=== PATIENT | female | born 1995 | race Caucasian/White ===

== ENCOUNTER 2020-08-12 05:39 | Inpatient (IN) | payer OTHER ==
[2020-08-12] MEDS ORDERED: KETOROLAC 30 MG/ML VIAL IM STA (06:35)
--- NOTE | 2020-08-12 06:38 | ED Physician Documentation ---
History of Present Illness - Stated complaint Stated Complaint: BACK PX - Chief complaint Chief Complaint: Back Pain - History obtained from History obtained from: Patient - Additonal information Additional information: 25-year-old woman with history of type 1 diabetes, gastroparesis, cyclic vomiting syndrome presents with nonbloody nonbilious nausea and vomiting and severe sudden onset left back pain radiating to the abdomen starting at rest while talking on the phone yesterday, waxing and waning but always present, better with movement and jiggling, sharp quality. Patient denies urinary sympt oms, fever, abdominal pain or diarrhea. LMP 2 days ago. Review of Systems Ten Systems: 10 systems reviewed and negative Constitutional: denies: Fever, Chills Cardiac: denies: Chest pain / pressure Respiratory: denies: Dyspnea GI: reports: Nausea, Vomiting. denies: Abdominal Pain Musculoskeletal: reports: Back pain PD PAST MEDICAL HISTORY - Past Medical History Past Medical History: Yes Endocrine/Autoimmune: Type 1 diabetes GI: Other Other Past Medical History: Gastroporesis; Cyclical vomiting from smoking marijuana. - Past Surgical History Past Surgical History: Yes General: Appendectomy - Present Medications Home Medications: Ambulatory Orders Medication Instructions Recorded Confirmed Insulin Glargine [Lantus Solostar] 15 units SUBQ QPM 08/12/20 08/12/20 Insulin Lispro [Humalog] SUBQ 08/12/20 Metoclopramide Inj [Reglan Inj] 5 mg PO DAILY 08/12/20 08/12/20 - Allergies Allergies/Adverse Reactions: Allergies Allergy/AdvReac Type Severity Reaction Status Date / Time ketorolac [From Toradol] Allergy Rash Verified 08/12/20 06:38 Milk Containing Products Allergy Unknown Verified 08/12/20 06:38 - Social History Does the pt smoke?: No Smoking Status: Never smoker Does the pt drink ETOH?: No Does the pt have substance abuse?: Yes Substance Use and Type: Marijuana - Immunizations Immunizations are current?: Yes - POLST Patient has POLST: No PD ED PE NORMAL - Vitals Vital signs reviewed: Yes - General General: Alert and oriented X 3, Other (patient continuously jiggling on the stretcher at rest, stating it makes her feel better. able to lie still for abdominal exam without difficulty.) - HEENT HEENT: Atraumatic, PERRL, EOMI - Neck Neck: Supple, no meningeal sign - Cardiac Cardiac: RRR - Respiratory Respiratory: No respiratory distress, Clear bilaterally - Abdomen Abdomen: Non tender, Non distended - Back Back: No CVA TTP, Other (L flank discomfort with palpation) - Derm Derm: Normal color, Warm and dry - Extremities Extremities: No deformity - Neuro Neuro: Alert and oriented X 3 - Psych Psych: Normal mood, Normal affect Results - Vitals Vitals: Vital Signs - 24 hr 08/12/20 08/12/20 05:50 07:43 Temperature 36.0 C L Heart Rate 116 H 109 H Respiratory 18 20 Rate Blood Pressure 128/73 113/63 O2 Saturation 99 100 Oxygen O2 Source Room air - Labs Labs: Laboratory Tests 08/12/20 08/12/20 08/12/20 06:35 06:35 07:15 WBC 9.9 RBC 4.18 L Hgb 10.5 L Hct 34.0 L MCV 81.3 MCH 25.1 L MCHC 30.9 L RDW 15.2 H Plt Count 329 MPV 8.9 Neut # (Auto) 7.6 H Lymph # (Auto) 1.8 [place] # (Auto) 0.5 Eos # (Auto) 0.0 Baso # (Auto) 0.0 Absolute Nucleated RBC 0.00 Nucleated RBC % 0.0 VBG pH VBG pCO2 VBG pO2 VBG HCO3 VBG Total CO2 VBG O2 Saturation VBG Base Excess Sodium Potassium Chloride Carbon Dioxide Anion Gap BUN Creatinine Estimated GFR (MDRD) Glucose POC Whole Bld Glucose Calcium Total Bilirubin AST ALT Alkaline Phosphatase Total Protein Albumin Globulin Albumin/Globulin Ratio Lipase Urine Color YELLOW Urine Clarity CLEAR Urine pH 5.5 Ur Specific [place] >=1.030 H Urine Protein NEGATIVE Urine Glucose (UA) 500 H Urine Ketones >=80 H Urine Occult Blood TRACE-INTA Urine Nitrite NEGATIVE Urine Bilirubin NEGATIVE Urine Urobilinogen 0.2 (NORMAL) Ur Leukocyte Esterase NEGATIVE Urine RBC 0-5 Urine WBC 0-3 Ur Squamous Epith Cells RARE Squamous Urine Bacteria Rare Urine Culture Comments NOT INDICATED Urine HCG, Qual NEGATIVE Urine Opiates Screen NEGATIVE Ur Oxycodone Screen NEGATIVE Urine Methadone Screen NEGATIVE Ur Propoxyphene Screen NEGATIVE Ur Barbiturates Screen NEGATIVE Ur Tricyclics Screen NEGATIVE Ur Phencyclidine Scrn NEGATIVE Ur Amphetamine Screen NEGATIVE U Methamphetamines Scrn NEGATIVE U Benzodiazepines Scrn NEGATIVE Urine Cocaine Screen NEGATIVE U Cannabinoids Screen POSITIVE H Serum Ketones 04/24/21 04/24/21 04/24/21 07:15 07:15 08:00 WBC RBC Hgb Hct MCV MCH MCHC RDW Plt Count MPV Neut # (Auto) Lymph # (Auto) [place] # (Auto) Eos # (Auto) Baso # (Auto) Absolute Nucleated RBC Nucleated RBC % VBG pH 7.252 L VBG pCO2 32.8 L VBG pO2 42.4 VBG HCO3 14.1 L VBG Total CO2 15.1 L VBG O2 Saturation 78.5 VBG Base Excess -11.9 L Sodium 135 Potassium 4.2 Chloride 103 Carbon Dioxide 12 L* Anion Gap 20.0 H BUN 12 Creatinine 0.7 Estimated GFR (MDRD) 101 Glucose 275 H POC Whole Bld Glucose Calcium 9.3 Total Bilirubin 1.8 H AST 17 ALT 16 Alkaline Phosphatase 90 Total Protein 7.5 Albumin 4.4 Globulin 3.1 Albumin/Globulin Ratio 1.4 Lipase 16 L Urine Color Urine Clarity Urine pH Ur Specific [place] Urine Protein Urine Glucose (UA) Urine Ketones Urine Occult Blood Urine Nitrite Urine Bilirubin Urine Urobilinogen Ur Leukocyte Esterase Urine RBC Urine WBC Ur Squamous Epith Cells Urine Bacteria Urine Culture Comments Urine HCG, Qual Urine Opiates Screen Ur Oxycodone Screen Urine Methadone Screen Ur Propoxyphene Screen Ur Barbiturates Screen Ur Tricyclics Screen Ur Phencyclidine Scrn Ur Amphetamine Screen U Methamphetamines Scrn U Benzodiazepines Scrn Urine Cocaine Screen U Cannabinoids Screen Serum Ketones MODERATE H 08/12/20 08:03 WBC RBC Hgb Hct MCV MCH MCHC RDW Plt Count MPV Neut # (Auto) Lymph # (Auto) [place] # (Auto) Eos # (Auto) Baso # (Auto) Absolute Nucleated RBC Nucleated RBC % VBG pH VBG pCO2 VBG pO2 VBG HCO3 VBG Total CO2 VBG O2 Saturation VBG Base Excess Sodium Potassium Chloride Carbon Dioxide Anion Gap BUN Creatinine Estimated GFR (MDRD) Glucose POC Whole Bld Glucose 270 H Calcium Total Bilirubin AST ALT Alkaline Phosphatase Total Protein Albumin Globulin Albumin/Globulin Ratio Lipase Urine Color Urine Clarity Urine pH Ur Specific [place] Urine Protein Urine Glucose (UA) Urine Ketones Urine Occult Blood Urine Nitrite Urine Bilirubin Urine Urobilinogen Ur Leukocyte Esterase Urine RBC Urine WBC Ur Squamous Epith Cells Urine Bacteria Urine Culture Comments Urine HCG, Qual Urine Opiates Screen Ur Oxycodone Screen Urine Methadone Screen Ur Propoxyphene Screen Ur Barbiturates Screen Ur Tricyclics Screen Ur Phencyclidine Scrn Ur Amphetamine Screen U Methamphetamines Scrn U Benzodiazepines Scrn Urine Cocaine Screen U Cannabinoids Screen Serum Ketones Procedures - General procedure General procedure: 22-gauge IV placed in the right forearm using ultrasound guidance, successful on the first attempt with blood return. PD MEDICAL DECISION MAKING - ED course ED course: 25-year-old woman with history of type 1 diabetes, gastroparesis, cyclic vomiting syndrome presents with nausea and left mid back pain. She has an DAYA form with 17 ED visits in the past year for back pain/abd pain/nausea/vomiting, but this is our first record of her visiting our ED. Will obtain urinalysis to eval for ketones or infection, reevaluate. d/w patient who states she actually was seen at [facility] yesterday for this same issue, had bloodwork and was given dilaudid. According to her DAYA I provided education regarding appropriate use of ED vs walk-in clinic/urgent care, encouraging follow up with her primary doctor. I offered social work evaluation and she accepted. d/w patient in regards to ketones and glucose in urine and need for further lab testing for complications of her diabetes. Mild hyperglycemia on cmp with low co2, possibly related to anxiety attack she reports having prior to arrival. Her nausea has improved with odt zofran. Still with jiggling behavior. Will eval serum ketones and pH. Patient meets criteria for euglycemic DKA, likely given her decreased po intake and vomiting 2/2 cyclic vomiting syndrome. Still with flank/back pain. I ordered a CT to eval for kidney stones but our tech says the CT scanner is down. Will do bedside sono to eval for hydro. Bedside sono with no evidence of hydro. d/w Dr. Angel who will admit to ICU. - Critical Care Time(min): 30 Time Includes: Direct patient care, Review records, Reassess patient, Document care, Coordinate care, Medical consult Data interpretation: Labs, Pulse ox Departure - Departure Disposition: 66 [facility] DC/Xfer Clinical Impression: Diabetic ketoacidosis, Back pain, Nausea Condition: Stable
[2020-08-12] MEDS ORDERED: ONDANSETRON ODT 4 MG TABLET TL STA (06:45)
[2020-08-12] MEDS ORDERED: IBUPROFEN 600 MG TABLET PO STA (06:45)
[2020-08-12 06:47] LABS: MUDS CUTOFF CONCENTRATIONS CUTOFF CONC BELOW:
[2020-08-12 06:48] LABS: BILIRUBIN,URINE NEGATIVE (NEGATIVE); GLUCOSE, URINE (UA) 500 mg/dL (NEGATIVE); KETONES,URINE (UA) >=80 mg/dL (NEGATIVE); NITRITE,URINE NEGATIVE (NEGATIVE); OCCULT BLOOD,URINE TRACE-INTA (NEGATIVE); PH,URINE 5.5 PH (5.0-7.5); PROTEIN,URINE NEGATIVE (NEGATIVE); UROBILINOGEN,URINE 0.2 (NORMAL) E.U./dL (NORMAL)
[2020-08-12 06:52] LABS: HCG UR QUAL NEGATIVE
[2020-08-12 06:59] LABS: AMPHETAMINE SCREEN,URINE NEGATIVE (NEGATIVE); BARBITURATE SCREEN,UR NEGATIVE (NEGATIVE); BENZODIAZEPINES SCREEN, URINE NEGATIVE (NEGATIVE); CLARITY,URINE CLEAR (CLEAR); COCAINE SCREEN URINE NEGATIVE (NEGATIVE); LEUKOCYTE ESTERASE, URINE NEGATIVE (NEGATIVE); METHADONE SCREEN, URINE NEGATIVE (NEGATIVE); METHAMPHETAMINES SCREEN, URINE NEGATIVE (NEGATIVE); OPIATE SCREEN, URINE NEGATIVE (NEGATIVE); OXYCODONE SCREEN, URINE NEGATIVE (NEGATIVE); PROPOXYPHENE SCREEN, URINE NEGATIVE (NEGATIVE); THC CANNABINOID SCREEN, URINE POSITIVE (NEGATIVE); TRICYCLIC ANTIDEPRESSANT,URINE NEGATIVE (NEGATIVE)
[2020-08-12 07:00] LABS: BACTERIA,URINE Rare /HPF (None Seen); RBC,URINE 0-5 /HPF (0-5); SQUAMOUS EPITHELIAL CELL,UR RARE Squamous (<= Few); WBC,URINE 0-3 /HPF (0-5)
[2020-08-12] MEDS ORDERED: hydrOXYzine PAMOATE 25 MG CAPSULE PO STA (07:07)
[2020-08-12 07:39] LABS: ALBUMIN 4.4 g/dL (3.2-5.5); ALBUMIN/GLOBULIN RATIO 1.4 (1.0-2.2); BILIRUBIN,TOTAL 1.8 mg/dL (0.2-1.0); CALCIUM 9.3 mg/dL (8.5-10.3); CREATININE 0.7 mg/dL (0.4-1.0); POTASSIUM 4.2 mmol/L (3.5-5.0); TOTAL PROTEIN 7.5 g/dL (6.7-8.2)
[2020-08-12] MEDS ORDERED: SODIUM CHLORIDE 0.9% 1,000 ML IV STA (07:47)
[2020-08-12 07:55] LABS: BASOPHILS % (AUTO) 0.2 %; EOSINOPHILS % (AUTO) 0.1 %; HGB - HEMOGLOBIN 10.5 g/dL (12.0-16.0); LYMPHOCYTES # (AUTO) 1.8 10^3/uL (1.5-3.5); LYMPHOCYTES % (AUTO) 18.2 %; MEAN CORPUSCULAR HEMOGLOBIN 25.1 pg (27.0-31.0); MEAN CORPUSCULAR HGB CONC 30.9 g/dL (32.0-36.0); MEAN CORPUSCULAR VOLUME 81.3 fL (81.0-99.0); MEAN PLATELET VOLUME 8.9 fL (7.9-10.8); MONOCYTES # (AUTO) 0.5 10^3/uL (0.0-1.0); MONOCYTES % (AUTO) 4.6 %; NEUTROPHILS # (AUTO) 7.6 10^3/uL (1.5-6.6); NEUTROPHILS % (AUTO) 76.4 %; PLT - PLATELET COUNT 329 10^3/uL (130-450); RED BLOOD COUNT 4.18 10^6/uL (4.20-5.40); RED CELL DISTRIBUTION WIDTH 15.2 % (12.0-15.0); WHITE BLOOD COUNT 9.9 x10^3/uL (4.8-10.8)
[2020-08-12 08:09] LABS: VBG BASE EXCESS -11.9 mmol/L (-2 - +2); VBG HCO3 14.1 mmol/L (23-28); VBG OXYGEN SATURATION 78.5 % (60-80); VBG PCO2 32.8 mmHg (41-51); VBG PH 7.252 (7.31-7.41); VBG PO2 42.4 mmHg (25-47); VBG TOTAL CO2 15.1 mmol/L (24-29)
[2020-08-12] MEDS ORDERED: METOCLOPRAMIDE 10 MG/2 ML VIAL IVP STA (08:17)
[2020-08-12] MEDS ORDERED: LORazepam 1 MG TABLET PO STA (08:17)
[2020-08-12] MEDS ORDERED: MORPHINE 2 MG/ML CARPUJECT IVP STA (08:17)
[2020-08-12] MEDS ORDERED: POTASSIUM CHLOR 20 MEQ/100 ML 20 MEQ/100 ML BAG IV ONE (08:29)
[2020-08-12] MEDS ORDERED: INSULIN REGULAR HUMAN 100 UNIT in SODIUM CHLORIDE 0.9% 100ML 99 ML IV STA (08:33)
[2020-08-12] MEDS: POTASSIUM CHLOR 10 MEQ/100 ML 10 MEQ/100 ML BAG IV SCH ×2 (08:45→09:45)
[2020-08-12] MEDS ORDERED: ACETAMINOPHEN 325 MG TABLET PO PRN (08:46)
[2020-08-12] MEDS ORDERED: HYDROmorphone 0.5 MG/0.5 ML SYRINGE IVP PRN (08:46)
[2020-08-12] MEDS ORDERED: PROCHLORPERAZINE 10 MG/2 ML VIAL IVP PRN (08:46)
[2020-08-12] MEDS ORDERED: SODIUM CHLORIDE FLUSH 0.9% 10 ML SYRINGE IVP PRN (08:46)
--- NOTE | 2020-08-12 08:58 | HISTORY & PHYSICAL EXAMINATION ---
History of Present Illness - Admitted From Admitted From:: ER - History of Present Illness HPI Comment/Other: This is a 25-year-old white female with no prior admissions here. She has a history of diabetes mellitus type 1, previous marijuana use, diagnosed with cyclical vomiting because of marijuana. She stopped using it and then resumed smoking marijuana 4 days ago. This resulted in nausea vomiting for which she went to [facility] ER 2 days ago. Apparently she had labs done but was sent home, not admitted there. She then developed back pain yesterday, which she gets with her prior episodes of cyclical vomiting and continued having nausea, vomiting, dry heaves and could keep nothing down, so came to our ER. Work-up in the ER shows that she is in DKA with a serum pH of 7.25, serum bicarb of 12, glucose of 275, moderate ketones present in the serum and the urine. Toxicology shows cannabis. Ultrasound retroperitoneal was done because of the back pain and this showed no hydronephrosis, no stones, is presumed to be her same symptom that she gets when she has cyclical nausea vomiting. A CT was not available (machine broken). Patient is being admitted to the ICU for DKA management. History - Past Medical History Endocrine/Autoimmune: reports: Type 1 diabetes GI: reports: Other Psych: reports: Anxiety MRSA Hx?: No Other Past Medical History: Gastroporesis; Cyclical vomiting from smoking marijuana. - Past Surgical History General: reports: Appendectomy - Family & Social History Family History: Mother: Alive and Well (1 gradparent has DM), Father: Alive and Well Living arrangement: At home Living Situation: With spouse/s.o. Social History Notes: No cigarette smoking history and no alcohol abuse history. 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 - Substance History Use: Uses substance without health or social issues: Cannabis - POLST Patient has POLST: No Meds/Allgy - Home Medications Home Medications: Ambulatory Orders Medication Instructions Recorded Confirmed Insulin Glargine [Lantus Solostar] 15 units SUBQ QPM 08/12/20 08/12/20 Insulin Lispro [Humalog] 0 units SUBQ .SLIDING SCALE 08/12/20 08/12/20 Metoclopramide Inj [Reglan Inj] 5 mg PO DAILY 08/12/20 08/12/20 - Allergies Allergies/Adverse Reactions: Allergies Allergy/AdvReac Type Severity Reaction Status Date / Time ketorolac [From Toradol] Allergy Rash Verified 08/12/20 06:38 Milk Containing Products Allergy Unknown Verified 08/12/20 06:38 Review of Systems - Constitutional Constitutional: reports: Weakness - Gastrointestinal Gastrointestinal: reports: Nausea, Vomiting - Musculoskeletal Musculoskeletal: reports: Back pain (This is her usual symptom, according to the patient, when she has cyclical nausea and vomiting. She "shakes" her body rhythmically, to distract herself from the back pain, her described.) - All Other Systems All Other Systems: reports: Reviewed and negative Exam - Vital Signs Vital Signs: Vital Signs x48h Temp Pulse Resp BP Pulse Ox 08/12/20 07:43 109 H 20 113/63 100 08/12/20 05:50 36.0 C L 116 H 18 128/73 99 - Physical Exam General Appearance: positive: Severe distress (She islaying in R lat decubitus position, rocking back and forth rapidly rhythmically but stops when her name is called) Eyes Bilateral: positive: Normal inspection, EOMI ENT: positive: Dry mucous membranes Neck: positive: Nml inspection, No JVD Respiratory: positive: No respiratory distress, Breath sounds nml Cardiovascular: positive: Regular rate & rhythm, No murmur Abdomen: positive: Non-tender, No distention, Other (No guarding or rebo undDiminished bowel sounds,) Back: positive: CVA tenderness (L) Skin: positive: Warm, Dry, Pallor Extremities: positive: Non-tender, No pedal edema Neurologic/Psychiatric: positive: Oriented x3 Conclusion/Plan - Problem List (1) Diabetic ketoacidosis Conclusion/Plan: The DKA protocol: IV saline, with D5 because her glucose is already near 200, IV insulin drip, titrate per protocol, follow serum ketones, serum pH, POC glucose. (2) Cyclical vomiting with nausea Conclusion/Plan: Continue with her scheduled Reglan for gastroparesis but also give antiemetics Zofran and Compazine alternating to control her symptom and continue IV fluids. Clear liquids will be started when she thinks she can try liquids orally. (3) Back pain Conclusion/Plan: She is in significant pain, it is in the left flank area. Will increase Dilaudid from every 6 hours prn to every 2 hours as needed. When the CT scanner is working (it was broken when she was in the ER), will order abdomen and pelvis CT with contrast, evaluating for pathology, specifically concerned about pyelonephritis, also pancreatitis. Qualifiers: Back pain laterality: left (4) Marijuana use Conclusion/Plan: The ER that she had restarted using it 4 days ago. Her told me she has not used since she quit. Cannabis was present on her toxicology screen. When she is more clinically stable, will request social work consult regarding discouraging marijuana use. (5) Gastroparesis diabeticorum Conclusion/Plan: She carries this diagnosis, per the records obtained from the ER/[facility] list/prior admissions at [facility] and [facility]. We will continue her Reglan scheduled, before meals (6) Anemia Conclusion/Plan: Potentially this is hemodilution all but will also evaluate for low levels of B12, folate and iron stores and replace if low. (7) Anxiety Conclusion/Plan: Per the ER provider, the patient was extremely anxious at presentation and needed to get Atarax which had no effect and then got Ativan and was able to relax. Currently she is agitated and in distress from pain. We will treat the underlying problem, using IV Dilaudid for pain control and anti-emetics for N/V. - Lab Results Fish Bones: 08/12/20 07:15 08/12/20 14:13
[2020-08-12] MEDS: D5NS W/20 MEQ KCL 1,000 ML IV SCH ×2 (09:00→17:00)
[2020-08-12] MEDS: INSULIN REGULAR HUMAN 100 UNIT in SODIUM CHLORIDE 0.9% 100ML 99 ML IV SCH (09:15)
[2020-08-12] MEDS: SODIUM CHLORIDE FLUSH 0.9% 10 ML SYRINGE IVP SCH ×3 (09:15→21:14)
[2020-08-12 09:54] LABS: BUN - BLOOD UREA NITROGEN 11 mg/dL (6-20); CALCIUM 8.5 mg/dL (8.5-10.3); CHLORIDE 104 mmol/L (101-111); CREATININE 0.7 mg/dL (0.4-1.0); GFR - MDRD 101 (>89); GLUCOSE 269 mg/dL (70-100); MAGNESIUM 1.8 mg/dL (1.7-2.8); POTASSIUM 4.3 mmol/L (3.5-5.0); SODIUM 133 mmol/L (135-145)
[2020-08-12 09:55] LABS: CARBON DIOXIDE - CO2 12 mmol/L (21-32); KETONES, SERUM (ACETEST) MODERATE (NEGATIVE)
[2020-08-12] MEDS: FAMOTIDINE 20 MG/2 ML VIAL IVP SCH ×2 (10:00→20:56)
[2020-08-12 10:19] LABS: B. PARAPERTUSSIS- RESP PCR PAN NOT DETECTED; B. PERTUSSIS- RESP PCR PANEL NOT DETECTED; C. PNEUMONIAE- RESP PCR PANEL NOT DETECTED; CORONAVIRUS 229E-RESP PCR NOT DETECTED; CORONAVIRUS HKU1-RESP PCR NOT DETECTED; CORONAVIRUS NL63-RESP PCR NOT DETECTED; CORONAVIRUS OC43-RESP PCR NOT DETECTED; HUMAN METAPNEUMOVIRUS NOT DETECTED; INFLUENZA A- RESP PCR PANEL NOT DETECTED; INFLUENZA B - RESP PCR PANEL NOT DETECTED; M. PNEUMONIAE- RESP PCR PANEL NOT DETECTED; PARAINFLUENZA VIRUS 1 NOT DETECTED; PARAINFLUENZA VIRUS 2 NOT DETECTED; PARAINFLUENZA VIRUS 3 NOT DETECTED; PARAINFLUENZA VIRUS 4 NOT DETECTED; RHINOVIRUS/ENTEROVIRUS NOT DETECTED; RSV- RESP PCR PANEL NOT DETECTED; SARS-CoV-2 -RESP PCR PANEL NOT DETECTED
[2020-08-12] MEDS: METOCLOPRAMIDE 10 MG/2 ML VIAL IVP SCH ×2 (10:55→16:07)
[2020-08-12 11:07] LABS: KETONES, SERUM (ACETEST) SMALL (NEGATIVE)
[2020-08-12 11:12] LABS: BUN - BLOOD UREA NITROGEN 10 mg/dL (6-20); CALCIUM 8.3 mg/dL (8.5-10.3); CARBON DIOXIDE - CO2 13 mmol/L (21-32); CHLORIDE 107 mmol/L (101-111); CREATININE 0.7 mg/dL (0.4-1.0); GFR - MDRD 101 (>89); GLUCOSE 190 mg/dL (70-100); POTASSIUM 4.5 mmol/L (3.5-5.0); SODIUM 133 mmol/L (135-145)
[2020-08-12 12:23] LABS: KETONES, SERUM (ACETEST) SMALL (NEGATIVE)
[2020-08-12 12:27] LABS: BUN - BLOOD UREA NITROGEN 10 mg/dL (6-20); CALCIUM 8.7 mg/dL (8.5-10.3); CARBON DIOXIDE - CO2 16 mmol/L (21-32); CHLORIDE 108 mmol/L (101-111); CREATININE 0.6 mg/dL (0.4-1.0); GFR - MDRD 121 (>89); GLUCOSE 118 mg/dL (70-100); MAGNESIUM 1.8 mg/dL (1.7-2.8); POTASSIUM 4.1 mmol/L (3.5-5.0); SODIUM 136 mmol/L (135-145)
[2020-08-12] MEDS ORDERED: POTASSIUM CHLOR 10 MEQ/100 ML 10 MEQ/100 ML BAG IV ONE (13:00)
[2020-08-12 13:18] LABS: VBG BASE EXCESS -8.8 mmol/L (-2 - +2); VBG HCO3 17.9 mmol/L (23-28); VBG OXYGEN SATURATION 73.7 % (60-80); VBG PCO2 41.8 mmHg (41-51); VBG PH 7.25 (7.31-7.41); VBG PO2 37.2 mmHg (25-47); VBG TOTAL CO2 19.2 mmol/L (24-29)
[2020-08-12 13:50] LABS: ESTIMATED AVERAGE GLUCOSE 200 mg/dL (70-100); HEMOGLOBIN A1c% 8.6 % (4.27-6.07)
[2020-08-12 14:23] LABS: KETONES, SERUM (ACETEST) SMALL (NEGATIVE)
[2020-08-12 14:25] LABS: GLUCOSE 85 mg/dL (70-100); POTASSIUM 4.3 mmol/L (3.5-5.0)
[2020-08-12] MEDS ORDERED: SODIUM CHLORIDE 0.9% 1,000 ML IV SCH (16:00)
[2020-08-12] MEDS: HYDROmorphone 0.5 MG/0.5 ML SYRINGE IVP PRN ×2 (16:05→21:12)
[2020-08-12 20:07] LABS: CALCIUM 8.8 mg/dL (8.5-10.3); CREATININE 0.5 mg/dL (0.4-1.0); POTASSIUM 3.9 mmol/L (3.5-5.0)
[2020-08-12] MEDS ORDERED: INSULIN GLARGINE 300 UNIT/3 ML PEN SUBQ SCH (21:00)
[2020-08-13] MEDS: HYDROmorphone 0.5 MG/0.5 ML SYRINGE IVP PRN ×4 (02:38→22:18)
[2020-08-13] MEDS: ONDANSETRON 4 MG/2 ML VIAL IVP PRN ×3 (04:51→22:21)
[2020-08-13 05:01] LABS: BASOPHILS % (AUTO) 0.1 %; HCT - HEMATOCRIT 30.1 % (37.0-47.0); HGB - HEMOGLOBIN 9.5 g/dL (12.0-16.0); LYMPHOCYTES # (AUTO) 2.7 10^3/uL (1.5-3.5); LYMPHOCYTES % (AUTO) 39.8 %; MEAN CORPUSCULAR HEMOGLOBIN 25.5 pg (27.0-31.0); MEAN CORPUSCULAR HGB CONC 31.6 g/dL (32.0-36.0); MEAN CORPUSCULAR VOLUME 80.7 fL (81.0-99.0); MEAN PLATELET VOLUME 8.4 fL (7.9-10.8); MONOCYTES # (AUTO) 0.8 10^3/uL (0.0-1.0); MONOCYTES % (AUTO) 12.2 %; NEUTROPHILS # (AUTO) 3.2 10^3/uL (1.5-6.6); NEUTROPHILS % (AUTO) 47.6 %; PLT - PLATELET COUNT 274 10^3/uL (130-450); RED BLOOD COUNT 3.73 10^6/uL (4.20-5.40); RED CELL DISTRIBUTION WIDTH 15.1 % (12.0-15.0); WHITE BLOOD COUNT 6.8 x10^3/uL (4.8-10.8)
[2020-08-13 05:04] LABS: KETONES, SERUM (ACETEST) SMALL (NEGATIVE)
[2020-08-13 05:11] LABS: BUN - BLOOD UREA NITROGEN 5 mg/dL (6-20); CALCIUM 8.4 mg/dL (8.5-10.3); CARBON DIOXIDE - CO2 21 mmol/L (21-32); CHLORIDE 105 mmol/L (101-111); CREATININE 0.5 mg/dL (0.4-1.0); GFR - MDRD 149 (>89); GLUCOSE 82 mg/dL (70-100); LIPASE 17 U/L (22-51); POTASSIUM 3.3 mmol/L (3.5-5.0); SODIUM 136 mmol/L (135-145)
[2020-08-13] MEDS ORDERED: POTASSIUM PHOSPHATE 15 MMOL in SODIUM CHLORIDE 0.9% 250 ML IV ONE (05:57)
[2020-08-13] MEDS: INSULIN REGULAR HUMAN 100 UNIT in SODIUM CHLORIDE 0.9% 100ML 99 ML IV SCH (06:12)
[2020-08-13] MEDS: METOCLOPRAMIDE 10 MG/2 ML VIAL IVP SCH ×2 (06:25→11:00)
[2020-08-13] MEDS ORDERED: POTASSIUM CHLORIDE 20 MEQ TABLET PO ONE (08:00)
[2020-08-13] MEDS ORDERED: POTASSIUM CHLORIDE 20 MEQ/15 ML UDC PO SCH (08:15)
[2020-08-13] MEDS: SODIUM CHLORIDE FLUSH 0.9% 10 ML SYRINGE IVP SCH ×2 (08:23→17:01)
[2020-08-13] MEDS: FAMOTIDINE 20 MG/2 ML VIAL IVP SCH (08:23)
--- NOTE | 2020-08-13 08:32 | PROVIDER PROGRESS NOTE ---
Assessment/Plan - Problem List (1) Diabetes mellitus, insulin dependent (IDDM), uncontrolled Assessment/Plan: Her DKA has resolved. She can be moved out of the ICU to [facility] status. Her A1c came back at 8.6 indicating fair control of glucose. We will institute her long-acting insulin and continue sliding scale insulin, advance her diet with each meal. (2) Cyclical vomiting with nausea Assessment/Plan: N/V has resolved at rest, but nausea present whem she tries to take food (pureed). Will advance her diet as tolerated. Start carb controlled diet. We will order social work consult regarding stopping marijuana use which causes her cyclical vomiting. (3) Back pain Qualifiers: Back pain laterality: left Assessment/Plan: The CT abdomen was benign (showed that her appendix is out and has an IUD). She is still getting mild pain in that area and describes, in more detail today, that this happens to her after she has been vomiting and dry retching a long time, in the past. Continue iv Dilaudid prn pain. Continue anti-emetics iv prn nausea. (4) Marijuana use Assessment/Plan: This has been documented to cause her cyclical vomiting. We will order social work consult to assist in helping with this possible addiction. (5) Gastroparesis diabeticorum Assessment/Plan: Her symptom of nausea whenever she tries to swallow (pured food), is likely from gastroparesis and the recent DKA. Reglan AC has been ordered IV Will change to p.o. and continue it (6) Anemia Assessment/Plan: Serum B12, folate levels and iron stores were checked and showed adequate B12, Folate and iron stores. This is hemodilutional therefore. (7) Anxiety Assessment/Plan: According to the ER provider she was very anxious at admission. Social work to please address this as well (8) Diabetic ketoacidosis Assessment/Plan: Resolved - Current Meds Current Meds: Current Medications Generic Name Dose Route Start Last Admin Trade Name Freq PRN Reason Stop Dose Admin Famotidine 20 mg 08/12/20 09:00 08/13/20 08:23 Famotidine 20 Mg/2 Ml Vial IVP 20 mg BID LETICIA Administration Hydromorphone HCl 0.5 mg 08/12/20 15:53 08/13/20 06:54 Hydromorphone 0.5 Mg/0.5 Ml Syringe IVP 0.5 mg Q2H PRN Administration Pain 8 to 10 Insulin Human Regular 100 unit 100 mls @ 5.352 mls/hr 08/12/20 09:00 08/13/20 06:12 / Sodium Chloride IV Not Given .[id number] LETICIA Protocol 5.352 UNIT/HR Potassium Phosphate 15 mmol/ 255 mls @ 63 mls/hr 08/13/20 05:57 08/13/20 06:25 Sodium Chloride IV 08/13/20 09:59 63 mls/hr ONCE ONE Administration Protocol Metoclopramide HCl 5 mg 08/12/20 11:00 08/13/20 06:25 Metoclopramide 10 Mg/2 Ml Vial IVP 5 mg AC LETICIA Administration Ondansetron HCl 4 mg 08/12/20 08:46 08/13/20 04:51 Ondansetron 4 Mg/2 Ml Vial IVP 4 mg Q6HR PRN Administration Nausea / Vomiting Sodium Chloride 10 ml 08/12/20 09:00 08/13/20 08:23 Sodium Chloride Flush 0.9% 10 Ml Syringe IVP 10 ml 0100,0900,1700 LETICIA Administration - Lab Result Fish Bone Diagrams: 08/13/20 04:43 08/13/20 04:43 - Additional Planning My Orders: My Active Orders 08/12/20 08:46 Activity Orders [RC] Q2HR Blood Glucose POC [RC] 0000,0600,1200,1800 Daily Weight [RC] 0600 IO [RC] Q1HR Initiate Bowel Care Protocol [RC] QSHIFT Initiate ICU Electrolyte Prot. [RC] .protocol Initiate Personal Care Protoco [RC] .protocol Turn and Reposition [RC] PRN Vital Signs [RC] Q4HR Acetaminophen [Tylenol] 650 mg PO Q4HR PRN Ondansetron Inj [Zofran Inj] 4 mg IVP Q6HR PRN Prochlorperazine Inj [Compazine Inj] 10 mg IVP Q6HR PRN Sodium Chloride Flush 0.9% [Normal Saline Flush 0.9%] 10 ml IVP PRN PRN Code Status [OTHERS] Routine Condition of Patient [OTHERS] Routine DVT Prophylaxis [OTHERS] Routine 08/12/20 08:48 Oxygen Therapy [RC] .PRN Telemetry- [RC] Q4HR 08/12/20 08:49 HARRY Perez [] QSHIFT 08/12/20 08:50 Initiate Line Care Protocol [] [facility] 08/12/20 08:51 Initiate DKA RN Protocol [RC] .protocol Initiate Hypoglycemia Protocol [RC] .protocol Notify Provider - Specific Ins [RC] PRN Straight Catheter Insertion [] PRN 08/12/20 09:00 Famotidine [Pepcid] 20 mg IVP BID Sodium Chloride 0.9% 100Ml [Normal Saline 0.9% 100Ml] 99 ml Insulin Regular Human [NovoLIN R] 100 unit IV 5.352 unit/hr Sodium Chloride Flush 0.9% [Normal Saline Flush 0.9%] 10 ml IVP 0100,0900,1700 08/12/20 11:00 Metoclopramide Inj [Reglan Inj] 5 mg IVP AC 08/12/20 15:53 HYDROmorphone 0.5MG SYRINGE [Dilaudid Inj Syringe] 0.5 mg IVP Q2H PRN 08/12/20 Dinner Clear Liquid Diet [DIET] 08/13/20 05:57 Potassium Phosphate 15 mmol Sodium Chloride 0.9% [Normal Saline 0.9%] 250 ml IV ONCE 08/13/20 08:30 Miscellaenous Nursing Order [] [facility] 08/13/20 Lunch Dysphagia Puree Diet [DIET] 08/13/20 Dinner DIET [Soft (Low Fiber) Diet] [DIET] 08/14/20 05:00 BMP - BASIC METABOLIC PANEL [CHEM] DAILYLAB CBC - COMP BLD CT W/AUTO DIFF [HEME] DAILYLAB MAGNESIUM [CHEM] DAILYLAB PHOSPHORUS [CHEM] DAILYLAB 08/15/20 05:00 CBC - COMP BLD CT W/AUTO DIFF [HEME] DAILYLAB MAGNESIUM [CHEM] DAILYLAB Subjective - Subjective Patient Reports: Feeling Better (Still nauseated when tries to eat (pureed food). No more L flank pain.) Objective Vital Signs: Vital Signs - 24 hr 08/12/20 08/12/20 08/12/20 09:20 10:00 12:00 Temperature 36.8 C Heart Rate [ 83 85 90 Monitoring electrodes] Respiratory 16 16 17 Rate Blood Pressure 116/70 95/61 122/86 H [Left Brachial artery] Blood Pressure [Right Brachial artery] O2 Saturation 100 99 99 08/12/20 08/12/20 08/12/20 15:00 17:56 19:17 Temperature 36.6 C 98.3 C H 36.8 C Heart Rate [ 92 87 91 Monitoring electrodes] Respiratory 14 16 17 Rate Blood Pressure 102/67 105/76 109/76 [Left Brachial artery] Blood Pressure [Right Brachial artery] O2 Saturation 100 99 100 08/12/20 08/12/20 08/13/20 21:04 23:32 02:38 Temperature 36.9 C 36.4 C L 98.6 C H Heart Rate [ 87 97 105 H Monitoring electrodes] Respiratory 21 15 26 H Rate Blood Pressure 116/79 [Left Brachial artery] Blood Pressure 122/80 115/83 H [Right Brachial artery] O2 Saturation 100 100 100 08/13/20 05:00 Temperature Heart Rate [ 72 Monitoring electrodes] Respiratory 14 Rate Blood Pressure [Left Brachial artery] Blood Pressure 131/87 H [Right Brachial artery] O2 Saturation 100 Oxygen O2 Source Room air I&O (Last 24 Hrs): Intake and Output Totals x24h 08/11/20 08/12/20 08/13/20 23:59 23:59 23:59 Intake Total 3873.664 342.767 Output Total 0 0 Balance 3873.664 342.767 General: Alert, Oriented x3 HEENT: Mucous membr. moist/pink Neck: Supple, No JVD Neuro: Alert, Non Focal Cardiovascular: Regular rate, No murmurs Respiratory: No respiratory distress Abdomen: Soft, No tenderness Extremities: No edema - Results Results: Laboratory Results WBC 6.8 x10^3/uL (4.8-10.8) 08/13/20 04:43 RBC 3.73 10^6/uL (4.20-5.40) L 08/13/20 04:43 Hgb 9.5 g/dL (12.0-16.0) L 08/13/20 04:43 Hct 30.1 % (37.0-47.0) L 08/13/20 04:43 MCV 80.7 fL (81.0-99.0) L 08/13/20 04:43 MCH 25.5 pg (27.0-31.0) L 08/13/20 04:43 MCHC 31.6 g/dL (32.0-36.0) L 08/13/20 04:43 RDW 15.1 % (12.0-15.0) H 08/13/20 04:43 Plt Count 274 10^3/uL (130-450) 08/13/20 04:43 MPV 8.4 fL (7.9-10.8) 08/13/20 04:43 Neut # (Auto) 3.2 10^3/uL (1.5-6.6) 08/13/20 04:43 Lymph # (Auto) 2.7 10^3/uL (1.5-3.5) 08/13/20 04:43 [place] # (Auto) 0.8 10^3/uL (0.0-1.0) 08/13/20 04:43 Eos # (Auto) 0.0 10^3/uL (0.0-0.7) 08/13/20 04:43 Baso # (Auto) 0.0 10^3/uL (0.0-0.1) 08/13/20 04:43 Absolute Nucleated RBC 0.00 x10^3/uL 08/13/20 04:43 Nucleated RBC % 0.0 /100WBC 08/13/20 04:43 VBG pH 7.250 (7.31-7.41) L 08/12/20 13:09 VBG pCO2 41.8 mmHg (41-51) 08/12/20 13:09 VBG pO2 37.2 mmHg (25-47) 08/12/20 13:09 VBG HCO3 17.9 mmol/L (23-28) L 08/12/20 13:09 VBG Total CO2 19.2 mmol/L (24-29) L 08/12/20 13:09 VBG O2 Saturation 73.7 % (60-80) 08/12/20 13:09 VBG Base Excess -8.8 mmol/L (-2 - +2) L 08/12/20 13:09 Sodium 136 mmol/L (135-145) 08/13/20 04:43 Potassium 3.3 mmol/L (3.5-5.0) L 08/13/20 04:43 Chloride 105 mmol/L (101-111) 08/13/20 04:43 Carbon Dioxide 21 mmol/L (21-32) 08/13/20 04:43 Anion Gap 10.0 (6-13) 08/13/20 04:43 BUN 5 mg/dL (6-20) L 08/13/20 04:43 Creatinine 0.5 mg/dL (0.4-1.0) 08/13/20 04:43 Estimated GFR (MDRD) 149 (>89) 08/13/20 04:43 Glucose 82 mg/dL (70-100) 08/13/20 04:43 POC Whole Bld Glucose 103 mg/dL (70 - 100) H 08/13/20 08:05 Estimat Average Glucose 200 mg/dL (70-100) H 08/12/20 07:15 Hemoglobin A1c % 8.6 % (4.27-6.07) H 08/12/20 07:15 Calcium 8.4 mg/dL (8.5-10.3) L 08/13/20 04:43 Phosphorus 2.0 mg/dL (2.5-4.6) L 08/13/20 04:43 Magnesium 1.8 mg/dL (1.7-2.8) 08/13/20 04:43 Total Bilirubin 1.8 mg/dL (0.2-1.0) H 08/12/20 07:15 AST 17 IU/L (10-42) 08/12/20 07:15 ALT 16 IU/L (10-60) 08/12/20 07:15 Alkaline Phosphatase 90 IU/L (42-121) 08/12/20 07:15 Total Protein 7.5 g/dL (6.7-8.2) 08/12/20 07:15 Albumin 4.4 g/dL (3.2-5.5) 08/12/20 07:15 Globulin 3.1 g/dL (2.1-4.2) 08/12/20 07:15 Albumin/Globulin Ratio 1.4 (1.0-2.2) 08/12/20 07:15 Lipase 17 U/L (22-51) L 08/13/20 04:43 Urine Color YELLOW 08/12/20 06:35 Urine Clarity CLEAR (CLEAR) 08/12/20 06:35 Urine pH 5.5 PH (5.0-7.5) 08/12/20 06:35 Ur Specific Hiram >=1.030 (1.002-1.030) H 08/12/20 06:35 Urine Protein NEGATIVE mg/dL (NEGATIVE) 08/12/20 06:35 Urine Glucose (UA) 500 mg/dL (NEGATIVE) H 08/12/20 06:35 Urine Ketones >=80 mg/dL (NEGATIVE) H 08/12/20 06:35 Urine Occult Blood TRACE-INTA (NEGATIVE) 08/12/20 06:35 Urine Nitrite NEGATIVE (NEGATIVE) 08/12/20 06:35 Urine Bilirubin NEGATIVE (NEGATIVE) 08/12/20 06:35 Urine Urobilinogen 0.2 (NORMAL) E.U./dL (NORMAL) 08/12/20 06:35 Ur Leukocyte Esterase NEGATIVE (NEGATIVE) 08/12/20 06:35 Urine RBC 0-5 /HPF (0-5) 08/12/20 06:35 Urine WBC 0-3 /HPF (0-5) 08/12/20 06:35 Ur Squamous Epith Cells RARE Squamous (<= Few) 08/12/20 06:35 Urine Bacteria Rare /HPF (None Seen) 08/12/20 06:35 Urine Culture Comments NOT INDICATED 08/12/20 06:35 Urine HCG, Qual NEGATIVE 08/12/20 06:35 Nasal Adenovirus (PCR) NOT DETECTED 08/12/20 09:05 Nasal B. parapertussis DNA (PCR) NOT DETECTED 08/12/20 09:05 Nasal Coronavir 229E PCR NOT DETECTED 08/12/20 09:05 Nasal Coronavir HKU1 PCR NOT DETECTED 08/12/20 09:05 Nasal Coronavir NL63 PCR NOT DETECTED 08/12/20 09:05 Nasal Coronavir OC43 PCR NOT DETECTED 08/12/20 09:05 Nasal Enterovir/Rhinovir PCR NOT DETECTED 08/12/20 09:05 Nasal Influenza B PCR NOT DETECTED 08/12/20 09:05 Nasal Influenza A PCR NOT DETECTED 08/12/20 09:05 Nasal Parainfluen 1 PCR NOT DETECTED 08/12/20 09:05 Nasal Parainfluen 2 PCR NOT DETECTED 08/12/20 09:05 Nasal Parainfluen 3 PCR NOT DETECTED 08/12/20 09:05 Nasal Parainfluen 4 PCR NOT DETECTED 08/12/20 09:05 Nasal RSV (PCR) NOT DETECTED 08/12/20 09:05 Nasal Screen MRSA (PCR) NEGATIVE (NEGATIVE) 08/12/20 09:30 Nasal B.pertussis DNA PCR NOT DETECTED 08/12/20 09:05 Nasal C.pneumoniae (PCR) NOT DETECTED 08/12/20 09:05 Kvng Human Metapneumo PCR NOT DETECTED 08/12/20 09:05 Nasal M.pneumoniae (PCR) NOT DETECTED 08/12/20 09:05 Nasal SARS-CoV-2 (PCR) NOT DETECTED 08/12/20 09:05 Urine Opiates Screen NEGATIVE (NEGATIVE) 08/12/20 06:35 Ur Oxycodone Screen NEGATIVE (NEGATIVE) 08/12/20 06:35 Urine Methadone Screen NEGATIVE (NEGATIVE) 08/12/20 06:35 Ur Propoxyphene Screen NEGATIVE (NEGATIVE) 08/12/20 06:35 Ur Barbiturates Screen NEGATIVE (NEGATIVE) 08/12/20 06:35 Ur Tricyclics Screen NEGATIVE (NEGATIVE) 08/12/20 06:35 Ur Phencyclidine Scrn NEGATIVE (NEGATIVE) 08/12/20 06:35 Ur Amphetamine Screen NEGATIVE (NEGATIVE) 08/12/20 06:35 U Methamphetamines Scrn NEGATIVE (NEGATIVE) 08/12/20 06:35 U Benzodiazepines Scrn NEGATIVE (NEGATIVE) 08/12/20 06:35 Urine Cocaine Screen NEGATIVE (NEGATIVE) 08/12/20 06:35 U Cannabinoids Screen POSITIVE (NEGATIVE) H 08/12/20 06:35 Serum Ketones SMALL (NEGATIVE) H 08/13/20 04:43
[2020-08-13 09:57] LABS: % IRON SATURATION 14 % (20-50); IRON 67 ug/dL (28-170); TOTAL IRON BINDING CAPACITY 469 ug/dL (250-450); TRANSFERRIN 335 mg/dL (192-382)
[2020-08-13 10:08] LABS: FOLATE 17.69 ng/mL (5.90 - >24.8)
--- NOTE | 2020-08-13 10:29 | CT Report ---
PROCEDURE: Abdomen/Pelvis WO INDICATIONS: ABD PAIN, FLANK PAIN TECHNIQUE: Noncontrast 5 mm thick sections acquired from the diaphragms to the symphysis. 5 mm coronal and sagi ttal reformats were then performed. For radiation dose reduction, the following was used: automated exposure control, adjustment of mA and/or kV according to patient size. COMPARISON: None. FINDINGS: Image quality: Excellent. ABDOMEN: Lung bases: Lung bases are clear. Heart size is normal. Solid organs: Liver and spleen are normal in size. Gallbladder wall does not appear thickened. P ancreas is normal in contours. No adrenal nodules. Kidneys are normal in size, without hydronephros is or nephrolithiasis. Peritoneum and bowel: Unenhanced bowel loops demonstrate normal wall thickness and caliber. No free fluid or air. Appendectomy clips are seen. Nodes and vessels: No retroperitoneal or mesenteric adenopathy by size criteria. Aorta and inferior vena cava are normal in caliber. Miscellaneous: No ventral hernias. PELVIS: Genitourinary: Bladder wall thickness is normal. An IUD is seen at the expected location. Miscellaneous: No inguinal hernias or adenopathy. Bones: No suspicious bony lesions. No vertebral body compression fractures. IMPRESSION: No acute abnormality is seen to explain the patient's presenting history of flank pain. No findings o f stones or hydronephrosis can be seen. Incidental note is made of: Appendectomy IUD Reviewed by: Andrei Wilson MD on 08/13/2020 9:28 AM ROSENDO Approved by: Andrei Wilson MD on 08/13/2020 9:28 AM AKANNETTE Station ID: [id number]
[2020-08-13] MEDS: INSULIN ASPART 300 UNIT/3 ML PEN SUBQ SCH ×3 (11:50→20:41)
[2020-08-13] MEDS: NS W/20 MEQ KCL 1,000 ML IV SCH (13:40)
--- NOTE | 2020-08-13 13:45 | CONSULTATION NOTE ---
Consultation Report: Called by cook supervisor in regards to IV access. Both patient IV access lost. Previous IVs placed in ER under US guidance. I attempted Multiple attempts x8 to both arms with no success. Discussed with Hospitalist about possible central line as I was unsuccessful placing PIV. I suggested IJ position d/t lack of appropriate site for upper extremity PICC. Hospitalist preferred to not proceed with CVC at this time. Able to place 22 ga PIV to right foot. Patient tolerated all procedures well. PIV dressed and taped very well. Patient and RN notified to be extra cautious with PIV. Discussed with RN that if anesthesia consulted again for IV access that a CVC would be needed
[2020-08-13] MEDS: METOCLOPRAMIDE 10 MG TABLET PO SCH ×2 (16:09→20:40)
[2020-08-13] MEDS: FAMOTIDINE 20 MG TABLET PO SCH ×2 (20:39→20:46)
[2020-08-13] MEDS ORDERED: INSULIN GLARGINE 300 UNIT/3 ML PEN SUBQ SCH (21:00)
[2020-08-14] MEDS: SODIUM CHLORIDE FLUSH 0.9% 10 ML SYRINGE IVP SCH ×2 (00:48→09:08)
[2020-08-14] MEDS: NS W/20 MEQ KCL 1,000 ML IV SCH (00:55)
[2020-08-14] MEDS ORDERED: DEXTROSE GEL 37.5 GM TUBE PO ONE (04:05)
[2020-08-14] MEDS ORDERED: DEXTROSE GEL 37.5 GM TUBE ONE (04:15)
[2020-08-14] MEDS ORDERED: DEXTROSE 50% ABBOJECT 25 GM/50 ML SYRINGE IVP ONE (04:23)
[2020-08-14] MEDS ORDERED: ONDANSETRON 4 MG/2 ML VIAL ONE (04:24)
[2020-08-14] MEDS ORDERED: DEXTROSE 50% ABBOJECT 25 GM/50 ML SYRINGE ONE (04:24)
[2020-08-14] MEDS: ONDANSETRON 4 MG/2 ML VIAL IVP PRN (04:37)
[2020-08-14] MEDS: HYDROmorphone 0.5 MG/0.5 ML SYRINGE IVP PRN (04:37)
[2020-08-14 05:03] LABS: EOSINOPHILS # (AUTO) 0.1 10^3/uL (0.0-0.7); EOSINOPHILS % (AUTO) 1.3 %; HGB - HEMOGLOBIN 11.1 g/dL (12.0-16.0); LYMPHOCYTES # (AUTO) 3.1 10^3/uL (1.5-3.5); LYMPHOCYTES % (AUTO) 49.6 %; MEAN CORPUSCULAR HEMOGLOBIN 25.3 pg (27.0-31.0); MEAN CORPUSCULAR HGB CONC 31.7 g/dL (32.0-36.0); MEAN CORPUSCULAR VOLUME 79.7 fL (81.0-99.0); MEAN PLATELET VOLUME 8.5 fL (7.9-10.8); MONOCYTES # (AUTO) 0.7 10^3/uL (0.0-1.0); MONOCYTES % (AUTO) 10.6 %; NEUTROPHILS # (AUTO) 2.4 10^3/uL (1.5-6.6); NEUTROPHILS % (AUTO) 38.3 %; PLT - PLATELET COUNT 329 10^3/uL (130-450); RED BLOOD COUNT 4.39 10^6/uL (4.20-5.40); RED CELL DISTRIBUTION WIDTH 14.9 % (12.0-15.0); WHITE BLOOD COUNT 6.3 x10^3/uL (4.8-10.8)
[2020-08-14 05:18] LABS: BUN - BLOOD UREA NITROGEN < 5 mg/dL (6-20); CALCIUM 9.2 mg/dL (8.5-10.3); CARBON DIOXIDE - CO2 22 mmol/L (21-32); CHLORIDE 99 mmol/L (101-111); CREATININE 0.5 mg/dL (0.4-1.0); GFR - MDRD 149 (>89); GLUCOSE 216 mg/dL (70-100); MAGNESIUM 1.8 mg/dL (1.7-2.8); PHOSPHORUS 2.5 mg/dL (2.5-4.6); POTASSIUM 3.1 mmol/L (3.5-5.0); SODIUM 138 mmol/L (135-145)
[2020-08-14] MEDS: METOCLOPRAMIDE 10 MG TABLET PO SCH ×2 (06:55→11:19)
[2020-08-14] MEDS ORDERED: POTASSIUM CHLORIDE 20 MEQ TABLET PO ONE (08:00)
[2020-08-14] MEDS ORDERED: POTASSIUM CHLOR 10 MEQ/100 ML 10 MEQ/100 ML BAG IV SCH (08:00)
[2020-08-14] MEDS: INSULIN ASPART 300 UNIT/3 ML PEN SUBQ SCH ×2 (08:10→11:48)
[2020-08-14] MEDS: FAMOTIDINE 20 MG TABLET PO SCH (09:22)
[2020-08-14] MEDS: POTASSIUM CHLOR 10 MEQ/100 ML 10 MEQ/100 ML BAG IV SCH ×2 (10:10→12:13)
[2020-08-14] MEDS ORDERED: ONDANSETRON ODT 4 MG TABLET TL SCH (12:46)
--- NOTE | 2020-08-14 14:01 | Discharge Plan ---
Discharge Plan Problem Reviewed?: Yes Disposition: Home, Self Care Condition: Fair Diet: Diabetic Activity Restrictions: Activity as Tolerated Shower Restrictions: No Instruction Topics: Metoclopramide injection, Ondansetron injection, Famotidine injection, Hydromorphone injection Health Concerns: You were admitted with DKA, needed IV insulin drip. You were very dehydrated. The pain in your left flank was imaged by CT, no stone or kidney infection was seen. Your persistent nausea and vomiting are partly related to gastroparesis. You are being discharged and advised to use your Reglan and the Zofran under the tongue, and to stay well-hydrated. Decreased your nighttime insulin to 8 units while your glucose and calorie intake is so low. Keep the appointment regarding management of your diabetes with an insulin pump. Plan of Treatment: As above. Care Goals: Symptoms and stabilization are the goals. Assessment: The patient understands and is agreeable with the plan. No Smoking: If you smoke, Please STOP! Call for help. Follow-up with: CARL CLARKE MD [Primary Care Provider] -
[2020-08-14 14:03] VITALS: BP 133/91
--- NOTE | 2020-08-14 14:05 | DISCHARGE SUMMARY ---
Discharge Summary Admit Date: 08/12/20 Discharge Date: 08/14/20 Discharging Provider: Dr Hali Walker Primary Care Provider: Dr eDlonte Trevino Condition at Discharge: Fair Discharge Disposition: 01 Home, Self Care - HPI History of Present Illness: This is a 25-year-old white female with no prior admissions here. She has a history of diabetes mellitus type 1, previous marijuana use, diagnosed with cyclical vomiting because of marijuana. She stopped using it and then resumed smoking marijuana 4 days ago. This resulted in nausea vomiting for which she went to [facility] ER 2 days ago. Apparently she had labs done but was sent home, not admitted there. She then developed back pain yesterday, which she told us, she gets with her prior episodes of cyclical vomiting, and she continued having nausea, vomiting, dry heaves and could keep nothing down, so came to our ER. Work-up in the ER shows that she is in DKA with a serum pH of 7.25, serum bicarb of 12, glucose of 275, moderate ketones present in the serum and the urine. Toxicology shows cannabis. The ER Provider reported that ultrasound retroperitoneal was done because of the back pain and this showed no hydronephrosis, no stones. The back pain is presumed to be her same symptom that she gets when she has cyclical nausea vomiting. A CT was not available (machine broken). Patient is being admitted to the ICU for DKA management. - HOSPITAL COURSE Hospital Course: (1) Diabetic ketoacidosis She was started on a DKA protocol and received IV Insulin drip, close glucose and ketone monitoring, and aggressive IV fluid resuscitation. By the following day, she was out of ketoacidosis. (2) Diabetes mellitus, insulin dependent (IDDM), uncontrolled Her A1c came back at 8.6 indicating fair control of glucose. We resumed her long-acting insulin and continued a sliding scale insulin for coverage as we advanced her diet to pureed. She still had N/V each day and had a low glu of 30 one morning, which needed treatment. She was seen in consult by our Cloud Physicist, who advised slowly advancing to a diet she tolerates (bananas and Boost clear). She was discharged with advice to decrease her Lantus from 15U to 8U, while her intake is poor. The patient has an appointment to start an Insulin Pump in 1 week, she reported. (3) Cyclical vomiting with nausea She was prescribed iv anti-emetics and iv Reglan AC was ordered and we started Zofran sublingual pre-meals, which helped slightly. Her N/V slowly improved. We advanced her diet to a pureed, carb controlled diet. After a warm shower, she kept her Boost and banana down and insisted on being discharged, to manage her symptoms at home, in ways that work for her. (4) Back pain Since no ultrasound was documented, she underwent a CT abdomen which was benign (it showed that her appendix is out and she has an IUD). She was still getting mild pain in that left flank area the next day and described, in more detail, that this happens to her after she has been vomiting and retching a long time. She received iv Dilaudid prn pain and prn anti-emetics. She requested no narcotics at discharge. (5) Marijuana use This has been documented to cause her cyclical vomiting. Fiberline Supervisor saw her in consult to assist in helping with this possible addiction. She told the SW that she will try to avoid marijuana because she does not like feeling like this. The only thing that helps her, she said, was taking a long, warm shower. (6) Gastroparesis diabeticorum As per history. Reglan AC was ordered IV and we started Zofran sublingual pre- meals, which helped slightly. (7) Anemia Serum B12, folate levels and iron stores were checked and showed adequate B12, Folate and iron stores. This was hemodilutional anemia or anemia of chronic disease, therefore. (8) Anxiety According to the ER provider she was very anxious at admission. She is on no medications for this. - ALLERGIES Allergies/Adverse Reactions: Allergies Allergy/AdvReac Type Severity Reaction Status Date / Time ketorolac [From Toradol] Allergy Rash Verified 08/12/20 06:38 Milk Containing Products Allergy Unknown Verified 08/12/20 06:38 - MEDICATIONS Home Medications: Ambulatory Orders Medication Instructions Recorded Confirmed Insulin Lispro [Humalog] 0 units SUBQ .SLIDING SCALE 08/12/20 08/12/20 Metoclopramide Inj [Reglan Inj] 5 mg PO DAILY 08/12/20 08/12/20 Insulin Glargine [Lantus Solostar] 8 units SUBQ QPM #0 08/14/20 08/12/20 Metoclopramide [Reglan] 10 mg PO ACHS tablet 08/14/20 Ondansetron Odt [Zofran Odt] 4 mg TL ACHS tablet 08/14/20 - PHYSICAL EXAM AT DISCHARGE General Appearance: positive: No acute distress, Other (Appears tired, sleepy.) Eyes Bilateral: positive: Normal inspection, EOMI ENT: positive: ENT inspection nml, No signs of dehydration Neck: positive: Nml inspection, No JVD Respiratory: positive: No respiratory distress, Breath sounds nml Cardiovascular: positive: Regular rate & rhythm, No murmur Abdomen: positive: Non-tender, No distention Back: positive: Other (No CVA tenderness) Skin: positive: Warm, Dry, Pallor Extremities: positive: Non-tender, No pedal edema Neurologic/Psychiatric: positive: Oriented x3 (Non-focal) - LABS Result Diagrams: 08/14/20 04:51 08/14/20 04:51 - DIAGNOSTIC IMAGING Diagnostic Imaging Results: Final report reviewed - FOLLOW UP Follow Up: See PCP and/or Band Machine Operator in 1 week, for previously scheduled appointment. - TIME SPENT Time Spent in Discharge (Minutes): 45
== END 2020-08-14 14:21 | disposition home or self-care (01) | DRG 639 ==
LOC: ED 05:39 → ICU 08:43
PROVIDERS: ADMIT Internal Medicine; ATTEND Internal Medicine
DX: E10.10 Type 1 diabetes mellitus with ketoacidosis without coma (principal); R11.2 Nausea with vomiting, unspecified; F12.20 Cannabis dependence, uncomplicated; E10.43 Type 1 diabetes mellitus with diabetic autonomic (poly)neuropathy; K31.84 Gastroparesis; D64.9 Anemia, unspecified; F41.9 Anxiety disorder, unspecified; M54.9 Dorsalgia, unspecified; Z79.4 Long term (current) use of insulin
CPT/HCPCS: 0202U; 36415; 74176; 80048; 80053; 80306; 81001; 81025; 82009; 82607; 82746; 82803; 82947; 83036; 83540; 83690; 83735; 84100; 84132; 84466; 85025; 87150; 96365; 96375; 99285; 99291; A9270; J1170; J1815; J2765; J8499; Q0162; 87086

== ENCOUNTER 2020-08-17 17:51 | Observation (INO) | payer OTHER ==
[2020-08-17] MEDS ORDERED: SODIUM CHLORIDE 0.9% 1,000 ML IV STA (18:54)
[2020-08-17] MEDS ORDERED: ONDANSETRON 4 MG/2 ML VIAL IVP STA ×2 (18:54→23:49)
[2020-08-17 19:13] LABS: BASOPHILS % (AUTO) 0.1 %; HCT - HEMATOCRIT 38.1 % (37.0-47.0); HGB - HEMOGLOBIN 12.5 g/dL (12.0-16.0); LYMPHOCYTES # (AUTO) 2.9 10^3/uL (1.5-3.5); LYMPHOCYTES % (AUTO) 31.4 %; MEAN CORPUSCULAR HEMOGLOBIN 25.9 pg (27.0-31.0); MEAN CORPUSCULAR HGB CONC 32.8 g/dL (32.0-36.0); MEAN CORPUSCULAR VOLUME 78.9 fL (81.0-99.0); MEAN PLATELET VOLUME 8.3 fL (7.9-10.8); NEUTROPHILS # (AUTO) 5.2 10^3/uL (1.5-6.6); NEUTROPHILS % (AUTO) 57.3 %; PLT - PLATELET COUNT 426 10^3/uL (130-450); RED BLOOD COUNT 4.83 10^6/uL (4.20-5.40); RED CELL DISTRIBUTION WIDTH 15.4 % (12.0-15.0); WHITE BLOOD COUNT 9.2 x10^3/uL (4.8-10.8)
[2020-08-17] MEDS ORDERED: FAMOTIDINE 20 MG/2 ML VIAL IVP STA (19:13)
[2020-08-17 19:25] LABS: ALBUMIN/GLOBULIN RATIO 1.5 (1.0-2.2); BILIRUBIN,TOTAL 1.7 mg/dL (0.2-1.0); CALCIUM 9.5 mg/dL (8.5-10.3); CREATININE 0.6 mg/dL (0.4-1.0); POTASSIUM 3.1 mmol/L (3.5-5.0); TOTAL PROTEIN 8.4 g/dL (6.7-8.2)
[2020-08-17 19:30] LABS: VBG BASE EXCESS -0.9 mmol/L (-2 - +2); VBG HCO3 23.6 mmol/L (23-28); VBG PCO2 38.4 mmHg (41-51); VBG PH 7.406 (7.31-7.41); VBG PO2 38.2 mmHg (25-47); VBG TOTAL CO2 24.8 mmol/L (24-29)
[2020-08-17 20:19] LABS: BILIRUBIN,URINE NEGATIVE (NEGATIVE); GLUCOSE, URINE (UA) >=1000 mg/dL (NEGATIVE); KETONES,URINE (UA) >=80 mg/dL (NEGATIVE); LEUKOCYTE ESTERASE, URINE NEGATIVE (NEGATIVE); NITRITE,URINE NEGATIVE (NEGATIVE); OCCULT BLOOD,URINE NEGATIVE (NEGATIVE); PROTEIN,URINE NEGATIVE (NEGATIVE); UROBILINOGEN,URINE 0.2 (NORMAL) E.U./dL (NORMAL)
[2020-08-17 20:21] LABS: CLARITY,URINE CLEAR (CLEAR)
[2020-08-17] MEDS ORDERED: POTASSIUM CHLOR 10 MEQ/100 ML 10 MEQ/100 ML BAG IV ONE (20:47)
[2020-08-17] MEDS ORDERED: MAG HYDROX/AL HYDROX/SIMETH 30 ML UDC PO STA (21:22)
[2020-08-17] MEDS ORDERED: diphenhydrAMINE ELIXIR 25 MG/10 ML UDC PO STA (21:23)
[2020-08-17] MEDS ORDERED: LIDOCAINE VISCOUS 2% 15 ML UDC MM STA (21:23)
[2020-08-17] MEDS ORDERED: ACETAMINOPHEN 325 MG TABLET PO STA (22:56)
[2020-08-17] MEDS ORDERED: NS W/20 MEQ KCL 1,000 ML IV STA (23:50)
[2020-08-17] MEDS ORDERED: ONDANSETRON ODT 4 MG TABLET TL PRN (23:54)
[2020-08-17] MEDS ORDERED: ACETAMINOPHEN 325 MG TABLET PO PRN (23:54)
--- NOTE | 2020-08-17 23:57 | ED Physician Documentation ---
History of Present Illness - Stated complaint Stated Complaint: VOMITING/BURNING PX IN CHEST - Chief complaint Chief Complaint: Abd Pain - Additonal information Additional information: 25-year-old woman with history of diabetes type 1, cyclic vomiting syndrome, gastroparesis, recently admitted 08/14 for DKA, presents with worsening nausea and vomiting over the past day and inability to tolerate oral. Patient is normally seen at [facility] and has had multiple ED visits over the past month, with an DAYA form. she endorses possible cannabis hyperemesis syndrome and states she has been abstinent 1 month with recent lapse on 08/08. denies fever, diarrhea. mild diffuse abd pain. Review of Systems Ten Systems: 10 systems reviewed and negative Constitutional: reports: Myalgias. denies: Fever, Chills GI: reports: Abdominal Pain, Nausea, Vomiting PD PAST MEDICAL HISTORY - Past Medical History Past Medical History: Yes Endocrine/Autoimmune: Type 1 diabetes GI: Other Psych: Anxiety Other Past Medical History: gastroparesis - Past Surgical History Past Surgical History: Yes General: Appendectomy - Present Medications Home Medications: Ambulatory Orders Medication Instructions Recorded Confirmed Insulin Lispro [Humalog] 0 units SUBQ .SLIDING SCALE 08/12/20 08/12/20 Insulin Glargine [Lantus Solostar] 8 units SUBQ QPM #0 08/14/20 08/12/20 Metoclopramide [Reglan] 10 mg PO ACHS tablet 08/14/20 Ondansetron Odt [Zofran Odt] 4 mg TL ACHS tablet 08/14/20 - Allergies Allergies/Adverse Reactions: Allergies Allergy/AdvReac Type Severity Reaction Status Date / Time ketorolac [From Toradol] Allergy Rash Verified 08/17/20 18:02 Milk Containing Products Allergy Unknown Verified 08/17/20 18:02 - Social History Does the pt smoke?: No Smoking Status: Never smoker Does the pt drink ETOH?: No Does the pt have substance abuse?: Yes Substance Use and Type: Marijuana - Immunizations Immunizations are current?: Yes - POLST Patient has POLST: No PD ED PE NORMAL - Vitals Vital signs reviewed: Yes - General General: Alert and oriented X 3, Other (mild to moderate distress) - HEENT HEENT: Atraumatic, PERRL, EOMI - Neck Neck: Supple, no meningeal sign - Cardiac Cardiac: Other (tachycardic rate, regular rhythm) - Respiratory Respiratory: No respiratory distress, Clear bilaterally - Abdomen Abdomen: Other (diffuse discomfort to palpation. ntnd) - Female Female : Deferred - Rectal Rectal: Deferred - Back Back: No CVA TTP - Derm Derm: Normal color, Warm and dry - Extremities Extremities: No deformity - Neuro Neuro: Alert and oriented X 3 - Psych Psych: Normal mood, Normal affect Results - Vitals Vitals: Vital Signs - 24 hr 08/17/20 08/17/20 08/17/20 18:02 18:30 19:27 Temperature 36.5 C Heart Rate 130 H 108 H 119 H Respiratory 16 20 20 Rate Blood Pressure 125/73 131/89 H O2 Saturation 100 100 08/17/20 08/17/20 08/17/20 19:36 20:57 21:00 Temperature Heart Rate 119 H 109 H 110 H Respiratory 17 30 H 18 Rate Blood Pressure 131/92 H 97/71 143/89 H O2 Saturation 100 100 100 08/17/20 08/17/20 08/17/20 21:30 22:00 22:33 Temperature Heart Rate 126 H 119 H 105 H Respiratory 17 16 26 H Rate Blood Pressure 129/76 98/62 118/55 L O2 Saturation 100 99 99 08/17/20 08/17/20 23:00 23:30 Temperature Heart Rate 101 H 107 H Respiratory 18 17 Rate Blood Pressure 107/66 108/66 O2 Saturation 99 99 Oxygen O2 Source Room air - Labs Labs: Laboratory Tests 08/17/20 08/17/20 08/17/20 18:10 19:04 19:04 WBC 9.2 RBC 4.83 Hgb 12.5 Hct 38.1 MCV 78.9 L MCH 25.9 L MCHC 32.8 RDW 15.4 H Plt Count 426 MPV 8.3 Neut # (Auto) 5.2 Lymph # (Auto) 2.9 [place] # (Auto) 1.0 Eos # (Auto) 0.0 Baso # (Auto) 0.0 Absolute Nucleated RBC 0.00 Nucleated RBC % 0.0 VBG pH VBG pCO2 VBG pO2 VBG HCO3 VBG Total CO2 VBG O2 Saturation VBG Base Excess Sodium 130 L Potassium 3.1 L Chloride 88 L Carbon Dioxide 25 Anion Gap 17.0 H BUN 13 Creatinine 0.6 Estimated GFR (MDRD) 121 Glucose 170 H POC Whole Bld Glucose 193 H Calcium 9.5 Total Bilirubin 1.7 H AST 22 ALT 21 Alkaline Phosphatase 98 Total Protein 8.4 H Albumin 5.0 Globulin 3.4 Albumin/Globulin Ratio 1.5 Lipase 18 L Urine Color Urine Clarity Urine pH Ur Specific [place] Urine Protein Urine Glucose (UA) Urine Ketones Urine Occult Blood Urine Nitrite Urine Bilirubin Urine Urobilinogen Ur Leukocyte Esterase Ur Microscopic Review Urine Culture Comments Serum Ketones 08/17/20 08/17/20 08/17/20 19:25 19:25 19:35 WBC RBC Hgb Hct MCV MCH MCHC RDW Plt Count MPV Neut # (Auto) Lymph # (Auto) [place] # (Auto) Eos # (Auto) Baso # (Auto) Absolute Nucleated RBC Nucleated RBC % VBG pH 7.406 VBG pCO2 38.4 L VBG pO2 38.2 VBG HCO3 23.6 VBG Total CO2 24.8 VBG O2 Saturation 78.0 VBG Base Excess -0.9 Sodium Potassium Chloride Carbon Dioxide Anion Gap BUN Creatinine Estimated GFR (MDRD) Glucose POC Whole Bld Glucose Calcium Total Bilirubin AST ALT Alkaline Phosphatase Total Protein Albumin Globulin Albumin/Globulin Ratio Lipase Urine Color YELLOW Urine Clarity CLEAR Urine pH 6.0 Ur Specific [place] 1.015 Urine Protein NEGATIVE Urine Glucose (UA) >=1000 H Urine Ketones >=80 H Urine Occult Blood NEGATIVE Urine Nitrite NEGATIVE Urine Bilirubin NEGATIVE Urine Urobilinogen 0.2 (NORMAL) Ur Leukocyte Esterase NEGATIVE Ur Microscopic Review NOT INDICATED Urine Culture Comments NOT INDICATED Serum Ketones SMALL H PD MEDICAL DECISION MAKING - ED course ED course: 25-year-old woman with history of type 1 diabetes and cyclic vomiting syndrome presents with nausea and vomiting considering statin with her usual episodes. Patient is unable to tolerate oral after multiple rounds of treatments with supportive medications and fluids. I discussed with Dr. [place] for observation admission and he is amenable. Departure - Departure Disposition: ED Place in Observation Clinical Impression: Nausea and vomiting Condition: Stable Discharge Date/Time: 08/18/20 01:45
--- NOTE | 2020-08-18 | HISTORY & PHYSICAL EXAMINATION ---
Chief Complaint - Chief Complaint Chief Complaint: Nausea and vomiting History of Present Illness - Admitted From Admitted From:: Home - History Obtained From Records Reviewed: Yes History obtained from: Patient, ER Physician, EMR - History of Present Illness HPI Comment/Other: This is a pleasant 25-year-old female with a history of type 1 diabetes mellitus, gastroparesis who presents today complaining of nausea and vomiting. She states her symptoms began on August 08 when she smoked some marijuana. She developed nausea and vomiting immediately after and she was actually hospitalized here shortly after that for diabetic ketoacidosis as well as intractable nausea/vomiting. She was here for a few days and then was discharged home after she was able to tolerate oral intake. She states after discharge she was doing well initially for the first 2 to 3 days. She was not eating very much but was able to keep food down. She tells me she only had a banana and an Ensure each day. This morning she woke up and she has significant nausea and vomiting and so she came to the emergency department. She states she has associated heartburn and epigastric pain. She denies hematemesis. She denies any diarrhea. Reports only minimal bowel movements due to limited p.o. intake. She states she also has left-sided back pain which is present when she has this significant vomiting. She tells me that she will shake in bed which will help alleviate the pain. The pain is only present at rest. It is alleviated by any movement. She had a CT of the abdomen and pelvis just a few days ago which was unremarkable. She reports no fevers or chills. She does complain of night sweats over the past month. She states initially she thought they were due to low blood sugar but she has not had further episodes of hypoglycemia but she still has night sweats. She reports limited p.o. intake and about 20 pound weight loss over the past few months. She states she just has a poor appetite and food does not appeal to her. She tells me she quit smok ing marijuana a few months ago except for that one time on August 08. In the emergency department, she received multiple episodes of antiemetics and a GI cocktail but she continued to have nausea and vomiting and was unable to tolerate a p.o. challenge. Given these findings, medicine was consulted for admission. History - Past Medical History Endocrine/Autoimmune: reports: Type 1 diabetes GI: reports: Other (Gastroparesis.) Psych: reports: Anxiety MRSA Hx?: No Other Past Medical History: gastroparesis - Past Surgical History General: reports: Appendectomy - Family & Social History Family History: Mother: Alive and Well, Father: Alive and Well Family History Comment/Other: She reports her parents are healthy. Her great g randmother on her father's side had type 2 diabetes. Living arrangement: At home Living Situation: With spouse/s.o. Social History Notes: Lives at home with her . She denies any smoking or alcohol use. Previous history of marijuana use but she quit until her most recent use on August 08. - Substance History Use: Uses substance without health or social issues: Cannabis - POLST Patient has POLST: No Meds/Allgy - Home Medications Home Medications: Ambulatory Orders Medication Instructions Recorded Confirmed Insulin Lispro [Humalog] 0 units SUBQ .SLIDING SCALE 08/12/20 08/12/20 Insulin Glargine [Lantus Solostar] 8 units SUBQ QPM #0 08/14/20 08/12/20 Metoclopramide [Reglan] 10 mg PO ACHS tablet 08/14/20 Ondansetron Odt [Zofran Odt] 4 mg TL ACHS tablet 08/14/20 - Allergies Allergies/Adverse Reactions: Allergies Allergy/AdvReac Type Severity Reaction Status Date / Time ketorolac [From Toradol] Allergy Rash Verified 08/17/20 18:02 Milk Containing Products Allergy Unknown Verified 08/17/20 18:02 Review of Systems - Constitutional Constitutional: reports: Malaise, Poor appetite, Night sweats, Weight loss. denies: Fever, Chills - Cardiovascular Cariovascular: denies: Chest pain, Lightheadedness, Exertional dyspnea, Decr. exercise tolerance - Respiratory Respiratory: denies: SOB at rest, SOB with exertion - Gastrointestinal Gastrointestinal: reports: Nausea, Vomiting, Reflux/heartburn. denies: Abdomi nal pain, Diarrhea, Bert blood emesis - Genitourinary Genitourinary: denies: Dysuria, Frequency, Hematuria - Musculoskeletal Musculoskeletal: reports: Back pain - Neurological Neurological: reports: Headache. denies: Dizziness - All Other Systems All Other Systems: reports: Reviewed and negative Prior Level of Functionality: She is independent with her ADLs. Exam - Vital Signs Vital Signs: Vital Signs x48h Temp Pulse Resp BP Pulse Ox 08/17/20 23:30 107 H 17 108/66 99 08/17/20 23:00 101 H 18 107/66 99 08/17/20 22:33 105 H 26 H 118/55 L 99 08/17/20 22:00 119 H 16 98/62 99 08/17/20 21:30 126 H 17 129/76 100 08/17/20 21:00 110 H 18 143/89 H 100 08/17/20 20:57 109 H 30 H 97/71 100 08/17/20 19:36 119 H 17 131/92 H 100 08/17/20 19:27 119 H 20 131/89 H 100 08/17/20 18:30 108 H 20 08/17/20 18:02 36.5 C 130 H 16 125/73 100 - Physical Exam General Appearance: positive: Alert, Mild distress Eyes Bilateral: positive: Normal inspection, Conjunctivae nml ENT: positive: ENT inspection nml Neck: positive: Nml inspection Respiratory: positive: No respiratory distress. negative: Wheezes, Rales Cardiovascular: positive: Tachycardia. negative: Irregularly irregular, Systolic murmur Abdomen: positive: Non-tender, Nml bowel sounds, No distention. negative: Tenderness, Guarding, Rebound Back: positive: Nml inspection, Other (No lumbar or thoracic spine tenderness. No paraspinal muscle tenderness.) Skin: positive: Warm, Dry Extremities: positive: No pedal edema Neurologic/Psychiatric: negative: Disoriented to person, Disoriented to place Conclusion/Plan - Problem List (1) Intractable nausea and vomiting Conclusion/Plan: She has intractable nausea and vomiting despite multiple antiemetics in the emergency department. This may be due to underlying gastroparesis or cannabinoid hyperemesis syndrome. Gastritis is also on the differential. We will place her on scheduled Reglan with Zofran as needed. We will place her on Protonix IV.. Clear liquid diet as tolerated. She had a CT of the abdomen pelvis a few days ago which was unremarkable and therefore we will not repeat imaging at this time. (2) Type 1 diabetes mellitus Conclusion/Plan: Stable. Although her anion gap is mildly elevated, her pH is within normal limits as well as her bicarbonate. Her serum ketones are small. Do not suspect diabetic ketoacidosis at this time. We will place her on her home dose of Lantus and sliding scale. Clear liquid diet as tolerated. (3) Back pain Conclusion/Plan: This appears to be associate with her nausea and vomiting. Her physical exam is unremarkable and she had a CT of the abdomen and pelvis just a few days ago which was unremarkable. At this time we will treat her pain with morphine IV as needed. Qualifiers: Back pain laterality: left (4) Gastroparesis diabeticorum Conclusion/Plan: This is secondary to her diabetes and may be contributing to her intractable nausea and vomiting. We will place her on scheduled Reglan as mentioned above. (5) Marijuana use Conclusion/Plan: She has a history of marijuana use and this was evident on her prior urine toxicology from 5 days ago. She denies any recent use except for August 08. Cannabinoid hyperemesis syndrome may be contributing to her presentation. Plan as mentioned above for intractable nausea/vomiting. (6) Hypokalemia Conclusion/Plan: Likely secondary to GI losses. We will replace intravenously. Recheck in the morning. - Lab Results Lab results reviewed: Yes Zach Bones: 08/17/20 19:04 08/17/20 19:04 Core Measures - Anticipated LOS I expect patient to be DC'd or transferred within 96 hours.: Yes - Issues Hospital Issues and Management Plan: 25-year-old female with type 1 diabetes mellitus, gastroparesis and likely hemorrhoid hyperemesis syndrome presents with nausea and vomiting. Despite antiemetics in the emergency department, she failed a p.o. challenge. We will place her in observation for intractable nausea/vomiting. - DVT/VTE - Prophylaxis VTE/DVT Device ordered at admit?: Yes VTE/DVT Prophylaxis med ordered at admit?: Yes
[2020-08-18] MEDS ORDERED: MORPHINE 2 MG/ML CARPUJECT IVP STA (00:29)
[2020-08-18 00:58] LABS: B. PARAPERTUSSIS- RESP PCR PAN NOT DETECTED; B. PERTUSSIS- RESP PCR PANEL NOT DETECTED; C. PNEUMONIAE- RESP PCR PANEL NOT DETECTED; CORONAVIRUS 229E-RESP PCR NOT DETECTED; CORONAVIRUS HKU1-RESP PCR NOT DETECTED; CORONAVIRUS NL63-RESP PCR NOT DETECTED; CORONAVIRUS OC43-RESP PCR NOT DETECTED; HUMAN METAPNEUMOVIRUS NOT DETECTED; INFLUENZA A- RESP PCR PANEL NOT DETECTED; INFLUENZA B - RESP PCR PANEL NOT DETECTED; M. PNEUMONIAE- RESP PCR PANEL NOT DETECTED; PARAINFLUENZA VIRUS 1 NOT DETECTED; PARAINFLUENZA VIRUS 2 NOT DETECTED; PARAINFLUENZA VIRUS 3 NOT DETECTED; PARAINFLUENZA VIRUS 4 NOT DETECTED; RHINOVIRUS/ENTEROVIRUS NOT DETECTED; RSV- RESP PCR PANEL NOT DETECTED; SARS-CoV-2 -RESP PCR PANEL NOT DETECTED
[2020-08-18] MEDS: LACTATED RINGERS 1,000 ML IV SCH ×2 (02:00→11:29)
[2020-08-18] MEDS: METOCLOPRAMIDE 10 MG/2 ML VIAL IVP SCH ×5 (02:02→23:48)
[2020-08-18] MEDS: SODIUM CHLORIDE FLUSH 0.9% 10 ML SYRINGE IVP SCH ×4 (02:11→23:49)
[2020-08-18] MEDS: SODIUM CHLORIDE FLUSH 0.9% 10 ML SYRINGE IVP PRN ×2 (02:12→06:35)
[2020-08-18] MEDS: POTASSIUM CHLOR 10 MEQ/100 ML 10 MEQ/100 ML BAG IV SCH ×4 (02:13→05:47)
[2020-08-18] MEDS: MORPHINE 2 MG/ML CARPUJECT IVP PRN ×2 (04:40→13:14)
[2020-08-18 05:47] LABS: HCT - HEMATOCRIT 33.8 % (37.0-47.0); HGB - HEMOGLOBIN 10.7 g/dL (12.0-16.0); LYMPHOCYTES # (AUTO) 1.8 10^3/uL (1.5-3.5); LYMPHOCYTES % (AUTO) 28.2 %; MEAN CORPUSCULAR HEMOGLOBIN 25.5 pg (27.0-31.0); MEAN CORPUSCULAR HGB CONC 31.7 g/dL (32.0-36.0); MEAN CORPUSCULAR VOLUME 80.7 fL (81.0-99.0); MEAN PLATELET VOLUME 8.5 fL (7.9-10.8); MONOCYTES # (AUTO) 0.6 10^3/uL (0.0-1.0); MONOCYTES % (AUTO) 9.2 %; NEUTROPHILS % (AUTO) 62.3 %; PLT - PLATELET COUNT 349 10^3/uL (130-450); RED BLOOD COUNT 4.19 10^6/uL (4.20-5.40); RED CELL DISTRIBUTION WIDTH 15.7 % (12.0-15.0); WHITE BLOOD COUNT 6.4 x10^3/uL (4.8-10.8)
[2020-08-18 05:54] LABS: CALCIUM 8.9 mg/dL (8.5-10.3); CREATININE 0.6 mg/dL (0.4-1.0); POTASSIUM 4.9 mmol/L (3.5-5.0)
[2020-08-18] MEDS: PANTOPRAZOLE 40 MG VIAL IVP SCH (06:35)
[2020-08-18] MEDS ORDERED: INSULIN ASPART 300 UNIT/3 ML PEN SUBQ SCH ×2 (08:00→12:00)
[2020-08-18] MEDS ORDERED: INSULIN ASPART 300 UNIT/3 ML PEN SUBQ ONE (08:15)
[2020-08-18] MEDS: ENOXAPARIN 40 MG/0.4 ML SYRINGE SUBQ SCH (08:36)
[2020-08-18] MEDS: SUCRALFATE 1 GM/10 ML UDC PO SCH ×3 (10:39→21:15)
[2020-08-18] MEDS: GI COCKTAIL 120 ML BOTTLE PO PRN ×3 (10:41→21:15)
[2020-08-18] MEDS: INSULIN ASPART 300 UNIT/3 ML PEN SUBQ SCH ×3 (13:09→21:18)
--- NOTE | 2020-08-18 13:42 | PHARMACY PROGRESS NOTE ---
- Best Possible Medication History Admit Date and Time: 08/17/20 8929 Processed by: Pharmacy Medication History completed: Yes Secondary Source(s): Previous admit records As the person ultimately responsible for medication therapy, providers are able to order a medication from an existing home medication list in [facility] via the "Reconcile Routine" prior to Confirmation of that medication by family readiness support assistant. Such practice is discouraged except when the physician, in their clinical judgment, deems that a medical need exists for a medication without regard to previous use.
--- NOTE | 2020-08-18 15:15 | PROVIDER PROGRESS NOTE ---
Assessment/Plan - Problem List (1) Intractable nausea and vomiting Assessment/Plan: pt ate 50% of her breakfast. Patient Still complain Nausea, vomiting. Patient also complain burning and abdominal pain sensation at upper quadrant of abdomen. Patient report she take Carafate in the past did help her symptoms to be released. Patient had CAT scan of abdomen/pelvis 5 days ago In the hospital Which show was unremarkable. pt has diagnosis in previous of gastroparesis with cannabinoid hyperemesis syndrome. Continue Protonix intravenous, continue Reglan, add GI cocktail PRN, and Carafate, continue IVF (2) Type 1 diabetes mellitus Conclusion/Plan: Patient had elevated glucose level, we will adjust insulin and tid Novolog, patient had A1c 8.6 which was done few days ago in the hospital. pt had small serum diabetic ketoacidosis, continue IVF, continue lab monitor. (3) Back pain Conclusion/Plan: her back pain is better control. she had a CT of the abdomen and pelvis just a few days ago which was unremarkable. continue pain control. (4) Gastroparesis diabeticorum Conclusion/Plan: This is secondary to her diabetes and may be contributing to her intractable nausea and vomiting. continue scheduled Reglan. Patient reported she had a GI physician but she needed continued follow-up (5) Marijuana use Conclusion/Plan: She was positive on her prior urine toxicology from 5 days ago. She denies any recent use except for August 08. Cannabinoid hyperemesis syndrome may be contributing to her presentation. advise pt quit Marijuana at this moment, which caused pt lots of symptoms (6) Hypokalemia Conclusion/Plan: resolved. - Current Meds Current Meds: Current Medications Generic Name Dose Route Start Last Admin Trade Name Freyulisa PRN Reason Stop Dose Admin Enoxaparin Sodium 40 mg 08/18/20 09:00 08/18/20 08:36 Enoxaparin 40 Mg/0.4 Ml Syringe SUBQ Not Given DAILY LETICIA Lactated Ringer's 1,000 mls @ 100 mls/hr 08/17/20 23:45 08/18/20 11:29 Lr IV 08/18/20 19:44 100 mls/hr .Q10H LETICIA Administration Insulin Aspart 5 unit 08/18/20 12:00 08/18/20 13:08 Insulin Aspart 300 Unit/3 Ml Pen SUBQ 5 unit TIDWM LETICIA Administration Insulin Aspart 2 - 10 unit 08/18/20 12:15 08/18/20 13:09 Insulin Aspart 300 Unit/3 Ml Pen SUBQ 4 unit 0800,1200,1700,2100 [facility] Administration Protocol Metoclopramide HCl 5 mg 08/18/20 00:00 08/18/20 12:24 Metoclopramide 10 Mg/2 Ml Vial IVP 5 mg Q6HR LETICIA Administration Morphine Sulfate 2 mg 08/18/20 00:29 08/18/20 13:14 Morphine 2 Mg/Ml Carpuject IVP 2 mg Q2HR PRN Administration PAIN Multi-Ingredient Mouthwash/Gargle 30 ml 08/18/20 10:26 08/18/20 10:41 Gi Cocktail 120 Ml Bottle PO 30 ml Q4H PRN Administration Abdominal Pain Ondansetron HCl 4 mg 08/17/20 23:54 08/18/20 04:41 Ondansetron Odt 4 Mg Tablet TL 4 mg Q6HR PRN Administration Nausea / Vomiting Pantoprazole Sodium 40 mg 08/18/20 07:00 08/18/20 06:35 Pantoprazole 40 Mg Vial IVP 40 mg QDAC LETICIA Administration Sodium Chloride 10 ml 08/17/20 23:54 08/18/20 06:35 Sodium Chloride Flush 0.9% 10 Ml Syringe IVP 10 ml PRN PRN Administration NEEDED PER PROVIDER ORDERS Sodium Chloride 10 ml 08/18/20 01:00 08/18/20 09:49 Sodium Chloride Flush 0.9% 10 Ml Syringe IVP Not Given 0100,0900,1700 [facility] Sucralfate 1 gm 08/18/20 11:00 08/18/20 10:39 Sucralfate 1 Gm/10 Ml Udc PO 1 gm 0700,1100,1600,2200 [facility] Administration - Lab Result Fish Bone Diagrams: 08/18/20 05:40 08/18/20 05:40 - Additional Planning My Orders: My Active Orders 08/18/20 10:26 Gi Cocktail 30 ml PO Q4H PRN 08/18/20 11:00 Sucralfate [Carafate] 1 gm PO 0700,1100,1600,2200 08/18/20 12:00 Insulin Aspart [NovoLOG] 5 unit SUBQ TIDWM 08/18/20 Dinner Clear Liquid Diet [DIET] 08/19/20 05:00 BMP - BASIC METABOLIC PANEL [CHEM] DAILYLAB CBC - COMP BLD CT W/AUTO DIFF [HEME] DAILYLAB 08/20/20 05:00 BMP - BASIC METABOLIC PANEL [CHEM] DAILYLAB CBC - COMP BLD CT W/AUTO DIFF [HEME] DAILYLAB 08/21/20 05:00 BMP - BASIC METABOLIC PANEL [CHEM] DAILYLAB CBC - COMP BLD CT W/AUTO DIFF [HEME] DAILYLAB 08/22/20 05:00 BMP - BASIC METABOLIC PANEL [CHEM] DAILYLAB CBC - COMP BLD CT W/AUTO DIFF [HEME] DAILYLAB Subjective - Subjective Patient Reports: Heartburn, Nausea Objective Vital Signs: Vital Signs - 24 hr 08/17/20 08/17/20 08/17/20 18:02 18:30 19:27 Temperature 36.5 C Heart Rate 130 H 108 H 119 H Heart Rate [ Brachial] Respiratory 16 20 20 Rate Blood Pressure 125/73 131/89 H Blood Pressure [Right Brachial artery] O2 Saturation 100 100 08/17/20 08/17/20 08/17/20 19:36 20:57 21:00 Temperature Heart Rate 119 H 109 H 110 H Heart Rate [ Brachial] Respiratory 17 30 H 18 Rate Blood Pressure 131/92 H 97/71 143/89 H Blood Pressure [Right Brachial artery] O2 Saturation 100 100 100 08/17/20 08/17/20 08/17/20 21:30 22:00 22:33 Temperature Heart Rate 126 H 119 H 105 H Heart Rate [ Brachial] Respiratory 17 16 26 H Rate Blood Pressure 129/76 98/62 118/55 L Blood Pressure [Right Brachial artery] O2 Saturation 100 99 99 08/17/20 08/17/20 08/18/20 23:00 23:30 00:00 Temperature Heart Rate 101 H 107 H 108 H Heart Rate [ Brachial] Respiratory 18 17 23 Rate Blood Pressure 107/66 108/66 111/80 Blood Pressure [Right Brachial artery] O2 Saturation 99 99 100 08/18/20 08/18/20 08/18/20 00:30 01:00 01:30 Temperature Heart Rate 100 85 81 Heart Rate [ Brachial] Respiratory 18 16 16 Rate Blood Pressure 111/80 104/62 94/62 Blood Pressure [Right Brachial artery] O2 Saturation 99 98 98 08/18/20 08/18/20 08/18/20 02:00 06:54 09:00 Temperature 36.9 C 36.9 C Heart Rate Heart Rate [ 108 H 88 101 H Brachial] Respiratory 18 18 17 Rate Blood Pressure Blood Pressure 122/83 H 127/73 135/82 H [Right Brachial artery] O2 Saturation 100 100 100 08/18/20 12:38 Temperature 36.6 C Heart Rate Heart Rate [ 91 Brachial] Respiratory 17 Rate Blood Pressure Blood Pressure 142/87 H [Right Brachial artery] O2 Saturation 100 Oxygen O2 Source Room air I&O (Last 24 Hrs): Intake and Output Totals x24h 08/16/20 08/17/20 08/18/20 23:59 23:59 23:59 Intake Total 1110 1948.334 Output Total 200 Balance 1110 1748.334 General: Alert, Oriented x3, Cooperative, Mild distress HEENT: Atraumatic Neck: Supple Lymphatic: no adenopathy Neuro: Alert, Non Focal, Oriented Times 3 Cardiovascular: Regular rate, Normal S1, Normal S2 Respiratory: Chest non-tender, No respiratory distress, Breath sounds nml Abdomen: Normal bowel sounds, Soft - Results Results: Laboratory Results WBC 6.4 x10^3/uL (4.8-10.8) 08/18/20 05:40 RBC 4.19 10^6/uL (4.20-5.40) L 08/18/20 05:40 Hgb 10.7 g/dL (12.0-16.0) L 08/18/20 05:40 Hct 33.8 % (37.0-47.0) L 08/18/20 05:40 MCV 80.7 fL (81.0-99.0) L 08/18/20 05:40 MCH 25.5 pg (27.0-31.0) L 08/18/20 05:40 MCHC 31.7 g/dL (32.0-36.0) L 08/18/20 05:40 RDW 15.7 % (12.0-15.0) H 08/18/20 05:40 Plt Count 349 10^3/uL (130-450) 08/18/20 05:40 MPV 8.5 fL (7.9-10.8) 08/18/20 05:40 Neut # (Auto) 4.0 10^3/uL (1.5-6.6) 08/18/20 05:40 Lymph # (Auto) 1.8 10^3/uL (1.5-3.5) 08/18/20 05:40 Knott # (Auto) 0.6 10^3/uL (0.0-1.0) 08/18/20 05:40 Eos # (Auto) 0.0 10^3/uL (0.0-0.7) 08/18/20 05:40 Baso # (Auto) 0.0 10^3/uL (0.0-0.1) 08/18/20 05:40 Absolute Nucleated RBC 0.00 x10^3/uL 08/18/20 05:40 Nucleated RBC % 0.0 /100WBC 08/18/20 05:40 VBG pH 7.406 (7.31-7.41) 08/17/20 19:25 VBG pCO2 38.4 mmHg (41-51) L 08/17/20 19:25 VBG pO2 38.2 mmHg (25-47) 08/17/20 19:25 VBG HCO3 23.6 mmol/L (23-28) 08/17/20 19:25 VBG Total CO2 24.8 mmol/L (24-29) 08/17/20 19:25 VBG O2 Saturation 78.0 % (60-80) 08/17/20 19:25 VBG Base Excess -0.9 mmol/L (-2 - +2) 08/17/20 19:25 Sodium 131 mmol/L (135-145) L 08/18/20 05:40 Potassium 4.9 mmol/L (3.5-5.0) 08/18/20 05:40 Chloride 101 mmol/L (101-111) 08/18/20 05:40 Carbon Dioxide 15 mmol/L (21-32) L 08/18/20 05:40 Anion Gap 15.0 (6-13) H 08/18/20 05:40 BUN 10 mg/dL (6-20) 08/18/20 05:40 Creatinine 0.6 mg/dL (0.4-1.0) 08/18/20 05:40 Estimated GFR (MDRD) 121 (>89) 08/18/20 05:40 Glucose 353 mg/dL (70-100) H 08/18/20 05:40 POC Whole Bld Glucose 198 mg/dL (70 - 100) H 08/18/20 11:47 Calcium 8.9 mg/dL (8.5-10.3) 08/18/20 05:40 Total Bilirubin 1.7 mg/dL (0.2-1.0) H 08/17/20 19:04 AST 22 IU/L (10-42) 08/17/20 19:04 ALT 21 IU/L (10-60) 08/17/20 19:04 Alkaline Phosphatase 98 IU/L (42-121) 08/17/20 19:04 Total Protein 8.4 g/dL (6.7-8.2) H 08/17/20 19:04 Albumin 5.0 g/dL (3.2-5.5) 08/17/20 19:04 Globulin 3.4 g/dL (2.1-4.2) 08/17/20 19:04 Albumin/Globulin Ratio 1.5 (1.0-2.2) 08/17/20 19:04 Lipase 18 U/L (22-51) L 08/17/20 19:04 Urine Color YELLOW 08/17/20 19:35 Urine Clarity CLEAR (CLEAR) 08/17/20 19:35 Urine pH 6.0 PH (5.0-7.5) 08/17/20 19:35 Ur Specific Lanse 1.015 (1.002-1.030) 08/17/20 19:35 Urine Protein NEGATIVE mg/dL (NEGATIVE) 08/17/20 19:35 Urine Glucose (UA) >=1000 mg/dL (NEGATIVE) H 08/17/20 19:35 Urine Ketones >=80 mg/dL (NEGATIVE) H 08/17/20 19:35 Urine Occult Blood NEGATIVE (NEGATIVE) 08/17/20 19:35 Urine Nitrite NEGATIVE (NEGATIVE) 08/17/20 19:35 Urine Bilirubin NEGATIVE (NEGATIVE) 08/17/20 19:35 Urine Urobilinogen 0.2 (NORMAL) E.U./dL (NORMAL) 08/17/20 19:35 Ur Leukocyte Esterase NEGATIVE (NEGATIVE) 08/17/20 19:35 Ur Microscopic Review NOT INDICATED 08/17/20 19:35 Urine Culture Comments NOT INDICATED 08/17/20 19:35 Nasal Adenovirus (PCR) NOT DETECTED 08/18/20 00:05 Nasal B. parapertussis DNA (PCR) NOT DETECTED 08/18/20 00:05 Nasal Coronavir 229E PCR NOT DETECTED 08/18/20 00:05 Nasal Coronavir HKU1 PCR NOT DETECTED 08/18/20 00:05 Nasal Coronavir NL63 PCR NOT DETECTED 08/18/20 00:05 Nasal Coronavir OC43 PCR NOT DETECTED 08/18/20 00:05 Nasal Enterovir/Rhinovir PCR NOT DETECTED 08/18/20 00:05 Nasal Influenza B PCR NOT DETECTED 08/18/20 00:05 Nasal Influenza A PCR NOT DETECTED 08/18/20 00:05 Nasal Parainfluen 1 PCR NOT DETECTED 08/18/20 00:05 Nasal Parainfluen 2 PCR NOT DETECTED 08/18/20 00:05 Nasal Parainfluen 3 PCR NOT DETECTED 08/18/20 00:05 Nasal Parainfluen 4 PCR NOT DETECTED 08/18/20 00:05 Nasal RSV (PCR) NOT DETECTED 08/18/20 00:05 Nasal B.pertussis DNA PCR NOT DETECTED 08/18/20 00:05 Nasal C.pneumoniae (PCR) NOT DETECTED 08/18/20 00:05 Kvng Human Metapneumo PCR NOT DETECTED 08/18/20 00:05 Nasal M.pneumoniae (PCR) NOT DETECTED 08/18/20 00:05 Nasal SARS-CoV-2 (PCR) NOT DETECTED 08/18/20 00:05 Serum Ketones SMALL (NEGATIVE) H 08/17/20 19:25 ABX Reporting Has patient been on IV antibiotics over the past 48 hours?: No Current Medications - Current Medications Current Medications: Active Medications Acetaminophen (Acetaminophen 325 Mg Tablet) 650 mg PO Q4HR PRN PRN Reason: Pain 1 to 4 Enoxaparin Sodium (Enoxaparin 40 Mg/0.4 Ml Syringe) 40 mg SUBQ DAILY [facility] Last Admin: 08/18/20 08:36 Dose: Not Given Documented by: Lactated Ringer's (Lr) 1,000 mls @ 100 mls/hr IV .Q10H [facility] Stop: 08/18/20 19:44 Last Admin: 08/18/20 11:29 Dose: 100 mls/hr Documented by: Insulin Aspart (Insulin Aspart 300 Unit/3 Ml Pen) 5 unit SUBQ TIDWM LETICIA Last Admin: 08/18/20 13:08 Dose: 5 unit Documented by: Insulin Aspart (Insulin Aspart 300 Unit/3 Ml Pen) 2 - 10 unit SUBQ 0800,1200,1700,2100 [facility]; Protocol Last Admin: 08/18/20 13:09 Dose: 4 unit Documented by: Insulin Glargine (Insulin Glargine 300 Unit/3 Ml Pen) 8 unit SUBQ QPM LETICIA Metoclopramide HCl (Metoclopramide 10 Mg/2 Ml Vial) 5 mg IVP Q6HR [facility] Last Admin: 08/18/20 12:24 Dose: 5 mg Documented by: Morphine Sulfate (Morphine 2 Mg/Ml Carpuject) 2 mg IVP Q2HR PRN PRN Reason: PAIN Last Admin: 08/18/20 13:14 Dose: 2 mg Documented by: Multi-Ingredient Mouthwash/Gargle (Gi Cocktail 120 Ml Bottle) 30 ml PO Q4H PRN PRN Reason: Abdominal Pain Last Admin: 08/18/20 10:41 Dose: 30 ml Documented by: Ondansetron HCl (Ondansetron Odt 4 Mg Tablet) 4 mg TL Q6HR PRN PRN Reason: Nausea / Vomiting Last Admin: 08/18/20 04:41 Dose: 4 mg Documented by: Pantoprazole Sodium (Pantoprazole 40 Mg Vial) 40 mg IVP QDAC [facility] Last Admin: 08/18/20 06:35 Dose: 40 mg Documented by: Sodium Chloride (Sodium Chloride Flush 0.9% 10 Ml Syringe) 10 ml IVP PRN PRN PRN Reason: NEEDED PER PROVIDER ORDERS Last Admin: 08/18/20 06:35 Dose: 10 ml Documented by: Sodium Chloride (Sodium Chloride Flush 0.9% 10 Ml Syringe) 10 ml IVP 0100,09 00,1700 [facility] Last Admin: 08/18/20 09:49 Dose: Not Given Documented by: Sucralfate (Sucralfate 1 Gm/10 Ml Udc) 1 gm PO 0700,1100,1600,2200 [facility] Last Admin: 08/18/20 10:39 Dose: 1 gm Documented by: Insulin Lispro [Humalog] 0 units SUBQ .SLIDING SCALE 08/12/20
[2020-08-18] MEDS ORDERED: INSULIN GLARGINE 300 UNIT/3 ML PEN SUBQ SCH (21:00)
[2020-08-19 05:08] LABS: HCT - HEMATOCRIT 33.3 % (37.0-47.0); HGB - HEMOGLOBIN 10.8 g/dL (12.0-16.0); LYMPHOCYTES # (AUTO) 3.8 10^3/uL (1.5-3.5); LYMPHOCYTES % (AUTO) 53.3 %; MEAN CORPUSCULAR HEMOGLOBIN 25.7 pg (27.0-31.0); MEAN CORPUSCULAR HGB CONC 32.4 g/dL (32.0-36.0); MEAN CORPUSCULAR VOLUME 79.1 fL (81.0-99.0); MEAN PLATELET VOLUME 8.4 fL (7.9-10.8); MONOCYTES # (AUTO) 0.8 10^3/uL (0.0-1.0); MONOCYTES % (AUTO) 11.4 %; NEUTROPHILS # (AUTO) 2.5 10^3/uL (1.5-6.6); NEUTROPHILS % (AUTO) 35.2 %; PLT - PLATELET COUNT 358 10^3/uL (130-450); RED BLOOD COUNT 4.21 10^6/uL (4.20-5.40); RED CELL DISTRIBUTION WIDTH 15.5 % (12.0-15.0); WHITE BLOOD COUNT 7.2 x10^3/uL (4.8-10.8)
[2020-08-19 05:10] LABS: CALCIUM 8.6 mg/dL (8.5-10.3); CREATININE 0.5 mg/dL (0.4-1.0); POTASSIUM 3.4 mmol/L (3.5-5.0)
[2020-08-19] MEDS: PANTOPRAZOLE 40 MG VIAL IVP SCH (06:05)
[2020-08-19] MEDS: SUCRALFATE 1 GM/10 ML UDC PO SCH ×2 (06:05→11:46)
[2020-08-19] MEDS: METOCLOPRAMIDE 10 MG/2 ML VIAL IVP SCH ×2 (06:08→11:47)
[2020-08-19] MEDS: SODIUM CHLORIDE FLUSH 0.9% 10 ML SYRINGE IVP PRN (06:13)
[2020-08-19] MEDS ORDERED: POTASSIUM CHLORIDE 20 MEQ/15 ML UDC PO SCH (08:00)
[2020-08-19] MEDS: GI COCKTAIL 120 ML BOTTLE PO PRN (08:06)
[2020-08-19] MEDS: INSULIN ASPART 300 UNIT/3 ML PEN SUBQ SCH ×2 (08:10→11:47)
[2020-08-19] MEDS: SODIUM CHLORIDE FLUSH 0.9% 10 ML SYRINGE IVP SCH (08:12)
[2020-08-19] MEDS: ENOXAPARIN 40 MG/0.4 ML SYRINGE SUBQ SCH (08:13)
--- NOTE | 2020-08-19 15:27 | Discharge Plan ---
Discharge Plan Problem Reviewed?: Yes Disposition: Home, Self Care Condition: Stable Diet: Soft (with clear liquids) Activity Restrictions: Activity as Tolerated Shower Restrictions: No Driving Restrictions: No Health Concerns: You presented to the emergency room with intractable nausea and vomiting. Unfortunately this is a recurrent history for you because you have type 1 diabetes and that has left you with gastroparesis. The theory was also that smoking marijuana was contributing to this. You did recently smoke marijuana but it was only 1 or 2 tokes. You are committed to stopping completely in an effort to make sure this does not contribute to your gastroparesis and nausea and vomiting. We placed you in the hospital to treat with IV fluids, nausea med icines, pain medicines and over the last 24 to 48 hours you have been able to tolerate clear liquids and advance to a regular diet that is soft. Plan of Treatment: 1. Please see your primary care provider in follow-up in the next 2 to 3 weeks. 2. You already have an appointment with gastroenterology at [facility] in the first week of September. Please contact them through my chart and email them that you were in the hospital. That you would like to move forward with a gastric pacer. Prior to that you may need another EGD and you would like to schedule that as soon as possible. Care Goals: To be able to eat food normally Assessment: Patient and her (who is at the bedside) understand care goals and will follow through. No Smoking: If you smoke, Please STOP! Call for help. Follow-up with: CARL CLARKE MD [Primary Care Provider] -
[2020-08-19 15:44] VITALS: BP 118/76
--- NOTE | 2020-08-19 15:53 | DISCHARGE SUMMARY ---
Discharge Summary Admit Date: 08/17/20 Discharge Date: 08/19/20 Discharging Provider: Yanni Gay MD Primary Care Provider: Delonte Trevino MD Code Status: Attempt Resuscitation Condition at Discharge: Stable Discharge Disposition: 01 Home, Self Care - DIAGNOSES Discharge Diagnoses with Status of Each Condition: 1. Intractable nausea and vomiting 2. Gastroparesis 3. Type 1 diabetes mellitus, controlled, on long-term use of insulin, with complications of peripheral neuropathy and gastroparesis 4. Acute back pain present on admission 5. Marijuana use 7. Hypokalemia - HPI History of Present Illness: This is a pleasant 25-year-old female with a history of type 1 diabetes mellitus, gastroparesis who presents today complaining of nausea and vomiting. She states her symptoms began on August 08 when she smoked some marijuana. She developed nausea and vomiting immediately after and she was actually ho spitalized here shortly after that for diabetic ketoacidosis as well as intractable nausea/vomiting. She was here for a few days and then was discharged home after she was able to tolerate oral intake. She states after discharge she was doing well initially for the first 2 to 3 days. She was not eating very much but was able to keep food down. She tells me she only had a banana and an Ensure each day. This morning she woke up and she has significant nausea and vomiting and so she came to the emergency department. She states she has associated heartburn and epigastric pain. She denies hematemesis. She denies any diarrhea. Reports only minimal bowel movements due to limited p.o. intake. She states she also has left-sided back pain which is present when she has this significant vomiting. She tells me that she will shake in bed which will help alleviate the pain. The pain is only present at rest. It is alleviated by any movement. She had a CT of the abdomen and pelvis just a few days ago which was unremarkable. She reports no fevers or chills. She does complain of night sweats over the past month. She states initially she thought they were due to low blood sugar but she has not had further episodes of hypoglycemia but she still has night sweats. She reports limited p.o. intake and about 20 pound weight loss over the past few months. She states she just has a poor appetite and food does not appeal to her. She tells me she quit smoking marijuana a few months ago except for that one time on August 08. In the emergency department, she received multiple episodes of antiemetics and a GI cocktail but she continued to have nausea and vomiting and was unable to kristian erate a p.o. challenge. Given these findings, medicine was consulted for admission. - Past Medical History Endocrine/Autoimmune: reports: Type 1 diabetes GI: reports: Other (Gastroparesis.) Psych: reports: Anxiety MRSA Hx?: No Other Past Medical History: gastroparesis - Past Surgical History General: reports: Appendectomy - HOSPITAL COURSE Hospital Course: The patient was placed in observation status and was placed on IV fluids, antiemetics, and judicious use of opiates to control her pain. After 48 hours she was finally able to start keeping down clear liquids. We then progressed to full liquid diet and occasional soft food. On the day of discharge she been able to eat breakfast and lunch without pain, nausea, or vomiting. She was adamant that she is only done a few toke's of marijuana before she came in and she could not believe that this would be contributing to the current episode. She was determined not to do this anymore because she wanted to get this taken care of and enjoy food again. She already is followed by [facility] and is due to see them in September for consideration for gastric pacer. Prior to discharge 40 mEq potassium was ordered to take care of today's hypokalemia She is discharged in stable condition. Temperature 36.9, pulse 85, blood pressure 118/76. Respirations 16 and she is 100% on room air. She is a slender pale female who weighs 47 kg and is 5 foot 3 inches tall. Alert, oriented, lucid speech. is at the bedside. Neck is supple. Lungs are clear to auscultation and percussion without any increased respiratory effort and speaking or walking across the room. Regular rate and rhythm. Abdomen is soft, still mildly tender over the epigastrium where she says that she feels "bruised" from the continuous vomiting. But no rebound or guarding. Normal bowel sounds. Extremities are warm without edema. She is ambulating without any assistance. She is asked to follow-up with her primary care provider in the near future, and follow-up with [facility] in September.Also asked to refrain from any use of cannabis to allow her to be cleared for gastric pacer placement in the near future. - ALLERGIES Allergies/Adverse Reactions: Allergies Allergy/AdvReac Type Severity Reaction Status Date / Time ketorolac [From Toradol] Allergy Rash Verified 08/17/20 18:02 Milk Containing Products Allergy Unknown Verified 08/17/20 18:02 - MEDICATIONS Home Medications: Ambulatory Orders Medication Instructions Recorded Confirmed Insulin Lispro [Humalog] 0 units SUBQ .SLIDING SCALE 08/12/20 08/18/20 Insulin Glargine [Lantus Solostar] 8 units SUBQ QPM #0 08/14/20 08/18/20 Metoclopramide [Reglan] 10 mg PO ACHS tablet 08/14/20 08/18/20 Ondansetron Odt [Zofran Odt] 4 mg TL ACHS tablet 08/14/20 08/18/20 - LABS Result Diagrams: 08/19/20 04:20 08/19/20 04:20
[2020-08-19] MEDS ORDERED: POTASSIUM CHLORIDE 10 MEQ CAPSULE PO ONE (15:57)
== END 2020-08-19 15:45 | disposition home or self-care (01) ==
LOC: ED 17:51 → MS3 23:54
PROVIDERS: ADMIT Internal Medicine; ATTEND Specialist
DX: R11.2 Nausea with vomiting, unspecified (principal); E10.42 Type 1 diabetes mellitus with diabetic polyneuropathy; E10.43 Type 1 diabetes mellitus with diabetic autonomic (poly)neuropathy; K31.84 Gastroparesis; M54.9 Dorsalgia, unspecified; E87.6 Hypokalemia; R63.0 Anorexia; F41.9 Anxiety disorder, unspecified; Z20.822 Contact with and (suspected) exposure to COVID-19
CPT/HCPCS: 0202U; 36415; 80048; 80053; 81003; 82009; 82803; 83690; 85025; 96365; 96366; 96375; 96376; 99284; 99285; A9270; G0378; J1815; J2765; J7120; Q0162; 81001; 87086

== ENCOUNTER 2020-10-22 03:48 | Emergency (ER) | payer OTHER ==
--- NOTE | 2020-10-22 04:02 | ED Physician Documentation ---
PD HPI ABD PAIN - Stated complaint Stated Complaint: AB/BACK PX/ VOMITING - Chief complaint Chief Complaint: Abd Pain - History obtained from History obtained from: Patient - History of Present Illness Timing - onset: How many hours ago (several) Timing - duration: Hours (several) Timing - details: Abrupt onset, Still present Quality: Cramping, Aching, Pain Location: Epigastric, Other (upper abdomen) Radiation: Lower back Improved by: No: Vomiting Worsened by: Eating, Palpation. No: Breathing Associated symptoms: Nausea, Vomiting. No: Fever, Diarrhea, Dysuria Similar symptoms before: Diagnosis (has had similar with both DKA and also without (presumed diabetic gatroparesis versus cannibis related).) Recently seen: Emergency Dept Review of Systems Constitutional: denies: Fever, Chills Nose: denies: Rhinorrhea / runny nose, Congestion Throat: denies: Sore throat Cardiac: denies: Chest pain / pressure, Palpitations Respiratory: denies: Cough GI: reports: Abdominal Pain, Nausea, Vomiting. denies: Diarrhea, Hematemesis, Bloody / black stool : denies: Dysuria Neurologic: reports: Generalized weakness. denies: Altered mental status PD PAST MEDICAL HISTORY - Past Medical History Cardiovascular: None Respiratory: None Neuro: None Endocrine/Autoimmune: Type 1 diabetes GI: Other Psych: Anxiety Derm: None - Past Surgical History Past Surgical History: Yes General: Appendectomy - Present Medications Home Medications: Ambulatory Orders Medication Instructions Recorded Confirmed Insulin Lispro [Humalog] 0 units SUBQ .SLIDING SCALE 08/12/20 08/18/20 Insulin Glargine [Lantus Solostar] 8 units SUBQ QPM #0 08/14/20 08/18/20 Metoclopramide [Reglan] 10 mg PO ACHS tablet 08/14/20 08/18/20 Ondansetron Odt [Zofran Odt] 4 mg TL ACHS tablet 08/14/20 08/18/20 Metoclopramide HCl [Metoclopramide 10 mg PO Q6H PRN #20 10/22/20 HCl Odt] Promethazine Supp [Phenergan Supp] 25 mg [place] Q6H PRN #10 supp 10/22/20 - Allergies Allergies/Adverse Reactions: Allergies Allergy/AdvReac Type Severity Reaction Status Date / Time ketorolac [From Toradol] Allergy Rash Verified 10/22/20 03:59 Milk Containing Products Allergy Unknown Verified 10/22/20 03:59 - Living Situation Living Situation: reports: With spouse/s.o. Living Arrangement: reports: At home - Social History Does the pt smoke?: No Smoking Status: Never smoker Does the pt drink ETOH?: No Does the pt have substance abuse?: Yes Substance Use and Type: Marijuana (states smoked some yesterday) - Immunizations Immunizations are current?: Yes - POLST Patient has POLST: No PD ED PE NORMAL - Vitals Vital signs reviewed: Yes - General General: Alert and oriented X 3, Well developed/nourished, Other (appears in pain with knees drawn up and lying on side, rocking) - HEENT HEENT: Pharynx benign - Neck Neck: Supple, no meningeal sign, No adenopathy - Cardiac Cardiac: RRR, No murmur - Respiratory Respiratory: Clear bilaterally - Abdomen Abdomen: Normal bowel sounds, Soft, Non distended, No organomegaly (tender to light touch in upper abd. No percussion tenderness. ) - Female Female : Deferred - Rectal Rectal: Deferred - Back Back: No CVA TTP - Derm Derm: Normal color, Warm and dry - Neuro Neuro: Alert and oriented X 3, No motor deficit, Normal speech Results - Vitals Vitals: Oxygen O2 Source Room air - Labs Labs: Laboratory Tests 10/22/20 10/22/20 10/22/20 04:20 04:20 04:20 WBC 11.3 H RBC 4.45 Hgb 10.7 L Hct 35.2 L MCV 79.1 L MCH 24.0 L MCHC 30.4 L RDW 15.0 Plt Count 613 H MPV 9.0 Neut # (Auto) 7.8 H Lymph # (Auto) 2.6 [place] # (Auto) 0.8 Eos # (Auto) 0.0 Baso # (Auto) 0.0 Absolute Nucleated RBC 0.00 Nucleated RBC % 0.0 VBG pH VBG pCO2 VBG pO2 VBG HCO3 VBG Total CO2 VBG O2 Saturation VBG Base Excess Sodium 142 Potassium 3.8 Chloride 101 Carbon Dioxide 29 Anion Gap 12.0 BUN 17 Creatinine 0.5 Estimated GFR (MDRD) 149 Glucose 211 H Calcium 9.4 Total Bilirubin 0.7 AST 22 ALT 15 Alkaline Phosphatase 120 Total Protein 8.4 H Albumin 4.5 Globulin 3.9 Albumin/Globulin Ratio 1.2 Lipase 25 Serum HCG, Qual NEGATIVE Serum Ketones NEGATIVE 10/22/20 05:00 WBC RBC Hgb Hct MCV MCH MCHC RDW Plt Count MPV Neut # (Auto) Lymph # (Auto) [place] # (Auto) Eos # (Auto) Baso # (Auto) Absolute Nucleated RBC Nucleated RBC % VBG pH 7.330 VBG pCO2 50.7 VBG pO2 39.5 VBG HCO3 26.1 VBG Total CO2 27.7 VBG O2 Saturation 72.9 VBG Base Excess -0.3 Sodium Potassium Chloride Carbon Dioxide Anion Gap BUN Creatinine Estimated GFR (MDRD) Glucose Calcium Total Bilirubin AST ALT Alkaline Phosphatase Total Protein Albumin Globulin Albumin/Globulin Ratio Lipase Serum HCG, Qual Serum Ketones PD MEDICAL DECISION MAKING - ED course Complexity details: reviewed results, re-evaluated patient (difficult IV stick for nursing. Patient opted for IM and symptoms improved well enough that she felt comfortable going home. ), considered differential (nausea and vomiting with upper abd pain. Has had similar with cyclic vomiting and also with DKA. will get labs to assess for DKA.), d/w patient ED course: diagnoses: nausea and vomiting upper abdominal pain gastroparesis versus cannibis induced hyperemesis diabetes type 1 Departure - Departure Disposition: 01 Home, Self Care Condition: Stable Record reviewed to determine appropriate education?: Yes Instructions: ED Nausea Vomiting Follow-Up: CARL CLARKE MD [Primary Care Provider] - Prescriptions: Metoclopramide HCl [Metoclopramide HCl Odt] 10 mg PO Q6H PRN #20 PRN Reason: Nausea / Vomiting Promethazine Supp [Phenergan Supp] 25 mg [place] Q6H PRN #10 supp PRN Reason: Nausea / Vomiting Comments: Your blood gas and serum ketones are negative or normal so no signs of DKA at this time. I presume your nausea and vomiting were related to gastroparesis or potentially cannabis related hyperemesis. Small frequent fluids this morning and today and increase diet as tolerated. Continue Reglan as needed for nausea. If you are actively vomiting, you could try the Phenergan suppository instead. Return as needed. Discharge Date/Time: 10/22/20 07:05
[2020-10-22] MEDS ORDERED: HYDROmorphone 1 MG/ML CARPUJECT IVP STA (04:11)
[2020-10-22] MEDS ORDERED: DROPERIDOL 5 MG/2 ML VIAL IVP STA (04:11)
[2020-10-22] MEDS ORDERED: SODIUM CHLORIDE 0.9% 1,000 ML IV STA (04:11)
[2020-10-22] MEDS ORDERED: DROPERIDOL 5 MG/2 ML VIAL IM STA (04:54)
[2020-10-22] MEDS ORDERED: HYDROmorphone 2 MG/ML VIAL IM STA ×2 (04:54→05:29)
[2020-10-22 04:56] LABS: BASOPHILS % (AUTO) 0.2 %; HCT - HEMATOCRIT 35.2 % (37.0-47.0); HGB - HEMOGLOBIN 10.7 g/dL (12.0-16.0); LYMPHOCYTES # (AUTO) 2.6 10^3/uL (1.5-3.5); LYMPHOCYTES % (AUTO) 22.6 %; MEAN CORPUSCULAR HGB CONC 30.4 g/dL (32.0-36.0); MEAN CORPUSCULAR VOLUME 79.1 fL (81.0-99.0); MONOCYTES # (AUTO) 0.8 10^3/uL (0.0-1.0); MONOCYTES % (AUTO) 7.4 %; NEUTROPHILS # (AUTO) 7.8 10^3/uL (1.5-6.6); NEUTROPHILS % (AUTO) 69.4 %; PLT - PLATELET COUNT 613 10^3/uL (130-450); RED BLOOD COUNT 4.45 10^6/uL (4.20-5.40); WHITE BLOOD COUNT 11.3 x10^3/uL (4.8-10.8)
[2020-10-22 05:10] LABS: VBG HCO3 26.1 mmol/L (23-28); VBG PCO2 50.7 mmHg (41-51); VBG PH 7.33 (7.31-7.41); VBG PO2 39.5 mmHg (25-47); VBG TOTAL CO2 27.7 mmol/L (24-29)
[2020-10-22 05:11] LABS: VBG BASE EXCESS -0.3 mmol/L (-2 - +2); VBG OXYGEN SATURATION 72.9 % (60-80)
[2020-10-22 05:11] LABS: ALBUMIN 4.5 g/dL (3.2-5.5); ALBUMIN/GLOBULIN RATIO 1.2 (1.0-2.2); ALKALINE PHOSPHATASE 120 IU/L (42-121); ALT ALANINE AMINOTRANSFERASE 15 IU/L (10-60); AST ASPARTATE AMINOTRANSFERASE 22 IU/L (10-42); BILIRUBIN,TOTAL 0.7 mg/dL (0.2-1.0); BUN - BLOOD UREA NITROGEN 17 mg/dL (6-20); CALCIUM 9.4 mg/dL (8.5-10.3); CARBON DIOXIDE - CO2 29 mmol/L (21-32); CHLORIDE 101 mmol/L (101-111); CREATININE 0.5 mg/dL (0.4-1.0); GFR - MDRD 149 (>89); GLUCOSE 211 mg/dL (70-100); LIPASE 25 U/L (22-51); POTASSIUM 3.8 mmol/L (3.5-5.0); SODIUM 142 mmol/L (135-145); TOTAL PROTEIN 8.4 g/dL (6.7-8.2)
[2020-10-22 05:21] LABS: KETONES, SERUM (ACETEST) NEGATIVE (NEGATIVE)
[2020-10-22 05:23] LABS: HCG,QUALITATIVE BLOOD NEGATIVE
[2020-10-22 06:42] VITALS: BP 122/78
== END 2020-10-22 07:05 | disposition home or self-care (01) ==
LOC: ED 03:48
DX: R10.10 Upper abdominal pain, unspecified (principal); R11.2 Nausea with vomiting, unspecified; E10.9 Type 1 diabetes mellitus without complications; Z79.4 Long term (current) use of insulin
CPT/HCPCS: 36415; 80053; 82009; 82803; 83690; 84703; 85025; 96372; 99284; J1170

== ENCOUNTER 2020-12-15 13:18 | Emergency (ER) | payer OTHER ==
[2020-12-15] MEDS ORDERED: HYDROmorphone 1 MG/ML CARPUJECT IVP STA (13:40)
[2020-12-15] MEDS ORDERED: METOCLOPRAMIDE 10 MG/2 ML VIAL IVP STA (13:40)
[2020-12-15] MEDS ORDERED: SODIUM CHLORIDE 0.9% 1,000 ML IV STA (13:41)
--- NOTE | 2020-12-15 13:44 | ED Physician Documentation ---
History of Present Illness - Stated complaint Stated Complaint: NAUSEA/BACK PX/ABD PX - Chief complaint Chief Complaint: Back Pain - History obtained from History obtained from: Patient - Additonal information Additional information: 25-year-old woman with type 1 diabetes and gastroparesis but also a history of potential cannabinoid hyperemesis syndrome. States she quit marijuana back in June or July except for the occasional hit now and then. She has been sick now for 2 days with right upper quadrant pain radiating to the back and vomiting similar to prior episodes of exacerbation of gastroparesis versus CHS. She was seen at [facility] 2 days ago and improved with medications but continues to be sick. Denies possibility of . Review of Systems Ten Systems: 10 systems reviewed and negative Constitutional: reports: Sweats. denies: Fever, Chills Throat: denies: Sore throat Cardiac: denies: Chest pain / pressure, Palpitations Respiratory: denies: Dyspnea, Cough PD PAST MEDICAL HISTORY - Past Medical History Cardiovascular: None Respiratory: None Neuro: None Endocrine/Autoimmune: Type 1 diabetes GI: Other : None HEENT: None Psych: Anxiety Musculoskeletal: None Derm: None - Past Surgical History Past Surgical History: Yes General: Appendectomy - Present Medications Home Medications: Ambulatory Orders Medication Instructions Recorded Confirmed Insulin Lispro [Humalog] 0 units SUBQ .SLIDING SCALE 08/12/20 08/18/20 Insulin Glargine [Lantus Solostar] 8 units SUBQ QPM #0 08/14/20 08/18/20 Metoclopramide [Reglan] 10 mg PO ACHS tablet 08/14/20 08/18/20 Ondansetron Odt [Zofran Odt] 4 mg TL ACHS tablet 08/14/20 08/18/20 Metoclopramide HCl [Metoclopramide 10 mg PO Q6H PRN #20 10/22/20 HCl Odt] Promethazine Supp [Phenergan Supp] 25 mg [place] Q6H PRN #10 supp 10/22/20 - Allergies Allergies/Adverse Reactions: Allergies Allergy/AdvReac Type Severity Reaction Status Date / Time ketorolac [From Toradol] Allergy Rash Verified 12/15/20 13:27 Milk Containing Products Allergy Unknown Verified 12/15/20 13:27 - Social History Does the pt smoke?: No Smoking Status: Never smoker Does the pt drink ETOH?: No Does the pt have substance abuse?: Yes - Immunizations Immunizations are current?: Yes - POLST Patient has POLST: No PD ED PE NORMAL - Vitals Vital signs reviewed: Yes - General General: Alert and oriented X 3, Other (Retching shaky and anxious) - HEENT HEENT: PERRL, EOMI - Neck Neck: Supple, no meningeal sign, No bony TTP - Cardiac Cardiac: RRR, No murmur - Respiratory Respiratory: No respiratory distress, Clear bilaterally - Abdomen Abdomen: Normal bowel sounds, Soft, Non tender - Back Back: No CVA TTP, No spinal TTP - Derm Derm: Normal color, Warm and dry - Extremities Extremities: No edema, No calf tenderness / cord - Neuro Neuro: Alert and oriented X 3, Normal speech Results - Vitals Vitals: Vital Signs - 24 hr 12/15/20 12/15/20 12/15/20 13:23 14:37 15:19 Temperature 36.9 C Heart Rate 106 H 106 H 96 Respiratory 20 20 18 Rate Blood Pressure 154/104 H 122/63 122/88 H O2 Saturation 99 96 98 12/15/20 12/15/20 17:00 17:46 Temperature 36.9 C Heart Rate 75 104 H Respiratory 16 16 Rate Blood Pressure 94/54 L 117/75 O2 Saturation 96 98 Oxygen O2 Source Room air - Labs Labs: Laboratory Tests 12/15/20 12/15/20 12/15/20 13:56 13:56 13:56 WBC 7.2 RBC 5.04 Hgb 11.6 L Hct 38.3 MCV 76.0 L MCH 23.0 L MCHC 30.3 L RDW 15.8 H Plt Count 394 MPV 8.6 Neut # (Auto) 3.4 Lymph # (Auto) 3.1 [place] # (Auto) 0.7 Eos # (Auto) 0.0 Baso # (Auto) 0.0 Absolute Nucleated RBC 0.00 Nucleated RBC % 0.0 VBG pH 7.329 VBG pCO2 44.7 VBG pO2 35.8 VBG HCO3 23.0 VBG Total CO2 24.4 VBG O2 Saturation 67.9 VBG Base Excess -3.0 L Sodium 138 Potassium 3.0 L Chloride 100 L Carbon Dioxide 22 Anion Gap 16.0 H BUN 8 Creatinine 0.7 Estimated GFR (MDRD) 101 Glucose 226 H Calcium 9.1 Total Bilirubin 0.9 AST 22 ALT 15 Alkaline Phosphatase 107 Total Protein 8.1 Albumin 4.4 Globulin 3.7 Albumin/Globulin Ratio 1.2 Lipase 19 L Urine Color Urine Clarity Urine pH Ur Specific [place] Urine Protein Urine Glucose (UA) Urine Ketones Urine Occult Blood Urine Nitrite Urine Bilirubin Urine Urobilinogen Ur Leukocyte Esterase Urine RBC Urine WBC Ur Squamous Epith Cells Urine Bacteria Urine Mucus Ur Microscopic Review Urine Culture Comments Urine HCG, Qual Urine Opiates Screen Ur Oxycodone Screen Urine Methadone Screen Ur Propoxyphene Screen Ur Barbiturates Screen Ur Tricyclics Screen Ur Phencyclidine Scrn Ur Amphetamine Screen U Methamphetamines Scrn U Benzodiazepines Scrn Urine Cocaine Screen U Cannabinoids Screen Serum Ketones NEGATIVE 12/15/20 17:06 WBC RBC Hgb Hct MCV MCH MCHC RDW Plt Count MPV Neut # (Auto) Lymph # (Auto) [place] # (Auto) Eos # (Auto) Baso # (Auto) Absolute Nucleated RBC Nucleated RBC % VBG pH VBG pCO2 VBG pO2 VBG HCO3 VBG Total CO2 VBG O2 Saturation VBG Base Excess Sodium Potassium Chloride Carbon Dioxide Anion Gap BUN Creatinine Estimated GFR (MDRD) Glucose Calcium Total Bilirubin AST ALT Alkaline Phosphatase Total Protein Albumin Globulin Albumin/Globulin Ratio Lipase Urine Color YELLOW Urine Clarity SL. CLOUDY Urine pH 6.0 Ur Specific [place] >=1.030 H Urine Protein NEGATIVE Urine Glucose (UA) 500 H Urine Ketones 40 H Urine Occult Blood TRACE-LYSE Urine Nitrite POSITIVE H Urine Bilirubin NEGATIVE Urine Urobilinogen 0.2 (NORMAL) Ur Leukocyte Esterase SMALL H Urine RBC 0-5 Urine WBC >25 H Ur Squamous Epith Cells FEW Squamous Urine Bacteria Many H Urine Mucus Few Strands Ur Microscopic Review INDICATED Urine Culture Comments INDICATED Urine HCG, Qual NEGATIVE Urine Opiates Screen POSITIVE H Ur Oxycodone Screen NEGATIVE Urine Methadone Screen NEGATIVE Ur Propoxyphene Screen NEGATIVE Ur Barbiturates Screen NEGATIVE Ur Tricyclics Screen NEGATIVE Ur Phencyclidine Scrn NEGATIVE Ur Amphetamine Screen NEGATIVE U Methamphetamines Scrn NEGATIVE U Benzodiazepines Scrn POSITIVE H Urine Cocaine Screen NEGATIVE U Cannabinoids Screen POSITIVE H Serum Ketones PD MEDICAL DECISION MAKING - ED course ED course: 25-year-old woman presents with vomiting and upper abdominal pain consistent with prior episodes of gastroparesis versus CHS. Not much relief with initial round of medications which were Dilaudid and Reglan. More relief from Haldol and Ativan. Able to tolerate p.o.'s. Remained nontender on repeat evaluation. No symptoms of UTI, no burning or frequency or dysuria. Departure - Departure Disposition: 01 Home, Self Care Clinical Impression: Gastroparesis diabeticorum Nausea and vomiting Qualifiers: Vomiting type: unspecified Vomiting Intractability: intractable Qualified Code(s): R11.2 - Nausea with vomiting, unspecified Type 1 diabetes mellitus Qualifiers: Diabetes mellitus complication status: with hyperglycemia Qualified Code(s): E10.65 - Type 1 diabetes mellitus with hyperglycemia Condition: Good Record reviewed to determine appropriate education?: Yes Instructions: ED Nausea Vomiting Comments: Call your doctor to arrange a follow-up appointment, make the next available appointment. In the interim, return anytime if worse or if new symptoms develop. Continue to abstain from marijuana. Discharge Date/Time: 12/15/20 17:49
[2020-12-15 14:02] LABS: VBG PCO2 44.7 mmHg (41-51); VBG PH 7.329 (7.31-7.41); VBG PO2 35.8 mmHg (25-47); VBG TOTAL CO2 24.4 mmol/L (24-29)
[2020-12-15 14:03] LABS: VBG OXYGEN SATURATION 67.9 % (60-80)
[2020-12-15 14:07] LABS: BASOPHILS % (AUTO) 0.1 %; HCT - HEMATOCRIT 38.3 % (37.0-47.0); HGB - HEMOGLOBIN 11.6 g/dL (12.0-16.0); LYMPHOCYTES # (AUTO) 3.1 10^3/uL (1.5-3.5); LYMPHOCYTES % (AUTO) 43.2 %; MEAN CORPUSCULAR HGB CONC 30.3 g/dL (32.0-36.0); MEAN PLATELET VOLUME 8.6 fL (7.9-10.8); MONOCYTES # (AUTO) 0.7 10^3/uL (0.0-1.0); MONOCYTES % (AUTO) 9.6 %; NEUTROPHILS # (AUTO) 3.4 10^3/uL (1.5-6.6); NEUTROPHILS % (AUTO) 46.8 %; PLT - PLATELET COUNT 394 10^3/uL (130-450); RED BLOOD COUNT 5.04 10^6/uL (4.20-5.40); RED CELL DISTRIBUTION WIDTH 15.8 % (12.0-15.0); WHITE BLOOD COUNT 7.2 x10^3/uL (4.8-10.8)
[2020-12-15 14:15] LABS: ALBUMIN 4.4 g/dL (3.2-5.5); ALBUMIN/GLOBULIN RATIO 1.2 (1.0-2.2); ALKALINE PHOSPHATASE 107 IU/L (42-121); ALT ALANINE AMINOTRANSFERASE 15 IU/L (10-60); AST ASPARTATE AMINOTRANSFERASE 22 IU/L (10-42); BILIRUBIN,TOTAL 0.9 mg/dL (0.2-1.0); BUN - BLOOD UREA NITROGEN 8 mg/dL (6-20); CALCIUM 9.1 mg/dL (8.5-10.3); CARBON DIOXIDE - CO2 22 mmol/L (21-32); CHLORIDE 100 mmol/L (101-111); CREATININE 0.7 mg/dL (0.4-1.0); GFR - MDRD 101 (>89); GLUCOSE 226 mg/dL (70-100); LIPASE 19 U/L (22-51); SODIUM 138 mmol/L (135-145); TOTAL PROTEIN 8.1 g/dL (6.7-8.2)
[2020-12-15] MEDS ORDERED: POTASSIUM CHLOR 10 MEQ/100 ML 10 MEQ/100 ML BAG IV STA (14:28)
[2020-12-15] MEDS ORDERED: HALOPERIDOL 5 MG/ML VIAL IVP ONE (14:28)
[2020-12-15 14:53] LABS: KETONES, SERUM (ACETEST) NEGATIVE (NEGATIVE)
[2020-12-15] MEDS ORDERED: LORazepam 2 MG/ML VIAL IVP STA (15:12)
[2020-12-15 17:16] LABS: MUDS CUTOFF CONCENTRATIONS CUTOFF CONC BELOW:
[2020-12-15 17:18] LABS: BILIRUBIN,URINE NEGATIVE (NEGATIVE); GLUCOSE, URINE (UA) 500 mg/dL (NEGATIVE); KETONES,URINE (UA) 40 mg/dL (NEGATIVE); LEUKOCYTE ESTERASE, URINE SMALL (NEGATIVE); NITRITE,URINE POSITIVE (NEGATIVE); OCCULT BLOOD,URINE TRACE-LYSE (NEGATIVE); PROTEIN,URINE NEGATIVE (NEGATIVE); UROBILINOGEN,URINE 0.2 (NORMAL) E.U./dL (NORMAL)
[2020-12-15 17:19] LABS: CLARITY,URINE SL. CLOUDY (CLEAR); HCG UR QUAL NEGATIVE
[2020-12-15 17:25] LABS: BACTERIA,URINE Many /HPF (None Seen); MUCUS,URINE Few Strands; RBC,URINE 0-5 /HPF (0-5); SQUAMOUS EPITHELIAL CELL,UR FEW Squamous (<= Few); WBC,URINE >25 /HPF (0-5)
[2020-12-15 17:27] LABS: AMPHETAMINE SCREEN,URINE NEGATIVE (NEGATIVE); BARBITURATE SCREEN,UR NEGATIVE (NEGATIVE); BENZODIAZEPINES SCREEN, URINE POSITIVE (NEGATIVE); COCAINE SCREEN URINE NEGATIVE (NEGATIVE); METHADONE SCREEN, URINE NEGATIVE (NEGATIVE); METHAMPHETAMINES SCREEN, URINE NEGATIVE (NEGATIVE); OPIATE SCREEN, URINE POSITIVE (NEGATIVE); OXYCODONE SCREEN, URINE NEGATIVE (NEGATIVE); PROPOXYPHENE SCREEN, URINE NEGATIVE (NEGATIVE); THC CANNABINOID SCREEN, URINE POSITIVE (NEGATIVE); TRICYCLIC ANTIDEPRESSANT,URINE NEGATIVE (NEGATIVE)
[2020-12-15 17:46] VITALS: BP 117/75
== END 2020-12-15 17:49 | disposition home or self-care (01) ==
LOC: ED 13:18
DX: E10.43 Type 1 diabetes mellitus with diabetic autonomic (poly)neuropathy (principal); K31.84 Gastroparesis; E10.65 Type 1 diabetes mellitus with hyperglycemia; R11.2 Nausea with vomiting, unspecified
CPT/HCPCS: 36415; 80053; 80306; 81001; 81025; 82009; 82803; 83690; 85025; 87077; 87086; 87181; 96361; 96374; 96375; 99284; 99285; J1170; J2060; J2765; 81003

== ENCOUNTER 2020-12-17 10:46 | Observation (INO) | payer OTHER ==
--- NOTE | 2020-12-17 10:56 | ED Physician Documentation ---
PD HPI ABD PAIN - Stated complaint Stated Complaint: BACK/ABD PX/NAUSEA - Chief complaint Chief Complaint: Abd Pain - History obtained from History obtained from: Patient - History of Present Illness Timing - onset: How many days ago (3-4) Timing - duration: Days (3-4) Timing - details: Gradual onset, Still present Quality: Cramping, Aching, Pain Location: Epigastric, Periumbilical Radiation: No: Lower back, Left flank, Right flank Improved by: No: Vomiting, Meds (had Reglan at home, PO.) Worsened by: Eating Associated symptoms: Nausea, Vomiting (repetitive for several days. Seen 2 days ago with Meds in ER, and improved for half a day, but back again. Persistent vomiting the past day.), Loss of appetite. No: Fever, Hematemesis, Diarrhea, Constipation, Melena Similar symptoms before: Diagnosis (Prior diabetic gastroparesis versus cannibis hyperememsis. She says she had not used cannibis since July except "occasional hits".) Recently seen: Emergency Dept (2 days ago for same.), Admitted (July 2020 for similar.) Review of Systems Constitutional: denies: Fever, Chills Nose: denies: Rhinorrhea / runny nose, Congestion Throat: denies: Sore throat Cardiac: denies: Chest pain / pressure, Palpitations Respiratory: denies: Dyspnea, Cough GI: reports: Abdominal Pain, Nausea, Vomiting. denies: Constipation, Diarrhea : denies: Dysuria, Frequency Skin: denies: Rash, Lesions Neurologic: reports: Generalized weakness. denies: Focal weakness, Near syncope, Altered mental status, Headache Immunocompromised: denies: Immunocompromised PD PAST MEDICAL HISTORY - Past Medical History Cardiovascular: None Respiratory: None Neuro: None Endocrine/Autoimmune: Type 1 diabetes GI: Other : None HEENT: None Psych: Anxiety Musculoskeletal: None Derm: None - Past Surgical History Past Surgical History: Yes General: Appendectomy - Present Medications Home Medications: Ambulatory Orders Medication Instructions Recorded Confirmed Insulin Lispro [Humalog] 0 units SUBQ .SLIDING SCALE 08/12/20 08/18/20 Insulin Glargine [Lantus Solostar] 8 units SUBQ QPM #0 08/14/20 08/18/20 Metoclopramide HCl [Metoclopramide 10 mg PO Q6H PRN #20 10/22/20 HCl Odt] Famotidine [Pepcid] 20 mg PO DAILY #20 tablet 12/17/20 HYDROcod/ACETAM 5/325 [[place] 5/325] 1 ea PO Q6H PRN #12 tablet 12/17/20 Metoclopramide HCl [Metoclopramide 10 mg PO Q6H PRN #15 12/17/20 HCl Odt] Promethazine Supp [Phenergan Supp] 25 mg [place] Q6H PRN #10 supp 12/17/20 cephALEXin [Keflex] 500 mg PO TID #20 cap 12/17/20 - Allergies Allergies/Adverse Reactions: Allergies Allergy/AdvReac Type Severity Reaction Status Date / Time ketorolac [From Toradol] Allergy Rash Verified 12/17/20 10:53 Milk Containing Products Allergy Unknown Verified 12/17/20 10:53 - Living Situation Living Situation: reports: With spouse/s.o. Living Arrangement: reports: At home - Social History Does the pt smoke?: No Smoking Status: Never smoker Does the pt drink ETOH?: No Does the pt have substance abuse?: Yes Substance Use and Type: Marijuana (not regularly since July, but occasional still. ) - Immunizations Immunizations are current?: Yes - POLST Patient has POLST: No PD ED PE NORMAL - Vitals Vital signs reviewed: Yes - General General: Alert and oriented X 3, Well developed/nourished, Other (Is in significant distress with holding her upper abdomen and knees drawn in. She is shaking and quivering due to the pain. Crying out loud.) - HEENT HEENT: Pharynx benign. No: Moist mucous membranes - Neck Neck: Supple, no meningeal sign, No adenopathy - Cardiac Cardiac: No murmur. No: RRR (tachycardic) - Respiratory Respiratory: Clear bilaterally - Abdomen Abdomen: Normal bowel sounds, Soft, Non distended, No organomegaly, Other (She is tender in the periumbilical mid abdomen and also epigastric area with some local guarding. Some tender in the right upper quadrant.) - Female Female : Deferred - Rectal Rectal: Deferred - Back Back: Other (Mildly tender in the right CVA area.) - Derm Derm: Normal color, Warm and dry - Extremities Extremities: No tenderness to palpate, Normal ROM s pain, No edema - Neuro Neuro: Alert and oriented X 3, No motor deficit, Normal speech Results - Vitals Vitals: Vital Signs - 24 hr 12/17/20 12/17/20 10:51 12:00 Temperature 36.4 C L Heart Rate 129 H 83 Respiratory 26 H 16 Rate Blood Pressure 132/48 H 91/52 L O2 Saturation 96 96 Oxygen O2 Source Room air - Labs Labs: Laboratory Tests 12/17/20 12/17/20 12/17/20 11:12 11:12 14:40 WBC 9.3 RBC 4.41 Hgb 10.3 L Hct 33.0 L MCV 74.8 L MCH 23.4 L MCHC 31.2 L RDW 15.7 H Plt Count 370 MPV 8.2 Neut # (Auto) 7.2 H Lymph # (Auto) 1.5 [place] # (Auto) 0.6 Eos # (Auto) 0.0 Baso # (Auto) 0.0 Absolute Nucleated RBC 0.00 Nucleated RBC % 0.0 Sodium 137 Potassium 3.4 L Chloride 101 Carbon Dioxide 18 L Anion Gap 18.0 H BUN 5 L Creatinine 0.7 Estimated GFR (MDRD) 101 Glucose 144 H Calcium 9.2 Magnesium 1.6 L Total Bilirubin 1.2 H AST 22 ALT 16 Alkaline Phosphatase 104 Total Protein 7.7 Albumin 4.5 Globulin 3.2 Albumin/Globulin Ratio 1.4 Lipase 20 L Urine Color YELLOW Urine Clarity CLEAR Urine pH 6.0 Ur Specific [place] >=1.030 H Urine Protein NEGATIVE Urine Glucose (UA) NEGATIVE Urine Ketones >=80 H Urine Occult Blood TRACE-INTA Urine Nitrite NEGATIVE Urine Bilirubin NEGATIVE Urine Urobilinogen 0.2 (NORMAL) Ur Leukocyte Esterase NEGATIVE Ur Microscopic Review NOT INDICATED Urine Culture Comments NOT INDICATED Urine HCG, Qual NEGATIVE Serum Ketones SMALL H - Rads (name of study) RUQ Abd U/S Radiology: Prelim report reviewed (Mild sludge in the gallbladder but no stones nor wall thickening nor pericholecystic fluid.), See rad report PD MEDICAL DECISION MAKING - ED course Complexity details: reviewed results, re-evaluated patient (improved with fluids and med after couple rounds of dosing. ), considered differential, d/w patient ED course: I thought the patient was improved enough with IV fluids and couple of doses of medications for nausea and pain. Also given famotidine for presumed gastritis. Ultrasound was negative for gallbladder process. She was treated with Rocephin for a positive urine culture obtained 2 days ago. She had not been treated for this as yet. However she had onset of symptoms again after seeming like should be improved enough for discharge. Similarly significant shaking and pain and nausea with vomiting. She is given another dosing of medicines with some improvement but not come pleat enough to feel good. The recurrence of the nausea was after attempting p.o. fluids. At this point I am dubious the patient was able to be treated outpatient given as she had had continued symptoms despite attempts at outpatient antiemetics the last couple of days. I talked with the hospitalist who agreed to have the patient in the hospital for further treatment Departure - Departure Disposition: ED Place in Observation Clinical Impression: Acute upper abdominal pain, Cyclical vomiting with nausea Nausea and vomiting Qualifiers: Vomiting type: unspecified Vomiting Intractability: non-intractable Qualified Code(s): R11.2 - Nausea with vomiting, unspecified UTI (urinary tract infection) Qualifiers: Urinary tract infection type: acute cystitis Hematuria presence: without hematuria Qualified Code(s): N30.00 - Acute cystitis without hematuria Type 1 diabetes mellitus Qualifiers: Diabetes mellitus complication status: without complication Qualified Code(s): E10.9 - Type 1 diabetes mellitus without complications Condition: Stable Record reviewed to determine appropriate education?: Yes Instructions: ED UTI Cystitis Female, ED Nausea Vomiting Prescriptions: cephALEXin [Keflex] 500 mg PO TID #20 cap Metoclopramide HCl [Metoclopramide HCl Odt] 10 mg PO Q6H PRN #15 PRN Reason: Nausea / Vomiting HYDROcod/ACETAM 5/325 [[place] 5/325] 1 ea PO Q6H PRN #12 tablet PRN Reason: Pain Famotidine [Pepcid] 20 mg PO DAILY #20 tablet Promethazine Supp [Phenergan Supp] 25 mg [place] Q6H PRN #10 supp PRN Reason: Nausea / Vomiting Comments: Continue usual medications. Stay well-hydrated. Use antiemetic tablet dissolving tablet or suppository as needed for nausea control. Pain medication as needed short term. Your lab tests are good without any signs of gallbladder or liver problems. Ultrasound did not show any signs of gallbladder inflammation. Presume there is some irritation of the stomach with the vomiting that you have been having and consider use of an acid reducing medicine daily for the next couple of weeks. Your urine culture from couple of days ago does show an infection that we can treat with an antibiotic cephalexin as directed. Recheck if not improved well over the next couple of days and return if worsening.
[2020-12-17] MEDS ORDERED: SODIUM CHLORIDE 0.9% 1,000 ML IV STA ×3 (11:02→15:13)
[2020-12-17] MEDS ORDERED: LORazepam 2 MG/ML VIAL IVP STA (11:03)
[2020-12-17] MEDS ORDERED: DROPERIDOL 5 MG/2 ML VIAL IVP STA ×2 (11:03→12:50)
[2020-12-17 11:24] LABS: BASOPHILS % (AUTO) 0.2 %; EOSINOPHILS % (AUTO) 0.1 %; HGB - HEMOGLOBIN 10.3 g/dL (12.0-16.0); LYMPHOCYTES # (AUTO) 1.5 10^3/uL (1.5-3.5); LYMPHOCYTES % (AUTO) 15.9 %; MEAN CORPUSCULAR HEMOGLOBIN 23.4 pg (27.0-31.0); MEAN CORPUSCULAR HGB CONC 31.2 g/dL (32.0-36.0); MEAN CORPUSCULAR VOLUME 74.8 fL (81.0-99.0); MEAN PLATELET VOLUME 8.2 fL (7.9-10.8); MONOCYTES # (AUTO) 0.6 10^3/uL (0.0-1.0); MONOCYTES % (AUTO) 6.3 %; NEUTROPHILS # (AUTO) 7.2 10^3/uL (1.5-6.6); NEUTROPHILS % (AUTO) 77.2 %; PLT - PLATELET COUNT 370 10^3/uL (130-450); RED BLOOD COUNT 4.41 10^6/uL (4.20-5.40); RED CELL DISTRIBUTION WIDTH 15.7 % (12.0-15.0); WHITE BLOOD COUNT 9.3 x10^3/uL (4.8-10.8)
[2020-12-17 11:25] LABS: KETONES, SERUM (ACETEST) SMALL (NEGATIVE)
[2020-12-17 11:33] LABS: ALBUMIN 4.5 g/dL (3.2-5.5); ALBUMIN/GLOBULIN RATIO 1.4 (1.0-2.2); ALKALINE PHOSPHATASE 104 IU/L (42-121); ALT ALANINE AMINOTRANSFERASE 16 IU/L (10-60); AST ASPARTATE AMINOTRANSFERASE 22 IU/L (10-42); BILIRUBIN,TOTAL 1.2 mg/dL (0.2-1.0); BUN - BLOOD UREA NITROGEN 5 mg/dL (6-20); CALCIUM 9.2 mg/dL (8.5-10.3); CARBON DIOXIDE - CO2 18 mmol/L (21-32); CHLORIDE 101 mmol/L (101-111); CREATININE 0.7 mg/dL (0.4-1.0); GFR - MDRD 101 (>89); GLUCOSE 144 mg/dL (70-100); LIPASE 20 U/L (22-51); MAGNESIUM 1.6 mg/dL (1.7-2.8); POTASSIUM 3.4 mmol/L (3.5-5.0); SODIUM 137 mmol/L (135-145); TOTAL PROTEIN 7.7 g/dL (6.7-8.2)
[2020-12-17] MEDS ORDERED: HYDROmorphone 1 MG/ML CARPUJECT IVP STA ×2 (11:35→14:44)
[2020-12-17] MEDS ORDERED: cefTRIAXone 1 GM VIAL IVP STA (11:48)
--- NOTE | 2020-12-17 12:05 | Ultrasound Report ---
PROCEDURE: Abdomen Limited INDICATIONS: upper abd pain and vomiting for 5-6 days TECHNIQUE: Real-time focused scanning was performed of the abdomen, with image documentation. COMPARISON: August 12, 2020 CT abdomen/pelvis FINDINGS: Normal echotexture of the liver. Liver length is 13.4 cm. Gallbladder is distended with sludge. No visualized stones. Gallbladder wall thickness of 2 mm, withi n normal limits. Common bile duct is without a filling defect. Diameter is 4 mm, within normal limits. Visualized portions of the pancreas are unremarkable. Right kidney length of 10.9 cm with cortical thickness of 1.8 cm. Mild pelviectasis. Inferior vena cava is patent. IMPRESSION: Sludge within the gallbladder without visualized gallstones or findings of acute cholecystitis. Mild pelviectasis of the right kidney. Reviewed by: Prakash Donovan on 12/17/2020 11:04 AM ROSENDO Approved by: Prakash Donovan on 12/17/2020 11:04 AM ROSENDO Station ID: [id number]
[2020-12-17] MEDS ORDERED: MAG HYDROX/AL HYDROX/SIMETH 30 ML UDC PO STA (12:50)
[2020-12-17] MEDS ORDERED: PROMETHAZINE INJ 12.5 MG in SODIUM CHLORIDE 0.9% 50 ML IV STA (14:44)
[2020-12-17 14:49] LABS: BILIRUBIN,URINE NEGATIVE (NEGATIVE); GLUCOSE, URINE (UA) NEGATIVE (NEGATIVE); KETONES,URINE (UA) >=80 mg/dL (NEGATIVE); LEUKOCYTE ESTERASE, URINE NEGATIVE (NEGATIVE); NITRITE,URINE NEGATIVE (NEGATIVE); OCCULT BLOOD,URINE TRACE-INTA (NEGATIVE); PROTEIN,URINE NEGATIVE (NEGATIVE); UROBILINOGEN,URINE 0.2 (NORMAL) E.U./dL (NORMAL)
[2020-12-17 14:59] LABS: CLARITY,URINE CLEAR (CLEAR); HCG UR QUAL NEGATIVE
[2020-12-17] MEDS ORDERED: ZOLPIDEM 5 MG TABLET PO PRN (15:11)
--- NOTE | 2020-12-17 16:08 | HISTORY & PHYSICAL EXAMINATION ---
Chief Complaint - Chief Complaint Chief Complaint: Nausea and vomiting History of Present Illness - Admitted From Admitted From:: Emergency department via home - History Obtained From Records Reviewed: ED records History obtained from: Patient and Dr. Marquez, ED physician Exam Limitations: None - History of Present Illness HPI Comment/Other: Patient is a 25-year-old female with a known history of type 1 diabetes mellitus and gastroparesis who presents to the emergency department with several days of intractable nausea and vomiting and epigastric abdominal pain.She presented to the ED 2 days prior with the same symptoms and was temporarily able to keep water and food down, and was discharged home after several doses of antiemetics and IV fluids. However, today patient woke up with an episode of vomiting and abdominal pain since then has been antibiotic keep things down. In the ED, she received 2 L of normal saline, dose of Zofran, and a dose of Reglan, and continued to be unable to tolerate liquids. Labs showed mild evidence of ketones in the serum with a normal anion gap and without evidence of diabetic ketoacidosis. An abdominal ultrasound was also performed. It demonstrated evidence of sludge within the gallbladder but no evidence of acute cholecystitis and no other acute findings to explain the patient's symptoms. The patient does admit to a history of marijuana use however she recalls that on previous episodes of nausea and vomiting she had been advised by physicians and healthcare providers to avoid marijuana as it can cause intractable nausea and vomiting and she tells me today that she has since then not used it very much at all. Incidentally, patient also had a urinalysis done on the previous ED visit which now shows evidence of UTI and was given 1 dose of ceftriaxone in the ED. Given the patient's intractable nausea and vomiting despite several hours in the ED, hospital admission was requested. History - Past Medical History Cardiovascular: reports: None Respiratory: reports: None Neuro: reports: None Endocrine/Autoimmune: reports: Type 1 diabetes GI: reports: Other : reports: None HEENT: reports: None Psych: reports: Anxiety Musculoskeletal: reports: None Derm: reports: None MRSA Hx?: No - Past Surgical History General: reports: Appendectomy - Family & Social History Family History: Mother: Alive and Well, Father: Alive and Well Family History Comment/Other: She reports her parents are healthy. Her great grandmother on her father's side had type 2 diabetes. Living arrangement: At home Living Situation: With spouse/s.o. Social History Notes: Lives at home with her . She denies any smoking or alcohol use. Previous history of marijuana use but she quit until her most recent use on August 08. - Substance History Use: Uses substance without health or social issues: Cannabis - POLST Patient has POLST: No Meds/Allgy - Home Medications Home Medications: Ambulatory Orders Medication Instructions Recorded Confirmed Insulin Lispro [Humalog] 0 units SUBQ .SLIDING SCALE 08/12/20 08/18/20 Insulin Glargine [Lantus Solostar] 8 units SUBQ QPM #0 08/14/20 08/18/20 Metoclopramide HCl [Metoclopramide 10 mg PO Q6H PRN #20 10/22/20 HCl Odt] Famotidine [Pepcid] 20 mg PO DAILY #20 tablet 12/17/20 HYDROcod/ACETAM 5/325 [[place] 5/325] 1 ea PO Q6H PRN #12 tablet 12/17/20 Metoclopramide HCl [Metoclopramide 10 mg PO Q6H PRN #15 12/17/20 HCl Odt] Promethazine Supp [Phenergan Supp] 25 mg MO Q6H PRN #10 supp 12/17/20 cephALEXin [Keflex] 500 mg PO TID #20 cap 12/17/20 - Allergies Allergies/Adverse Reactions: Allergies Allergy/AdvReac Type Severity Reaction Status Date / Time ketorolac [From Toradol] Allergy Rash Verified 12/17/20 10:53 Milk Containing Products Allergy Unknown Verified 12/17/20 10:53 Prior Level of Functionality: Fully independent Exam - Vital Signs Reviewed Vital Signs: Yes Vital Signs: Vital Signs x48h Temp Pulse Resp BP Pulse Ox 12/17/20 15:59 95 16 107/72 97 12/17/20 14:00 84 16 95/60 97 12/17/20 12:00 83 16 91/52 L 96 12/17/20 10:51 36.4 C L 129 H 26 H 132/48 H 96 - Physical Exam General Appearance: positive: No acute distress Eyes Bilateral: positive: Normal inspection ENT: positive: ENT inspection nml Neck: positive: Nml inspection Respiratory: positive: Chest non-tender, No respiratory distress, Breath sounds nml Cardiovascular: positive: Regular rate & rhythm, No murmur Abdomen: positive: No organomegaly, Nml bowel sounds, No distention, Tenderness (Mild epigastric tenderness) Skin: positive: Color nml Extremities: positive: Full ROM, Nml appearance Neurologic/Psychiatric: positive: Oriented x3, CN's nml (2-12) Conclusion/Plan - Problem List (1) Cyclical vomiting with nausea Conclusion/Plan: Intractable nausea and vomiting with history of gastroparesis. Patient denies recent heavy marijuana use. Underlying etiology may be related to UTI. Patient will be placed in observation with IV fluids, now NS with 20 of potassium. We will treat underlying UTI with Rocephin IV. Continue antiemetics, Zofran and Reglan as needed. Initiate clear liquid diet and advance as tolerated once able to keep liquids down. Monitor labs for electrolyte disturbances. Patient also admits she has not had a bowel movement in 2 days, will add bowel regimen as this may help. (2) Type 1 diabetes mellitus Conclusion/Plan: No evidence of DKA. Patient has functioning insulin pump which will be primary method of controlling blood sugar. When able to tolerate diet, start carb controlled diet. Repeat labs in a.m., monitor for electrolyte disturbances. Qualifiers: Diabetes mellitus complication status: without complication Qualified Code(s): E10.9 - Type 1 diabetes mellitus without complications (3) UTI (urinary tract infection) Conclusion/Plan: Afebrile with no leukocytosis. Continue IV ceftriaxone. Qualifiers: Urinary tract infection type: acute cystitis Hematuria presence: without hematuria Qualified Code(s): N30.00 - Acute cystitis without hematuria - Lab Results Lab results reviewed: Yes Fish Bones: 12/17/20 11:12 12/17/20 11:12 - Diagnostic Imaging Results Diagnostic Imaging Results: positive: Final report reviewed Core Measures - Anticipated LOS I expect patient to be DC'd or transferred within 96 hours.: Yes - DVT/VTE - Prophylaxis VTE/DVT Device ordered at admit?: Yes
[2020-12-17] MEDS ORDERED: DOCUSATE SODIUM 100 MG CAPSULE PO PRN (16:11)
[2020-12-17 16:29] LABS: B. PARAPERTUSSIS- RESP PCR PAN NOT DETECTED; B. PERTUSSIS- RESP PCR PANEL NOT DETECTED; C. PNEUMONIAE- RESP PCR PANEL NOT DETECTED; CORONAVIRUS 229E-RESP PCR NOT DETECTED; CORONAVIRUS HKU1-RESP PCR NOT DETECTED; CORONAVIRUS NL63-RESP PCR NOT DETECTED; CORONAVIRUS OC43-RESP PCR NOT DETECTED; HUMAN METAPNEUMOVIRUS NOT DETECTED; INFLUENZA A- RESP PCR PANEL NOT DETECTED; INFLUENZA B - RESP PCR PANEL NOT DETECTED; M. PNEUMONIAE- RESP PCR PANEL NOT DETECTED; PARAINFLUENZA VIRUS 1 NOT DETECTED; PARAINFLUENZA VIRUS 2 NOT DETECTED; PARAINFLUENZA VIRUS 3 NOT DETECTED; PARAINFLUENZA VIRUS 4 NOT DETECTED; RHINOVIRUS/ENTEROVIRUS NOT DETECTED; RSV- RESP PCR PANEL NOT DETECTED; SARS-CoV-2 -RESP PCR PANEL NOT DETECTED
[2020-12-17] MEDS: NS W/20 MEQ KCL 1,000 ML IV SCH (16:34)
[2020-12-17] MEDS: INSULIN ASPART 300 UNIT/3 ML PEN SUBQ SCH ×2 (17:47→20:42)
[2020-12-17] MEDS: SODIUM CHLORIDE FLUSH 0.9% 10 ML SYRINGE IVP SCH (17:47)
[2020-12-17] MEDS: HYDROmorphone 1 MG/ML CARPUJECT IVP PRN (21:16)
[2020-12-18] MEDS ORDERED: DEXTROSE GEL 37.5 GM TUBE PO ONE (00:13)
[2020-12-18] MEDS: SODIUM CHLORIDE FLUSH 0.9% 10 ML SYRINGE IVP SCH ×3 (00:20→20:05)
[2020-12-18] MEDS: ONDANSETRON 4 MG/2 ML VIAL IVP PRN ×3 (04:40→16:53)
[2020-12-18] MEDS: DEXTROSE GEL 37.5 GM TUBE PO ONE ×2 (04:45→11:32)
[2020-12-18] MEDS: HYDROmorphone 1 MG/ML CARPUJECT IVP PRN ×4 (04:46→20:02)
[2020-12-18 05:49] LABS: BASOPHILS % (AUTO) 0.2 %; HCT - HEMATOCRIT 32.5 % (37.0-47.0); HGB - HEMOGLOBIN 9.7 g/dL (12.0-16.0); LYMPHOCYTES # (AUTO) 4.6 10^3/uL (1.5-3.5); LYMPHOCYTES % (AUTO) 49.2 %; MEAN CORPUSCULAR HEMOGLOBIN 22.6 pg (27.0-31.0); MEAN CORPUSCULAR HGB CONC 29.8 g/dL (32.0-36.0); MEAN CORPUSCULAR VOLUME 75.8 fL (81.0-99.0); MEAN PLATELET VOLUME 8.8 fL (7.9-10.8); MONOCYTES # (AUTO) 0.9 10^3/uL (0.0-1.0); MONOCYTES % (AUTO) 10.1 %; NEUTROPHILS # (AUTO) 3.7 10^3/uL (1.5-6.6); NEUTROPHILS % (AUTO) 40.3 %; PLT - PLATELET COUNT 368 10^3/uL (130-450); RED BLOOD COUNT 4.29 10^6/uL (4.20-5.40); RED CELL DISTRIBUTION WIDTH 16.2 % (12.0-15.0); WHITE BLOOD COUNT 9.3 x10^3/uL (4.8-10.8)
[2020-12-18 06:09] LABS: BUN - BLOOD UREA NITROGEN < 5 mg/dL (6-20); CALCIUM 8.6 mg/dL (8.5-10.3); CARBON DIOXIDE - CO2 21 mmol/L (21-32); CHLORIDE 107 mmol/L (101-111); CREATININE 0.5 mg/dL (0.4-1.0); GFR - MDRD 149 (>89); GLUCOSE 91 mg/dL (70-100); MAGNESIUM 1.8 mg/dL (1.7-2.8); SODIUM 140 mmol/L (135-145)
[2020-12-18] MEDS: NS W/20 MEQ KCL 1,000 ML IV SCH ×2 (06:17→20:05)
[2020-12-18 07:23] LABS: % IRON SATURATION 4 % (20-50); IRON 20 ug/dL (28-170); TOTAL IRON BINDING CAPACITY 476 ug/dL (250-450); TRANSFERRIN 340 mg/dL (192-382)
[2020-12-18] MEDS: INSULIN ASPART 300 UNIT/3 ML PEN SUBQ SCH ×4 (07:40→21:17)
[2020-12-18] MEDS ORDERED: POTASSIUM CHLOR 10 MEQ/100 ML 10 MEQ/100 ML BAG IV ONE ×3 (08:41→11:41)
[2020-12-18] MEDS ORDERED: cefTRIAXone 1 GM VIAL IVP SCH (09:00)
[2020-12-18] MEDS: ACETAMINOPHEN 325 MG TABLET PO PRN (09:03)
[2020-12-18] MEDS: PANTOPRAZOLE 40 MG VIAL IV SCH (09:03)
[2020-12-18] MEDS: SODIUM CHLORIDE FLUSH 0.9% 10 ML SYRINGE IVP PRN (09:05)
[2020-12-18] MEDS: cefTRIAXone 1 GM in SODIUM CHLORIDE 0.9% MINIBAG 100 ML IV SCH (09:09)
[2020-12-18] MEDS: POTASSIUM CHLOR 10 MEQ/100 ML 10 MEQ/100 ML BAG IV SCH ×4 (10:30→18:07)
--- NOTE | 2020-12-18 11:41 | PHARMACY PROGRESS NOTE ---
- Best Possible Medication History Admit Date and Time: 12/17/20 1511 Processed by: Pharmacy Medication History completed: Yes Patient Interview: Completed Secondary Source(s): Pharmacy records, Insurance records Medication list also includes prescriptions from the ER last night (Keflex, Pepcid, [place], Reglan, Phenergan), which patient has not picked up. As the person ultimately responsible for medication therapy, providers are able to order a medication from an existing home medication list in [facility] via the "Reconcile Routine" prior to Confirmation of that medication by patient support partner. Such practice is discouraged except when the physician, in their clinical judgment, deems that a medical need exists for a medication without regard to previous use.
[2020-12-18] MEDS ORDERED: DEXTROSE 50% ABBOJECT 25 GM/50 ML SYRINGE IVP ONE (11:42)
--- NOTE | 2020-12-18 11:48 | PROVIDER PROGRESS NOTE ---
Subjective - Prog Note Date Prog Note Date: 12/18/20 Prog Note Time: 11:46 - Subjective Pt reports feeling: No change (Continues to have nausea and vomiting. Has low back pain that she relates always happens when she has her nausea and vomiting.) Current Medications - Current Medications Current Medications: Current Medications Generic Name Dose Route Start Last Admin Trade Name Freq PRN Reason Stop Dose Admin Acetaminophen 650 mg 12/17/20 15:11 12/18/20 09:03 Acetaminophen 325 Mg Tablet PO 650 mg Q4HR PRN Administration Pain 1 to 4 Hydromorphone HCl 1 mg 12/17/20 21:08 12/18/20 09:04 Hydromorphone 1 Mg/Ml Carpuject IVP 1 mg Q2HR PRN Administration PAIN Potassium Chloride/Sodium Chloride 1,000 mls @ 75 mls/hr 12/17/20 16:00 12/18/20 06:17 Normal Saline 0.9% W/20 Meq Kcl IV 75 mls/hr .[id number] LETICIA Administration Ceftriaxone Sodium 1 gm/ 100 mls @ 200 mls/hr 12/18/20 09:00 12/18/20 09:09 Sodium Chloride IV 200 mls/hr DAILY LETICIA Administration Potassium Chloride 10 meq in 100 mls @ 100 mls/hr 12/18/20 08:30 12/18/20 10:30 Potassium Chloride IV 12/18/20 12:29 100 mls/hr Q1H LETICIA Administration Insulin Aspart 1 - 9 unit 12/17/20 17:00 12/18/20 07:40 Insulin Aspart 300 Unit/3 Ml Pen SUBQ Not Given 0800,1200,1700,2100 [facility] Protocol Ondansetron HCl 4 mg 12/17/20 15:11 12/18/20 11:39 Ondansetron 4 Mg/2 Ml Vial IVP 4 mg Q6HR PRN Administration Nausea / Vomiting Pantoprazole Sodium 40 mg 12/18/20 09:00 12/18/20 09:03 Pantoprazole 40 Mg Vial IV 40 mg DAILY LETICIA Administration Sodium Chloride 10 ml 12/17/20 15:11 12/18/20 09:05 Sodium Chloride Flush 0.9% 10 Ml Syringe IVP 10 ml PRN PRN Administration NEEDED PER PROVIDER ORDERS Sodium Chloride 10 ml 12/17/20 17:00 12/18/20 10:57 Sodium Chloride Flush 0.9% 10 Ml Syringe IVP Not Given 0100,0900,1700 [facility] Objective - Vital Signs/Intake & Output Reviewed Vital Signs: Yes Vital Signs: Vital Signs x48h Temp Pulse Resp BP Pulse Ox 12/18/20 11:20 36.6 C 101 H 19 131/85 H 98 12/18/20 07:33 37.1 C 96 18 139/90 H 99 12/18/20 05:36 37.0 C 98 20 144/89 H 97 Intake & Output: Intake & Output 12/15/20 12/16/20 12/17/20 12/18/20 23:59 23:59 23:59 23:59 Intake Total 3670.5 1500 Balance 3670.5 1500 - Objective General Appearance: positive: Mild distress (Patient was feeling nauseous at the time of exam, had small amounts of clear liquid emesis) Eyes Bilateral: positive: Normal inspection Neck: positive: Nml inspection, Thyroid nml, No JVD Respiratory: positive: Chest non-tender, No respiratory distress, Breath sounds nml Cardiovascular: positive: Regular rate & rhythm, No murmur, No gallop Abdomen: positive: Tenderness (Tender at epigastric region), Other (Insulin pump attachment noted) Back: positive: Other (Has neck pain on the paraspinals of the lower thoracic upper lumbar region which when palpated patient states feels better.). negative: CVA tenderness (R), CVA tenderness (L) Skin: positive: Color nml Extremities: positive: Nml appearance Neurologic/Psychiatric: positive: Oriented x3, CN's nml (2-12), Motor nml - Lab Results Fish Bones: 12/18/20 05:10 12/18/20 05:10 Other Labs: Lab Results x24hrs 12/18/20 12/18/20 12/18/20 Range/Units 11:29 11:06 07:32 WBC (4.8-10.8) x10^3/uL RBC (4.20-5.40) 10^6/uL Hgb (12.0-16.0) g/dL Hct (37.0-47.0) % MCV (81.0-99.0) fL MCH (27.0-31.0) pg MCHC (32.0-36.0) g/dL RDW (12.0-15.0) % Plt Count (130-450) 10^3/uL MPV (7.9-10.8) fL Neut # (Auto) (1.5-6.6) 10^3/uL Lymph # (Auto) (1.5-3.5) 10^3/uL [place] # (Auto) (0.0-1.0) 10^3/uL Eos # (Auto) (0.0-0.7) 10^3/uL Baso # (Auto) (0.0-0.1) 10^3/uL Absolute Nucleated RBC x10^3/uL Nucleated RBC % /100WBC Sodium (135-145) mmol/L Potassium (3.5-5.0) mmol/L Chloride (101-111) mmol/L Carbon Dioxide (21-32) mmol/L Anion Gap (6-13) BUN (6-20) mg/dL Creatinine (0.4-1.0) mg/dL Estimated GFR (MDRD) (>89) Glucose (70-100) mg/dL POC Whole Bld Glucose 53 L* 62 L 120 H (70 - 100) mg/dL Calcium (8.5-10.3) mg/dL Magnesium (1.7-2.8) mg/dL Iron (28-170) ug/dL TIBC (250-450) ug/dL % Saturation (20-50) % Transferrin (192-382) mg/dL Ferritin (11.0-306.8) ng/mL Urine Color Urine Clarity (CLEAR) Urine pH (5.0-7.5) PH Ur Specific [place] (1.002-1.030) Urine Protein (NEGATIVE) mg/dL Urine Glucose (UA) (NEGATIVE) mg/dL Urine Ketones (NEGATIVE) mg/dL Urine Occult Blood (NEGATIVE) Urine Nitrite (NEGATIVE) Urine Bilirubin (NEGATIVE) Urine Urobilinogen (NORMAL) E.U./dL Ur Leukocyte Esterase (NEGATIVE) Ur Microscopic Review Urine Culture Comments Urine HCG, Qual Nasal Adenovirus (PCR) Nasal B. parapertussis DNA (PCR) Nasal Coronavir 229E PCR Nasal Coronavir HKU1 PCR Nasal Coronavir NL63 PCR Nasal Coronavir OC43 PCR Nasal Enterovir/Rhinovir PCR Nasal Influenza B PCR Nasal Influenza A PCR Nasal Parainfluen 1 PCR Nasal Parainfluen 2 PCR Nasal Parainfluen 3 PCR Nasal Parainfluen 4 PCR Nasal RSV (PCR) Nasal B.pertussis DNA PCR Nasal C.pneumoniae (PCR) Kvng Human Metapneumo PCR Nasal M.pneumoniae (PCR) Nasal SARS-CoV-2 (PCR) 12/18/20 12/18/20 12/18/20 Range/Units 05:10 05:10 05:10 WBC 9.3 (4.8-10.8) x10^3/uL RBC 4.29 (4.20-5.40) 10^6/uL Hgb 9.7 L (12.0-16.0) g/dL Hct 32.5 L (37.0-47.0) % MCV 75.8 L (81.0-99.0) fL MCH 22.6 L (27.0-31.0) pg MCHC 29.8 L (32.0-36.0) g/dL RDW 16.2 H (12.0-15.0) % Plt Count 368 (130-450) 10^3/uL MPV 8.8 (7.9-10.8) fL Neut # (Auto) 3.7 (1.5-6.6) 10^3/uL Lymph # (Auto) 4.6 H (1.5-3.5) 10^3/uL [place] # (Auto) 0.9 (0.0-1.0) 10^3/uL Eos # (Auto) 0.0 (0.0-0.7) 10^3/uL Baso # (Auto) 0.0 (0.0-0.1) 10^3/uL Absolute Nucleated RBC 0.00 x10^3/uL Nucleated RBC % 0.0 /100WBC Sodium 140 (135-145) mmol/L Potassium 3.0 L (3.5-5.0) mmol/L Chloride 107 (101-111) mmol/L Carbon Dioxide 21 (21-32) mmol/L Anion Gap 12.0 (6-13) BUN < 5 L (6-20) mg/dL Creatinine 0.5 (0.4-1.0) mg/dL Estimated GFR (MDRD) 149 (>89) Glucose 91 (70-100) mg/dL POC Whole Bld Glucose (70 - 100) mg/dL Calcium 8.6 (8.5-10.3) mg/dL Magnesium 1.8 (1.7-2.8) mg/dL Iron 20 L (28-170) ug/dL TIBC 476 H (250-450) ug/dL % Saturation 4 L (20-50) % Transferrin 340 (192-382) mg/dL Ferritin 4.7 L (11.0-306.8) ng/mL Urine Color Urine Clarity (CLEAR) Urine pH (5.0-7.5) PH Ur Specific [place] (1.002-1.030) Urine Protein (NEGATIVE) mg/dL Urine Glucose (UA) (NEGATIVE) mg/dL Urine Ketones (NEGATIVE) mg/dL Urine Occult Blood (NEGATIVE) Urine Nitrite (NEGATIVE) Urine Bilirubin (NEGATIVE) Urine Urobilinogen (NORMAL) E.U./dL Ur Leukocyte Esterase (NEGATIVE) Ur Microscopic Review Urine Culture Comments Urine HCG, Qual Nasal Adenovirus (PCR) Nasal B. parapertussis DNA (PCR) Nasal Coronavir 229E PCR Nasal Coronavir HKU1 PCR Nasal Coronavir NL63 PCR Nasal Coronavir OC43 PCR Nasal Enterovir/Rhinovir PCR Nasal Influenza B PCR Nasal Influenza A PCR Nasal Parainfluen 1 PCR Nasal Parainfluen 2 PCR Nasal Parainfluen 3 PCR Nasal Parainfluen 4 PCR Nasal RSV (PCR) Nasal B.pertussis DNA PCR Nasal C.pneumoniae (PCR) Kvng Human Metapneumo PCR Nasal M.pneumoniae (PCR) Nasal SARS-CoV-2 (PCR) 12/18/20 12/18/20 12/18/20 Range/Units 04:58 04:29 00:30 WBC (4.8-10.8) x10^3/uL RBC (4.20-5.40) 10^6/uL Hgb (12.0-16.0) g/dL Hct (37.0-47.0) % MCV (81.0-99.0) fL MCH (27.0-31.0) pg MCHC (32.0-36.0) g/dL RDW (12.0-15.0) % Plt Count (130-450) 10^3/uL MPV (7.9-10.8) fL Neut # (Auto) (1.5-6.6) 10^3/uL Lymph # (Auto) (1.5-3.5) 10^3/uL [place] # (Auto) (0.0-1.0) 10^3/uL Eos # (Auto) (0.0-0.7) 10^3/uL Baso # (Auto) (0.0-0.1) 10^3/uL Absolute Nucleated RBC x10^3/uL Nucleated RBC % /100WBC Sodium (135-145) mmol/L Potassium (3.5-5.0) mmol/L Chloride (101-111) mmol/L Carbon Dioxide (21-32) mmol/L Anion Gap (6-13) BUN (6-20) mg/dL Creatinine (0.4-1.0) mg/dL Estimated GFR (MDRD) (>89) Glucose (70-100) mg/dL POC Whole Bld Glucose 76 53 L* 92 (70 - 100) mg/dL Calcium (8.5-10.3) mg/dL Magnesium (1.7-2.8) mg/dL Iron (28-170) ug/dL TIBC (250-450) ug/dL % Saturation (20-50) % Transferrin (192-382) mg/dL Ferritin (11.0-306.8) ng/mL Urine Color Urine Clarity (CLEAR) Urine pH (5.0-7.5) PH Ur Specific [place] (1.002-1.030) Urine Protein (NEGATIVE) mg/dL Urine Glucose (UA) (NEGATIVE) mg/dL Urine Ketones (NEGATIVE) mg/dL Urine Occult Blood (NEGATIVE) Urine Nitrite (NEGATIVE) Urine Bilirubin (NEGATIVE) Urine Urobilinogen (NORMAL) E.U./dL Ur Leukocyte Esterase (NEGATIVE) Ur Microscopic Review Urine Culture Comments Urine HCG, Qual Nasal Adenovirus (PCR) Nasal B. parapertussis DNA (PCR) Nasal Coronavir 229E PCR Nasal Coronavir HKU1 PCR Nasal Coronavir NL63 PCR Nasal Coronavir OC43 PCR Nasal Enterovir/Rhinovir PCR Nasal Influenza B PCR Nasal Influenza A PCR Nasal Parainfluen 1 PCR Nasal Parainfluen 2 PCR Nasal Parainfluen 3 PCR Nasal Parainfluen 4 PCR Nasal RSV (PCR) Nasal B.pertussis DNA PCR Nasal C.pneumoniae (PCR) Kvng Human Metapneumo PCR Nasal M.pneumoniae (PCR) Nasal SARS-CoV-2 (PCR) 12/18/20 12/17/20 12/17/20 Range/Units 00:14 23:59 20:35 WBC (4.8-10.8) x10^3/uL RBC (4.20-5.40) 10^6/uL Hgb (12.0-16.0) g/dL Hct (37.0-47.0) % MCV (81.0-99.0) fL MCH (27.0-31.0) pg MCHC (32.0-36.0) g/dL RDW (12.0-15.0) % Plt Count (130-450) 10^3/uL MPV (7.9-10.8) fL Neut # (Auto) (1.5-6.6) 10^3/uL Lymph # (Auto) (1.5-3.5) 10^3/uL [place] # (Auto) (0.0-1.0) 10^3/uL Eos # (Auto) (0.0-0.7) 10^3/uL Baso # (Auto) (0.0-0.1) 10^3/uL Absolute Nucleated RBC x10^3/uL Nucleated RBC % /100WBC Sodium (135-145) mmol/L Potassium (3.5-5.0) mmol/L Chloride (101-111) mmol/L Carbon Dioxide (21-32) mmol/L Anion Gap (6-13) BUN (6-20) mg/dL Creatinine (0.4-1.0) mg/dL Estimated GFR (MDRD) (>89) Glucose (70-100) mg/dL POC Whole Bld Glucose 67 L 47 L* 68 L (70 - 100) mg/dL Calcium (8.5-10.3) mg/dL Magnesium (1.7-2.8) mg/dL Iron (28-170) ug/dL TIBC (250-450) ug/dL % Saturation (20-50) % Transferrin (192-382) mg/dL Ferritin (11.0-306.8) ng/mL Urine Color Urine Clarity (CLEAR) Urine pH (5.0-7.5) PH Ur Specific [place] (1.002-1.030) Urine Protein (NEGATIVE) mg/dL Urine Glucose (UA) (NEGATIVE) mg/dL Urine Ketones (NEGATIVE) mg/dL Urine Occult Blood (NEGATIVE) Urine Nitrite (NEGATIVE) Urine Bilirubin (NEGATIVE) Urine Urobilinogen (NORMAL) E.U./dL Ur Leukocyte Esterase (NEGATIVE) Ur Microscopic Review Urine Culture Comments Urine HCG, Qual Nasal Adenovirus (PCR) Nasal B. parapertussis DNA (PCR) Nasal Coronavir 229E PCR Nasal Coronavir HKU1 PCR Nasal Coronavir NL63 PCR Nasal Coronavir OC43 PCR Nasal Enterovir/Rhinovir PCR Nasal Influenza B PCR Nasal Influenza A PCR Nasal Parainfluen 1 PCR Nasal Parainfluen 2 PCR Nasal Parainfluen 3 PCR Nasal Parainfluen 4 PCR Nasal RSV (PCR) Nasal B.pertussis DNA PCR Nasal C.pneumoniae (PCR) Kvng Human Metapneumo PCR Nasal M.pneumoniae (PCR) Nasal SARS-CoV-2 (PCR) 12/17/20 12/17/20 12/17/20 Range/Units 17:00 15:34 14:40 WBC (4.8-10.8) x10^3/uL RBC (4.20-5.40) 10^6/uL Hgb (12.0-16.0) g/dL Hct (37.0-47.0) % MCV (81.0-99.0) fL MCH (27.0-31.0) pg MCHC (32.0-36.0) g/dL RDW (12.0-15.0) % Plt Count (130-450) 10^3/uL MPV (7.9-10.8) fL Neut # (Auto) (1.5-6.6) 10^3/uL Lymph # (Auto) (1.5-3.5) 10^3/uL [place] # (Auto) (0.0-1.0) 10^3/uL Eos # (Auto) (0.0-0.7) 10^3/uL Baso # (Auto) (0.0-0.1) 10^3/uL Absolute Nucleated RBC x10^3/uL Nucleated RBC % /100WBC Sodium (135-145) mmol/L Potassium (3.5-5.0) mmol/L Chloride (101-111) mmol/L Carbon Dioxide (21-32) mmol/L Anion Gap (6-13) BUN (6-20) mg/dL Creatinine (0.4-1.0) mg/dL Estimated GFR (MDRD) (>89) Glucose (70-100) mg/dL POC Whole Bld Glucose 82 (70 - 100) mg/dL Calcium (8.5-10.3) mg/dL Magnesium (1.7-2.8) mg/dL Iron (28-170) ug/dL TIBC (250-450) ug/dL % Saturation (20-50) % Transferrin (192-382) mg/dL Ferritin (11.0-306.8) ng/mL Urine Color YELLOW Urine Clarity CLEAR (CLEAR) Urine pH 6.0 (5.0-7.5) PH Ur Specific [place] >=1.030 H (1.002-1.030) Urine Protein NEGATIVE (NEGATIVE) mg/dL Urine Glucose (UA) NEGATIVE (NEGATIVE) mg/dL Urine Ketones >=80 H (NEGATIVE) mg/dL Urine Occult Blood [place] (NEGATIVE) Urine Nitrite NEGATIVE (NEGATIVE) Urine Bilirubin NEGATIVE (NEGATIVE) Urine Urobilinogen 0.2 (NORMAL) (NORMAL) E.U./dL Ur Leukocyte Esterase NEGATIVE (NEGATIVE) Ur Microscopic Review NOT INDICATED Urine Culture Comments NOT INDICATED Urine HCG, Qual NEGATIVE Nasal Adenovirus (PCR) NOT DETECTED Nasal B. parapertussis DNA (PCR) NOT DETECTED Nasal Coronavir 229E PCR NOT DETECTED Nasal Coronavir HKU1 PCR NOT DETECTED Nasal Coronavir NL63 PCR NOT DETECTED Nasal Coronavir OC43 PCR NOT DETECTED Nasal Enterovir/Rhinovir PCR NOT DETECTED Nasal Influenza B PCR NOT DETECTED Nasal Influenza A PCR NOT DETECTED Nasal Parainfluen 1 PCR NOT DETECTED Nasal Parainfluen 2 PCR NOT DETECTED Nasal Parainfluen 3 PCR NOT DETECTED Nasal Parainfluen 4 PCR NOT DETECTED Nasal RSV (PCR) NOT DETECTED Nasal B.pertussis DNA PCR NOT DETECTED Nasal C.pneumoniae (PCR) NOT DETECTED Kvng Human Metapneumo PCR NOT DETECTED Nasal M.pneumoniae (PCR) NOT DETECTED Nasal SARS-CoV-2 (PCR) NOT DETECTED - Diagnostic Imaging Diagnostic Imaging Results: positive: Final report reviewed ABX Reporting Has patient been on IV antibiotics over the past 48 hours?: Yes Assessment/Plan - Problem List (1) Cyclical vomiting with nausea Impression: Not much improvement today. Continues to have nausea vomiting with limited p.o. intake of clear liquids. Continue glycemic control, antiemetics, IV fluids. (2) Type 1 diabetes mellitus Impression: Blood sugar has been low, likely secondary to decreased p.o. intake. Patient has removed insulin pump We will resume p.o. insulin for coverage however once patient is eating will need to either resume pump or start basal insulin Qualifiers: Diabetes mellitus complication status: without complication Qualified Code(s): E10.9 - Type 1 diabetes mellitus without complications (3) UTI (urinary tract infection) Impression: Urine culture from ER visit prior to admission on 12/15/2020 + for E. coli, pansensitive. Could be the underlying superintendent drivers of the hyperemesis. Continue treatment with Rocephin x3 days Qualifiers: Urinary tract infection type: acute cystitis Hematuria presence: without hematuria Qualified Code(s): N30.00 - Acute cystitis without hematuria
[2020-12-18] MEDS ORDERED: POTASSIUM CHLOR 10 MEQ/100 ML 10 MEQ/100 ML BAG IV SCH (18:00)
[2020-12-18] MEDS: PROCHLORPERAZINE 10 MG/2 ML VIAL IVP PRN (20:02)
[2020-12-19] MEDS: HYDROmorphone 1 MG/ML CARPUJECT IVP PRN ×2 (04:42→07:01)
[2020-12-19] MEDS: ONDANSETRON 4 MG/2 ML VIAL IVP PRN (04:42)
[2020-12-19] MEDS: SODIUM CHLORIDE FLUSH 0.9% 10 ML SYRINGE IVP SCH ×2 (04:51→09:10)
[2020-12-19] MEDS: PROCHLORPERAZINE 10 MG/2 ML VIAL IVP PRN (05:30)
[2020-12-19] MEDS: ACETAMINOPHEN 325 MG TABLET PO PRN ×2 (05:44→15:02)
[2020-12-19] MEDS: oxyCODONE 5 MG TABLET PO PRN ×2 (05:44→15:02)
[2020-12-19 08:20] LABS: BASOPHILS % (AUTO) 0.4 %; EOSINOPHILS # (AUTO) 0.1 10^3/uL (0.0-0.7); HCT - HEMATOCRIT 30.9 % (37.0-47.0); HGB - HEMOGLOBIN 9.5 g/dL (12.0-16.0); LYMPHOCYTES # (AUTO) 2.2 10^3/uL (1.5-3.5); LYMPHOCYTES % (AUTO) 43.2 %; MEAN CORPUSCULAR HEMOGLOBIN 23.1 pg (27.0-31.0); MEAN CORPUSCULAR HGB CONC 30.7 g/dL (32.0-36.0); MEAN CORPUSCULAR VOLUME 75.2 fL (81.0-99.0); MEAN PLATELET VOLUME 8.3 fL (7.9-10.8); MONOCYTES # (AUTO) 0.5 10^3/uL (0.0-1.0); MONOCYTES % (AUTO) 10.4 %; NEUTROPHILS # (AUTO) 2.2 10^3/uL (1.5-6.6); NEUTROPHILS % (AUTO) 43.8 %; PLT - PLATELET COUNT 324 10^3/uL (130-450); RED BLOOD COUNT 4.11 10^6/uL (4.20-5.40); RED CELL DISTRIBUTION WIDTH 16.2 % (12.0-15.0); WHITE BLOOD COUNT 5.1 x10^3/uL (4.8-10.8)
[2020-12-19 08:52] LABS: BUN - BLOOD UREA NITROGEN < 5 mg/dL (6-20); CALCIUM 8.3 mg/dL (8.5-10.3); CARBON DIOXIDE - CO2 25 mmol/L (21-32); CHLORIDE 103 mmol/L (101-111); CREATININE 0.5 mg/dL (0.4-1.0); GFR - MDRD 149 (>89); GLUCOSE 156 mg/dL (70-100); POTASSIUM 3.4 mmol/L (3.5-5.0); SODIUM 137 mmol/L (135-145)
[2020-12-19] MEDS: INSULIN ASPART 300 UNIT/3 ML PEN SUBQ SCH ×2 (09:07→12:03)
[2020-12-19] MEDS: PANTOPRAZOLE 40 MG VIAL IV SCH (09:08)
[2020-12-19] MEDS: NS W/20 MEQ KCL 1,000 ML IV SCH (09:09)
[2020-12-19] MEDS: cefTRIAXone 1 GM in SODIUM CHLORIDE 0.9% MINIBAG 100 ML IV SCH (09:09)
[2020-12-19] MEDS: SODIUM CHLORIDE FLUSH 0.9% 10 ML SYRINGE IVP PRN (09:10)
[2020-12-19] MEDS ORDERED: METOCLOPRAMIDE 10 MG TABLET PO SCH (11:00)
--- NOTE | 2020-12-19 11:50 | Discharge Plan ---
Discharge Plan Problem Reviewed?: Yes Disposition: Home, Self Care Condition: Stable Prescriptions: Famotidine [Pepcid] 20 mg PO DAILY #20 tablet Promethazine Supp [Phenergan Supp] 25 mg [place] Q6H PRN #10 supp PRN Reason: Nausea / Vomiting Activity Restrictions: Activity as Tolerated Health Concerns: You were admitted to the hospital because of nausea and vomiting. You treated with IV fluids and nausea medication with improvement. He has since been tolerating a diet and are now stable for discharge. There was concern for potential urinary tract infection but you completed treatment with antibiotics here. Plan of Treatment: Continue with a liquid diet as tolerated and you may advance this to a soft diet over next few days as you continue to feel better. You likely have gastropare sis so small meals throughout the day are recommended. It is also recommended you do not smoke marijuana as this can contribute to your vomiting. You may continue with the Reglan and Phenergan suppository as needed for nausea. Care Goals: The goal is to control your diabetes and prevent further episodes of your gastroparesis flareup and to stop smoking marijuana as this can cause recurrent nausea/vomiting. Assessment: Patient expressed understanding of the treatment plan. Additional Instructions or Follow Up instructions: Please follow-up with your primary care provider in 1-2 weeks. No Smoking: If you smoke, Please STOP! Call for help.
--- NOTE | 2020-12-19 11:58 | DISCHARGE SUMMARY ---
Discharge Summary Admit Date: 12/17/20 Discharge Date: 12/19/20 Discharging Provider: Tadeo Birmingham Code Status: Attempt Resuscitation Condition at Discharge: Stable Discharge Disposition: 01 Home, Self Care - DIAGNOSES Admission Diagnoses: Cyclical vomiting with nausea Type 1 diabetes mellitus UTI Discharge Diagnoses with Status of Each Condition: Cervical vomiting with nausea - resolved. Gastroparesis - stable Type 1 diabetes mellitus - stable. UTI - resolved. - HPI History of Present Illness: H&P per Dr. Hernandez: Patient is a 25-year-old female with a known history of type 1 diabetes mellitus and gastroparesis who presents to the emergency department with several days of intractable nausea and vomiting and epigastric abdominal pain.She presented to the ED 2 days prior with the same symptoms and was temporarily able to keep water and food down, and was discharged home after several doses of antiemetics and IV fluids. However, today patient woke up with an episode of vomiting and abdominal pain since then has been antibiotic keep things down. In the ED, she received 2 L of normal saline, dose of Zofran, and a dose of Reglan, and continued to be unable to tolerate liquids. Labs showed mild evidence of ketones in the serum with a normal anion gap and without evidence of diabetic ketoacidosis. An abdominal ultrasound was also performed. It demonstrated evidence of sludge within the gallbladder but no evidence of acute cholecystitis and no other acute findings to explain the patient's symptoms. The patient does admit to a history of marijuana use however she recalls that on previous episodes of nausea and vomiting she had been advised by physicians and healthcare providers to avoid marijuana as it can cause intractable nausea and vomiting and she tells me today that she has since then not used it very much at all. Incidentally, patient also had a urinalysis done on the previous ED visit which now shows evidence of UTI and was given 1 dose of ceftriaxone in the ED. Given the patient's intractable nausea and vomiting despite several hours in the ED, hospital admission was requested. - HOSPITAL COURSE Hospital Course: She was admitted for surgical vomiting with nausea which was felt to be related to her gastroparesis and potentially her history of marijuana use. She treated with IV fluids and antiemetics with Zofran and Reglan. There was concern initially for urinary tract infection so she was given ceftriaxone. Her blood glucose remained well controlled throughout her stay here. Within 48 hours she had resolution of her emesis and she was able to tolerate liquid diet. She was discharged home and asked to continue with Reglan as needed. She was given prescription for Phenergan suppositories as needed. She was not discharged with antibiotics given her repeat urinalysis showed no evidence of pyuria or bacteriuria and she completed 3 days of ceftriaxone here in the hospital. She also had no symptoms to suggest infection. - ALLERGIES Allergies/Adverse Reactions: Allergies Allergy/AdvReac Type Severity Reaction Status Date / Time ketorolac [From Toradol] Allergy Rash Verified 12/17/20 10:53 Milk Containing Products Allergy Unknown Verified 12/17/20 10:53 - MEDICATIONS Home Medications: Ambulatory Orders Medication Instructions Recorded Confirmed Insulin Lispro [Humalog] 0 units SUBQ .SLIDING SCALE 08/12/20 12/18/20 Metoclopramide HCl [Metoclopramide 10 mg PO Q6H PRN #20 10/22/20 12/18/20 HCl Odt] Famotidine [Pepcid] 20 mg PO DAILY #20 tablet 12/17/20 Promethazine Supp [Phenergan Supp] 25 mg [place] Q6H PRN #10 supp 12/17/20 Cetirizine [ZyrTEC] 10 mg PO DAILY PRN 12/18/20 12/18/20 Rizatriptan Benzoate [Rizatriptan] 10 mg PO DAILY PRN 12/18/20 12/18/20 - PHYSICAL EXAM AT DISCHARGE General Appearance: positive: No acute distress, Alert Eyes Bilateral: positive: Normal inspection, Conjunctivae nml ENT: positive: ENT inspection nml Neck: positive: Nml inspection Respiratory: positive: No respiratory distress. negative: Wheezes, Rales Cardiovascular: positive: Regular rate & rhythm, No murmur. negative: Tachycardia Abdomen: positive: No distention, Tenderness (Mild tenderness in the lower abdomen). negative: Non-tender, Guarding, Rebound Skin: positive: Warm, Dry Extremities: positive: No pedal edema Neurologic/Psychiatric: positive: Motor nml. negative: Disoriented to person, Disoriented to place Physical Exam Other/Comments: Vital Signs - 24 hr 12/18/20 12/18/20 12/19/20 20:01 23:31 04:53 Temperature 36.8 C 37.1 C 36.8 C Heart Rate [ 89 92 101 H Brachial] Respiratory 18 16 18 Rate Blood Pressure 125/87 H 125/88 H 140/86 H [Right Brachial artery] O2 Saturation 100 98 100 12/19/20 12/19/20 12/19/20 08:34 13:00 15:35 Temperature 36.9 C 36.9 C 37 C Heart Rate [ 83 85 102 H Brachial] Respiratory 10 L 16 18 Rate Blood Pressure 105/61 126/83 H 155/88 H [Right Brachial artery] O2 Saturation 91 L 100 98 Oxygen O2 Source Room air - LABS Result Diagrams: 12/19/20 08:15 12/19/20 08:15 - FOLLOW UP Follow Up: She was asked to follow-up with her primary care physician in 1 to 2 weeks. - TIME SPENT Time Spent in Discharge (Minutes): 31
[2020-12-19 15:37] VITALS: BP 155/88
== END 2020-12-19 15:50 | disposition home or self-care (01) ==
LOC: ED 10:46 → MS2 15:11
PROVIDERS: ADMIT Family Medicine Sports Medicine; ATTEND Internal Medicine
DX: E10.43 Type 1 diabetes mellitus with diabetic autonomic (poly)neuropathy (principal); K31.84 Gastroparesis; N30.00 Acute cystitis without hematuria; Z20.822 Contact with and (suspected) exposure to COVID-19; M54.5 Low back pain; R11.15 Cyclical vomiting syndrome unrelated to migraine; F17.290 Nicotine dependence, other tobacco product, uncomplicated; Z79.4 Long term (current) use of insulin
CPT/HCPCS: 0202U; 36415; 76705; 80048; 80053; 81003; 81025; 82009; 82728; 83540; 83690; 83735; 84466; 85025; 96361; 96365; 96366; 96367; 96375; 96376; 99283; 99284; 99285; A9270; G0378; J1170; J2060; J7040; 80306; 81001; 87086

== ENCOUNTER 2020-12-19 23:33 | Emergency (ER) | payer OTHER ==
[2020-12-20] MEDS ORDERED: SODIUM CHLORIDE 0.9% 1,000 ML IV ONE (01:27)
[2020-12-20] MEDS ORDERED: METOCLOPRAMIDE 10 MG/2 ML VIAL IVP STA (01:27)
--- NOTE | 2020-12-20 01:31 | ED Physician Documentation ---
History of Present Illness - Stated complaint Stated Complaint: VOMIT/ANXIETY - Chief complaint Chief Complaint: Abd Pain - Additonal information Additional information: The patient presents with complaints of nausea and vomiting. She had been admitted here for 2 days due to complications of her type 1 diabetes. She reports that she was having vomiting that was attributed to gastroparesis. She was discharged home earlier but after arriving there had a reoccurrence of her symptoms. She says that she has vomited several times bringing up an emesis that is nonbloody without coffee-ground appearance. She has diffuse abdominal cramping as well. She has had no fevers, chills or sweats. She reports that she used to get symptoms like this that were attributed to marijuana use. However, she denies having used marijuana since last August. She does vape nicotine. Her past history is significant for an appendectomy. Review of Systems Constitutional: reports: Fatigue. denies: Fever, Chills, Myalgias Eyes: denies: Loss of vision Cardiac: denies: Chest pain / pressure, Palpitations, Pedal edema, Calf pain Respiratory: denies: Dyspnea GI: reports: Abdominal Pain, Nausea, Vomiting. denies: Constipation, Diarrhea : denies: Dysuria, Frequency, Hesitancy Skin: denies: Rash Endocrine: denies: Polydypsia, Polyuria, Weight loss PD PAST MEDICAL HISTORY - Past Medical History Past Medical History: Yes Cardiovascular: None Respiratory: None Neuro: None Endocrine/Autoimmune: Type 1 diabetes GI: Other : None HEENT: None Psych: Anxiety Musculoskeletal: None Derm: None - Past Surgical History Past Surgical History: Yes General: Appendectomy - Present Medications Home Medications: Ambulatory Orders Medication Instructions Recorded Confirmed Insulin Lispro [Humalog] 0 units SUBQ .SLIDING SCALE 08/12/20 12/20/20 Metoclopramide HCl [Metoclopramide 10 mg PO Q6H PRN #20 10/22/20 12/20/20 HCl Odt] Famotidine [Pepcid] 20 mg PO DAILY #20 tablet 12/17/20 12/20/20 Promethazine Supp [Phenergan Supp] 25 mg [place] Q6H PRN #10 supp 12/17/20 12/20/20 Cetirizine [ZyrTEC] 10 mg PO DAILY PRN 12/18/20 12/20/20 Rizatriptan Benzoate [Rizatriptan] 10 mg PO DAILY PRN 12/18/20 12/20/20 - Allergies Allergies/Adverse Reactions: Allergies Allergy/AdvReac Type Severity Reaction Status Date / Time ketorolac [From Toradol] Allergy Rash Verified 12/17/20 10:53 Milk Containing Products Allergy Unknown Verified 12/17/20 10:53 - Social History Does the pt smoke?: No Smoking Status: Never smoker Does the pt drink ETOH?: No Does the pt have substance abuse?: Yes - Immunizations Immunizations are current?: Yes - POLST Patient has POLST: No PD ED PE NORMAL - Vitals Vital signs reviewed: Yes - General General: Well developed/nourished - HEENT HEENT: Atraumatic, PERRL, EOMI - Neck Neck: Supple, no meningeal sign - Cardiac Cardiac: No murmur, No gallop, No rub - Abdomen Abdomen: Normal bowel sounds, Soft, Non tender, Non distended, No organomegaly - Back Back: No CVA TTP - Derm Derm: Normal color, Warm and dry, No rash - 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, No motor deficit, No sensory deficit PD ED PE EXPANDED - Cardiac Cardiac: Tachy Results - Vitals Vitals: Vital Signs - 24 hr 12/19/20 12/19/20 12/20/20 23:38 23:41 01:41 Temperature 37 C 37 C Heart Rate 118 H 118 H 90 Respiratory 20 20 19 Rate Blood Pressure 142/84 H 142/84 H 101/56 L O2 Saturation 98 98 100 12/20/20 12/20/20 03:00 03:38 Temperature 36.8 C 36.8 C Heart Rate 89 89 Respiratory 18 18 Rate Blood Pressure 113/63 113/63 O2 Saturation 100 100 Oxygen O2 Source Room air - Labs Labs: Laboratory Tests 12/19/20 12/19/20 12/20/20 23:56 23:56 01:30 WBC 6.7 RBC 4.46 Hgb 10.3 L Hct 33.4 L MCV 74.9 L MCH 23.1 L MCHC 30.8 L RDW 16.2 H Plt Count 406 MPV 9.2 Neut # (Auto) 3.3 Lymph # (Auto) 2.6 Ritchie # (Auto) 0.8 Eos # (Auto) 0.0 Baso # (Auto) 0.0 Absolute Nucleated RBC 0.00 Nucleated RBC % 0.0 Sodium 135 Potassium 3.0 L Chloride 96 L Carbon Dioxide 24 Anion Gap 15.0 H BUN < 5 L Creatinine 0.6 Estimated GFR (MDRD) 121 Glucose 134 H Calcium 8.8 Total Bilirubin 1.1 H AST 19 ALT 13 Alkaline Phosphatase 94 Total Protein 7.3 Albumin 4.4 Globulin 2.9 Albumin/Globulin Ratio 1.5 Lipase 17 L Urine Color YELLOW Urine Clarity CLEAR Urine pH 6.5 Ur Specific [place] 1.015 Urine Protein NEGATIVE Urine Glucose (UA) NEGATIVE Urine Ketones >=80 H Urine Occult Blood TRACE-INTA Urine Nitrite NEGATIVE Urine Bilirubin NEGATIVE Urine Urobilinogen 0.2 (NORMAL) Ur Leukocyte Esterase NEGATIVE Urine RBC 0-5 Urine WBC 0-3 Ur Squamous Epith Cells FEW Squamous Urine Bacteria Rare Urine Culture Comments NOT INDICATED Urine HCG, Qual NEGATIVE Urine Opiates Screen NEGATIVE Ur Oxycodone Screen POSITIVE H Urine Methadone Screen NEGATIVE Ur Propoxyphene Screen NEGATIVE Ur Barbiturates Screen NEGATIVE Ur Tricyclics Screen NEGATIVE Ur Phencyclidine Scrn NEGATIVE Ur Amphetamine Screen NEGATIVE U Methamphetamines Scrn NEGATIVE U Benzodiazepines Scrn NEGATIVE Urine Cocaine Screen NEGATIVE U Cannabinoids Screen POSITIVE H PD MEDICAL DECISION MAKING - ED course Complexity details: reviewed old records, reviewed results, re-evaluated patient, considered differential, d/w patient ED course: Clinically, the patient appears to be suffering from cannabinoid hyperemesis syndrome. Initially, she had reported not having used marijuana since last August. However, on further discussion she reports that she had edible marijuana a couple of days ago. This has been a problem for her in the past. As noted, she was suffering from mild hypokalemia as well. She was treated in the emergency department with IV fluids, Reglan, Zofran and diphenhydramine. Additionally, she received IV and oral potassium. We discussed the pathophysiology of cannabinoid hyperemesis syndrome and I strongly encouraged her to completely avoid the use of any marijuana or relate productsShe is to have close follow-up with her primary care provider and is to continue to use her insulin pump for management of her diabetes.She was encouraged to call or return if her symptoms worsen or if new symptoms were to develop. Departure - Departure Disposition: 01 Home, Self Care Clinical Impression: Cannabinoid hyperemesis syndrome, Intractable nausea and vomiting, Cyclical vomiting with nausea, Vomiting, Gastroparesis diabeticorum Type 1 diabetes mellitus Qualifiers: Diabetes mellitus complication status: with other specified complication Qualified Code(s): E10.69 - Type 1 diabetes mellitus with other specified complication Condition: Stable Instructions: Hypokalemia Dc, Cyclic Vomiting Syndrome Ch, ED Nausea Vomiting Follow-Up: CARL CLARKE MD [Primary Care Provider] - Tomorrow
[2020-12-20 01:37] LABS: BASOPHILS % (AUTO) 0.3 %; HCT - HEMATOCRIT 33.4 % (37.0-47.0); HGB - HEMOGLOBIN 10.3 g/dL (12.0-16.0); LYMPHOCYTES # (AUTO) 2.6 10^3/uL (1.5-3.5); LYMPHOCYTES % (AUTO) 39.1 %; MEAN CORPUSCULAR HEMOGLOBIN 23.1 pg (27.0-31.0); MEAN CORPUSCULAR HGB CONC 30.8 g/dL (32.0-36.0); MEAN CORPUSCULAR VOLUME 74.9 fL (81.0-99.0); MEAN PLATELET VOLUME 9.2 fL (7.9-10.8); MONOCYTES # (AUTO) 0.8 10^3/uL (0.0-1.0); MONOCYTES % (AUTO) 11.5 %; NEUTROPHILS # (AUTO) 3.3 10^3/uL (1.5-6.6); NEUTROPHILS % (AUTO) 48.8 %; PLT - PLATELET COUNT 406 10^3/uL (130-450); RED BLOOD COUNT 4.46 10^6/uL (4.20-5.40); RED CELL DISTRIBUTION WIDTH 16.2 % (12.0-15.0); WHITE BLOOD COUNT 6.7 x10^3/uL (4.8-10.8)
[2020-12-20 01:47] LABS: BILIRUBIN,URINE NEGATIVE (NEGATIVE); CLARITY,URINE CLEAR (CLEAR); GLUCOSE, URINE (UA) NEGATIVE (NEGATIVE); KETONES,URINE (UA) >=80 mg/dL (NEGATIVE); LEUKOCYTE ESTERASE, URINE NEGATIVE (NEGATIVE); MUDS CUTOFF CONCENTRATIONS CUTOFF CONC BELOW:; NITRITE,URINE NEGATIVE (NEGATIVE); OCCULT BLOOD,URINE TRACE-INTA (NEGATIVE); PH,URINE 6.5 PH (5.0-7.5); PROTEIN,URINE NEGATIVE (NEGATIVE); UROBILINOGEN,URINE 0.2 (NORMAL) E.U./dL (NORMAL)
[2020-12-20 01:48] LABS: HCG UR QUAL NEGATIVE
[2020-12-20 01:57] LABS: AMPHETAMINE SCREEN,URINE NEGATIVE (NEGATIVE); BACTERIA,URINE Rare /HPF (None Seen); BENZODIAZEPINES SCREEN, URINE NEGATIVE (NEGATIVE); COCAINE SCREEN URINE NEGATIVE (NEGATIVE); METHAMPHETAMINES SCREEN, URINE NEGATIVE (NEGATIVE); OPIATE SCREEN, URINE NEGATIVE (NEGATIVE); RBC,URINE 0-5 /HPF (0-5); SQUAMOUS EPITHELIAL CELL,UR FEW Squamous (<= Few); THC CANNABINOID SCREEN, URINE POSITIVE (NEGATIVE); TRICYCLIC ANTIDEPRESSANT,URINE NEGATIVE (NEGATIVE); WBC,URINE 0-3 /HPF (0-5)
[2020-12-20 01:58] LABS: BARBITURATE SCREEN,UR NEGATIVE (NEGATIVE); METHADONE SCREEN, URINE NEGATIVE (NEGATIVE); OXYCODONE SCREEN, URINE POSITIVE (NEGATIVE); PROPOXYPHENE SCREEN, URINE NEGATIVE (NEGATIVE)
[2020-12-20 01:59] LABS: ALBUMIN 4.4 g/dL (3.2-5.5); ALBUMIN/GLOBULIN RATIO 1.5 (1.0-2.2); ALKALINE PHOSPHATASE 94 IU/L (42-121); ALT ALANINE AMINOTRANSFERASE 13 IU/L (10-60); AST ASPARTATE AMINOTRANSFERASE 19 IU/L (10-42); BILIRUBIN,TOTAL 1.1 mg/dL (0.2-1.0); BUN - BLOOD UREA NITROGEN < 5 mg/dL (6-20); CALCIUM 8.8 mg/dL (8.5-10.3); CARBON DIOXIDE - CO2 24 mmol/L (21-32); CHLORIDE 96 mmol/L (101-111); CREATININE 0.6 mg/dL (0.4-1.0); GFR - MDRD 121 (>89); GLUCOSE 134 mg/dL (70-100); LIPASE 17 U/L (22-51); SODIUM 135 mmol/L (135-145); TOTAL PROTEIN 7.3 g/dL (6.7-8.2)
[2020-12-20] MEDS ORDERED: POTASSIUM CHLOR 10 MEQ/100 ML 10 MEQ/100 ML BAG IV STA (02:07)
[2020-12-20] MEDS ORDERED: POTASSIUM CHLORIDE 20 MEQ TABLET PO STA (02:07)
[2020-12-20] MEDS ORDERED: diphenhydrAMINE INJ 50 MG/ML VIAL IVP STA (02:21)
[2020-12-20 03:23] VITALS: BP 113/63
== END 2020-12-20 03:45 | disposition home or self-care (01) ==
LOC: ED 23:33
DX: E10.43 Type 1 diabetes mellitus with diabetic autonomic (poly)neuropathy (principal); K31.84 Gastroparesis; R11.15 Cyclical vomiting syndrome unrelated to migraine; F17.290 Nicotine dependence, other tobacco product, uncomplicated; Z79.4 Long term (current) use of insulin
CPT/HCPCS: 36415; 80053; 80306; 81001; 81025; 83690; 85025; 87086; 96365; 96375; 99284

== ENCOUNTER 2021-01-25 11:10 | Emergency (ER) | payer OTHER ==
[2021-01-25] MEDS ORDERED: DROPERIDOL 5 MG/2 ML VIAL IVP STA (11:41)
[2021-01-25 11:44] LABS: BASOPHILS % (AUTO) 0.3 %; HCT - HEMATOCRIT 36.6 % (37.0-47.0); LYMPHOCYTES # (AUTO) 2.1 10^3/uL (1.5-3.5); LYMPHOCYTES % (AUTO) 21.4 %; MEAN CORPUSCULAR HEMOGLOBIN 23.3 pg (27.0-31.0); MEAN CORPUSCULAR HGB CONC 30.1 g/dL (32.0-36.0); MEAN CORPUSCULAR VOLUME 77.5 fL (81.0-99.0); MEAN PLATELET VOLUME 9.1 fL (7.9-10.8); MONOCYTES # (AUTO) 0.5 10^3/uL (0.0-1.0); MONOCYTES % (AUTO) 5.4 %; NEUTROPHILS # (AUTO) 7.1 10^3/uL (1.5-6.6); NEUTROPHILS % (AUTO) 72.6 %; PLT - PLATELET COUNT 346 10^3/uL (130-450); RED BLOOD COUNT 4.72 10^6/uL (4.20-5.40); RED CELL DISTRIBUTION WIDTH 16.1 % (12.0-15.0); WHITE BLOOD COUNT 9.8 x10^3/uL (4.8-10.8)
[2021-01-25] MEDS ORDERED: PANTOPRAZOLE 40 MG VIAL IVP STA (11:55)
[2021-01-25] MEDS ORDERED: HYDROmorphone 1 MG/ML CARPUJECT IVP STA (11:55)
--- NOTE | 2021-01-25 11:58 | ED Physician Documentation ---
History of Present Illness - Stated complaint Stated Complaint: N/V - Chief complaint Chief Complaint: Abd Pain - Additonal information Additional information: 25-year-old type I diabetic presents the emergency department for evaluation of uncontrolled nausea vomiting and now diarrhea. She does have a history of gastroparesis. She also has a history of cannabis induced hyperemesis. Last night she ate some cookies that she tells this provider she did not know were laced with cannabis. As soon as she found out she tried to vomit them up. She was able to produce some emesis however this morning when she woke up she has had uncontrolled nausea and vomiting. Now with diarrhea. All output nonbloody. She does have continuous glucose monitor with an insulin pump. Basal insulin rate is 0.8 units/h. Her sugars have been in the mid to 90s which is a little higher than typical. Prior to last night she was not feeling ill. No recent travel. Denies cough or fevers. No dysuria. She is only partially vaccinated for COVID-19. She developed hives after receiving the first Moderna vaccine in August 2020. Review of Systems Constitutional: reports: Myalgias. denies: Fever, Chills Eyes: reports: Reviewed and negative Ears: reports: Reviewed and negative Nose: reports: Reviewed and negative Throat: reports: Reviewed and negative Cardiac: reports: Reviewed and negative Respiratory: reports: Reviewed and negative GI: reports: Abdominal Pain, Nausea, Vomiting, Diarrhea : denies: Dysuria, Frequency, Hesitancy Skin: denies: Rash, Lesions Musculoskeletal: denies: Neck pain, Back pain Neurologic: reports: Reviewed and negative PD PAST MEDICAL HISTORY - Past Medical History Cardiovascular: None Respiratory: None Neuro: None Endocrine/Autoimmune: Type 1 diabetes GI: Other : None HEENT: None Psych: Anxiety Musculoskeletal: None Derm: None - Past Surgical History Past Surgical History: Yes General: Appendectomy - Present Medications Home Medications: Ambulatory Orders Medication Instructions Recorded Confirmed Insulin Lispro [Humalog] 0 units SUBQ .SLIDING SCALE 08/12/20 12/20/20 Metoclopramide HCl [Metoclopramide 10 mg PO Q6H PRN #20 10/22/20 12/20/20 HCl Odt] Famotidine [Pepcid] 20 mg PO DAILY #20 tablet 12/17/20 12/20/20 Promethazine Supp [Phenergan Supp] 25 mg [place] Q6H PRN #10 supp 12/17/20 12/20/20 Cetirizine [ZyrTEC] 10 mg PO DAILY PRN 12/18/20 12/20/20 Rizatriptan Benzoate [Rizatriptan] 10 mg PO DAILY PRN 12/18/20 12/20/20 Metoclopramide [Reglan] 10 mg PO Q6H PRN #20 tablet 01/25/21 - Allergies Allergies/Adverse Reactions: Allergies Allergy/AdvReac Type Severity Reaction Status Date / Time ketorolac [From Toradol] Allergy Rash Verified 01/25/21 11:22 Milk Containing Products Allergy Unknown Verified 01/25/21 11:22 - Social History Does the pt smoke?: No Smoking Status: Never smoker Does the pt drink ETOH?: No Does the pt have substance abuse?: Yes - Immunizations Immunizations are current?: Yes - POLST Patient has POLST: No PD ED PE EXPANDED - General General: Alert, In Pain - Cardiac Cardiac: Regular Rate, Radial strong equal, Pedal strong equal, Cap refill < 2 sec - Respiratory Respiratory: Clear to ausultation aracelis. No: Distress, Labored - Abdomen Abdomen: Normal Bowel sounds, Tender to palpation (Mild epigastric tenderness without guarding or rebound. No lower abdominal tenderness elicited. Negative Del Rosario's. Negative McBurney's.) - Derm Derm: Normal color - Extremities Extremities: Normal. No: Deformity, Tenderness - Neuro Neuro: Alert and Oriented X 3, CNII-XII intact, Normal gait, Normal finger nose, Normal speech - GCS Eye Opening: Spontaneous Motor: Obeys Commands Verbal: Oriented Total: 15 Results - Vitals Vitals: Vital Signs - 24 hr 01/25/21 01/25/21 01/25/21 11:17 11:40 15:46 Temperature 35.8 C L 36.8 C 36.5 C Heart Rate 94 80 68 Respiratory 22 19 Rate Blood Pressure 136/75 H 136/74 H 134/68 H O2 Saturation 99 100 99 Oxygen O2 Source Room air - Labs Labs: Laboratory Tests 01/25/21 01/25/21 01/25/21 11:40 11:40 11:40 WBC 9.8 RBC 4.72 Hgb 11.0 L Hct 36.6 L MCV 77.5 L MCH 23.3 L MCHC 30.1 L RDW 16.1 H Plt Count 346 MPV 9.1 Neut # (Auto) 7.1 H Lymph # (Auto) 2.1 [place]mers # (Auto) 0.5 Eos # (Auto) 0.0 Baso # (Auto) 0.0 Absolute Nucleated RBC 0.00 Nucleated RBC % 0.0 VBG pH VBG pCO2 VBG pO2 VBG HCO3 VBG Total CO2 VBG O2 Saturation VBG Base Excess Sodium 143 Potassium 3.7 Chloride 106 Carbon Dioxide 23 Anion Gap 14.0 H BUN 18 Creatinine 0.6 Estimated GFR (MDRD) 121 Glucose 297 H Calcium 9.6 Total Bilirubin 0.7 AST 21 ALT 14 Alkaline Phosphatase 95 Total Protein 7.8 Albumin 4.9 Globulin 2.9 Albumin/Globulin Ratio 1.7 Lipase 23 Serum HCG, Qual NEGATIVE Urine Color Urine Clarity Urine pH Ur Specific [place] Urine Protein Urine Glucose (UA) Urine Ketones Urine Occult Blood Urine Nitrite Urine Bilirubin Urine Urobilinogen Ur Leukocyte Esterase Ur Microscopic Review Urine Culture Comments Serum Ketones 01/25/21 01/25/21 01/25/21 11:40 12:02 15:00 WBC RBC Hgb Hct MCV MCH MCHC RDW Plt Count MPV Neut # (Auto) Lymph # (Auto) [place] # (Auto) Eos # (Auto) Baso # (Auto) Absolute Nucleated RBC Nucleated RBC % VBG pH 7.298 L VBG pCO2 45.8 VBG pO2 41.0 VBG HCO3 21.9 L VBG Total CO2 23.3 L VBG O2 Saturation 74.4 VBG Base Excess -4.5 L Sodium Potassium Chloride Carbon Dioxide Anion Gap BUN Creatinine Estimated GFR (MDRD) Glucose Calcium Total Bilirubin AST ALT Alkaline Phosphatase Total Protein Albumin Globulin Albumin/Globulin Ratio Lipase Serum HCG, Qual Urine Color LIGHT YELLOW Urine Clarity CLEAR Urine pH 6.5 Ur Specific [place] 1.020 Urine Protein NEGATIVE Urine Glucose (UA) >=1000 H Urine Ketones >=80 H Urine Occult Blood NEGATIVE Urine Nitrite NEGATIVE Urine Bilirubin NEGATIVE Urine Urobilinogen 0.2 (NORMAL) Ur Leukocyte Esterase NEGATIVE Ur Microscopic Review NOT INDICATED Urine Culture Comments NOT INDICATED Serum Ketones NEGATIVE PD MEDICAL DECISION MAKING - ED course Complexity details: reviewed results, considered differential, d/w patient ED course: 25-year-old female who is a type I diabetic has a history of cyclic vomiting syndrome as well as gastroparesis presents emergency department with uncontrolle d nausea and vomiting. She reports that she ate cookies last night that she did not know were laced with cannabis which has also induced vomiting in the past. She did try and vomit the cookies up yesterday evening but was not successful thus she presents to the ER today. She has no fevers. There is epigastric tenderness elicited without focal tenderness guarding or rebound. Her vital signs were unremarkable. Screening labs did not show any significant worrisome abnormalities specifically no ketones in the urine. No findings of infection in the urine. VBG did show a very mild acidosis however she was given 2 L of crystalloid here in the ER. She did initially receive droperidol but continued to vomit thus she was sequentially administered Zofran and then Reglan. Following this she was tolerating sips of clear liquids. Patient will be discharged home. I have advised a clear liquid then advance to brat diet over the next 24 to 48 hours. [place] return precautions were discussed for failure of symptoms to improve. Departure - Departure Disposition: 01 Home, Self Care Clinical Impression: Nausea and vomiting Qualifiers: Vomiting type: unspecified Vomiting Intractability: non-intractable Qualified Code(s): R11.2 - Nausea with vomiting, unspecified Type 1 diabetes mellitus Qualifiers: Diabetes mellitus complication status: without complication Qualified Code(s): E10.9 - Type 1 diabetes mellitus without complications Condition: Stable Record reviewed to determine appropriate education?: Yes Instructions: ED Nausea Vomiting Follow-Up: CARL CLARKE MD [Primary Care Provider] - Prescriptions: Metoclopramide [Reglan] 10 mg PO Q6H PRN #20 tablet PRN Reason: Nausea / Vomiting Comments: Kaur, your labs today do not show signs of an infection in your urine or the development of diabetic ketoacidosis. Your vomiting may be secondary to consuming the cannabis yesterday. However it may also be your cyclic vomiting syndrome or gastroparesis with your diabetes. Here in the emergency department you were given IV fluids as well as droperidol, Zofran as well as Reglan. At this time you are no longer vomiting and able to tolerate sips of clear liquids. [place] I recommend that you take this every 6 hours and frequently sip small amounts of clear liquids over the next 24 to 48 hours. If your symptoms are not improving despite the Reglan at home or your vomiting worsens then please return to the ER for a second evaluation. Discharge Date/Time: 01/25/21 16:20
[2021-01-25 12:00] LABS: ALBUMIN 4.9 g/dL (3.2-5.5); ALBUMIN/GLOBULIN RATIO 1.7 (1.0-2.2); BILIRUBIN,TOTAL 0.7 mg/dL (0.2-1.0); CALCIUM 9.6 mg/dL (8.5-10.3); CREATININE 0.6 mg/dL (0.4-1.0); POTASSIUM 3.7 mmol/L (3.5-5.0); TOTAL PROTEIN 7.8 g/dL (6.7-8.2)
[2021-01-25 12:06] LABS: VBG BASE EXCESS -4.5 mmol/L (-2 - +2); VBG HCO3 21.9 mmol/L (23-28); VBG OXYGEN SATURATION 74.4 % (60-80); VBG PCO2 45.8 mmHg (41-51); VBG PH 7.298 (7.31-7.41); VBG TOTAL CO2 23.3 mmol/L (24-29)
[2021-01-25] MEDS ORDERED: SODIUM CHLORIDE 0.9% 1,000 ML IV STA ×2 (12:09→12:50)
[2021-01-25 12:30] LABS: HCG,QUALITATIVE BLOOD NEGATIVE
[2021-01-25] MEDS ORDERED: ONDANSETRON 4 MG/2 ML VIAL IVP STA (13:04)
[2021-01-25] MEDS ORDERED: METOCLOPRAMIDE 10 MG/2 ML VIAL IVP STA (14:07)
[2021-01-25 15:43] LABS: BILIRUBIN,URINE NEGATIVE (NEGATIVE); GLUCOSE, URINE (UA) >=1000 mg/dL (NEGATIVE); KETONES,URINE (UA) >=80 mg/dL (NEGATIVE); LEUKOCYTE ESTERASE, URINE NEGATIVE (NEGATIVE); NITRITE,URINE NEGATIVE (NEGATIVE); OCCULT BLOOD,URINE NEGATIVE (NEGATIVE); PH,URINE 6.5 PH (5.0-7.5); PROTEIN,URINE NEGATIVE (NEGATIVE); UROBILINOGEN,URINE 0.2 (NORMAL) E.U./dL (NORMAL)
[2021-01-25 15:46] VITALS: BP 134/68
[2021-01-25 15:55] LABS: CLARITY,URINE CLEAR (CLEAR)
== END 2021-01-25 16:20 | disposition home or self-care (01) ==
LOC: ED 11:10
DX: R11.2 Nausea with vomiting, unspecified (principal); R10.13 Epigastric pain; E10.43 Type 1 diabetes mellitus with diabetic autonomic (poly)neuropathy; K31.84 Gastroparesis; Z79.4 Long term (current) use of insulin
CPT/HCPCS: 36415; 80053; 81003; 82009; 82803; 83690; 84703; 85025; 96374; 96375; 99284; 99285; J1170; J2765; 81001; 87086

== ENCOUNTER 2021-03-02 15:01 | Emergency (ER) | payer OTHER ==
[2021-03-02] MEDS ORDERED: SODIUM CHLORIDE 0.9% 1,000 ML IV STA (15:20)
[2021-03-02] MEDS ORDERED: HALOPERIDOL 5 MG/ML VIAL IVP ONE (15:25)
[2021-03-02] MEDS ORDERED: LORazepam 2 MG/ML VIAL IVP STA (15:25)
--- NOTE | 2021-03-02 15:27 | ED Physician Documentation ---
History of Present Illness - Stated complaint Stated Complaint: HIGH BLOOD SUGAR, BODY PX,VOMITING - Chief complaint Chief Complaint: General - History obtained from History obtained from: Patient - Additonal information Additional information: 25-year-old woman with type 1 diabetes, has a continuous glucose monitor and insulin pump. She presents with epigastric pain and vomiting starting early thi s morning. She did have a low blood sugar reading this morning and drank some juice and subsequently her CGM was reading high. She has epigastric pain and retching. Also has some diarrhea. Review of the chart shows that she has episodes like this not infrequently with a couple of admissions for same. She has a diagnosis of DM1 and gastroparesis but there was also concern for marijuana induced hyperemesis and she continues to use. Review of Systems Ten Systems: 10 systems reviewed and negative Constitutional: reports: Chills, Sweats GI: reports: Abdominal Pain, Nausea, Vomiting, Diarrhea PD PAST MEDICAL HISTORY - Past Medical History Cardiovascular: None Respiratory: None Neuro: None Endocrine/Autoimmune: Type 1 diabetes GI: Other : None HEENT: None Psych: Anxiety Musculoskeletal: None Derm: None - Past Surgical History Past Surgical History: Yes General: Appendectomy - Present Medications Home Medications: Ambulatory Orders Medication Instructions Recorded Confirmed Insulin Lispro [Humalog] 0 units SUBQ .SLIDING SCALE 08/12/20 12/20/20 Metoclopramide HCl [Metoclopramide 10 mg PO Q6H PRN #20 10/22/20 12/20/20 HCl Odt] Famotidine [Pepcid] 20 mg PO DAILY #20 tablet 12/17/20 12/20/20 Promethazine Supp [Phenergan Supp] 25 mg [place] Q6H PRN #10 supp 12/17/20 12/20/20 Cetirizine [ZyrTEC] 10 mg PO DAILY PRN 12/18/20 12/20/20 Rizatriptan Benzoate [Rizatriptan] 10 mg PO DAILY PRN 12/18/20 12/20/20 Metoclopramide [Reglan] 10 mg PO Q6H PRN #20 tablet 01/25/21 Ondansetron Odt [Zofran] 4 mg TL Q6H PRN #10 tablet 03/02/21 Promethazine [Phenergan] 25 mg PO Q6H PRN #10 tab 03/02/21 Sucralfate [Carafate] 1 gm PO ACHS #60 tablet 03/02/21 - Allergies Allergies/Adverse Reactions: Allergies Allergy/AdvReac Type Severity Reaction Status Date / Time ketorolac [From Toradol] Allergy Rash Verified 03/02/21 15:17 Milk Containing Products Allergy Unknown Verified 03/02/21 15:17 - Social History Does the pt smoke?: No Smoking Status: Never smoker Does the pt drink ETOH?: No Does the pt have substance abuse?: Yes - Immunizations Immunizations are current?: Yes - POLST Patient has POLST: No PD ED PE NORMAL - Vitals Vital signs reviewed: Yes - General General: Alert and oriented X 3, Other (She is retching and anxious but without actual vomiting) - HEENT HEENT: PERRL, EOMI - Neck Neck: Supple, no meningeal sign, No bony TTP - Cardiac Cardiac: RRR, No murmur - Respiratory Respiratory: No respiratory distress, Clear bilaterally - Abdomen Abdomen: Normal bowel sounds, Soft, Non tender - Back Back: No CVA TTP, No spinal TTP - Derm Derm: Normal color, Warm and dry - Extremities Extremities: No edema, No calf tenderness / cord - Neuro Neuro: Alert and oriented X 3, Normal speech - Psych Psych: Other (Anxious affect) Results - Vitals Vitals: Vital Signs - 24 hr 03/02/21 03/02/21 03/02/21 15:12 15:48 16:48 Temperature 36.5 C Heart Rate 117 H 85 90 Respiratory 16 18 18 Rate Blood Pressure 140/106 H 90/49 L 108/76 O2 Saturation 98 99 99 03/02/21 17:56 Temperature Heart Rate 109 H Respiratory 18 Rate Blood Pressure 117/77 O2 Saturation 99 Oxygen O2 Source Room air - Labs Labs: Laboratory Tests 03/02/21 03/02/21 03/02/21 15:28 15:28 15:45 WBC 18.5 H RBC 4.73 Hgb 11.3 L Hct 36.7 L MCV 77.6 L MCH 23.9 L MCHC 30.8 L RDW 16.5 H Plt Count 368 MPV 9.8 Neut # (Auto) 16.1 H Lymph # (Auto) 1.1 L [place] # (Auto) 1.1 H Eos # (Auto) 0.1 Baso # (Auto) 0.1 Absolute Nucleated RBC 0.00 Nucleated RBC % 0.0 VBG pH 7.364 VBG pCO2 49.3 VBG pO2 39.5 VBG HCO3 27.5 VBG Total CO2 29.0 VBG O2 Saturation 29.0 L VBG Base Excess 1.5 Sodium 142 Potassium 4.2 Chloride 100 L Carbon Dioxide 26 Anion Gap 16.0 H BUN 23 H Creatinine 0.7 Estimated GFR (MDRD) 101 Glucose 303 H Calcium 9.8 Phosphorus 4.1 Magnesium 2.1 Total Bilirubin 0.8 AST 27 ALT 16 Alkaline Phosphatase 116 Total Protein 7.7 Albumin 4.5 Globulin 3.2 Albumin/Globulin Ratio 1.4 Urine Color Urine Clarity Urine pH Ur Specific [place] Urine Protein Urine Glucose (UA) Urine Ketones Urine Occult Blood Urine Nitrite Urine Bilirubin Urine Urobilinogen Ur Leukocyte Esterase Urine RBC Urine WBC Ur Squamous Epith Cells Urine Bacteria Ur Microscopic Review Urine Culture Comments Urine HCG, Qual Urine Opiates Screen Ur Oxycodone Screen Urine Methadone Screen Ur Propoxyphene Screen Ur Barbiturates Screen Ur Tricyclics Screen Ur Phencyclidine Scrn Ur Amphetamine Screen U Methamphetamines Scrn U Benzodiazepines Scrn Urine Cocaine Screen U Cannabinoids Screen Serum Ketones NEGATIVE 03/02/21 16:50 WBC RBC Hgb Hct MCV MCH MCHC RDW Plt Count MPV Neut # (Auto) Lymph # (Auto) [place] # (Auto) Eos # (Auto) Baso # (Auto) Absolute Nucleated RBC Nucleated RBC % VBG pH VBG pCO2 VBG pO2 VBG HCO3 VBG Total CO2 VBG O2 Saturation VBG Base Excess Sodium Potassium Chloride Carbon Dioxide Anion Gap BUN Creatinine Estimated GFR (MDRD) Glucose Calcium Phosphorus Magnesium Total Bilirubin AST ALT Alkaline Phosphatase Total Protein Albumin Globulin Albumin/Globulin Ratio Urine Color YELLOW Urine Clarity HAZY Urine pH 6.5 Ur Specific [place] 1.020 Urine Protein NEGATIVE Urine Glucose (UA) >=1000 H Urine Ketones >=80 H Urine Occult Blood SMALL H Urine Nitrite NEGATIVE Urine Bilirubin NEGATIVE Urine Urobilinogen 0.2 (NORMAL) Ur Leukocyte Esterase SMALL H Urine RBC 6-10 H Urine WBC >25 H Ur Squamous Epith Cells FEW Squamous Urine Bacteria Many H Ur Microscopic Review INDICATED Urine Culture Comments INDICATED Urine HCG, Qual NEGATIVE Urine Opiates Screen NEGATIVE Ur Oxycodone Screen NEGATIVE Urine Methadone Screen NEGATIVE Ur Propoxyphene Screen NEGATIVE Ur Barbiturates Screen NEGATIVE Ur Tricyclics Screen NEGATIVE Ur Phencyclidine Scrn NEGATIVE Ur Amphetamine Screen NEGATIVE U Methamphetamines Scrn NEGATIVE U Benzodiazepines Scrn NEGATIVE Urine Cocaine Screen NEGATIVE U Cannabinoids Screen POSITIVE H Serum Ketones PD MEDICAL DECISION MAKING - ED course ED course: 25-year-old woman presents with recurrent vomiting of abdominal pain. Gastroparesis versus cannabinoid hyperemesis. After the administration of some IV fluids, Ativan and Haldol on recheck at 4:30 PM she was feeling better but still a little nauseous and wanted to rest. Urinalysis noted, she now has no symptoms referable to a UTI and thus it is likely contaminated related to dehydration. Departure - Departure Disposition: 01 Home, Self Care Clinical Impression: Type 1 diabetes mellitus, Nausea and vomiting Condition: Good Record reviewed to determine appropriate education?: Yes Instructions: ED Nausea Vomiting Prescriptions: Sucralfate [Carafate] 1 gm PO ACHS #60 tablet Promethazine [Phenergan] 25 mg PO Q6H PRN #10 tab PRN Reason: Nausea / Vomiting Ondansetron Odt [Zofran] 4 mg TL Q6H PRN #10 tablet PRN Reason: Nausea / Vomiting Comments: As discussed, your presentation is really more consistent with marijuana related vomiting known as "cannabinoid hyperemesis syndrome," than it is to a diabetic related problem. I recommend complete cessation of THC-containing substances and I bet this will stop happening to you. Call your doctor to arrange a follow-up appointment, make the next available appointment. In the interim, return anytime if worse or if new symptoms develop. Discharge Date/Time: 03/02/21 18:00
[2021-03-02 15:59] LABS: BASOPHILS # (AUTO) 0.1 10^3/uL (0.0-0.1); BASOPHILS % (AUTO) 0.3 %; EOSINOPHILS # (AUTO) 0.1 10^3/uL (0.0-0.7); EOSINOPHILS % (AUTO) 0.3 %; HCT - HEMATOCRIT 36.7 % (37.0-47.0); HGB - HEMOGLOBIN 11.3 g/dL (12.0-16.0); LYMPHOCYTES # (AUTO) 1.1 10^3/uL (1.5-3.5); LYMPHOCYTES % (AUTO) 6.1 %; MEAN CORPUSCULAR HEMOGLOBIN 23.9 pg (27.0-31.0); MEAN CORPUSCULAR HGB CONC 30.8 g/dL (32.0-36.0); MEAN CORPUSCULAR VOLUME 77.6 fL (81.0-99.0); MEAN PLATELET VOLUME 9.8 fL (7.9-10.8); MONOCYTES # (AUTO) 1.1 10^3/uL (0.0-1.0); MONOCYTES % (AUTO) 5.8 %; NEUTROPHILS # (AUTO) 16.1 10^3/uL (1.5-6.6); NEUTROPHILS % (AUTO) 87.1 %; PLT - PLATELET COUNT 368 10^3/uL (130-450); RED BLOOD COUNT 4.73 10^6/uL (4.20-5.40); RED CELL DISTRIBUTION WIDTH 16.5 % (12.0-15.0); WHITE BLOOD COUNT 18.5 x10^3/uL (4.8-10.8)
[2021-03-02 16:01] LABS: VBG HCO3 27.5 mmol/L (23-28); VBG PCO2 49.3 mmHg (41-51); VBG PH 7.364 (7.31-7.41); VBG PO2 39.5 mmHg (25-47)
[2021-03-02 16:02] LABS: VBG BASE EXCESS 1.5 mmol/L (-2 - +2)
[2021-03-02 16:11] LABS: KETONES, SERUM (ACETEST) NEGATIVE (NEGATIVE)
[2021-03-02 16:14] LABS: ALBUMIN 4.5 g/dL (3.2-5.5); ALBUMIN/GLOBULIN RATIO 1.4 (1.0-2.2); ALKALINE PHOSPHATASE 116 IU/L (42-121); ALT ALANINE AMINOTRANSFERASE 16 IU/L (10-60); AST ASPARTATE AMINOTRANSFERASE 27 IU/L (10-42); BILIRUBIN,TOTAL 0.8 mg/dL (0.2-1.0); BUN - BLOOD UREA NITROGEN 23 mg/dL (6-20); CALCIUM 9.8 mg/dL (8.5-10.3); CARBON DIOXIDE - CO2 26 mmol/L (21-32); CHLORIDE 100 mmol/L (101-111); CREATININE 0.7 mg/dL (0.4-1.0); GFR - MDRD 101 (>89); GLUCOSE 303 mg/dL (70-100); MAGNESIUM 2.1 mg/dL (1.7-2.8); PHOSPHORUS 4.1 mg/dL (2.5-4.6); POTASSIUM 4.2 mmol/L (3.5-5.0); SODIUM 142 mmol/L (135-145); TOTAL PROTEIN 7.7 g/dL (6.7-8.2)
[2021-03-02] MEDS ORDERED: INSULIN REGULAR HUMAN 100 UNIT/1 ML 10 ML MDV IVP STA (16:28)
[2021-03-02 16:54] LABS: MUDS CUTOFF CONCENTRATIONS CUTOFF CONC BELOW:
[2021-03-02 16:57] LABS: BILIRUBIN,URINE NEGATIVE (NEGATIVE); GLUCOSE, URINE (UA) >=1000 mg/dL (NEGATIVE); KETONES,URINE (UA) >=80 mg/dL (NEGATIVE); LEUKOCYTE ESTERASE, URINE SMALL (NEGATIVE); NITRITE,URINE NEGATIVE (NEGATIVE); OCCULT BLOOD,URINE SMALL (NEGATIVE); PH,URINE 6.5 PH (5.0-7.5); PROTEIN,URINE NEGATIVE (NEGATIVE); UROBILINOGEN,URINE 0.2 (NORMAL) E.U./dL (NORMAL)
[2021-03-02 17:02] LABS: CLARITY,URINE HAZY (CLEAR); HCG UR QUAL NEGATIVE
[2021-03-02 17:09] LABS: AMPHETAMINE SCREEN,URINE NEGATIVE (NEGATIVE); BARBITURATE SCREEN,UR NEGATIVE (NEGATIVE); BENZODIAZEPINES SCREEN, URINE NEGATIVE (NEGATIVE); COCAINE SCREEN URINE NEGATIVE (NEGATIVE); METHADONE SCREEN, URINE NEGATIVE (NEGATIVE); METHAMPHETAMINES SCREEN, URINE NEGATIVE (NEGATIVE); OPIATE SCREEN, URINE NEGATIVE (NEGATIVE); OXYCODONE SCREEN, URINE NEGATIVE (NEGATIVE); PROPOXYPHENE SCREEN, URINE NEGATIVE (NEGATIVE); THC CANNABINOID SCREEN, URINE POSITIVE (NEGATIVE); TRICYCLIC ANTIDEPRESSANT,URINE NEGATIVE (NEGATIVE)
[2021-03-02 17:12] LABS: BACTERIA,URINE Many /HPF (None Seen); SQUAMOUS EPITHELIAL CELL,UR FEW Squamous (<= Few); WBC,URINE >25 /HPF (0-5)
[2021-03-02] MEDS ORDERED: SUCRALFATE 1 GM/10 ML UDC PO STA (17:41)
[2021-03-02 18:00] VITALS: BP 117/77
== END 2021-03-02 18:00 | disposition home or self-care (01) ==
LOC: ED 15:01
DX: R11.2 Nausea with vomiting, unspecified (principal); E86.0 Dehydration; F12.90 Cannabis use, unspecified, uncomplicated; E10.43 Type 1 diabetes mellitus with diabetic autonomic (poly)neuropathy; K31.84 Gastroparesis; Z79.4 Long term (current) use of insulin
CPT/HCPCS: 36415; 80053; 80306; 81001; 81025; 82009; 82803; 83735; 84100; 85025; 87086; 87181; 96361; 96374; 99283; 99284; A9270; J1815; J2060; 81003

== ENCOUNTER 2021-03-04 12:41 | Observation (INO) | payer OTHER ==
[2021-03-04] MEDS ORDERED: SODIUM CHLORIDE 0.9% 1,000 ML IV STA (12:57)
[2021-03-04 13:12] LABS: BASOPHILS % (AUTO) 0.2 %; HCT - HEMATOCRIT 35.9 % (37.0-47.0); HGB - HEMOGLOBIN 11.2 g/dL (12.0-16.0); LYMPHOCYTES # (AUTO) 2.1 10^3/uL (1.5-3.5); LYMPHOCYTES % (AUTO) 18.8 %; MEAN CORPUSCULAR HEMOGLOBIN 24.2 pg (27.0-31.0); MEAN CORPUSCULAR HGB CONC 31.2 g/dL (32.0-36.0); MEAN CORPUSCULAR VOLUME 77.5 fL (81.0-99.0); MONOCYTES # (AUTO) 0.6 10^3/uL (0.0-1.0); MONOCYTES % (AUTO) 5.8 %; NEUTROPHILS # (AUTO) 8.2 10^3/uL (1.5-6.6); NEUTROPHILS % (AUTO) 74.9 %; PLT - PLATELET COUNT 396 10^3/uL (130-450); RED BLOOD COUNT 4.63 10^6/uL (4.20-5.40); RED CELL DISTRIBUTION WIDTH 15.9 % (12.0-15.0)
[2021-03-04 13:16] LABS: KETONES, SERUM (ACETEST) SMALL (NEGATIVE)
[2021-03-04 13:23] LABS: ALBUMIN 4.8 g/dL (3.2-5.5); ALBUMIN/GLOBULIN RATIO 1.7 (1.0-2.2); ALKALINE PHOSPHATASE 106 IU/L (42-121); ALT ALANINE AMINOTRANSFERASE 17 IU/L (10-60); AST ASPARTATE AMINOTRANSFERASE 19 IU/L (10-42); BILIRUBIN,TOTAL 1.4 mg/dL (0.2-1.0); BUN - BLOOD UREA NITROGEN 18 mg/dL (6-20); CALCIUM 9.3 mg/dL (8.5-10.3); CARBON DIOXIDE - CO2 20 mmol/L (21-32); CHLORIDE 92 mmol/L (101-111); CREATININE 0.8 mg/dL (0.4-1.0); GFR - MDRD 87 (>89); GLUCOSE 431 mg/dL (70-100); LIPASE 23 U/L (22-51); POTASSIUM 3.9 mmol/L (3.5-5.0); SODIUM 132 mmol/L (135-145); TOTAL PROTEIN 7.7 g/dL (6.7-8.2)
--- NOTE | 2021-03-04 13:38 | ED Physician Documentation ---
History of Present Illness - Stated complaint Stated Complaint: HIGH BLOOD SUGAR - Chief complaint Chief Complaint: General - History obtained from History obtained from: Patient - Additonal information Additional information: Patient comes emergency department chief complaint of high blood sugar readings. The patient is an insulin-dependent diabetic who has an insulin pump and she states that she noticed that her blood sugars were reading higher than usual this morning. She states that she tried to give her self some insulin but thinks that her pump site may have gone bad and that the dose did not go in. She switched the site and thinks it is working well, but her blood sugar had already gone up by then. Patient denies feeling ill in any other way recently. She does note that her gastroparesis was acting up a few days ago and she did come in to the emergency department, but states that this is mostly improved. No fevers or chills. No cough or shortness of breath. No congestion. She has a little bit of pain in her epigastric area. No recent changes to her insulin dosing regimen. She states she is actually been eating less than usual lately since her gastroparesis episode. No other complaints at this time. Review of Systems Ten Systems: 10 systems reviewed and negative Constitutional: reports: Reviewed and negative Eyes: reports: Reviewed and negative Ears: reports: Reviewed and negative Nose: reports: Reviewed and negative Throat: reports: Reviewed and negative Cardiac: reports: Reviewed and negative Respiratory: reports: Reviewed and negative GI: reports: Abdominal Pain. denies: Nausea, Vomiting : reports: Reviewed and negative Skin: reports: Reviewed and negative Musculoskeletal: reports: Reviewed and negative Neurologic: reports: Reviewed and negative Psychiatric: reports: Reviewed and negative Endocrine: reports: Reviewed and negative Immunocompromised: reports: Reviewed and negative PD PAST MEDICAL HISTORY - Past Medical History Cardiovascular: None Respiratory: None Neuro: None Endocrine/Autoimmune: Type 1 diabetes GI: Other : None HEENT: None Psych: Anxiety Musculoskeletal: None Derm: None - Past Surgical History Past Surgical History: Yes General: Appendectomy - Present Medications Home Medications: Ambulatory Orders Medication Instructions Recorded Confirmed Insulin Lispro [Humalog] 0 units SUBQ .SLIDING SCALE 08/12/20 12/20/20 Metoclopramide HCl [Metoclopramide 10 mg PO Q6H PRN #20 10/22/20 12/20/20 HCl Odt] Famotidine [Pepcid] 20 mg PO DAILY #20 tablet 12/17/20 12/20/20 Promethazine Supp [Phenergan Supp] 25 mg [place] Q6H PRN #10 supp 12/17/20 12/20/20 Cetirizine [ZyrTEC] 10 mg PO DAILY PRN 12/18/20 12/20/20 Rizatriptan Benzoate [Rizatriptan] 10 mg PO DAILY PRN 12/18/20 12/20/20 Metoclopramide [Reglan] 10 mg PO Q6H PRN #20 tablet 01/25/21 Ondansetron Odt [Zofran] 4 mg TL Q6H PRN #10 tablet 03/02/21 Promethazine [Phenergan] 25 mg PO Q6H PRN #10 tab 03/02/21 Sucralfate [Carafate] 1 gm PO ACHS #60 tablet 03/02/21 - Allergies Allergies/Adverse Reactions: Allergies Allergy/AdvReac Type Severity Reaction Status Date / Time ketorolac [From Toradol] Allergy Rash Verified 03/04/21 12:54 Milk Containing Products Allergy Unknown Verified 03/04/21 12:54 - Social History Does the pt smoke?: No Smoking Status: Never smoker Does the pt drink ETOH?: No Does the pt have substance abuse?: Yes - Immunizations Immunizations are current?: Yes - POLST Patient has POLST: No PD ED PE NORMAL - Vitals Vital signs reviewed: Yes - General General: Alert and oriented X 3, No acute distress, Well developed/nourished - HEENT HEENT: Atraumatic, PERRL, EOMI, Moist mucous membranes - Neck Neck: Supple, no meningeal sign - Cardiac Cardiac: RRR, No murmur - Respiratory Respiratory: No respiratory distress, Clear bilaterally - Abdomen Abdomen: Soft, Non distended, Other (Mild epigastric tenderness, no rebound or guarding.) - Back Back: No CVA TTP, No spinal TTP - Derm Derm: Normal color, Warm and dry, No rash - Extremities Extremities: No deformity, No edema, No calf tenderness / cord - Neuro Neuro: Alert and oriented X 3, clinical laboratory aide 2-12 intact, Normal speech - Psych Psych: Normal mood, Normal affect Results - Vitals Vitals: Vital Signs - 24 hr 03/04/21 12:47 Temperature 36.7 C Heart Rate 135 H Respiratory 20 Rate Blood Pressure 122/87 H O2 Saturation 98 Oxygen O2 Source Room air - Labs Labs: Laboratory Tests 03/04/21 03/04/21 03/04/21 12:50 13:04 13:04 WBC 11.0 H RBC 4.63 Hgb 11.2 L Hct 35.9 L MCV 77.5 L MCH 24.2 L MCHC 31.2 L RDW 15.9 H Plt Count 396 MPV 9.0 Neut # (Auto) 8.2 H Lymph # (Auto) 2.1 [place] # (Auto) 0.6 Eos # (Auto) 0.0 Baso # (Auto) 0.0 Absolute Nucleated RBC 0.00 Nucleated RBC % 0.0 Sodium 132 L Potassium 3.9 Chloride 92 L Carbon Dioxide 20 L Anion Gap 20.0 H BUN 18 Creatinine 0.8 Estimated GFR (MDRD) 87 L Glucose 431 H POC Whole Bld Glucose 422 H Calcium 9.3 Total Bilirubin 1.4 H AST 19 ALT 17 Alkaline Phosphatase 106 Total Protein 7.7 Albumin 4.8 Globulin 2.9 Albumin/Globulin Ratio 1.7 Lipase 23 Serum Ketones SMALL H PD MEDICAL DECISION MAKING - ED course Complexity details: reviewed results, re-evaluated patient, considered differential, d/w patient ED course: Patient was given a liter of 0.9 normal saline and worked up with laboratory studies. She was found to have a glucose of 431 with a small amount of serum ketones and anion gap of 20. The patient seemed to be in early DKA, based on these findings, and additionally, it was questionable whether her insulin pump had been working properly. As such, I felt she should be admitted to the hospital. I spoke with Dr. Gay, who did accept patient for admission. Patient has been started on an insulin drip, following a bolus dose in the emergency department. Departure - Departure Disposition: ED Place in Observation Clinical Impression: Diabetic ketoacidosis Qualifiers: Diabetes mellitus type: type 1 Diabetes mellitus complication detail: without coma Qualified Code(s): E10.10 - Type 1 diabetes mellitus with ketoacidosis without coma Condition: Critical
[2021-03-04] MEDS ORDERED: INSULIN REGULAR HUMAN 300 UNIT/3 ML VIAL IVP ONE (13:50)
[2021-03-04] MEDS ORDERED: INSULIN REGULAR HUMAN 100 UNIT/1 ML 10 ML MDV IVP STA (13:53)
[2021-03-04] MEDS ORDERED: oxyCODONE 5 MG TABLET PO PRN (14:07)
[2021-03-04] MEDS ORDERED: SODIUM CHLORIDE FLUSH 0.9% 10 ML SYRINGE IVP PRN (14:07)
[2021-03-04] MEDS ORDERED: ACETAMINOPHEN 325 MG TABLET PO PRN (14:07)
[2021-03-04] MEDS ORDERED: ONDANSETRON ODT 4 MG TABLET TL PRN (14:07)
--- NOTE | 2021-03-04 14:19 | HISTORY & PHYSICAL EXAMINATION ---
Chief Complaint - Chief Complaint Chief Complaint: CGM reading high glucose History of Present Illness - Admitted From Admitted From:: home - History Obtained From Records Reviewed: [employer] History obtained from: patient and Dr. Mueller Exam Limitations: none - History of Present Illness HPI Comment/Other: 25-year-old female who has known type 1 diabetes mellitus and gastroparesis who presented to the emergency room. She was last admitted in November 2020 for cyclical vomiting with nausea. She was a cannabis user until she has been told by physicians and healthcare providers to avoid it. She states that she was actually off cannabis for several months. She and her primary care provider were working together to decide if cannabis was contributing to her history of cyclical vomiting. She was off of it for several months and still had an episode of cyclical vomiting so they felt that she has a good chance of having cyclical vomiting from gastroparesis. As such she is being referred to a GI specialist who does gastric pacers. She may be getting that in the next few months. Once she got the news that she could possibly be candidate for a pacer, she has gone back to sporadic use of cannabis. During her November 2020 admission she was also identified as having a UTI. She now comes back to our emergency room because her insulin pump readings have been reading "high". In spite of trying to give herself extra insulin, She does not think that the insulin went in. She thinks that the CGM is not working or that the needle was not delivering. She has been having a lot of problems with her CGM and has had several replaced. She then switched her insulin pump needle site after that extra dose and she thinks is working now but her glucose is still too high. She was recently seen in the emergency room March 02 for nausea but that has improved. Urine tox urine was positive for cannabinoids then as well as December 2020. Urine culture from March 02 grew out E. coli. She is not on any antibiotics for that. test was negative on March 02. She has received 1 L of normal saline, and 12 units of IV push insulin for a glucose of 422. Her anion gap is elevated. Carbon dioxide level is 20. Small amount of ketones on urine. BUN and creatinine are acceptable. The emergency room provider is asking the patient be placed in observation status to treat the elevated glucose and incipient DKA. History - Past Medical History Cardiovascular: reports: None Respiratory: reports: None Neuro: reports: Peripheral neuropathy (Present in 2016. But once her glucose got very well controlled, she has not had use of gabapentin since then.) Endocrine/Autoimmune: reports: Type 1 diabetes (Diagnosed age 13. Complications include intermittent peripheral neuropathy, gastroparesis, but she denies proteinuria or retinopathy.) GI: reports: Other (Gastroparesis and cyclical vomiting) INFANT TEACHER: reports: Other (GOP0) : reports: None HEENT: reports: None Psych: reports: Anxiety Musculoskeletal: reports: None Derm: reports: None MRSA Hx?: No - Past Surgical History General: reports: Appendectomy - Family & Social History Family History: Mother: Alive and Well, Father: Alive and Well Family History Comment/Other: Dad is 50 and has no major medical illnesses. Mom is 48 and has no major medical illnesses. Her great grandmother on her father's side had type 2 diabetes. 2 sisters and 1 brother who are healthy without any medical illnesses. No children Living arrangement: At home Living Situation: With spouse/s.o. Social History Notes: She is from [place]. She a man who is in the [employer] and he [place]. She worked in [employer] when she worked in [place]. 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 Rarely drinks alcohol. No history of substance abuse. No history of tobacco abuse. She occasionally uses marijuana. Has no history of cocaine, heroin, LSD, speed - Substance History Use: Uses substance without health or social issues: Cannabis Abuse: Recurrent use of substance despite neg consequences: Cannabis Abuse Issues: Other (Cyclical vomiting syndrome) Dependence: Experiences withdrawal or developed tolerances: NONE - POLST Patient has POLST: No POLST Status: Full Code Meds/Allgy - Home Medications Home Medications: Ambulatory Orders Medication Instructions Recorded Confirmed Insulin Lispro [Humalog] 0 units SUBQ .SLIDING SCALE 08/12/20 12/20/20 Metoclopramide HCl [Metoclopramide 10 mg PO Q6H PRN #20 10/22/20 12/20/20 HCl Odt] Famotidine [Pepcid] 20 mg PO DAILY #20 tablet 12/17/20 12/20/20 Promethazine Supp [Phenergan Supp] 25 mg [place] Q6H PRN #10 supp 12/17/20 12/20/20 Cetirizine [ZyrTEC] 10 mg PO DAILY PRN 12/18/20 12/20/20 Rizatriptan Benzoate [Rizatriptan] 10 mg PO DAILY PRN 12/18/20 12/20/20 Metoclopramide [Reglan] 10 mg PO Q6H PRN #20 tablet 01/25/21 Ondansetron Odt [Zofran] 4 mg TL Q6H PRN #10 tablet 03/02/21 Promethazine [Phenergan] 25 mg PO Q6H PRN #10 tab 03/02/21 Sucralfate [Carafate] 1 gm PO ACHS #60 tablet 03/02/21 - Allergies Allergies/Adverse Reactions: Allergies Allergy/AdvReac Type Severity Reaction Status Date / Time ketorolac [From Toradol] Allergy Rash Verified 03/04/21 12:54 Milk Containing Products Allergy Unknown Verified 03/04/21 12:54 Review of Systems - Constitutional Constitutional: denies: Fatigue, Fever, Chills, Malaise, Poor appetite, Diaphoresis - Eyes Eyes: denies: Pain, Irritation, Amaurosis, Blurred vision - Ears, Nose & Throat Ears, Nose & Throat: denies: Ear pain, Hearing loss, Hearing aids, Nasal obstruction, Nasal congestion, Postnasal drainage, Sore throat - Cardiovascular Cariovascular: denies: Irregular heart rate, Palpitations, Chest pain, Edema, Lightheadedness, Syncope, Exertional dyspnea - Respiratory Respiratory: denies: Cough, Sputum production, Wheezing, Snoring, SOB at rest, SOB with exertion - Gastrointestinal Gastrointestinal: reports: Nausea. denies: Abdominal pain, Abdominal distention, Constipation, Diarrhea, Change in bowel habits, Vomiting - Genitourinary Genitourinary: denies: Dysuria, Frequency, Urgency, Hematuria - Musculoskeletal Musculoskeletal: reports: Muscle aches, Stiffness. denies: Muscle pain, Back pain, Gout, Joint pain - Integumentary Integumentary: denies: Rash, Pruritis, Lesions, Dryness - Neurological Neurological: denies: General weakness, Focal weakness, Headache, Dizziness, Pre-existing deficit, Abnormal gait - Psychiatric Psychiatric: reports: Anxiety. denies: Depression, Suicidal, Delusions, Hallucinations - Endocrine Endocrine: reports: Polyuria. denies: Polydypsia, Polyphagia, Intolerance to cold - Hematologic/Lymphatic Hematologic/Lymphatic: denies: Anemia, Bruising, Petechiae Prior Level of Functionality: Completely independent with activities of daily living. Needs no durable medical equipment or help from spouse. Exam - Vital Signs Reviewed Vital Signs: Yes Vital Signs: Vital Signs x48h Temp Pulse Resp BP Pulse Ox 03/04/21 12:47 36.7 C 135 H 20 122/87 H 98 - Physical Exam General Appearance: positive: No acute distress, Alert, Other (5 foot 3 inch female who weighs 64.8 kg. Well groomed. Well-nourished. Right now wincing because of the blood draws) Eyes Bilateral: positive: PERRL, EOMI ENT: positive: No signs of dehydration Neck: positive: No JVD. negative: Stiff neck Respiratory: positive: No respiratory distress. negative: Wheezes, Rales, Rhonchi Cardiovascular: negative: Regular rate & rhythm, No murmur, Gallop/S4, Friction rub Peripheral Pulses: positive: 1+ Abdomen: positive: Non-tender, No organomegaly, Nml bowel sounds, No distention Skin: positive: Warm, Dry. negative: Diaphoresis, Pallor Extremities: positive: Full ROM. negative: No pedal edema Neurologic/Psychiatric: positive: Oriented x3, CN's nml (2-12), Motor nml, Sensation nml Conclusion/Plan - Problem List (1) Uncontrolled type 1 diabetes mellitus Conclusion/Plan: Place in observation status Start insulin drip Follow protocol to get her below 200 and then transition her back to her insulin pump. We will closely watch her electrolytes and acid-base status. I anticipate she should be able to turn around and be discharged in the next 24 hours. And untreated UTI could have caused her to decompensate. With this admission she does not have cyclical vomiting. Qualifiers: Glycemic state: with hyperglycemia Qualified Code(s): E10.65 - Type 1 diabetes mellitus with hyperglycemia (2) High anion gap metabolic acidosis Conclusion/Plan: Indirect measurement of acidosis with her CO2 level. Plan: Insulin drip with frequent monitoring of electrolytes including potassium, magnesium. We will also check ketones in the morning. (3) UTI (urinary tract infection) Conclusion/Plan: She will be started on Bactrim double strength p.o. twice daily Qualifiers: Urinary tract infection type: acute cystitis Hematuria presence: without hematuria Qualified Code(s): N30.00 - Acute cystitis without hematuria (4) Cannabis use disorder, mild, abuse Conclusion/Plan: Patient is reinstructed on the avoidance of this drug in view of her history of gastroparesis. (5) Hypokalemia Conclusion/Plan: She is receiving 20 mEq in her normal saline. We will supplement cautiously with slurry of potassium p.o. - Lab Results Lab results reviewed: Yes Fish Bones: 03/04/21 13:04 03/04/21 15:03 Core Measures - Anticipated LOS I expect patient to be DC'd or transferred within 96 hours.: Yes - DVT/VTE - Prophylaxis VTE/DVT Device ordered at admit?: Yes
[2021-03-04] MEDS ORDERED: SULFAMETH/TRIMETH DS 800/160 MG TABLET PO STA (14:23)
[2021-03-04 14:30] LABS: VBG HCO3 18.8 mmol/L (23-28); VBG PCO2 28.5 mmHg (41-51); VBG PH 7.438 (7.31-7.41); VBG TOTAL CO2 19.7 mmol/L (24-29)
[2021-03-04 14:31] LABS: VBG BASE EXCESS -4.2 mmol/L (-2 - +2); VBG OXYGEN SATURATION 97.9 % (60-80)
[2021-03-04] MEDS ORDERED: HYDROmorphone 1 MG/ML CARPUJECT IVP STA (14:38)
[2021-03-04] MEDS ORDERED: NS W/20 MEQ KCL 1,000 ML IV SCH (15:00)
[2021-03-04] MEDS ORDERED: INSULIN REGULAR HUMAN 100 UNIT in SODIUM CHLORIDE 0.9% 100ML 99 ML IV SCH (15:00)
[2021-03-04 15:23] LABS: CALCIUM 8.8 mg/dL (8.5-10.3); CREATININE 0.7 mg/dL (0.4-1.0); POTASSIUM 3.3 mmol/L (3.5-5.0)
[2021-03-04 16:21] LABS: MAGNESIUM 1.9 mg/dL (1.7-2.8)
[2021-03-04 16:37] LABS: CALCIUM 9.4 mg/dL (8.5-10.3); CREATININE 0.6 mg/dL (0.4-1.0); POTASSIUM 3.3 mmol/L (3.5-5.0)
[2021-03-04] MEDS ORDERED: DEXTROSE 5% 1,000 ML IV SCH (17:00)
[2021-03-04] MEDS: SODIUM CHLORIDE FLUSH 0.9% 10 ML SYRINGE IVP SCH (17:09)
[2021-03-04] MEDS: SODIUM CHLORIDE 0.9% 1,000 ML IV SCH ×2 (17:31→22:30)
[2021-03-04] MEDS: ONDANSETRON 4 MG/2 ML VIAL IVP PRN (18:07)
[2021-03-04] MEDS ORDERED: HYDROmorphone 0.5 MG/0.5 ML SYRINGE IVP ONE (18:07)
[2021-03-04 18:40] LABS: BILIRUBIN,URINE NEGATIVE (NEGATIVE); GLUCOSE, URINE (UA) 500 mg/dL (NEGATIVE); KETONES,URINE (UA) >=80 mg/dL (NEGATIVE); LEUKOCYTE ESTERASE, URINE TRACE (NEGATIVE); NITRITE,URINE NEGATIVE (NEGATIVE); OCCULT BLOOD,URINE TRACE-INTA (NEGATIVE); PH,URINE 5.5 PH (5.0-7.5); PROTEIN,URINE NEGATIVE (NEGATIVE); UROBILINOGEN,URINE 0.2 (NORMAL) E.U./dL (NORMAL)
[2021-03-04 18:43] LABS: CLARITY,URINE HAZY (CLEAR)
[2021-03-04 18:44] LABS: HCG UR QUAL NEGATIVE
[2021-03-04 18:53] LABS: RBC,URINE 0-5 /HPF (0-5)
[2021-03-04 18:54] LABS: BACTERIA,URINE Moderate /HPF (None Seen); SQUAMOUS EPITHELIAL CELL,UR FEW Squamous (<= Few)
[2021-03-04 18:58] LABS: B. PARAPERTUSSIS- RESP PCR PAN NOT DETECTED; B. PERTUSSIS- RESP PCR PANEL NOT DETECTED; C. PNEUMONIAE- RESP PCR PANEL NOT DETECTED; CORONAVIRUS 229E-RESP PCR NOT DETECTED; CORONAVIRUS HKU1-RESP PCR NOT DETECTED; CORONAVIRUS NL63-RESP PCR NOT DETECTED; CORONAVIRUS OC43-RESP PCR NOT DETECTED; HUMAN METAPNEUMOVIRUS NOT DETECTED; INFLUENZA A- RESP PCR PANEL NOT DETECTED; INFLUENZA B - RESP PCR PANEL NOT DETECTED; M. PNEUMONIAE- RESP PCR PANEL NOT DETECTED; PARAINFLUENZA VIRUS 1 NOT DETECTED; PARAINFLUENZA VIRUS 2 NOT DETECTED; PARAINFLUENZA VIRUS 3 NOT DETECTED; PARAINFLUENZA VIRUS 4 NOT DETECTED; RHINOVIRUS/ENTEROVIRUS NOT DETECTED; RSV- RESP PCR PANEL NOT DETECTED; SARS-CoV-2 -RESP PCR PANEL NOT DETECTED
[2021-03-04] MEDS ORDERED: PROMETHAZINE INJ 25 MG in SODIUM CHLORIDE 0.9% 50 ML IV PRN (19:11)
[2021-03-04] MEDS ORDERED: PROCHLORPERAZINE 10 MG/2 ML VIAL IVP PRN (19:11)
[2021-03-04] MEDS: POTASSIUM CHLOR 10 MEQ/100 ML 10 MEQ/100 ML BAG IV SCH ×4 (19:26→21:38)
[2021-03-04] MEDS: INSULIN REGULAR HUMAN 100 UNIT in SODIUM CHLORIDE 0.9% 100ML 99 ML IV SCH (19:45)
[2021-03-05] MEDS ORDERED: POTASSIUM CHLOR 10 MEQ/100 ML 10 MEQ/100 ML BAG IV ONE ×2 (00:36→05:29)
[2021-03-05] MEDS: SODIUM CHLORIDE FLUSH 0.9% 10 ML SYRINGE IVP SCH ×3 (00:41→15:46)
[2021-03-05] MEDS: ONDANSETRON 4 MG/2 ML VIAL IVP PRN (03:01)
[2021-03-05] MEDS: DEXTROSE 5%-0.9% NACL 1,000 ML IV SCH ×3 (03:01→14:20)
[2021-03-05] MEDS: SODIUM CHLORIDE 0.9% 1,000 ML IV SCH (04:06)
[2021-03-05 05:11] LABS: BASOPHILS % (AUTO) 0.2 %; HCT - HEMATOCRIT 30.4 % (37.0-47.0); HGB - HEMOGLOBIN 9.5 g/dL (12.0-16.0); LYMPHOCYTES # (AUTO) 3.1 10^3/uL (1.5-3.5); LYMPHOCYTES % (AUTO) 25.9 %; MEAN CORPUSCULAR HEMOGLOBIN 24.2 pg (27.0-31.0); MEAN CORPUSCULAR HGB CONC 31.3 g/dL (32.0-36.0); MEAN CORPUSCULAR VOLUME 77.6 fL (81.0-99.0); MEAN PLATELET VOLUME 8.9 fL (7.9-10.8); MONOCYTES # (AUTO) 0.9 10^3/uL (0.0-1.0); NEUTROPHILS # (AUTO) 7.8 10^3/uL (1.5-6.6); NEUTROPHILS % (AUTO) 65.6 %; PLT - PLATELET COUNT 337 10^3/uL (130-450); RED BLOOD COUNT 3.92 10^6/uL (4.20-5.40); RED CELL DISTRIBUTION WIDTH 16.1 % (12.0-15.0); WHITE BLOOD COUNT 11.8 x10^3/uL (4.8-10.8)
[2021-03-05 05:12] LABS: CALCIUM, IONIZED 1.16 mmol/L (1.15-1.33); VBG PH 7.298 (7.31-7.41)
[2021-03-05 05:18] LABS: KETONES, SERUM (ACETEST) SMALL (NEGATIVE)
[2021-03-05 05:26] LABS: BUN - BLOOD UREA NITROGEN 10 mg/dL (6-20); CALCIUM 8.3 mg/dL (8.5-10.3); CARBON DIOXIDE - CO2 19 mmol/L (21-32); CHLORIDE 104 mmol/L (101-111); CREATININE 0.6 mg/dL (0.4-1.0); GFR - MDRD 121 (>89); GLUCOSE 222 mg/dL (70-100); MAGNESIUM 1.7 mg/dL (1.7-2.8); PHOSPHORUS 3.1 mg/dL (2.5-4.6); POTASSIUM 4.1 mmol/L (3.5-5.0); SODIUM 132 mmol/L (135-145)
[2021-03-05] MEDS ORDERED: SULFAMETH/TRIMETH DS 800/160 MG TABLET PO SCH (06:00)
[2021-03-05] MEDS ORDERED: MAGNESIUM SULFATE 2 GRAM 2 GM/50 ML BAG IV ONE (07:15)
--- NOTE | 2021-03-05 10:58 | PHARMACY PROGRESS NOTE ---
- Best Possible Medication History Admit Date and Time: 03/04/21 1407 Processed by: Pharmacy Medication History completed: Yes Patient Interview: Completed Secondary Source(s): Physician records, Pharmacy records, Insurance records As the person ultimately responsible for medication therapy, providers are able to order a medication from an existing home medication list in [facility] via the "Reconcile Routine" prior to Confirmation of that medication by technical sales support specialist. Such practice is discouraged except when the physician, in their clinical judgment, deems that a medical need exists for a medication without regard to previous use.
[2021-03-05] MEDS: INSULIN REGULAR HUMAN 100 UNIT in SODIUM CHLORIDE 0.9% 100ML 99 ML IV SCH (11:28)
[2021-03-05] MEDS: METOCLOPRAMIDE 10 MG TABLET PO SCH ×2 (11:32→15:46)
[2021-03-05 15:46] VITALS: BP 114/80
--- NOTE | 2021-03-05 15:59 | Discharge Plan ---
Discharge Plan Problem Reviewed?: Yes Disposition: Home, Self Care Condition: Good Prescriptions: Sulfamethox/Trimeth 800/160 [Bactrim Ds] 1 tab PO BID #6 tablet Diet: Diabetic Activity Restrictions: Activity as Tolerated Shower Restrictions: No Driving Restrictions: No Health Concerns: You presented to the hospital with your continuous glucose monitor not working, your sugar was rising, and you were worried about going into DKA and you were nauseated. You were able to fix your glucose monitor, and reinsert your insulin pump once we had you on an insulin drip and stabilized your sugars. you did require quite a bit of IV fluids just to hydrate you. You did have problems with nausea and vomiting but that stabilized and you are able to keep food down by the time of discharge. Plan of Treatment: Plan of treatment consisted of IV fluids, short-term IV insulin drip, and control of your nausea and vomiting. Care Goals: Get your sugars under control. To make sure the machinery keeps on working. In the future you are looking to be evaluated for a gastric pacer for your gastropa resis. Assessment: You are very well educated about your insulin in your body. You will follow through with what you need to do to keep stable. 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 No Smoking: If you smoke, Please STOP! Call for help. Follow-up with: CARL CLARKE MD [Primary Care Provider] -
--- NOTE | 2021-03-13 22:40 | DISCHARGE SUMMARY ---
Discharge Summary Admit Date: 03/04/21 Discharge Date: 03/05/21 Discharging Provider: Yanni Gay MD Primary Care Provider: Delonte Trevino MD (pcts) Code Status: Attempt Resuscitation Condition at Discharge: Good Discharge Disposition: 01 Home, Self Care - DIAGNOSES Discharge Diagnoses with Status of Each Condition: 1. Uncontrolled type 1 diabetes mellitus 2. High anion gap metabolic acidosis 3. UTI 4. Cannabis use disorder, mild, abuse 5. Hypokalemia - HPI History of Present Illness: 25-year-old female who has known type 1 diabetes mellitus and gastroparesis who presented to the emergency room. She was last admitted in November 2020 for cyclical vomiting with nausea. She was a cannabis user until she has been told by physicians and healthcare providers to avoid it. She states that she was actually off cannabis for several months. She and her primary care provider were working together to decide if cannabis was contributing to her history of cyclical vomiting. She was off of it for several months and still had an episode of cyclical vomiting so they felt that she has a good chance of having cyclical vomiting from gastroparesis. As such she is being referred to a GI specialist who does gastric pacers. She may be getting that in the next few months. Once she got the news that she could possibly be candidate for a pacer, she has gone back to sporadic use of cannabis. During her November 2020 admission she was also identified as having a UTI. She now comes back to our emergency room because her insulin pump readings have been reading "high". In spite of trying to give herself extra insulin, She does not think that the insulin went in. She thinks that the CGM is not working or that the needle was not delivering. She has been having a lot of problems with her CGM and has had several replaced. She then switched her insulin pump needle site after that extra dose and she thinks is working now but her glucose is still too high. She was recently seen in the emergency room March 02 for nausea but that has improved. Urine tox urine was positive for cannabinoids t as well as December 2020. Urine culture from March 02 grew out E. coli. She is not on any antibiotics for that. test was negative on March 02. She has received 1 L of normal saline, and 12 units of IV push insulin for a glucose of 422. Her anion gap is elevated. Carbon dioxide level is 20. Small amount of ketones on urine. BUN and creatinine are acceptable. The emergency room provider is asking the patient be placed in observation status to treat the elevated glucose and incipient DKA. History - Past Medical History Cardiovascular: reports: None Respiratory: reports: None Neuro: reports: Peripheral neuropathy (Present in 2016. But once her glucose got very well controlled, she has not had use of gabapentin since then.) Endocrine/Autoimmune: reports: Type 1 diabetes (Diagnosed age 13. Complications include intermittent peripheral neuropathy, gastroparesis, but she denies proteinuria or retinopathy.) GI: reports: Other (Gastroparesis and cyclical vomiting) PERMIT COORDINATOR: reports: Other (GOP0) : reports: None HEENT: reports: None Psych: reports: Anxiety Musculoskeletal: reports: None Derm: reports: None - HOSPITAL COURSE Hospital Course: Patient was started on insulin drip but by the time she came to [facility] from the emergency room, glucose was now in the 70s. We then held off on the insulin drip and she rebounded into the 200s or 300s. We verified the pump was disconnected and she was not getting any insulin from her pump. We then resumed our insulin drip and were able to control her and then transition her back to her pump. She reconnected the needle, reconnected the reservoir, we did her CGM and they were all working by the time of discharge. Her anion gap closed. We identified her as having UTI and kept her on Bactrim. We also advised her, again, to not use any cannabis. Once glucose was under control, diet was advanced. Had some nausea which prohibited resumption of food intake promptly. She was eventually able to keep food down and was felt ready to go home. was at the bedside. At discharge temperature was 37. Pulse 79. Blood pressure 114/80. Respirations 16 and 98% on room air. She is 5 feet 3 inches tall, 64.8 kg. She is an alert oriented slender young female who looks stated age. Neck is supple. Lungs are clear. Regular rate and rhythm. Abdomen with mild diffuse achiness and residual tenderness on palpation. But no rebound or guarding. Normal bowel sounds. Ext remities without edema. She is keeping food down, ambulating in the room. She will follow up with her pcts about the use of her machine. She will also follow-up for possible pacer for gastroparesis. - ALLERGIES Allergies/Adverse Reactions: Allergies Allergy/AdvReac Type Severity Reaction Status Date / Time ketorolac [From Toradol] Allergy Rash Verified 03/04/21 12:54 Milk Containing Products Allergy Unknown Verified 03/04/21 12:54 - MEDICATIONS Home Medications: Ambulatory Orders Medication Instructions Recorded Confirmed Insulin Lispro [Humalog] 45 - 56 units SUBQ DAILY 08/12/20 03/05/21 Rizatriptan Benzoate [Rizatriptan] 10 mg PO DAILY PRN 12/18/20 03/05/21 Ondansetron Odt [Zofran Odt] 4 mg TL Q6H PRN #10 tablet 03/02/21 03/05/21 Sucralfate [Carafate] 1 gm PO ACHS #60 tablet 03/02/21 03/05/21 Metoclopramide [Reglan] 10 mg PO BID PRN 03/05/21 03/05/21 Sulfamethox/Trimeth 800/160 1 tab PO BID #6 tablet 03/05/21 [Bactrim Ds] - LABS Result Diagrams: 03/05/21 04:54 03/05/21 08:35
== END 2021-03-05 16:15 | disposition home or self-care (01) ==
LOC: ED 12:41 → ICU 14:07
PROVIDERS: ADMIT Specialist; ATTEND Specialist
DX: E10.65 Type 1 diabetes mellitus with hyperglycemia (principal); E10.42 Type 1 diabetes mellitus with diabetic polyneuropathy; E10.43 Type 1 diabetes mellitus with diabetic autonomic (poly)neuropathy; K31.84 Gastroparesis; N30.00 Acute cystitis without hematuria; E87.6 Hypokalemia; F41.9 Anxiety disorder, unspecified; F12.10 Cannabis abuse, uncomplicated; Z20.822 Contact with and (suspected) exposure to COVID-19; Z79.4 Long term (current) use of insulin; Z79.899 Other long term (current) drug therapy
CPT/HCPCS: 0202U; 36415; 80048; 80053; 81001; 81025; 82009; 82330; 82803; 82947; 83690; 83735; 84100; 84132; 85025; 87077; 87086; 87150; 87181; 96361; 96365; 96375; 96376; 99283; 99285; A9270; G0378; J1170; J1815; 81003

== ENCOUNTER 2021-03-28 13:57 | Emergency (ER) | payer OTHER ==
[2021-03-28 14:13] VITALS: BP 135/83
[2021-03-28 14:41] LABS: BASOPHILS # (AUTO) 0.1 10^3/uL (0.0-0.1); BASOPHILS % (AUTO) 0.3 %; HCT - HEMATOCRIT 38.4 % (37.0-47.0); HGB - HEMOGLOBIN 11.8 g/dL (12.0-16.0); LYMPHOCYTES % (AUTO) 5.5 %; MEAN CORPUSCULAR HEMOGLOBIN 24.1 pg (27.0-31.0); MEAN CORPUSCULAR HGB CONC 30.7 g/dL (32.0-36.0); MEAN CORPUSCULAR VOLUME 78.5 fL (81.0-99.0); MEAN PLATELET VOLUME 8.8 fL (7.9-10.8); MONOCYTES # (AUTO) 0.9 10^3/uL (0.0-1.0); MONOCYTES % (AUTO) 5.3 %; NEUTROPHILS # (AUTO) 15.6 10^3/uL (1.5-6.6); NEUTROPHILS % (AUTO) 88.3 %; PLT - PLATELET COUNT 425 10^3/uL (130-450); RED BLOOD COUNT 4.89 10^6/uL (4.20-5.40); WHITE BLOOD COUNT 17.7 x10^3/uL (4.8-10.8)
[2021-03-28 14:54] LABS: KETONES, SERUM (ACETEST) SMALL (NEGATIVE)
[2021-03-28 14:56] LABS: VBG PCO2 38.3 mmHg (41-51); VBG PH 7.36 (7.31-7.41); VBG PO2 48.7 mmHg (25-47)
[2021-03-28 14:57] LABS: VBG BASE EXCESS -3.8 mmol/L (-2 - +2); VBG HCO3 21.2 mmol/L (23-28); VBG OXYGEN SATURATION 86.2 % (60-80); VBG TOTAL CO2 22.3 mmol/L (24-29)
[2021-03-28 15:04] LABS: ALBUMIN 4.9 g/dL (3.2-5.5); ALBUMIN/GLOBULIN RATIO 1.4 (1.0-2.2); ALKALINE PHOSPHATASE 108 IU/L (42-121); ALT ALANINE AMINOTRANSFERASE 13 IU/L (10-60); AST ASPARTATE AMINOTRANSFERASE 20 IU/L (10-42); BILIRUBIN,TOTAL 0.7 mg/dL (0.2-1.0); BUN - BLOOD UREA NITROGEN 18 mg/dL (6-20); CALCIUM 9.6 mg/dL (8.5-10.3); CARBON DIOXIDE - CO2 21 mmol/L (21-32); CHLORIDE 101 mmol/L (101-111); CREATININE 0.6 mg/dL (0.4-1.0); GFR - MDRD 121 (>89); GLUCOSE 310 mg/dL (70-100); LIPASE 17 U/L (22-51); POTASSIUM 3.9 mmol/L (3.5-5.0); SODIUM 139 mmol/L (135-145); TOTAL PROTEIN 8.5 g/dL (6.7-8.2)
== END 2021-03-28 15:12 | disposition left against medical advice (07) ==
LOC: ED 13:57
DX: Z53.21 Procedure and treatment not carried out due to patient leaving prior to being seen by health care provider (principal)
CPT/HCPCS: 36415; 80053; 82009; 82803; 83690; 85025

== ENCOUNTER 2021-03-29 08:11 | Emergency (ER) | payer OTHER ==
[2021-03-29] MEDS ORDERED: SODIUM CHLORIDE 0.9% 1,000 ML IV STA (08:47)
[2021-03-29] MEDS ORDERED: DROPERIDOL 5 MG/2 ML VIAL IVP STA (08:47)
[2021-03-29 09:03] LABS: BILIRUBIN,URINE NEGATIVE (NEGATIVE); CLARITY,URINE CLOUDY (CLEAR); GLUCOSE, URINE (UA) NEGATIVE (NEGATIVE); KETONES,URINE (UA) 40 mg/dL (NEGATIVE); LEUKOCYTE ESTERASE, URINE SMALL (NEGATIVE); NITRITE,URINE POSITIVE (NEGATIVE); OCCULT BLOOD,URINE TRACE-INTA (NEGATIVE); PROTEIN,URINE TRACE mg/dL (NEGATIVE); UROBILINOGEN,URINE 0.2 (NORMAL) E.U./dL (NORMAL)
[2021-03-29 09:12] LABS: BACTERIA,URINE Moderate /HPF (None Seen); RBC,URINE 0-5 /HPF (0-5); SQUAMOUS EPITHELIAL CELL,UR FEW Squamous (<= Few); WBC,URINE >25 /HPF (0-5)
--- NOTE | 2021-03-29 09:22 | ED Physician Documentation ---
History of Present Illness - Stated complaint Stated Complaint: N/V LOW BACK PX/FEMALE - Chief complaint Chief Complaint: Abd Pain - History obtained from History obtained from: Patient - Additonal information Additional information: The patient comes emergency department chief complaint of bilateral flank pain that started early this morning and nausea and vomiting that started yesterday. The patient is a brittle insulindependent diabetic, and frequently has bouts of nausea and vomiting and upper abdominal pain. She was here yesterday and had checked into be seen at the emergency department, but left before being seen and went over to [facility], where she was treated symptomatically and discharged. The patient thought she might be in DKA, because her sugar was 300 yesterday, but she was not diagnosed with this. The patient states that she actually felt better when she left, but and came home and slept well last night. However, she awoke from sleep with the sharp pain in her flanks and started vomiting. The patient denies any history of kidney stones. She states other than the diabetes, she is pretty healthy. She does smoke marijuana and has been counseled regarding this and her repeated episodes of vomiting. The patient denies any recent illness of any other kind. No fevers or chills. No cough or shortness of breath. No dysuria. Patient denies any other complaints at this time. She believes the pain is causing her to vomit. Review of Systems Ten Systems: 10 systems reviewed and negative Constitutional: reports: Reviewed and negative Eyes: reports: Reviewed and negative Ears: reports: Reviewed and negative Nose: reports: Reviewed and negative Throat: reports: Reviewed and negative Cardiac: reports: Reviewed and negative Respiratory: reports: Reviewed and negative GI: reports: Nausea, Vomiting : reports: Reviewed and negative Skin: reports: Reviewed and negative Musculoskeletal: reports: Back pain (Bilateral flanks) Neurologic: reports: Reviewed and negative Psychiatric: reports: Reviewed and negative Endocrine: reports: Reviewed and negative Immunocompromised: reports: Reviewed and negative PD PAST MEDICAL HISTORY - Past Medical History Cardiovascular: None Respiratory: None Neuro: Peripheral neuropathy Endocrine/Autoimmune: Type 1 diabetes GI: Other DRIVER GUIDE: Other (GOP0) : None HEENT: None Psych: Anxiety Musculoskeletal: None Derm: None - Past Surgical History Past Surgical History: Yes General: Appendectomy - Present Medications Home Medications: Ambulatory Orders Medication Instructions Recorded Confirmed Insulin Lispro [Humalog] 45 - 56 units SUBQ DAILY 08/12/20 03/05/21 Rizatriptan Benzoate [Rizatriptan] 10 mg PO DAILY PRN 12/18/20 03/05/21 Ondansetron Odt [Zofran Odt] 4 mg TL Q6H PRN #10 tablet 03/02/21 03/05/21 Sucralfate [Carafate] 1 gm PO ACHS #60 tablet 03/02/21 03/05/21 Metoclopramide [Reglan] 10 mg PO BID PRN 03/05/21 03/05/21 Sulfamethox/Trimeth 800/160 1 tab PO BID #6 tablet 03/05/21 [Bactrim Ds] Cefdinir 300 mg PO BID #20 cap 03/29/21 Ondansetron Odt [Zofran] 4 mg TL Q6H PRN #10 tablet 03/29/21 Promethazine Supp [Phenergan Supp] 25 mg NH Q6HR PRN #14 supp 03/29/21 - Allergies Allergies/Adverse Reactions: Allergies Allergy/AdvReac Type Severity Reaction Status Date / Time ketorolac [From Toradol] Allergy Rash Verified 03/29/21 08:27 Milk Containing Products Allergy Unknown Verified 03/29/21 08:27 - Social History Does the pt smoke?: No Smoking Status: Never smoker Does the pt drink ETOH?: No Does the pt have substance abuse?: Yes - Immunizations Immunizations are current?: Yes - POLST Patient has POLST: No POLST Status: Full Code PD ED PE NORMAL - Vitals Vital signs reviewed: Yes - General General: Alert and oriented X 3, Well developed/nourished, Other (Pale, diaphoretic, shaking, actively vomiting.) - HEENT HEENT: Atraumatic, PERRL, EOMI, Moist mucous membranes - Neck Neck: Supple, no meningeal sign - Cardiac Cardiac: RRR, No murmur, Strong equal pulses - Respiratory Respiratory: No respiratory distress, Clear bilaterally - Abdomen Abdomen: Soft, Non tender, Non distended - Derm Derm: No rash, Other (Mild pallor, mild diaphoresis.) - Extremities Extremities: No deformity, No edema, No calf tenderness / cord - Neuro Neuro: Alert and oriented X 3, recreation therapist 2-12 intact, No motor deficit, No sensory deficit, Normal speech - Psych Psych: Normal mood, Normal affect Results - Vitals Vitals: Oxygen O2 Source Room air - Labs Labs: Microbiology 03/29/21 08:53 Urine Culture - Final Urine,Clean Catch Escherichia Coli Laboratory Tests 03/29/21 03/29/21 03/29/21 08:53 09:15 09:15 WBC 13.8 H RBC 4.26 Hgb 10.7 L Hct 33.2 L MCV 77.9 L MCH 25.1 L MCHC 32.2 RDW 16.9 H Plt Count 411 MPV 9.0 Neut # (Auto) 10.9 H Lymph # (Auto) 2.0 [place] # (Auto) 0.8 Eos # (Auto) 0.0 Baso # (Auto) 0.0 Absolute Nucleated RBC 0.00 Nucleated RBC % 0.0 Sodium 137 Potassium 3.6 Chloride 98 L Carbon Dioxide 25 Anion Gap 14.0 H BUN 17 Creatinine 0.6 Estimated GFR (MDRD) 121 Glucose 172 H Calcium 9.3 Total Bilirubin 1.2 H AST 21 ALT 13 Alkaline Phosphatase 97 Total Protein 7.9 Albumin 4.3 Globulin 3.6 Albumin/Globulin Ratio 1.2 Lipase 16 L Urine Color YELLOW Urine Clarity CLOUDY Urine pH 6.0 Ur Specific [place] 1.025 Urine Protein TRACE Urine Glucose (UA) NEGATIVE Urine Ketones 40 H Urine Occult Blood TRACE-INTA Urine Nitrite POSITIVE H Urine Bilirubin NEGATIVE Urine Urobilinogen 0.2 (NORMAL) Ur Leukocyte Esterase SMALL H Urine RBC 0-5 Urine WBC >25 H Ur Squamous Epith Cells FEW Squamous Urine Bacteria Moderate H Ur Microscopic Review INDICATED Urine Culture Comments INDICATED PD MEDICAL DECISION MAKING - ED course Complexity details: reviewed results, re-evaluated patient, considered differential, d/w patient ED course: The patient was treated symptomatically with IV fluids and droperidol. She was worked up with labs. The patient's records from [facility] were reviewed. Her labs showed a degree of hyperglycemia, but not at a level concerning for DKA. The patient was found to be feeling much better and resting comfortably in bed. We have discussed the need to see her doctor in follow-up regarding what is most likely gastroparesis and some cannabis hyperemesis. We have discussed the usual indications for return. Departure - Departure Disposition: 01 Home, Self Care Clinical Impression: Cystitis Vomiting Qualifiers: Vomiting type: bilious vomiting Nausea presence: with nausea Qualified Code(s): R11.14 - Bilious vomiting Abdominal pain Qualifiers: Abdominal location: upper abdomen, unspecified Qualified Code(s): R10.10 - Upper abdominal pain, unspecified Condition: Stable Instructions: ED Abdominal Pain Female Non-Specific Abdominal Pain, ED Nausea Vomiting Prescriptions: Promethazine Supp [Phenergan Supp] 25 mg NH Q6HR PRN #14 supp PRN Reason: Nausea / Vomiting Cefdinir 300 mg PO BID #20 cap Ondansetron Odt [Zofran] 4 mg TL Q6H PRN #10 tablet PRN Reason: Nausea / Vomiting Comments: Your labs look good today. There is no evidence of a serious condition causing your symptoms, and you do not have DKA today. It is not clear why you continue to have these repeated episodes of upper abdominal pain and vomiting, though it is possible you are developing diabetic gastroparesis. You should certainly continue to stay away from marijuana, as a similar abdominal pain/vomiting syndrome can develop from chronic use of this. You should take your nausea medicine at home. You have been hydrated with IV fluids today, and should not take anything by mouth for the next 4 to 6 hours to give your stomach a rest. Please do not eat any solid food today and stick with just clear liquids. You may take the nausea medicine prescribed to help keep your nausea down. In fact, it is advisable that you take something for nausea in the next several hours, prior to redeveloping nausea, in order to keep on top of your symptoms. You should make an appoint with your primary doctor soon as possible to address these repeated episodes of abdominal pain and vomiting. Discharge Date/Time: 03/29/21 12:55
[2021-03-29 09:27] LABS: BASOPHILS % (AUTO) 0.2 %; EOSINOPHILS % (AUTO) 0.2 %; HCT - HEMATOCRIT 33.2 % (37.0-47.0); HGB - HEMOGLOBIN 10.7 g/dL (12.0-16.0); LYMPHOCYTES % (AUTO) 14.5 %; MEAN CORPUSCULAR HEMOGLOBIN 25.1 pg (27.0-31.0); MEAN CORPUSCULAR HGB CONC 32.2 g/dL (32.0-36.0); MEAN CORPUSCULAR VOLUME 77.9 fL (81.0-99.0); MONOCYTES # (AUTO) 0.8 10^3/uL (0.0-1.0); MONOCYTES % (AUTO) 5.9 %; NEUTROPHILS # (AUTO) 10.9 10^3/uL (1.5-6.6); NEUTROPHILS % (AUTO) 78.9 %; PLT - PLATELET COUNT 411 10^3/uL (130-450); RED BLOOD COUNT 4.26 10^6/uL (4.20-5.40); RED CELL DISTRIBUTION WIDTH 16.9 % (12.0-15.0); WHITE BLOOD COUNT 13.8 x10^3/uL (4.8-10.8)
[2021-03-29 09:43] LABS: ALBUMIN 4.3 g/dL (3.2-5.5); ALBUMIN/GLOBULIN RATIO 1.2 (1.0-2.2); BILIRUBIN,TOTAL 1.2 mg/dL (0.2-1.0); CALCIUM 9.3 mg/dL (8.5-10.3); CREATININE 0.6 mg/dL (0.4-1.0); POTASSIUM 3.6 mmol/L (3.5-5.0); TOTAL PROTEIN 7.9 g/dL (6.7-8.2)
[2021-03-29] MEDS ORDERED: cefTRIAXone 1 GM in SODIUM CHLORIDE 0.9% MINIBAG 100 ML IV STA (11:40)
[2021-03-29] MEDS ORDERED: HYDROmorphone 1 MG/ML CARPUJECT IVP STA (12:36)
[2021-03-29 12:55] VITALS: BP 124/78
== END 2021-03-29 12:55 | disposition home or self-care (01) ==
LOC: ED 08:11
DX: N30.90 Cystitis, unspecified without hematuria (principal); R11.14 Bilious vomiting; R10.10 Upper abdominal pain, unspecified; E10.65 Type 1 diabetes mellitus with hyperglycemia; E10.42 Type 1 diabetes mellitus with diabetic polyneuropathy; Z79.4 Long term (current) use of insulin
CPT/HCPCS: 36415; 80053; 81001; 83690; 85025; 87086; 87181; 96374; 96375; 99284; J1170; 81003

== ENCOUNTER 2021-11-02 03:16 | Emergency (ER) | payer OTHER ==
--- NOTE | 2021-11-02 03:36 | ED Physician Documentation ---
PD HPI ABD PAIN - Stated complaint Stated Complaint: ABD PAIN N/V; BACK PAIN - Chief complaint Chief Complaint: General - Additional information Additional information: Patient is 26-year-old female presenting to the emergency department with abdominal pain, nausea, vomiting and back pain. Symptoms ongoing x1 day. Reports both chronic nausea and chronic decreased appetite at home. Reports daily marijuana use to help with the symptoms. Past medical significant for type 1 diabetes. Reports history of gastroparesis that was diagnosed "in [place]". Chart review demonstrates multiple emergency room visits for similar presentations in the Past. She reports that she has an episode similar to this "about every 3 months". Review of Systems Unable to obtain: Unresponsive Ten Systems: 10 systems reviewed and negative Constitutional: denies: Fever Eyes: denies: Loss of vision Ears: denies: Loss of hearing Nose: denies: Rhinorrhea / runny nose Cardiac: denies: Chest pain / pressure GI: reports: Abdominal Pain, Nausea, Vomiting, Diarrhea PD PAST MEDICAL HISTORY - Allergies Allergies/Adverse Reactions: Allergies Allergy/AdvReac Type Severity Reaction Status Date / Time ketorolac [From Toradol] Allergy Itching Verified 11/02/21 03:35 Milk Containing Products Allergy Itching Verified 11/02/21 03:35 PD ED PE NORMAL - General General: Alert and oriented X 3, Other (Patient acutely distressed, shaking in bed.). No: No acute distress - HEENT HEENT: Atraumatic - Neck Neck: Supple, no meningeal sign - Cardiac Cardiac: RRR, No gallop - Respiratory Respiratory: No respiratory distress - Abdomen Abdomen: Normal bowel sounds, Non tender - Female Female : Deferred - Rectal Rectal: Deferred Results - Vitals Vitals: Vital Signs - 24 hr 11/02/21 03:21 Temperature 37 C Heart Rate 135 H Respiratory 18 Rate Blood Pressure 105/64 O2 Saturation 98 Oxygen O2 Source Room air - Labs Labs: Laboratory Tests 11/02/21 11/02/21 11/02/21 04:11 04:11 04:11 WBC 8.0 RBC 4.96 Hgb 12.8 Hct 40.6 MCV 81.9 MCH 25.8 L MCHC 31.5 L RDW 15.4 H Plt Count 357 MPV 9.4 Neut # (Auto) 4.7 Lymph # (Auto) 2.7 [place] # (Auto) 0.6 Eos # (Auto) 0.0 Baso # (Auto) 0.0 Absolute Nucleated RBC 0.00 Nucleated RBC % 0.0 PT 13.2 H INR 1.2 VBG pH VBG pCO2 VBG pO2 VBG HCO3 VBG Total CO2 VBG O2 Saturation VBG Base Excess Sodium 141 Potassium 3.2 L Chloride 98 L Carbon Dioxide 25 Anion Gap 18.0 H BUN 23 H Creatinine 0.9 Estimated GFR (MDRD) 75 L Glucose 216 H Lactic Acid Calcium 10.1 Magnesium 1.9 Total Bilirubin 0.9 AST 24 ALT 17 Alkaline Phosphatase 105 Total Protein 8.7 H Albumin 5.1 Globulin 3.6 Albumin/Globulin Ratio 1.4 Lipase 23 TSH Ethyl Alcohol < 5.0 Serum Ketones NEGATIVE 11/02/21 11/02/21 11/02/21 04:11 04:11 05:11 WBC RBC Hgb Hct MCV MCH MCHC RDW Plt Count MPV Neut # (Auto) Lymph # (Auto) [place] # (Auto) Eos # (Auto) Baso # (Auto) Absolute Nucleated RBC Nucleated RBC % PT INR VBG pH 7.299 L VBG pCO2 45.6 VBG pO2 31.2 VBG HCO3 21.9 L VBG Total CO2 23.3 L VBG O2 Saturation 55.5 L VBG Base Excess -4.6 L Sodium Potassium Chloride Carbon Dioxide Anion Gap BUN Creatinine Estimated GFR (MDRD) Glucose Lactic Acid 3.4 H* Calcium Magnesium Total Bilirubin AST ALT Alkaline Phosphatase Total Protein Albumin Globulin Albumin/Globulin Ratio Lipase TSH 0.93 Ethyl Alcohol Serum Ketones PD MEDICAL DECISION MAKING - ED course Complexity details: reviewed results, re-evaluated patient, d/w patient ED course: Patient is 26-year-old female presenting to the emergency department with abdominal pain, nausea, vomiting and back pain. Chart review demonstrates multiple similar presentations to this in the past. Patient endorses for history of gastroparesis. Reports history type 1 diabetes. Afebrile, hemodynamically stable but acutely distressed on arrival to the emergency department. Active vomiting on arrival to the emergency department. Abdominal exam generally benign without focal tenderness or indications of peritoneal irritation. Medications ordered for symptomatic management including droperidol and IV hydration. Comprehensive labs obtained demonstrated a metabolic acidosis with negative ketones and relatively normal sugar. There is nothing her presentation to suggest diabetic ketoacidosis at this time. She notably had an elevated lactic acid which would account for her elevated anion gap and acidotic state. Additionally she was noted to have some mild hypokalemia. I ordered both magnesium and potassium repletion in the emergency department. She did endorse for persistent back pain and I ordered a dose of over meth as well as a muscle relaxer however she refused the muscle relaxer stating that she is too nauseous to take anything by mouth. She reported persistent vomiting and I have ordered a second dose of droperidol at this time. Additionally I have ordered for repeat lactic acid. At this time I will be signing her out to the oncoming physician, please see their documentation for further detail.
[2021-11-02] MEDS ORDERED: SODIUM CHLORIDE 0.9% 2,000 ML IV STA (03:48)
[2021-11-02] MEDS ORDERED: DROPERIDOL 5 MG/2 ML VIAL IVP STA ×2 (03:48→06:38)
[2021-11-02 04:20] LABS: VBG BASE EXCESS -4.6 mmol/L (-2 - +2); VBG HCO3 21.9 mmol/L (23-28); VBG OXYGEN SATURATION 55.5 % (60-80); VBG PCO2 45.6 mmHg (41-51); VBG PH 7.299 (7.31-7.41); VBG PO2 31.2 mmHg (25-47); VBG TOTAL CO2 23.3 mmol/L (24-29)
[2021-11-02 04:27] LABS: INR 1.2 (0.8-1.2); PT - PROTHROMBIN TIME 13.2 secs (9.9-12.6)
[2021-11-02 04:34] LABS: ALBUMIN 5.1 g/dL (3.2-5.5); ALBUMIN/GLOBULIN RATIO 1.4 (1.0-2.2); ALKALINE PHOSPHATASE 105 IU/L (42-121); ALT ALANINE AMINOTRANSFERASE 17 IU/L (10-60); AST ASPARTATE AMINOTRANSFERASE 24 IU/L (10-42); BASOPHILS % (AUTO) 0.5 %; BILIRUBIN,TOTAL 0.9 mg/dL (0.2-1.0); BUN - BLOOD UREA NITROGEN 23 mg/dL (6-20); CALCIUM 10.1 mg/dL (8.5-10.3); CARBON DIOXIDE - CO2 25 mmol/L (21-32); CHLORIDE 98 mmol/L (101-111); CREATININE 0.9 mg/dL (0.4-1.0); ETOH - ETHANOL < 5.0 mg/dL; GFR - MDRD 75 (>89); GLUCOSE 216 mg/dL (70-100); HCT - HEMATOCRIT 40.6 % (37.0-47.0); HGB - HEMOGLOBIN 12.8 g/dL (12.0-16.0); LIPASE 23 U/L (22-51); LYMPHOCYTES # (AUTO) 2.7 10^3/uL (1.5-3.5); LYMPHOCYTES % (AUTO) 33.5 %; MAGNESIUM 1.9 mg/dL (1.7-2.8); MEAN CORPUSCULAR HEMOGLOBIN 25.8 pg (27.0-31.0); MEAN CORPUSCULAR HGB CONC 31.5 g/dL (32.0-36.0); MEAN CORPUSCULAR VOLUME 81.9 fL (81.0-99.0); MEAN PLATELET VOLUME 9.4 fL (7.9-10.8); MONOCYTES # (AUTO) 0.6 10^3/uL (0.0-1.0); MONOCYTES % (AUTO) 7.2 %; NEUTROPHILS # (AUTO) 4.7 10^3/uL (1.5-6.6); NEUTROPHILS % (AUTO) 58.6 %; PLT - PLATELET COUNT 357 10^3/uL (130-450); POTASSIUM 3.2 mmol/L (3.5-5.0); RED BLOOD COUNT 4.96 10^6/uL (4.20-5.40); RED CELL DISTRIBUTION WIDTH 15.4 % (12.0-15.0); SODIUM 141 mmol/L (135-145); TOTAL PROTEIN 8.7 g/dL (6.7-8.2)
[2021-11-02 04:44] LABS: KETONES, SERUM (ACETEST) NEGATIVE (NEGATIVE)
[2021-11-02] MEDS ORDERED: MAGNESIUM SULFATE 2 GRAM 2 GM/50 ML BAG IV ONE (04:57)
[2021-11-02] MEDS ORDERED: POTASSIUM CHLOR 10 MEQ/100 ML 10 MEQ/100 ML BAG IV STA (04:57)
[2021-11-02] MEDS ORDERED: ACETAMINOPHEN 1,000 MG/100 ML 1,000 MG/100 ML BAG IV ONE (05:09)
[2021-11-02] MEDS ORDERED: methocarbamoL 500 MG TABLET PO STA (06:15)
[2021-11-02] MEDS ORDERED: LORazepam 2 MG/ML VIAL IVP STA (07:30)
[2021-11-02] MEDS ORDERED: MORPHINE 2 MG/ML CARPUJECT IVP STA (07:30)
[2021-11-02] MEDS ORDERED: diphenhydrAMINE INJ 50 MG/ML VIAL IVP STA (07:30)
[2021-11-02] MEDS ORDERED: SODIUM CHLORIDE 0.9% 1,000 ML IV STA (07:34)
--- NOTE | 2021-11-02 07:34 | ED Physician Documentation ---
ED Addendum - Addendum Addendum: The patient was evaluated on change of shift. She states she has had some improvement in nausea from the second dose of droperidol. However still having a lot of abdominal cramping and back pain and feeling restless. She and her friend state Ativan and Haldol have been useful in the past as well as Dilaudid. This would be a typical combination useful in cannabis hyperemesis and seems reasonable to add on other medicines at this time. Will we will give her some more fluids and also add in some Benadryl in case some of the restless is from the droperidol. Add in Ativan and 4 mg of morphine. She has required hospitalization at times in the past. We will see how well she does here with a bit more medicines. We will recheck the lactate and electrolytes as well. 11/02/21 07:32
[2021-11-02 07:58] LABS: CALCIUM 9.1 mg/dL (8.5-10.3); CREATININE 0.6 mg/dL (0.4-1.0); MAGNESIUM 2.2 mg/dL (1.7-2.8); POTASSIUM 3.9 mmol/L (3.5-5.0)
[2021-11-02] MEDS ORDERED: HYDROmorphone 0.5 MG/0.5 ML SYRINGE IVP STA (08:48)
[2021-11-02] MEDS ORDERED: HALOPERIDOL 5 MG/ML VIAL IVP STA (08:48)
[2021-11-02 09:46] VITALS: BP 103/68
== END 2021-11-02 11:07 | disposition home or self-care (01) ==
LOC: ED 03:16 → MERGE 03:16 → ED 11:07
DX: R11.2 Nausea with vomiting, unspecified (principal); R10.10 Upper abdominal pain, unspecified
CPT/HCPCS: 36415; 80048; 80053; 80320; 82009; 82803; 83605; 83690; 83735; 84443; 85025; 85610; 96361; 96365; 96368; 96375; 96376; 99283; J0131; J1170; J1200; J2060

== ENCOUNTER 2021-11-14 11:36 | Emergency (ER) | payer OTHER ==
[2021-11-14 11:42] VITALS: BP 117/86
== END 2021-11-14 12:23 | disposition left against medical advice (07) ==
LOC: ED 11:36
DX: Z53.21 Procedure and treatment not carried out due to patient leaving prior to being seen by health care provider (principal)

== ENCOUNTER 2022-01-23 00:44 | Emergency (ER) | payer OTHER ==
[2022-01-23] MEDS ORDERED: SODIUM CHLORIDE 0.9% 1,000 ML IV STA ×2 (01:09→01:56)
[2022-01-23] MEDS ORDERED: MORPHINE 10 MG/ML VIAL IVP STA (01:09)
[2022-01-23] MEDS ORDERED: ONDANSETRON 4 MG/2 ML VIAL IVP STA (01:09)
[2022-01-23] MEDS ORDERED: LORazepam 2 MG/ML VIAL IVP STA (01:11)
[2022-01-23 01:26] LABS: BASOPHILS % (AUTO) 0.4 %; EOSINOPHILS # (AUTO) 0.2 10^3/uL (0.0-0.7); EOSINOPHILS % (AUTO) 3.2 %; HCT - HEMATOCRIT 36.3 % (37.0-47.0); HGB - HEMOGLOBIN 11.5 g/dL (12.0-16.0); LYMPHOCYTES # (AUTO) 0.7 10^3/uL (1.5-3.5); LYMPHOCYTES % (AUTO) 12.8 %; MEAN CORPUSCULAR HEMOGLOBIN 26.4 pg (27.0-31.0); MEAN CORPUSCULAR HGB CONC 31.7 g/dL (32.0-36.0); MEAN CORPUSCULAR VOLUME 83.4 fL (81.0-99.0); MEAN PLATELET VOLUME 8.8 fL (7.9-10.8); MONOCYTES # (AUTO) 0.5 10^3/uL (0.0-1.0); MONOCYTES % (AUTO) 8.8 %; NEUTROPHILS # (AUTO) 4.3 10^3/uL (1.5-6.6); NEUTROPHILS % (AUTO) 74.6 %; PLT - PLATELET COUNT 360 10^3/uL (130-450); RED BLOOD COUNT 4.35 10^6/uL (4.20-5.40); RED CELL DISTRIBUTION WIDTH 14.2 % (12.0-15.0); WHITE BLOOD COUNT 5.7 x10^3/uL (4.8-10.8)
[2022-01-23 01:31] LABS: VBG HCO3 22.6 mmol/L (23-28); VBG PCO2 35.9 mmHg (41-51); VBG PH 7.416 (7.31-7.41); VBG PO2 143.6 mmHg (25-47)
[2022-01-23 01:32] LABS: VBG BASE EXCESS -1.5 mmol/L (-2 - +2); VBG OXYGEN SATURATION 98.7 % (60-80); VBG TOTAL CO2 23.7 mmol/L (24-29)
[2022-01-23 01:39] LABS: ALBUMIN 4.5 g/dL (3.2-5.5); ALBUMIN/GLOBULIN RATIO 1.3 (1.0-2.2); ALKALINE PHOSPHATASE 88 IU/L (42-121); ALT ALANINE AMINOTRANSFERASE 30 IU/L (10-60); AST ASPARTATE AMINOTRANSFERASE 44 IU/L (10-42); BILIRUBIN,TOTAL 0.5 mg/dL (0.2-1.0); BUN - BLOOD UREA NITROGEN 19 mg/dL (6-20); CALCIUM 9.4 mg/dL (8.5-10.3); CARBON DIOXIDE - CO2 22 mmol/L (21-32); CHLORIDE 102 mmol/L (101-111); CREATININE 0.7 mg/dL (0.4-1.0); GFR - MDRD 100 (>89); GLUCOSE 213 mg/dL (70-100); LIPASE 21 U/L (22-51); POTASSIUM 3.4 mmol/L (3.5-5.0); SODIUM 139 mmol/L (135-145); TOTAL PROTEIN 7.9 g/dL (6.7-8.2)
[2022-01-23 01:43] LABS: KETONES, SERUM (ACETEST) SMALL (NEGATIVE)
[2022-01-23] MEDS ORDERED: POTASSIUM CHLOR 10 MEQ/100 ML 10 MEQ/100 ML BAG IV STA (01:55)
[2022-01-23 02:14] LABS: CORONAVIRUS 229E-RESP PCR NOT DETECTED; CORONAVIRUS HKU1-RESP PCR NOT DETECTED; CORONAVIRUS NL63-RESP PCR NOT DETECTED; CORONAVIRUS OC43-RESP PCR NOT DETECTED
[2022-01-23 02:15] LABS: B. PARAPERTUSSIS- RESP PCR PAN NOT DETECTED; B. PERTUSSIS- RESP PCR PANEL NOT DETECTED; C. PNEUMONIAE- RESP PCR PANEL NOT DETECTED; HUMAN METAPNEUMOVIRUS NOT DETECTED; INFLUENZA A- RESP PCR PANEL NOT DETECTED; INFLUENZA B - RESP PCR PANEL NOT DETECTED; M. PNEUMONIAE- RESP PCR PANEL NOT DETECTED; PARAINFLUENZA VIRUS 1 NOT DETECTED; PARAINFLUENZA VIRUS 2 NOT DETECTED; PARAINFLUENZA VIRUS 3 NOT DETECTED; PARAINFLUENZA VIRUS 4 NOT DETECTED; RHINOVIRUS/ENTEROVIRUS NOT DETECTED; RSV- RESP PCR PANEL NOT DETECTED; SARS-CoV-2 -RESP PCR PANEL DETECTED
[2022-01-23] MEDS ORDERED: IBUPROFEN 600 MG TABLET PO STA (02:27)
[2022-01-23] MEDS ORDERED: DROPERIDOL 5 MG/2 ML VIAL IVP STA (02:34)
--- NOTE | 2022-01-23 04:47 | ED Physician Documentation ---
History of Present Illness - Stated complaint Stated Complaint: DKA/ POSS COVID - Chief complaint Chief Complaint: Abd Pain - History obtained from History obtained from: Patient, Family (sister) - Additonal information Additional information: 26-year-old woman with history of type 1 diabetes presents with body aches, fever and chills, nonbloody nonbilious nausea and vomiting and abdominal pain. Patient's tested positive for COVID-19 and she thinks that she may have it as well. Review of Systems Ten Systems: 10 systems reviewed and negative Constitutional: reports: Fever, Chills, Myalgias, Fatigue Respiratory: denies: Dyspnea, Cough GI: reports: Abdominal Pain, Nausea, Vomiting PD PAST MEDICAL HISTORY - Past Medical History Past Medical History: Yes Cardiovascular: None Respiratory: None Neuro: Peripheral neuropathy Endocrine/Autoimmune: Type 1 diabetes GI: Other [employer]: Other : None HEENT: None Psych: Anxiety Musculoskeletal: None Derm: None - Past Surgical History Past Surgical History: Yes General: Appendectomy - Present Medications Home Medications: Ambulatory Orders Medication Instructions Recorded Confirmed Insulin Lispro [Humalog] 45 - 56 units SUBQ DAILY 08/12/20 03/05/21 Rizatriptan Benzoate [Rizatriptan] 10 mg PO DAILY PRN 12/18/20 03/05/21 Ondansetron Odt [Zofran Odt] 4 mg TL Q6H PRN #10 tablet 03/02/21 03/05/21 Sucralfate [Carafate] 1 gm PO ACHS #60 tablet 03/02/21 03/05/21 Metoclopramide [Reglan] 10 mg PO BID PRN 03/05/21 03/05/21 Sulfamethox/Trimeth 800/160 1 tab PO BID #6 tablet 03/05/21 [Bactrim Ds] Cefdinir 300 mg PO BID #20 cap 03/29/21 Ondansetron Odt [Zofran] 4 mg TL Q6H PRN #10 tablet 03/29/21 Promethazine Supp [Phenergan Supp] 25 mg LA Q6HR PRN #14 supp 03/29/21 LORazepam [Ativan] 1 mg PO BID PRN #8 tablet 11/02/21 Ondansetron Odt [Zofran] 4 mg TL Q6H PRN #10 tablet 11/02/21 Promethazine Supp [Phenergan Supp] 25 mg LA Q6H PRN #5 supp 11/02/21 - Allergies Allergies/Adverse Reactions: Allergies Allergy/AdvReac Type Severity Reaction Status Date / Time ketorolac [From Toradol] Allergy Rash Verified 01/23/22 00:55 Milk Containing Products Allergy Unknown Verified 01/23/22 00:55 - Social History Does the pt smoke?: No Smoking Status: Never smoker Does the pt drink ETOH?: No Does the pt have substance abuse?: Yes - Immunizations Immunizations are current?: Yes - POLST Patient has POLST: No POLST Status: Full Code PD ED PE NORMAL - Vitals Vital signs reviewed: Yes - General General: Alert and oriented X 3, Other (Writhing in bed, moaning) - HEENT HEENT: Atraumatic, PERRL, EOMI, Pharynx benign, Other (Dry mucous membrane) - Neck Neck: Supple, no meningeal sign - Cardiac Cardiac: RRR - Respiratory Respiratory: No respiratory distress, Clear bilaterally - Abdomen Abdomen: Other (Diffuse discomfort to palpation) - Derm Derm: Normal color, Warm and dry - Extremities Extremities: No deformity - Neuro Neuro: Alert and oriented X 3, No motor deficit, No sensory deficit - Psych Psych: Other (Anxious, tearful) Results - Vitals Vitals: Vital Signs - 24 hr 01/23/22 01/23/22 01/23/22 00:52 01:29 01:35 Temperature 35.1 C L Heart Rate 86 69 70 Respiratory 22 19 20 Rate Blood Pressure 112/80 115/91 H 105/57 L O2 Saturation 98 98 96 01/23/22 01/23/22 01/23/22 02:30 03:20 04:21 Temperature Heart Rate 68 74 61 Respiratory 20 18 17 Rate Blood Pressure 107/57 L 130/67 101/73 O2 Saturation 97 100 96 Oxygen O2 Source Room air - Labs Labs: Laboratory Tests 01/23/22 01/23/22 01/23/22 00:14 00:15 00:15 WBC 5.7 RBC 4.35 Hgb 11.5 L Hct 36.3 L MCV 83.4 MCH 26.4 L MCHC 31.7 L RDW 14.2 Plt Count 360 MPV 8.8 Neut # (Auto) 4.3 Lymph # (Auto) 0.7 L [place] # (Auto) 0.5 Eos # (Auto) 0.2 Baso # (Auto) 0.0 Absolute Nucleated RBC 0.00 Nucleated RBC % 0.0 VBG pH VBG pCO2 VBG pO2 VBG HCO3 VBG Total CO2 VBG O2 Saturation VBG Base Excess Sodium 139 Potassium 3.4 L Chloride 102 Carbon Dioxide 22 Anion Gap 15.0 H BUN 19 Creatinine 0.7 Estimated GFR (MDRD) 100 Glucose 213 H POC Whole Bld Glucose Lactic Acid Calcium 9.4 Total Bilirubin 0.5 AST 44 H ALT 30 Alkaline Phosphatase 88 Total Protein 7.9 Albumin 4.5 Globulin 3.4 Albumin/Globulin Ratio 1.3 Lipase 21 L Nasal Adenovirus (PCR) NOT DETECTED Nasal B. parapertussis DNA (PCR) NOT DETECTED Nasal Coronavir 229E PCR NOT DETECTED Nasal Coronavir HKU1 PCR NOT DETECTED Nasal Coronavir NL63 PCR NOT DETECTED Nasal Coronavir OC43 PCR NOT DETECTED Nasal Enterovir/Rhinovir PCR NOT DETECTED Nasal Influenza B PCR NOT DETECTED Nasal Influenza A PCR NOT DETECTED Nasal Parainfluen 1 PCR NOT DETECTED Nasal Parainfluen 2 PCR NOT DETECTED Nasal Parainfluen 3 PCR NOT DETECTED Nasal Parainfluen 4 PCR NOT DETECTED Nasal RSV (PCR) NOT DETECTED Nasal B.pertussis DNA PCR NOT DETECTED Nasal C.pneumoniae (PCR) NOT DETECTED Kvng Human Metapneumo PCR NOT DETECTED Nasal M.pneumoniae (PCR) NOT DETECTED Nasal SARS-CoV-2 (PCR) DETECTED A Serum Ketones SMALL H 01/23/22 01/23/22 01/23/22 00:15 00:57 01:33 WBC RBC Hgb Hct MCV MCH MCHC RDW Plt Count MPV Neut # (Auto) Lymph # (Auto) [place] # (Auto) Eos # (Auto) Baso # (Auto) Absolute Nucleated RBC Nucleated RBC % VBG pH 7.416 H VBG pCO2 35.9 L VBG pO2 143.6 H VBG HCO3 22.6 L VBG Total CO2 23.7 L VBG O2 Saturation 98.7 H VBG Base Excess -1.5 Sodium Potassium Chloride Carbon Dioxide Anion Gap BUN Creatinine Estimated GFR (MDRD) Glucose POC Whole Bld Glucose 225 H Lactic Acid 3.1 H* Calcium Total Bilirubin AST ALT Alkaline Phosphatase Total Protein Albumin Globulin Albumin/Globulin Ratio Lipase Nasal Adenovirus (PCR) Nasal B. parapertussis DNA (PCR) Nasal Coronavir 229E PCR Nasal Coronavir HKU1 PCR Nasal Coronavir NL63 PCR Nasal Coronavir OC43 PCR Nasal Enterovir/Rhinovir PCR Nasal Influenza B PCR Nasal Influenza A PCR Nasal Parainfluen 1 PCR Nasal Parainfluen 2 PCR Nasal Parainfluen 3 PCR Nasal Parainfluen 4 PCR Nasal RSV (PCR) Nasal B.pertussis DNA PCR Nasal C.pneumoniae (PCR) Kvng Human Metapneumo PCR Nasal M.pneumoniae (PCR) Nasal SARS-CoV-2 (PCR) Serum Ketones PD MEDICAL DECISION MAKING - ED course ED course: Symptoms improved significantly status post symptomatic care. Patient tested positive for COVID-19. Symptomatic care discussed. Lactic acid improved after fluids. Patient will follow-up outpatient with primary care provider. Return precautions given Departure - Departure Clinical Impression: COVID-19, Vomiting Condition: Good Instructions: COVID-19 [facility] Comments: You are seen in the emergency department for COVID-19. You are not in DKA. Please follow-up with your primary provider and return to the emergency department you have any new or worsening symptoms or other concerns.
[2022-01-23 05:23] VITALS: BP 112/87
== END 2022-01-23 06:00 | disposition home or self-care (01) ==
LOC: ED 00:44
DX: U07.1 COVID-19 (principal); E10.9 Type 1 diabetes mellitus without complications; Z79.4 Long term (current) use of insulin
CPT/HCPCS: 36415; 80053; 82009; 82803; 83605; 83690; 85025; 87633; 96361; 96374; 96375; 99283; 99284; J2060

== ENCOUNTER 2022-09-15 18:23 | Inpatient (IN) | payer OTHER ==
[2022-09-15] MEDS ORDERED: SODIUM CHLORIDE 0.9% 1,000 ML IV STA (18:41)
[2022-09-15] MEDS ORDERED: DROPERIDOL 5 MG/2 ML VIAL IVP STA (18:42)
--- NOTE | 2022-09-15 18:51 | ED Physician Documentation ---
PD HPI ABD PAIN - Stated complaint Stated Complaint: NAUSEA/VOMITTING - Chief complaint Chief Complaint: Abd Pain - History obtained from History obtained from: Patient - Additional information Additional information: 27-year-old type I diabetic who uses an insulin pump has been vomiting for about 3 days with upper abdominal pain consistent with prior episodes of gastroparesis. No fevers. Her blood sugars in the 130s right now per her Dexcom. PD PAST MEDICAL HISTORY - Past Medical History Cardiovascular: None Respiratory: None Neuro: Peripheral neuropathy Endocrine/Autoimmune: Type 1 diabetes GI: Other [employer]: Other : None HEENT: None Psych: Anxiety Musculoskeletal: None Derm: None - Past Surgical History Past Surgical History: Yes General: Appendectomy - Present Medications Home Medications: Ambulatory Orders Medication Instructions Recorded Confirmed Insulin Lispro [Humalog] 45 - 56 units SUBQ DAILY 08/12/20 03/05/21 Rizatriptan Benzoate [Rizatriptan] 10 mg PO DAILY PRN 12/18/20 03/05/21 Ondansetron Odt [Zofran Odt] 4 mg TL Q6H PRN #10 tablet 03/02/21 03/05/21 Sucralfate [Carafate] 1 gm PO ACHS #60 tablet 03/02/21 03/05/21 Metoclopramide [Reglan] 10 mg PO BID PRN 03/05/21 03/05/21 Sulfamethox/Trimeth 800/160 1 tab PO BID #6 tablet 03/05/21 [Bactrim Ds] Cefdinir 300 mg PO BID #20 cap 03/29/21 Ondansetron Odt [Zofran] 4 mg TL Q6H PRN #10 tablet 03/29/21 Promethazine Supp [Phenergan Supp] 25 mg RI Q6HR PRN #14 supp 03/29/21 LORazepam [Ativan] 1 mg PO BID PRN #8 tablet 11/02/21 Ondansetron Odt [Zofran] 4 mg TL Q6H PRN #10 tablet 11/02/21 Promethazine Supp [Phenergan Supp] 25 mg RI Q6H PRN #5 supp 11/02/21 - Allergies Allergies/Adverse Reactions: Allergies Allergy/AdvReac Type Severity Reaction Status Date / Time ketorolac [From Toradol] Allergy Rash Verified 01/26/22 07:10 Milk Containing Products Allergy Unknown Verified 01/26/22 07:10 (Dairy) [Milk Containing Products] - Social History Does the pt smoke?: No Smoking Status: Never smoker Does the pt drink ETOH?: No Does the pt have substance abuse?: Yes - Immunizations Immunizations are current?: Yes - POLST Patient has POLST: No POLST Status: Full Code PD ED PE NORMAL - Vitals Vital signs reviewed: Yes - General General: Alert and oriented X 3, No acute distress - Cardiac Cardiac: RRR, No murmur - Respiratory Respiratory: No respiratory distress, Clear bilaterally - Abdomen Abdomen: Normal bowel sounds, Soft, Non tender - Neuro Neuro: Alert and oriented X 3, Normal speech Results - Vitals Vitals: Vital Signs - 24 hr 09/15/22 09/15/22 18:28 20:34 Temperature 36.2 C L Heart Rate 88 86 Respiratory 18 13 Rate Blood Pressure 129/88 H 130/79 O2 Saturation 100 100 Oxygen O2 Source Room air - Labs Labs: Laboratory Tests 09/15/22 09/15/22 09/15/22 20:16 20:16 20:40 WBC 6.7 RBC 4.69 Hgb 12.1 Hct 36.1 L MCV 77.0 L MCH 25.8 L MCHC 33.5 RDW 15.0 Plt Count 345 MPV 8.5 Neut # (Auto) 3.9 Lymph # (Auto) 1.9 [place] # (Auto) 0.9 Eos # (Auto) 0.0 Baso # (Auto) 0.1 Absolute Nucleated RBC 0.00 Nucleated RBC % 0.0 VBG pH 7.467 H VBG pCO2 40.0 L VBG pO2 52.5 H VBG HCO3 28.3 H VBG Total CO2 29.5 H VBG O2 Saturation 89.5 H VBG Base Excess 4.3 H Sodium 132 L Potassium 2.1 L* Chloride 87 L Carbon Dioxide 30 Anion Gap 15.0 H BUN < 5 L Creatinine 0.6 Estimated GFR (MDRD) 119 Glucose 123 H Calcium 8.6 Phosphorus 2.6 Magnesium 1.8 Urine Color Urine Clarity Urine pH Ur Specific Platinum Urine Protein Urine Glucose (UA) Urine Ketones Urine Occult Blood Urine Nitrite Urine Bilirubin Urine Urobilinogen Ur Leukocyte Esterase Ur Microscopic Review Urine Culture Comments Urine HCG, Qual Serum Ketones SMALL H 05/28/23 21:09 WBC RBC Hgb Hct MCV MCH MCHC RDW Plt Count MPV Neut # (Auto) Lymph # (Auto) [place] # (Auto) Eos # (Auto) Baso # (Auto) Absolute Nucleated RBC Nucleated RBC % VBG pH VBG pCO2 VBG pO2 VBG HCO3 VBG Total CO2 VBG O2 Saturation VBG Base Excess Sodium Potassium Chloride Carbon Dioxide Anion Gap BUN Creatinine Estimated GFR (MDRD) Glucose Calcium Phosphorus Magnesium Urine Color YELLOW Urine Clarity CLEAR Urine pH 6.5 Ur Specific [place] <=1.005 Urine Protein NEGATIVE Urine Glucose (UA) NEGATIVE Urine Ketones >=80 H Urine Occult Blood NEGATIVE Urine Nitrite NEGATIVE Urine Bilirubin NEGATIVE Urine Urobilinogen 0.2 (NORMAL) Ur Leukocyte Esterase NEGATIVE Ur Microscopic Review NOT INDICATED Urine Culture Comments NOT INDICATED Urine HCG, Qual NEGATIVE Serum Ketones PD Medical Decision Making - ED course ED course: 27-year-old woman with diabetic gastroparesis presents with apparent exacerbation of same. After the administration of IV droperidol, some morphine, IV fluids she was feeling much better. Remained nontender on recheck. That said review of her labs shows relatively normal CBC. Chemistries are very notable for potassium of 2.1. There is no evidence of diabetic ketoacidosis. Given the fairly low potassium I spoke with Dr. Dorinda Davis of [id number] to admit her at approximately 2130 and oral and IV supplementation of potassium was ordered. Departure - Departure Disposition: ED Place in Observation Clinical Impression: Type 1 diabetes mellitus, Gastroparesis diabeticorum, Hypokalemia Condition: Stable
--- OUTSIDE RECORDS SUMMARY | 2022-09-15 19:05 | EXTERNAL MEDICAL SUMMARY RPT | Continuity of Care Document ---
Author Name Unknown Address [address] [place] [address] Phone Organization [place] Address [address] [place] [address] Phone Care Team Providers Care Survey Compiler Name Role Phone Unavailable Unavailable Unavailable Delonte Trevino Unavailable Unavailable Allergies and Intolerances date description [facility]ations date description facility 2022-08-12 00:00 Met[facility]opramide [facility] 2022-08-16 00:00 Lorazepam [facility] 2022-08-10 00:00 Sulfamethoxazole-Trimethoprim [facility] 2022-08-11 00:00 Sulfamethoxazole-Trimethoprim [facility] 2022-08-10 00:00 [facility] 2022-08-11 00:00 [facility] 2022-08-12 00:00 [facility] 2022-08-16 00:00 [facility] Problems date description facility 2022-08-10 00:00 Dehydration [facility] 2022-08-10 00:00 Complicated urinary tract infec tion [facility] 2022-08-10 00:00 Nausea and vomiting [facility] 2022-08-11 00:00 Urinary tract infection [facility] 2022-08-12 00:00 Chronic [facility] 2022-08-12 08:47 Sepsis, unspecified organism Is [facility] 2022-08-12 09:29 Sepsis, unspecified organism Is [facility] 2022-08-12 10:49 Sepsis, unspecified organism Is [facility] 2022-08-12 10:56 Sepsis, unspecified organism Is [facility] 2022-08-12 12:20 Sepsis, unspecified organism Is [facility] 2022-08-12 14:11 Sepsis, unspecified organism Is [facility] 2022-08-12 14:19 Sepsis, unspecified organism Is [facility] 2022-08-13 07:43 Sepsis, unspecified organism Is [facility] 2022-08-13 13:44 Sepsis, unspecified organism Is [facility] 2022-08-13 13:44 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 [facility] 2022-08-14 18:19 Sepsis, unspecified organism Is [facility] 2022-08-14 18:19 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 [facility] 2022-08-15 13:37 Sepsis, unspecified organism Is [facility] 2022-08-15 13:37 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 [facility] 2022-08-15 13:46 Sepsis, unspecified organism Is [facility] 2022-08-15 13:46 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 [facility] 2022-08-16 11:39 Sepsis, unspecified organism Is [facility] 2022-08-16 11:39 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 [facility] 2022-08-16 12:35 Sepsis, unspecified organism Is [facility] 2022-08-16 12:35 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 [facility] 2022-08-16 12:35 Nausea with vomiting, [facility] 2022-08-16 16:55 Sepsis, unspecified organism Is [facility] 2022-08-16 16:55 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 [facility] 2022-08-16 16:55 Nausea with vomiting, [facility] 2022-08-18 09:57 Sepsis, unspecified organism Is [facility] 2022-08-18 09:57 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 [facility] 2022-08-18 09:57 Nausea with vomiting, [facility] 2022-08-19 09:45 Sepsis, unspecified organism Is [facility] 2022-08-19 09:45 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 [facility] 2022-08-19 09:45 Nausea with vomiting, [facility] 2022-08-19 13:56 Sepsis, unspecified organism Is [facility] 2022-08-19 13:56 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 [facility] 2022-08-19 13:56 Nausea with vomiting, [facility] 2022-09-10 00:00 Vomiting [facility] Procedures date description facility 2022-08-13 00:00 Insertion of Infusio n Device into Left Cephalic Vein, Percutaneous Approach [facility] 2022-08-12 00:00 Ultrasound of both kidneys [facility] 2022-09-10 00:00 X-ray of chest, single [facility] 2022-09-10 00:00 Computed tomography angiography of chest with contrast for pulmonary embolus [facility] Results/Labs test date author facility value unit interpretation Result panel 1 (unknown) (no date) (unknown) [facility] (no value) (units unknown) (unknown) Result panel 2 (unknown) (no date) (unknown) [facility] (no value) (units unknown) (unknown) Result panel 3 (unknown) (no date) (unknown) [facility] (no value) (units unknown) (unknown) Result panel 4 (unknown) (no date) (unknown) [facility] (no value) (units unknown) (unknown) Result panel 5 (unknown) (no date) (unknown) [facility] (no value) (units unknown) (unknown) Result panel 6 (unknown) (no date) (unknown) [facility] (no value) (units unknown) (unknown) Result panel 7 (unknown) (no date) (unknown) [facility] (no value) (units unknown) (unknown) Result panel 8 (unknown) (no date) (unknown) [facility] (no value) (units unknown) (unknown) Result panel 9 (unknown) (no date) (unknown) [facility] (no value) (units unknown) (unknown) Result panel 10 (unknown) (no date) (unknown) [facility] (no value) (units unknown) (unknown) Result panel 11 (unknown) (no date) (unknown) [facility] (no value) (units unknown) (unknown) Result panel 12 (unknown) (no date) (unknown) [facility] (no value) (units unknown) (unknown) Result panel 13 (unknown) (no date) (unknown) [facility] (no value) (units unknown) (unknown) Result panel 14 (unknown) (no date) (unknown) [facility] (no value) (units unknown) (unknown) Result panel 15 (unknown) (no date) (unknown) [facility] (no value) (units unknown) (unknown) Result panel 16 (unknown) (no date) (unknown) [facility] (no value) (units unknown) (unknown) Result panel 17 (unknown) (no date) (unknown) [facility] (unknown) Result panel 18 (unknown) (no date) (unknown) [facility] (no value) (units unknown) (unknown) Result panel 19 (unknown) (no date) (unknown) [facility] (no value) (units unknown) (unknown) Result panel 20 (unknown) (no date) (unknown) [facility] (no value) (units unknown) (unknown) Result panel 21 (unknown) (no date) (unknown) [facility] (no value) (units unknown) (unknown) Result panel 22 (unknown) (no date) (unknown) [facility] (no value) (units unknown) (unknown) Result panel 23 (unknown) (no date) (unknown) [facility] (no value) (units unknown) (unknown) Result panel 24 (unknown) (no date) (unknown) [facility] (no value) (units unknown) (unknown) Result panel 25 (unknown) (no date) (unknown) [facility] (no value) (units unknown) (unknown) Result panel 26 (unknown) (no date) (unknown) [facility] (no value) (units unknown) (unknown) Result panel 27 (unknown) (no date) (unknown) [facility] (no value) (units unknown) (unknown) Result panel 28 (unknown) (no date) (unknown) [facility] (no value) (units unknown) (unknown) Result panel 29 (unknown) (no date) (unknown) [facility] (no value) (units unknown) (unknown) Result panel 30 (unknown) (no date) (unknown) [facility] (no value) (units unknown) (unknown) Result panel 31 (unknown) (no date) (unknown) [facility] (no value) (units unknown) (unknown) Result panel 32 (unknown) (no date) (unknown) [facility] (no value) (units unknown) (unknown) Result panel 33 (unknown) (no date) (unknown) [facility] (no value) (units unknown) (unknown) Result panel 34 (unknown) (no date) (unknown) [facility] (no value) (units unknown) (unknown) Result panel 35 (unknown) (no date) (unknown) [facility] (no value) (units unknown) (unknown) Result panel 36 (unknown) (no date) (unknown) [facility] (no value) (units unknown) (unknown) Result panel 37 (unknown) (no date) (unknown) [facility] (no value) (units unknown) (unknown) Result panel 38 (unknown) (no date) (unknown) [facility] (no value) (units unknown) (unknown) Result panel 39 (unknown) (no date) (unknown) [facility] (no value) (units unknown) (unknown) Result panel 40 (unknown) (no date) (unknown) [facility] (no value) (units unknown) (unknown) Result panel 41 (unknown) (no date) (unknown) [facility] (no value) (units unknown) (unknown) Result panel 42 (unknown) (no date) (unknown) [facility] (no value) (units unknown) (unknown) Result panel 43 (unknown) (no date) (unknown) [facility] (no value) (units unknown) (unknown) Result panel 44 (unknown) (no date) (unknown) [facility] (no value) (units unknown) (unknown) Result panel 45 (unknown) (no date) (unknown) [facility] (no value) (units unknown) (unknown) Result panel 46 (unknown) (no date) (unknown) [facility] (no value) (units unknown) (unknown) Result panel 47 (unknown) (no date) (unknown) [facility] (no value) (units unknown) (unknown) Result panel 48 (unknown) (no date) (unknown) [facility] (no value) (units unknown) (unknown) Result panel 49 (unknown) (no date) (unknown) [facility] (no value) (units unknown) (unknown) Result panel 50 (unknown) (no date) (unknown) [facility] (no value) (units unknown) (unknown) Result panel 51 (unknown) (no date) (unknown) [facility] (no value) (units unknown) (unknown) Result panel 52 (unknown) (no date) (unknown) [facility] (no value) (units unknown) (unknown) Result panel 53 (unknown) (no date) (unknown) [facility] (no value) (units unknown) (unknown) Result panel 54 (unknown) (no date) (unknown) [facility] (no value) (units unknown) (unknown) Result panel 55 (unknown) (no date) (unknown) [facility] (no value) (units unknown) (unknown) Result panel 56 (unknown) (no date) (unknown) [facility]units unknown) (unknown) Result panel 57 (unknown) (no date) (unknown) [facility] (units unknown) (unknown) Result panel 58 (unknown) (no date) (unknown) [facility] (no value) (units unknown) (unknown) Result panel 59 (unknown) (no date) (unknown) [facility] (no value) (units unknown) (unknown) Result panel 60 (unknown) (no date) (unknown) [facility] (no value) (units unknown) (unknown) Result panel 61 (unknown) (no date) (unknown) [facility] (no value) (units unknown) (unknown) Result panel 62 (unknown) (no date) (unknown) [facility] (no value) (units unknown) (unknown) Result panel 63 (unknown) (no date) (unknown) [facility] (no value) (units unknown) (unknown) Result panel 64 (unknown) (no date) (unknown) [facility] (no value) (units unknown) (unknown) Result panel 65 (unknown) (no date) (unknown) [facility] (no value) (units unknown) (unknown) Result panel 66 (unknown) (no date) (unknown) [facility] (no value) (units unknown) (unknown) Result panel 67 (unknown) (no date) (unknown) [facility] (no value) (units unknown) (unknown) Result panel 68 (unknown) (no date) (unknown) [facility] (no value) (units unknown) (unknown) Result panel 69 (unknown) (no date) (unknown) [facility] (no value) (units unknown) (unknown) Result panel 70 (unknown) (no date) (unknown) [facility] (no value) (units unknown) (unknown) Result panel 71 (unknown) (no date) (unknown) [facility] (no value) (units unknown) (unknown) Result panel 72 (unknown) (no date) (unknown) [facility] (no value) (units unknown) (unknown) Result panel 73 (unknown) (no date) (unknown) [facility] (no value) (units unknown) (unknown) Result panel 74 (unknown) (no date) (unknown) [facility] (no value) (units unknown) (unknown) Result panel 75 (unknown) (no date) (unknown) [facility] value[facility] (units unknown) (unknown) Result panel 76 (unknown) (no date) (unknown) [facility] (no value) (units unknown) (unknown) Result panel 77 (unknown) (no date) (unknown) [facility] (no value) (units unknown) (unknown) Result panel 78 (unknown) (no date) (unknown) [facility] (no value) (units unknown) (unknown) Result panel 79 (unknown) (no date) (unknown) [facility] (no value) (units unknown) (unknown) Result panel 80 (unknown) (no date) (unknown) [facility] (no value) (units unknown) (unknown) Result panel 81 (unknown) (no date) (unknown) [facility] (no value) (units unknown) (unknown) Result panel 82 (unknown) (no date) (unknown) [facility] (no value) (units unknown) (unknown) Result panel 83 (unknown) (no date) (unknown) [facility] (no value) (units unknown) (unknown) Result panel 84 (unknown) (no date) (unknown) [facility] (no value) (units unknown) (unknown) Result panel 85 (unknown) (no date) (unknown) [facility] (no value) (units unknown) (unknown) Result panel 86 (unknown) (no date) (unknown) [facility] (no value) (units unknown) (unknown) Result panel 87 (unknown) (no date) (unknown) [facility] (no value) (units unknown) (unknown) Result panel 88 (unknown) (no date) (unknown) [facility] (no value) (units unknown) (unknown) Result panel 89 (unknown) (no date) (unknown) [facility] (no value) (units unknown) (unknown) Result panel 90 (unknown) (no date) (unknown) [facility] (no value) (units unknown) (unknown) Result panel 91 (unknown) (no date) (unknown) [facility] (no value) (units unknown) (unknown) Result panel 92 (unknown) (no date) (unknown) [facility] (no value) (units unknown) (unknown) Result panel 93 (unknown) (no date) (unknown) [facility] (no value) (units unknown) (unknown) Result panel 94 (unknown) (no date) (unknown) [facility] (no value) (units unknown) (unknown) Result panel 95 (unknown) (no date) (unknown) [facility] value[facility] (units unknown) (unknown) Result panel 96 (unknown) (no date) (unknown) [facility] (no value) (units unknown) (unknown) Result panel 97 (unknown) (no date) (unknown) [facility] (no value) (units unknown) (unknown) Result panel 98 (unknown) (no date) (unknown) [facility] (no value) (units unknown) (unknown) Result panel 99 (unknown) (no date) (unknown) [facility] (no value) (units unknown) (unknown) Result panel 100 (unknown) (no date) (unknown) [facility] (no value) (units unknown) (unknown) Result panel 101 (unknown) (no date) (unknown) [facility] (no value) (units unknown) (unknown) Result panel 102 (unknown) (no date) (unknown) [facility] (no value) (units unknown) (unknown) Result panel 103 (unknown) (no date) (unknown) [facility] (no value) (units unknown) (unknown) Result panel 104 (unknown) (no date) (unknown) [facility] (no value) (units unknown) (unknown) Result panel 105 (unknown) (no date) (unknown) [facility] (no value) (units unknown) (unknown) Result panel 106 (unknown) (no date) (unknown) [facility] (no value) (units unknown) (unknown) Result panel 107 (unknown) (no date) (unknown) [facility] (no value) (units unknown) (unknown) Result panel 108 (unknown) (no date) (unknown) [facility] (no value) (units unknown) (unknown) Result panel 109 (unknown) (no date) (unknown) [facility] (no value) (units unknown) (unknown) Result panel 110 (unknown) (no date) (unknown) [facility] (no value) (units unknown) (unknown) Result panel 111 (unknown) (no date) (unknown) [facility] (no value) (units unknown) (unknown) Result panel 112 (unknown) (no date) (unknown) [facility] (no value) (units unknown) (unknown) Result panel 113 (unknown) (no date) (unknown) [facility] (no value) (units unknown) (unknown) Result panel 114 (unknown) (no date) (unknown) [facility] (no value) (units unknown) (unknown) Result panel 115 (unknown) (no date) (unknown) [facility] (no value) (units unknown) (unknown) Result panel 116 (unknown) (no date) (unknown) [facility] (no value) (units unknown) (unknown) Result panel 117 (unknown) (no date) (unknown) [facility] (no value) (units unknown) (unknown) Result panel 118 (unknown) (no date) (unknown) [facility] (no value) (units unknown) (unknown) Result panel 119 (unknown) (no date) (unknown) [facility] (no value) (units unknown) (unknown) Result panel 120 (unknown) (no date) (unknown) [facility] (no value) (units unknown) (unknown) Result panel 121 (unknown) (no date) (unknown) [facility] (no value) (units unknown) (unknown) Result panel 122 (unknown) (no date) (unknown) [facility] (no value) (units unknown) (unknown) Result panel 123 (unknown) (no date) (unknown) [facility] (no value) (units unknown) (unknown) Result panel 124 (unknown) (no date) (unknown) [facility] (no value) (units unknown) (unknown) Result panel 125 (unknown) (no date) (unknown) [facility] (no value) (units unknown) (unknown) Result panel 126 (unknown) (no date) (unknown) [facility] (no value) (units unknown) (unknown) Result panel 127 (unknown) (no date) (unknown) [facility] (no value) (units unknown) (unknown) Result panel 128 (unknown) (no date) (unknown) [facility] (no value) (units unknown) (unknown) Result panel 129 (unknown) (no date) (unknown) [facility] (no value) (units unknown) (unknown) Result panel 130 (unknown) (no date) (unknown) [facility] (no value) (units unknown) (unknown) Result panel 131 (unknown) (no date) (unknown) [facility] (no value) (units unknown) (unknown) Result panel 132 (unknown) (no date) (unknown) [facility] (no value) (units unknown) (unknown) Result panel 133 (unknown) (no date) (unknown) [facility] (no value) (units unknown) (unknown) Result panel 134 (unknown) (no date) (unknown) [facility] (no value) (units unknown) (unknown) Result panel 135 (unknown) (no date) (unknown) [facility] (no value) (units unknown) (unknown) Result panel 136 (unknown) (no date) (unknown) [facility] (no value) (units unknown) (unknown) Result panel 137 (unknown) (no date) (unknown) [facility] (no value) (units unknown) (unknown) Result panel 138 (unknown) (no date) (unknown) [facility] (no value) (units unknown) (unknown) Result panel 139 (unknown) (no date) (unknown) [facility] (no value) (units unknown) (unknown) Result panel 140 (unknown) (no date) (unknown) [facility] (no value) (units unknown) (unknown) Result panel 141 (unknown) (no date) (unknown) [facility] (no value) (units unknown) (unknown) Result panel 142 (unknown) (no date) (unknown) [facility] (no value) (units unknown) (unknown) Result panel 143 (unknown) (no date) (unknown) [facility] (no value) (units unknown) (unknown) Result panel 144 (unknown) (no date) (unknown) [facility] (no value) (units unknown) (unknown) Result panel 145 (unknown) (no date) (unknown) [facility] (no value) (units unknown) (unknown) Result panel 146 (unknown) (no date) (unknown) [facility] (no value) (units unknown) (unknown) Result panel 147 (unknown) (no date) (unknown) [facility] (no value) (units unknown) (unknown) Result panel 148 (unknown) (no date) (unknown) [facility] (no value) (units unknown) (unknown) Result panel 149 (unknown) (no date) (unknown) [facility] (no value) (units unknown) (unknown) Result panel 150 (unknown) (no date) (unknown) [facility] (no value) (units unknown) (unknown) Result panel 151 (unknown) (no date) (unknown) [facility] (no value) (units unknown) (unknown) Result panel 152 (unknown) (no date) (unknown) [facility] (no value) (units unknown) (unknown) Result panel 153 (unknown) (no date) (unknown) [facility] (no value) (units unknown) (unknown) Result panel 154 (unknown) (no date) (unknown) [facility] (no value) (units unknown) (unknown) Result panel 155 (unknown) (no date) (unknown) [facility] (no value) (units unknown) (unknown) Result panel 156 (unknown) (no date) (unknown) [facility] (no value) (units unknown) (unknown) Result panel 157 (unknown) (no date) (unknown) [facility] (no value) (units unknown) (unknown) Result panel 158 (unknown) (no date) (unknown) [facility] (no value) (units unknown) (unknown) Result panel 159 (unknown) (no date) (unknown) [facility] (no value) (units unknown) (unknown) Result panel 160 (unknown) (no date) (unknown) [facility] (no value) (units unknown) (unknown) Result panel 161 (unknown) (no date) (unknown) [facility] (no value) (units unknown) (unknown) Result panel 162 (unknown) (no date) (unknown) [facility] (no value) (units unknown) (unknown) Result panel 163 (unknown) (no date) (unknown) [facility] (no value) (units unknown) (unknown) Result panel 164 (unknown) (no date) (unknown) [facility] (no value) (units unknown) (unknown) Result panel 165 (unknown) (no date) (unknown) [facility] (no value) (units unknown) (unknown) Result panel 166 (unknown) (no date) (unknown) [facility] (no value) (units unknown) (unknown) Result panel 167 (unknown) (no date) (unknown) [facility] (no value) (units unknown) (unknown) Result panel 168 (unknown) (no date) (unknown) [facility] (no value) (units unknown) (unknown) Result panel 169 (unknown) (no date) (unknown) [facility] (no value) (units unknown) (unknown) Result panel 170 (unknown) (no date) (unknown) [facility] (no value) (units unknown) (unknown) Result panel 171 (unknown) (no date) (unknown) [facility] (no value) (units unknown) (unknown) Result panel 172 (unknown) (no date) (unknown) [facility] (no value) (units unknown) (unknown) Result panel 173 (unknown) (no date) (unknown) [facility] (no value) (units unknown) (unknown) Result panel 174 (unknown) (no date) (unknown) [facility] (no value) (units unknown) (unknown) Result panel 175 (unknown) (no date) (unknown) [facility] (no value) (units unknown) (unknown) Result panel 176 (unknown) (no date) (unknown) [facility] (no value) (units unknown) (unknown) Result panel 177 (unknown) (no date) (unknown) [facility] (no value) (units unknown) (unknown) Result panel 178 (unknown) (no date) (unknown) [facility] (no value) (units unknown) (unknown) Result panel 179 (unknown) (no date) (unknown) [facility] (no value) (units unknown) (unknown) Result panel 180 (unknown) (no date) (unknown) [facility] (no value) (units unknown) (unknown) Result panel 181 (unknown) (no date) (unknown) [facility] (no value) (units unknown) (unknown) Result panel 182 (unknown) (no date) (unknown) [facility] (no value) (units unknown) (unknown) Result panel 183 (unknown) (no date) (unknown) [facility] (no value) (units unknown) (unknown) Result panel 184 (unknown) (no date) (unknown) [facility] (no value) (units unknown) (unknown) Result panel 185 (unknown) (no date) (unknown) [facility] (no value) (units unknown) (unknown) Result panel 186 (unknown) (no date) (unknown) [facility] (no value) (units unknown) (unknown) Result panel 187 (unknown) (no date) (unknown) [facility] (no value) (units unknown) (unknown) Result panel 188 (unknown) (no date) (unknown) [facility] (no value) (units unknown) (unknown) Result panel 189 (unknown) (no date) (unknown) [facility] (no value) (units unknown) (unknown) Result panel 190 (unknown) (no date) (unknown) [facility] (no value) (units unknown) (unknown) Result panel 191 (unknown) (no date) (unknown) [facility] (no value) (units unknown) (unknown) Result panel 192 (unknown) (no date) (unknown) [facility] (no value) (units unknown) (unknown) Result panel 193 (unknown) (no date) (unknown) [facility] (no value) (units unknown) (unknown) Result panel 194 (unknown) (no date) (unknown) [facility] (no value) (units unknown) (unknown) Result panel 195 (unknown) (no date) (unknown) [facility] (no value) (units unknown) (unknown) Result panel 196 (unknown) (no date) (unknown) [facility] (no value) (units unknown) (unknown) Result panel 197 (unknown) (no date) (unknown) [facility] (no value) (units unknown) (unknown) Result panel 198 (unknown) (no date) (unknown) [facility] (no value) (units unknown) (unknown) Result panel 199 (unknown) (no date) (unknown) [facility] (no value) (units unknown) (unknown) Result panel 200 (unknown) (no date) (unknown) [facility] (no value) (units unknown) (unknown) Result panel 201 (unknown) (no date) (unknown) [facility] (no value) (units unknown) (unknown) Result panel 202 (unknown) (no date) (unknown) [facility] (no value) (units unknown) (unknown) Result panel 203 (unknown) (no date) (unknown) [facility] (no value) (units unknown) (unknown) Result panel 204 (unknown) (no date) (unknown) [facility] (no value) (units unknown) (unknown) Result panel 205 (unknown) (no date) (unknown) [facility] (no value) (units unknown) (unknown) Result panel 206 (unknown) (no date) (unknown) [facility] (no value) (units unknown) (unknown) Result panel 207 (unknown) (no date) (unknown) [facility] (no value) (units unknown) (unknown) Result panel 208 (unknown) (no date) (unknown) [facility] (no value) (units unknown) (unknown) Result panel 209 (unknown) (no date) (unknown) [facility] (no value) (units unknown) (unknown) Result panel 210 (unknown) (no date) (unknown) [facility] (no value) (units unknown) (unknown) Result panel 211 (unknown) (no date) (unknown) [facility] (no value) (units unknown) (unknown) Result panel 212 (unknown) (no date) (unknown) [facility] (no value) (units unknown) (unknown) Result panel 213 (unknown) (no date) (unknown) [facility] (no value) (units unknown) (unknown) Result panel 214 (unknown) (no date) (unknown) [facility] (no value) (units unknown) (unknown) Result panel 215 (unknown) (no date) (unknown) [facility] (no value) (units unknown) (unknown) Result panel 216 (unknown) (no date) (unknown) [facility] (no value) (units unknown) (unknown) Result panel 217 (unknown) (no date) (unknown) [facility] (no value) (units unknown) (unknown) Result panel 218 (unknown) (no date) (unknown) [facility] (no value) (units unknown) (unknown) Result panel 219 (unknown) (no date) (unknown) [facility] (no value) (units unknown) (unknown) Result panel 220 (unknown) (no date) (unknown) [facility] (no value) (units unknown) (unknown) Result panel 221 (unknown) (no date) (unknown) [facility] (no value) (units unknown) (unknown) Result panel 222 (unknown) (no date) (unknown) [facility] (no value) (units unknown) (unknown) Result panel 223 (unknown) (no date) (unknown) [facility] (no value) (units unknown) (unknown) Result panel 224 (unknown) (no date) (unknown) [facility] (no value) (units unknown) (unknown) Result panel 225 (unknown) (no date) (unknown) [facility] (no value) (units unknown) (unknown) Result panel 226 (unknown) (no date) (unknown) [facility] (no value) (units unknown) (unknown) Result panel 227 (unknown) (no date) (unknown) [facility] (no value) (units unknown) (unknown) Result panel 228 (unknown) (no date) (unknown) [facility] (no value) (units unknown) (unknown) Result panel 229 (unknown) (no date) (unknown) [facility] (no value) (units unknown) (unknown) Result panel 230 (unknown) (no date) (unknown) [facility] (no value) (units unknown) (unknown) Result panel 231 (unknown) (no date) (unknown) [facility] (no value) (units unknown) (unknown) Result panel 232 (unknown) (no date) (unknown) [facility] (no value) (units unknown) (unknown) Result panel 233 (unknown) (no date) (unknown) [facility] (no value) (units unknown) (unknown) Result panel 234 (unknown) (no date) (unknown) [facility] (no value) (units unknown) (unknown) Result panel 235 (unknown) (no date) (unknown) [facility] (no value) (units unknown) (unknown) Result panel 236 (unknown) (no date) (unknown) [facility] (no value) (units unknown) (unknown) Result panel 237 (unknown) (no date) (unknown) [facility] (no value) (units unknown) (unknown) Result panel 238 (unknown) (no date) (unknown) [facility] (no value) (units unknown) (unknown) Result panel 239 (unknown) (no date) (unknown) [facility] (no value) (units unknown) (unknown) Result panel 240 (unknown) (no date) (unknown) [facility] (no value) (units unknown) (unknown) Result panel 241 (unknown) (no date) (unknown) [facility] (no value) (units unknown) (unknown) Result panel 242 (unknown) (no date) (unknown) [facility] (no value) (units unknown) (unknown) Result panel 243 (unknown) (no date) (unknown) [facility] (no value) (units unknown) (unknown) Result panel 244 (unknown) (no date) (unknown) [facility] (no value) (units unknown) (unknown) Result panel 245 (unknown) (no date) (unknown) [facility] (no value) (units unknown) (unknown) Result panel 246 (unknown) (no date) (unknown) [facility] (no value) (units unknown) (unknown) Result panel 247 (unknown) (no date) (unknown) [facility] (no value) (units unknown) (unknown) Result panel 248 (unknown) (no date) (unknown) [facility] (no value) (units unknown) (unknown) Result panel 249 (unknown) (no date) (unknown) [facility] (no value) (units unknown) (unknown) Result panel 250 (unknown) (no date) (unknown) [facility] (no value) (units unknown) (unknown) Result panel 251 (unknown) (no date) (unknown) [facility] (no value) (units unknown) (unknown) Result panel 252 (unknown) (no date) (unknown) [facility] (no value) (units unknown) (unknown) Result panel 253 (unknown) (no date) (unknown) [facility] (no value) (units unknown) (unknown) Result panel 254 (unknown) (no date) (unknown) [facility] (no value) (units unknown) (unknown) Result panel 255 (unknown) (no date) (unknown) [facility] (no value) (units unknown) (unknown) Result panel 256 (unknown) (no date) (unknown) [facility] (no value) (units unknown) (unknown) Result panel 257 (unknown) (no date) (unknown) [facility] (no value) (units unknown) (unknown) Result panel 258 (unknown) (no date) (unknown) [facility] (no value) (units unknown) (unknown) Result panel 259 (unknown) (no date) (unknown) [facility] (no value) (units unknown) (unknown) Result panel 260 (unknown) (no date) (unknown) [facility] (no value) (units unknown) (unknown) Result panel 261 (unknown) (no date) (unknown) [facility] (no value) (units unknown) (unknown) Result panel 262 (unknown) (no date) (unknown) [facility] (no value) (units unknown) (unknown) Result panel 263 (unknown) (no date) (unknown) [facility] (no value) (units unknown) (unknown) Result panel 264 (unknown) (no date) (unknown) [facility] (no value) (units unknown) (unknown) Result panel 265 (unknown) (no date) (unknown) [facility] (no value) (units unknown) (unknown) Result panel 266 (unknown) (no date) (unknown) [facility] (no value) (units unknown) (unknown) Result panel 267 (unknown) (no date) (unknown) [facility] (no value) (units unknown) (unknown) Result panel 268 (unknown) (no date) (unknown) [facility] (no value) (units unknown) (unknown) Result panel 269 (unknown) (no date) (unknown) [facility] (no value) (units unknown) (unknown) Result panel 270 (unknown) (no date) (unknown) [facility] (no value) (units unknown) (unknown) Result panel 271 (unknown) (no date) (unknown) [facility] (no value) (units unknown) (unknown) Result panel 272 (unknown) (no date) (unknown) [facility] (no value) (units unknown) (unknown) Result panel 273 (unknown) (no date) (unknown) [facility] (no value) (units unknown) (unknown) Result panel 274 (unknown) (no date) (unknown) [facility] (no value) (units unknown) (unknown) Result panel 275 (unknown) (no date) (unknown) [facility] (no value) (units unknown) (unknown) Result panel 276 (unknown) (no date) (unknown) [facility] (no value) (units unknown) (unknown) Result panel 277 (unknown) (no date) (unknown) [facility] (no value) (units unknown) (unknown) Result panel 278 (unknown) (no date) (unknown) [facility] (no value) (units unknown) (unknown) Result panel 279 (unknown) (no date) (unknown) [facility] (no value) (units unknown) (unknown) Result panel 280 (unknown) (no date) (unknown) [facility] (no value) (units unknown) (unknown) Result panel 281 (unknown) (no date) (unknown) [facility] (no value) (units unknown) (unknown) Result panel 282 (unknown) (no date) (unknown) [facility] (no value) (units unknown) (unknown) Result panel 283 (unknown) (no date) (unknown) [facility] (no value) (units unknown) (unknown) Result panel 284 (unknown) (no date) (unknown) [facility] (no value) (units unknown) (unknown) Result panel 285 (unknown) (no date) (unknown) [facility] (no value) (units unknown) (unknown) Result panel 286 (unknown) (no date) (unknown) [facility] (no value) (units unknown) (unknown) Result panel 287 (unknown) (no date) (unknown) [facility] (no value) (units unknown) (unknown) Result panel 288 (unknown) (no date) (unknown) [facility] (no value) (units unknown) (unknown) Result panel 289 (unknown) (no date) (unknown) [facility] (no value) (units unknown) (unknown) Result panel 290 (unknown) (no date) (unknown) [facility] (no value) (units unknown) (unknown) Result panel 291 (unknown) (no date) (unknown) [facility] (no value) (units unknown) (unknown) Result panel 292 (unknown) (no date) (unknown) [facility] (no value) (units unknown) (unknown) Result panel 293 (unknown) (no date) (unknown) [facility] (no value) (units unknown) (unknown) Result panel 294 (unknown) (no date) (unknown) [facility] (no value) (units unknown) (unknown) Result panel 295 (unknown) (no date) (unknown) [facility] (no value) (units unknown) (unknown) Result panel 296 (unknown) (no date) (unknown) [facility] (no value) (units unknown) (unknown) Result panel 297 (unknown) (no date) (unknown) [facility] (no value) (units unknown) (unknown) Result panel 298 (unknown) (no date) (unknown) [facility] (no value) (units unknown) (unknown) Result panel 299 (unknown) (no date) (unknown) [facility] (no value) (units unknown) (unknown) Result panel 300 (unknown) (no date) (unknown) [facility] (no value) (units unknown) (unknown) Result panel 301 (unknown) (no date) (unknown) [facility] (no value) (units unknown) (unknown) Result panel 302 (unknown) (no date) (unknown) [facility] (no value) (units unknown) (unknown) Result panel 303 (unknown) (no date) (unknown) [facility] (no value) (units unknown) (unknown) Result panel 304 (unknown) (no date) (unknown) [facility] (no value) (units unknown) (unknown) Result panel 305 (unknown) (no date) (unknown) [facility] (no value) (units unknown) (unknown) Result panel 306 (unknown) (no date) (unknown) [facility] (no value) (units unknown) (unknown) Result panel 307 (unknown) (no date) (unknown) [facility] (no value) (units unknown) (unknown) Result panel 308 (unknown) (no date) (unknown) [facility] (no value) (units unknown) (unknown) Result panel 309 (unknown) (no date) (unknown) [facility] (no value) (units unknown) (unknown) Result panel 310 (unknown) (no date) (unknown) [facility] (no value) (units unknown) (unknown) Result panel 311 (unknown) (no date) (unknown) [facility] (no value) (units unknown) (unknown) Result panel 312 (unknown) (no date) (unknown) [facility] (no value) (units unknown) (unknown) Result panel 313 (unknown) (no date) (unknown) [facility] (no value) (units unknown) (unknown) Result panel 314 (unknown) (no date) (unknown) [facility] (no value) (units unknown) (unknown) Result panel 315 (unknown) (no date) (unknown) [facility] (no value) (units unknown) (unknown) Result panel 316 (unknown) (no date) (unknown) [facility] (no value) (units unknown) (unknown) Result panel 317 (unknown) (no date) (unknown) [facility] (no value) (units unknown) (unknown) Result panel 318 (unknown) (no date) (unknown) [facility] (no value) (units unknown) (unknown) Result panel 319 (unknown) (no date) (unknown) [facility] (no value) (units unknown) (unknown) Result panel 320 (unknown) (no date) (unknown) [facility] (no value) (units unknown) (unknown) Result panel 321 (unknown) (no date) (unknown) [facility] (no value) (units unknown) (unknown) Result panel 322 (unknown) (no date) (unknown) [facility] (no value) (units unknown) (unknown) Result panel 323 (unknown) (no date) (unknown) [facility] (no value) (units unknown) (unknown) Result panel 324 (unknown) (no date) (unknown) [facility] (no value) (units unknown) (unknown) Result panel 325 (unknown) (no date) (unknown) [facility] (no value) (units unknown) (unknown) Result panel 326 (unknown) (no date) (unknown) [facility] (no value) (units unknown) (unknown) Result panel 327 (unknown) (no date) (unknown) [facility] (no value) (units unknown) (unknown) Result panel 328 (unknown) (no date) (unknown) [facility] (no value) (units unknown) (unknown) Result panel 329 (unknown) (no date) (unknown) [facility] (no value) (units unknown) (unknown) Result panel 330 (unknown) (no date) (unknown) [facility] (no value) (units unknown) (unknown) Result panel 331 (unknown) (no date) (unknown) [facility] (no value) (units unknown) (unknown) Result panel 332 (unknown) (no date) (unknown) [facility] (no value) (units unknown) (unknown) Result panel 333 (unknown) (no date) (unknown) [facility] (no value) (units unknown) (unknown) Result panel 334 (unknown) (no date) (unknown) [facility] (no value) (units unknown) (unknown) Result panel 335 (unknown) (no date) (unknown) [facility] (no value) (units unknown) (unknown) Result panel 336 (unknown) (no date) (unknown) [facility] (no value) (units unknown) (unknown) Result panel 337 (unknown) (no date) (unknown) [facility] (no value) (units unknown) (unknown) Result panel 338 (unknown) (no date) (unknown) [facility] (no value) (units unknown) (unknown) Result panel 339 (unknown) (no date) (unknown) [facility] (no value) (units unknown) (unknown) Result panel 340 (unknown) (no date) (unknown) [facility] (no value) (units unknown) (unknown) Result panel 341 (unknown) (no date) (unknown) [facility] (no value) (units unknown) (unknown) Result panel 342 (unknown) (no date) (unknown) [facility] (no value) (units unknown) (unknown) Result panel 343 (unknown) (no date) (unknown) [facility] (no value) (units unknown) (unknown) Result panel 344 (unknown) (no date) (unknown) [facility] (no value) (units unknown) (unknown) Result panel 345 (unknown) (no date) (unknown) [facility] (no value) (units unknown) (unknown) Result panel 346 (unknown) (no date) (unknown) [facility] (no value) (units unknown) (unknown) Result panel 347 (unknown) (no date) (unknown) [facility] (no value) (units unknown) (unknown) Result panel 348 (unknown) (no date) (unknown) [facility] (no value) (units unknown) (unknown) Result panel 349 (unknown) (no date) (unknown) [facility] (no value) (units unknown) (unknown) Result panel 350 (unknown) (no date) (unknown) [facility] (no value) (units unknown) (unknown) Result panel 351 (unknown) (no date) (unknown) [facility] (no value) (units unknown) (unknown) Result panel 352 (unknown) (no date) (unknown) [facility] (no value) (units unknown) (unknown) Result panel 353 (unknown) (no date) (unknown) [facility] (no value) (units unknown) (unknown) Result panel 354 (unknown) (no date) (unknown) [facility] (no value) (units unknown) (unknown) Result panel 355 (unknown) (no date) (unknown) [facility] (no value) (units unknown) (unknown) Result panel 356 (unknown) (no date) (unknown) [facility] (no value) (units unknown) (unknown) Result panel 357 (unknown) (no date) (unknown) [facility] (no value) (units unknown) (unknown) Result panel 358 (unknown) (no date) (unknown) [facility] (no value) (units unknown) (unknown) Result panel 359 (unknown) (no date) (unknown) [facility] (no value) (units unknown) (unknown) Result panel 360 (unknown) (no date) (unknown) [facility] (no value) (units unknown) (unknown) Result panel 361 (unknown) (no date) (unknown) [facility] (no value) (units unknown) (unknown) Result panel 362 (unknown) (no date) (unknown) [facility] (no value) (units unknown) (unknown) Result panel 363 (unknown) (no date) (unknown) [facility] (no value) (units unknown) (unknown) Result panel 364 (unknown) (no date) (unknown) [facility] (no value) (units unknown) (unknown) Result panel 365 (unknown) (no date) (unknown) [facility] (no value) (units unknown) (unknown) Result panel 366 (unknown) (no date) (unknown) [facility] (no value) (units unknown) (unknown) Result panel 367 (unknown) (no date) (unknown) [facility] (no value) (units unknown) (unknown) Result panel 368 (unknown) (no date) (unknown) [facility] (no value) (units unknown) (unknown) Result panel 369 (unknown) (no date) (unknown) [facility] (no value) (units unknown) (unknown) Result panel 370 (unknown) (no date) (unknown) [facility] (no value) (units unknown) (unknown) Result panel 371 (unknown) (no date) (unknown) [facility] (no value) (units unknown) (unknown) Result panel 372 (unknown) (no date) (unknown) [facility] (no value) (units unknown) (unknown) Result panel 373 (unknown) (no date) (unknown) [facility] (no value) (units unknown) (unknown) Result panel 374 (unknown) (no date) (unknown) [facility] (no value) (units unknown) (unknown) Result panel 375 (unknown) (no date) (unknown) [facility] (no value) (units unknown) (unknown) Result panel 376 (unknown) (no date) (unknown) [facility] (no value) (units unknown) (unknown) Result panel 377 (unknown) (no date) (unknown) [facility] (no value) (units unknown) (unknown) Result panel 378 (unknown) (no date) (unknown) [facility] (no value) (units unknown) (unknown) Result panel 379 (unknown) (no date) (unknown) [facility] (no value) (units unknown) (unknown) Result panel 380 (unknown) (no date) (unknown) [facility] (no value) (units unknown) (unknown) Result panel 381 (unknown) (no date) (unknown) [facility] (no value) (units unknown) (unknown) Result panel 382 (unknown) (no date) (unknown) [facility] (no value) (units unknown) (unknown) Result panel 383 (unknown) (no date) (unknown) [facility] (no value) (units unknown) (unknown) Result panel 384 (unknown) (no date) (unknown) [facility] (no value) (units unknown) (unknown) Result panel 385 (unknown) (no date) (unknown) [facility] (no value) (units unknown) (unknown) Result panel 386 (unknown) (no date) (unknown) [facility] (no value) (units unknown) (unknown) Result panel 387 (unknown) (no date) (unknown) [facility] (no value) (units unknown) (unknown) Result panel 388 (unknown) (no date) (unknown) [facility] (no value) (units unknown) (unknown) Result panel 389 (unknown) (no date) (unknown) [facility] (no value) (units unknown) (unknown) Result panel 390 (unknown) (no date) (unknown) [facility] (no value) (units unknown) (unknown) Result panel 391 (unknown) (no date) (unknown) [facility] (no value) (units unknown) (unknown) Result panel 392 (unknown) (no date) (unknown) [facility] (no value) (units unknown) (unknown) Result panel 393 (unknown) (no date) (unknown) [facility] (no value) (units unknown) (unknown) Result panel 394 (unknown) (no date) (unknown) [facility] (no value) (units unknown) (unknown) Result panel 395 (unknown) (no date) (unknown) [facility] (no value) (units unknown) (unknown) Result panel 396 (unknown) (no date) (unknown) [facility] (no value) (units unknown) (unknown) Result panel 397 (unknown) (no date) (unknown) [facility] (no value) (units unknown) (unknown) Result panel 398 (unknown) (no date) (unknown) [facility] (no value) (units unknown) (unknown) Result panel 399 (unknown) (no date) (unknown) [facility] (no value) (units unknown) (unknown) Result panel 400 (unknown) (no date) (unknown) [facility] (no value) (units unknown) (unknown) Result panel 401 (unknown) (no date) (unknown) [facility] (no value) (units unknown) (unknown) Result panel 402 (unknown) (no date) (unknown) [facility] (no value) (units unknown) (unknown) Result panel 403 (unknown) (no date) (unknown) [facility] (no value) (units unknown) (unknown) Result panel 404 (unknown) (no date) (unknown) [facility] (no value) (units unknown) (unknown) Result panel 405 (unknown) (no date) (unknown) [facility] (no value) (units unknown) (unknown) Result panel 406 (unknown) (no date) (unknown) [facility] (no value) (units unknown) (unknown) Result panel 407 (unknown) (no date) (unknown) [facility] (no value) (units unknown) (unknown) Result panel 408 (unknown) (no date) (unknown) [facility] (no value) (units unknown) (unknown) Result panel 409 (unknown) (no date) (unknown) [facility] (no value) (units unknown) (unknown) Result panel 410 (unknown) (no date) (unknown) [facility] (no value) (units unknown) (unknown) Result panel 411 (unknown) (no date) (unknown) [facility] (no value) (units unknown) (unknown) Result panel 412 (unknown) (no date) (unknown) [facility] (no value) (units unknown) (unknown) Result panel 413 (unknown) (no date) (unknown) [facility] (no value) (units unknown) (unknown) Result panel 414 (unknown) (no date) (unknown) [facility] (no value) (units unknown) (unknown) Result panel 415 (unknown) (no date) (unknown) [facility] (no value) (units unknown) (unknown) Result panel 416 (unknown) (no date) (unknown) [facility] (no value) (units unknown) (unknown) Result panel 417 (unknown) (no date) (unknown) [facility] (no value) (units unknown) (unknown) Result panel 418 (unknown) (no date) (unknown) [facility] (no value) (units unknown) (unknown) Result panel 419 (unknown) (no date) (unknown) [facility] (no value) (units unknown) (unknown) Result panel 420 (unknown) (no date) (unknown) [facility] (no value) (units unknown) (unknown) Result panel 421 (unknown) (no date) (unknown) [facility] (no value) (units unknown) (unknown) Result panel 422 (unknown) (no date) (unknown) [facility] (no value) (units unknown) (unknown) Result panel 423 (unknown) (no date) (unknown) [facility] (no value) (units unknown) (unknown) Result panel 424 (unknown) (no date) (unknown) [facility] (no value) (units unknown) (unknown) Result panel 425 (unknown) (no date) (unknown) [facility] (no value) (units unknown) (unknown) Result panel 426 (unknown) (no date) (unknown) [facility] (no value) (units unknown) (unknown) Result panel 427 (unknown) (no date) (unknown) [facility] (no value) (units unknown) (unknown) Result panel 428 (unknown) (no date) (unknown) [facility] (no value) (units unknown) (unknown) Result panel 429 (unknown) (no date) (unknown) [facility] (no value) (units unknown) (unknown) Result panel 430 (unknown) (no date) (unknown) [facility] (no value) (units unknown) (unknown) Result panel 431 (unknown) (no date) (unknown) [facility] (no value) (units unknown) (unknown) Result panel 432 (unknown) (no date) (unknown) [facility] (no value) (units unknown) (unknown) Result panel 433 (unknown) (no date) (unknown) [facility] (no value) (units unknown) (unknown) Result panel 434 (unknown) (no date) (unknown) [facility] (no value) (units unknown) (unknown) Result panel 435 (unknown) (no date) (unknown) [facility] (no value) (units unknown) (unknown) Result panel 436 (unknown) (no date) (unknown) [facility] (no value) (units unknown) (unknown) Result panel 437 (unknown) (no date) (unknown) [facility] (no value) (units unknown) (unknown) Result panel 438 (unknown) (no date) (unknown) [facility] (no value) (units unknown) (unknown) Result panel 439 (unknown) (no date) (unknown) [facility] (no value) (units unknown) (unknown) Result panel 440 (unknown) (no date) (unknown) [facility] (no value) (units unknown) (unknown) Result panel 441 (unknown) (no date) (unknown) [facility] (no value) (units unknown) (unknown) Result panel 442 (unknown) (no date) (unknown) [facility] (no value) (units unknown) (unknown) Result panel 443 (unknown) (no date) (unknown) [facility] (no value) (units unknown) (unknown) Result panel 444 (unknown) (no date) (unknown) [facility] (no value) (units unknown) (unknown) Result panel 445 (unknown) (no date) (unknown) [facility] (no value) (units unknown) (unknown) Result panel 446 (unknown) (no date) (unknown) [facility] (no value) (units unknown) (unknown) Result panel 447 (unknown) (no date) (unknown) [facility] (no value) (units unknown) (unknown) Result panel 448 (unknown) (no date) (unknown) [facility] (no value) (units unknown) (unknown) Result panel 449 (unknown) (no date) (unknown) [facility] (no value) (units unknown) (unknown) Result panel 450 (unknown) (no date) (unknown) [facility] (no value) (units unknown) (unknown) Result panel 451 (unknown) (no date) (unknown) [facility] (no value) (units unknown) (unknown) Result panel 452 (unknown) (no date) (unknown) [facility] (no value) (units unknown) (unknown) Result panel 453 (unknown) (no date) (unknown) [facility] (no value) (units unknown) (unknown) Result panel 454 (unknown) (no date) (unknown) [facility] (no value) (units unknown) (unknown) Result panel 455 (unknown) (no date) (unknown) [facility] (no value) (units unknown) (unknown) Result panel 456 (unknown) (no date) (unknown) [facility] (no value) (units unknown) (unknown) Result panel 457 (unknown) (no date) (unknown) [facility] (no value) (units unknown) (unknown) Result panel 458 (unknown) (no date) (unknown) [facility] (no value) (units unknown) (unknown) Result panel 459 (unknown) (no date) (unknown) [facility] (no value) (units unknown) (unknown) Result panel 460 (unknown) (no date) (unknown) [facility] (no value) (units unknown) (unknown) Result panel 461 (unknown) (no date) (unknown) [facility] (no value) (units unknown) (unknown) Result panel 462 (unknown) (no date) (unknown) [facility] (no value) (units unknown) (unknown) Result panel 463 (unknown) (no date) (unknown) [facility] (no value) (units unknown) (unknown) Result panel 464 (unknown) (no date) (unknown) [facility] (no value) (units unknown) (unknown) Result panel 465 (unknown) (no date) (unknown) [facility] (no value) (units unknown) (unknown) Result panel 466 (unknown) (no date) (unknown) [facility] (no value) (units unknown) (unknown) Result panel 467 (unknown) (no date) (unknown) [facility] (no value) (units unknown) (unknown) Result panel 468 (unknown) (no date) (unknown) [facility] (no value) (units unknown) (unknown) Result panel 469 (unknown) (no date) (unknown) [facility] (no value) (units unknown) (unknown) Result panel 470 (unknown) (no date) (unknown) [facility] (no value) (units unknown) (unknown) Result panel 471 (unknown) (no date) (unknown) [facility] (no value) (units unknown) (unknown) Result panel 472 (unknown) (no date) (unknown) [facility] (no value) (units unknown) (unknown) Result panel 473 (unknown) (no date) (unknown) [facility] (no value) (units unknown) (unknown) Result panel 474 (unknown) (no date) (unknown) [facility] (no value) (units unknown) (unknown) Result panel 475 (unknown) (no date) (unknown) [facility] (no value) (units unknown) (unknown) Result panel 476 (unknown) (no date) (unknown) [facility] (no value) (units unknown) (unknown) Result panel 477 (unknown) (no date) (unknown) [facility] (no value) (units unknown) (unknown) Result panel 478 (unknown) (no date) (unknown) [facility] (no value) (units unknown) (unknown) Result panel 479 (unknown) (no date) (unknown) [facility] (no value) (units unknown) (unknown) Result panel 480 (unknown) (no date) (unknown) [facility] (no value) (units unknown) (unknown) Result panel 481 (unknown) (no date) (unknown) [facility] (no value) (units unknown) (unknown) Result panel 482 (unknown) (no date) (unknown) [facility] (no value) (units unknown) (unknown) Result panel 483 (unknown) (no date) (unknown) [facility] (no value) (units unknown) (unknown) Result panel 484 (unknown) (no date) (unknown) [facility] (no value) (units unknown) (unknown) Result panel 485 (unknown) (no date) (unknown) [facility] (no value) (units unknown) (unknown) Result panel 486 (unknown) (no date) (unknown) [facility] (no value) (units unknown) (unknown) Result panel 487 (unknown) (no date) (unknown) [facility] (no value) (units unknown) (unknown) Result panel 488 (unknown) (no date) (unknown) [facility] (no value) (units unknown) (unknown) Result panel 489 (unknown) (no date) (unknown) [facility] (no value) (units unknown) (unknown) Result panel 490 (unknown) (no date) (unknown) [facility] (no value) (units unknown) (unknown) Result panel 491 (unknown) (no date) (unknown) [facility] (no value) (units unknown) (unknown) Result panel 492 (unknown) (no date) (unknown) [facility] (no value) (units unknown) (unknown) Result panel 493 (unknown) (no date) (unknown) [facility] (no value) (units unknown) (unknown) Result panel 494 (unknown) (no date) (unknown) [facility] (no value) (units unknown) (unknown) Result panel 495 (unknown) (no date) (unknown) [facility] (no value) (units unknown) (unknown) Result panel 496 (unknown) (no date) (unknown) [facility] (no value) (units unknown) (unknown) Result panel 497 (unknown) (no date) (unknown) [facility] (no value) (units unknown) (unknown) Result panel 498 (unknown) (no date) (unknown) [facility] (no value) (units unknown) (unknown) Result panel 499 (unknown) (no date) (unknown) [facility] (no value) (units unknown) (unknown) Result panel 500 (unknown) (no date) (unknown) [facility] (no value) (units unknown) (unknown) Result panel 501 (unknown) (no date) (unknown) [facility] (no value) (units unknown) (unknown) Result panel 502 (unknown) (no date) (unknown) [facility] (no value) (units unknown) (unknown) Result panel 503 (unknown) (no date) (unknown) [facility] (no value) (units unknown) (unknown) Result panel 504 (unknown) (no date) (unknown) [facility] (no value) (units unknown) (unknown) Result panel 505 (unknown) (no date) (unknown) [facility] (no value) (units unknown) (unknown) Result panel 506 (unknown) (no date) (unknown) [facility] (no value) (units unknown) (unknown) Result panel 507 (unknown) (no date) (unknown) [facility] (no value) (units unknown) (unknown) Result panel 508 (unknown) (no date) (unknown) [facility] (no value) (units unknown) (unknown) Result panel 509 (unknown) (no date) (unknown) [facility] (no value) (units unknown) (unknown) Result panel 510 (unknown) (no date) (unknown) [facility] (no value) (units unknown) (unknown) Result panel 511 (unknown) (no date) (unknown) [facility] (no value) (units unknown) (unknown) Result panel 512 (unknown) (no date) (unknown) [facility] (no value) (units unknown) (unknown) Result panel 513 (unknown) (no date) (unknown) [facility] (no value) (units unknown) (unknown) Result panel 514 (unknown) (no date) (unknown) [facility] (no value) (units unknown) (unknown) Result panel 515 (unknown) (no date) (unknown) [facility] (no value) (units unknown) (unknown) Result panel 516 (unknown) (no date) (unknown) [facility] (no value) (units unknown) (unknown) Result panel 517 (unknown) (no date) (unknown) [facility] (no value) (units unknown) (unknown) Result panel 518 (unknown) (no date) (unknown) [facility] (no value) (units unknown) (unknown) Result panel 519 (unknown) (no date) (unknown) [facility] (no value) (units unknown) (unknown) Result panel 520 (unknown) (no date) (unknown) [facility] (no value) (units unknown) (unknown) Result panel 521 (unknown) (no date) (unknown) [facility] (no value) (units unknown) (unknown) Result panel 522 (unknown) (no date) (unknown) [facility] (no value) (units unknown) (unknown) Result panel 523 (unknown) (no date) (unknown) [facility] (no value) (units unknown) (unknown) Result panel 524 (unknown) (no date) (unknown) [facility] (no value) (units unknown) (unknown) Result panel 525 (unknown) (no date) (unknown) [facility] (no value) (units unknown) (unknown) Result panel 526 (unknown) (no date) (unknown) [facility] (no value) (units unknown) (unknown) Result panel 527 (unknown) (no date) (unknown) [facility] (no value) (units unknown) (unknown) Result panel 528 (unknown) (no date) (unknown) [facility] (no value) (units unknown) (unknown) Result panel 529 (unknown) (no date) (unknown) [facility] (no value) (units unknown) (unknown) Result panel 530 (unknown) (no date) (unknown) [facility] (no value) (units unknown) (unknown) Result panel 531 (unknown) (no date) (unknown) [facility] (no value) (units unknown) (unknown) Result panel 532 (unknown) (no date) (unknown) [facility] (no value) (units unknown) (unknown) Result panel 533 (unknown) (no date) (unknown) [facility] (no value) (units unknown) (unknown) Result panel 534 (unknown) (no date) (unknown) [facility] (no value) (units unknown) (unknown) Result panel 535 (unknown) (no date) (unknown) [facility] (no value) (units unknown) (unknown) Result panel 536 (unknown) (no date) (unknown) [facility] (no value) (units unknown) (unknown) Result panel 537 (unknown) (no date) (unknown) [facility] (no value) (units unknown) (unknown) Result panel 538 (unknown) (no date) (unknown) [facility] (no value) (units unknown) (unknown) Result panel 539 (unknown) (no date) (unknown) [facility] (no value) (units unknown) (unknown) Result panel 540 (unknown) (no date) (unknown) [facility] (no value) (units unknown) (unknown) Result panel 541 (unknown) (no date) (unknown) [facility] (no value) (units unknown) (unknown) Result panel 542 (unknown) (no date) (unknown) [facility] (no value) (units unknown) (unknown) Result panel 543 (unknown) (no date) (unknown) [facility] (no value) (units unknown) (unknown) Result panel 544 (unknown) (no date) (unknown) [facility] (no value) (units unknown) (unknown) Result panel 545 (unknown) (no date) (unknown) [facility] (no value) (units unknown) (unknown) Result panel 546 (unknown) (no date) (unknown) [facility] (no value) (units unknown) (unknown) Result panel 547 (unknown) (no date) (unknown) [facility] (no value) (units unknown) (unknown) Result panel 548 (unknown) (no date) (unknown) [facility] (no value) (units unknown) (unknown) Result panel 549 (unknown) (no date) (unknown) [facility] (no value) (units unknown) (unknown) Result panel 550 (unknown) (no date) (unknown) [facility] (no value) (units unknown) (unknown) Result panel 551 (unknown) (no date) (unknown) [facility] (no value) (units unknown) (unknown) Result panel 552 (unknown) (no date) (unknown) [facility] (no value) (units unknown) (unknown) Result panel 553 (unknown) (no date) (unknown) [facility] (no value) (units unknown) (unknown) Result panel 554 (unknown) (no date) (unknown) [facility] (no value) (units unknown) (unknown) Result panel 555 (unknown) (no date) (unknown) [facility] (no value) (units unknown) (unknown) Result panel 556 (unknown) (no date) (unknown) [facility] (no value) (units unknown) (unknown) Result panel 557 (unknown) (no date) (unknown) [facility] (no value) (units unknown) (unknown) Result panel 558 (unknown) (no date) (unknown) [facility] (no value) (units unknown) (unknown) Result panel 559 (unknown) (no date) (unknown) [facility] (no value) (units unknown) (unknown) Result panel 560 (unknown) (no date) (unknown) [facility] (no value) (units unknown) (unknown) Result panel 561 (unknown) (no date) (unknown) [facility] (no value) (units unknown) (unknown) Result panel 562 (unknown) (no date) (unknown) [facility] (no value) (units unknown) (unknown) Result panel 563 (unknown) (no date) (unknown) [facility] (no value) (units unknown) (unknown) Result panel 564 (unknown) (no date) (unknown) [facility] (no value) (units unknown) (unknown) Result panel 565 (unknown) (no date) (unknown) [facility] (no value) (units unknown) (unknown) Result panel 566 (unknown) (no date) (unknown) [facility] (no value) (units unknown) (unknown) Result panel 567 (unknown) (no date) (unknown) [facility] (no value) (units unknown) (unknown) Result panel 568 (unknown) (no date) (unknown) [facility] (no value) (units unknown) (unknown) Result panel 569 (unknown) (no date) (unknown) [facility] (no value) (units unknown) (unknown) Result panel 570 (unknown) (no date) (unknown) [facility] (no value) (units unknown) (unknown) Result panel 571 (unknown) (no date) (unknown) [facility] (no value) (units unknown) (unknown) Result panel 572 (unknown) (no date) (unknown) [facility] (no value) (units unknown) (unknown) Result panel 573 (unknown) (no date) (unknown) [facility] (no value) (units unknown) (unknown) Result panel 574 (unknown) (no date) (unknown) [facility] (no value) (units unknown) (unknown) Result panel 575 (unknown) (no date) (unknown) [facility] (no value) (units unknown) (unknown) Result panel 576 (unknown) (no date) (unknown) [facility] (no value) (units unknown) (unknown) Result panel 577 (unknown) (no date) (unknown) [facility] (no value) (units unknown) (unknown) Result panel 578 (unknown) (no date) (unknown) [facility] (no value) (units unknown) (unknown) Result panel 579 (unknown) (no date) (unknown) [facility] (no value) (units unknown) (unknown) Result panel 580 (unknown) (no date) (unknown) [facility] (no value) (units unknown) (unknown) Result panel 581 (unknown) (no date) (unknown) [facility] (no value) (units unknown) (unknown) Result panel 582 (unknown) (no date) (unknown) [facility] (no value) (units unknown) (unknown) Result panel 583 (unknown) (no date) (unknown) [facility] (no value) (units unknown) (unknown) Result panel 584 (unknown) (no date) (unknown) [facility] (no value) (units unknown) (unknown) Result panel 585 (unknown) (no date) (unknown) [facility] (no value) (units unknown) (unknown) Result panel 586 (unknown) (no date) (unknown) [facility] (no value) (units unknown) (unknown) Result panel 587 (unknown) (no date) (unknown) [facility] (no value) (units unknown) (unknown) Result panel 588 (unknown) (no date) (unknown) [facility] (no value) (units unknown) (unknown) Result panel 589 (unknown) (no date) (unknown) [facility] (no value) (units unknown) (unknown) Result panel 590 (unknown) (no date) (unknown) [facility] (no value) (units unknown) (unknown) Result panel 591 (unknown) (no date) (unknown) [facility] (no value) (units unknown) (unknown) Result panel 592 (unknown) (no date) (unknown) [facility] (no value) (units unknown) (unknown) Result panel 593 (unknown) (no date) (unknown) [facility] (no value) (units unknown) (unknown) Result panel 594 (unknown) (no date) (unknown) [facility] (no value) (units unknown) (unknown) Result panel 595 (unknown) (no date) (unknown) [facility] (no value) (units unknown) (unknown) Result panel 596 (unknown) (no date) (unknown) [facility] (no value) (units unknown) (unknown) Result panel 597 (unknown) (no date) (unknown) [facility] (no value) (units unknown) (unknown) Result panel 598 (unknown) (no date) (unknown) [facility] (no value) (units unknown) (unknown) Result panel 599 (unknown) (no date) (unknown) [facility] (no value) (units unknown) (unknown) Result panel 600 (unknown) (no date) (unknown) [facility] (no value) (units unknown) (unknown) Result panel 601 (unknown) (no date) (unknown) [facility] (no value) (units unknown) (unknown) Result panel 602 (unknown) (no date) (unknown) [facility] (no value) (units unknown) (unknown) Result panel 603 (unknown) (no date) (unknown) [facility] (no value) (units unknown) (unknown) Result panel 604 (unknown) (no date) (unknown) [facility] (no value) (units unknown) (unknown) Result panel 605 (unknown) (no date) (unknown) [facility] (no value) (units unknown) (unknown) Result panel 606 (unknown) (no date) (unknown) [facility] (no value) (units unknown) (unknown) Result panel 607 (unknown) (no date) (unknown) [facility] (no value) (units unknown) (unknown) Result panel 608 (unknown) (no date) (unknown) [facility] (no value) (units unknown) (unknown) Result panel 609 (unknown) (no date) (unknown) [facility] (no value) (units unknown) (unknown) Result panel 610 (unknown) (no date) (unknown) [facility] (no value) (units unknown) (unknown) Result panel 611 (unknown) (no date) (unknown) [facility] (no value) (units unknown) (unknown) Result panel 612 (unknown) (no date) (unknown) [facility] (no value) (units unknown) (unknown) Result panel 613 (unknown) (no date) (unknown) [facility] (no value) (units unknown) (unknown) Result panel 614 (unknown) (no date) (unknown) [facility] (no value) (units unknown) (unknown) Result panel 615 (unknown) (no date) (unknown) [facility] (no value) (units unknown) (unknown) Result panel 616 (unknown) (no date) (unknown) [facility] (no value) (units unknown) (unknown) Result panel 617 (unknown) (no date) (unknown) [facility] (no value) (units unknown) (unknown) Result panel 618 (unknown) (no date) (unknown) [facility] (no value) (units unknown) (unknown) Result panel 619 (unknown) (no date) (unknown) [facility] (no value) (units unknown) (unknown) Result panel 620 (unknown) (no date) (unknown) [facility] (no value) (units unknown) (unknown) Result panel 621 (unknown) (no date) (unknown) [facility] (no value) (units unknown) (unknown) Result panel 622 (unknown) (no date) (unknown) [facility] (no value) (units unknown) (unknown) Result panel 623 (unknown) (no date) (unknown) [facility] (no value) (units unknown) (unknown) Result panel 624 (unknown) (no date) (unknown) [facility] (no value) (units unknown) (unknown) Result panel 625 (unknown) (no date) (unknown) [facility] (no value) (units unknown) (unknown) Result panel 626 (unknown) (no date) (unknown) [facility] (no value) (units unknown) (unknown) Result panel 627 (unknown) (no date) (unknown) [facility] (no value) (units unknown) (unknown) Result panel 628 (unknown) (no date) (unknown) [facility] (no value) (units unknown) (unknown) Result panel 629 (unknown) (no date) (unknown) [facility] (no value) (units unknown) (unknown) Result panel 630 (unknown) (no date) (unknown) [facility] (no value) (units unknown) (unknown) Result panel 631 (unknown) (no date) (unknown) [facility] (no value) (units unknown) (unknown) Result panel 632 (unknown) (no date) (unknown) [facility] (no value) (units unknown) (unknown) Result panel 633 (unknown) (no date) (unknown) [facility] (no value) (units unknown) (unknown) Result panel 634 (unknown) (no date) (unknown) [facility] (no value) (units unknown) (unknown) Result panel 635 (unknown) (no date) (unknown) [facility] (no value) (units unknown) (unknown) Result panel 636 (unknown) (no date) (unknown) [facility] (no value) (units unknown) (unknown) Result panel 637 (unknown) (no date) (unknown) [facility] (no value) (units unknown) (unknown) Result panel 638 (unknown) (no date) (unknown) [facility] (no value) (units unknown) (unknown) Result panel 639 (unknown) (no date) (unknown) [facility] (no value) (units unknown) (unknown) Result panel 640 (unknown) (no date) (unknown) [facility] (no value) (units unknown) (unknown) Result panel 641 (unknown) (no date) (unknown) [facility] (no value) (units unknown) (unknown) Result panel 642 (unknown) (no date) (unknown) [facility] (no value) (units unknown) (unknown) Result panel 643 (unknown) (no date) (unknown) [facility] (no value) (units unknown) (unknown) Result panel 644 (unknown) (no date) (unknown) [facility] (no value) (units unknown) (unknown) Result panel 645 (unknown) (no date) (unknown) [facility] (no value) (units unknown) (unknown) Result panel 646 (unknown) (no date) (unknown) [facility] (no value) (units unknown) (unknown) Result panel 647 (unknown) (no date) (unknown) [facility] (no value) (units unknown) (unknown) Result panel 648 (unknown) (no date) (unknown) [facility] (no value) (units unknown) (unknown) Result panel 649 (unknown) (no date) (unknown) [facility] (no value) (units unknown) (unknown) Result panel 650 (unknown) (no date) (unknown) [facility] (no value) (units unknown) (unknown) Result panel 651 (unknown) (no date) (unknown) [facility] (no value) (units unknown) (unknown) Result panel 652 (unknown) (no date) (unknown) [facility] (no value) (units unknown) (unknown) Result panel 653 (unknown) (no date) (unknown) [facility] (no value) (units unknown) (unknown) Result panel 654 (unknown) (no date) (unknown) [facility] (no value) (units unknown) (unknown) Result panel 655 (unknown) (no date) (unknown) [facility] (no value) (units unknown) (unknown) Result panel 656 (unknown) (no date) (unknown) [facility] (no value) (units unknown) (unknown) Result panel 657 (unknown) (no date) (unknown) [facility] (no value) (units unknown) (unknown) Result panel 658 (unknown) (no date) (unknown) [facility] (no value) (units unknown) (unknown) Result panel 659 (unknown) (no date) (unknown) [facility] (no value) (units unknown) (unknown) Result panel 660 (unknown) (no date) (unknown) [facility] (no value) (units unknown) (unknown) Result panel 661 (unknown) (no date) (unknown) [facility] (no value) (units unknown) (unknown) Result panel 662 (unknown) (no date) (unknown) [facility] (no value) (units unknown) (unknown) Result panel 663 (unknown) (no date) (unknown) [facility] (no value) (units unknown) (unknown) Result panel 664 (unknown) (no date) (unknown) [facility] (no value) (units unknown) (unknown) Result panel 665 (unknown) (no date) (unknown) [facility] (no value) (units unknown) (unknown) Result panel 666 (unknown) (no date) (unknown) [facility] (no value) (units unknown) (unknown) Result panel 667 (unknown) (no date) (unknown) [facility] (no value) (units unknown) (unknown) Result panel 668 (unknown) (no date) (unknown) [facility] (no value) (units unknown) (unknown) Result panel 669 (unknown) (no date) (unknown) [facility] (no value) (units unknown) (unknown) Result panel 670 (unknown) (no date) (unknown) [facility] (no value) (units unknown) (unknown) Result panel 671 (unknown) (no date) (unknown) [facility] (no value) (units unknown) (unknown) Result panel 672 (unknown) (no date) (unknown) [facility] (no value) (units unknown) (unknown) Result panel 673 (unknown) (no date) (unknown) [facility] (no value) (units unknown) (unknown) Result panel 674 (unknown) (no date) (unknown) [facility] (no value) (units unknown) (unknown) Result panel 675 (unknown) (no date) (unknown) [facility] (no value) (units unknown) (unknown) Result panel 676 (unknown) (no date) (unknown) [facility] (no value) (units unknown) (unknown) Result panel 677 (unknown) (no date) (unknown) [facility] (no value) (units unknown) (unknown) Result panel 678 (unknown) (no date) (unknown) [facility] (no value) (units unknown) (unknown) Result panel 679 (unknown) (no date) (unknown) [facility] (no value) (units unknown) (unknown) Result panel 680 (unknown) (no date) (unknown) [facility] (no value) (units unknown) (unknown) Result panel 681 (unknown) (no date) (unknown) [facility] (no value) (units unknown) (unknown) Result panel 682 (unknown) (no date) (unknown) [facility] (no value) (units unknown) (unknown) Result panel 683 (unknown) (no date) (unknown) [facility] (no value) (units unknown) (unknown) Result panel 684 (unknown) (no date) (unknown) [facility] (no value) (units unknown) (unknown) Result panel 685 (unknown) (no date) (unknown) [facility] (no value) (units unknown) (unknown) Result panel 686 (unknown) (no date) (unknown) [facility] (no value) (units unknown) (unknown) Result panel 687 (unknown) (no date) (unknown) [facility] (no value) (units unknown) (unknown) Result panel 688 (unknown) (no date) (unknown) [facility] (no value) (units unknown) (unknown) Result panel 689 (unknown) (no date) (unknown) [facility] (no value) (units unknown) (unknown) Result panel 690 (unknown) (no date) (unknown) [facility] (no value) (units unknown) (unknown) Result panel 691 (unknown) (no date) (unknown) [facility] (no value) (units unknown) (unknown) Result panel 692 (unknown) (no date) (unknown) [facility] (no value) (units unknown) (unknown) Result panel 693 (unknown) (no date) (unknown) [facility] (no value) (units unknown) (unknown) Result panel 694 (unknown) (no date) (unknown) [facility] (no value) (units unknown) (unknown) Result panel 695 (unknown) (no date) (unknown) [facility] (no value) (units unknown) (unknown) Result panel 696 (unknown) (no date) (unknown) [facility] (no value) (units unknown) (unknown) Result panel 697 (unknown) (no date) (unknown) [facility] (no value) (units unknown) (unknown) Result panel 698 (unknown) (no date) (unknown) [facility] (no value) (units unknown) (unknown) Result panel 699 (unknown) (no date) (unknown) [facility] (no value) (units unknown) (unknown) Result panel 700 (unknown) (no date) (unknown) [facility] (no value) (units unknown) (unknown) Result panel 701 (unknown) (no date) (unknown) [facility] (no value) (units unknown) (unknown) Result panel 702 (unknown) (no date) (unknown) [facility] (no value) (units unknown) (unknown) Result panel 703 (unknown) (no date) (unknown) [facility] (no value) (units unknown) (unknown) Result panel 704 (unknown) (no date) (unknown) [facility] (no value) (units unknown) (unknown) Result panel 705 (unknown) (no date) (unknown) [facility] (no value) (units unknown) (unknown) Result panel 706 (unknown) (no date) (unknown) [facility] (no value) (units unknown) (unknown) Result panel 707 (unknown) (no date) (unknown) [facility] (no value) (units unknown) (unknown) Result panel 708 (unknown) (no date) (unknown) [facility] (no value) (units unknown) (unknown) Result panel 709 (unknown) (no date) (unknown) [facility] (no value) (units unknown) (unknown) Result panel 710 (unknown) (no date) (unknown) [facility] (no value) (units unknown) (unknown) Result panel 711 (unknown) (no date) (unknown) [facility] (no value) (units unknown) (unknown) Result panel 712 (unknown) (no date) (unknown) [facility] (no value) (units unknown) (unknown) Result panel 713 (unknown) (no date) (unknown) [facility] (no value) (units unknown) (unknown) Result panel 714 (unknown) (no date) (unknown) [facility] (no value) (units unknown) (unknown) Result panel 715 (unknown) (no date) (unknown) [facility] (no value) (units unknown) (unknown) Result panel 716 (unknown) (no date) (unknown) [facility] (no value) (units unknown) (unknown) Result panel 717 (unknown) (no date) (unknown) [facility] (no value) (units unknown) (unknown) Result panel 718 (unknown) (no date) (unknown) [facility] (no value) (units unknown) (unknown) Result panel 719 (unknown) (no date) (unknown) [facility] (no value) (units unknown) (unknown) Result panel 720 (unknown) (no date) (unknown) [facility] (no value) (units unknown) (unknown) Result panel 721 (unknown) (no date) (unknown) [facility] (no value) (units unknown) (unknown) Result panel 722 (unknown) (no date) (unknown) [facility] (no value) (units unknown) (unknown) Result panel 723 (unknown) (no date) (unknown) [facility] (no value) (units unknown) (unknown) Result panel 724 (unknown) (no date) (unknown) [facility] (no value) (units unknown) (unknown) Result panel 725 (unknown) (no date) (unknown) [facility] (no value) (units unknown) (unknown) Result panel 726 (unknown) (no date) (unknown) [facility] (no value) (units unknown) (unknown) Result panel 727 (unknown) (no date) (unknown) [facility] (no value) (units unknown) (unknown) Result panel 728 (unknown) (no date) (unknown) [facility] (no value) (units unknown) (unknown) Result panel 729 (unknown) (no date) (unknown) [facility] (no value) (units unknown) (unknown) Result panel 730 (unknown) (no date) (unknown) [facility] (no value) (units unknown) (unknown) Result panel 731 (unknown) (no date) (unknown) [facility] (no value) (units unknown) (unknown) Result panel 732 (unknown) (no date) (unknown) [facility] (no value) (units unknown) (unknown) Result panel 733 (unknown) (no date) (unknown) [facility] (no value) (units unknown) (unknown) Result panel 734 (unknown) (no date) (unknown) [facility] (no value) (units unknown) (unknown) Result panel 735 (unknown) (no date) (unknown) [facility] (no value) (units unknown) (unknown) Result panel 736 (unknown) (no date) (unknown) [facility] (no value) (units unknown) (unknown) Result panel 737 (unknown) (no date) (unknown) [facility] (no value) (units unknown) (unknown) Result panel 738 (unknown) (no date) (unknown) [facility] (no value) (units unknown) (unknown) Result panel 739 (unknown) (no date) (unknown) [facility] (no value) (units unknown) (unknown) Result panel 740 (unknown) (no date) (unknown) [facility] (no value) (units unknown) (unknown) Result panel 741 (unknown) (no date) (unknown) [facility] (no value) (units unknown) (unknown) Result panel 742 (unknown) (no date) (unknown) [facility] (no value) (units unknown) (unknown) Result panel 743 (unknown) (no date) (unknown) [facility] (no value) (units unknown) (unknown) Result panel 744 (unknown) (no date) (unknown) [facility] (no value) (units unknown) (unknown) Result panel 745 (unknown) (no date) (unknown) [facility] (no value) (units unknown) (unknown) Result panel 746 (unknown) (no date) (unknown) [facility] (no value) (units unknown) (unknown) Result panel 747 (unknown) (no date) (unknown) [facility] (no value) (units unknown) (unknown) Result panel 748 (unknown) (no date) (unknown) [facility] (no value) (units unknown) (unknown) Result panel 749 (unknown) (no date) (unknown) [facility] (no value) (units unknown) (unknown) Result panel 750 (unknown) (no date) (unknown) [facility] (no value) (units unknown) (unknown) Result panel 751 (unknown) (no date) (unknown) [facility] (no value) (units unknown) (unknown) Result panel 752 (unknown) (no date) (unknown) [facility] (no value) (units unknown) (unknown) Result panel 753 (unknown) (no date) (unknown) [facility] (no value) (units unknown) (unknown) Result panel 754 (unknown) (no date) (unknown) [facility] (no value) (units unknown) (unknown) Result panel 755 (unknown) (no date) (unknown) [facility] (no value) (units unknown) (unknown) Result panel 756 (unknown) (no date) (unknown) [facility] (no value) (units unknown) (unknown) Result panel 757 (unknown) (no date) (unknown) [facility] (no value) (units unknown) (unknown) Result panel 758 (unknown) (no date) (unknown) [facility] (no value) (units unknown) (unknown) Result panel 759 (unknown) (no date) (unknown) [facility] (no value) (units unknown) (unknown) Result panel 760 (unknown) (no date) (unknown) [facility] (no value) (units unknown) (unknown) Result panel 761 (unknown) (no date) (unknown) [facility] (no value) (units unknown) (unknown) Result panel 762 (unknown) (no date) (unknown) [facility] (no value) (units unknown) (unknown) Result panel 763 (unknown) (no date) (unknown) [facility] (no value) (units unknown) (unknown) Result panel 764 (unknown) (no date) (unknown) [facility] (no value) (units unknown) (unknown) Result panel 765 (unknown) (no date) (unknown) [facility] (no value) (units unknown) (unknown) Result panel 766 (unknown) (no date) (unknown) [facility] (no value) (units unknown) (unknown) Result panel 767 (unknown) (no date) (unknown) [facility] (no value) (units unknown) (unknown) Result panel 768 (unknown) (no date) (unknown) [facility] (no value) (units unknown) (unknown) Result panel 769 (unknown) (no date) (unknown) [facility] (no value) (units unknown) (unknown) Result panel 770 (unknown) (no date) (unknown) [facility] (no value) (units unknown) (unknown) Result panel 771 (unknown) (no date) (unknown) [facility] (no value) (units unknown) (unknown) Result panel 772 (unknown) (no date) (unknown) [facility] (no value) (units unknown) (unknown) Result panel 773 (unknown) (no date) (unknown) [facility] (no value) (units unknown) (unknown) Result panel 774 (unknown) (no date) (unknown) [facility] (no value) (units unknown) (unknown) Result panel 775 (unknown) (no date) (unknown) [facility] (no value) (units unknown) (unknown) Result panel 776 (unknown) (no date) (unknown) [facility] (no value) (units unknown) (unknown) Result panel 777 (unknown) (no date) (unknown) [facility] (no value) (units unknown) (unknown) Result panel 778 (unknown) (no date) (unknown) [facility] (no value) (units unknown) (unknown) Result panel 779 (unknown) (no date) (unknown) [facility] (no value) (units unknown) (unknown) Result panel 780 (unknown) (no date) (unknown) [facility] (no value) (units unknown) (unknown) Result panel 781 (unknown) (no date) (unknown) [facility] (no value) (units unknown) (unknown) Result panel 782 (unknown) (no date) (unknown) [facility] (no value) (units unknown) (unknown) Result panel 783 (unknown) (no date) (unknown) [facility] (no value) (units unknown) (unknown) Result panel 784 (unknown) (no date) (unknown) [facility] (no value) (units unknown) (unknown) Result panel 785 (unknown) (no date) (unknown) [facility] (no value) (units unknown) (unknown) Result panel 786 (unknown) (no date) (unknown) [facility] (no value) (units unknown) (unknown) Result panel 787 (unknown) (no date) (unknown) [facility] (no value) (units unknown) (unknown) Result panel 788 (unknown) (no date) (unknown) [facility] (no value) (units unknown) (unknown) Result panel 789 (unknown) (no date) (unknown) [facility] (no value) (units unknown) (unknown) Result panel 790 (unknown) (no date) (unknown) [facility] (no value) (units unknown) (unknown) Result panel 791 (unknown) (no date) (unknown) [facility] (no value) (units unknown) (unknown) Result panel 792 (unknown) (no date) (unknown) [facility] (no value) (units unknown) (unknown) Result panel 793 (unknown) (no date) (unknown) [facility] (no value) (units unknown) (unknown) Result panel 794 (unknown) (no date) (unknown) [facility] (no value) (units unknown) (unknown) Result panel 795 (unknown) (no date) (unknown) [facility] (no value) (units unknown) (unknown) Result panel 796 (unknown) (no date) (unknown) [facility] (no value) (units unknown) (unknown) Result panel 797 (unknown) (no date) (unknown) [facility] (no value) (units unknown) (unknown) Result panel 798 (unknown) (no date) (unknown) [facility] (no value) (units unknown) (unknown) Result panel 799 (unknown) (no date) (unknown) [facility] (no value) (units unknown) (unknown) Result panel 800 (unknown) (no date) (unknown) [facility] (no value) (units unknown) (unknown) Result panel 801 (unknown) (no date) (unknown) [facility] (no value) (units unknown) (unknown) Result panel 802 (unknown) (no date) (unknown) [facility] (no value) (units unknown) (unknown) Result panel 803 (unknown) (no date) (unknown) [facility] (no value) (units unknown) (unknown) Result panel 804 (unknown) (no date) (unknown) [facility] (no value) (units unknown) (unknown) Result panel 805 (unknown) (no date) (unknown) [facility] (no value) (units unknown) (unknown) Result panel 806 (unknown) (no date) (unknown) [facility] (no value) (units unknown) (unknown) Result panel 807 (unknown) (no date) (unknown) [facility] (no value) (units unknown) (unknown) Result panel 808 (unknown) (no date) (unknown) [facility] (no value) (units unknown) (unknown) Result panel 809 (unknown) (no date) (unknown) [facility] (no value) (units unknown) (unknown) Result panel 810 (unknown) (no date) (unknown) [facility] (no value) (units unknown) (unknown) Result panel 811 (unknown) (no date) (unknown) [facility] (no value) (units unknown) (unknown) Result panel 812 (unknown) (no date) (unknown) [facility] (no value) (units unknown) (unknown) Result panel 813 (unknown) (no date) (unknown) [facility] (no value) (units unknown) (unknown) Result panel 814 (unknown) (no date) (unknown) [facility] (no value) (units unknown) (unknown) Result panel 815 (unknown) (no date) (unknown) [facility] (no value) (units unknown) (unknown) Result panel 816 (unknown) (no date) (unknown) [facility] (no value) (units unknown) (unknown) Result panel 817 (unknown) (no date) (unknown) [facility] (no value) (units unknown) (unknown) Result panel 818 (unknown) (no date) (unknown) [facility] (no value) (units unknown) (unknown) Result panel 819 (unknown) (no date) (unknown) [facility] (no value) (units unknown) (unknown) Result panel 820 (unknown) (no date) (unknown) [facility] (no value) (units unknown) (unknown) Result panel 821 (unknown) (no date) (unknown) [facility] (no value) (units unknown) (unknown) Result panel 822 (unknown) (no date) (unknown) [facility] (no value) (units unknown) (unknown) Result panel 823 (unknown) (no date) (unknown) [facility] (no value) (units unknown) (unknown) Result panel 824 (unknown) (no date) (unknown) [facility] (no value) (units unknown) (unknown) Result panel 825 (unknown) (no date) (unknown) [facility] (no value) (units unknown) (unknown) Result panel 826 (unknown) (no date) (unknown) [facility] (no value) (units unknown) (unknown) Result panel 827 (unknown) (no date) (unknown) [facility] (no value) (units unknown) (unknown) Result panel 828 (unknown) (no date) (unknown) [facility] (no value) (units unknown) (unknown) Result panel 829 (unknown) (no date) (unknown) [facility] (no value) (units unknown) (unknown) Result panel 830 (unknown) (no date) (unknown) [facility] (no value) (units unknown) (unknown) Result panel 831 (unknown) (no date) (unknown) [facility] (no value) (units unknown) (unknown) Result panel 832 (unknown) (no date) (unknown) [facility] (no value) (units unknown) (unknown) Result panel 833 (unknown) (no date) (unknown) [facility] (no value) (units unknown) (unknown) Result panel 834 (unknown) (no date) (unknown) [facility] (no value) (units unknown) (unknown) Result panel 835 (unknown) (no date) (unknown) [facility] (no value) (units unknown) (unknown) Result panel 836 (unknown) (no date) (unknown) [facility] (no value) (units unknown) (unknown) Result panel 837 (unknown) (no date) (unknown) [facility] (no value) (units unknown) (unknown) Result panel 838 (unknown) (no date) (unknown) [facility] (no value) (units unknown) (unknown) Result panel 839 (unknown) (no date) (unknown) [facility] (no value) (units unknown) (unknown) Result panel 840 (unknown) (no date) (unknown) [facility] (no value) (units unknown) (unknown) Result panel 841 (unknown) (no date) (unknown) [facility] (no value) (units unknown) (unknown) Result panel 842 (unknown) (no date) (unknown) [facility] (no value) (units unknown) (unknown) Result panel 843 (unknown) (no date) (unknown) [facility] (no value) (units unknown) (unknown) Result panel 844 (unknown) (no date) (unknown) [facility] (no value) (units unknown) (unknown) Result panel 845 (unknown) (no date) (unknown) [facility] (no value) (units unknown) (unknown) Result panel 846 (unknown) (no date) (unknown) [facility] (no value) (units unknown) (unknown) Result panel 847 (unknown) (no date) (unknown) [facility] (no value) (units unknown) (unknown) Result panel 848 (unknown) (no date) (unknown) [facility] (no value) (units unknown) (unknown) Result panel 849 (unknown) (no date) (unknown) [facility] (no value) (units unknown) (unknown) Result panel 850 (unknown) (no date) (unknown) [facility] (no value) (units unknown) (unknown) Result panel 851 (unknown) (no date) (unknown) [facility] (no value) (units unknown) (unknown) Result panel 852 (unknown) (no date) (unknown) [facility] (no value) (units unknown) (unknown) Result panel 853 (unknown) (no date) (unknown) [facility] (no value) (units unknown) (unknown) Result panel 854 (unknown) (no date) (unknown) [facility] (no value) (units unknown) (unknown) Result panel 855 (unknown) (no date) (unknown) [facility] (no value) (units unknown) (unknown) Result panel 856 (unknown) (no date) (unknown) [facility] (no value) (units unknown) (unknown) Result panel 857 (unknown) (no date) (unknown) [facility] (no value) (units unknown) (unknown) Result panel 858 (unknown) (no date) (unknown) [facility] (no value) (units unknown) (unknown) Result panel 859 (unknown) (no date) (unknown) [facility] (no value) (units unknown) (unknown) Result panel 860 (unknown) (no date) (unknown) [facility] (no value) (units unknown) (unknown) Result panel 861 (unknown) (no date) (unknown) [facility] (no value) (units unknown) (unknown) Result panel 862 (unknown) (no date) (unknown) [facility] (no value) (units unknown) (unknown) Result panel 863 (unknown) (no date) (unknown) [facility] (no value) (units unknown) (unknown) Result panel 864 (unknown) (no date) (unknown) [facility] (no value) (units unknown) (unknown) Result panel 865 (unknown) (no date) (unknown) [facility] (no value) (units unknown) (unknown) Result panel 866 (unknown) (no date) (unknown) [facility] (no value) (units unknown) (unknown) Result panel 867 (unknown) (no date) (unknown) [facility] (no value) (units unknown) (unknown) Result panel 868 (unknown) (no date) (unknown) [facility] (no value) (units unknown) (unknown) Result panel 869 (unknown) (no date) (unknown) [facility] (no value) (units unknown) (unknown) Result panel 870 (unknown) (no date) (unknown) [facility] (no value) (units unknown) (unknown) Result panel 871 (unknown) (no date) (unknown) [facility] (no value) (units unknown) (unknown) Result panel 872 (unknown) (no date) (unknown) [facility] (no value) (units unknown) (unknown) Result panel 873 (unknown) (no date) (unknown) [facility] (no value) (units unknown) (unknown) Result panel 874 (unknown) (no date) (unknown) [facility] (no value) (units unknown) (unknown) Result panel 875 (unknown) (no date) (unknown) [facility] (no value) (units unknown) (unknown) Result panel 876 (unknown) (no date) (unknown) [facility] (no value) (units unknown) (unknown) Result panel 877 (unknown) (no date) (unknown) [facility] (no value) (units unknown) (unknown) Result panel 878 (unknown) (no date) (unknown) [facility] (no value) (units unknown) (unknown) Result panel 879 (unknown) (no date) (unknown) [facility] (no value) (units unknown) (unknown) Result panel 880 (unknown) (no date) (unknown) [facility] (no value) (units unknown) (unknown) Result panel 881 (unknown) (no date) (unknown) [facility] (no value) (units unknown) (unknown) Result panel 882 (unknown) (no date) (unknown) [facility] (no value) (units unknown) (unknown) Result panel 883 (unknown) (no date) (unknown) [facility] (no value) (units unknown) (unknown) Result panel 884 (unknown) (no date) (unknown) [facility] (no value) (units unknown) (unknown) Result panel 885 (unknown) (no date) (unknown) [facility] (no value) (units unknown) (unknown) Result panel 886 (unknown) (no date) (unknown) [facility] (no value) (units unknown) (unknown) Result panel 887 (unknown) (no date) (unknown) [facility] (no value) (units unknown) (unknown) Result panel 888 (unknown) (no date) (unknown) [facility] (no value) (units unknown) (unknown) Result panel 889 (unknown) (no date) (unknown) [facility] (no value) (units unknown) (unknown) Result panel 890 (unknown) (no date) (unknown) [facility] (no value) (units unknown) (unknown) Result panel 891 (unknown) (no date) (unknown) [facility] (no value) (units unknown) (unknown) Result panel 892 (unknown) (no date) (unknown) [facility] (no value) (units unknown) (unknown) Result panel 893 (unknown) (no date) (unknown) [facility] (no value) (units unknown) (unknown) Result panel 894 (unknown) (no date) (unknown) [facility] (no value) (units unknown) (unknown) Result panel 895 (unknown) (no date) (unknown) [facility] (no value) (units unknown) (unknown) Result panel 896 (unknown) (no date) (unknown) [facility] (no value) (units unknown) (unknown) Result panel 897 (unknown) (no date) (unknown) [facility] (no value) (units unknown) (unknown) Result panel 898 (unknown) (no date) (unknown) [facility] (no value) (units unknown) (unknown) Result panel 899 (unknown) (no date) (unknown) [facility] (no value) (units unknown) (unknown) Result panel 900 (unknown) (no date) (unknown) [facility] (no value) (units unknown) (unknown) Result panel 901 (unknown) (no date) (unknown) [facility] (no value) (units unknown) (unknown) Result panel 902 (unknown) (no date) (unknown) [facility] (no value) (units unknown) (unknown) Result panel 903 (unknown) (no date) (unknown) [facility] (no value) (units unknown) (unknown) Result panel 904 (unknown) (no date) (unknown) [facility] (no value) (units unknown) (unknown) Result panel 905 (unknown) (no date) (unknown) [facility] (no value) (units unknown) (unknown) Result panel 906 (unknown) (no date) (unknown) [facility] (no value) (units unknown) (unknown) Result panel 907 (unknown) (no date) (unknown) [facility] (no value) (units unknown) (unknown) Result panel 908 (unknown) (no date) (unknown) [facility] (no value) (units unknown) (unknown) Result panel 909 (unknown) (no date) (unknown) [facility] (no value) (units unknown) (unknown) Result panel 910 (unknown) (no date) (unknown) [facility] (no value) (units unknown) (unknown) Result panel 911 (unknown) (no date) (unknown) [facility] (no value) (units unknown) (unknown) Result panel 912 (unknown) (no date) (unknown) [facility] (no value) (units unknown) (unknown) Result panel 913 (unknown) (no date) (unknown) [facility] (no value) (units unknown) (unknown) Result panel 914 (unknown) (no date) (unknown) [facility] (no value) (units unknown) (unknown) Result panel 915 (unknown) (no date) (unknown) [facility] (no value) (units unknown) (unknown) Result panel 916 (unknown) (no date) (unknown) [facility] (no value) (units unknown) (unknown) Result panel 917 (unknown) (no date) (unknown) [facility] (no value) (units unknown) (unknown) Result panel 918 (unknown) (no date) (unknown) [facility] (no value) (units unknown) (unknown) Result panel 919 (unknown) (no date) (unknown) [facility] (no value) (units unknown) (unknown) Result panel 920 (unknown) (no date) (unknown) [facility] (no value) (units unknown) (unknown) Result panel 921 (unknown) (no date) (unknown) [facility] (no value) (units unknown) (unknown) Result panel 922 (unknown) (no date) (unknown) [facility] (no value) (units unknown) (unknown) Result panel 923 (unknown) (no date) (unknown) [facility] (no value) (units unknown) (unknown) Result panel 924 (unknown) (no date) (unknown) [facility] (no value) (units unknown) (unknown) Result panel 925 (unknown) (no date) (unknown) [facility] (no value) (units unknown) (unknown) Result panel 926 (unknown) (no date) (unknown) [facility] (no value) (units unknown) (unknown) Result panel 927 (unknown) (no date) (unknown) [facility] (no value) (units unknown) (unknown) Result panel 928 (unknown) (no date) (unknown) [facility] (no value) (units unknown) (unknown) Result panel 929 (unknown) (no date) (unknown) [facility] (no value) (units unknown) (unknown) Result panel 930 (unknown) (no date) (unknown) [facility] (no value) (units unknown) (unknown) Result panel 931 (unknown) (no date) (unknown) [facility] (no value) (units unknown) (unknown) Result panel 932 (unknown) (no date) (unknown) [facility] (no value) (units unknown) (unknown) Result panel 933 (unknown) (no date) (unknown) [facility] (no value) (units unknown) (unknown) Result panel 934 (unknown) (no date) (unknown) [facility] (no value) (units unknown) (unknown) Result panel 935 (unknown) (no date) (unknown) [facility] (no value) (units unknown) (unknown) Result panel 936 (unknown) (no date) (unknown) [facility] (no value) (units unknown) (unknown) Result panel 937 (unknown) (no date) (unknown) [facility] (no value) (units unknown) (unknown) Result panel 938 (unknown) (no date) (unknown) [facility] (no value) (units unknown) (unknown) Result panel 939 (unknown) (no date) (unknown) [facility] (no value) (units unknown) (unknown) Result panel 940 (unknown) (no date) (unknown) [facility] (no value) (units unknown) (unknown) Result panel 941 (unknown) (no date) (unknown) [facility] (no value) (units unknown) (unknown) Result panel 942 (unknown) (no date) (unknown) [facility] (no value) (units unknown) (unknown) Result panel 943 (unknown) (no date) (unknown) [facility] (no value) (units unknown) (unknown) Result panel 944 (unknown) (no date) (unknown) [facility] (no value) (units unknown) (unknown) Result panel 945 (unknown) (no date) (unknown) [facility] (no value) (units unknown) (unknown) Result panel 946 (unknown) (no date) (unknown) [facility] (no value) (units unknown) (unknown) Result panel 947 (unknown) (no date) (unknown) [facility] (no value) (units unknown) (unknown) Result panel 948 (unknown) (no date) (unknown) [facility] (no value) (units unknown) (unknown) Result panel 949 (unknown) (no date) (unknown) [facility] (no value) (units unknown) (unknown) Result panel 950 (unknown) (no date) (unknown) [facility] (no value) (units unknown) (unknown) Result panel 951 (unknown) (no date) (unknown) [facility] (no value) (units unknown) (unknown) Result panel 952 (unknown) (no date) (unknown) [facility] (no value) (units unknown) (unknown) Result panel 953 (unknown) (no date) (unknown) [facility] (no value) (units unknown) (unknown) Result panel 954 (unknown) (no date) (unknown) [facility] (no value) (units unknown) (unknown) Result panel 955 (unknown) (no date) (unknown) [facility] (no value) (units unknown) (unknown) Result panel 956 (unknown) (no date) (unknown) [facility] (no value) (units unknown) (unknown) Result panel 957 (unknown) (no date) (unknown) [facility] (no value) (units unknown) (unknown) Result panel 958 (unknown) (no date) (unknown) [facility] (no value) (units unknown) (unknown) Result panel 959 (unknown) (no date) (unknown) [facility] (no value) (units unknown) (unknown) Result panel 960 (unknown) (no date) (unknown) [facility] (no value) (units unknown) (unknown) Result panel 961 (unknown) (no date) (unknown) [facility] (no value) (units unknown) (unknown) Result panel 962 (unknown) (no date) (unknown) [facility] (no value) (units unknown) (unknown) Result panel 963 (unknown) (no date) (unknown) [facility] (no value) (units unknown) (unknown) Result panel 964 (unknown) (no date) (unknown) [facility] (no value) (units unknown) (unknown) Result panel 965 (unknown) (no date) (unknown) [facility] (no value) (units unknown) (unknown) Result panel 966 (unknown) (no date) (unknown) [facility] (no value) (units unknown) (unknown) Result panel 967 (unknown) (no date) (unknown) [facility] (no value) (units unknown) (unknown) Result panel 968 (unknown) (no date) (unknown) [facility] (no value) (units unknown) (unknown) Result panel 969 (unknown) (no date) (unknown) [facility] (no value) (units unknown) (unknown) Result panel 970 (unknown) (no date) (unknown) [facility] (no value) (units unknown) (unknown) Result panel 971 (unknown) (no date) (unknown) [facility] (no value) (units unknown) (unknown) Result panel 972 (unknown) (no date) (unknown) [facility] (no value) (units unknown) (unknown) Result panel 973 (unknown) (no date) (unknown) [facility] (no value) (units unknown) (unknown) Result panel 974 (unknown) (no date) (unknown) [facility] (no value) (units unknown) (unknown) Result panel 975 (unknown) (no date) (unknown) [facility] (no value) (units unknown) (unknown) Result panel 976 (unknown) (no date) (unknown) [facility] (no value) (units unknown) (unknown) Result panel 977 (unknown) (no date) (unknown) [facility] (no value) (units unknown) (unknown) Result panel 978 (unknown) (no date) (unknown) [facility] (no value) (units unknown) (unknown) Result panel 979 (unknown) (no date) (unknown) [facility] (no value) (units unknown) (unknown) Result panel 980 (unknown) (no date) (unknown) [facility] (no value) (units unknown) (unknown) Result panel 981 (unknown) (no date) (unknown) [facility] (no value) (units unknown) (unknown) Result panel 982 (unknown) (no date) (unknown) [facility] (no value) (units unknown) (unknown) Result panel 983 (unknown) (no date) (unknown) [facility] (no value) (units unknown) (unknown) Result panel 984 (unknown) (no date) (unknown) [facility] (no value) (units unknown) (unknown) Result panel 985 (unknown) (no date) (unknown) [facility] (no value) (units unknown) (unknown) Result panel 986 (unknown) (no date) (unknown) [facility] (no value) (units unknown) (unknown) Result panel 987 (unknown) (no date) (unknown) [facility] (no value) (units unknown) (unknown) Result panel 988 (unknown) (no date) (unknown) [facility] (no value) (units unknown) (unknown) Result panel 989 (unknown) (no date) (unknown) [facility] (no value) (units unknown) (unknown) Result panel 990 (unknown) (no date) (unknown) [facility] (no value) (units unknown) (unknown) Result panel 991 (unknown) (no date) (unknown) [facility] (no value) (units unknown) (unknown) Result panel 992 (unknown) (no date) (unknown) [facility] (no value) (units unknown) (unknown) Result panel 993 (unknown) (no date) (unknown) [facility] (no value) (units unknown) (unknown) Result panel 994 (unknown) (no date) (unknown) [facility] (no value) (units unknown) (unknown) Result panel 995 (unknown) (no date) (unknown) [facility] (no value) (units unknown) (unknown) Result panel 996 (unknown) (no date) (unknown) [facility] (no value) (units unknown) (unknown) Result panel 997 (unknown) (no date) (unknown) [facility] (no value) (units unknown) (unknown) Result panel 998 (unknown) (no date) (unknown) [facility] (no value) (units unknown) (unknown) Result panel 999 (unknown) (no date) (unknown) [facility] (no value) (units unknown) (unknown) Result panel 1000 (unknown) (no date) (unknown) [facility] (no value) (units unknown) (unknown) Result panel 1001 (unknown) (no date) (unknown) [facility] (no value) (units unknown) (unknown) Result panel 1002 (unknown) (no date) (unknown) [facility] (no value) (units unknown) (unknown) Result panel 1003 (unknown) (no date) (unknown) [facility] (no value) (units unknown) (unknown) Result panel 1004 (unknown) (no date) (unknown) [facility] (no value) (units unknown) (unknown) Result panel 1005 (unknown) (no date) (unknown) [facility] (no value) (units unknown) (unknown) Result panel 1006 (unknown) (no date) (unknown) [facility] (no value) (units unknown) (unknown) Result panel 1007 (unknown) (no date) (unknown) [facility] (no value) (units unknown) (unknown) Result panel 1008 (unknown) (no date) (unknown) [facility] (no value) (units unknown) (unknown) Result panel 1009 (unknown) (no date) (unknown) [facility] (no value) (units unknown) (unknown) Result panel 1010 (unknown) (no date) (unknown) [facility] (no value) (units unknown) (unknown) Result panel 1011 (unknown) (no date) (unknown) [facility] (no value) (units unknown) (unknown) Result panel 1012 (unknown) (no date) (unknown) [facility] (no value) (units unknown) (unknown) Result panel 1013 (unknown) (no date) (unknown) [facility] (no value) (units unknown) (unknown) Result panel 1014 (unknown) (no date) (unknown) [facility] (no value) (units unknown) (unknown) Result panel 1015 (unknown) (no date) (unknown) [facility] (no value) (units unknown) (unknown) Result panel 1016 (unknown) (no date) (unknown) [facility] (no value) (units unknown) (unknown) Result panel 1017 (unknown) (no date) (unknown) [facility] (no value) (units unknown) (unknown) Result panel 1018 (unknown) (no date) (unknown) [facility] (no value) (units unknown) (unknown) Result panel 1019 (unknown) (no date) (unknown) [facility] (no value) (units unknown) (unknown) Result panel 1020 (unknown) (no date) (unknown) [facility] (no value) (units unknown) (unknown) Result panel 1021 (unknown) (no date) (unknown) [facility] (no value) (units unknown) (unknown) Result panel 1022 (unknown) (no date) (unknown) [facility] (no value) (units unknown) (unknown) Result panel 1023 (unknown) (no date) (unknown) [facility] (no value) (units unknown) (unknown) Result panel 1024 (unknown) (no date) (unknown) [facility] (no value) (units unknown) (unknown) Result panel 1025 (unknown) (no date) (unknown) [facility] (no value) (units unknown) (unknown) Result panel 1026 (unknown) (no date) (unknown) [facility] (no value) (units unknown) (unknown) Result panel 1027 (unknown) (no date) (unknown) [facility] (no value) (units unknown) (unknown) Result panel 1028 (unknown) (no date) (unknown) [facility] (no value) (units unknown) (unknown) Result panel 1029 (unknown) (no date) (unknown) [facility] (no value) (units unknown) (unknown) Result panel 1030 (unknown) (no date) (unknown) [facility] (no value) (units unknown) (unknown) Result panel 1031 (unknown) (no date) (unknown) [facility] (no value) (units unknown) (unknown) Result panel 1032 (unknown) (no date) (unknown) [facility] (no value) (units unknown) (unknown) Result panel 1033 (unknown) (no date) (unknown) [facility] (no value) (units unknown) (unknown) Result panel 1034 (unknown) (no date) (unknown) [facility] (no value) (units unknown) (unknown) Result panel 1035 (unknown) (no date) (unknown) [facility] (no value) (units unknown) (unknown) Result panel 1036 (unknown) (no date) (unknown) [facility] (no value) (units unknown) (unknown) Result panel 1037 (unknown) (no date) (unknown) [facility] (no value) (units unknown) (unknown) Result panel 1038 (unknown) (no date) (unknown) [facility] (no value) (units unknown) (unknown) Result panel 1039 (unknown) (no date) (unknown) [facility] (no value) (units unknown) (unknown) Result panel 1040 (unknown) (no date) (unknown) [facility] (no value) (units unknown) (unknown) Result panel 1041 (unknown) (no date) (unknown) [facility] (no value) (units unknown) (unknown) Result panel 1042 (unknown) (no date) (unknown) [facility] (no value) (units unknown) (unknown) Result panel 1043 (unknown) (no date) (unknown) [facility] (no value) (units unknown) (unknown) Result panel 1044 (unknown) (no date) (unknown) [facility] (no value) (units unknown) (unknown) Result panel 1045 (unknown) (no date) (unknown) [facility] (no value) (units unknown) (unknown) Result panel 1046 (unknown) (no date) (unknown) [facility] (no value) (units unknown) (unknown) Result panel 1047 (unknown) (no date) (unknown) [facility] (no value) (units unknown) (unknown) Result panel 1048 (unknown) (no date) (unknown) [facility] (no value) (units unknown) (unknown) Result panel 1049 (unknown) (no date) (unknown) [facility] (no value) (units unknown) (unknown) Result panel 1050 (unknown) (no date) (unknown) [facility] (no value) (units unknown) (unknown) Result panel 1051 (unknown) (no date) (unknown) [facility] (no value) (units unknown) (unknown) Result panel 1052 (unknown) (no date) (unknown) [facility] (no value) (units unknown) (unknown) Result panel 1053 (unknown) (no date) (unknown) [facility] (no value) (units unknown) (unknown) Result panel 1054 (unknown) (no date) (unknown) [facility] (no value) (units unknown) (unknown) Result panel 1055 (unknown) (no date) (unknown) [facility] (no value) (units unknown) (unknown) Result panel 1056 (unknown) (no date) (unknown) [facility] (no value) (units unknown) (unknown) Result panel 1057 (unknown) (no date) (unknown) [facility] (no value) (units unknown) (unknown) Result panel 1058 (unknown) (no date) (unknown) [facility] (no value) (units unknown) (unknown) Result panel 1059 (unknown) (no date) (unknown) [facility] (no value) (units unknown) (unknown) Result panel 1060 (unknown) (no date) (unknown) [facility] (no value) (units unknown) (unknown) Result panel 1061 (unknown) (no date) (unknown) [facility] (no value) (units unknown) (unknown) Result panel 1062 (unknown) (no date) (unknown) [facility] (no value) (units unknown) (unknown) Result panel 1063 (unknown) (no date) (unknown) [facility] (no value) (units unknown) (unknown) Result panel 1064 (unknown) (no date) (unknown) [facility] (no value) (units unknown) (unknown) Result panel 1065 (unknown) (no date) (unknown) [facility] (no value) (units unknown) (unknown) Result panel 1066 (unknown) (no date) (unknown) [facility] (no value) (units unknown) (unknown) Result panel 1067 (unknown) (no date) (unknown) [facility] (no value) (units unknown) (unknown) Result panel 1068 (unknown) (no date) (unknown) [facility] (no value) (units unknown) (unknown) Result panel 1069 (unknown) (no date) (unknown) [facility] (no value) (units unknown) (unknown) Result panel 1070 (unknown) (no date) (unknown) [facility] (no value) (units unknown) (unknown) Result panel 1071 (unknown) (no date) (unknown) [facility] (no value) (units unknown) (unknown) Result panel 1072 (unknown) (no date) (unknown) [facility] (no value) (units unknown) (unknown) Result panel 1073 (unknown) (no date) (unknown) [facility] (no value) (units unknown) (unknown) Result panel 1074 (unknown) (no date) (unknown) [facility] (no value) (units unknown) (unknown) Result panel 1075 (unknown) (no date) (unknown) [facility] (no value) (units unknown) (unknown) Result panel 1076 (unknown) (no date) (unknown) [facility] (no value) (units unknown) (unknown) Result panel 1077 (unknown) (no date) (unknown) [facility] (no value) (units unknown) (unknown) Result panel 1078 (unknown) (no date) (unknown) [facility] (no value) (units unknown) (unknown) Result panel 1079 (unknown) (no date) (unknown) [facility] (no value) (units unknown) (unknown) Result panel 1080 (unknown) (no date) (unknown) [facility] (no value) (units unknown) (unknown) Result panel 1081 (unknown) (no date) (unknown) [facility] (no value) (units unknown) (unknown) Result panel 1082 (unknown) (no date) (unknown) [facility] (no value) (units unknown) (unknown) Result panel 1083 (unknown) (no date) (unknown) [facility] (no value) (units unknown) (unknown) Result panel 1084 (unknown) (no date) (unknown) [facility] (no value) (units unknown) (unknown) Result panel 1085 (unknown) (no date) (unknown) [facility] (no value) (units unknown) (unknown) Result panel 1086 (unknown) (no date) (unknown) [facility] (no value) (units unknown) (unknown) Result panel 1087 (unknown) (no date) (unknown) [facility] (no value) (units unknown) (unknown) Result panel 1088 (unknown) (no date) (unknown) [facility] (no value) (units unknown) (unknown) Result panel 1089 (unknown) (no date) (unknown) [facility] (no value) (units unknown) (unknown) Result panel 1090 (unknown) (no date) (unknown) [facility] (no value) (units unknown) (unknown) Result panel 1091 (unknown) (no date) (unknown) [facility] (no value) (units unknown) (unknown) Result panel 1092 (unknown) (no date) (unknown) [facility] (no value) (units unknown) (unknown) Result panel 1093 (unknown) (no date) (unknown) [facility] (no value) (units unknown) (unknown) Result panel 1094 (unknown) (no date) (unknown) [facility] (no value) (units unknown) (unknown) Result panel 1095 (unknown) (no date) (unknown) [facility] (no value) (units unknown) (unknown) Result panel 1096 (unknown) (no date) (unknown) [facility] (no value) (units unknown) (unknown) Result panel 1097 (unknown) (no date) (unknown) [facility] (no value) (units unknown) (unknown) Result panel 1098 (unknown) (no date) (unknown) [facility] (no value) (units unknown) (unknown) Result panel 1099 (unknown) (no date) (unknown) [facility] (no value) (units unknown) (unknown) Result panel 1100 (unknown) (no date) (unknown) [facility] (no value) (units unknown) (unknown) Result panel 1101 (unknown) (no date) (unknown) [facility] (no value) (units unknown) (unknown) Result panel 1102 (unknown) (no date) (unknown) [facility] (no value) (units unknown) (unknown) Result panel 1103 (unknown) (no date) (unknown) [facility] (no value) (units unknown) (unknown) Result panel 1104 (unknown) (no date) (unknown) [facility] (no value) (units unknown) (unknown) Result panel 1105 (unknown) (no date) (unknown) [facility] (no value) (units unknown) (unknown) Result panel 1106 (unknown) (no date) (unknown) [facility] (no value) (units unknown) (unknown) Result panel 1107 (unknown) (no date) (unknown) [facility] (no value) (units unknown) (unknown) Result panel 1108 (unknown) (no date) (unknown) [facility] (no value) (units unknown) (unknown) Result panel 1109 (unknown) (no date) (unknown) [facility] (no value) (units unknown) (unknown) Result panel 1110 (unknown) (no date) (unknown) [facility] (no value) (units unknown) (unknown) Result panel 1111 (unknown) (no date) (unknown) [facility] (no value) (units unknown) (unknown) Result panel 1112 (unknown) (no date) (unknown) [facility] (no value) (units unknown) (unknown) Result panel 1113 (unknown) (no date) (unknown) [facility] (no value) (units unknown) (unknown) Result panel 1114 (unknown) (no date) (unknown) [facility] (no value) (units unknown) (unknown) Result panel 1115 (unknown) (no date) (unknown) [facility] (no value) (units unknown) (unknown) Result panel 1116 (unknown) (no date) (unknown) [facility] (no value) (units unknown) (unknown) Result panel 1117 (unknown) (no date) (unknown) [facility] (no value) (units unknown) (unknown) Result panel 1118 (unknown) (no date) (unknown) [facility] (no value) (units unknown) (unknown) Result panel 1119 (unknown) (no date) (unknown) [facility] (no value) (units unknown) (unknown) Result panel 1120 (unknown) (no date) (unknown) [facility] (no value) (units unknown) (unknown) Result panel 1121 (unknown) (no date) (unknown) [facility] (no value) (units unknown) (unknown) Result panel 1122 (unknown) (no date) (unknown) [facility] (no value) (units unknown) (unknown) Result panel 1123 (unknown) (no date) (unknown) [facility] (no value) (units unknown) (unknown) Result panel 1124 (unknown) (no date) (unknown) [facility] (no value) (units unknown) (unknown) Result panel 1125 (unknown) (no date) (unknown) [facility] (no value) (units unknown) (unknown) Result panel 1126 (unknown) (no date) (unknown) [facility] (no value) (units unknown) (unknown) Result panel 1127 (unknown) (no date) (unknown) [facility] (no value) (units unknown) (unknown) Result panel 1128 (unknown) (no date) (unknown) [facility] (no value) (units unknown) (unknown) Result panel 1129 (unknown) (no date) (unknown) [facility] (no value) (units unknown) (unknown) Result panel 1130 (unknown) (no date) (unknown) [facility] (no value) (units unknown) (unknown) Result panel 1131 (unknown) (no date) (unknown) [facility] (no value) (units unknown) (unknown) Result panel 1132 (unknown) (no date) (unknown) [facility] (no value) (units unknown) (unknown) Result panel 1133 (unknown) (no date) (unknown) [facility] (no value) (units unknown) (unknown) Result panel 1134 (unknown) (no date) (unknown) [facility] (no value) (units unknown) (unknown) Result panel 1135 (unknown) (no date) (unknown) [facility] (no value) (units unknown) (unknown) Result panel 1136 (unknown) (no date) (unknown) [facility] (no value) (units unknown) (unknown) Result panel 1137 (unknown) (no date) (unknown) [facility] (no value) (units unknown) (unknown) Result panel 1138 (unknown) (no date) (unknown) [facility] (no value) (units unknown) (unknown) Result panel 1139 (unknown) (no date) (unknown) [facility] (no value) (units unknown) (unknown) Result panel 1140 (unknown) (no date) (unknown) [facility] (no value) (units unknown) (unknown) Result panel 1141 (unknown) (no date) (unknown) [facility] (no value) (units unknown) (unknown) Result panel 1142 (unknown) (no date) (unknown) [facility] (no value) (units unknown) (unknown) Result panel 1143 (unknown) (no date) (unknown) [facility] (no value) (units unknown) (unknown) Result panel 1144 (unknown) (no date) (unknown) [facility] (no value) (units unknown) (unknown) Result panel 1145 (unknown) (no date) (unknown) [facility] (no value) (units unknown) (unknown) Result panel 1146 (unknown) (no date) (unknown) [facility] (no value) (units unknown) (unknown) Result panel 1147 (unknown) (no date) (unknown) [facility] (no value) (units unknown) (unknown) Result panel 1148 (unknown) (no date) (unknown) [facility] (no value) (units unknown) (unknown) Result panel 1149 (unknown) (no date) (unknown) [facility] (no value) (units unknown) (unknown) Result panel 1150 (unknown) (no date) (unknown) [facility] (no value) (units unknown) (unknown) Result panel 1151 (unknown) (no date) (unknown) [facility] (no value) (units unknown) (unknown) Result panel 1152 (unknown) (no date) (unknown) [facility] (no value) (units unknown) (unknown) Result panel 1153 (unknown) (no date) (unknown) [facility] (no value) (units unknown) (unknown) Result panel 1154 (unknown) (no date) (unknown) [facility] (no value) (units unknown) (unknown) Result panel 1155 (unknown) (no date) (unknown) [facility] (no value) (units unknown) (unknown) Result panel 1156 (unknown) (no date) (unknown) [facility] (no value) (units unknown) (unknown) Result panel 1157 (unknown) (no date) (unknown) [facility] (no value) (units unknown) (unknown) Result panel 1158 (unknown) (no date) (unknown) [facility] (no value) (units unknown) (unknown) Result panel 1159 (unknown) (no date) (unknown) [facility] (no value) (units unknown) (unknown) Result panel 1160 (unknown) (no date) (unknown) [facility] (no value) (units unknown) (unknown) Result panel 1161 (unknown) (no date) (unknown) [facility] (no value) (units unknown) (unknown) Result panel 1162 (unknown) (no date) (unknown) [facility] (no value) (units unknown) (unknown) Result panel 1163 (unknown) (no date) (unknown) [facility] (no value) (units unknown) (unknown) Result panel 1164 (unknown) (no date) (unknown) [facility] (no value) (units unknown) (unknown) Result panel 1165 (unknown) (no date) (unknown) [facility] (no value) (units unknown) (unknown) Result panel 1166 (unknown) (no date) (unknown) [facility] (no value) (units unknown) (unknown) Result panel 1167 (unknown) (no date) (unknown) [facility] (no value) (units unknown) (unknown) Result panel 1168 (unknown) (no date) (unknown) [facility] (no value) (units unknown) (unknown) Result panel 1169 (unknown) (no date) (unknown) [facility] (no value) (units unknown) (unknown) Result panel 1170 (unknown) (no date) (unknown) [facility] (no value) (units unknown) (unknown) Result panel 1171 (unknown) (no date) (unknown) [facility] (no value) (units unknown) (unknown) Result panel 1172 (unknown) (no date) (unknown) [facility] (no value) (units unknown) (unknown) Result panel 1173 (unknown) (no date) (unknown) [facility] (no value) (units unknown) (unknown) Result panel 1174 (unknown) (no date) (unknown) [facility] (no value) (units unknown) (unknown) Result panel 1175 (unknown) (no date) (unknown) [facility] (no value) (units unknown) (unknown) Result panel 1176 (unknown) (no date) (unknown) [facility] (no value) (units unknown) (unknown) Result panel 1177 (unknown) (no date) (unknown) [facility] (no value) (units unknown) (unknown) Result panel 1178 (unknown) (no date) (unknown) [facility] (no value) (units unknown) (unknown) Result panel 1179 (unknown) (no date) (unknown) [facility] (no value) (units unknown) (unknown) Result panel 1180 (unknown) (no date) (unknown) [facility] (no value) (units unknown) (unknown) Result panel 1181 (unknown) (no date) (unknown) [facility] (no value) (units unknown) (unknown) Result panel 1182 (unknown) (no date) (unknown) [facility] (no value) (units unknown) (unknown) Result panel 1183 (unknown) (no date) (unknown) [facility] (no value) (units unknown) (unknown) Result panel 1184 (unknown) (no date) (unknown) [facility] (no value) (units unknown) (unknown) Result panel 1185 (unknown) (no date) (unknown) [facility] (no value) (units unknown) (unknown) Result panel 1186 (unknown) (no date) (unknown) [facility] (no value) (units unknown) (unknown) Result panel 1187 (unknown) (no date) (unknown) [facility] (no value) (units unknown) (unknown) Result panel 1188 (unknown) (no date) (unknown) [facility] (no value) (units unknown) (unknown) Result panel 1189 (unknown) (no date) (unknown) [facility] (no value) (units unknown) (unknown) Result panel 1190 (unknown) (no date) (unknown) [facility] (no value) (units unknown) (unknown) Result panel 1191 (unknown) (no date) (unknown) [facility] (no value) (units unknown) (unknown) Result panel 1192 (unknown) (no date) (unknown) [facility] (no value) (units unknown) (unknown) Result panel 1193 (unknown) (no date) (unknown) [facility] (no value) (units unknown) (unknown) Result panel 1194 (unknown) (no date) (unknown) [facility] (no value) (units unknown) (unknown) Result panel 1195 (unknown) (no date) (unknown) [facility] (no value) (units unknown) (unknown) Result panel 1196 (unknown) (no date) (unknown) [facility] (no value) (units unknown) (unknown) Result panel 1197 (unknown) (no date) (unknown) [facility] (no value) (units unknown) (unknown) Result panel 1198 (unknown) (no date) (unknown) [facility] (no value) (units unknown) (unknown) Result panel 1199 (unknown) (no date) (unknown) [facility] (no value) (units unknown) (unknown) Result panel 1200 (unknown) (no date) (unknown) [facility] (no value) (units unknown) (unknown) Result panel 1201 (unknown) (no date) (unknown) [facility] (no value) (units unknown) (unknown) Result panel 1202 (unknown) (no date) (unknown) [facility] (no value) (units unknown) (unknown) Result panel 1203 (unknown) (no date) (unknown) [facility] (no value) (units unknown) (unknown) Result panel 1204 (unknown) (no date) (unknown) [facility] (no value) (units unknown) (unknown) Result panel 1205 (unknown) (no date) (unknown) [facility] (no value) (units unknown) (unknown) Result panel 1206 (unknown) (no date) (unknown) [facility] (no value) (units unknown) (unknown) Result panel 1207 (unknown) (no date) (unknown) [facility] (no value) (units unknown) (unknown) Result panel 1208 (unknown) (no date) (unknown) [facility] (no value) (units unknown) (unknown) Result panel 1209 (unknown) (no date) (unknown) [facility] (no value) (units unknown) (unknown) Result panel 1210 (unknown) (no date) (unknown) [facility] (no value) (units unknown) (unknown) Result panel 1211 (unknown) (no date) (unknown) [facility] (no value) (units unknown) (unknown) Result panel 1212 (unknown) (no date) (unknown) [facility] (no value) (units unknown) (unknown) Result panel 1213 (unknown) (no date) (unknown) [facility] (no value) (units unknown) (unknown) Result panel 1214 (unknown) (no date) (unknown) [facility] (no value) (units unknown) (unknown) Result panel 1215 (unknown) (no date) (unknown) [facility] (no value) (units unknown) (unknown) Result panel 1216 (unknown) (no date) (unknown) [facility] (no value) (units unknown) (unknown) Result panel 1217 (unknown) (no date) (unknown) [facility] (no value) (units unknown) (unknown) Result panel 1218 (unknown) (no date) (unknown) [facility] (no value) (units unknown) (unknown) Result panel 1219 (unknown) (no date) (unknown) [facility] (no value) (units unknown) (unknown) Result panel 1220 (unknown) (no date) (unknown) [facility] (no value) (units unknown) (unknown) Result panel 1221 (unknown) (no date) (unknown) [facility] (no value) (units unknown) (unknown) Result panel 1222 (unknown) (no date) (unknown) [facility] (no value) (units unknown) (unknown) Result panel 1223 (unknown) (no date) (unknown) [facility] (no value) (units unknown) (unknown) Result panel 1224 (unknown) (no date) (unknown) [facility] (no value) (units unknown) (unknown) Result panel 1225 (unknown) (no date) (unknown) [facility] (no value) (units unknown) (unknown) Result panel 1226 (unknown) (no date) (unknown) [facility] (no value) (units unknown) (unknown) Result panel 1227 (unknown) (no date) (unknown) [facility] (no value) (units unknown) (unknown) Result panel 1228 (unknown) (no date) (unknown) [facility] (no value) (units unknown) (unknown) Result panel 1229 (unknown) (no date) (unknown) [facility] (no value) (units unknown) (unknown) Result panel 1230 (unknown) (no date) (unknown) [facility] (no value) (units unknown) (unknown) Result panel 1231 (unknown) (no date) (unknown) [facility] (no value) (units unknown) (unknown) Result panel 1232 (unknown) (no date) (unknown) [facility] (no value) (units unknown) (unknown) Result panel 1233 (unknown) (no date) (unknown) [facility] (no value) (units unknown) (unknown) Result panel 1234 (unknown) (no date) (unknown) [facility] (no value) (units unknown) (unknown) Result panel 1235 (unknown) (no date) (unknown) [facility] (no value) (units unknown) (unknown) Result panel 1236 (unknown) (no date) (unknown) [facility] (no value) (units unknown) (unknown) Result panel 1237 (unknown) (no date) (unknown) [facility] (no value) (units unknown) (unknown) Result panel 1238 (unknown) (no date) (unknown) [facility] (no value) (units unknown) (unknown) Result panel 1239 (unknown) (no date) (unknown) [facility] (no value) (units unknown) (unknown) Result panel 1240 (unknown) (no date) (unknown) [facility] (no value) (units unknown) (unknown) Result panel 1241 (unknown) (no date) (unknown) [facility] (no value) (units unknown) (unknown) Result panel 1242 (unknown) (no date) (unknown) [facility] (no value) (units unknown) (unknown) Result panel 1243 (unknown) (no date) (unknown) [facility] (no value) (units unknown) (unknown) Result panel 1244 (unknown) (no date) (unknown) [facility] (no value) (units unknown) (unknown) Result panel 1245 (unknown) (no date) (unknown) [facility] (no value) (units unknown) (unknown) Result panel 1246 (unknown) (no date) (unknown) [facility] (no value) (units unknown) (unknown) Result panel 1247 (unknown) (no date) (unknown) [facility] (no value) (units unknown) (unknown) Result panel 1248 (unknown) (no date) (unknown) [facility] (no value) (units unknown) (unknown) Result panel 1249 (unknown) (no date) (unknown) [facility] (no value) (units unknown) (unknown) Result panel 1250 (unknown) (no date) (unknown) [facility] (no value) (units unknown) (unknown) Result panel 1251 (unknown) (no date) (unknown) [facility] (no value) (units unknown) (unknown) Result panel 1252 (unknown) (no date) (unknown) [facility] (no value) (units unknown) (unknown) Result panel 1253 (unknown) (no date) (unknown) [facility] (no value) (units unknown) (unknown) Result panel 1254 (unknown) (no date) (unknown) [facility] (no value) (units unknown) (unknown) Result panel 1255 (unknown) (no date) (unknown) [facility] (no value) (units unknown) (unknown) Result panel 1256 (unknown) (no date) (unknown) [facility] (no value) (units unknown) (unknown) Result panel 1257 (unknown) (no date) (unknown) [facility] (no value) (units unknown) (unknown) Result panel 1258 (unknown) (no date) (unknown) [facility] (no value) (units unknown) (unknown) Result panel 1259 (unknown) (no date) (unknown) [facility] (no value) (units unknown) (unknown) Result panel 1260 (unknown) (no date) (unknown) [facility] (no value) (units unknown) (unknown) Result panel 1261 (unknown) (no date) (unknown) [facility] (no value) (units unknown) (unknown) Result panel 1262 (unknown) (no date) (unknown) [facility] (no value) (units unknown) (unknown) Result panel 1263 (unknown) (no date) (unknown) [facility] (no value) (units unknown) (unknown) Result panel 1264 (unknown) (no date) (unknown) [facility] (no value) (units unknown) (unknown) Result panel 1265 (unknown) (no date) (unknown) [facility] (no value) (units unknown) (unknown) Result panel 1266 (unknown) (no date) (unknown) [facility] (no value) (units unknown) (unknown) Result panel 1267 (unknown) (no date) (unknown) [facility] (no value) (units unknown) (unknown) Result panel 1268 (unknown) (no date) (unknown) [facility] (no value) (units unknown) (unknown) Result panel 1269 (unknown) (no date) (unknown) [facility] (no value) (units unknown) (unknown) Result panel 1270 (unknown) (no date) (unknown) [facility] (no value) (units unknown) (unknown) Result panel 1271 (unknown) (no date) (unknown) [facility] (no value) (units unknown) (unknown) Result panel 1272 (unknown) (no date) (unknown) [facility] (no value) (units unknown) (unknown) Result panel 1273 (unknown) (no date) (unknown) [facility] (no value) (units unknown) (unknown) Result panel 1274 (unknown) (no date) (unknown) [facility] (no value) (units unknown) (unknown) Result panel 1275 (unknown) (no date) (unknown) [facility] (no value) (units unknown) (unknown) Result panel 1276 (unknown) (no date) (unknown) [facility] (no value) (units unknown) (unknown) Result panel 1277 (unknown) (no date) (unknown) [facility] (no value) (units unknown) (unknown) Result panel 1278 (unknown) (no date) (unknown) [facility] (no value) (units unknown) (unknown) Result panel 1279 (unknown) (no date) (unknown) [facility] (no value) (units unknown) (unknown) Result panel 1280 (unknown) (no date) (unknown) [facility] (no value) (units unknown) (unknown) Result panel 1281 (unknown) (no date) (unknown) [facility] (no value) (units unknown) (unknown) Result panel 1282 (unknown) (no date) (unknown) [facility] (no value) (units unknown) (unknown) Result panel 1283 (unknown) (no date) (unknown) [facility] (no value) (units unknown) (unknown) Result panel 1284 (unknown) (no date) (unknown) [facility] (no value) (units unknown) (unknown) Result panel 1285 (unknown) (no date) (unknown) [facility] (no value) (units unknown) (unknown) Result panel 1286 (unknown) (no date) (unknown) [facility] (no value) (units unknown) (unknown) Result panel 1287 (unknown) (no date) (unknown) [facility] (no value) (units unknown) (unknown) Result panel 1288 (unknown) (no date) (unknown) [facility] (no value) (units unknown) (unknown) Result panel 1289 (unknown) (no date) (unknown) [facility] (no value) (units unknown) (unknown) Result panel 1290 (unknown) (no date) (unknown) [facility] (no value) (units unknown) (unknown) Result panel 1291 (unknown) (no date) (unknown) [facility] (no value) (units unknown) (unknown) Result panel 1292 (unknown) (no date) (unknown) [facility] (no value) (units unknown) (unknown) Result panel 1293 (unknown) (no date) (unknown) [facility] (no value) (units unknown) (unknown) Result panel 1294 (unknown) (no date) (unknown) [facility] (no value) (units unknown) (unknown) Result panel 1295 (unknown) (no date) (unknown) [facility] (no value) (units unknown) (unknown) Result panel 1296 (unknown) (no date) (unknown) [facility] (no value) (units unknown) (unknown) Result panel 1297 (unknown) (no date) (unknown) [facility] (no value) (units unknown) (unknown) Result panel 1298 (unknown) (no date) (unknown) [facility] (no value) (units unknown) (unknown) Result panel 1299 (unknown) (no date) (unknown) [facility] (no value) (units unknown) (unknown) Result panel 1300 (unknown) (no date) (unknown) [facility] (no value) (units unknown) (unknown) Result panel 1301 (unknown) (no date) (unknown) [facility] (no value) (units unknown) (unknown) Result panel 1302 (unknown) (no date) (unknown) [facility] (no value) (units unknown) (unknown) Result panel 1303 (unknown) (no date) (unknown) [facility] (no value) (units unknown) (unknown) Result panel 1304 (unknown) (no date) (unknown) [facility] (no value) (units unknown) (unknown) Result panel 1305 (unknown) (no date) (unknown) [facility] (no value) (units unknown) (unknown) Result panel 1306 (unknown) (no date) (unknown) [facility] (no value) (units unknown) (unknown) Result panel 1307 (unknown) (no date) (unknown) [facility] (no value) (units unknown) (unknown) Result panel 1308 (unknown) (no date) (unknown) [facility] (no value) (units unknown) (unknown) Result panel 1309 (unknown) (no date) (unknown) [facility] (no value) (units unknown) (unknown) Result panel 1310 (unknown) (no date) (unknown) [facility] (no value) (units unknown) (unknown) Result panel 1311 (unknown) (no date) (unknown) [facility] (no value) (units unknown) (unknown) Result panel 1312 (unknown) (no date) (unknown) [facility] (no value) (units unknown) (unknown) Result panel 1313 (unknown) (no date) (unknown) [facility] (no value) (units unknown) (unknown) Result panel 1314 (unknown) (no date) (unknown) [facility] (no value) (units unknown) (unknown) Result panel 1315 (unknown) (no date) (unknown) [facility] (no value) (units unknown) (unknown) Result panel 1316 (unknown) (no date) (unknown) [facility] (no value) (units unknown) (unknown) Result panel 1317 (unknown) (no date) (unknown) [facility] (no value) (units unknown) (unknown) Result panel 1318 (unknown) (no date) (unknown) [facility] (no value) (units unknown) (unknown) Result panel 1319 (unknown) (no date) (unknown) [facility] (no value) (units unknown) (unknown) Result panel 1320 (unknown) (no date) (unknown) [facility] (no value) (units unknown) (unknown) Result panel 1321 (unknown) (no date) (unknown) [facility] (no value) (units unknown) (unknown) Result panel 1322 (unknown) (no date) (unknown) [facility] (no value) (units unknown) (unknown) Result panel 1323 (unknown) (no date) (unknown) [facility] (no value) (units unknown) (unknown) Result panel 1324 (unknown) (no date) (unknown) [facility] (no value) (units unknown) (unknown) Result panel 1325 (unknown) (no date) (unknown) [facility] (no value) (units unknown) (unknown) Result panel 1326 (unknown) (no date) (unknown) [facility] (no value) (units unknown) (unknown) Result panel 1327 (unknown) (no date) (unknown) [facility] (no value) (units unknown) (unknown) Result panel 1328 (unknown) (no date) (unknown) [facility] (no value) (units unknown) (unknown) Result panel 1329 (unknown) (no date) (unknown) [facility] (no value) (units unknown) (unknown) Result panel 1330 (unknown) (no date) (unknown) [facility] (no value) (units unknown) (unknown) Result panel 1331 (unknown) (no date) (unknown) [facility] (no value) (units unknown) (unknown) Result panel 1332 (unknown) (no date) (unknown) [facility] (no value) (units unknown) (unknown) Result panel 1333 (unknown) (no date) (unknown) [facility] (no value) (units unknown) (unknown) Result panel 1334 (unknown) (no date) (unknown) [facility] (no value) (units unknown) (unknown) Result panel 1335 (unknown) (no date) (unknown) [facility] (no value) (units unknown) (unknown) Result panel 1336 (unknown) (no date) (unknown) [facility] (no value) (units unknown) (unknown) Result panel 1337 (unknown) (no date) (unknown) [facility] (no value) (units unknown) (unknown) Result panel 1338 (unknown) (no date) (unknown) [facility] (no value) (units unknown) (unknown) Result panel 1339 (unknown) (no date) (unknown) [facility] (no value) (units unknown) (unknown) Result panel 1340 (unknown) (no date) (unknown) [facility] (no value) (units unknown) (unknown) Result panel 1341 (unknown) (no date) (unknown) [facility] (no value) (units unknown) (unknown) Result panel 1342 (unknown) (no date) (unknown) [facility] (no value) (units unknown) (unknown) Result panel 1343 (unknown) (no date) (unknown) [facility] (no value) (units unknown) (unknown) Result panel 1344 (unknown) (no date) (unknown) [facility] (no value) (units unknown) (unknown) Result panel 1345 (unknown) (no date) (unknown) [facility] (no value) (units unknown) (unknown) Result panel 1346 (unknown) (no date) (unknown) [facility] (no value) (units unknown) (unknown) Result panel 1347 (unknown) (no date) (unknown) [facility] (no value) (units unknown) (unknown) Result panel 1348 (unknown) (no date) (unknown) [facility] (no value) (units unknown) (unknown) Result panel 1349 (unknown) (no date) (unknown) [facility] (no value) (units unknown) (unknown) Result panel 1350 (unknown) (no date) (unknown) [facility] (no value) (units unknown) (unknown) Result panel 1351 (unknown) (no date) (unknown) [facility] (no value) (units unknown) (unknown) Result panel 1352 (unknown) (no date) (unknown) [facility] (no value) (units unknown) (unknown) Result panel 1353 (unknown) (no date) (unknown) [facility] (no value) (units unknown) (unknown) Result panel 1354 (unknown) (no date) (unknown) [facility] (no value) (units unknown) (unknown) Result panel 1355 (unknown) (no date) (unknown) [facility] (no value) (units unknown) (unknown) Result panel 1356 (unknown) (no date) (unknown) [facility] (no value) (units unknown) (unknown) Result panel 1357 (unknown) (no date) (unknown) [facility] (no value) (units unknown) (unknown) Result panel 1358 (unknown) (no date) (unknown) [facility] (no value) (units unknown) (unknown) Result panel 1359 (unknown) (no date) (unknown) [facility] (no value) (units unknown) (unknown) Result panel 1360 (unknown) (no date) (unknown) [facility] (no value) (units unknown) (unknown) Result panel 1361 (unknown) (no date) (unknown) [facility] (no value) (units unknown) (unknown) Result panel 1362 (unknown) (no date) (unknown) [facility] (no value) (units unknown) (unknown) Result panel 1363 (unknown) (no date) (unknown) [facility] (no value) (units unknown) (unknown) Result panel 1364 (unknown) (no date) (unknown) [facility] (no value) (units unknown) (unknown) Result panel 1365 (unknown) (no date) (unknown) [facility] (no value) (units unknown) (unknown) Result panel 1366 (unknown) (no date) (unknown) [facility] (no value) (units unknown) (unknown) Result panel 1367 (unknown) (no date) (unknown) [facility] (no value) (units unknown) (unknown) Result panel 1368 (unknown) (no date) (unknown) [facility] (no value) (units unknown) (unknown) Result panel 1369 (unknown) (no date) (unknown) [facility] (no value) (units unknown) (unknown) Result panel 1370 (unknown) (no date) (unknown) [facility] (no value) (units unknown) (unknown) Result panel 1371 (unknown) (no date) (unknown) [facility] (no value) (units unknown) (unknown) Result panel 1372 (unknown) (no date) (unknown) [facility] (no value) (units unknown) (unknown) Result panel 1373 (unknown) (no date) (unknown) [facility] (no value) (units unknown) (unknown) Result panel 1374 (unknown) (no date) (unknown) [facility] (no value) (units unknown) (unknown) Result panel 1375 (unknown) (no date) (unknown) [facility] (no value) (units unknown) (unknown) Result panel 1376 (unknown) (no date) (unknown) [facility] (no value) (units unknown) (unknown) Result panel 1377 (unknown) (no date) (unknown) [facility] (no value) (units unknown) (unknown) Result panel 1378 (unknown) (no date) (unknown) [facility] (no value) (units unknown) (unknown) Result panel 1379 (unknown) (no date) (unknown) [facility] (no value) (units unknown) (unknown) Result panel 1380 (unknown) (no date) (unknown) [facility] (no value) (units unknown) (unknown) Result panel 1381 (unknown) (no date) (unknown) [facility] (no value) (units unknown) (unknown) Result panel 1382 (unknown) (no date) (unknown) [facility] (no value) (units unknown) (unknown) Result panel 1383 (unknown) (no date) (unknown) [facility] (no value) (units unknown) (unknown) Result panel 1384 (unknown) (no date) (unknown) [facility] (no value) (units unknown) (unknown) Result panel 1385 (unknown) (no date) (unknown) [facility] (no value) (units unknown) (unknown) Result panel 1386 (unknown) (no date) (unknown) [facility] (no value) (units unknown) (unknown) Result panel 1387 (unknown) (no date) (unknown) [facility] (no value) (units unknown) (unknown) Result panel 1388 (unknown) (no date) (unknown) [facility] (no value) (units unknown) (unknown) Result panel 1389 (unknown) (no date) (unknown) [facility] (no value) (units unknown) (unknown) Result panel 1390 (unknown) (no date) (unknown) [facility] (no value) (units unknown) (unknown) Result panel 1391 (unknown) (no date) (unknown) [facility] (no value) (units unknown) (unknown) Result panel 1392 (unknown) (no date) (unknown) [facility] (no value) (units unknown) (unknown) Result panel 1393 (unknown) (no date) (unknown) [facility] (no value) (units unknown) (unknown) Result panel 1394 (unknown) (no date) (unknown) [facility] (no value) (units unknown) (unknown) Result panel 1395 (unknown) (no date) (unknown) [facility] (no value) (units unknown) (unknown) Result panel 1396 (unknown) (no date) (unknown) [facility] (no value) (units unknown) (unknown) Result panel 1397 (unknown) (no date) (unknown) [facility] (no value) (units unknown) (unknown) Result panel 1398 (unknown) (no date) (unknown) [facility] (no value) (units unknown) (unknown) Result panel 1399 (unknown) (no date) (unknown) [facility] (no value) (units unknown) (unknown) Result panel 1400 (unknown) (no date) (unknown) [facility] (no value) (units unknown) (unknown) Result panel 1401 (unknown) (no date) (unknown) [facility] (no value) (units unknown) (unknown) Result panel 1402 (unknown) (no date) (unknown) [facility] (no value) (units unknown) (unknown) Result panel 1403 (unknown) (no date) (unknown) [facility] (no value) (units unknown) (unknown) Result panel 1404 (unknown) (no date) (unknown) [facility] (no value) (units unknown) (unknown) Result panel 1405 (unknown) (no date) (unknown) [facility] (no value) (units unknown) (unknown) Result panel 1406 (unknown) (no date) (unknown) [facility] (no value) (units unknown) (unknown) Result panel 1407 (unknown) (no date) (unknown) [facility] (no value) (units unknown) (unknown) Result panel 1408 (unknown) (no date) (unknown) [facility] (no value) (units unknown) (unknown) Result panel 1409 (unknown) (no date) (unknown) [facility] (no value) (units unknown) (unknown) Result panel 1410 (unknown) (no date) (unknown) [facility] (no value) (units unknown) (unknown) Result panel 1411 (unknown) (no date) (unknown) [facility] (no value) (units unknown) (unknown) Result panel 1412 (unknown) (no date) (unknown) [facility] (no value) (units unknown) (unknown) Result panel 1413 (unknown) (no date) (unknown) [facility] (no value) (units unknown) (unknown) Result panel 1414 (unknown) (no date) (unknown) [facility] (no value) (units unknown) (unknown) Result panel 1415 (unknown) (no date) (unknown) [facility] (no value) (units unknown) (unknown) Result panel 1416 (unknown) (no date) (unknown) [facility] (no value) (units unknown) (unknown) Result panel 1417 (unknown) (no date) (unknown) [facility] (no value) (units unknown) (unknown) Result panel 1418 (unknown) (no date) (unknown) [facility] (no value) (units unknown) (unknown) Result panel 1419 (unknown) (no date) (unknown) [facility] (no value) (units unknown) (unknown) Result panel 1420 (unknown) (no date) (unknown) [facility] (no value) (units unknown) (unknown) Result panel 1421 (unknown) (no date) (unknown) [facility] (no value) (units unknown) (unknown) Result panel 1422 (unknown) (no date) (unknown) [facility] (no value) (units unknown) (unknown) Result panel 1423 (unknown) (no date) (unknown) [facility] (no value) (units unknown) (unknown) Result panel 1424 (unknown) (no date) (unknown) [facility] (no value) (units unknown) (unknown) Result panel 1425 (unknown) (no date) (unknown) [facility] (no value) (units unknown) (unknown) Result panel 1426 (unknown) (no date) (unknown) [facility] (no value) (units unknown) (unknown) Result panel 1427 (unknown) (no date) (unknown) [facility] (no value) (units unknown) (unknown) Result panel 1428 (unknown) (no date) (unknown) [facility] (no value) (units unknown) (unknown) Result panel 1429 (unknown) (no date) (unknown) [facility] (no value) (units unknown) (unknown) Result panel 1430 (unknown) (no date) (unknown) [facility] (no value) (units unknown) (unknown) Result panel 1431 (unknown) (no date) (unknown) [facility] (no value) (units unknown) (unknown) Result panel 1432 (unknown) (no date) (unknown) [facility] (no value) (units unknown) (unknown) Result panel 1433 (unknown) (no date) (unknown) [facility] (no value) (units unknown) (unknown) Result panel 1434 (unknown) (no date) (unknown) [facility] (no value) (units unknown) (unknown) Result panel 1435 (unknown) (no date) (unknown) [facility] (no value) (units unknown) (unknown) Result panel 1436 (unknown) (no date) (unknown) [facility] (no value) (units unknown) (unknown) Result panel 1437 (unknown) (no date) (unknown) [facility] (no value) (units unknown) (unknown) Result panel 1438 (unknown) (no date) (unknown) [facility] (no value) (units unknown) (unknown) Result panel 1439 (unknown) (no date) (unknown) [facility] (no value) (units unknown) (unknown) Result panel 1440 (unknown) (no date) (unknown) [facility] (no value) (units unknown) (unknown) Result panel 1441 (unknown) (no date) (unknown) [facility] (no value) (units unknown) (unknown) Result panel 1442 (unknown) (no date) (unknown) [facility] (no value) (units unknown) (unknown) Result panel 1443 (unknown) (no date) (unknown) [facility] (no value) (units unknown) (unknown) Result panel 1444 (unknown) (no date) (unknown) [facility] (no value) (units unknown) (unknown) Result panel 1445 (unknown) (no date) (unknown) [facility] (no value) (units unknown) (unknown) Result panel 1446 (unknown) (no date) (unknown) [facility] (no value) (units unknown) (unknown) Result panel 1447 (unknown) (no date) (unknown) [facility] (no value) (units unknown) (unknown) Result panel 1448 (unknown) (no date) (unknown) [facility] (no value) (units unknown) (unknown) Result panel 1449 (unknown) (no date) (unknown) [facility] (no value) (units unknown) (unknown) Result panel 1450 (unknown) (no date) (unknown) [facility] (no value) (units unknown) (unknown) Result panel 1451 (unknown) (no date) (unknown) [facility] (no value) (units unknown) (unknown) Result panel 1452 (unknown) (no date) (unknown) [facility] (no value) (units unknown) (unknown) Result panel 1453 (unknown) (no date) (unknown) [facility] (no value) (units unknown) (unknown) Result panel 1454 (unknown) (no date) (unknown) [facility] (no value) (units unknown) (unknown) Result panel 1455 (unknown) (no date) (unknown) [facility] (no value) (units unknown) (unknown) Result panel 1456 (unknown) (no date) (unknown) [facility] (no value) (units unknown) (unknown) Result panel 1457 (unknown) (no date) (unknown) [facility] (no value) (units unknown) (unknown) Result panel 1458 (unknown) (no date) (unknown) [facility] (no value) (units unknown) (unknown) Result panel 1459 (unknown) (no date) (unknown) [facility] (no value) (units unknown) (unknown) Result panel 1460 (unknown) (no date) (unknown) [facility] (no value) (units unknown) (unknown) Result panel 1461 (unknown) (no date) (unknown) [facility] (no value) (units unknown) (unknown) Result panel 1462 (unknown) (no date) (unknown) [facility] (no value) (units unknown) (unknown) Result panel 1463 (unknown) (no date) (unknown) [facility] (no value) (units unknown) (unknown) Result panel 1464 (unknown) (no date) (unknown) [facility] (no value) (units unknown) (unknown) Result panel 1465 (unknown) (no date) (unknown) [facility] (no value) (units unknown) (unknown) Result panel 1466 (unknown) (no date) (unknown) [facility] (no value) (units unknown) (unknown) Result panel 1467 (unknown) (no date) (unknown) [facility] (no value) (units unknown) (unknown) Result panel 1468 (unknown) (no date) (unknown) [facility] (no value) (units unknown) (unknown) Result panel 1469 (unknown) (no date) (unknown) [facility] (no value) (units unknown) (unknown) Result panel 1470 (unknown) (no date) (unknown) [facility] (no value) (units unknown) (unknown) Result panel 1471 (unknown) (no date) (unknown) [facility] (no value) (units unknown) (unknown) Result panel 1472 (unknown) (no date) (unknown) [facility] (no value) (units unknown) (unknown) Result panel 1473 (unknown) (no date) (unknown) [facility] (no value) (units unknown) (unknown) Result panel 1474 (unknown) (no date) (unknown) [facility] (no value) (units unknown) (unknown) Result panel 1475 (unknown) (no date) (unknown) [facility] (no value) (units unknown) (unknown) Result panel 1476 (unknown) (no date) (unknown) [facility] (no value) (units unknown) (unknown) Result panel 1477 (unknown) (no date) (unknown) [facility] (no value) (units unknown) (unknown) Result panel 1478 (unknown) (no date) (unknown) [facility] (no value) (units unknown) (unknown) Result panel 1479 (unknown) (no date) (unknown) [facility] (no value) (units unknown) (unknown) Result panel 1480 (unknown) (no date) (unknown) [facility] (no value) (units unknown) (unknown) Result panel 1481 (unknown) (no date) (unknown) [facility] (no value) (units unknown) (unknown) Result panel 1482 (unknown) (no date) (unknown) [facility] (no value) (units unknown) (unknown) Result panel 1483 (unknown) (no date) (unknown) [facility] (no value) (units unknown) (unknown) Result panel 1484 (unknown) (no date) (unknown) [facility] (no value) (units unknown) (unknown) Result panel 1485 (unknown) (no date) (unknown) [facility] (no value) (units unknown) (unknown) Result panel 1486 (unknown) (no date) (unknown) [facility] (no value) (units unknown) (unknown) Result panel 1487 (unknown) (no date) (unknown) [facility] (no value) (units unknown) (unknown) Result panel 1488 (unknown) (no date) (unknown) [facility] (no value) (units unknown) (unknown) Result panel 1489 (unknown) (no date) (unknown) [facility] (no value) (units unknown) (unknown) Result panel 1490 (unknown) (no date) (unknown) [facility] (no value) (units unknown) (unknown) Result panel 1491 (unknown) (no date) (unknown) [facility] (no value) (units unknown) (unknown) Result panel 1492 (unknown) (no date) (unknown) [facility] (no value) (units unknown) (unknown) Result panel 1493 (unknown) (no date) (unknown) [facility] (no value) (units unknown) (unknown) Result panel 1494 (unknown) (no date) (unknown) [facility] (no value) (units unknown) (unknown) Result panel 1495 (unknown) (no date) (unknown) [facility] (no value) (units unknown) (unknown) Result panel 1496 (unknown) (no date) (unknown) [facility] (no value) (units unknown) (unknown) Result panel 1497 (unknown) (no date) (unknown) [facility] (no value) (units unknown) (unknown) Result panel 1498 (unknown) (no date) (unknown) [facility] (no value) (units unknown) (unknown) Result panel 1499 (unknown) (no date) (unknown) [facility] (no value) (units unknown) (unknown) Result panel 1500 (unknown) (no date) (unknown) [facility] (no value) (units unknown) (unknown) Result panel 1501 (unknown) (no date) (unknown) [facility] (no value) (units unknown) (unknown) Result panel 1502 (unknown) (no date) (unknown) [facility] (no value) (units unknown) (unknown) Result panel 1503 (unknown) (no date) (unknown) [facility] (no value) (units unknown) (unknown) Result panel 1504 (unknown) (no date) (unknown) [facility] (no value) (units unknown) (unknown) Result panel 1505 (unknown) (no date) (unknown) [facility] (no value) (units unknown) (unknown) Result panel 1506 (unknown) (no date) (unknown) [facility] (no value) (units unknown) (unknown) Result panel 1507 (unknown) (no date) (unknown) [facility] (no value) (units unknown) (unknown) Result panel 1508 (unknown) (no date) (unknown) [facility] (no value) (units unknown) (unknown) Result panel 1509 (unknown) (no date) (unknown) [facility] (no value) (units unknown) (unknown) Result panel 1510 (unknown) (no date) (unknown) [facility] (no value) (units unknown) (unknown) Result panel 1511 (unknown) (no date) (unknown) [facility] (no value) (units unknown) (unknown) Result panel 1512 (unknown) (no date) (unknown) [facility] (no value) (units unknown) (unknown) Result panel 1513 (unknown) (no date) (unknown) [facility] (no value) (units unknown) (unknown) Result panel 1514 (unknown) (no date) (unknown) [facility] (no value) (units unknown) (unknown) Result panel 1515 (unknown) (no date) (unknown) [facility] (no value) (units unknown) (unknown) Result panel 1516 (unknown) (no date) (unknown) [facility] (no value) (units unknown) (unknown) Result panel 1517 (unknown) (no date) (unknown) [facility] (no value) (units unknown) (unknown) Result panel 1518 (unknown) (no date) (unknown) [facility] (no value) (units unknown) (unknown) Result panel 1519 (unknown) (no date) (unknown) [facility] (no value) (units unknown) (unknown) Result panel 1520 (unknown) (no date) (unknown) [facility] (no value) (units unknown) (unknown) Result panel 1521 (unknown) (no date) (unknown) [facility] (no value) (units unknown) (unknown) Result panel 1522 (unknown) (no date) (unknown) [facility] (no value) (units unknown) (unknown) Result panel 1523 (unknown) (no date) (unknown) [facility] (no value) (units unknown) (unknown) Result panel 1524 (unknown) (no date) (unknown) [facility] (no value) (units unknown) (unknown) Result panel 1525 (unknown) (no date) (unknown) [facility] (no value) (units unknown) (unknown) Result panel 1526 (unknown) (no date) (unknown) [facility] (no value) (units unknown) (unknown) Result panel 1527 (unknown) (no date) (unknown) [facility] (no value) (units unknown) (unknown) Result panel 1528 (unknown) (no date) (unknown) [facility] (no value) (units unknown) (unknown) Result panel 1529 (unknown) (no date) (unknown) [facility] (no value) (units unknown) (unknown) Result panel 1530 (unknown) (no date) (unknown) [facility] (no value) (units unknown) (unknown) Result panel 1531 (unknown) (no date) (unknown) [facility] (no value) (units unknown) (unknown) Result panel 1532 (unknown) (no date) (unknown) [facility] (no value) (units unknown) (unknown) Result panel 1533 (unknown) (no date) (unknown) [facility] (no value) (units unknown) (unknown) Result panel 1534 (unknown) (no date) (unknown) [facility] (no value) (units unknown) (unknown) Result panel 1535 (unknown) (no date) (unknown) [facility] (no value) (units unknown) (unknown) Result panel 1536 (unknown) (no date) (unknown) [facility] (no value) (units unknown) (unknown) Result panel 1537 (unknown) (no date) (unknown) [facility] (no value) (units unknown) (unknown) Result panel 1538 (unknown) (no date) (unknown) [facility] (no value) (units unknown) (unknown) Result panel 1539 (unknown) (no date) (unknown) [facility] (no value) (units unknown) (unknown) Result panel 1540 (unknown) (no date) (unknown) [facility] (no value) (units unknown) (unknown) Result panel 1541 (unknown) (no date) (unknown) [facility] (no value) (units unknown) (unknown) Result panel 1542 (unknown) (no date) (unknown) [facility] (no value) (units unknown) (unknown) Result panel 1543 (unknown) (no date) (unknown) [facility] (no value) (units unknown) (unknown) Result panel 1544 (unknown) (no date) (unknown) [facility] (no value) (units unknown) (unknown) Result panel 1545 (unknown) (no date) (unknown) [facility] (no value) (units unknown) (unknown) Result panel 1546 (unknown) (no date) (unknown) [facility] (no value) (units unknown) (unknown) Result panel 1547 (unknown) (no date) (unknown) [facility] (no value) (units unknown) (unknown) Result panel 1548 (unknown) (no date) (unknown) [facility] (no value) (units unknown) (unknown) Result panel 1549 (unknown) (no date) (unknown) [facility] (no value) (units unknown) (unknown) Result panel 1550 (unknown) (no date) (unknown) [facility] (no value) (units unknown) (unknown) Result panel 1551 (unknown) (no date) (unknown) [facility] (no value) (units unknown) (unknown) Result panel 1552 (unknown) (no date) (unknown) [facility] (no value) (units unknown) (unknown) Result panel 1553 (unknown) (no date) (unknown) [facility] (no value) (units unknown) (unknown) Result panel 1554 (unknown) (no date) (unknown) [facility] (no value) (units unknown) (unknown) Result panel 1555 (unknown) (no date) (unknown) [facility] (no value) (units unknown) (unknown) Result panel 1556 (unknown) (no date) (unknown) [facility] (no value) (units unknown) (unknown) Result panel 1557 (unknown) (no date) (unknown) [facility] (no value) (units unknown) (unknown) Result panel 1558 (unknown) (no date) (unknown) [facility] (no value) (units unknown) (unknown) Result panel 1559 (unknown) (no date) (unknown) [facility] (no value) (units unknown) (unknown) Result panel 1560 (unknown) (no date) (unknown) [facility] (no value) (units unknown) (unknown) Result panel 1561 (unknown) (no date) (unknown) [facility] (no value) (units unknown) (unknown) Result panel 1562 (unknown) (no date) (unknown) [facility] (no value) (units unknown) (unknown) Result panel 1563 (unknown) (no date) (unknown) [facility] (no value) (units unknown) (unknown) Result panel 1564 (unknown) (no date) (unknown) [facility] (no value) (units unknown) (unknown) Result panel 1565 (unknown) (no date) (unknown) [facility] (no value) (units unknown) (unknown) Result panel 1566 (unknown) (no date) (unknown) [facility] (no value) (units unknown) (unknown) Result panel 1567 (unknown) (no date) (unknown) [facility] (no value) (units unknown) (unknown) Result panel 1568 (unknown) (no date) (unknown) [facility] (no value) (units unknown) (unknown) Result panel 1569 (unknown) (no date) (unknown) [facility] (no value) (units unknown) (unknown) Result panel 1570 (unknown) (no date) (unknown) [facility] (no value) (units unknown) (unknown) Result panel 1571 (unknown) (no date) (unknown) [facility] (no value) (units unknown) (unknown) Result panel 1572 (unknown) (no date) (unknown) [facility] (no value) (units unknown) (unknown) Result panel 1573 (unknown) (no date) (unknown) (unknown) 0 /ul (unknown) (unknown) (no date) (unknown) (unknown) 0 /ul (unknown) (unknown) (no date) (unknown) (unknown) 0.0 % (unknown) (unknown) (no date) (unknown) (unknown) 0.1 % (unknown) (unknown) (no date) (unknown) (unknown) 1.8 % (unknown) (unknown) (no date) (unknown) (unknown) 1000 /ul (unknown) (unknown) (no date) (unknown) (unknown) 12.4 g/dl (unknown) (unknown) (no date) (unknown) (unknown) 15.7 % (unknown) (unknown) (no date) (unknown) (unknown) 78505 /ul (unknown) (unknown) (no date) (unknown) (unknown) 20.0 x10 3/ul (unknown) (unknown) (no date) (unknown) (unknown) 25.6 pg (unknown) (unknown) (no date) (unknown) (unknown) 327 x10 3/ul (unknown) (unknown) (no date) (unknown) (unknown) 33.1 % (unknown) (unknown) (no date) (unknown) (unknown) 37.5 % (unknown) (unknown) (no date) (unknown) (unknown) 4.85 x10 6/ul (unknown) (unknown) (no date) (unknown) (unknown) 400 /ul (unknown) (unknown) (no date) (unknown) (unknown) 5.1 % (unknown) (unknown) (no date) (unknown) (unknown) 77.3 fl (unknown) (unknown) (no date) (unknown) (unknown) 93.0 % (unknown) Result panel 1574 (unknown) (no date) (unknown) (unknown) > 60 ml/min (unknown) (unknown) (no date) (unknown) (unknown) > 60 ml/min (unknown) (unknown) (no date) (unknown) (unknown) 0.62 mg/dl (unknown) (unknown) (no date) (unknown) (unknown) 0.7 mg/dl (unknown) (unknown) (no date) (unknown) (unknown) 1.3 (units unknown) (unknown) (unknown) (no date) (unknown) (unknown) 1.4 (units unknown) (unknown) (unknown) (no date) (unknown) (unknown) 106 mmol/l (unknown) (unknown) (no date) (unknown) (unknown) 130 u/l (unknown) (unknown) (no date) (unknown) (unknown) 14.5 seconds (unknown) (unknown) (no date) (unknown) (unknown) 142 mmol/l (unknown) (unknown) (no date) (unknown) (unknown) 16 u/l (unknown) (unknown) (no date) (unknown) (unknown) 19 iu/l (unknown) (unknown) (no date) (unknown) (unknown) 21 mg/dl (unknown) (unknown) (no date) (unknown) (unknown) 21 mmol/l (unknown) (unknown) (no date) (unknown) (unknown) 221 mg/dl (unknown) (unknown) (no date) (unknown) (unknown) 221 mg/dl (unknown) (unknown) (no date) (unknown) (unknown) 27 iu/l (unknown) (unknown) (no date) (unknown) (unknown) 29 seconds (unknown) (unknown) (no date) (unknown) (unknown) 29 seconds (unknown) (unknown) (no date) (unknown) (unknown) 3.7 g/dl (unknown) (unknown) (no date) (unknown) (unknown) 33.9 (units unknown) (unknown) (unknown) (no date) (unknown) (unknown) 4.1 mmol/l (unknown) (unknown) (no date) (unknown) (unknown) 5.2 g/dl (unknown) (unknown) (no date) (unknown) (unknown) 8.9 g/dl (unknown) (unknown) (no date) (unknown) (unknown) 9.4 mg/dl (unknown) Result panel 1575 (unknown) (no date) (unknown) (unknown) 1.46 mmol/l (unknown) (unknown) (no date) (unknown) (unknown) 1.46 mmol/l (unknown) Result panel 1576 (unknown) (no date) (unknown) (unknown) > 60 ml/min (unknown) (unknown) (no date) (unknown) (unknown) > 60 ml/min (unknown) (unknown) (no date) (unknown) (unknown) 0.34 ng/ml (unknown) (unknown) (no date) (unknown) (unknown) 0.34 ng/ml (unknown) (unknown) (no date) (unknown) (unknown) 0.62 mg/dl (unknown) (unknown) (no date) (unknown) (unknown) 0.7 mg/dl (unknown) (unknown) (no date) (unknown) (unknown) 1.4 (units unknown) (unknown) (unknown) (no date) (unknown) (unknown) 106 mmol/l (unknown) (unknown) (no date) (unknown) (unknown) 130 u/l (unknown) (unknown) (no date) (unknown) (unknown) 142 mmol/l (unknown) (unknown) (no date) (unknown) (unknown) 16 u/l (unknown) (unknown) (no date) (unknown) (unknown) 19 iu/l (unknown) (unknown) (no date) (unknown) (unknown) 21 mg/dl (unknown) (unknown) (no date) (unknown) (unknown) 21 mmol/l (unknown) (unknown) (no date) (unknown) (unknown) 221 mg/dl (unknown) (unknown) (no date) (unknown) (unknown) 221 mg/dl (unknown) (unknown) (no date) (unknown) (unknown) 27 iu/l (unknown) (unknown) (no date) (unknown) (unknown) 3.7 g/dl (unknown) (unknown) (no date) (unknown) (unknown) 33.9 (units unknown) (unknown) (unknown) (no date) (unknown) (unknown) 4.1 mmol/l (unknown) (unknown) (no date) (unknown) (unknown) 5.2 g/dl (unknown) (unknown) (no date) (unknown) (unknown) 8.9 g/dl (unknown) (unknown) (no date) (unknown) (unknown) 9.4 mg/dl (unknown) Result panel 1577 (unknown) (no date) (unknown) (unknown) -3.0 mmol/l (unknown) (unknown) (no date) (unknown) (unknown) 21 (units unknown) (unknown) (unknown) (no date) (unknown) (unknown) 22 mmol/l (unknown) (unknown) (no date) (unknown) (unknown) 23 mmol/l (unknown) (unknown) (no date) (unknown) (unknown) 36.2 mmhg (unknown) (unknown) (no date) (unknown) (unknown) 56 mmhg (unknown) (unknown) (no date) (unknown) (unknown) 7.38 (units unknown) (unknown) (unknown) (no date) (unknown) (unknown) 7.38 (units unknown) (unknown) (unknown) (no date) (unknown) (unknown) 88 % (unknown) Result panel 1578 (unknown) (no date) (unknown) (unknown) 2.8 mmol/l (unknown) Result panel 1579 (unknown) (no date) (unknown) (unknown) (no value) (units unknown) (unknown) (unknown) (no date) (unknown) (unknown) #60 tabs (units unknown) (unknown) (unknown) (no date) (unknown) (unknown) #: [id number] (units unknown) (unknown) (unknown) (no date) (unknown) (unknown) (DME) insulin syringes (disposable) 1 mL syringe (units unknown) (unknown) (unknown) (no date) (unknown) (unknown) 08/10/22 08/10/22 08/10/22 Range/Units (units unknown) (unknown) (unknown) (no date) (unknown) (unknown) 08/10/22 14:40 (units unknown) (unknown) (unknown) (no date) (unknown) (unknown) 08/10/22 14:50 (units unknown) (unknown) (unknown) (no date) (unknown) (unknown) 08/10/22 15:40 (units unknown) (unknown) (unknown) (no date) (unknown) (unknown) 08/10/22 15:45 (units unknown) (unknown) (unknown) (no date) (unknown) (unknown) 08/10/22 16:38 (units unknown) (unknown) (unknown) (no date) (unknown) (unknown) 08/10/22 16:47 (units unknown) (unknown) (unknown) (no date) (unknown) (unknown) 08/10/22 (units unknown) (unknown) (unknown) (no date) (unknown) (unknown) 1 sliding scale dose SUBCUT USEASDIRECTD Qty: 10 3RF (units unknown) (unknown) (unknown) (no date) (unknown) (unknown) 14:28 08/10/22 (units unknown) (unknown) (unknown) (no date) (unknown) (unknown) 14:50 14:50 14:50 (units unknown) (unknown) (unknown) (no date) (unknown) (unknown) 14:50 14:50 15:45 (units unknown) (unknown) (unknown) (no date) (unknown) (unknown) 16:04 08/10/22 (units unknown) (unknown) (unknown) (no date) (unknown) (unknown) 16:14 (units unknown) (unknown) (unknown) (no date) (unknown) (unknown) 2 hrs; max = 3 tabs/24 hr PO (units unknown) (unknown) (unknown) (no date) (unknown) (unknown) 25 mg PA Q4-6H PRN (Reason: Nausea And Vomiting) (units unknown) (unknown) (unknown) (no date) (unknown) (unknown) 40 mg PO BID Qty: 30 0RF (units unknown) (unknown) (unknown) (no date) (unknown) (unknown) ALT (<35) IU/L (units unknown) (unknown) (unknown) (no date) (unknown) (unknown) ALT 19 (<35) IU/L (units unknown) (unknown) (unknown) (no date) (unknown) (unknown) APTT (26-36) SECONDS (units unknown) (unknown) (unknown) (no date) (unknown) (unknown) APTT 29 (26-36) SECONDS (units unknown) (unknown) (unknown) (no date) (unknown) (unknown) AST (14-36) IU/L (units unknown) (unknown) (unknown) (no date) (unknown) (unknown) AST 27 (14-36) IU/L (units unknown) (unknown) (unknown) (no date) (unknown) (unknown) Age/Sex: 27 / F (units unknown) (unknown) (unknown) (no date) (unknown) (unknown) Albumin (3.5-5.0) g/dL (units unknown) (unknown) (unknown) (no date) (unknown) (unknown) Albumin 5.2 H (3.5-5.0) g/dL (units unknown) (unknown) (unknown) (no date) (unknown) (unknown) Albumin/Globulin Ratio (1.0-2.8) (units unknown) (unknown) (unknown) (no date) (unknown) (unknown) Albumin/Globulin Ratio 1.4 (1.0-2.8) (units unknown) (unknown) (unknown) (no date) (unknown) (unknown) Alkaline Phosphatase (38-126) U/L (units unknown) (unknown) (unknown) (no date) (unknown) (unknown) Alkaline Phosphatase 130 H (38-126) U/L (units unknown) (unknown) (unknown) (no date) (unknown) (unknown) Allergies (units unknown) (unknown) (unknown) (no date) (unknown) (unknown) Allergy/AdvReac Type Severity Reaction Status Date / Time (units unknown) (unknown) (unknown) (no date) (unknown) (unknown) Anemia (units unknown) (unknown) (unknown) (no date) (unknown) (unknown) As directed for use with insulin injections (units unknown) (unknown) (unknown) (no date) (unknown) (unknown) BUN (7-17) mg/dL (units unknown) (unknown) (unknown) (no date) (unknown) (unknown) BUN 21 H (7-17) mg/dL (units unknown) (unknown) (unknown) (no date) (unknown) (unknown) BUN/Creatinine Ratio (6-22) (units unknown) (unknown) (unknown) (no date) (unknown) (unknown) BUN/Creatinine Ratio 33.9 H (6-22) (units unknown) (unknown) (unknown) (no date) (unknown) (unknown) Baso # (Auto) (0-100 ) /uL (units unknown) (unknown) (unknown) (no date) (unknown) (unknown) Baso # (Auto) 0 (0-100) /uL (units unknown) (unknown) (unknown) (no date) (unknown) (unknown) Baso % (Auto) (0-2) % (units unknown) (unknown) (unknown) (no date) (unknown) (unknown) Baso % (Auto) 0.1 (0-2) % (units unknown) (unknown) (unknown) (no date) (unknown) (unknown) Blood Culture Stat (units unknown) (unknown) (unknown) (no date) (unknown) (unknown) Blood Pressure 128/7 8 08/10/22 14:28 (units unknown) (unknown) (unknown) (no date) (unknown) (unknown) Blood Pressure 128/7 8 113/58 L (units unknown) (unknown) (unknown) (no date) (unknown) (unknown) Blood Pressure (units unknown) (unknown) (unknown) (no date) (unknown) (unknown) COVID19 -Nasal RAPID Stat (units unknown) (unknown) (unknown) (no date) (unknown) (unknown) Calcium (8.4-10.2) mg/dL (units unknown) (unknown) (unknown) (no date) (unknown) (unknown) Calcium 9.4 (8.4-10.2) mg/dL (units unknown) (unknown) (unknown) (no date) (unknown) (unknown) Carbon Dioxide (22-32) mmol/L (units unknown) (unknown) (unknown) (no date) (unknown) (unknown) Carbon Dioxide 21 L (22-32) mmol/L (units unknown) (unknown) (unknown) (no date) (unknown) (unknown) Chief Complaint: (units unknown) (unknown) (unknown) (no date) (unknown) (unknown) Chief complaint: Nausea/Vomiting/Diarr hea (units unknown) (unknown) (unknown) (no date) (unknown) (unknown) Chloride (98-107) mmol/L (units unknown) (unknown) (unknown) (no date) (unknown) (unknown) Chloride 106 (98-107 ) mmol/L (units unknown) (unknown) (unknown) (no date) (unknown) (unknown) Complete Blood Count AUTO DIFF Stat (units unknown) (unknown) (unknown) (no date) (unknown) (unknown) Comprehensive Metabolic Panel Stat (units unknown) (unknown) (unknown) (no date) (unknown) (unknown) Course of care: (units unknown) (unknown) (unknown) (no date) (unknown) (unknown) Course (units unknown) (unknown) (unknown) (no date) (unknown) (unknown) Creatinine (0.52-1.04) mg/dL (units unknown) (unknown) (unknown) (no date) (unknown) (unknown) Creatinine 0.62 (0.52-1.04) mg/dL (units unknown) (unknown) (unknown) (no date) (unknown) (unknown) Cyclic vomiting syndrome (units unknown) (unknown) (unknown) (no date) (unknown) (unknown) DKA (diabetic ketoacidoses) (units unknown) (unknown) (unknown) (no date) (unknown) (unknown) : 1995 Acct:[id number] (units unknown) (unknown) (unknown) (no date) (unknown) (unknown) Date of Service: 08/10/22 (units unknown) (unknown) (unknown) (no date) (unknown) (unknown) Departure (units unknown) (unknown) (unknown) (no date) (unknown) (unknown) Diabetes mellitus, type I (units unknown) (unknown) (unknown) (no date) (unknown) (unknown) Discharge Plan (units unknown) (unknown) (unknown) (no date) (unknown) (unknown) Discontinued Medications (units unknown) (unknown) (unknown) (no date) (unknown) (unknown) Documented By: RL (units unknown) (unknown) (unknown) (no date) (unknown) (unknown) Dose Instruction: (units unknown) (unknown) (unknown) (no date) (unknown) (unknown) ED Orders (units unknown) (unknown) (unknown) (no date) (unknown) (unknown) EKG-12 Lead Stat (units unknown) (unknown) (unknown) (no date) (unknown) (unknown) ER Physician: Karol Ramos (units unknown) (unknown) (unknown) (no date) (unknown) (unknown) Emergency Report (units unknown) (unknown) (unknown) (no date) (unknown) (unknown) Eos # (Auto) (0-450) /uL (units unknown) (unknown) (unknown) (no date) (unknown) (unknown) Eos # (Auto) 0 (0-450) /uL (units unknown) (unknown) (unknown) (no date) (unknown) (unknown) Eos % (Auto) (2-4) % (units unknown) (unknown) (unknown) (no date) (unknown) (unknown) Eos % (Auto) 0.0 L (2-4) % (units unknown) (unknown) (unknown) (no date) (unknown) (unknown) Estimated GFR > 60 (>60) mL/min (units unknown) (unknown) (unknown) (no date) (unknown) (unknown) Estimated GFR (>60) mL/min (units unknown) (unknown) (unknown) (no date) (unknown) (unknown) Exam (units unknown) (unknown) (unknown) (no date) (unknown) (unknown) Family History (units unknown) (unknown) (unknown) (no date) (unknown) (unknown) Father Healthy adult (units unknown) (unknown) (unknown) (no date) (unknown) (unknown) FiO2 21 (units unknown) (unknown) (unknown) (no date) (unknown) (unknown) FiO2 (units unknown) (unknown) (unknown) (no date) (unknown) (unknown) Gastroparesis (units unknown) (unknown) (unknown) (no date) (unknown) (unknown) General (units unknown) (unknown) (unknown) (no date) (unknown) (unknown) Globulin (1.7-4.1) g/dL (units unknown) (unknown) (unknown) (no date) (unknown) (unknown) Globulin 3.7 (1.7-4.1) g/dL (units unknown) (unknown) (unknown) (no date) (unknown) (unknown) Glucose (70-100) mg/dL (units unknown) (unknown) (unknown) (no date) (unknown) (unknown) Glucose 221 H (70-100) mg/dL (units unknown) (unknown) (unknown) (no date) (unknown) (unknown) Glucose POC 350 (units unknown) (unknown) (unknown) (no date) (unknown) (unknown) HPI - Nausea/Vomiting/Diarr hea (units unknown) (unknown) (unknown) (no date) (unknown) (unknown) HPI Narrative: (units unknown) (unknown) (unknown) (no date) (unknown) (unknown) Hct (36-46) % (units unknown) (unknown) (unknown) (no date) (unknown) (unknown) Hct 37.5 (36-46) % (units unknown) (unknown) (unknown) (no date) (unknown) (unknown) Hgb (12.0-16.0) g/dL (units unknown) (unknown) (unknown) (no date) (unknown) (unknown) Hgb 12.4 (12.0-16.0) g/dL (units unknown) (unknown) (unknown) (no date) (unknown) (unknown) History of Present Illness (units unknown) (unknown) (unknown) (no date) (unknown) (unknown) Home Medications (units unknown) (unknown) (unknown) (no date) (unknown) (unknown) Delonte Trevino MD [Primary Care Provider] (units unknown) (unknown) (unknown) (no date) (unknown) (unknown) Hydromorphone HCl (Hydromorphone 0.5 Mg Inj) 0.5 mg IV NOW ONE (units unknown) (unknown) (unknown) (no date) (unknown) (unknown) I have independently reviewed the patient's vital signs and nursing notes as (units unknown) (unknown) (unknown) (no date) (unknown) (unknown) INR (0.9-1.3) (units unknown) (unknown) (unknown) (no date) (unknown) (unknown) INR 1.3 (0.9-1.3) (units unknown) (unknown) (unknown) (no date) (unknown) (unknown) Independent historian: (units unknown) (unknown) (unknown) (no date) (unknown) (unknown) Initial Vital Signs (units unknown) (unknown) (unknown) (no date) (unknown) (unknown) Initial Vital Signs: (units unknown) (unknown) (unknown) (no date) (unknown) (unknown) Insulin dependent diabetes mellitus (units unknown) (unknown) (unknown) (no date) (unknown) (unknown) [address] [address] (units unknown) (unknown) (unknown) (no date) (unknown) (unknown) Ketones (<0.27) mmol/L (units unknown) (unknown) (unknown) (no date) (unknown) (unknown) Ketones (Beta-Hydroxybutyrate ) Stat (units unknown) (unknown) (unknown) (no date) (unknown) (unknown) Ketones 1.46 H (<0.27) mmol/L (units unknown) (unknown) (unknown) (no date) (unknown) (unknown) Lab Data (units unknown) (unknown) (unknown) (no date) (unknown) (unknown) Lab Results (units unknown) (unknown) (unknown) (no date) (unknown) (unknown) Labs: (units unknown) (unknown) (unknown) (no date) (unknown) (unknown) Lactate (0.7-2.1) mmol/L (units unknown) (unknown) (unknown) (no date) (unknown) (unknown) Lactate (Lactic Acid ) Stat (units unknown) (unknown) (unknown) (no date) (unknown) (unknown) Lactate 2.8 H (0.7-2.1) mmol/L (units unknown) (unknown) (unknown) (no date) (unknown) (unknown) Last Admin: 08/10/22 15:07 Dose: 1,000 mls/hr (units unknown) (unknown) (unknown) (no date) (unknown) (unknown) Last Admin: 08/10/22 15:09 Dose: 4 mg (units unknown) (unknown) (unknown) (no date) (unknown) (unknown) Lipase (23-300) U/L (units unknown) (unknown) (unknown) (no date) (unknown) (unknown) Lipase 16 L (23-300) U/L (units unknown) (unknown) (unknown) (no date) (unknown) (unknown) Lipase Stat (units unknown) (unknown) (unknown) (no date) (unknown) (unknown) Lymph # (Auto) (9910-6837) /uL (units unknown) (unknown) (unknown) (no date) (unknown) (unknown) Lymph # (Auto) 1000 L (9747-0926) /uL (units unknown) (unknown) (unknown) (no date) (unknown) (unknown) Lymph % (Auto) (25-40) % (units unknown) (unknown) (unknown) (no date) (unknown) (unknown) Lymph % (Auto) 5.1 L (25-40) % (units unknown) (unknown) (unknown) (no date) (unknown) (unknown) MCH (26-34) PG (units unknown) (unknown) (unknown) (no date) (unknown) (unknown) MCH 25.6 L (26-34) PG (units unknown) (unknown) (unknown) (no date) (unknown) (unknown) MCHC (30-36) % (units unknown) (unknown) (unknown) (no date) (unknown) (unknown) MCHC 33.1 (30-36) % (units unknown) (unknown) (unknown) (no date) (unknown) (unknown) MCV (80-100) fL (units unknown) (unknown) (unknown) (no date) (unknown) (unknown) MCV 77.3 L (80-100) fL (units unknown) (unknown) (unknown) (no date) (unknown) (unknown) MDM - Nausea/Vomiting/Diarr hea (units unknown) (unknown) (unknown) (no date) (unknown) (unknown) MDM Narrative (units unknown) (unknown) (unknown) (no date) (unknown) (unknown) Medical History (units unknown) (unknown) (unknown) (no date) (unknown) (unknown) Medical decision making narrative: (units unknown) (unknown) (unknown) (no date) (unknown) (unknown) Medication Instructions Recorded Confirmed (units unknown) (unknown) (unknown) (no date) (unknown) (unknown) Medication Instructions Recorded (units unknown) (unknown) (unknown) (no date) (unknown) (unknown) Migraine headache with aura (units unknown) (unknown) (unknown) (no date) (unknown) (unknown) Mode of arrival: Family Vehicle (units unknown) (unknown) (unknown) (no date) (unknown) (unknown) [place] # (Auto) (0-900 ) /uL (units unknown) (unknown) (unknown) (no date) (unknown) (unknown) [place] # (Auto) 400 (0-900) /uL (units unknown) (unknown) (unknown) (no date) (unknown) (unknown) [place] % (Auto) (3-14) % (units unknown) (unknown) (unknown) (no date) (unknown) (unknown) [place] % (Auto) 1.8 L (3-14) % (units unknown) (unknown) (unknown) (no date) (unknown) (unknown) Mother Hypertension (units unknown) (unknown) (unknown) (no date) (unknown) (unknown) Multiple etiologies for patient's symptoms considered including, but not limited (units unknown) (unknown) (unknown) (no date) (unknown) (unknown) My EKG interpretation: (units unknown) (unknown) (unknown) (no date) (unknown) (unknown) My interpretation of imaging: (units unknown) (unknown) (unknown) (no date) (unknown) (unknown) My interpretation of lab studies: (units unknown) (unknown) (unknown) (no date) (unknown) (unknown) Myopia (units unknown) (unknown) (unknown) (no date) (unknown) (unknown) NAUSEA OR VOMITING (units unknown) (unknown) (unknown) (no date) (unknown) (unknown) Neut # (Auto) (3125-1590) /uL (units unknown) (unknown) (unknown) (no date) (unknown) (unknown) Neut # (Auto) 26617 H (7233-3516) /uL (units unknown) (unknown) (unknown) (no date) (unknown) (unknown) Neut % (Auto) (50-75 ) % (units unknown) (unknown) (unknown) (no date) (unknown) (unknown) Neut % (Auto) 93.0 H (50-75) % (units unknown) (unknown) (unknown) (no date) (unknown) (unknown) No Action (units unknown) (unknown) (unknown) (no date) (unknown) (unknown) Ondansetron HCl (Ondansetron 4 Mg Odt) 4 mg SL NOW PRN (units unknown) (unknown) (unknown) (no date) (unknown) (unknown) Ondansetron HCl (Ondansetron 4 Mg/2 Ml Inj) 4 mg IV NOW PRN (units unknown) (unknown) (unknown) (no date) (unknown) (unknown) Ordered: (units unknown) (unknown) (unknown) (no date) (unknown) (unknown) Orders (units unknown) (unknown) (unknown) (no date) (unknown) (unknown) Oxygen Delivery Method Room Air 08/10/22 14:28 (units unknown) (unknown) (unknown) (no date) (unknown) (unknown) Oxygen Delivery Method Room Air (units unknown) (unknown) (unknown) (no date) (unknown) (unknown) Oxygen Delivery Method (units unknown) (unknown) (unknown) (no date) (unknown) (unknown) PRN Reason: Nausea And Vomiting (units unknown) (unknown) (unknown) (no date) (unknown) (unknown) PT (10.1-12.7) SECONDS (units unknown) (unknown) (unknown) (no date) (unknown) (unknown) PT 14.5 H (10.1-12.7 ) SECONDS (units unknown) (unknown) (unknown) (no date) (unknown) (unknown) PTT Partial Thromboplastin Sonny Stat (units unknown) (unknown) (unknown) (no date) (unknown) (unknown) Pancreatitis (units unknown) (unknown) (unknown) (no date) (unknown) (unknown) Patient Comments: (units unknown) (unknown) (unknown) (no date) (unknown) (unknown) Patient History (units unknown) (unknown) (unknown) (no date) (unknown) (unknown) Patient is appropriate for outpatient management. (units unknown) (unknown) (unknown) (no date) (unknown) (unknown) Patient: Kaur Horton MR (units unknown) (unknown) (unknown) (no date) (unknown) (unknown) Plt Count (150-400) X103/uL (units unknown) (unknown) (unknown) (no date) (unknown) (unknown) Plt Count 327 (150-400) X103/uL (units unknown) (unknown) (unknown) (no date) (unknown) (unknown) Point of Care Testing (units unknown) (unknown) (unknown) (no date) (unknown) (unknown) Potassium (3.4-5.1) mmol/L (units unknown) (unknown) (unknown) (no date) (unknown) (unknown) Potassium 4.1 (3.4-5.1) mmol/L (units unknown) (unknown) (unknown) (no date) (unknown) (unknown) Prescriptions: (units unknown) (unknown) (unknown) (no date) (unknown) (unknown) Previous Rx's (units unknown) (unknown) (unknown) (no date) (unknown) (unknown) Procalcitonin (<0.5) ng/mL (units unknown) (unknown) (unknown) (no date) (unknown) (unknown) Procalcitonin 0.34 (<0.5) ng/mL (units unknown) (unknown) (unknown) (no date) (unknown) (unknown) Procalcitonin Stat (units unknown) (unknown) (unknown) (no date) (unknown) (unknown) Prothrombin Time INR Stat (units unknown) (unknown) (unknown) (no date) (unknown) (unknown) Pulse Oximetry 98 (units unknown) (unknown) (unknown) (no date) (unknown) (unknown) Pulse Oximetry 99 08/10/22 14:28 (units unknown) (unknown) (unknown) (no date) (unknown) (unknown) Pulse Oximetry 99 98 (units unknown) (unknown) (unknown) (no date) (unknown) (unknown) Pulse Rate 103 H (units unknown) (unknown) (unknown) (no date) (unknown) (unknown) Pulse Rate 106 H 08/10/22 14:28 (units unknown) (unknown) (unknown) (no date) (unknown) (unknown) Pulse Rate 106 H 110 H (units unknown) (unknown) (unknown) (no date) (unknown) (unknown) Questions are addressed and there is agreement with the plan and for follow-up. (units unknown) (unknown) (unknown) (no date) (unknown) (unknown) RBC (4.0-5.2) X106/uL (units unknown) (unknown) (unknown) (no date) (unknown) (unknown) RBC 4.85 (4.0-5.2) X106/uL (units unknown) (unknown) (unknown) (no date) (unknown) (unknown) RDW (11.6-14.8) % (units unknown) (unknown) (unknown) (no date) (unknown) (unknown) RDW 15.7 H (11.6-14.8) % (units unknown) (unknown) (unknown) (no date) (unknown) (unknown) RT Consult Eval and Treat NOW (units unknown) (unknown) (unknown) (no date) (unknown) (unknown) Referrals: (units unknown) (unknown) (unknown) (no date) (unknown) (unknown) Related Data (units unknown) (unknown) (unknown) (no date) (unknown) (unknown) Respiratory Rate 22 08/10/22 14:28 (units unknown) (unknown) (unknown) (no date) (unknown) (unknown) Respiratory Rate 22 (units unknown) (unknown) (unknown) (no date) (unknown) (unknown) Respiratory Rate 24 (units unknown) (unknown) (unknown) (no date) (unknown) (unknown) Rx Instructions: (units unknown) (unknown) (unknown) (no date) (unknown) (unknown) See Rx Instructions .ROUTE .COMPLEX Qty: 473 0RF (units unknown) (unknown) (unknown) (no date) (unknown) (unknown) See Rx Instructions .ROUTE .MEDSUPPLY Qty: 500 1RF (units unknown) (unknown) (unknown) (no date) (unknown) (unknown) See Rx Instructions PO .COMPLEX Qty: 60 0RF (units unknown) (unknown) (unknown) (no date) (unknown) (unknown) Signed By: (units unknown) (unknown) (unknown) (no date) (unknown) (unknown) Smoking Status: Current every day smoker (units unknown) (unknown) (unknown) (no date) (unknown) (unknown) Social History (units unknown) (unknown) (unknown) (no date) (unknown) (unknown) Social consideration s that may affect disposition: none (units unknown) (unknown) (unknown) (no date) (unknown) (unknown) Sodium (137-145) mmol/L (units unknown) (unknown) (unknown) (no date) (unknown) (unknown) Sodium 142 (137-145) mmol/L (units unknown) (unknown) (unknown) (no date) (unknown) (unknown) Sodium Chloride (Normal Saline 0.9%) 1,000 mls @ 1,000 mls/hr IV BOLUS ONE (units unknown) (unknown) (unknown) (no date) (unknown) (unknown) Source: patient and family (units unknown) (unknown) (unknown) (no date) (unknown) (unknown) Stated complaint: pain all over body,vomiting (units unknown) (unknown) (unknown) (no date) (unknown) (unknown) Status post appendectomy (units unknown) (unknown) (unknown) (no date) (unknown) (unknown) Stop: 08/10/22 15:39 (units unknown) (unknown) (unknown) (no date) (unknown) (unknown) Stop: 08/10/22 16:39 (units unknown) (unknown) (unknown) (no date) (unknown) (unknown) Stop: 08/10/22 16:47 (units unknown) (unknown) (unknown) (no date) (unknown) (unknown) Stop: 08/10/22 17:45 (units unknown) (unknown) (unknown) (no date) (unknown) (unknown) Substance Use Type: marijuana (units unknown) (unknown) (unknown) (no date) (unknown) (unknown) Surgical History (units unknown) (unknown) (unknown) (no date) (unknown) (unknown) TAKE 10 MG (10ML) BY MOUTH EVERY 6 HOURS NEEDED FOR NAUSEA AND VOMITING (units unknown) (unknown) (unknown) (no date) (unknown) (unknown) TAKE 10 MG (10ML) BY MOUTH EVERY 6 HOURS NEEDED FOR NAUSEA AND VOMITING. (units unknown) (unknown) (unknown) (no date) (unknown) (unknown) Temperature 97.9 F 08/10/22 14:28 (units unknown) (unknown) (unknown) (no date) (unknown) (unknown) Temperature 97.9 F (units unknown) (unknown) (unknown) (no date) (unknown) (unknown) Temperature (units unknown) (unknown) (unknown) (no date) (unknown) (unknown) Thiamine HCl 100 mg/ Sodium (Chloride) 101 mls @ 404 mls/hr IV NOW ONE (units unknown) (unknown) (unknown) (no date) (unknown) (unknown) This is a 27-year-ol d female with history of type 1 diabetes, cyclic vomiting (units unknown) (unknown) (unknown) (no date) (unknown) (unknown) Time Seen by Provider: 08/10/22 16:38 (units unknown) (unknown) (unknown) (no date) (unknown) (unknown) Total Bilirubin (0.2-1.3) mg/dL (units unknown) (unknown) (unknown) (no date) (unknown) (unknown) Total Bilirubin 0.7 (0.2-1.3) mg/dL (units unknown) (unknown) (unknown) (no date) (unknown) (unknown) Total Protein (6.3-8.2) g/dL (units unknown) (unknown) (unknown) (no date) (unknown) (unknown) Total Protein 8.9 H (6.3-8.2) g/dL (units unknown) (unknown) (unknown) (no date) (unknown) (unknown) U-100 Insulin aspart) (units unknown) (unknown) (unknown) (no date) (unknown) (unknown) UNWRAP AND INSERT 1 SUPPOSITORY RECTALLY EVERY 4 TO 6 HOURS NEEDED FOR (units unknown) (unknown) (unknown) (no date) (unknown) (unknown) Urine Microscopic Stat (units unknown) (unknown) (unknown) (no date) (unknown) (unknown) VBG Base Excess (0-4 ) mmol/L (units unknown) (unknown) (unknown) (no date) (unknown) (unknown) VBG Base Excess -3.0 L (0-4) mmol/L (units unknown) (unknown) (unknown) (no date) (unknown) (unknown) VBG HCO3 (24-28) mmol/L (units unknown) (unknown) (unknown) (no date) (unknown) (unknown) VBG HCO3 22 L (24-28 ) mmol/L (units unknown) (unknown) (unknown) (no date) (unknown) (unknown) VBG O2 Saturation (70-75) % (units unknown) (unknown) (unknown) (no date) (unknown) (unknown) VBG O2 Saturation 88 H (70-75) % (units unknown) (unknown) (unknown) (no date) (unknown) (unknown) VBG Total CO2 (24-29 ) mmol/L (units unknown) (unknown) (unknown) (no date) (unknown) (unknown) VBG Total CO2 23 L (24-29) mmol/L (units unknown) (unknown) (unknown) (no date) (unknown) (unknown) VBG pCO2 (45-50) mmHg (units unknown) (unknown) (unknown) (no date) (unknown) (unknown) VBG pCO2 36.2 L (45-50) mmHg (units unknown) (unknown) (unknown) (no date) (unknown) (unknown) VBG pH (7.33-7.43) (units unknown) (unknown) (unknown) (no date) (unknown) (unknown) VBG pH 7.38 (7.33-7.43) (units unknown) (unknown) (unknown) (no date) (unknown) (unknown) VBG pO2 (35-45) mmHg (units unknown) (unknown) (unknown) (no date) (unknown) (unknown) VBG pO2 56 H (35-45) mmHg (units unknown) (unknown) (unknown) (no date) (unknown) (unknown) Venous Blood Gas Stat (units unknown) (unknown) (unknown) (no date) (unknown) (unknown) Vital Signs - 8 hr (units unknown) (unknown) (unknown) (no date) (unknown) (unknown) Vital Signs (units unknown) (unknown) (unknown) (no date) (unknown) (unknown) Vital signs: (units unknown) (unknown) (unknown) (no date) (unknown) (unknown) WBC (4.5-11.0) X103/uL (units unknown) (unknown) (unknown) (no date) (unknown) (unknown) WBC 20.0 H (4.5-11.0 ) X103/uL (units unknown) (unknown) (unknown) (no date) (unknown) (unknown) WITH MIGRAINE. (units unknown) (unknown) (unknown) (no date) (unknown) (unknown) [Embedded Image Not Available] (units unknown) (unknown) (unknown) (no date) (unknown) (unknown) alcohol intake frequency: holidays/special occasions only (units unknown) (unknown) (unknown) (no date) (unknown) (unknown) alcohol intake: never (units unknown) (unknown) (unknown) (no date) (unknown) (unknown) emergency department today for intractable vomiting with nausea. (units unknown) (unknown) (unknown) (no date) (unknown) (unknown) household members: spouse (units unknown) (unknown) (unknown) (no date) (unknown) (unknown) insulin aspart U-100 100 unit/mL 1 sliding scale dose SUBCUT 10/04/21 (units unknown) (unknown) (unknown) (no date) (unknown) (unknown) insulin aspart U-100 [Novolog U-100 Insulin aspart] 100 unit/mL solution (units unknown) (unknown) (unknown) (no date) (unknown) (unknown) insulin syringes (disposable) 1 mL #500 ea 08/04/20 (units unknown) (unknown) (unknown) (no date) (unknown) (unknown) ketorolac [From Toradol] Allergy Verified 08/10/22 14:43 (units unknown) (unknown) (unknown) (no date) (unknown) (unknown) metoclopramide HCl 5 mg/5 mL oral See Rx Instructions .Route 01/28/22 (units unknown) (unknown) (unknown) (no date) (unknown) (unknown) metoclopramide HCl 5 mg/5 mL solution (units unknown) (unknown) (unknown) (no date) (unknown) (unknown) pantoprazole 40 mg tablet,delayed 40 mg PO BID #30 tabs 02/07/22 (units unknown) (unknown) (unknown) (no date) (unknown) (unknown) pantoprazole 40 mg tablet,delayed release (DR/EC) (units unknown) (unknown) (unknown) (no date) (unknown) (unknown) promethazine 25 mg rectal 25 mg PA Q4-6H PRN Nausea And 01/27/22 02/07/22 (units unknown) (unknown) (unknown) (no date) (unknown) (unknown) promethazine [Promethegan] 25 mg suppository (units unknown) (unknown) (unknown) (no date) (unknown) (unknown) release (units unknown) (unknown) (unknown) (no date) (unknown) (unknown) rizatriptan 10 mg tablet (Maxalt) See Rx Instructions PO .COMPLEX 01/29/22 (units unknown) (unknown) (unknown) (no date) (unknown) (unknown) rizatriptan [Maxalt] 10 mg tablet (units unknown) (unknown) (unknown) (no date) (unknown) (unknown) solution .COMPLEX #473 mL (units unknown) (unknown) (unknown) (no date) (unknown) (unknown) subcutaneous solutio n (Novolog USEASDIRECTD #10 mL (units unknown) (unknown) (unknown) (no date) (unknown) (unknown) suppository (Promethegan) Vomiting (units unknown) (unknown) (unknown) (no date) (unknown) (unknown) syndrome, gastroparesis, DKA, appendectomy, pancreatitis who presents to the (units unknown) (unknown) (unknown) (no date) (unknown) (unknown) take 1 tab at onset of headache; if no relief may repeat 1 tab after at least (units unknown) (unknown) (unknown) (no date) (unknown) (unknown) to: (units unknown) (unknown) (unknown) (no date) (unknown) (unknown) tobacco type: vaping (units unknown) (unknown) (unknown) (no date) (unknown) (unknown) well as prior record s if available. Pertinent records include: (units unknown) (unknown) Result panel 1580 (unknown) (no date) (unknown) (unknown) (no value) (units unknown) (unknown) (unknown) (no date) (unknown) (unknown) #60 tabs (units unknown) (unknown) (unknown) (no date) (unknown) (unknown) #: [id number] (units unknown) (unknown) (unknown) (no date) (unknown) (unknown) (DME) insulin syringes (disposable) 1 mL syringe (units unknown) (unknown) (unknown) (no date) (unknown) (unknown) 08/10/22 08/10/22 08/10/22 Range/Units (units unknown) (unknown) (unknown) (no date) (unknown) (unknown) 08/10/22 14:40 (units unknown) (unknown) (unknown) (no date) (unknown) (unknown) 08/10/22 14:50 (units unknown) (unknown) (unknown) (no date) (unknown) (unknown) 08/10/22 15:40 (units unknown) (unknown) (unknown) (no date) (unknown) (unknown) 08/10/22 15:45 (units unknown) (unknown) (unknown) (no date) (unknown) (unknown) 08/10/22 16:38 (units unknown) (unknown) (unknown) (no date) (unknown) (unknown) 08/10/22 16:47 (units unknown) (unknown) (unknown) (no date) (unknown) (unknown) 08/10/22 (units unknown) (unknown) (unknown) (no date) (unknown) (unknown) 1 sliding scale dose SUBCUT USEASDIRECTD Qty: 10 3RF (units unknown) (unknown) (unknown) (no date) (unknown) (unknown) 14:28 08/10/22 (units unknown) (unknown) (unknown) (no date) (unknown) (unknown) 14:50 14:50 14:50 (units unknown) (unknown) (unknown) (no date) (unknown) (unknown) 14:50 14:50 15:45 (units unknown) (unknown) (unknown) (no date) (unknown) (unknown) 16:04 08/10/22 (units unknown) (unknown) (unknown) (no date) (unknown) (unknown) 16:14 (units unknown) (unknown) (unknown) (no date) (unknown) (unknown) 2 hrs; max = 3 tabs/24 hr PO (units unknown) (unknown) (unknown) (no date) (unknown) (unknown) 22, total CO2 of 23, O2 sat of 88 and base excess of -3 on room air, (units unknown) (unknown) (unknown) (no date) (unknown) (unknown) 25 mg PA Q4-6H PRN (Reason: Nausea And Vomiting) (units unknown) (unknown) (unknown) (no date) (unknown) (unknown) 332 on her personal CGM. Patient received 1 L normal saline prior to my (units unknown) (unknown) (unknown) (no date) (unknown) (unknown) 40 mg PO BID Qty: 30 0RF (units unknown) (unknown) (unknown) (no date) (unknown) (unknown) ALT (<35) IU/L (units unknown) (unknown) (unknown) (no date) (unknown) (unknown) ALT 19 (<35) IU/L (units unknown) (unknown) (unknown) (no date) (unknown) (unknown) APTT (26-36) SECONDS (units unknown) (unknown) (unknown) (no date) (unknown) (unknown) APTT 29 (26-36) SECONDS (units unknown) (unknown) (unknown) (no date) (unknown) (unknown) AST (14-36) IU/L (units unknown) (unknown) (unknown) (no date) (unknown) (unknown) AST 27 (14-36) IU/L (units unknown) (unknown) (unknown) (no date) (unknown) (unknown) Age/Sex: 27 / F (units unknown) (unknown) (unknown) (no date) (unknown) (unknown) Albumin (3.5-5.0) g/dL (units unknown) (unknown) (unknown) (no date) (unknown) (unknown) Albumin 5.2 H (3.5-5.0) g/dL (units unknown) (unknown) (unknown) (no date) (unknown) (unknown) Albumin/Globulin Ratio (1.0-2.8) (units unknown) (unknown) (unknown) (no date) (unknown) (unknown) Albumin/Globulin Ratio 1.4 (1.0-2.8) (units unknown) (unknown) (unknown) (no date) (unknown) (unknown) Alkaline Phosphatase (38-126) U/L (units unknown) (unknown) (unknown) (no date) (unknown) (unknown) Alkaline Phosphatase 130 H (38-126) U/L (units unknown) (unknown) (unknown) (no date) (unknown) (unknown) Allergies (units unknown) (unknown) (unknown) (no date) (unknown) (unknown) Allergy/AdvReac Type Severity Reaction Status Date / Time (units unknown) (unknown) (unknown) (no date) (unknown) (unknown) Anemia (units unknown) (unknown) (unknown) (no date) (unknown) (unknown) As directed for use with insulin injections (units unknown) (unknown) (unknown) (no date) (unknown) (unknown) BUN (7-17) mg/dL (units unknown) (unknown) (unknown) (no date) (unknown) (unknown) BUN 21 H (7-17) mg/dL (units unknown) (unknown) (unknown) (no date) (unknown) (unknown) BUN/Creatinine Ratio (6-22) (units unknown) (unknown) (unknown) (no date) (unknown) (unknown) BUN/Creatinine Ratio 33.9 H (6-22) (units unknown) (unknown) (unknown) (no date) (unknown) (unknown) Baso # (Auto) (0-100 ) /uL (units unknown) (unknown) (unknown) (no date) (unknown) (unknown) Baso # (Auto) 0 (0-100) /uL (units unknown) (unknown) (unknown) (no date) (unknown) (unknown) Baso % (Auto) (0-2) % (units unknown) (unknown) (unknown) (no date) (unknown) (unknown) Baso % (Auto) 0.1 (0-2) % (units unknown) (unknown) (unknown) (no date) (unknown) (unknown) Blood Culture Stat (units unknown) (unknown) (unknown) (no date) (unknown) (unknown) Blood Pressure 128/7 8 08/10/22 14:28 (units unknown) (unknown) (unknown) (no date) (unknown) (unknown) Blood Pressure 128/7 8 113/58 L (units unknown) (unknown) (unknown) (no date) (unknown) (unknown) Blood Pressure (units unknown) (unknown) (unknown) (no date) (unknown) (unknown) COVID19 -Nasal RAPID Stat (units unknown) (unknown) (unknown) (no date) (unknown) (unknown) Calcium (8.4-10.2) mg/dL (units unknown) (unknown) (unknown) (no date) (unknown) (unknown) Calcium 9.4 (8.4-10.2) mg/dL (units unknown) (unknown) (unknown) (no date) (unknown) (unknown) Carbon Dioxide (22-32) mmol/L (units unknown) (unknown) (unknown) (no date) (unknown) (unknown) Carbon Dioxide 21 L (22-32) mmol/L (units unknown) (unknown) (unknown) (no date) (unknown) (unknown) Chief Complaint: Nausea vomiting, type 1 diabetes (units unknown) (unknown) (unknown) (no date) (unknown) (unknown) Chief complaint: Nausea/Vomiting/Diarr hea (units unknown) (unknown) (unknown) (no date) (unknown) (unknown) Chloride (98-107) mmol/L (units unknown) (unknown) (unknown) (no date) (unknown) (unknown) Chloride 106 (98-107 ) mmol/L (units unknown) (unknown) (unknown) (no date) (unknown) (unknown) Complete Blood Count AUTO DIFF Stat (units unknown) (unknown) (unknown) (no date) (unknown) (unknown) Comprehensive Metabolic Panel Stat (units unknown) (unknown) (unknown) (no date) (unknown) (unknown) Course of care: Patient was asking for pain medication prior to giving her (units unknown) (unknown) (unknown) (no date) (unknown) (unknown) Course (units unknown) (unknown) (unknown) (no date) (unknown) (unknown) Creatinine (0.52-1.04) mg/dL (units unknown) (unknown) (unknown) (no date) (unknown) (unknown) Creatinine 0.62 (0.52-1.04) mg/dL (units unknown) (unknown) (unknown) (no date) (unknown) (unknown) Cyclic vomiting syndrome (units unknown) (unknown) (unknown) (no date) (unknown) (unknown) DKA (diabetic ketoacidoses) (units unknown) (unknown) (unknown) (no date) (unknown) (unknown) : 1995 Acct:[id number] (units unknown) (unknown) (unknown) (no date) (unknown) (unknown) Date of Service: 08/10/22 (units unknown) (unknown) (unknown) (no date) (unknown) (unknown) Departure (units unknown) (unknown) (unknown) (no date) (unknown) (unknown) Diabetes mellitus, type I (units unknown) (unknown) (unknown) (no date) (unknown) (unknown) Discharge Plan (units unknown) (unknown) (unknown) (no date) (unknown) (unknown) Discontinued Medications (units unknown) (unknown) (unknown) (no date) (unknown) (unknown) Documented By: RL (units unknown) (unknown) (unknown) (no date) (unknown) (unknown) Dose Instruction: (units unknown) (unknown) (unknown) (no date) (unknown) (unknown) ED Orders (units unknown) (unknown) (unknown) (no date) (unknown) (unknown) EKG-12 Lead Stat (units unknown) (unknown) (unknown) (no date) (unknown) (unknown) ER Physician: KimberlywKarol (units unknown) (unknown) (unknown) (no date) (unknown) (unknown) Emergency Report (units unknown) (unknown) (unknown) (no date) (unknown) (unknown) Eos # (Auto) (0-450) /uL (units unknown) (unknown) (unknown) (no date) (unknown) (unknown) Eos # (Auto) 0 (0-450) /uL (units unknown) (unknown) (unknown) (no date) (unknown) (unknown) Eos % (Auto) (2-4) % (units unknown) (unknown) (unknown) (no date) (unknown) (unknown) Eos % (Auto) 0.0 L (2-4) % (units unknown) (unknown) (unknown) (no date) (unknown) (unknown) Estimated GFR > 60 (>60) mL/min (units unknown) (unknown) (unknown) (no date) (unknown) (unknown) Estimated GFR (>60) mL/min (units unknown) (unknown) (unknown) (no date) (unknown) (unknown) Exam (units unknown) (unknown) (unknown) (no date) (unknown) (unknown) Family History (units unknown) (unknown) (unknown) (no date) (unknown) (unknown) Father Healthy adult (units unknown) (unknown) (unknown) (no date) (unknown) (unknown) FiO2 21 (units unknown) (unknown) (unknown) (no date) (unknown) (unknown) FiO2 (units unknown) (unknown) (unknown) (no date) (unknown) (unknown) Gastroparesis (units unknown) (unknown) (unknown) (no date) (unknown) (unknown) General (units unknown) (unknown) (unknown) (no date) (unknown) (unknown) Globulin (1.7-4.1) g/dL (units unknown) (unknown) (unknown) (no date) (unknown) (unknown) Globulin 3.7 (1.7-4.1) g/dL (units unknown) (unknown) (unknown) (no date) (unknown) (unknown) Glucose (70-100) mg/dL (units unknown) (unknown) (unknown) (no date) (unknown) (unknown) Glucose 221 H (70-100) mg/dL (units unknown) (unknown) (unknown) (no date) (unknown) (unknown) Glucose POC 350 (units unknown) (unknown) (unknown) (no date) (unknown) (unknown) HPI - Nausea/Vomiting/Diarr hea (units unknown) (unknown) (unknown) (no date) (unknown) (unknown) HPI Narrative: (units unknown) (unknown) (unknown) (no date) (unknown) (unknown) Hct (36-46) % (units unknown) (unknown) (unknown) (no date) (unknown) (unknown) Hct 37.5 (36-46) % (units unknown) (unknown) (unknown) (no date) (unknown) (unknown) Hgb (12.0-16.0) g/dL (units unknown) (unknown) (unknown) (no date) (unknown) (unknown) Hgb 12.4 (12.0-16.0) g/dL (units unknown) (unknown) (unknown) (no date) (unknown) (unknown) History of Present Illness (units unknown) (unknown) (unknown) (no date) (unknown) (unknown) Home Medications (units unknown) (unknown) (unknown) (no date) (unknown) (unknown) Delonte Trevino MD [Primary Care Provider] (units unknown) (unknown) (unknown) (no date) (unknown) (unknown) Hydromorphone HCl (Hydromorphone 0.5 Mg Inj) 0.5 mg IV NOW ONE (units unknown) (unknown) (unknown) (no date) (unknown) (unknown) I have independently reviewed the patient's vital signs and nursing notes as (units unknown) (unknown) (unknown) (no date) (unknown) (unknown) INR (0.9-1.3) (units unknown) (unknown) (unknown) (no date) (unknown) (unknown) INR 1.3 (0.9-1.3) (units unknown) (unknown) (unknown) (no date) (unknown) (unknown) Independent historian: Patient and her sister Celsa (units unknown) (unknown) (unknown) (no date) (unknown) (unknown) Initial Vital Signs (units unknown) (unknown) (unknown) (no date) (unknown) (unknown) Initial Vital Signs: (units unknown) (unknown) (unknown) (no date) (unknown) (unknown) Insulin dependent diabetes mellitus (units unknown) (unknown) (unknown) (no date) (unknown) (unknown) [address] [address] (units unknown) (unknown) (unknown) (no date) (unknown) (unknown) Ketones (<0.27) mmol/L (units unknown) (unknown) (unknown) (no date) (unknown) (unknown) Ketones (Beta-Hydroxybutyrate ) Stat (units unknown) (unknown) (unknown) (no date) (unknown) (unknown) Ketones 1.46 H (<0.27) mmol/L (units unknown) (unknown) (unknown) (no date) (unknown) (unknown) Lab Data (units unknown) (unknown) (unknown) (no date) (unknown) (unknown) Lab Results (units unknown) (unknown) (unknown) (no date) (unknown) (unknown) Labs: (units unknown) (unknown) (unknown) (no date) (unknown) (unknown) Lactate (0.7-2.1) mmol/L (units unknown) (unknown) (unknown) (no date) (unknown) (unknown) Lactate (Lactic Acid ) Stat (units unknown) (unknown) (unknown) (no date) (unknown) (unknown) Lactate 2.8 H (0.7-2.1) mmol/L (units unknown) (unknown) (unknown) (no date) (unknown) (unknown) Last Admin: 08/10/22 15:07 Dose: 1,000 mls/hr (units unknown) (unknown) (unknown) (no date) (unknown) (unknown) Last Admin: 08/10/22 15:09 Dose: 4 mg (units unknown) (unknown) (unknown) (no date) (unknown) (unknown) Lipase (23-300) U/L (units unknown) (unknown) (unknown) (no date) (unknown) (unknown) Lipase 16 L (23-300) U/L (units unknown) (unknown) (unknown) (no date) (unknown) (unknown) Lipase Stat (units unknown) (unknown) (unknown) (no date) (unknown) (unknown) Lymph # (Auto) (6996-4567) /uL (units unknown) (unknown) (unknown) (no date) (unknown) (unknown) Lymph # (Auto) 1000 L (2045-9371) /uL (units unknown) (unknown) (unknown) (no date) (unknown) (unknown) Lymph % (Auto) (25-40) % (units unknown) (unknown) (unknown) (no date) (unknown) (unknown) Lymph % (Auto) 5.1 L (25-40) % (units unknown) (unknown) (unknown) (no date) (unknown) (unknown) MCH (26-34) PG (units unknown) (unknown) (unknown) (no date) (unknown) (unknown) MCH 25.6 L (26-34) PG (units unknown) (unknown) (unknown) (no date) (unknown) (unknown) MCHC (30-36) % (units unknown) (unknown) (unknown) (no date) (unknown) (unknown) MCHC 33.1 (30-36) % (units unknown) (unknown) (unknown) (no date) (unknown) (unknown) MCV (80-100) fL (units unknown) (unknown) (unknown) (no date) (unknown) (unknown) MCV 77.3 L (80-100) fL (units unknown) (unknown) (unknown) (no date) (unknown) (unknown) MDM - Nausea/Vomiting/Diarr hea (units unknown) (unknown) (unknown) (no date) (unknown) (unknown) MDM Narrative (units unknown) (unknown) (unknown) (no date) (unknown) (unknown) Medical History (units unknown) (unknown) (unknown) (no date) (unknown) (unknown) Medical decision making narrative: (units unknown) (unknown) (unknown) (no date) (unknown) (unknown) Medication Instructions Recorded Confirmed (units unknown) (unknown) (unknown) (no date) (unknown) (unknown) Medication Instructions Recorded (units unknown) (unknown) (unknown) (no date) (unknown) (unknown) Migraine headache with aura (units unknown) (unknown) (unknown) (no date) (unknown) (unknown) Mode of arrival: Family Vehicle (units unknown) (unknown) (unknown) (no date) (unknown) (unknown) [place] # (Auto) (0-900 ) /uL (units unknown) (unknown) (unknown) (no date) (unknown) (unknown) [place] # (Auto) 400 (0-900) /uL (units unknown) (unknown) (unknown) (no date) (unknown) (unknown) [place] % (Auto) (3-14) % (units unknown) (unknown) (unknown) (no date) (unknown) (unknown) [place] % (Auto) 1.8 L (3-14) % (units unknown) (unknown) (unknown) (no date) (unknown) (unknown) Mother Hypertension (units unknown) (unknown) (unknown) (no date) (unknown) (unknown) Multiple etiologies for patient's symptoms considered including, but not limited (units unknown) (unknown) (unknown) (no date) (unknown) (unknown) My interpretation of imaging: (units unknown) (unknown) (unknown) (no date) (unknown) (unknown) My interpretation of lab studies: CBC is elevated at 20 with mild (units unknown) (unknown) (unknown) (no date) (unknown) (unknown) Myopia (units unknown) (unknown) (unknown) (no date) (unknown) (unknown) NAUSEA OR VOMITING (units unknown) (unknown) (unknown) (no date) (unknown) (unknown) Neut # (Auto) (4740-9462) /uL (units unknown) (unknown) (unknown) (no date) (unknown) (unknown) Neut # (Auto) 38750 H (4757-9193) /uL (units unknown) (unknown) (unknown) (no date) (unknown) (unknown) Neut % (Auto) (50-75 ) % (units unknown) (unknown) (unknown) (no date) (unknown) (unknown) Neut % (Auto) 93.0 H (50-75) % (units unknown) (unknown) (unknown) (no date) (unknown) (unknown) No Action (units unknown) (unknown) (unknown) (no date) (unknown) (unknown) Ondansetron HCl (Ondansetron 4 Mg Odt) 4 mg SL NOW PRN (units unknown) (unknown) (unknown) (no date) (unknown) (unknown) Ondansetron HCl (Ondansetron 4 Mg/2 Ml Inj) 4 mg IV NOW PRN (units unknown) (unknown) (unknown) (no date) (unknown) (unknown) Ordered: (units unknown) (unknown) (unknown) (no date) (unknown) (unknown) Orders (units unknown) (unknown) (unknown) (no date) (unknown) (unknown) Oxygen Delivery Method Room Air 08/10/22 14:28 (units unknown) (unknown) (unknown) (no date) (unknown) (unknown) Oxygen Delivery Method Room Air (units unknown) (unknown) (unknown) (no date) (unknown) (unknown) Oxygen Delivery Method (units unknown) (unknown) (unknown) (no date) (unknown) (unknown) PRN Reason: Nausea And Vomiting (units unknown) (unknown) (unknown) (no date) (unknown) (unknown) PT (10.1-12.7) SECONDS (units unknown) (unknown) (unknown) (no date) (unknown) (unknown) PT 14.5 H (10.1-12.7 ) SECONDS (units unknown) (unknown) (unknown) (no date) (unknown) (unknown) PTT Partial Thromboplastin Sonny Stat (units unknown) (unknown) (unknown) (no date) (unknown) (unknown) Pancreatitis (units unknown) (unknown) (unknown) (no date) (unknown) (unknown) Patient Comments: (units unknown) (unknown) (unknown) (no date) (unknown) (unknown) Patient History (units unknown) (unknown) (unknown) (no date) (unknown) (unknown) Patient is appropriate for outpatient management. (units unknown) (unknown) (unknown) (no date) (unknown) (unknown) Patient: Kaur Horton MR (units unknown) (unknown) (unknown) (no date) (unknown) (unknown) Plt Count (150-400) X103/uL (units unknown) (unknown) (unknown) (no date) (unknown) (unknown) Plt Count 327 (150-400) X103/uL (units unknown) (unknown) (unknown) (no date) (unknown) (unknown) Point of Care Testing (units unknown) (unknown) (unknown) (no date) (unknown) (unknown) Potassium (3.4-5.1) mmol/L (units unknown) (unknown) (unknown) (no date) (unknown) (unknown) Potassium 4.1 (3.4-5.1) mmol/L (units unknown) (unknown) (unknown) (no date) (unknown) (unknown) Prescriptions: (units unknown) (unknown) (unknown) (no date) (unknown) (unknown) Previous Rx's (units unknown) (unknown) (unknown) (no date) (unknown) (unknown) Procalcitonin (<0.5) ng/mL (units unknown) (unknown) (unknown) (no date) (unknown) (unknown) Procalcitonin 0.34 (<0.5) ng/mL (units unknown) (unknown) (unknown) (no date) (unknown) (unknown) Procalcitonin Stat (units unknown) (unknown) (unknown) (no date) (unknown) (unknown) Prothrombin Time INR Stat (units unknown) (unknown) (unknown) (no date) (unknown) (unknown) Pulse Oximetry 98 (units unknown) (unknown) (unknown) (no date) (unknown) (unknown) Pulse Oximetry 99 08/10/22 14:28 (units unknown) (unknown) (unknown) (no date) (unknown) (unknown) Pulse Oximetry 99 98 (units unknown) (unknown) (unknown) (no date) (unknown) (unknown) Pulse Rate 103 H (units unknown) (unknown) (unknown) (no date) (unknown) (unknown) Pulse Rate 106 H 08/10/22 14:28 (units unknown) (unknown) (unknown) (no date) (unknown) (unknown) Pulse Rate 106 H 110 H (units unknown) (unknown) (unknown) (no date) (unknown) (unknown) Questions are addressed and there is agreement with the plan and for follow-up. (units unknown) (unknown) (unknown) (no date) (unknown) (unknown) RBC (4.0-5.2) X106/uL (units unknown) (unknown) (unknown) (no date) (unknown) (unknown) RBC 4.85 (4.0-5.2) X106/uL (units unknown) (unknown) (unknown) (no date) (unknown) (unknown) RDW (11.6-14.8) % (units unknown) (unknown) (unknown) (no date) (unknown) (unknown) RDW 15.7 H (11.6-14.8) % (units unknown) (unknown) (unknown) (no date) (unknown) (unknown) RT Consult Eval and Treat NOW (units unknown) (unknown) (unknown) (no date) (unknown) (unknown) Referrals: (units unknown) (unknown) (unknown) (no date) (unknown) (unknown) Related Data (units unknown) (unknown) (unknown) (no date) (unknown) (unknown) Respiratory Rate 22 08/10/22 14:28 (units unknown) (unknown) (unknown) (no date) (unknown) (unknown) Respiratory Rate 22 (units unknown) (unknown) (unknown) (no date) (unknown) (unknown) Respiratory Rate 24 (units unknown) (unknown) (unknown) (no date) (unknown) (unknown) Rx Instructions: (units unknown) (unknown) (unknown) (no date) (unknown) (unknown) See Rx Instructions .ROUTE .COMPLEX Qty: 473 0RF (units unknown) (unknown) (unknown) (no date) (unknown) (unknown) See Rx Instructions .ROUTE .MEDSUPPLY Qty: 500 1RF (units unknown) (unknown) (unknown) (no date) (unknown) (unknown) See Rx Instructions PO .COMPLEX Qty: 60 0RF (units unknown) (unknown) (unknown) (no date) (unknown) (unknown) Signed By: (units unknown) (unknown) (unknown) (no date) (unknown) (unknown) Smoking Status: Current every day smoker (units unknown) (unknown) (unknown) (no date) (unknown) (unknown) Social History (units unknown) (unknown) (unknown) (no date) (unknown) (unknown) Social consideration s that may affect disposition: none (units unknown) (unknown) (unknown) (no date) (unknown) (unknown) Sodium (137-145) mmol/L (units unknown) (unknown) (unknown) (no date) (unknown) (unknown) Sodium 142 (137-145) mmol/L (units unknown) (unknown) (unknown) (no date) (unknown) (unknown) Sodium Chloride (Normal Saline 0.9%) 1,000 mls @ 1,000 mls/hr IV BOLUS ONE (units unknown) (unknown) (unknown) (no date) (unknown) (unknown) Source: patient and family (units unknown) (unknown) (unknown) (no date) (unknown) (unknown) Stated complaint: pain all over body,vomiting (units unknown) (unknown) (unknown) (no date) (unknown) (unknown) Status post appendectomy (units unknown) (unknown) (unknown) (no date) (unknown) (unknown) Stop: 08/10/22 15:39 (units unknown) (unknown) (unknown) (no date) (unknown) (unknown) Stop: 08/10/22 16:39 (units unknown) (unknown) (unknown) (no date) (unknown) (unknown) Stop: 08/10/22 16:47 (units unknown) (unknown) (unknown) (no date) (unknown) (unknown) Stop: 08/10/22 17:45 (units unknown) (unknown) (unknown) (no date) (unknown) (unknown) Substance Use Type: marijuana (units unknown) (unknown) (unknown) (no date) (unknown) (unknown) Surgical History (units unknown) (unknown) (unknown) (no date) (unknown) (unknown) TAKE 10 MG (10ML) BY MOUTH EVERY 6 HOURS NEEDED FOR NAUSEA AND VOMITING (units unknown) (unknown) (unknown) (no date) (unknown) (unknown) TAKE 10 MG (10ML) BY MOUTH EVERY 6 HOURS NEEDED FOR NAUSEA AND VOMITING. (units unknown) (unknown) (unknown) (no date) (unknown) (unknown) Temperature 97.9 F 08/10/22 14:28 (units unknown) (unknown) (unknown) (no date) (unknown) (unknown) Temperature 97.9 F (units unknown) (unknown) (unknown) (no date) (unknown) (unknown) Temperature (units unknown) (unknown) (unknown) (no date) (unknown) (unknown) Thiamine HCl 100 mg/ Sodium (Chloride) 101 mls @ 404 mls/hr IV NOW ONE (units unknown) (unknown) (unknown) (no date) (unknown) (unknown) This is a 27-year-ol d female with history of type 1 diabetes, cyclic vomiting (units unknown) (unknown) (unknown) (no date) (unknown) (unknown) Time Seen by Provider: 08/10/22 16:38 (units unknown) (unknown) (unknown) (no date) (unknown) (unknown) Total Bilirubin (0.2-1.3) mg/dL (units unknown) (unknown) (unknown) (no date) (unknown) (unknown) Total Bilirubin 0.7 (0.2-1.3) mg/dL (units unknown) (unknown) (unknown) (no date) (unknown) (unknown) Total Protein (6.3-8.2) g/dL (units unknown) (unknown) (unknown) (no date) (unknown) (unknown) Total Protein 8.9 H (6.3-8.2) g/dL (units unknown) (unknown) (unknown) (no date) (unknown) (unknown) U-100 Insulin aspart) (units unknown) (unknown) (unknown) (no date) (unknown) (unknown) UNWRAP AND INSERT 1 SUPPOSITORY RECTALLY EVERY 4 TO 6 HOURS NEEDED FOR (units unknown) (unknown) (unknown) (no date) (unknown) (unknown) Urine Microscopic Stat (units unknown) (unknown) (unknown) (no date) (unknown) (unknown) VBG Base Excess (0-4 ) mmol/L (units unknown) (unknown) (unknown) (no date) (unknown) (unknown) VBG Base Excess -3.0 L (0-4) mmol/L (units unknown) (unknown) (unknown) (no date) (unknown) (unknown) VBG HCO3 (24-28) mmol/L (units unknown) (unknown) (unknown) (no date) (unknown) (unknown) VBG HCO3 22 L (24-28 ) mmol/L (units unknown) (unknown) (unknown) (no date) (unknown) (unknown) VBG O2 Saturation (70-75) % (units unknown) (unknown) (unknown) (no date) (unknown) (unknown) VBG O2 Saturation 88 H (70-75) % (units unknown) (unknown) (unknown) (no date) (unknown) (unknown) VBG Total CO2 (24-29 ) mmol/L (units unknown) (unknown) (unknown) (no date) (unknown) (unknown) VBG Total CO2 23 L (24-29) mmol/L (units unknown) (unknown) (unknown) (no date) (unknown) (unknown) VBG pCO2 (45-50) mmHg (units unknown) (unknown) (unknown) (no date) (unknown) (unknown) VBG pCO2 36.2 L (45-50) mmHg (units unknown) (unknown) (unknown) (no date) (unknown) (unknown) VBG pH (7.33-7.43) (units unknown) (unknown) (unknown) (no date) (unknown) (unknown) VBG pH 7.38 (7.33-7.43) (units unknown) (unknown) (unknown) (no date) (unknown) (unknown) VBG pO2 (35-45) mmHg (units unknown) (unknown) (unknown) (no date) (unknown) (unknown) VBG pO2 56 H (35-45) mmHg (units unknown) (unknown) (unknown) (no date) (unknown) (unknown) Venous Blood Gas Stat (units unknown) (unknown) (unknown) (no date) (unknown) (unknown) Vital Signs - 8 hr (units unknown) (unknown) (unknown) (no date) (unknown) (unknown) Vital Signs (units unknown) (unknown) (unknown) (no date) (unknown) (unknown) Vital signs: (units unknown) (unknown) (unknown) (no date) (unknown) (unknown) WBC (4.5-11.0) X103/uL (units unknown) (unknown) (unknown) (no date) (unknown) (unknown) WBC 20.0 H (4.5-11.0 ) X103/uL (units unknown) (unknown) (unknown) (no date) (unknown) (unknown) WITH MIGRAINE. (units unknown) (unknown) (unknown) (no date) (unknown) (unknown) [Embedded Image Not Available] (units unknown) (unknown) (unknown) (no date) (unknown) (unknown) alcohol intake frequency: holidays/special occasions only (units unknown) (unknown) (unknown) (no date) (unknown) (unknown) alcohol intake: never (units unknown) (unknown) (unknown) (no date) (unknown) (unknown) emergency department today for intractable vomiting with nausea. (units unknown) (unknown) (unknown) (no date) (unknown) (unknown) evaluation, she ende d up having an elevated lactate, her nausea vomiting has (units unknown) (unknown) (unknown) (no date) (unknown) (unknown) hemoconcentration compared with prior lab work, there is a left shift however (units unknown) (unknown) (unknown) (no date) (unknown) (unknown) household members: spouse (units unknown) (unknown) (unknown) (no date) (unknown) (unknown) improved, ask her to leave a urine sample, she is currently in the bathroom, (units unknown) (unknown) (unknown) (no date) (unknown) (unknown) insulin aspart U-100 100 unit/mL 1 sliding scale dose SUBCUT 10/04/21 (units unknown) (unknown) (unknown) (no date) (unknown) (unknown) insulin aspart U-100 [Novolog U-100 Insulin aspart] 100 unit/mL solution (units unknown) (unknown) (unknown) (no date) (unknown) (unknown) insulin syringes (disposable) 1 mL #500 ea 08/04/20 (units unknown) (unknown) (unknown) (no date) (unknown) (unknown) insulin, she took he r insulin 4 units via her insulin pump for a blood sugar of (units unknown) (unknown) (unknown) (no date) (unknown) (unknown) ketorolac [From Toradol] Allergy Verified 08/10/22 14:43 (units unknown) (unknown) (unknown) (no date) (unknown) (unknown) metoclopramide HCl 5 mg/5 mL oral See Rx Instructions .Route 01/28/22 (units unknown) (unknown) (unknown) (no date) (unknown) (unknown) metoclopramide HCl 5 mg/5 mL solution (units unknown) (unknown) (unknown) (no date) (unknown) (unknown) normal potassium level, bilateral CVA tenderness concerning for pyelonephritis (units unknown) (unknown) (unknown) (no date) (unknown) (unknown) pantoprazole 40 mg tablet,delayed 40 mg PO BID #30 tabs 02/07/22 (units unknown) (unknown) (unknown) (no date) (unknown) (unknown) pantoprazole 40 mg tablet,delayed release (DR/EC) (units unknown) (unknown) (unknown) (no date) (unknown) (unknown) patient is dehydrated, VBG pH of 7.38 with a pCO2 of 36.2, PO2 of 56, bicarb of (units unknown) (unknown) (unknown) (no date) (unknown) (unknown) procalcitonin, blood cultures are pending (units unknown) (unknown) (unknown) (no date) (unknown) (unknown) promethazine 25 mg rectal 25 mg PA Q4-6H PRN Nausea And 01/27/22 02/07/22 (units unknown) (unknown) (unknown) (no date) (unknown) (unknown) promethazine [Promethegan] 25 mg suppository (units unknown) (unknown) (unknown) (no date) (unknown) (unknown) related to urinary tract infection. We will follow-up on UA, added on (units unknown) (unknown) (unknown) (no date) (unknown) (unknown) release (units unknown) (unknown) (unknown) (no date) (unknown) (unknown) rizatriptan 10 mg tablet (Maxalt) See Rx Instructions PO .COMPLEX 01/29/22 (units unknown) (unknown) (unknown) (no date) (unknown) (unknown) rizatriptan [Maxalt] 10 mg tablet (units unknown) (unknown) (unknown) (no date) (unknown) (unknown) solution .COMPLEX #473 mL (units unknown) (unknown) (unknown) (no date) (unknown) (unknown) subcutaneous solutio n (Novolog USEASDIRECTD #10 mL (units unknown) (unknown) (unknown) (no date) (unknown) (unknown) suppository (Promethegan) Vomiting (units unknown) (unknown) (unknown) (no date) (unknown) (unknown) syndrome, gastroparesis, DKA, appendectomy, pancreatitis who presents to the (units unknown) (unknown) (unknown) (no date) (unknown) (unknown) take 1 tab at onset of headache; if no relief may repeat 1 tab after at least (units unknown) (unknown) (unknown) (no date) (unknown) (unknown) to: UTI, pyelonephritis, nephrolithiasis (units unknown) (unknown) (unknown) (no date) (unknown) (unknown) tobacco type: vaping (units unknown) (unknown) (unknown) (no date) (unknown) (unknown) well as prior record s if available. Pertinent records include: (units unknown) (unknown) (unknown) (no date) (unknown) (unknown) will treat her lacti c acidosis with a secondary L of normal saline, she has a (units unknown) (unknown) Result panel [id number] (unknown) (no date) (unknown) (unknown) (no value) (units unknown) (unknown) (unknown) (no date) (unknown) (unknown) #60 tabs (units unknown) (unknown) (unknown) (no date) (unknown) (unknown) #: [id number] (units unknown) (unknown) (unknown) (no date) (unknown) (unknown) (DME) insulin syringes (disposable) 1 mL syringe (units unknown) (unknown) (unknown) (no date) (unknown) (unknown) 08/10/22 08/10/22 08/10/22 Range/Units (units unknown) (unknown) (unknown) (no date) (unknown) (unknown) 08/10/22 14:40 (units unknown) (unknown) (unknown) (no date) (unknown) (unknown) 08/10/22 14:50 (units unknown) (unknown) (unknown) (no date) (unknown) (unknown) 08/10/22 15:40 (units unknown) (unknown) (unknown) (no date) (unknown) (unknown) 08/10/22 15:45 (units unknown) (unknown) (unknown) (no date) (unknown) (unknown) 08/10/22 16:38 (units unknown) (unknown) (unknown) (no date) (unknown) (unknown) 08/10/22 16:47 (units unknown) (unknown) (unknown) (no date) (unknown) (unknown) 08/10/22 (units unknown) (unknown) (unknown) (no date) (unknown) (unknown) 1 sliding scale dose SUBCUT USEASDIRECTD Qty: 10 3RF (units unknown) (unknown) (unknown) (no date) (unknown) (unknown) 14:28 08/10/22 (units unknown) (unknown) (unknown) (no date) (unknown) (unknown) 14:50 14:50 14:50 (units unknown) (unknown) (unknown) (no date) (unknown) (unknown) 14:50 14:50 15:45 (units unknown) (unknown) (unknown) (no date) (unknown) (unknown) 16:04 08/10/22 (units unknown) (unknown) (unknown) (no date) (unknown) (unknown) 16:14 (units unknown) (unknown) (unknown) (no date) (unknown) (unknown) 2 hrs; max = 3 tabs/24 hr PO (units unknown) (unknown) (unknown) (no date) (unknown) (unknown) 22, total CO2 of 23, O2 sat of 88 and base excess of -3 on room air, (units unknown) (unknown) (unknown) (no date) (unknown) (unknown) 25 mg PA Q4-6H PRN (Reason: Nausea And Vomiting) (units unknown) (unknown) (unknown) (no date) (unknown) (unknown) 332 on her personal CGM. Patient received 1 L normal saline prior to my (units unknown) (unknown) (unknown) (no date) (unknown) (unknown) 40 mg PO BID Qty: 30 0RF (units unknown) (unknown) (unknown) (no date) (unknown) (unknown) ALT (<35) IU/L (units unknown) (unknown) (unknown) (no date) (unknown) (unknown) ALT 19 (<35) IU/L (units unknown) (unknown) (unknown) (no date) (unknown) (unknown) APTT (26-36) SECONDS (units unknown) (unknown) (unknown) (no date) (unknown) (unknown) APTT 29 (26-36) SECONDS (units unknown) (unknown) (unknown) (no date) (unknown) (unknown) AST (14-36) IU/L (units unknown) (unknown) (unknown) (no date) (unknown) (unknown) AST 27 (14-36) IU/L (units unknown) (unknown) (unknown) (no date) (unknown) (unknown) Age/Sex: 27 / F (units unknown) (unknown) (unknown) (no date) (unknown) (unknown) Albumin (3.5-5.0) g/dL (units unknown) (unknown) (unknown) (no date) (unknown) (unknown) Albumin 5.2 H (3.5-5.0) g/dL (units unknown) (unknown) (unknown) (no date) (unknown) (unknown) Albumin/Globulin Ratio (1.0-2.8) (units unknown) (unknown) (unknown) (no date) (unknown) (unknown) Albumin/Globulin Ratio 1.4 (1.0-2.8) (units unknown) (unknown) (unknown) (no date) (unknown) (unknown) Alkaline Phosphatase (38-126) U/L (units unknown) (unknown) (unknown) (no date) (unknown) (unknown) Alkaline Phosphatase 130 H (38-126) U/L (units unknown) (unknown) (unknown) (no date) (unknown) (unknown) Allergies (units unknown) (unknown) (unknown) (no date) (unknown) (unknown) Allergy/AdvReac Type Severity Reaction Status Date / Time (units unknown) (unknown) (unknown) (no date) (unknown) (unknown) Anemia (units unknown) (unknown) (unknown) (no date) (unknown) (unknown) As directed for use with insulin injections (units unknown) (unknown) (unknown) (no date) (unknown) (unknown) BUN (7-17) mg/dL (units unknown) (unknown) (unknown) (no date) (unknown) (unknown) BUN 21 H (7-17) mg/dL (units unknown) (unknown) (unknown) (no date) (unknown) (unknown) BUN/Creatinine Ratio (6-22) (units unknown) (unknown) (unknown) (no date) (unknown) (unknown) BUN/Creatinine Ratio 33.9 H (6-22) (units unknown) (unknown) (unknown) (no date) (unknown) (unknown) Baso # (Auto) (0-100 ) /uL (units unknown) (unknown) (unknown) (no date) (unknown) (unknown) Baso # (Auto) 0 (0-100) /uL (units unknown) (unknown) (unknown) (no date) (unknown) (unknown) Baso % (Auto) (0-2) % (units unknown) (unknown) (unknown) (no date) (unknown) (unknown) Baso % (Auto) 0.1 (0-2) % (units unknown) (unknown) (unknown) (no date) (unknown) (unknown) Blood Culture Stat (units unknown) (unknown) (unknown) (no date) (unknown) (unknown) Blood Pressure 128/7 8 08/10/22 14:28 (units unknown) (unknown) (unknown) (no date) (unknown) (unknown) Blood Pressure 128/7 8 113/58 L (units unknown) (unknown) (unknown) (no date) (unknown) (unknown) Blood Pressure (units unknown) (unknown) (unknown) (no date) (unknown) (unknown) COVID19 -Nasal RAPID Stat (units unknown) (unknown) (unknown) (no date) (unknown) (unknown) Calcium (8.4-10.2) mg/dL (units unknown) (unknown) (unknown) (no date) (unknown) (unknown) Calcium 9.4 (8.4-10.2) mg/dL (units unknown) (unknown) (unknown) (no date) (unknown) (unknown) Carbon Dioxide (22-32) mmol/L (units unknown) (unknown) (unknown) (no date) (unknown) (unknown) Carbon Dioxide 21 L (22-32) mmol/L (units unknown) (unknown) (unknown) (no date) (unknown) (unknown) Chief Complaint: Nausea vomiting, type 1 diabetes (units unknown) (unknown) (unknown) (no date) (unknown) (unknown) Chief complaint: Nausea/Vomiting/Diarr hea (units unknown) (unknown) (unknown) (no date) (unknown) (unknown) Chloride (98-107) mmol/L (units unknown) (unknown) (unknown) (no date) (unknown) (unknown) Chloride 106 (98-107 ) mmol/L (units unknown) (unknown) (unknown) (no date) (unknown) (unknown) Complete Blood Count AUTO DIFF Stat (units unknown) (unknown) (unknown) (no date) (unknown) (unknown) Comprehensive Metabolic Panel Stat (units unknown) (unknown) (unknown) (no date) (unknown) (unknown) Course of care: Patient was asking for pain medication prior to giving her (units unknown) (unknown) (unknown) (no date) (unknown) (unknown) Course (units unknown) (unknown) (unknown) (no date) (unknown) (unknown) Creatinine (0.52-1.04) mg/dL (units unknown) (unknown) (unknown) (no date) (unknown) (unknown) Creatinine 0.62 (0.52-1.04) mg/dL (units unknown) (unknown) (unknown) (no date) (unknown) (unknown) Cyclic vomiting syndrome (units unknown) (unknown) (unknown) (no date) (unknown) (unknown) DKA (diabetic ketoacidoses) (units unknown) (unknown) (unknown) (no date) (unknown) (unknown) : 1995 Acct:[id number] (units unknown) (unknown) (unknown) (no date) (unknown) (unknown) Date of Service: 08/10/22 (units unknown) (unknown) (unknown) (no date) (unknown) (unknown) Departure (units unknown) (unknown) (unknown) (no date) (unknown) (unknown) Diabetes mellitus, type I (units unknown) (unknown) (unknown) (no date) (unknown) (unknown) Discharge Plan (units unknown) (unknown) (unknown) (no date) (unknown) (unknown) Discontinued Medications (units unknown) (unknown) (unknown) (no date) (unknown) (unknown) Documented By: RL (units unknown) (unknown) (unknown) (no date) (unknown) (unknown) Dose Instruction: (units unknown) (unknown) (unknown) (no date) (unknown) (unknown) ED Orders (units unknown) (unknown) (unknown) (no date) (unknown) (unknown) EKG-12 Lead Stat (units unknown) (unknown) (unknown) (no date) (unknown) (unknown) ER Physician: Karol Ramos (units unknown) (unknown) (unknown) (no date) (unknown) (unknown) Emergency Report (units unknown) (unknown) (unknown) (no date) (unknown) (unknown) Eos # (Auto) (0-450) /uL (units unknown) (unknown) (unknown) (no date) (unknown) (unknown) Eos # (Auto) 0 (0-450) /uL (units unknown) (unknown) (unknown) (no date) (unknown) (unknown) Eos % (Auto) (2-4) % (units unknown) (unknown) (unknown) (no date) (unknown) (unknown) Eos % (Auto) 0.0 L (2-4) % (units unknown) (unknown) (unknown) (no date) (unknown) (unknown) Estimated GFR > 60 (>60) mL/min (units unknown) (unknown) (unknown) (no date) (unknown) (unknown) Estimated GFR (>60) mL/min (units unknown) (unknown) (unknown) (no date) (unknown) (unknown) Exam (units unknown) (unknown) (unknown) (no date) (unknown) (unknown) Family History (units unknown) (unknown) (unknown) (no date) (unknown) (unknown) Father Healthy adult (units unknown) (unknown) (unknown) (no date) (unknown) (unknown) FiO2 21 (units unknown) (unknown) (unknown) (no date) (unknown) (unknown) FiO2 (units unknown) (unknown) (unknown) (no date) (unknown) (unknown) Gastroparesis (units unknown) (unknown) (unknown) (no date) (unknown) (unknown) General (units unknown) (unknown) (unknown) (no date) (unknown) (unknown) Globulin (1.7-4.1) g/dL (units unknown) (unknown) (unknown) (no date) (unknown) (unknown) Globulin 3.7 (1.7-4.1) g/dL (units unknown) (unknown) (unknown) (no date) (unknown) (unknown) Glucose (70-100) mg/dL (units unknown) (unknown) (unknown) (no date) (unknown) (unknown) Glucose 221 H (70-100) mg/dL (units unknown) (unknown) (unknown) (no date) (unknown) (unknown) Glucose POC 350 (units unknown) (unknown) (unknown) (no date) (unknown) (unknown) HPI - Nausea/Vomiting/Diarr hea (units unknown) (unknown) (unknown) (no date) (unknown) (unknown) HPI Narrative: (units unknown) (unknown) (unknown) (no date) (unknown) (unknown) Hct (36-46) % (units unknown) (unknown) (unknown) (no date) (unknown) (unknown) Hct 37.5 (36-46) % (units unknown) (unknown) (unknown) (no date) (unknown) (unknown) Hgb (12.0-16.0) g/dL (units unknown) (unknown) (unknown) (no date) (unknown) (unknown) Hgb 12.4 (12.0-16.0) g/dL (units unknown) (unknown) (unknown) (no date) (unknown) (unknown) History of Present Illness (units unknown) (unknown) (unknown) (no date) (unknown) (unknown) Home Medications (units unknown) (unknown) (unknown) (no date) (unknown) (unknown) Delonte Trevino MD [Primary Care Provider] (units unknown) (unknown) (unknown) (no date) (unknown) (unknown) Hydromorphone HCl (Hydromorphone 0.5 Mg Inj) 0.5 mg IV NOW ONE (units unknown) (unknown) (unknown) (no date) (unknown) (unknown) I have independently reviewed the patient's vital signs and nursing notes as (units unknown) (unknown) (unknown) (no date) (unknown) (unknown) INR (0.9-1.3) (units unknown) (unknown) (unknown) (no date) (unknown) (unknown) INR 1.3 (0.9-1.3) (units unknown) (unknown) (unknown) (no date) (unknown) (unknown) Independent historian: Patient and her sister Celsa (units unknown) (unknown) (unknown) (no date) (unknown) (unknown) Initial Vital Signs (units unknown) (unknown) (unknown) (no date) (unknown) (unknown) Initial Vital Signs: (units unknown) (unknown) (unknown) (no date) (unknown) (unknown) Insulin dependent diabetes mellitus (units unknown) (unknown) (unknown) (no date) (unknown) (unknown) [address] [address] (units unknown) (unknown) (unknown) (no date) (unknown) (unknown) Ketones (<0.27) mmol/L (units unknown) (unknown) (unknown) (no date) (unknown) (unknown) Ketones (Beta-Hydroxybutyrate ) Stat (units unknown) (unknown) (unknown) (no date) (unknown) (unknown) Ketones 1.46 H (<0.27) mmol/L (units unknown) (unknown) (unknown) (no date) (unknown) (unknown) Lab Data (units unknown) (unknown) (unknown) (no date) (unknown) (unknown) Lab Results (units unknown) (unknown) (unknown) (no date) (unknown) (unknown) Labs: (units unknown) (unknown) (unknown) (no date) (unknown) (unknown) Lactate (0.7-2.1) mmol/L (units unknown) (unknown) (unknown) (no date) (unknown) (unknown) Lactate (Lactic Acid ) Stat (units unknown) (unknown) (unknown) (no date) (unknown) (unknown) Lactate 2.8 H (0.7-2.1) mmol/L (units unknown) (unknown) (unknown) (no date) (unknown) (unknown) Last Admin: 08/10/22 15:07 Dose: 1,000 mls/hr (units unknown) (unknown) (unknown) (no date) (unknown) (unknown) Last Admin: 08/10/22 15:09 Dose: 4 mg (units unknown) (unknown) (unknown) (no date) (unknown) (unknown) Lipase (23-300) U/L (units unknown) (unknown) (unknown) (no date) (unknown) (unknown) Lipase 16 L (23-300) U/L (units unknown) (unknown) (unknown) (no date) (unknown) (unknown) Lipase Stat (units unknown) (unknown) (unknown) (no date) (unknown) (unknown) Lymph # (Auto) (0044-3674) /uL (units unknown) (unknown) (unknown) (no date) (unknown) (unknown) Lymph # (Auto) 1000 L (8022-5194) /uL (units unknown) (unknown) (unknown) (no date) (unknown) (unknown) Lymph % (Auto) (25-40) % (units unknown) (unknown) (unknown) (no date) (unknown) (unknown) Lymph % (Auto) 5.1 L (25-40) % (units unknown) (unknown) (unknown) (no date) (unknown) (unknown) MCH (26-34) PG (units unknown) (unknown) (unknown) (no date) (unknown) (unknown) MCH 25.6 L (26-34) PG (units unknown) (unknown) (unknown) (no date) (unknown) (unknown) MCHC (30-36) % (units unknown) (unknown) (unknown) (no date) (unknown) (unknown) MCHC 33.1 (30-36) % (units unknown) (unknown) (unknown) (no date) (unknown) (unknown) MCV (80-100) fL (units unknown) (unknown) (unknown) (no date) (unknown) (unknown) MCV 77.3 L (80-100) fL (units unknown) (unknown) (unknown) (no date) (unknown) (unknown) MDM - Nausea/Vomiting/Diarr hea (units unknown) (unknown) (unknown) (no date) (unknown) (unknown) MDM Narrative (units unknown) (unknown) (unknown) (no date) (unknown) (unknown) Medical History (units unknown) (unknown) (unknown) (no date) (unknown) (unknown) Medical decision making narrative: (units unknown) (unknown) (unknown) (no date) (unknown) (unknown) Medication Instructions Recorded Confirmed (units unknown) (unknown) (unknown) (no date) (unknown) (unknown) Medication Instructions Recorded (units unknown) (unknown) (unknown) (no date) (unknown) (unknown) Migraine headache with aura (units unknown) (unknown) (unknown) (no date) (unknown) (unknown) Mode of arrival: Family Vehicle (units unknown) (unknown) (unknown) (no date) (unknown) (unknown) [place] # (Auto) (0-900 ) /uL (units unknown) (unknown) (unknown) (no date) (unknown) (unknown) [place] # (Auto) 400 (0-900) /uL (units unknown) (unknown) (unknown) (no date) (unknown) (unknown) [place] % (Auto) (3-14) % (units unknown) (unknown) (unknown) (no date) (unknown) (unknown) [place] % (Auto) 1.8 L (3-14) % (units unknown) (unknown) (unknown) (no date) (unknown) (unknown) Mother Hypertension (units unknown) (unknown) (unknown) (no date) (unknown) (unknown) Multiple etiologies for patient's symptoms considered including, but not limited (units unknown) (unknown) (unknown) (no date) (unknown) (unknown) My interpretation of imaging: (units unknown) (unknown) (unknown) (no date) (unknown) (unknown) My interpretation of lab studies: CBC is elevated at 20 with mild (units unknown) (unknown) (unknown) (no date) (unknown) (unknown) Myopia (units unknown) (unknown) (unknown) (no date) (unknown) (unknown) NAUSEA OR VOMITING (units unknown) (unknown) (unknown) (no date) (unknown) (unknown) Neut # (Auto) (2050-0412) /uL (units unknown) (unknown) (unknown) (no date) (unknown) (unknown) Neut # (Auto) 09067 H (1548-7292) /uL (units unknown) (unknown) (unknown) (no date) (unknown) (unknown) Neut % (Auto) (50-75 ) % (units unknown) (unknown) (unknown) (no date) (unknown) (unknown) Neut % (Auto) 93.0 H (50-75) % (units unknown) (unknown) (unknown) (no date) (unknown) (unknown) No Action (units unknown) (unknown) (unknown) (no date) (unknown) (unknown) Ondansetron HCl (Ondansetron 4 Mg Odt) 4 mg SL NOW PRN (units unknown) (unknown) (unknown) (no date) (unknown) (unknown) Ondansetron HCl (Ondansetron 4 Mg/2 Ml Inj) 4 mg IV NOW PRN (units unknown) (unknown) (unknown) (no date) (unknown) (unknown) Ordered: (units unknown) (unknown) (unknown) (no date) (unknown) (unknown) Orders (units unknown) (unknown) (unknown) (no date) (unknown) (unknown) Oxygen Delivery Method Room Air 08/10/22 14:28 (units unknown) (unknown) (unknown) (no date) (unknown) (unknown) Oxygen Delivery Method Room Air (units unknown) (unknown) (unknown) (no date) (unknown) (unknown) Oxygen Delivery Method (units unknown) (unknown) (unknown) (no date) (unknown) (unknown) PRN Reason: Nausea And Vomiting (units unknown) (unknown) (unknown) (no date) (unknown) (unknown) PT (10.1-12.7) SECONDS (units unknown) (unknown) (unknown) (no date) (unknown) (unknown) PT 14.5 H (10.1-12.7 ) SECONDS (units unknown) (unknown) (unknown) (no date) (unknown) (unknown) PTT Partial Thromboplastin Sonny Stat (units unknown) (unknown) (unknown) (no date) (unknown) (unknown) Pancreatitis (units unknown) (unknown) (unknown) (no date) (unknown) (unknown) Patient Comments: (units unknown) (unknown) (unknown) (no date) (unknown) (unknown) Patient History (units unknown) (unknown) (unknown) (no date) (unknown) (unknown) Patient is appropriate for outpatient management. (units unknown) (unknown) (unknown) (no date) (unknown) (unknown) Patient: Kaur Horton MR (units unknown) (unknown) (unknown) (no date) (unknown) (unknown) Plt Count (150-400) X103/uL (units unknown) (unknown) (unknown) (no date) (unknown) (unknown) Plt Count 327 (150-400) X103/uL (units unknown) (unknown) (unknown) (no date) (unknown) (unknown) Point of Care Testing (units unknown) (unknown) (unknown) (no date) (unknown) (unknown) Potassium (3.4-5.1) mmol/L (units unknown) (unknown) (unknown) (no date) (unknown) (unknown) Potassium 4.1 (3.4-5.1) mmol/L (units unknown) (unknown) (unknown) (no date) (unknown) (unknown) Prescriptions: (units unknown) (unknown) (unknown) (no date) (unknown) (unknown) Previous Rx's (units unknown) (unknown) (unknown) (no date) (unknown) (unknown) Procalcitonin (<0.5) ng/mL (units unknown) (unknown) (unknown) (no date) (unknown) (unknown) Procalcitonin 0.34 (<0.5) ng/mL (units unknown) (unknown) (unknown) (no date) (unknown) (unknown) Procalcitonin Stat (units unknown) (unknown) (unknown) (no date) (unknown) (unknown) Prothrombin Time INR Stat (units unknown) (unknown) (unknown) (no date) (unknown) (unknown) Pulse Oximetry 98 (units unknown) (unknown) (unknown) (no date) (unknown) (unknown) Pulse Oximetry 99 08/10/22 14:28 (units unknown) (unknown) (unknown) (no date) (unknown) (unknown) Pulse Oximetry 99 98 (units unknown) (unknown) (unknown) (no date) (unknown) (unknown) Pulse Rate 103 H (units unknown) (unknown) (unknown) (no date) (unknown) (unknown) Pulse Rate 106 H 08/10/22 14:28 (units unknown) (unknown) (unknown) (no date) (unknown) (unknown) Pulse Rate 106 H 110 H (units unknown) (unknown) (unknown) (no date) (unknown) (unknown) Questions are addressed and there is agreement with the plan and for follow-up. (units unknown) (unknown) (unknown) (no date) (unknown) (unknown) RBC (4.0-5.2) X106/uL (units unknown) (unknown) (unknown) (no date) (unknown) (unknown) RBC 4.85 (4.0-5.2) X106/uL (units unknown) (unknown) (unknown) (no date) (unknown) (unknown) RDW (11.6-14.8) % (units unknown) (unknown) (unknown) (no date) (unknown) (unknown) RDW 15.7 H (11.6-14.8) % (units unknown) (unknown) (unknown) (no date) (unknown) (unknown) RT Consult Eval and Treat NOW (units unknown) (unknown) (unknown) (no date) (unknown) (unknown) Referrals: (units unknown) (unknown) (unknown) (no date) (unknown) (unknown) Related Data (units unknown) (unknown) (unknown) (no date) (unknown) (unknown) Respiratory Rate 22 08/10/22 14:28 (units unknown) (unknown) (unknown) (no date) (unknown) (unknown) Respiratory Rate 22 (units unknown) (unknown) (unknown) (no date) (unknown) (unknown) Respiratory Rate 24 (units unknown) (unknown) (unknown) (no date) (unknown) (unknown) Rx Instructions: (units unknown) (unknown) (unknown) (no date) (unknown) (unknown) See Rx Instructions .ROUTE .COMPLEX Qty: 473 0RF (units unknown) (unknown) (unknown) (no date) (unknown) (unknown) See Rx Instructions .ROUTE .MEDSUPPLY Qty: 500 1RF (units unknown) (unknown) (unknown) (no date) (unknown) (unknown) See Rx Instructions PO .COMPLEX Qty: 60 0RF (units unknown) (unknown) (unknown) (no date) (unknown) (unknown) Signed By: (units unknown) (unknown) (unknown) (no date) (unknown) (unknown) Smoking Status: Current every day smoker (units unknown) (unknown) (unknown) (no date) (unknown) (unknown) Social History (units unknown) (unknown) (unknown) (no date) (unknown) (unknown) Social consideration s that may affect disposition: none (units unknown) (unknown) (unknown) (no date) (unknown) (unknown) Sodium (137-145) mmol/L (units unknown) (unknown) (unknown) (no date) (unknown) (unknown) Sodium 142 (137-145) mmol/L (units unknown) (unknown) (unknown) (no date) (unknown) (unknown) Sodium Chloride (Normal Saline 0.9%) 1,000 mls @ 1,000 mls/hr IV BOLUS ONE (units unknown) (unknown) (unknown) (no date) (unknown) (unknown) Source: patient and family (units unknown) (unknown) (unknown) (no date) (unknown) (unknown) Stated complaint: pain all over body,vomiting (units unknown) (unknown) (unknown) (no date) (unknown) (unknown) Status post appendectomy (units unknown) (unknown) (unknown) (no date) (unknown) (unknown) Stop: 08/10/22 15:39 (units unknown) (unknown) (unknown) (no date) (unknown) (unknown) Stop: 08/10/22 16:39 (units unknown) (unknown) (unknown) (no date) (unknown) (unknown) Stop: 08/10/22 16:47 (units unknown) (unknown) (unknown) (no date) (unknown) (unknown) Stop: 08/10/22 17:45 (units unknown) (unknown) (unknown) (no date) (unknown) (unknown) Substance Use Type: marijuana (units unknown) (unknown) (unknown) (no date) (unknown) (unknown) Surgical History (units unknown) (unknown) (unknown) (no date) (unknown) (unknown) TAKE 10 MG (10ML) BY MOUTH EVERY 6 HOURS NEEDED FOR NAUSEA AND VOMITING (units unknown) (unknown) (unknown) (no date) (unknown) (unknown) TAKE 10 MG (10ML) BY MOUTH EVERY 6 HOURS NEEDED FOR NAUSEA AND VOMITING. (units unknown) (unknown) (unknown) (no date) (unknown) (unknown) Temperature 97.9 F 08/10/22 14:28 (units unknown) (unknown) (unknown) (no date) (unknown) (unknown) Temperature 97.9 F (units unknown) (unknown) (unknown) (no date) (unknown) (unknown) Temperature (units unknown) (unknown) (unknown) (no date) (unknown) (unknown) Thiamine HCl 100 mg/ Sodium (Chloride) 101 mls @ 404 mls/hr IV NOW ONE (units unknown) (unknown) (unknown) (no date) (unknown) (unknown) This is a 27-year-ol d female with history of type 1 diabetes, cyclic vomiting (units unknown) (unknown) (unknown) (no date) (unknown) (unknown) Time Seen by Provider: 08/10/22 16:38 (units unknown) (unknown) (unknown) (no date) (unknown) (unknown) Total Bilirubin (0.2-1.3) mg/dL (units unknown) (unknown) (unknown) (no date) (unknown) (unknown) Total Bilirubin 0.7 (0.2-1.3) mg/dL (units unknown) (unknown) (unknown) (no date) (unknown) (unknown) Total Protein (6.3-8.2) g/dL (units unknown) (unknown) (unknown) (no date) (unknown) (unknown) Total Protein 8.9 H (6.3-8.2) g/dL (units unknown) (unknown) (unknown) (no date) (unknown) (unknown) U-100 Insulin aspart) (units unknown) (unknown) (unknown) (no date) (unknown) (unknown) UNWRAP AND INSERT 1 SUPPOSITORY RECTALLY EVERY 4 TO 6 HOURS NEEDED FOR (units unknown) (unknown) (unknown) (no date) (unknown) (unknown) Urine Microscopic Stat (units unknown) (unknown) (unknown) (no date) (unknown) (unknown) VBG Base Excess (0-4 ) mmol/L (units unknown) (unknown) (unknown) (no date) (unknown) (unknown) VBG Base Excess -3.0 L (0-4) mmol/L (units unknown) (unknown) (unknown) (no date) (unknown) (unknown) VBG HCO3 (24-28) mmol/L (units unknown) (unknown) (unknown) (no date) (unknown) (unknown) VBG HCO3 22 L (24-28 ) mmol/L (units unknown) (unknown) (unknown) (no date) (unknown) (unknown) VBG O2 Saturation (70-75) % (units unknown) (unknown) (unknown) (no date) (unknown) (unknown) VBG O2 Saturation 88 H (70-75) % (units unknown) (unknown) (unknown) (no date) (unknown) (unknown) VBG Total CO2 (24-29 ) mmol/L (units unknown) (unknown) (unknown) (no date) (unknown) (unknown) VBG Total CO2 23 L (24-29) mmol/L (units unknown) (unknown) (unknown) (no date) (unknown) (unknown) VBG pCO2 (45-50) mmHg (units unknown) (unknown) (unknown) (no date) (unknown) (unknown) VBG pCO2 36.2 L (45-50) mmHg (units unknown) (unknown) (unknown) (no date) (unknown) (unknown) VBG pH (7.33-7.43) (units unknown) (unknown) (unknown) (no date) (unknown) (unknown) VBG pH 7.38 (7.33-7.43) (units unknown) (unknown) (unknown) (no date) (unknown) (unknown) VBG pO2 (35-45) mmHg (units unknown) (unknown) (unknown) (no date) (unknown) (unknown) VBG pO2 56 H (35-45) mmHg (units unknown) (unknown) (unknown) (no date) (unknown) (unknown) Venous Blood Gas Stat (units unknown) (unknown) (unknown) (no date) (unknown) (unknown) Vital Signs - 8 hr (units unknown) (unknown) (unknown) (no date) (unknown) (unknown) Vital Signs (units unknown) (unknown) (unknown) (no date) (unknown) (unknown) Vital signs: (units unknown) (unknown) (unknown) (no date) (unknown) (unknown) WBC (4.5-11.0) X103/uL (units unknown) (unknown) (unknown) (no date) (unknown) (unknown) WBC 20.0 H (4.5-11.0 ) X103/uL (units unknown) (unknown) (unknown) (no date) (unknown) (unknown) WITH MIGRAINE. (units unknown) (unknown) (unknown) (no date) (unknown) (unknown) [Embedded Image Not Available] (units unknown) (unknown) (unknown) (no date) (unknown) (unknown) alcohol intake frequency: holidays/special occasions only (units unknown) (unknown) (unknown) (no date) (unknown) (unknown) alcohol intake: never (units unknown) (unknown) (unknown) (no date) (unknown) (unknown) culture from 11/14/2021 grew Staph lugdunensis which was fully susceptible, she (units unknown) (unknown) (unknown) (no date) (unknown) (unknown) emergency department today for intractable vomiting with nausea. (units unknown) (unknown) (unknown) (no date) (unknown) (unknown) epidermis which had full susceptibility as well (units unknown) (unknown) (unknown) (no date) (unknown) (unknown) evaluation, she ende d up having an elevated lactate, her nausea vomiting has (units unknown) (unknown) (unknown) (no date) (unknown) (unknown) hemoconcentration compared with prior lab work, there is a left shift however (units unknown) (unknown) (unknown) (no date) (unknown) (unknown) household members: spouse (units unknown) (unknown) (unknown) (no date) (unknown) (unknown) improved, ask her to leave a urine sample, she is currently in the bathroom, (units unknown) (unknown) (unknown) (no date) (unknown) (unknown) insulin aspart U-100 100 unit/mL 1 sliding scale dose SUBCUT 10/04/21 (units unknown) (unknown) (unknown) (no date) (unknown) (unknown) insulin aspart U-100 [Novolog U-100 Insulin aspart] 100 unit/mL solution (units unknown) (unknown) (unknown) (no date) (unknown) (unknown) insulin syringes (disposable) 1 mL #500 ea 08/04/20 (units unknown) (unknown) (unknown) (no date) (unknown) (unknown) insulin, she took he r insulin 4 units via her insulin pump for a blood sugar of (units unknown) (unknown) (unknown) (no date) (unknown) (unknown) is also had group B strep UTI from 10/06/2021, UA from 06/27/2021 grew staph (units unknown) (unknown) (unknown) (no date) (unknown) (unknown) ketorolac [From Toradol] Allergy Verified 08/10/22 14:43 (units unknown) (unknown) (unknown) (no date) (unknown) (unknown) metoclopramide HCl 5 mg/5 mL oral See Rx Instructions .Route 01/28/22 (units unknown) (unknown) (unknown) (no date) (unknown) (unknown) metoclopramide HCl 5 mg/5 mL solution (units unknown) (unknown) (unknown) (no date) (unknown) (unknown) normal potassium level, bilateral CVA tenderness concerning for pyelonephritis (units unknown) (unknown) (unknown) (no date) (unknown) (unknown) pantoprazole 40 mg tablet,delayed 40 mg PO BID #30 tabs 02/07/22 (units unknown) (unknown) (unknown) (no date) (unknown) (unknown) pantoprazole 40 mg tablet,delayed release (DR/EC) (units unknown) (unknown) (unknown) (no date) (unknown) (unknown) patient is dehydrated, VBG pH of 7.38 with a pCO2 of 36.2, PO2 of 56, bicarb of (units unknown) (unknown) (unknown) (no date) (unknown) (unknown) procalcitonin, blood cultures are pending (units unknown) (unknown) (unknown) (no date) (unknown) (unknown) promethazine 25 mg rectal 25 mg PA Q4-6H PRN Nausea And 01/27/22 02/07/22 (units unknown) (unknown) (unknown) (no date) (unknown) (unknown) promethazine [Promethegan] 25 mg suppository (units unknown) (unknown) (unknown) (no date) (unknown) (unknown) related to urinary tract infection. We will follow-up on UA, added on (units unknown) (unknown) (unknown) (no date) (unknown) (unknown) release (units unknown) (unknown) (unknown) (no date) (unknown) (unknown) rizatriptan 10 mg tablet (Maxalt) See Rx Instructions PO .COMPLEX 01/29/22 (units unknown) (unknown) (unknown) (no date) (unknown) (unknown) rizatriptan [Maxalt] 10 mg tablet (units unknown) (unknown) (unknown) (no date) (unknown) (unknown) solution .COMPLEX #473 mL (units unknown) (unknown) (unknown) (no date) (unknown) (unknown) subcutaneous solutio n (Novolog USEASDIRECTD #10 mL (units unknown) (unknown) (unknown) (no date) (unknown) (unknown) suppository (Promethegan) Vomiting (units unknown) (unknown) (unknown) (no date) (unknown) (unknown) syndrome, gastroparesis, DKA, appendectomy, pancreatitis who presents to the (units unknown) (unknown) (unknown) (no date) (unknown) (unknown) take 1 tab at onset of headache; if no relief may repeat 1 tab after at least (units unknown) (unknown) (unknown) (no date) (unknown) (unknown) to: UTI, pyelonephritis, nephrolithiasis (units unknown) (unknown) (unknown) (no date) (unknown) (unknown) tobacco type: vaping (units unknown) (unknown) (unknown) (no date) (unknown) (unknown) well as prior record s if available. Pertinent records include: Prior urine (units unknown) (unknown) (unknown) (no date) (unknown) (unknown) will treat her lacti c acidosis with a secondary L of normal saline, she has a (units unknown) (unknown) Result panel [id number] (unknown) (no date) (unknown) (unknown) 0-1 /HPF (units unknown) (unknown) (unknown) (no date) (unknown) (unknown) 1 (units unknown) (unknown) (unknown) (no date) (unknown) (unknown) 1-5/HPF (units unknown) (unknown) (unknown) (no date) (unknown) (unknown) 1-5/LPF (units unknown) (unknown) (unknown) (no date) (unknown) (unknown) 5-10/HPF (units unknown) (unknown) (unknown) (no date) (unknown) (unknown) Many (>30) (units unknown) (unknown) (unknown) (no date) (unknown) (unknown) None Seen (units unknown) (unknown) (unknown) (no date) (unknown) (unknown) None Seen (units unknown) (unknown) Result panel [id number] (unknown) (no date) (unknown) (unknown) (no value) (units unknown) (unknown) (unknown) (no date) (unknown) (unknown) #60 tabs (units unknown) (unknown) (unknown) (no date) (unknown) (unknown) #: [id number] (units unknown) (unknown) (unknown) (no date) (unknown) (unknown) (Bactrim DS) (units unknown) (unknown) (unknown) (no date) (unknown) (unknown) (DME) insulin syringes (disposable) 1 mL syringe (units unknown) (unknown) (unknown) (no date) (unknown) (unknown) *If you do not have a primary care provider please contact [phone] to (units unknown) (unknown) (unknown) (no date) (unknown) (unknown) *Please call and schedule follow up with your primary care provider in 2-3 days, (units unknown) (unknown) (unknown) (no date) (unknown) (unknown) *Please continue to take your regular medications as directed. (units unknown) (unknown) (unknown) (no date) (unknown) (unknown) *Return to the Emergency Department for worsening symptoms, inability to keep (units unknown) (unknown) (unknown) (no date) (unknown) (unknown) *What to do: (units unknown) (unknown) (unknown) (no date) (unknown) (unknown) *You have been diagnosed with urinary tract infection with concern for kidney (units unknown) (unknown) (unknown) (no date) (unknown) (unknown) 08/10/22 08/10/22 08/10/22 Range/Units (units unknown) (unknown) (unknown) (no date) (unknown) (unknown) 08/10/22 08/10/22 Range/Units (units unknown) (unknown) (unknown) (no date) (unknown) (unknown) 08/10/22 14:40 (units unknown) (unknown) (unknown) (no date) (unknown) (unknown) 08/10/22 14:50 (units unknown) (unknown) (unknown) (no date) (unknown) (unknown) 08/10/22 15:40 (units unknown) (unknown) (unknown) (no date) (unknown) (unknown) 08/10/22 15:45 (units unknown) (unknown) (unknown) (no date) (unknown) (unknown) 08/10/22 17:06 (units unknown) (unknown) (unknown) (no date) (unknown) (unknown) 08/10/22 17:45 (units unknown) (unknown) (unknown) (no date) (unknown) (unknown) 08/10/22 (units unknown) (unknown) (unknown) (no date) (unknown) (unknown) 1 sliding scale dose SUBCUT USEASDIRECTD Qty: 10 3RF (units unknown) (unknown) (unknown) (no date) (unknown) (unknown) 1 tab PO BID 10 Days Qty: 20 0RF (units unknown) (unknown) (unknown) (no date) (unknown) (unknown) 12.5 mg PO BID PRN (Reason: sedation) Qty: 14 0RF (units unknown) (unknown) (unknown) (no date) (unknown) (unknown) 14:28 08/10/22 (units unknown) (unknown) (unknown) (no date) (unknown) (unknown) 14:50 14:50 14:50 (units unknown) (unknown) (unknown) (no date) (unknown) (unknown) 15:45 17:06 (units unknown) (unknown) (unknown) (no date) (unknown) (unknown) 16:04 08/10/22 (units unknown) (unknown) (unknown) (no date) (unknown) (unknown) 16:14 (units unknown) (unknown) (unknown) (no date) (unknown) (unknown) 2 hrs; max = 3 tabs/24 hr PO (units unknown) (unknown) (unknown) (no date) (unknown) (unknown) 22, total CO2 of 23, O2 sat of 88 and base excess of -3 on room air, urine (units unknown) (unknown) (unknown) (no date) (unknown) (unknown) 25 mg PA Q4-6H PRN (Reason: Nausea And Vomiting) (units unknown) (unknown) (unknown) (no date) (unknown) (unknown) 332 on her personal CGM. Patient received 1 L normal saline prior to my (units unknown) (unknown) (unknown) (no date) (unknown) (unknown) 40 mg PO BID Qty: 30 0RF (units unknown) (unknown) (unknown) (no date) (unknown) (unknown) ALT (<35) IU/L (units unknown) (unknown) (unknown) (no date) (unknown) (unknown) ALT 19 (<35) IU/L (units unknown) (unknown) (unknown) (no date) (unknown) (unknown) APTT (26-36) SECONDS (units unknown) (unknown) (unknown) (no date) (unknown) (unknown) APTT 29 (26-36) SECONDS (units unknown) (unknown) (unknown) (no date) (unknown) (unknown) AST (14-36) IU/L (units unknown) (unknown) (unknown) (no date) (unknown) (unknown) AST 27 (14-36) IU/L (units unknown) (unknown) (unknown) (no date) (unknown) (unknown) Activity Restrictions/Addition al Instructions: (units unknown) (unknown) (unknown) (no date) (unknown) (unknown) Age/Sex: 27 / F (units unknown) (unknown) (unknown) (no date) (unknown) (unknown) Albumin (3.5-5.0) g/dL (units unknown) (unknown) (unknown) (no date) (unknown) (unknown) Albumin 5.2 H (3.5-5.0) g/dL (units unknown) (unknown) (unknown) (no date) (unknown) (unknown) Albumin/Globulin Ratio (1.0-2.8) (units unknown) (unknown) (unknown) (no date) (unknown) (unknown) Albumin/Globulin Ratio 1.4 (1.0-2.8) (units unknown) (unknown) (unknown) (no date) (unknown) (unknown) Alkaline Phosphatase (38-126) U/L (units unknown) (unknown) (unknown) (no date) (unknown) (unknown) Alkaline Phosphatase 130 H (38-126) U/L (units unknown) (unknown) (unknown) (no date) (unknown) (unknown) Allergies (units unknown) (unknown) (unknown) (no date) (unknown) (unknown) Allergy/AdvReac Type Severity Reaction Status Date / Time (units unknown) (unknown) (unknown) (no date) (unknown) (unknown) Amoxicillin/Clavulan a te Potassium (Amoxicillin/Clav 875/125 Mg) 1 tab PO NOW (units unknown) (unknown) (unknown) (no date) (unknown) (unknown) Anemia (units unknown) (unknown) (unknown) (no date) (unknown) (unknown) As directed for use with insulin injections (units unknown) (unknown) (unknown) (no date) (unknown) (unknown) BMP [Basic Metabolic Panel] Stat (units unknown) (unknown) (unknown) (no date) (unknown) (unknown) BUN (7-17) mg/dL (units unknown) (unknown) (unknown) (no date) (unknown) (unknown) BUN 21 H (7-17) mg/dL (units unknown) (unknown) (unknown) (no date) (unknown) (unknown) BUN/Creatinine Ratio (6-22) (units unknown) (unknown) (unknown) (no date) (unknown) (unknown) BUN/Creatinine Ratio 33.9 H (6-22) (units unknown) (unknown) (unknown) (no date) (unknown) (unknown) Baso # (Auto) (0-100 ) /uL (units unknown) (unknown) (unknown) (no date) (unknown) (unknown) Baso # (Auto) 0 (0-100) /uL (units unknown) (unknown) (unknown) (no date) (unknown) (unknown) Baso % (Auto) (0-2) % (units unknown) (unknown) (unknown) (no date) (unknown) (unknown) Baso % (Auto) 0.1 (0-2) % (units unknown) (unknown) (unknown) (no date) (unknown) (unknown) Bedside Urine Bilirubin - Negative (units unknown) (unknown) (unknown) (no date) (unknown) (unknown) Bedside Urine Glucos e 1000 mg/dl (units unknown) (unknown) (unknown) (no date) (unknown) (unknown) Bedside Urine Ketone +++ 80 (units unknown) (unknown) (unknown) (no date) (unknown) (unknown) Bedside Urine Leukocytes - Negative (units unknown) (unknown) (unknown) (no date) (unknown) (unknown) Bedside Urine Nitrit e + Positive (units unknown) (unknown) (unknown) (no date) (unknown) (unknown) Bedside Urine Occult Blood (units unknown) (unknown) (unknown) (no date) (unknown) (unknown) Bedside Urine Protei n + 30 (units unknown) (unknown) (unknown) (no date) (unknown) (unknown) Bedside Urine Urobilinogen - Negative (units unknown) (unknown) (unknown) (no date) (unknown) (unknown) Bedside Urine pH 6.0 (units unknown) (unknown) (unknown) (no date) (unknown) (unknown) Blood Culture Stat (units unknown) (unknown) (unknown) (no date) (unknown) (unknown) Blood Pressure 128/7 8 08/10/22 14:28 (units unknown) (unknown) (unknown) (no date) (unknown) (unknown) Blood Pressure 128/7 8 113/58 L (units unknown) (unknown) (unknown) (no date) (unknown) (unknown) Blood Pressure (units unknown) (unknown) (unknown) (no date) (unknown) (unknown) CBC No Diff [Complet e Blood Count NO DIFF] Stat (units unknown) (unknown) (unknown) (no date) (unknown) (unknown) Calcium (8.4-10.2) mg/dL (units unknown) (unknown) (unknown) (no date) (unknown) (unknown) Calcium 9.4 (8.4-10.2) mg/dL (units unknown) (unknown) (unknown) (no date) (unknown) (unknown) Carbon Dioxide (22-32) mmol/L (units unknown) (unknown) (unknown) (no date) (unknown) (unknown) Carbon Dioxide 21 L (22-32) mmol/L (units unknown) (unknown) (unknown) (no date) (unknown) (unknown) Ceftriaxone Sodium 1,000 mg/ (Sodium Chloride) 100 mls @ 200 mls/hr IV NOW ONE (units unknown) (unknown) (unknown) (no date) (unknown) (unknown) Chief Complaint: Nausea vomiting, type 1 diabetes (units unknown) (unknown) (unknown) (no date) (unknown) (unknown) Chief complaint: Nausea/Vomiting/Diarr hea (units unknown) (unknown) (unknown) (no date) (unknown) (unknown) Chloride (98-107) mmol/L (units unknown) (unknown) (unknown) (no date) (unknown) (unknown) Chloride 106 (98-107 ) mmol/L (units unknown) (unknown) (unknown) (no date) (unknown) (unknown) Clinical Impression: (units unknown) (unknown) (unknown) (no date) (unknown) (unknown) Complete Blood Count AUTO DIFF Stat (units unknown) (unknown) (unknown) (no date) (unknown) (unknown) Comprehensive Metabolic Panel Stat (units unknown) (unknown) (unknown) (no date) (unknown) (unknown) Course of care: Patient was asking for pain medication prior to giving her (units unknown) (unknown) (unknown) (no date) (unknown) (unknown) Course (units unknown) (unknown) (unknown) (no date) (unknown) (unknown) Creatinine (0.52-1.04) mg/dL (units unknown) (unknown) (unknown) (no date) (unknown) (unknown) Creatinine 0.62 (0.52-1.04) mg/dL (units unknown) (unknown) (unknown) (no date) (unknown) (unknown) Cyclic vomiting syndrome (units unknown) (unknown) (unknown) (no date) (unknown) (unknown) DKA (diabetic ketoacidoses) (units unknown) (unknown) (unknown) (no date) (unknown) (unknown) : 1995 Acct:[id number] (units unknown) (unknown) (unknown) (no date) (unknown) (unknown) Date of Service: 08/10/22 (units unknown) (unknown) (unknown) (no date) (unknown) (unknown) Departure (units unknown) (unknown) (unknown) (no date) (unknown) (unknown) Diabetes mellitus, type I (units unknown) (unknown) (unknown) (no date) (unknown) (unknown) Diazepam (Diazepam 1 0 Mg/2 Ml Syringe) 2 mg IV NOW ONE (units unknown) (unknown) (unknown) (no date) (unknown) (unknown) Discharge Plan (units unknown) (unknown) (unknown) (no date) (unknown) (unknown) Discontinued Medications (units unknown) (unknown) (unknown) (no date) (unknown) (unknown) Documented By: RL (units unknown) (unknown) (unknown) (no date) (unknown) (unknown) Dose Instruction: (units unknown) (unknown) (unknown) (no date) (unknown) (unknown) ED Orders (units unknown) (unknown) (unknown) (no date) (unknown) (unknown) EKG-12 Lead Stat (units unknown) (unknown) (unknown) (no date) (unknown) (unknown) ER Physician: Karol Ramos (units unknown) (unknown) (unknown) (no date) (unknown) (unknown) Emergency Report (units unknown) (unknown) (unknown) (no date) (unknown) (unknown) Eos # (Auto) (0-450) /uL (units unknown) (unknown) (unknown) (no date) (unknown) (unknown) Eos # (Auto) 0 (0-450) /uL (units unknown) (unknown) (unknown) (no date) (unknown) (unknown) Eos % (Auto) (2-4) % (units unknown) (unknown) (unknown) (no date) (unknown) (unknown) Eos % (Auto) 0.0 L (2-4) % (units unknown) (unknown) (unknown) (no date) (unknown) (unknown) Esterase (units unknown) (unknown) (unknown) (no date) (unknown) (unknown) Estimated GFR > 60 (>60) mL/min (units unknown) (unknown) (unknown) (no date) (unknown) (unknown) Estimated GFR (>60) mL/min (units unknown) (unknown) (unknown) (no date) (unknown) (unknown) Exam (units unknown) (unknown) (unknown) (no date) (unknown) (unknown) Family History (units unknown) (unknown) (unknown) (no date) (unknown) (unknown) Father Healthy adult (units unknown) (unknown) (unknown) (no date) (unknown) (unknown) FiO2 21 (units unknown) (unknown) (unknown) (no date) (unknown) (unknown) FiO2 (units unknown) (unknown) (unknown) (no date) (unknown) (unknown) Gastroparesis (units unknown) (unknown) (unknown) (no date) (unknown) (unknown) General (units unknown) (unknown) (unknown) (no date) (unknown) (unknown) Globulin (1.7-4.1) g/dL (units unknown) (unknown) (unknown) (no date) (unknown) (unknown) Globulin 3.7 (1.7-4.1) g/dL (units unknown) (unknown) (unknown) (no date) (unknown) (unknown) Glucose (70-100) mg/dL (units unknown) (unknown) (unknown) (no date) (unknown) (unknown) Glucose 221 H (70-100) mg/dL (units unknown) (unknown) (unknown) (no date) (unknown) (unknown) Glucose POC 350 (units unknown) (unknown) (unknown) (no date) (unknown) (unknown) HPI - Nausea/Vomiting/Diarr hea (units unknown) (unknown) (unknown) (no date) (unknown) (unknown) HPI Narrative: (units unknown) (unknown) (unknown) (no date) (unknown) (unknown) Hct (36-46) % (units unknown) (unknown) (unknown) (no date) (unknown) (unknown) Hct 37.5 (36-46) % (units unknown) (unknown) (unknown) (no date) (unknown) (unknown) Hgb (12.0-16.0) g/dL (units unknown) (unknown) (unknown) (no date) (unknown) (unknown) Hgb 12.4 (12.0-16.0) g/dL (units unknown) (unknown) (unknown) (no date) (unknown) (unknown) History of Present Illness (units unknown) (unknown) (unknown) (no date) (unknown) (unknown) Home Medications (units unknown) (unknown) (unknown) (no date) (unknown) (unknown) Delonte Trevino MD [Primary Care Provider] (units unknown) (unknown) (unknown) (no date) (unknown) (unknown) Hyaline Casts (None) (units unknown) (unknown) (unknown) (no date) (unknown) (unknown) Hyaline Casts 1-5/lp f (None) (units unknown) (unknown) (unknown) (no date) (unknown) (unknown) Hydromorphone HCl (Hydromorphone 0.5 Mg Inj) 0.5 mg IV NOW ONE (units unknown) (unknown) (unknown) (no date) (unknown) (unknown) I have independently reviewed the patient's vital signs and nursing notes as (units unknown) (unknown) (unknown) (no date) (unknown) (unknown) I hope that you can use medications to help keep your antibiotics down. I hope (units unknown) (unknown) (unknown) (no date) (unknown) (unknown) INR (0.9-1.3) (units unknown) (unknown) (unknown) (no date) (unknown) (unknown) INR 1.3 (0.9-1.3) (units unknown) (unknown) (unknown) (no date) (unknown) (unknown) Independent historian: Patient and her sister Celsa (units unknown) (unknown) (unknown) (no date) (unknown) (unknown) Initial Vital Signs (units unknown) (unknown) (unknown) (no date) (unknown) (unknown) Initial Vital Signs: (units unknown) (unknown) (unknown) (no date) (unknown) (unknown) Instructions: DI for Dehydration -- Adult, DI for Urinary Tract Infection (UTI) (units unknown) (unknown) (unknown) (no date) (unknown) (unknown) Insulin dependent diabetes mellitus (units unknown) (unknown) (unknown) (no date) (unknown) (unknown) [address] [address] (units unknown) (unknown) (unknown) (no date) (unknown) (unknown) Ketones (<0.27) mmol/L (units unknown) (unknown) (unknown) (no date) (unknown) (unknown) Ketones (Beta-Hydroxybutyrate ) Stat (units unknown) (unknown) (unknown) (no date) (unknown) (unknown) Ketones 1.46 H (<0.27) mmol/L (units unknown) (unknown) (unknown) (no date) (unknown) (unknown) Lab Data (units unknown) (unknown) (unknown) (no date) (unknown) (unknown) Lab Results (units unknown) (unknown) (unknown) (no date) (unknown) (unknown) Labs: (units unknown) (unknown) (unknown) (no date) (unknown) (unknown) Lactate (0.7-2.1) mmol/L (units unknown) (unknown) (unknown) (no date) (unknown) (unknown) Lactate (Lactic Acid ) Stat (units unknown) (unknown) (unknown) (no date) (unknown) (unknown) Lactate 2.8 H (0.7-2.1) mmol/L (units unknown) (unknown) (unknown) (no date) (unknown) (unknown) Last Admin: 08/10/22 15:07 Dose: 1,000 mls/hr (units unknown) (unknown) (unknown) (no date) (unknown) (unknown) Last Admin: 08/10/22 15:09 Dose: 4 mg (units unknown) (unknown) (unknown) (no date) (unknown) (unknown) Last Admin: 08/10/22 17:10 Dose: 0.5 mg (units unknown) (unknown) (unknown) (no date) (unknown) (unknown) Last Admin: 08/10/22 17:14 Dose: 10 mg (units unknown) (unknown) (unknown) (no date) (unknown) (unknown) Last Admin: 08/10/22 17:14 Dose: 404 mls/hr (units unknown) (unknown) (unknown) (no date) (unknown) (unknown) Last Admin: 08/10/22 17:16 Dose: 1,000 mls/hr (units unknown) (unknown) (unknown) (no date) (unknown) (unknown) Lipase (23-300) U/L (units unknown) (unknown) (unknown) (no date) (unknown) (unknown) Lipase 16 L (23-300) U/L (units unknown) (unknown) (unknown) (no date) (unknown) (unknown) Lipase Stat (units unknown) (unknown) (unknown) (no date) (unknown) (unknown) Lymph # (Auto) (1683-6156) /uL (units unknown) (unknown) (unknown) (no date) (unknown) (unknown) Lymph # (Auto) 1000 L (7157-4185) /uL (units unknown) (unknown) (unknown) (no date) (unknown) (unknown) Lymph % (Auto) (25-40) % (units unknown) (unknown) (unknown) (no date) (unknown) (unknown) Lymph % (Auto) 5.1 L (25-40) % (units unknown) (unknown) (unknown) (no date) (unknown) (unknown) MCH (26-34) PG (units unknown) (unknown) (unknown) (no date) (unknown) (unknown) MCH 25.6 L (26-34) PG (units unknown) (unknown) (unknown) (no date) (unknown) (unknown) MCHC (30-36) % (units unknown) (unknown) (unknown) (no date) (unknown) (unknown) MCHC 33.1 (30-36) % (units unknown) (unknown) (unknown) (no date) (unknown) (unknown) MCV (80-100) fL (units unknown) (unknown) (unknown) (no date) (unknown) (unknown) MCV 77.3 L (80-100) fL (units unknown) (unknown) (unknown) (no date) (unknown) (unknown) MDM - Nausea/Vomiting/Diarr hea (units unknown) (unknown) (unknown) (no date) (unknown) (unknown) MDM Narrative (units unknown) (unknown) (unknown) (no date) (unknown) (unknown) Medical History (units unknown) (unknown) (unknown) (no date) (unknown) (unknown) Medical decision making narrative: (units unknown) (unknown) (unknown) (no date) (unknown) (unknown) Medication Instructions Recorded Confirmed (units unknown) (unknown) (unknown) (no date) (unknown) (unknown) Medication Instructions Recorded (units unknown) (unknown) (unknown) (no date) (unknown) (unknown) Metoclopramide HCl (Metoclopramide 10 Mg/2 Ml Inj) 10 mg IV NOW ONE (units unknown) (unknown) (unknown) (no date) (unknown) (unknown) Migraine headache with aura (units unknown) (unknown) (unknown) (no date) (unknown) (unknown) Mode of arrival: Family Vehicle (units unknown) (unknown) (unknown) (no date) (unknown) (unknown) [place] # (Auto) (0-900 ) /uL (units unknown) (unknown) (unknown) (no date) (unknown) (unknown) [place] # (Auto) 400 (0-900) /uL (units unknown) (unknown) (unknown) (no date) (unknown) (unknown) [place] % (Auto) (3-14) % (units unknown) (unknown) (unknown) (no date) (unknown) (unknown) [place] % (Auto) 1.8 L (3-14) % (units unknown) (unknown) (unknown) (no date) (unknown) (unknown) Mother Hypertension (units unknown) (unknown) (unknown) (no date) (unknown) (unknown) Multiple etiologies for patient's symptoms considered including, but not limited (units unknown) (unknown) (unknown) (no date) (unknown) (unknown) My interpretation of imaging: (units unknown) (unknown) (unknown) (no date) (unknown) (unknown) My interpretation of lab studies: CBC is elevated at 20 with mild (units unknown) (unknown) (unknown) (no date) (unknown) (unknown) Myopia (units unknown) (unknown) (unknown) (no date) (unknown) (unknown) NAUSEA OR VOMITING (units unknown) (unknown) (unknown) (no date) (unknown) (unknown) Nausea and vomiting (units unknown) (unknown) (unknown) (no date) (unknown) (unknown) Neut # (Auto) (4167-8417) /uL (units unknown) (unknown) (unknown) (no date) (unknown) (unknown) Neut # (Auto) 58623 H (3984-6314) /uL (units unknown) (unknown) (unknown) (no date) (unknown) (unknown) Neut % (Auto) (50-75 ) % (units unknown) (unknown) (unknown) (no date) (unknown) (unknown) Neut % (Auto) 93.0 H (50-75) % (units unknown) (unknown) (unknown) (no date) (unknown) (unknown) New (units unknown) (unknown) (unknown) (no date) (unknown) (unknown) No Action (units unknown) (unknown) (unknown) (no date) (unknown) (unknown) ONE (units unknown) (unknown) (unknown) (no date) (unknown) (unknown) Ondansetron HCl (Ondansetron 4 Mg Odt) 4 mg SL NOW PRN (units unknown) (unknown) (unknown) (no date) (unknown) (unknown) Ondansetron HCl (Ondansetron 4 Mg/2 Ml Inj) 4 mg IV NOW PRN (units unknown) (unknown) (unknown) (no date) (unknown) (unknown) Ordered: (units unknown) (unknown) (unknown) (no date) (unknown) (unknown) Orders (units unknown) (unknown) (unknown) (no date) (unknown) (unknown) Oxygen Delivery Method Room Air 08/10/22 14:28 (units unknown) (unknown) (unknown) (no date) (unknown) (unknown) Oxygen Delivery Method Room Air (units unknown) (unknown) (unknown) (no date) (unknown) (unknown) Oxygen Delivery Method (units unknown) (unknown) (unknown) (no date) (unknown) (unknown) PRN Reason: Nausea And Vomiting (units unknown) (unknown) (unknown) (no date) (unknown) (unknown) PT (10.1-12.7) SECONDS (units unknown) (unknown) (unknown) (no date) (unknown) (unknown) PT 14.5 H (10.1-12.7 ) SECONDS (units unknown) (unknown) (unknown) (no date) (unknown) (unknown) PTT Partial Thromboplastin Sonny Stat (units unknown) (unknown) (unknown) (no date) (unknown) (unknown) Pancreatitis (units unknown) (unknown) (unknown) (no date) (unknown) (unknown) Pantoprazole Sodium (Pantoprazole 40 Mg Vial) 40 mg IV NOW ONE (units unknown) (unknown) (unknown) (no date) (unknown) (unknown) Patient Comments: (units unknown) (unknown) (unknown) (no date) (unknown) (unknown) Patient History (units unknown) (unknown) (unknown) (no date) (unknown) (unknown) Patient is appropriate for outpatient management. (units unknown) (unknown) (unknown) (no date) (unknown) (unknown) Patient: Kaur Horton MR (units unknown) (unknown) (unknown) (no date) (unknown) (unknown) Plt Count (150-400) X103/uL (units unknown) (unknown) (unknown) (no date) (unknown) (unknown) Plt Count 327 (150-400) X103/uL (units unknown) (unknown) (unknown) (no date) (unknown) (unknown) Point of Care Testing (units unknown) (unknown) (unknown) (no date) (unknown) (unknown) Potassium (3.4-5.1) mmol/L (units unknown) (unknown) (unknown) (no date) (unknown) (unknown) Potassium 4.1 (3.4-5.1) mmol/L (units unknown) (unknown) (unknown) (no date) (unknown) (unknown) Prescriptions: (units unknown) (unknown) (unknown) (no date) (unknown) (unknown) Previous Rx's (units unknown) (unknown) (unknown) (no date) (unknown) (unknown) Procalcitonin (<0.5) ng/mL (units unknown) (unknown) (unknown) (no date) (unknown) (unknown) Procalcitonin 0.34 (<0.5) ng/mL (units unknown) (unknown) (unknown) (no date) (unknown) (unknown) Procalcitonin Cancelled (<0.5) ng/mL (units unknown) (unknown) (unknown) (no date) (unknown) (unknown) Procalcitonin Stat (units unknown) (unknown) (unknown) (no date) (unknown) (unknown) Prothrombin Time INR Stat (units unknown) (unknown) (unknown) (no date) (unknown) (unknown) Pulse Oximetry 98 (units unknown) (unknown) (unknown) (no date) (unknown) (unknown) Pulse Oximetry 99 08/10/22 14:28 (units unknown) (unknown) (unknown) (no date) (unknown) (unknown) Pulse Oximetry 99 98 (units unknown) (unknown) (unknown) (no date) (unknown) (unknown) Pulse Rate 103 H (units unknown) (unknown) (unknown) (no date) (unknown) (unknown) Pulse Rate 106 H 08/10/22 14:28 (units unknown) (unknown) (unknown) (no date) (unknown) (unknown) Pulse Rate 106 H 110 H (units unknown) (unknown) (unknown) (no date) (unknown) (unknown) Qualifiers: (units unknown) (unknown) (unknown) (no date) (unknown) (unknown) Questions are addressed and there is agreement with the plan and for follow-up. (units unknown) (unknown) (unknown) (no date) (unknown) (unknown) RBC (4.0-5.2) X106/uL (units unknown) (unknown) (unknown) (no date) (unknown) (unknown) RBC 4.85 (4.0-5.2) X106/uL (units unknown) (unknown) (unknown) (no date) (unknown) (unknown) RDW (11.6-14.8) % (units unknown) (unknown) (unknown) (no date) (unknown) (unknown) RDW 15.7 H (11.6-14.8) % (units unknown) (unknown) (unknown) (no date) (unknown) (unknown) RT Consult Eval and Treat NOW (units unknown) (unknown) (unknown) (no date) (unknown) (unknown) Referrals: (units unknown) (unknown) (unknown) (no date) (unknown) (unknown) Related Data (units unknown) (unknown) (unknown) (no date) (unknown) (unknown) Respiratory Rate 22 08/10/22 14:28 (units unknown) (unknown) (unknown) (no date) (unknown) (unknown) Respiratory Rate 22 (units unknown) (unknown) (unknown) (no date) (unknown) (unknown) Respiratory Rate 24 (units unknown) (unknown) (unknown) (no date) (unknown) (unknown) Rx Instructions: (units unknown) (unknown) (unknown) (no date) (unknown) (unknown) See Rx Instructions .ROUTE .COMPLEX Qty: 473 0RF (units unknown) (unknown) (unknown) (no date) (unknown) (unknown) See Rx Instructions .ROUTE .MEDSUPPLY Qty: 500 1RF (units unknown) (unknown) (unknown) (no date) (unknown) (unknown) See Rx Instructions PO .COMPLEX Qty: 60 0RF (units unknown) (unknown) (unknown) (no date) (unknown) (unknown) Signed By: (units unknown) (unknown) (unknown) (no date) (unknown) (unknown) Since patient's most recent urine culture grew Staph lugdunensis opted to treat (units unknown) (unknown) (unknown) (no date) (unknown) (unknown) Smoking Status: Current every day smoker (units unknown) (unknown) (unknown) (no date) (unknown) (unknown) Social History (units unknown) (unknown) (unknown) (no date) (unknown) (unknown) Social consideration s that may affect disposition: none (units unknown) (unknown) (unknown) (no date) (unknown) (unknown) Sodium (137-145) mmol/L (units unknown) (unknown) (unknown) (no date) (unknown) (unknown) Sodium 142 (137-145) mmol/L (units unknown) (unknown) (unknown) (no date) (unknown) (unknown) Sodium Chloride (Normal Saline 0.9%) 1,000 mls @ 1,000 mls/hr IV BOLUS ONE (units unknown) (unknown) (unknown) (no date) (unknown) (unknown) Source: patient and family (units unknown) (unknown) (unknown) (no date) (unknown) (unknown) Stated complaint: pain all over body,vomiting (units unknown) (unknown) (unknown) (no date) (unknown) (unknown) Status post appendectomy (units unknown) (unknown) (unknown) (no date) (unknown) (unknown) Stop: 08/10/22 15:39 (units unknown) (unknown) (unknown) (no date) (unknown) (unknown) Stop: 08/10/22 16:39 (units unknown) (unknown) (unknown) (no date) (unknown) (unknown) Stop: 08/10/22 16:47 (units unknown) (unknown) (unknown) (no date) (unknown) (unknown) Stop: 08/10/22 16:48 (units unknown) (unknown) (unknown) (no date) (unknown) (unknown) Stop: 08/10/22 17:05 (units unknown) (unknown) (unknown) (no date) (unknown) (unknown) Stop: 08/10/22 17:19 (units unknown) (unknown) (unknown) (no date) (unknown) (unknown) Stop: 08/10/22 17:26 (units unknown) (unknown) (unknown) (no date) (unknown) (unknown) Stop: 08/10/22 17:34 (units unknown) (unknown) (unknown) (no date) (unknown) (unknown) Stop: 08/10/22 17:36 (units unknown) (unknown) (unknown) (no date) (unknown) (unknown) Stop: 08/10/22 17:45 (units unknown) (unknown) (unknown) (no date) (unknown) (unknown) Substance Use Type: marijuana (units unknown) (unknown) (unknown) (no date) (unknown) (unknown) Surgical History (units unknown) (unknown) (unknown) (no date) (unknown) (unknown) TAKE 10 MG (10ML) BY MOUTH EVERY 6 HOURS NEEDED FOR NAUSEA AND VOMITING (units unknown) (unknown) (unknown) (no date) (unknown) (unknown) TAKE 10 MG (10ML) BY MOUTH EVERY 6 HOURS NEEDED FOR NAUSEA AND VOMITING. (units unknown) (unknown) (unknown) (no date) (unknown) (unknown) Temperature 97.9 F 08/10/22 14:28 (units unknown) (unknown) (unknown) (no date) (unknown) (unknown) Temperature 97.9 F (units unknown) (unknown) (unknown) (no date) (unknown) (unknown) Temperature (units unknown) (unknown) (unknown) (no date) (unknown) (unknown) Thiamine HCl 100 mg/ Sodium (Chloride) 101 mls @ 404 mls/hr IV NOW ONE (units unknown) (unknown) (unknown) (no date) (unknown) (unknown) This is a 27-year-ol d female with history of type 1 diabetes, cyclic vomiting (units unknown) (unknown) (unknown) (no date) (unknown) (unknown) Time Seen by Provider: 08/10/22 16:38 (units unknown) (unknown) (unknown) (no date) (unknown) (unknown) Total Bilirubin (0.2-1.3) mg/dL (units unknown) (unknown) (unknown) (no date) (unknown) (unknown) Total Bilirubin 0.7 (0.2-1.3) mg/dL (units unknown) (unknown) (unknown) (no date) (unknown) (unknown) Total Protein (6.3-8.2) g/dL (units unknown) (unknown) (unknown) (no date) (unknown) (unknown) Total Protein 8.9 H (6.3-8.2) g/dL (units unknown) (unknown) (unknown) (no date) (unknown) (unknown) Trimethoprim/Sulfame t hoxazole (Trimeth/Sulfa 160/800 (Ds) Tablet) 1 tab PO NOW (units unknown) (unknown) (unknown) (no date) (unknown) (unknown) U-100 Insulin aspart) (units unknown) (unknown) (unknown) (no date) (unknown) (unknown) UNWRAP AND INSERT 1 SUPPOSITORY RECTALLY EVERY 4 TO 6 HOURS NEEDED FOR (units unknown) (unknown) (unknown) (no date) (unknown) (unknown) Ur Renal Epithelial Cell (0-1/HPF) (units unknown) (unknown) (unknown) (no date) (unknown) (unknown) Ur Renal Epithelial Cell 1-5/hpf H (0-1/HPF) (units unknown) (unknown) (unknown) (no date) (unknown) (unknown) Ur Squamous Epith Cells (0-5/HPF) (units unknown) (unknown) (unknown) (no date) (unknown) (unknown) Ur Squamous Epith Cells 0-1 /hpf (0-5/HPF) (units unknown) (unknown) (unknown) (no date) (unknown) (unknown) Urinary tract infection type: acute cystitis Hematuria presence: without (units unknown) (unknown) (unknown) (no date) (unknown) (unknown) Urinary tract infection (units unknown) (unknown) (unknown) (no date) (unknown) (unknown) Urine Bacteria (None) (units unknown) (unknown) (unknown) (no date) (unknown) (unknown) Urine Bacteria Many (>30) H (None) (units unknown) (unknown) (unknown) (no date) (unknown) (unknown) Urine Culture Stat (units unknown) (unknown) (unknown) (no date) (unknown) (unknown) Urine Dip (units unknown) (unknown) (unknown) (no date) (unknown) (unknown) Urine Microscopic Stat (units unknown) (unknown) (unknown) (no date) (unknown) (unknown) Urine Mucus (Negative) (units unknown) (unknown) (unknown) (no date) (unknown) (unknown) Urine Mucus 1+ H (Negative) (units unknown) (unknown) (unknown) (no date) (unknown) (unknown) Urine RBC (0-5/HPF) (units unknown) (unknown) (unknown) (no date) (unknown) (unknown) Urine RBC None seen (0-5/HPF) (units unknown) (unknown) (unknown) (no date) (unknown) (unknown) Urine Specific [place] 1.030 (units unknown) (unknown) (unknown) (no date) (unknown) (unknown) Urine WBC (0-5/HPF) (units unknown) (unknown) (unknown) (no date) (unknown) (unknown) Urine WBC 5-10/hpf H (0-5/HPF) (units unknown) (unknown) (unknown) (no date) (unknown) (unknown) VBG Base Excess (0-4 ) mmol/L (units unknown) (unknown) (unknown) (no date) (unknown) (unknown) VBG Base Excess -3.0 L (0-4) mmol/L (units unknown) (unknown) (unknown) (no date) (unknown) (unknown) VBG HCO3 (24-28) mmol/L (units unknown) (unknown) (unknown) (no date) (unknown) (unknown) VBG HCO3 22 L (24-28 ) mmol/L (units unknown) (unknown) (unknown) (no date) (unknown) (unknown) VBG O2 Saturation (70-75) % (units unknown) (unknown) (unknown) (no date) (unknown) (unknown) VBG O2 Saturation 88 H (70-75) % (units unknown) (unknown) (unknown) (no date) (unknown) (unknown) VBG Total CO2 (24-29 ) mmol/L (units unknown) (unknown) (unknown) (no date) (unknown) (unknown) VBG Total CO2 23 L (24-29) mmol/L (units unknown) (unknown) (unknown) (no date) (unknown) (unknown) VBG pCO2 (45-50) mmHg (units unknown) (unknown) (unknown) (no date) (unknown) (unknown) VBG pCO2 36.2 L (45-50) mmHg (units unknown) (unknown) (unknown) (no date) (unknown) (unknown) VBG pH (7.33-7.43) (units unknown) (unknown) (unknown) (no date) (unknown) (unknown) VBG pH 7.38 (7.33-7.43) (units unknown) (unknown) (unknown) (no date) (unknown) (unknown) VBG pO2 (35-45) mmHg (units unknown) (unknown) (unknown) (no date) (unknown) (unknown) VBG pO2 56 H (35-45) mmHg (units unknown) (unknown) (unknown) (no date) (unknown) (unknown) Venous Blood Gas Stat (units unknown) (unknown) (unknown) (no date) (unknown) (unknown) Vital Signs - 8 hr (units unknown) (unknown) (unknown) (no date) (unknown) (unknown) Vital Signs (units unknown) (unknown) (unknown) (no date) (unknown) (unknown) Vital signs: (units unknown) (unknown) (unknown) (no date) (unknown) (unknown) Vomiting type: unspecified Qualified Code(s): R11.2 - Nausea with vomiting, (units unknown) (unknown) (unknown) (no date) (unknown) (unknown) WBC (4.5-11.0) X103/uL (units unknown) (unknown) (unknown) (no date) (unknown) (unknown) WBC 20.0 H (4.5-11.0 ) X103/uL (units unknown) (unknown) (unknown) (no date) (unknown) (unknown) WITH MIGRAINE. (units unknown) (unknown) (unknown) (no date) (unknown) (unknown) [ ] New medication written as a paper prescription (units unknown) (unknown) (unknown) (no date) (unknown) (unknown) [ ] No new medications given (units unknown) (unknown) (unknown) (no date) (unknown) (unknown) [Embedded Image Not Available] (units unknown) (unknown) (unknown) (no date) (unknown) (unknown) [x ] New medication prescriptions sent to your pharmacy: [ ] (units unknown) (unknown) (unknown) (no date) (unknown) (unknown) alcohol intake frequency: holidays/special occasions only (units unknown) (unknown) (unknown) (no date) (unknown) (unknown) alcohol intake: never (units unknown) (unknown) (unknown) (no date) (unknown) (unknown) at least for an update. Let them know you were seen in the Emergency Department (units unknown) (unknown) (unknown) (no date) (unknown) (unknown) culture from 11/14/2021 grew Staph lugdunensis which showed full susceptibility, (units unknown) (unknown) (unknown) (no date) (unknown) (unknown) emergency department today for intractable vomiting with nausea. (units unknown) (unknown) (unknown) (no date) (unknown) (unknown) establish care with one of the [facility] primary care providers. (units unknown) (unknown) (unknown) (no date) (unknown) (unknown) evaluation, she ende d up having an elevated lactate, her nausea vomiting has (units unknown) (unknown) (unknown) (no date) (unknown) (unknown) for the above problem. We will electronically transmit a record of today's note (units unknown) (unknown) (unknown) (no date) (unknown) (unknown) hematuria Qualified Code(s): N30.00 - Acute cystitis without hematuria (units unknown) (unknown) (unknown) (no date) (unknown) (unknown) hemoconcentration compared with prior lab work, there is a left shift however (units unknown) (unknown) (unknown) (no date) (unknown) (unknown) household members: spouse (units unknown) (unknown) (unknown) (no date) (unknown) (unknown) if your PCP or specialist is in our system. (units unknown) (unknown) (unknown) (no date) (unknown) (unknown) improved, ask her to leave a urine sample, she is currently in the bathroom, (units unknown) (unknown) (unknown) (no date) (unknown) (unknown) infection. You are quite dehydrated today but you are not in DKA, I am sorry (units unknown) (unknown) (unknown) (no date) (unknown) (unknown) insulin aspart U-100 100 unit/mL 1 sliding scale dose SUBCUT 10/04/21 (units unknown) (unknown) (unknown) (no date) (unknown) (unknown) insulin aspart U-100 [Novolog U-100 Insulin aspart] 100 unit/mL solution (units unknown) (unknown) (unknown) (no date) (unknown) (unknown) insulin syringes (disposable) 1 mL #500 ea 08/04/20 (units unknown) (unknown) (unknown) (no date) (unknown) (unknown) insulin, she took he r insulin 4 units via her insulin pump for a blood sugar of (units unknown) (unknown) (unknown) (no date) (unknown) (unknown) ketorolac [From Toradol] Allergy Verified 08/10/22 14:43 (units unknown) (unknown) (unknown) (no date) (unknown) (unknown) liquids down, fever greater than 101F, chills, or other concerning symptom. (units unknown) (unknown) (unknown) (no date) (unknown) (unknown) metoclopramide HCl 5 mg/5 mL oral See Rx Instructions .Route 01/28/22 (units unknown) (unknown) (unknown) (no date) (unknown) (unknown) metoclopramide HCl 5 mg/5 mL solution (units unknown) (unknown) (unknown) (no date) (unknown) (unknown) mg-trimethoprim 160 mg tablet (units unknown) (unknown) (unknown) (no date) (unknown) (unknown) microscopy his significant for many bacteria without contaminant, RBCs. (units unknown) (unknown) (unknown) (no date) (unknown) (unknown) normal potassium level, bilateral CVA tenderness concerning for pyelonephritis (units unknown) (unknown) (unknown) (no date) (unknown) (unknown) not keep her medication down, or if you develop fever and chills. (units unknown) (unknown) (unknown) (no date) (unknown) (unknown) pantoprazole 40 mg tablet,delayed 40 mg PO BID #30 tabs 02/07/22 (units unknown) (unknown) (unknown) (no date) (unknown) (unknown) pantoprazole 40 mg tablet,delayed release (DR/EC) (units unknown) (unknown) (unknown) (no date) (unknown) (unknown) patient is dehydrated, VBG pH of 7.38 with a pCO2 of 36.2, PO2 of 56, bicarb of (units unknown) (unknown) (unknown) (no date) (unknown) (unknown) patient with ceftriaxone and Bactrim after her nausea and vomiting improve. (units unknown) (unknown) (unknown) (no date) (unknown) (unknown) procalcitonin, blood cultures are pending (units unknown) (unknown) (unknown) (no date) (unknown) (unknown) promethazine 12.5 mg tablet 12.5 mg PO BID PRN sedation #14 08/10/22 (units unknown) (unknown) (unknown) (no date) (unknown) (unknown) promethazine 12.5 mg tablet (units unknown) (unknown) (unknown) (no date) (unknown) (unknown) promethazine 25 mg rectal 25 mg PA Q4-6H PRN Nausea And 01/27/22 02/07/22 (units unknown) (unknown) (unknown) (no date) (unknown) (unknown) promethazine [Promethegan] 25 mg suppository (units unknown) (unknown) (unknown) (no date) (unknown) (unknown) related to urinary tract infection. We will follow-up on UA, added on (units unknown) (unknown) (unknown) (no date) (unknown) (unknown) release (units unknown) (unknown) (unknown) (no date) (unknown) (unknown) rizatriptan 10 mg tablet (Maxalt) See Rx Instructions PO .COMPLEX 01/29/22 (units unknown) (unknown) (unknown) (no date) (unknown) (unknown) rizatriptan [Maxalt] 10 mg tablet (units unknown) (unknown) (unknown) (no date) (unknown) (unknown) she is also had grou p B strep UTI from 10/06/2021, UA from 06/27/2021 grew (units unknown) (unknown) (unknown) (no date) (unknown) (unknown) solution .COMPLEX #473 mL (units unknown) (unknown) (unknown) (no date) (unknown) (unknown) staph epidermis whic h had full susceptibility as well (units unknown) (unknown) (unknown) (no date) (unknown) (unknown) subcutaneous solutio n (Novolog USEASDIRECTD #10 mL (units unknown) (unknown) (unknown) (no date) (unknown) (unknown) sulfamethoxazole 800 1 tab PO BID 10 days #20 tabs 08/10/22 (units unknown) (unknown) (unknown) (no date) (unknown) (unknown) sulfamethoxazole-tri m ethoprim [Bactrim DS] 800-160 mg tablet (units unknown) (unknown) (unknown) (no date) (unknown) (unknown) suppository (Promethegan) Vomiting (units unknown) (unknown) (unknown) (no date) (unknown) (unknown) syndrome, gastroparesis, DKA, appendectomy, pancreatitis who presents to the (units unknown) (unknown) (unknown) (no date) (unknown) (unknown) tabs (units unknown) (unknown) (unknown) (no date) (unknown) (unknown) take 1 tab at onset of headache; if no relief may repeat 1 tab after at least (units unknown) (unknown) (unknown) (no date) (unknown) (unknown) that you did not fee l well. I have prescribed for you some more Phenergan, and (units unknown) (unknown) (unknown) (no date) (unknown) (unknown) to: UTI, pyelonephritis, nephrolithiasis (units unknown) (unknown) (unknown) (no date) (unknown) (unknown) tobacco type: vaping (units unknown) (unknown) (unknown) (no date) (unknown) (unknown) unspecified (units unknown) (unknown) (unknown) (no date) (unknown) (unknown) well as prior record s if available. Pertinent records include: Prior urine (units unknown) (unknown) (unknown) (no date) (unknown) (unknown) will treat her lacti c acidosis with a secondary L of normal saline, she has a (units unknown) (unknown) (unknown) (no date) (unknown) (unknown) you start feeling better soon, please return for worsening condition if you can (units unknown) (unknown) Result panel [id number] (unknown) (no date) (unknown) (unknown) (no value) (units unknown) (unknown) (unknown) (no date) (unknown) (unknown) #60 tabs (units unknown) (unknown) (unknown) (no date) (unknown) (unknown) #: [id number] (units unknown) (unknown) (unknown) (no date) (unknown) (unknown) (Bactrim DS) (units unknown) (unknown) (unknown) (no date) (unknown) (unknown) (DME) insulin syringes (disposable) 1 mL syringe (units unknown) (unknown) (unknown) (no date) (unknown) (unknown) *If you do not have a primary care provider please contact [phone] to (units unknown) (unknown) (unknown) (no date) (unknown) (unknown) *Please call and schedule follow up with your primary care provider in 2-3 days, (units unknown) (unknown) (unknown) (no date) (unknown) (unknown) *Please continue to take your regular medications as directed. (units unknown) (unknown) (unknown) (no date) (unknown) (unknown) *Return to the Emergency Department for worsening symptoms, inability to keep (units unknown) (unknown) (unknown) (no date) (unknown) (unknown) *What to do: (units unknown) (unknown) (unknown) (no date) (unknown) (unknown) *You have been diagnosed with urinary tract infection with concern for kidney (units unknown) (unknown) (unknown) (no date) (unknown) (unknown) 08/10/22 08/10/22 08/10/22 Range/Units (units unknown) (unknown) (unknown) (no date) (unknown) (unknown) 08/10/22 08/10/22 Range/Units (units unknown) (unknown) (unknown) (no date) (unknown) (unknown) 08/10/22 14:40 (units unknown) (unknown) (unknown) (no date) (unknown) (unknown) 08/10/22 14:50 (units unknown) (unknown) (unknown) (no date) (unknown) (unknown) 08/10/22 15:40 (units unknown) (unknown) (unknown) (no date) (unknown) (unknown) 08/10/22 15:45 (units unknown) (unknown) (unknown) (no date) (unknown) (unknown) 08/10/22 17:06 (units unknown) (unknown) (unknown) (no date) (unknown) (unknown) 08/10/22 17:45 (units unknown) (unknown) (unknown) (no date) (unknown) (unknown) 08/10/22 (units unknown) (unknown) (unknown) (no date) (unknown) (unknown) 1 sliding scale dose SUBCUT USEASDIRECTD Qty: 10 3RF (units unknown) (unknown) (unknown) (no date) (unknown) (unknown) 1 tab PO BID 10 Days Qty: 20 0RF (units unknown) (unknown) (unknown) (no date) (unknown) (unknown) 12.5 mg PO BID PRN (Reason: sedation) Qty: 14 0RF (units unknown) (unknown) (unknown) (no date) (unknown) (unknown) 14:28 08/10/22 (units unknown) (unknown) (unknown) (no date) (unknown) (unknown) 14:50 14:50 14:50 (units unknown) (unknown) (unknown) (no date) (unknown) (unknown) 15:45 17:06 (units unknown) (unknown) (unknown) (no date) (unknown) (unknown) 16:04 08/10/22 (units unknown) (unknown) (unknown) (no date) (unknown) (unknown) 16:14 (units unknown) (unknown) (unknown) (no date) (unknown) (unknown) 2 hrs; max = 3 tabs/24 hr PO (units unknown) (unknown) (unknown) (no date) (unknown) (unknown) 22, total CO2 of 23, O2 sat of 88 and base excess of -3 on room air, urine (units unknown) (unknown) (unknown) (no date) (unknown) (unknown) 25 mg PA Q4-6H PRN (Reason: Nausea And Vomiting) (units unknown) (unknown) (unknown) (no date) (unknown) (unknown) 332 on her personal CGM. Patient received 1 L normal saline prior to my (units unknown) (unknown) (unknown) (no date) (unknown) (unknown) 40 mg PO BID Qty: 30 0RF (units unknown) (unknown) (unknown) (no date) (unknown) (unknown) ALT (<35) IU/L (units unknown) (unknown) (unknown) (no date) (unknown) (unknown) ALT 19 (<35) IU/L (units unknown) (unknown) (unknown) (no date) (unknown) (unknown) APTT (26-36) SECONDS (units unknown) (unknown) (unknown) (no date) (unknown) (unknown) APTT 29 (26-36) SECONDS (units unknown) (unknown) (unknown) (no date) (unknown) (unknown) AST (14-36) IU/L (units unknown) (unknown) (unknown) (no date) (unknown) (unknown) AST 27 (14-36) IU/L (units unknown) (unknown) (unknown) (no date) (unknown) (unknown) Activity Restrictions/Addition al Instructions: (units unknown) (unknown) (unknown) (no date) (unknown) (unknown) Admin: 08/10/22 15:0 7 Dose: 1,000 mls/hr (units unknown) (unknown) (unknown) (no date) (unknown) (unknown) Admin: 08/10/22 17:1 4 Dose: 404 mls/hr (units unknown) (unknown) (unknown) (no date) (unknown) (unknown) Age/Sex: 27 / F (units unknown) (unknown) (unknown) (no date) (unknown) (unknown) Albumin (3.5-5.0) g/dL (units unknown) (unknown) (unknown) (no date) (unknown) (unknown) Albumin 5.2 H (3.5-5.0) g/dL (units unknown) (unknown) (unknown) (no date) (unknown) (unknown) Albumin/Globulin Ratio (1.0-2.8) (units unknown) (unknown) (unknown) (no date) (unknown) (unknown) Albumin/Globulin Ratio 1.4 (1.0-2.8) (units unknown) (unknown) (unknown) (no date) (unknown) (unknown) Alkaline Phosphatase (38-126) U/L (units unknown) (unknown) (unknown) (no date) (unknown) (unknown) Alkaline Phosphatase 130 H (38-126) U/L (units unknown) (unknown) (unknown) (no date) (unknown) (unknown) Allergies (units unknown) (unknown) (unknown) (no date) (unknown) (unknown) Allergy/AdvReac Type Severity Reaction Status Date / Time (units unknown) (unknown) (unknown) (no date) (unknown) (unknown) Amoxicillin/Clavulan a te Potassium (Amoxicillin/Clav 875/125 Mg) 1 tab PO NOW (units unknown) (unknown) (unknown) (no date) (unknown) (unknown) Anemia (units unknown) (unknown) (unknown) (no date) (unknown) (unknown) As directed for use with insulin injections (units unknown) (unknown) (unknown) (no date) (unknown) (unknown) BMP [Basic Metabolic Panel] Stat (units unknown) (unknown) (unknown) (no date) (unknown) (unknown) BUN (7-17) mg/dL (units unknown) (unknown) (unknown) (no date) (unknown) (unknown) BUN 21 H (7-17) mg/dL (units unknown) (unknown) (unknown) (no date) (unknown) (unknown) BUN/Creatinine Ratio (6-22) (units unknown) (unknown) (unknown) (no date) (unknown) (unknown) BUN/Creatinine Ratio 33.9 H (6-22) (units unknown) (unknown) (unknown) (no date) (unknown) (unknown) Baso # (Auto) (0-100 ) /uL (units unknown) (unknown) (unknown) (no date) (unknown) (unknown) Baso # (Auto) 0 (0-100) /uL (units unknown) (unknown) (unknown) (no date) (unknown) (unknown) Baso % (Auto) (0-2) % (units unknown) (unknown) (unknown) (no date) (unknown) (unknown) Baso % (Auto) 0.1 (0-2) % (units unknown) (unknown) (unknown) (no date) (unknown) (unknown) Bedside Urine Bilirubin - Negative (units unknown) (unknown) (unknown) (no date) (unknown) (unknown) Bedside Urine Glucos e 1000 mg/dl (units unknown) (unknown) (unknown) (no date) (unknown) (unknown) Bedside Urine Ketone +++ 80 (units unknown) (unknown) (unknown) (no date) (unknown) (unknown) Bedside Urine Leukocytes - Negative (units unknown) (unknown) (unknown) (no date) (unknown) (unknown) Bedside Urine Nitrit e + Positive (units unknown) (unknown) (unknown) (no date) (unknown) (unknown) Bedside Urine Occult Blood (units unknown) (unknown) (unknown) (no date) (unknown) (unknown) Bedside Urine Protei n + 30 (units unknown) (unknown) (unknown) (no date) (unknown) (unknown) Bedside Urine Urobilinogen - Negative (units unknown) (unknown) (unknown) (no date) (unknown) (unknown) Bedside Urine pH 6.0 (units unknown) (unknown) (unknown) (no date) (unknown) (unknown) Blood Culture Stat (units unknown) (unknown) (unknown) (no date) (unknown) (unknown) Blood Pressure 128/7 8 08/10/22 14:28 (units unknown) (unknown) (unknown) (no date) (unknown) (unknown) Blood Pressure 128/7 8 113/58 L (units unknown) (unknown) (unknown) (no date) (unknown) (unknown) Blood Pressure (units unknown) (unknown) (unknown) (no date) (unknown) (unknown) CARDIOVASCULAR: Regular rate and rhythm without murmurs, gallops, or rubs. (units unknown) (unknown) (unknown) (no date) (unknown) (unknown) CBC No Diff [Complet e Blood Count NO DIFF] Stat (units unknown) (unknown) (unknown) (no date) (unknown) (unknown) Calcium (8.4-10.2) mg/dL (units unknown) (unknown) (unknown) (no date) (unknown) (unknown) Calcium 9.4 (8.4-10.2) mg/dL (units unknown) (unknown) (unknown) (no date) (unknown) (unknown) Carbon Dioxide (22-32) mmol/L (units unknown) (unknown) (unknown) (no date) (unknown) (unknown) Carbon Dioxide 21 L (22-32) mmol/L (units unknown) (unknown) (unknown) (no date) (unknown) (unknown) Ceftriaxone Sodium 1,000 mg/ (Sodium Chloride) 100 mls @ 200 mls/hr IV NOW ONE (units unknown) (unknown) (unknown) (no date) (unknown) (unknown) Chief Complaint: Nausea vomiting, type 1 diabetes (units unknown) (unknown) (unknown) (no date) (unknown) (unknown) Chief complaint: Nausea/Vomiting/Diarr hea (units unknown) (unknown) (unknown) (no date) (unknown) (unknown) Chloride (98-107) mmol/L (units unknown) (unknown) (unknown) (no date) (unknown) (unknown) Chloride 106 (98-107 ) mmol/L (units unknown) (unknown) (unknown) (no date) (unknown) (unknown) Clinical Impression: (units unknown) (unknown) (unknown) (no date) (unknown) (unknown) Complete Blood Count AUTO DIFF Stat (units unknown) (unknown) (unknown) (no date) (unknown) (unknown) Comprehensive Metabolic Panel Stat (units unknown) (unknown) (unknown) (no date) (unknown) (unknown) Course of care: Patient was asking for pain medication prior to giving her (units unknown) (unknown) (unknown) (no date) (unknown) (unknown) Course (units unknown) (unknown) (unknown) (no date) (unknown) (unknown) Creatinine (0.52-1.04) mg/dL (units unknown) (unknown) (unknown) (no date) (unknown) (unknown) Creatinine 0.62 (0.52-1.04) mg/dL (units unknown) (unknown) (unknown) (no date) (unknown) (unknown) Cyclic vomiting syndrome (units unknown) (unknown) (unknown) (no date) (unknown) (unknown) DKA (diabetic ketoacidoses) (units unknown) (unknown) (unknown) (no date) (unknown) (unknown) : 1995 Acct:[id number] (units unknown) (unknown) (unknown) (no date) (unknown) (unknown) Date of Service: 08/10/22 (units unknown) (unknown) (unknown) (no date) (unknown) (unknown) Departure (units unknown) (unknown) (unknown) (no date) (unknown) (unknown) Diabetes mellitus, type I (units unknown) (unknown) (unknown) (no date) (unknown) (unknown) Diazepam (Diazepam 1 0 Mg/2 Ml Syringe) 2 mg IV NOW ONE (units unknown) (unknown) (unknown) (no date) (unknown) (unknown) Discharge Plan (units unknown) (unknown) (unknown) (no date) (unknown) (unknown) Discontinued Medications (units unknown) (unknown) (unknown) (no date) (unknown) (unknown) Documented By: NR (units unknown) (unknown) (unknown) (no date) (unknown) (unknown) Documented By: RL (units unknown) (unknown) (unknown) (no date) (unknown) (unknown) Dose Instruction: (units unknown) (unknown) (unknown) (no date) (unknown) (unknown) ED Orders (units unknown) (unknown) (unknown) (no date) (unknown) (unknown) ENT: Nose without bleeding, purulent drainage. Airway patent. (units unknown) (unknown) (unknown) (no date) (unknown) (unknown) ER Physician: KimberlywKarol (units unknown) (unknown) (unknown) (no date) (unknown) (unknown) EXTREMITIES: Normal mobility and range of motion, without any weakness, (units unknown) (unknown) (unknown) (no date) (unknown) (unknown) EYES: Pupils equal round and reactive. Extraocular motions intact. No scleral (units unknown) (unknown) (unknown) (no date) (unknown) (unknown) Emergency Report (units unknown) (unknown) (unknown) (no date) (unknown) (unknown) Eos # (Auto) (0-450) /uL (units unknown) (unknown) (unknown) (no date) (unknown) (unknown) Eos # (Auto) 0 (0-450) /uL (units unknown) (unknown) (unknown) (no date) (unknown) (unknown) Eos % (Auto) (2-4) % (units unknown) (unknown) (unknown) (no date) (unknown) (unknown) Eos % (Auto) 0.0 L (2-4) % (units unknown) (unknown) (unknown) (no date) (unknown) (unknown) Esterase (units unknown) (unknown) (unknown) (no date) (unknown) (unknown) Estimated GFR > 60 (>60) mL/min (units unknown) (unknown) (unknown) (no date) (unknown) (unknown) Estimated GFR (>60) mL/min (units unknown) (unknown) (unknown) (no date) (unknown) (unknown) Exam Narrative: (units unknown) (unknown) (unknown) (no date) (unknown) (unknown) Exam (units unknown) (unknown) (unknown) (no date) (unknown) (unknown) Family History (units unknown) (unknown) (unknown) (no date) (unknown) (unknown) Father Healthy adult (units unknown) (unknown) (unknown) (no date) (unknown) (unknown) FiO2 21 (units unknown) (unknown) (unknown) (no date) (unknown) (unknown) FiO2 (units unknown) (unknown) (unknown) (no date) (unknown) (unknown) GASTROINTESTINAL: Abdomen soft, generalized tenderness, nondistended, no masses, (units unknown) (unknown) (unknown) (no date) (unknown) (unknown) GENERAL: [26] year old patient appears stated age. Well-developed patient, in (units unknown) (unknown) (unknown) (no date) (unknown) (unknown) Gastroparesis (units unknown) (unknown) (unknown) (no date) (unknown) (unknown) General (units unknown) (unknown) (unknown) (no date) (unknown) (unknown) Globulin (1.7-4.1) g/dL (units unknown) (unknown) (unknown) (no date) (unknown) (unknown) Globulin 3.7 (1.7-4.1) g/dL (units unknown) (unknown) (unknown) (no date) (unknown) (unknown) Glucose (70-100) mg/dL (units unknown) (unknown) (unknown) (no date) (unknown) (unknown) Glucose 221 H (70-100) mg/dL (units unknown) (unknown) (unknown) (no date) (unknown) (unknown) Glucose POC 350 (units unknown) (unknown) (unknown) (no date) (unknown) (unknown) HEAD: Atraumatic. Symmetrical face expressions (units unknown) (unknown) (unknown) (no date) (unknown) (unknown) HPI - Nausea/Vomiting/Diarr hea (units unknown) (unknown) (unknown) (no date) (unknown) (unknown) HPI Narrative: (units unknown) (unknown) (unknown) (no date) (unknown) (unknown) Hct (36-46) % (units unknown) (unknown) (unknown) (no date) (unknown) (unknown) Hct 37.5 (36-46) % (units unknown) (unknown) (unknown) (no date) (unknown) (unknown) Hgb (12.0-16.0) g/dL (units unknown) (unknown) (unknown) (no date) (unknown) (unknown) Hgb 12.4 (12.0-16.0) g/dL (units unknown) (unknown) (unknown) (no date) (unknown) (unknown) History of Present Illness (units unknown) (unknown) (unknown) (no date) (unknown) (unknown) Home Medications (units unknown) (unknown) (unknown) (no date) (unknown) (unknown) Delonte Trevino MD [Primary Care Provider] (units unknown) (unknown) (unknown) (no date) (unknown) (unknown) Hyaline Casts (None) (units unknown) (unknown) (unknown) (no date) (unknown) (unknown) Hyaline Casts 1-5/lp f (None) (units unknown) (unknown) (unknown) (no date) (unknown) (unknown) Hydromorphone HCl (Hydromorphone 0.5 Mg Inj) 0.5 mg IV NOW ONE (units unknown) (unknown) (unknown) (no date) (unknown) (unknown) I have independently reviewed the patient's vital signs and nursing notes as (units unknown) (unknown) (unknown) (no date) (unknown) (unknown) I hope that you can use medications to help keep your antibiotics down. I hope (units unknown) (unknown) (unknown) (no date) (unknown) (unknown) INR (0.9-1.3) (units unknown) (unknown) (unknown) (no date) (unknown) (unknown) INR 1.3 (0.9-1.3) (units unknown) (unknown) (unknown) (no date) (unknown) (unknown) Independent historian: Patient and her sister Celsa (units unknown) (unknown) (unknown) (no date) (unknown) (unknown) Initial Vital Signs (units unknown) (unknown) (unknown) (no date) (unknown) (unknown) Initial Vital Signs: (units unknown) (unknown) (unknown) (no date) (unknown) (unknown) Instructions: DI for Dehydration -- Adult, DI for Urinary Tract Infection (UTI) (units unknown) (unknown) (unknown) (no date) (unknown) (unknown) Insulin dependent diabetes mellitus (units unknown) (unknown) (unknown) (no date) (unknown) (unknown) [address] [address] (units unknown) (unknown) (unknown) (no date) (unknown) (unknown) Ketones (<0.27) mmol/L (units unknown) (unknown) (unknown) (no date) (unknown) (unknown) Ketones (Beta-Hydroxybutyrate ) Stat (units unknown) (unknown) (unknown) (no date) (unknown) (unknown) Ketones 1.46 H (<0.27) mmol/L (units unknown) (unknown) (unknown) (no date) (unknown) (unknown) Lab Data (units unknown) (unknown) (unknown) (no date) (unknown) (unknown) Lab Results (units unknown) (unknown) (unknown) (no date) (unknown) (unknown) Labs: (units unknown) (unknown) (unknown) (no date) (unknown) (unknown) Lactate (0.7-2.1) mmol/L (units unknown) (unknown) (unknown) (no date) (unknown) (unknown) Lactate (Lactic Acid ) Stat (units unknown) (unknown) (unknown) (no date) (unknown) (unknown) Lactate 2.8 H (0.7-2.1) mmol/L (units unknown) (unknown) (unknown) (no date) (unknown) (unknown) Last Admin: 08/10/22 15:09 Dose: 4 mg (units unknown) (unknown) (unknown) (no date) (unknown) (unknown) Last Admin: 08/10/22 17:10 Dose: 0.5 mg (units unknown) (unknown) (unknown) (no date) (unknown) (unknown) Last Admin: 08/10/22 17:14 Dose: 10 mg (units unknown) (unknown) (unknown) (no date) (unknown) (unknown) Last Admin: 08/10/22 17:16 Dose: 1,000 mls/hr (units unknown) (unknown) (unknown) (no date) (unknown) (unknown) Last Admin: 08/10/22 18:05 Dose: 2 mg (units unknown) (unknown) (unknown) (no date) (unknown) (unknown) Last Admin: 08/10/22 18:06 Dose: 200 mls/hr (units unknown) (unknown) (unknown) (no date) (unknown) (unknown) Last Admin: 08/10/22 18:06 Dose: 40 mg (units unknown) (unknown) (unknown) (no date) (unknown) (unknown) Last Admin: 08/10/22 18:09 Dose: Not Given (units unknown) (unknown) (unknown) (no date) (unknown) (unknown) Last Infusion: 08/10/22 17:24 Dose: 0 mls/hr (units unknown) (unknown) (unknown) (no date) (unknown) (unknown) Last Infusion: 08/10/22 18:08 Dose: 404 mls/hr (units unknown) (unknown) (unknown) (no date) (unknown) (unknown) Lipase (23-300) U/L (units unknown) (unknown) (unknown) (no date) (unknown) (unknown) Lipase 16 L (23-300) U/L (units unknown) (unknown) (unknown) (no date) (unknown) (unknown) Lipase Stat (units unknown) (unknown) (unknown) (no date) (unknown) (unknown) Lymph # (Auto) (8923-8363) /uL (units unknown) (unknown) (unknown) (no date) (unknown) (unknown) Lymph # (Auto) 1000 L (7301-0963) /uL (units unknown) (unknown) (unknown) (no date) (unknown) (unknown) Lymph % (Auto) (25-40) % (units unknown) (unknown) (unknown) (no date) (unknown) (unknown) Lymph % (Auto) 5.1 L (25-40) % (units unknown) (unknown) (unknown) (no date) (unknown) (unknown) MCH (26-34) PG (units unknown) (unknown) (unknown) (no date) (unknown) (unknown) MCH 25.6 L (26-34) PG (units unknown) (unknown) (unknown) (no date) (unknown) (unknown) MCHC (30-36) % (units unknown) (unknown) (unknown) (no date) (unknown) (unknown) MCHC 33.1 (30-36) % (units unknown) (unknown) (unknown) (no date) (unknown) (unknown) MCV (80-100) fL (units unknown) (unknown) (unknown) (no date) (unknown) (unknown) MCV 77.3 L (80-100) fL (units unknown) (unknown) (unknown) (no date) (unknown) (unknown) MDM - Nausea/Vomiting/Diarr hea (units unknown) (unknown) (unknown) (no date) (unknown) (unknown) MDM Narrative (units unknown) (unknown) (unknown) (no date) (unknown) (unknown) Medical History (units unknown) (unknown) (unknown) (no date) (unknown) (unknown) Medical decision making narrative: (units unknown) (unknown) (unknown) (no date) (unknown) (unknown) Medication Instructions Recorded Confirmed (units unknown) (unknown) (unknown) (no date) (unknown) (unknown) Medication Instructions Recorded (units unknown) (unknown) (unknown) (no date) (unknown) (unknown) Metoclopramide HCl (Metoclopramide 10 Mg/2 Ml Inj) 10 mg IV NOW ONE (units unknown) (unknown) (unknown) (no date) (unknown) (unknown) Migraine headache with aura (units unknown) (unknown) (unknown) (no date) (unknown) (unknown) Mode of arrival: Family Vehicle (units unknown) (unknown) (unknown) (no date) (unknown) (unknown) [place] # (Auto) (0-900 ) /uL (units unknown) (unknown) (unknown) (no date) (unknown) (unknown) [place] # (Auto) 400 (0-900) /uL (units unknown) (unknown) (unknown) (no date) (unknown) (unknown) [place] % (Auto) (3-14) % (units unknown) (unknown) (unknown) (no date) (unknown) (unknown) [place] % (Auto) 1.8 L (3-14) % (units unknown) (unknown) (unknown) (no date) (unknown) (unknown) Mother Hypertension (units unknown) (unknown) (unknown) (no date) (unknown) (unknown) Multiple etiologies for patient's symptoms considered including, but not limited (units unknown) (unknown) (unknown) (no date) (unknown) (unknown) My interpretation of imaging: (units unknown) (unknown) (unknown) (no date) (unknown) (unknown) My interpretation of lab studies: CBC is elevated at 20 with mild (units unknown) (unknown) (unknown) (no date) (unknown) (unknown) Myopia (units unknown) (unknown) (unknown) (no date) (unknown) (unknown) NAUSEA OR VOMITING (units unknown) (unknown) (unknown) (no date) (unknown) (unknown) NECK: Trachea midline. Non tender (units unknown) (unknown) (unknown) (no date) (unknown) (unknown) NEURO: AOx3, speech is clear, patient is ambulatory and appropriately (units unknown) (unknown) (unknown) (no date) (unknown) (unknown) Narrative (units unknown) (unknown) (unknown) (no date) (unknown) (unknown) Nausea and vomiting (units unknown) (unknown) (unknown) (no date) (unknown) (unknown) Neut # (Auto) (7021-9109) /uL (units unknown) (unknown) (unknown) (no date) (unknown) (unknown) Neut # (Auto) 29096 H (9239-1827) /uL (units unknown) (unknown) (unknown) (no date) (unknown) (unknown) Neut % (Auto) (50-75 ) % (units unknown) (unknown) (unknown) (no date) (unknown) (unknown) Neut % (Auto) 93.0 H (50-75) % (units unknown) (unknown) (unknown) (no date) (unknown) (unknown) New (units unknown) (unknown) (unknown) (no date) (unknown) (unknown) No Action (units unknown) (unknown) (unknown) (no date) (unknown) (unknown) ONE (units unknown) (unknown) (unknown) (no date) (unknown) (unknown) Ondansetron HCl (Ondansetron 4 Mg Odt) 4 mg SL NOW PRN (units unknown) (unknown) (unknown) (no date) (unknown) (unknown) Ondansetron HCl (Ondansetron 4 Mg/2 Ml Inj) 4 mg IV NOW PRN (units unknown) (unknown) (unknown) (no date) (unknown) (unknown) Ordered: (units unknown) (unknown) (unknown) (no date) (unknown) (unknown) Orders (units unknown) (unknown) (unknown) (no date) (unknown) (unknown) Oxygen Delivery Method Room Air 08/10/22 14:28 (units unknown) (unknown) (unknown) (no date) (unknown) (unknown) Oxygen Delivery Method Room Air (units unknown) (unknown) (unknown) (no date) (unknown) (unknown) Oxygen Delivery Method (units unknown) (unknown) (unknown) (no date) (unknown) (unknown) PRN Reason: Nausea And Vomiting (units unknown) (unknown) (unknown) (no date) (unknown) (unknown) PT (10.1-12.7) SECONDS (units unknown) (unknown) (unknown) (no date) (unknown) (unknown) PT 14.5 H (10.1-12.7 ) SECONDS (units unknown) (unknown) (unknown) (no date) (unknown) (unknown) PTT Partial Thromboplastin Sonny Stat (units unknown) (unknown) (unknown) (no date) (unknown) (unknown) Pancreatitis (units unknown) (unknown) (unknown) (no date) (unknown) (unknown) Pantoprazole Sodium (Pantoprazole 40 Mg Vial) 40 mg IV NOW ONE (units unknown) (unknown) (unknown) (no date) (unknown) (unknown) Patient Comments: (units unknown) (unknown) (unknown) (no date) (unknown) (unknown) Patient History (units unknown) (unknown) (unknown) (no date) (unknown) (unknown) Patient is appropriate for outpatient management. (units unknown) (unknown) (unknown) (no date) (unknown) (unknown) Patient: Kaur Horton MR (units unknown) (unknown) (unknown) (no date) (unknown) (unknown) Plt Count (150-400) X103/uL (units unknown) (unknown) (unknown) (no date) (unknown) (unknown) Plt Count 327 (150-400) X103/uL (units unknown) (unknown) (unknown) (no date) (unknown) (unknown) Point of Care Testing (units unknown) (unknown) (unknown) (no date) (unknown) (unknown) Potassium (3.4-5.1) mmol/L (units unknown) (unknown) (unknown) (no date) (unknown) (unknown) Potassium 4.1 (3.4-5.1) mmol/L (units unknown) (unknown) (unknown) (no date) (unknown) (unknown) Prescriptions: (units unknown) (unknown) (unknown) (no date) (unknown) (unknown) Previous Rx's (units unknown) (unknown) (unknown) (no date) (unknown) (unknown) Procalcitonin (<0.5) ng/mL (units unknown) (unknown) (unknown) (no date) (unknown) (unknown) Procalcitonin 0.34 (<0.5) ng/mL (units unknown) (unknown) (unknown) (no date) (unknown) (unknown) Procalcitonin Cancelled (<0.5) ng/mL (units unknown) (unknown) (unknown) (no date) (unknown) (unknown) Procalcitonin Stat (units unknown) (unknown) (unknown) (no date) (unknown) (unknown) Prothrombin Time INR Stat (units unknown) (unknown) (unknown) (no date) (unknown) (unknown) Protonix, ceftriaxone, Bactrim, Dilaudid, and Valium. She was resting (units unknown) (unknown) (unknown) (no date) (unknown) (unknown) Pulse Oximetry 98 (units unknown) (unknown) (unknown) (no date) (unknown) (unknown) Pulse Oximetry 99 08/10/22 14:28 (units unknown) (unknown) (unknown) (no date) (unknown) (unknown) Pulse Oximetry 99 98 (units unknown) (unknown) (unknown) (no date) (unknown) (unknown) Pulse Rate 103 H (units unknown) (unknown) (unknown) (no date) (unknown) (unknown) Pulse Rate 106 H 08/10/22 14:28 (units unknown) (unknown) (unknown) (no date) (unknown) (unknown) Pulse Rate 106 H 110 H (units unknown) (unknown) (unknown) (no date) (unknown) (unknown) Qualifiers: (units unknown) (unknown) (unknown) (no date) (unknown) (unknown) Questions are addressed and there is agreement with the plan and for follow-up. (units unknown) (unknown) (unknown) (no date) (unknown) (unknown) RBC (4.0-5.2) X106/uL (units unknown) (unknown) (unknown) (no date) (unknown) (unknown) RBC 4.85 (4.0-5.2) X106/uL (units unknown) (unknown) (unknown) (no date) (unknown) (unknown) RDW (11.6-14.8) % (units unknown) (unknown) (unknown) (no date) (unknown) (unknown) RDW 15.7 H (11.6-14.8) % (units unknown) (unknown) (unknown) (no date) (unknown) (unknown) RESPIRATORY: Clear t o auscultation. Breath sounds equal bilaterally. No wheezes, (units unknown) (unknown) (unknown) (no date) (unknown) (unknown) ROS Unobtainable: Al l systems reviewed + are unremarkable except as noted in HPI (units unknown) (unknown) (unknown) (no date) (unknown) (unknown) RT Consult Eval and Treat NOW (units unknown) (unknown) (unknown) (no date) (unknown) (unknown) Reassessment 18 30 patient is resting comfortably, her medications have helped (units unknown) (unknown) (unknown) (no date) (unknown) (unknown) Referrals: (units unknown) (unknown) (unknown) (no date) (unknown) (unknown) Related Data (units unknown) (unknown) (unknown) (no date) (unknown) (unknown) Respiratory Rate 22 08/10/22 14:28 (units unknown) (unknown) (unknown) (no date) (unknown) (unknown) Respiratory Rate 22 (units unknown) (unknown) (unknown) (no date) (unknown) (unknown) Respiratory Rate 24 (units unknown) (unknown) (unknown) (no date) (unknown) (unknown) Review of Systems (units unknown) (unknown) (unknown) (no date) (unknown) (unknown) Rx Instructions: (units unknown) (unknown) (unknown) (no date) (unknown) (unknown) SKIN: No rash or erythema of visible areas (units unknown) (unknown) (unknown) (no date) (unknown) (unknown) See Rx Instructions .ROUTE .COMPLEX Qty: 473 0RF (units unknown) (unknown) (unknown) (no date) (unknown) (unknown) See Rx Instructions .ROUTE .MEDSUPPLY Qty: 500 1RF (units unknown) (unknown) (unknown) (no date) (unknown) (unknown) See Rx Instructions PO .COMPLEX Qty: 60 0RF (units unknown) (unknown) (unknown) (no date) (unknown) (unknown) Signed By: (units unknown) (unknown) (unknown) (no date) (unknown) (unknown) Since patient's most recent urine culture grew Staph lugdunensis opted to treat (units unknown) (unknown) (unknown) (no date) (unknown) (unknown) Smoking Status: Current every day smoker (units unknown) (unknown) (unknown) (no date) (unknown) (unknown) Social History (units unknown) (unknown) (unknown) (no date) (unknown) (unknown) Social consideration s that may affect disposition: none (units unknown) (unknown) (unknown) (no date) (unknown) (unknown) Sodium (137-145) mmol/L (units unknown) (unknown) (unknown) (no date) (unknown) (unknown) Sodium 142 (137-145) mmol/L (units unknown) (unknown) (unknown) (no date) (unknown) (unknown) Sodium Chloride (Normal Saline 0.9%) 1,000 mls @ 1,000 mls/hr IV BOLUS ONE (units unknown) (unknown) (unknown) (no date) (unknown) (unknown) Source: patient and family (units unknown) (unknown) (unknown) (no date) (unknown) (unknown) Stated complaint: pain all over body,vomiting (units unknown) (unknown) (unknown) (no date) (unknown) (unknown) Status post appendectomy (units unknown) (unknown) (unknown) (no date) (unknown) (unknown) Stop: 08/10/22 15:39 (units unknown) (unknown) (unknown) (no date) (unknown) (unknown) Stop: 08/10/22 16:39 (units unknown) (unknown) (unknown) (no date) (unknown) (unknown) Stop: 08/10/22 16:47 (units unknown) (unknown) (unknown) (no date) (unknown) (unknown) Stop: 08/10/22 16:48 (units unknown) (unknown) (unknown) (no date) (unknown) (unknown) Stop: 08/10/22 17:05 (units unknown) (unknown) (unknown) (no date) (unknown) (unknown) Stop: 08/10/22 17:19 (units unknown) (unknown) (unknown) (no date) (unknown) (unknown) Stop: 08/10/22 17:26 (units unknown) (unknown) (unknown) (no date) (unknown) (unknown) Stop: 08/10/22 17:34 (units unknown) (unknown) (unknown) (no date) (unknown) (unknown) Stop: 08/10/22 17:36 (units unknown) (unknown) (unknown) (no date) (unknown) (unknown) Stop: 08/10/22 17:45 (units unknown) (unknown) (unknown) (no date) (unknown) (unknown) Substance Use Type: marijuana (units unknown) (unknown) (unknown) (no date) (unknown) (unknown) Surgical History (units unknown) (unknown) (unknown) (no date) (unknown) (unknown) TAKE 10 MG (10ML) BY MOUTH EVERY 6 HOURS NEEDED FOR NAUSEA AND VOMITING (units unknown) (unknown) (unknown) (no date) (unknown) (unknown) TAKE 10 MG (10ML) BY MOUTH EVERY 6 HOURS NEEDED FOR NAUSEA AND VOMITING. (units unknown) (unknown) (unknown) (no date) (unknown) (unknown) Temperature 97.9 F 08/10/22 14:28 (units unknown) (unknown) (unknown) (no date) (unknown) (unknown) Temperature 97.9 F (units unknown) (unknown) (unknown) (no date) (unknown) (unknown) Temperature (units unknown) (unknown) (unknown) (no date) (unknown) (unknown) Thiamine HCl 100 mg/ Sodium (Chloride) 101 mls @ 404 mls/hr IV NOW ONE (units unknown) (unknown) (unknown) (no date) (unknown) (unknown) This is a 27-year-ol d female with history of type 1 diabetes, cyclic vomiting (units unknown) (unknown) (unknown) (no date) (unknown) (unknown) Time Seen by Provider: 08/10/22 16:38 (units unknown) (unknown) (unknown) (no date) (unknown) (unknown) Total Bilirubin (0.2-1.3) mg/dL (units unknown) (unknown) (unknown) (no date) (unknown) (unknown) Total Bilirubin 0.7 (0.2-1.3) mg/dL (units unknown) (unknown) (unknown) (no date) (unknown) (unknown) Total Protein (6.3-8.2) g/dL (units unknown) (unknown) (unknown) (no date) (unknown) (unknown) Total Protein 8.9 H (6.3-8.2) g/dL (units unknown) (unknown) (unknown) (no date) (unknown) (unknown) Trimethoprim/Sulfame t hoxazole (Trimeth/Sulfa 160/800 (Ds) Tablet) 1 tab PO NOW (units unknown) (unknown) (unknown) (no date) (unknown) (unknown) U-100 Insulin aspart) (units unknown) (unknown) (unknown) (no date) (unknown) (unknown) UNWRAP AND INSERT 1 SUPPOSITORY RECTALLY EVERY 4 TO 6 HOURS NEEDED FOR (units unknown) (unknown) (unknown) (no date) (unknown) (unknown) Ur Renal Epithelial Cell (0-1/HPF) (units unknown) (unknown) (unknown) (no date) (unknown) (unknown) Ur Renal Epithelial Cell 1-5/hpf H (0-1/HPF) (units unknown) (unknown) (unknown) (no date) (unknown) (unknown) Ur Squamous Epith Cells (0-5/HPF) (units unknown) (unknown) (unknown) (no date) (unknown) (unknown) Ur Squamous Epith Cells 0-1 /hpf (0-5/HPF) (units unknown) (unknown) (unknown) (no date) (unknown) (unknown) Urinary tract infection type: acute cystitis Hematuria presence: without (units unknown) (unknown) (unknown) (no date) (unknown) (unknown) Urinary tract infection (units unknown) (unknown) (unknown) (no date) (unknown) (unknown) Urine Bacteria (None) (units unknown) (unknown) (unknown) (no date) (unknown) (unknown) Urine Bacteria Many (>30) H (None) (units unknown) (unknown) (unknown) (no date) (unknown) (unknown) Urine Culture Stat (units unknown) (unknown) (unknown) (no date) (unknown) (unknown) Urine Dip (units unknown) (unknown) (unknown) (no date) (unknown) (unknown) Urine Microscopic Stat (units unknown) (unknown) (unknown) (no date) (unknown) (unknown) Urine Mucus (Negative) (units unknown) (unknown) (unknown) (no date) (unknown) (unknown) Urine Mucus 1+ H (Negative) (units unknown) (unknown) (unknown) (no date) (unknown) (unknown) Urine RBC (0-5/HPF) (units unknown) (unknown) (unknown) (no date) (unknown) (unknown) Urine RBC None seen (0-5/HPF) (units unknown) (unknown) (unknown) (no date) (unknown) (unknown) Urine Specific [place] 1.030 (units unknown) (unknown) (unknown) (no date) (unknown) (unknown) Urine WBC (0-5/HPF) (units unknown) (unknown) (unknown) (no date) (unknown) (unknown) Urine WBC 5-10/hpf H (0-5/HPF) (units unknown) (unknown) (unknown) (no date) (unknown) (unknown) VBG Base Excess (0-4 ) mmol/L (units unknown) (unknown) (unknown) (no date) (unknown) (unknown) VBG Base Excess -3.0 L (0-4) mmol/L (units unknown) (unknown) (unknown) (no date) (unknown) (unknown) VBG HCO3 (24-28) mmol/L (units unknown) (unknown) (unknown) (no date) (unknown) (unknown) VBG HCO3 22 L (24-28 ) mmol/L (units unknown) (unknown) (unknown) (no date) (unknown) (unknown) VBG O2 Saturation (70-75) % (units unknown) (unknown) (unknown) (no date) (unknown) (unknown) VBG O2 Saturation 88 H (70-75) % (units unknown) (unknown) (unknown) (no date) (unknown) (unknown) VBG Total CO2 (24-29 ) mmol/L (units unknown) (unknown) (unknown) (no date) (unknown) (unknown) VBG Total CO2 23 L (24-29) mmol/L (units unknown) (unknown) (unknown) (no date) (unknown) (unknown) VBG pCO2 (45-50) mmHg (units unknown) (unknown) (unknown) (no date) (unknown) (unknown) VBG pCO2 36.2 L (45-50) mmHg (units unknown) (unknown) (unknown) (no date) (unknown) (unknown) VBG pH (7.33-7.43) (units unknown) (unknown) (unknown) (no date) (unknown) (unknown) VBG pH 7.38 (7.33-7.43) (units unknown) (unknown) (unknown) (no date) (unknown) (unknown) VBG pO2 (35-45) mmHg (units unknown) (unknown) (unknown) (no date) (unknown) (unknown) VBG pO2 56 H (35-45) mmHg (units unknown) (unknown) (unknown) (no date) (unknown) (unknown) Venous Blood Gas Stat (units unknown) (unknown) (unknown) (no date) (unknown) (unknown) Vital Signs - 8 hr (units unknown) (unknown) (unknown) (no date) (unknown) (unknown) Vital Signs (units unknown) (unknown) (unknown) (no date) (unknown) (unknown) Vital signs: (units unknown) (unknown) (unknown) (no date) (unknown) (unknown) Vomiting type: unspecified Qualified Code(s): R11.2 - Nausea with vomiting, (units unknown) (unknown) (unknown) (no date) (unknown) (unknown) WBC (4.5-11.0) X103/uL (units unknown) (unknown) (unknown) (no date) (unknown) (unknown) WBC 20.0 H (4.5-11.0 ) X103/uL (units unknown) (unknown) (unknown) (no date) (unknown) (unknown) WITH MIGRAINE. (units unknown) (unknown) (unknown) (no date) (unknown) (unknown) [ ] New medication written as a paper prescription (units unknown) (unknown) (unknown) (no date) (unknown) (unknown) [ ] No new medications given (units unknown) (unknown) (unknown) (no date) (unknown) (unknown) [Embedded Image Not Available] (units unknown) (unknown) (unknown) (no date) (unknown) (unknown) [x ] New medication prescriptions sent to your pharmacy: [ ] (units unknown) (unknown) (unknown) (no date) (unknown) (unknown) alcohol intake frequency: holidays/special occasions only (units unknown) (unknown) (unknown) (no date) (unknown) (unknown) alcohol intake: never (units unknown) (unknown) (unknown) (no date) (unknown) (unknown) ambulatory with steady gait (units unknown) (unknown) (unknown) (no date) (unknown) (unknown) and below (units unknown) (unknown) (unknown) (no date) (unknown) (unknown) at least for an update. Let them know you were seen in the Emergency Department (units unknown) (unknown) (unknown) (no date) (unknown) (unknown) bilateral CVA tenderness to palpation no suprapubic tenderness, patient (units unknown) (unknown) (unknown) (no date) (unknown) (unknown) comfortably. Repeat BMP and CBC were requested (units unknown) (unknown) (unknown) (no date) (unknown) (unknown) culture from 11/14/2021 grew Staph lugdunensis which showed full susceptibility, (units unknown) (unknown) (unknown) (no date) (unknown) (unknown) denies fever chills, vision changes, diarrhea, upper respiratory infection (units unknown) (unknown) (unknown) (no date) (unknown) (unknown) emergency department today for intractable vomiting with nausea who presents (units unknown) (unknown) (unknown) (no date) (unknown) (unknown) emergency department today with intractable nausea vomiting since 04:00. She (units unknown) (unknown) (unknown) (no date) (unknown) (unknown) endorses bilateral low back pain, and history of UTIs. States that she feels a (units unknown) (unknown) (unknown) (no date) (unknown) (unknown) endorses vaginal discharge but states it is normal and not with odor. (units unknown) (unknown) (unknown) (no date) (unknown) (unknown) establish care with one of the [facility] primary care providers. (units unknown) (unknown) (unknown) (no date) (unknown) (unknown) evaluation, she ende d up having an elevated lactate, her nausea vomiting has (units unknown) (unknown) (unknown) (no date) (unknown) (unknown) for the above problem. We will electronically transmit a record of today's note (units unknown) (unknown) (unknown) (no date) (unknown) (unknown) hematuria Qualified Code(s): N30.00 - Acute cystitis without hematuria (units unknown) (unknown) (unknown) (no date) (unknown) (unknown) hemoconcentration compared with prior lab work, there is a left shift however (units unknown) (unknown) (unknown) (no date) (unknown) (unknown) her feel better. She was given 2 L of normal saline, thiamine, Reglan, (units unknown) (unknown) (unknown) (no date) (unknown) (unknown) household members: spouse (units unknown) (unknown) (unknown) (no date) (unknown) (unknown) icterus. No injectio n or drainage. (units unknown) (unknown) (unknown) (no date) (unknown) (unknown) if your PCP or specialist is in our system. (units unknown) (unknown) (unknown) (no date) (unknown) (unknown) improved, ask her to leave a urine sample, she is currently in the bathroom, (units unknown) (unknown) (unknown) (no date) (unknown) (unknown) infection. You are quite dehydrated today but you are not in DKA, I am sorry (units unknown) (unknown) (unknown) (no date) (unknown) (unknown) insulin aspart U-100 100 unit/mL 1 sliding scale dose SUBCUT 10/04/21 (units unknown) (unknown) (unknown) (no date) (unknown) (unknown) insulin aspart U-100 [Novolog U-100 Insulin aspart] 100 unit/mL solution (units unknown) (unknown) (unknown) (no date) (unknown) (unknown) insulin syringes (disposable) 1 mL #500 ea 08/04/20 (units unknown) (unknown) (unknown) (no date) (unknown) (unknown) insulin, she took he r insulin 4 units via her insulin pump for a blood sugar of (units unknown) (unknown) (unknown) (no date) (unknown) (unknown) interactive (units unknown) (unknown) (unknown) (no date) (unknown) (unknown) ketorolac [From Toradol] Allergy Verified 08/10/22 14:43 (units unknown) (unknown) (unknown) (no date) (unknown) (unknown) liquids down, fever greater than 101F, chills, or other concerning symptom. (units unknown) (unknown) (unknown) (no date) (unknown) (unknown) lot of pain all over her body, states that her pain history is complicated. She (units unknown) (unknown) (unknown) (no date) (unknown) (unknown) metoclopramide HCl 5 mg/5 mL oral See Rx Instructions .Route 01/28/22 (units unknown) (unknown) (unknown) (no date) (unknown) (unknown) metoclopramide HCl 5 mg/5 mL solution (units unknown) (unknown) (unknown) (no date) (unknown) (unknown) mg-trimethoprim 160 mg tablet (units unknown) (unknown) (unknown) (no date) (unknown) (unknown) microscopy his significant for many bacteria without contaminant, RBCs. (units unknown) (unknown) (unknown) (no date) (unknown) (unknown) normal potassium level, bilateral CVA tenderness concerning for pyelonephritis (units unknown) (unknown) (unknown) (no date) (unknown) (unknown) not keep her medication down, or if you develop fever and chills. (units unknown) (unknown) (unknown) (no date) (unknown) (unknown) obvious distress, tearful, anxious, shaking (units unknown) (unknown) (unknown) (no date) (unknown) (unknown) pantoprazole 40 mg tablet,delayed 40 mg PO BID #30 tabs 02/07/22 (units unknown) (unknown) (unknown) (no date) (unknown) (unknown) pantoprazole 40 mg tablet,delayed release (DR/EC) (units unknown) (unknown) (unknown) (no date) (unknown) (unknown) patient is dehydrated, VBG pH of 7.38 with a pCO2 of 36.2, PO2 of 56, bicarb of (units unknown) (unknown) (unknown) (no date) (unknown) (unknown) patient with ceftriaxone and Bactrim after her nausea and vomiting improve. (units unknown) (unknown) (unknown) (no date) (unknown) (unknown) procalcitonin, blood cultures are pending (units unknown) (unknown) (unknown) (no date) (unknown) (unknown) promethazine 12.5 mg tablet 12.5 mg PO BID PRN sedation #14 08/10/22 (units unknown) (unknown) (unknown) (no date) (unknown) (unknown) promethazine 12.5 mg tablet (units unknown) (unknown) (unknown) (no date) (unknown) (unknown) promethazine 25 mg rectal 25 mg PA Q4-6H PRN Nausea And 01/27/22 02/07/22 (units unknown) (unknown) (unknown) (no date) (unknown) (unknown) promethazine [Promethegan] 25 mg suppository (units unknown) (unknown) (unknown) (no date) (unknown) (unknown) rales, or rhonchi.? (units unknown) (unknown) (unknown) (no date) (unknown) (unknown) related to urinary tract infection. We will follow-up on UA, added on (units unknown) (unknown) (unknown) (no date) (unknown) (unknown) release (units unknown) (unknown) (unknown) (no date) (unknown) (unknown) adelaiptan 10 mg tablet (Maxalt) See Rx Instructions PO .COMPLEX 01/29/22 (units unknown) (unknown) (unknown) (no date) (unknown) (unknown) rizatriptan [Maxalt] 10 mg tablet (units unknown) (unknown) (unknown) (no date) (unknown) (unknown) she is also had grou p B strep UTI from 10/06/2021, UA from 06/27/2021 grew (units unknown) (unknown) (unknown) (no date) (unknown) (unknown) solution .COMPLEX #473 mL (units unknown) (unknown) (unknown) (no date) (unknown) (unknown) staph epidermis whic h had full susceptibility as well (units unknown) (unknown) (unknown) (no date) (unknown) (unknown) subcutaneous solutio n (Novolog USEASDIRECTD #10 mL (units unknown) (unknown) (unknown) (no date) (unknown) (unknown) sulfamethoxazole 800 1 tab PO BID 10 days #20 tabs 08/10/22 (units unknown) (unknown) (unknown) (no date) (unknown) (unknown) sulfamethoxazole-tri m ethoprim [Bactrim DS] 800-160 mg tablet (units unknown) (unknown) (unknown) (no date) (unknown) (unknown) suppository (Promethegan) Vomiting (units unknown) (unknown) (unknown) (no date) (unknown) (unknown) symptoms or other ne w problem. Her PCP is Dr. Trevino. (units unknown) (unknown) (unknown) (no date) (unknown) (unknown) syndrome, gastroparesis, DKA, appendectomy, pancreatitis who presents to the (units unknown) (unknown) (unknown) (no date) (unknown) (unknown) tabs (units unknown) (unknown) (unknown) (no date) (unknown) (unknown) take 1 tab at onset of headache; if no relief may repeat 1 tab after at least (units unknown) (unknown) (unknown) (no date) (unknown) (unknown) that you did not fee l well. I have prescribed for you some more Phenergan, and (units unknown) (unknown) (unknown) (no date) (unknown) (unknown) to: UTI, pyelonephritis, nephrolithiasis (units unknown) (unknown) (unknown) (no date) (unknown) (unknown) tobacco type: vaping (units unknown) (unknown) (unknown) (no date) (unknown) (unknown) unspecified (units unknown) (unknown) (unknown) (no date) (unknown) (unknown) well as prior record s if available. Pertinent records include: Prior urine (units unknown) (unknown) (unknown) (no date) (unknown) (unknown) will treat her lacti c acidosis with a secondary L of normal saline, she has a (units unknown) (unknown) (unknown) (no date) (unknown) (unknown) you start feeling better soon, please return for worsening condition if you can (units unknown) (unknown) Result panel [id number] (unknown) (no date) (unknown) (unknown) (no value) (units unknown) (unknown) (unknown) (no date) (unknown) (unknown) #60 tabs (units unknown) (unknown) (unknown) (no date) (unknown) (unknown) #: [id number] (units unknown) (unknown) (unknown) (no date) (unknown) (unknown) (Bactrim DS) (units unknown) (unknown) (unknown) (no date) (unknown) (unknown) (DME) insulin syringes (disposable) 1 mL syringe (units unknown) (unknown) (unknown) (no date) (unknown) (unknown) *If you do not have a primary care provider please contact [phone] to (units unknown) (unknown) (unknown) (no date) (unknown) (unknown) *Please call and schedule follow up with your primary care provider in 2-3 days, (units unknown) (unknown) (unknown) (no date) (unknown) (unknown) *Please continue to take your regular medications as directed. (units unknown) (unknown) (unknown) (no date) (unknown) (unknown) *Return to the Emergency Department for worsening symptoms, inability to keep (units unknown) (unknown) (unknown) (no date) (unknown) (unknown) *What to do: (units unknown) (unknown) (unknown) (no date) (unknown) (unknown) *You have been diagnosed with urinary tract infection with concern for kidney (units unknown) (unknown) (unknown) (no date) (unknown) (unknown) 08/10/22 08/10/22 08/10/22 Range/Units (units unknown) (unknown) (unknown) (no date) (unknown) (unknown) 08/10/22 08/10/22 Range/Units (units unknown) (unknown) (unknown) (no date) (unknown) (unknown) 08/10/22 14:40 (units unknown) (unknown) (unknown) (no date) (unknown) (unknown) 08/10/22 14:50 (units unknown) (unknown) (unknown) (no date) (unknown) (unknown) 08/10/22 15:40 (units unknown) (unknown) (unknown) (no date) (unknown) (unknown) 08/10/22 15:45 (units unknown) (unknown) (unknown) (no date) (unknown) (unknown) 08/10/22 17:06 (units unknown) (unknown) (unknown) (no date) (unknown) (unknown) 08/10/22 17:45 (units unknown) (unknown) (unknown) (no date) (unknown) (unknown) 08/10/22 (units unknown) (unknown) (unknown) (no date) (unknown) (unknown) 1 sliding scale dose SUBCUT USEASDIRECTD Qty: 10 3RF (units unknown) (unknown) (unknown) (no date) (unknown) (unknown) 1 tab PO BID 10 Days Qty: 20 0RF (units unknown) (unknown) (unknown) (no date) (unknown) (unknown) 12.5 mg PO BID PRN (Reason: sedation) Qty: 14 0RF (units unknown) (unknown) (unknown) (no date) (unknown) (unknown) 14:28 08/10/22 (units unknown) (unknown) (unknown) (no date) (unknown) (unknown) 14:50 14:50 14:50 (units unknown) (unknown) (unknown) (no date) (unknown) (unknown) 15:45 17:06 (units unknown) (unknown) (unknown) (no date) (unknown) (unknown) 16:04 08/10/22 (units unknown) (unknown) (unknown) (no date) (unknown) (unknown) 16:14 (units unknown) (unknown) (unknown) (no date) (unknown) (unknown) 2 hrs; max = 3 tabs/24 hr PO (units unknown) (unknown) (unknown) (no date) (unknown) (unknown) 22, total CO2 of 23, O2 sat of 88 and base excess of -3 on room air, urine (units unknown) (unknown) (unknown) (no date) (unknown) (unknown) 25 mg PA Q4-6H PRN (Reason: Nausea And Vomiting) (units unknown) (unknown) (unknown) (no date) (unknown) (unknown) 332 on her personal CGM. Patient received 1 L normal saline prior to my (units unknown) (unknown) (unknown) (no date) (unknown) (unknown) 40 mg PO BID Qty: 30 0RF (units unknown) (unknown) (unknown) (no date) (unknown) (unknown) ALT (<35) IU/L (units unknown) (unknown) (unknown) (no date) (unknown) (unknown) ALT 19 (<35) IU/L (units unknown) (unknown) (unknown) (no date) (unknown) (unknown) APTT (26-36) SECONDS (units unknown) (unknown) (unknown) (no date) (unknown) (unknown) APTT 29 (26-36) SECONDS (units unknown) (unknown) (unknown) (no date) (unknown) (unknown) AST (14-36) IU/L (units unknown) (unknown) (unknown) (no date) (unknown) (unknown) AST 27 (14-36) IU/L (units unknown) (unknown) (unknown) (no date) (unknown) (unknown) Activity Restrictions/Addition al Instructions: (units unknown) (unknown) (unknown) (no date) (unknown) (unknown) Admin: 08/10/22 15:0 7 Dose: 1,000 mls/hr (units unknown) (unknown) (unknown) (no date) (unknown) (unknown) Admin: 08/10/22 17:1 4 Dose: 404 mls/hr (units unknown) (unknown) (unknown) (no date) (unknown) (unknown) Age/Sex: 27 / F (units unknown) (unknown) (unknown) (no date) (unknown) (unknown) Albumin (3.5-5.0) g/dL (units unknown) (unknown) (unknown) (no date) (unknown) (unknown) Albumin 5.2 H (3.5-5.0) g/dL (units unknown) (unknown) (unknown) (no date) (unknown) (unknown) Albumin/Globulin Ratio (1.0-2.8) (units unknown) (unknown) (unknown) (no date) (unknown) (unknown) Albumin/Globulin Ratio 1.4 (1.0-2.8) (units unknown) (unknown) (unknown) (no date) (unknown) (unknown) Alkaline Phosphatase (38-126) U/L (units unknown) (unknown) (unknown) (no date) (unknown) (unknown) Alkaline Phosphatase 130 H (38-126) U/L (units unknown) (unknown) (unknown) (no date) (unknown) (unknown) Allergies (units unknown) (unknown) (unknown) (no date) (unknown) (unknown) Allergy/AdvReac Type Severity Reaction Status Date / Time (units unknown) (unknown) (unknown) (no date) (unknown) (unknown) Amoxicillin/Clavulan a te Potassium (Amoxicillin/Clav 875/125 Mg) 1 tab PO NOW (units unknown) (unknown) (unknown) (no date) (unknown) (unknown) Anemia (units unknown) (unknown) (unknown) (no date) (unknown) (unknown) As directed for use with insulin injections (units unknown) (unknown) (unknown) (no date) (unknown) (unknown) BMP [Basic Metabolic Panel] Stat (units unknown) (unknown) (unknown) (no date) (unknown) (unknown) BUN (7-17) mg/dL (units unknown) (unknown) (unknown) (no date) (unknown) (unknown) BUN 21 H (7-17) mg/dL (units unknown) (unknown) (unknown) (no date) (unknown) (unknown) BUN/Creatinine Ratio (6-22) (units unknown) (unknown) (unknown) (no date) (unknown) (unknown) BUN/Creatinine Ratio 33.9 H (6-22) (units unknown) (unknown) (unknown) (no date) (unknown) (unknown) Baso # (Auto) (0-100 ) /uL (units unknown) (unknown) (unknown) (no date) (unknown) (unknown) Baso # (Auto) 0 (0-100) /uL (units unknown) (unknown) (unknown) (no date) (unknown) (unknown) Baso % (Auto) (0-2) % (units unknown) (unknown) (unknown) (no date) (unknown) (unknown) Baso % (Auto) 0.1 (0-2) % (units unknown) (unknown) (unknown) (no date) (unknown) (unknown) Bedside Urine Bilirubin - Negative (units unknown) (unknown) (unknown) (no date) (unknown) (unknown) Bedside Urine Glucos e 1000 mg/dl (units unknown) (unknown) (unknown) (no date) (unknown) (unknown) Bedside Urine Ketone +++ 80 (units unknown) (unknown) (unknown) (no date) (unknown) (unknown) Bedside Urine Leukocytes - Negative (units unknown) (unknown) (unknown) (no date) (unknown) (unknown) Bedside Urine Nitrit e + Positive (units unknown) (unknown) (unknown) (no date) (unknown) (unknown) Bedside Urine Occult Blood (units unknown) (unknown) (unknown) (no date) (unknown) (unknown) Bedside Urine Protei n + 30 (units unknown) (unknown) (unknown) (no date) (unknown) (unknown) Bedside Urine Urobilinogen - Negative (units unknown) (unknown) (unknown) (no date) (unknown) (unknown) Bedside Urine pH 6.0 (units unknown) (unknown) (unknown) (no date) (unknown) (unknown) Blood Culture Stat (units unknown) (unknown) (unknown) (no date) (unknown) (unknown) Blood Pressure 128/7 8 08/10/22 14:28 (units unknown) (unknown) (unknown) (no date) (unknown) (unknown) Blood Pressure 128/7 8 113/58 L (units unknown) (unknown) (unknown) (no date) (unknown) (unknown) Blood Pressure (units unknown) (unknown) (unknown) (no date) (unknown) (unknown) CARDIOVASCULAR: Regular rate and rhythm without murmurs, gallops, or rubs. (units unknown) (unknown) (unknown) (no date) (unknown) (unknown) CBC No Diff [Complet e Blood Count NO DIFF] Stat (units unknown) (unknown) (unknown) (no date) (unknown) (unknown) Calcium (8.4-10.2) mg/dL (units unknown) (unknown) (unknown) (no date) (unknown) (unknown) Calcium 9.4 (8.4-10.2) mg/dL (units unknown) (unknown) (unknown) (no date) (unknown) (unknown) Carbon Dioxide (22-32) mmol/L (units unknown) (unknown) (unknown) (no date) (unknown) (unknown) Carbon Dioxide 21 L (22-32) mmol/L (units unknown) (unknown) (unknown) (no date) (unknown) (unknown) Ceftriaxone Sodium 1,000 mg/ (Sodium Chloride) 100 mls @ 200 mls/hr IV NOW ONE (units unknown) (unknown) (unknown) (no date) (unknown) (unknown) Chief Complaint: Nausea vomiting, type 1 diabetes (units unknown) (unknown) (unknown) (no date) (unknown) (unknown) Chief complaint: Nausea/Vomiting/Diarr hea (units unknown) (unknown) (unknown) (no date) (unknown) (unknown) Chloride (98-107) mmol/L (units unknown) (unknown) (unknown) (no date) (unknown) (unknown) Chloride 106 (98-107 ) mmol/L (units unknown) (unknown) (unknown) (no date) (unknown) (unknown) Clinical Impression: (units unknown) (unknown) (unknown) (no date) (unknown) (unknown) Complete Blood Count AUTO DIFF Stat (units unknown) (unknown) (unknown) (no date) (unknown) (unknown) Comprehensive Metabolic Panel Stat (units unknown) (unknown) (unknown) (no date) (unknown) (unknown) Course of care: Patient was asking for pain medication prior to giving her (units unknown) (unknown) (unknown) (no date) (unknown) (unknown) Course (units unknown) (unknown) (unknown) (no date) (unknown) (unknown) Creatinine (0.52-1.04) mg/dL (units unknown) (unknown) (unknown) (no date) (unknown) (unknown) Creatinine 0.62 (0.52-1.04) mg/dL (units unknown) (unknown) (unknown) (no date) (unknown) (unknown) Cyclic vomiting syndrome (units unknown) (unknown) (unknown) (no date) (unknown) (unknown) DKA (diabetic ketoacidoses) (units unknown) (unknown) (unknown) (no date) (unknown) (unknown) : 1995 Acct:[id number] (units unknown) (unknown) (unknown) (no date) (unknown) (unknown) Date of Service: 08/10/22 (units unknown) (unknown) (unknown) (no date) (unknown) (unknown) Departure (units unknown) (unknown) (unknown) (no date) (unknown) (unknown) Diabetes mellitus, type I (units unknown) (unknown) (unknown) (no date) (unknown) (unknown) Diazepam (Diazepam 1 0 Mg/2 Ml Syringe) 2 mg IV NOW ONE (units unknown) (unknown) (unknown) (no date) (unknown) (unknown) Discharge Plan (units unknown) (unknown) (unknown) (no date) (unknown) (unknown) Discontinued Medications (units unknown) (unknown) (unknown) (no date) (unknown) (unknown) Documented By: NR (units unknown) (unknown) (unknown) (no date) (unknown) (unknown) Documented By: RL (units unknown) (unknown) (unknown) (no date) (unknown) (unknown) Dose Instruction: (units unknown) (unknown) (unknown) (no date) (unknown) (unknown) ED Orders (units unknown) (unknown) (unknown) (no date) (unknown) (unknown) ENT: Nose without bleeding, purulent drainage. Airway patent. (units unknown) (unknown) (unknown) (no date) (unknown) (unknown) ER Physician: CrewKarol (units unknown) (unknown) (unknown) (no date) (unknown) (unknown) EXTREMITIES: Normal mobility and range of motion, without any weakness, (units unknown) (unknown) (unknown) (no date) (unknown) (unknown) EYES: Pupils equal round and reactive. Extraocular motions intact. No scleral (units unknown) (unknown) (unknown) (no date) (unknown) (unknown) Emergency Report (units unknown) (unknown) (unknown) (no date) (unknown) (unknown) Eos # (Auto) (0-450) /uL (units unknown) (unknown) (unknown) (no date) (unknown) (unknown) Eos # (Auto) 0 (0-450) /uL (units unknown) (unknown) (unknown) (no date) (unknown) (unknown) Eos % (Auto) (2-4) % (units unknown) (unknown) (unknown) (no date) (unknown) (unknown) Eos % (Auto) 0.0 L (2-4) % (units unknown) (unknown) (unknown) (no date) (unknown) (unknown) Esterase (units unknown) (unknown) (unknown) (no date) (unknown) (unknown) Estimated GFR > 60 (>60) mL/min (units unknown) (unknown) (unknown) (no date) (unknown) (unknown) Estimated GFR (>60) mL/min (units unknown) (unknown) (unknown) (no date) (unknown) (unknown) Exam Narrative: (units unknown) (unknown) (unknown) (no date) (unknown) (unknown) Exam (units unknown) (unknown) (unknown) (no date) (unknown) (unknown) Family History (units unknown) (unknown) (unknown) (no date) (unknown) (unknown) Father Healthy adult (units unknown) (unknown) (unknown) (no date) (unknown) (unknown) FiO2 21 (units unknown) (unknown) (unknown) (no date) (unknown) (unknown) FiO2 (units unknown) (unknown) (unknown) (no date) (unknown) (unknown) GASTROINTESTINAL: Abdomen soft, generalized tenderness, nondistended, no masses, (units unknown) (unknown) (unknown) (no date) (unknown) (unknown) GENERAL: [26] year old patient appears stated age. Well-developed patient, in (units unknown) (unknown) (unknown) (no date) (unknown) (unknown) Gastroparesis (units unknown) (unknown) (unknown) (no date) (unknown) (unknown) General (units unknown) (unknown) (unknown) (no date) (unknown) (unknown) Globulin (1.7-4.1) g/dL (units unknown) (unknown) (unknown) (no date) (unknown) (unknown) Globulin 3.7 (1.7-4.1) g/dL (units unknown) (unknown) (unknown) (no date) (unknown) (unknown) Glucose (70-100) mg/dL (units unknown) (unknown) (unknown) (no date) (unknown) (unknown) Glucose 221 H (70-100) mg/dL (units unknown) (unknown) (unknown) (no date) (unknown) (unknown) Glucose POC 350 (units unknown) (unknown) (unknown) (no date) (unknown) (unknown) HEAD: Atraumatic. Symmetrical face expressions (units unknown) (unknown) (unknown) (no date) (unknown) (unknown) HPI - Nausea/Vomiting/Diarr hea (units unknown) (unknown) (unknown) (no date) (unknown) (unknown) HPI Narrative: (units unknown) (unknown) (unknown) (no date) (unknown) (unknown) Hct (36-46) % (units unknown) (unknown) (unknown) (no date) (unknown) (unknown) Hct 37.5 (36-46) % (units unknown) (unknown) (unknown) (no date) (unknown) (unknown) Hgb (12.0-16.0) g/dL (units unknown) (unknown) (unknown) (no date) (unknown) (unknown) Hgb 12.4 (12.0-16.0) g/dL (units unknown) (unknown) (unknown) (no date) (unknown) (unknown) History of Present Illness (units unknown) (unknown) (unknown) (no date) (unknown) (unknown) Home Medications (units unknown) (unknown) (unknown) (no date) (unknown) (unknown) Delonte Trevino MD [Primary Care Provider] (units unknown) (unknown) (unknown) (no date) (unknown) (unknown) Hyaline Casts (None) (units unknown) (unknown) (unknown) (no date) (unknown) (unknown) Hyaline Casts 1-5/lp f (None) (units unknown) (unknown) (unknown) (no date) (unknown) (unknown) Hydromorphone HCl (Hydromorphone 0.5 Mg Inj) 0.5 mg IV NOW ONE (units unknown) (unknown) (unknown) (no date) (unknown) (unknown) I have independently reviewed the patient's vital signs and nursing notes as (units unknown) (unknown) (unknown) (no date) (unknown) (unknown) I hope that you can use medications to help keep your antibiotics down. I hope (units unknown) (unknown) (unknown) (no date) (unknown) (unknown) INR (0.9-1.3) (units unknown) (unknown) (unknown) (no date) (unknown) (unknown) INR 1.3 (0.9-1.3) (units unknown) (unknown) (unknown) (no date) (unknown) (unknown) Independent historian: Patient and her sister Celsa (units unknown) (unknown) (unknown) (no date) (unknown) (unknown) Initial Vital Signs (units unknown) (unknown) (unknown) (no date) (unknown) (unknown) Initial Vital Signs: (units unknown) (unknown) (unknown) (no date) (unknown) (unknown) Instructions: DI for Dehydration -- Adult, DI for Urinary Tract Infection (UTI) (units unknown) (unknown) (unknown) (no date) (unknown) (unknown) Insulin dependent diabetes mellitus (units unknown) (unknown) (unknown) (no date) (unknown) (unknown) [address] [address] (units unknown) (unknown) (unknown) (no date) (unknown) (unknown) Ketones (<0.27) mmol/L (units unknown) (unknown) (unknown) (no date) (unknown) (unknown) Ketones (Beta-Hydroxybutyrate ) Stat (units unknown) (unknown) (unknown) (no date) (unknown) (unknown) Ketones 1.46 H (<0.27) mmol/L (units unknown) (unknown) (unknown) (no date) (unknown) (unknown) Lab Data (units unknown) (unknown) (unknown) (no date) (unknown) (unknown) Lab Results (units unknown) (unknown) (unknown) (no date) (unknown) (unknown) Labs: (units unknown) (unknown) (unknown) (no date) (unknown) (unknown) Lactate (0.7-2.1) mmol/L (units unknown) (unknown) (unknown) (no date) (unknown) (unknown) Lactate (Lactic Acid ) Stat (units unknown) (unknown) (unknown) (no date) (unknown) (unknown) Lactate 2.8 H (0.7-2.1) mmol/L (units unknown) (unknown) (unknown) (no date) (unknown) (unknown) Last Admin: 08/10/22 15:09 Dose: 4 mg (units unknown) (unknown) (unknown) (no date) (unknown) (unknown) Last Admin: 08/10/22 17:10 Dose: 0.5 mg (units unknown) (unknown) (unknown) (no date) (unknown) (unknown) Last Admin: 08/10/22 17:14 Dose: 10 mg (units unknown) (unknown) (unknown) (no date) (unknown) (unknown) Last Admin: 08/10/22 17:16 Dose: 1,000 mls/hr (units unknown) (unknown) (unknown) (no date) (unknown) (unknown) Last Admin: 08/10/22 18:05 Dose: 2 mg (units unknown) (unknown) (unknown) (no date) (unknown) (unknown) Last Admin: 08/10/22 18:06 Dose: 200 mls/hr (units unknown) (unknown) (unknown) (no date) (unknown) (unknown) Last Admin: 08/10/22 18:06 Dose: 40 mg (units unknown) (unknown) (unknown) (no date) (unknown) (unknown) Last Admin: 08/10/22 18:09 Dose: Not Given (units unknown) (unknown) (unknown) (no date) (unknown) (unknown) Last Infusion: 08/10/22 17:24 Dose: 0 mls/hr (units unknown) (unknown) (unknown) (no date) (unknown) (unknown) Last Infusion: 08/10/22 18:08 Dose: 404 mls/hr (units unknown) (unknown) (unknown) (no date) (unknown) (unknown) Lipase (23-300) U/L (units unknown) (unknown) (unknown) (no date) (unknown) (unknown) Lipase 16 L (23-300) U/L (units unknown) (unknown) (unknown) (no date) (unknown) (unknown) Lipase Stat (units unknown) (unknown) (unknown) (no date) (unknown) (unknown) Lymph # (Auto) (4562-7125) /uL (units unknown) (unknown) (unknown) (no date) (unknown) (unknown) Lymph # (Auto) 1000 L (3167-4131) /uL (units unknown) (unknown) (unknown) (no date) (unknown) (unknown) Lymph % (Auto) (25-40) % (units unknown) (unknown) (unknown) (no date) (unknown) (unknown) Lymph % (Auto) 5.1 L (25-40) % (units unknown) (unknown) (unknown) (no date) (unknown) (unknown) MCH (26-34) PG (units unknown) (unknown) (unknown) (no date) (unknown) (unknown) MCH 25.6 L (26-34) PG (units unknown) (unknown) (unknown) (no date) (unknown) (unknown) MCHC (30-36) % (units unknown) (unknown) (unknown) (no date) (unknown) (unknown) MCHC 33.1 (30-36) % (units unknown) (unknown) (unknown) (no date) (unknown) (unknown) MCV (80-100) fL (units unknown) (unknown) (unknown) (no date) (unknown) (unknown) MCV 77.3 L (80-100) fL (units unknown) (unknown) (unknown) (no date) (unknown) (unknown) MDM - Nausea/Vomiting/Diarr hea (units unknown) (unknown) (unknown) (no date) (unknown) (unknown) MDM Narrative (units unknown) (unknown) (unknown) (no date) (unknown) (unknown) Medical History (units unknown) (unknown) (unknown) (no date) (unknown) (unknown) Medical decision making narrative: (units unknown) (unknown) (unknown) (no date) (unknown) (unknown) Medication Instructions Recorded Confirmed (units unknown) (unknown) (unknown) (no date) (unknown) (unknown) Medication Instructions Recorded (units unknown) (unknown) (unknown) (no date) (unknown) (unknown) Metoclopramide HCl (Metoclopramide 10 Mg/2 Ml Inj) 10 mg IV NOW ONE (units unknown) (unknown) (unknown) (no date) (unknown) (unknown) Migraine headache with aura (units unknown) (unknown) (unknown) (no date) (unknown) (unknown) Mode of arrival: Family Vehicle (units unknown) (unknown) (unknown) (no date) (unknown) (unknown) [place] # (Auto) (0-900 ) /uL (units unknown) (unknown) (unknown) (no date) (unknown) (unknown) [place] # (Auto) 400 (0-900) /uL (units unknown) (unknown) (unknown) (no date) (unknown) (unknown) [place] % (Auto) (3-14) % (units unknown) (unknown) (unknown) (no date) (unknown) (unknown) [place] % (Auto) 1.8 L (3-14) % (units unknown) (unknown) (unknown) (no date) (unknown) (unknown) Mother Hypertension (units unknown) (unknown) (unknown) (no date) (unknown) (unknown) Multiple etiologies for patient's symptoms considered including, but not limited (units unknown) (unknown) (unknown) (no date) (unknown) (unknown) My interpretation of imaging: (units unknown) (unknown) (unknown) (no date) (unknown) (unknown) My interpretation of lab studies: CBC is elevated at 20 with mild (units unknown) (unknown) (unknown) (no date) (unknown) (unknown) Myopia (units unknown) (unknown) (unknown) (no date) (unknown) (unknown) NAUSEA OR VOMITING (units unknown) (unknown) (unknown) (no date) (unknown) (unknown) NECK: Trachea midline. Non tender (units unknown) (unknown) (unknown) (no date) (unknown) (unknown) NEURO: AOx3, speech is clear, patient is ambulatory and appropriately (units unknown) (unknown) (unknown) (no date) (unknown) (unknown) Narrative (units unknown) (unknown) (unknown) (no date) (unknown) (unknown) Nausea and vomiting (units unknown) (unknown) (unknown) (no date) (unknown) (unknown) Neut # (Auto) (4582-2784) /uL (units unknown) (unknown) (unknown) (no date) (unknown) (unknown) Neut # (Auto) 13867 H (4248-3447) /uL (units unknown) (unknown) (unknown) (no date) (unknown) (unknown) Neut % (Auto) (50-75 ) % (units unknown) (unknown) (unknown) (no date) (unknown) (unknown) Neut % (Auto) 93.0 H (50-75) % (units unknown) (unknown) (unknown) (no date) (unknown) (unknown) New (units unknown) (unknown) (unknown) (no date) (unknown) (unknown) No Action (units unknown) (unknown) (unknown) (no date) (unknown) (unknown) ONE (units unknown) (unknown) (unknown) (no date) (unknown) (unknown) Ondansetron HCl (Ondansetron 4 Mg Odt) 4 mg SL NOW PRN (units unknown) (unknown) (unknown) (no date) (unknown) (unknown) Ondansetron HCl (Ondansetron 4 Mg/2 Ml Inj) 4 mg IV NOW PRN (units unknown) (unknown) (unknown) (no date) (unknown) (unknown) Ordered: (units unknown) (unknown) (unknown) (no date) (unknown) (unknown) Orders (units unknown) (unknown) (unknown) (no date) (unknown) (unknown) Oxygen Delivery Method Room Air 08/10/22 14:28 (units unknown) (unknown) (unknown) (no date) (unknown) (unknown) Oxygen Delivery Method Room Air (units unknown) (unknown) (unknown) (no date) (unknown) (unknown) Oxygen Delivery Method (units unknown) (unknown) (unknown) (no date) (unknown) (unknown) PRN Reason: Nausea And Vomiting (units unknown) (unknown) (unknown) (no date) (unknown) (unknown) PT (10.1-12.7) SECONDS (units unknown) (unknown) (unknown) (no date) (unknown) (unknown) PT 14.5 H (10.1-12.7 ) SECONDS (units unknown) (unknown) (unknown) (no date) (unknown) (unknown) PTT Partial Thromboplastin Sonny Stat (units unknown) (unknown) (unknown) (no date) (unknown) (unknown) Pancreatitis (units unknown) (unknown) (unknown) (no date) (unknown) (unknown) Pantoprazole Sodium (Pantoprazole 40 Mg Vial) 40 mg IV NOW ONE (units unknown) (unknown) (unknown) (no date) (unknown) (unknown) Patient Comments: (units unknown) (unknown) (unknown) (no date) (unknown) (unknown) Patient History (units unknown) (unknown) (unknown) (no date) (unknown) (unknown) Patient is appropriate for outpatient management. (units unknown) (unknown) (unknown) (no date) (unknown) (unknown) Patient: Kaur Horton MR (units unknown) (unknown) (unknown) (no date) (unknown) (unknown) Plt Count (150-400) X103/uL (units unknown) (unknown) (unknown) (no date) (unknown) (unknown) Plt Count 327 (150-400) X103/uL (units unknown) (unknown) (unknown) (no date) (unknown) (unknown) Point of Care Testing (units unknown) (unknown) (unknown) (no date) (unknown) (unknown) Potassium (3.4-5.1) mmol/L (units unknown) (unknown) (unknown) (no date) (unknown) (unknown) Potassium 4.1 (3.4-5.1) mmol/L (units unknown) (unknown) (unknown) (no date) (unknown) (unknown) Prescriptions: (units unknown) (unknown) (unknown) (no date) (unknown) (unknown) Previous Rx's (units unknown) (unknown) (unknown) (no date) (unknown) (unknown) Procalcitonin (<0.5) ng/mL (units unknown) (unknown) (unknown) (no date) (unknown) (unknown) Procalcitonin 0.34 (<0.5) ng/mL (units unknown) (unknown) (unknown) (no date) (unknown) (unknown) Procalcitonin Cancelled (<0.5) ng/mL (units unknown) (unknown) (unknown) (no date) (unknown) (unknown) Procalcitonin Stat (units unknown) (unknown) (unknown) (no date) (unknown) (unknown) Prothrombin Time INR Stat (units unknown) (unknown) (unknown) (no date) (unknown) (unknown) Protonix, ceftriaxone, Bactrim, Dilaudid, and Valium. She was resting (units unknown) (unknown) (unknown) (no date) (unknown) (unknown) Pulse Oximetry 98 (units unknown) (unknown) (unknown) (no date) (unknown) (unknown) Pulse Oximetry 99 08/10/22 14:28 (units unknown) (unknown) (unknown) (no date) (unknown) (unknown) Pulse Oximetry 99 98 (units unknown) (unknown) (unknown) (no date) (unknown) (unknown) Pulse Rate 103 H (units unknown) (unknown) (unknown) (no date) (unknown) (unknown) Pulse Rate 106 H 08/10/22 14:28 (units unknown) (unknown) (unknown) (no date) (unknown) (unknown) Pulse Rate 106 H 110 H (units unknown) (unknown) (unknown) (no date) (unknown) (unknown) Qualifiers: (units unknown) (unknown) (unknown) (no date) (unknown) (unknown) Questions are addressed and there is agreement with the plan and for follow-up. (units unknown) (unknown) (unknown) (no date) (unknown) (unknown) RBC (4.0-5.2) X106/uL (units unknown) (unknown) (unknown) (no date) (unknown) (unknown) RBC 4.85 (4.0-5.2) X106/uL (units unknown) (unknown) (unknown) (no date) (unknown) (unknown) RDW (11.6-14.8) % (units unknown) (unknown) (unknown) (no date) (unknown) (unknown) RDW 15.7 H (11.6-14.8) % (units unknown) (unknown) (unknown) (no date) (unknown) (unknown) RESPIRATORY: Clear t o auscultation. Breath sounds equal bilaterally. No wheezes, (units unknown) (unknown) (unknown) (no date) (unknown) (unknown) ROS Unobtainable: Al l systems reviewed + are unremarkable except as noted in HPI (units unknown) (unknown) (unknown) (no date) (unknown) (unknown) RT Consult Eval and Treat NOW (units unknown) (unknown) (unknown) (no date) (unknown) (unknown) Reassessment 18 30 patient is resting comfortably, her medications have helped (units unknown) (unknown) (unknown) (no date) (unknown) (unknown) Referrals: (units unknown) (unknown) (unknown) (no date) (unknown) (unknown) Related Data (units unknown) (unknown) (unknown) (no date) (unknown) (unknown) Respiratory Rate 22 08/10/22 14:28 (units unknown) (unknown) (unknown) (no date) (unknown) (unknown) Respiratory Rate 22 (units unknown) (unknown) (unknown) (no date) (unknown) (unknown) Respiratory Rate 24 (units unknown) (unknown) (unknown) (no date) (unknown) (unknown) Review of Systems (units unknown) (unknown) (unknown) (no date) (unknown) (unknown) Rx Instructions: (units unknown) (unknown) (unknown) (no date) (unknown) (unknown) SKIN: No rash or erythema of visible areas (units unknown) (unknown) (unknown) (no date) (unknown) (unknown) See Rx Instructions .ROUTE .COMPLEX Qty: 473 0RF (units unknown) (unknown) (unknown) (no date) (unknown) (unknown) See Rx Instructions .ROUTE .MEDSUPPLY Qty: 500 1RF (units unknown) (unknown) (unknown) (no date) (unknown) (unknown) See Rx Instructions PO .COMPLEX Qty: 60 0RF (units unknown) (unknown) (unknown) (no date) (unknown) (unknown) Signed By: (units unknown) (unknown) (unknown) (no date) (unknown) (unknown) Since patient's most recent urine culture grew Staph lugdunensis opted to treat (units unknown) (unknown) (unknown) (no date) (unknown) (unknown) Smoking Status: Current every day smoker (units unknown) (unknown) (unknown) (no date) (unknown) (unknown) Social History (units unknown) (unknown) (unknown) (no date) (unknown) (unknown) Social consideration s that may affect disposition: none (units unknown) (unknown) (unknown) (no date) (unknown) (unknown) Sodium (137-145) mmol/L (units unknown) (unknown) (unknown) (no date) (unknown) (unknown) Sodium 142 (137-145) mmol/L (units unknown) (unknown) (unknown) (no date) (unknown) (unknown) Sodium Chloride (Normal Saline 0.9%) 1,000 mls @ 1,000 mls/hr IV BOLUS ONE (units unknown) (unknown) (unknown) (no date) (unknown) (unknown) Source: patient and family (units unknown) (unknown) (unknown) (no date) (unknown) (unknown) Stated complaint: pain all over body,vomiting (units unknown) (unknown) (unknown) (no date) (unknown) (unknown) Status post appendectomy (units unknown) (unknown) (unknown) (no date) (unknown) (unknown) Stop: 08/10/22 15:39 (units unknown) (unknown) (unknown) (no date) (unknown) (unknown) Stop: 08/10/22 16:39 (units unknown) (unknown) (unknown) (no date) (unknown) (unknown) Stop: 08/10/22 16:47 (units unknown) (unknown) (unknown) (no date) (unknown) (unknown) Stop: 08/10/22 16:48 (units unknown) (unknown) (unknown) (no date) (unknown) (unknown) Stop: 08/10/22 17:05 (units unknown) (unknown) (unknown) (no date) (unknown) (unknown) Stop: 08/10/22 17:19 (units unknown) (unknown) (unknown) (no date) (unknown) (unknown) Stop: 08/10/22 17:26 (units unknown) (unknown) (unknown) (no date) (unknown) (unknown) Stop: 08/10/22 17:34 (units unknown) (unknown) (unknown) (no date) (unknown) (unknown) Stop: 08/10/22 17:36 (units unknown) (unknown) (unknown) (no date) (unknown) (unknown) Stop: 08/10/22 17:45 (units unknown) (unknown) (unknown) (no date) (unknown) (unknown) Substance Use Type: marijuana (units unknown) (unknown) (unknown) (no date) (unknown) (unknown) Surgical History (units unknown) (unknown) (unknown) (no date) (unknown) (unknown) TAKE 10 MG (10ML) BY MOUTH EVERY 6 HOURS NEEDED FOR NAUSEA AND VOMITING (units unknown) (unknown) (unknown) (no date) (unknown) (unknown) TAKE 10 MG (10ML) BY MOUTH EVERY 6 HOURS NEEDED FOR NAUSEA AND VOMITING. (units unknown) (unknown) (unknown) (no date) (unknown) (unknown) Temperature 97.9 F 08/10/22 14:28 (units unknown) (unknown) (unknown) (no date) (unknown) (unknown) Temperature 97.9 F (units unknown) (unknown) (unknown) (no date) (unknown) (unknown) Temperature (units unknown) (unknown) (unknown) (no date) (unknown) (unknown) Thiamine HCl 100 mg/ Sodium (Chloride) 101 mls @ 404 mls/hr IV NOW ONE (units unknown) (unknown) (unknown) (no date) (unknown) (unknown) This is a 27-year-ol d female with history of type 1 diabetes, cyclic vomiting (units unknown) (unknown) (unknown) (no date) (unknown) (unknown) Time Seen by Provider: 08/10/22 16:38 (units unknown) (unknown) (unknown) (no date) (unknown) (unknown) Total Bilirubin (0.2-1.3) mg/dL (units unknown) (unknown) (unknown) (no date) (unknown) (unknown) Total Bilirubin 0.7 (0.2-1.3) mg/dL (units unknown) (unknown) (unknown) (no date) (unknown) (unknown) Total Protein (6.3-8.2) g/dL (units unknown) (unknown) (unknown) (no date) (unknown) (unknown) Total Protein 8.9 H (6.3-8.2) g/dL (units unknown) (unknown) (unknown) (no date) (unknown) (unknown) Trimethoprim/Sulfame t hoxazole (Trimeth/Sulfa 160/800 (Ds) Tablet) 1 tab PO NOW (units unknown) (unknown) (unknown) (no date) (unknown) (unknown) U-100 Insulin aspart) (units unknown) (unknown) (unknown) (no date) (unknown) (unknown) UNWRAP AND INSERT 1 SUPPOSITORY RECTALLY EVERY 4 TO 6 HOURS NEEDED FOR (units unknown) (unknown) (unknown) (no date) (unknown) (unknown) Ur Renal Epithelial Cell (0-1/HPF) (units unknown) (unknown) (unknown) (no date) (unknown) (unknown) Ur Renal Epithelial Cell 1-5/hpf H (0-1/HPF) (units unknown) (unknown) (unknown) (no date) (unknown) (unknown) Ur Squamous Epith Cells (0-5/HPF) (units unknown) (unknown) (unknown) (no date) (unknown) (unknown) Ur Squamous Epith Cells 0-1 /hpf (0-5/HPF) (units unknown) (unknown) (unknown) (no date) (unknown) (unknown) Urinary tract infection type: acute cystitis Hematuria presence: without (units unknown) (unknown) (unknown) (no date) (unknown) (unknown) Urinary tract infection (units unknown) (unknown) (unknown) (no date) (unknown) (unknown) Urine Bacteria (None) (units unknown) (unknown) (unknown) (no date) (unknown) (unknown) Urine Bacteria Many (>30) H (None) (units unknown) (unknown) (unknown) (no date) (unknown) (unknown) Urine Culture Stat (units unknown) (unknown) (unknown) (no date) (unknown) (unknown) Urine Dip (units unknown) (unknown) (unknown) (no date) (unknown) (unknown) Urine Microscopic Stat (units unknown) (unknown) (unknown) (no date) (unknown) (unknown) Urine Mucus (Negative) (units unknown) (unknown) (unknown) (no date) (unknown) (unknown) Urine Mucus 1+ H (Negative) (units unknown) (unknown) (unknown) (no date) (unknown) (unknown) Urine RBC (0-5/HPF) (units unknown) (unknown) (unknown) (no date) (unknown) (unknown) Urine RBC None seen (0-5/HPF) (units unknown) (unknown) (unknown) (no date) (unknown) (unknown) Urine Specific [place] 1.030 (units unknown) (unknown) (unknown) (no date) (unknown) (unknown) Urine WBC (0-5/HPF) (units unknown) (unknown) (unknown) (no date) (unknown) (unknown) Urine WBC 5-10/hpf H (0-5/HPF) (units unknown) (unknown) (unknown) (no date) (unknown) (unknown) VBG Base Excess (0-4 ) mmol/L (units unknown) (unknown) (unknown) (no date) (unknown) (unknown) VBG Base Excess -3.0 L (0-4) mmol/L (units unknown) (unknown) (unknown) (no date) (unknown) (unknown) VBG HCO3 (24-28) mmol/L (units unknown) (unknown) (unknown) (no date) (unknown) (unknown) VBG HCO3 22 L (24-28 ) mmol/L (units unknown) (unknown) (unknown) (no date) (unknown) (unknown) VBG O2 Saturation (70-75) % (units unknown) (unknown) (unknown) (no date) (unknown) (unknown) VBG O2 Saturation 88 H (70-75) % (units unknown) (unknown) (unknown) (no date) (unknown) (unknown) VBG Total CO2 (24-29 ) mmol/L (units unknown) (unknown) (unknown) (no date) (unknown) (unknown) VBG Total CO2 23 L (24-29) mmol/L (units unknown) (unknown) (unknown) (no date) (unknown) (unknown) VBG pCO2 (45-50) mmHg (units unknown) (unknown) (unknown) (no date) (unknown) (unknown) VBG pCO2 36.2 L (45-50) mmHg (units unknown) (unknown) (unknown) (no date) (unknown) (unknown) VBG pH (7.33-7.43) (units unknown) (unknown) (unknown) (no date) (unknown) (unknown) VBG pH 7.38 (7.33-7.43) (units unknown) (unknown) (unknown) (no date) (unknown) (unknown) VBG pO2 (35-45) mmHg (units unknown) (unknown) (unknown) (no date) (unknown) (unknown) VBG pO2 56 H (35-45) mmHg (units unknown) (unknown) (unknown) (no date) (unknown) (unknown) Venous Blood Gas Stat (units unknown) (unknown) (unknown) (no date) (unknown) (unknown) Vital Signs - 8 hr (units unknown) (unknown) (unknown) (no date) (unknown) (unknown) Vital Signs (units unknown) (unknown) (unknown) (no date) (unknown) (unknown) Vital signs: (units unknown) (unknown) (unknown) (no date) (unknown) (unknown) Vomiting type: unspecified Qualified Code(s): R11.2 - Nausea with vomiting, (units unknown) (unknown) (unknown) (no date) (unknown) (unknown) WBC (4.5-11.0) X103/uL (units unknown) (unknown) (unknown) (no date) (unknown) (unknown) WBC 20.0 H (4.5-11.0 ) X103/uL (units unknown) (unknown) (unknown) (no date) (unknown) (unknown) WITH MIGRAINE. (units unknown) (unknown) (unknown) (no date) (unknown) (unknown) [ ] New medication written as a paper prescription (units unknown) (unknown) (unknown) (no date) (unknown) (unknown) [ ] No new medications given (units unknown) (unknown) (unknown) (no date) (unknown) (unknown) [Embedded Image Not Available] (units unknown) (unknown) (unknown) (no date) (unknown) (unknown) [x ] New medication prescriptions sent to your pharmacy: [ ] (units unknown) (unknown) (unknown) (no date) (unknown) (unknown) alcohol intake frequency: holidays/special occasions only (units unknown) (unknown) (unknown) (no date) (unknown) (unknown) alcohol intake: never (units unknown) (unknown) (unknown) (no date) (unknown) (unknown) ambulatory with steady gait (units unknown) (unknown) (unknown) (no date) (unknown) (unknown) and below (units unknown) (unknown) (unknown) (no date) (unknown) (unknown) at least for an update. Let them know you were seen in the Emergency Department (units unknown) (unknown) (unknown) (no date) (unknown) (unknown) bilateral CVA tenderness to palpation no suprapubic tenderness, patient (units unknown) (unknown) (unknown) (no date) (unknown) (unknown) comfortably. Repeat BMP and CBC were requested (units unknown) (unknown) (unknown) (no date) (unknown) (unknown) culture from 11/14/2021 grew Staph lugdunensis which showed full susceptibility, (units unknown) (unknown) (unknown) (no date) (unknown) (unknown) denies fever chills, vision changes, diarrhea, upper respiratory infection (units unknown) (unknown) (unknown) (no date) (unknown) (unknown) emergency department today for intractable vomiting with nausea who presents (units unknown) (unknown) (unknown) (no date) (unknown) (unknown) emergency department today with intractable nausea vomiting since 04:00. She (units unknown) (unknown) (unknown) (no date) (unknown) (unknown) endorses bilateral low back pain, and history of UTIs. States that she feels a (units unknown) (unknown) (unknown) (no date) (unknown) (unknown) endorses vaginal discharge but states it is normal and not with odor. (units unknown) (unknown) (unknown) (no date) (unknown) (unknown) establish care with one of the [facility] primary care providers. (units unknown) (unknown) (unknown) (no date) (unknown) (unknown) evaluation, she ende d up having an elevated lactate, her nausea vomiting has (units unknown) (unknown) (unknown) (no date) (unknown) (unknown) for the above problem. We will electronically transmit a record of today's note (units unknown) (unknown) (unknown) (no date) (unknown) (unknown) hematuria Qualified Code(s): N30.00 - Acute cystitis without hematuria (units unknown) (unknown) (unknown) (no date) (unknown) (unknown) hemoconcentration compared with prior lab work, there is a left shift however (units unknown) (unknown) (unknown) (no date) (unknown) (unknown) her feel better. She was given 2 L of normal saline, thiamine, Reglan, (units unknown) (unknown) (unknown) (no date) (unknown) (unknown) household members: spouse (units unknown) (unknown) (unknown) (no date) (unknown) (unknown) icterus. No injectio n or drainage. (units unknown) (unknown) (unknown) (no date) (unknown) (unknown) if your PCP or specialist is in our system. (units unknown) (unknown) (unknown) (no date) (unknown) (unknown) improved, ask her to leave a urine sample, she is currently in the bathroom, (units unknown) (unknown) (unknown) (no date) (unknown) (unknown) infection. You are quite dehydrated today but you are not in DKA, I am sorry (units unknown) (unknown) (unknown) (no date) (unknown) (unknown) insulin aspart U-100 100 unit/mL 1 sliding scale dose SUBCUT 10/04/21 (units unknown) (unknown) (unknown) (no date) (unknown) (unknown) insulin aspart U-100 [Novolog U-100 Insulin aspart] 100 unit/mL solution (units unknown) (unknown) (unknown) (no date) (unknown) (unknown) insulin syringes (disposable) 1 mL #500 ea 08/04/20 (units unknown) (unknown) (unknown) (no date) (unknown) (unknown) insulin, she took he r insulin 4 units via her insulin pump for a blood sugar of (units unknown) (unknown) (unknown) (no date) (unknown) (unknown) interactive (units unknown) (unknown) (unknown) (no date) (unknown) (unknown) ketorolac [From Toradol] Allergy Verified 08/10/22 14:43 (units unknown) (unknown) (unknown) (no date) (unknown) (unknown) liquids down, fever greater than 101F, chills, or other concerning symptom. (units unknown) (unknown) (unknown) (no date) (unknown) (unknown) lot of pain all over her body, states that her pain history is complicated. She (units unknown) (unknown) (unknown) (no date) (unknown) (unknown) metoclopramide HCl 5 mg/5 mL oral See Rx Instructions .Route 01/28/22 (units unknown) (unknown) (unknown) (no date) (unknown) (unknown) metoclopramide HCl 5 mg/5 mL solution (units unknown) (unknown) (unknown) (no date) (unknown) (unknown) mg-trimethoprim 160 mg tablet (units unknown) (unknown) (unknown) (no date) (unknown) (unknown) microscopy his significant for many bacteria without contaminant, RBCs. (units unknown) (unknown) (unknown) (no date) (unknown) (unknown) normal potassium level, bilateral CVA tenderness concerning for pyelonephritis (units unknown) (unknown) (unknown) (no date) (unknown) (unknown) not keep her medication down, or if you develop fever and chills. (units unknown) (unknown) (unknown) (no date) (unknown) (unknown) obvious distress, tearful, anxious, shaking (units unknown) (unknown) (unknown) (no date) (unknown) (unknown) pantoprazole 40 mg tablet,delayed 40 mg PO BID #30 tabs 02/07/22 (units unknown) (unknown) (unknown) (no date) (unknown) (unknown) pantoprazole 40 mg tablet,delayed release (DR/EC) (units unknown) (unknown) (unknown) (no date) (unknown) (unknown) patient is dehydrated, VBG pH of 7.38 with a pCO2 of 36.2, PO2 of 56, bicarb of (units unknown) (unknown) (unknown) (no date) (unknown) (unknown) patient with ceftriaxone and Bactrim after her nausea and vomiting improve. (units unknown) (unknown) (unknown) (no date) (unknown) (unknown) procalcitonin, blood cultures are pending (units unknown) (unknown) (unknown) (no date) (unknown) (unknown) promethazine 12.5 mg tablet 12.5 mg PO BID PRN sedation #14 08/10/22 (units unknown) (unknown) (unknown) (no date) (unknown) (unknown) promethazine 12.5 mg tablet (units unknown) (unknown) (unknown) (no date) (unknown) (unknown) promethazine 25 mg rectal 25 mg PA Q4-6H PRN Nausea And 01/27/22 02/07/22 (units unknown) (unknown) (unknown) (no date) (unknown) (unknown) promethazine [Promethegan] 25 mg suppository (units unknown) (unknown) (unknown) (no date) (unknown) (unknown) rales, or rhonchi.? (units unknown) (unknown) (unknown) (no date) (unknown) (unknown) related to urinary tract infection. We will follow-up on UA, added on (units unknown) (unknown) (unknown) (no date) (unknown) (unknown) release (units unknown) (unknown) (unknown) (no date) (unknown) (unknown) rizatriptan 10 mg tablet (Maxalt) See Rx Instructions PO .COMPLEX 01/29/22 (units unknown) (unknown) (unknown) (no date) (unknown) (unknown) rizatriptan [Maxalt] 10 mg tablet (units unknown) (unknown) (unknown) (no date) (unknown) (unknown) she is also had grou p B strep UTI from 10/06/2021, UA from 06/27/2021 grew (units unknown) (unknown) (unknown) (no date) (unknown) (unknown) solution .COMPLEX #473 mL (units unknown) (unknown) (unknown) (no date) (unknown) (unknown) staph epidermis whic h had full susceptibility as well (units unknown) (unknown) (unknown) (no date) (unknown) (unknown) subcutaneous solutio n (Novolog USEASDIRECTD #10 mL (units unknown) (unknown) (unknown) (no date) (unknown) (unknown) sulfamethoxazole 800 1 tab PO BID 10 days #20 tabs 08/10/22 (units unknown) (unknown) (unknown) (no date) (unknown) (unknown) sulfamethoxazole-tri m ethoprim [Bactrim DS] 800-160 mg tablet (units unknown) (unknown) (unknown) (no date) (unknown) (unknown) suppository (Promethegan) Vomiting (units unknown) (unknown) (unknown) (no date) (unknown) (unknown) symptoms or other ne w problem. Her PCP is Dr. Trevino. (units unknown) (unknown) (unknown) (no date) (unknown) (unknown) syndrome, gastroparesis, DKA, appendectomy, pancreatitis who presents to the (units unknown) (unknown) (unknown) (no date) (unknown) (unknown) tabs (units unknown) (unknown) (unknown) (no date) (unknown) (unknown) take 1 tab at onset of headache; if no relief may repeat 1 tab after at least (units unknown) (unknown) (unknown) (no date) (unknown) (unknown) that you did not fee l well. I have prescribed for you some more Phenergan, and (units unknown) (unknown) (unknown) (no date) (unknown) (unknown) to: UTI, pyelonephritis, nephrolithiasis (units unknown) (unknown) (unknown) (no date) (unknown) (unknown) tobacco type: vaping (units unknown) (unknown) (unknown) (no date) (unknown) (unknown) unspecified (units unknown) (unknown) (unknown) (no date) (unknown) (unknown) well as prior record s if available. Pertinent records include: Prior urine (units unknown) (unknown) (unknown) (no date) (unknown) (unknown) will treat her lacti c acidosis with a secondary L of normal saline, she has a (units unknown) (unknown) (unknown) (no date) (unknown) (unknown) you start feeling better soon, please return for worsening condition if you can (units unknown) (unknown) Result panel [id number] (unknown) (no date) (unknown) (unknown) (no value) (units unknown) (unknown) (unknown) (no date) (unknown) (unknown) #60 tabs (units unknown) (unknown) (unknown) (no date) (unknown) (unknown) #: [id number] (units unknown) (unknown) (unknown) (no date) (unknown) (unknown) <Electronically signed by Demetrius Krause D.O.> (units unknown) (unknown) (unknown) (no date) (unknown) (unknown) <Karol Ramos, [facility] - Last Filed: 08/10/22 18:55> (units unknown) (unknown) (unknown) (no date) (unknown) (unknown) <Demetrius Krause DO - Last Filed: 08/10/22 18:59> (units unknown) (unknown) (unknown) (no date) (unknown) (unknown) (Bactrim DS) (units unknown) (unknown) (unknown) (no date) (unknown) (unknown) (DME) insulin syringes (disposable) 1 mL syringe (units unknown) (unknown) (unknown) (no date) (unknown) (unknown) *If you do not have a primary care provider please contact [phone] to (units unknown) (unknown) (unknown) (no date) (unknown) (unknown) *Please call and schedule follow up with your primary care provider in 2-3 days, (units unknown) (unknown) (unknown) (no date) (unknown) (unknown) *Please continue to take your regular medications as directed. (units unknown) (unknown) (unknown) (no date) (unknown) (unknown) *Return to the Emergency Department for worsening symptoms, inability to keep (units unknown) (unknown) (unknown) (no date) (unknown) (unknown) *What to do: (units unknown) (unknown) (unknown) (no date) (unknown) (unknown) *You have been diagnosed with urinary tract infection with concern for kidney (units unknown) (unknown) (unknown) (no date) (unknown) (unknown) 08/10/22 08/10/22 08/10/22 Range/Units (units unknown) (unknown) (unknown) (no date) (unknown) (unknown) 08/10/22 08/10/22 Range/Units (units unknown) (unknown) (unknown) (no date) (unknown) (unknown) 08/10/22 14:40 (units unknown) (unknown) (unknown) (no date) (unknown) (unknown) 08/10/22 14:50 (units unknown) (unknown) (unknown) (no date) (unknown) (unknown) 08/10/22 15:40 (units unknown) (unknown) (unknown) (no date) (unknown) (unknown) 08/10/22 15:45 (units unknown) (unknown) (unknown) (no date) (unknown) (unknown) 08/10/22 17:06 (units unknown) (unknown) (unknown) (no date) (unknown) (unknown) 08/10/22 17:45 (units unknown) (unknown) (unknown) (no date) (unknown) (unknown) 08/10/22 1859 (units unknown) (unknown) (unknown) (no date) (unknown) (unknown) 08/10/22 18:46 (units unknown) (unknown) (unknown) (no date) (unknown) (unknown) 08/10/22 (units unknown) (unknown) (unknown) (no date) (unknown) (unknown) 1 sliding scale dose SUBCUT USEASDIRECTD Qty: 10 3RF (units unknown) (unknown) (unknown) (no date) (unknown) (unknown) 1 tab PO BID 10 Days Qty: 20 0RF (units unknown) (unknown) (unknown) (no date) (unknown) (unknown) 12.5 mg PO BID PRN (Reason: sedation) Qty: 14 0RF (units unknown) (unknown) (unknown) (no date) (unknown) (unknown) 14:28 08/10/22 (units unknown) (unknown) (unknown) (no date) (unknown) (unknown) 14:50 14:50 14:50 (units unknown) (unknown) (unknown) (no date) (unknown) (unknown) 15:45 17:06 (units unknown) (unknown) (unknown) (no date) (unknown) (unknown) 16:04 08/10/22 (units unknown) (unknown) (unknown) (no date) (unknown) (unknown) 16:14 (units unknown) (unknown) (unknown) (no date) (unknown) (unknown) 2 hrs; max = 3 tabs/24 hr PO (units unknown) (unknown) (unknown) (no date) (unknown) (unknown) 22, total CO2 of 23, O2 sat of 88 and base excess of -3 on room air, urine (units unknown) (unknown) (unknown) (no date) (unknown) (unknown) 25 mg PA Q4-6H PRN (Reason: Nausea And Vomiting) (units unknown) (unknown) (unknown) (no date) (unknown) (unknown) 332 on her personal CGM. Patient received 1 L normal saline prior to my (units unknown) (unknown) (unknown) (no date) (unknown) (unknown) 40 mg PO BID Qty: 30 0RF (units unknown) (unknown) (unknown) (no date) (unknown) (unknown) ALT (<35) IU/L (units unknown) (unknown) (unknown) (no date) (unknown) (unknown) ALT 19 (<35) IU/L (units unknown) (unknown) (unknown) (no date) (unknown) (unknown) APTT (26-36) SECONDS (units unknown) (unknown) (unknown) (no date) (unknown) (unknown) APTT 29 (26-36) SECONDS (units unknown) (unknown) (unknown) (no date) (unknown) (unknown) AST (14-36) IU/L (units unknown) (unknown) (unknown) (no date) (unknown) (unknown) AST 27 (14-36) IU/L (units unknown) (unknown) (unknown) (no date) (unknown) (unknown) Activity Restrictions/Addition al Instructions: (units unknown) (unknown) (unknown) (no date) (unknown) (unknown) Admin: 08/10/22 15:0 7 Dose: 1,000 mls/hr (units unknown) (unknown) (unknown) (no date) (unknown) (unknown) Admin: 08/10/22 17:1 4 Dose: 404 mls/hr (units unknown) (unknown) (unknown) (no date) (unknown) (unknown) Admin: 08/10/22 17:1 6 Dose: 1,000 mls/hr (units unknown) (unknown) (unknown) (no date) (unknown) (unknown) Admin: 08/10/22 18:0 6 Dose: 200 mls/hr (units unknown) (unknown) (unknown) (no date) (unknown) (unknown) Age/Sex: 27 / F (units unknown) (unknown) (unknown) (no date) (unknown) (unknown) Albumin (3.5-5.0) g/dL (units unknown) (unknown) (unknown) (no date) (unknown) (unknown) Albumin 5.2 H (3.5-5.0) g/dL (units unknown) (unknown) (unknown) (no date) (unknown) (unknown) Albumin/Globulin Ratio (1.0-2.8) (units unknown) (unknown) (unknown) (no date) (unknown) (unknown) Albumin/Globulin Ratio 1.4 (1.0-2.8) (units unknown) (unknown) (unknown) (no date) (unknown) (unknown) Alkaline Phosphatase (38-126) U/L (units unknown) (unknown) (unknown) (no date) (unknown) (unknown) Alkaline Phosphatase 130 H (38-126) U/L (units unknown) (unknown) (unknown) (no date) (unknown) (unknown) Allergies (units unknown) (unknown) (unknown) (no date) (unknown) (unknown) Allergy/AdvReac Type Severity Reaction Status Date / Time (units unknown) (unknown) (unknown) (no date) (unknown) (unknown) Amoxicillin/Clavulan a te Potassium (Amoxicillin/Clav 875/125 Mg) 1 tab PO NOW (units unknown) (unknown) (unknown) (no date) (unknown) (unknown) Anemia (units unknown) (unknown) (unknown) (no date) (unknown) (unknown) As directed for use with insulin injections (units unknown) (unknown) (unknown) (no date) (unknown) (unknown) BMP [Basic Metabolic Panel] Stat (units unknown) (unknown) (unknown) (no date) (unknown) (unknown) BUN (7-17) mg/dL (units unknown) (unknown) (unknown) (no date) (unknown) (unknown) BUN 21 H (7-17) mg/dL (units unknown) (unknown) (unknown) (no date) (unknown) (unknown) BUN/Creatinine Ratio (6-22) (units unknown) (unknown) (unknown) (no date) (unknown) (unknown) BUN/Creatinine Ratio 33.9 H (6-22) (units unknown) (unknown) (unknown) (no date) (unknown) (unknown) Baso # (Auto) (0-100 ) /uL (units unknown) (unknown) (unknown) (no date) (unknown) (unknown) Baso # (Auto) 0 (0-100) /uL (units unknown) (unknown) (unknown) (no date) (unknown) (unknown) Baso % (Auto) (0-2) % (units unknown) (unknown) (unknown) (no date) (unknown) (unknown) Baso % (Auto) 0.1 (0-2) % (units unknown) (unknown) (unknown) (no date) (unknown) (unknown) Bedside Urine Bilirubin - Negative (units unknown) (unknown) (unknown) (no date) (unknown) (unknown) Bedside Urine Glucos e 1000 mg/dl (units unknown) (unknown) (unknown) (no date) (unknown) (unknown) Bedside Urine Ketone +++ 80 (units unknown) (unknown) (unknown) (no date) (unknown) (unknown) Bedside Urine Leukocytes - Negative (units unknown) (unknown) (unknown) (no date) (unknown) (unknown) Bedside Urine Nitrit e + Positive (units unknown) (unknown) (unknown) (no date) (unknown) (unknown) Bedside Urine Occult Blood (units unknown) (unknown) (unknown) (no date) (unknown) (unknown) Bedside Urine Protei n + 30 (units unknown) (unknown) (unknown) (no date) (unknown) (unknown) Bedside Urine Urobilinogen - Negative (units unknown) (unknown) (unknown) (no date) (unknown) (unknown) Bedside Urine pH 6.0 (units unknown) (unknown) (unknown) (no date) (unknown) (unknown) Blood Culture Stat (units unknown) (unknown) (unknown) (no date) (unknown) (unknown) Blood Pressure 128/7 8 08/10/22 14:28 (units unknown) (unknown) (unknown) (no date) (unknown) (unknown) Blood Pressure 128/7 8 113/58 L (units unknown) (unknown) (unknown) (no date) (unknown) (unknown) Blood Pressure (units unknown) (unknown) (unknown) (no date) (unknown) (unknown) CARDIOVASCULAR: Regular rate and rhythm without murmurs, gallops, or rubs. (units unknown) (unknown) (unknown) (no date) (unknown) (unknown) CBC No Diff [Complet e Blood Count NO DIFF] Stat (units unknown) (unknown) (unknown) (no date) (unknown) (unknown) Calcium (8.4-10.2) mg/dL (units unknown) (unknown) (unknown) (no date) (unknown) (unknown) Calcium 9.4 (8.4-10.2) mg/dL (units unknown) (unknown) (unknown) (no date) (unknown) (unknown) Carbon Dioxide (22-32) mmol/L (units unknown) (unknown) (unknown) (no date) (unknown) (unknown) Carbon Dioxide 21 L (22-32) mmol/L (units unknown) (unknown) (unknown) (no date) (unknown) (unknown) Ceftriaxone Sodium 1,000 mg/ (Sodium Chloride) 100 mls @ 200 mls/hr IV NOW ONE (units unknown) (unknown) (unknown) (no date) (unknown) (unknown) Chief Complaint: Nausea vomiting, type 1 diabetes (units unknown) (unknown) (unknown) (no date) (unknown) (unknown) Chief complaint: Nausea/Vomiting/Diarr hea (units unknown) (unknown) (unknown) (no date) (unknown) (unknown) Chloride (98-107) mmol/L (units unknown) (unknown) (unknown) (no date) (unknown) (unknown) Chloride 106 (98-107 ) mmol/L (units unknown) (unknown) (unknown) (no date) (unknown) (unknown) Clinical Impression: (units unknown) (unknown) (unknown) (no date) (unknown) (unknown) Complete Blood Count AUTO DIFF Stat (units unknown) (unknown) (unknown) (no date) (unknown) (unknown) Comprehensive Metabolic Panel Stat (units unknown) (unknown) (unknown) (no date) (unknown) (unknown) Cosign (units unknown) (unknown) (unknown) (no date) (unknown) (unknown) Course of care: Patient was asking for pain medication prior to giving her (units unknown) (unknown) (unknown) (no date) (unknown) (unknown) Course (units unknown) (unknown) (unknown) (no date) (unknown) (unknown) Creatinine (0.52-1.04) mg/dL (units unknown) (unknown) (unknown) (no date) (unknown) (unknown) Creatinine 0.62 (0.52-1.04) mg/dL (units unknown) (unknown) (unknown) (no date) (unknown) (unknown) Cyclic vomiting syndrome (units unknown) (unknown) (unknown) (no date) (unknown) (unknown) DKA (diabetic ketoacidoses) (units unknown) (unknown) (unknown) (no date) (unknown) (unknown) : 1995 Acct:[id number] (units unknown) (unknown) (unknown) (no date) (unknown) (unknown) Date of Service: 08/10/22 (units unknown) (unknown) (unknown) (no date) (unknown) (unknown) Departure (units unknown) (unknown) (unknown) (no date) (unknown) (unknown) Diabetes mellitus, type I (units unknown) (unknown) (unknown) (no date) (unknown) (unknown) Diazepam (Diazepam 1 0 Mg/2 Ml Syringe) 2 mg IV NOW ONE (units unknown) (unknown) (unknown) (no date) (unknown) (unknown) Discharge Plan (units unknown) (unknown) (unknown) (no date) (unknown) (unknown) Discontinued Medications (units unknown) (unknown) (unknown) (no date) (unknown) (unknown) Documented By: NR (units unknown) (unknown) (unknown) (no date) (unknown) (unknown) Documented By: RL (units unknown) (unknown) (unknown) (no date) (unknown) (unknown) Dose Instruction: (units unknown) (unknown) (unknown) (no date) (unknown) (unknown) Dr Krause Co-Sign Statement: I was available for consultation during this (units unknown) (unknown) (unknown) (no date) (unknown) (unknown) ED Attending Cosignature Attestation: (units unknown) (unknown) (unknown) (no date) (unknown) (unknown) ED Orders (units unknown) (unknown) (unknown) (no date) (unknown) (unknown) ENT: Nose without bleeding, purulent drainage. Airway patent. (units unknown) (unknown) (unknown) (no date) (unknown) (unknown) ER Physician: KimberlywKarol (units unknown) (unknown) (unknown) (no date) (unknown) (unknown) EXTREMITIES: Normal mobility and range of motion, without any weakness, (units unknown) (unknown) (unknown) (no date) (unknown) (unknown) EYES: Pupils equal round and reactive. Extraocular motions intact. No scleral (units unknown) (unknown) (unknown) (no date) (unknown) (unknown) Emergency Report (units unknown) (unknown) (unknown) (no date) (unknown) (unknown) Eos # (Auto) (0-450) /uL (units unknown) (unknown) (unknown) (no date) (unknown) (unknown) Eos # (Auto) 0 (0-450) /uL (units unknown) (unknown) (unknown) (no date) (unknown) (unknown) Eos % (Auto) (2-4) % (units unknown) (unknown) (unknown) (no date) (unknown) (unknown) Eos % (Auto) 0.0 L (2-4) % (units unknown) (unknown) (unknown) (no date) (unknown) (unknown) Esterase (units unknown) (unknown) (unknown) (no date) (unknown) (unknown) Estimated GFR > 60 (>60) mL/min (units unknown) (unknown) (unknown) (no date) (unknown) (unknown) Estimated GFR (>60) mL/min (units unknown) (unknown) (unknown) (no date) (unknown) (unknown) Exam Narrative: (units unknown) (unknown) (unknown) (no date) (unknown) (unknown) Exam (units unknown) (unknown) (unknown) (no date) (unknown) (unknown) Family History (units unknown) (unknown) (unknown) (no date) (unknown) (unknown) Father Healthy adult (units unknown) (unknown) (unknown) (no date) (unknown) (unknown) FiO2 21 (units unknown) (unknown) (unknown) (no date) (unknown) (unknown) FiO2 (units unknown) (unknown) (unknown) (no date) (unknown) (unknown) GASTROINTESTINAL: Abdomen soft, generalized tenderness, nondistended, no masses, (units unknown) (unknown) (unknown) (no date) (unknown) (unknown) GENERAL: [26] year old patient appears stated age. Well-developed patient, in (units unknown) (unknown) (unknown) (no date) (unknown) (unknown) Gastroparesis (units unknown) (unknown) (unknown) (no date) (unknown) (unknown) General (units unknown) (unknown) (unknown) (no date) (unknown) (unknown) Globulin (1.7-4.1) g/dL (units unknown) (unknown) (unknown) (no date) (unknown) (unknown) Globulin 3.7 (1.7-4.1) g/dL (units unknown) (unknown) (unknown) (no date) (unknown) (unknown) Glucose (70-100) mg/dL (units unknown) (unknown) (unknown) (no date) (unknown) (unknown) Glucose 221 H (70-100) mg/dL (units unknown) (unknown) (unknown) (no date) (unknown) (unknown) Glucose POC 350 (units unknown) (unknown) (unknown) (no date) (unknown) (unknown) HEAD: Atraumatic. Symmetrical face expressions (units unknown) (unknown) (unknown) (no date) (unknown) (unknown) HPI - Nausea/Vomiting/Diarr hea (units unknown) (unknown) (unknown) (no date) (unknown) (unknown) HPI Narrative: (units unknown) (unknown) (unknown) (no date) (unknown) (unknown) Hct (36-46) % (units unknown) (unknown) (unknown) (no date) (unknown) (unknown) Hct 37.5 (36-46) % (units unknown) (unknown) (unknown) (no date) (unknown) (unknown) Hgb (12.0-16.0) g/dL (units unknown) (unknown) (unknown) (no date) (unknown) (unknown) Hgb 12.4 (12.0-16.0) g/dL (units unknown) (unknown) (unknown) (no date) (unknown) (unknown) History of Present Illness (units unknown) (unknown) (unknown) (no date) (unknown) (unknown) Home Medications (units unknown) (unknown) (unknown) (no date) (unknown) (unknown) Delonte Trevino MD [Primary Care Provider] (units unknown) (unknown) (unknown) (no date) (unknown) (unknown) Hyaline Casts (None) (units unknown) (unknown) (unknown) (no date) (unknown) (unknown) Hyaline Casts 1-5/lp f (None) (units unknown) (unknown) (unknown) (no date) (unknown) (unknown) Hydromorphone HCl (Hydromorphone 0.5 Mg Inj) 0.5 mg IV NOW ONE (units unknown) (unknown) (unknown) (no date) (unknown) (unknown) I have independently reviewed the patient's vital signs and nursing notes as (units unknown) (unknown) (unknown) (no date) (unknown) (unknown) I hope that you can use medications to help keep your antibiotics down. I hope (units unknown) (unknown) (unknown) (no date) (unknown) (unknown) INR (0.9-1.3) (units unknown) (unknown) (unknown) (no date) (unknown) (unknown) INR 1.3 (0.9-1.3) (units unknown) (unknown) (unknown) (no date) (unknown) (unknown) Independent historian: Patient and her sister Celsa (units unknown) (unknown) (unknown) (no date) (unknown) (unknown) Initial Vital Signs (units unknown) (unknown) (unknown) (no date) (unknown) (unknown) Initial Vital Signs: (units unknown) (unknown) (unknown) (no date) (unknown) (unknown) Instructions: DI for Dehydration -- Adult, DI for Urinary Tract Infection (UTI) (units unknown) (unknown) (unknown) (no date) (unknown) (unknown) Insulin dependent diabetes mellitus (units unknown) (unknown) (unknown) (no date) (unknown) (unknown) [address] [id number] (units unknown) (unknown) (unknown) (no date) (unknown) (unknown) Ketones (<0.27) mmol/L (units unknown) (unknown) (unknown) (no date) (unknown) (unknown) Ketones (Beta-Hydroxybutyrate ) Stat (units unknown) (unknown) (unknown) (no date) (unknown) (unknown) Ketones 1.46 H (<0.27) mmol/L (units unknown) (unknown) (unknown) (no date) (unknown) (unknown) Lab Data (units unknown) (unknown) (unknown) (no date) (unknown) (unknown) Lab Results (units unknown) (unknown) (unknown) (no date) (unknown) (unknown) Labs: (units unknown) (unknown) (unknown) (no date) (unknown) (unknown) Lactate (0.7-2.1) mmol/L (units unknown) (unknown) (unknown) (no date) (unknown) (unknown) Lactate (Lactic Acid ) Stat (units unknown) (unknown) (unknown) (no date) (unknown) (unknown) Lactate 2.8 H (0.7-2.1) mmol/L (units unknown) (unknown) (unknown) (no date) (unknown) (unknown) Last Admin: 08/10/22 15:09 Dose: 4 mg (units unknown) (unknown) (unknown) (no date) (unknown) (unknown) Last Admin: 08/10/22 17:10 Dose: 0.5 mg (units unknown) (unknown) (unknown) (no date) (unknown) (unknown) Last Admin: 08/10/22 17:14 Dose: 10 mg (units unknown) (unknown) (unknown) (no date) (unknown) (unknown) Last Admin: 08/10/22 18:05 Dose: 2 mg (units unknown) (unknown) (unknown) (no date) (unknown) (unknown) Last Admin: 08/10/22 18:06 Dose: 40 mg (units unknown) (unknown) (unknown) (no date) (unknown) (unknown) Last Admin: 08/10/22 18:09 Dose: Not Given (units unknown) (unknown) (unknown) (no date) (unknown) (unknown) Last Infusion: 08/10/22 17:24 Dose: 0 mls/hr (units unknown) (unknown) (unknown) (no date) (unknown) (unknown) Last Infusion: 08/10/22 18:08 Dose: 404 mls/hr (units unknown) (unknown) (unknown) (no date) (unknown) (unknown) Last Infusion: 08/10/22 18:47 Dose: 0 mls/hr (units unknown) (unknown) (unknown) (no date) (unknown) (unknown) Last Infusion: 08/10/22 18:48 Dose: 0 mls/hr (units unknown) (unknown) (unknown) (no date) (unknown) (unknown) Lipase (23-300) U/L (units unknown) (unknown) (unknown) (no date) (unknown) (unknown) Lipase 16 L (23-300) U/L (units unknown) (unknown) (unknown) (no date) (unknown) (unknown) Lipase Stat (units unknown) (unknown) (unknown) (no date) (unknown) (unknown) Lymph # (Auto) (7949-1640) /uL (units unknown) (unknown) (unknown) (no date) (unknown) (unknown) Lymph # (Auto) 1000 L (4817-3061) /uL (units unknown) (unknown) (unknown) (no date) (unknown) (unknown) Lymph % (Auto) (25-40) % (units unknown) (unknown) (unknown) (no date) (unknown) (unknown) Lymph % (Auto) 5.1 L (25-40) % (units unknown) (unknown) (unknown) (no date) (unknown) (unknown) MCH (26-34) PG (units unknown) (unknown) (unknown) (no date) (unknown) (unknown) MCH 25.6 L (26-34) PG (units unknown) (unknown) (unknown) (no date) (unknown) (unknown) MCHC (30-36) % (units unknown) (unknown) (unknown) (no date) (unknown) (unknown) MCHC 33.1 (30-36) % (units unknown) (unknown) (unknown) (no date) (unknown) (unknown) MCV (80-100) fL (units unknown) (unknown) (unknown) (no date) (unknown) (unknown) MCV 77.3 L (80-100) fL (units unknown) (unknown) (unknown) (no date) (unknown) (unknown) MDM - Nausea/Vomiting/Diarr hea (units unknown) (unknown) (unknown) (no date) (unknown) (unknown) MDM Narrative (units unknown) (unknown) (unknown) (no date) (unknown) (unknown) Medical History (units unknown) (unknown) (unknown) (no date) (unknown) (unknown) Medical decision making narrative: (units unknown) (unknown) (unknown) (no date) (unknown) (unknown) Medication Instructions Recorded Confirmed (units unknown) (unknown) (unknown) (no date) (unknown) (unknown) Medication Instructions Recorded (units unknown) (unknown) (unknown) (no date) (unknown) (unknown) Metoclopramide HCl (Metoclopramide 10 Mg/2 Ml Inj) 10 mg IV NOW ONE (units unknown) (unknown) (unknown) (no date) (unknown) (unknown) Migraine headache with aura (units unknown) (unknown) (unknown) (no date) (unknown) (unknown) Mode of arrival: Family Vehicle (units unknown) (unknown) (unknown) (no date) (unknown) (unknown) [place] # (Auto) (0-900 ) /uL (units unknown) (unknown) (unknown) (no date) (unknown) (unknown) [place] # (Auto) 400 (0-900) /uL (units unknown) (unknown) (unknown) (no date) (unknown) (unknown) [place] % (Auto) (3-14) % (units unknown) (unknown) (unknown) (no date) (unknown) (unknown) [place] % (Auto) 1.8 L (3-14) % (units unknown) (unknown) (unknown) (no date) (unknown) (unknown) Mother Hypertension (units unknown) (unknown) (unknown) (no date) (unknown) (unknown) Multiple etiologies for patient's symptoms considered including, but not limited (units unknown) (unknown) (unknown) (no date) (unknown) (unknown) My interpretation of imaging: (units unknown) (unknown) (unknown) (no date) (unknown) (unknown) My interpretation of lab studies: CBC is elevated at 20 with mild (units unknown) (unknown) (unknown) (no date) (unknown) (unknown) Myopia (units unknown) (unknown) (unknown) (no date) (unknown) (unknown) NAUSEA OR VOMITING (units unknown) (unknown) (unknown) (no date) (unknown) (unknown) NECK: Trachea midline. Non tender (units unknown) (unknown) (unknown) (no date) (unknown) (unknown) NEURO: AOx3, speech is clear, patient is ambulatory and appropriately (units unknown) (unknown) (unknown) (no date) (unknown) (unknown) Narrative (units unknown) (unknown) (unknown) (no date) (unknown) (unknown) Nausea and vomiting (units unknown) (unknown) (unknown) (no date) (unknown) (unknown) Neut # (Auto) (1964-6507) /uL (units unknown) (unknown) (unknown) (no date) (unknown) (unknown) Neut # (Auto) 58556 H (2918-3636) /uL (units unknown) (unknown) (unknown) (no date) (unknown) (unknown) Neut % (Auto) (50-75 ) % (units unknown) (unknown) (unknown) (no date) (unknown) (unknown) Neut % (Auto) 93.0 H (50-75) % (units unknown) (unknown) (unknown) (no date) (unknown) (unknown) New (units unknown) (unknown) (unknown) (no date) (unknown) (unknown) No Action (units unknown) (unknown) (unknown) (no date) (unknown) (unknown) ONE (units unknown) (unknown) (unknown) (no date) (unknown) (unknown) Ondansetron HCl (Ondansetron 4 Mg Odt) 4 mg SL NOW PRN (units unknown) (unknown) (unknown) (no date) (unknown) (unknown) Ondansetron HCl (Ondansetron 4 Mg/2 Ml Inj) 4 mg IV NOW PRN (units unknown) (unknown) (unknown) (no date) (unknown) (unknown) Ordered: (units unknown) (unknown) (unknown) (no date) (unknown) (unknown) Orders (units unknown) (unknown) (unknown) (no date) (unknown) (unknown) Oxygen Delivery Method Room Air 08/10/22 14:28 (units unknown) (unknown) (unknown) (no date) (unknown) (unknown) Oxygen Delivery Method Room Air (units unknown) (unknown) (unknown) (no date) (unknown) (unknown) Oxygen Delivery Method (units unknown) (unknown) (unknown) (no date) (unknown) (unknown) PRN Reason: Nausea And Vomiting (units unknown) (unknown) (unknown) (no date) (unknown) (unknown) PT (10.1-12.7) SECONDS (units unknown) (unknown) (unknown) (no date) (unknown) (unknown) PT 14.5 H (10.1-12.7 ) SECONDS (units unknown) (unknown) (unknown) (no date) (unknown) (unknown) PTT Partial Thromboplastin Sonny Stat (units unknown) (unknown) (unknown) (no date) (unknown) (unknown) Pancreatitis (units unknown) (unknown) (unknown) (no date) (unknown) (unknown) Pantoprazole Sodium (Pantoprazole 40 Mg Vial) 40 mg IV NOW ONE (units unknown) (unknown) (unknown) (no date) (unknown) (unknown) Patient Comments: (units unknown) (unknown) (unknown) (no date) (unknown) (unknown) Patient History (units unknown) (unknown) (unknown) (no date) (unknown) (unknown) Patient is appropriate for outpatient management. (units unknown) (unknown) (unknown) (no date) (unknown) (unknown) Patient: Kaur Horton MR (units unknown) (unknown) (unknown) (no date) (unknown) (unknown) Plt Count (150-400) X103/uL (units unknown) (unknown) (unknown) (no date) (unknown) (unknown) Plt Count 327 (150-400) X103/uL (units unknown) (unknown) (unknown) (no date) (unknown) (unknown) Point of Care Testing (units unknown) (unknown) (unknown) (no date) (unknown) (unknown) Potassium (3.4-5.1) mmol/L (units unknown) (unknown) (unknown) (no date) (unknown) (unknown) Potassium 4.1 (3.4-5.1) mmol/L (units unknown) (unknown) (unknown) (no date) (unknown) (unknown) Prescriptions: (units unknown) (unknown) (unknown) (no date) (unknown) (unknown) Previous Rx's (units unknown) (unknown) (unknown) (no date) (unknown) (unknown) Procalcitonin (<0.5) ng/mL (units unknown) (unknown) (unknown) (no date) (unknown) (unknown) Procalcitonin 0.34 (<0.5) ng/mL (units unknown) (unknown) (unknown) (no date) (unknown) (unknown) Procalcitonin Cancelled (<0.5) ng/mL (units unknown) (unknown) (unknown) (no date) (unknown) (unknown) Procalcitonin Stat (units unknown) (unknown) (unknown) (no date) (unknown) (unknown) Prothrombin Time INR Stat (units unknown) (unknown) (unknown) (no date) (unknown) (unknown) Protonix, ceftriaxone, Bactrim, Dilaudid, and Valium. She was resting (units unknown) (unknown) (unknown) (no date) (unknown) (unknown) Pulse Oximetry 98 (units unknown) (unknown) (unknown) (no date) (unknown) (unknown) Pulse Oximetry 99 08/10/22 14:28 (units unknown) (unknown) (unknown) (no date) (unknown) (unknown) Pulse Oximetry 99 98 (units unknown) (unknown) (unknown) (no date) (unknown) (unknown) Pulse Rate 103 H (units unknown) (unknown) (unknown) (no date) (unknown) (unknown) Pulse Rate 106 H 08/10/22 14:28 (units unknown) (unknown) (unknown) (no date) (unknown) (unknown) Pulse Rate 106 H 110 H (units unknown) (unknown) (unknown) (no date) (unknown) (unknown) Qualifiers: (units unknown) (unknown) (unknown) (no date) (unknown) (unknown) Questions are addressed and there is agreement with the plan and for follow-up. (units unknown) (unknown) (unknown) (no date) (unknown) (unknown) RBC (4.0-5.2) X106/uL (units unknown) (unknown) (unknown) (no date) (unknown) (unknown) RBC 4.85 (4.0-5.2) X106/uL (units unknown) (unknown) (unknown) (no date) (unknown) (unknown) RDW (11.6-14.8) % (units unknown) (unknown) (unknown) (no date) (unknown) (unknown) RDW 15.7 H (11.6-14.8) % (units unknown) (unknown) (unknown) (no date) (unknown) (unknown) RESPIRATORY: Clear t o auscultation. Breath sounds equal bilaterally. No wheezes, (units unknown) (unknown) (unknown) (no date) (unknown) (unknown) ROS Unobtainable: Al l systems reviewed + are unremarkable except as noted in HPI (units unknown) (unknown) (unknown) (no date) (unknown) (unknown) RT Consult Eval and Treat NOW (units unknown) (unknown) (unknown) (no date) (unknown) (unknown) Reassessment 18 30 patient is resting comfortably, her medications have helped (units unknown) (unknown) (unknown) (no date) (unknown) (unknown) Referrals: (units unknown) (unknown) (unknown) (no date) (unknown) (unknown) Related Data (units unknown) (unknown) (unknown) (no date) (unknown) (unknown) Respiratory Rate 22 08/10/22 14:28 (units unknown) (unknown) (unknown) (no date) (unknown) (unknown) Respiratory Rate 22 (units unknown) (unknown) (unknown) (no date) (unknown) (unknown) Respiratory Rate 24 (units unknown) (unknown) (unknown) (no date) (unknown) (unknown) Review of Systems (units unknown) (unknown) (unknown) (no date) (unknown) (unknown) Rx Instructions: (units unknown) (unknown) (unknown) (no date) (unknown) (unknown) SKIN: No rash or erythema of visible areas (units unknown) (unknown) (unknown) (no date) (unknown) (unknown) See Rx Instructions .ROUTE .COMPLEX Qty: 473 0RF (units unknown) (unknown) (unknown) (no date) (unknown) (unknown) See Rx Instructions .ROUTE .MEDSUPPLY Qty: 500 1RF (units unknown) (unknown) (unknown) (no date) (unknown) (unknown) See Rx Instructions PO .COMPLEX Qty: 60 0RF (units unknown) (unknown) (unknown) (no date) (unknown) (unknown) Signed By: (units unknown) (unknown) (unknown) (no date) (unknown) (unknown) Since patient's most recent urine culture grew Staph lugdunensis opted to treat (units unknown) (unknown) (unknown) (no date) (unknown) (unknown) Smoking Status: Current every day smoker (units unknown) (unknown) (unknown) (no date) (unknown) (unknown) Social History (units unknown) (unknown) (unknown) (no date) (unknown) (unknown) Social consideration s that may affect disposition: none (units unknown) (unknown) (unknown) (no date) (unknown) (unknown) Sodium (137-145) mmol/L (units unknown) (unknown) (unknown) (no date) (unknown) (unknown) Sodium 142 (137-145) mmol/L (units unknown) (unknown) (unknown) (no date) (unknown) (unknown) Sodium Chloride (Normal Saline 0.9%) 1,000 mls @ 1,000 mls/hr IV BOLUS ONE (units unknown) (unknown) (unknown) (no date) (unknown) (unknown) Source: patient and family (units unknown) (unknown) (unknown) (no date) (unknown) (unknown) Stated complaint: pain all over body,vomiting (units unknown) (unknown) (unknown) (no date) (unknown) (unknown) Status post appendectomy (units unknown) (unknown) (unknown) (no date) (unknown) (unknown) Stop: 08/10/22 15:39 (units unknown) (unknown) (unknown) (no date) (unknown) (unknown) Stop: 08/10/22 16:39 (units unknown) (unknown) (unknown) (no date) (unknown) (unknown) Stop: 08/10/22 16:47 (units unknown) (unknown) (unknown) (no date) (unknown) (unknown) Stop: 08/10/22 16:48 (units unknown) (unknown) (unknown) (no date) (unknown) (unknown) Stop: 08/10/22 17:05 (units unknown) (unknown) (unknown) (no date) (unknown) (unknown) Stop: 08/10/22 17:19 (units unknown) (unknown) (unknown) (no date) (unknown) (unknown) Stop: 08/10/22 17:26 (units unknown) (unknown) (unknown) (no date) (unknown) (unknown) Stop: 08/10/22 17:34 (units unknown) (unknown) (unknown) (no date) (unknown) (unknown) Stop: 08/10/22 17:36 (units unknown) (unknown) (unknown) (no date) (unknown) (unknown) Stop: 08/10/22 17:45 (units unknown) (unknown) (unknown) (no date) (unknown) (unknown) Substance Use Type: marijuana (units unknown) (unknown) (unknown) (no date) (unknown) (unknown) Surgical History (units unknown) (unknown) (unknown) (no date) (unknown) (unknown) TAKE 10 MG (10ML) BY MOUTH EVERY 6 HOURS NEEDED FOR NAUSEA AND VOMITING (units unknown) (unknown) (unknown) (no date) (unknown) (unknown) TAKE 10 MG (10ML) BY MOUTH EVERY 6 HOURS NEEDED FOR NAUSEA AND VOMITING. (units unknown) (unknown) (unknown) (no date) (unknown) (unknown) Temperature 97.9 F 08/10/22 14:28 (units unknown) (unknown) (unknown) (no date) (unknown) (unknown) Temperature 97.9 F (units unknown) (unknown) (unknown) (no date) (unknown) (unknown) Temperature (units unknown) (unknown) (unknown) (no date) (unknown) (unknown) Thiamine HCl 100 mg/ Sodium (Chloride) 101 mls @ 404 mls/hr IV NOW ONE (units unknown) (unknown) (unknown) (no date) (unknown) (unknown) This is a 27-year-ol d female with history of type 1 diabetes, cyclic vomiting (units unknown) (unknown) (unknown) (no date) (unknown) (unknown) Time Seen by Provider: 08/10/22 16:38 (units unknown) (unknown) (unknown) (no date) (unknown) (unknown) Total Bilirubin (0.2-1.3) mg/dL (units unknown) (unknown) (unknown) (no date) (unknown) (unknown) Total Bilirubin 0.7 (0.2-1.3) mg/dL (units unknown) (unknown) (unknown) (no date) (unknown) (unknown) Total Protein (6.3-8.2) g/dL (units unknown) (unknown) (unknown) (no date) (unknown) (unknown) Total Protein 8.9 H (6.3-8.2) g/dL (units unknown) (unknown) (unknown) (no date) (unknown) (unknown) Trimethoprim/Sulfame t hoxazole (Trimeth/Sulfa 160/800 (Ds) Tablet) 1 tab PO NOW (units unknown) (unknown) (unknown) (no date) (unknown) (unknown) U-100 Insulin aspart) (units unknown) (unknown) (unknown) (no date) (unknown) (unknown) UNWRAP AND INSERT 1 SUPPOSITORY RECTALLY EVERY 4 TO 6 HOURS NEEDED FOR (units unknown) (unknown) (unknown) (no date) (unknown) (unknown) Ur Renal Epithelial Cell (0-1/HPF) (units unknown) (unknown) (unknown) (no date) (unknown) (unknown) Ur Renal Epithelial Cell 1-5/hpf H (0-1/HPF) (units unknown) (unknown) (unknown) (no date) (unknown) (unknown) Ur Squamous Epith Cells (0-5/HPF) (units unknown) (unknown) (unknown) (no date) (unknown) (unknown) Ur Squamous Epith Cells 0-1 /hpf (0-5/HPF) (units unknown) (unknown) (unknown) (no date) (unknown) (unknown) Urinary tract infection type: acute cystitis Hematuria presence: without (units unknown) (unknown) (unknown) (no date) (unknown) (unknown) Urinary tract infection (units unknown) (unknown) (unknown) (no date) (unknown) (unknown) Urine Bacteria (None) (units unknown) (unknown) (unknown) (no date) (unknown) (unknown) Urine Bacteria Many (>30) H (None) (units unknown) (unknown) (unknown) (no date) (unknown) (unknown) Urine Culture Stat (units unknown) (unknown) (unknown) (no date) (unknown) (unknown) Urine Dip (units unknown) (unknown) (unknown) (no date) (unknown) (unknown) Urine Microscopic Stat (units unknown) (unknown) (unknown) (no date) (unknown) (unknown) Urine Mucus (Negative) (units unknown) (unknown) (unknown) (no date) (unknown) (unknown) Urine Mucus 1+ H (Negative) (units unknown) (unknown) (unknown) (no date) (unknown) (unknown) Urine RBC (0-5/HPF) (units unknown) (unknown) (unknown) (no date) (unknown) (unknown) Urine RBC None seen (0-5/HPF) (units unknown) (unknown) (unknown) (no date) (unknown) (unknown) Urine Specific [place] 1.030 (units unknown) (unknown) (unknown) (no date) (unknown) (unknown) Urine WBC (0-5/HPF) (units unknown) (unknown) (unknown) (no date) (unknown) (unknown) Urine WBC 5-10/hpf H (0-5/HPF) (units unknown) (unknown) (unknown) (no date) (unknown) (unknown) VBG Base Excess (0-4 ) mmol/L (units unknown) (unknown) (unknown) (no date) (unknown) (unknown) VBG Base Excess -3.0 L (0-4) mmol/L (units unknown) (unknown) (unknown) (no date) (unknown) (unknown) VBG HCO3 (24-28) mmol/L (units unknown) (unknown) (unknown) (no date) (unknown) (unknown) VBG HCO3 22 L (24-28 ) mmol/L (units unknown) (unknown) (unknown) (no date) (unknown) (unknown) VBG O2 Saturation (70-75) % (units unknown) (unknown) (unknown) (no date) (unknown) (unknown) VBG O2 Saturation 88 H (70-75) % (units unknown) (unknown) (unknown) (no date) (unknown) (unknown) VBG Total CO2 (24-29 ) mmol/L (units unknown) (unknown) (unknown) (no date) (unknown) (unknown) VBG Total CO2 23 L (24-29) mmol/L (units unknown) (unknown) (unknown) (no date) (unknown) (unknown) VBG pCO2 (45-50) mmHg (units unknown) (unknown) (unknown) (no date) (unknown) (unknown) VBG pCO2 36.2 L (45-50) mmHg (units unknown) (unknown) (unknown) (no date) (unknown) (unknown) VBG pH (7.33-7.43) (units unknown) (unknown) (unknown) (no date) (unknown) (unknown) VBG pH 7.38 (7.33-7.43) (units unknown) (unknown) (unknown) (no date) (unknown) (unknown) VBG pO2 (35-45) mmHg (units unknown) (unknown) (unknown) (no date) (unknown) (unknown) VBG pO2 56 H (35-45) mmHg (units unknown) (unknown) (unknown) (no date) (unknown) (unknown) Venous Blood Gas Stat (units unknown) (unknown) (unknown) (no date) (unknown) (unknown) Vital Signs - 8 hr (units unknown) (unknown) (unknown) (no date) (unknown) (unknown) Vital Signs (units unknown) (unknown) (unknown) (no date) (unknown) (unknown) Vital signs: (units unknown) (unknown) (unknown) (no date) (unknown) (unknown) Vomiting type: unspecified Qualified Code(s): R11.2 - Nausea with vomiting, (units unknown) (unknown) (unknown) (no date) (unknown) (unknown) WBC (4.5-11.0) X103/uL (units unknown) (unknown) (unknown) (no date) (unknown) (unknown) WBC 20.0 H (4.5-11.0 ) X103/uL (units unknown) (unknown) (unknown) (no date) (unknown) (unknown) WITH MIGRAINE. (units unknown) (unknown) (unknown) (no date) (unknown) (unknown) [ ] New medication written as a paper prescription (units unknown) (unknown) (unknown) (no date) (unknown) (unknown) [ ] No new medications given (units unknown) (unknown) (unknown) (no date) (unknown) (unknown) [Embedded Image Not Available] (units unknown) (unknown) (unknown) (no date) (unknown) (unknown) [x ] New medication prescriptions sent to your pharmacy: [ ] (units unknown) (unknown) (unknown) (no date) (unknown) (unknown) administrative purposes only. I did not have direct contact with this patient (units unknown) (unknown) (unknown) (no date) (unknown) (unknown) alcohol intake frequency: holidays/special occasions only (units unknown) (unknown) (unknown) (no date) (unknown) (unknown) alcohol intake: never (units unknown) (unknown) (unknown) (no date) (unknown) (unknown) ambulatory with steady gait (units unknown) (unknown) (unknown) (no date) (unknown) (unknown) and below (units unknown) (unknown) (unknown) (no date) (unknown) (unknown) at least for an update. Let them know you were seen in the Emergency Department (units unknown) (unknown) (unknown) (no date) (unknown) (unknown) bilateral CVA tenderness to palpation no suprapubic tenderness, patient (units unknown) (unknown) (unknown) (no date) (unknown) (unknown) comfortably. Repeat BMP and CBC were requested (units unknown) (unknown) (unknown) (no date) (unknown) (unknown) culture from 11/14/2021 grew Staph lugdunensis which showed full susceptibility, (units unknown) (unknown) (unknown) (no date) (unknown) (unknown) denies fever chills, vision changes, diarrhea, upper respiratory infection (units unknown) (unknown) (unknown) (no date) (unknown) (unknown) during this visit. They were seen independently by the [facility]. (units unknown) (unknown) (unknown) (no date) (unknown) (unknown) emergency department today for intractable vomiting with nausea who presents (units unknown) (unknown) (unknown) (no date) (unknown) (unknown) emergency department today with intractable nausea vomiting since 04:00. She (units unknown) (unknown) (unknown) (no date) (unknown) (unknown) endorses bilateral low back pain, and history of UTIs. States that she feels a (units unknown) (unknown) (unknown) (no date) (unknown) (unknown) endorses vaginal discharge but states it is normal and not with odor. (units unknown) (unknown) (unknown) (no date) (unknown) (unknown) establish care with one of the [facility] primary care providers. (units unknown) (unknown) (unknown) (no date) (unknown) (unknown) evaluation, she ende d up having an elevated lactate, her nausea vomiting has (units unknown) (unknown) (unknown) (no date) (unknown) (unknown) for the above problem. We will electronically transmit a record of today's note (units unknown) (unknown) (unknown) (no date) (unknown) (unknown) hematuria Qualified Code(s): N30.00 - Acute cystitis without hematuria (units unknown) (unknown) (unknown) (no date) (unknown) (unknown) hemoconcentration compared with prior lab work, there is a left shift however (units unknown) (unknown) (unknown) (no date) (unknown) (unknown) her feel better. She was given 2 L of normal saline, thiamine, Reglan, (units unknown) (unknown) (unknown) (no date) (unknown) (unknown) household members: spouse (units unknown) (unknown) (unknown) (no date) (unknown) (unknown) icterus. No injectio n or drainage. (units unknown) (unknown) (unknown) (no date) (unknown) (unknown) if your PCP or specialist is in our system. (units unknown) (unknown) (unknown) (no date) (unknown) (unknown) improved, ask her to leave a urine sample, she is currently in the bathroom, (units unknown) (unknown) (unknown) (no date) (unknown) (unknown) infection. You are quite dehydrated today but you are not in DKA, I am sorry (units unknown) (unknown) (unknown) (no date) (unknown) (unknown) insulin aspart U-100 100 unit/mL 1 sliding scale dose SUBCUT 10/04/21 (units unknown) (unknown) (unknown) (no date) (unknown) (unknown) insulin aspart U-100 [Novolog U-100 Insulin aspart] 100 unit/mL solution (units unknown) (unknown) (unknown) (no date) (unknown) (unknown) insulin syringes (disposable) 1 mL #500 ea 08/04/20 (units unknown) (unknown) (unknown) (no date) (unknown) (unknown) insulin, she took he r insulin 4 units via her insulin pump for a blood sugar of (units unknown) (unknown) (unknown) (no date) (unknown) (unknown) interactive (units unknown) (unknown) (unknown) (no date) (unknown) (unknown) ketorolac [From Toradol] Allergy Verified 08/10/22 14:43 (units unknown) (unknown) (unknown) (no date) (unknown) (unknown) liquids down, fever greater than 101F, chills, or other concerning symptom. (units unknown) (unknown) (unknown) (no date) (unknown) (unknown) lot of pain all over her body, states that her pain history is complicated. She (units unknown) (unknown) (unknown) (no date) (unknown) (unknown) metoclopramide HCl 5 mg/5 mL oral See Rx Instructions .Route 01/28/22 (units unknown) (unknown) (unknown) (no date) (unknown) (unknown) metoclopramide HCl 5 mg/5 mL solution (units unknown) (unknown) (unknown) (no date) (unknown) (unknown) mg-trimethoprim 160 mg tablet (units unknown) (unknown) (unknown) (no date) (unknown) (unknown) microscopy his significant for many bacteria without contaminant, RBCs. (units unknown) (unknown) (unknown) (no date) (unknown) (unknown) normal potassium level, bilateral CVA tenderness concerning for pyelonephritis (units unknown) (unknown) (unknown) (no date) (unknown) (unknown) not keep her medication down, or if you develop fever and chills. (units unknown) (unknown) (unknown) (no date) (unknown) (unknown) obvious distress, tearful, anxious, shaking (units unknown) (unknown) (unknown) (no date) (unknown) (unknown) pantoprazole 40 mg tablet,delayed 40 mg PO BID #30 tabs 02/07/22 (units unknown) (unknown) (unknown) (no date) (unknown) (unknown) pantoprazole 40 mg tablet,delayed release (DR/EC) (units unknown) (unknown) (unknown) (no date) (unknown) (unknown) patient is dehydrated, VBG pH of 7.38 with a pCO2 of 36.2, PO2 of 56, bicarb of (units unknown) (unknown) (unknown) (no date) (unknown) (unknown) patient with ceftriaxone and Bactrim after her nausea and vomiting improve. (units unknown) (unknown) (unknown) (no date) (unknown) (unknown) patient's emergency department visit. This chart is signed by myself for (units unknown) (unknown) (unknown) (no date) (unknown) (unknown) procalcitonin, blood cultures are pending (units unknown) (unknown) (unknown) (no date) (unknown) (unknown) promethazine 12.5 mg tablet 12.5 mg PO BID PRN sedation #14 08/10/22 (units unknown) (unknown) (unknown) (no date) (unknown) (unknown) promethazine 12.5 mg tablet (units unknown) (unknown) (unknown) (no date) (unknown) (unknown) promethazine 25 mg rectal 25 mg PA Q4-6H PRN Nausea And 01/27/22 02/07/22 (units unknown) (unknown) (unknown) (no date) (unknown) (unknown) promethazine [Promethegan] 25 mg suppository (units unknown) (unknown) (unknown) (no date) (unknown) (unknown) rales, or rhonchi.? (units unknown) (unknown) (unknown) (no date) (unknown) (unknown) related to urinary tract infection. We will follow-up on UA, added on (units unknown) (unknown) (unknown) (no date) (unknown) (unknown) release (units unknown) (unknown) (unknown) (no date) (unknown) (unknown) rizatriptan 10 mg tablet (Maxalt) See Rx Instructions PO .COMPLEX 01/29/22 (units unknown) (unknown) (unknown) (no date) (unknown) (unknown) rizatriptan [Maxalt] 10 mg tablet (units unknown) (unknown) (unknown) (no date) (unknown) (unknown) she is also had grou p B strep UTI from 10/06/2021, UA from 06/27/2021 grew (units unknown) (unknown) (unknown) (no date) (unknown) (unknown) solution .COMPLEX #473 mL (units unknown) (unknown) (unknown) (no date) (unknown) (unknown) staph epidermis whic h had full susceptibility as well (units unknown) (unknown) (unknown) (no date) (unknown) (unknown) subcutaneous solutio n (Novolog USEASDIRECTD #10 mL (units unknown) (unknown) (unknown) (no date) (unknown) (unknown) sulfamethoxazole 800 1 tab PO BID 10 days #20 tabs 08/10/22 (units unknown) (unknown) (unknown) (no date) (unknown) (unknown) sulfamethoxazole-tri m ethoprim [Bactrim DS] 800-160 mg tablet (units unknown) (unknown) (unknown) (no date) (unknown) (unknown) suppository (Promethegan) Vomiting (units unknown) (unknown) (unknown) (no date) (unknown) (unknown) symptoms or other ne w problem. Her PCP is Dr. Trevino. (units unknown) (unknown) (unknown) (no date) (unknown) (unknown) syndrome, gastroparesis, DKA, appendectomy, pancreatitis who presents to the (units unknown) (unknown) (unknown) (no date) (unknown) (unknown) tabs (units unknown) (unknown) (unknown) (no date) (unknown) (unknown) take 1 tab at onset of headache; if no relief may repeat 1 tab after at least (units unknown) (unknown) (unknown) (no date) (unknown) (unknown) that you did not fee l well. I have prescribed for you some more Phenergan, and (units unknown) (unknown) (unknown) (no date) (unknown) (unknown) to: UTI, pyelonephritis, nephrolithiasis (units unknown) (unknown) (unknown) (no date) (unknown) (unknown) tobacco type: vaping (units unknown) (unknown) (unknown) (no date) (unknown) (unknown) unspecified (units unknown) (unknown) (unknown) (no date) (unknown) (unknown) well as prior record s if available. Pertinent records include: Prior urine (units unknown) (unknown) (unknown) (no date) (unknown) (unknown) will treat her lacti c acidosis with a secondary L of normal saline, she has a (units unknown) (unknown) (unknown) (no date) (unknown) (unknown) you start feeling better soon, please return for worsening condition if you can (units unknown) (unknown) Result panel [id number] (unknown) (no date) (unknown) (unknown) 15.0 x10 3/ul (unknown) (unknown) (no date) (unknown) (unknown) 15.4 % (unknown) (unknown) (no date) (unknown) (unknown) 235 x10 3/ul (unknown) (unknown) (no date) (unknown) (unknown) 25.7 pg (unknown) (unknown) (no date) (unknown) (unknown) 28.9 % (unknown) (unknown) (no date) (unknown) (unknown) 3.75 x10 6/ul (unknown) (unknown) (no date) (unknown) (unknown) 33.4 % (unknown) (unknown) (no date) (unknown) (unknown) 77.0 fl (unknown) (unknown) (no date) (unknown) (unknown) 9.6 g/dl (unknown) Result panel 1588 (unknown) (no date) (unknown) (unknown) (no value) (units unknown) (unknown) (unknown) (no date) (unknown) (unknown) #60 tabs (units unknown) (unknown) (unknown) (no date) (unknown) (unknown) #: [id number] (units unknown) (unknown) (unknown) (no date) (unknown) (unknown) <Electronically signed by Demetrius Krause D.O.> (units unknown) (unknown) (unknown) (no date) (unknown) (unknown) <NARAYAN Lan - Last Filed: 08/10/22 19:07> (units unknown) (unknown) (unknown) (no date) (unknown) (unknown) <Demetrius Krause DO - Last Filed: 08/10/22 18:59> (units unknown) (unknown) (unknown) (no date) (unknown) (unknown) (Bactrim DS) (units unknown) (unknown) (unknown) (no date) (unknown) (unknown) (DME) insulin syringes (disposable) 1 mL syringe (units unknown) (unknown) (unknown) (no date) (unknown) (unknown) *If you do not have a primary care provider please contact [phone] to (units unknown) (unknown) (unknown) (no date) (unknown) (unknown) *Please call and schedule follow up with your primary care provider in 2-3 days, (units unknown) (unknown) (unknown) (no date) (unknown) (unknown) *Please continue to take your regular medications as directed. (units unknown) (unknown) (unknown) (no date) (unknown) (unknown) *Return to the Emergency Department for worsening symptoms, inability to keep (units unknown) (unknown) (unknown) (no date) (unknown) (unknown) *What to do: (units unknown) (unknown) (unknown) (no date) (unknown) (unknown) *You have been diagnosed with urinary tract infection with concern for kidney (units unknown) (unknown) (unknown) (no date) (unknown) (unknown) 08/10/22 08/10/22 08/10/22 Range/Units (units unknown) (unknown) (unknown) (no date) (unknown) (unknown) 08/10/22 08/10/22 Range/Units (units unknown) (unknown) (unknown) (no date) (unknown) (unknown) 08/10/22 14:40 (units unknown) (unknown) (unknown) (no date) (unknown) (unknown) 08/10/22 14:50 (units unknown) (unknown) (unknown) (no date) (unknown) (unknown) 08/10/22 15:40 (units unknown) (unknown) (unknown) (no date) (unknown) (unknown) 08/10/22 15:45 (units unknown) (unknown) (unknown) (no date) (unknown) (unknown) 08/10/22 17:06 (units unknown) (unknown) (unknown) (no date) (unknown) (unknown) 08/10/22 17:45 (units unknown) (unknown) (unknown) (no date) (unknown) (unknown) 08/10/22 1859 (units unknown) (unknown) (unknown) (no date) (unknown) (unknown) 08/10/22 18:46 (units unknown) (unknown) (unknown) (no date) (unknown) (unknown) 08/10/22 (units unknown) (unknown) (unknown) (no date) (unknown) (unknown) 1 sliding scale dose SUBCUT USEASDIRECTD Qty: 10 3RF (units unknown) (unknown) (unknown) (no date) (unknown) (unknown) 1 tab PO BID 10 Days Qty: 20 0RF (units unknown) (unknown) (unknown) (no date) (unknown) (unknown) 12.5 mg PO BID PRN (Reason: sedation) Qty: 14 0RF (units unknown) (unknown) (unknown) (no date) (unknown) (unknown) 14:28 08/10/22 (units unknown) (unknown) (unknown) (no date) (unknown) (unknown) 14:50 14:50 14:50 (units unknown) (unknown) (unknown) (no date) (unknown) (unknown) 15:45 17:06 (units unknown) (unknown) (unknown) (no date) (unknown) (unknown) 16:04 08/10/22 (units unknown) (unknown) (unknown) (no date) (unknown) (unknown) 16:14 (units unknown) (unknown) (unknown) (no date) (unknown) (unknown) 2 hrs; max = 3 tabs/24 hr PO (units unknown) (unknown) (unknown) (no date) (unknown) (unknown) 22, total CO2 of 23, O2 sat of 88 and base excess of -3 on room air, urine (units unknown) (unknown) (unknown) (no date) (unknown) (unknown) 25 mg PA Q4-6H PRN (Reason: Nausea And Vomiting) (units unknown) (unknown) (unknown) (no date) (unknown) (unknown) 332 on her personal CGM. Patient received 1 L normal saline prior to my (units unknown) (unknown) (unknown) (no date) (unknown) (unknown) 40 mg PO BID Qty: 30 0RF (units unknown) (unknown) (unknown) (no date) (unknown) (unknown) ALT (<35) IU/L (units unknown) (unknown) (unknown) (no date) (unknown) (unknown) ALT 19 (<35) IU/L (units unknown) (unknown) (unknown) (no date) (unknown) (unknown) APTT (26-36) SECONDS (units unknown) (unknown) (unknown) (no date) (unknown) (unknown) APTT 29 (26-36) SECONDS (units unknown) (unknown) (unknown) (no date) (unknown) (unknown) AST (14-36) IU/L (units unknown) (unknown) (unknown) (no date) (unknown) (unknown) AST 27 (14-36) IU/L (units unknown) (unknown) (unknown) (no date) (unknown) (unknown) Activity Restrictions/Addition al Instructions: (units unknown) (unknown) (unknown) (no date) (unknown) (unknown) Admin: 08/10/22 15:0 7 Dose: 1,000 mls/hr (units unknown) (unknown) (unknown) (no date) (unknown) (unknown) Admin: 08/10/22 17:1 4 Dose: 404 mls/hr (units unknown) (unknown) (unknown) (no date) (unknown) (unknown) Admin: 08/10/22 17:1 6 Dose: 1,000 mls/hr (units unknown) (unknown) (unknown) (no date) (unknown) (unknown) Admin: 08/10/22 18:0 6 Dose: 200 mls/hr (units unknown) (unknown) (unknown) (no date) (unknown) (unknown) Age/Sex: 27 / F (units unknown) (unknown) (unknown) (no date) (unknown) (unknown) Albumin (3.5-5.0) g/dL (units unknown) (unknown) (unknown) (no date) (unknown) (unknown) Albumin 5.2 H (3.5-5.0) g/dL (units unknown) (unknown) (unknown) (no date) (unknown) (unknown) Albumin/Globulin Ratio (1.0-2.8) (units unknown) (unknown) (unknown) (no date) (unknown) (unknown) Albumin/Globulin Ratio 1.4 (1.0-2.8) (units unknown) (unknown) (unknown) (no date) (unknown) (unknown) Alkaline Phosphatase (38-126) U/L (units unknown) (unknown) (unknown) (no date) (unknown) (unknown) Alkaline Phosphatase 130 H (38-126) U/L (units unknown) (unknown) (unknown) (no date) (unknown) (unknown) Allergies (units unknown) (unknown) (unknown) (no date) (unknown) (unknown) Allergy/AdvReac Type Severity Reaction Status Date / Time (units unknown) (unknown) (unknown) (no date) (unknown) (unknown) Amoxicillin/Clavulan a te Potassium (Amoxicillin/Clav 875/125 Mg) 1 tab PO NOW (units unknown) (unknown) (unknown) (no date) (unknown) (unknown) Anemia (units unknown) (unknown) (unknown) (no date) (unknown) (unknown) As directed for use with insulin injections (units unknown) (unknown) (unknown) (no date) (unknown) (unknown) BMP [Basic Metabolic Panel] Stat (units unknown) (unknown) (unknown) (no date) (unknown) (unknown) BUN (7-17) mg/dL (units unknown) (unknown) (unknown) (no date) (unknown) (unknown) BUN 21 H (7-17) mg/dL (units unknown) (unknown) (unknown) (no date) (unknown) (unknown) BUN/Creatinine Ratio (6-22) (units unknown) (unknown) (unknown) (no date) (unknown) (unknown) BUN/Creatinine Ratio 33.9 H (6-22) (units unknown) (unknown) (unknown) (no date) (unknown) (unknown) Baso # (Auto) (0-100 ) /uL (units unknown) (unknown) (unknown) (no date) (unknown) (unknown) Baso # (Auto) 0 (0-100) /uL (units unknown) (unknown) (unknown) (no date) (unknown) (unknown) Baso % (Auto) (0-2) % (units unknown) (unknown) (unknown) (no date) (unknown) (unknown) Baso % (Auto) 0.1 (0-2) % (units unknown) (unknown) (unknown) (no date) (unknown) (unknown) Bedside Urine Bilirubin - Negative (units unknown) (unknown) (unknown) (no date) (unknown) (unknown) Bedside Urine Glucos e 1000 mg/dl (units unknown) (unknown) (unknown) (no date) (unknown) (unknown) Bedside Urine Ketone +++ 80 (units unknown) (unknown) (unknown) (no date) (unknown) (unknown) Bedside Urine Leukocytes - Negative (units unknown) (unknown) (unknown) (no date) (unknown) (unknown) Bedside Urine Nitrit e + Positive (units unknown) (unknown) (unknown) (no date) (unknown) (unknown) Bedside Urine Occult Blood (units unknown) (unknown) (unknown) (no date) (unknown) (unknown) Bedside Urine Protei n + 30 (units unknown) (unknown) (unknown) (no date) (unknown) (unknown) Bedside Urine Urobilinogen - Negative (units unknown) (unknown) (unknown) (no date) (unknown) (unknown) Bedside Urine pH 6.0 (units unknown) (unknown) (unknown) (no date) (unknown) (unknown) Blood Culture Stat (units unknown) (unknown) (unknown) (no date) (unknown) (unknown) Blood Pressure 128/7 8 08/10/22 14:28 (units unknown) (unknown) (unknown) (no date) (unknown) (unknown) Blood Pressure 128/7 8 113/58 L (units unknown) (unknown) (unknown) (no date) (unknown) (unknown) Blood Pressure (units unknown) (unknown) (unknown) (no date) (unknown) (unknown) CARDIOVASCULAR: Regular rate and rhythm without murmurs, gallops, or rubs. (units unknown) (unknown) (unknown) (no date) (unknown) (unknown) CBC No Diff [Complet e Blood Count NO DIFF] Stat (units unknown) (unknown) (unknown) (no date) (unknown) (unknown) Calcium (8.4-10.2) mg/dL (units unknown) (unknown) (unknown) (no date) (unknown) (unknown) Calcium 9.4 (8.4-10.2) mg/dL (units unknown) (unknown) (unknown) (no date) (unknown) (unknown) Carbon Dioxide (22-32) mmol/L (units unknown) (unknown) (unknown) (no date) (unknown) (unknown) Carbon Dioxide 21 L (22-32) mmol/L (units unknown) (unknown) (unknown) (no date) (unknown) (unknown) Ceftriaxone Sodium 1,000 mg/ (Sodium Chloride) 100 mls @ 200 mls/hr IV NOW ONE (units unknown) (unknown) (unknown) (no date) (unknown) (unknown) Chief Complaint: Nausea vomiting, type 1 diabetes (units unknown) (unknown) (unknown) (no date) (unknown) (unknown) Chief complaint: Nausea/Vomiting/Diarr hea (units unknown) (unknown) (unknown) (no date) (unknown) (unknown) Chloride (98-107) mmol/L (units unknown) (unknown) (unknown) (no date) (unknown) (unknown) Chloride 106 (98-107 ) mmol/L (units unknown) (unknown) (unknown) (no date) (unknown) (unknown) Clinical Impression: (units unknown) (unknown) (unknown) (no date) (unknown) (unknown) Complete Blood Count AUTO DIFF Stat (units unknown) (unknown) (unknown) (no date) (unknown) (unknown) Comprehensive Metabolic Panel Stat (units unknown) (unknown) (unknown) (no date) (unknown) (unknown) Cosign (units unknown) (unknown) (unknown) (no date) (unknown) (unknown) Course of care: Patient was asking for pain medication prior to giving her (units unknown) (unknown) (unknown) (no date) (unknown) (unknown) Course (units unknown) (unknown) (unknown) (no date) (unknown) (unknown) Creatinine (0.52-1.04) mg/dL (units unknown) (unknown) (unknown) (no date) (unknown) (unknown) Creatinine 0.62 (0.52-1.04) mg/dL (units unknown) (unknown) (unknown) (no date) (unknown) (unknown) Cyclic vomiting syndrome (units unknown) (unknown) (unknown) (no date) (unknown) (unknown) DKA (diabetic ketoacidoses) (units unknown) (unknown) (unknown) (no date) (unknown) (unknown) : 1995 Acct:[id number] (units unknown) (unknown) (unknown) (no date) (unknown) (unknown) Date of Service: 08/10/22 (units unknown) (unknown) (unknown) (no date) (unknown) (unknown) Departure (units unknown) (unknown) (unknown) (no date) (unknown) (unknown) Diabetes mellitus, type I (units unknown) (unknown) (unknown) (no date) (unknown) (unknown) Diazepam (Diazepam 1 0 Mg/2 Ml Syringe) 2 mg IV NOW ONE (units unknown) (unknown) (unknown) (no date) (unknown) (unknown) Discharge Plan (units unknown) (unknown) (unknown) (no date) (unknown) (unknown) Discontinued Medications (units unknown) (unknown) (unknown) (no date) (unknown) (unknown) Documented By: NR (units unknown) (unknown) (unknown) (no date) (unknown) (unknown) Documented By: RL (units unknown) (unknown) (unknown) (no date) (unknown) (unknown) Dose Instruction: (units unknown) (unknown) (unknown) (no date) (unknown) (unknown) Dr Krause Co-Sign Statement: I was available for consultation during this (units unknown) (unknown) (unknown) (no date) (unknown) (unknown) ED Attending Cosignature Attestation: (units unknown) (unknown) (unknown) (no date) (unknown) (unknown) ED Orders (units unknown) (unknown) (unknown) (no date) (unknown) (unknown) ENT: Nose without bleeding, purulent drainage. Airway patent. (units unknown) (unknown) (unknown) (no date) (unknown) (unknown) ER Physician: KimberlywKarol (units unknown) (unknown) (unknown) (no date) (unknown) (unknown) EXTREMITIES: Normal mobility and range of motion, without any weakness, (units unknown) (unknown) (unknown) (no date) (unknown) (unknown) EYES: Pupils equal round and reactive. Extraocular motions intact. No scleral (units unknown) (unknown) (unknown) (no date) (unknown) (unknown) Emergency Report (units unknown) (unknown) (unknown) (no date) (unknown) (unknown) Eos # (Auto) (0-450) /uL (units unknown) (unknown) (unknown) (no date) (unknown) (unknown) Eos # (Auto) 0 (0-450) /uL (units unknown) (unknown) (unknown) (no date) (unknown) (unknown) Eos % (Auto) (2-4) % (units unknown) (unknown) (unknown) (no date) (unknown) (unknown) Eos % (Auto) 0.0 L (2-4) % (units unknown) (unknown) (unknown) (no date) (unknown) (unknown) Esterase (units unknown) (unknown) (unknown) (no date) (unknown) (unknown) Estimated GFR > 60 (>60) mL/min (units unknown) (unknown) (unknown) (no date) (unknown) (unknown) Estimated GFR (>60) mL/min (units unknown) (unknown) (unknown) (no date) (unknown) (unknown) Exam Narrative: (units unknown) (unknown) (unknown) (no date) (unknown) (unknown) Exam (units unknown) (unknown) (unknown) (no date) (unknown) (unknown) Family History (units unknown) (unknown) (unknown) (no date) (unknown) (unknown) Father Healthy adult (units unknown) (unknown) (unknown) (no date) (unknown) (unknown) FiO2 21 (units unknown) (unknown) (unknown) (no date) (unknown) (unknown) FiO2 (units unknown) (unknown) (unknown) (no date) (unknown) (unknown) GASTROINTESTINAL: Abdomen soft, generalized tenderness, nondistended, no masses, (units unknown) (unknown) (unknown) (no date) (unknown) (unknown) GENERAL: [26] year old patient appears stated age. Well-developed patient, in (units unknown) (unknown) (unknown) (no date) (unknown) (unknown) Gastroparesis (units unknown) (unknown) (unknown) (no date) (unknown) (unknown) General (units unknown) (unknown) (unknown) (no date) (unknown) (unknown) Globulin (1.7-4.1) g/dL (units unknown) (unknown) (unknown) (no date) (unknown) (unknown) Globulin 3.7 (1.7-4.1) g/dL (units unknown) (unknown) (unknown) (no date) (unknown) (unknown) Glucose (70-100) mg/dL (units unknown) (unknown) (unknown) (no date) (unknown) (unknown) Glucose 221 H (70-100) mg/dL (units unknown) (unknown) (unknown) (no date) (unknown) (unknown) Glucose POC 350 (units unknown) (unknown) (unknown) (no date) (unknown) (unknown) HEAD: Atraumatic. Symmetrical face expressions (units unknown) (unknown) (unknown) (no date) (unknown) (unknown) HPI - Nausea/Vomiting/Diarr hea (units unknown) (unknown) (unknown) (no date) (unknown) (unknown) HPI Narrative: (units unknown) (unknown) (unknown) (no date) (unknown) (unknown) Hct (36-46) % (units unknown) (unknown) (unknown) (no date) (unknown) (unknown) Hct 37.5 (36-46) % (units unknown) (unknown) (unknown) (no date) (unknown) (unknown) Hgb (12.0-16.0) g/dL (units unknown) (unknown) (unknown) (no date) (unknown) (unknown) Hgb 12.4 (12.0-16.0) g/dL (units unknown) (unknown) (unknown) (no date) (unknown) (unknown) History of Present Illness (units unknown) (unknown) (unknown) (no date) (unknown) (unknown) Home Medications (units unknown) (unknown) (unknown) (no date) (unknown) (unknown) Delonte Trevino MD [Primary Care Provider] (units unknown) (unknown) (unknown) (no date) (unknown) (unknown) Hyaline Casts (None) (units unknown) (unknown) (unknown) (no date) (unknown) (unknown) Hyaline Casts 1-5/lp f (None) (units unknown) (unknown) (unknown) (no date) (unknown) (unknown) Hydromorphone HCl (Hydromorphone 0.5 Mg Inj) 0.5 mg IV NOW ONE (units unknown) (unknown) (unknown) (no date) (unknown) (unknown) I have independently reviewed the patient's vital signs and nursing notes as (units unknown) (unknown) (unknown) (no date) (unknown) (unknown) I hope that you can use medications to help keep your antibiotics down. I hope (units unknown) (unknown) (unknown) (no date) (unknown) (unknown) INR (0.9-1.3) (units unknown) (unknown) (unknown) (no date) (unknown) (unknown) INR 1.3 (0.9-1.3) (units unknown) (unknown) (unknown) (no date) (unknown) (unknown) Independent historian: Patient and her sister Celsa (units unknown) (unknown) (unknown) (no date) (unknown) (unknown) Initial Vital Signs (units unknown) (unknown) (unknown) (no date) (unknown) (unknown) Initial Vital Signs: (units unknown) (unknown) (unknown) (no date) (unknown) (unknown) Instructions: DI for Dehydration -- Adult, DI for Urinary Tract Infection (UTI) (units unknown) (unknown) (unknown) (no date) (unknown) (unknown) Insulin dependent diabetes mellitus (units unknown) (unknown) (unknown) (no date) (unknown) (unknown) [address] [address] (units unknown) (unknown) (unknown) (no date) (unknown) (unknown) Ketones (<0.27) mmol/L (units unknown) (unknown) (unknown) (no date) (unknown) (unknown) Ketones (Beta-Hydroxybutyrate ) Stat (units unknown) (unknown) (unknown) (no date) (unknown) (unknown) Ketones 1.46 H (<0.27) mmol/L (units unknown) (unknown) (unknown) (no date) (unknown) (unknown) Lab Data (units unknown) (unknown) (unknown) (no date) (unknown) (unknown) Lab Results (units unknown) (unknown) (unknown) (no date) (unknown) (unknown) Labs: (units unknown) (unknown) (unknown) (no date) (unknown) (unknown) Lactate (0.7-2.1) mmol/L (units unknown) (unknown) (unknown) (no date) (unknown) (unknown) Lactate (Lactic Acid ) Stat (units unknown) (unknown) (unknown) (no date) (unknown) (unknown) Lactate 2.8 H (0.7-2.1) mmol/L (units unknown) (unknown) (unknown) (no date) (unknown) (unknown) Last Admin: 08/10/22 15:09 Dose: 4 mg (units unknown) (unknown) (unknown) (no date) (unknown) (unknown) Last Admin: 08/10/22 17:10 Dose: 0.5 mg (units unknown) (unknown) (unknown) (no date) (unknown) (unknown) Last Admin: 08/10/22 17:14 Dose: 10 mg (units unknown) (unknown) (unknown) (no date) (unknown) (unknown) Last Admin: 08/10/22 18:05 Dose: 2 mg (units unknown) (unknown) (unknown) (no date) (unknown) (unknown) Last Admin: 08/10/22 18:06 Dose: 40 mg (units unknown) (unknown) (unknown) (no date) (unknown) (unknown) Last Admin: 08/10/22 18:09 Dose: Not Given (units unknown) (unknown) (unknown) (no date) (unknown) (unknown) Last Infusion: 08/10/22 17:24 Dose: 0 mls/hr (units unknown) (unknown) (unknown) (no date) (unknown) (unknown) Last Infusion: 08/10/22 18:08 Dose: 404 mls/hr (units unknown) (unknown) (unknown) (no date) (unknown) (unknown) Last Infusion: 08/10/22 18:47 Dose: 0 mls/hr (units unknown) (unknown) (unknown) (no date) (unknown) (unknown) Last Infusion: 08/10/22 18:48 Dose: 0 mls/hr (units unknown) (unknown) (unknown) (no date) (unknown) (unknown) Lipase (23-300) U/L (units unknown) (unknown) (unknown) (no date) (unknown) (unknown) Lipase 16 L (23-300) U/L (units unknown) (unknown) (unknown) (no date) (unknown) (unknown) Lipase Stat (units unknown) (unknown) (unknown) (no date) (unknown) (unknown) Lymph # (Auto) (5631-3471) /uL (units unknown) (unknown) (unknown) (no date) (unknown) (unknown) Lymph # (Auto) 1000 L (7123-9592) /uL (units unknown) (unknown) (unknown) (no date) (unknown) (unknown) Lymph % (Auto) (25-40) % (units unknown) (unknown) (unknown) (no date) (unknown) (unknown) Lymph % (Auto) 5.1 L (25-40) % (units unknown) (unknown) (unknown) (no date) (unknown) (unknown) MCH (26-34) PG (units unknown) (unknown) (unknown) (no date) (unknown) (unknown) MCH 25.6 L (26-34) PG (units unknown) (unknown) (unknown) (no date) (unknown) (unknown) MCHC (30-36) % (units unknown) (unknown) (unknown) (no date) (unknown) (unknown) MCHC 33.1 (30-36) % (units unknown) (unknown) (unknown) (no date) (unknown) (unknown) MCV (80-100) fL (units unknown) (unknown) (unknown) (no date) (unknown) (unknown) MCV 77.3 L (80-100) fL (units unknown) (unknown) (unknown) (no date) (unknown) (unknown) MDM - Nausea/Vomiting/Diarr hea (units unknown) (unknown) (unknown) (no date) (unknown) (unknown) MDM Narrative (units unknown) (unknown) (unknown) (no date) (unknown) (unknown) Medical History (units unknown) (unknown) (unknown) (no date) (unknown) (unknown) Medical decision making narrative: (units unknown) (unknown) (unknown) (no date) (unknown) (unknown) Medication Instructions Recorded Confirmed (units unknown) (unknown) (unknown) (no date) (unknown) (unknown) Medication Instructions Recorded (units unknown) (unknown) (unknown) (no date) (unknown) (unknown) Metoclopramide HCl (Metoclopramide 10 Mg/2 Ml Inj) 10 mg IV NOW ONE (units unknown) (unknown) (unknown) (no date) (unknown) (unknown) Migraine headache with aura (units unknown) (unknown) (unknown) (no date) (unknown) (unknown) Mode of arrival: Family Vehicle (units unknown) (unknown) (unknown) (no date) (unknown) (unknown) [place] # (Auto) (0-900 ) /uL (units unknown) (unknown) (unknown) (no date) (unknown) (unknown) [place] # (Auto) 400 (0-900) /uL (units unknown) (unknown) (unknown) (no date) (unknown) (unknown) [place] % (Auto) (3-14) % (units unknown) (unknown) (unknown) (no date) (unknown) (unknown) [place] % (Auto) 1.8 L (3-14) % (units unknown) (unknown) (unknown) (no date) (unknown) (unknown) Mother Hypertension (units unknown) (unknown) (unknown) (no date) (unknown) (unknown) Multiple etiologies for patient's symptoms considered including, but not limited (units unknown) (unknown) (unknown) (no date) (unknown) (unknown) My interpretation of imaging: (units unknown) (unknown) (unknown) (no date) (unknown) (unknown) My interpretation of lab studies: CBC is elevated at 20 with mild (units unknown) (unknown) (unknown) (no date) (unknown) (unknown) Myopia (units unknown) (unknown) (unknown) (no date) (unknown) (unknown) NAUSEA OR VOMITING (units unknown) (unknown) (unknown) (no date) (unknown) (unknown) NECK: Trachea midline. Non tender (units unknown) (unknown) (unknown) (no date) (unknown) (unknown) NEURO: AOx3, speech is clear, patient is ambulatory and appropriately (units unknown) (unknown) (unknown) (no date) (unknown) (unknown) Narrative (units unknown) (unknown) (unknown) (no date) (unknown) (unknown) Nausea and vomiting (units unknown) (unknown) (unknown) (no date) (unknown) (unknown) Neut # (Auto) (1043-7571) /uL (units unknown) (unknown) (unknown) (no date) (unknown) (unknown) Neut # (Auto) 67519 H (0957-5448) /uL (units unknown) (unknown) (unknown) (no date) (unknown) (unknown) Neut % (Auto) (50-75 ) % (units unknown) (unknown) (unknown) (no date) (unknown) (unknown) Neut % (Auto) 93.0 H (50-75) % (units unknown) (unknown) (unknown) (no date) (unknown) (unknown) New (units unknown) (unknown) (unknown) (no date) (unknown) (unknown) No Action (units unknown) (unknown) (unknown) (no date) (unknown) (unknown) ONE (units unknown) (unknown) (unknown) (no date) (unknown) (unknown) Ondansetron HCl (Ondansetron 4 Mg Odt) 4 mg SL NOW PRN (units unknown) (unknown) (unknown) (no date) (unknown) (unknown) Ondansetron HCl (Ondansetron 4 Mg/2 Ml Inj) 4 mg IV NOW PRN (units unknown) (unknown) (unknown) (no date) (unknown) (unknown) Ordered: (units unknown) (unknown) (unknown) (no date) (unknown) (unknown) Orders (units unknown) (unknown) (unknown) (no date) (unknown) (unknown) Oxygen Delivery Method Room Air 08/10/22 14:28 (units unknown) (unknown) (unknown) (no date) (unknown) (unknown) Oxygen Delivery Method Room Air (units unknown) (unknown) (unknown) (no date) (unknown) (unknown) Oxygen Delivery Method (units unknown) (unknown) (unknown) (no date) (unknown) (unknown) PRN Reason: Nausea And Vomiting (units unknown) (unknown) (unknown) (no date) (unknown) (unknown) PT (10.1-12.7) SECONDS (units unknown) (unknown) (unknown) (no date) (unknown) (unknown) PT 14.5 H (10.1-12.7 ) SECONDS (units unknown) (unknown) (unknown) (no date) (unknown) (unknown) PTT Partial Thromboplastin Sonny Stat (units unknown) (unknown) (unknown) (no date) (unknown) (unknown) Pancreatitis (units unknown) (unknown) (unknown) (no date) (unknown) (unknown) Pantoprazole Sodium (Pantoprazole 40 Mg Vial) 40 mg IV NOW ONE (units unknown) (unknown) (unknown) (no date) (unknown) (unknown) Patient Comments: (units unknown) (unknown) (unknown) (no date) (unknown) (unknown) Patient History (units unknown) (unknown) (unknown) (no date) (unknown) (unknown) Patient is appropriate for outpatient management. (units unknown) (unknown) (unknown) (no date) (unknown) (unknown) Patient: Kaur Horton MR (units unknown) (unknown) (unknown) (no date) (unknown) (unknown) Plt Count (150-400) X103/uL (units unknown) (unknown) (unknown) (no date) (unknown) (unknown) Plt Count 327 (150-400) X103/uL (units unknown) (unknown) (unknown) (no date) (unknown) (unknown) Point of Care Testing (units unknown) (unknown) (unknown) (no date) (unknown) (unknown) Potassium (3.4-5.1) mmol/L (units unknown) (unknown) (unknown) (no date) (unknown) (unknown) Potassium 4.1 (3.4-5.1) mmol/L (units unknown) (unknown) (unknown) (no date) (unknown) (unknown) Prescriptions: (units unknown) (unknown) (unknown) (no date) (unknown) (unknown) Previous Rx's (units unknown) (unknown) (unknown) (no date) (unknown) (unknown) Procalcitonin (<0.5) ng/mL (units unknown) (unknown) (unknown) (no date) (unknown) (unknown) Procalcitonin 0.34 (<0.5) ng/mL (units unknown) (unknown) (unknown) (no date) (unknown) (unknown) Procalcitonin Cancelled (<0.5) ng/mL (units unknown) (unknown) (unknown) (no date) (unknown) (unknown) Procalcitonin Stat (units unknown) (unknown) (unknown) (no date) (unknown) (unknown) Prothrombin Time INR Stat (units unknown) (unknown) (unknown) (no date) (unknown) (unknown) Protonix, ceftriaxone, Bactrim, Dilaudid, and Valium. She was resting (units unknown) (unknown) (unknown) (no date) (unknown) (unknown) Pulse Oximetry 98 (units unknown) (unknown) (unknown) (no date) (unknown) (unknown) Pulse Oximetry 99 08/10/22 14:28 (units unknown) (unknown) (unknown) (no date) (unknown) (unknown) Pulse Oximetry 99 98 (units unknown) (unknown) (unknown) (no date) (unknown) (unknown) Pulse Rate 103 H (units unknown) (unknown) (unknown) (no date) (unknown) (unknown) Pulse Rate 106 H 08/10/22 14:28 (units unknown) (unknown) (unknown) (no date) (unknown) (unknown) Pulse Rate 106 H 110 H (units unknown) (unknown) (unknown) (no date) (unknown) (unknown) Qualifiers: (units unknown) (unknown) (unknown) (no date) (unknown) (unknown) Questions are addressed and there is agreement with the plan and for follow-up. (units unknown) (unknown) (unknown) (no date) (unknown) (unknown) RBC (4.0-5.2) X106/uL (units unknown) (unknown) (unknown) (no date) (unknown) (unknown) RBC 4.85 (4.0-5.2) X106/uL (units unknown) (unknown) (unknown) (no date) (unknown) (unknown) RDW (11.6-14.8) % (units unknown) (unknown) (unknown) (no date) (unknown) (unknown) RDW 15.7 H (11.6-14.8) % (units unknown) (unknown) (unknown) (no date) (unknown) (unknown) RESPIRATORY: Clear t o auscultation. Breath sounds equal bilaterally. No wheezes, (units unknown) (unknown) (unknown) (no date) (unknown) (unknown) ROS Unobtainable: Al l systems reviewed + are unremarkable except as noted in HPI (units unknown) (unknown) (unknown) (no date) (unknown) (unknown) RT Consult Eval and Treat NOW (units unknown) (unknown) (unknown) (no date) (unknown) (unknown) Reassessment 18 30 patient is resting comfortably, her medications have helped (units unknown) (unknown) (unknown) (no date) (unknown) (unknown) Referrals: (units unknown) (unknown) (unknown) (no date) (unknown) (unknown) Related Data (units unknown) (unknown) (unknown) (no date) (unknown) (unknown) Respiratory Rate 22 08/10/22 14:28 (units unknown) (unknown) (unknown) (no date) (unknown) (unknown) Respiratory Rate 22 (units unknown) (unknown) (unknown) (no date) (unknown) (unknown) Respiratory Rate 24 (units unknown) (unknown) (unknown) (no date) (unknown) (unknown) Review of Systems (units unknown) (unknown) (unknown) (no date) (unknown) (unknown) Rx Instructions: (units unknown) (unknown) (unknown) (no date) (unknown) (unknown) SKIN: No rash or erythema of visible areas (units unknown) (unknown) (unknown) (no date) (unknown) (unknown) See Rx Instructions .ROUTE .COMPLEX Qty: 473 0RF (units unknown) (unknown) (unknown) (no date) (unknown) (unknown) See Rx Instructions .ROUTE .MEDSUPPLY Qty: 500 1RF (units unknown) (unknown) (unknown) (no date) (unknown) (unknown) See Rx Instructions PO .COMPLEX Qty: 60 0RF (units unknown) (unknown) (unknown) (no date) (unknown) (unknown) Signed By: (units unknown) (unknown) (unknown) (no date) (unknown) (unknown) Since patient's most recent urine culture grew Staph lugdunensis opted to treat (units unknown) (unknown) (unknown) (no date) (unknown) (unknown) Smoking Status: Current every day smoker (units unknown) (unknown) (unknown) (no date) (unknown) (unknown) Social History (units unknown) (unknown) (unknown) (no date) (unknown) (unknown) Social consideration s that may affect disposition: none (units unknown) (unknown) (unknown) (no date) (unknown) (unknown) Sodium (137-145) mmol/L (units unknown) (unknown) (unknown) (no date) (unknown) (unknown) Sodium 142 (137-145) mmol/L (units unknown) (unknown) (unknown) (no date) (unknown) (unknown) Sodium Chloride (Normal Saline 0.9%) 1,000 mls @ 1,000 mls/hr IV BOLUS ONE (units unknown) (unknown) (unknown) (no date) (unknown) (unknown) Source: patient and family (units unknown) (unknown) (unknown) (no date) (unknown) (unknown) Stated complaint: pain all over body,vomiting (units unknown) (unknown) (unknown) (no date) (unknown) (unknown) Status post appendectomy (units unknown) (unknown) (unknown) (no date) (unknown) (unknown) Stop: 08/10/22 15:39 (units unknown) (unknown) (unknown) (no date) (unknown) (unknown) Stop: 08/10/22 16:39 (units unknown) (unknown) (unknown) (no date) (unknown) (unknown) Stop: 08/10/22 16:47 (units unknown) (unknown) (unknown) (no date) (unknown) (unknown) Stop: 08/10/22 16:48 (units unknown) (unknown) (unknown) (no date) (unknown) (unknown) Stop: 08/10/22 17:05 (units unknown) (unknown) (unknown) (no date) (unknown) (unknown) Stop: 08/10/22 17:19 (units unknown) (unknown) (unknown) (no date) (unknown) (unknown) Stop: 08/10/22 17:26 (units unknown) (unknown) (unknown) (no date) (unknown) (unknown) Stop: 08/10/22 17:34 (units unknown) (unknown) (unknown) (no date) (unknown) (unknown) Stop: 08/10/22 17:36 (units unknown) (unknown) (unknown) (no date) (unknown) (unknown) Stop: 08/10/22 17:45 (units unknown) (unknown) (unknown) (no date) (unknown) (unknown) Substance Use Type: marijuana (units unknown) (unknown) (unknown) (no date) (unknown) (unknown) Surgical History (units unknown) (unknown) (unknown) (no date) (unknown) (unknown) TAKE 10 MG (10ML) BY MOUTH EVERY 6 HOURS NEEDED FOR NAUSEA AND VOMITING (units unknown) (unknown) (unknown) (no date) (unknown) (unknown) TAKE 10 MG (10ML) BY MOUTH EVERY 6 HOURS NEEDED FOR NAUSEA AND VOMITING. (units unknown) (unknown) (unknown) (no date) (unknown) (unknown) Temperature 97.9 F 08/10/22 14:28 (units unknown) (unknown) (unknown) (no date) (unknown) (unknown) Temperature 97.9 F (units unknown) (unknown) (unknown) (no date) (unknown) (unknown) Temperature (units unknown) (unknown) (unknown) (no date) (unknown) (unknown) Thiamine HCl 100 mg/ Sodium (Chloride) 101 mls @ 404 mls/hr IV NOW ONE (units unknown) (unknown) (unknown) (no date) (unknown) (unknown) This is a 27-year-ol d female with history of type 1 diabetes, cyclic vomiting (units unknown) (unknown) (unknown) (no date) (unknown) (unknown) Time Seen by Provider: 08/10/22 16:38 (units unknown) (unknown) (unknown) (no date) (unknown) (unknown) Total Bilirubin (0.2-1.3) mg/dL (units unknown) (unknown) (unknown) (no date) (unknown) (unknown) Total Bilirubin 0.7 (0.2-1.3) mg/dL (units unknown) (unknown) (unknown) (no date) (unknown) (unknown) Total Protein (6.3-8.2) g/dL (units unknown) (unknown) (unknown) (no date) (unknown) (unknown) Total Protein 8.9 H (6.3-8.2) g/dL (units unknown) (unknown) (unknown) (no date) (unknown) (unknown) Trimethoprim/Sulfame t hoxazole (Trimeth/Sulfa 160/800 (Ds) Tablet) 1 tab PO NOW (units unknown) (unknown) (unknown) (no date) (unknown) (unknown) U-100 Insulin aspart) (units unknown) (unknown) (unknown) (no date) (unknown) (unknown) UNWRAP AND INSERT 1 SUPPOSITORY RECTALLY EVERY 4 TO 6 HOURS NEEDED FOR (units unknown) (unknown) (unknown) (no date) (unknown) (unknown) Ur Renal Epithelial Cell (0-1/HPF) (units unknown) (unknown) (unknown) (no date) (unknown) (unknown) Ur Renal Epithelial Cell 1-5/hpf H (0-1/HPF) (units unknown) (unknown) (unknown) (no date) (unknown) (unknown) Ur Squamous Epith Cells (0-5/HPF) (units unknown) (unknown) (unknown) (no date) (unknown) (unknown) Ur Squamous Epith Cells 0-1 /hpf (0-5/HPF) (units unknown) (unknown) (unknown) (no date) (unknown) (unknown) Urinary tract infection type: acute cystitis Hematuria presence: without (units unknown) (unknown) (unknown) (no date) (unknown) (unknown) Urinary tract infection (units unknown) (unknown) (unknown) (no date) (unknown) (unknown) Urine Bacteria (None) (units unknown) (unknown) (unknown) (no date) (unknown) (unknown) Urine Bacteria Many (>30) H (None) (units unknown) (unknown) (unknown) (no date) (unknown) (unknown) Urine Culture Stat (units unknown) (unknown) (unknown) (no date) (unknown) (unknown) Urine Dip (units unknown) (unknown) (unknown) (no date) (unknown) (unknown) Urine Microscopic Stat (units unknown) (unknown) (unknown) (no date) (unknown) (unknown) Urine Mucus (Negative) (units unknown) (unknown) (unknown) (no date) (unknown) (unknown) Urine Mucus 1+ H (Negative) (units unknown) (unknown) (unknown) (no date) (unknown) (unknown) Urine RBC (0-5/HPF) (units unknown) (unknown) (unknown) (no date) (unknown) (unknown) Urine RBC None seen (0-5/HPF) (units unknown) (unknown) (unknown) (no date) (unknown) (unknown) Urine Specific [place] 1.030 (units unknown) (unknown) (unknown) (no date) (unknown) (unknown) Urine WBC (0-5/HPF) (units unknown) (unknown) (unknown) (no date) (unknown) (unknown) Urine WBC 5-10/hpf H (0-5/HPF) (units unknown) (unknown) (unknown) (no date) (unknown) (unknown) VBG Base Excess (0-4 ) mmol/L (units unknown) (unknown) (unknown) (no date) (unknown) (unknown) VBG Base Excess -3.0 L (0-4) mmol/L (units unknown) (unknown) (unknown) (no date) (unknown) (unknown) VBG HCO3 (24-28) mmol/L (units unknown) (unknown) (unknown) (no date) (unknown) (unknown) VBG HCO3 22 L (24-28 ) mmol/L (units unknown) (unknown) (unknown) (no date) (unknown) (unknown) VBG O2 Saturation (70-75) % (units unknown) (unknown) (unknown) (no date) (unknown) (unknown) VBG O2 Saturation 88 H (70-75) % (units unknown) (unknown) (unknown) (no date) (unknown) (unknown) VBG Total CO2 (24-29 ) mmol/L (units unknown) (unknown) (unknown) (no date) (unknown) (unknown) VBG Total CO2 23 L (24-29) mmol/L (units unknown) (unknown) (unknown) (no date) (unknown) (unknown) VBG pCO2 (45-50) mmHg (units unknown) (unknown) (unknown) (no date) (unknown) (unknown) VBG pCO2 36.2 L (45-50) mmHg (units unknown) (unknown) (unknown) (no date) (unknown) (unknown) VBG pH (7.33-7.43) (units unknown) (unknown) (unknown) (no date) (unknown) (unknown) VBG pH 7.38 (7.33-7.43) (units unknown) (unknown) (unknown) (no date) (unknown) (unknown) VBG pO2 (35-45) mmHg (units unknown) (unknown) (unknown) (no date) (unknown) (unknown) VBG pO2 56 H (35-45) mmHg (units unknown) (unknown) (unknown) (no date) (unknown) (unknown) Venous Blood Gas Stat (units unknown) (unknown) (unknown) (no date) (unknown) (unknown) Vital Signs - 8 hr (units unknown) (unknown) (unknown) (no date) (unknown) (unknown) Vital Signs (units unknown) (unknown) (unknown) (no date) (unknown) (unknown) Vital signs: (units unknown) (unknown) (unknown) (no date) (unknown) (unknown) Vomiting type: unspecified Qualified Code(s): R11.2 - Nausea with vomiting, (units unknown) (unknown) (unknown) (no date) (unknown) (unknown) WBC (4.5-11.0) X103/uL (units unknown) (unknown) (unknown) (no date) (unknown) (unknown) WBC 20.0 H (4.5-11.0 ) X103/uL (units unknown) (unknown) (unknown) (no date) (unknown) (unknown) WITH MIGRAINE. (units unknown) (unknown) (unknown) (no date) (unknown) (unknown) [ ] New medication written as a paper prescription (units unknown) (unknown) (unknown) (no date) (unknown) (unknown) [ ] No new medications given (units unknown) (unknown) (unknown) (no date) (unknown) (unknown) [Embedded Image Not Available] (units unknown) (unknown) (unknown) (no date) (unknown) (unknown) [x ] New medication prescriptions sent to your pharmacy: [ ] (units unknown) (unknown) (unknown) (no date) (unknown) (unknown) alcohol intake frequency: holidays/special occasions only (units unknown) (unknown) (unknown) (no date) (unknown) (unknown) alcohol intake: never (units unknown) (unknown) (unknown) (no date) (unknown) (unknown) ambulatory with steady gait (units unknown) (unknown) (unknown) (no date) (unknown) (unknown) and below (units unknown) (unknown) (unknown) (no date) (unknown) (unknown) at least for an update. Let them know you were seen in the Emergency Department (units unknown) (unknown) (unknown) (no date) (unknown) (unknown) bilateral CVA tenderness to palpation no suprapubic tenderness, patient (units unknown) (unknown) (unknown) (no date) (unknown) (unknown) comfortably. Repeat BMP and CBC are pending (units unknown) (unknown) (unknown) (no date) (unknown) (unknown) culture from 11/14/2021 grew Staph lugdunensis which showed full susceptibility, (units unknown) (unknown) (unknown) (no date) (unknown) (unknown) denies fever chills, vision changes, diarrhea, upper respiratory infection (units unknown) (unknown) (unknown) (no date) (unknown) (unknown) during this visit. They were seen independently by the [facility]. (units unknown) (unknown) (unknown) (no date) (unknown) (unknown) emergency department today for intractable vomiting with nausea who presents (units unknown) (unknown) (unknown) (no date) (unknown) (unknown) emergency department today with intractable nausea vomiting since 04:00. She (units unknown) (unknown) (unknown) (no date) (unknown) (unknown) endorses bilateral low back pain, and history of UTIs. States that she feels a (units unknown) (unknown) (unknown) (no date) (unknown) (unknown) endorses vaginal discharge but states it is normal and not with odor. (units unknown) (unknown) (unknown) (no date) (unknown) (unknown) establish care with one of the [facility] primary care providers. (units unknown) (unknown) (unknown) (no date) (unknown) (unknown) evaluation, she ende d up having an elevated lactate, her nausea vomiting has (units unknown) (unknown) (unknown) (no date) (unknown) (unknown) for the above problem. We will electronically transmit a record of today's note (units unknown) (unknown) (unknown) (no date) (unknown) (unknown) hematuria Qualified Code(s): N30.00 - Acute cystitis without hematuria (units unknown) (unknown) (unknown) (no date) (unknown) (unknown) hemoconcentration compared with prior lab work, there is a left shift however (units unknown) (unknown) (unknown) (no date) (unknown) (unknown) her feel better. She was given 2 L of normal saline, thiamine, Reglan, (units unknown) (unknown) (unknown) (no date) (unknown) (unknown) household members: spouse (units unknown) (unknown) (unknown) (no date) (unknown) (unknown) icterus. No injectio n or drainage. (units unknown) (unknown) (unknown) (no date) (unknown) (unknown) if your PCP or specialist is in our system. (units unknown) (unknown) (unknown) (no date) (unknown) (unknown) improved, ask her to leave a urine sample, she is currently in the bathroom, (units unknown) (unknown) (unknown) (no date) (unknown) (unknown) infection. You are quite dehydrated today but you are not in DKA, I am sorry (units unknown) (unknown) (unknown) (no date) (unknown) (unknown) inistrative purposes only. I did not have direct contact with this patient (units unknown) (unknown) (unknown) (no date) (unknown) (unknown) insulin aspart U-100 100 unit/mL 1 sliding scale dose SUBCUT 10/04/21 (units unknown) (unknown) (unknown) (no date) (unknown) (unknown) insulin aspart U-100 [Novolog U-100 Insulin aspart] 100 unit/mL solution (units unknown) (unknown) (unknown) (no date) (unknown) (unknown) insulin syringes (disposable) 1 mL #500 ea 08/04/20 (units unknown) (unknown) (unknown) (no date) (unknown) (unknown) insulin, she took he r insulin 4 units via her insulin pump for a blood sugar of (units unknown) (unknown) (unknown) (no date) (unknown) (unknown) interactive (units unknown) (unknown) (unknown) (no date) (unknown) (unknown) ketorolac [From Toradol] Allergy Verified 08/10/22 14:43 (units unknown) (unknown) (unknown) (no date) (unknown) (unknown) liquids down, fever greater than 101F, chills, or other concerning symptom. (units unknown) (unknown) (unknown) (no date) (unknown) (unknown) lot of pain all over her body, states that her pain history is complicated. She (units unknown) (unknown) (unknown) (no date) (unknown) (unknown) metoclopramide HCl 5 mg/5 mL oral See Rx Instructions .Route 01/28/22 (units unknown) (unknown) (unknown) (no date) (unknown) (unknown) metoclopramide HCl 5 mg/5 mL solution (units unknown) (unknown) (unknown) (no date) (unknown) (unknown) mg-trimethoprim 160 mg tablet (units unknown) (unknown) (unknown) (no date) (unknown) (unknown) microscopy his significant for many bacteria without contaminant, RBCs. (units unknown) (unknown) (unknown) (no date) (unknown) (unknown) normal potassium level, bilateral CVA tenderness concerning for pyelonephritis (units unknown) (unknown) (unknown) (no date) (unknown) (unknown) not keep her medication down, or if you develop fever and chills. (units unknown) (unknown) (unknown) (no date) (unknown) (unknown) obvious distress, tearful, anxious, shaking (units unknown) (unknown) (unknown) (no date) (unknown) (unknown) pantoprazole 40 mg tablet,delayed 40 mg PO BID #30 tabs 02/07/22 (units unknown) (unknown) (unknown) (no date) (unknown) (unknown) pantoprazole 40 mg tablet,delayed release (DR/EC) (units unknown) (unknown) (unknown) (no date) (unknown) (unknown) patient is dehydrated, VBG pH of 7.38 with a pCO2 of 36.2, PO2 of 56, bicarb of (units unknown) (unknown) (unknown) (no date) (unknown) (unknown) patient with ceftriaxone and Bactrim after her nausea and vomiting improve. (units unknown) (unknown) (unknown) (no date) (unknown) (unknown) patient's emergency department visit. This chart is signed by myself for adm (units unknown) (unknown) (unknown) (no date) (unknown) (unknown) procalcitonin, blood cultures are pending (units unknown) (unknown) (unknown) (no date) (unknown) (unknown) promethazine 12.5 mg tablet 12.5 mg PO BID PRN sedation #14 08/10/22 (units unknown) (unknown) (unknown) (no date) (unknown) (unknown) promethazine 12.5 mg tablet (units unknown) (unknown) (unknown) (no date) (unknown) (unknown) promethazine 25 mg rectal 25 mg PA Q4-6H PRN Nausea And 01/27/22 02/07/22 (units unknown) (unknown) (unknown) (no date) (unknown) (unknown) promethazine [Promethegan] 25 mg suppository (units unknown) (unknown) (unknown) (no date) (unknown) (unknown) rales, or rhonchi.? (units unknown) (unknown) (unknown) (no date) (unknown) (unknown) related to urinary tract infection. We will follow-up on UA, added on (units unknown) (unknown) (unknown) (no date) (unknown) (unknown) release (units unknown) (unknown) (unknown) (no date) (unknown) (unknown) rizatriptan 10 mg tablet (Maxalt) See Rx Instructions PO .COMPLEX 01/29/22 (units unknown) (unknown) (unknown) (no date) (unknown) (unknown) rizatriptan [Maxalt] 10 mg tablet (units unknown) (unknown) (unknown) (no date) (unknown) (unknown) she is also had grou p B strep UTI from 10/06/2021, UA from 06/27/2021 grew (units unknown) (unknown) (unknown) (no date) (unknown) (unknown) solution .COMPLEX #473 mL (units unknown) (unknown) (unknown) (no date) (unknown) (unknown) staph epidermis whic h had full susceptibility as well (units unknown) (unknown) (unknown) (no date) (unknown) (unknown) subcutaneous solutio n (Novolog USEASDIRECTD #10 mL (units unknown) (unknown) (unknown) (no date) (unknown) (unknown) sulfamethoxazole 800 1 tab PO BID 10 days #20 tabs 08/10/22 (units unknown) (unknown) (unknown) (no date) (unknown) (unknown) sulfamethoxazole-tri m ethoprim [Bactrim DS] 800-160 mg tablet (units unknown) (unknown) (unknown) (no date) (unknown) (unknown) suppository (Promethegan) Vomiting (units unknown) (unknown) (unknown) (no date) (unknown) (unknown) symptoms or other ne w problem. Her PCP is Dr. Trevino. (units unknown) (unknown) (unknown) (no date) (unknown) (unknown) syndrome, gastroparesis, DKA, appendectomy, pancreatitis who presents to the (units unknown) (unknown) (unknown) (no date) (unknown) (unknown) tabs (units unknown) (unknown) (unknown) (no date) (unknown) (unknown) take 1 tab at onset of headache; if no relief may repeat 1 tab after at least (units unknown) (unknown) (unknown) (no date) (unknown) (unknown) that you did not fee l well. I have prescribed for you some more Phenergan, and (units unknown) (unknown) (unknown) (no date) (unknown) (unknown) to: UTI, pyelonephritis, nephrolithiasis, DKA, vaginal infection. (units unknown) (unknown) (unknown) (no date) (unknown) (unknown) tobacco type: vaping (units unknown) (unknown) (unknown) (no date) (unknown) (unknown) unspecified (units unknown) (unknown) (unknown) (no date) (unknown) (unknown) well as prior record s if available. Pertinent records include: Prior urine (units unknown) (unknown) (unknown) (no date) (unknown) (unknown) will treat her lacti c acidosis with a secondary L of normal saline, she has a (units unknown) (unknown) (unknown) (no date) (unknown) (unknown) you start feeling better soon, please return for worsening condition if you can (units unknown) (unknown) Result panel [id number] (unknown) (no date) (unknown) (unknown) 0.9 mmol/l (unknown) Result panel 1590 (unknown) (no date) (unknown) (unknown) (no value) (units unknown) (unknown) (unknown) (no date) (unknown) (unknown) #60 tabs (units unknown) (unknown) (unknown) (no date) (unknown) (unknown) #: [id number] (units unknown) (unknown) (unknown) (no date) (unknown) (unknown) <Electronically signed by Demetrius Krause D.O.> (units unknown) (unknown) (unknown) (no date) (unknown) (unknown) <Karol Ramos [facility] - Last Filed: 08/10/22 19:19> (units unknown) (unknown) (unknown) (no date) (unknown) (unknown) <Demetrius Krause DO - Last Filed: 08/10/22 18:59> (units unknown) (unknown) (unknown) (no date) (unknown) (unknown) (Bactrim DS) (units unknown) (unknown) (unknown) (no date) (unknown) (unknown) (DME) insulin syringes (disposable) 1 mL syringe (units unknown) (unknown) (unknown) (no date) (unknown) (unknown) *If you do not have a primary care provider please contact [phone] to (units unknown) (unknown) (unknown) (no date) (unknown) (unknown) *Please call and schedule follow up with your primary care provider in 2-3 days, (units unknown) (unknown) (unknown) (no date) (unknown) (unknown) *Please continue to take your regular medications as directed. (units unknown) (unknown) (unknown) (no date) (unknown) (unknown) *Return to the Emergency Department for worsening symptoms, inability to keep (units unknown) (unknown) (unknown) (no date) (unknown) (unknown) *What to do: (units unknown) (unknown) (unknown) (no date) (unknown) (unknown) *You have been diagnosed with urinary tract infection with concern for kidney (units unknown) (unknown) (unknown) (no date) (unknown) (unknown) 08/10/22 08/10/22 08/10/22 Range/Units (units unknown) (unknown) (unknown) (no date) (unknown) (unknown) 08/10/22 08/10/22 Range/Units (units unknown) (unknown) (unknown) (no date) (unknown) (unknown) 08/10/22 14:40 (units unknown) (unknown) (unknown) (no date) (unknown) (unknown) 08/10/22 14:50 (units unknown) (unknown) (unknown) (no date) (unknown) (unknown) 08/10/22 15:40 (units unknown) (unknown) (unknown) (no date) (unknown) (unknown) 08/10/22 15:45 (units unknown) (unknown) (unknown) (no date) (unknown) (unknown) 08/10/22 17:06 (units unknown) (unknown) (unknown) (no date) (unknown) (unknown) 08/10/22 17:45 (units unknown) (unknown) (unknown) (no date) (unknown) (unknown) 08/10/22 1859 (units unknown) (unknown) (unknown) (no date) (unknown) (unknown) 08/10/22 18:46 (units unknown) (unknown) (unknown) (no date) (unknown) (unknown) 08/10/22 (units unknown) (unknown) (unknown) (no date) (unknown) (unknown) 1 sliding scale dose SUBCUT USEASDIRECTD Qty: 10 3RF (units unknown) (unknown) (unknown) (no date) (unknown) (unknown) 1 tab PO BID 10 Days Qty: 20 0RF (units unknown) (unknown) (unknown) (no date) (unknown) (unknown) 12.5 mg PO BID PRN (Reason: sedation) Qty: 14 0RF (units unknown) (unknown) (unknown) (no date) (unknown) (unknown) 14:28 08/10/22 (units unknown) (unknown) (unknown) (no date) (unknown) (unknown) 14:50 14:50 14:50 (units unknown) (unknown) (unknown) (no date) (unknown) (unknown) 15:45 17:06 (units unknown) (unknown) (unknown) (no date) (unknown) (unknown) 16:04 08/10/22 (units unknown) (unknown) (unknown) (no date) (unknown) (unknown) 16:14 (units unknown) (unknown) (unknown) (no date) (unknown) (unknown) 2 hrs; max = 3 tabs/24 hr PO (units unknown) (unknown) (unknown) (no date) (unknown) (unknown) 22, total CO2 of 23, O2 sat of 88 and base excess of -3 on room air, urine (units unknown) (unknown) (unknown) (no date) (unknown) (unknown) 25 mg PA Q4-6H PRN (Reason: Nausea And Vomiting) (units unknown) (unknown) (unknown) (no date) (unknown) (unknown) 332 on her personal CGM. Patient received 1 L normal saline prior to my (units unknown) (unknown) (unknown) (no date) (unknown) (unknown) 40 mg PO BID Qty: 30 0RF (units unknown) (unknown) (unknown) (no date) (unknown) (unknown) ALT (<35) IU/L (units unknown) (unknown) (unknown) (no date) (unknown) (unknown) ALT 19 (<35) IU/L (units unknown) (unknown) (unknown) (no date) (unknown) (unknown) APTT (26-36) SECONDS (units unknown) (unknown) (unknown) (no date) (unknown) (unknown) APTT 29 (26-36) SECONDS (units unknown) (unknown) (unknown) (no date) (unknown) (unknown) AST (14-36) IU/L (units unknown) (unknown) (unknown) (no date) (unknown) (unknown) AST 27 (14-36) IU/L (units unknown) (unknown) (unknown) (no date) (unknown) (unknown) Activity Restrictions/Addition al Instructions: (units unknown) (unknown) (unknown) (no date) (unknown) (unknown) Admin: 08/10/22 15:0 7 Dose: 1,000 mls/hr (units unknown) (unknown) (unknown) (no date) (unknown) (unknown) Admin: 08/10/22 17:1 4 Dose: 404 mls/hr (units unknown) (unknown) (unknown) (no date) (unknown) (unknown) Admin: 08/10/22 17:1 6 Dose: 1,000 mls/hr (units unknown) (unknown) (unknown) (no date) (unknown) (unknown) Admin: 08/10/22 18:0 6 Dose: 200 mls/hr (units unknown) (unknown) (unknown) (no date) (unknown) (unknown) Age/Sex: 27 / F (units unknown) (unknown) (unknown) (no date) (unknown) (unknown) Albumin (3.5-5.0) g/dL (units unknown) (unknown) (unknown) (no date) (unknown) (unknown) Albumin 5.2 H (3.5-5.0) g/dL (units unknown) (unknown) (unknown) (no date) (unknown) (unknown) Albumin/Globulin Ratio (1.0-2.8) (units unknown) (unknown) (unknown) (no date) (unknown) (unknown) Albumin/Globulin Ratio 1.4 (1.0-2.8) (units unknown) (unknown) (unknown) (no date) (unknown) (unknown) Alkaline Phosphatase (38-126) U/L (units unknown) (unknown) (unknown) (no date) (unknown) (unknown) Alkaline Phosphatase 130 H (38-126) U/L (units unknown) (unknown) (unknown) (no date) (unknown) (unknown) Allergies (units unknown) (unknown) (unknown) (no date) (unknown) (unknown) Allergy/AdvReac Type Severity Reaction Status Date / Time (units unknown) (unknown) (unknown) (no date) (unknown) (unknown) Amoxicillin/Clavulan a te Potassium (Amoxicillin/Clav 875/125 Mg) 1 tab PO NOW (units unknown) (unknown) (unknown) (no date) (unknown) (unknown) Anemia (units unknown) (unknown) (unknown) (no date) (unknown) (unknown) As directed for use with insulin injections (units unknown) (unknown) (unknown) (no date) (unknown) (unknown) BMP [Basic Metabolic Panel] Stat (units unknown) (unknown) (unknown) (no date) (unknown) (unknown) BUN (7-17) mg/dL (units unknown) (unknown) (unknown) (no date) (unknown) (unknown) BUN 21 H (7-17) mg/dL (units unknown) (unknown) (unknown) (no date) (unknown) (unknown) BUN/Creatinine Ratio (6-22) (units unknown) (unknown) (unknown) (no date) (unknown) (unknown) BUN/Creatinine Ratio 33.9 H (6-22) (units unknown) (unknown) (unknown) (no date) (unknown) (unknown) Baso # (Auto) (0-100 ) /uL (units unknown) (unknown) (unknown) (no date) (unknown) (unknown) Baso # (Auto) 0 (0-100) /uL (units unknown) (unknown) (unknown) (no date) (unknown) (unknown) Baso % (Auto) (0-2) % (units unknown) (unknown) (unknown) (no date) (unknown) (unknown) Baso % (Auto) 0.1 (0-2) % (units unknown) (unknown) (unknown) (no date) (unknown) (unknown) Bedside Urine Bilirubin - Negative (units unknown) (unknown) (unknown) (no date) (unknown) (unknown) Bedside Urine Glucos e 1000 mg/dl (units unknown) (unknown) (unknown) (no date) (unknown) (unknown) Bedside Urine Ketone +++ 80 (units unknown) (unknown) (unknown) (no date) (unknown) (unknown) Bedside Urine Leukocytes - Negative (units unknown) (unknown) (unknown) (no date) (unknown) (unknown) Bedside Urine Nitrit e + Positive (units unknown) (unknown) (unknown) (no date) (unknown) (unknown) Bedside Urine Occult Blood (units unknown) (unknown) (unknown) (no date) (unknown) (unknown) Bedside Urine Protei n + 30 (units unknown) (unknown) (unknown) (no date) (unknown) (unknown) Bedside Urine Urobilinogen - Negative (units unknown) (unknown) (unknown) (no date) (unknown) (unknown) Bedside Urine pH 6.0 (units unknown) (unknown) (unknown) (no date) (unknown) (unknown) Blood Culture Stat (units unknown) (unknown) (unknown) (no date) (unknown) (unknown) Blood Pressure 128/7 8 08/10/22 14:28 (units unknown) (unknown) (unknown) (no date) (unknown) (unknown) Blood Pressure 128/7 8 113/58 L (units unknown) (unknown) (unknown) (no date) (unknown) (unknown) Blood Pressure (units unknown) (unknown) (unknown) (no date) (unknown) (unknown) CARDIOVASCULAR: Regular rate and rhythm without murmurs, gallops, or rubs. (units unknown) (unknown) (unknown) (no date) (unknown) (unknown) CBC No Diff [Complet e Blood Count NO DIFF] Stat (units unknown) (unknown) (unknown) (no date) (unknown) (unknown) Calcium (8.4-10.2) mg/dL (units unknown) (unknown) (unknown) (no date) (unknown) (unknown) Calcium 9.4 (8.4-10.2) mg/dL (units unknown) (unknown) (unknown) (no date) (unknown) (unknown) Carbon Dioxide (22-32) mmol/L (units unknown) (unknown) (unknown) (no date) (unknown) (unknown) Carbon Dioxide 21 L (22-32) mmol/L (units unknown) (unknown) (unknown) (no date) (unknown) (unknown) Ceftriaxone Sodium 1,000 mg/ (Sodium Chloride) 100 mls @ 200 mls/hr IV NOW ONE (units unknown) (unknown) (unknown) (no date) (unknown) (unknown) Chief Complaint: Nausea vomiting, type 1 diabetes (units unknown) (unknown) (unknown) (no date) (unknown) (unknown) Chief complaint: Nausea/Vomiting/Diarr hea (units unknown) (unknown) (unknown) (no date) (unknown) (unknown) Chloride (98-107) mmol/L (units unknown) (unknown) (unknown) (no date) (unknown) (unknown) Chloride 106 (98-107 ) mmol/L (units unknown) (unknown) (unknown) (no date) (unknown) (unknown) Clinical Impression: (units unknown) (unknown) (unknown) (no date) (unknown) (unknown) Complete Blood Count AUTO DIFF Stat (units unknown) (unknown) (unknown) (no date) (unknown) (unknown) Comprehensive Metabolic Panel Stat (units unknown) (unknown) (unknown) (no date) (unknown) (unknown) Cosign (units unknown) (unknown) (unknown) (no date) (unknown) (unknown) Course of care: Patient was asking for pain medication prior to giving her (units unknown) (unknown) (unknown) (no date) (unknown) (unknown) Course (units unknown) (unknown) (unknown) (no date) (unknown) (unknown) Creatinine (0.52-1.04) mg/dL (units unknown) (unknown) (unknown) (no date) (unknown) (unknown) Creatinine 0.62 (0.52-1.04) mg/dL (units unknown) (unknown) (unknown) (no date) (unknown) (unknown) Cyclic vomiting syndrome (units unknown) (unknown) (unknown) (no date) (unknown) (unknown) DKA (diabetic ketoacidoses) (units unknown) (unknown) (unknown) (no date) (unknown) (unknown) : 1995 Acct:[id number] (units unknown) (unknown) (unknown) (no date) (unknown) (unknown) Date of Service: 08/10/22 (units unknown) (unknown) (unknown) (no date) (unknown) (unknown) Departure (units unknown) (unknown) (unknown) (no date) (unknown) (unknown) Diabetes mellitus, type I (units unknown) (unknown) (unknown) (no date) (unknown) (unknown) Diazepam (Diazepam 1 0 Mg/2 Ml Syringe) 2 mg IV NOW ONE (units unknown) (unknown) (unknown) (no date) (unknown) (unknown) Discharge Plan (units unknown) (unknown) (unknown) (no date) (unknown) (unknown) Discontinued Medications (units unknown) (unknown) (unknown) (no date) (unknown) (unknown) Documented By: NR (units unknown) (unknown) (unknown) (no date) (unknown) (unknown) Documented By: RL (units unknown) (unknown) (unknown) (no date) (unknown) (unknown) Dose Instruction: (units unknown) (unknown) (unknown) (no date) (unknown) (unknown) Dr Krause Co-Sign Statement: I was available for consultation during this (units unknown) (unknown) (unknown) (no date) (unknown) (unknown) ED Attending Cosignature Attestation: (units unknown) (unknown) (unknown) (no date) (unknown) (unknown) ED Orders (units unknown) (unknown) (unknown) (no date) (unknown) (unknown) ENT: Nose without bleeding, purulent drainage. Airway patent. (units unknown) (unknown) (unknown) (no date) (unknown) (unknown) ER Physician: KimberlywKarol (units unknown) (unknown) (unknown) (no date) (unknown) (unknown) EXTREMITIES: Normal mobility and range of motion, without any weakness, (units unknown) (unknown) (unknown) (no date) (unknown) (unknown) EYES: Pupils equal round and reactive. Extraocular motions intact. No scleral (units unknown) (unknown) (unknown) (no date) (unknown) (unknown) Emergency Report (units unknown) (unknown) (unknown) (no date) (unknown) (unknown) Eos # (Auto) (0-450) /uL (units unknown) (unknown) (unknown) (no date) (unknown) (unknown) Eos # (Auto) 0 (0-450) /uL (units unknown) (unknown) (unknown) (no date) (unknown) (unknown) Eos % (Auto) (2-4) % (units unknown) (unknown) (unknown) (no date) (unknown) (unknown) Eos % (Auto) 0.0 L (2-4) % (units unknown) (unknown) (unknown) (no date) (unknown) (unknown) Esterase (units unknown) (unknown) (unknown) (no date) (unknown) (unknown) Estimated GFR > 60 (>60) mL/min (units unknown) (unknown) (unknown) (no date) (unknown) (unknown) Estimated GFR (>60) mL/min (units unknown) (unknown) (unknown) (no date) (unknown) (unknown) Exam Narrative: (units unknown) (unknown) (unknown) (no date) (unknown) (unknown) Exam (units unknown) (unknown) (unknown) (no date) (unknown) (unknown) Family History (units unknown) (unknown) (unknown) (no date) (unknown) (unknown) Father Healthy adult (units unknown) (unknown) (unknown) (no date) (unknown) (unknown) FiO2 21 (units unknown) (unknown) (unknown) (no date) (unknown) (unknown) FiO2 (units unknown) (unknown) (unknown) (no date) (unknown) (unknown) GASTROINTESTINAL: Abdomen soft, generalized tenderness, nondistended, no masses, (units unknown) (unknown) (unknown) (no date) (unknown) (unknown) GENERAL: [26] year old patient appears stated age. Well-developed patient, in (units unknown) (unknown) (unknown) (no date) (unknown) (unknown) Gastroparesis (units unknown) (unknown) (unknown) (no date) (unknown) (unknown) General (units unknown) (unknown) (unknown) (no date) (unknown) (unknown) Globulin (1.7-4.1) g/dL (units unknown) (unknown) (unknown) (no date) (unknown) (unknown) Globulin 3.7 (1.7-4.1) g/dL (units unknown) (unknown) (unknown) (no date) (unknown) (unknown) Glucose (70-100) mg/dL (units unknown) (unknown) (unknown) (no date) (unknown) (unknown) Glucose 221 H (70-100) mg/dL (units unknown) (unknown) (unknown) (no date) (unknown) (unknown) Glucose POC 350 (units unknown) (unknown) (unknown) (no date) (unknown) (unknown) HEAD: Atraumatic. Symmetrical face expressions (units unknown) (unknown) (unknown) (no date) (unknown) (unknown) HPI - Nausea/Vomiting/Diarr hea (units unknown) (unknown) (unknown) (no date) (unknown) (unknown) HPI Narrative: (units unknown) (unknown) (unknown) (no date) (unknown) (unknown) Hct (36-46) % (units unknown) (unknown) (unknown) (no date) (unknown) (unknown) Hct 37.5 (36-46) % (units unknown) (unknown) (unknown) (no date) (unknown) (unknown) Hgb (12.0-16.0) g/dL (units unknown) (unknown) (unknown) (no date) (unknown) (unknown) Hgb 12.4 (12.0-16.0) g/dL (units unknown) (unknown) (unknown) (no date) (unknown) (unknown) History of Present Illness (units unknown) (unknown) (unknown) (no date) (unknown) (unknown) Home Medications (units unknown) (unknown) (unknown) (no date) (unknown) (unknown) Delonte Trevino MD [Primary Care Provider] (units unknown) (unknown) (unknown) (no date) (unknown) (unknown) Hyaline Casts (None) (units unknown) (unknown) (unknown) (no date) (unknown) (unknown) Hyaline Casts 1-5/lp f (None) (units unknown) (unknown) (unknown) (no date) (unknown) (unknown) Hydromorphone HCl (Hydromorphone 0.5 Mg Inj) 0.5 mg IV NOW ONE (units unknown) (unknown) (unknown) (no date) (unknown) (unknown) I consulted with the ED attending physician Dr. Krause regarding higher level (units unknown) (unknown) (unknown) (no date) (unknown) (unknown) I have independently reviewed the patient's vital signs and nursing notes as (units unknown) (unknown) (unknown) (no date) (unknown) (unknown) I hope that you can use medications to help keep your antibiotics down. I hope (units unknown) (unknown) (unknown) (no date) (unknown) (unknown) INR (0.9-1.3) (units unknown) (unknown) (unknown) (no date) (unknown) (unknown) INR 1.3 (0.9-1.3) (units unknown) (unknown) (unknown) (no date) (unknown) (unknown) Independent historian: Patient and her sister Celsa (units unknown) (unknown) (unknown) (no date) (unknown) (unknown) Initial Vital Signs (units unknown) (unknown) (unknown) (no date) (unknown) (unknown) Initial Vital Signs: (units unknown) (unknown) (unknown) (no date) (unknown) (unknown) Instructions: DI for Dehydration -- Adult, DI for Urinary Tract Infection (UTI) (units unknown) (unknown) (unknown) (no date) (unknown) (unknown) Insulin dependent diabetes mellitus (units unknown) (unknown) (unknown) (no date) (unknown) (unknown) [address] [address] (units unknown) (unknown) (unknown) (no date) (unknown) (unknown) Ketones (<0.27) mmol/L (units unknown) (unknown) (unknown) (no date) (unknown) (unknown) Ketones (Beta-Hydroxybutyrate ) Stat (units unknown) (unknown) (unknown) (no date) (unknown) (unknown) Ketones 1.46 H (<0.27) mmol/L (units unknown) (unknown) (unknown) (no date) (unknown) (unknown) Lab Data (units unknown) (unknown) (unknown) (no date) (unknown) (unknown) Lab Results (units unknown) (unknown) (unknown) (no date) (unknown) (unknown) Labs: (units unknown) (unknown) (unknown) (no date) (unknown) (unknown) Lactate (0.7-2.1) mmol/L (units unknown) (unknown) (unknown) (no date) (unknown) (unknown) Lactate (Lactic Acid ) Stat (units unknown) (unknown) (unknown) (no date) (unknown) (unknown) Lactate 2.8 H (0.7-2.1) mmol/L (units unknown) (unknown) (unknown) (no date) (unknown) (unknown) Last Admin: 08/10/22 15:09 Dose: 4 mg (units unknown) (unknown) (unknown) (no date) (unknown) (unknown) Last Admin: 08/10/22 17:10 Dose: 0.5 mg (units unknown) (unknown) (unknown) (no date) (unknown) (unknown) Last Admin: 08/10/22 17:14 Dose: 10 mg (units unknown) (unknown) (unknown) (no date) (unknown) (unknown) Last Admin: 08/10/22 18:05 Dose: 2 mg (units unknown) (unknown) (unknown) (no date) (unknown) (unknown) Last Admin: 08/10/22 18:06 Dose: 40 mg (units unknown) (unknown) (unknown) (no date) (unknown) (unknown) Last Admin: 08/10/22 18:09 Dose: Not Given (units unknown) (unknown) (unknown) (no date) (unknown) (unknown) Last Infusion: 08/10/22 17:24 Dose: 0 mls/hr (units unknown) (unknown) (unknown) (no date) (unknown) (unknown) Last Infusion: 08/10/22 18:08 Dose: 404 mls/hr (units unknown) (unknown) (unknown) (no date) (unknown) (unknown) Last Infusion: 08/10/22 18:47 Dose: 0 mls/hr (units unknown) (unknown) (unknown) (no date) (unknown) (unknown) Last Infusion: 08/10/22 18:48 Dose: 0 mls/hr (units unknown) (unknown) (unknown) (no date) (unknown) (unknown) Lipase (23-300) U/L (units unknown) (unknown) (unknown) (no date) (unknown) (unknown) Lipase 16 L (23-300) U/L (units unknown) (unknown) (unknown) (no date) (unknown) (unknown) Lipase Stat (units unknown) (unknown) (unknown) (no date) (unknown) (unknown) Lymph # (Auto) (9339-3235) /uL (units unknown) (unknown) (unknown) (no date) (unknown) (unknown) Lymph # (Auto) 1000 L (9722-3820) /uL (units unknown) (unknown) (unknown) (no date) (unknown) (unknown) Lymph % (Auto) (25-40) % (units unknown) (unknown) (unknown) (no date) (unknown) (unknown) Lymph % (Auto) 5.1 L (25-40) % (units unknown) (unknown) (unknown) (no date) (unknown) (unknown) MCH (26-34) PG (units unknown) (unknown) (unknown) (no date) (unknown) (unknown) MCH 25.6 L (26-34) PG (units unknown) (unknown) (unknown) (no date) (unknown) (unknown) MCHC (30-36) % (units unknown) (unknown) (unknown) (no date) (unknown) (unknown) MCHC 33.1 (30-36) % (units unknown) (unknown) (unknown) (no date) (unknown) (unknown) MCV (80-100) fL (units unknown) (unknown) (unknown) (no date) (unknown) (unknown) MCV 77.3 L (80-100) fL (units unknown) (unknown) (unknown) (no date) (unknown) (unknown) MDM - Nausea/Vomiting/Diarr hea (units unknown) (unknown) (unknown) (no date) (unknown) (unknown) MDM Narrative (units unknown) (unknown) (unknown) (no date) (unknown) (unknown) Medical History (units unknown) (unknown) (unknown) (no date) (unknown) (unknown) Medical decision making narrative: (units unknown) (unknown) (unknown) (no date) (unknown) (unknown) Medication Instructions Recorded Confirmed (units unknown) (unknown) (unknown) (no date) (unknown) (unknown) Medication Instructions Recorded (units unknown) (unknown) (unknown) (no date) (unknown) (unknown) Metoclopramide HCl (Metoclopramide 10 Mg/2 Ml Inj) 10 mg IV NOW ONE (units unknown) (unknown) (unknown) (no date) (unknown) (unknown) Migraine headache with aura (units unknown) (unknown) (unknown) (no date) (unknown) (unknown) Mode of arrival: Family Vehicle (units unknown) (unknown) (unknown) (no date) (unknown) (unknown) [place] # (Auto) (0-900 ) /uL (units unknown) (unknown) (unknown) (no date) (unknown) (unknown) [place] # (Auto) 400 (0-900) /uL (units unknown) (unknown) (unknown) (no date) (unknown) (unknown) [place] % (Auto) (3-14) % (units unknown) (unknown) (unknown) (no date) (unknown) (unknown) [place]Brien % (Auto) 1.8 L (3-14) % (units unknown) (unknown) (unknown) (no date) (unknown) (unknown) Mother Hypertension (units unknown) (unknown) (unknown) (no date) (unknown) (unknown) Multiple etiologies for patient's symptoms considered including, but not limited (units unknown) (unknown) (unknown) (no date) (unknown) (unknown) My interpretation of imaging: (units unknown) (unknown) (unknown) (no date) (unknown) (unknown) My interpretation of lab studies: CBC is elevated at 20 with mild (units unknown) (unknown) (unknown) (no date) (unknown) (unknown) Myopia (units unknown) (unknown) (unknown) (no date) (unknown) (unknown) NAUSEA OR VOMITING (units unknown) (unknown) (unknown) (no date) (unknown) (unknown) NECK: Trachea midline. Non tender (units unknown) (unknown) (unknown) (no date) (unknown) (unknown) NEURO: AOx3, speech is clear, patient is ambulatory and appropriately (units unknown) (unknown) (unknown) (no date) (unknown) (unknown) Narrative (units unknown) (unknown) (unknown) (no date) (unknown) (unknown) Nausea and vomiting, Complicated urinary tract infection, Dehydration (units unknown) (unknown) (unknown) (no date) (unknown) (unknown) Neut # (Auto) (2622-5884) /uL (units unknown) (unknown) (unknown) (no date) (unknown) (unknown) Neut # (Auto) 19439 H (5409-1584) /uL (units unknown) (unknown) (unknown) (no date) (unknown) (unknown) Neut % (Auto) (50-75 ) % (units unknown) (unknown) (unknown) (no date) (unknown) (unknown) Neut % (Auto) 93.0 H (50-75) % (units unknown) (unknown) (unknown) (no date) (unknown) (unknown) New (units unknown) (unknown) (unknown) (no date) (unknown) (unknown) No Action (units unknown) (unknown) (unknown) (no date) (unknown) (unknown) ONE (units unknown) (unknown) (unknown) (no date) (unknown) (unknown) Ondansetron HCl (Ondansetron 4 Mg Odt) 4 mg SL NOW PRN (units unknown) (unknown) (unknown) (no date) (unknown) (unknown) Ondansetron HCl (Ondansetron 4 Mg/2 Ml Inj) 4 mg IV NOW PRN (units unknown) (unknown) (unknown) (no date) (unknown) (unknown) Ordered: (units unknown) (unknown) (unknown) (no date) (unknown) (unknown) Orders (units unknown) (unknown) (unknown) (no date) (unknown) (unknown) Oxygen Delivery Method Room Air 08/10/22 14:28 (units unknown) (unknown) (unknown) (no date) (unknown) (unknown) Oxygen Delivery Method Room Air (units unknown) (unknown) (unknown) (no date) (unknown) (unknown) Oxygen Delivery Method (units unknown) (unknown) (unknown) (no date) (unknown) (unknown) PRN Reason: Nausea And Vomiting (units unknown) (unknown) (unknown) (no date) (unknown) (unknown) PT (10.1-12.7) SECONDS (units unknown) (unknown) (unknown) (no date) (unknown) (unknown) PT 14.5 H (10.1-12.7 ) SECONDS (units unknown) (unknown) (unknown) (no date) (unknown) (unknown) PTT Partial Thromboplastin Sonny Stat (units unknown) (unknown) (unknown) (no date) (unknown) (unknown) Pancreatitis (units unknown) (unknown) (unknown) (no date) (unknown) (unknown) Pantoprazole Sodium (Pantoprazole 40 Mg Vial) 40 mg IV NOW ONE (units unknown) (unknown) (unknown) (no date) (unknown) (unknown) Patient Comments: (units unknown) (unknown) (unknown) (no date) (unknown) (unknown) Patient Disposition: Home (units unknown) (unknown) (unknown) (no date) (unknown) (unknown) Patient History (units unknown) (unknown) (unknown) (no date) (unknown) (unknown) Patient: Kaur Horton MR (units unknown) (unknown) (unknown) (no date) (unknown) (unknown) Plt Count (150-400) X103/uL (units unknown) (unknown) (unknown) (no date) (unknown) (unknown) Plt Count 327 (150-400) X103/uL (units unknown) (unknown) (unknown) (no date) (unknown) (unknown) Point of Care Testing (units unknown) (unknown) (unknown) (no date) (unknown) (unknown) Potassium (3.4-5.1) mmol/L (units unknown) (unknown) (unknown) (no date) (unknown) (unknown) Potassium 4.1 (3.4-5.1) mmol/L (units unknown) (unknown) (unknown) (no date) (unknown) (unknown) Prescriptions: (units unknown) (unknown) (unknown) (no date) (unknown) (unknown) Previous Rx's (units unknown) (unknown) (unknown) (no date) (unknown) (unknown) Procalcitonin (<0.5) ng/mL (units unknown) (unknown) (unknown) (no date) (unknown) (unknown) Procalcitonin 0.34 (<0.5) ng/mL (units unknown) (unknown) (unknown) (no date) (unknown) (unknown) Procalcitonin Cancelled (<0.5) ng/mL (units unknown) (unknown) (unknown) (no date) (unknown) (unknown) Procalcitonin Stat (units unknown) (unknown) (unknown) (no date) (unknown) (unknown) Prothrombin Time INR Stat (units unknown) (unknown) (unknown) (no date) (unknown) (unknown) Protonix, ceftriaxone, Bactrim, Dilaudid, and Valium. She was resting (units unknown) (unknown) (unknown) (no date) (unknown) (unknown) Pulse Oximetry 98 (units unknown) (unknown) (unknown) (no date) (unknown) (unknown) Pulse Oximetry 99 08/10/22 14:28 (units unknown) (unknown) (unknown) (no date) (unknown) (unknown) Pulse Oximetry 99 98 (units unknown) (unknown) (unknown) (no date) (unknown) (unknown) Pulse Rate 103 H (units unknown) (unknown) (unknown) (no date) (unknown) (unknown) Pulse Rate 106 H 08/10/22 14:28 (units unknown) (unknown) (unknown) (no date) (unknown) (unknown) Pulse Rate 106 H 110 H (units unknown) (unknown) (unknown) (no date) (unknown) (unknown) Questions are addressed and there is agreement with the plan and for follow-up. (units unknown) (unknown) (unknown) (no date) (unknown) (unknown) RBC (4.0-5.2) X106/uL (units unknown) (unknown) (unknown) (no date) (unknown) (unknown) RBC 4.85 (4.0-5.2) X106/uL (units unknown) (unknown) (unknown) (no date) (unknown) (unknown) RDW (11.6-14.8) % (units unknown) (unknown) (unknown) (no date) (unknown) (unknown) RDW 15.7 H (11.6-14.8) % (units unknown) (unknown) (unknown) (no date) (unknown) (unknown) RESPIRATORY: Clear t o auscultation. Breath sounds equal bilaterally. No wheezes, (units unknown) (unknown) (unknown) (no date) (unknown) (unknown) ROS Unobtainable: Al l systems reviewed + are unremarkable except as noted in HPI (units unknown) (unknown) (unknown) (no date) (unknown) (unknown) RT Consult Eval and Treat NOW (units unknown) (unknown) (unknown) (no date) (unknown) (unknown) Reassessment 18 30 patient is resting comfortably, her medications have helped (units unknown) (unknown) (unknown) (no date) (unknown) (unknown) Referrals: (units unknown) (unknown) (unknown) (no date) (unknown) (unknown) Related Data (units unknown) (unknown) (unknown) (no date) (unknown) (unknown) Repeat CBC shows reduction of her leukocytosis from 20 down to 15, repeat BMP (units unknown) (unknown) (unknown) (no date) (unknown) (unknown) Repeat lactate shows 0.9 (units unknown) (unknown) (unknown) (no date) (unknown) (unknown) Respiratory Rate 22 08/10/22 14:28 (units unknown) (unknown) (unknown) (no date) (unknown) (unknown) Respiratory Rate 22 (units unknown) (unknown) (unknown) (no date) (unknown) (unknown) Respiratory Rate 24 (units unknown) (unknown) (unknown) (no date) (unknown) (unknown) Review of Systems (units unknown) (unknown) (unknown) (no date) (unknown) (unknown) Rx Instructions: (units unknown) (unknown) (unknown) (no date) (unknown) (unknown) SKIN: No rash or erythema of visible areas (units unknown) (unknown) (unknown) (no date) (unknown) (unknown) See Rx Instructions .ROUTE .COMPLEX Qty: 473 0RF (units unknown) (unknown) (unknown) (no date) (unknown) (unknown) See Rx Instructions .ROUTE .MEDSUPPLY Qty: 500 1RF (units unknown) (unknown) (unknown) (no date) (unknown) (unknown) See Rx Instructions PO .COMPLEX Qty: 60 0RF (units unknown) (unknown) (unknown) (no date) (unknown) (unknown) Signed By: (units unknown) (unknown) (unknown) (no date) (unknown) (unknown) Since patient's most recent urine culture grew Staph lugdunensis opted to treat (units unknown) (unknown) (unknown) (no date) (unknown) (unknown) Smoking Status: Current every day smoker (units unknown) (unknown) (unknown) (no date) (unknown) (unknown) Social History (units unknown) (unknown) (unknown) (no date) (unknown) (unknown) Social consideration s that may affect disposition: none (units unknown) (unknown) (unknown) (no date) (unknown) (unknown) Sodium (137-145) mmol/L (units unknown) (unknown) (unknown) (no date) (unknown) (unknown) Sodium 142 (137-145) mmol/L (units unknown) (unknown) (unknown) (no date) (unknown) (unknown) Sodium Chloride (Normal Saline 0.9%) 1,000 mls @ 1,000 mls/hr IV BOLUS ONE (units unknown) (unknown) (unknown) (no date) (unknown) (unknown) Source: patient and family (units unknown) (unknown) (unknown) (no date) (unknown) (unknown) Stand Alone Forms: Patient Portal/API (units unknown) (unknown) (unknown) (no date) (unknown) (unknown) Stated complaint: pain all over body,vomiting (units unknown) (unknown) (unknown) (no date) (unknown) (unknown) Status post appendectomy (units unknown) (unknown) (unknown) (no date) (unknown) (unknown) Stop: 08/10/22 15:39 (units unknown) (unknown) (unknown) (no date) (unknown) (unknown) Stop: 08/10/22 16:39 (units unknown) (unknown) (unknown) (no date) (unknown) (unknown) Stop: 08/10/22 16:47 (units unknown) (unknown) (unknown) (no date) (unknown) (unknown) Stop: 08/10/22 16:48 (units unknown) (unknown) (unknown) (no date) (unknown) (unknown) Stop: 08/10/22 17:05 (units unknown) (unknown) (unknown) (no date) (unknown) (unknown) Stop: 08/10/22 17:19 (units unknown) (unknown) (unknown) (no date) (unknown) (unknown) Stop: 08/10/22 17:26 (units unknown) (unknown) (unknown) (no date) (unknown) (unknown) Stop: 08/10/22 17:34 (units unknown) (unknown) (unknown) (no date) (unknown) (unknown) Stop: 08/10/22 17:36 (units unknown) (unknown) (unknown) (no date) (unknown) (unknown) Stop: 08/10/22 17:45 (units unknown) (unknown) (unknown) (no date) (unknown) (unknown) Substance Use Type: marijuana (units unknown) (unknown) (unknown) (no date) (unknown) (unknown) Surgical History (units unknown) (unknown) (unknown) (no date) (unknown) (unknown) TAKE 10 MG (10ML) BY MOUTH EVERY 6 HOURS NEEDED FOR NAUSEA AND VOMITING (units unknown) (unknown) (unknown) (no date) (unknown) (unknown) TAKE 10 MG (10ML) BY MOUTH EVERY 6 HOURS NEEDED FOR NAUSEA AND VOMITING. (units unknown) (unknown) (unknown) (no date) (unknown) (unknown) Temperature 97.9 F 08/10/22 14:28 (units unknown) (unknown) (unknown) (no date) (unknown) (unknown) Temperature 97.9 F (units unknown) (unknown) (unknown) (no date) (unknown) (unknown) Temperature (units unknown) (unknown) (unknown) (no date) (unknown) (unknown) Thiamine HCl 100 mg/ Sodium (Chloride) 101 mls @ 404 mls/hr IV NOW ONE (units unknown) (unknown) (unknown) (no date) (unknown) (unknown) This is a 27-year-ol d female with history of type 1 diabetes, cyclic vomiting (units unknown) (unknown) (unknown) (no date) (unknown) (unknown) Time Seen by Provider: 08/10/22 16:38 (units unknown) (unknown) (unknown) (no date) (unknown) (unknown) Total Bilirubin (0.2-1.3) mg/dL (units unknown) (unknown) (unknown) (no date) (unknown) (unknown) Total Bilirubin 0.7 (0.2-1.3) mg/dL (units unknown) (unknown) (unknown) (no date) (unknown) (unknown) Total Protein (6.3-8.2) g/dL (units unknown) (unknown) (unknown) (no date) (unknown) (unknown) Total Protein 8.9 H (6.3-8.2) g/dL (units unknown) (unknown) (unknown) (no date) (unknown) (unknown) Trimethoprim/Sulfame t hoxazole (Trimeth/Sulfa 160/800 (Ds) Tablet) 1 tab PO NOW (units unknown) (unknown) (unknown) (no date) (unknown) (unknown) U-100 Insulin aspart) (units unknown) (unknown) (unknown) (no date) (unknown) (unknown) UNWRAP AND INSERT 1 SUPPOSITORY RECTALLY EVERY 4 TO 6 HOURS NEEDED FOR (units unknown) (unknown) (unknown) (no date) (unknown) (unknown) Ur Renal Epithelial Cell (0-1/HPF) (units unknown) (unknown) (unknown) (no date) (unknown) (unknown) Ur Renal Epithelial Cell 1-5/hpf H (0-1/HPF) (units unknown) (unknown) (unknown) (no date) (unknown) (unknown) Ur Squamous Epith Cells (0-5/HPF) (units unknown) (unknown) (unknown) (no date) (unknown) (unknown) Ur Squamous Epith Cells 0-1 /hpf (0-5/HPF) (units unknown) (unknown) (unknown) (no date) (unknown) (unknown) Urine Bacteria (None) (units unknown) (unknown) (unknown) (no date) (unknown) (unknown) Urine Bacteria Many (>30) H (None) (units unknown) (unknown) (unknown) (no date) (unknown) (unknown) Urine Culture Stat (units unknown) (unknown) (unknown) (no date) (unknown) (unknown) Urine Dip (units unknown) (unknown) (unknown) (no date) (unknown) (unknown) Urine Microscopic Stat (units unknown) (unknown) (unknown) (no date) (unknown) (unknown) Urine Mucus (Negative) (units unknown) (unknown) (unknown) (no date) (unknown) (unknown) Urine Mucus 1+ H (Negative) (units unknown) (unknown) (unknown) (no date) (unknown) (unknown) Urine RBC (0-5/HPF) (units unknown) (unknown) (unknown) (no date) (unknown) (unknown) Urine RBC None seen (0-5/HPF) (units unknown) (unknown) (unknown) (no date) (unknown) (unknown) Urine Specific [place] 1.030 (units unknown) (unknown) (unknown) (no date) (unknown) (unknown) Urine WBC (0-5/HPF) (units unknown) (unknown) (unknown) (no date) (unknown) (unknown) Urine WBC 5-10/hpf H (0-5/HPF) (units unknown) (unknown) (unknown) (no date) (unknown) (unknown) VBG Base Excess (0-4 ) mmol/L (units unknown) (unknown) (unknown) (no date) (unknown) (unknown) VBG Base Excess -3.0 L (0-4) mmol/L (units unknown) (unknown) (unknown) (no date) (unknown) (unknown) VBG HCO3 (24-28) mmol/L (units unknown) (unknown) (unknown) (no date) (unknown) (unknown) VBG HCO3 22 L (24-28 ) mmol/L (units unknown) (unknown) (unknown) (no date) (unknown) (unknown) VBG O2 Saturation (70-75) % (units unknown) (unknown) (unknown) (no date) (unknown) (unknown) VBG O2 Saturation 88 H (70-75) % (units unknown) (unknown) (unknown) (no date) (unknown) (unknown) VBG Total CO2 (24-29 ) mmol/L (units unknown) (unknown) (unknown) (no date) (unknown) (unknown) VBG Total CO2 23 L (24-29) mmol/L (units unknown) (unknown) (unknown) (no date) (unknown) (unknown) VBG pCO2 (45-50) mmHg (units unknown) (unknown) (unknown) (no date) (unknown) (unknown) VBG pCO2 36.2 L (45-50) mmHg (units unknown) (unknown) (unknown) (no date) (unknown) (unknown) VBG pH (7.33-7.43) (units unknown) (unknown) (unknown) (no date) (unknown) (unknown) VBG pH 7.38 (7.33-7.43) (units unknown) (unknown) (unknown) (no date) (unknown) (unknown) VBG pO2 (35-45) mmHg (units unknown) (unknown) (unknown) (no date) (unknown) (unknown) VBG pO2 56 H (35-45) mmHg (units unknown) (unknown) (unknown) (no date) (unknown) (unknown) Venous Blood Gas Stat (units unknown) (unknown) (unknown) (no date) (unknown) (unknown) Vital Signs - 8 hr (units unknown) (unknown) (unknown) (no date) (unknown) (unknown) Vital Signs (units unknown) (unknown) (unknown) (no date) (unknown) (unknown) Vital signs: (units unknown) (unknown) (unknown) (no date) (unknown) (unknown) WBC (4.5-11.0) X103/uL (units unknown) (unknown) (unknown) (no date) (unknown) (unknown) WBC 20.0 H (4.5-11.0 ) X103/uL (units unknown) (unknown) (unknown) (no date) (unknown) (unknown) WITH MIGRAINE. (units unknown) (unknown) (unknown) (no date) (unknown) (unknown) [ ] New medication written as a paper prescription (units unknown) (unknown) (unknown) (no date) (unknown) (unknown) [ ] No new medications given (units unknown) (unknown) (unknown) (no date) (unknown) (unknown) [Embedded Image Not Available] (units unknown) (unknown) (unknown) (no date) (unknown) (unknown) [x ] New medication prescriptions sent to your pharmacy: [ ] (units unknown) (unknown) (unknown) (no date) (unknown) (unknown) administrative purposes only. I did not have direct contact with this patient (units unknown) (unknown) (unknown) (no date) (unknown) (unknown) alcohol intake frequency: holidays/special occasions only (units unknown) (unknown) (unknown) (no date) (unknown) (unknown) alcohol intake: never (units unknown) (unknown) (unknown) (no date) (unknown) (unknown) ambulatory with steady gait (units unknown) (unknown) (unknown) (no date) (unknown) (unknown) and below (units unknown) (unknown) (unknown) (no date) (unknown) (unknown) appropriate for outpatient management. (units unknown) (unknown) (unknown) (no date) (unknown) (unknown) at least for an update. Let them know you were seen in the Emergency Department (units unknown) (unknown) (unknown) (no date) (unknown) (unknown) bilateral CVA tenderness to palpation no suprapubic tenderness, patient (units unknown) (unknown) (unknown) (no date) (unknown) (unknown) comfortably. Repeat BMP and CBC are pending (units unknown) (unknown) (unknown) (no date) (unknown) (unknown) culture from 11/14/2021 grew Staph lugdunensis which showed full susceptibility, (units unknown) (unknown) (unknown) (no date) (unknown) (unknown) denies fever chills, vision changes, diarrhea, upper respiratory infection (units unknown) (unknown) (unknown) (no date) (unknown) (unknown) during this visit. They were seen independently by the [facility]. (units unknown) (unknown) (unknown) (no date) (unknown) (unknown) emergency department today for intractable vomiting with nausea who presents (units unknown) (unknown) (unknown) (no date) (unknown) (unknown) emergency department today with intractable nausea vomiting since 04:00. She (units unknown) (unknown) (unknown) (no date) (unknown) (unknown) endorses bilateral low back pain, and history of UTIs. States that she feels a (units unknown) (unknown) (unknown) (no date) (unknown) (unknown) endorses vaginal discharge but states it is normal and not with odor. (units unknown) (unknown) (unknown) (no date) (unknown) (unknown) establish care with one of the [facility] primary care providers. (units unknown) (unknown) (unknown) (no date) (unknown) (unknown) evaluation, she ende d up having an elevated lactate, her nausea vomiting has (units unknown) (unknown) (unknown) (no date) (unknown) (unknown) for the above problem. We will electronically transmit a record of today's note (units unknown) (unknown) (unknown) (no date) (unknown) (unknown) hemoconcentration compared with prior lab work, there is a left shift however (units unknown) (unknown) (unknown) (no date) (unknown) (unknown) her feel better. She was given 2 L of normal saline, thiamine, Reglan, (units unknown) (unknown) (unknown) (no date) (unknown) (unknown) household members: spouse (units unknown) (unknown) (unknown) (no date) (unknown) (unknown) icterus. No injectio n or drainage. (units unknown) (unknown) (unknown) (no date) (unknown) (unknown) if your PCP or specialist is in our system. (units unknown) (unknown) (unknown) (no date) (unknown) (unknown) improved, ask her to leave a urine sample, she is currently in the bathroom, (units unknown) (unknown) (unknown) (no date) (unknown) (unknown) infection. You are quite dehydrated today but you are not in DKA, I am sorry (units unknown) (unknown) (unknown) (no date) (unknown) (unknown) insulin aspart U-100 100 unit/mL 1 sliding scale dose SUBCUT 10/04/21 (units unknown) (unknown) (unknown) (no date) (unknown) (unknown) insulin aspart U-100 [Novolog U-100 Insulin aspart] 100 unit/mL solution (units unknown) (unknown) (unknown) (no date) (unknown) (unknown) insulin syringes (disposable) 1 mL #500 ea 08/04/20 (units unknown) (unknown) (unknown) (no date) (unknown) (unknown) insulin, she took he r insulin 4 units via her insulin pump for a blood sugar of (units unknown) (unknown) (unknown) (no date) (unknown) (unknown) interactive (units unknown) (unknown) (unknown) (no date) (unknown) (unknown) ketorolac [From Toradol] Allergy Verified 08/10/22 14:43 (units unknown) (unknown) (unknown) (no date) (unknown) (unknown) liquids down, fever greater than 101F, chills, or other concerning symptom. (units unknown) (unknown) (unknown) (no date) (unknown) (unknown) lot of pain all over her body, states that her pain history is complicated. She (units unknown) (unknown) (unknown) (no date) (unknown) (unknown) metoclopramide HCl 5 mg/5 mL oral See Rx Instructions .Route 01/28/22 (units unknown) (unknown) (unknown) (no date) (unknown) (unknown) metoclopramide HCl 5 mg/5 mL solution (units unknown) (unknown) (unknown) (no date) (unknown) (unknown) mg-trimethoprim 160 mg tablet (units unknown) (unknown) (unknown) (no date) (unknown) (unknown) microscopy his significant for many bacteria without contaminant, RBCs. (units unknown) (unknown) (unknown) (no date) (unknown) (unknown) normal potassium level, bilateral CVA tenderness concerning for pyelonephritis (units unknown) (unknown) (unknown) (no date) (unknown) (unknown) not keep her medication down, or if you develop fever and chills. (units unknown) (unknown) (unknown) (no date) (unknown) (unknown) obvious distress, tearful, anxious, shaking (units unknown) (unknown) (unknown) (no date) (unknown) (unknown) of care considerations and he was available for consultation. Patient is (units unknown) (unknown) (unknown) (no date) (unknown) (unknown) pantoprazole 40 mg tablet,delayed 40 mg PO BID #30 tabs 02/07/22 (units unknown) (unknown) (unknown) (no date) (unknown) (unknown) pantoprazole 40 mg tablet,delayed release (DR/EC) (units unknown) (unknown) (unknown) (no date) (unknown) (unknown) patient is dehydrated, VBG pH of 7.38 with a pCO2 of 36.2, PO2 of 56, bicarb of (units unknown) (unknown) (unknown) (no date) (unknown) (unknown) patient with ceftriaxone and Bactrim after her nausea and vomiting improve. (units unknown) (unknown) (unknown) (no date) (unknown) (unknown) patient's emergency department visit. This chart is signed by myself for (units unknown) (unknown) (unknown) (no date) (unknown) (unknown) procalcitonin, blood cultures are pending (units unknown) (unknown) (unknown) (no date) (unknown) (unknown) promethazine 12.5 mg tablet 12.5 mg PO BID PRN sedation #14 08/10/22 (units unknown) (unknown) (unknown) (no date) (unknown) (unknown) promethazine 12.5 mg tablet (units unknown) (unknown) (unknown) (no date) (unknown) (unknown) promethazine 25 mg rectal 25 mg PA Q4-6H PRN Nausea And 01/27/22 02/07/22 (units unknown) (unknown) (unknown) (no date) (unknown) (unknown) promethazine [Promethegan] 25 mg suppository (units unknown) (unknown) (unknown) (no date) (unknown) (unknown) rales, or rhonchi.? (units unknown) (unknown) (unknown) (no date) (unknown) (unknown) related to urinary tract infection. We will follow-up on UA, added on (units unknown) (unknown) (unknown) (no date) (unknown) (unknown) release (units unknown) (unknown) (unknown) (no date) (unknown) (unknown) rizatriptan 10 mg tablet (Maxalt) See Rx Instructions PO .COMPLEX 01/29/22 (units unknown) (unknown) (unknown) (no date) (unknown) (unknown) rizatriptan [Maxalt] 10 mg tablet (units unknown) (unknown) (unknown) (no date) (unknown) (unknown) she is also had grou p B strep UTI from 10/06/2021, UA from 06/27/2021 grew (units unknown) (unknown) (unknown) (no date) (unknown) (unknown) shows (units unknown) (unknown) (unknown) (no date) (unknown) (unknown) solution .COMPLEX #473 mL (units unknown) (unknown) (unknown) (no date) (unknown) (unknown) staph epidermis whic h had full susceptibility as well (units unknown) (unknown) (unknown) (no date) (unknown) (unknown) subcutaneous solutio n (Novolog USEASDIRECTD #10 mL (units unknown) (unknown) (unknown) (no date) (unknown) (unknown) sulfamethoxazole 800 1 tab PO BID 10 days #20 tabs 08/10/22 (units unknown) (unknown) (unknown) (no date) (unknown) (unknown) sulfamethoxazole-tri m ethoprim [Bactrim DS] 800-160 mg tablet (units unknown) (unknown) (unknown) (no date) (unknown) (unknown) suppository (Promethegan) Vomiting (units unknown) (unknown) (unknown) (no date) (unknown) (unknown) symptoms or other ne w problem. Her PCP is Dr. Trevino. (units unknown) (unknown) (unknown) (no date) (unknown) (unknown) syndrome, gastroparesis, DKA, appendectomy, pancreatitis who presents to the (units unknown) (unknown) (unknown) (no date) (unknown) (unknown) tabs (units unknown) (unknown) (unknown) (no date) (unknown) (unknown) take 1 tab at onset of headache; if no relief may repeat 1 tab after at least (units unknown) (unknown) (unknown) (no date) (unknown) (unknown) that you did not fee l well. I have prescribed for you some more Phenergan, and (units unknown) (unknown) (unknown) (no date) (unknown) (unknown) to: UTI, pyelonephritis, nephrolithiasis, DKA, vaginal infection. (units unknown) (unknown) (unknown) (no date) (unknown) (unknown) tobacco type: vaping (units unknown) (unknown) (unknown) (no date) (unknown) (unknown) well as prior record s if available. Pertinent records include: Prior urine (units unknown) (unknown) (unknown) (no date) (unknown) (unknown) will treat her lacti c acidosis with a secondary L of normal saline, she has a (units unknown) (unknown) (unknown) (no date) (unknown) (unknown) you start feeling better soon, please return for worsening condition if you can (units unknown) (unknown) Result panel [id number] (unknown) (no date) (unknown) (unknown) > 60 ml/min (unknown) (unknown) (no date) (unknown) (unknown) > 60 ml/min (unknown) (unknown) (no date) (unknown) (unknown) 0.48 mg/dl (unknown) (unknown) (no date) (unknown) (unknown) 110 mmol/l (unknown) (unknown) (no date) (unknown) (unknown) 131 mg/dl (unknown) (unknown) (no date) (unknown) (unknown) 131 mg/dl (unknown) (unknown) (no date) (unknown) (unknown) 139 mmol/l (unknown) (unknown) (no date) (unknown) (unknown) 19 mg/dl (unknown) (unknown) (no date) (unknown) (unknown) 22 mmol/l (unknown) (unknown) (no date) (unknown) (unknown) 3.9 mmol/l (unknown) (unknown) (no date) (unknown) (unknown) 39.6 (units unknown) (unknown) (unknown) (no date) (unknown) (unknown) 7.4 mg/dl (unknown) Result panel 1592 (unknown) (no date) (unknown) (unknown) >100,000 cfu/ml (unknown) (unknown) (no date) (unknown) (unknown) GNBGram negative bacilli (units unknown) (unknown) (unknown) (no date) (unknown) (unknown) Identification and Sensitivity to Follow (units unknown) (unknown) Result panel 1593 (unknown) (no date) (unknown) (unknown) (no value) (units unknown) (unknown) (unknown) (no date) (unknown) (unknown) #60 tabs (units unknown) (unknown) (unknown) (no date) (unknown) (unknown) #: [id number] (units unknown) (unknown) (unknown) (no date) (unknown) (unknown) (Bactrim DS) (units unknown) (unknown) (unknown) (no date) (unknown) (unknown) (DME) insulin syringes (disposable) 1 mL syringe (units unknown) (unknown) (unknown) (no date) (unknown) (unknown) * Clinical Decision Rules/Scores evaluated: None (units unknown) (unknown) (unknown) (no date) (unknown) (unknown) * Independent discussions with: None (units unknown) (unknown) (unknown) (no date) (unknown) (unknown) * My imgaing interpretation: [ ] (units unknown) (unknown) (unknown) (no date) (unknown) (unknown) * My lab interpretation: [ ] (units unknown) (unknown) (unknown) (no date) (unknown) (unknown) * Prior records reviewed: Patient was seen here yesterday for a complex UTI. (units unknown) (unknown) (unknown) (no date) (unknown) (unknown) * differential diagnosis includes but not limited to [ ] (units unknown) (unknown) (unknown) (no date) (unknown) (unknown) 08/11/22 (units unknown) (unknown) (unknown) (no date) (unknown) (unknown) 1 sliding scale dose SUBCUT USEASDIRECTD Qty: 10 3RF (units unknown) (unknown) (unknown) (no date) (unknown) (unknown) 1 tab PO BID 10 Days Qty: 20 0RF (units unknown) (unknown) (unknown) (no date) (unknown) (unknown) 12 point review of systems is negative except for those stated above (units unknown) (unknown) (unknown) (no date) (unknown) (unknown) 12.5 mg PO BID PRN (Reason: sedation) Qty: 14 0RF (units unknown) (unknown) (unknown) (no date) (unknown) (unknown) 13:46 08/11/22 (units unknown) (unknown) (unknown) (no date) (unknown) (unknown) 13:46 (units unknown) (unknown) (unknown) (no date) (unknown) (unknown) 13:53 08/11/22 (units unknown) (unknown) (unknown) (no date) (unknown) (unknown) 2 hrs; max = 3 tabs/24 hr PO (units unknown) (unknown) (unknown) (no date) (unknown) (unknown) 25 mg PA Q4-6H PRN (Reason: Nausea And Vomiting) (units unknown) (unknown) (unknown) (no date) (unknown) (unknown) 40 mg PO BID Qty: 30 0RF (units unknown) (unknown) (unknown) (no date) (unknown) (unknown) Age/Sex: 27 / F (units unknown) (unknown) (unknown) (no date) (unknown) (unknown) Allergies (units unknown) (unknown) (unknown) (no date) (unknown) (unknown) Allergy/AdvReac Type Severity Reaction Status Date / Time (units unknown) (unknown) (unknown) (no date) (unknown) (unknown) Anemia (units unknown) (unknown) (unknown) (no date) (unknown) (unknown) As directed for use with insulin injections (units unknown) (unknown) (unknown) (no date) (unknown) (unknown) BACK: Nontender without deformity or crepitance. No flank tenderness. (units unknown) (unknown) (unknown) (no date) (unknown) (unknown) Blood Pressure 123/7 7 08/11/22 13:46 (units unknown) (unknown) (unknown) (no date) (unknown) (unknown) Blood Pressure 123/7 7 123/77 (units unknown) (unknown) (unknown) (no date) (unknown) (unknown) CARDIOVASCULAR: Denies chest pain, palpitations, orthopnea, edema, (units unknown) (unknown) (unknown) (no date) (unknown) (unknown) CARDIOVASCULAR: Regular rate and rhythm without murmurs, gallops, or rubs. (units unknown) (unknown) (unknown) (no date) (unknown) (unknown) Chief complaint: Urogenital-Female (units unknown) (unknown) (unknown) (no date) (unknown) (unknown) Course (units unknown) (unknown) (unknown) (no date) (unknown) (unknown) Cyclic vomiting syndrome (units unknown) (unknown) (unknown) (no date) (unknown) (unknown) DKA (diabetic ketoacidoses) (units unknown) (unknown) (unknown) (no date) (unknown) (unknown) : 1995 Acct:[id number] (units unknown) (unknown) (unknown) (no date) (unknown) (unknown) Date of Service: 08/11/22 (units unknown) (unknown) (unknown) (no date) (unknown) (unknown) Departure (units unknown) (unknown) (unknown) (no date) (unknown) (unknown) Diabetes mellitus, type I (units unknown) (unknown) (unknown) (no date) (unknown) (unknown) Discharge Plan (units unknown) (unknown) (unknown) (no date) (unknown) (unknown) Disposition: [ ] (units unknown) (unknown) (unknown) (no date) (unknown) (unknown) Dose Instruction: (units unknown) (unknown) (unknown) (no date) (unknown) (unknown) ED Course: [ ] (units unknown) (unknown) (unknown) (no date) (unknown) (unknown) ENT: Nose without bleeding, purulent drainage. Throat without erythema, (units unknown) (unknown) (unknown) (no date) (unknown) (unknown) ER Physician: Franc Hutchinson P.A-C (units unknown) (unknown) (unknown) (no date) (unknown) (unknown) EXTREMITIES: No dulce a or joint tenderness. (units unknown) (unknown) (unknown) (no date) (unknown) (unknown) EYES: Pupils equal round and reactive. Extraocular motions intact. No scleral (units unknown) (unknown) (unknown) (no date) (unknown) (unknown) Emergency Report (units unknown) (unknown) (unknown) (no date) (unknown) (unknown) Exam Narrative: (units unknown) (unknown) (unknown) (no date) (unknown) (unknown) Exam (units unknown) (unknown) (unknown) (no date) (unknown) (unknown) Family History (units unknown) (unknown) (unknown) (no date) (unknown) (unknown) Father Healthy adult (units unknown) (unknown) (unknown) (no date) (unknown) (unknown) GASTROINTESTINAL: Abdomen soft, non-tender, nondistended. (units unknown) (unknown) (unknown) (no date) (unknown) (unknown) GASTROINTESTINAL: Denies nausea, vomiting, abdominal pain, diarrhea, (units unknown) (unknown) (unknown) (no date) (unknown) (unknown) GENERAL: Denies chills, fatigue, malaise, fever, sweats. (units unknown) (unknown) (unknown) (no date) (unknown) (unknown) GENERAL: Well-developed patient, in mild distress. (units unknown) (unknown) (unknown) (no date) (unknown) (unknown) : Denies dysuria, frequency, incontinence, hematuria, urinary retention. (units unknown) (unknown) (unknown) (no date) (unknown) (unknown) Gastroparesis (units unknown) (unknown) (unknown) (no date) (unknown) (unknown) General (units unknown) (unknown) (unknown) (no date) (unknown) (unknown) HEAD: Atraumatic. Normocephalic. (units unknown) (unknown) (unknown) (no date) (unknown) (unknown) HEENT: Denies sinus pain, ear pain, sore throat, difficulty swallowing, (units unknown) (unknown) (unknown) (no date) (unknown) (unknown) HPI - Female Genitourinary (units unknown) (unknown) (unknown) (no date) (unknown) (unknown) HPI Narrative: (units unknown) (unknown) (unknown) (no date) (unknown) (unknown) History of Present Illness (units unknown) (unknown) (unknown) (no date) (unknown) (unknown) History of type 1 diabetes, cyclic vomiting syndrome, gastroparesis, DKA, (units unknown) (unknown) (unknown) (no date) (unknown) (unknown) Home Medications (units unknown) (unknown) (unknown) (no date) (unknown) (unknown) Delonte Trevino MD [Primary Care Provider] (units unknown) (unknown) (unknown) (no date) (unknown) (unknown) Initial Vital Signs (units unknown) (unknown) (unknown) (no date) (unknown) (unknown) Initial Vital Signs: (units unknown) (unknown) (unknown) (no date) (unknown) (unknown) Insulin dependent diabetes mellitus (units unknown) (unknown) (unknown) (no date) (unknown) (unknown) [address] [address] (units unknown) (unknown) (unknown) (no date) (unknown) (unknown) MDM - Female Genitourinary (units unknown) (unknown) (unknown) (no date) (unknown) (unknown) MDM Narrative (units unknown) (unknown) (unknown) (no date) (unknown) (unknown) MDM (units unknown) (unknown) (unknown) (no date) (unknown) (unknown) MUSCULOSKELETAL: denies weakness, joint pain, or bony pain (units unknown) (unknown) (unknown) (no date) (unknown) (unknown) Medical History (units unknown) (unknown) (unknown) (no date) (unknown) (unknown) Medical decision making narrative: (units unknown) (unknown) (unknown) (no date) (unknown) (unknown) Medication Instructions Recorded Confirmed (units unknown) (unknown) (unknown) (no date) (unknown) (unknown) Medication Instructions Recorded (units unknown) (unknown) (unknown) (no date) (unknown) (unknown) Migraine headache with aura (units unknown) (unknown) (unknown) (no date) (unknown) (unknown) Mode of arrival: Ambulatory (units unknown) (unknown) (unknown) (no date) (unknown) (unknown) Mother Hypertension (units unknown) (unknown) (unknown) (no date) (unknown) (unknown) Myopia (units unknown) (unknown) (unknown) (no date) (unknown) (unknown) NAUSEA OR VOMITING (units unknown) (unknown) (unknown) (no date) (unknown) (unknown) NECK: Trachea midline. Non tender (units unknown) (unknown) (unknown) (no date) (unknown) (unknown) NEURO: AOx3. (units unknown) (unknown) (unknown) (no date) (unknown) (unknown) NEUROLOGIC: Denies weakness, headache, numbness, change in speech, confusion, (units unknown) (unknown) (unknown) (no date) (unknown) (unknown) Narrative (units unknown) (unknown) (unknown) (no date) (unknown) (unknown) Narrative: (units unknown) (unknown) (unknown) (no date) (unknown) (unknown) No Action (units unknown) (unknown) (unknown) (no date) (unknown) (unknown) Oxygen Delivery Method Room Air (units unknown) (unknown) (unknown) (no date) (unknown) (unknown) PSYCHIATRIC: No concerning psychosocial issues. (units unknown) (unknown) (unknown) (no date) (unknown) (unknown) Pancreatitis (units unknown) (unknown) (unknown) (no date) (unknown) (unknown) Patient Comments: (units unknown) (unknown) (unknown) (no date) (unknown) (unknown) Patient History (units unknown) (unknown) (unknown) (no date) (unknown) (unknown) Patient: Kaur Hortno MR (units unknown) (unknown) (unknown) (no date) (unknown) (unknown) Prescriptions: (units unknown) (unknown) (unknown) (no date) (unknown) (unknown) Previous Rx's (units unknown) (unknown) (unknown) (no date) (unknown) (unknown) Pulse Oximetry 100 99 (units unknown) (unknown) (unknown) (no date) (unknown) (unknown) Pulse Oximetry 99 08/11/22 13:46 (units unknown) (unknown) (unknown) (no date) (unknown) (unknown) Pulse Rate 108 H 08/11/22 13:46 (units unknown) (unknown) (unknown) (no date) (unknown) (unknown) Pulse Rate 111 H 108 H (units unknown) (unknown) (unknown) (no date) (unknown) (unknown) RESPIRATORY: Clear t o auscultation. Breath sounds equal bilaterally. No wheezes, (units unknown) (unknown) (unknown) (no date) (unknown) (unknown) RESPIRATORY: Denies dyspnea, cough, wheezing, hemoptysis, sputum. (units unknown) (unknown) (unknown) (no date) (unknown) (unknown) Referrals: (units unknown) (unknown) (unknown) (no date) (unknown) (unknown) Related Data (units unknown) (unknown) (unknown) (no date) (unknown) (unknown) Respiratory Rate 20 (units unknown) (unknown) (unknown) (no date) (unknown) (unknown) Review of Systems (units unknown) (unknown) (unknown) (no date) (unknown) (unknown) Rx Instructions: (units unknown) (unknown) (unknown) (no date) (unknown) (unknown) SKIN: Denies rash, skin lesions, or other (units unknown) (unknown) (unknown) (no date) (unknown) (unknown) SKIN: No rash or erythema of visible areas (units unknown) (unknown) (unknown) (no date) (unknown) (unknown) See Rx Instructions .ROUTE .COMPLEX Qty: 473 0RF (units unknown) (unknown) (unknown) (no date) (unknown) (unknown) See Rx Instructions .ROUTE .MEDSUPPLY Qty: 500 1RF (units unknown) (unknown) (unknown) (no date) (unknown) (unknown) See Rx Instructions PO .COMPLEX Qty: 60 0RF (units unknown) (unknown) (unknown) (no date) (unknown) (unknown) Shared Decision Making: Discussed plan with the patient who is comfortable with (units unknown) (unknown) (unknown) (no date) (unknown) (unknown) Signed By: (units unknown) (unknown) (unknown) (no date) (unknown) (unknown) Social Considerations: None (units unknown) (unknown) (unknown) (no date) (unknown) (unknown) Source: patient (units unknown) (unknown) (unknown) (no date) (unknown) (unknown) Stated complaint: wa s here T-1/symptoms worsening (units unknown) (unknown) (unknown) (no date) (unknown) (unknown) Status post appendectomy (units unknown) (unknown) (unknown) (no date) (unknown) (unknown) Substance Use Type: marijuana (units unknown) (unknown) (unknown) (no date) (unknown) (unknown) Surgical History (units unknown) (unknown) (unknown) (no date) (unknown) (unknown) TAKE 10 MG (10ML) BY MOUTH EVERY 6 HOURS NEEDED FOR NAUSEA AND VOMITING (units unknown) (unknown) (unknown) (no date) (unknown) (unknown) TAKE 10 MG (10ML) BY MOUTH EVERY 6 HOURS NEEDED FOR NAUSEA AND VOMITING. (units unknown) (unknown) (unknown) (no date) (unknown) (unknown) Temperature 97.5 F L (units unknown) (unknown) (unknown) (no date) (unknown) (unknown) This is a 27-year-ol d female presents emergency department due to (units unknown) (unknown) (unknown) (no date) (unknown) (unknown) Time Seen by Provider: 08/11/22 13:24 (units unknown) (unknown) (unknown) (no date) (unknown) (unknown) U-100 Insulin aspart) (units unknown) (unknown) (unknown) (no date) (unknown) (unknown) UNWRAP AND INSERT 1 SUPPOSITORY RECTALLY EVERY 4 TO 6 HOURS NEEDED FOR (units unknown) (unknown) (unknown) (no date) (unknown) (unknown) Vital Signs - 8 hr (units unknown) (unknown) (unknown) (no date) (unknown) (unknown) Vital Signs (units unknown) (unknown) (unknown) (no date) (unknown) (unknown) Vital signs: (units unknown) (unknown) (unknown) (no date) (unknown) (unknown) WITH MIGRAINE. (units unknown) (unknown) (unknown) (no date) (unknown) (unknown) alcohol intake frequency: holidays/special occasions only (units unknown) (unknown) (unknown) (no date) (unknown) (unknown) appendectomy, pancreatitis. Was seen yesterday for intractable vomiting with (units unknown) (unknown) (unknown) (no date) (unknown) (unknown) blood glucose monitor. Was advised to take her insulin 4 units for blood sugar (units unknown) (unknown) (unknown) (no date) (unknown) (unknown) constipation, melena. (units unknown) (unknown) (unknown) (no date) (unknown) (unknown) dizziness. (units unknown) (unknown) (unknown) (no date) (unknown) (unknown) for urine glucose, ketones, occult blood, nitrites. Patient has a personal (units unknown) (unknown) (unknown) (no date) (unknown) (unknown) icterus. No injectio n or drainage. (units unknown) (unknown) (unknown) (no date) (unknown) (unknown) insulin aspart U-100 100 unit/mL 1 sliding scale dose SUBCUT 10/04/21 (units unknown) (unknown) (unknown) (no date) (unknown) (unknown) insulin aspart U-100 [Novolog U-100 Insulin aspart] 100 unit/mL solution (units unknown) (unknown) (unknown) (no date) (unknown) (unknown) insulin syringes (disposable) 1 mL #500 ea 08/04/20 (units unknown) (unknown) (unknown) (no date) (unknown) (unknown) ketorolac [From Toradol] Allergy Verified 08/10/22 14:43 (units unknown) (unknown) (unknown) (no date) (unknown) (unknown) metoclopramide HCl 5 mg/5 mL oral See Rx Instructions .Route 01/28/22 (units unknown) (unknown) (unknown) (no date) (unknown) (unknown) metoclopramide HCl 5 mg/5 mL solution (units unknown) (unknown) (unknown) (no date) (unknown) (unknown) mg-trimethoprim 160 mg tablet (units unknown) (unknown) (unknown) (no date) (unknown) (unknown) nausea. Patient was given ondansetron, diazepam, Dilaudid, normal saline, (units unknown) (unknown) (unknown) (no date) (unknown) (unknown) of 332. Patient was treated with ceftriaxone and Bactrim due to her most recent (units unknown) (unknown) (unknown) (no date) (unknown) (unknown) pantoprazole 40 mg tablet,delayed 40 mg PO BID #30 tabs 02/07/22 (units unknown) (unknown) (unknown) (no date) (unknown) (unknown) pantoprazole 40 mg tablet,delayed release (DR/EC) (units unknown) (unknown) (unknown) (no date) (unknown) (unknown) prescriptions for promethazine and Bactrim. (units unknown) (unknown) (unknown) (no date) (unknown) (unknown) promethazine 12.5 mg tablet 12.5 mg PO BID PRN sedation #14 08/10/22 (units unknown) (unknown) (unknown) (no date) (unknown) (unknown) promethazine 12.5 mg tablet (units unknown) (unknown) (unknown) (no date) (unknown) (unknown) promethazine 25 mg rectal 25 mg PA Q4-6H PRN Nausea And 01/27/22 02/07/22 (units unknown) (unknown) (unknown) (no date) (unknown) (unknown) promethazine [Promethegan] 25 mg suppository (units unknown) (unknown) (unknown) (no date) (unknown) (unknown) rales, or rhonchi. (units unknown) (unknown) (unknown) (no date) (unknown) (unknown) release (units unknown) (unknown) (unknown) (no date) (unknown) (unknown) rizatriptan 10 mg tablet (Maxalt) See Rx Instructions PO .COMPLEX 01/29/22 (units unknown) (unknown) (unknown) (no date) (unknown) (unknown) rizatriptan [Maxalt] 10 mg tablet (units unknown) (unknown) (unknown) (no date) (unknown) (unknown) seizures, incoordination. (units unknown) (unknown) (unknown) (no date) (unknown) (unknown) solution .COMPLEX #473 mL (units unknown) (unknown) (unknown) (no date) (unknown) (unknown) subcutaneous solutio n (Novolog USEASDIRECTD #10 mL (units unknown) (unknown) (unknown) (no date) (unknown) (unknown) sulfamethoxazole 800 1 tab PO BID 10 days #20 tabs 08/10/22 (units unknown) (unknown) (unknown) (no date) (unknown) (unknown) sulfamethoxazole-tri m ethoprim [Bactrim DS] 800-160 mg tablet (units unknown) (unknown) (unknown) (no date) (unknown) (unknown) suppository (Promethegan) Vomiting (units unknown) (unknown) (unknown) (no date) (unknown) (unknown) tabs (units unknown) (unknown) (unknown) (no date) (unknown) (unknown) take 1 tab at onset of headache; if no relief may repeat 1 tab after at least (units unknown) (unknown) (unknown) (no date) (unknown) (unknown) the plan. (units unknown) (unknown) (unknown) (no date) (unknown) (unknown) thiamine, Rocephin, Reglan, pantoprazole, Bactrim. White count was 20. Lactate (units unknown) (unknown) (unknown) (no date) (unknown) (unknown) tobacco type: vaping (units unknown) (unknown) (unknown) (no date) (unknown) (unknown) tonsillar hypertroph y or exudate. Airway patent. (units unknown) (unknown) (unknown) (no date) (unknown) (unknown) urine culture growin g staph lugdunensis. Patient was discharged with (units unknown) (unknown) (unknown) (no date) (unknown) (unknown) was 2.8. Repeat lab work was 15 WBC. Repeat lactate was 0.9. UA was positive (units unknown) (unknown) Result panel [id number] (unknown) (no date) (unknown) (unknown) 1-5/HPF (units unknown) (unknown) (unknown) (no date) (unknown) (unknown) 1-5/HPF (units unknown) (unknown) (unknown) (no date) (unknown) (unknown) 5-10 /HPF (units unknown) (unknown) (unknown) (no date) (unknown) (unknown) 5-10/HPF (units unknown) (unknown) (unknown) (no date) (unknown) (unknown) Many (>30) (units unknown) (unknown) (unknown) (no date) (unknown) (unknown) Specimen Cultured (units unknown) (unknown) Result panel [id number] (unknown) (no date) (unknown) (unknown) (no value) (units unknown) (unknown) (unknown) (no date) (unknown) (unknown) #60 tabs (units unknown) (unknown) (unknown) (no date) (unknown) (unknown) #: [id number] (units unknown) (unknown) (unknown) (no date) (unknown) (unknown) (Bactrim DS) (units unknown) (unknown) (unknown) (no date) (unknown) (unknown) (DME) insulin syringes (disposable) 1 mL syringe (units unknown) (unknown) (unknown) (no date) (unknown) (unknown) (please see below fo r record review) but did not picking tech her medications. She (units unknown) (unknown) (unknown) (no date) (unknown) (unknown) * Clinical Decision Rules/Scores evaluated: None (units unknown) (unknown) (unknown) (no date) (unknown) (unknown) * Independent discussions with: None (units unknown) (unknown) (unknown) (no date) (unknown) (unknown) * My imgaing interpretation: None obtained (units unknown) (unknown) (unknown) (no date) (unknown) (unknown) * My lab interpretation: None obtained (units unknown) (unknown) (unknown) (no date) (unknown) (unknown) * Prior records reviewed: Patient was seen here yesterday for a complex UTI. (units unknown) (unknown) (unknown) (no date) (unknown) (unknown) * differential diagnosis includes but not limited to pancreatitis, (units unknown) (unknown) (unknown) (no date) (unknown) (unknown) 08/11/22 14:25 (units unknown) (unknown) (unknown) (no date) (unknown) (unknown) 08/11/22 Range/Units (units unknown) (unknown) (unknown) (no date) (unknown) (unknown) 08/11/22 (units unknown) (unknown) (unknown) (no date) (unknown) (unknown) 1 sliding scale dose SUBCUT USEASDIRECTD Qty: 10 3RF (units unknown) (unknown) (unknown) (no date) (unknown) (unknown) 1 tab PO BID 10 Days Qty: 20 0RF (units unknown) (unknown) (unknown) (no date) (unknown) (unknown) 12 point review of systems is negative except for those stated above (units unknown) (unknown) (unknown) (no date) (unknown) (unknown) 12.5 mg PO BID PRN (Reason: sedation) Qty: 14 0RF (units unknown) (unknown) (unknown) (no date) (unknown) (unknown) 13:46 08/11/22 (units unknown) (unknown) (unknown) (no date) (unknown) (unknown) 13:46 (units unknown) (unknown) (unknown) (no date) (unknown) (unknown) 13:53 08/11/22 (units unknown) (unknown) (unknown) (no date) (unknown) (unknown) 14:25 (units unknown) (unknown) (unknown) (no date) (unknown) (unknown) 2 hrs; max = 3 tabs/24 hr PO (units unknown) (unknown) (unknown) (no date) (unknown) (unknown) 25 mg PA Q4-6H PRN (Reason: Nausea And Vomiting) (units unknown) (unknown) (unknown) (no date) (unknown) (unknown) 40 mg PO BID Qty: 30 0RF (units unknown) (unknown) (unknown) (no date) (unknown) (unknown) Activity Restrictions/Addition al Instructions: (units unknown) (unknown) (unknown) (no date) (unknown) (unknown) Age/Sex: 27 / F (units unknown) (unknown) (unknown) (no date) (unknown) (unknown) Allergies (units unknown) (unknown) (unknown) (no date) (unknown) (unknown) Allergy/AdvReac Type Severity Reaction Status Date / Time (units unknown) (unknown) (unknown) (no date) (unknown) (unknown) Anemia (units unknown) (unknown) (unknown) (no date) (unknown) (unknown) As directed for use with insulin injections (units unknown) (unknown) (unknown) (no date) (unknown) (unknown) BACK: Nontender without deformity or crepitance. No flank tenderness. (units unknown) (unknown) (unknown) (no date) (unknown) (unknown) Bedside Urine Bilirubin - Negative (units unknown) (unknown) (unknown) (no date) (unknown) (unknown) Bedside Urine Glucos e Negative (units unknown) (unknown) (unknown) (no date) (unknown) (unknown) Bedside Urine Ketone +++ 80 (units unknown) (unknown) (unknown) (no date) (unknown) (unknown) Bedside Urine Leukocytes - Negative (units unknown) (unknown) (unknown) (no date) (unknown) (unknown) Bedside Urine Nitrit e - Negative (units unknown) (unknown) (unknown) (no date) (unknown) (unknown) Bedside Urine Occult Blood +/ (units unknown) (unknown) (unknown) (no date) (unknown) (unknown) Bedside Urine Protei n + 30 (units unknown) (unknown) (unknown) (no date) (unknown) (unknown) Bedside Urine Urobilinogen - Negative (units unknown) (unknown) (unknown) (no date) (unknown) (unknown) Bedside Urine pH 6.0 (units unknown) (unknown) (unknown) (no date) (unknown) (unknown) Blood Pressure 123/7 7 08/11/22 13:46 (units unknown) (unknown) (unknown) (no date) (unknown) (unknown) Blood Pressure 123/7 7 123/77 (units unknown) (unknown) (unknown) (no date) (unknown) (unknown) CARDIOVASCULAR: Denies chest pain, palpitations, orthopnea, edema, (units unknown) (unknown) (unknown) (no date) (unknown) (unknown) CARDIOVASCULAR: Regular rate and rhythm without murmurs, gallops, or rubs. (units unknown) (unknown) (unknown) (no date) (unknown) (unknown) Chief complaint: Urogenital-Female (units unknown) (unknown) (unknown) (no date) (unknown) (unknown) Clinical Impression: (units unknown) (unknown) (unknown) (no date) (unknown) (unknown) Course (units unknown) (unknown) (unknown) (no date) (unknown) (unknown) Cyclic vomiting syndrome (units unknown) (unknown) (unknown) (no date) (unknown) (unknown) DKA (diabetic ketoacidoses) (units unknown) (unknown) (unknown) (no date) (unknown) (unknown) : 1995 Acct:[id number] (units unknown) (unknown) (unknown) (no date) (unknown) (unknown) Date of Service: 08/11/22 (units unknown) (unknown) (unknown) (no date) (unknown) (unknown) Departure (units unknown) (unknown) (unknown) (no date) (unknown) (unknown) Diabetes mellitus, type I (units unknown) (unknown) (unknown) (no date) (unknown) (unknown) Discharge Plan (units unknown) (unknown) (unknown) (no date) (unknown) (unknown) Disposition: Discharged to home (units unknown) (unknown) (unknown) (no date) (unknown) (unknown) Dose Instruction: (units unknown) (unknown) (unknown) (no date) (unknown) (unknown) ED Course: This is a 27-year-old female presents emergency department after (units unknown) (unknown) (unknown) (no date) (unknown) (unknown) ED Orders (units unknown) (unknown) (unknown) (no date) (unknown) (unknown) ENT: Nose without bleeding, purulent drainage. Throat without erythema, (units unknown) (unknown) (unknown) (no date) (unknown) (unknown) ER Physician: Franc Hutchinson P.A-C (units unknown) (unknown) (unknown) (no date) (unknown) (unknown) EXTREMITIES: No dulce a or joint tenderness. (units unknown) (unknown) (unknown) (no date) (unknown) (unknown) EYES: Pupils equal round and reactive. Extraocular motions intact. No scleral (units unknown) (unknown) (unknown) (no date) (unknown) (unknown) Emergency Report (units unknown) (unknown) (unknown) (no date) (unknown) (unknown) Esterase (units unknown) (unknown) (unknown) (no date) (unknown) (unknown) Exam Narrative: (units unknown) (unknown) (unknown) (no date) (unknown) (unknown) Exam (units unknown) (unknown) (unknown) (no date) (unknown) (unknown) Family History (units unknown) (unknown) (unknown) (no date) (unknown) (unknown) Father Healthy adult (units unknown) (unknown) (unknown) (no date) (unknown) (unknown) GASTROINTESTINAL: Abdomen soft, mild epigastric tenderness to palpation, (units unknown) (unknown) (unknown) (no date) (unknown) (unknown) GASTROINTESTINAL: Reports nausea and vomiting,, abdominal pain, denies (units unknown) (unknown) (unknown) (no date) (unknown) (unknown) GENERAL: Denies chills, fatigue, malaise, fever, sweats. (units unknown) (unknown) (unknown) (no date) (unknown) (unknown) GENERAL: Well-developed patient, in mild distress. (units unknown) (unknown) (unknown) (no date) (unknown) (unknown) : Reports dysuria, denies, frequency, incontinence, hematuria, urinary (units unknown) (unknown) (unknown) (no date) (unknown) (unknown) Gastroparesis (units unknown) (unknown) (unknown) (no date) (unknown) (unknown) General (units unknown) (unknown) (unknown) (no date) (unknown) (unknown) HEAD: Atraumatic. Normocephalic. (units unknown) (unknown) (unknown) (no date) (unknown) (unknown) HEENT: Denies sinus pain, ear pain, sore throat, difficulty swallowing, (units unknown) (unknown) (unknown) (no date) (unknown) (unknown) HPI - Female Genitourinary (units unknown) (unknown) (unknown) (no date) (unknown) (unknown) HPI Narrative: (units unknown) (unknown) (unknown) (no date) (unknown) (unknown) History of Present Illness (units unknown) (unknown) (unknown) (no date) (unknown) (unknown) History of type 1 diabetes, cyclic vomiting syndrome, gastroparesis, DKA, (units unknown) (unknown) (unknown) (no date) (unknown) (unknown) Home Medications (units unknown) (unknown) (unknown) (no date) (unknown) (unknown) Delonte Trevino MD [Primary Care Provider] (units unknown) (unknown) (unknown) (no date) (unknown) (unknown) I hope you feel better soon. (units unknown) (unknown) (unknown) (no date) (unknown) (unknown) Initial Vital Signs (units unknown) (unknown) (unknown) (no date) (unknown) (unknown) Initial Vital Signs: (units unknown) (unknown) (unknown) (no date) (unknown) (unknown) Insulin dependent diabetes mellitus (units unknown) (unknown) (unknown) (no date) (unknown) (unknown) [address] [address] (units unknown) (unknown) (unknown) (no date) (unknown) (unknown) Lab Data (units unknown) (unknown) (unknown) (no date) (unknown) (unknown) Lab Results (units unknown) (unknown) (unknown) (no date) (unknown) (unknown) Labs: (units unknown) (unknown) (unknown) (no date) (unknown) (unknown) MDM - Female Genitourinary (units unknown) (unknown) (unknown) (no date) (unknown) (unknown) MDM Narrative (units unknown) (unknown) (unknown) (no date) (unknown) (unknown) MDM (units unknown) (unknown) (unknown) (no date) (unknown) (unknown) MUSCULOSKELETAL: denies weakness, joint pain, or bony pain (units unknown) (unknown) (unknown) (no date) (unknown) (unknown) Medical History (units unknown) (unknown) (unknown) (no date) (unknown) (unknown) Medical decision making narrative: (units unknown) (unknown) (unknown) (no date) (unknown) (unknown) Medication Instructions Recorded Confirmed (units unknown) (unknown) (unknown) (no date) (unknown) (unknown) Medication Instructions Recorded (units unknown) (unknown) (unknown) (no date) (unknown) (unknown) Migraine headache with aura (units unknown) (unknown) (unknown) (no date) (unknown) (unknown) Mode of arrival: Ambulatory (units unknown) (unknown) (unknown) (no date) (unknown) (unknown) Mother Hypertension (units unknown) (unknown) (unknown) (no date) (unknown) (unknown) Myopia (units unknown) (unknown) (unknown) (no date) (unknown) (unknown) NAUSEA OR VOMITING (units unknown) (unknown) (unknown) (no date) (unknown) (unknown) NECK: Trachea midline. Non tender (units unknown) (unknown) (unknown) (no date) (unknown) (unknown) NEURO: AOx3. (units unknown) (unknown) (unknown) (no date) (unknown) (unknown) NEUROLOGIC: Denies weakness, headache, numbness, change in speech, confusion, (units unknown) (unknown) (unknown) (no date) (unknown) (unknown) Narrative (units unknown) (unknown) (unknown) (no date) (unknown) (unknown) Narrative: (units unknown) (unknown) (unknown) (no date) (unknown) (unknown) No Action (units unknown) (unknown) (unknown) (no date) (unknown) (unknown) Ordered: (units unknown) (unknown) (unknown) (no date) (unknown) (unknown) Orders (units unknown) (unknown) (unknown) (no date) (unknown) (unknown) Oxygen Delivery Method Room Air (units unknown) (unknown) (unknown) (no date) (unknown) (unknown) PSYCHIATRIC: No concerning psychosocial issues. (units unknown) (unknown) (unknown) (no date) (unknown) (unknown) Pancreatitis (units unknown) (unknown) (unknown) (no date) (unknown) (unknown) Patient Comments: (units unknown) (unknown) (unknown) (no date) (unknown) (unknown) Patient Disposition: Home (units unknown) (unknown) (unknown) (no date) (unknown) (unknown) Patient History (units unknown) (unknown) (unknown) (no date) (unknown) (unknown) Patient was seen her e yesterday for a complex UTI. History of type 1 diabetes, (units unknown) (unknown) (unknown) (no date) (unknown) (unknown) Patient: Kaur Horton MR (units unknown) (unknown) (unknown) (no date) (unknown) (unknown) Point of Care Testing (units unknown) (unknown) (unknown) (no date) (unknown) (unknown) Test Results Negative (units unknown) (unknown) (unknown) (no date) (unknown) (unknown) Prescriptions: (units unknown) (unknown) (unknown) (no date) (unknown) (unknown) Previous Rx's (units unknown) (unknown) (unknown) (no date) (unknown) (unknown) Pulse Oximetry 100 99 (units unknown) (unknown) (unknown) (no date) (unknown) (unknown) Pulse Oximetry 99 08/11/22 13:46 (units unknown) (unknown) (unknown) (no date) (unknown) (unknown) Pulse Rate 108 H 08/11/22 13:46 (units unknown) (unknown) (unknown) (no date) (unknown) (unknown) Pulse Rate 111 H 108 H (units unknown) (unknown) (unknown) (no date) (unknown) (unknown) RESPIRATORY: Clear t o auscultation. Breath sounds equal bilaterally. No wheezes, (units unknown) (unknown) (unknown) (no date) (unknown) (unknown) RESPIRATORY: Denies dyspnea, cough, wheezing, hemoptysis, sputum. (units unknown) (unknown) (unknown) (no date) (unknown) (unknown) Referrals: (units unknown) (unknown) (unknown) (no date) (unknown) (unknown) Related Data (units unknown) (unknown) (unknown) (no date) (unknown) (unknown) Respiratory Rate 20 (units unknown) (unknown) (unknown) (no date) (unknown) (unknown) Review of Systems (units unknown) (unknown) (unknown) (no date) (unknown) (unknown) Rx Instructions: (units unknown) (unknown) (unknown) (no date) (unknown) (unknown) SKIN: Denies rash, skin lesions, or other (units unknown) (unknown) (unknown) (no date) (unknown) (unknown) SKIN: No rash or erythema of visible areas (units unknown) (unknown) (unknown) (no date) (unknown) (unknown) See Rx Instructions .ROUTE .COMPLEX Qty: 473 0RF (units unknown) (unknown) (unknown) (no date) (unknown) (unknown) See Rx Instructions .ROUTE .MEDSUPPLY Qty: 500 1RF (units unknown) (unknown) (unknown) (no date) (unknown) (unknown) See Rx Instructions PO .COMPLEX Qty: 60 0RF (units unknown) (unknown) (unknown) (no date) (unknown) (unknown) Seems like these hav e helped with the nausea and I recommend you continue taking (units unknown) (unknown) (unknown) (no date) (unknown) (unknown) Shared Decision Making: Discussed plan with the patient who is comfortable with (units unknown) (unknown) (unknown) (no date) (unknown) (unknown) Signed By: (units unknown) (unknown) (unknown) (no date) (unknown) (unknown) Social Considerations: None (units unknown) (unknown) (unknown) (no date) (unknown) (unknown) Source: patient (units unknown) (unknown) (unknown) (no date) (unknown) (unknown) Stand Alone Forms: Patient Portal/API (units unknown) (unknown) (unknown) (no date) (unknown) (unknown) Stated complaint: wa s here T-1/symptoms worsening (units unknown) (unknown) (unknown) (no date) (unknown) (unknown) Status post appendectomy (units unknown) (unknown) (unknown) (no date) (unknown) (unknown) Substance Use Type: marijuana (units unknown) (unknown) (unknown) (no date) (unknown) (unknown) Surgical History (units unknown) (unknown) (unknown) (no date) (unknown) (unknown) TAKE 10 MG (10ML) BY MOUTH EVERY 6 HOURS NEEDED FOR NAUSEA AND VOMITING (units unknown) (unknown) (unknown) (no date) (unknown) (unknown) TAKE 10 MG (10ML) BY MOUTH EVERY 6 HOURS NEEDED FOR NAUSEA AND VOMITING. (units unknown) (unknown) (unknown) (no date) (unknown) (unknown) Temperature 97.5 F L (units unknown) (unknown) (unknown) (no date) (unknown) (unknown) Thank you for coming to the [facility] Emergency Department today. Please (units unknown) (unknown) (unknown) (no date) (unknown) (unknown) This is a 27-year-ol d female presents emergency department due to an episode of (units unknown) (unknown) (unknown) (no date) (unknown) (unknown) Time Seen by Provider: 08/11/22 13:24 (units unknown) (unknown) (unknown) (no date) (unknown) (unknown) U-100 Insulin aspart) (units unknown) (unknown) (unknown) (no date) (unknown) (unknown) UNWRAP AND INSERT 1 SUPPOSITORY RECTALLY EVERY 4 TO 6 HOURS NEEDED FOR (units unknown) (unknown) (unknown) (no date) (unknown) (unknown) Ur Culture Indicated ? Specimen cultured (units unknown) (unknown) (unknown) (no date) (unknown) (unknown) Ur Squamous Epith Cells 5-10 /hpf H (0-5/HPF) (units unknown) (unknown) (unknown) (no date) (unknown) (unknown) Urinary tract infection, Vomiting (units unknown) (unknown) (unknown) (no date) (unknown) (unknown) Urine Bacteria Many (>30) H (None) (units unknown) (unknown) (unknown) (no date) (unknown) (unknown) Urine Culture Stat (units unknown) (unknown) (unknown) (no date) (unknown) (unknown) Urine Dip (units unknown) (unknown) (unknown) (no date) (unknown) (unknown) Urine Microscopic Stat (units unknown) (unknown) (unknown) (no date) (unknown) (unknown) Urine RBC 1-5/hpf (0-5/HPF) (units unknown) (unknown) (unknown) (no date) (unknown) (unknown) Urine Specific [place] 1.025 (units unknown) (unknown) (unknown) (no date) (unknown) (unknown) Urine WBC 5-10/hpf H (0-5/HPF) (units unknown) (unknown) (unknown) (no date) (unknown) (unknown) Vital Signs - 8 hr (units unknown) (unknown) (unknown) (no date) (unknown) (unknown) Vital Signs (units unknown) (unknown) (unknown) (no date) (unknown) (unknown) Vital signs: (units unknown) (unknown) (unknown) (no date) (unknown) (unknown) WITH MIGRAINE. (units unknown) (unknown) (unknown) (no date) (unknown) (unknown) Was advised to take her insulin 4 units for blood sugar of 332. Patient was (units unknown) (unknown) (unknown) (no date) (unknown) (unknown) alcohol intake frequency: holidays/special occasions only (units unknown) (unknown) (unknown) (no date) (unknown) (unknown) appendectomy, pancreatitis. Was seen yesterday for intractable vomiting with (units unknown) (unknown) (unknown) (no date) (unknown) (unknown) being seen yesterday , please see record review above,. She is reporting today (units unknown) (unknown) (unknown) (no date) (unknown) (unknown) blood glucose monitor. Was advised to take her insulin 4 units for blood sugar (units unknown) (unknown) (unknown) (no date) (unknown) (unknown) burning in her abdomen similar to previously. No new symptoms. (units unknown) (unknown) (unknown) (no date) (unknown) (unknown) cyclic vomiting syndrome, gastroparesis, DKA, appendectomy, pancreatitis. Was (units unknown) (unknown) (unknown) (no date) (unknown) (unknown) diarrhea, constipation, melena. (units unknown) (unknown) (unknown) (no date) (unknown) (unknown) dizziness. (units unknown) (unknown) (unknown) (no date) (unknown) (unknown) during an episode of vomiting. She states that her nausea med to help test (units unknown) (unknown) (unknown) (no date) (unknown) (unknown) for urine glucose, ketones, occult blood, nitrites. Patient has a personal (units unknown) (unknown) (unknown) (no date) (unknown) (unknown) gastroenteritis, UTI , sick vomiting (units unknown) (unknown) (unknown) (no date) (unknown) (unknown) growing staph lugdunensis. Patient was discharged with prescriptions for (units unknown) (unknown) (unknown) (no date) (unknown) (unknown) his the pharmacy was closed. IV prescribed the medications to a [facility] here (units unknown) (unknown) (unknown) (no date) (unknown) (unknown) icterus. No injectio n or drainage. 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 Patient's exam (units unknown) (unknown) (unknown) (no date) (unknown) (unknown) insulin aspart U-100 100 unit/mL 1 sliding scale dose SUBCUT 10/04/21 (units unknown) (unknown) (unknown) (no date) (unknown) (unknown) insulin aspart U-100 [Novolog U-100 Insulin aspart] 100 unit/mL solution (units unknown) (unknown) (unknown) (no date) (unknown) (unknown) insulin syringes (disposable) 1 mL #500 ea 08/04/20 (units unknown) (unknown) (unknown) (no date) (unknown) (unknown) ketones, occult blood, nitrites. Patient has a personal blood glucose monitor. (units unknown) (unknown) (unknown) (no date) (unknown) (unknown) ketorolac [From Toradol] Allergy Verified 08/10/22 14:43 (units unknown) (unknown) (unknown) (no date) (unknown) (unknown) medication as well a s her antibiotics. She stated that she would not picking tech (units unknown) (unknown) (unknown) (no date) (unknown) (unknown) metoclopramide HCl 5 mg/5 mL oral See Rx Instructions .Route 01/28/22 (units unknown) (unknown) (unknown) (no date) (unknown) (unknown) metoclopramide HCl 5 mg/5 mL solution (units unknown) (unknown) (unknown) (no date) (unknown) (unknown) mg-trimethoprim 160 mg tablet (units unknown) (unknown) (unknown) (no date) (unknown) (unknown) nausea. Patient was given ondansetron, diazepam, Dilaudid, normal saline, (units unknown) (unknown) (unknown) (no date) (unknown) (unknown) night but she would not take any this morning. I reinforced that she should (units unknown) (unknown) (unknown) (no date) (unknown) (unknown) nondistended. (units unknown) (unknown) (unknown) (no date) (unknown) (unknown) of 332. Patient was treated with ceftriaxone and Bactrim due to her most recent (units unknown) (unknown) (unknown) (no date) (unknown) (unknown) ondansetron, diazepam, Dilaudid, normal saline, thiamine, Rocephin, Reglan, (units unknown) (unknown) (unknown) (no date) (unknown) (unknown) pantoprazole 40 mg tablet,delayed 40 mg PO BID #30 tabs 02/07/22 (units unknown) (unknown) (unknown) (no date) (unknown) (unknown) pantoprazole 40 mg tablet,delayed release (DR/EC) (units unknown) (unknown) (unknown) (no date) (unknown) (unknown) pantoprazole, Bactrim. White count was 20. Lactate was 2.8. Repeat lab work (units unknown) (unknown) (unknown) (no date) (unknown) (unknown) picking tech her medications that she was prescribed yesterday for her nausea (units unknown) (unknown) (unknown) (no date) (unknown) (unknown) picking tech the nausea medications and antibiotics prescribed yesterday. I have (units unknown) (unknown) (unknown) (no date) (unknown) (unknown) prescribed to her yesterday. (units unknown) (unknown) (unknown) (no date) (unknown) (unknown) prescriptions for promethazine and Bactrim. (units unknown) (unknown) (unknown) (no date) (unknown) (unknown) promethazine 12.5 mg tablet 12.5 mg PO BID PRN sedation #14 08/10/22 (units unknown) (unknown) (unknown) (no date) (unknown) (unknown) promethazine 12.5 mg tablet (units unknown) (unknown) (unknown) (no date) (unknown) (unknown) promethazine 25 mg rectal 25 mg PA Q4-6H PRN Nausea And 01/27/22 02/07/22 (units unknown) (unknown) (unknown) (no date) (unknown) (unknown) promethazine [Promethegan] 25 mg suppository (units unknown) (unknown) (unknown) (no date) (unknown) (unknown) promethazine and Bactrim. (units unknown) (unknown) (unknown) (no date) (unknown) (unknown) rales, or rhonchi. (units unknown) (unknown) (unknown) (no date) (unknown) (unknown) release (units unknown) (unknown) (unknown) (no date) (unknown) (unknown) represcribed them to the [facility] here in [place] which should be open. (units unknown) (unknown) (unknown) (no date) (unknown) (unknown) retention. (units unknown) (unknown) (unknown) (no date) (unknown) (unknown) rizatriptan 10 mg tablet (Maxalt) See Rx Instructions PO .COMPLEX 01/29/22 (units unknown) (unknown) (unknown) (no date) (unknown) (unknown) rizatriptan [Maxalt] 10 mg tablet (units unknown) (unknown) (unknown) (no date) (unknown) (unknown) seen yesterday for intractable vomiting with nausea. Patient was given (units unknown) (unknown) (unknown) (no date) (unknown) (unknown) seizures, incoordination. (units unknown) (unknown) (unknown) (no date) (unknown) (unknown) she woke up this morning and had episode of vomiting. She also reports some (units unknown) (unknown) (unknown) (no date) (unknown) (unknown) solution .COMPLEX #473 mL (units unknown) (unknown) (unknown) (no date) (unknown) (unknown) states that the nausea medication she took last night helped with the nausea but (units unknown) (unknown) (unknown) (no date) (unknown) (unknown) subcutaneous solutio n (Novolog USEASDIRECTD #10 mL (units unknown) (unknown) (unknown) (no date) (unknown) (unknown) sulfamethoxazole 800 1 tab PO BID 10 days #20 tabs 08/10/22 (units unknown) (unknown) (unknown) (no date) (unknown) (unknown) sulfamethoxazole-tri m ethoprim [Bactrim DS] 800-160 mg tablet (units unknown) (unknown) (unknown) (no date) (unknown) (unknown) suppository (Promethegan) Vomiting (units unknown) (unknown) (unknown) (no date) (unknown) (unknown) tabs (units unknown) (unknown) (unknown) (no date) (unknown) (unknown) take 1 tab at onset of headache; if no relief may repeat 1 tab after at least (units unknown) (unknown) (unknown) (no date) (unknown) (unknown) the plan. (units unknown) (unknown) (unknown) (no date) (unknown) (unknown) them. (units unknown) (unknown) (unknown) (no date) (unknown) (unknown) thiamine, Rocephin, Reglan, pantoprazole, Bactrim. White count was 20. Lactate (units unknown) (unknown) (unknown) (no date) (unknown) (unknown) tobacco type: vaping (units unknown) (unknown) (unknown) (no date) (unknown) (unknown) tonsillar hypertroph y or exudate. Airway patent. (units unknown) (unknown) (unknown) (no date) (unknown) (unknown) treated with ceftriaxone and Bactrim due to her most recent urine culture (units unknown) (unknown) (unknown) (no date) (unknown) (unknown) urine culture growin g staph lugdunensis. Patient was discharged with (units unknown) (unknown) (unknown) (no date) (unknown) (unknown) vomiting earlier thi s morning. Patient states that she was seen yesterday (units unknown) (unknown) (unknown) (no date) (unknown) (unknown) was 15 WBC. Repeat lactate was 0.9. UA was positive for urine glucose, (units unknown) (unknown) (unknown) (no date) (unknown) (unknown) was 2.8. Repeat lab work was 15 WBC. Repeat lactate was 0.9. UA was positive (units unknown) (unknown) (unknown) (no date) (unknown) (unknown) was reassuring and recommended she complete the course of antibiotics that was (units unknown) (unknown) Result panel [id number] (unknown) (no date) (unknown) (unknown) (no value) (units unknown) (unknown) (unknown) (no date) (unknown) (unknown) #60 tabs (units unknown) (unknown) (unknown) (no date) (unknown) (unknown) #: [id number] (units unknown) (unknown) (unknown) (no date) (unknown) (unknown) (Bactrim DS) (units unknown) (unknown) (unknown) (no date) (unknown) (unknown) (DME) insulin syringes (disposable) 1 mL syringe (units unknown) (unknown) (unknown) (no date) (unknown) (unknown) (please see below fo r record review) but did not picking tech her medications. She (units unknown) (unknown) (unknown) (no date) (unknown) (unknown) * Clinical Decision Rules/Scores evaluated: None (units unknown) (unknown) (unknown) (no date) (unknown) (unknown) * Independent discussions with: None (units unknown) (unknown) (unknown) (no date) (unknown) (unknown) * My imgaing interpretation: None obtained (units unknown) (unknown) (unknown) (no date) (unknown) (unknown) * My lab interpretation: None obtained (units unknown) (unknown) (unknown) (no date) (unknown) (unknown) * Prior records reviewed: Patient was seen here yesterday for a complex UTI. (units unknown) (unknown) (unknown) (no date) (unknown) (unknown) * differential diagnosis includes but not limited to pancreatitis, (units unknown) (unknown) (unknown) (no date) (unknown) (unknown) 08/11/22 14:25 (units unknown) (unknown) (unknown) (no date) (unknown) (unknown) 08/11/22 Range/Units (units unknown) (unknown) (unknown) (no date) (unknown) (unknown) 08/11/22 (units unknown) (unknown) (unknown) (no date) (unknown) (unknown) 1 sliding scale dose SUBCUT USEASDIRECTD Qty: 10 3RF (units unknown) (unknown) (unknown) (no date) (unknown) (unknown) 1 tab PO BID 10 Days Qty: 20 0RF (units unknown) (unknown) (unknown) (no date) (unknown) (unknown) 1 tab PO Q12H 10 Day s Qty: 20 0RF (units unknown) (unknown) (unknown) (no date) (unknown) (unknown) 12 point review of systems is negative except for those stated above (units unknown) (unknown) (unknown) (no date) (unknown) (unknown) 12.5 mg PO BID PRN (Reason: nausea and vomiting) Qty: 14 0RF (units unknown) (unknown) (unknown) (no date) (unknown) (unknown) 12.5 mg PO BID PRN (Reason: sedation) Qty: 14 0RF (units unknown) (unknown) (unknown) (no date) (unknown) (unknown) 13:46 08/11/22 (units unknown) (unknown) (unknown) (no date) (unknown) (unknown) 13:46 (units unknown) (unknown) (unknown) (no date) (unknown) (unknown) 13:53 08/11/22 (units unknown) (unknown) (unknown) (no date) (unknown) (unknown) 14:25 (units unknown) (unknown) (unknown) (no date) (unknown) (unknown) 2 hrs; max = 3 tabs/24 hr PO (units unknown) (unknown) (unknown) (no date) (unknown) (unknown) 25 mg PA Q4-6H PRN (Reason: Nausea And Vomiting) (units unknown) (unknown) (unknown) (no date) (unknown) (unknown) 40 mg PO BID Qty: 30 0RF (units unknown) (unknown) (unknown) (no date) (unknown) (unknown) Activity Restrictions/Addition al Instructions: (units unknown) (unknown) (unknown) (no date) (unknown) (unknown) Age/Sex: 27 / F (units unknown) (unknown) (unknown) (no date) (unknown) (unknown) Allergies (units unknown) (unknown) (unknown) (no date) (unknown) (unknown) Allergy/AdvReac Type Severity Reaction Status Date / Time (units unknown) (unknown) (unknown) (no date) (unknown) (unknown) Anemia (units unknown) (unknown) (unknown) (no date) (unknown) (unknown) As directed for use with insulin injections (units unknown) (unknown) (unknown) (no date) (unknown) (unknown) BACK: Nontender without deformity or crepitance. No flank tenderness. (units unknown) (unknown) (unknown) (no date) (unknown) (unknown) Bedside Urine Bilirubin - Negative (units unknown) (unknown) (unknown) (no date) (unknown) (unknown) Bedside Urine Glucos e Negative (units unknown) (unknown) (unknown) (no date) (unknown) (unknown) Bedside Urine Ketone +++ 80 (units unknown) (unknown) (unknown) (no date) (unknown) (unknown) Bedside Urine Leukocytes - Negative (units unknown) (unknown) (unknown) (no date) (unknown) (unknown) Bedside Urine Nitrit e - Negative (units unknown) (unknown) (unknown) (no date) (unknown) (unknown) Bedside Urine Occult Blood +/ (units unknown) (unknown) (unknown) (no date) (unknown) (unknown) Bedside Urine Protei n + 30 (units unknown) (unknown) (unknown) (no date) (unknown) (unknown) Bedside Urine Urobilinogen - Negative (units unknown) (unknown) (unknown) (no date) (unknown) (unknown) Bedside Urine pH 6.0 (units unknown) (unknown) (unknown) (no date) (unknown) (unknown) Blood Pressure 123/7 7 08/11/22 13:46 (units unknown) (unknown) (unknown) (no date) (unknown) (unknown) Blood Pressure 123/7 7 123/77 (units unknown) (unknown) (unknown) (no date) (unknown) (unknown) CARDIOVASCULAR: Denies chest pain, palpitations, orthopnea, edema, (units unknown) (unknown) (unknown) (no date) (unknown) (unknown) CARDIOVASCULAR: Regular rate and rhythm without murmurs, gallops, or rubs. (units unknown) (unknown) (unknown) (no date) (unknown) (unknown) Chief complaint: Urogenital-Female (units unknown) (unknown) (unknown) (no date) (unknown) (unknown) Clinical Impression: (units unknown) (unknown) (unknown) (no date) (unknown) (unknown) Course (units unknown) (unknown) (unknown) (no date) (unknown) (unknown) Cyclic vomiting syndrome (units unknown) (unknown) (unknown) (no date) (unknown) (unknown) DKA (diabetic ketoacidoses) (units unknown) (unknown) (unknown) (no date) (unknown) (unknown) : 1995 Acct:[id number] (units unknown) (unknown) (unknown) (no date) (unknown) (unknown) Date of Service: 08/11/22 (units unknown) (unknown) (unknown) (no date) (unknown) (unknown) Departure (units unknown) (unknown) (unknown) (no date) (unknown) (unknown) Diabetes mellitus, type I (units unknown) (unknown) (unknown) (no date) (unknown) (unknown) Discharge Plan (units unknown) (unknown) (unknown) (no date) (unknown) (unknown) Disposition: Discharged to home (units unknown) (unknown) (unknown) (no date) (unknown) (unknown) Dose Instruction: (units unknown) (unknown) (unknown) (no date) (unknown) (unknown) ED Course: This is a 27-year-old female presents emergency department after (units unknown) (unknown) (unknown) (no date) (unknown) (unknown) ED Orders (units unknown) (unknown) (unknown) (no date) (unknown) (unknown) ENT: Nose without bleeding, purulent drainage. Throat without erythema, (units unknown) (unknown) (unknown) (no date) (unknown) (unknown) ER Physician: Franc Hutchinson P.A-C (units unknown) (unknown) (unknown) (no date) (unknown) (unknown) EXTREMITIES: No dulce a or joint tenderness. (units unknown) (unknown) (unknown) (no date) (unknown) (unknown) EYES: Pupils equal round and reactive. Extraocular motions intact. No scleral (units unknown) (unknown) (unknown) (no date) (unknown) (unknown) Emergency Report (units unknown) (unknown) (unknown) (no date) (unknown) (unknown) Esterase (units unknown) (unknown) (unknown) (no date) (unknown) (unknown) Exam Narrative: (units unknown) (unknown) (unknown) (no date) (unknown) (unknown) Exam (units unknown) (unknown) (unknown) (no date) (unknown) (unknown) Family History (units unknown) (unknown) (unknown) (no date) (unknown) (unknown) Father Healthy adult (units unknown) (unknown) (unknown) (no date) (unknown) (unknown) GASTROINTESTINAL: Abdomen soft, mild epigastric tenderness to palpation, (units unknown) (unknown) (unknown) (no date) (unknown) (unknown) GASTROINTESTINAL: Reports nausea and vomiting,, abdominal pain, denies (units unknown) (unknown) (unknown) (no date) (unknown) (unknown) GENERAL: Denies chills, fatigue, malaise, fever, sweats. (units unknown) (unknown) (unknown) (no date) (unknown) (unknown) GENERAL: Well-developed patient, in mild distress. (units unknown) (unknown) (unknown) (no date) (unknown) (unknown) : Reports dysuria, denies, frequency, incontinence, hematuria, urinary (units unknown) (unknown) (unknown) (no date) (unknown) (unknown) Gastroparesis (units unknown) (unknown) (unknown) (no date) (unknown) (unknown) General (units unknown) (unknown) (unknown) (no date) (unknown) (unknown) HEAD: Atraumatic. Normocephalic. (units unknown) (unknown) (unknown) (no date) (unknown) (unknown) HEENT: Denies sinus pain, ear pain, sore throat, difficulty swallowing, (units unknown) (unknown) (unknown) (no date) (unknown) (unknown) HPI - Female Genitourinary (units unknown) (unknown) (unknown) (no date) (unknown) (unknown) HPI Narrative: (units unknown) (unknown) (unknown) (no date) (unknown) (unknown) History of Present Illness (units unknown) (unknown) (unknown) (no date) (unknown) (unknown) History of type 1 diabetes, cyclic vomiting syndrome, gastroparesis, DKA, (units unknown) (unknown) (unknown) (no date) (unknown) (unknown) Home Medications (units unknown) (unknown) (unknown) (no date) (unknown) (unknown) Delonte Trevino MD [Primary Care Provider] (units unknown) (unknown) (unknown) (no date) (unknown) (unknown) I hope you feel better soon. (units unknown) (unknown) (unknown) (no date) (unknown) (unknown) Initial Vital Signs (units unknown) (unknown) (unknown) (no date) (unknown) (unknown) Initial Vital Signs: (units unknown) (unknown) (unknown) (no date) (unknown) (unknown) Insulin dependent diabetes mellitus (units unknown) (unknown) (unknown) (no date) (unknown) (unknown) [address] [address] (units unknown) (unknown) (unknown) (no date) (unknown) (unknown) Lab Data (units unknown) (unknown) (unknown) (no date) (unknown) (unknown) Lab Results (units unknown) (unknown) (unknown) (no date) (unknown) (unknown) Labs: (units unknown) (unknown) (unknown) (no date) (unknown) (unknown) MDM - Female Genitourinary (units unknown) (unknown) (unknown) (no date) (unknown) (unknown) MDM Narrative (units unknown) (unknown) (unknown) (no date) (unknown) (unknown) MDM (units unknown) (unknown) (unknown) (no date) (unknown) (unknown) MUSCULOSKELETAL: denies weakness, joint pain, or bony pain (units unknown) (unknown) (unknown) (no date) (unknown) (unknown) Medical History (units unknown) (unknown) (unknown) (no date) (unknown) (unknown) Medical decision making narrative: (units unknown) (unknown) (unknown) (no date) (unknown) (unknown) Medication Instructions Recorded Confirmed (units unknown) (unknown) (unknown) (no date) (unknown) (unknown) Medication Instructions Recorded (units unknown) (unknown) (unknown) (no date) (unknown) (unknown) Migraine headache with aura (units unknown) (unknown) (unknown) (no date) (unknown) (unknown) Mode of arrival: Ambulatory (units unknown) (unknown) (unknown) (no date) (unknown) (unknown) Mother Hypertension (units unknown) (unknown) (unknown) (no date) (unknown) (unknown) Myopia (units unknown) (unknown) (unknown) (no date) (unknown) (unknown) NAUSEA OR VOMITING (units unknown) (unknown) (unknown) (no date) (unknown) (unknown) NECK: Trachea midline. Non tender (units unknown) (unknown) (unknown) (no date) (unknown) (unknown) NEURO: AOx3. (units unknown) (unknown) (unknown) (no date) (unknown) (unknown) NEUROLOGIC: Denies weakness, headache, numbness, change in speech, confusion, (units unknown) (unknown) (unknown) (no date) (unknown) (unknown) Narrative (units unknown) (unknown) (unknown) (no date) (unknown) (unknown) Narrative: (units unknown) (unknown) (unknown) (no date) (unknown) (unknown) New (units unknown) (unknown) (unknown) (no date) (unknown) (unknown) No Action (units unknown) (unknown) (unknown) (no date) (unknown) (unknown) Ordered: (units unknown) (unknown) (unknown) (no date) (unknown) (unknown) Orders (units unknown) (unknown) (unknown) (no date) (unknown) (unknown) Oxygen Delivery Method Room Air (units unknown) (unknown) (unknown) (no date) (unknown) (unknown) PSYCHIATRIC: No concerning psychosocial issues. (units unknown) (unknown) (unknown) (no date) (unknown) (unknown) Pancreatitis (units unknown) (unknown) (unknown) (no date) (unknown) (unknown) Patient Comments: (units unknown) (unknown) (unknown) (no date) (unknown) (unknown) Patient Disposition: Home (units unknown) (unknown) (unknown) (no date) (unknown) (unknown) Patient History (units unknown) (unknown) (unknown) (no date) (unknown) (unknown) Patient was seen her e yesterday for a complex UTI. History of type 1 diabetes, (units unknown) (unknown) (unknown) (no date) (unknown) (unknown) Patient: Kaur Horton MR (units unknown) (unknown) (unknown) (no date) (unknown) (unknown) Point of Care Testing (units unknown) (unknown) (unknown) (no date) (unknown) (unknown) Test Results Negative (units unknown) (unknown) (unknown) (no date) (unknown) (unknown) Prescriptions: (units unknown) (unknown) (unknown) (no date) (unknown) (unknown) Previous Rx's (units unknown) (unknown) (unknown) (no date) (unknown) (unknown) Pulse Oximetry 100 99 (units unknown) (unknown) (unknown) (no date) (unknown) (unknown) Pulse Oximetry 99 08/11/22 13:46 (units unknown) (unknown) (unknown) (no date) (unknown) (unknown) Pulse Rate 108 H 08/11/22 13:46 (units unknown) (unknown) (unknown) (no date) (unknown) (unknown) Pulse Rate 111 H 108 H (units unknown) (unknown) (unknown) (no date) (unknown) (unknown) RESPIRATORY: Clear t o auscultation. Breath sounds equal bilaterally. No wheezes, (units unknown) (unknown) (unknown) (no date) (unknown) (unknown) RESPIRATORY: Denies dyspnea, cough, wheezing, hemoptysis, sputum. (units unknown) (unknown) (unknown) (no date) (unknown) (unknown) Referrals: (units unknown) (unknown) (unknown) (no date) (unknown) (unknown) Related Data (units unknown) (unknown) (unknown) (no date) (unknown) (unknown) Respiratory Rate 20 (units unknown) (unknown) (unknown) (no date) (unknown) (unknown) Review of Systems (units unknown) (unknown) (unknown) (no date) (unknown) (unknown) Rx Instructions: (units unknown) (unknown) (unknown) (no date) (unknown) (unknown) SKIN: Denies rash, skin lesions, or other (units unknown) (unknown) (unknown) (no date) (unknown) (unknown) SKIN: No rash or erythema of visible areas (units unknown) (unknown) (unknown) (no date) (unknown) (unknown) See Rx Instructions .ROUTE .COMPLEX Qty: 473 0RF (units unknown) (unknown) (unknown) (no date) (unknown) (unknown) See Rx Instructions .ROUTE .MEDSUPPLY Qty: 500 1RF (units unknown) (unknown) (unknown) (no date) (unknown) (unknown) See Rx Instructions PO .COMPLEX Qty: 60 0RF (units unknown) (unknown) (unknown) (no date) (unknown) (unknown) Seems like these hav e helped with the nausea and I recommend you continue taking (units unknown) (unknown) (unknown) (no date) (unknown) (unknown) Shared Decision Making: Discussed plan with the patient who is comfortable with (units unknown) (unknown) (unknown) (no date) (unknown) (unknown) Signed By: (units unknown) (unknown) (unknown) (no date) (unknown) (unknown) Social Considerations: None (units unknown) (unknown) (unknown) (no date) (unknown) (unknown) Source: patient (units unknown) (unknown) (unknown) (no date) (unknown) (unknown) Stand Alone Forms: Patient Portal/API (units unknown) (unknown) (unknown) (no date) (unknown) (unknown) Stated complaint: wa s here T-1/symptoms worsening (units unknown) (unknown) (unknown) (no date) (unknown) (unknown) Status post appendectomy (units unknown) (unknown) (unknown) (no date) (unknown) (unknown) Substance Use Type: marijuana (units unknown) (unknown) (unknown) (no date) (unknown) (unknown) Surgical History (units unknown) (unknown) (unknown) (no date) (unknown) (unknown) TAKE 10 MG (10ML) BY MOUTH EVERY 6 HOURS NEEDED FOR NAUSEA AND VOMITING (units unknown) (unknown) (unknown) (no date) (unknown) (unknown) TAKE 10 MG (10ML) BY MOUTH EVERY 6 HOURS NEEDED FOR NAUSEA AND VOMITING. (units unknown) (unknown) (unknown) (no date) (unknown) (unknown) Temperature 97.5 F L (units unknown) (unknown) (unknown) (no date) (unknown) (unknown) Thank you for coming to the [facility] Emergency [facility] today. Please (units unknown) (unknown) (unknown) (no date) (unknown) (unknown) This is a 27-year-ol d female presents emergency department due to an episode of (units unknown) (unknown) (unknown) (no date) (unknown) (unknown) Time Seen by Provider: 08/11/22 13:24 (units unknown) (unknown) (unknown) (no date) (unknown) (unknown) U-100 Insulin aspart) (units unknown) (unknown) (unknown) (no date) (unknown) (unknown) UNWRAP AND INSERT 1 SUPPOSITORY RECTALLY EVERY 4 TO 6 HOURS NEEDED FOR (units unknown) (unknown) (unknown) (no date) (unknown) (unknown) Ur Culture Indicated ? Specimen cultured (units unknown) (unknown) (unknown) (no date) (unknown) (unknown) Ur Squamous Epith Cells 5-10 /hpf H (0-5/HPF) (units unknown) (unknown) (unknown) (no date) (unknown) (unknown) Urinary tract infection, Vomiting (units unknown) (unknown) (unknown) (no date) (unknown) (unknown) Urine Bacteria Many (>30) H (None) (units unknown) (unknown) (unknown) (no date) (unknown) (unknown) Urine Culture Stat (units unknown) (unknown) (unknown) (no date) (unknown) (unknown) Urine Dip (units unknown) (unknown) (unknown) (no date) (unknown) (unknown) Urine Microscopic Stat (units unknown) (unknown) (unknown) (no date) (unknown) (unknown) Urine RBC 1-5/hpf (0-5/HPF) (units unknown) (unknown) (unknown) (no date) (unknown) (unknown) Urine Specific [place] 1.025 (units unknown) (unknown) (unknown) (no date) (unknown) (unknown) Urine WBC 5-10/hpf H (0-5/HPF) (units unknown) (unknown) (unknown) (no date) (unknown) (unknown) Vital Signs - 8 hr (units unknown) (unknown) (unknown) (no date) (unknown) (unknown) Vital Signs (units unknown) (unknown) (unknown) (no date) (unknown) (unknown) Vital signs: (units unknown) (unknown) (unknown) (no date) (unknown) (unknown) WITH MIGRAINE. (units unknown) (unknown) (unknown) (no date) (unknown) (unknown) Was advised to take her insulin 4 units for blood sugar of 332. Patient was (units unknown) (unknown) (unknown) (no date) (unknown) (unknown) alcohol intake frequency: holidays/special occasions only (units unknown) (unknown) (unknown) (no date) (unknown) (unknown) appendectomy, pancreatitis. Was seen yesterday for intractable vomiting with (units unknown) (unknown) (unknown) (no date) (unknown) (unknown) being seen yesterday , please see record review above,. She is reporting today (units unknown) (unknown) (unknown) (no date) (unknown) (unknown) blood glucose monitor. Was advised to take her insulin 4 units for blood sugar (units unknown) (unknown) (unknown) (no date) (unknown) (unknown) burning in her abdomen similar to previously. No new symptoms. (units unknown) (unknown) (unknown) (no date) (unknown) (unknown) cyclic vomiting syndrome, gastroparesis, DKA, appendectomy, pancreatitis. Was (units unknown) (unknown) (unknown) (no date) (unknown) (unknown) diarrhea, constipation, melena. (units unknown) (unknown) (unknown) (no date) (unknown) (unknown) dizziness. (units unknown) (unknown) (unknown) (no date) (unknown) (unknown) during an episode of vomiting. She states that her nausea med to help test (units unknown) (unknown) (unknown) (no date) (unknown) (unknown) for urine glucose, ketones, occult blood, nitrites. Patient has a personal (units unknown) (unknown) (unknown) (no date) (unknown) (unknown) gastroenteritis, UTI , sick vomiting (units unknown) (unknown) (unknown) (no date) (unknown) (unknown) growing staph lugdunensis. Patient was discharged with prescriptions for (units unknown) (unknown) (unknown) (no date) (unknown) (unknown) his the pharmacy was closed. IV prescribed the medications to a [facility] here (units unknown) (unknown) (unknown) (no date) (unknown) (unknown) icterus. No injectio n or drainage. 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 Patient's exam (units unknown) (unknown) (unknown) (no date) (unknown) (unknown) insulin aspart U-100 100 unit/mL 1 sliding scale dose SUBCUT 10/04/21 (units unknown) (unknown) (unknown) (no date) (unknown) (unknown) insulin aspart U-100 [Novolog U-100 Insulin aspart] 100 unit/mL solution (units unknown) (unknown) (unknown) (no date) (unknown) (unknown) insulin syringes (disposable) 1 mL #500 ea 08/04/20 (units unknown) (unknown) (unknown) (no date) (unknown) (unknown) ketones, occult blood, nitrites. Patient has a personal blood glucose monitor. (units unknown) (unknown) (unknown) (no date) (unknown) (unknown) ketorolac [From Toradol] Allergy Verified 08/10/22 14:43 (units unknown) (unknown) (unknown) (no date) (unknown) (unknown) medication as well a s her antibiotics. She stated that she would not picking tech (units unknown) (unknown) (unknown) (no date) (unknown) (unknown) metoclopramide HCl 5 mg/5 mL oral See Rx Instructions .Route 01/28/22 (units unknown) (unknown) (unknown) (no date) (unknown) (unknown) metoclopramide HCl 5 mg/5 mL solution (units unknown) (unknown) (unknown) (no date) (unknown) (unknown) mg-trimethoprim 160 mg tablet (units unknown) (unknown) (unknown) (no date) (unknown) (unknown) nausea. Patient was given ondansetron, diazepam, Dilaudid, normal saline, (units unknown) (unknown) (unknown) (no date) (unknown) (unknown) night but she would not take any this morning. I reinforced that she should (units unknown) (unknown) (unknown) (no date) (unknown) (unknown) nondistended. (units unknown) (unknown) (unknown) (no date) (unknown) (unknown) of 332. Patient was treated with ceftriaxone and Bactrim due to her most recent (units unknown) (unknown) (unknown) (no date) (unknown) (unknown) ondansetron, diazepam, Dilaudid, normal saline, thiamine, Rocephin, Reglan, (units unknown) (unknown) (unknown) (no date) (unknown) (unknown) pantoprazole 40 mg tablet,delayed 40 mg PO BID #30 tabs 02/07/22 (units unknown) (unknown) (unknown) (no date) (unknown) (unknown) pantoprazole 40 mg tablet,delayed release (DR/EC) (units unknown) (unknown) (unknown) (no date) (unknown) (unknown) pantoprazole, Bactrim. White count was 20. Lactate was 2.8. Repeat lab work (units unknown) (unknown) (unknown) (no date) (unknown) (unknown) picking tech her medications that she was prescribed yesterday for her nausea (units unknown) (unknown) (unknown) (no date) (unknown) (unknown) picking tech the nausea medications and antibiotics prescribed yesterday. I have (units unknown) (unknown) (unknown) (no date) (unknown) (unknown) prescribed to her yesterday. (units unknown) (unknown) (unknown) (no date) (unknown) (unknown) prescriptions for promethazine and Bactrim. (units unknown) (unknown) (unknown) (no date) (unknown) (unknown) promethazine 12.5 mg tablet 12.5 mg PO BID PRN nausea and 08/11/22 (units unknown) (unknown) (unknown) (no date) (unknown) (unknown) promethazine 12.5 mg tablet 12.5 mg PO BID PRN sedation #14 08/10/22 (units unknown) (unknown) (unknown) (no date) (unknown) (unknown) promethazine 12.5 mg tablet (units unknown) (unknown) (unknown) (no date) (unknown) (unknown) promethazine 25 mg rectal 25 mg PA Q4-6H PRN Nausea And 01/27/22 02/07/22 (units unknown) (unknown) (unknown) (no date) (unknown) (unknown) promethazine [Promethegan] 25 mg suppository (units unknown) (unknown) (unknown) (no date) (unknown) (unknown) promethazine and Bactrim. (units unknown) (unknown) (unknown) (no date) (unknown) (unknown) rales, or rhonchi. (units unknown) (unknown) (unknown) (no date) (unknown) (unknown) release (units unknown) (unknown) (unknown) (no date) (unknown) (unknown) represcribed them to the [facility]'s here in [place] which should be open. (units unknown) (unknown) (unknown) (no date) (unknown) (unknown) retention. (units unknown) (unknown) (unknown) (no date) (unknown) (unknown) rizatriptan 10 mg tablet (Maxalt) See Rx Instructions PO .COMPLEX 01/29/22 (units unknown) (unknown) (unknown) (no date) (unknown) (unknown) rizatriptan [Maxalt] 10 mg tablet (units unknown) (unknown) (unknown) (no date) (unknown) (unknown) seen yesterday for intractable vomiting with nausea. Patient was given (units unknown) (unknown) (unknown) (no date) (unknown) (unknown) seizures, incoordination. (units unknown) (unknown) (unknown) (no date) (unknown) (unknown) she woke up this morning and had episode of vomiting. She also reports some (units unknown) (unknown) (unknown) (no date) (unknown) (unknown) solution .COMPLEX #473 mL (units unknown) (unknown) (unknown) (no date) (unknown) (unknown) states that the nausea medication she took last night helped with the nausea but (units unknown) (unknown) (unknown) (no date) (unknown) (unknown) subcutaneous solutio n (Novolog USEASDIRECTD #10 mL (units unknown) (unknown) (unknown) (no date) (unknown) (unknown) sulfamethoxazole 800 1 tab PO BID 10 days #20 tabs 08/10/22 (units unknown) (unknown) (unknown) (no date) (unknown) (unknown) sulfamethoxazole 800 1 tab PO Q12H 10 days #20 tabs 08/11/22 (units unknown) (unknown) (unknown) (no date) (unknown) (unknown) sulfamethoxazole-tri m ethoprim [Bactrim DS] 800-160 mg tablet (units unknown) (unknown) (unknown) (no date) (unknown) (unknown) suppository (Promethegan) Vomiting (units unknown) (unknown) (unknown) (no date) (unknown) (unknown) tabs (units unknown) (unknown) (unknown) (no date) (unknown) (unknown) take 1 tab at onset of headache; if no relief may repeat 1 tab after at least (units unknown) (unknown) (unknown) (no date) (unknown) (unknown) the plan. (units unknown) (unknown) (unknown) (no date) (unknown) (unknown) them. (units unknown) (unknown) (unknown) (no date) (unknown) (unknown) thiamine, Rocephin, Reglan, pantoprazole, Bactrim. White count was 20. Lactate (units unknown) (unknown) (unknown) (no date) (unknown) (unknown) tobacco type: vaping (units unknown) (unknown) (unknown) (no date) (unknown) (unknown) tonsillar hypertroph y or exudate. Airway patent. (units unknown) (unknown) (unknown) (no date) (unknown) (unknown) treated with ceftriaxone and Bactrim due to her most recent urine culture (units unknown) (unknown) (unknown) (no date) (unknown) (unknown) urine culture growin g staph lugdunensis. Patient was discharged with (units unknown) (unknown) (unknown) (no date) (unknown) (unknown) vomiting #14 tabs (units unknown) (unknown) (unknown) (no date) (unknown) (unknown) vomiting earlier thi s morning. Patient states that she was seen yesterday (units unknown) (unknown) (unknown) (no date) (unknown) (unknown) was 15 WBC. Repeat lactate was 0.9. UA was positive for urine glucose, (units unknown) (unknown) (unknown) (no date) (unknown) (unknown) was 2.8. Repeat lab work was 15 WBC. Repeat lactate was 0.9. UA was positive (units unknown) (unknown) (unknown) (no date) (unknown) (unknown) was reassuring and recommended she complete the course of antibiotics that was (units unknown) (unknown) Result panel [id number] (unknown) (no date) (unknown) (unknown) (no value) (units unknown) (unknown) (unknown) (no date) (unknown) (unknown) NO GROWTH AFTER 24 HOURS (units unknown) (unknown) (unknown) (no date) (unknown) (unknown) NO GROWTH AFTER 24 HOURS (units unknown) (unknown) Result panel [id number] (unknown) (no date) (unknown) (unknown) (no value) (units unknown) (unknown) (unknown) (no date) (unknown) (unknown) #60 tabs (units unknown) (unknown) (unknown) (no date) (unknown) (unknown) #: [id number] (units unknown) (unknown) (unknown) (no date) (unknown) (unknown) <Electronically signed by Franc Hutchinson> (units unknown) (unknown) (unknown) (no date) (unknown) (unknown) (Bactrim DS) (units unknown) (unknown) (unknown) (no date) (unknown) (unknown) (DME) insulin syringes (disposable) 1 mL syringe (units unknown) (unknown) (unknown) (no date) (unknown) (unknown) (please see below fo r record review) but did not picking tech her medications. She (units unknown) (unknown) (unknown) (no date) (unknown) (unknown) * Clinical Decision Rules/Scores evaluated: None (units unknown) (unknown) (unknown) (no date) (unknown) (unknown) * Independent discussions with: None (units unknown) (unknown) (unknown) (no date) (unknown) (unknown) * My imgaing interpretation: None obtained (units unknown) (unknown) (unknown) (no date) (unknown) (unknown) * My lab interpretation: None obtained (units unknown) (unknown) (unknown) (no date) (unknown) (unknown) * Prior records reviewed: Patient was seen here yesterday for a complex UTI. (units unknown) (unknown) (unknown) (no date) (unknown) (unknown) * differential diagnosis includes but not limited to pancreatitis, (units unknown) (unknown) (unknown) (no date) (unknown) (unknown) 08/11/22 14:25 (units unknown) (unknown) (unknown) (no date) (unknown) (unknown) 08/11/22 1823 (units unknown) (unknown) (unknown) (no date) (unknown) (unknown) 08/11/22 Range/Units (units unknown) (unknown) (unknown) (no date) (unknown) (unknown) 08/11/22 (units unknown) (unknown) (unknown) (no date) (unknown) (unknown) 1 sliding scale dose SUBCUT USEASDIRECTD Qty: 10 3RF (units unknown) (unknown) (unknown) (no date) (unknown) (unknown) 1 tab PO BID 10 Days Qty: 20 0RF (units unknown) (unknown) (unknown) (no date) (unknown) (unknown) 1 tab PO Q12H 10 Day s Qty: 20 0RF (units unknown) (unknown) (unknown) (no date) (unknown) (unknown) 12 point review of systems is negative except for those stated above (units unknown) (unknown) (unknown) (no date) (unknown) (unknown) 12.5 mg PO BID PRN (Reason: nausea and vomiting) Qty: 14 0RF (units unknown) (unknown) (unknown) (no date) (unknown) (unknown) 12.5 mg PO BID PRN (Reason: sedation) Qty: 14 0RF (units unknown) (unknown) (unknown) (no date) (unknown) (unknown) 13:46 08/11/22 (units unknown) (unknown) (unknown) (no date) (unknown) (unknown) 13:46 (units unknown) (unknown) (unknown) (no date) (unknown) (unknown) 13:53 08/11/22 (units unknown) (unknown) (unknown) (no date) (unknown) (unknown) 14:25 (units unknown) (unknown) (unknown) (no date) (unknown) (unknown) 15:26 (units unknown) (unknown) (unknown) (no date) (unknown) (unknown) 2 hrs; max = 3 tabs/24 hr PO (units unknown) (unknown) (unknown) (no date) (unknown) (unknown) 25 mg PA Q4-6H PRN (Reason: Nausea And Vomiting) (units unknown) (unknown) (unknown) (no date) (unknown) (unknown) 40 mg PO BID Qty: 30 0RF (units unknown) (unknown) (unknown) (no date) (unknown) (unknown) Activity Restrictions/Addition al Instructions: (units unknown) (unknown) (unknown) (no date) (unknown) (unknown) Age/Sex: 27 / F (units unknown) (unknown) (unknown) (no date) (unknown) (unknown) Allergies (units unknown) (unknown) (unknown) (no date) (unknown) (unknown) Allergy/AdvReac Type Severity Reaction Status Date / Time (units unknown) (unknown) (unknown) (no date) (unknown) (unknown) Anemia (units unknown) (unknown) (unknown) (no date) (unknown) (unknown) As directed for use with insulin injections (units unknown) (unknown) (unknown) (no date) (unknown) (unknown) BACK: Nontender without deformity or crepitance. No flank tenderness. (units unknown) (unknown) (unknown) (no date) (unknown) (unknown) Bedside Urine Bilirubin - Negative (units unknown) (unknown) (unknown) (no date) (unknown) (unknown) Bedside Urine Glucos e Negative (units unknown) (unknown) (unknown) (no date) (unknown) (unknown) Bedside Urine Ketone +++ 80 (units unknown) (unknown) (unknown) (no date) (unknown) (unknown) Bedside Urine Leukocytes - Negative (units unknown) (unknown) (unknown) (no date) (unknown) (unknown) Bedside Urine Nitrit e - Negative (units unknown) (unknown) (unknown) (no date) (unknown) (unknown) Bedside Urine Occult Blood +/ (units unknown) (unknown) (unknown) (no date) (unknown) (unknown) Bedside Urine Protei n + 30 (units unknown) (unknown) (unknown) (no date) (unknown) (unknown) Bedside Urine Urobilinogen - Negative (units unknown) (unknown) (unknown) (no date) (unknown) (unknown) Bedside Urine pH 6.0 (units unknown) (unknown) (unknown) (no date) (unknown) (unknown) Blood Pressure 123/7 7 08/11/22 13:46 (units unknown) (unknown) (unknown) (no date) (unknown) (unknown) Blood Pressure 123/7 7 123/77 (units unknown) (unknown) (unknown) (no date) (unknown) (unknown) Blood Pressure 95/54 L (units unknown) (unknown) (unknown) (no date) (unknown) (unknown) CARDIOVASCULAR: Denies chest pain, palpitations, orthopnea, edema, (units unknown) (unknown) (unknown) (no date) (unknown) (unknown) CARDIOVASCULAR: Regular rate and rhythm without murmurs, gallops, or rubs. (units unknown) (unknown) (unknown) (no date) (unknown) (unknown) Chief complaint: Urogenital-Female (units unknown) (unknown) (unknown) (no date) (unknown) (unknown) Clinical Impression: (units unknown) (unknown) (unknown) (no date) (unknown) (unknown) Course (units unknown) (unknown) (unknown) (no date) (unknown) (unknown) Cyclic vomiting syndrome (units unknown) (unknown) (unknown) (no date) (unknown) (unknown) DKA (diabetic ketoacidoses) (units unknown) (unknown) (unknown) (no date) (unknown) (unknown) : 1995 Acct:[id number] (units unknown) (unknown) (unknown) (no date) (unknown) (unknown) Date of Service: 08/11/22 (units unknown) (unknown) (unknown) (no date) (unknown) (unknown) Departure (units unknown) (unknown) (unknown) (no date) (unknown) (unknown) Diabetes mellitus, type I (units unknown) (unknown) (unknown) (no date) (unknown) (unknown) Discharge Plan (units unknown) (unknown) (unknown) (no date) (unknown) (unknown) Disposition: Discharged to home (units unknown) (unknown) (unknown) (no date) (unknown) (unknown) Dose Instruction: (units unknown) (unknown) (unknown) (no date) (unknown) (unknown) ED Course: This is a 27-year-old female presents emergency department after (units unknown) (unknown) (unknown) (no date) (unknown) (unknown) ED Orders (units unknown) (unknown) (unknown) (no date) (unknown) (unknown) ENT: Nose without bleeding, purulent drainage. Throat without erythema, (units unknown) (unknown) (unknown) (no date) (unknown) (unknown) ER Physician: Franc Hutchinson P.A-C (units unknown) (unknown) (unknown) (no date) (unknown) (unknown) EXTREMITIES: No dulce a or joint tenderness. (units unknown) (unknown) (unknown) (no date) (unknown) (unknown) EYES: Pupils equal round and reactive. Extraocular motions intact. No scleral (units unknown) (unknown) (unknown) (no date) (unknown) (unknown) Emergency Report (units unknown) (unknown) (unknown) (no date) (unknown) (unknown) Esterase (units unknown) (unknown) (unknown) (no date) (unknown) (unknown) Exam Narrative: (units unknown) (unknown) (unknown) (no date) (unknown) (unknown) Exam (units unknown) (unknown) (unknown) (no date) (unknown) (unknown) Family History (units unknown) (unknown) (unknown) (no date) (unknown) (unknown) Father Healthy adult (units unknown) (unknown) (unknown) (no date) (unknown) (unknown) GASTROINTESTINAL: Abdomen soft, mild epigastric tenderness to palpation, (units unknown) (unknown) (unknown) (no date) (unknown) (unknown) GASTROINTESTINAL: Reports nausea and vomiting,, abdominal pain, denies (units unknown) (unknown) (unknown) (no date) (unknown) (unknown) GENERAL: Denies chills, fatigue, malaise, fever, sweats. (units unknown) (unknown) (unknown) (no date) (unknown) (unknown) GENERAL: Well-developed patient, in mild distress. (units unknown) (unknown) (unknown) (no date) (unknown) (unknown) : Reports dysuria, denies, frequency, incontinence, hematuria, urinary (units unknown) (unknown) (unknown) (no date) (unknown) (unknown) Gastroparesis (units unknown) (unknown) (unknown) (no date) (unknown) (unknown) General (units unknown) (unknown) (unknown) (no date) (unknown) (unknown) HEAD: Atraumatic. Normocephalic. (units unknown) (unknown) (unknown) (no date) (unknown) (unknown) HEENT: Denies sinus pain, ear pain, sore throat, difficulty swallowing, (units unknown) (unknown) (unknown) (no date) (unknown) (unknown) HPI - Female Genitourinary (units unknown) (unknown) (unknown) (no date) (unknown) (unknown) HPI Narrative: (units unknown) (unknown) (unknown) (no date) (unknown) (unknown) History of Present Illness (units unknown) (unknown) (unknown) (no date) (unknown) (unknown) History of type 1 diabetes, cyclic vomiting syndrome, gastroparesis, DKA, (units unknown) (unknown) (unknown) (no date) (unknown) (unknown) Home Medications (units unknown) (unknown) (unknown) (no date) (unknown) (unknown) Delonte Trevino MD [Primary Care Provider] (units unknown) (unknown) (unknown) (no date) (unknown) (unknown) I hope you feel better soon. (units unknown) (unknown) (unknown) (no date) (unknown) (unknown) Initial Vital Signs (units unknown) (unknown) (unknown) (no date) (unknown) (unknown) Initial Vital Signs: (units unknown) (unknown) (unknown) (no date) (unknown) (unknown) Insulin dependent diabetes mellitus (units unknown) (unknown) (unknown) (no date) (unknown) (unknown) [address] [address] (units unknown) (unknown) (unknown) (no date) (unknown) (unknown) Lab Data (units unknown) (unknown) (unknown) (no date) (unknown) (unknown) Lab Results (units unknown) (unknown) (unknown) (no date) (unknown) (unknown) Labs: (units unknown) (unknown) (unknown) (no date) (unknown) (unknown) MDM - Female Genitourinary (units unknown) (unknown) (unknown) (no date) (unknown) (unknown) MDM Narrative (units unknown) (unknown) (unknown) (no date) (unknown) (unknown) MDM (units unknown) (unknown) (unknown) (no date) (unknown) (unknown) MUSCULOSKELETAL: denies weakness, joint pain, or bony pain (units unknown) (unknown) (unknown) (no date) (unknown) (unknown) Medical History (units unknown) (unknown) (unknown) (no date) (unknown) (unknown) Medical decision making narrative: (units unknown) (unknown) (unknown) (no date) (unknown) (unknown) Medication Instructions Recorded Confirmed (units unknown) (unknown) (unknown) (no date) (unknown) (unknown) Medication Instructions Recorded (units unknown) (unknown) (unknown) (no date) (unknown) (unknown) Migraine headache with aura (units unknown) (unknown) (unknown) (no date) (unknown) (unknown) Mode of arrival: Ambulatory (units unknown) (unknown) (unknown) (no date) (unknown) (unknown) Mother Hypertension (units unknown) (unknown) (unknown) (no date) (unknown) (unknown) Myopia (units unknown) (unknown) (unknown) (no date) (unknown) (unknown) NAUSEA OR VOMITING (units unknown) (unknown) (unknown) (no date) (unknown) (unknown) NECK: Trachea midline. Non tender (units unknown) (unknown) (unknown) (no date) (unknown) (unknown) NEURO: AOx3. (units unknown) (unknown) (unknown) (no date) (unknown) (unknown) NEUROLOGIC: Denies weakness, headache, numbness, change in speech, confusion, (units unknown) (unknown) (unknown) (no date) (unknown) (unknown) Narrative (units unknown) (unknown) (unknown) (no date) (unknown) (unknown) Narrative: (units unknown) (unknown) (unknown) (no date) (unknown) (unknown) New (units unknown) (unknown) (unknown) (no date) (unknown) (unknown) No Action (units unknown) (unknown) (unknown) (no date) (unknown) (unknown) Ordered: (units unknown) (unknown) (unknown) (no date) (unknown) (unknown) Orders (units unknown) (unknown) (unknown) (no date) (unknown) (unknown) Oxygen Delivery Method Room Air (units unknown) (unknown) (unknown) (no date) (unknown) (unknown) Oxygen Delivery Method (units unknown) (unknown) (unknown) (no date) (unknown) (unknown) PSYCHIATRIC: No concerning psychosocial issues. (units unknown) (unknown) (unknown) (no date) (unknown) (unknown) Pancreatitis (units unknown) (unknown) (unknown) (no date) (unknown) (unknown) Patient Comments: (units unknown) (unknown) (unknown) (no date) (unknown) (unknown) Patient Disposition: Home (units unknown) (unknown) (unknown) (no date) (unknown) (unknown) Patient History (units unknown) (unknown) (unknown) (no date) (unknown) (unknown) Patient was seen her e yesterday for a complex UTI. History of type 1 diabetes, (units unknown) (unknown) (unknown) (no date) (unknown) (unknown) Patient: Kaur Horton MR (units unknown) (unknown) (unknown) (no date) (unknown) (unknown) Point of Care Testing (units unknown) (unknown) (unknown) (no date) (unknown) (unknown) Test Results Negative (units unknown) (unknown) (unknown) (no date) (unknown) (unknown) Prescriptions: (units unknown) (unknown) (unknown) (no date) (unknown) (unknown) Previous Rx's (units unknown) (unknown) (unknown) (no date) (unknown) (unknown) Pulse Oximetry 100 99 (units unknown) (unknown) (unknown) (no date) (unknown) (unknown) Pulse Oximetry 97 (units unknown) (unknown) (unknown) (no date) (unknown) (unknown) Pulse Oximetry 99 08/11/22 13:46 (units unknown) (unknown) (unknown) (no date) (unknown) (unknown) Pulse Rate 108 H 08/11/22 13:46 (units unknown) (unknown) (unknown) (no date) (unknown) (unknown) Pulse Rate 111 H 108 H (units unknown) (unknown) (unknown) (no date) (unknown) (unknown) Pulse Rate 80 (units unknown) (unknown) (unknown) (no date) (unknown) (unknown) RESPIRATORY: Clear t o auscultation. Breath sounds equal bilaterally. No wheezes, (units unknown) (unknown) (unknown) (no date) (unknown) (unknown) RESPIRATORY: Denies dyspnea, cough, wheezing, hemoptysis, sputum. (units unknown) (unknown) (unknown) (no date) (unknown) (unknown) Referrals: (units unknown) (unknown) (unknown) (no date) (unknown) (unknown) Related Data (units unknown) (unknown) (unknown) (no date) (unknown) (unknown) Respiratory Rate 16 (units unknown) (unknown) (unknown) (no date) (unknown) (unknown) Respiratory Rate 20 (units unknown) (unknown) (unknown) (no date) (unknown) (unknown) Review of Systems (units unknown) (unknown) (unknown) (no date) (unknown) (unknown) Rx Instructions: (units unknown) (unknown) (unknown) (no date) (unknown) (unknown) SKIN: Denies rash, skin lesions, or other (units unknown) (unknown) (unknown) (no date) (unknown) (unknown) SKIN: No rash or erythema of visible areas (units unknown) (unknown) (unknown) (no date) (unknown) (unknown) See Rx Instructions .ROUTE .COMPLEX Qty: 473 0RF (units unknown) (unknown) (unknown) (no date) (unknown) (unknown) See Rx Instructions .ROUTE .MEDSUPPLY Qty: 500 1RF (units unknown) (unknown) (unknown) (no date) (unknown) (unknown) See Rx Instructions PO .COMPLEX Qty: 60 0RF (units unknown) (unknown) (unknown) (no date) (unknown) (unknown) Seems like these hav e helped with the nausea and I recommend you continue taking (units unknown) (unknown) (unknown) (no date) (unknown) (unknown) Shared Decision Making: Discussed plan with the patient who is comfortable with (units unknown) (unknown) (unknown) (no date) (unknown) (unknown) Signed By: (units unknown) (unknown) (unknown) (no date) (unknown) (unknown) Social Considerations: None (units unknown) (unknown) (unknown) (no date) (unknown) (unknown) Source: patient (units unknown) (unknown) (unknown) (no date) (unknown) (unknown) Stand Alone Forms: Patient Portal/API (units unknown) (unknown) (unknown) (no date) (unknown) (unknown) Stated complaint: wa s here T-1/symptoms worsening (units unknown) (unknown) (unknown) (no date) (unknown) (unknown) Status post appendectomy (units unknown) (unknown) (unknown) (no date) (unknown) (unknown) Substance Use Type: marijuana (units unknown) (unknown) (unknown) (no date) (unknown) (unknown) Surgical History (units unknown) (unknown) (unknown) (no date) (unknown) (unknown) TAKE 10 MG (10ML) BY MOUTH EVERY 6 HOURS NEEDED FOR NAUSEA AND VOMITING (units unknown) (unknown) (unknown) (no date) (unknown) (unknown) TAKE 10 MG (10ML) BY MOUTH EVERY 6 HOURS NEEDED FOR NAUSEA AND VOMITING. (units unknown) (unknown) (unknown) (no date) (unknown) (unknown) Temperature 97.5 F L (units unknown) (unknown) (unknown) (no date) (unknown) (unknown) Temperature (units unknown) (unknown) (unknown) (no date) (unknown) (unknown) Thank you for coming to the [facility] today. Please (units unknown) (unknown) (unknown) (no date) (unknown) (unknown) This is a 27-year-ol d female presents emergency department due to an episode of (units unknown) (unknown) (unknown) (no date) (unknown) (unknown) Time Seen by Provider: 08/11/22 13:24 (units unknown) (unknown) (unknown) (no date) (unknown) (unknown) U-100 Insulin aspart) (units unknown) (unknown) (unknown) (no date) (unknown) (unknown) UNWRAP AND INSERT 1 SUPPOSITORY RECTALLY EVERY 4 TO 6 HOURS NEEDED FOR (units unknown) (unknown) (unknown) (no date) (unknown) (unknown) Ur Culture Indicated ? Specimen cultured (units unknown) (unknown) (unknown) (no date) (unknown) (unknown) Ur Squamous Epith Cells 5-10 /hpf H (0-5/HPF) (units unknown) (unknown) (unknown) (no date) (unknown) (unknown) Urinary tract infection, Vomiting (units unknown) (unknown) (unknown) (no date) (unknown) (unknown) Urine Bacteria Many (>30) H (None) (units unknown) (unknown) (unknown) (no date) (unknown) (unknown) Urine Culture Stat (units unknown) (unknown) (unknown) (no date) (unknown) (unknown) Urine Dip (units unknown) (unknown) (unknown) (no date) (unknown) (unknown) Urine Microscopic Stat (units unknown) (unknown) (unknown) (no date) (unknown) (unknown) Urine RBC 1-5/hpf (0-5/HPF) (units unknown) (unknown) (unknown) (no date) (unknown) (unknown) Urine Specific [place] 1.025 (units unknown) (unknown) (unknown) (no date) (unknown) (unknown) Urine WBC 5-10/hpf H (0-5/HPF) (units unknown) (unknown) (unknown) (no date) (unknown) (unknown) Vital Signs - 8 hr (units unknown) (unknown) (unknown) (no date) (unknown) (unknown) Vital Signs (units unknown) (unknown) (unknown) (no date) (unknown) (unknown) Vital signs: (units unknown) (unknown) (unknown) (no date) (unknown) (unknown) WITH MIGRAINE. (units unknown) (unknown) (unknown) (no date) (unknown) (unknown) Was advised to take her insulin 4 units for blood sugar of 332. Patient was (units unknown) (unknown) (unknown) (no date) (unknown) (unknown) alcohol intake frequency: holidays/special occasions only (units unknown) (unknown) (unknown) (no date) (unknown) (unknown) appendectomy, pancreatitis. Was seen yesterday for intractable vomiting with (units unknown) (unknown) (unknown) (no date) (unknown) (unknown) being seen yesterday , please see record review above,. She is reporting today (units unknown) (unknown) (unknown) (no date) (unknown) (unknown) blood glucose monitor. Was advised to take her insulin 4 units for blood sugar (units unknown) (unknown) (unknown) (no date) (unknown) (unknown) burning in her abdomen similar to previously. No new symptoms. (units unknown) (unknown) (unknown) (no date) (unknown) (unknown) cyclic vomiting syndrome, gastroparesis, DKA, appendectomy, pancreatitis. Was (units unknown) (unknown) (unknown) (no date) (unknown) (unknown) diarrhea, constipation, melena. (units unknown) (unknown) (unknown) (no date) (unknown) (unknown) dizziness. (units unknown) (unknown) (unknown) (no date) (unknown) (unknown) during an episode of vomiting. She states that her nausea med to help test (units unknown) (unknown) (unknown) (no date) (unknown) (unknown) for urine glucose, ketones, occult blood, nitrites. Patient has a personal (units unknown) (unknown) (unknown) (no date) (unknown) (unknown) gastroenteritis, UTI , sick vomiting (units unknown) (unknown) (unknown) (no date) (unknown) (unknown) growing staph bobbyunensis. Patient was discharged with prescriptions for (units unknown) (unknown) (unknown) (no date) (unknown) (unknown) his the pharmacy was closed. IV prescribed the medications to a [facility] here (units unknown) (unknown) (unknown) (no date) (unknown) (unknown) icterus. No injectio n or drainage. 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 Patient's exam (units unknown) (unknown) (unknown) (no date) (unknown) (unknown) insulin aspart U-100 100 unit/mL 1 sliding scale dose SUBCUT 10/04/21 (units unknown) (unknown) (unknown) (no date) (unknown) (unknown) insulin aspart U-100 [Novolog U-100 Insulin aspart] 100 unit/mL solution (units unknown) (unknown) (unknown) (no date) (unknown) (unknown) insulin syringes (disposable) 1 mL #500 ea 08/04/20 (units unknown) (unknown) (unknown) (no date) (unknown) (unknown) ketones, occult blood, nitrites. Patient has a personal blood glucose monitor. (units unknown) (unknown) (unknown) (no date) (unknown) (unknown) ketorolac [From Toradol] Allergy Verified 08/10/22 14:43 (units unknown) (unknown) (unknown) (no date) (unknown) (unknown) medication as well a s her antibiotics. She stated that she would not picking tech (units unknown) (unknown) (unknown) (no date) (unknown) (unknown) metoclopramide HCl 5 mg/5 mL oral See Rx Instructions .Route 01/28/22 (units unknown) (unknown) (unknown) (no date) (unknown) (unknown) metoclopramide HCl 5 mg/5 mL solution (units unknown) (unknown) (unknown) (no date) (unknown) (unknown) mg-trimethoprim 160 mg tablet (units unknown) (unknown) (unknown) (no date) (unknown) (unknown) nausea. Patient was given ondansetron, diazepam, Dilaudid, normal saline, (units unknown) (unknown) (unknown) (no date) (unknown) (unknown) night but she would not take any this morning. I reinforced that she should (units unknown) (unknown) (unknown) (no date) (unknown) (unknown) nondistended. (units unknown) (unknown) (unknown) (no date) (unknown) (unknown) of 332. Patient was treated with ceftriaxone and Bactrim due to her most recent (units unknown) (unknown) (unknown) (no date) (unknown) (unknown) ondansetron, diazepam, Dilaudid, normal saline, thiamine, Rocephin, Reglan, (units unknown) (unknown) (unknown) (no date) (unknown) (unknown) pantoprazole 40 mg tablet,delayed 40 mg PO BID #30 tabs 02/07/22 (units unknown) (unknown) (unknown) (no date) (unknown) (unknown) pantoprazole 40 mg tablet,delayed release (DR/EC) (units unknown) (unknown) (unknown) (no date) (unknown) (unknown) pantoprazole, Bactrim. White count was 20. Lactate was 2.8. Repeat lab work (units unknown) (unknown) (unknown) (no date) (unknown) (unknown) picking tech her medications that she was prescribed yesterday for her nausea (units unknown) (unknown) (unknown) (no date) (unknown) (unknown) picking tech the nausea medications and antibiotics prescribed yesterday. I have (units unknown) (unknown) (unknown) (no date) (unknown) (unknown) prescribed to her yesterday. (units unknown) (unknown) (unknown) (no date) (unknown) (unknown) prescriptions for promethazine and Bactrim. (units unknown) (unknown) (unknown) (no date) (unknown) (unknown) promethazine 12.5 mg tablet 12.5 mg PO BID PRN nausea and 08/11/22 (units unknown) (unknown) (unknown) (no date) (unknown) (unknown) promethazine 12.5 mg tablet 12.5 mg PO BID PRN sedation #14 08/10/22 (units unknown) (unknown) (unknown) (no date) (unknown) (unknown) promethazine 12.5 mg tablet (units unknown) (unknown) (unknown) (no date) (unknown) (unknown) promethazine 25 mg rectal 25 mg PA Q4-6H PRN Nausea And 01/27/22 02/07/22 (units unknown) (unknown) (unknown) (no date) (unknown) (unknown) promethazine [Promethegan] 25 mg suppository (units unknown) (unknown) (unknown) (no date) (unknown) (unknown) promethazine and Bactrim. (units unknown) (unknown) (unknown) (no date) (unknown) (unknown) rales, or rhonchi. (units unknown) (unknown) (unknown) (no date) (unknown) (unknown) release (units unknown) (unknown) (unknown) (no date) (unknown) (unknown) represcribed them to the [facility] here in [place] which should be open. (units unknown) (unknown) (unknown) (no date) (unknown) (unknown) retention. (units unknown) (unknown) (unknown) (no date) (unknown) (unknown) rizatriptan 10 mg tablet (Maxalt) See Rx Instructions PO .COMPLEX 01/29/22 (units unknown) (unknown) (unknown) (no date) (unknown) (unknown) rizatriptan [Maxalt] 10 mg tablet (units unknown) (unknown) (unknown) (no date) (unknown) (unknown) seen yesterday for intractable vomiting with nausea. Patient was given (units unknown) (unknown) (unknown) (no date) (unknown) (unknown) seizures, incoordination. (units unknown) (unknown) (unknown) (no date) (unknown) (unknown) she woke up this morning and had episode of vomiting. She also reports some (units unknown) (unknown) (unknown) (no date) (unknown) (unknown) solution .COMPLEX #473 mL (units unknown) (unknown) (unknown) (no date) (unknown) (unknown) states that the nausea medication she took last night helped with the nausea but (units unknown) (unknown) (unknown) (no date) (unknown) (unknown) subcutaneous solutio n (Novolog USEASDIRECTD #10 mL (units unknown) (unknown) (unknown) (no date) (unknown) (unknown) sulfamethoxazole 800 1 tab PO BID 10 days #20 tabs 08/10/22 (units unknown) (unknown) (unknown) (no date) (unknown) (unknown) sulfamethoxazole 800 1 tab PO Q12H 10 days #20 tabs 08/11/22 (units unknown) (unknown) (unknown) (no date) (unknown) (unknown) sulfamethoxazole-tri m ethoprim [Bactrim DS] 800-160 mg tablet (units unknown) (unknown) (unknown) (no date) (unknown) (unknown) suppository (Promethegan) Vomiting (units unknown) (unknown) (unknown) (no date) (unknown) (unknown) tabs (units unknown) (unknown) (unknown) (no date) (unknown) (unknown) take 1 tab at onset of headache; if no relief may repeat 1 tab after at least (units unknown) (unknown) (unknown) (no date) (unknown) (unknown) the plan. (units unknown) (unknown) (unknown) (no date) (unknown) (unknown) them. (units unknown) (unknown) (unknown) (no date) (unknown) (unknown) thiamine, Rocephin, Reglan, pantoprazole, Bactrim. White count was 20. Lactate (units unknown) (unknown) (unknown) (no date) (unknown) (unknown) tobacco type: vaping (units unknown) (unknown) (unknown) (no date) (unknown) (unknown) tonsillar hypertroph y or exudate. Airway patent. (units unknown) (unknown) (unknown) (no date) (unknown) (unknown) treated with ceftriaxone and Bactrim due to her most recent urine culture (units unknown) (unknown) (unknown) (no date) (unknown) (unknown) urine culture growin g staph lugdunensis. Patient was discharged with (units unknown) (unknown) (unknown) (no date) (unknown) (unknown) vomiting #14 tabs (units unknown) (unknown) (unknown) (no date) (unknown) (unknown) vomiting earlier thi s morning. Patient states that she was seen yesterday (units unknown) (unknown) (unknown) (no date) (unknown) (unknown) was 15 WBC. Repeat lactate was 0.9. UA was positive for urine glucose, (units unknown) (unknown) (unknown) (no date) (unknown) (unknown) was 2.8. Repeat lab work was 15 WBC. Repeat lactate was 0.9. UA was positive (units unknown) (unknown) (unknown) (no date) (unknown) (unknown) was reassuring and recommended she complete the course of antibiotics that was (units unknown) (unknown) Result panel [id number] (unknown) (no date) (unknown) (unknown) (no value) (units unknown) (unknown) (unknown) (no date) (unknown) (unknown) #60 tabs (units unknown) (unknown) (unknown) (no date) (unknown) (unknown) #: [id number] (units unknown) (unknown) (unknown) (no date) (unknown) (unknown) (Bactrim DS) (units unknown) (unknown) (unknown) (no date) (unknown) (unknown) (DME) insulin syringes (disposable) 1 mL syringe (units unknown) (unknown) (unknown) (no date) (unknown) (unknown) 08/11/22 23:58 (units unknown) (unknown) (unknown) (no date) (unknown) (unknown) 08/11/22 (units unknown) (unknown) (unknown) (no date) (unknown) (unknown) 1 sliding scale dose SUBCUT USEASDIRECTD Qty: 10 3RF (units unknown) (unknown) (unknown) (no date) (unknown) (unknown) 1 tab PO BID 10 Days Qty: 20 0RF (units unknown) (unknown) (unknown) (no date) (unknown) (unknown) 1 tab PO Q12H 10 Day s Qty: 20 0RF (units unknown) (unknown) (unknown) (no date) (unknown) (unknown) 12.5 mg PO BID PRN (Reason: nausea and vomiting) Qty: 14 0RF (units unknown) (unknown) (unknown) (no date) (unknown) (unknown) 12.5 mg PO BID PRN (Reason: sedation) Qty: 14 0RF (units unknown) (unknown) (unknown) (no date) (unknown) (unknown) 2 hrs; max = 3 tabs/24 hr PO (units unknown) (unknown) (unknown) (no date) (unknown) (unknown) 23:55 (units unknown) (unknown) (unknown) (no date) (unknown) (unknown) 25 mg PA Q4-6H PRN (Reason: Nausea And Vomiting) (units unknown) (unknown) (unknown) (no date) (unknown) (unknown) 40 mg PO BID Qty: 30 0RF (units unknown) (unknown) (unknown) (no date) (unknown) (unknown) Age/Sex: 27 / F (units unknown) (unknown) (unknown) (no date) (unknown) (unknown) Allergies (units unknown) (unknown) (unknown) (no date) (unknown) (unknown) Allergy/AdvReac Type Severity Reaction Status Date / Time (units unknown) (unknown) (unknown) (no date) (unknown) (unknown) Anemia (units unknown) (unknown) (unknown) (no date) (unknown) (unknown) As directed for use with insulin injections (units unknown) (unknown) (unknown) (no date) (unknown) (unknown) Blood Culture Stat (units unknown) (unknown) (unknown) (no date) (unknown) (unknown) Blood Pressure 143/8 3 H 08/11/22 23:55 (units unknown) (unknown) (unknown) (no date) (unknown) (unknown) Blood Pressure 143/8 3 H (units unknown) (unknown) (unknown) (no date) (unknown) (unknown) COVID19 -Nasal RAPID Stat (units unknown) (unknown) (unknown) (no date) (unknown) (unknown) Chief complaint: Nausea/Vomiting/Diarr hea (units unknown) (unknown) (unknown) (no date) (unknown) (unknown) Complete Blood Count AUTO DIFF Stat (units unknown) (unknown) (unknown) (no date) (unknown) (unknown) Comprehensive Metabolic Panel Stat (units unknown) (unknown) (unknown) (no date) (unknown) (unknown) Course (units unknown) (unknown) (unknown) (no date) (unknown) (unknown) Cyclic vomiting syndrome (units unknown) (unknown) (unknown) (no date) (unknown) (unknown) DKA (diabetic ketoacidoses) (units unknown) (unknown) (unknown) (no date) (unknown) (unknown) : 1995 Acct:[id number] (units unknown) (unknown) (unknown) (no date) (unknown) (unknown) Date of Service: 08/11/22 (units unknown) (unknown) (unknown) (no date) (unknown) (unknown) Departure (units unknown) (unknown) (unknown) (no date) (unknown) (unknown) Diabetes mellitus, type I (units unknown) (unknown) (unknown) (no date) (unknown) (unknown) Discharge Plan (units unknown) (unknown) (unknown) (no date) (unknown) (unknown) Dose Instruction: (units unknown) (unknown) (unknown) (no date) (unknown) (unknown) ED Orders (units unknown) (unknown) (unknown) (no date) (unknown) (unknown) ER Physician: Demetrius Krause D.O. (units unknown) (unknown) (unknown) (no date) (unknown) (unknown) Emergency Report (units unknown) (unknown) (unknown) (no date) (unknown) (unknown) Ethanol (ETOH) Stat (units unknown) (unknown) (unknown) (no date) (unknown) (unknown) Exam (units unknown) (unknown) (unknown) (no date) (unknown) (unknown) Family History (units unknown) (unknown) (unknown) (no date) (unknown) (unknown) Father Healthy adult (units unknown) (unknown) (unknown) (no date) (unknown) (unknown) Gastroparesis (units unknown) (unknown) (unknown) (no date) (unknown) (unknown) General (units unknown) (unknown) (unknown) (no date) (unknown) (unknown) HPI - Nausea/Vomiting/Diarr hea (units unknown) (unknown) (unknown) (no date) (unknown) (unknown) Home Medications (units unknown) (unknown) (unknown) (no date) (unknown) (unknown) Delonte Trevino MD [Primary Care Provider] (units unknown) (unknown) (unknown) (no date) (unknown) (unknown) Initial Vital Signs (units unknown) (unknown) (unknown) (no date) (unknown) (unknown) Initial Vital Signs: (units unknown) (unknown) (unknown) (no date) (unknown) (unknown) Insulin dependent diabetes mellitus (units unknown) (unknown) (unknown) (no date) (unknown) (unknown) [address] [address] (units unknown) (unknown) (unknown) (no date) (unknown) (unknown) Ketones (Beta-Hydroxybutyrate ) Stat (units unknown) (unknown) (unknown) (no date) (unknown) (unknown) Lactate (Lactic Acid ) Stat (units unknown) (unknown) (unknown) (no date) (unknown) (unknown) Lipase Stat (units unknown) (unknown) (unknown) (no date) (unknown) (unknown) Magnesium Stat (units unknown) (unknown) (unknown) (no date) (unknown) (unknown) Medical History (units unknown) (unknown) (unknown) (no date) (unknown) (unknown) Medication Instructions Recorded Confirmed (units unknown) (unknown) (unknown) (no date) (unknown) (unknown) Medication Instructions Recorded (units unknown) (unknown) (unknown) (no date) (unknown) (unknown) Migraine headache with aura (units unknown) (unknown) (unknown) (no date) (unknown) (unknown) Mode of arrival: Ambulatory (units unknown) (unknown) (unknown) (no date) (unknown) (unknown) Mother Hypertension (units unknown) (unknown) (unknown) (no date) (unknown) (unknown) Myopia (units unknown) (unknown) (unknown) (no date) (unknown) (unknown) NAUSEA OR VOMITING (units unknown) (unknown) (unknown) (no date) (unknown) (unknown) No Action (units unknown) (unknown) (unknown) (no date) (unknown) (unknown) Ordered: (units unknown) (unknown) (unknown) (no date) (unknown) (unknown) Orders (units unknown) (unknown) (unknown) (no date) (unknown) (unknown) Oxygen Delivery Method Room Air 08/11/22 23:55 (units unknown) (unknown) (unknown) (no date) (unknown) (unknown) Oxygen Delivery Method Room Air (units unknown) (unknown) (unknown) (no date) (unknown) (unknown) Pancreatitis (units unknown) (unknown) (unknown) (no date) (unknown) (unknown) Patient Comments: (units unknown) (unknown) (unknown) (no date) (unknown) (unknown) Patient History (units unknown) (unknown) (unknown) (no date) (unknown) (unknown) Patient: Kaur Horton MR (units unknown) (unknown) (unknown) (no date) (unknown) (unknown) Phosphorous Stat (units unknown) (unknown) (unknown) (no date) (unknown) (unknown) Test Serum,Qual Stat (units unknown) (unknown) (unknown) (no date) (unknown) (unknown) Prescriptions: (units unknown) (unknown) (unknown) (no date) (unknown) (unknown) Previous Rx's (units unknown) (unknown) (unknown) (no date) (unknown) (unknown) Procalcitonin Stat (units unknown) (unknown) (unknown) (no date) (unknown) (unknown) Pulse Oximetry 99 08/11/22 23:55 (units unknown) (unknown) (unknown) (no date) (unknown) (unknown) Pulse Oximetry 99 (units unknown) (unknown) (unknown) (no date) (unknown) (unknown) Pulse Rate 123 H 08/11/22 23:55 (units unknown) (unknown) (unknown) (no date) (unknown) (unknown) Pulse Rate 123 H (units unknown) (unknown) (unknown) (no date) (unknown) (unknown) Referrals: (units unknown) (unknown) (unknown) (no date) (unknown) (unknown) Related Data (units unknown) (unknown) (unknown) (no date) (unknown) (unknown) Respiratory Rate 24 08/11/22 23:55 (units unknown) (unknown) (unknown) (no date) (unknown) (unknown) Respiratory Rate 24 (units unknown) (unknown) (unknown) (no date) (unknown) (unknown) Rx Instructions: (units unknown) (unknown) (unknown) (no date) (unknown) (unknown) See Rx Instructions .ROUTE .COMPLEX Qty: 473 0RF (units unknown) (unknown) (unknown) (no date) (unknown) (unknown) See Rx Instructions .ROUTE .MEDSUPPLY Qty: 500 1RF (units unknown) (unknown) (unknown) (no date) (unknown) (unknown) See Rx Instructions PO .COMPLEX Qty: 60 0RF (units unknown) (unknown) (unknown) (no date) (unknown) (unknown) Signed By: (units unknown) (unknown) (unknown) (no date) (unknown) (unknown) Smoking Status: Current every day smoker (units unknown) (unknown) (unknown) (no date) (unknown) (unknown) Social History (units unknown) (unknown) (unknown) (no date) (unknown) (unknown) Stated complaint: vomiting, back pain was seen earlier today (units unknown) (unknown) (unknown) (no date) (unknown) (unknown) Status post appendectomy (units unknown) (unknown) (unknown) (no date) (unknown) (unknown) Substance Use Type: marijuana (units unknown) (unknown) (unknown) (no date) (unknown) (unknown) Surgical History (units unknown) (unknown) (unknown) (no date) (unknown) (unknown) TAKE 10 MG (10ML) BY MOUTH EVERY 6 HOURS NEEDED FOR NAUSEA AND VOMITING (units unknown) (unknown) (unknown) (no date) (unknown) (unknown) TAKE 10 MG (10ML) BY MOUTH EVERY 6 HOURS NEEDED FOR NAUSEA AND VOMITING. (units unknown) (unknown) (unknown) (no date) (unknown) (unknown) Temperature 98.3 F 08/11/22 23:55 (units unknown) (unknown) (unknown) (no date) (unknown) (unknown) Temperature 98.3 F (units unknown) (unknown) (unknown) (no date) (unknown) (unknown) Time Seen by Provider: 08/11/22 23:47 (units unknown) (unknown) (unknown) (no date) (unknown) (unknown) U-100 Insulin aspart) (units unknown) (unknown) (unknown) (no date) (unknown) (unknown) UNWRAP AND INSERT 1 SUPPOSITORY RECTALLY EVERY 4 TO 6 HOURS NEEDED FOR (units unknown) (unknown) (unknown) (no date) (unknown) (unknown) Vital Signs - 8 hr (units unknown) (unknown) (unknown) (no date) (unknown) (unknown) Vital Signs (units unknown) (unknown) (unknown) (no date) (unknown) (unknown) Vital signs: (units unknown) (unknown) (unknown) (no date) (unknown) (unknown) WITH MIGRAINE. (units unknown) (unknown) (unknown) (no date) (unknown) (unknown) alcohol intake frequency: holidays/special occasions only (units unknown) (unknown) (unknown) (no date) (unknown) (unknown) alcohol intake: never (units unknown) (unknown) (unknown) (no date) (unknown) (unknown) household members: spouse (units unknown) (unknown) (unknown) (no date) (unknown) (unknown) insulin aspart U-100 100 unit/mL 1 sliding scale dose SUBCUT 10/04/21 (units unknown) (unknown) (unknown) (no date) (unknown) (unknown) insulin aspart U-100 [Novolog U-100 Insulin aspart] 100 unit/mL solution (units unknown) (unknown) (unknown) (no date) (unknown) (unknown) insulin syringes (disposable) 1 mL #500 ea 08/04/20 (units unknown) (unknown) (unknown) (no date) (unknown) (unknown) ketorolac [From Toradol] Allergy Verified 08/10/22 14:43 (units unknown) (unknown) (unknown) (no date) (unknown) (unknown) metoclopramide HCl 5 mg/5 mL oral See Rx Instructions .Route 01/28/22 (units unknown) (unknown) (unknown) (no date) (unknown) (unknown) metoclopramide HCl 5 mg/5 mL solution (units unknown) (unknown) (unknown) (no date) (unknown) (unknown) mg-trimethoprim 160 mg tablet (units unknown) (unknown) (unknown) (no date) (unknown) (unknown) pantoprazole 40 mg tablet,delayed 40 mg PO BID #30 tabs 02/07/22 (units unknown) (unknown) (unknown) (no date) (unknown) (unknown) pantoprazole 40 mg tablet,delayed release (DR/EC) (units unknown) (unknown) (unknown) (no date) (unknown) (unknown) promethazine 12.5 mg tablet 12.5 mg PO BID PRN nausea and 08/11/22 (units unknown) (unknown) (unknown) (no date) (unknown) (unknown) promethazine 12.5 mg tablet 12.5 mg PO BID PRN sedation #14 08/10/22 (units unknown) (unknown) (unknown) (no date) (unknown) (unknown) promethazine 12.5 mg tablet (units unknown) (unknown) (unknown) (no date) (unknown) (unknown) promethazine 25 mg rectal 25 mg PA Q4-6H PRN Nausea And 01/27/22 02/07/22 (units unknown) (unknown) (unknown) (no date) (unknown) (unknown) promethazine [Promethegan] 25 mg suppository (units unknown) (unknown) (unknown) (no date) (unknown) (unknown) release (units unknown) (unknown) (unknown) (no date) (unknown) (unknown) rizatriptan 10 mg tablet (Maxalt) See Rx Instructions PO .COMPLEX 01/29/22 (units unknown) (unknown) (unknown) (no date) (unknown) (unknown) rizatriptan [Maxalt] 10 mg tablet (units unknown) (unknown) (unknown) (no date) (unknown) (unknown) solution .COMPLEX #473 mL (units unknown) (unknown) (unknown) (no date) (unknown) (unknown) subcutaneous solutio n (Novolog USEASDIRECTD #10 mL (units unknown) (unknown) (unknown) (no date) (unknown) (unknown) sulfamethoxazole 800 1 tab PO BID 10 days #20 tabs 08/10/22 (units unknown) (unknown) (unknown) (no date) (unknown) (unknown) sulfamethoxazole 800 1 tab PO Q12H 10 days #20 tabs 08/11/22 (units unknown) (unknown) (unknown) (no date) (unknown) (unknown) sulfamethoxazole-tri m ethoprim [Bactrim DS] 800-160 mg tablet (units unknown) (unknown) (unknown) (no date) (unknown) (unknown) suppository (Promethegan) Vomiting (units unknown) (unknown) (unknown) (no date) (unknown) (unknown) tabs (units unknown) (unknown) (unknown) (no date) (unknown) (unknown) take 1 tab at onset of headache; if no relief may repeat 1 tab after at least (units unknown) (unknown) (unknown) (no date) (unknown) (unknown) tobacco type: vaping (units unknown) (unknown) (unknown) (no date) (unknown) (unknown) vomiting #14 tabs (units unknown) (unknown) Result panel 1600 (unknown) (no date) (unknown) (unknown) > 60 ml/min (unknown) (unknown) (no date) (unknown) (unknown) > 60 ml/min (unknown) (unknown) (no date) (unknown) (unknown) < 10 mg/dl (unknown) (unknown) (no date) (unknown) (unknown) < 10 mg/dl (unknown) (unknown) (no date) (unknown) (unknown) 0.56 mg/dl (unknown) (unknown) (no date) (unknown) (unknown) 1.0 mg/dl (unknown) (unknown) (no date) (unknown) (unknown) 1.5 (units unknown) (unknown) (unknown) (no date) (unknown) (unknown) 1.8 mg/dl (unknown) (unknown) (no date) (unknown) (unknown) 115 u/l (unknown) (unknown) (no date) (unknown) (unknown) 12 mg/dl (unknown) (unknown) (no date) (unknown) (unknown) 138 mmol/l (unknown) (unknown) (no date) (unknown) (unknown) 19 mmol/l (unknown) (unknown) (no date) (unknown) (unknown) 20 iu/l (unknown) (unknown) (no date) (unknown) (unknown) 21.4 (units unknown) (unknown) (unknown) (no date) (unknown) (unknown) 24 u/l (unknown) (unknown) (no date) (unknown) (unknown) 3.1 g/dl (unknown) (unknown) (no date) (unknown) (unknown) 3.1 mg/dl (unknown) (unknown) (no date) (unknown) (unknown) 3.3 mmol/l (unknown) (unknown) (no date) (unknown) (unknown) 31 iu/l (unknown) (unknown) (no date) (unknown) (unknown) 4.7 g/dl (unknown) (unknown) (no date) (unknown) (unknown) 7.8 g/dl (unknown) (unknown) (no date) (unknown) (unknown) 8.7 mg/dl (unknown) (unknown) (no date) (unknown) (unknown) 92 mg/dl (unknown) (unknown) (no date) (unknown) (unknown) 92 mg/dl (unknown) (unknown) (no date) (unknown) (unknown) 99 mmol/l (unknown) Result panel 1601 (unknown) (no date) (unknown) (unknown) 2.3 mmol/l (unknown) Result panel 1602 (unknown) (no date) (unknown) (unknown) 0 /ul (unknown) (unknown) (no date) (unknown) (unknown) 0 /ul (unknown) (unknown) (no date) (unknown) (unknown) 0.0 % (unknown) (unknown) (no date) (unknown) (unknown) 0.1 % (unknown) (unknown) (no date) (unknown) (unknown) 11.4 g/dl (unknown) (unknown) (no date) (unknown) (unknown) [address] /ul (unknown) (unknown) (no date) (unknown) (unknown) 15.9 % (unknown) (unknown) (no date) (unknown) (unknown) 17.7 % (unknown) (unknown) (no date) (unknown) (unknown) 18.1 x10 3/ul (unknown) (unknown) (no date) (unknown) (unknown) 25.5 pg (unknown) (unknown) (no date) (unknown) (unknown) 317 x10 3/ul (unknown) (unknown) (no date) (unknown) (unknown) 32.7 % (unknown) (unknown) (no date) (unknown) (unknown) 3200 /ul (unknown) (unknown) (no date) (unknown) (unknown) 34.9 % (unknown) (unknown) (no date) (unknown) (unknown) 4.47 x10 6/ul (unknown) (unknown) (no date) (unknown) (unknown) 4.8 % (unknown) (unknown) (no date) (unknown) (unknown) 77.4 % (unknown) (unknown) (no date) (unknown) (unknown) 78.0 fl (unknown) (unknown) (no date) (unknown) (unknown) 900 /ul (unknown) Result panel 1603 (unknown) (no date) (unknown) (unknown) > 60 ml/min (unknown) (unknown) (no date) (unknown) (unknown) > 60 ml/min (unknown) (unknown) (no date) (unknown) (unknown) < 10 mg/dl (unknown) (unknown) (no date) (unknown) (unknown) < 10 mg/dl (unknown) (unknown) (no date) (unknown) (unknown) 0.56 mg/dl (unknown) (unknown) (no date) (unknown) (unknown) 1.0 mg/dl (unknown) (unknown) (no date) (unknown) (unknown) 1.5 (units unknown) (unknown) (unknown) (no date) (unknown) (unknown) 1.8 mg/dl (unknown) (unknown) (no date) (unknown) (unknown) 115 u/l (unknown) (unknown) (no date) (unknown) (unknown) 12 mg/dl (unknown) (unknown) (no date) (unknown) (unknown) 138 mmol/l (unknown) (unknown) (no date) (unknown) (unknown) 19 mmol/l (unknown) (unknown) (no date) (unknown) (unknown) 20 iu/l (unknown) (unknown) (no date) (unknown) (unknown) 21.4 (units unknown) (unknown) (unknown) (no date) (unknown) (unknown) 24 u/l (unknown) (unknown) (no date) (unknown) (unknown) 3.1 g/dl (unknown) (unknown) (no date) (unknown) (unknown) 3.1 mg/dl (unknown) (unknown) (no date) (unknown) (unknown) 3.3 mmol/l (unknown) (unknown) (no date) (unknown) (unknown) 31 iu/l (unknown) (unknown) (no date) (unknown) (unknown) 4.7 g/dl (unknown) (unknown) (no date) (unknown) (unknown) 5.09 mmol/l (unknown) (unknown) (no date) (unknown) (unknown) 5.09 mmol/l (unknown) (unknown) (no date) (unknown) (unknown) 7.8 g/dl (unknown) (unknown) (no date) (unknown) (unknown) 8.7 mg/dl (unknown) (unknown) (no date) (unknown) (unknown) 92 mg/dl (unknown) (unknown) (no date) (unknown) (unknown) 92 mg/dl (unknown) (unknown) (no date) (unknown) (unknown) 99 mmol/l (unknown) Result panel 1604 (unknown) (no date) (unknown) (unknown) (no value) (units unknown) (unknown) (unknown) (no date) (unknown) (unknown) #60 tabs (units unknown) (unknown) (unknown) (no date) (unknown) (unknown) #: [id number] (units unknown) (unknown) (unknown) (no date) (unknown) (unknown) (Bactrim DS) (units unknown) (unknown) (unknown) (no date) (unknown) (unknown) 00:06 00:06 00:06 (units unknown) (unknown) (unknown) (no date) (unknown) (unknown) 08/11/22 23:58 (units unknown) (unknown) (unknown) (no date) (unknown) (unknown) 08/11/22 (units unknown) (unknown) (unknown) (no date) (unknown) (unknown) 08/12/22 00:06 (units unknown) (unknown) (unknown) (no date) (unknown) (unknown) 08/12/22 00:33 (units unknown) (unknown) (unknown) (no date) (unknown) (unknown) 08/12/22 08/12/22 08/12/22 Range/Units (units unknown) (unknown) (unknown) (no date) (unknown) (unknown) 23:55 (units unknown) (unknown) (unknown) (no date) (unknown) (unknown) ALT 20 (<35) IU/L (units unknown) (unknown) (unknown) (no date) (unknown) (unknown) AST 31 (14-36) IU/L (units unknown) (unknown) (unknown) (no date) (unknown) (unknown) Admit Date/Time: 08/12/22 00:16 (units unknown) (unknown) (unknown) (no date) (unknown) (unknown) Admit Provider: Gracia Smith (units unknown) (unknown) (unknown) (no date) (unknown) (unknown) Age/Sex: 27 / F (units unknown) (unknown) (unknown) (no date) (unknown) (unknown) Albumin 4.7 (3.5-5.0 ) g/dL (units unknown) (unknown) (unknown) (no date) (unknown) (unknown) Albumin/Globulin Ratio 1.5 (1.0-2.8) (units unknown) (unknown) (unknown) (no date) (unknown) (unknown) Alkaline Phosphatase 115 (38-126) U/L (units unknown) (unknown) (unknown) (no date) (unknown) (unknown) Allergies (units unknown) (unknown) (unknown) (no date) (unknown) (unknown) Allergy/AdvReac Type Severity Reaction Status Date / Time (units unknown) (unknown) (unknown) (no date) (unknown) (unknown) Anemia (units unknown) (unknown) (unknown) (no date) (unknown) (unknown) BUN 12 (7-17) mg/dL (units unknown) (unknown) (unknown) (no date) (unknown) (unknown) BUN/Creatinine Ratio 21.4 (6-22) (units unknown) (unknown) (unknown) (no date) (unknown) (unknown) Baso # (Auto) 0 (0-100) /uL (units unknown) (unknown) (unknown) (no date) (unknown) (unknown) Baso % (Auto) 0.1 (0-2) % (units unknown) (unknown) (unknown) (no date) (unknown) (unknown) Blood Culture Stat (units unknown) (unknown) (unknown) (no date) (unknown) (unknown) Blood Pressure 143/8 3 H 08/11/22 23:55 (units unknown) (unknown) (unknown) (no date) (unknown) (unknown) Blood Pressure 143/8 3 H (units unknown) (unknown) (unknown) (no date) (unknown) (unknown) COVID19 -Nasal RAPID Stat (units unknown) (unknown) (unknown) (no date) (unknown) (unknown) Calcium 8.7 (8.4-10.2) mg/dL (units unknown) (unknown) (unknown) (no date) (unknown) (unknown) Carbon Dioxide 19 L (22-32) mmol/L (units unknown) (unknown) (unknown) (no date) (unknown) (unknown) Ceftriaxone Sodium 1,000 mg/ (Sodium Chloride) 100 mls @ 200 mls/hr IV NOW ONE (units unknown) (unknown) (unknown) (no date) (unknown) (unknown) Chief complaint: Nausea/Vomiting/Diarr hea (units unknown) (unknown) (unknown) (no date) (unknown) (unknown) Chloride 99 (98-107) mmol/L (units unknown) (unknown) (unknown) (no date) (unknown) (unknown) Clinical Impression: (units unknown) (unknown) (unknown) (no date) (unknown) (unknown) Complete Blood Count AUTO DIFF Stat (units unknown) (unknown) (unknown) (no date) (unknown) (unknown) Comprehensive Metabolic Panel Stat (units unknown) (unknown) (unknown) (no date) (unknown) (unknown) Course (units unknown) (unknown) (unknown) (no date) (unknown) (unknown) Creatinine 0.56 (0.52-1.04) mg/dL (units unknown) (unknown) (unknown) (no date) (unknown) (unknown) Cyclic vomiting syndrome (units unknown) (unknown) (unknown) (no date) (unknown) (unknown) DKA (diabetic ketoacidoses) (units unknown) (unknown) (unknown) (no date) (unknown) (unknown) : 1995 Acct:[id number] (units unknown) (unknown) (unknown) (no date) (unknown) (unknown) Date of Service: 08/12/22 (units unknown) (unknown) (unknown) (no date) (unknown) (unknown) Departure (units unknown) (unknown) (unknown) (no date) (unknown) (unknown) Diabetes mellitus, type I (units unknown) (unknown) (unknown) (no date) (unknown) (unknown) Discharge Plan (units unknown) (unknown) (unknown) (no date) (unknown) (unknown) Discontinued Medications (units unknown) (unknown) (unknown) (no date) (unknown) (unknown) Documented By: SB (units unknown) (unknown) (unknown) (no date) (unknown) (unknown) ED Orders (units unknown) (unknown) (unknown) (no date) (unknown) (unknown) ER Physician: Demetrius Krause D.O. (units unknown) (unknown) (unknown) (no date) (unknown) (unknown) Emergency Report (units unknown) (unknown) (unknown) (no date) (unknown) (unknown) Eos # (Auto) 0 (0-450) /uL (units unknown) (unknown) (unknown) (no date) (unknown) (unknown) Eos % (Auto) 0.0 L (2-4) % (units unknown) (unknown) (unknown) (no date) (unknown) (unknown) Estimated GFR > 60 (>60) mL/min (units unknown) (unknown) (unknown) (no date) (unknown) (unknown) Ethanol (ETOH) Stat (units unknown) (unknown) (unknown) (no date) (unknown) (unknown) Ethyl Alcohol < 10 ( - 10) mg/dL (units unknown) (unknown) (unknown) (no date) (unknown) (unknown) Exam (units unknown) (unknown) (unknown) (no date) (unknown) (unknown) Family History (units unknown) (unknown) (unknown) (no date) (unknown) (unknown) Father Healthy adult (units unknown) (unknown) (unknown) (no date) (unknown) (unknown) Gastroparesis (units unknown) (unknown) (unknown) (no date) (unknown) (unknown) General (units unknown) (unknown) (unknown) (no date) (unknown) (unknown) Globulin 3.1 (1.7-4.1) g/dL (units unknown) (unknown) (unknown) (no date) (unknown) (unknown) Glucose 92 (70-100) mg/dL (units unknown) (unknown) (unknown) (no date) (unknown) (unknown) HPI - Nausea/Vomiting/Diarr hea (units unknown) (unknown) (unknown) (no date) (unknown) (unknown) Haloperidol (Haloperidol 5 Mg/Ml Vial) 5 mg IV NOW ONE (units unknown) (unknown) (unknown) (no date) (unknown) (unknown) Hct 34.9 L (36-46) % (units unknown) (unknown) (unknown) (no date) (unknown) (unknown) Hgb 11.4 L (12.0-16.0) g/dL (units unknown) (unknown) (unknown) (no date) (unknown) (unknown) Home Medications (units unknown) (unknown) (unknown) (no date) (unknown) (unknown) Initial Vital Signs (units unknown) (unknown) (unknown) (no date) (unknown) (unknown) Initial Vital Signs: (units unknown) (unknown) (unknown) (no date) (unknown) (unknown) Insulin dependent diabetes mellitus (units unknown) (unknown) (unknown) (no date) (unknown) (unknown) [address] [address] (units unknown) (unknown) (unknown) (no date) (unknown) (unknown) Ketones (Beta-Hydroxybutyrate ) Stat (units unknown) (unknown) (unknown) (no date) (unknown) (unknown) Lab Data (units unknown) (unknown) (unknown) (no date) (unknown) (unknown) Lab Results (units unknown) (unknown) (unknown) (no date) (unknown) (unknown) Labs: (units unknown) (unknown) (unknown) (no date) (unknown) (unknown) Lactate (Lactic Acid ) Stat (units unknown) (unknown) (unknown) (no date) (unknown) (unknown) Lactate 2.3 H (0.7-2.1) mmol/L (units unknown) (unknown) (unknown) (no date) (unknown) (unknown) Last Admin: 08/12/22 00:19 Dose: 200 mls/hr (units unknown) (unknown) (unknown) (no date) (unknown) (unknown) Last Admin: 08/12/22 00:19 Dose: 5 mg (units unknown) (unknown) (unknown) (no date) (unknown) (unknown) Limitations: no limitations (units unknown) (unknown) (unknown) (no date) (unknown) (unknown) Lipase 24 (23-300) U/L (units unknown) (unknown) (unknown) (no date) (unknown) (unknown) Lipase Stat (units unknown) (unknown) (unknown) (no date) (unknown) (unknown) Lymph # (Auto) 3200 (1179-6700) /uL (units unknown) (unknown) (unknown) (no date) (unknown) (unknown) Lymph % (Auto) 17.7 L (25-40) % (units unknown) (unknown) (unknown) (no date) (unknown) (unknown) MCH 25.5 L (26-34) PG (units unknown) (unknown) (unknown) (no date) (unknown) (unknown) MCHC 32.7 (30-36) % (units unknown) (unknown) (unknown) (no date) (unknown) (unknown) MCV 78.0 L (80-100) fL (units unknown) (unknown) (unknown) (no date) (unknown) (unknown) MDM - Nausea/Vomiting/Diarr hea (units unknown) (unknown) (unknown) (no date) (unknown) (unknown) Magnesium 1.8 (1.6-2.3) mg/dL (units unknown) (unknown) (unknown) (no date) (unknown) (unknown) Magnesium Stat (units unknown) (unknown) (unknown) (no date) (unknown) (unknown) Medical History (units unknown) (unknown) (unknown) (no date) (unknown) (unknown) Medication Instructions Recorded Confirmed (units unknown) (unknown) (unknown) (no date) (unknown) (unknown) Medication Instructions Recorded (units unknown) (unknown) (unknown) (no date) (unknown) (unknown) Migraine headache with aura (units unknown) (unknown) (unknown) (no date) (unknown) (unknown) Mode of arrival: Ambulatory (units unknown) (unknown) (unknown) (no date) (unknown) (unknown) O[place]Brien # (Auto) 900 (0-900) /uL (units unknown) (unknown) (unknown) (no date) (unknown) (unknown) [place]Brien % (Auto) 4.8 (3-14) % (units unknown) (unknown) (unknown) (no date) (unknown) (unknown) Mother Hypertension (units unknown) (unknown) (unknown) (no date) (unknown) (unknown) Myopia (units unknown) (unknown) (unknown) (no date) (unknown) (unknown) Neut # (Auto) 74231 H (5491-9499) /uL (units unknown) (unknown) (unknown) (no date) (unknown) (unknown) Neut % (Auto) 77.4 H (50-75) % (units unknown) (unknown) (unknown) (no date) (unknown) (unknown) Ordered: (units unknown) (unknown) (unknown) (no date) (unknown) (unknown) Orders (units unknown) (unknown) (unknown) (no date) (unknown) (unknown) Oxygen Delivery Method Room Air 08/11/22 23:55 (units unknown) (unknown) (unknown) (no date) (unknown) (unknown) Oxygen Delivery Method Room Air (units unknown) (unknown) (unknown) (no date) (unknown) (unknown) Pancreatitis (units unknown) (unknown) (unknown) (no date) (unknown) (unknown) Patient Disposition: Admitted As Inpatient (units unknown) (unknown) (unknown) (no date) (unknown) (unknown) Patient History (units unknown) (unknown) (unknown) (no date) (unknown) (unknown) Patient: Kaur Horton MR (units unknown) (unknown) (unknown) (no date) (unknown) (unknown) Phosphorous Stat (units unknown) (unknown) (unknown) (no date) (unknown) (unknown) Phosphorus 3.1 (2.5-4.5) mg/dL (units unknown) (unknown) (unknown) (no date) (unknown) (unknown) Plt Count 317 (150-400) X103/uL (units unknown) (unknown) (unknown) (no date) (unknown) (unknown) Potassium 3.3 L (3.4-5.1) mmol/L (units unknown) (unknown) (unknown) (no date) (unknown) (unknown) Test Serum,Qual Stat (units unknown) (unknown) (unknown) (no date) (unknown) (unknown) Previous Rx's (units unknown) (unknown) (unknown) (no date) (unknown) (unknown) Procalcitonin Stat (units unknown) (unknown) (unknown) (no date) (unknown) (unknown) Pulse Oximetry 99 08/11/22 23:55 (units unknown) (unknown) (unknown) (no date) (unknown) (unknown) Pulse Oximetry 99 (units unknown) (unknown) (unknown) (no date) (unknown) (unknown) Pulse Rate 123 H 08/11/22 23:55 (units unknown) (unknown) (unknown) (no date) (unknown) (unknown) Pulse Rate 123 H (units unknown) (unknown) (unknown) (no date) (unknown) (unknown) RBC 4.47 (4.0-5.2) X106/uL (units unknown) (unknown) (unknown) (no date) (unknown) (unknown) RDW 15.9 H (11.6-14.8) % (units unknown) (unknown) (unknown) (no date) (unknown) (unknown) Related Data (units unknown) (unknown) (unknown) (no date) (unknown) (unknown) Respiratory Rate 24 08/11/22 23:55 (units unknown) (unknown) (unknown) (no date) (unknown) (unknown) Respiratory Rate 24 (units unknown) (unknown) (unknown) (no date) (unknown) (unknown) Signed By: (units unknown) (unknown) (unknown) (no date) (unknown) (unknown) Smoking Status: Current every day smoker (units unknown) (unknown) (unknown) (no date) (unknown) (unknown) Social History (units unknown) (unknown) (unknown) (no date) (unknown) (unknown) Sodium 138 (137-145) mmol/L (units unknown) (unknown) (unknown) (no date) (unknown) (unknown) Sodium Chloride (Normal Saline 0.9%) 1,000 mls @ 1,000 mls/hr IV BOLUS ONE (units unknown) (unknown) (unknown) (no date) (unknown) (unknown) Source: patient (units unknown) (unknown) (unknown) (no date) (unknown) (unknown) Stated complaint: vomiting, back pain was seen earlier today (units unknown) (unknown) (unknown) (no date) (unknown) (unknown) Status post appendectomy (units unknown) (unknown) (unknown) (no date) (unknown) (unknown) Stop: 08/12/22 00:07 (units unknown) (unknown) (unknown) (no date) (unknown) (unknown) Stop: 08/12/22 00:08 (units unknown) (unknown) (unknown) (no date) (unknown) (unknown) Stop: 08/12/22 01:34 (units unknown) (unknown) (unknown) (no date) (unknown) (unknown) Substance Use Type: marijuana (units unknown) (unknown) (unknown) (no date) (unknown) (unknown) Surgical History (units unknown) (unknown) (unknown) (no date) (unknown) (unknown) Temperature 98.3 F 08/11/22 23:55 (units unknown) (unknown) (unknown) (no date) (unknown) (unknown) Temperature 98.3 F (units unknown) (unknown) (unknown) (no date) (unknown) (unknown) Time Seen by Provider: 08/11/22 23:47 (units unknown) (unknown) (unknown) (no date) (unknown) (unknown) Total Bilirubin 1.0 (0.2-1.3) mg/dL (units unknown) (unknown) (unknown) (no date) (unknown) (unknown) Total Protein 7.8 (6.3-8.2) g/dL (units unknown) (unknown) (unknown) (no date) (unknown) (unknown) U-100 Insulin aspart) (units unknown) (unknown) (unknown) (no date) (unknown) (unknown) Urinary tract infection, Chronic vomiting (units unknown) (unknown) (unknown) (no date) (unknown) (unknown) Vital Signs - 8 hr (units unknown) (unknown) (unknown) (no date) (unknown) (unknown) Vital Signs (units unknown) (unknown) (unknown) (no date) (unknown) (unknown) Vital signs: (units unknown) (unknown) (unknown) (no date) (unknown) (unknown) WBC 18.1 H (4.5-11.0 ) X103/uL (units unknown) (unknown) (unknown) (no date) (unknown) (unknown) [Embedded Image Not Available] (units unknown) (unknown) (unknown) (no date) (unknown) (unknown) alcohol intake frequency: holidays/special occasions only (units unknown) (unknown) (unknown) (no date) (unknown) (unknown) alcohol intake: never (units unknown) (unknown) (unknown) (no date) (unknown) (unknown) household members: spouse (units unknown) (unknown) (unknown) (no date) (unknown) (unknown) insulin aspart U-100 100 unit/mL 1 sliding scale dose SUBCUT 10/04/21 (units unknown) (unknown) (unknown) (no date) (unknown) (unknown) insulin syringes (disposable) 1 mL #500 ea 08/04/20 (units unknown) (unknown) (unknown) (no date) (unknown) (unknown) ketorolac [From Toradol] Allergy Verified 08/10/22 14:43 (units unknown) (unknown) (unknown) (no date) (unknown) (unknown) metoclopramide HCl 5 mg/5 mL oral See Rx Instructions .Route 01/28/22 (units unknown) (unknown) (unknown) (no date) (unknown) (unknown) mg-trimethoprim 160 mg tablet (units unknown) (unknown) (unknown) (no date) (unknown) (unknown) pantoprazole 40 mg tablet,delayed 40 mg PO BID #30 tabs 02/07/22 (units unknown) (unknown) (unknown) (no date) (unknown) (unknown) promethazine 12.5 mg tablet 12.5 mg PO BID PRN nausea and 08/11/22 (units unknown) (unknown) (unknown) (no date) (unknown) (unknown) promethazine 12.5 mg tablet 12.5 mg PO BID PRN sedation #14 08/10/22 (units unknown) (unknown) (unknown) (no date) (unknown) (unknown) promethazine 25 mg rectal 25 mg PA Q4-6H PRN Nausea And 01/27/22 02/07/22 (units unknown) (unknown) (unknown) (no date) (unknown) (unknown) release (units unknown) (unknown) (unknown) (no date) (unknown) (unknown) rizatriptan 10 mg tablet (Maxalt) See Rx Instructions PO .COMPLEX 01/29/22 (units unknown) (unknown) (unknown) (no date) (unknown) (unknown) solution .COMPLEX #473 mL (units unknown) (unknown) (unknown) (no date) (unknown) (unknown) subcutaneous solutio n (Novolog USEASDIRECTD #10 mL (units unknown) (unknown) (unknown) (no date) (unknown) (unknown) sulfamethoxazole 800 1 tab PO BID 10 days #20 tabs 08/10/22 (units unknown) (unknown) (unknown) (no date) (unknown) (unknown) sulfamethoxazole 800 1 tab PO Q12H 10 days #20 tabs 08/11/22 (units unknown) (unknown) (unknown) (no date) (unknown) (unknown) suppository ([facility]) Vomiting (units unknown) (unknown) (unknown) (no date) (unknown) (unknown) tabs (units unknown) (unknown) (unknown) (no date) (unknown) (unknown) tobacco type: vaping (units unknown) (unknown) (unknown) (no date) (unknown) (unknown) vomiting #14 tabs (units unknown) (unknown) Result panel 1605 (unknown) (no date) (unknown) (unknown) Negative (units unknown) (unknown) Result panel 1606 (unknown) (no date) (unknown) (unknown) (no value) (units unknown) (unknown) (unknown) (no date) (unknown) (unknown) #60 tabs (units unknown) (unknown) (unknown) (no date) (unknown) (unknown) #: [id number] (units unknown) (unknown) (unknown) (no date) (unknown) (unknown) > 60 ml/min (unknown) (unknown) (no date) (unknown) (unknown) > 60 ml/min (unknown) (unknown) (no date) (unknown) (unknown) < 10 mg/dl (unknown) (unknown) (no date) (unknown) (unknown) < 10 mg/dl (unknown) (unknown) (no date) (unknown) (unknown) <Electronically signed by Demetrius Krause D.O.> (units unknown) (unknown) (unknown) (no date) (unknown) (unknown) (Bactrim DS) (units unknown) (unknown) (unknown) (no date) (unknown) (unknown) 0.19 ng/ml (unknown) (unknown) (no date) (unknown) (unknown) 0.19 ng/ml (unknown) (unknown) (no date) (unknown) (unknown) 0.56 mg/dl (unknown) (unknown) (no date) (unknown) (unknown) 00:06 00:06 00:06 (units unknown) (unknown) (unknown) (no date) (unknown) (unknown) 08/11/22 23:58 (units unknown) (unknown) (unknown) (no date) (unknown) (unknown) 08/11/22 (units unknown) (unknown) (unknown) (no date) (unknown) (unknown) 08/12/22 0045 (units unknown) (unknown) (unknown) (no date) (unknown) (unknown) 08/12/22 00:06 (units unknown) (unknown) (unknown) (no date) (unknown) (unknown) 08/12/22 00:33 (units unknown) (unknown) (unknown) (no date) (unknown) (unknown) 08/12/22 08/12/22 08/12/22 Range/Units (units unknown) (unknown) (unknown) (no date) (unknown) (unknown) 1.0 mg/dl (unknown) (unknown) (no date) (unknown) (unknown) 1.5 (units unknown) (unknown) (unknown) (no date) (unknown) (unknown) 1.8 mg/dl (unknown) (unknown) (no date) (unknown) (unknown) 115 u/l (unknown) (unknown) (no date) (unknown) (unknown) 12 mg/dl (unknown) (unknown) (no date) (unknown) (unknown) 138 mmol/l (unknown) (unknown) (no date) (unknown) (unknown) 19 mmol/l (unknown) (unknown) (no date) (unknown) (unknown) 20 iu/l (unknown) (unknown) (no date) (unknown) (unknown) 21.4 (units unknown) (unknown) (unknown) (no date) (unknown) (unknown) 23:55 (units unknown) (unknown) (unknown) (no date) (unknown) (unknown) 24 u/l (unknown) (unknown) (no date) (unknown) (unknown) 3.1 g/dl (unknown) (unknown) (no date) (unknown) (unknown) 3.1 mg/dl (unknown) (unknown) (no date) (unknown) (unknown) 3.3 mmol/l (unknown) (unknown) (no date) (unknown) (unknown) 31 iu/l (unknown) (unknown) (no date) (unknown) (unknown) 4.7 g/dl (unknown) (unknown) (no date) (unknown) (unknown) 5.09 mmol/l (unknown) (unknown) (no date) (unknown) (unknown) 5.09 mmol/l (unknown) (unknown) (no date) (unknown) (unknown) 7.8 g/dl (unknown) (unknown) (no date) (unknown) (unknown) 8.7 mg/dl (unknown) (unknown) (no date) (unknown) (unknown) 92 mg/dl (unknown) (unknown) (no date) (unknown) (unknown) 92 mg/dl (unknown) (unknown) (no date) (unknown) (unknown) 99 mmol/l (unknown) (unknown) (no date) (unknown) (unknown) ALT 20 (<35) IU/L (units unknown) (unknown) (unknown) (no date) (unknown) (unknown) AST 31 (14-36) IU/L (units unknown) (unknown) (unknown) (no date) (unknown) (unknown) Admit Date/Time: 08/12/22 00:16 (units unknown) (unknown) (unknown) (no date) (unknown) (unknown) Admit Provider: Gracia Smith (units unknown) (unknown) (unknown) (no date) (unknown) (unknown) Age/Sex: 27 / F (units unknown) (unknown) (unknown) (no date) (unknown) (unknown) Albumin 4.7 (3.5-5.0 ) g/dL (units unknown) (unknown) (unknown) (no date) (unknown) (unknown) Albumin/Globulin Ratio 1.5 (1.0-2.8) (units unknown) (unknown) (unknown) (no date) (unknown) (unknown) Alkaline Phosphatase 115 (38-126) U/L (units unknown) (unknown) (unknown) (no date) (unknown) (unknown) Allergies (units unknown) (unknown) (unknown) (no date) (unknown) (unknown) Allergy/AdvReac Type Severity Reaction Status Date / Time (units unknown) (unknown) (unknown) (no date) (unknown) (unknown) Anemia (units unknown) (unknown) (unknown) (no date) (unknown) (unknown) Attestation: I reviewed the patient's lab results. (units unknown) (unknown) (unknown) (no date) (unknown) (unknown) Attestation: I reviewed the patient's medical records. (units unknown) (unknown) (unknown) (no date) (unknown) (unknown) BUN 12 (7-17) mg/dL (units unknown) (unknown) (unknown) (no date) (unknown) (unknown) BUN/Creatinine Ratio 21.4 (6-22) (units unknown) (unknown) (unknown) (no date) (unknown) (unknown) Baso # (Auto) 0 (0-100) /uL (units unknown) (unknown) (unknown) (no date) (unknown) (unknown) Baso % (Auto) 0.1 (0-2) % (units unknown) (unknown) (unknown) (no date) (unknown) (unknown) Blood Culture Stat (units unknown) (unknown) (unknown) (no date) (unknown) (unknown) Blood Pressure 143/8 3 H 08/11/22 23:55 (units unknown) (unknown) (unknown) (no date) (unknown) (unknown) Blood Pressure 143/8 3 H (units unknown) (unknown) (unknown) (no date) (unknown) (unknown) COVID19 -Nasal RAPID Stat (units unknown) (unknown) (unknown) (no date) (unknown) (unknown) Calcium 8.7 (8.4-10.2) mg/dL (units unknown) (unknown) (unknown) (no date) (unknown) (unknown) Carbon Dioxide 19 L (22-32) mmol/L (units unknown) (unknown) (unknown) (no date) (unknown) (unknown) Cardio (units unknown) (unknown) (unknown) (no date) (unknown) (unknown) Ceftriaxone Sodium 1,000 mg/ (Sodium Chloride) 100 mls @ 200 mls/hr IV NOW ONE (units unknown) (unknown) (unknown) (no date) (unknown) (unknown) Chief complaint: Nausea/Vomiting/Diarr hea (units unknown) (unknown) (unknown) (no date) (unknown) (unknown) Chloride 99 (98-107) mmol/L (units unknown) (unknown) (unknown) (no date) (unknown) (unknown) Clinical Impression: (units unknown) (unknown) (unknown) (no date) (unknown) (unknown) Complete Blood Count AUTO DIFF Stat (units unknown) (unknown) (unknown) (no date) (unknown) (unknown) Comprehensive Metabolic Panel Stat (units unknown) (unknown) (unknown) (no date) (unknown) (unknown) Const (units unknown) (unknown) (unknown) (no date) (unknown) (unknown) Course (units unknown) (unknown) (unknown) (no date) (unknown) (unknown) Creatinine 0.56 (0.52-1.04) mg/dL (units unknown) (unknown) (unknown) (no date) (unknown) (unknown) Cyclic vomiting syndrome (units unknown) (unknown) (unknown) (no date) (unknown) (unknown) DKA (diabetic ketoacidoses) (units unknown) (unknown) (unknown) (no date) (unknown) (unknown) : 1995 Acct:[id number] (units unknown) (unknown) (unknown) (no date) (unknown) (unknown) Date of Service: 08/12/22 (units unknown) (unknown) (unknown) (no date) (unknown) (unknown) Departure (units unknown) (unknown) (unknown) (no date) (unknown) (unknown) Diabetes mellitus, type I (units unknown) (unknown) (unknown) (no date) (unknown) (unknown) Discharge Plan (units unknown) (unknown) (unknown) (no date) (unknown) (unknown) Discontinued Medications (units unknown) (unknown) (unknown) (no date) (unknown) (unknown) Documented By: SB (units unknown) (unknown) (unknown) (no date) (unknown) (unknown) ED Orders (units unknown) (unknown) (unknown) (no date) (unknown) (unknown) ER Physician: Demetrius Krause D.O. (units unknown) (unknown) (unknown) (no date) (unknown) (unknown) Effort + Inspection: tachypneic (units unknown) (unknown) (unknown) (no date) (unknown) (unknown) Emergency Report (units unknown) (unknown) (unknown) (no date) (unknown) (unknown) Eos # (Auto) 0 (0-450) /uL (units unknown) (unknown) (unknown) (no date) (unknown) (unknown) Eos % (Auto) 0.0 L (2-4) % (units unknown) (unknown) (unknown) (no date) (unknown) (unknown) Estimated GFR > 60 (>60) mL/min (units unknown) (unknown) (unknown) (no date) (unknown) (unknown) Ethanol (ETOH) Stat (units unknown) (unknown) (unknown) (no date) (unknown) (unknown) Ethyl Alcohol < 10 ( - 10) mg/dL (units unknown) (unknown) (unknown) (no date) (unknown) (unknown) Exam (units unknown) (unknown) (unknown) (no date) (unknown) (unknown) Extrem (units unknown) (unknown) (unknown) (no date) (unknown) (unknown) Family History (units unknown) (unknown) (unknown) (no date) (unknown) (unknown) Father Healthy adult (units unknown) (unknown) (unknown) (no date) (unknown) (unknown) GI (units unknown) (unknown) (unknown) (no date) (unknown) (unknown) Gastroparesis (units unknown) (unknown) (unknown) (no date) (unknown) (unknown) General (units unknown) (unknown) (unknown) (no date) (unknown) (unknown) General: anxious (units unknown) (unknown) (unknown) (no date) (unknown) (unknown) General: no rashes o r lesions noted (units unknown) (unknown) (unknown) (no date) (unknown) (unknown) General: normal to inspection (units unknown) (unknown) (unknown) (no date) (unknown) (unknown) Generally not feelin g very well. (units unknown) (unknown) (unknown) (no date) (unknown) (unknown) Globulin 3.1 (1.7-4.1) g/dL (units unknown) (unknown) (unknown) (no date) (unknown) (unknown) Glucose 92 (70-100) mg/dL (units unknown) (unknown) (unknown) (no date) (unknown) (unknown) HENMT (units unknown) (unknown) (unknown) (no date) (unknown) (unknown) HPI - Nausea/Vomiting/Diarr hea (units unknown) (unknown) (unknown) (no date) (unknown) (unknown) HPI Narrative: (units unknown) (unknown) (unknown) (no date) (unknown) (unknown) Haloperidol (Haloperidol 5 Mg/Ml Vial) 5 mg IV NOW ONE (units unknown) (unknown) (unknown) (no date) (unknown) (unknown) Hct 34.9 L (36-46) % (units unknown) (unknown) (unknown) (no date) (unknown) (unknown) Head: normal to inspection and normocephalic (units unknown) (unknown) (unknown) (no date) (unknown) (unknown) Hgb 11.4 L (12.0-16.0) g/dL (units unknown) (unknown) (unknown) (no date) (unknown) (unknown) History of Present Illness (units unknown) (unknown) (unknown) (no date) (unknown) (unknown) Home Medications (units unknown) (unknown) (unknown) (no date) (unknown) (unknown) Initial Vital Signs (units unknown) (unknown) (unknown) (no date) (unknown) (unknown) Initial Vital Signs: (units unknown) (unknown) (unknown) (no date) (unknown) (unknown) Inspection: non-distended (units unknown) (unknown) (unknown) (no date) (unknown) (unknown) Insulin dependent diabetes mellitus (units unknown) (unknown) (unknown) (no date) (unknown) (unknown) [address] [address] (units unknown) (unknown) (unknown) (no date) (unknown) (unknown) Ketones (Beta-Hydroxybutyrate ) Stat (units unknown) (unknown) (unknown) (no date) (unknown) (unknown) Lab Data (units unknown) (unknown) (unknown) (no date) (unknown) (unknown) Lab Results (units unknown) (unknown) (unknown) (no date) (unknown) (unknown) Labs: (units unknown) (unknown) (unknown) (no date) (unknown) (unknown) Lactate (Lactic Acid ) Stat (units unknown) (unknown) (unknown) (no date) (unknown) (unknown) Lactate 2.3 H (0.7-2.1) mmol/L (units unknown) (unknown) (unknown) (no date) (unknown) (unknown) Last Admin: 08/12/22 00:19 Dose: 200 mls/hr (units unknown) (unknown) (unknown) (no date) (unknown) (unknown) Last Admin: 08/12/22 00:19 Dose: 5 mg (units unknown) (unknown) (unknown) (no date) (unknown) (unknown) Limitations: no limitations (units unknown) (unknown) (unknown) (no date) (unknown) (unknown) Lipase 24 (23-300) U/L (units unknown) (unknown) (unknown) (no date) (unknown) (unknown) Lipase Stat (units unknown) (unknown) (unknown) (no date) (unknown) (unknown) Lymph # (Auto) 3200 (0107-2480) /uL (units unknown) (unknown) (unknown) (no date) (unknown) (unknown) Lymph % (Auto) 17.7 L (25-40) % (units unknown) (unknown) (unknown) (no date) (unknown) (unknown) MCH 25.5 L (26-34) PG (units unknown) (unknown) (unknown) (no date) (unknown) (unknown) MCHC 32.7 (30-36) % (units unknown) (unknown) (unknown) (no date) (unknown) (unknown) MCV 78.0 L (80-100) fL (units unknown) (unknown) (unknown) (no date) (unknown) (unknown) MDM - Nausea/Vomiting/Diarr hea (units unknown) (unknown) (unknown) (no date) (unknown) (unknown) MDM Narrative (units unknown) (unknown) (unknown) (no date) (unknown) (unknown) Magnesium 1.8 (1.6-2.3) mg/dL (units unknown) (unknown) (unknown) (no date) (unknown) (unknown) Magnesium Stat (units unknown) (unknown) (unknown) (no date) (unknown) (unknown) Medical History (units unknown) (unknown) (unknown) (no date) (unknown) (unknown) Medical Records (units unknown) (unknown) (unknown) (no date) (unknown) (unknown) Medical decision making narrative: (units unknown) (unknown) (unknown) (no date) (unknown) (unknown) Medication Instructions Recorded Confirmed (units unknown) (unknown) (unknown) (no date) (unknown) (unknown) Medication Instructions Recorded (units unknown) (unknown) (unknown) (no date) (unknown) (unknown) Migraine headache with aura (units unknown) (unknown) (unknown) (no date) (unknown) (unknown) Mode of arrival: Ambulatory (units unknown) (unknown) (unknown) (no date) (unknown) (unknown) [place] # (Auto) 900 (0-900) /uL (units unknown) (unknown) (unknown) (no date) (unknown) (unknown) [place] % (Auto) 4.8 (3-14) % (units unknown) (unknown) (unknown) (no date) (unknown) (unknown) Mother Hypertension (units unknown) (unknown) (unknown) (no date) (unknown) (unknown) Myopia (units unknown) (unknown) (unknown) (no date) (unknown) (unknown) Neut # (Auto) 10179 H (9606-4362) /uL (units unknown) (unknown) (unknown) (no date) (unknown) (unknown) Neut % (Auto) 77.4 H (50-75) % (units unknown) (unknown) (unknown) (no date) (unknown) (unknown) Ordered: (units unknown) (unknown) (unknown) (no date) (unknown) (unknown) Orders (units unknown) (unknown) (unknown) (no date) (unknown) (unknown) Other: (units unknown) (unknown) (unknown) (no date) (unknown) (unknown) Oxygen Delivery Method Room Air 08/11/22 23:55 (units unknown) (unknown) (unknown) (no date) (unknown) (unknown) Oxygen Delivery Method Room Air (units unknown) (unknown) (unknown) (no date) (unknown) (unknown) Pancreatitis (units unknown) (unknown) (unknown) (no date) (unknown) (unknown) Patient Disposition: Admitted As Inpatient (units unknown) (unknown) (unknown) (no date) (unknown) (unknown) Patient History (units unknown) (unknown) (unknown) (no date) (unknown) (unknown) Patient has not received antibiotics since her 1st visit here in the ER. (units unknown) (unknown) (unknown) (no date) (unknown) (unknown) Patient is a 27-year-old female. Is a type 1 insulin-dependent diabetic. Also (units unknown) (unknown) (unknown) (no date) (unknown) (unknown) Patient is anxious. Shaking in the room. The shaking is able to be overcome by (units unknown) (unknown) (unknown) (no date) (unknown) (unknown) Patient: Kaur Horton MR (units unknown) (unknown) (unknown) (no date) (unknown) (unknown) Phosphorous Stat (units unknown) (unknown) (unknown) (no date) (unknown) (unknown) Phosphorus 3.1 (2.5-4.5) mg/dL (units unknown) (unknown) (unknown) (no date) (unknown) (unknown) Plt Count 317 (150-400) X103/uL (units unknown) (unknown) (unknown) (no date) (unknown) (unknown) Potassium 3.3 L (3.4-5.1) mmol/L (units unknown) (unknown) (unknown) (no date) (unknown) (unknown) Test Serum,Qual Stat (units unknown) (unknown) (unknown) (no date) (unknown) (unknown) Previous Rx's (units unknown) (unknown) (unknown) (no date) (unknown) (unknown) Procalcitonin Stat (units unknown) (unknown) (unknown) (no date) (unknown) (unknown) Psych (units unknown) (unknown) (unknown) (no date) (unknown) (unknown) Pulse Oximetry 99 08/11/22 23:55 (units unknown) (unknown) (unknown) (no date) (unknown) (unknown) Pulse Oximetry 99 (units unknown) (unknown) (unknown) (no date) (unknown) (unknown) Pulse Rate 123 H 08/11/22 23:55 (units unknown) (unknown) (unknown) (no date) (unknown) (unknown) Pulse Rate 123 H (units unknown) (unknown) (unknown) (no date) (unknown) (unknown) RBC 4.47 (4.0-5.2) X106/uL (units unknown) (unknown) (unknown) (no date) (unknown) (unknown) RDW 15.9 H (11.6-14.8) % (units unknown) (unknown) (unknown) (no date) (unknown) (unknown) ROS Unobtainable: Al l systems reviewed + are unremarkable except as noted in HPI (units unknown) (unknown) (unknown) (no date) (unknown) (unknown) Rate: tachycardic (units unknown) (unknown) (unknown) (no date) (unknown) (unknown) Related Data (units unknown) (unknown) (unknown) (no date) (unknown) (unknown) Resp (units unknown) (unknown) (unknown) (no date) (unknown) (unknown) Respiratory Rate 24 08/11/22 23:55 (units unknown) (unknown) (unknown) (no date) (unknown) (unknown) Respiratory Rate 24 (units unknown) (unknown) (unknown) (no date) (unknown) (unknown) Review of Systems (units unknown) (unknown) (unknown) (no date) (unknown) (unknown) Rocephin administered. Blood cultures obtained. Will administer fluids however (units unknown) (unknown) (unknown) (no date) (unknown) (unknown) She is now having lower back discomfort. Is having abdominal discomfort. (units unknown) (unknown) (unknown) (no date) (unknown) (unknown) Signed By: (units unknown) (unknown) (unknown) (no date) (unknown) (unknown) Skin (units unknown) (unknown) (unknown) (no date) (unknown) (unknown) Smoking Status: Current every day smoker (units unknown) (unknown) (unknown) (no date) (unknown) (unknown) Social History (units unknown) (unknown) (unknown) (no date) (unknown) (unknown) Sodium 138 (137-145) mmol/L (units unknown) (unknown) (unknown) (no date) (unknown) (unknown) Sodium Chloride (Normal Saline 0.9%) 1,000 mls @ 1,000 mls/hr IV BOLUS ONE (units unknown) (unknown) (unknown) (no date) (unknown) (unknown) Source: patient (units unknown) (unknown) (unknown) (no date) (unknown) (unknown) Stated complaint: vomiting, back pain was seen earlier today (units unknown) (unknown) (unknown) (no date) (unknown) (unknown) Status post appendectomy (units unknown) (unknown) (unknown) (no date) (unknown) (unknown) Stop: 08/12/22 00:07 (units unknown) (unknown) (unknown) (no date) (unknown) (unknown) Stop: 08/12/22 00:08 (units unknown) (unknown) (unknown) (no date) (unknown) (unknown) Stop: 08/12/22 01:34 (units unknown) (unknown) (unknown) (no date) (unknown) (unknown) Substance Use Type: marijuana (units unknown) (unknown) (unknown) (no date) (unknown) (unknown) Surgical History (units unknown) (unknown) (unknown) (no date) (unknown) (unknown) Temperature 98.3 F 08/11/22 23:55 (units unknown) (unknown) (unknown) (no date) (unknown) (unknown) Temperature 98.3 F (units unknown) (unknown) (unknown) (no date) (unknown) (unknown) This is the patient' s 3rd visit in approximately 48 hours. Review the urine (units unknown) (unknown) (unknown) (no date) (unknown) (unknown) Time Seen by Provider: 08/11/22 23:47 (units unknown) (unknown) (unknown) (no date) (unknown) (unknown) Total Bilirubin 1.0 (0.2-1.3) mg/dL (units unknown) (unknown) (unknown) (no date) (unknown) (unknown) Total Protein 7.8 (6.3-8.2) g/dL (units unknown) (unknown) (unknown) (no date) (unknown) (unknown) U-100 Insulin aspart) (units unknown) (unknown) (unknown) (no date) (unknown) (unknown) Urinary tract infection, Chronic vomiting (units unknown) (unknown) (unknown) (no date) (unknown) (unknown) Vital Signs - 8 hr (units unknown) (unknown) (unknown) (no date) (unknown) (unknown) Vital Signs (units unknown) (unknown) (unknown) (no date) (unknown) (unknown) Vital signs: (units unknown) (unknown) (unknown) (no date) (unknown) (unknown) WBC 18.1 H (4.5-11.0 ) X103/uL (units unknown) (unknown) (unknown) (no date) (unknown) (unknown) [Embedded Image Not Available] (units unknown) (unknown) (unknown) (no date) (unknown) (unknown) able to rest. I did discuss the need for admission with the patient. She (units unknown) (unknown) (unknown) (no date) (unknown) (unknown) administered during the 2nd visit. She was told to picking tech her antibiotics and (units unknown) (unknown) (unknown) (no date) (unknown) (unknown) admit for further evaluation and treatment. Admission to the hospital is (units unknown) (unknown) (unknown) (no date) (unknown) (unknown) alcohol intake frequency: holidays/special occasions only (units unknown) (unknown) (unknown) (no date) (unknown) (unknown) alcohol intake: never (units unknown) (unknown) (unknown) (no date) (unknown) (unknown) and below (units unknown) (unknown) (unknown) (no date) (unknown) (unknown) concern for pyelonephritis given her back discomfort. Patient was given Haldol (units unknown) (unknown) (unknown) (no date) (unknown) (unknown) culture from her 1st visit did show a Gram-negative source but no sensitivities (units unknown) (unknown) (unknown) (no date) (unknown) (unknown) discomfort. Has attempted to take 2 of her oral antibiotics today but has been (units unknown) (unknown) (unknown) (no date) (unknown) (unknown) expressed understanding. (units unknown) (unknown) (unknown) (no date) (unknown) (unknown) for her obvious anxiety upon arrival and this did help her tremendously she was (units unknown) (unknown) (unknown) (no date) (unknown) (unknown) has a history of cyclic vomiting syndrome and also cannabis hyperemesis. Was (units unknown) (unknown) (unknown) (no date) (unknown) (unknown) home. She was discharged home late in the day. She was unable to pick her (units unknown) (unknown) (unknown) (no date) (unknown) (unknown) household members: spouse (units unknown) (unknown) (unknown) (no date) (unknown) (unknown) however she is tried to take them twice today but has been vomiting all day. (units unknown) (unknown) (unknown) (no date) (unknown) (unknown) hypotensive. Discussed the case with VINCE Smith the night hospitalist who will (units unknown) (unknown) (unknown) (no date) (unknown) (unknown) insulin aspart U-100 100 unit/mL 1 sliding scale dose SUBCUT 10/04/21 (units unknown) (unknown) (unknown) (no date) (unknown) (unknown) insulin syringes (disposable) 1 mL #500 ea 08/04/20 (units unknown) (unknown) (unknown) (no date) (unknown) (unknown) ketorolac [From Toradol] Allergy Verified 08/10/22 14:43 (units unknown) (unknown) (unknown) (no date) (unknown) (unknown) medications up overnight because there were no pharmacies open. She came back (units unknown) (unknown) (unknown) (no date) (unknown) (unknown) metoclopramide HCl 5 mg/5 mL oral See Rx Instructions .Route 01/28/22 (units unknown) (unknown) (unknown) (no date) (unknown) (unknown) mg-trimethoprim 160 mg tablet (units unknown) (unknown) (unknown) (no date) (unknown) (unknown) nausea medication. After discharge stated she picked up these medications (units unknown) (unknown) (unknown) (no date) (unknown) (unknown) or speciation noted. Patient is tachycardic and tachypneic. Was having back (units unknown) (unknown) (unknown) (no date) (unknown) (unknown) pantoprazole 40 mg tablet,delayed 40 mg PO BID #30 tabs 02/07/22 (units unknown) (unknown) (unknown) (no date) (unknown) (unknown) promethazine 12.5 mg tablet 12.5 mg PO BID PRN nausea and 08/11/22 (units unknown) (unknown) (unknown) (no date) (unknown) (unknown) promethazine 12.5 mg tablet 12.5 mg PO BID PRN sedation #14 08/10/22 (units unknown) (unknown) (unknown) (no date) (unknown) (unknown) promethazine 25 mg rectal 25 mg PA Q4-6H PRN Nausea And 01/27/22 02/07/22 (units unknown) (unknown) (unknown) (no date) (unknown) (unknown) release (units unknown) (unknown) (unknown) (no date) (unknown) (unknown) required given the patient's inability to tolerate her oral antibiotics and the (units unknown) (unknown) (unknown) (no date) (unknown) (unknown) rizatriptan 10 mg tablet (Maxalt) See Rx Instructions PO .COMPLEX 01/29/22 (units unknown) (unknown) (unknown) (no date) (unknown) (unknown) seen here in the emergency department 2 days ago. Was diagnosed with a urinary (units unknown) (unknown) (unknown) (no date) (unknown) (unknown) showing a Gram-negative source but no sensitivities. No antibiotics were (units unknown) (unknown) (unknown) (no date) (unknown) (unknown) solution .COMPLEX #473 mL (units unknown) (unknown) (unknown) (no date) (unknown) (unknown) subcutaneous solutio n (Novolog USEASDIRECTD #10 mL (units unknown) (unknown) (unknown) (no date) (unknown) (unknown) sulfamethoxazole 800 1 tab PO BID 10 days #20 tabs 08/10/22 (units unknown) (unknown) (unknown) (no date) (unknown) (unknown) sulfamethoxazole 800 1 tab PO Q12H 10 days #20 tabs 08/11/22 (units unknown) (unknown) (unknown) (no date) (unknown) (unknown) suppository (Promethegan) Vomiting (units unknown) (unknown) (unknown) (no date) (unknown) (unknown) tabs (units unknown) (unknown) (unknown) (no date) (unknown) (unknown) the patient. (units unknown) (unknown) (unknown) (no date) (unknown) (unknown) tobacco type: vaping (units unknown) (unknown) (unknown) (no date) (unknown) (unknown) tract infection. Received antibiotics and nausea medication. Was discharged (units unknown) (unknown) (unknown) (no date) (unknown) (unknown) vomiting #14 tabs (units unknown) (unknown) (unknown) (no date) (unknown) (unknown) vomiting. Patient no t in DKA. Has a blood sugar of 92 during this visit. (units unknown) (unknown) (unknown) (no date) (unknown) (unknown) vomiting. She did have a urine culture performed at that 1st visit which is (units unknown) (unknown) (unknown) (no date) (unknown) (unknown) we will hold on 30 cc/kilogram as the patient is not altered and is not (units unknown) (unknown) (unknown) (no date) (unknown) (unknown) yesterday morning (approximately 12-18 hours ago) because she was still (units unknown) (unknown) Result panel 1607 (unknown) (no date) (unknown) (unknown) Negative (units unknown) (unknown) (unknown) (no date) (unknown) (unknown) Negative (units unknown) (unknown) Result panel 1608 (unknown) (no date) (unknown) (unknown) (no value) (units unknown) (unknown) (unknown) (no date) (unknown) (unknown) #60 tabs (units unknown) (unknown) (unknown) (no date) (unknown) (unknown) #: [id number] (units unknown) (unknown) (unknown) (no date) (unknown) (unknown) (Bactrim DS) (units unknown) (unknown) (unknown) (no date) (unknown) (unknown) (past 8 hours): (units unknown) (unknown) (unknown) (no date) (unknown) (unknown) 00:06 00:06 00:06 (units unknown) (unknown) (unknown) (no date) (unknown) (unknown) 00:06 00:30 (units unknown) (unknown) (unknown) (no date) (unknown) (unknown) 01:00 (units unknown) (unknown) (unknown) (no date) (unknown) (unknown) 08/11/22 (units unknown) (unknown) (unknown) (no date) (unknown) (unknown) 08/12/22 00:06 (units unknown) (unknown) (unknown) (no date) (unknown) (unknown) 08/12/22 08/12/22 08/12/22 (units unknown) (unknown) (unknown) (no date) (unknown) (unknown) 08/12/22 08/12/22 (units unknown) (unknown) (unknown) (no date) (unknown) (unknown) 02/07/22 Rx (units unknown) (unknown) (unknown) (no date) (unknown) (unknown) 23:55 08/12/22 (units unknown) (unknown) (unknown) (no date) (unknown) (unknown) ALT 20 (units unknown) (unknown) (unknown) (no date) (unknown) (unknown) ALT (units unknown) (unknown) (unknown) (no date) (unknown) (unknown) AST 31 (units unknown) (unknown) (unknown) (no date) (unknown) (unknown) AST (units unknown) (unknown) (unknown) (no date) (unknown) (unknown) Age/Sex: 27 / F (units unknown) (unknown) (unknown) (no date) (unknown) (unknown) Albumin 4.7 (units unknown) (unknown) (unknown) (no date) (unknown) (unknown) Albumin (units unknown) (unknown) (unknown) (no date) (unknown) (unknown) Albumin/Globulin Ratio 1.5 (units unknown) (unknown) (unknown) (no date) (unknown) (unknown) Albumin/Globulin Ratio (units unknown) (unknown) (unknown) (no date) (unknown) (unknown) Alkaline Phosphatase 115 (units unknown) (unknown) (unknown) (no date) (unknown) (unknown) Alkaline Phosphatase (units unknown) (unknown) (unknown) (no date) (unknown) (unknown) Allergies (units unknown) (unknown) (unknown) (no date) (unknown) (unknown) Allergy/AdvReac Type Severity Reaction Status Date / Time (units unknown) (unknown) (unknown) (no date) (unknown) (unknown) Anemia (units unknown) (unknown) (unknown) (no date) (unknown) (unknown) BUN 12 (units unknown) (unknown) (unknown) (no date) (unknown) (unknown) BUN (units unknown) (unknown) (unknown) (no date) (unknown) (unknown) BUN/Creatinine Ratio 21.4 (units unknown) (unknown) (unknown) (no date) (unknown) (unknown) BUN/Creatinine Ratio (units unknown) (unknown) (unknown) (no date) (unknown) (unknown) Baso # (Auto) 0 (units unknown) (unknown) (unknown) (no date) (unknown) (unknown) Baso # (Auto) (units unknown) (unknown) (unknown) (no date) (unknown) (unknown) Baso % (Auto) 0.1 (units unknown) (unknown) (unknown) (no date) (unknown) (unknown) Baso % (Auto) (units unknown) (unknown) (unknown) (no date) (unknown) (unknown) Blood Pressure 143/8 3 H (units unknown) (unknown) (unknown) (no date) (unknown) (unknown) Calcium 8.7 (units unknown) (unknown) (unknown) (no date) (unknown) (unknown) Calcium (units unknown) (unknown) (unknown) (no date) (unknown) (unknown) Carbon Dioxide 19 L (units unknown) (unknown) (unknown) (no date) (unknown) (unknown) Carbon Dioxide (units unknown) (unknown) (unknown) (no date) (unknown) (unknown) Chief complaint: vomiting, back pain was seen earlier today (units unknown) (unknown) (unknown) (no date) (unknown) (unknown) Chloride 99 (units unknown) (unknown) (unknown) (no date) (unknown) (unknown) Chloride (units unknown) (unknown) (unknown) (no date) (unknown) (unknown) Creatinine 0.56 (units unknown) (unknown) (unknown) (no date) (unknown) (unknown) Creatinine (units unknown) (unknown) (unknown) (no date) (unknown) (unknown) Cyclic vomiting syndrome (units unknown) (unknown) (unknown) (no date) (unknown) (unknown) DKA (diabetic ketoacidoses) (units unknown) (unknown) (unknown) (no date) (unknown) (unknown) : 1995 Acct:[id number] (units unknown) (unknown) (unknown) (no date) (unknown) (unknown) Date Patient Seen: 08/12/22 (units unknown) (unknown) (unknown) (no date) (unknown) (unknown) Date of Service: 08/12/22 (units unknown) (unknown) (unknown) (no date) (unknown) (unknown) Diabetes mellitus, type I (units unknown) (unknown) (unknown) (no date) (unknown) (unknown) Eos # (Auto) 0 (units unknown) (unknown) (unknown) (no date) (unknown) (unknown) Eos # (Auto) (units unknown) (unknown) (unknown) (no date) (unknown) (unknown) Eos % (Auto) 0.0 L (units unknown) (unknown) (unknown) (no date) (unknown) (unknown) Eos % (Auto) (units unknown) (unknown) (unknown) (no date) (unknown) (unknown) Estimated GFR > 60 (units unknown) (unknown) (unknown) (no date) (unknown) (unknown) Estimated GFR (units unknown) (unknown) (unknown) (no date) (unknown) (unknown) Ethyl Alcohol < 10 (units unknown) (unknown) (unknown) (no date) (unknown) (unknown) Ethyl Alcohol (units unknown) (unknown) (unknown) (no date) (unknown) (unknown) Exam (units unknown) (unknown) (unknown) (no date) (unknown) (unknown) Family History (units unknown) (unknown) (unknown) (no date) (unknown) (unknown) Father Healthy adult (units unknown) (unknown) (unknown) (no date) (unknown) (unknown) Gastroparesis (units unknown) (unknown) (unknown) (no date) (unknown) (unknown) Globulin 3.1 (units unknown) (unknown) (unknown) (no date) (unknown) (unknown) Globulin (units unknown) (unknown) (unknown) (no date) (unknown) (unknown) Glucose 92 (units unknown) (unknown) (unknown) (no date) (unknown) (unknown) Glucose (units unknown) (unknown) (unknown) (no date) (unknown) (unknown) Hct 34.9 L (units unknown) (unknown) (unknown) (no date) (unknown) (unknown) Hct (units unknown) (unknown) (unknown) (no date) (unknown) (unknown) Hgb 11.4 L (units unknown) (unknown) (unknown) (no date) (unknown) (unknown) Hgb (units unknown) (unknown) (unknown) (no date) (unknown) (unknown) History + Physical Report (units unknown) (unknown) (unknown) (no date) (unknown) (unknown) History of Present Illness (units unknown) (unknown) (unknown) (no date) (unknown) (unknown) History (units unknown) (unknown) (unknown) (no date) (unknown) (unknown) Home Medications and Allergies (units unknown) (unknown) (unknown) (no date) (unknown) (unknown) Home Medications (units unknown) (unknown) (unknown) (no date) (unknown) (unknown) Insulin dependent diabetes mellitus (units unknown) (unknown) (unknown) (no date) (unknown) (unknown) [address] [address] (units unknown) (unknown) (unknown) (no date) (unknown) (unknown) Kaur Morris is 27-year-old female daily smoker (vaping), hx of marijuana daily (units unknown) (unknown) (unknown) (no date) (unknown) (unknown) Ketones 5.09 H (units unknown) (unknown) (unknown) (no date) (unknown) (unknown) Ketones (units unknown) (unknown) (unknown) (no date) (unknown) (unknown) Laboratory Results - last 24 hr (units unknown) (unknown) (unknown) (no date) (unknown) (unknown) Labs (units unknown) (unknown) (unknown) (no date) (unknown) (unknown) Labs: (units unknown) (unknown) (unknown) (no date) (unknown) (unknown) Lactate 2.3 H (units unknown) (unknown) (unknown) (no date) (unknown) (unknown) Lactate (units unknown) (unknown) (unknown) (no date) (unknown) (unknown) Lipase 24 (units unknown) (unknown) (unknown) (no date) (unknown) (unknown) Lipase (units unknown) (unknown) (unknown) (no date) (unknown) (unknown) Lymph # (Auto) 3200 (units unknown) (unknown) (unknown) (no date) (unknown) (unknown) Lymph # (Auto) (units unknown) (unknown) (unknown) (no date) (unknown) (unknown) Lymph % (Auto) 17.7 L (units unknown) (unknown) (unknown) (no date) (unknown) (unknown) Lymph % (Auto) (units unknown) (unknown) (unknown) (no date) (unknown) (unknown) MCH 25.5 L (units unknown) (unknown) (unknown) (no date) (unknown) (unknown) MCH (units unknown) (unknown) (unknown) (no date) (unknown) (unknown) MCHC 32.7 (units unknown) (unknown) (unknown) (no date) (unknown) (unknown) MCHC (units unknown) (unknown) (unknown) (no date) (unknown) (unknown) MCV 78.0 L (units unknown) (unknown) (unknown) (no date) (unknown) (unknown) MCV (units unknown) (unknown) (unknown) (no date) (unknown) (unknown) Magnesium 1.8 (units unknown) (unknown) (unknown) (no date) (unknown) (unknown) Magnesium (units unknown) (unknown) (unknown) (no date) (unknown) (unknown) Medical History (units unknown) (unknown) (unknown) (no date) (unknown) (unknown) Medication Instructions Recorded Confirmed Type (units unknown) (unknown) (unknown) (no date) (unknown) (unknown) Meds (units unknown) (unknown) (unknown) (no date) (unknown) (unknown) Migraine headache with aura (units unknown) (unknown) (unknown) (no date) (unknown) (unknown) O'Brien # (Auto) 900 (units unknown) (unknown) (unknown) (no date) (unknown) (unknown) O'Brien # (Auto) (units unknown) (unknown) (unknown) (no date) (unknown) (unknown) O'Brien % (Auto) 4.8 (units unknown) (unknown) (unknown) (no date) (unknown) (unknown) O'Brien % (Auto) (units unknown) (unknown) (unknown) (no date) (unknown) (unknown) Mother Hypertension (units unknown) (unknown) (unknown) (no date) (unknown) (unknown) Myopia (units unknown) (unknown) (unknown) (no date) (unknown) (unknown) Narrative: (units unknown) (unknown) (unknown) (no date) (unknown) (unknown) Neut # (Auto) 30965 H (units unknown) (unknown) (unknown) (no date) (unknown) (unknown) Neut # (Auto) (units unknown) (unknown) (unknown) (no date) (unknown) (unknown) Neut % (Auto) 77.4 H (units unknown) (unknown) (unknown) (no date) (unknown) (unknown) Neut % (Auto) (units unknown) (unknown) (unknown) (no date) (unknown) (unknown) Objective (units unknown) (unknown) (unknown) (no date) (unknown) (unknown) Oxygen Delivery Method Room Air (units unknown) (unknown) (unknown) (no date) (unknown) (unknown) PFSH (units unknown) (unknown) (unknown) (no date) (unknown) (unknown) Pancreatitis (units unknown) (unknown) (unknown) (no date) (unknown) (unknown) Patient: Kaur Horton MR (units unknown) (unknown) (unknown) (no date) (unknown) (unknown) Phosphorus 3.1 (units unknown) (unknown) (unknown) (no date) (unknown) (unknown) Phosphorus (units unknown) (unknown) (unknown) (no date) (unknown) (unknown) Plt Count 317 (units unknown) (unknown) (unknown) (no date) (unknown) (unknown) Plt Count (units unknown) (unknown) (unknown) (no date) (unknown) (unknown) Potassium 3.3 L (units unknown) (unknown) (unknown) (no date) (unknown) (unknown) Potassium (units unknown) (unknown) (unknown) (no date) (unknown) (unknown) Procalcitonin 0.19 (units unknown) (unknown) (unknown) (no date) (unknown) (unknown) Procalcitonin (units unknown) (unknown) (unknown) (no date) (unknown) (unknown) Provider: Gracia Smith ORE CHARGER-BC (units unknown) (unknown) (unknown) (no date) (unknown) (unknown) Pulse Oximetry 99 98 (units unknown) (unknown) (unknown) (no date) (unknown) (unknown) Pulse Rate 123 H 85 (units unknown) (unknown) (unknown) (no date) (unknown) (unknown) RBC 4.47 (units unknown) (unknown) (unknown) (no date) (unknown) (unknown) RBC (units unknown) (unknown) (unknown) (no date) (unknown) (unknown) RDW 15.9 H (units unknown) (unknown) (unknown) (no date) (unknown) (unknown) RDW (units unknown) (unknown) (unknown) (no date) (unknown) (unknown) Respiratory Rate 24 16 (units unknown) (unknown) (unknown) (no date) (unknown) (unknown) Rx (units unknown) (unknown) (unknown) (no date) (unknown) (unknown) SARS-CoV-2 (PCR) Negative (units unknown) (unknown) (unknown) (no date) (unknown) (unknown) SARS-CoV-2 (PCR) (units unknown) (unknown) (unknown) (no date) (unknown) (unknown) Serum , Sushil l Negative (units unknown) (unknown) (unknown) (no date) (unknown) (unknown) Serum , Qual (units unknown) (unknown) (unknown) (no date) (unknown) (unknown) Signed By: (units unknown) (unknown) (unknown) (no date) (unknown) (unknown) Smoking Status: Current every day smoker (units unknown) (unknown) (unknown) (no date) (unknown) (unknown) Social History (units unknown) (unknown) (unknown) (no date) (unknown) (unknown) Sodium 138 (units unknown) (unknown) (unknown) (no date) (unknown) (unknown) Sodium (units unknown) (unknown) (unknown) (no date) (unknown) (unknown) Status post appendectomy (units unknown) (unknown) (unknown) (no date) (unknown) (unknown) Surgical History (units unknown) (unknown) (unknown) (no date) (unknown) (unknown) Temperature 98.3 F (units unknown) (unknown) (unknown) (no date) (unknown) (unknown) Time Patient Seen: 01:17 (units unknown) (unknown) (unknown) (no date) (unknown) (unknown) Total Bilirubin 1.0 (units unknown) (unknown) (unknown) (no date) (unknown) (unknown) Total Bilirubin (units unknown) (unknown) (unknown) (no date) (unknown) (unknown) Total Protein 7.8 (units unknown) (unknown) (unknown) (no date) (unknown) (unknown) Total Protein (units unknown) (unknown) (unknown) (no date) (unknown) (unknown) U-100 Insulin aspart) (units unknown) (unknown) (unknown) (no date) (unknown) (unknown) Vital Signs (units unknown) (unknown) (unknown) (no date) (unknown) (unknown) WBC 18.1 H (units unknown) (unknown) (unknown) (no date) (unknown) (unknown) WBC (units unknown) (unknown) (unknown) (no date) (unknown) (unknown) [Embedded Image Not Available] (units unknown) (unknown) (unknown) (no date) (unknown) (unknown) alcohol intake: never (units unknown) (unknown) (unknown) (no date) (unknown) (unknown) household members: spouse (units unknown) (unknown) (unknown) (no date) (unknown) (unknown) insulin aspart U-100 100 unit/mL 1 sliding scale dose SUBCUT 10/04/21 02/07/22 (units unknown) (unknown) (unknown) (no date) (unknown) (unknown) insulin syringes (disposable) 1 mL #500 ea 08/04/20 02/07/22 Rx (units unknown) (unknown) (unknown) (no date) (unknown) (unknown) ketorolac [From Toradol] Allergy Verified 08/10/22 14:43 (units unknown) (unknown) (unknown) (no date) (unknown) (unknown) metoclopramide HCl 5 mg/5 mL oral See Rx Instructions .Route 01/28/22 02/07/22 (units unknown) (unknown) (unknown) (no date) (unknown) (unknown) mg-trimethoprim 160 mg tablet (units unknown) (unknown) (unknown) (no date) (unknown) (unknown) neuropathy and gastroparesis (units unknown) (unknown) (unknown) (no date) (unknown) (unknown) pantoprazole 40 mg tablet,delayed 40 mg PO BID #30 tabs 02/07/22 02/07/22 Rx (units unknown) (unknown) (unknown) (no date) (unknown) (unknown) promethazine 12.5 mg tablet 12.5 mg PO BID PRN nausea and 08/11/22 Rx (units unknown) (unknown) (unknown) (no date) (unknown) (unknown) promethazine 12.5 mg tablet 12.5 mg PO BID PRN sedation #14 08/10/22 Rx (units unknown) (unknown) (unknown) (no date) (unknown) (unknown) promethazine 25 mg rectal 25 mg PA Q4-6H PRN Nausea And 01/27/22 02/07/22 (units unknown) (unknown) (unknown) (no date) (unknown) (unknown) release (units unknown) (unknown) (unknown) (no date) (unknown) (unknown) rizatriptan 10 mg tablet (Maxalt) See Rx Instructions PO .COMPLEX 01/29/22 (units unknown) (unknown) (unknown) (no date) (unknown) (unknown) solution .COMPLEX #473 mL (units unknown) (unknown) (unknown) (no date) (unknown) (unknown) subcutaneous solutio n (Novolog USEASDIRECTD #10 mL (units unknown) (unknown) (unknown) (no date) (unknown) (unknown) sulfamethoxazole 800 1 tab PO BID 10 days #20 tabs 08/10/22 Rx (units unknown) (unknown) (unknown) (no date) (unknown) (unknown) sulfamethoxazole 800 1 tab PO Q12H 10 days #20 tabs 08/11/22 Rx (units unknown) (unknown) (unknown) (no date) (unknown) (unknown) suppository (Promethegan) Vomiting (units unknown) (unknown) (unknown) (no date) (unknown) (unknown) tabs (units unknown) (unknown) (unknown) (no date) (unknown) (unknown) use, cyclic vomiting syndrome, GERD, migraines, type 1 diabetes, with peripheral (units unknown) (unknown) (unknown) (no date) (unknown) (unknown) vomiting #14 tabs (units unknown) (unknown) Result panel 1609 (unknown) (no date) (unknown) (unknown) (no value) (units unknown) (unknown) (unknown) (no date) (unknown) (unknown) 08/12/22 (units unknown) (unknown) (unknown) (no date) (unknown) (unknown) [address] [place] [address] (units unknown) (unknown) (unknown) (no date) (unknown) (unknown) Accession Number: [id number] (units unknown) (unknown) (unknown) (no date) (unknown) (unknown) Age/Sex: 27 / F Date of Service: (units unknown) (unknown) (unknown) (no date) (unknown) (unknown) [place] [address] (units unknown) (unknown) (unknown) (no date) (unknown) (unknown) Approved by: Kannan Rutherford M.D. on 08/12/2022 at 8:12 (units unknown) (unknown) (unknown) (no date) (unknown) (unknown) Bladder: Pre-void bladder volume is 473 mL. Post-void residual is 303 mL. (units unknown) (unknown) (unknown) (no date) (unknown) (unknown) COMPARISON: None. (units unknown) (unknown) (unknown) (no date) (unknown) (unknown) Cholelithiasis without wall thickening or adjacent fat stranding to suggest (units unknown) (unknown) (unknown) (no date) (unknown) (unknown) : 1995 Acct:[id number] (units unknown) (unknown) (unknown) (no date) (unknown) (unknown) Dictated by: Kannan Rutherford M.D. on 08/12/2022 at 8:09 (units unknown) (unknown) (unknown) (no date) (unknown) (unknown) FINDINGS: (units unknown) (unknown) (unknown) (no date) (unknown) (unknown) IMPRESSION: (units unknown) (unknown) (unknown) (no date) (unknown) (unknown) INDICATIONS: Lactic acidosis sepsis, UTI (units unknown) (unknown) (unknown) (no date) (unknown) (unknown) [facility] (units unknown) (unknown) (unknown) (no date) (unknown) (unknown) Kidneys: Kidneys are normal in size. Right kidney measures 11.3 cm long; left (units unknown) (unknown) (unknown) (no date) (unknown) (unknown) Loc: AC 216-1 (units unknown) (unknown) (unknown) (no date) (unknown) (unknown) Miscellaneous: No free pelvic fluid. Cholelithiasis without wall thickening. (units unknown) (unknown) (unknown) (no date) (unknown) (unknown) No hydronephrosis. (units unknown) (unknown) (unknown) (no date) (unknown) (unknown) Ordering Provider: Gracia Smith (units unknown) (unknown) (unknown) (no date) (unknown) (unknown) PROCEDURE: US RENAL COMPLETE (units unknown) (unknown) (unknown) (no date) (unknown) (unknown) Patient: Kaur Horton (units unknown) (unknown) (unknown) (no date) (unknown) (unknown) Pre-void (units unknown) (unknown) (unknown) (no date) (unknown) (unknown) Procedure: US renal complete (units unknown) (unknown) (unknown) (no date) (unknown) (unknown) R#: [id number] (units unknown) (unknown) (unknown) (no date) (unknown) (unknown) Real-time scanning was performed of the kidneys and bladder, with image (units unknown) (unknown) (unknown) (no date) (unknown) (unknown) Signed (units unknown) (unknown) (unknown) (no date) (unknown) (unknown) TECHNIQUE: (units unknown) (unknown) (unknown) (no date) (unknown) (unknown) Ultrasound Report (units unknown) (unknown) (unknown) (no date) (unknown) (unknown) acute (units unknown) (unknown) (unknown) (no date) (unknown) (unknown) cholecystitis. (units unknown) (unknown) (unknown) (no date) (unknown) (unknown) cortical (units unknown) (unknown) (unknown) (no date) (unknown) (unknown) documentation. (units unknown) (unknown) (unknown) (no date) (unknown) (unknown) gravity between ureteral and bladder urine). (units unknown) (unknown) (unknown) (no date) (unknown) (unknown) images demonstrate n o intraluminal masses or stones. On pre-void images, (units unknown) (unknown) (unknown) (no date) (unknown) (unknown) jets may (units unknown) (unknown) (unknown) (no date) (unknown) (unknown) kidney (units unknown) (unknown) (unknown) (no date) (unknown) (unknown) measures 11.2 cm long. Right renal cortical thickness is 1.8 cm; left renal (units unknown) (unknown) (unknown) (no date) (unknown) (unknown) neither (units unknown) (unknown) (unknown) (no date) (unknown) (unknown) nephrolithiasis. No suspicious solid mass lesions. (units unknown) (unknown) (unknown) (no date) (unknown) (unknown) not be detectable in up to 25% of cases due to insufficient differences in (units unknown) (unknown) (unknown) (no date) (unknown) (unknown) or (units unknown) (unknown) (unknown) (no date) (unknown) (unknown) specific (units unknown) (unknown) (unknown) (no date) (unknown) (unknown) thickness is 2.0 cm. Renal cortical echotexture is normal. No hydronephrosis (units unknown) (unknown) (unknown) (no date) (unknown) (unknown) ureteral jets are noted with color Doppler interrogation. (Of note, ureteral (units unknown) (unknown) Result panel 1610 (unknown) (no date) (unknown) (unknown) (no value) (units unknown) (unknown) (unknown) (no date) (unknown) (unknown) #60 tabs (units unknown) (unknown) (unknown) (no date) (unknown) (unknown) #: [id number] (units unknown) (unknown) (unknown) (no date) (unknown) (unknown) (Bactrim DS) (units unknown) (unknown) (unknown) (no date) (unknown) (unknown) (past 8 hours): (units unknown) (unknown) (unknown) (no date) (unknown) (unknown) 00:06 00:06 00:06 (units unknown) (unknown) (unknown) (no date) (unknown) (unknown) 00:06 00:30 (units unknown) (unknown) (unknown) (no date) (unknown) (unknown) 01:00 (units unknown) (unknown) (unknown) (no date) (unknown) (unknown) 08/11/22 (units unknown) (unknown) (unknown) (no date) (unknown) (unknown) 08/12/22 00:06 (units unknown) (unknown) (unknown) (no date) (unknown) (unknown) 08/12/22 08/12/22 08/12/22 (units unknown) (unknown) (unknown) (no date) (unknown) (unknown) 08/12/22 08/12/22 (units unknown) (unknown) (unknown) (no date) (unknown) (unknown) 02/07/22 Rx (units unknown) (unknown) (unknown) (no date) (unknown) (unknown) 23:55 08/12/22 (units unknown) (unknown) (unknown) (no date) (unknown) (unknown) ALT 20 (units unknown) (unknown) (unknown) (no date) (unknown) (unknown) ALT (units unknown) (unknown) (unknown) (no date) (unknown) (unknown) AST 31 (units unknown) (unknown) (unknown) (no date) (unknown) (unknown) AST (units unknown) (unknown) (unknown) (no date) (unknown) (unknown) Age/Sex: 27 / F (units unknown) (unknown) (unknown) (no date) (unknown) (unknown) Albumin 4.7 (units unknown) (unknown) (unknown) (no date) (unknown) (unknown) Albumin (units unknown) (unknown) (unknown) (no date) (unknown) (unknown) Albumin/Globulin Ratio 1.5 (units unknown) (unknown) (unknown) (no date) (unknown) (unknown) Albumin/Globulin Ratio (units unknown) (unknown) (unknown) (no date) (unknown) (unknown) Alkaline Phosphatase 115 (units unknown) (unknown) (unknown) (no date) (unknown) (unknown) Alkaline Phosphatase (units unknown) (unknown) (unknown) (no date) (unknown) (unknown) Allergies (units unknown) (unknown) (unknown) (no date) (unknown) (unknown) Allergy/AdvReac Type Severity Reaction Status Date / Time (units unknown) (unknown) (unknown) (no date) (unknown) (unknown) Anemia (units unknown) (unknown) (unknown) (no date) (unknown) (unknown) At the time of admit patient's vitals temp 98.3?, BP 143/83, HR 123, R 24, O2 (units unknown) (unknown) (unknown) (no date) (unknown) (unknown) BUN 12 (units unknown) (unknown) (unknown) (no date) (unknown) (unknown) BUN (units unknown) (unknown) (unknown) (no date) (unknown) (unknown) BUN/Creatinine Ratio 21.4 (units unknown) (unknown) (unknown) (no date) (unknown) (unknown) BUN/Creatinine Ratio (units unknown) (unknown) (unknown) (no date) (unknown) (unknown) Baso # (Auto) 0 (units unknown) (unknown) (unknown) (no date) (unknown) (unknown) Baso # (Auto) (units unknown) (unknown) (unknown) (no date) (unknown) (unknown) Baso % (Auto) 0.1 (units unknown) (unknown) (unknown) (no date) (unknown) (unknown) Baso % (Auto) (units unknown) (unknown) (unknown) (no date) (unknown) (unknown) Blood Pressure 143/8 3 H (units unknown) (unknown) (unknown) (no date) (unknown) (unknown) Calcium 8.7 (units unknown) (unknown) (unknown) (no date) (unknown) (unknown) Calcium (units unknown) (unknown) (unknown) (no date) (unknown) (unknown) Carbon Dioxide 19 L (units unknown) (unknown) (unknown) (no date) (unknown) (unknown) Carbon Dioxide (units unknown) (unknown) (unknown) (no date) (unknown) (unknown) Chief complaint: vomiting, back pain was seen earlier today (units unknown) (unknown) (unknown) (no date) (unknown) (unknown) Chloride 99 (units unknown) (unknown) (unknown) (no date) (unknown) (unknown) Chloride (units unknown) (unknown) (unknown) (no date) (unknown) (unknown) Creatinine 0.56 (units unknown) (unknown) (unknown) (no date) (unknown) (unknown) Creatinine (units unknown) (unknown) (unknown) (no date) (unknown) (unknown) Cyclic vomiting syndrome (units unknown) (unknown) (unknown) (no date) (unknown) (unknown) DKA (diabetic ketoacidoses) (units unknown) (unknown) (unknown) (no date) (unknown) (unknown) : 1995 Acct:[id number] (units unknown) (unknown) (unknown) (no date) (unknown) (unknown) Date Patient Seen: 08/12/22 (units unknown) (unknown) (unknown) (no date) (unknown) (unknown) Date of Service: 08/12/22 (units unknown) (unknown) (unknown) (no date) (unknown) (unknown) Diabetes mellitus, type I (units unknown) (unknown) (unknown) (no date) (unknown) (unknown) Eos # (Auto) 0 (units unknown) (unknown) (unknown) (no date) (unknown) (unknown) Eos # (Auto) (units unknown) (unknown) (unknown) (no date) (unknown) (unknown) Eos % (Auto) 0.0 L (units unknown) (unknown) (unknown) (no date) (unknown) (unknown) Eos % (Auto) (units unknown) (unknown) (unknown) (no date) (unknown) (unknown) Estimated GFR > 60 (units unknown) (unknown) (unknown) (no date) (unknown) (unknown) Estimated GFR (units unknown) (unknown) (unknown) (no date) (unknown) (unknown) Ethyl Alcohol < 10 (units unknown) (unknown) (unknown) (no date) (unknown) (unknown) Ethyl Alcohol (units unknown) (unknown) (unknown) (no date) (unknown) (unknown) Exam (units unknown) (unknown) (unknown) (no date) (unknown) (unknown) Family History (units unknown) (unknown) (unknown) (no date) (unknown) (unknown) Father Healthy adult (units unknown) (unknown) (unknown) (no date) (unknown) (unknown) Gastroparesis (units unknown) (unknown) (unknown) (no date) (unknown) (unknown) Globulin 3.1 (units unknown) (unknown) (unknown) (no date) (unknown) (unknown) Globulin (units unknown) (unknown) (unknown) (no date) (unknown) (unknown) Glucose 92 (units unknown) (unknown) (unknown) (no date) (unknown) (unknown) Glucose (units unknown) (unknown) (unknown) (no date) (unknown) (unknown) Hct 34.9 L (units unknown) (unknown) (unknown) (no date) (unknown) (unknown) Hct (units unknown) (unknown) (unknown) (no date) (unknown) (unknown) Hgb 11.4 L (units unknown) (unknown) (unknown) (no date) (unknown) (unknown) Hgb (units unknown) (unknown) (unknown) (no date) (unknown) (unknown) History + Physical Report (units unknown) (unknown) (unknown) (no date) (unknown) (unknown) History of Present Illness (units unknown) (unknown) (unknown) (no date) (unknown) (unknown) History (units unknown) (unknown) (unknown) (no date) (unknown) (unknown) Home Medications and Allergies (units unknown) (unknown) (unknown) (no date) (unknown) (unknown) Home Medications (units unknown) (unknown) (unknown) (no date) (unknown) (unknown) Insulin dependent diabetes mellitus (units unknown) (unknown) (unknown) (no date) (unknown) (unknown) [address] [address] (units unknown) (unknown) (unknown) (no date) (unknown) (unknown) Kaur Morris is 27-year-old female daily smoker (vaping), hx of marijuana daily (units unknown) (unknown) (unknown) (no date) (unknown) (unknown) Ketones 5.09 H (units unknown) (unknown) (unknown) (no date) (unknown) (unknown) Ketones (units unknown) (unknown) (unknown) (no date) (unknown) (unknown) Laboratory Results - last 24 hr (units unknown) (unknown) (unknown) (no date) (unknown) (unknown) Labs (units unknown) (unknown) (unknown) (no date) (unknown) (unknown) Labs: (units unknown) (unknown) (unknown) (no date) (unknown) (unknown) Lactate 2.3 H (units unknown) (unknown) (unknown) (no date) (unknown) (unknown) Lactate (units unknown) (unknown) (unknown) (no date) (unknown) (unknown) Lipase 24 (units unknown) (unknown) (unknown) (no date) (unknown) (unknown) Lipase (units unknown) (unknown) (unknown) (no date) (unknown) (unknown) Lymph # (Auto) 3200 (units unknown) (unknown) (unknown) (no date) (unknown) (unknown) Lymph # (Auto) (units unknown) (unknown) (unknown) (no date) (unknown) (unknown) Lymph % (Auto) 17.7 L (units unknown) (unknown) (unknown) (no date) (unknown) (unknown) Lymph % (Auto) (units unknown) (unknown) (unknown) (no date) (unknown) (unknown) MCH 25.5 L (units unknown) (unknown) (unknown) (no date) (unknown) (unknown) MCH (units unknown) (unknown) (unknown) (no date) (unknown) (unknown) MCHC 32.7 (units unknown) (unknown) (unknown) (no date) (unknown) (unknown) MCHC (units unknown) (unknown) (unknown) (no date) (unknown) (unknown) MCV 78.0 L (units unknown) (unknown) (unknown) (no date) (unknown) (unknown) MCV (units unknown) (unknown) (unknown) (no date) (unknown) (unknown) Magnesium 1.8 (units unknown) (unknown) (unknown) (no date) (unknown) (unknown) Magnesium (units unknown) (unknown) (unknown) (no date) (unknown) (unknown) Medical History (units unknown) (unknown) (unknown) (no date) (unknown) (unknown) Medication Instructions Recorded Confirmed Type (units unknown) (unknown) (unknown) (no date) (unknown) (unknown) Meds (units unknown) (unknown) (unknown) (no date) (unknown) (unknown) Migraine headache with aura (units unknown) (unknown) (unknown) (no date) (unknown) (unknown) O'Brien # (Auto) 900 (units unknown) (unknown) (unknown) (no date) (unknown) (unknown) O'Brien # (Auto) (units unknown) (unknown) (unknown) (no date) (unknown) (unknown) O[place]Brien % (Auto) 4.8 (units unknown) (unknown) (unknown) (no date) (unknown) (unknown) O'Brien % (Auto) (units unknown) (unknown) (unknown) (no date) (unknown) (unknown) Mother Hypertension (units unknown) (unknown) (unknown) (no date) (unknown) (unknown) Myopia (units unknown) (unknown) (unknown) (no date) (unknown) (unknown) Narrative: (units unknown) (unknown) (unknown) (no date) (unknown) (unknown) Neut # (Auto) 02434 H (units unknown) (unknown) (unknown) (no date) (unknown) (unknown) Neut # (Auto) (units unknown) (unknown) (unknown) (no date) (unknown) (unknown) Neut % (Auto) 77.4 H (units unknown) (unknown) (unknown) (no date) (unknown) (unknown) Neut % (Auto) (units unknown) (unknown) (unknown) (no date) (unknown) (unknown) Objective (units unknown) (unknown) (unknown) (no date) (unknown) (unknown) Oxygen Delivery Method Room Air (units unknown) (unknown) (unknown) (no date) (unknown) (unknown) PFSH (units unknown) (unknown) (unknown) (no date) (unknown) (unknown) Pancreatitis (units unknown) (unknown) (unknown) (no date) (unknown) (unknown) Patient: Romeo Gueta,Kaur A MR (units unknown) (unknown) (unknown) (no date) (unknown) (unknown) Phosphorus 3.1 (units unknown) (unknown) (unknown) (no date) (unknown) (unknown) Phosphorus (units unknown) (unknown) (unknown) (no date) (unknown) (unknown) Plt Count 317 (units unknown) (unknown) (unknown) (no date) (unknown) (unknown) Plt Count (units unknown) (unknown) (unknown) (no date) (unknown) (unknown) Potassium 3.3 L (units unknown) (unknown) (unknown) (no date) (unknown) (unknown) Potassium (units unknown) (unknown) (unknown) (no date) (unknown) (unknown) Procalcitonin 0.19 (units unknown) (unknown) (unknown) (no date) (unknown) (unknown) Procalcitonin (units unknown) (unknown) (unknown) (no date) (unknown) (unknown) Provider: Gracia Smith ORE CHARGER-BC (units unknown) (unknown) (unknown) (no date) (unknown) (unknown) Pulse Oximetry 99 98 (units unknown) (unknown) (unknown) (no date) (unknown) (unknown) Pulse Rate 123 H 85 (units unknown) (unknown) (unknown) (no date) (unknown) (unknown) RBC 4.47 (units unknown) (unknown) (unknown) (no date) (unknown) (unknown) RBC (units unknown) (unknown) (unknown) (no date) (unknown) (unknown) RDW 15.9 H (units unknown) (unknown) (unknown) (no date) (unknown) (unknown) RDW (units unknown) (unknown) (unknown) (no date) (unknown) (unknown) Respiratory Rate 24 16 (units unknown) (unknown) (unknown) (no date) (unknown) (unknown) Rx (units unknown) (unknown) (unknown) (no date) (unknown) (unknown) SARS-CoV-2 (PCR) Negative (units unknown) (unknown) (unknown) (no date) (unknown) (unknown) SARS-CoV-2 (PCR) (units unknown) (unknown) (unknown) (no date) (unknown) (unknown) Serum , Sushil l Negative (units unknown) (unknown) (unknown) (no date) (unknown) (unknown) Serum , Qual (units unknown) (unknown) (unknown) (no date) (unknown) (unknown) Signed By: (units unknown) (unknown) (unknown) (no date) (unknown) (unknown) Smoking Status: Current every day smoker (units unknown) (unknown) (unknown) (no date) (unknown) (unknown) Social History (units unknown) (unknown) (unknown) (no date) (unknown) (unknown) Sodium 138 (units unknown) (unknown) (unknown) (no date) (unknown) (unknown) Sodium (units unknown) (unknown) (unknown) (no date) (unknown) (unknown) Status post appendectomy (units unknown) (unknown) (unknown) (no date) (unknown) (unknown) Surgical History (units unknown) (unknown) (unknown) (no date) (unknown) (unknown) Temperature 98.3 F (units unknown) (unknown) (unknown) (no date) (unknown) (unknown) Time Patient Seen: 01:17 (units unknown) (unknown) (unknown) (no date) (unknown) (unknown) Total Bilirubin 1.0 (units unknown) (unknown) (unknown) (no date) (unknown) (unknown) Total Bilirubin (units unknown) (unknown) (unknown) (no date) (unknown) (unknown) Total Protein 7.8 (units unknown) (unknown) (unknown) (no date) (unknown) (unknown) Total Protein (units unknown) (unknown) (unknown) (no date) (unknown) (unknown) U-100 Insulin aspart) (units unknown) (unknown) (unknown) (no date) (unknown) (unknown) Vital Signs (units unknown) (unknown) (unknown) (no date) (unknown) (unknown) WBC 18.1 H (units unknown) (unknown) (unknown) (no date) (unknown) (unknown) WBC (units unknown) (unknown) (unknown) (no date) (unknown) (unknown) [Embedded Image Not Available] (units unknown) (unknown) (unknown) (no date) (unknown) (unknown) alcohol intake: never (units unknown) (unknown) (unknown) (no date) (unknown) (unknown) antibiotics was unable to keep them down and failed oral challenge in ED. (units unknown) (unknown) (unknown) (no date) (unknown) (unknown) antibiotics/antiemet i cs was unable to fill them as the pharmacies were closed (units unknown) (unknown) (unknown) (no date) (unknown) (unknown) cultures obtained tonight-pending. Patient admitted for lactic acidosis sepsis (units unknown) (unknown) (unknown) (no date) (unknown) (unknown) household members: spouse (units unknown) (unknown) (unknown) (no date) (unknown) (unknown) insulin aspart U-100 100 unit/mL 1 sliding scale dose SUBCUT 10/04/21 02/07/22 (units unknown) (unknown) (unknown) (no date) (unknown) (unknown) insulin syringes (disposable) 1 mL #500 ea 08/04/20 02/07/22 Rx (units unknown) (unknown) (unknown) (no date) (unknown) (unknown) ketorolac [From Toradol] Allergy Verified 08/10/22 14:43 (units unknown) (unknown) (unknown) (no date) (unknown) (unknown) meets SIRS severe sepsis criteria, H+H 11.4/34.9, MCV 78, MCH 25.5. Hypokalemia (units unknown) (unknown) (unknown) (no date) (unknown) (unknown) metoclopramide HCl 5 mg/5 mL oral See Rx Instructions .Route 01/28/22 02/07/22 (units unknown) (unknown) (unknown) (no date) (unknown) (unknown) mg-trimethoprim 160 mg tablet (units unknown) (unknown) (unknown) (no date) (unknown) (unknown) pantoprazole 40 mg tablet,delayed 40 mg PO BID #30 tabs 02/07/22 02/07/22 Rx (units unknown) (unknown) (unknown) (no date) (unknown) (unknown) patient in ED had a BP of 123/77 but was tachycardic HR 111, tachypneic RR 21. (units unknown) (unknown) (unknown) (no date) (unknown) (unknown) potassium 3.3, bicar b 19, glucose 92, anion gap 20, not in DKA Patient's urine (units unknown) (unknown) (unknown) (no date) (unknown) (unknown) promethazine 12.5 mg tablet 12.5 mg PO BID PRN nausea and 08/11/22 Rx (units unknown) (unknown) (unknown) (no date) (unknown) (unknown) promethazine 12.5 mg tablet 12.5 mg PO BID PRN sedation #14 08/10/22 Rx (units unknown) (unknown) (unknown) (no date) (unknown) (unknown) promethazine 25 mg rectal 25 mg PA Q4-6H PRN Nausea And 01/27/22 02/07/22 (units unknown) (unknown) (unknown) (no date) (unknown) (unknown) release (units unknown) (unknown) (unknown) (no date) (unknown) (unknown) return to the ED thi s morning was treated once again discharged home returned (units unknown) (unknown) (unknown) (no date) (unknown) (unknown) rizatriptan 10 mg tablet (Maxalt) See Rx Instructions PO .COMPLEX 01/29/22 (units unknown) (unknown) (unknown) (no date) (unknown) (unknown) saturation 99% on room air WBC 18.1, neutrophils 14,000, lactate 2.3 patient (units unknown) (unknown) (unknown) (no date) (unknown) (unknown) solution .COMPLEX #473 mL (units unknown) (unknown) (unknown) (no date) (unknown) (unknown) subcutaneous solutio n (Novolog USEASDIRECTD #10 mL (units unknown) (unknown) (unknown) (no date) (unknown) (unknown) sulfamethoxazole 800 1 tab PO BID 10 days #20 tabs 08/10/22 Rx (units unknown) (unknown) (unknown) (no date) (unknown) (unknown) sulfamethoxazole 800 1 tab PO Q12H 10 days #20 tabs 08/11/22 Rx (units unknown) (unknown) (unknown) (no date) (unknown) (unknown) suppository ([facility]) Vomiting (units unknown) (unknown) (unknown) (no date) (unknown) (unknown) tabs (units unknown) (unknown) (unknown) (no date) (unknown) (unknown) the ED yesterday for nausea vomiting with UTI, was given prescription for (units unknown) (unknown) (unknown) (no date) (unknown) (unknown) this evening with intractable nausea and vomiting after picking up her (units unknown) (unknown) (unknown) (no date) (unknown) (unknown) type 1 diabetes, wit h peripheral neuropathy and gastroparesis who presented to (units unknown) (unknown) (unknown) (no date) (unknown) (unknown) use, cannabis hyperemesis syndrome, cyclic vomiting syndrome, GERD, migraines, (units unknown) (unknown) (unknown) (no date) (unknown) (unknown) vomiting #14 tabs (units unknown) (unknown) (unknown) (no date) (unknown) (unknown) was positive for UTI and urine cultures were collected yesterday from ED, blood (units unknown) (unknown) (unknown) (no date) (unknown) (unknown) without shock, due t o UTI. (units unknown) (unknown) Result panel 1611 (unknown) (no date) (unknown) (unknown) (no value) (units unknown) (unknown) (unknown) (no date) (unknown) (unknown) #: [id number] (units unknown) (unknown) (unknown) (no date) (unknown) (unknown) (Bactrim DS) (units unknown) (unknown) (unknown) (no date) (unknown) (unknown) (past 8 hours): (units unknown) (unknown) (unknown) (no date) (unknown) (unknown) 00:06 00:06 00:06 (units unknown) (unknown) (unknown) (no date) (unknown) (unknown) 00:06 00:30 (units unknown) (unknown) (unknown) (no date) (unknown) (unknown) 01:00 (units unknown) (unknown) (unknown) (no date) (unknown) (unknown) 08/11/22 (units unknown) (unknown) (unknown) (no date) (unknown) (unknown) 08/12/22 00:06 (units unknown) (unknown) (unknown) (no date) (unknown) (unknown) 08/12/22 08/12/22 08/12/22 (units unknown) (unknown) (unknown) (no date) (unknown) (unknown) 08/12/22 08/12/22 (units unknown) (unknown) (unknown) (no date) (unknown) (unknown) 23:55 08/12/22 (units unknown) (unknown) (unknown) (no date) (unknown) (unknown) ALT 20 (units unknown) (unknown) (unknown) (no date) (unknown) (unknown) ALT (units unknown) (unknown) (unknown) (no date) (unknown) (unknown) AST 31 (units unknown) (unknown) (unknown) (no date) (unknown) (unknown) AST (units unknown) (unknown) (unknown) (no date) (unknown) (unknown) Age/Sex: 27 / F (units unknown) (unknown) (unknown) (no date) (unknown) (unknown) Albumin 4.7 (units unknown) (unknown) (unknown) (no date) (unknown) (unknown) Albumin (units unknown) (unknown) (unknown) (no date) (unknown) (unknown) Albumin/Globulin Ratio 1.5 (units unknown) (unknown) (unknown) (no date) (unknown) (unknown) Albumin/Globulin Ratio (units unknown) (unknown) (unknown) (no date) (unknown) (unknown) Alkaline Phosphatase 115 (units unknown) (unknown) (unknown) (no date) (unknown) (unknown) Alkaline Phosphatase (units unknown) (unknown) (unknown) (no date) (unknown) (unknown) Allergies (units unknown) (unknown) (unknown) (no date) (unknown) (unknown) Allergy/AdvReac Type Severity Reaction Status Date / Time (units unknown) (unknown) (unknown) (no date) (unknown) (unknown) Anemia (units unknown) (unknown) (unknown) (no date) (unknown) (unknown) At the time of admit patient's vitals temp 98.3?, BP 143/83, HR 123, R 24, O2 (units unknown) (unknown) (unknown) (no date) (unknown) (unknown) BUN 12 (units unknown) (unknown) (unknown) (no date) (unknown) (unknown) BUN (units unknown) (unknown) (unknown) (no date) (unknown) (unknown) BUN/Creatinine Ratio 21.4 (units unknown) (unknown) (unknown) (no date) (unknown) (unknown) BUN/Creatinine Ratio (units unknown) (unknown) (unknown) (no date) (unknown) (unknown) Baso # (Auto) 0 (units unknown) (unknown) (unknown) (no date) (unknown) (unknown) Baso # (Auto) (units unknown) (unknown) (unknown) (no date) (unknown) (unknown) Baso % (Auto) 0.1 (units unknown) (unknown) (unknown) (no date) (unknown) (unknown) Baso % (Auto) (units unknown) (unknown) (unknown) (no date) (unknown) (unknown) Blood Pressure 143/8 3 H (units unknown) (unknown) (unknown) (no date) (unknown) (unknown) Calcium 8.7 (units unknown) (unknown) (unknown) (no date) (unknown) (unknown) Calcium (units unknown) (unknown) (unknown) (no date) (unknown) (unknown) Carbon Dioxide 19 L (units unknown) (unknown) (unknown) (no date) (unknown) (unknown) Carbon Dioxide (units unknown) (unknown) (unknown) (no date) (unknown) (unknown) Chief complaint: vomiting, back pain was seen earlier today (units unknown) (unknown) (unknown) (no date) (unknown) (unknown) Chloride 99 (units unknown) (unknown) (unknown) (no date) (unknown) (unknown) Chloride (units unknown) (unknown) (unknown) (no date) (unknown) (unknown) Creatinine 0.56 (units unknown) (unknown) (unknown) (no date) (unknown) (unknown) Creatinine (units unknown) (unknown) (unknown) (no date) (unknown) (unknown) Cyclic vomiting syndrome (units unknown) (unknown) (unknown) (no date) (unknown) (unknown) DKA (diabetic ketoacidoses) (units unknown) (unknown) (unknown) (no date) (unknown) (unknown) : 1995 Acct:[id number] (units unknown) (unknown) (unknown) (no date) (unknown) (unknown) Date Patient Seen: 08/12/22 (units unknown) (unknown) (unknown) (no date) (unknown) (unknown) Date of Service: 08/12/22 (units unknown) (unknown) (unknown) (no date) (unknown) (unknown) Diabetes mellitus, type I (units unknown) (unknown) (unknown) (no date) (unknown) (unknown) Eos # (Auto) 0 (units unknown) (unknown) (unknown) (no date) (unknown) (unknown) Eos # (Auto) (units unknown) (unknown) (unknown) (no date) (unknown) (unknown) Eos % (Auto) 0.0 L (units unknown) (unknown) (unknown) (no date) (unknown) (unknown) Eos % (Auto) (units unknown) (unknown) (unknown) (no date) (unknown) (unknown) Estimated GFR > 60 (units unknown) (unknown) (unknown) (no date) (unknown) (unknown) Estimated GFR (units unknown) (unknown) (unknown) (no date) (unknown) (unknown) Ethyl Alcohol < 10 (units unknown) (unknown) (unknown) (no date) (unknown) (unknown) Ethyl Alcohol (units unknown) (unknown) (unknown) (no date) (unknown) (unknown) Exam (units unknown) (unknown) (unknown) (no date) (unknown) (unknown) Family History (units unknown) (unknown) (unknown) (no date) (unknown) (unknown) Father Healthy adult (units unknown) (unknown) (unknown) (no date) (unknown) (unknown) Gastroparesis (units unknown) (unknown) (unknown) (no date) (unknown) (unknown) Globulin 3.1 (units unknown) (unknown) (unknown) (no date) (unknown) (unknown) Globulin (units unknown) (unknown) (unknown) (no date) (unknown) (unknown) Glucose 92 (units unknown) (unknown) (unknown) (no date) (unknown) (unknown) Glucose (units unknown) (unknown) (unknown) (no date) (unknown) (unknown) Hct 34.9 L (units unknown) (unknown) (unknown) (no date) (unknown) (unknown) Hct (units unknown) (unknown) (unknown) (no date) (unknown) (unknown) Hgb 11.4 L (units unknown) (unknown) (unknown) (no date) (unknown) (unknown) Hgb (units unknown) (unknown) (unknown) (no date) (unknown) (unknown) History + Physical Report (units unknown) (unknown) (unknown) (no date) (unknown) (unknown) History of Present Illness (units unknown) (unknown) (unknown) (no date) (unknown) (unknown) History (units unknown) (unknown) (unknown) (no date) (unknown) (unknown) Home Medications and Allergies (units unknown) (unknown) (unknown) (no date) (unknown) (unknown) Home Medications (units unknown) (unknown) (unknown) (no date) (unknown) (unknown) Insulin dependent diabetes mellitus (units unknown) (unknown) (unknown) (no date) (unknown) (unknown) [address] [address] (units unknown) (unknown) (unknown) (no date) (unknown) (unknown) Kaur Morris is 27-year-old female daily smoker (vaping), hx of marijuana daily (units unknown) (unknown) (unknown) (no date) (unknown) (unknown) Ketones 5.09 H (units unknown) (unknown) (unknown) (no date) (unknown) (unknown) Ketones (units unknown) (unknown) (unknown) (no date) (unknown) (unknown) Laboratory Results - last 24 hr (units unknown) (unknown) (unknown) (no date) (unknown) (unknown) Labs (units unknown) (unknown) (unknown) (no date) (unknown) (unknown) Labs: (units unknown) (unknown) (unknown) (no date) (unknown) (unknown) Lactate 2.3 H (units unknown) (unknown) (unknown) (no date) (unknown) (unknown) Lactate (units unknown) (unknown) (unknown) (no date) (unknown) (unknown) Lipase 24 (units unknown) (unknown) (unknown) (no date) (unknown) (unknown) Lipase (units unknown) (unknown) (unknown) (no date) (unknown) (unknown) Lymph # (Auto) 3200 (units unknown) (unknown) (unknown) (no date) (unknown) (unknown) Lymph # (Auto) (units unknown) (unknown) (unknown) (no date) (unknown) (unknown) Lymph % (Auto) 17.7 L (units unknown) (unknown) (unknown) (no date) (unknown) (unknown) Lymph % (Auto) (units unknown) (unknown) (unknown) (no date) (unknown) (unknown) MCH 25.5 L (units unknown) (unknown) (unknown) (no date) (unknown) (unknown) MCH (units unknown) (unknown) (unknown) (no date) (unknown) (unknown) MCHC 32.7 (units unknown) (unknown) (unknown) (no date) (unknown) (unknown) MCHC (units unknown) (unknown) (unknown) (no date) (unknown) (unknown) MCV 78.0 L (units unknown) (unknown) (unknown) (no date) (unknown) (unknown) MCV (units unknown) (unknown) (unknown) (no date) (unknown) (unknown) Magnesium 1.8 (units unknown) (unknown) (unknown) (no date) (unknown) (unknown) Magnesium (units unknown) (unknown) (unknown) (no date) (unknown) (unknown) Medical History (units unknown) (unknown) (unknown) (no date) (unknown) (unknown) Medication Instructions Recorded Confirmed Type (units unknown) (unknown) (unknown) (no date) (unknown) (unknown) Meds (units unknown) (unknown) (unknown) (no date) (unknown) (unknown) Migraine headache with aura (units unknown) (unknown) (unknown) (no date) (unknown) (unknown) O'Brien # (Auto) 900 (units unknown) (unknown) (unknown) (no date) (unknown) (unknown) O'Brien # (Auto) (units unknown) (unknown) (unknown) (no date) (unknown) (unknown) O'Brien % (Auto) 4.8 (units unknown) (unknown) (unknown) (no date) (unknown) (unknown) O'Brien % (Auto) (units unknown) (unknown) (unknown) (no date) (unknown) (unknown) Mother Hypertension (units unknown) (unknown) (unknown) (no date) (unknown) (unknown) Myopia (units unknown) (unknown) (unknown) (no date) (unknown) (unknown) Narrative: (units unknown) (unknown) (unknown) (no date) (unknown) (unknown) Neut # (Auto) 380[address] H (units unknown) (unknown) (unknown) (no date) (unknown) (unknown) Neut # (Auto) (units unknown) (unknown) (unknown) (no date) (unknown) (unknown) Neut % (Auto) 77.4 H (units unknown) (unknown) (unknown) (no date) (unknown) (unknown) Neut % (Auto) (units unknown) (unknown) (unknown) (no date) (unknown) (unknown) Objective (units unknown) (unknown) (unknown) (no date) (unknown) (unknown) On admit patient denies chest pain, shortness in breath, headache, changes in (units unknown) (unknown) (unknown) (no date) (unknown) (unknown) Oxygen Delivery Method Room Air (units unknown) (unknown) (unknown) (no date) (unknown) (unknown) PFSH (units unknown) (unknown) (unknown) (no date) (unknown) (unknown) Pancreatitis (units unknown) (unknown) (unknown) (no date) (unknown) (unknown) Patient: Kaur Horton MR (units unknown) (unknown) (unknown) (no date) (unknown) (unknown) Phosphorus 3.1 (units unknown) (unknown) (unknown) (no date) (unknown) (unknown) Phosphorus (units unknown) (unknown) (unknown) (no date) (unknown) (unknown) Plt Count 317 (units unknown) (unknown) (unknown) (no date) (unknown) (unknown) Plt Count (units unknown) (unknown) (unknown) (no date) (unknown) (unknown) Potassium 3.3 L (units unknown) (unknown) (unknown) (no date) (unknown) (unknown) Potassium (units unknown) (unknown) (unknown) (no date) (unknown) (unknown) Procalcitonin 0.19 (units unknown) (unknown) (unknown) (no date) (unknown) (unknown) Procalcitonin (units unknown) (unknown) (unknown) (no date) (unknown) (unknown) Provider: Gracia Smith- (units unknown) (unknown) (unknown) (no date) (unknown) (unknown) Pulse Oximetry 99 98 (units unknown) (unknown) (unknown) (no date) (unknown) (unknown) Pulse Rate 123 H 85 (units unknown) (unknown) (unknown) (no date) (unknown) (unknown) RBC 4.47 (units unknown) (unknown) (unknown) (no date) (unknown) (unknown) RBC (units unknown) (unknown) (unknown) (no date) (unknown) (unknown) RDW 15.9 H (units unknown) (unknown) (unknown) (no date) (unknown) (unknown) RDW (units unknown) (unknown) (unknown) (no date) (unknown) (unknown) Respiratory Rate 24 16 (units unknown) (unknown) (unknown) (no date) (unknown) (unknown) SARS-CoV-2 (PCR) Negative (units unknown) (unknown) (unknown) (no date) (unknown) (unknown) SARS-CoV-2 (PCR) (units unknown) (unknown) (unknown) (no date) (unknown) (unknown) Serum , Sushil l Negative (units unknown) (unknown) (unknown) (no date) (unknown) (unknown) Serum , Qual (units unknown) (unknown) (unknown) (no date) (unknown) (unknown) Signed By: (units unknown) (unknown) (unknown) (no date) (unknown) (unknown) Smoking Status: Current every day smoker (units unknown) (unknown) (unknown) (no date) (unknown) (unknown) Social History (units unknown) (unknown) (unknown) (no date) (unknown) (unknown) Sodium 138 (units unknown) (unknown) (unknown) (no date) (unknown) (unknown) Sodium (units unknown) (unknown) (unknown) (no date) (unknown) (unknown) Status post appendectomy (units unknown) (unknown) (unknown) (no date) (unknown) (unknown) Surgical History (units unknown) (unknown) (unknown) (no date) (unknown) (unknown) Temperature 98.3 F (units unknown) (unknown) (unknown) (no date) (unknown) (unknown) Time Patient Seen: 01:17 (units unknown) (unknown) (unknown) (no date) (unknown) (unknown) Total Bilirubin 1.0 (units unknown) (unknown) (unknown) (no date) (unknown) (unknown) Total Bilirubin (units unknown) (unknown) (unknown) (no date) (unknown) (unknown) Total Protein 7.8 (units unknown) (unknown) (unknown) (no date) (unknown) (unknown) Total Protein (units unknown) (unknown) (unknown) (no date) (unknown) (unknown) U-100 Insulin aspart) (units unknown) (unknown) (unknown) (no date) (unknown) (unknown) Vital Signs (units unknown) (unknown) (unknown) (no date) (unknown) (unknown) WBC 18.1 H (units unknown) (unknown) (unknown) (no date) (unknown) (unknown) WBC (units unknown) (unknown) (unknown) (no date) (unknown) (unknown) [Embedded Image Not Available] (units unknown) (unknown) (unknown) (no date) (unknown) (unknown) alcohol intake: never (units unknown) (unknown) (unknown) (no date) (unknown) (unknown) antibiotics was unable to keep them down and failed oral challenge in ED. (units unknown) (unknown) (unknown) (no date) (unknown) (unknown) antibiotics/antiemet i cs was unable to fill them as the pharmacies were closed (units unknown) (unknown) (unknown) (no date) (unknown) (unknown) constipation, incontinence, melena, rashes, recent changes to medication, (units unknown) (unknown) (unknown) (no date) (unknown) (unknown) cultures obtained tonight-pending. Patient admitted for lactic acidosis sepsis (units unknown) (unknown) (unknown) (no date) (unknown) (unknown) exposure to illness, abdominal pain, nausea, vomiting, urinary (units unknown) (unknown) (unknown) (no date) (unknown) (unknown) household members: spouse (units unknown) (unknown) (unknown) (no date) (unknown) (unknown) illness, injury, or trauma. (units unknown) (unknown) (unknown) (no date) (unknown) (unknown) incontinence/retenti o n, dysuria, frequency, urgency, hematuria, bowel changes, (units unknown) (unknown) (unknown) (no date) (unknown) (unknown) insulin aspart U-100 100 unit/mL 56 SUBCUT DAILY 08/12/22 History (units unknown) (unknown) (unknown) (no date) (unknown) (unknown) insulin syringes (disposable) 1 mL #500 ea 08/04/20 02/07/22 Rx (units unknown) (unknown) (unknown) (no date) (unknown) (unknown) ketorolac [From Toradol] Allergy Verified 08/10/22 14:43 (units unknown) (unknown) (unknown) (no date) (unknown) (unknown) meets SIRS severe sepsis criteria, H+H 11.4/34.9, MCV 78, MCH 25.5. Hypokalemia (units unknown) (unknown) (unknown) (no date) (unknown) (unknown) metoclopramide HCl 5 mg/5 mL oral 5 mg PO Q8H PRN Nausea 08/12/22 08/12/22 (units unknown) (unknown) (unknown) (no date) (unknown) (unknown) mg-trimethoprim 160 mg tablet (units unknown) (unknown) (unknown) (no date) (unknown) (unknown) patient in ED had a BP of 123/77 but was tachycardic HR 111, tachypneic RR 21. (units unknown) (unknown) (unknown) (no date) (unknown) (unknown) potassium 3.3, bicar b 19, glucose 92, anion gap 20, not in DKA Patient's urine (units unknown) (unknown) (unknown) (no date) (unknown) (unknown) promethazine 12.5 mg tablet 25 mg PO BID PRN nausea and 08/12/22 08/12/22 (units unknown) (unknown) (unknown) (no date) (unknown) (unknown) promethazine 25 mg rectal 25 mg PA Q4-6H PRN Nausea And 01/27/22 08/12/22 (units unknown) (unknown) (unknown) (no date) (unknown) (unknown) return to the ED thi s morning was treated once again discharged home returned (units unknown) (unknown) (unknown) (no date) (unknown) (unknown) saturation 99% on room air WBC 18.1, neutrophils 14,000, lactate 2.3 patient (units unknown) (unknown) (unknown) (no date) (unknown) (unknown) solution (units unknown) (unknown) (unknown) (no date) (unknown) (unknown) subcutaneous solutio n (Novolog (units unknown) (unknown) (unknown) (no date) (unknown) (unknown) sulfamethoxazole 800 1 tab PO Q12H 10 days #20 tabs 08/11/22 08/12/22 Rx (units unknown) (unknown) (unknown) (no date) (unknown) (unknown) suppository ([facility]) Vomiting (units unknown) (unknown) (unknown) (no date) (unknown) (unknown) the ED yesterday for nausea vomiting with UTI, was given prescription for (units unknown) (unknown) (unknown) (no date) (unknown) (unknown) this evening with intractable nausea and vomiting after picking up her (units unknown) (unknown) (unknown) (no date) (unknown) (unknown) type 1 diabetes, wit h peripheral neuropathy and gastroparesis who presented to (units unknown) (unknown) (unknown) (no date) (unknown) (unknown) use, cannabis hyperemesis syndrome, cyclic vomiting syndrome, GERD, migraines, (units unknown) (unknown) (unknown) (no date) (unknown) (unknown) vision, difficulty swallowing, speech impairment, numbness, tingling, difficulty (units unknown) (unknown) (unknown) (no date) (unknown) (unknown) vomiting (units unknown) (unknown) (unknown) (no date) (unknown) (unknown) was positive for UTI and urine cultures were collected yesterday from ED, blood (units unknown) (unknown) (unknown) (no date) (unknown) (unknown) with ambulation, recent falls, head injury, LOC, fever, chills, cough, recent (units unknown) (unknown) (unknown) (no date) (unknown) (unknown) without shock, due t o UTI. (units unknown) (unknown) Result panel 1612 (unknown) (no date) (unknown) (unknown) (no value) (units unknown) (unknown) (unknown) (no date) (unknown) (unknown) #: [id number] (units unknown) (unknown) (unknown) (no date) (unknown) (unknown) (Bactrim DS) (units unknown) (unknown) (unknown) (no date) (unknown) (unknown) (past 8 hours): (units unknown) (unknown) (unknown) (no date) (unknown) (unknown) 00:06 00:06 00:06 (units unknown) (unknown) (unknown) (no date) (unknown) (unknown) 00:06 00:30 (units unknown) (unknown) (unknown) (no date) (unknown) (unknown) 01:00 (units unknown) (unknown) (unknown) (no date) (unknown) (unknown) 08/11/22 (units unknown) (unknown) (unknown) (no date) (unknown) (unknown) 08/12/22 00:06 (units unknown) (unknown) (unknown) (no date) (unknown) (unknown) 08/12/22 08/12/22 08/12/22 (units unknown) (unknown) (unknown) (no date) (unknown) (unknown) 08/12/22 08/12/22 (units unknown) (unknown) (unknown) (no date) (unknown) (unknown) 23:55 08/12/22 (units unknown) (unknown) (unknown) (no date) (unknown) (unknown) ALT 20 (units unknown) (unknown) (unknown) (no date) (unknown) (unknown) ALT (units unknown) (unknown) (unknown) (no date) (unknown) (unknown) AST 31 (units unknown) (unknown) (unknown) (no date) (unknown) (unknown) AST (units unknown) (unknown) (unknown) (no date) (unknown) (unknown) Age/Sex: 27 / F (units unknown) (unknown) (unknown) (no date) (unknown) (unknown) Albumin 4.7 (units unknown) (unknown) (unknown) (no date) (unknown) (unknown) Albumin (units unknown) (unknown) (unknown) (no date) (unknown) (unknown) Albumin/Globulin Ratio 1.5 (units unknown) (unknown) (unknown) (no date) (unknown) (unknown) Albumin/Globulin Ratio (units unknown) (unknown) (unknown) (no date) (unknown) (unknown) Alkaline Phosphatase 115 (units unknown) (unknown) (unknown) (no date) (unknown) (unknown) Alkaline Phosphatase (units unknown) (unknown) (unknown) (no date) (unknown) (unknown) All 12 point systems reviewed with the patient and are negative except otherwise (units unknown) (unknown) (unknown) (no date) (unknown) (unknown) Allergies (units unknown) (unknown) (unknown) (no date) (unknown) (unknown) Allergy/AdvReac Type Severity Reaction Status Date / Time (units unknown) (unknown) (unknown) (no date) (unknown) (unknown) Anemia (units unknown) (unknown) (unknown) (no date) (unknown) (unknown) At the time of admit patient's vitals temp 98.3?, BP 143/83, HR 123, R 24, O2 (units unknown) (unknown) (unknown) (no date) (unknown) (unknown) BUN 12 (units unknown) (unknown) (unknown) (no date) (unknown) (unknown) BUN (units unknown) (unknown) (unknown) (no date) (unknown) (unknown) BUN/Creatinine Ratio 21.4 (units unknown) (unknown) (unknown) (no date) (unknown) (unknown) BUN/Creatinine Ratio (units unknown) (unknown) (unknown) (no date) (unknown) (unknown) Baso # (Auto) 0 (units unknown) (unknown) (unknown) (no date) (unknown) (unknown) Baso # (Auto) (units unknown) (unknown) (unknown) (no date) (unknown) (unknown) Baso % (Auto) 0.1 (units unknown) (unknown) (unknown) (no date) (unknown) (unknown) Baso % (Auto) (units unknown) (unknown) (unknown) (no date) (unknown) (unknown) Blood Pressure 143/8 3 H (units unknown) (unknown) (unknown) (no date) (unknown) (unknown) Calcium 8.7 (units unknown) (unknown) (unknown) (no date) (unknown) (unknown) Calcium (units unknown) (unknown) (unknown) (no date) (unknown) (unknown) Carbon Dioxide 19 L (units unknown) (unknown) (unknown) (no date) (unknown) (unknown) Carbon Dioxide (units unknown) (unknown) (unknown) (no date) (unknown) (unknown) Chief complaint: vomiting, back pain was seen earlier today (units unknown) (unknown) (unknown) (no date) (unknown) (unknown) Chloride 99 (units unknown) (unknown) (unknown) (no date) (unknown) (unknown) Chloride (units unknown) (unknown) (unknown) (no date) (unknown) (unknown) Creatinine 0.56 (units unknown) (unknown) (unknown) (no date) (unknown) (unknown) Creatinine (units unknown) (unknown) (unknown) (no date) (unknown) (unknown) Cyclic vomiting syndrome (units unknown) (unknown) (unknown) (no date) (unknown) (unknown) DKA (diabetic ketoacidoses) (units unknown) (unknown) (unknown) (no date) (unknown) (unknown) : 1995 Acct:[id number] (units unknown) (unknown) (unknown) (no date) (unknown) (unknown) Date Patient Seen: 08/12/22 (units unknown) (unknown) (unknown) (no date) (unknown) (unknown) Date of Service: 08/12/22 (units unknown) (unknown) (unknown) (no date) (unknown) (unknown) Diabetes mellitus, type I (units unknown) (unknown) (unknown) (no date) (unknown) (unknown) Eos # (Auto) 0 (units unknown) (unknown) (unknown) (no date) (unknown) (unknown) Eos # (Auto) (units unknown) (unknown) (unknown) (no date) (unknown) (unknown) Eos % (Auto) 0.0 L (units unknown) (unknown) (unknown) (no date) (unknown) (unknown) Eos % (Auto) (units unknown) (unknown) (unknown) (no date) (unknown) (unknown) Estimated GFR > 60 (units unknown) (unknown) (unknown) (no date) (unknown) (unknown) Estimated GFR (units unknown) (unknown) (unknown) (no date) (unknown) (unknown) Ethyl Alcohol < 10 (units unknown) (unknown) (unknown) (no date) (unknown) (unknown) Ethyl Alcohol (units unknown) (unknown) (unknown) (no date) (unknown) (unknown) Exam (units unknown) (unknown) (unknown) (no date) (unknown) (unknown) Family History (units unknown) (unknown) (unknown) (no date) (unknown) (unknown) Father Healthy adult (units unknown) (unknown) (unknown) (no date) (unknown) (unknown) Gastroparesis (units unknown) (unknown) (unknown) (no date) (unknown) (unknown) Globulin 3.1 (units unknown) (unknown) (unknown) (no date) (unknown) (unknown) Globulin (units unknown) (unknown) (unknown) (no date) (unknown) (unknown) Glucose 92 (units unknown) (unknown) (unknown) (no date) (unknown) (unknown) Glucose (units unknown) (unknown) (unknown) (no date) (unknown) (unknown) Hct 34.9 L (units unknown) (unknown) (unknown) (no date) (unknown) (unknown) Hct (units unknown) (unknown) (unknown) (no date) (unknown) (unknown) Hgb 11.4 L (units unknown) (unknown) (unknown) (no date) (unknown) (unknown) Hgb (units unknown) (unknown) (unknown) (no date) (unknown) (unknown) History + Physical Report (units unknown) (unknown) (unknown) (no date) (unknown) (unknown) History of Present Illness (units unknown) (unknown) (unknown) (no date) (unknown) (unknown) History (units unknown) (unknown) (unknown) (no date) (unknown) (unknown) Home Medications and Allergies (units unknown) (unknown) (unknown) (no date) (unknown) (unknown) Home Medications (units unknown) (unknown) (unknown) (no date) (unknown) (unknown) Insulin dependent diabetes mellitus (units unknown) (unknown) (unknown) (no date) (unknown) (unknown) [address] [address] (units unknown) (unknown) (unknown) (no date) (unknown) (unknown) Kaur Morris is 27-year-old female daily smoker (vaping), hx of marijuana daily (units unknown) (unknown) (unknown) (no date) (unknown) (unknown) Ketones 5.09 H (units unknown) (unknown) (unknown) (no date) (unknown) (unknown) Ketones (units unknown) (unknown) (unknown) (no date) (unknown) (unknown) Laboratory Results - last 24 hr (units unknown) (unknown) (unknown) (no date) (unknown) (unknown) Labs (units unknown) (unknown) (unknown) (no date) (unknown) (unknown) Labs: (units unknown) (unknown) (unknown) (no date) (unknown) (unknown) Lactate 2.3 H (units unknown) (unknown) (unknown) (no date) (unknown) (unknown) Lactate (units unknown) (unknown) (unknown) (no date) (unknown) (unknown) Lipase 24 (units unknown) (unknown) (unknown) (no date) (unknown) (unknown) Lipase (units unknown) (unknown) (unknown) (no date) (unknown) (unknown) Lymph # (Auto) 3200 (units unknown) (unknown) (unknown) (no date) (unknown) (unknown) Lymph # (Auto) (units unknown) (unknown) (unknown) (no date) (unknown) (unknown) Lymph % (Auto) 17.7 L (units unknown) (unknown) (unknown) (no date) (unknown) (unknown) Lymph % (Auto) (units unknown) (unknown) (unknown) (no date) (unknown) (unknown) MCH 25.5 L (units unknown) (unknown) (unknown) (no date) (unknown) (unknown) MCH (units unknown) (unknown) (unknown) (no date) (unknown) (unknown) MCHC 32.7 (units unknown) (unknown) (unknown) (no date) (unknown) (unknown) MCHC (units unknown) (unknown) (unknown) (no date) (unknown) (unknown) MCV 78.0 L (units unknown) (unknown) (unknown) (no date) (unknown) (unknown) MCV (units unknown) (unknown) (unknown) (no date) (unknown) (unknown) Magnesium 1.8 (units unknown) (unknown) (unknown) (no date) (unknown) (unknown) Magnesium (units unknown) (unknown) (unknown) (no date) (unknown) (unknown) Medical History (units unknown) (unknown) (unknown) (no date) (unknown) (unknown) Medication Instructions Recorded Confirmed Type (units unknown) (unknown) (unknown) (no date) (unknown) (unknown) Meds (units unknown) (unknown) (unknown) (no date) (unknown) (unknown) Migraine headache with aura (units unknown) (unknown) (unknown) (no date) (unknown) (unknown) O'Brien # (Auto) 900 (units unknown) (unknown) (unknown) (no date) (unknown) (unknown) O'Brien # (Auto) (units unknown) (unknown) (unknown) (no date) (unknown) (unknown) O'Brien % (Auto) 4.8 (units unknown) (unknown) (unknown) (no date) (unknown) (unknown) O'Brien % (Auto) (units unknown) (unknown) (unknown) (no date) (unknown) (unknown) Mother Hypertension (units unknown) (unknown) (unknown) (no date) (unknown) (unknown) Myopia (units unknown) (unknown) (unknown) (no date) (unknown) (unknown) Narrative: (units unknown) (unknown) (unknown) (no date) (unknown) (unknown) Neut # (Auto) 42268 H (units unknown) (unknown) (unknown) (no date) (unknown) (unknown) Neut # (Auto) (units unknown) (unknown) (unknown) (no date) (unknown) (unknown) Neut % (Auto) 77.4 H (units unknown) (unknown) (unknown) (no date) (unknown) (unknown) Neut % (Auto) (units unknown) (unknown) (unknown) (no date) (unknown) (unknown) Objective (units unknown) (unknown) (unknown) (no date) (unknown) (unknown) On admit patient denies chest pain, shortness in breath, headache, changes in (units unknown) (unknown) (unknown) (no date) (unknown) (unknown) Oxygen Delivery Method Room Air (units unknown) (unknown) (unknown) (no date) (unknown) (unknown) PFSH (units unknown) (unknown) (unknown) (no date) (unknown) (unknown) Pancreatitis (units unknown) (unknown) (unknown) (no date) (unknown) (unknown) Patient: Kaur Horton MR (units unknown) (unknown) (unknown) (no date) (unknown) (unknown) Phosphorus 3.1 (units unknown) (unknown) (unknown) (no date) (unknown) (unknown) Phosphorus (units unknown) (unknown) (unknown) (no date) (unknown) (unknown) Plt Count 317 (units unknown) (unknown) (unknown) (no date) (unknown) (unknown) Plt Count (units unknown) (unknown) (unknown) (no date) (unknown) (unknown) Potassium 3.3 L (units unknown) (unknown) (unknown) (no date) (unknown) (unknown) Potassium (units unknown) (unknown) (unknown) (no date) (unknown) (unknown) Procalcitonin 0.19 (units unknown) (unknown) (unknown) (no date) (unknown) (unknown) Procalcitonin (units unknown) (unknown) (unknown) (no date) (unknown) (unknown) Provider: Gracia Smith [employer]-BC (units unknown) (unknown) (unknown) (no date) (unknown) (unknown) Pulse Oximetry 99 98 (units unknown) (unknown) (unknown) (no date) (unknown) (unknown) Pulse Rate 123 H 85 (units unknown) (unknown) (unknown) (no date) (unknown) (unknown) RBC 4.47 (units unknown) (unknown) (unknown) (no date) (unknown) (unknown) RBC (units unknown) (unknown) (unknown) (no date) (unknown) (unknown) RDW 15.9 H (units unknown) (unknown) (unknown) (no date) (unknown) (unknown) RDW (units unknown) (unknown) (unknown) (no date) (unknown) (unknown) Respiratory Rate 24 16 (units unknown) (unknown) (unknown) (no date) (unknown) (unknown) Review of Systems (units unknown) (unknown) (unknown) (no date) (unknown) (unknown) SARS-CoV-2 (PCR) Negative (units unknown) (unknown) (unknown) (no date) (unknown) (unknown) SARS-CoV-2 (PCR) (units unknown) (unknown) (unknown) (no date) (unknown) (unknown) Serum , Sushil l Negative (units unknown) (unknown) (unknown) (no date) (unknown) (unknown) Serum , Qual (units unknown) (unknown) (unknown) (no date) (unknown) (unknown) Signed By: (units unknown) (unknown) (unknown) (no date) (unknown) (unknown) Smoking Status: Current every day smoker (units unknown) (unknown) (unknown) (no date) (unknown) (unknown) Social History (units unknown) (unknown) (unknown) (no date) (unknown) (unknown) Sodium 138 (units unknown) (unknown) (unknown) (no date) (unknown) (unknown) Sodium (units unknown) (unknown) (unknown) (no date) (unknown) (unknown) Status post appendectomy (units unknown) (unknown) (unknown) (no date) (unknown) (unknown) Surgical History (units unknown) (unknown) (unknown) (no date) (unknown) (unknown) Temperature 98.3 F (units unknown) (unknown) (unknown) (no date) (unknown) (unknown) Time Patient Seen: 01:17 (units unknown) (unknown) (unknown) (no date) (unknown) (unknown) Total Bilirubin 1.0 (units unknown) (unknown) (unknown) (no date) (unknown) (unknown) Total Bilirubin (units unknown) (unknown) (unknown) (no date) (unknown) (unknown) Total Protein 7.8 (units unknown) (unknown) (unknown) (no date) (unknown) (unknown) Total Protein (units unknown) (unknown) (unknown) (no date) (unknown) (unknown) U-100 Insulin aspart) (units unknown) (unknown) (unknown) (no date) (unknown) (unknown) Vital Signs (units unknown) (unknown) (unknown) (no date) (unknown) (unknown) WBC 18.1 H (units unknown) (unknown) (unknown) (no date) (unknown) (unknown) WBC (units unknown) (unknown) (unknown) (no date) (unknown) (unknown) [Embedded Image Not Available] (units unknown) (unknown) (unknown) (no date) (unknown) (unknown) alcohol intake: never (units unknown) (unknown) (unknown) (no date) (unknown) (unknown) antibiotics was unable to keep them down and failed oral challenge in ED. (units unknown) (unknown) (unknown) (no date) (unknown) (unknown) antibiotics/antiemet i cs was unable to fill them as the pharmacies were closed (units unknown) (unknown) (unknown) (no date) (unknown) (unknown) constipation, incontinence, melena, rashes, recent changes to medication, (units unknown) (unknown) (unknown) (no date) (unknown) (unknown) cultures obtained tonight-pending. Patient admitted for lactic acidosis sepsis (units unknown) (unknown) (unknown) (no date) (unknown) (unknown) documented. (units unknown) (unknown) (unknown) (no date) (unknown) (unknown) exposure to illness, abdominal pain, nausea, vomiting, urinary (units unknown) (unknown) (unknown) (no date) (unknown) (unknown) household members: spouse (units unknown) (unknown) (unknown) (no date) (unknown) (unknown) illness, injury, or trauma. (units unknown) (unknown) (unknown) (no date) (unknown) (unknown) incontinence/retenti o n, dysuria, frequency, urgency, hematuria, bowel changes, (units unknown) (unknown) (unknown) (no date) (unknown) (unknown) insulin aspart U-100 100 unit/mL 56 SUBCUT DAILY 08/12/22 History (units unknown) (unknown) (unknown) (no date) (unknown) (unknown) insulin syringes (disposable) 1 mL #500 ea 08/04/20 02/07/22 Rx (units unknown) (unknown) (unknown) (no date) (unknown) (unknown) ketorolac [From Toradol] Allergy Verified 08/10/22 14:43 (units unknown) (unknown) (unknown) (no date) (unknown) (unknown) meets SIRS severe sepsis criteria, H+H 11.4/34.9, MCV 78, MCH 25.5. Hypokalemia (units unknown) (unknown) (unknown) (no date) (unknown) (unknown) metoclopramide HCl 5 mg/5 mL oral 5 mg PO Q8H PRN Nausea 08/12/22 08/12/22 (units unknown) (unknown) (unknown) (no date) (unknown) (unknown) mg-trimethoprim 160 mg tablet (units unknown) (unknown) (unknown) (no date) (unknown) (unknown) patient in ED had a BP of 123/77 but was tachycardic HR 111, tachypneic RR 21. (units unknown) (unknown) (unknown) (no date) (unknown) (unknown) potassium 3.3, bicar b 19, glucose 92, anion gap 20, not in DKA Patient's urine (units unknown) (unknown) (unknown) (no date) (unknown) (unknown) promethazine 12.5 mg tablet 25 mg PO BID PRN nausea and 08/12/22 08/12/22 (units unknown) (unknown) (unknown) (no date) (unknown) (unknown) promethazine 25 mg rectal 25 mg PA Q4-6H PRN Nausea And 01/27/22 08/12/22 (units unknown) (unknown) (unknown) (no date) (unknown) (unknown) return to the ED thi s morning was treated once again discharged home returned (units unknown) (unknown) (unknown) (no date) (unknown) (unknown) saturation 99% on room air WBC 18.1, neutrophils 14,000, lactate 2.3 patient (units unknown) (unknown) (unknown) (no date) (unknown) (unknown) solution (units unknown) (unknown) (unknown) (no date) (unknown) (unknown) subcutaneous solutio n (Novolog (units unknown) (unknown) (unknown) (no date) (unknown) (unknown) sulfamethoxazole 800 1 tab PO Q12H 10 days #20 tabs 08/11/22 08/12/22 Rx (units unknown) (unknown) (unknown) (no date) (unknown) (unknown) suppository ([facility]) Vomiting (units unknown) (unknown) (unknown) (no date) (unknown) (unknown) the ED yesterday for nausea vomiting with UTI, was given prescription for (units unknown) (unknown) (unknown) (no date) (unknown) (unknown) this evening with intractable nausea and vomiting after picking up her (units unknown) (unknown) (unknown) (no date) (unknown) (unknown) type 1 diabetes, wit h peripheral neuropathy and gastroparesis who presented to (units unknown) (unknown) (unknown) (no date) (unknown) (unknown) use, cannabis hyperemesis syndrome, cyclic vomiting syndrome, GERD, migraines, (units unknown) (unknown) (unknown) (no date) (unknown) (unknown) vision, difficulty swallowing, speech impairment, numbness, tingling, difficulty (units unknown) (unknown) (unknown) (no date) (unknown) (unknown) vomiting (units unknown) (unknown) (unknown) (no date) (unknown) (unknown) was positive for UTI and urine cultures were collected yesterday from ED, blood (units unknown) (unknown) (unknown) (no date) (unknown) (unknown) with ambulation, recent falls, head injury, LOC, fever, chills, cough, recent (units unknown) (unknown) (unknown) (no date) (unknown) (unknown) without shock, due t o UTI/pyelonephritis. (units unknown) (unknown) Result panel 1613 (unknown) (no date) (unknown) (unknown) (no value) (units unknown) (unknown) (unknown) (no date) (unknown) (unknown) #: [id number] (units unknown) (unknown) (unknown) (no date) (unknown) (unknown) < 1.0 mg/dl (unknown) (unknown) (no date) (unknown) (unknown) < 1.0 mg/dl (unknown) (unknown) (no date) (unknown) (unknown) (Bactrim DS) (units unknown) (unknown) (unknown) (no date) (unknown) (unknown) (past 8 hours): (units unknown) (unknown) (unknown) (no date) (unknown) (unknown) 00:06 00:06 00:06 (units unknown) (unknown) (unknown) (no date) (unknown) (unknown) 00:06 00:30 (units unknown) (unknown) (unknown) (no date) (unknown) (unknown) 01:00 (units unknown) (unknown) (unknown) (no date) (unknown) (unknown) 08/11/22 (units unknown) (unknown) (unknown) (no date) (unknown) (unknown) 08/12/22 00:06 (units unknown) (unknown) (unknown) (no date) (unknown) (unknown) 08/12/22 08/12/22 08/12/22 (units unknown) (unknown) (unknown) (no date) (unknown) (unknown) 08/12/22 08/12/22 (units unknown) (unknown) (unknown) (no date) (unknown) (unknown) 23:55 08/12/22 (units unknown) (unknown) (unknown) (no date) (unknown) (unknown) ALT 20 (units unknown) (unknown) (unknown) (no date) (unknown) (unknown) ALT (units unknown) (unknown) (unknown) (no date) (unknown) (unknown) AST 31 (units unknown) (unknown) (unknown) (no date) (unknown) (unknown) AST (units unknown) (unknown) (unknown) (no date) (unknown) (unknown) Abdomen: Soft diffus e generalized tenderness radiation around to back, negative (units unknown) (unknown) (unknown) (no date) (unknown) (unknown) Age/Sex: 27 / F (units unknown) (unknown) (unknown) (no date) (unknown) (unknown) Albumin 4.7 (units unknown) (unknown) (unknown) (no date) (unknown) (unknown) Albumin (units unknown) (unknown) (unknown) (no date) (unknown) (unknown) Albumin/Globulin Ratio 1.5 (units unknown) (unknown) (unknown) (no date) (unknown) (unknown) Albumin/Globulin Ratio (units unknown) (unknown) (unknown) (no date) (unknown) (unknown) Alkaline Phosphatase 115 (units unknown) (unknown) (unknown) (no date) (unknown) (unknown) Alkaline Phosphatase (units unknown) (unknown) (unknown) (no date) (unknown) (unknown) All 12 point systems reviewed with the patient and are negative except otherwise (units unknown) (unknown) (unknown) (no date) (unknown) (unknown) Allergies (units unknown) (unknown) (unknown) (no date) (unknown) (unknown) Allergy/AdvReac Type Severity Reaction Status Date / Time (units unknown) (unknown) (unknown) (no date) (unknown) (unknown) Anemia (units unknown) (unknown) (unknown) (no date) (unknown) (unknown) At the time of admit patient's vitals temp 98.3?, BP 143/83, HR 123, R 24, O2 (units unknown) (unknown) (unknown) (no date) (unknown) (unknown) BUN 12 (units unknown) (unknown) (unknown) (no date) (unknown) (unknown) BUN (units unknown) (unknown) (unknown) (no date) (unknown) (unknown) BUN/Creatinine Ratio 21.4 (units unknown) (unknown) (unknown) (no date) (unknown) (unknown) BUN/Creatinine Ratio (units unknown) (unknown) (unknown) (no date) (unknown) (unknown) Baso # (Auto) 0 (units unknown) (unknown) (unknown) (no date) (unknown) (unknown) Baso # (Auto) (units unknown) (unknown) (unknown) (no date) (unknown) (unknown) Baso % (Auto) 0.1 (units unknown) (unknown) (unknown) (no date) (unknown) (unknown) Baso % (Auto) (units unknown) (unknown) (unknown) (no date) (unknown) (unknown) Blood Pressure 143/8 3 H (units unknown) (unknown) (unknown) (no date) (unknown) (unknown) Calcium 8.7 (units unknown) (unknown) (unknown) (no date) (unknown) (unknown) Calcium (units unknown) (unknown) (unknown) (no date) (unknown) (unknown) Carbon Dioxide 19 L (units unknown) (unknown) (unknown) (no date) (unknown) (unknown) Carbon Dioxide (units unknown) (unknown) (unknown) (no date) (unknown) (unknown) Cardio: Tachycardic regular rate and rhythm without murmur, rubs, or gallops, (units unknown) (unknown) (unknown) (no date) (unknown) (unknown) Chest: Breathing without nasal flaring, retractions, or labored, but is (units unknown) (unknown) (unknown) (no date) (unknown) (unknown) Chief complaint: vomiting, back pain was seen earlier today (units unknown) (unknown) (unknown) (no date) (unknown) (unknown) Chloride 99 (units unknown) (unknown) (unknown) (no date) (unknown) (unknown) Chloride (units unknown) (unknown) (unknown) (no date) (unknown) (unknown) Creatinine 0.56 (units unknown) (unknown) (unknown) (no date) (unknown) (unknown) Creatinine (units unknown) (unknown) (unknown) (no date) (unknown) (unknown) Cyclic vomiting syndrome (units unknown) (unknown) (unknown) (no date) (unknown) (unknown) DKA (diabetic ketoacidoses) (units unknown) (unknown) (unknown) (no date) (unknown) (unknown) : 1995 Acct:[id number] (units unknown) (unknown) (unknown) (no date) (unknown) (unknown) Date Patient Seen: 08/12/22 (units unknown) (unknown) (unknown) (no date) (unknown) (unknown) Date of Service: 08/12/22 (units unknown) (unknown) (unknown) (no date) (unknown) (unknown) Diabetes mellitus, type I (units unknown) (unknown) (unknown) (no date) (unknown) (unknown) Eos # (Auto) 0 (units unknown) (unknown) (unknown) (no date) (unknown) (unknown) Eos # (Auto) (units unknown) (unknown) (unknown) (no date) (unknown) (unknown) Eos % (Auto) 0.0 L (units unknown) (unknown) (unknown) (no date) (unknown) (unknown) Eos % (Auto) (units unknown) (unknown) (unknown) (no date) (unknown) (unknown) Estimated GFR > 60 (units unknown) (unknown) (unknown) (no date) (unknown) (unknown) Estimated GFR (units unknown) (unknown) (unknown) (no date) (unknown) (unknown) Ethyl Alcohol < 10 (units unknown) (unknown) (unknown) (no date) (unknown) (unknown) Ethyl Alcohol (units unknown) (unknown) (unknown) (no date) (unknown) (unknown) Exam Narrative: (units unknown) (unknown) (unknown) (no date) (unknown) (unknown) Exam (units unknown) (unknown) (unknown) (no date) (unknown) (unknown) Family History (units unknown) (unknown) (unknown) (no date) (unknown) (unknown) Father Healthy adult (units unknown) (unknown) (unknown) (no date) (unknown) (unknown) Gastroparesis (units unknown) (unknown) (unknown) (no date) (unknown) (unknown) General: Patient is a well-developed, well-nourished in mild distress shaking (units unknown) (unknown) (unknown) (no date) (unknown) (unknown) Globulin 3.1 (units unknown) (unknown) (unknown) (no date) (unknown) (unknown) Globulin (units unknown) (unknown) (unknown) (no date) (unknown) (unknown) Glucose 92 (units unknown) (unknown) (unknown) (no date) (unknown) (unknown) Glucose (units unknown) (unknown) (unknown) (no date) (unknown) (unknown) HEENT: Normocephalic , atraumatic, extraocular muscles intact, oral pharynx is (units unknown) (unknown) (unknown) (no date) (unknown) (unknown) Hct 34.9 L (units unknown) (unknown) (unknown) (no date) (unknown) (unknown) Hct (units unknown) (unknown) (unknown) (no date) (unknown) (unknown) Hgb 11.4 L (units unknown) (unknown) (unknown) (no date) (unknown) (unknown) Hgb (units unknown) (unknown) (unknown) (no date) (unknown) (unknown) History + Physical Report (units unknown) (unknown) (unknown) (no date) (unknown) (unknown) History of Present Illness (units unknown) (unknown) (unknown) (no date) (unknown) (unknown) History (units unknown) (unknown) (unknown) (no date) (unknown) (unknown) Home Medications and Allergies (units unknown) (unknown) (unknown) (no date) (unknown) (unknown) Home Medications (units unknown) (unknown) (unknown) (no date) (unknown) (unknown) Insulin dependent diabetes mellitus (units unknown) (unknown) (unknown) (no date) (unknown) (unknown) [address] [address] (units unknown) (unknown) (unknown) (no date) (unknown) (unknown) Kaur Morris is 27-year-old female daily smoker (vaping), hx of marijuana daily (units unknown) (unknown) (unknown) (no date) (unknown) (unknown) Ketones 5.09 H (units unknown) (unknown) (unknown) (no date) (unknown) (unknown) Ketones (units unknown) (unknown) (unknown) (no date) (unknown) (unknown) Laboratory Results - last 24 hr (units unknown) (unknown) (unknown) (no date) (unknown) (unknown) Labs (units unknown) (unknown) (unknown) (no date) (unknown) (unknown) Labs: (units unknown) (unknown) (unknown) (no date) (unknown) (unknown) Lactate 2.3 H (units unknown) (unknown) (unknown) (no date) (unknown) (unknown) Lactate (units unknown) (unknown) (unknown) (no date) (unknown) (unknown) Lipase 24 (units unknown) (unknown) (unknown) (no date) (unknown) (unknown) Lipase (units unknown) (unknown) (unknown) (no date) (unknown) (unknown) Lungs: Auscultation of all lung hendricks are clear without adventitious sounds, (units unknown) (unknown) (unknown) (no date) (unknown) (unknown) Lymph # (Auto) 3200 (units unknown) (unknown) (unknown) (no date) (unknown) (unknown) Lymph # (Auto) (units unknown) (unknown) (unknown) (no date) (unknown) (unknown) Lymph % (Auto) 17.7 L (units unknown) (unknown) (unknown) (no date) (unknown) (unknown) Lymph % (Auto) (units unknown) (unknown) (unknown) (no date) (unknown) (unknown) MCH 25.5 L (units unknown) (unknown) (unknown) (no date) (unknown) (unknown) MCH (units unknown) (unknown) (unknown) (no date) (unknown) (unknown) MCHC 32.7 (units unknown) (unknown) (unknown) (no date) (unknown) (unknown) MCHC (units unknown) (unknown) (unknown) (no date) (unknown) (unknown) MCV 78.0 L (units unknown) (unknown) (unknown) (no date) (unknown) (unknown) MCV (units unknown) (unknown) (unknown) (no date) (unknown) (unknown) Magnesium 1.8 (units unknown) (unknown) (unknown) (no date) (unknown) (unknown) Magnesium (units unknown) (unknown) (unknown) (no date) (unknown) (unknown) Medical History (units unknown) (unknown) (unknown) (no date) (unknown) (unknown) Medication Instructions Recorded Confirmed Type (units unknown) (unknown) (unknown) (no date) (unknown) (unknown) Meds (units unknown) (unknown) (unknown) (no date) (unknown) (unknown) Migraine headache with aura (units unknown) (unknown) (unknown) (no date) (unknown) (unknown) O'Brien # (Auto) 900 (units unknown) (unknown) (unknown) (no date) (unknown) (unknown) O'Brien # (Auto) (units unknown) (unknown) (unknown) (no date) (unknown) (unknown) O'Brien % (Auto) 4.8 (units unknown) (unknown) (unknown) (no date) (unknown) (unknown) O'Brien % (Auto) (units unknown) (unknown) (unknown) (no date) (unknown) (unknown) Mother Hypertension (units unknown) (unknown) (unknown) (no date) (unknown) (unknown) Musculoskeletal: Muscle strength and tone are equal within normal limits, no (units unknown) (unknown) (unknown) (no date) (unknown) (unknown) Myopia (units unknown) (unknown) (unknown) (no date) (unknown) (unknown) Narrative (units unknown) (unknown) (unknown) (no date) (unknown) (unknown) Narrative: (units unknown) (unknown) (unknown) (no date) (unknown) (unknown) Negative for JVD (units unknown) (unknown) (unknown) (no date) (unknown) (unknown) Neuro: Alert and orientated x3, strength is +5/5 in all extremities, sensation (units unknown) (unknown) (unknown) (no date) (unknown) (unknown) Neut # (Auto) 05010 H (units unknown) (unknown) (unknown) (no date) (unknown) (unknown) Neut # (Auto) (units unknown) (unknown) (unknown) (no date) (unknown) (unknown) Neut % (Auto) 77.4 H (units unknown) (unknown) (unknown) (no date) (unknown) (unknown) Neut % (Auto) (units unknown) (unknown) (unknown) (no date) (unknown) (unknown) Objective (units unknown) (unknown) (unknown) (no date) (unknown) (unknown) On admit patient denies chest pain, shortness in breath, headache, changes in (units unknown) (unknown) (unknown) (no date) (unknown) (unknown) Oxygen Delivery Method Room Air (units unknown) (unknown) (unknown) (no date) (unknown) (unknown) PFSH (units unknown) (unknown) (unknown) (no date) (unknown) (unknown) Pancreatitis (units unknown) (unknown) (unknown) (no date) (unknown) (unknown) Patient: Kaur Horton MR (units unknown) (unknown) (unknown) (no date) (unknown) (unknown) Phosphorus 3.1 (units unknown) (unknown) (unknown) (no date) (unknown) (unknown) Phosphorus (units unknown) (unknown) (unknown) (no date) (unknown) (unknown) Plt Count 317 (units unknown) (unknown) (unknown) (no date) (unknown) (unknown) Plt Count (units unknown) (unknown) (unknown) (no date) (unknown) (unknown) Potassium 3.3 L (units unknown) (unknown) (unknown) (no date) (unknown) (unknown) Potassium (units unknown) (unknown) (unknown) (no date) (unknown) (unknown) Procalcitonin 0.19 (units unknown) (unknown) (unknown) (no date) (unknown) (unknown) Procalcitonin (units unknown) (unknown) (unknown) (no date) (unknown) (unknown) Provider: Gracia Smith (units unknown) (unknown) (unknown) (no date) (unknown) (unknown) Psych: Patient has a well-kept appearance, appropriate affect, mental status (units unknown) (unknown) (unknown) (no date) (unknown) (unknown) Pulse Oximetry 99 98 (units unknown) (unknown) (unknown) (no date) (unknown) (unknown) Pulse Rate 123 H 85 (units unknown) (unknown) (unknown) (no date) (unknown) (unknown) RBC 4.47 (units unknown) (unknown) (unknown) (no date) (unknown) (unknown) RBC (units unknown) (unknown) (unknown) (no date) (unknown) (unknown) RDW 15.9 H (units unknown) (unknown) (unknown) (no date) (unknown) (unknown) RDW (units unknown) (unknown) (unknown) (no date) (unknown) (unknown) Respiratory Rate 24 16 (units unknown) (unknown) (unknown) (no date) (unknown) (unknown) Review of Systems (units unknown) (unknown) (unknown) (no date) (unknown) (unknown) SARS-CoV-2 (PCR) Negative (units unknown) (unknown) (unknown) (no date) (unknown) (unknown) SARS-CoV-2 (PCR) (units unknown) (unknown) (unknown) (no date) (unknown) (unknown) Serum , Sushil l Negative (units unknown) (unknown) (unknown) (no date) (unknown) (unknown) Serum , Qual (units unknown) (unknown) (unknown) (no date) (unknown) (unknown) Signed By: (units unknown) (unknown) (unknown) (no date) (unknown) (unknown) Skin: Warm dry and intact without rashes, ulcerations or petechiae. (units unknown) (unknown) (unknown) (no date) (unknown) (unknown) Smoking Status: Current every day smoker (units unknown) (unknown) (unknown) (no date) (unknown) (unknown) Social History (units unknown) (unknown) (unknown) (no date) (unknown) (unknown) Sodium 138 (units unknown) (unknown) (unknown) (no date) (unknown) (unknown) Sodium (units unknown) (unknown) (unknown) (no date) (unknown) (unknown) Status post appendectomy (units unknown) (unknown) (unknown) (no date) (unknown) (unknown) Surgical History (units unknown) (unknown) (unknown) (no date) (unknown) (unknown) Temperature 98.3 F (units unknown) (unknown) (unknown) (no date) (unknown) (unknown) Time Patient Seen: 01:17 (units unknown) (unknown) (unknown) (no date) (unknown) (unknown) Total Bilirubin 1.0 (units unknown) (unknown) (unknown) (no date) (unknown) (unknown) Total Bilirubin (units unknown) (unknown) (unknown) (no date) (unknown) (unknown) Total Protein 7.8 (units unknown) (unknown) (unknown) (no date) (unknown) (unknown) Total Protein (units unknown) (unknown) (unknown) (no date) (unknown) (unknown) U-100 Insulin aspart) (units unknown) (unknown) (unknown) (no date) (unknown) (unknown) Vital Signs (units unknown) (unknown) (unknown) (no date) (unknown) (unknown) WBC 18.1 H (units unknown) (unknown) (unknown) (no date) (unknown) (unknown) WBC (units unknown) (unknown) (unknown) (no date) (unknown) (unknown) [Embedded Image Not Available] (units unknown) (unknown) (unknown) (no date) (unknown) (unknown) alcohol intake: never (units unknown) (unknown) (unknown) (no date) (unknown) (unknown) antibiotics was unable to keep them down and failed oral challenge in ED. (units unknown) (unknown) (unknown) (no date) (unknown) (unknown) antibiotics/antiemet i cs was unable to fill them as the pharmacies were closed (units unknown) (unknown) (unknown) (no date) (unknown) (unknown) attitude thought context and judgment are appropriate for age. (units unknown) (unknown) (unknown) (no date) (unknown) (unknown) clear and mucous membranes are dry. Neck is supple and symmetric, trachea is (units unknown) (unknown) (unknown) (no date) (unknown) (unknown) constipation, incontinence, melena, rashes, recent changes to medication, (units unknown) (unknown) (unknown) (no date) (unknown) (unknown) cultures obtained tonight-pending. Patient admitted for lactic acidosis sepsis (units unknown) (unknown) (unknown) (no date) (unknown) (unknown) deformity, crepitus, effusions, cyanosis, clubbing or edema present. Full range (units unknown) (unknown) (unknown) (no date) (unknown) (unknown) documented. (units unknown) (unknown) (unknown) (no date) (unknown) (unknown) exposure to illness, abdominal pain, nausea, vomiting, urinary (units unknown) (unknown) (unknown) (no date) (unknown) (unknown) for organomegaly, or masses. Bowel sounds are present in all 4 quadrants (units unknown) (unknown) (unknown) (no date) (unknown) (unknown) household members: spouse (units unknown) (unknown) (unknown) (no date) (unknown) (unknown) illness, injury, or trauma. (units unknown) (unknown) (unknown) (no date) (unknown) (unknown) incontinence/retenti o n, dysuria, frequency, urgency, hematuria, bowel changes, (units unknown) (unknown) (unknown) (no date) (unknown) (unknown) insulin aspart U-100 100 unit/mL 56 SUBCUT DAILY 08/12/22 History (units unknown) (unknown) (unknown) (no date) (unknown) (unknown) insulin syringes (disposable) 1 mL #500 ea 08/04/20 02/07/22 Rx (units unknown) (unknown) (unknown) (no date) (unknown) (unknown) ketorolac [From Toradol] Allergy Verified 08/10/22 14:43 (units unknown) (unknown) (unknown) (no date) (unknown) (unknown) meets SIRS severe sepsis criteria, H+H 11.4/34.9, MCV 78, MCH 25.5. Hypokalemia (units unknown) (unknown) (unknown) (no date) (unknown) (unknown) metoclopramide HCl 5 mg/5 mL oral 5 mg PO Q8H PRN Nausea 08/12/22 08/12/22 (units unknown) (unknown) (unknown) (no date) (unknown) (unknown) mg-trimethoprim 160 mg tablet (units unknown) (unknown) (unknown) (no date) (unknown) (unknown) midline, no adenopathy, no thyroid enlargement, nontender, no masses palpated. (units unknown) (unknown) (unknown) (no date) (unknown) (unknown) no carotid bruit, no cardiac pulsations present. (units unknown) (unknown) (unknown) (no date) (unknown) (unknown) of motion intact radial and pedal pulses are normal. (units unknown) (unknown) (unknown) (no date) (unknown) (unknown) patient in ED had a BP of 123/77 but was tachycardic HR 111, tachypneic RR 21. (units unknown) (unknown) (unknown) (no date) (unknown) (unknown) potassium 3.3, bicar b 19, glucose 92, anion gap 20, not in DKA Patient's urine (units unknown) (unknown) (unknown) (no date) (unknown) (unknown) promethazine 12.5 mg tablet 25 mg PO BID PRN nausea and 08/12/22 08/12/22 (units unknown) (unknown) (unknown) (no date) (unknown) (unknown) promethazine 25 mg rectal 25 mg PA Q4-6H PRN Nausea And 01/27/22 08/12/22 (units unknown) (unknown) (unknown) (no date) (unknown) (unknown) return to the ED thi s morning was treated once again discharged home returned (units unknown) (unknown) (unknown) (no date) (unknown) (unknown) saturation 99% on room air WBC 18.1, neutrophils 14,000, lactate 2.3 patient (units unknown) (unknown) (unknown) (no date) (unknown) (unknown) solution (units unknown) (unknown) (unknown) (no date) (unknown) (unknown) subcutaneous solutio n (Novolog (units unknown) (unknown) (unknown) (no date) (unknown) (unknown) sulfamethoxazole 800 1 tab PO Q12H 10 days #20 tabs 08/11/22 08/12/22 Rx (units unknown) (unknown) (unknown) (no date) (unknown) (unknown) suppository (Promethegan) Vomiting (units unknown) (unknown) (unknown) (no date) (unknown) (unknown) tachypneic (units unknown) (unknown) (unknown) (no date) (unknown) (unknown) that the pt can overcome, in no respiratory distress at this time. (units unknown) (unknown) (unknown) (no date) (unknown) (unknown) the ED yesterday for nausea vomiting with UTI, was given prescription for (units unknown) (unknown) (unknown) (no date) (unknown) (unknown) this evening with intractable nausea and vomiting after picking up her (units unknown) (unknown) (unknown) (no date) (unknown) (unknown) to touch intact, no gross deficits noted of cranial nerves. (units unknown) (unknown) (unknown) (no date) (unknown) (unknown) type 1 diabetes, wit h peripheral neuropathy and gastroparesis who presented to (units unknown) (unknown) (unknown) (no date) (unknown) (unknown) use, cannabis hyperemesis syndrome, cyclic vomiting syndrome, GERD, migraines, (units unknown) (unknown) (unknown) (no date) (unknown) (unknown) vision, difficulty swallowing, speech impairment, numbness, tingling, difficulty (units unknown) (unknown) (unknown) (no date) (unknown) (unknown) vomiting (units unknown) (unknown) (unknown) (no date) (unknown) (unknown) was positive for UTI and urine cultures were collected yesterday from ED, blood (units unknown) (unknown) (unknown) (no date) (unknown) (unknown) wheezes, rhonchi, or rales. (units unknown) (unknown) (unknown) (no date) (unknown) (unknown) with ambulation, recent falls, head injury, LOC, fever, chills, cough, recent (units unknown) (unknown) (unknown) (no date) (unknown) (unknown) without guarding or rebound, positive CVA tenderness. (units unknown) (unknown) (unknown) (no date) (unknown) (unknown) without shock, due t o UTI/pyelonephritis. (units unknown) (unknown) Result panel 1614 (unknown) (no date) (unknown) (unknown) < 0.012 ng/ml (unknown) (unknown) (no date) (unknown) (unknown) < 0.012 ng/ml (unknown) (unknown) (no date) (unknown) (unknown) 609 pg/ml (unknown) (unknown) (no date) (unknown) (unknown) 609 pg/ml (unknown) Result panel 1615 (unknown) (no date) (unknown) (unknown) (no value) (units unknown) (unknown) (unknown) (no date) (unknown) (unknown) #: [id number] (units unknown) (unknown) (unknown) (no date) (unknown) (unknown) (Bactrim DS) (units unknown) (unknown) (unknown) (no date) (unknown) (unknown) (past 8 hours): (units unknown) (unknown) (unknown) (no date) (unknown) (unknown) - last A1c 2 6.3 -reviewed endocrinology notes (units unknown) (unknown) (unknown) (no date) (unknown) (unknown) - potassium 3.3, bicarb 19, glucose 92, anion gap 20, not in DKA (units unknown) (unknown) (unknown) (no date) (unknown) (unknown) -Admit: 98.3?, BP 143/83, HR 123, R 24, O2 saturation 99% (units unknown) (unknown) (unknown) (no date) (unknown) (unknown) -BNP q.4 hours, glucose checks q.2 hours (units unknown) (unknown) (unknown) (no date) (unknown) (unknown) -ED: BP of 123/77 bu t was tachycardic HR 111, tachypneic RR 21. (units unknown) (unknown) (unknown) (no date) (unknown) (unknown) -Haldol 0.5 4 times daily-for antiemetic control, in addition to Phenergan (units unknown) (unknown) (unknown) (no date) (unknown) (unknown) -UA positive for UTI , urine culture pending, blood culture pending (units unknown) (unknown) (unknown) (no date) (unknown) (unknown) -WBC 18.1, neutrophils 14,000, lactate 2.3 patient meets SIRS severe sepsis (units unknown) (unknown) (unknown) (no date) (unknown) (unknown) -antiemetics, pain control (units unknown) (unknown) (unknown) (no date) (unknown) (unknown) -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 Astudillo (units unknown) (unknown) (unknown) (no date) (unknown) (unknown) -initiated for complicated sepsis UTI meropenem and vancomycin- alter based on (units unknown) (unknown) (unknown) (no date) (unknown) (unknown) -on admit initiated sepsis bolus 30 cc/kg per hour (units unknown) (unknown) (unknown) (no date) (unknown) (unknown) -patient given Rocephin in ED (units unknown) (unknown) (unknown) (no date) (unknown) (unknown) -potassium 3.3, bicarb 19, glucose 92, anion gap 20, not in DKA (units unknown) (unknown) (unknown) (no date) (unknown) (unknown) -strict I+O, notify for UOP< 50 cc/HR (units unknown) (unknown) (unknown) (no date) (unknown) (unknown) -to be followed by N S at 100 cc/HR (units unknown) (unknown) (unknown) (no date) (unknown) (unknown) 00:06 00:06 00:06 (units unknown) (unknown) (unknown) (no date) (unknown) (unknown) 00:06 00:30 (units unknown) (unknown) (unknown) (no date) (unknown) (unknown) 01:00 (units unknown) (unknown) (unknown) (no date) (unknown) (unknown) 08/11/22 (units unknown) (unknown) (unknown) (no date) (unknown) (unknown) 08/12/22 00:06 (units unknown) (unknown) (unknown) (no date) (unknown) (unknown) 08/12/22 08/12/22 08/12/22 (units unknown) (unknown) (unknown) (no date) (unknown) (unknown) 08/12/22 08/12/22 (units unknown) (unknown) (unknown) (no date) (unknown) (unknown) 1. Lactic acidosis sepsis without septic shock due to UTI/pyelonephritis, with (units unknown) (unknown) (unknown) (no date) (unknown) (unknown) 2. Insulin-dependent type 1 diabetic with peripheral neuropathy and (units unknown) (unknown) (unknown) (no date) (unknown) (unknown) 23:55 08/12/22 (units unknown) (unknown) (unknown) (no date) (unknown) (unknown) ALT 20 (units unknown) (unknown) (unknown) (no date) (unknown) (unknown) ALT (units unknown) (unknown) (unknown) (no date) (unknown) (unknown) AST 31 (units unknown) (unknown) (unknown) (no date) (unknown) (unknown) AST (units unknown) (unknown) (unknown) (no date) (unknown) (unknown) Abdomen: Soft diffus e generalized tenderness radiation around to back, negative (units unknown) (unknown) (unknown) (no date) (unknown) (unknown) Age/Sex: 27 / F (units unknown) (unknown) (unknown) (no date) (unknown) (unknown) Albumin 4.7 (units unknown) (unknown) (unknown) (no date) (unknown) (unknown) Albumin (units unknown) (unknown) (unknown) (no date) (unknown) (unknown) Albumin/Globulin Ratio 1.5 (units unknown) (unknown) (unknown) (no date) (unknown) (unknown) Albumin/Globulin Ratio (units unknown) (unknown) (unknown) (no date) (unknown) (unknown) Alkaline Phosphatase 115 (units unknown) (unknown) (unknown) (no date) (unknown) (unknown) Alkaline Phosphatase (units unknown) (unknown) (unknown) (no date) (unknown) (unknown) All 12 point systems reviewed with the patient and are negative except otherwise (units unknown) (unknown) (unknown) (no date) (unknown) (unknown) Allergies (units unknown) (unknown) (unknown) (no date) (unknown) (unknown) Allergy/AdvReac Type Severity Reaction Status Date / Time (units unknown) (unknown) (unknown) (no date) (unknown) (unknown) Anemia (units unknown) (unknown) (unknown) (no date) (unknown) (unknown) Assessment + Plan narrative: (units unknown) (unknown) (unknown) (no date) (unknown) (unknown) Assessment + Plan (units unknown) (unknown) (unknown) (no date) (unknown) (unknown) At the time of admit patient's vitals temp 98.3?, BP 143/83, HR 123, R 24, O2 (units unknown) (unknown) (unknown) (no date) (unknown) (unknown) BUN 12 (units unknown) (unknown) (unknown) (no date) (unknown) (unknown) BUN (units unknown) (unknown) (unknown) (no date) (unknown) (unknown) BUN/Creatinine Ratio 21.4 (units unknown) (unknown) (unknown) (no date) (unknown) (unknown) BUN/Creatinine Ratio (units unknown) (unknown) (unknown) (no date) (unknown) (unknown) Baso # (Auto) 0 (units unknown) (unknown) (unknown) (no date) (unknown) (unknown) Baso # (Auto) (units unknown) (unknown) (unknown) (no date) (unknown) (unknown) Baso % (Auto) 0.1 (units unknown) (unknown) (unknown) (no date) (unknown) (unknown) Baso % (Auto) (units unknown) (unknown) (unknown) (no date) (unknown) (unknown) Blood Pressure 143/8 3 H (units unknown) (unknown) (unknown) (no date) (unknown) (unknown) Calcium 8.7 (units unknown) (unknown) (unknown) (no date) (unknown) (unknown) Calcium (units unknown) (unknown) (unknown) (no date) (unknown) (unknown) Carbon Dioxide 19 L (units unknown) (unknown) (unknown) (no date) (unknown) (unknown) Carbon Dioxide (units unknown) (unknown) (unknown) (no date) (unknown) (unknown) Cardio: Tachycardic regular rate and rhythm without murmur, rubs, or gallops, (units unknown) (unknown) (unknown) (no date) (unknown) (unknown) Chest: Breathing without nasal flaring, retractions, or labored, but is (units unknown) (unknown) (unknown) (no date) (unknown) (unknown) Chief complaint: vomiting, back pain was seen earlier today (units unknown) (unknown) (unknown) (no date) (unknown) (unknown) Chloride 99 (units unknown) (unknown) (unknown) (no date) (unknown) (unknown) Chloride (units unknown) (unknown) (unknown) (no date) (unknown) (unknown) Creatinine 0.56 (units unknown) (unknown) (unknown) (no date) (unknown) (unknown) Creatinine (units unknown) (unknown) (unknown) (no date) (unknown) (unknown) Cyclic vomiting syndrome (units unknown) (unknown) (unknown) (no date) (unknown) (unknown) DKA (diabetic ketoacidoses) (units unknown) (unknown) (unknown) (no date) (unknown) (unknown) : 1995 Acct:[id number] (units unknown) (unknown) (unknown) (no date) (unknown) (unknown) Date Patient Seen: 08/12/22 (units unknown) (unknown) (unknown) (no date) (unknown) (unknown) Date of Service: 08/12/22 (units unknown) (unknown) (unknown) (no date) (unknown) (unknown) Diabetes mellitus, type I (units unknown) (unknown) (unknown) (no date) (unknown) (unknown) Eos # (Auto) 0 (units unknown) (unknown) (unknown) (no date) (unknown) (unknown) Eos # (Auto) (units unknown) (unknown) (unknown) (no date) (unknown) (unknown) Eos % (Auto) 0.0 L (units unknown) (unknown) (unknown) (no date) (unknown) (unknown) Eos % (Auto) (units unknown) (unknown) (unknown) (no date) (unknown) (unknown) Estimated GFR > 60 (units unknown) (unknown) (unknown) (no date) (unknown) (unknown) Estimated GFR (units unknown) (unknown) (unknown) (no date) (unknown) (unknown) Ethyl Alcohol < 10 (units unknown) (unknown) (unknown) (no date) (unknown) (unknown) Ethyl Alcohol (units unknown) (unknown) (unknown) (no date) (unknown) (unknown) Exam Narrative: (units unknown) (unknown) (unknown) (no date) (unknown) (unknown) Exam (units unknown) (unknown) (unknown) (no date) (unknown) (unknown) Family History (units unknown) (unknown) (unknown) (no date) (unknown) (unknown) Father Healthy adult (units unknown) (unknown) (unknown) (no date) (unknown) (unknown) Gastroparesis (units unknown) (unknown) (unknown) (no date) (unknown) (unknown) General: Patient is a well-developed, well-nourished in mild distress shaking (units unknown) (unknown) (unknown) (no date) (unknown) (unknown) Globulin 3.1 (units unknown) (unknown) (unknown) (no date) (unknown) (unknown) Globulin (units unknown) (unknown) (unknown) (no date) (unknown) (unknown) Glucose 92 (units unknown) (unknown) (unknown) (no date) (unknown) (unknown) Glucose (units unknown) (unknown) (unknown) (no date) (unknown) (unknown) HEENT: Normocephalic , atraumatic, extraocular muscles intact, oral pharynx is (units unknown) (unknown) (unknown) (no date) (unknown) (unknown) Hct 34.9 L (units unknown) (unknown) (unknown) (no date) (unknown) (unknown) Hct (units unknown) (unknown) (unknown) (no date) (unknown) (unknown) Hgb 11.4 L (units unknown) (unknown) (unknown) (no date) (unknown) (unknown) Hgb (units unknown) (unknown) (unknown) (no date) (unknown) (unknown) History + Physical Report (units unknown) (unknown) (unknown) (no date) (unknown) (unknown) History of Present Illness (units unknown) (unknown) (unknown) (no date) (unknown) (unknown) History (units unknown) (unknown) (unknown) (no date) (unknown) (unknown) Home Medications and Allergies (units unknown) (unknown) (unknown) (no date) (unknown) (unknown) Home Medications (units unknown) (unknown) (unknown) (no date) (unknown) (unknown) Insulin dependent diabetes mellitus (units unknown) (unknown) (unknown) (no date) (unknown) (unknown) [address] [id number] (units unknown) (unknown) (unknown) (no date) (unknown) (unknown) Kaur Morris is 27-year-old female daily smoker (vaping), hx of marijuana daily (units unknown) (unknown) (unknown) (no date) (unknown) (unknown) Ketones 5.09 H (units unknown) (unknown) (unknown) (no date) (unknown) (unknown) Ketones (units unknown) (unknown) (unknown) (no date) (unknown) (unknown) Laboratory Results - last 24 hr (units unknown) (unknown) (unknown) (no date) (unknown) (unknown) Labs (units unknown) (unknown) (unknown) (no date) (unknown) (unknown) Labs: (units unknown) (unknown) (unknown) (no date) (unknown) (unknown) Lactate 2.3 H (units unknown) (unknown) (unknown) (no date) (unknown) (unknown) Lactate (units unknown) (unknown) (unknown) (no date) (unknown) (unknown) Lipase 24 (units unknown) (unknown) (unknown) (no date) (unknown) (unknown) Lipase (units unknown) (unknown) (unknown) (no date) (unknown) (unknown) Lungs: Auscultation of all lung hendricks are clear without adventitious sounds, (units unknown) (unknown) (unknown) (no date) (unknown) (unknown) Lymph # (Auto) 3200 (units unknown) (unknown) (unknown) (no date) (unknown) (unknown) Lymph # (Auto) (units unknown) (unknown) (unknown) (no date) (unknown) (unknown) Lymph % (Auto) 17.7 L (units unknown) (unknown) (unknown) (no date) (unknown) (unknown) Lymph % (Auto) (units unknown) (unknown) (unknown) (no date) (unknown) (unknown) MCH 25.5 L (units unknown) (unknown) (unknown) (no date) (unknown) (unknown) MCH (units unknown) (unknown) (unknown) (no date) (unknown) (unknown) MCHC 32.7 (units unknown) (unknown) (unknown) (no date) (unknown) (unknown) MCHC (units unknown) (unknown) (unknown) (no date) (unknown) (unknown) MCV 78.0 L (units unknown) (unknown) (unknown) (no date) (unknown) (unknown) MCV (units unknown) (unknown) (unknown) (no date) (unknown) (unknown) Magnesium 1.8 (units unknown) (unknown) (unknown) (no date) (unknown) (unknown) Magnesium (units unknown) (unknown) (unknown) (no date) (unknown) (unknown) Medical History (units unknown) (unknown) (unknown) (no date) (unknown) (unknown) Medication Instructions Recorded Confirmed Type (units unknown) (unknown) (unknown) (no date) (unknown) (unknown) Meds (units unknown) (unknown) (unknown) (no date) (unknown) (unknown) Migraine headache with aura (units unknown) (unknown) (unknown) (no date) (unknown) (unknown) O'Brien # (Auto) 900 (units unknown) (unknown) (unknown) (no date) (unknown) (unknown) O'Brien # (Auto) (units unknown) (unknown) (unknown) (no date) (unknown) (unknown) O'Brien % (Auto) 4.8 (units unknown) (unknown) (unknown) (no date) (unknown) (unknown) O'Brien % (Auto) (units unknown) (unknown) (unknown) (no date) (unknown) (unknown) Mother Hypertension (units unknown) (unknown) (unknown) (no date) (unknown) (unknown) Musculoskeletal: Muscle strength and tone are equal within normal limits, no (units unknown) (unknown) (unknown) (no date) (unknown) (unknown) Myopia (units unknown) (unknown) (unknown) (no date) (unknown) (unknown) Narrative (units unknown) (unknown) (unknown) (no date) (unknown) (unknown) Narrative: (units unknown) (unknown) (unknown) (no date) (unknown) (unknown) Negative for JVD (units unknown) (unknown) (unknown) (no date) (unknown) (unknown) Neuro: Alert and orientated x3, strength is +5/5 in all extremities, sensation (units unknown) (unknown) (unknown) (no date) (unknown) (unknown) Neut # (Auto) 05183 H (units unknown) (unknown) (unknown) (no date) (unknown) (unknown) Neut # (Auto) (units unknown) (unknown) (unknown) (no date) (unknown) (unknown) Neut % (Auto) 77.4 H (units unknown) (unknown) (unknown) (no date) (unknown) (unknown) Neut % (Auto) (units unknown) (unknown) (unknown) (no date) (unknown) (unknown) Objective (units unknown) (unknown) (unknown) (no date) (unknown) (unknown) On admit patient denies chest pain, shortness in breath, headache, changes in (units unknown) (unknown) (unknown) (no date) (unknown) (unknown) Oxygen Delivery Method Room Air (units unknown) (unknown) (unknown) (no date) (unknown) (unknown) PFSH (units unknown) (unknown) (unknown) (no date) (unknown) (unknown) Pancreatitis (units unknown) (unknown) (unknown) (no date) (unknown) (unknown) Patient: Kaur Horton MR (units unknown) (unknown) (unknown) (no date) (unknown) (unknown) Phosphorus 3.1 (units unknown) (unknown) (unknown) (no date) (unknown) (unknown) Phosphorus (units unknown) (unknown) (unknown) (no date) (unknown) (unknown) Plt Count 317 (units unknown) (unknown) (unknown) (no date) (unknown) (unknown) Plt Count (units unknown) (unknown) (unknown) (no date) (unknown) (unknown) Potassium 3.3 L (units unknown) (unknown) (unknown) (no date) (unknown) (unknown) Potassium (units unknown) (unknown) (unknown) (no date) (unknown) (unknown) Procalcitonin 0.19 (units unknown) (unknown) (unknown) (no date) (unknown) (unknown) Procalcitonin (units unknown) (unknown) (unknown) (no date) (unknown) (unknown) Provider: Gracia SmithP-BC (units unknown) (unknown) (unknown) (no date) (unknown) (unknown) Psych: Patient has a well-kept appearance, appropriate affect, mental status (units unknown) (unknown) (unknown) (no date) (unknown) (unknown) Pulse Oximetry 99 98 (units unknown) (unknown) (unknown) (no date) (unknown) (unknown) Pulse Rate 123 H 85 (units unknown) (unknown) (unknown) (no date) (unknown) (unknown) RBC 4.47 (units unknown) (unknown) (unknown) (no date) (unknown) (unknown) RBC (units unknown) (unknown) (unknown) (no date) (unknown) (unknown) RDW 15.9 H (units unknown) (unknown) (unknown) (no date) (unknown) (unknown) RDW (units unknown) (unknown) (unknown) (no date) (unknown) (unknown) Respiratory Rate 24 16 (units unknown) (unknown) (unknown) (no date) (unknown) (unknown) Review of Systems (units unknown) (unknown) (unknown) (no date) (unknown) (unknown) SARS-CoV-2 (PCR) Negative (units unknown) (unknown) (unknown) (no date) (unknown) (unknown) SARS-CoV-2 (PCR) (units unknown) (unknown) (unknown) (no date) (unknown) (unknown) Serum , Sushil l Negative (units unknown) (unknown) (unknown) (no date) (unknown) (unknown) Serum , Qual (units unknown) (unknown) (unknown) (no date) (unknown) (unknown) Signed By: (units unknown) (unknown) (unknown) (no date) (unknown) (unknown) Skin: Warm dry and intact without rashes, ulcerations or petechiae. (units unknown) (unknown) (unknown) (no date) (unknown) (unknown) Smoking Status: Current every day smoker (units unknown) (unknown) (unknown) (no date) (unknown) (unknown) Social History (units unknown) (unknown) (unknown) (no date) (unknown) (unknown) Sodium 138 (units unknown) (unknown) (unknown) (no date) (unknown) (unknown) Sodium (units unknown) (unknown) (unknown) (no date) (unknown) (unknown) Status post appendectomy (units unknown) (unknown) (unknown) (no date) (unknown) (unknown) Surgical History (units unknown) (unknown) (unknown) (no date) (unknown) (unknown) Temperature 98.3 F (units unknown) (unknown) (unknown) (no date) (unknown) (unknown) Time Patient Seen: 01:17 (units unknown) (unknown) (unknown) (no date) (unknown) (unknown) Total Bilirubin 1.0 (units unknown) (unknown) (unknown) (no date) (unknown) (unknown) Total Bilirubin (units unknown) (unknown) (unknown) (no date) (unknown) (unknown) Total Protein 7.8 (units unknown) (unknown) (unknown) (no date) (unknown) (unknown) Total Protein (units unknown) (unknown) (unknown) (no date) (unknown) (unknown) U-100 Insulin aspart) (units unknown) (unknown) (unknown) (no date) (unknown) (unknown) Vital Signs (units unknown) (unknown) (unknown) (no date) (unknown) (unknown) WBC 18.1 H (units unknown) (unknown) (unknown) (no date) (unknown) (unknown) WBC (units unknown) (unknown) (unknown) (no date) (unknown) (unknown) [Embedded Image Not Available] (units unknown) (unknown) (unknown) (no date) (unknown) (unknown) alcohol intake: never (units unknown) (unknown) (unknown) (no date) (unknown) (unknown) antibiotics was unable to keep them down and failed oral challenge in ED. (units unknown) (unknown) (unknown) (no date) (unknown) (unknown) antibiotics/antiemet i cs was unable to fill them as the pharmacies were closed (units unknown) (unknown) (unknown) (no date) (unknown) (unknown) attitude thought context and judgment are appropriate for age. (units unknown) (unknown) (unknown) (no date) (unknown) (unknown) clear and mucous membranes are dry. Neck is supple and symmetric, trachea is (units unknown) (unknown) (unknown) (no date) (unknown) (unknown) constipation, incontinence, melena, rashes, recent changes to medication, (units unknown) (unknown) (unknown) (no date) (unknown) (unknown) criteria, Anion Gap 20-monitor for septic shock/DKA (units unknown) (unknown) (unknown) (no date) (unknown) (unknown) cultures obtained tonight-pending. Patient admitted for lactic acidosis sepsis (units unknown) (unknown) (unknown) (no date) (unknown) (unknown) cultures (units unknown) (unknown) (unknown) (no date) (unknown) (unknown) deformity, crepitus, effusions, cyanosis, clubbing or edema present. Full range (units unknown) (unknown) (unknown) (no date) (unknown) (unknown) documented. (units unknown) (unknown) (unknown) (no date) (unknown) (unknown) due to UTI/pyelonephritis, after failing outpatient management. (units unknown) (unknown) (unknown) (no date) (unknown) (unknown) exposure to illness, abdominal pain, nausea, vomiting, urinary (units unknown) (unknown) (unknown) (no date) (unknown) (unknown) for organomegaly, or masses. Bowel sounds are present in all 4 quadrants (units unknown) (unknown) (unknown) (no date) (unknown) (unknown) gastroparesis, chronic, present on admission (units unknown) (unknown) (unknown) (no date) (unknown) (unknown) household members: spouse (units unknown) (unknown) (unknown) (no date) (unknown) (unknown) illness, injury, or trauma. (units unknown) (unknown) (unknown) (no date) (unknown) (unknown) incontinence/retenti o n, dysuria, frequency, urgency, hematuria, bowel changes, (units unknown) (unknown) (unknown) (no date) (unknown) (unknown) insulin aspart U-100 100 unit/mL 56 SUBCUT DAILY 08/12/22 History (units unknown) (unknown) (unknown) (no date) (unknown) (unknown) insulin syringes (disposable) 1 mL #500 ea 08/04/20 02/07/22 Rx (units unknown) (unknown) (unknown) (no date) (unknown) (unknown) intractable nausea vomiting, acute, present on admission (units unknown) (unknown) (unknown) (no date) (unknown) (unknown) ketorolac [From Toradol] Allergy Verified 08/10/22 14:43 (units unknown) (unknown) (unknown) (no date) (unknown) (unknown) meets SIRS severe sepsis criteria, H+H 11.4/34.9, MCV 78, MCH 25.5. Hypokalemia (units unknown) (unknown) (unknown) (no date) (unknown) (unknown) metoclopramide HCl 5 mg/5 mL oral 5 mg PO Q8H PRN Nausea 08/12/22 08/12/22 (units unknown) (unknown) (unknown) (no date) (unknown) (unknown) mg-trimethoprim 160 mg tablet (units unknown) (unknown) (unknown) (no date) (unknown) (unknown) midline, no adenopathy, no thyroid enlargement, nontender, no masses palpated. (units unknown) (unknown) (unknown) (no date) (unknown) (unknown) no carotid bruit, no cardiac pulsations present. (units unknown) (unknown) (unknown) (no date) (unknown) (unknown) of motion intact radial and pedal pulses are normal. (units unknown) (unknown) (unknown) (no date) (unknown) (unknown) patient in ED had a BP of 123/77 but was tachycardic HR 111, tachypneic RR 21. (units unknown) (unknown) (unknown) (no date) (unknown) (unknown) potassium 3.3, bicar b 19, glucose 92, anion gap 20, not in DKA Patient's urine (units unknown) (unknown) (unknown) (no date) (unknown) (unknown) promethazine 12.5 mg tablet 25 mg PO BID PRN nausea and 08/12/22 08/12/22 (units unknown) (unknown) (unknown) (no date) (unknown) (unknown) promethazine 25 mg rectal 25 mg PA Q4-6H PRN Nausea And 01/27/22 08/12/22 (units unknown) (unknown) (unknown) (no date) (unknown) (unknown) return to the ED thi s morning was treated once again discharged home returned (units unknown) (unknown) (unknown) (no date) (unknown) (unknown) saturation 99% on room air WBC 18.1, neutrophils 14,000, lactate 2.3 patient (units unknown) (unknown) (unknown) (no date) (unknown) (unknown) solution (units unknown) (unknown) (unknown) (no date) (unknown) (unknown) subcutaneous solutio n (Novolog (units unknown) (unknown) (unknown) (no date) (unknown) (unknown) sulfamethoxazole 800 1 tab PO Q12H 10 days #20 tabs 08/11/22 08/12/22 Rx (units unknown) (unknown) (unknown) (no date) (unknown) (unknown) suppositories, IV Zofran (units unknown) (unknown) (unknown) (no date) (unknown) (unknown) suppository (Promethegan) Vomiting (units unknown) (unknown) (unknown) (no date) (unknown) (unknown) tachypneic (units unknown) (unknown) (unknown) (no date) (unknown) (unknown) that the pt can overcome, in no respiratory distress at this time. (units unknown) (unknown) (unknown) (no date) (unknown) (unknown) the ED returning for the 3rd time this evening with intractable nausea and (units unknown) (unknown) (unknown) (no date) (unknown) (unknown) the ED yesterday for nausea vomiting with UTI, was given prescription for (units unknown) (unknown) (unknown) (no date) (unknown) (unknown) this evening with intractable nausea and vomiting after picking up her (units unknown) (unknown) (unknown) (no date) (unknown) (unknown) to touch intact, no gross deficits noted of cranial nerves. (units unknown) (unknown) (unknown) (no date) (unknown) (unknown) type 1 diabetes, wit h peripheral neuropathy and gastroparesis who presented to (units unknown) (unknown) (unknown) (no date) (unknown) (unknown) use, cannabis hyperemesis syndrome, cyclic vomiting syndrome, GERD, migraines, (units unknown) (unknown) (unknown) (no date) (unknown) (unknown) vision, difficulty swallowing, speech impairment, numbness, tingling, difficulty (units unknown) (unknown) (unknown) (no date) (unknown) (unknown) vomiting from UTI. Patient admitted for lactic acidosis sepsis without shock, (units unknown) (unknown) (unknown) (no date) (unknown) (unknown) vomiting (units unknown) (unknown) (unknown) (no date) (unknown) (unknown) was positive for UTI and urine cultures were collected yesterday from ED, blood (units unknown) (unknown) (unknown) (no date) (unknown) (unknown) wheezes, rhonchi, or rales. (units unknown) (unknown) (unknown) (no date) (unknown) (unknown) with ambulation, recent falls, head injury, LOC, fever, chills, cough, recent (units unknown) (unknown) (unknown) (no date) (unknown) (unknown) without guarding or rebound, positive CVA tenderness. (units unknown) (unknown) (unknown) (no date) (unknown) (unknown) without shock, due t o UTI/pyelonephritis. (units unknown) (unknown) Result panel 1616 (unknown) (no date) (unknown) (unknown) (no value) (units unknown) (unknown) (unknown) (no date) (unknown) (unknown) #: [id number] (units unknown) (unknown) (unknown) (no date) (unknown) (unknown) (Bactrim DS) (units unknown) (unknown) (unknown) (no date) (unknown) (unknown) (past 8 hours): (units unknown) (unknown) (unknown) (no date) (unknown) (unknown) - last A1c 2 6.3 -reviewed endocrinology notes (units unknown) (unknown) (unknown) (no date) (unknown) (unknown) -Admit: 98.3?, BP 143/83, HR 123, R 24, O2 saturation 99% (units unknown) (unknown) (unknown) (no date) (unknown) (unknown) -BNP q.4 hours (units unknown) (unknown) (unknown) (no date) (unknown) (unknown) -BNP q.4 hours, glucose checks q.2 hours-until gap closed<12 (units unknown) (unknown) (unknown) (no date) (unknown) (unknown) -ED: BP of 123/77 bu t was tachycardic HR 111, tachypneic RR 21. (units unknown) (unknown) (unknown) (no date) (unknown) (unknown) -Haldol 0.5 4 times daily-for antiemetic control, in addition to Phenergan (units unknown) (unknown) (unknown) (no date) (unknown) (unknown) -UA positive for UTI , urine culture pending, blood culture pending (units unknown) (unknown) (unknown) (no date) (unknown) (unknown) -V/SQ 1 hour x4 if stable may change to q.4 hours: Notify for HR>120, RR>36, (units unknown) (unknown) (unknown) (no date) (unknown) (unknown) -WBC 18.1, neutrophils 14,000, lactate 2.3 patient meets SIRS severe sepsis (units unknown) (unknown) (unknown) (no date) (unknown) (unknown) -antiemetics, pain control (units unknown) (unknown) (unknown) (no date) (unknown) (unknown) -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 Astudillo (units unknown) (unknown) (unknown) (no date) (unknown) (unknown) -holding Reglan, protonix (units unknown) (unknown) (unknown) (no date) (unknown) (unknown) -initiated for complicated sepsis UTI meropenem and vancomycin- alter based on (units unknown) (unknown) (unknown) (no date) (unknown) (unknown) -on admit initiated sepsis bolus 30 cc/kg per hour (units unknown) (unknown) (unknown) (no date) (unknown) (unknown) -ordered 40 mEq potassium rider (units unknown) (unknown) (unknown) (no date) (unknown) (unknown) -ordered renal ultrasound to check for hydronephrosis (units unknown) (unknown) (unknown) (no date) (unknown) (unknown) -ordered salicylate, amylase, TSH, troponin, urine osmolality (units unknown) (unknown) (unknown) (no date) (unknown) (unknown) -patient given Rocephin in ED (units unknown) (unknown) (unknown) (no date) (unknown) (unknown) -potassium 3.3, -ordered 40 mEq potassium rider (units unknown) (unknown) (unknown) (no date) (unknown) (unknown) -potassium 3.3, bicarb 19, glucose 92, anion gap 20, not in DKA (units unknown) (unknown) (unknown) (no date) (unknown) (unknown) -potassium goal: 4-5 (units unknown) (unknown) (unknown) (no date) (unknown) (unknown) -strict I+O, notify for UOP< 50 cc/HR (units unknown) (unknown) (unknown) (no date) (unknown) (unknown) -to be followed by N S at 100 cc/HR (units unknown) (unknown) (unknown) (no date) (unknown) (unknown) 00:06 00:06 00:06 (units unknown) (unknown) (unknown) (no date) (unknown) (unknown) 00:06 00:30 (units unknown) (unknown) (unknown) (no date) (unknown) (unknown) 01:00 (units unknown) (unknown) (unknown) (no date) (unknown) (unknown) 08/11/22 (units unknown) (unknown) (unknown) (no date) (unknown) (unknown) 08/12/22 00:06 (units unknown) (unknown) (unknown) (no date) (unknown) (unknown) 08/12/22 08/12/22 08/12/22 (units unknown) (unknown) (unknown) (no date) (unknown) (unknown) 08/12/22 08/12/22 (units unknown) (unknown) (unknown) (no date) (unknown) (unknown) 1. Lactic acidosis sepsis without septic shock due to UTI/pyelonephritis, with (units unknown) (unknown) (unknown) (no date) (unknown) (unknown) 2. 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 Hypokalemia, acute, secondary to volume loss N/V, present on admission (units unknown) (unknown) (unknown) (no date) (unknown) (unknown) ALT 20 (units unknown) (unknown) (unknown) (no date) (unknown) (unknown) ALT (units unknown) (unknown) (unknown) (no date) (unknown) (unknown) AST 31 (units unknown) (unknown) (unknown) (no date) (unknown) (unknown) AST (units unknown) (unknown) (unknown) (no date) (unknown) (unknown) Abdomen: Soft diffus e generalized tenderness radiation around to back, negative (units unknown) (unknown) (unknown) (no date) (unknown) (unknown) Age/Sex: 27 / F (units unknown) (unknown) (unknown) (no date) (unknown) (unknown) Albumin 4.7 (units unknown) (unknown) (unknown) (no date) (unknown) (unknown) Albumin (units unknown) (unknown) (unknown) (no date) (unknown) (unknown) Albumin/Globulin Ratio 1.5 (units unknown) (unknown) (unknown) (no date) (unknown) (unknown) Albumin/Globulin Ratio (units unknown) (unknown) (unknown) (no date) (unknown) (unknown) Alkaline Phosphatase 115 (units unknown) (unknown) (unknown) (no date) (unknown) (unknown) Alkaline Phosphatase (units unknown) (unknown) (unknown) (no date) (unknown) (unknown) All 12 point systems reviewed with the patient and are negative except otherwise (units unknown) (unknown) (unknown) (no date) (unknown) (unknown) Allergies (units unknown) (unknown) (unknown) (no date) (unknown) (unknown) Allergy/AdvReac Type Severity Reaction Status Date / Time (units unknown) (unknown) (unknown) (no date) (unknown) (unknown) Anemia (units unknown) (unknown) (unknown) (no date) (unknown) (unknown) Assessment + Plan narrative: (units unknown) (unknown) (unknown) (no date) (unknown) (unknown) Assessment + Plan (units unknown) (unknown) (unknown) (no date) (unknown) (unknown) At the time of admit patient's vitals temp 98.3?, BP 143/83, HR 123, R 24, O2 (units unknown) (unknown) (unknown) (no date) (unknown) (unknown) BUN 12 (units unknown) (unknown) (unknown) (no date) (unknown) (unknown) BUN (units unknown) (unknown) (unknown) (no date) (unknown) (unknown) BUN/Creatinine Ratio 21.4 (units unknown) (unknown) (unknown) (no date) (unknown) (unknown) BUN/Creatinine Ratio (units unknown) (unknown) (unknown) (no date) (unknown) (unknown) Baso # (Auto) 0 (units unknown) (unknown) (unknown) (no date) (unknown) (unknown) Baso # (Auto) (units unknown) (unknown) (unknown) (no date) (unknown) (unknown) Baso % (Auto) 0.1 (units unknown) (unknown) (unknown) (no date) (unknown) (unknown) Baso % (Auto) (units unknown) (unknown) (unknown) (no date) (unknown) (unknown) Blood Pressure 143/8 3 H (units unknown) (unknown) (unknown) (no date) (unknown) (unknown) Calcium 8.7 (units unknown) (unknown) (unknown) (no date) (unknown) (unknown) Calcium (units unknown) (unknown) (unknown) (no date) (unknown) (unknown) Carbon Dioxide 19 L (units unknown) (unknown) (unknown) (no date) (unknown) (unknown) Carbon Dioxide (units unknown) (unknown) (unknown) (no date) (unknown) (unknown) Cardio: Tachycardic regular rate and rhythm without murmur, rubs, or gallops, (units unknown) (unknown) (unknown) (no date) (unknown) (unknown) Chest: Breathing without nasal flaring, retractions, or labored, but is (units unknown) (unknown) (unknown) (no date) (unknown) (unknown) Chief complaint: vomiting, back pain was seen earlier today (units unknown) (unknown) (unknown) (no date) (unknown) (unknown) Chloride 99 (units unknown) (unknown) (unknown) (no date) (unknown) (unknown) Chloride (units unknown) (unknown) (unknown) (no date) (unknown) (unknown) Creatinine 0.56 (units unknown) (unknown) (unknown) (no date) (unknown) (unknown) Creatinine (units unknown) (unknown) (unknown) (no date) (unknown) (unknown) Cyclic vomiting syndrome (units unknown) (unknown) (unknown) (no date) (unknown) (unknown) DKA (diabetic ketoacidoses) (units unknown) (unknown) (unknown) (no date) (unknown) (unknown) : 1995 Acct:[id number] (units unknown) (unknown) (unknown) (no date) (unknown) (unknown) Date Patient Seen: 08/12/22 (units unknown) (unknown) (unknown) (no date) (unknown) (unknown) Date of Service: 08/12/22 (units unknown) (unknown) (unknown) (no date) (unknown) (unknown) Diabetes mellitus, type I (units unknown) (unknown) (unknown) (no date) (unknown) (unknown) Eos # (Auto) 0 (units unknown) (unknown) (unknown) (no date) (unknown) (unknown) Eos # (Auto) (units unknown) (unknown) (unknown) (no date) (unknown) (unknown) Eos % (Auto) 0.0 L (units unknown) (unknown) (unknown) (no date) (unknown) (unknown) Eos % (Auto) (units unknown) (unknown) (unknown) (no date) (unknown) (unknown) Estimated GFR > 60 (units unknown) (unknown) (unknown) (no date) (unknown) (unknown) Estimated GFR (units unknown) (unknown) (unknown) (no date) (unknown) (unknown) Ethyl Alcohol < 10 (units unknown) (unknown) (unknown) (no date) (unknown) (unknown) Ethyl Alcohol (units unknown) (unknown) (unknown) (no date) (unknown) (unknown) Exam Narrative: (units unknown) (unknown) (unknown) (no date) (unknown) (unknown) Exam (units unknown) (unknown) (unknown) (no date) (unknown) (unknown) Family History (units unknown) (unknown) (unknown) (no date) (unknown) (unknown) Father Healthy adult (units unknown) (unknown) (unknown) (no date) (unknown) (unknown) Gastroparesis (units unknown) (unknown) (unknown) (no date) (unknown) (unknown) General: Patient is a well-developed, well-nourished in mild distress shaking (units unknown) (unknown) (unknown) (no date) (unknown) (unknown) Globulin 3.1 (units unknown) (unknown) (unknown) (no date) (unknown) (unknown) Globulin (units unknown) (unknown) (unknown) (no date) (unknown) (unknown) Glucose 92 (units unknown) (unknown) (unknown) (no date) (unknown) (unknown) Glucose (units unknown) (unknown) (unknown) (no date) (unknown) (unknown) HEENT: Normocephalic , atraumatic, extraocular muscles intact, oral pharynx is (units unknown) (unknown) (unknown) (no date) (unknown) (unknown) Hct 34.9 L (units unknown) (unknown) (unknown) (no date) (unknown) (unknown) Hct (units unknown) (unknown) (unknown) (no date) (unknown) (unknown) Hgb 11.4 L (units unknown) (unknown) (unknown) (no date) (unknown) (unknown) Hgb (units unknown) (unknown) (unknown) (no date) (unknown) (unknown) History + Physical Report (units unknown) (unknown) (unknown) (no date) (unknown) (unknown) History of Present Illness (units unknown) (unknown) (unknown) (no date) (unknown) (unknown) History (units unknown) (unknown) (unknown) (no date) (unknown) (unknown) Home Medications and Allergies (units unknown) (unknown) (unknown) (no date) (unknown) (unknown) Home Medications (units unknown) (unknown) (unknown) (no date) (unknown) (unknown) Insulin dependent diabetes mellitus (units unknown) (unknown) (unknown) (no date) (unknown) (unknown) [address] [address] (units unknown) (unknown) (unknown) (no date) (unknown) (unknown) Kaur Morris is 27-year-old female daily smoker (vaping), hx of marijuana daily (units unknown) (unknown) (unknown) (no date) (unknown) (unknown) Ketones 5.09 H (units unknown) (unknown) (unknown) (no date) (unknown) (unknown) Ketones (units unknown) (unknown) (unknown) (no date) (unknown) (unknown) Laboratory Results - last 24 hr (units unknown) (unknown) (unknown) (no date) (unknown) (unknown) Labs (units unknown) (unknown) (unknown) (no date) (unknown) (unknown) Labs: (units unknown) (unknown) (unknown) (no date) (unknown) (unknown) Lactate 2.3 H (units unknown) (unknown) (unknown) (no date) (unknown) (unknown) Lactate (units unknown) (unknown) (unknown) (no date) (unknown) (unknown) Lipase 24 (units unknown) (unknown) (unknown) (no date) (unknown) (unknown) Lipase (units unknown) (unknown) (unknown) (no date) (unknown) (unknown) Lungs: Auscultation of all lung hendricks are clear without adventitious sounds, (units unknown) (unknown) (unknown) (no date) (unknown) (unknown) Lymph # (Auto) 3200 (units unknown) (unknown) (unknown) (no date) (unknown) (unknown) Lymph # (Auto) (units unknown) (unknown) (unknown) (no date) (unknown) (unknown) Lymph % (Auto) 17.7 L (units unknown) (unknown) (unknown) (no date) (unknown) (unknown) Lymph % (Auto) (units unknown) (unknown) (unknown) (no date) (unknown) (unknown) MAP<70, BP <90/60, B P >180/105, Temp>102 (units unknown) (unknown) (unknown) (no date) (unknown) (unknown) MCH 25.5 L (units unknown) (unknown) (unknown) (no date) (unknown) (unknown) MCH (units unknown) (unknown) (unknown) (no date) (unknown) (unknown) MCHC 32.7 (units unknown) (unknown) (unknown) (no date) (unknown) (unknown) MCHC (units unknown) (unknown) (unknown) (no date) (unknown) (unknown) MCV 78.0 L (units unknown) (unknown) (unknown) (no date) (unknown) (unknown) MCV (units unknown) (unknown) (unknown) (no date) (unknown) (unknown) Magnesium 1.8 (units unknown) (unknown) (unknown) (no date) (unknown) (unknown) Magnesium (units unknown) (unknown) (unknown) (no date) (unknown) (unknown) Medical History (units unknown) (unknown) (unknown) (no date) (unknown) (unknown) Medication Instructions Recorded Confirmed Type (units unknown) (unknown) (unknown) (no date) (unknown) (unknown) Meds (units unknown) (unknown) (unknown) (no date) (unknown) (unknown) Migraine headache with aura (units unknown) (unknown) (unknown) (no date) (unknown) (unknown) O'Brien # (Auto) 900 (units unknown) (unknown) (unknown) (no date) (unknown) (unknown) O'Brien # (Auto) (units unknown) (unknown) (unknown) (no date) (unknown) (unknown) O'Brien % (Auto) 4.8 (units unknown) (unknown) (unknown) (no date) (unknown) (unknown) O'Brien % (Auto) (units unknown) (unknown) (unknown) (no date) (unknown) (unknown) Mother Hypertension (units unknown) (unknown) (unknown) (no date) (unknown) (unknown) Musculoskeletal: Muscle strength and tone are equal within normal limits, no (units unknown) (unknown) (unknown) (no date) (unknown) (unknown) Myopia (units unknown) (unknown) (unknown) (no date) (unknown) (unknown) Narrative (units unknown) (unknown) (unknown) (no date) (unknown) (unknown) Narrative: (units unknown) (unknown) (unknown) (no date) (unknown) (unknown) Negative for JVD (units unknown) (unknown) (unknown) (no date) (unknown) (unknown) Neuro: Alert and orientated x3, strength is +5/5 in all extremities, sensation (units unknown) (unknown) (unknown) (no date) (unknown) (unknown) Neut # (Auto) 05399 H (units unknown) (unknown) (unknown) (no date) (unknown) (unknown) Neut # (Auto) (units unknown) (unknown) (unknown) (no date) (unknown) (unknown) Neut % (Auto) 77.4 H (units unknown) (unknown) (unknown) (no date) (unknown) (unknown) Neut % (Auto) (units unknown) (unknown) (unknown) (no date) (unknown) (unknown) Objective (units unknown) (unknown) (unknown) (no date) (unknown) (unknown) On admit patient denies chest pain, shortness in breath, headache, changes in (units unknown) (unknown) (unknown) (no date) (unknown) (unknown) Oxygen Delivery Method Room Air (units unknown) (unknown) (unknown) (no date) (unknown) (unknown) PFSH (units unknown) (unknown) (unknown) (no date) (unknown) (unknown) Pancreatitis (units unknown) (unknown) (unknown) (no date) (unknown) (unknown) Patient: Kaur Horton MR (units unknown) (unknown) (unknown) (no date) (unknown) (unknown) Phosphorus 3.1 (units unknown) (unknown) (unknown) (no date) (unknown) (unknown) Phosphorus (units unknown) (unknown) (unknown) (no date) (unknown) (unknown) Plt Count 317 (units unknown) (unknown) (unknown) (no date) (unknown) (unknown) Plt Count (units unknown) (unknown) (unknown) (no date) (unknown) (unknown) Potassium 3.3 L (units unknown) (unknown) (unknown) (no date) (unknown) (unknown) Potassium (units unknown) (unknown) (unknown) (no date) (unknown) (unknown) Procalcitonin 0.19 (units unknown) (unknown) (unknown) (no date) (unknown) (unknown) Procalcitonin (units unknown) (unknown) (unknown) (no date) (unknown) (unknown) Provider: Gracia Smith (units unknown) (unknown) (unknown) (no date) (unknown) (unknown) Psych: Patient has a well-kept appearance, appropriate affect, mental status (units unknown) (unknown) (unknown) (no date) (unknown) (unknown) Pulse Oximetry 99 98 (units unknown) (unknown) (unknown) (no date) (unknown) (unknown) Pulse Rate 123 H 85 (units unknown) (unknown) (unknown) (no date) (unknown) (unknown) RBC 4.47 (units unknown) (unknown) (unknown) (no date) (unknown) (unknown) RBC (units unknown) (unknown) (unknown) (no date) (unknown) (unknown) RDW 15.9 H (units unknown) (unknown) (unknown) (no date) (unknown) (unknown) RDW (units unknown) (unknown) (unknown) (no date) (unknown) (unknown) Respiratory Rate 24 16 (units unknown) (unknown) (unknown) (no date) (unknown) (unknown) Review of Systems (units unknown) (unknown) (unknown) (no date) (unknown) (unknown) SARS-CoV-2 (PCR) Negative (units unknown) (unknown) (unknown) (no date) (unknown) (unknown) SARS-CoV-2 (PCR) (units unknown) (unknown) (unknown) (no date) (unknown) (unknown) Serum , Sushil l Negative (units unknown) (unknown) (unknown) (no date) (unknown) (unknown) Serum , Qual (units unknown) (unknown) (unknown) (no date) (unknown) (unknown) Signed By: (units unknown) (unknown) (unknown) (no date) (unknown) (unknown) Skin: Warm dry and intact without rashes, ulcerations or petechiae. (units unknown) (unknown) (unknown) (no date) (unknown) (unknown) Smoking Status: Current every day smoker (units unknown) (unknown) (unknown) (no date) (unknown) (unknown) Social History (units unknown) (unknown) (unknown) (no date) (unknown) (unknown) Sodium 138 (units unknown) (unknown) (unknown) (no date) (unknown) (unknown) Sodium (units unknown) (unknown) (unknown) (no date) (unknown) (unknown) Status post appendectomy (units unknown) (unknown) (unknown) (no date) (unknown) (unknown) Surgical History (units unknown) (unknown) (unknown) (no date) (unknown) (unknown) Temperature 98.3 F (units unknown) (unknown) (unknown) (no date) (unknown) (unknown) Time Patient Seen: 01:17 (units unknown) (unknown) (unknown) (no date) (unknown) (unknown) Total Bilirubin 1.0 (units unknown) (unknown) (unknown) (no date) (unknown) (unknown) Total Bilirubin (units unknown) (unknown) (unknown) (no date) (unknown) (unknown) Total Protein 7.8 (units unknown) (unknown) (unknown) (no date) (unknown) (unknown) Total Protein (units unknown) (unknown) (unknown) (no date) (unknown) (unknown) U-100 Insulin aspart) (units unknown) (unknown) (unknown) (no date) (unknown) (unknown) Vital Signs (units unknown) (unknown) (unknown) (no date) (unknown) (unknown) WBC 18.1 H (units unknown) (unknown) (unknown) (no date) (unknown) (unknown) WBC (units unknown) (unknown) (unknown) (no date) (unknown) (unknown) [Embedded Image Not Available] (units unknown) (unknown) (unknown) (no date) (unknown) (unknown) alcohol intake: never (units unknown) (unknown) (unknown) (no date) (unknown) (unknown) antibiotics was unable to keep them down and failed oral challenge in ED. (units unknown) (unknown) (unknown) (no date) (unknown) (unknown) antibiotics/antiemet i cs was unable to fill them as the pharmacies were closed (units unknown) (unknown) (unknown) (no date) (unknown) (unknown) attitude thought context and judgment are appropriate for age. (units unknown) (unknown) (unknown) (no date) (unknown) (unknown) clear and mucous membranes are dry. Neck is supple and symmetric, trachea is (units unknown) (unknown) (unknown) (no date) (unknown) (unknown) constipation, incontinence, melena, rashes, recent changes to medication, (units unknown) (unknown) (unknown) (no date) (unknown) (unknown) criteria, Anion Gap 20-monitor for septic shock/DKA (units unknown) (unknown) (unknown) (no date) (unknown) (unknown) cultures obtained tonight-pending. Patient admitted for lactic acidosis sepsis (units unknown) (unknown) (unknown) (no date) (unknown) (unknown) cultures (units unknown) (unknown) (unknown) (no date) (unknown) (unknown) deformity, crepitus, effusions, cyanosis, clubbing or edema present. Full range (units unknown) (unknown) (unknown) (no date) (unknown) (unknown) documented. (units unknown) (unknown) (unknown) (no date) (unknown) (unknown) due to UTI/pyelonephritis, after failing outpatient management. (units unknown) (unknown) (unknown) (no date) (unknown) (unknown) exposure to illness, abdominal pain, nausea, vomiting, urinary (units unknown) (unknown) (unknown) (no date) (unknown) (unknown) for organomegaly, or masses. Bowel sounds are present in all 4 quadrants (units unknown) (unknown) (unknown) (no date) (unknown) (unknown) gastroparesis, chronic, present on admission (units unknown) (unknown) (unknown) (no date) (unknown) (unknown) household members: spouse (units unknown) (unknown) (unknown) (no date) (unknown) (unknown) illness, injury, or trauma. (units unknown) (unknown) (unknown) (no date) (unknown) (unknown) incontinence/retenti o n, dysuria, frequency, urgency, hematuria, bowel changes, (units unknown) (unknown) (unknown) (no date) (unknown) (unknown) insulin aspart U-100 100 unit/mL 56 SUBCUT DAILY 08/12/22 History (units unknown) (unknown) (unknown) (no date) (unknown) (unknown) insulin syringes (disposable) 1 mL #500 ea 08/04/20 02/07/22 Rx (units unknown) (unknown) (unknown) (no date) (unknown) (unknown) intractable nausea vomiting, acute, present on admission (units unknown) (unknown) (unknown) (no date) (unknown) (unknown) ketorolac [From Toradol] Allergy Verified 08/10/22 14:43 (units unknown) (unknown) (unknown) (no date) (unknown) (unknown) meets SIRS severe sepsis criteria, H+H 11.4/34.9, MCV 78, MCH 25.5. Hypokalemia (units unknown) (unknown) (unknown) (no date) (unknown) (unknown) metoclopramide HCl 5 mg/5 mL oral 5 mg PO Q8H PRN Nausea 08/12/22 08/12/22 (units unknown) (unknown) (unknown) (no date) (unknown) (unknown) mg-trimethoprim 160 mg tablet (units unknown) (unknown) (unknown) (no date) (unknown) (unknown) midline, no adenopathy, no thyroid enlargement, nontender, no masses palpated. (units unknown) (unknown) (unknown) (no date) (unknown) (unknown) no carotid bruit, no cardiac pulsations present. (units unknown) (unknown) (unknown) (no date) (unknown) (unknown) of motion intact radial and pedal pulses are normal. (units unknown) (unknown) (unknown) (no date) (unknown) (unknown) patient in ED had a BP of 123/77 but was tachycardic HR 111, tachypneic RR 21. (units unknown) (unknown) (unknown) (no date) (unknown) (unknown) potassium 3.3, bicar b 19, glucose 92, anion gap 20, not in DKA Patient's urine (units unknown) (unknown) (unknown) (no date) (unknown) (unknown) promethazine 12.5 mg tablet 25 mg PO BID PRN nausea and 08/12/22 08/12/22 (units unknown) (unknown) (unknown) (no date) (unknown) (unknown) promethazine 25 mg rectal 25 mg PA Q4-6H PRN Nausea And 01/27/22 08/12/22 (units unknown) (unknown) (unknown) (no date) (unknown) (unknown) return to the ED thi s morning was treated once again discharged home returned (units unknown) (unknown) (unknown) (no date) (unknown) (unknown) saturation 99% on room air WBC 18.1, neutrophils 14,000, lactate 2.3 patient (units unknown) (unknown) (unknown) (no date) (unknown) (unknown) solution (units unknown) (unknown) (unknown) (no date) (unknown) (unknown) subcutaneous solutio n (Novolog (units unknown) (unknown) (unknown) (no date) (unknown) (unknown) sulfamethoxazole 800 1 tab PO Q12H 10 days #20 tabs 08/11/22 08/12/22 Rx (units unknown) (unknown) (unknown) (no date) (unknown) (unknown) suppositories, IV Zofran (units unknown) (unknown) (unknown) (no date) (unknown) (unknown) suppository (Promethegan) Vomiting (units unknown) (unknown) (unknown) (no date) (unknown) (unknown) tachypneic (units unknown) (unknown) (unknown) (no date) (unknown) (unknown) that the pt can overcome, in no respiratory distress at this time. (units unknown) (unknown) (unknown) (no date) (unknown) (unknown) the ED returning for the 3rd time this evening with intractable nausea and (units unknown) (unknown) (unknown) (no date) (unknown) (unknown) the ED yesterday for nausea vomiting with UTI, was given prescription for (units unknown) (unknown) (unknown) (no date) (unknown) (unknown) this evening with intractable nausea and vomiting after picking up her (units unknown) (unknown) (unknown) (no date) (unknown) (unknown) to touch intact, no gross deficits noted of cranial nerves. (units unknown) (unknown) (unknown) (no date) (unknown) (unknown) type 1 diabetes, wit h peripheral neuropathy and gastroparesis who presented to (units unknown) (unknown) (unknown) (no date) (unknown) (unknown) use, cannabis hyperemesis syndrome, cyclic vomiting syndrome, GERD, migraines, (units unknown) (unknown) (unknown) (no date) (unknown) (unknown) vision, difficulty swallowing, speech impairment, numbness, tingling, difficulty (units unknown) (unknown) (unknown) (no date) (unknown) (unknown) vomiting from UTI. Patient admitted for lactic acidosis sepsis without shock, (units unknown) (unknown) (unknown) (no date) (unknown) (unknown) vomiting (units unknown) (unknown) (unknown) (no date) (unknown) (unknown) was positive for UTI and urine cultures were collected yesterday from ED, blood (units unknown) (unknown) (unknown) (no date) (unknown) (unknown) wheezes, rhonchi, or rales. (units unknown) (unknown) (unknown) (no date) (unknown) (unknown) with ambulation, recent falls, head injury, LOC, fever, chills, cough, recent (units unknown) (unknown) (unknown) (no date) (unknown) (unknown) without guarding or rebound, positive CVA tenderness. (units unknown) (unknown) (unknown) (no date) (unknown) (unknown) without shock, due t o UTI/pyelonephritis. (units unknown) (unknown) Result panel 1617 (unknown) (no date) (unknown) (unknown) (no value) (units unknown) (unknown) (unknown) (no date) (unknown) (unknown) #: [id number] (units unknown) (unknown) (unknown) (no date) (unknown) (unknown) (Bactrim DS) (units unknown) (unknown) (unknown) (no date) (unknown) (unknown) (past 8 hours): (units unknown) (unknown) (unknown) (no date) (unknown) (unknown) - last A1c 2 6.3 -reviewed endocrinology notes (units unknown) (unknown) (unknown) (no date) (unknown) (unknown) -Admit: 98.3?, BP 143/83, HR 123, R 24, O2 saturation 99% (units unknown) (unknown) (unknown) (no date) (unknown) (unknown) -BMI 22.8 (units unknown) (unknown) (unknown) (no date) (unknown) (unknown) -BNP q.4 hours (units unknown) (unknown) (unknown) (no date) (unknown) (unknown) -BNP q.4 hours, glucose checks q.2 hours-until gap closed<12 (units unknown) (unknown) (unknown) (no date) (unknown) (unknown) -ED: BP of 123/77 bu t was tachycardic HR 111, tachypneic RR 21. (units unknown) (unknown) (unknown) (no date) (unknown) (unknown) -Haldol 0.5 4 times daily-for antiemetic control, in addition to Phenergan (units unknown) (unknown) (unknown) (no date) (unknown) (unknown) -UA positive for UTI , urine culture pending, blood culture pending (units unknown) (unknown) (unknown) (no date) (unknown) (unknown) -V/SQ 1 hour x4 if stable may change to q.4 hours: Notify for HR>120, RR>36, (units unknown) (unknown) (unknown) (no date) (unknown) (unknown) -WBC 18.1, neutrophils 14,000, lactate 2.3 patient meets SIRS severe sepsis (units unknown) (unknown) (unknown) (no date) (unknown) (unknown) -While vomiting: holding Reglan, protonix- changed to IV protonix (units unknown) (unknown) (unknown) (no date) (unknown) (unknown) -antiemetics, pain control (units unknown) (unknown) (unknown) (no date) (unknown) (unknown) -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 Astudillo (units unknown) (unknown) (unknown) (no date) (unknown) (unknown) -continue phenergan supp (units unknown) (unknown) (unknown) (no date) (unknown) (unknown) -dietary consult ordered to evaluate and implement steps to improve caloric (units unknown) (unknown) (unknown) (no date) (unknown) (unknown) -initiated for complicated sepsis UTI meropenem and vancomycin- alter based on (units unknown) (unknown) (unknown) (no date) (unknown) (unknown) -on admit initiated sepsis bolus 30 cc/kg per hour (units unknown) (unknown) (unknown) (no date) (unknown) (unknown) -ordered 40 mEq potassium rider (units unknown) (unknown) (unknown) (no date) (unknown) (unknown) -ordered renal ultrasound to check for hydronephrosis (units unknown) (unknown) (unknown) (no date) (unknown) (unknown) -ordered salicylate, amylase, TSH, troponin, urine osmolality, ETOH (units unknown) (unknown) (unknown) (no date) (unknown) (unknown) -patient given Rocephin in ED (units unknown) (unknown) (unknown) (no date) (unknown) (unknown) -patient's malnutrition places them at high risk for medical and surgical (units unknown) (unknown) (unknown) (no date) (unknown) (unknown) -potassium 3.3, -ordered 40 mEq potassium rider (units unknown) (unknown) (unknown) (no date) (unknown) (unknown) -potassium 3.3, bicarb 19, glucose 92, ketones 5.09 anion gap 20, not in DKA (units unknown) (unknown) (unknown) (no date) (unknown) (unknown) -potassium goal: 4-5 (units unknown) (unknown) (unknown) (no date) (unknown) (unknown) -strict I+O, notify for UOP< 50 cc/HR (units unknown) (unknown) (unknown) (no date) (unknown) (unknown) -to be followed by N S at 100 cc/HR (units unknown) (unknown) (unknown) (no date) (unknown) (unknown) 00:06 00:06 00:06 (units unknown) (unknown) (unknown) (no date) (unknown) (unknown) 00:06 00:30 (units unknown) (unknown) (unknown) (no date) (unknown) (unknown) 01:00 (units unknown) (unknown) (unknown) (no date) (unknown) (unknown) 08/11/22 (units unknown) (unknown) (unknown) (no date) (unknown) (unknown) 08/12/22 00:06 (units unknown) (unknown) (unknown) (no date) (unknown) (unknown) 08/12/22 08/12/22 08/12/22 (units unknown) (unknown) (unknown) (no date) (unknown) (unknown) 08/12/22 08/12/22 (units unknown) (unknown) (unknown) (no date) (unknown) (unknown) 1. Lactic acidosis sepsis without septic shock due to UTI/pyelonephritis, with (units unknown) (unknown) (unknown) (no date) (unknown) (unknown) 2. 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 Hypokalemia, acute, secondary to volume loss N/V, present on admission (units unknown) (unknown) (unknown) (no date) (unknown) (unknown) 4. Malnutrition, mild, acute on chronic, present on admission (units unknown) (unknown) (unknown) (no date) (unknown) (unknown) ALT 20 (units unknown) (unknown) (unknown) (no date) (unknown) (unknown) ALT (units unknown) (unknown) (unknown) (no date) (unknown) (unknown) AST 31 (units unknown) (unknown) (unknown) (no date) (unknown) (unknown) AST (units unknown) (unknown) (unknown) (no date) (unknown) (unknown) Abdomen: Soft diffus e generalized tenderness radiation around to back, negative (units unknown) (unknown) (unknown) (no date) (unknown) (unknown) Age/Sex: 27 / F (units unknown) (unknown) (unknown) (no date) (unknown) (unknown) Albumin 4.7 (units unknown) (unknown) (unknown) (no date) (unknown) (unknown) Albumin (units unknown) (unknown) (unknown) (no date) (unknown) (unknown) Albumin/Globulin Ratio 1.5 (units unknown) (unknown) (unknown) (no date) (unknown) (unknown) Albumin/Globulin Ratio (units unknown) (unknown) (unknown) (no date) (unknown) (unknown) Alkaline Phosphatase 115 (units unknown) (unknown) (unknown) (no date) (unknown) (unknown) Alkaline Phosphatase (units unknown) (unknown) (unknown) (no date) (unknown) (unknown) All 12 point systems reviewed with the patient and are negative except otherwise (units unknown) (unknown) (unknown) (no date) (unknown) (unknown) Allergies (units unknown) (unknown) (unknown) (no date) (unknown) (unknown) Allergy/AdvReac Type Severity Reaction Status Date / Time (units unknown) (unknown) (unknown) (no date) (unknown) (unknown) Anemia (units unknown) (unknown) (unknown) (no date) (unknown) (unknown) Assessment + Plan narrative: (units unknown) (unknown) (unknown) (no date) (unknown) (unknown) Assessment + Plan (units unknown) (unknown) (unknown) (no date) (unknown) (unknown) At the time of admit patient's vitals temp 98.3?, BP 143/83, HR 123, R 24, O2 (units unknown) (unknown) (unknown) (no date) (unknown) (unknown) BUN 12 (units unknown) (unknown) (unknown) (no date) (unknown) (unknown) BUN (units unknown) (unknown) (unknown) (no date) (unknown) (unknown) BUN/Creatinine Ratio 21.4 (units unknown) (unknown) (unknown) (no date) (unknown) (unknown) BUN/Creatinine Ratio (units unknown) (unknown) (unknown) (no date) (unknown) (unknown) Baso # (Auto) 0 (units unknown) (unknown) (unknown) (no date) (unknown) (unknown) Baso # (Auto) (units unknown) (unknown) (unknown) (no date) (unknown) (unknown) Baso % (Auto) 0.1 (units unknown) (unknown) (unknown) (no date) (unknown) (unknown) Baso % (Auto) (units unknown) (unknown) (unknown) (no date) (unknown) (unknown) Blood Pressure 143/8 3 H (units unknown) (unknown) (unknown) (no date) (unknown) (unknown) COVID PCR: (units unknown) (unknown) (unknown) (no date) (unknown) (unknown) COVID vaccination: (units unknown) (unknown) (unknown) (no date) (unknown) (unknown) Calcium 8.7 (units unknown) (unknown) (unknown) (no date) (unknown) (unknown) Calcium (units unknown) (unknown) (unknown) (no date) (unknown) (unknown) Carbon Dioxide 19 L (units unknown) (unknown) (unknown) (no date) (unknown) (unknown) Carbon Dioxide (units unknown) (unknown) (unknown) (no date) (unknown) (unknown) Cardio: Tachycardic regular rate and rhythm without murmur, rubs, or gallops, (units unknown) (unknown) (unknown) (no date) (unknown) (unknown) Chest: Breathing without nasal flaring, retractions, or labored, but is (units unknown) (unknown) (unknown) (no date) (unknown) (unknown) Chief complaint: vomiting, back pain was seen earlier today (units unknown) (unknown) (unknown) (no date) (unknown) (unknown) Chloride 99 (units unknown) (unknown) (unknown) (no date) (unknown) (unknown) Chloride (units unknown) (unknown) (unknown) (no date) (unknown) (unknown) Code status: DNR DNI via patient wishes documented in chart 01/2022 (units unknown) (unknown) (unknown) (no date) (unknown) (unknown) Creatinine 0.56 (units unknown) (unknown) (unknown) (no date) (unknown) (unknown) Creatinine (units unknown) (unknown) (unknown) (no date) (unknown) (unknown) Cyclic vomiting syndrome (units unknown) (unknown) (unknown) (no date) (unknown) (unknown) DKA (diabetic ketoacidoses) (units unknown) (unknown) (unknown) (no date) (unknown) (unknown) : 1995 Acct:[id number] (units unknown) (unknown) (unknown) (no date) (unknown) (unknown) DVT/VTE prophylaxis: (units unknown) (unknown) (unknown) (no date) (unknown) (unknown) Date Patient Seen: 08/12/22 (units unknown) (unknown) (unknown) (no date) (unknown) (unknown) Date of Service: 08/12/22 (units unknown) (unknown) (unknown) (no date) (unknown) (unknown) Diabetes mellitus, type I (units unknown) (unknown) (unknown) (no date) (unknown) (unknown) Disposition: (units unknown) (unknown) (unknown) (no date) (unknown) (unknown) Eos # (Auto) 0 (units unknown) (unknown) (unknown) (no date) (unknown) (unknown) Eos # (Auto) (units unknown) (unknown) (unknown) (no date) (unknown) (unknown) Eos % (Auto) 0.0 L (units unknown) (unknown) (unknown) (no date) (unknown) (unknown) Eos % (Auto) (units unknown) (unknown) (unknown) (no date) (unknown) (unknown) Estimated GFR > 60 (units unknown) (unknown) (unknown) (no date) (unknown) (unknown) Estimated GFR (units unknown) (unknown) (unknown) (no date) (unknown) (unknown) Ethyl Alcohol < 10 (units unknown) (unknown) (unknown) (no date) (unknown) (unknown) Ethyl Alcohol (units unknown) (unknown) (unknown) (no date) (unknown) (unknown) Exam Narrative: (units unknown) (unknown) (unknown) (no date) (unknown) (unknown) Exam (units unknown) (unknown) (unknown) (no date) (unknown) (unknown) Exception-the patien t is not eligible for medication reconciliation; the patient (units unknown) (unknown) (unknown) (no date) (unknown) (unknown) Family History (units unknown) (unknown) (unknown) (no date) (unknown) (unknown) Father Healthy adult (units unknown) (unknown) (unknown) (no date) (unknown) (unknown) Gastroparesis (units unknown) (unknown) (unknown) (no date) (unknown) (unknown) General: Patient is a well-developed, well-nourished in mild distress shaking (units unknown) (unknown) (unknown) (no date) (unknown) (unknown) Globulin 3.1 (units unknown) (unknown) (unknown) (no date) (unknown) (unknown) Globulin (units unknown) (unknown) (unknown) (no date) (unknown) (unknown) Glucose 92 (units unknown) (unknown) (unknown) (no date) (unknown) (unknown) Glucose (units unknown) (unknown) (unknown) (no date) (unknown) (unknown) HEENT: Normocephalic , atraumatic, extraocular muscles intact, oral pharynx is (units unknown) (unknown) (unknown) (no date) (unknown) (unknown) Hct 34.9 L (units unknown) (unknown) (unknown) (no date) (unknown) (unknown) Hct (units unknown) (unknown) (unknown) (no date) (unknown) (unknown) Hgb 11.4 L (units unknown) (unknown) (unknown) (no date) (unknown) (unknown) Hgb (units unknown) (unknown) (unknown) (no date) (unknown) (unknown) History + Physical Report (units unknown) (unknown) (unknown) (no date) (unknown) (unknown) History of Present Illness (units unknown) (unknown) (unknown) (no date) (unknown) (unknown) History (units unknown) (unknown) (unknown) (no date) (unknown) (unknown) Home Medications and Allergies (units unknown) (unknown) (unknown) (no date) (unknown) (unknown) Home Medications (units unknown) (unknown) (unknown) (no date) (unknown) (unknown) I confirmed that the patient's advanced care plan is present, Code status is (units unknown) (unknown) (unknown) (no date) (unknown) (unknown) I have personally reviewed patient's chart notes from PCP, specialists, (units unknown) (unknown) (unknown) (no date) (unknown) (unknown) I have utilized all available immediate resources to obtain, update, or review (units unknown) (unknown) (unknown) (no date) (unknown) (unknown) Insulin dependent diabetes mellitus (units unknown) (unknown) (unknown) (no date) (unknown) (unknown) [address] [address] (units unknown) (unknown) (unknown) (no date) (unknown) (unknown) Kaur Morris is 27-year-old female daily smoker (vaping), hx of marijuana daily (units unknown) (unknown) (unknown) (no date) (unknown) (unknown) Ketones 5.09 H (units unknown) (unknown) (unknown) (no date) (unknown) (unknown) Ketones (units unknown) (unknown) (unknown) (no date) (unknown) (unknown) Laboratory Results - last 24 hr (units unknown) (unknown) (unknown) (no date) (unknown) (unknown) Labs (units unknown) (unknown) (unknown) (no date) (unknown) (unknown) Labs: (units unknown) (unknown) (unknown) (no date) (unknown) (unknown) Lactate 2.3 H (units unknown) (unknown) (unknown) (no date) (unknown) (unknown) Lactate (units unknown) (unknown) (unknown) (no date) (unknown) (unknown) Lipase 24 (units unknown) (unknown) (unknown) (no date) (unknown) (unknown) Lipase (units unknown) (unknown) (unknown) (no date) (unknown) (unknown) Lungs: Auscultation of all lung hendricks are clear without adventitious sounds, (units unknown) (unknown) (unknown) (no date) (unknown) (unknown) Lymph # (Auto) 3200 (units unknown) (unknown) (unknown) (no date) (unknown) (unknown) Lymph # (Auto) (units unknown) (unknown) (unknown) (no date) (unknown) (unknown) Lymph % (Auto) 17.7 L (units unknown) (unknown) (unknown) (no date) (unknown) (unknown) Lymph % (Auto) (units unknown) (unknown) (unknown) (no date) (unknown) (unknown) MAP<70, BP <90/60, B P >180/105, Temp>102 (units unknown) (unknown) (unknown) (no date) (unknown) (unknown) MCH 25.5 L (units unknown) (unknown) (unknown) (no date) (unknown) (unknown) MCH (units unknown) (unknown) (unknown) (no date) (unknown) (unknown) MCHC 32.7 (units unknown) (unknown) (unknown) (no date) (unknown) (unknown) MCHC (units unknown) (unknown) (unknown) (no date) (unknown) (unknown) MCV 78.0 L (units unknown) (unknown) (unknown) (no date) (unknown) (unknown) MCV (units unknown) (unknown) (unknown) (no date) (unknown) (unknown) Magnesium 1.8 (units unknown) (unknown) (unknown) (no date) (unknown) (unknown) Magnesium (units unknown) (unknown) (unknown) (no date) (unknown) (unknown) Medical History (units unknown) (unknown) (unknown) (no date) (unknown) (unknown) Medication Instructions Recorded Confirmed Type (units unknown) (unknown) (unknown) (no date) (unknown) (unknown) Meds (units unknown) (unknown) (unknown) (no date) (unknown) (unknown) Migraine headache with aura (units unknown) (unknown) (unknown) (no date) (unknown) (unknown) O'Brien # (Auto) 900 (units unknown) (unknown) (unknown) (no date) (unknown) (unknown) O'Brien # (Auto) (units unknown) (unknown) (unknown) (no date) (unknown) (unknown) O'Brien % (Auto) 4.8 (units unknown) (unknown) (unknown) (no date) (unknown) (unknown) O'Brien % (Auto) (units unknown) (unknown) (unknown) (no date) (unknown) (unknown) Mother Hypertension (units unknown) (unknown) (unknown) (no date) (unknown) (unknown) Musculoskeletal: Muscle strength and tone are equal within normal limits, no (units unknown) (unknown) (unknown) (no date) (unknown) (unknown) Myopia (units unknown) (unknown) (unknown) (no date) (unknown) (unknown) Narrative (units unknown) (unknown) (unknown) (no date) (unknown) (unknown) Narrative: (units unknown) (unknown) (unknown) (no date) (unknown) (unknown) Negative for JVD (units unknown) (unknown) (unknown) (no date) (unknown) (unknown) Neuro: Alert and orientated x3, strength is +5/5 in all extremities, sensation (units unknown) (unknown) (unknown) (no date) (unknown) (unknown) Neut # (Auto) 81242 H (units unknown) (unknown) (unknown) (no date) (unknown) (unknown) Neut # (Auto) (units unknown) (unknown) (unknown) (no date) (unknown) (unknown) Neut % (Auto) 77.4 H (units unknown) (unknown) (unknown) (no date) (unknown) (unknown) Neut % (Auto) (units unknown) (unknown) (unknown) (no date) (unknown) (unknown) Objective (units unknown) (unknown) (unknown) (no date) (unknown) (unknown) On admit patient denies chest pain, shortness in breath, headache, changes in (units unknown) (unknown) (unknown) (no date) (unknown) (unknown) Oxygen Delivery Method Room Air (units unknown) (unknown) (unknown) (no date) (unknown) (unknown) PFSH (units unknown) (unknown) (unknown) (no date) (unknown) (unknown) Pancreatitis (units unknown) (unknown) (unknown) (no date) (unknown) (unknown) Patient's urine was positive for UTI and urine cultures were collected yesterday (units unknown) (unknown) (unknown) (no date) (unknown) (unknown) Patient: Kaur Horton MR (units unknown) (unknown) (unknown) (no date) (unknown) (unknown) Phosphorus 3.1 (units unknown) (unknown) (unknown) (no date) (unknown) (unknown) Phosphorus (units unknown) (unknown) (unknown) (no date) (unknown) (unknown) Plt Count 317 (units unknown) (unknown) (unknown) (no date) (unknown) (unknown) Plt Count (units unknown) (unknown) (unknown) (no date) (unknown) (unknown) Potassium 3.3 L (units unknown) (unknown) (unknown) (no date) (unknown) (unknown) Potassium (units unknown) (unknown) (unknown) (no date) (unknown) (unknown) Procalcitonin 0.19 (units unknown) (unknown) (unknown) (no date) (unknown) (unknown) Procalcitonin (units unknown) (unknown) (unknown) (no date) (unknown) (unknown) Provider: Gracia Smith (units unknown) (unknown) (unknown) (no date) (unknown) (unknown) Psych: Patient has a well-kept appearance, appropriate affect, mental status (units unknown) (unknown) (unknown) (no date) (unknown) (unknown) Pulse Oximetry 99 98 (units unknown) (unknown) (unknown) (no date) (unknown) (unknown) Pulse Rate 123 H 85 (units unknown) (unknown) (unknown) (no date) (unknown) (unknown) RBC 4.47 (units unknown) (unknown) (unknown) (no date) (unknown) (unknown) RBC (units unknown) (unknown) (unknown) (no date) (unknown) (unknown) RDW 15.9 H (units unknown) (unknown) (unknown) (no date) (unknown) (unknown) RDW (units unknown) (unknown) (unknown) (no date) (unknown) (unknown) Respiratory Rate 24 16 (units unknown) (unknown) (unknown) (no date) (unknown) (unknown) Review of Systems (units unknown) (unknown) (unknown) (no date) (unknown) (unknown) SARS-CoV-2 (PCR) Negative (units unknown) (unknown) (unknown) (no date) (unknown) (unknown) SARS-CoV-2 (PCR) (units unknown) (unknown) (unknown) (no date) (unknown) (unknown) Serum , Sushil l Negative (units unknown) (unknown) (unknown) (no date) (unknown) (unknown) Serum , Qual (units unknown) (unknown) (unknown) (no date) (unknown) (unknown) Signed By: (units unknown) (unknown) (unknown) (no date) (unknown) (unknown) Skin: Warm dry and intact without rashes, ulcerations or petechiae. (units unknown) (unknown) (unknown) (no date) (unknown) (unknown) Smoking Status: Current every day smoker (units unknown) (unknown) (unknown) (no date) (unknown) (unknown) Social History (units unknown) (unknown) (unknown) (no date) (unknown) (unknown) Sodium 138 (units unknown) (unknown) (unknown) (no date) (unknown) (unknown) Sodium (units unknown) (unknown) (unknown) (no date) (unknown) (unknown) Status post appendectomy (units unknown) (unknown) (unknown) (no date) (unknown) (unknown) Surgical History (units unknown) (unknown) (unknown) (no date) (unknown) (unknown) Surrogate decision maker: Spouse Khoa (units unknown) (unknown) (unknown) (no date) (unknown) (unknown) Temperature 98.3 F (units unknown) (unknown) (unknown) (no date) (unknown) (unknown) Time Patient Seen: 01:17 (units unknown) (unknown) (unknown) (no date) (unknown) (unknown) Total Bilirubin 1.0 (units unknown) (unknown) (unknown) (no date) (unknown) (unknown) Total Bilirubin (units unknown) (unknown) (unknown) (no date) (unknown) (unknown) Total Protein 7.8 (units unknown) (unknown) (unknown) (no date) (unknown) (unknown) Total Protein (units unknown) (unknown) (unknown) (no date) (unknown) (unknown) U-100 Insulin aspart) (units unknown) (unknown) (unknown) (no date) (unknown) (unknown) Vital Signs (units unknown) (unknown) (unknown) (no date) (unknown) (unknown) WBC 18.1 H (units unknown) (unknown) (unknown) (no date) (unknown) (unknown) WBC (units unknown) (unknown) (unknown) (no date) (unknown) (unknown) [Embedded Image Not Available] (units unknown) (unknown) (unknown) (no date) (unknown) (unknown) acidosis sepsis without shock, due to UTI/pyelonephritis. (units unknown) (unknown) (unknown) (no date) (unknown) (unknown) alcohol intake: never (units unknown) (unknown) (unknown) (no date) (unknown) (unknown) antibiotics was unable to keep them down and failed oral challenge in ED. (units unknown) (unknown) (unknown) (no date) (unknown) (unknown) antibiotics/antiemet i cs was unable to fill them as the pharmacies were closed (units unknown) (unknown) (unknown) (no date) (unknown) (unknown) attitude thought context and judgment are appropriate for age. (units unknown) (unknown) (unknown) (no date) (unknown) (unknown) clear and mucous membranes are dry. Neck is supple and symmetric, trachea is (units unknown) (unknown) (unknown) (no date) (unknown) (unknown) complications in relation to acute illness/chronic illness. This increases the (units unknown) (unknown) (unknown) (no date) (unknown) (unknown) constipation, incontinence, melena, rashes, recent changes to medication, (units unknown) (unknown) (unknown) (no date) (unknown) (unknown) criteria, Anion Gap 20-monitor for septic shock/DKA (units unknown) (unknown) (unknown) (no date) (unknown) (unknown) cultures (units unknown) (unknown) (unknown) (no date) (unknown) (unknown) deformity, crepitus, effusions, cyanosis, clubbing or edema present. Full range (units unknown) (unknown) (unknown) (no date) (unknown) (unknown) diagnostic imaging, and laboratory results. (units unknown) (unknown) (unknown) (no date) (unknown) (unknown) difficulty in complexity of medical management and increases the chances poor (units unknown) (unknown) (unknown) (no date) (unknown) (unknown) documented and/or surrogate decision maker is listed in the patient's medical r (units unknown) (unknown) (unknown) (no date) (unknown) (unknown) documented. (units unknown) (unknown) (unknown) (no date) (unknown) (unknown) due to UTI/pyelonephritis, after failing outpatient management. (units unknown) (unknown) (unknown) (no date) (unknown) (unknown) ecord. (units unknown) (unknown) (unknown) (no date) (unknown) (unknown) exposure to illness, abdominal pain, nausea, vomiting, urinary (units unknown) (unknown) (unknown) (no date) (unknown) (unknown) for organomegaly, or masses. Bowel sounds are present in all 4 quadrants (units unknown) (unknown) (unknown) (no date) (unknown) (unknown) from ED, blood cultures obtained tonight-pending. Patient admitted for lactic (units unknown) (unknown) (unknown) (no date) (unknown) (unknown) gastroparesis, chronic, present on admission (units unknown) (unknown) (unknown) (no date) (unknown) (unknown) household members: spouse (units unknown) (unknown) (unknown) (no date) (unknown) (unknown) illness, injury, or trauma. (units unknown) (unknown) (unknown) (no date) (unknown) (unknown) immune suppression. (units unknown) (unknown) (unknown) (no date) (unknown) (unknown) incontinence/retenti o n, dysuria, frequency, urgency, hematuria, bowel changes, (units unknown) (unknown) (unknown) (no date) (unknown) (unknown) insulin aspart U-100 100 unit/mL 56 SUBCUT DAILY 08/12/22 History (units unknown) (unknown) (unknown) (no date) (unknown) (unknown) insulin syringes (disposable) 1 mL #500 ea 08/04/20 02/07/22 Rx (units unknown) (unknown) (unknown) (no date) (unknown) (unknown) intake and nutrition. (units unknown) (unknown) (unknown) (no date) (unknown) (unknown) intractable nausea vomiting, acute, present on admission (units unknown) (unknown) (unknown) (no date) (unknown) (unknown) is in an emergent medical situation were delaying treatment would jeopardize (units unknown) (unknown) (unknown) (no date) (unknown) (unknown) ketorolac [From Toradol] Allergy Verified 08/10/22 14:43 (units unknown) (unknown) (unknown) (no date) (unknown) (unknown) meets SIRS severe sepsis criteria, H+H 11.4/34.9, MCV 78, MCH 25.5. Hypokalemia (units unknown) (unknown) (unknown) (no date) (unknown) (unknown) metoclopramide HCl 5 mg/5 mL oral 5 mg PO Q8H PRN Nausea 08/12/22 08/12/22 (units unknown) (unknown) (unknown) (no date) (unknown) (unknown) mg-trimethoprim 160 mg tablet (units unknown) (unknown) (unknown) (no date) (unknown) (unknown) midline, no adenopathy, no thyroid enlargement, nontender, no masses palpated. (units unknown) (unknown) (unknown) (no date) (unknown) (unknown) no carotid bruit, no cardiac pulsations present. (units unknown) (unknown) (unknown) (no date) (unknown) (unknown) of motion intact radial and pedal pulses are normal. (units unknown) (unknown) (unknown) (no date) (unknown) (unknown) outcomes such as mortality and morbidity as well as impaired wound healing, and (units unknown) (unknown) (unknown) (no date) (unknown) (unknown) patient in ED had a BP of 123/77 but was tachycardic HR 111, tachypneic RR 21. (units unknown) (unknown) (unknown) (no date) (unknown) (unknown) potassium 3.3, bicar b 19, glucose 92, ketones 5.09, anion gap 20, not in DKA (units unknown) (unknown) (unknown) (no date) (unknown) (unknown) promethazine 12.5 mg tablet 25 mg PO BID PRN nausea and 08/12/22 08/12/22 (units unknown) (unknown) (unknown) (no date) (unknown) (unknown) promethazine 25 mg rectal 25 mg PA Q4-6H PRN Nausea And 01/27/22 08/12/22 (units unknown) (unknown) (unknown) (no date) (unknown) (unknown) return to the ED thi s morning was treated once again discharged home returned (units unknown) (unknown) (unknown) (no date) (unknown) (unknown) saturation 99% on room air WBC 18.1, neutrophils 14,000, lactate 2.3 patient (units unknown) (unknown) (unknown) (no date) (unknown) (unknown) solution (units unknown) (unknown) (unknown) (no date) (unknown) (unknown) subcutaneous solutio n (Novolog (units unknown) (unknown) (unknown) (no date) (unknown) (unknown) sulfamethoxazole 800 1 tab PO Q12H 10 days #20 tabs 08/11/22 08/12/22 Rx (units unknown) (unknown) (unknown) (no date) (unknown) (unknown) suppositories, IV Zofran (units unknown) (unknown) (unknown) (no date) (unknown) (unknown) suppository (Promethegan) Vomiting (units unknown) (unknown) (unknown) (no date) (unknown) (unknown) tachypneic (units unknown) (unknown) (unknown) (no date) (unknown) (unknown) that the pt can overcome, in no respiratory distress at this time. (units unknown) (unknown) (unknown) (no date) (unknown) (unknown) the ED returning for the 3rd time this evening with intractable nausea and (units unknown) (unknown) (unknown) (no date) (unknown) (unknown) the ED yesterday for nausea vomiting with UTI, was given prescription for (units unknown) (unknown) (unknown) (no date) (unknown) (unknown) the patient's curren t medications. (units unknown) (unknown) (unknown) (no date) (unknown) (unknown) the patient's health. (units unknown) (unknown) (unknown) (no date) (unknown) (unknown) this evening with intractable nausea and vomiting after picking up her (units unknown) (unknown) (unknown) (no date) (unknown) (unknown) to touch intact, no gross deficits noted of cranial nerves. (units unknown) (unknown) (unknown) (no date) (unknown) (unknown) type 1 diabetes, wit h peripheral neuropathy and gastroparesis who presented to (units unknown) (unknown) (unknown) (no date) (unknown) (unknown) use, cannabis hyperemesis syndrome, cyclic vomiting syndrome, GERD, migraines, (units unknown) (unknown) (unknown) (no date) (unknown) (unknown) vision, difficulty swallowing, speech impairment, numbness, tingling, difficulty (units unknown) (unknown) (unknown) (no date) (unknown) (unknown) vomiting from UTI. Patient admitted for lactic acidosis sepsis without shock, (units unknown) (unknown) (unknown) (no date) (unknown) (unknown) vomiting (units unknown) (unknown) (unknown) (no date) (unknown) (unknown) wheezes, rhonchi, or rales. (units unknown) (unknown) (unknown) (no date) (unknown) (unknown) with ambulation, recent falls, head injury, LOC, fever, chills, cough, recent (units unknown) (unknown) (unknown) (no date) (unknown) (unknown) without guarding or rebound, positive CVA tenderness. (units unknown) (unknown) Result panel 1618 (unknown) (no date) (unknown) (unknown) (no value) (units unknown) (unknown) (unknown) (no date) (unknown) (unknown) #: [id number] (units unknown) (unknown) (unknown) (no date) (unknown) (unknown) (Bactrim DS) (units unknown) (unknown) (unknown) (no date) (unknown) (unknown) (past 8 hours): (units unknown) (unknown) (unknown) (no date) (unknown) (unknown) - last A1c 2 6.3 -reviewed endocrinology notes (units unknown) (unknown) (unknown) (no date) (unknown) (unknown) -Admit: 98.3?, BP 143/83, HR 123, R 24, O2 saturation 99% (units unknown) (unknown) (unknown) (no date) (unknown) (unknown) -BMI 22.8 (units unknown) (unknown) (unknown) (no date) (unknown) (unknown) -BNP q.4 hours (units unknown) (unknown) (unknown) (no date) (unknown) (unknown) -BNP q.4 hours, glucose checks q.2 hours-until gap closed<12 (units unknown) (unknown) (unknown) (no date) (unknown) (unknown) -ED: BP of 123/77 bu t was tachycardic HR 111, tachypneic RR 21. (units unknown) (unknown) (unknown) (no date) (unknown) (unknown) -Haldol 0.5 4 times daily-for antiemetic control, in addition to Phenergan (units unknown) (unknown) (unknown) (no date) (unknown) (unknown) -UA positive for UTI , urine culture pending, blood culture pending (units unknown) (unknown) (unknown) (no date) (unknown) (unknown) -V/SQ 1 hour x4 if stable may change to q.4 hours: Notify for HR>120, RR>36, (units unknown) (unknown) (unknown) (no date) (unknown) (unknown) -WBC 18.1, neutrophils 14,000, lactate 2.3 patient meets SIRS severe sepsis (units unknown) (unknown) (unknown) (no date) (unknown) (unknown) -While vomiting: holding Reglan, protonix- changed to IV protonix (units unknown) (unknown) (unknown) (no date) (unknown) (unknown) -admitted under diabetic protocols, sliding scale for coverage, patient normally (units unknown) (unknown) (unknown) (no date) (unknown) (unknown) -antiemetics, pain control (units unknown) (unknown) (unknown) (no date) (unknown) (unknown) -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 Astudillo (units unknown) (unknown) (unknown) (no date) (unknown) (unknown) -continue phenergan supp (units unknown) (unknown) (unknown) (no date) (unknown) (unknown) -dietary consult ordered to evaluate and implement steps to improve caloric (units unknown) (unknown) (unknown) (no date) (unknown) (unknown) -initiated for complicated sepsis UTI meropenem and vancomycin- alter based on (units unknown) (unknown) (unknown) (no date) (unknown) (unknown) -on admit initiated sepsis bolus 30 cc/kg per hour (units unknown) (unknown) (unknown) (no date) (unknown) (unknown) -ordered 40 mEq potassium rider (units unknown) (unknown) (unknown) (no date) (unknown) (unknown) -ordered renal ultrasound to check for hydronephrosis (units unknown) (unknown) (unknown) (no date) (unknown) (unknown) -ordered salicylate, amylase, TSH, troponin, urine osmolality, ETOH, A1C (units unknown) (unknown) (unknown) (no date) (unknown) (unknown) -patient given Rocephin in ED (units unknown) (unknown) (unknown) (no date) (unknown) (unknown) -patient's malnutrition places them at high risk for medical and surgical (units unknown) (unknown) (unknown) (no date) (unknown) (unknown) -potassium 3.3, -ordered 40 mEq potassium rider (units unknown) (unknown) (unknown) (no date) (unknown) (unknown) -potassium 3.3, bicarb 19, glucose 92, ketones 5.09 anion gap 20, not in DKA (units unknown) (unknown) (unknown) (no date) (unknown) (unknown) -potassium goal: 4-5 (units unknown) (unknown) (unknown) (no date) (unknown) (unknown) -strict I+O, notify for UOP< 50 cc/HR (units unknown) (unknown) (unknown) (no date) (unknown) (unknown) -to be followed by N S at 100 cc/HR (units unknown) (unknown) (unknown) (no date) (unknown) (unknown) -will dose Humalog per patient's personal dosing schedule. (units unknown) (unknown) (unknown) (no date) (unknown) (unknown) 00:06 00:06 00:06 (units unknown) (unknown) (unknown) (no date) (unknown) (unknown) 00:06 00:30 (units unknown) (unknown) (unknown) (no date) (unknown) (unknown) 01:00 (units unknown) (unknown) (unknown) (no date) (unknown) (unknown) 08/11/22 (units unknown) (unknown) (unknown) (no date) (unknown) (unknown) 08/12/22 00:06 (units unknown) (unknown) (unknown) (no date) (unknown) (unknown) 08/12/22 08/12/22 08/12/22 (units unknown) (unknown) (unknown) (no date) (unknown) (unknown) 08/12/22 08/12/22 (units unknown) (unknown) (unknown) (no date) (unknown) (unknown) 1. Lactic acidosis sepsis (metabolic) without septic shock due to (units unknown) (unknown) (unknown) (no date) (unknown) (unknown) 2. 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 Hypokalemia, acute, secondary to volume loss N/V, present on admission (units unknown) (unknown) (unknown) (no date) (unknown) (unknown) 4. Malnutrition, mild, acute on chronic, present on admission (units unknown) (unknown) (unknown) (no date) (unknown) (unknown) ALT 20 (units unknown) (unknown) (unknown) (no date) (unknown) (unknown) ALT (units unknown) (unknown) (unknown) (no date) (unknown) (unknown) AST 31 (units unknown) (unknown) (unknown) (no date) (unknown) (unknown) AST (units unknown) (unknown) (unknown) (no date) (unknown) (unknown) Abdomen: Soft diffus e generalized tenderness radiation around to back, negative (units unknown) (unknown) (unknown) (no date) (unknown) (unknown) Age/Sex: 27 / F (units unknown) (unknown) (unknown) (no date) (unknown) (unknown) Albumin 4.7 (units unknown) (unknown) (unknown) (no date) (unknown) (unknown) Albumin (units unknown) (unknown) (unknown) (no date) (unknown) (unknown) Albumin/Globulin Ratio 1.5 (units unknown) (unknown) (unknown) (no date) (unknown) (unknown) Albumin/Globulin Ratio (units unknown) (unknown) (unknown) (no date) (unknown) (unknown) Alkaline Phosphatase 115 (units unknown) (unknown) (unknown) (no date) (unknown) (unknown) Alkaline Phosphatase (units unknown) (unknown) (unknown) (no date) (unknown) (unknown) All 12 point systems reviewed with the patient and are negative except otherwise (units unknown) (unknown) (unknown) (no date) (unknown) (unknown) Allergies (units unknown) (unknown) (unknown) (no date) (unknown) (unknown) Allergy/AdvReac Type Severity Reaction Status Date / Time (units unknown) (unknown) (unknown) (no date) (unknown) (unknown) Anemia (units unknown) (unknown) (unknown) (no date) (unknown) (unknown) Assessment + Plan narrative: (units unknown) (unknown) (unknown) (no date) (unknown) (unknown) Assessment + Plan (units unknown) (unknown) (unknown) (no date) (unknown) (unknown) At the time of admit patient's vitals temp 98.3?, BP 143/83, HR 123, R 24, O2 (units unknown) (unknown) (unknown) (no date) (unknown) (unknown) BUN 12 (units unknown) (unknown) (unknown) (no date) (unknown) (unknown) BUN (units unknown) (unknown) (unknown) (no date) (unknown) (unknown) BUN/Creatinine Ratio 21.4 (units unknown) (unknown) (unknown) (no date) (unknown) (unknown) BUN/Creatinine Ratio (units unknown) (unknown) (unknown) (no date) (unknown) (unknown) Baso # (Auto) 0 (units unknown) (unknown) (unknown) (no date) (unknown) (unknown) Baso # (Auto) (units unknown) (unknown) (unknown) (no date) (unknown) (unknown) Baso % (Auto) 0.1 (units unknown) (unknown) (unknown) (no date) (unknown) (unknown) Baso % (Auto) (units unknown) (unknown) (unknown) (no date) (unknown) (unknown) Blood Pressure 143/8 3 H (units unknown) (unknown) (unknown) (no date) (unknown) (unknown) COVID PCR:Ordered (units unknown) (unknown) (unknown) (no date) (unknown) (unknown) Calcium 8.7 (units unknown) (unknown) (unknown) (no date) (unknown) (unknown) Calcium (units unknown) (unknown) (unknown) (no date) (unknown) (unknown) Carbon Dioxide 19 L (units unknown) (unknown) (unknown) (no date) (unknown) (unknown) Carbon Dioxide (units unknown) (unknown) (unknown) (no date) (unknown) (unknown) Cardio: Tachycardic regular rate and rhythm without murmur, rubs, or gallops, (units unknown) (unknown) (unknown) (no date) (unknown) (unknown) Chest: Breathing without nasal flaring, retractions, or labored, but is (units unknown) (unknown) (unknown) (no date) (unknown) (unknown) Chief complaint: vomiting, back pain was seen earlier today (units unknown) (unknown) (unknown) (no date) (unknown) (unknown) Chloride 99 (units unknown) (unknown) (unknown) (no date) (unknown) (unknown) Chloride (units unknown) (unknown) (unknown) (no date) (unknown) (unknown) Code status: DNR DNI via patient wishes documented in chart 01/2022 (units unknown) (unknown) (unknown) (no date) (unknown) (unknown) Creatinine 0.56 (units unknown) (unknown) (unknown) (no date) (unknown) (unknown) Creatinine (units unknown) (unknown) (unknown) (no date) (unknown) (unknown) Cyclic vomiting syndrome (units unknown) (unknown) (unknown) (no date) (unknown) (unknown) DKA (diabetic ketoacidoses) (units unknown) (unknown) (unknown) (no date) (unknown) (unknown) : 1995 Acct:[id number] (units unknown) (unknown) (unknown) (no date) (unknown) (unknown) DVT/VTE prophylaxis: Lovenox and SCDs (units unknown) (unknown) (unknown) (no date) (unknown) (unknown) Date Patient Seen: 08/12/22 (units unknown) (unknown) (unknown) (no date) (unknown) (unknown) Date of Service: 08/12/22 (units unknown) (unknown) (unknown) (no date) (unknown) (unknown) Diabetes mellitus, type I (units unknown) (unknown) (unknown) (no date) (unknown) (unknown) Disposition: Patient admitted for IV fluids, antibiotics, resolution of lactic (units unknown) (unknown) (unknown) (no date) (unknown) (unknown) Eos # (Auto) 0 (units unknown) (unknown) (unknown) (no date) (unknown) (unknown) Eos # (Auto) (units unknown) (unknown) (unknown) (no date) (unknown) (unknown) Eos % (Auto) 0.0 L (units unknown) (unknown) (unknown) (no date) (unknown) (unknown) Eos % (Auto) (units unknown) (unknown) (unknown) (no date) (unknown) (unknown) Estimated GFR > 60 (units unknown) (unknown) (unknown) (no date) (unknown) (unknown) Estimated GFR (units unknown) (unknown) (unknown) (no date) (unknown) (unknown) Ethyl Alcohol < 10 (units unknown) (unknown) (unknown) (no date) (unknown) (unknown) Ethyl Alcohol (units unknown) (unknown) (unknown) (no date) (unknown) (unknown) Exam Narrative: (units unknown) (unknown) (unknown) (no date) (unknown) (unknown) Exam (units unknown) (unknown) (unknown) (no date) (unknown) (unknown) Family History (units unknown) (unknown) (unknown) (no date) (unknown) (unknown) Father Healthy adult (units unknown) (unknown) (unknown) (no date) (unknown) (unknown) Gastroparesis (units unknown) (unknown) (unknown) (no date) (unknown) (unknown) General: Patient is a well-developed, well-nourished in mild distress shaking (units unknown) (unknown) (unknown) (no date) (unknown) (unknown) Globulin 3.1 (units unknown) (unknown) (unknown) (no date) (unknown) (unknown) Globulin (units unknown) (unknown) (unknown) (no date) (unknown) (unknown) Glucose 92 (units unknown) (unknown) (unknown) (no date) (unknown) (unknown) Glucose (units unknown) (unknown) (unknown) (no date) (unknown) (unknown) HEENT: Normocephalic , atraumatic, extraocular muscles intact, oral pharynx is (units unknown) (unknown) (unknown) (no date) (unknown) (unknown) Hct 34.9 L (units unknown) (unknown) (unknown) (no date) (unknown) (unknown) Hct (units unknown) (unknown) (unknown) (no date) (unknown) (unknown) Hgb 11.4 L (units unknown) (unknown) (unknown) (no date) (unknown) (unknown) Hgb (units unknown) (unknown) (unknown) (no date) (unknown) (unknown) History + Physical Report (units unknown) (unknown) (unknown) (no date) (unknown) (unknown) History of Present Illness (units unknown) (unknown) (unknown) (no date) (unknown) (unknown) History (units unknown) (unknown) (unknown) (no date) (unknown) (unknown) Home Medications and Allergies (units unknown) (unknown) (unknown) (no date) (unknown) (unknown) Home Medications (units unknown) (unknown) (unknown) (no date) (unknown) (unknown) Hospital. (units unknown) (unknown) (unknown) (no date) (unknown) (unknown) I confirmed that the patient's advanced care plan is present, Code status is (units unknown) (unknown) (unknown) (no date) (unknown) (unknown) I have personally reviewed patient's chart notes from PCP, specialists, (units unknown) (unknown) (unknown) (no date) (unknown) (unknown) I have reviewed patient's recent endocrinology notes from [facility] (units unknown) (unknown) (unknown) (no date) (unknown) (unknown) I have utilized all available immediate resources to obtain, update, or review (units unknown) (unknown) (unknown) (no date) (unknown) (unknown) Insulin dependent diabetes mellitus (units unknown) (unknown) (unknown) (no date) (unknown) (unknown) [address] [address] (units unknown) (unknown) (unknown) (no date) (unknown) (unknown) Kaur Morris is 27-year-old female daily smoker (vaping), hx of marijuana daily (units unknown) (unknown) (unknown) (no date) (unknown) (unknown) Ketones 5.09 H (units unknown) (unknown) (unknown) (no date) (unknown) (unknown) Ketones (units unknown) (unknown) (unknown) (no date) (unknown) (unknown) Laboratory Results - last 24 hr (units unknown) (unknown) (unknown) (no date) (unknown) (unknown) Labs (units unknown) (unknown) (unknown) (no date) (unknown) (unknown) Labs: (units unknown) (unknown) (unknown) (no date) (unknown) (unknown) Lactate 2.3 H (units unknown) (unknown) (unknown) (no date) (unknown) (unknown) Lactate (units unknown) (unknown) (unknown) (no date) (unknown) (unknown) Lipase 24 (units unknown) (unknown) (unknown) (no date) (unknown) (unknown) Lipase (units unknown) (unknown) (unknown) (no date) (unknown) (unknown) Lungs: Auscultation of all lung hendricks are clear without adventitious sounds, (units unknown) (unknown) (unknown) (no date) (unknown) (unknown) Lymph # (Auto) 3200 (units unknown) (unknown) (unknown) (no date) (unknown) (unknown) Lymph # (Auto) (units unknown) (unknown) (unknown) (no date) (unknown) (unknown) Lymph % (Auto) 17.7 L (units unknown) (unknown) (unknown) (no date) (unknown) (unknown) Lymph % (Auto) (units unknown) (unknown) (unknown) (no date) (unknown) (unknown) MAP<70, BP <90/60, B P >180/105, Temp>102 (units unknown) (unknown) (unknown) (no date) (unknown) (unknown) MCH 25.5 L (units unknown) (unknown) (unknown) (no date) (unknown) (unknown) MCH (units unknown) (unknown) (unknown) (no date) (unknown) (unknown) MCHC 32.7 (units unknown) (unknown) (unknown) (no date) (unknown) (unknown) MCHC (units unknown) (unknown) (unknown) (no date) (unknown) (unknown) MCV 78.0 L (units unknown) (unknown) (unknown) (no date) (unknown) (unknown) MCV (units unknown) (unknown) (unknown) (no date) (unknown) (unknown) Magnesium 1.8 (units unknown) (unknown) (unknown) (no date) (unknown) (unknown) Magnesium (units unknown) (unknown) (unknown) (no date) (unknown) (unknown) Medical History (units unknown) (unknown) (unknown) (no date) (unknown) (unknown) Medication Instructions Recorded Confirmed Type (units unknown) (unknown) (unknown) (no date) (unknown) (unknown) Meds (units unknown) (unknown) (unknown) (no date) (unknown) (unknown) Migraine headache with aura (units unknown) (unknown) (unknown) (no date) (unknown) (unknown) O'Brien # (Auto) 900 (units unknown) (unknown) (unknown) (no date) (unknown) (unknown) O'Brien # (Auto) (units unknown) (unknown) (unknown) (no date) (unknown) (unknown) O'Brien % (Auto) 4.8 (units unknown) (unknown) (unknown) (no date) (unknown) (unknown) O'Brien % (Auto) (units unknown) (unknown) (unknown) (no date) (unknown) (unknown) Mother Hypertension (units unknown) (unknown) (unknown) (no date) (unknown) (unknown) Musculoskeletal: Muscle strength and tone are equal within normal limits, no (units unknown) (unknown) (unknown) (no date) (unknown) (unknown) Myopia (units unknown) (unknown) (unknown) (no date) (unknown) (unknown) Narrative (units unknown) (unknown) (unknown) (no date) (unknown) (unknown) Narrative: (units unknown) (unknown) (unknown) (no date) (unknown) (unknown) Negative for JVD (units unknown) (unknown) (unknown) (no date) (unknown) (unknown) Neuro: Alert and orientated x3, strength is +5/5 in all extremities, sensation (units unknown) (unknown) (unknown) (no date) (unknown) (unknown) Neut # (Auto) 70402 H (units unknown) (unknown) (unknown) (no date) (unknown) (unknown) Neut # (Auto) (units unknown) (unknown) (unknown) (no date) (unknown) (unknown) Neut % (Auto) 77.4 H (units unknown) (unknown) (unknown) (no date) (unknown) (unknown) Neut % (Auto) (units unknown) (unknown) (unknown) (no date) (unknown) (unknown) Objective (units unknown) (unknown) (unknown) (no date) (unknown) (unknown) On admit patient denies chest pain, shortness in breath, headache, changes in (units unknown) (unknown) (unknown) (no date) (unknown) (unknown) Oxygen Delivery Method Room Air (units unknown) (unknown) (unknown) (no date) (unknown) (unknown) PFSH (units unknown) (unknown) (unknown) (no date) (unknown) (unknown) Pancreatitis (units unknown) (unknown) (unknown) (no date) (unknown) (unknown) Patient's urine was positive for UTI and urine cultures were collected yesterday (units unknown) (unknown) (unknown) (no date) (unknown) (unknown) Patient: Kaur Horton MR (units unknown) (unknown) (unknown) (no date) (unknown) (unknown) Phosphorus 3.1 (units unknown) (unknown) (unknown) (no date) (unknown) (unknown) Phosphorus (units unknown) (unknown) (unknown) (no date) (unknown) (unknown) Plt Count 317 (units unknown) (unknown) (unknown) (no date) (unknown) (unknown) Plt Count (units unknown) (unknown) (unknown) (no date) (unknown) (unknown) Potassium 3.3 L (units unknown) (unknown) (unknown) (no date) (unknown) (unknown) Potassium (units unknown) (unknown) (unknown) (no date) (unknown) (unknown) Procalcitonin 0.19 (units unknown) (unknown) (unknown) (no date) (unknown) (unknown) Procalcitonin (units unknown) (unknown) (unknown) (no date) (unknown) (unknown) Provider: Gracia Smith-BRITTANY (units unknown) (unknown) (unknown) (no date) (unknown) (unknown) Psych: Patient has a well-kept appearance, appropriate affect, mental status (units unknown) (unknown) (unknown) (no date) (unknown) (unknown) Pulse Oximetry 99 98 (units unknown) (unknown) (unknown) (no date) (unknown) (unknown) Pulse Rate 123 H 85 (units unknown) (unknown) (unknown) (no date) (unknown) (unknown) RBC 4.47 (units unknown) (unknown) (unknown) (no date) (unknown) (unknown) RBC (units unknown) (unknown) (unknown) (no date) (unknown) (unknown) RDW 15.9 H (units unknown) (unknown) (unknown) (no date) (unknown) (unknown) RDW (units unknown) (unknown) (unknown) (no date) (unknown) (unknown) Respiratory Rate 24 16 (units unknown) (unknown) (unknown) (no date) (unknown) (unknown) Review of Systems (units unknown) (unknown) (unknown) (no date) (unknown) (unknown) SARS-CoV-2 (PCR) Negative (units unknown) (unknown) (unknown) (no date) (unknown) (unknown) SARS-CoV-2 (PCR) (units unknown) (unknown) (unknown) (no date) (unknown) (unknown) Serum , Sushil l Negative (units unknown) (unknown) (unknown) (no date) (unknown) (unknown) Serum , Qual (units unknown) (unknown) (unknown) (no date) (unknown) (unknown) Signed By: (units unknown) (unknown) (unknown) (no date) (unknown) (unknown) Skin: Warm dry and intact without rashes, ulcerations or petechiae. (units unknown) (unknown) (unknown) (no date) (unknown) (unknown) Smoking Status: Current every day smoker (units unknown) (unknown) (unknown) (no date) (unknown) (unknown) Social History (units unknown) (unknown) (unknown) (no date) (unknown) (unknown) Sodium 138 (units unknown) (unknown) (unknown) (no date) (unknown) (unknown) Sodium (units unknown) (unknown) (unknown) (no date) (unknown) (unknown) Status post appendectomy (units unknown) (unknown) (unknown) (no date) (unknown) (unknown) Surgical History (units unknown) (unknown) (unknown) (no date) (unknown) (unknown) Surrogate decision maker: Spouse Khoa (units unknown) (unknown) (unknown) (no date) (unknown) (unknown) Temperature 98.3 F (units unknown) (unknown) (unknown) (no date) (unknown) (unknown) Time Patient Seen: 01:17 (units unknown) (unknown) (unknown) (no date) (unknown) (unknown) Total Bilirubin 1.0 (units unknown) (unknown) (unknown) (no date) (unknown) (unknown) Total Bilirubin (units unknown) (unknown) (unknown) (no date) (unknown) (unknown) Total Protein 7.8 (units unknown) (unknown) (unknown) (no date) (unknown) (unknown) Total Protein (units unknown) (unknown) (unknown) (no date) (unknown) (unknown) U-100 Insulin aspart) (units unknown) (unknown) (unknown) (no date) (unknown) (unknown) UTI/pyelonephritis, with intractable nausea vomiting, acute, present on (units unknown) (unknown) (unknown) (no date) (unknown) (unknown) Vital Signs (units unknown) (unknown) (unknown) (no date) (unknown) (unknown) WBC 18.1 H (units unknown) (unknown) (unknown) (no date) (unknown) (unknown) WBC (units unknown) (unknown) (unknown) (no date) (unknown) (unknown) [Embedded Image Not Available] (units unknown) (unknown) (unknown) (no date) (unknown) (unknown) acidosis/sepsis due to pyelonephritis, expected length of stay greater than 2 (units unknown) (unknown) (unknown) (no date) (unknown) (unknown) admission (units unknown) (unknown) (unknown) (no date) (unknown) (unknown) admitted for lactic acidosis sepsis without shock, due to UTI/pyelonephritis. (units unknown) (unknown) (unknown) (no date) (unknown) (unknown) alcohol intake: never (units unknown) (unknown) (unknown) (no date) (unknown) (unknown) antibiotics was unable to keep them down and failed oral challenge in ED. (units unknown) (unknown) (unknown) (no date) (unknown) (unknown) antibiotics/antiemet i cs was unable to fill them as the pharmacies were closed (units unknown) (unknown) (unknown) (no date) (unknown) (unknown) attitude thought context and judgment are appropriate for age. (units unknown) (unknown) (unknown) (no date) (unknown) (unknown) clear and mucous membranes are dry. Neck is supple and symmetric, trachea is (units unknown) (unknown) (unknown) (no date) (unknown) (unknown) complications in relation to acute illness/chronic illness. This increases the (units unknown) (unknown) (unknown) (no date) (unknown) (unknown) constipation, incontinence, melena, rashes, recent changes to medication, (units unknown) (unknown) (unknown) (no date) (unknown) (unknown) cord. (units unknown) (unknown) (unknown) (no date) (unknown) (unknown) criteria, Anion Gap 20-monitor for septic shock/DKA (units unknown) (unknown) (unknown) (no date) (unknown) (unknown) cultures (units unknown) (unknown) (unknown) (no date) (unknown) (unknown) deformity, crepitus, effusions, cyanosis, clubbing or edema present. Full range (units unknown) (unknown) (unknown) (no date) (unknown) (unknown) diagnostic imaging, and laboratory results. (units unknown) (unknown) (unknown) (no date) (unknown) (unknown) difficulty in complexity of medical management and increases the chances poor (units unknown) (unknown) (unknown) (no date) (unknown) (unknown) documented and/or surrogate decision maker is listed in the patient's medical re (units unknown) (unknown) (unknown) (no date) (unknown) (unknown) documented. (units unknown) (unknown) (unknown) (no date) (unknown) (unknown) due to UTI/pyelonephritis, after failing outpatient management. (units unknown) (unknown) (unknown) (no date) (unknown) (unknown) exposure to illness, abdominal pain, nausea, vomiting, urinary (units unknown) (unknown) (unknown) (no date) (unknown) (unknown) for organomegaly, or masses. Bowel sounds are present in all 4 quadrants (units unknown) (unknown) (unknown) (no date) (unknown) (unknown) from ED, blood cultures obtained tonight-pending. COVID not ordered. Patient (units unknown) (unknown) (unknown) (no date) (unknown) (unknown) gastroparesis, chronic, present on admission (units unknown) (unknown) (unknown) (no date) (unknown) (unknown) household members: spouse (units unknown) (unknown) (unknown) (no date) (unknown) (unknown) illness, injury, or trauma. (units unknown) (unknown) (unknown) (no date) (unknown) (unknown) immune suppression. (units unknown) (unknown) (unknown) (no date) (unknown) (unknown) incontinence/retenti o n, dysuria, frequency, urgency, hematuria, bowel changes, (units unknown) (unknown) (unknown) (no date) (unknown) (unknown) insulin aspart U-100 100 unit/mL 56 SUBCUT DAILY 08/12/22 History (units unknown) (unknown) (unknown) (no date) (unknown) (unknown) insulin syringes (disposable) 1 mL #500 ea 08/04/20 02/07/22 Rx (units unknown) (unknown) (unknown) (no date) (unknown) (unknown) intake and nutrition. (units unknown) (unknown) (unknown) (no date) (unknown) (unknown) ketorolac [From Toradol] Allergy Verified 08/10/22 14:43 (units unknown) (unknown) (unknown) (no date) (unknown) (unknown) meets SIRS severe sepsis criteria, H+H 11.4/34.9, MCV 78, MCH 25.5. Hypokalemia (units unknown) (unknown) (unknown) (no date) (unknown) (unknown) metoclopramide HCl 5 mg/5 mL oral 5 mg PO Q8H PRN Nausea 08/12/22 08/12/22 (units unknown) (unknown) (unknown) (no date) (unknown) (unknown) mg-trimethoprim 160 mg tablet (units unknown) (unknown) (unknown) (no date) (unknown) (unknown) midline, no adenopathy, no thyroid enlargement, nontender, no masses palpated. (units unknown) (unknown) (unknown) (no date) (unknown) (unknown) midnights. (units unknown) (unknown) (unknown) (no date) (unknown) (unknown) no carotid bruit, no cardiac pulsations present. (units unknown) (unknown) (unknown) (no date) (unknown) (unknown) of motion intact radial and pedal pulses are normal. (units unknown) (unknown) (unknown) (no date) (unknown) (unknown) outcomes such as mortality and morbidity as well as impaired wound healing, and (units unknown) (unknown) (unknown) (no date) (unknown) (unknown) patient in ED had a BP of 123/77 but was tachycardic HR 111, tachypneic RR 21. (units unknown) (unknown) (unknown) (no date) (unknown) (unknown) potassium 3.3, bicar b 19, glucose 92, ketones 5.09, anion gap 20, not in DKA (units unknown) (unknown) (unknown) (no date) (unknown) (unknown) promethazine 12.5 mg tablet 25 mg PO BID PRN nausea and 08/12/22 08/12/22 (units unknown) (unknown) (unknown) (no date) (unknown) (unknown) promethazine 25 mg rectal 25 mg PA Q4-6H PRN Nausea And 01/27/22 08/12/22 (units unknown) (unknown) (unknown) (no date) (unknown) (unknown) return to the ED thi s morning was treated once again discharged home returned (units unknown) (unknown) (unknown) (no date) (unknown) (unknown) saturation 99% on room air WBC 18.1, neutrophils 14,000, lactate 2.3 patient (units unknown) (unknown) (unknown) (no date) (unknown) (unknown) solution (units unknown) (unknown) (unknown) (no date) (unknown) (unknown) subcutaneous solutio n (Novolog (units unknown) (unknown) (unknown) (no date) (unknown) (unknown) sulfamethoxazole 800 1 tab PO Q12H 10 days #20 tabs 08/11/22 08/12/22 Rx (units unknown) (unknown) (unknown) (no date) (unknown) (unknown) suppositories, IV Zofran (units unknown) (unknown) (unknown) (no date) (unknown) (unknown) suppository ([facility]) Vomiting (units unknown) (unknown) (unknown) (no date) (unknown) (unknown) tachypneic (units unknown) (unknown) (unknown) (no date) (unknown) (unknown) that the pt can overcome, in no respiratory distress at this time. (units unknown) (unknown) (unknown) (no date) (unknown) (unknown) the ED returning for the 3rd time this evening with intractable nausea and (units unknown) (unknown) (unknown) (no date) (unknown) (unknown) the ED yesterday for nausea vomiting with UTI, was given prescription for (units unknown) (unknown) (unknown) (no date) (unknown) (unknown) the patient's curren t medications. (units unknown) (unknown) (unknown) (no date) (unknown) (unknown) this evening with intractable nausea and vomiting after picking up her (units unknown) (unknown) (unknown) (no date) (unknown) (unknown) to touch intact, no gross deficits noted of cranial nerves. (units unknown) (unknown) (unknown) (no date) (unknown) (unknown) type 1 diabetes, wit h peripheral neuropathy and gastroparesis who presented to (units unknown) (unknown) (unknown) (no date) (unknown) (unknown) use, cannabis hyperemesis syndrome, cyclic vomiting syndrome, GERD, migraines, (units unknown) (unknown) (unknown) (no date) (unknown) (unknown) vision, difficulty swallowing, speech impairment, numbness, tingling, difficulty (units unknown) (unknown) (unknown) (no date) (unknown) (unknown) vomiting from UTI. Patient admitted for lactic acidosis sepsis without shock, (units unknown) (unknown) (unknown) (no date) (unknown) (unknown) vomiting (units unknown) (unknown) (unknown) (no date) (unknown) (unknown) wears an insulin pum p was discontinued per hospital policy. (units unknown) (unknown) (unknown) (no date) (unknown) (unknown) wheezes, rhonchi, or rales. (units unknown) (unknown) (unknown) (no date) (unknown) (unknown) with ambulation, recent falls, head injury, LOC, fever, chills, cough, recent (units unknown) (unknown) (unknown) (no date) (unknown) (unknown) without guarding or rebound, positive CVA tenderness. (units unknown) (unknown) Result panel 1619 (unknown) (no date) (unknown) (unknown) 171 mg/dl (unknown) (unknown) (no date) (unknown) (unknown) 171 mg/dl 38162-2 (unknown) (no date) (unknown) (unknown) 7.6 % 4548-4 (unknown) (no date) (unknown) (unknown) 7.6 % (unknown) Result panel 1620 (unknown) (no date) (unknown) (unknown) (no value) (units unknown) (unknown) (unknown) (no date) (unknown) (unknown) #: [id number] (units unknown) (unknown) (unknown) (no date) (unknown) (unknown) (Bactrim DS) (units unknown) (unknown) (unknown) (no date) (unknown) (unknown) (past 8 hours): (units unknown) (unknown) (unknown) (no date) (unknown) (unknown) - last A1c 2 6.3 -reviewed endocrinology notes (units unknown) (unknown) (unknown) (no date) (unknown) (unknown) -Admit: 98.3?, BP 143/83, HR 123, R 24, O2 saturation 99% (units unknown) (unknown) (unknown) (no date) (unknown) (unknown) -BMI 22.8 (units unknown) (unknown) (unknown) (no date) (unknown) (unknown) -BMP q.4 hours, glucose checks q.2 hours-until gap closed<12 (units unknown) (unknown) (unknown) (no date) (unknown) (unknown) -BNP q.4 hours (units unknown) (unknown) (unknown) (no date) (unknown) (unknown) -ED: BP of 123/77 bu t was tachycardic HR 111, tachypneic RR 21. (units unknown) (unknown) (unknown) (no date) (unknown) (unknown) -Haldol 0.5 4 times daily-for antiemetic control, in addition to Phenergan (units unknown) (unknown) (unknown) (no date) (unknown) (unknown) -UA positive for UTI , urine culture pending, blood culture pending (units unknown) (unknown) (unknown) (no date) (unknown) (unknown) -V/SQ 1 hour x4 if stable may change to q.4 hours: Notify for HR>120, RR>36, (units unknown) (unknown) (unknown) (no date) (unknown) (unknown) -WBC 18.1, neutrophils 14,000, lactate 2.3 patient meets SIRS severe sepsis (units unknown) (unknown) (unknown) (no date) (unknown) (unknown) -While vomiting: holding Reglan, protonix- changed to IV protonix (units unknown) (unknown) (unknown) (no date) (unknown) (unknown) -admitted under diabetic protocols, sliding scale for coverage, patient normally (units unknown) (unknown) (unknown) (no date) (unknown) (unknown) -antiemetics, pain control (units unknown) (unknown) (unknown) (no date) (unknown) (unknown) -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 Astudillo (units unknown) (unknown) (unknown) (no date) (unknown) (unknown) -continue phenergan supp (units unknown) (unknown) (unknown) (no date) (unknown) (unknown) -dietary consult ordered to evaluate and implement steps to improve caloric (units unknown) (unknown) (unknown) (no date) (unknown) (unknown) -history cannabis hyperemesis syndrome/cyclic vomiting syndrome (units unknown) (unknown) (unknown) (no date) (unknown) (unknown) -initiated for complicated sepsis UTI meropenem and vancomycin (per up-to date) (units unknown) (unknown) (unknown) (no date) (unknown) (unknown) -on admit initiated sepsis bolus 30 cc/kg per hour (units unknown) (unknown) (unknown) (no date) (unknown) (unknown) -ordered 40 mEq potassium rider (units unknown) (unknown) (unknown) (no date) (unknown) (unknown) -ordered renal ultrasound to check for hydronephrosis (units unknown) (unknown) (unknown) (no date) (unknown) (unknown) -ordered salicylate, amylase, TSH, troponin, urine osmolality, ETOH, A1C (units unknown) (unknown) (unknown) (no date) (unknown) (unknown) -patient given Rocephin in ED (units unknown) (unknown) (unknown) (no date) (unknown) (unknown) -patient's malnutrition places them at high risk for medical and surgical (units unknown) (unknown) (unknown) (no date) (unknown) (unknown) -potassium 3.3, -ordered 40 mEq potassium rider (units unknown) (unknown) (unknown) (no date) (unknown) (unknown) -potassium 3.3, bicarb 19, glucose 92, ketones 5.09 anion gap 20, not in DKA (units unknown) (unknown) (unknown) (no date) (unknown) (unknown) -potassium goal: 4-5 (units unknown) (unknown) (unknown) (no date) (unknown) (unknown) -strict I+O, notify for UOP< 50 cc/HR (units unknown) (unknown) (unknown) (no date) (unknown) (unknown) -to be followed by N S at 100 cc/HR (units unknown) (unknown) (unknown) (no date) (unknown) (unknown) -will dose Humalog per patient's personal dosing schedule. (units unknown) (unknown) (unknown) (no date) (unknown) (unknown) 00:06 00:06 00:06 (units unknown) (unknown) (unknown) (no date) (unknown) (unknown) 00:06 00:30 (units unknown) (unknown) (unknown) (no date) (unknown) (unknown) 01:00 (units unknown) (unknown) (unknown) (no date) (unknown) (unknown) 08/11/22 (units unknown) (unknown) (unknown) (no date) (unknown) (unknown) 08/12/22 00:06 (units unknown) (unknown) (unknown) (no date) (unknown) (unknown) 08/12/22 0217 (units unknown) (unknown) (unknown) (no date) (unknown) (unknown) 08/12/22 08/12/22 08/12/22 (units unknown) (unknown) (unknown) (no date) (unknown) (unknown) 08/12/22 08/12/22 (units unknown) (unknown) (unknown) (no date) (unknown) (unknown) 1. Lactic acidosis sepsis (metabolic) without septic shock due to (units unknown) (unknown) (unknown) (no date) (unknown) (unknown) 2. 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 Hypokalemia, acute, secondary to volume loss N/V, present on admission (units unknown) (unknown) (unknown) (no date) (unknown) (unknown) 4. Malnutrition, mild, acute on chronic, present on admission (units unknown) (unknown) (unknown) (no date) (unknown) (unknown) ALT 20 (units unknown) (unknown) (unknown) (no date) (unknown) (unknown) ALT (units unknown) (unknown) (unknown) (no date) (unknown) (unknown) AST 31 (units unknown) (unknown) (unknown) (no date) (unknown) (unknown) AST (units unknown) (unknown) (unknown) (no date) (unknown) (unknown) Abdomen: Soft diffus e generalized tenderness radiation around to back, negative (units unknown) (unknown) (unknown) (no date) (unknown) (unknown) Age/Sex: 27 / F (units unknown) (unknown) (unknown) (no date) (unknown) (unknown) Albumin 4.7 (units unknown) (unknown) (unknown) (no date) (unknown) (unknown) Albumin (units unknown) (unknown) (unknown) (no date) (unknown) (unknown) Albumin/Globulin Ratio 1.5 (units unknown) (unknown) (unknown) (no date) (unknown) (unknown) Albumin/Globulin Ratio (units unknown) (unknown) (unknown) (no date) (unknown) (unknown) Alkaline Phosphatase 115 (units unknown) (unknown) (unknown) (no date) (unknown) (unknown) Alkaline Phosphatase (units unknown) (unknown) (unknown) (no date) (unknown) (unknown) All 12 point systems reviewed with the patient and are negative except otherwise (units unknown) (unknown) (unknown) (no date) (unknown) (unknown) Allergies (units unknown) (unknown) (unknown) (no date) (unknown) (unknown) Allergy/AdvReac Type Severity Reaction Status Date / Time (units unknown) (unknown) (unknown) (no date) (unknown) (unknown) Anemia (units unknown) (unknown) (unknown) (no date) (unknown) (unknown) Assessment + Plan narrative: (units unknown) (unknown) (unknown) (no date) (unknown) (unknown) Assessment + Plan (units unknown) (unknown) (unknown) (no date) (unknown) (unknown) At the time of admit patient's vitals temp 98.3?, BP 143/83, HR 123, R 24, O2 (units unknown) (unknown) (unknown) (no date) (unknown) (unknown) BUN 12 (units unknown) (unknown) (unknown) (no date) (unknown) (unknown) BUN (units unknown) (unknown) (unknown) (no date) (unknown) (unknown) BUN/Creatinine Ratio 21.4 (units unknown) (unknown) (unknown) (no date) (unknown) (unknown) BUN/Creatinine Ratio (units unknown) (unknown) (unknown) (no date) (unknown) (unknown) Baso # (Auto) 0 (units unknown) (unknown) (unknown) (no date) (unknown) (unknown) Baso # (Auto) (units unknown) (unknown) (unknown) (no date) (unknown) (unknown) Baso % (Auto) 0.1 (units unknown) (unknown) (unknown) (no date) (unknown) (unknown) Baso % (Auto) (units unknown) (unknown) (unknown) (no date) (unknown) (unknown) Blood Pressure 143/8 3 H (units unknown) (unknown) (unknown) (no date) (unknown) (unknown) COVID PCR:Ordered (units unknown) (unknown) (unknown) (no date) (unknown) (unknown) Calcium 8.7 (units unknown) (unknown) (unknown) (no date) (unknown) (unknown) Calcium (units unknown) (unknown) (unknown) (no date) (unknown) (unknown) Cannabis hyperemesis syndrome concurrent with and due to cannabis dependence (units unknown) (unknown) (unknown) (no date) (unknown) (unknown) Carbon Dioxide 19 L (units unknown) (unknown) (unknown) (no date) (unknown) (unknown) Carbon Dioxide (units unknown) (unknown) (unknown) (no date) (unknown) (unknown) Cardio: Tachycardic regular rate and rhythm without murmur, rubs, or gallops, (units unknown) (unknown) (unknown) (no date) (unknown) (unknown) Chest: Breathing without nasal flaring, retractions, or labored, but is (units unknown) (unknown) (unknown) (no date) (unknown) (unknown) Chief complaint: vomiting, back pain was seen earlier today (units unknown) (unknown) (unknown) (no date) (unknown) (unknown) Chloride 99 (units unknown) (unknown) (unknown) (no date) (unknown) (unknown) Chloride (units unknown) (unknown) (unknown) (no date) (unknown) (unknown) Code status: DNR DNI via patient wishes documented in chart 01/2022 (units unknown) (unknown) (unknown) (no date) (unknown) (unknown) Creatinine 0.56 (units unknown) (unknown) (unknown) (no date) (unknown) (unknown) Creatinine (units unknown) (unknown) (unknown) (no date) (unknown) (unknown) Cyclic vomiting syndrome (units unknown) (unknown) (unknown) (no date) (unknown) (unknown) DKA (diabetic ketoacidoses) (units unknown) (unknown) (unknown) (no date) (unknown) (unknown) : 1995 Acct:[id number] (units unknown) (unknown) (unknown) (no date) (unknown) (unknown) DVT/VTE prophylaxis: Lovenox and SCDs (units unknown) (unknown) (unknown) (no date) (unknown) (unknown) Date Patient Seen: 08/12/22 (units unknown) (unknown) (unknown) (no date) (unknown) (unknown) Date of Service: 08/12/22 (units unknown) (unknown) (unknown) (no date) (unknown) (unknown) Diabetes mellitus, type I (units unknown) (unknown) (unknown) (no date) (unknown) (unknown) Disposition: Patient admitted for IV fluids, antibiotics, resolution of lactic (units unknown) (unknown) (unknown) (no date) (unknown) (unknown) Eos # (Auto) 0 (units unknown) (unknown) (unknown) (no date) (unknown) (unknown) Eos # (Auto) (units unknown) (unknown) (unknown) (no date) (unknown) (unknown) Eos % (Auto) 0.0 L (units unknown) (unknown) (unknown) (no date) (unknown) (unknown) Eos % (Auto) (units unknown) (unknown) (unknown) (no date) (unknown) (unknown) Estimated GFR > 60 (units unknown) (unknown) (unknown) (no date) (unknown) (unknown) Estimated GFR (units unknown) (unknown) (unknown) (no date) (unknown) (unknown) Ethyl Alcohol < 10 (units unknown) (unknown) (unknown) (no date) (unknown) (unknown) Ethyl Alcohol (units unknown) (unknown) (unknown) (no date) (unknown) (unknown) Exam Narrative: (units unknown) (unknown) (unknown) (no date) (unknown) (unknown) Exam (units unknown) (unknown) (unknown) (no date) (unknown) (unknown) Family History (units unknown) (unknown) (unknown) (no date) (unknown) (unknown) Father Healthy adult (units unknown) (unknown) (unknown) (no date) (unknown) (unknown) Gastroparesis (units unknown) (unknown) (unknown) (no date) (unknown) (unknown) General: Patient is a well-developed, well-nourished in mild distress shaking (units unknown) (unknown) (unknown) (no date) (unknown) (unknown) Globulin 3.1 (units unknown) (unknown) (unknown) (no date) (unknown) (unknown) Globulin (units unknown) (unknown) (unknown) (no date) (unknown) (unknown) Glucose 92 (units unknown) (unknown) (unknown) (no date) (unknown) (unknown) Glucose (units unknown) (unknown) (unknown) (no date) (unknown) (unknown) HEENT: Normocephalic , atraumatic, extraocular muscles intact, oral pharynx is (units unknown) (unknown) (unknown) (no date) (unknown) (unknown) Hct 34.9 L (units unknown) (unknown) (unknown) (no date) (unknown) (unknown) Hct (units unknown) (unknown) (unknown) (no date) (unknown) (unknown) Hgb 11.4 L (units unknown) (unknown) (unknown) (no date) (unknown) (unknown) Hgb (units unknown) (unknown) (unknown) (no date) (unknown) (unknown) History + Physical Report (units unknown) (unknown) (unknown) (no date) (unknown) (unknown) History of Present Illness (units unknown) (unknown) (unknown) (no date) (unknown) (unknown) History (units unknown) (unknown) (unknown) (no date) (unknown) (unknown) Home Medications and Allergies (units unknown) (unknown) (unknown) (no date) (unknown) (unknown) Home Medications (units unknown) (unknown) (unknown) (no date) (unknown) (unknown) Hospital. (units unknown) (unknown) (unknown) (no date) (unknown) (unknown) I confirmed that the patient's advanced care plan is present, Code status is (units unknown) (unknown) (unknown) (no date) (unknown) (unknown) I have personally reviewed patient's chart notes from PCP, specialists, (units unknown) (unknown) (unknown) (no date) (unknown) (unknown) I have reviewed patient's recent endocrinology notes from [facility] (units unknown) (unknown) (unknown) (no date) (unknown) (unknown) I have utilized all available immediate resources to obtain, update, or review (units unknown) (unknown) (unknown) (no date) (unknown) (unknown) Insulin dependent diabetes mellitus (units unknown) (unknown) (unknown) (no date) (unknown) (unknown) [address] [address] (units unknown) (unknown) (unknown) (no date) (unknown) (unknown) Kaur Morris is 27-year-old female daily smoker (vaping), hx of marijuana daily (units unknown) (unknown) (unknown) (no date) (unknown) (unknown) Ketones 5.09 H (units unknown) (unknown) (unknown) (no date) (unknown) (unknown) Ketones (units unknown) (unknown) (unknown) (no date) (unknown) (unknown) Laboratory Results - last 24 hr (units unknown) (unknown) (unknown) (no date) (unknown) (unknown) Labs (units unknown) (unknown) (unknown) (no date) (unknown) (unknown) Labs: (units unknown) (unknown) (unknown) (no date) (unknown) (unknown) Lactate 2.3 H (units unknown) (unknown) (unknown) (no date) (unknown) (unknown) Lactate (units unknown) (unknown) (unknown) (no date) (unknown) (unknown) Lipase 24 (units unknown) (unknown) (unknown) (no date) (unknown) (unknown) Lipase (units unknown) (unknown) (unknown) (no date) (unknown) (unknown) Lungs: Auscultation of all lung hendricks are clear without adventitious sounds, (units unknown) (unknown) (unknown) (no date) (unknown) (unknown) Lymph # (Auto) 3200 (units unknown) (unknown) (unknown) (no date) (unknown) (unknown) Lymph # (Auto) (units unknown) (unknown) (unknown) (no date) (unknown) (unknown) Lymph % (Auto) 17.7 L (units unknown) (unknown) (unknown) (no date) (unknown) (unknown) Lymph % (Auto) (units unknown) (unknown) (unknown) (no date) (unknown) (unknown) MAP<70, BP <90/60, B P >180/105, Temp>102 (units unknown) (unknown) (unknown) (no date) (unknown) (unknown) MCH 25.5 L (units unknown) (unknown) (unknown) (no date) (unknown) (unknown) MCH (units unknown) (unknown) (unknown) (no date) (unknown) (unknown) MCHC 32.7 (units unknown) (unknown) (unknown) (no date) (unknown) (unknown) MCHC (units unknown) (unknown) (unknown) (no date) (unknown) (unknown) MCV 78.0 L (units unknown) (unknown) (unknown) (no date) (unknown) (unknown) MCV (units unknown) (unknown) (unknown) (no date) (unknown) (unknown) Magnesium 1.8 (units unknown) (unknown) (unknown) (no date) (unknown) (unknown) Magnesium (units unknown) (unknown) (unknown) (no date) (unknown) (unknown) Medical History (Updated 08/12/22 @ 02:17 by Gracia Smith [facility]) (units unknown) (unknown) (unknown) (no date) (unknown) (unknown) Medication Instructions Recorded Confirmed Type (units unknown) (unknown) (unknown) (no date) (unknown) (unknown) Meds (units unknown) (unknown) (unknown) (no date) (unknown) (unknown) Migraine headache with aura (units unknown) (unknown) (unknown) (no date) (unknown) (unknown) O'Brien # (Auto) 900 (units unknown) (unknown) (unknown) (no date) (unknown) (unknown) O'Brien # (Auto) (units unknown) (unknown) (unknown) (no date) (unknown) (unknown) O'Brien % (Auto) 4.8 (units unknown) (unknown) (unknown) (no date) (unknown) (unknown) O'Brien % (Auto) (units unknown) (unknown) (unknown) (no date) (unknown) (unknown) Mother Hypertension (units unknown) (unknown) (unknown) (no date) (unknown) (unknown) Musculoskeletal: Muscle strength and tone are equal within normal limits, no (units unknown) (unknown) (unknown) (no date) (unknown) (unknown) Myopia (units unknown) (unknown) (unknown) (no date) (unknown) (unknown) Narrative (units unknown) (unknown) (unknown) (no date) (unknown) (unknown) Narrative: (units unknown) (unknown) (unknown) (no date) (unknown) (unknown) Negative for JVD (units unknown) (unknown) (unknown) (no date) (unknown) (unknown) Neuro: Alert and orientated x3, strength is +5/5 in all extremities, sensation (units unknown) (unknown) (unknown) (no date) (unknown) (unknown) Neut # (Auto) 27773 H (units unknown) (unknown) (unknown) (no date) (unknown) (unknown) Neut # (Auto) (units unknown) (unknown) (unknown) (no date) (unknown) (unknown) Neut % (Auto) 77.4 H (units unknown) (unknown) (unknown) (no date) (unknown) (unknown) Neut % (Auto) (units unknown) (unknown) (unknown) (no date) (unknown) (unknown) Objective (units unknown) (unknown) (unknown) (no date) (unknown) (unknown) On admit patient denies chest pain, shortness in breath, headache, changes in (units unknown) (unknown) (unknown) (no date) (unknown) (unknown) Oxygen Delivery Method Room Air (units unknown) (unknown) (unknown) (no date) (unknown) (unknown) PFSH (units unknown) (unknown) (unknown) (no date) (unknown) (unknown) Pancreatitis (units unknown) (unknown) (unknown) (no date) (unknown) (unknown) Patient's urine was positive for UTI and urine cultures were collected yesterday (units unknown) (unknown) (unknown) (no date) (unknown) (unknown) Patient: Kaur Horton MR (units unknown) (unknown) (unknown) (no date) (unknown) (unknown) Phosphorus 3.1 (units unknown) (unknown) (unknown) (no date) (unknown) (unknown) Phosphorus (units unknown) (unknown) (unknown) (no date) (unknown) (unknown) Plt Count 317 (units unknown) (unknown) (unknown) (no date) (unknown) (unknown) Plt Count (units unknown) (unknown) (unknown) (no date) (unknown) (unknown) Potassium 3.3 L (units unknown) (unknown) (unknown) (no date) (unknown) (unknown) Potassium (units unknown) (unknown) (unknown) (no date) (unknown) (unknown) Procalcitonin 0.19 (units unknown) (unknown) (unknown) (no date) (unknown) (unknown) Procalcitonin (units unknown) (unknown) (unknown) (no date) (unknown) (unknown) [facility] ([facility]) (unknown) (no date) (unknown) (unknown) Psych: Patient has a well-kept appearance, appropriate affect, mental status (units unknown) (unknown) (unknown) (no date) (unknown) (unknown) Pulse Oximetry 99 98 (units unknown) (unknown) (unknown) (no date) (unknown) (unknown) Pulse Rate 123 H 85 (units unknown) (unknown) (unknown) (no date) (unknown) (unknown) RBC 4.47 (units unknown) (unknown) (unknown) (no date) (unknown) (unknown) RBC (units unknown) (unknown) (unknown) (no date) (unknown) (unknown) RDW 15.9 H (units unknown) (unknown) (unknown) (no date) (unknown) (unknown) RDW (units unknown) (unknown) (unknown) (no date) (unknown) (unknown) Respiratory Rate 24 16 (units unknown) (unknown) (unknown) (no date) (unknown) (unknown) Review of Systems (units unknown) (unknown) (unknown) (no date) (unknown) (unknown) SARS-CoV-2 (PCR) Negative (units unknown) (unknown) (unknown) (no date) (unknown) (unknown) SARS-CoV-2 (PCR) (units unknown) (unknown) (unknown) (no date) (unknown) (unknown) Serum , Sushil l Negative (units unknown) (unknown) (unknown) (no date) (unknown) (unknown) Serum , Qual (units unknown) (unknown) (unknown) (no date) (unknown) (unknown) Signed By:<Electronically signed by Gracia Smith> (units unknown) (unknown) (unknown) (no date) (unknown) (unknown) Skin: Warm dry and intact without rashes, ulcerations or petechiae. (units unknown) (unknown) (unknown) (no date) (unknown) (unknown) Smoking Status: Current every day smoker (units unknown) (unknown) (unknown) (no date) (unknown) (unknown) Social History (units unknown) (unknown) (unknown) (no date) (unknown) (unknown) Sodium 138 (units unknown) (unknown) (unknown) (no date) (unknown) (unknown) Sodium (units unknown) (unknown) (unknown) (no date) (unknown) (unknown) Status post appendectomy (units unknown) (unknown) (unknown) (no date) (unknown) (unknown) Surgical History (units unknown) (unknown) (unknown) (no date) (unknown) (unknown) Surrogate decision maker: Spouse Khoa (units unknown) (unknown) (unknown) (no date) (unknown) (unknown) Temperature 98.3 F (units unknown) (unknown) (unknown) (no date) (unknown) (unknown) Time Patient Seen: 01:17 (units unknown) (unknown) (unknown) (no date) (unknown) (unknown) Total Bilirubin 1.0 (units unknown) (unknown) (unknown) (no date) (unknown) (unknown) Total Bilirubin (units unknown) (unknown) (unknown) (no date) (unknown) (unknown) Total Protein 7.8 (units unknown) (unknown) (unknown) (no date) (unknown) (unknown) Total Protein (units unknown) (unknown) (unknown) (no date) (unknown) (unknown) U-100 Insulin aspart) (units unknown) (unknown) (unknown) (no date) (unknown) (unknown) UTI/pyelonephritis, with intractable nausea vomiting, acute, present on (units unknown) (unknown) (unknown) (no date) (unknown) (unknown) Vital Signs (units unknown) (unknown) (unknown) (no date) (unknown) (unknown) WBC 18.1 H (units unknown) (unknown) (unknown) (no date) (unknown) (unknown) WBC (units unknown) (unknown) (unknown) (no date) (unknown) (unknown) [Embedded Image Not Available] (units unknown) (unknown) (unknown) (no date) (unknown) (unknown) acidosis/sepsis due to pyelonephritis, expected length of stay greater than 2 (units unknown) (unknown) (unknown) (no date) (unknown) (unknown) admission (units unknown) (unknown) (unknown) (no date) (unknown) (unknown) admitted for lactic acidosis sepsis without shock, due to UTI/pyelonephritis. (units unknown) (unknown) (unknown) (no date) (unknown) (unknown) alcohol intake: never (units unknown) (unknown) (unknown) (no date) (unknown) (unknown) alter based on cultures (units unknown) (unknown) (unknown) (no date) (unknown) (unknown) antibiotics was unable to keep them down and failed oral challenge in ED. (units unknown) (unknown) (unknown) (no date) (unknown) (unknown) antibiotics/antiemet i cs was unable to fill them as the pharmacies were closed (units unknown) (unknown) (unknown) (no date) (unknown) (unknown) attitude thought context and judgment are appropriate for age. (units unknown) (unknown) (unknown) (no date) (unknown) (unknown) clear and mucous membranes are dry. Neck is supple and symmetric, trachea is (units unknown) (unknown) (unknown) (no date) (unknown) (unknown) complications in relation to acute illness/chronic illness. This increases the (units unknown) (unknown) (unknown) (no date) (unknown) (unknown) constipation, incontinence, melena, rashes, recent changes to medication, (units unknown) (unknown) (unknown) (no date) (unknown) (unknown) criteria, Anion Gap 20-monitor for septic shock/DKA (units unknown) (unknown) (unknown) (no date) (unknown) (unknown) deformity, crepitus, effusions, cyanosis, clubbing or edema present. Full range (units unknown) (unknown) (unknown) (no date) (unknown) (unknown) diagnostic imaging, and laboratory results. (units unknown) (unknown) (unknown) (no date) (unknown) (unknown) difficulty in complexity of medical management and increases the chances poor (units unknown) (unknown) (unknown) (no date) (unknown) (unknown) documented and/or surrogate decision maker is listed in the patient's medical (units unknown) (unknown) (unknown) (no date) (unknown) (unknown) documented. (units unknown) (unknown) (unknown) (no date) (unknown) (unknown) due to UTI/pyelonephritis, after failing outpatient management. (units unknown) (unknown) (unknown) (no date) (unknown) (unknown) exposure to illness, abdominal pain, nausea, vomiting, urinary (units unknown) (unknown) (unknown) (no date) (unknown) (unknown) for organomegaly, or masses. Bowel sounds are present in all 4 quadrants (units unknown) (unknown) (unknown) (no date) (unknown) (unknown) from ED, blood cultures obtained tonight-pending. COVID not ordered. Patient (units unknown) (unknown) (unknown) (no date) (unknown) (unknown) gastroparesis, chronic, present on admission (units unknown) (unknown) (unknown) (no date) (unknown) (unknown) household members: spouse (units unknown) (unknown) (unknown) (no date) (unknown) (unknown) illness, injury, or trauma. (units unknown) (unknown) (unknown) (no date) (unknown) (unknown) immune suppression. (units unknown) (unknown) (unknown) (no date) (unknown) (unknown) incontinence/retenti o n, dysuria, frequency, urgency, hematuria, bowel changes, (units unknown) (unknown) (unknown) (no date) (unknown) (unknown) insulin aspart U-100 100 unit/mL 56 SUBCUT DAILY 08/12/22 History (units unknown) (unknown) (unknown) (no date) (unknown) (unknown) insulin syringes (disposable) 1 mL #500 ea 08/04/20 02/07/22 Rx (units unknown) (unknown) (unknown) (no date) (unknown) (unknown) intake and nutrition. (units unknown) (unknown) (unknown) (no date) (unknown) (unknown) ketorolac [From Toradol] Allergy Verified 08/10/22 14:43 (units unknown) (unknown) (unknown) (no date) (unknown) (unknown) meets SIRS severe sepsis criteria, H+H 11.4/34.9, MCV 78, MCH 25.5. Hypokalemia (units unknown) (unknown) (unknown) (no date) (unknown) (unknown) metoclopramide HCl 5 mg/5 mL oral 5 mg PO Q8H PRN Nausea 08/12/22 08/12/22 (units unknown) (unknown) (unknown) (no date) (unknown) (unknown) mg-trimethoprim 160 mg tablet (units unknown) (unknown) (unknown) (no date) (unknown) (unknown) midline, no adenopathy, no thyroid enlargement, nontender, no masses palpated. (units unknown) (unknown) (unknown) (no date) (unknown) (unknown) midnights. (units unknown) (unknown) (unknown) (no date) (unknown) (unknown) no carotid bruit, no cardiac pulsations present. (units unknown) (unknown) (unknown) (no date) (unknown) (unknown) of motion intact radial and pedal pulses are normal. (units unknown) (unknown) (unknown) (no date) (unknown) (unknown) outcomes such as mortality and morbidity as well as impaired wound healing, and (units unknown) (unknown) (unknown) (no date) (unknown) (unknown) patient in ED had a BP of 123/77 but was tachycardic HR 111, tachypneic RR 21. (units unknown) (unknown) (unknown) (no date) (unknown) (unknown) potassium 3.3, bicar b 19, glucose 92, ketones 5.09, anion gap 20, not in DKA (units unknown) (unknown) (unknown) (no date) (unknown) (unknown) promethazine 12.5 mg tablet 25 mg PO BID PRN nausea and 08/12/22 08/12/22 (units unknown) (unknown) (unknown) (no date) (unknown) (unknown) promethazine 25 mg rectal 25 mg PA Q4-6H PRN Nausea And 01/27/22 08/12/22 (units unknown) (unknown) (unknown) (no date) (unknown) (unknown) record. (units unknown) (unknown) (unknown) (no date) (unknown) (unknown) return to the ED thi s morning was treated once again discharged home returned (units unknown) (unknown) (unknown) (no date) (unknown) (unknown) saturation 99% on room air WBC 18.1, neutrophils 14,000, lactate 2.3 patient (units unknown) (unknown) (unknown) (no date) (unknown) (unknown) solution (units unknown) (unknown) (unknown) (no date) (unknown) (unknown) subcutaneous solutio n (Novolog (units unknown) (unknown) (unknown) (no date) (unknown) (unknown) sulfamethoxazole 800 1 tab PO Q12H 10 days #20 tabs 08/11/22 08/12/22 Rx (units unknown) (unknown) (unknown) (no date) (unknown) (unknown) suppositories, IV Zofran (units unknown) (unknown) (unknown) (no date) (unknown) (unknown) suppository ([facility]) Vomiting (units unknown) (unknown) (unknown) (no date) (unknown) (unknown) tachypneic (units unknown) (unknown) (unknown) (no date) (unknown) (unknown) that the pt can overcome, in no respiratory distress at this time. (units unknown) (unknown) (unknown) (no date) (unknown) (unknown) the ED returning for the 3rd time this evening with intractable nausea and (units unknown) (unknown) (unknown) (no date) (unknown) (unknown) the ED yesterday for nausea vomiting with UTI, was given prescription for (units unknown) (unknown) (unknown) (no date) (unknown) (unknown) the patient's curren t medications. (units unknown) (unknown) (unknown) (no date) (unknown) (unknown) this evening with intractable nausea and vomiting after picking up her (units unknown) (unknown) (unknown) (no date) (unknown) (unknown) to touch intact, no gross deficits noted of cranial nerves. (units unknown) (unknown) (unknown) (no date) (unknown) (unknown) type 1 diabetes, wit h peripheral neuropathy and gastroparesis who presented to (units unknown) (unknown) (unknown) (no date) (unknown) (unknown) use, cannabis hyperemesis syndrome, cyclic vomiting syndrome, GERD, migraines, (units unknown) (unknown) (unknown) (no date) (unknown) (unknown) vision, difficulty swallowing, speech impairment, numbness, tingling, difficulty (units unknown) (unknown) (unknown) (no date) (unknown) (unknown) vomiting from UTI. Patient admitted for lactic acidosis sepsis without shock, (units unknown) (unknown) (unknown) (no date) (unknown) (unknown) vomiting (units unknown) (unknown) (unknown) (no date) (unknown) (unknown) wears an insulin pum p was discontinued per hospital policy. (units unknown) (unknown) (unknown) (no date) (unknown) (unknown) wheezes, rhonchi, or rales. (units unknown) (unknown) (unknown) (no date) (unknown) (unknown) with ambulation, recent falls, head injury, LOC, fever, chills, cough, recent (units unknown) (unknown) (unknown) (no date) (unknown) (unknown) without guarding or rebound, positive CVA tenderness. (units unknown) (unknown) Result panel 1621 (unknown) (no date) (unknown) (unknown) 0.34 uiu/ml (unknown) Result panel 1622 (unknown) (no date) (unknown) (unknown) > 60 ml/min (unknown) (unknown) (no date) (unknown) (unknown) > 60 ml/min (unknown) (unknown) (no date) (unknown) (unknown) 0.50 mg/dl (unknown) (unknown) (no date) (unknown) (unknown) 0.7 mmol/l (unknown) (unknown) (no date) (unknown) (unknown) 104 mmol/l (unknown) (unknown) (no date) (unknown) (unknown) 11 mg/dl (unknown) (unknown) (no date) (unknown) (unknown) 136 mmol/l (unknown) (unknown) (no date) (unknown) (unknown) 2.8 mmol/l (unknown) (unknown) (no date) (unknown) (unknown) 20 mmol/l (unknown) (unknown) (no date) (unknown) (unknown) 22.0 (units unknown) (unknown) (unknown) (no date) (unknown) (unknown) 7.1 mg/dl (unknown) (unknown) (no date) (unknown) (unknown) 91 mg/dl (unknown) (unknown) (no date) (unknown) (unknown) 91 mg/dl (unknown) Result panel 1623 (unknown) (no date) (unknown) (unknown) 1.6 mg/dl (unknown) (unknown) (no date) (unknown) (unknown) 38 u/l (unknown) Result panel 1624 (unknown) (no date) (unknown) (unknown) 0 /ul (unknown) (unknown) (no date) (unknown) (unknown) 0 /ul (unknown) (unknown) (no date) (unknown) (unknown) 0.0 % (unknown) (unknown) (no date) (unknown) (unknown) 0.2 % (unknown) (unknown) (no date) (unknown) (unknown) 12.2 x10 3/ul (unknown) (unknown) (no date) (unknown) (unknown) 15.5 % (unknown) (unknown) (no date) (unknown) (unknown) 17.3 % (unknown) (unknown) (no date) (unknown) (unknown) 2100 /ul (unknown) (unknown) (no date) (unknown) (unknown) 234 x10 3/ul (unknown) (unknown) (no date) (unknown) (unknown) 25.6 pg (unknown) (unknown) (no date) (unknown) (unknown) 27.4 % (unknown) (unknown) (no date) (unknown) (unknown) 3.54 x10 6/ul (unknown) (unknown) (no date) (unknown) (unknown) 33.1 % (unknown) (unknown) (no date) (unknown) (unknown) 4.8 % (unknown) (unknown) (no date) (unknown) (unknown) 600 /ul (unknown) (unknown) (no date) (unknown) (unknown) 77.4 fl (unknown) (unknown) (no date) (unknown) (unknown) 77.7 % (unknown) (unknown) (no date) (unknown) (unknown) 9.1 g/dl (unknown) (unknown) (no date) (unknown) (unknown) 9500 /ul (unknown) Result panel 1625 (unknown) (no date) (unknown) (unknown) 0.34 uiu/ml (unknown) (unknown) (no date) (unknown) (unknown) 1.91 ng/dl (unknown) Result panel 1626 (unknown) (no date) (unknown) (unknown) > 60 ml/min (unknown) (unknown) (no date) (unknown) (unknown) > 60 ml/min (unknown) (unknown) (no date) (unknown) (unknown) 0.51 mg/dl (unknown) (unknown) (no date) (unknown) (unknown) 0.6 mg/dl (unknown) (unknown) (no date) (unknown) (unknown) 1.5 (units unknown) (unknown) (unknown) (no date) (unknown) (unknown) 104 mmol/l (unknown) (unknown) (no date) (unknown) (unknown) 12 mg/dl (unknown) (unknown) (no date) (unknown) (unknown) 13 mmol/l (unknown) (unknown) (no date) (unknown) (unknown) 135 mmol/l (unknown) (unknown) (no date) (unknown) (unknown) 14 iu/l (unknown) (unknown) (no date) (unknown) (unknown) 2.5 g/dl (unknown) (unknown) (no date) (unknown) (unknown) 217 mg/dl (unknown) (unknown) (no date) (unknown) (unknown) 217 mg/dl (unknown) (unknown) (no date) (unknown) (unknown) 23.5 (units unknown) (unknown) (unknown) (no date) (unknown) (unknown) 25 iu/l (unknown) (unknown) (no date) (unknown) (unknown) 3.4 mmol/l (unknown) (unknown) (no date) (unknown) (unknown) 3.8 g/dl (unknown) (unknown) (no date) (unknown) (unknown) 6.3 g/dl (unknown) (unknown) (no date) (unknown) (unknown) 7.4 mg/dl (unknown) (unknown) (no date) (unknown) (unknown) 99 u/l (unknown) Result panel 1627 (unknown) (no date) (unknown) (unknown) 440 mosmol/kg 2695-5 (unknown) (no date) (unknown) (unknown) 440 mosmol/kg (unknown) Result panel 1628 (unknown) (no date) (unknown) (unknown) >100,000 cfu/ml (unknown) (unknown) (no date) (unknown) (unknown) <=0.25 (units unknown) (unknown) (unknown) (no date) (unknown) (unknown) <=0.5 (units unknown) (unknown) (unknown) (no date) (unknown) (unknown) <=1 (units unknown) (unknown) (unknown) (no date) (unknown) (unknown) <=16 (units unknown) (unknown) (unknown) (no date) (unknown) (unknown) <=2 (units unknown) (unknown) (unknown) (no date) (unknown) (unknown) <=20 (units unknown) (unknown) (unknown) (no date) (unknown) (unknown) <=4 (units unknown) (unknown) (unknown) (no date) (unknown) (unknown) 1 (units unknown) (unknown) (unknown) (no date) (unknown) (unknown) 4 (units unknown) (unknown) (unknown) (no date) (unknown) (unknown) ESCCOLEscherichia coli (units unknown) (unknown) (unknown) (no date) (unknown) (unknown) No Further Workup (units unknown) (unknown) Result panel 1629 (unknown) (no date) (unknown) (unknown) (no value) (units unknown) (unknown) (unknown) (no date) (unknown) (unknown) #: [id number] (units unknown) (unknown) (unknown) (no date) (unknown) (unknown) <Electronically signed by Lis ChapaOFozia> (units unknown) (unknown) (unknown) (no date) (unknown) (unknown) <Electronically signed by Eduard RitchieOFozia> (units unknown) (unknown) (unknown) (no date) (unknown) (unknown) <Electronically signed by Franc Hutchinson> (units unknown) (unknown) (unknown) (no date) (unknown) (unknown) <Lis Chinchilla DO - Last Filed: 08/12/22 07:11> (units unknown) (unknown) (unknown) (no date) (unknown) (unknown) <Franc Hutchinson PA-C - Last Filed: 08/11/22 18:23> (units unknown) (unknown) (unknown) (no date) (unknown) (unknown) <cosigner> (units unknown) (unknown) (unknown) (no date) (unknown) (unknown) (Bactrim DS) (units unknown) (unknown) (unknown) (no date) (unknown) (unknown) (DME) insulin syringes (disposable) 1 mL syringe (units unknown) (unknown) (unknown) (no date) (unknown) (unknown) (please see below fo r record review) but did not picking tech her medications. She (units unknown) (unknown) (unknown) (no date) (unknown) (unknown) * Clinical Decision Rules/Scores evaluated: None (units unknown) (unknown) (unknown) (no date) (unknown) (unknown) * Independent discussions with: None (units unknown) (unknown) (unknown) (no date) (unknown) (unknown) * My imgaing interpretation: None obtained (units unknown) (unknown) (unknown) (no date) (unknown) (unknown) * My lab interpretation: None obtained (units unknown) (unknown) (unknown) (no date) (unknown) (unknown) * Prior records reviewed: Patient was seen here yesterday for a complex UTI. (units unknown) (unknown) (unknown) (no date) (unknown) (unknown) * differential diagnosis includes but not limited to pancreatitis, (units unknown) (unknown) (unknown) (no date) (unknown) (unknown) 08/11/22 14:25 (units unknown) (unknown) (unknown) (no date) (unknown) (unknown) 08/11/22 1823 (units unknown) (unknown) (unknown) (no date) (unknown) (unknown) 08/11/22 Range/Units (units unknown) (unknown) (unknown) (no date) (unknown) (unknown) 08/11/22 (units unknown) (unknown) (unknown) (no date) (unknown) (unknown) 08/12/22 0711 (units unknown) (unknown) (unknown) (no date) (unknown) (unknown) 1 tab PO Q12H 10 Day s Qty: 20 0RF (units unknown) (unknown) (unknown) (no date) (unknown) (unknown) 12 point review of systems is negative except for those stated above (units unknown) (unknown) (unknown) (no date) (unknown) (unknown) 13:46 04/23/23 (units unknown) (unknown) (unknown) (no date) (unknown) (unknown) 13:46 (units unknown) (unknown) (unknown) (no date) (unknown) (unknown) 13:53 08/11/22 (units unknown) (unknown) (unknown) (no date) (unknown) (unknown) 14:25 (units unknown) (unknown) (unknown) (no date) (unknown) (unknown) 15:26 (units unknown) (unknown) (unknown) (no date) (unknown) (unknown) 25 mg PO BID PRN (Reason: nausea and vomiting) (units unknown) (unknown) (unknown) (no date) (unknown) (unknown) 25 mg PA Q4-6H PRN (Reason: Nausea And Vomiting) (units unknown) (unknown) (unknown) (no date) (unknown) (unknown) 5 mg PO Q8H PRN (Reason: Nausea) (units unknown) (unknown) (unknown) (no date) (unknown) (unknown) 56 SUBCUT DAILY (units unknown) (unknown) (unknown) (no date) (unknown) (unknown) Activity Restrictions/Addition al Instructions: (units unknown) (unknown) (unknown) (no date) (unknown) (unknown) Age/Sex: 27 / F (units unknown) (unknown) (unknown) (no date) (unknown) (unknown) Allergies (units unknown) (unknown) (unknown) (no date) (unknown) (unknown) Allergy/AdvReac Type Severity Reaction Status Date / Time (units unknown) (unknown) (unknown) (no date) (unknown) (unknown) Anemia (units unknown) (unknown) (unknown) (no date) (unknown) (unknown) As directed for use with insulin injections (units unknown) (unknown) (unknown) (no date) (unknown) (unknown) BACK: Nontender without deformity or crepitance. No flank tenderness. (units unknown) (unknown) (unknown) (no date) (unknown) (unknown) Bedside Urine Bilirubin - Negative (units unknown) (unknown) (unknown) (no date) (unknown) (unknown) Bedside Urine Glucos e Negative (units unknown) (unknown) (unknown) (no date) (unknown) (unknown) Bedside Urine Ketone +++ 80 (units unknown) (unknown) (unknown) (no date) (unknown) (unknown) Bedside Urine Leukocytes - Negative (units unknown) (unknown) (unknown) (no date) (unknown) (unknown) Bedside Urine Nitrit e - Negative (units unknown) (unknown) (unknown) (no date) (unknown) (unknown) Bedside Urine Occult Blood +/ (units unknown) (unknown) (unknown) (no date) (unknown) (unknown) Bedside Urine Protei n + 30 (units unknown) (unknown) (unknown) (no date) (unknown) (unknown) Bedside Urine Urobilinogen - Negative (units unknown) (unknown) (unknown) (no date) (unknown) (unknown) Bedside Urine pH 6.0 (units unknown) (unknown) (unknown) (no date) (unknown) (unknown) Blood Pressure 123/7 7 08/11/22 13:46 (units unknown) (unknown) (unknown) (no date) (unknown) (unknown) Blood Pressure 123/7 7 123/77 (units unknown) (unknown) (unknown) (no date) (unknown) (unknown) Blood Pressure 95/54 L (units unknown) (unknown) (unknown) (no date) (unknown) (unknown) CARDIOVASCULAR: Denies chest pain, palpitations, orthopnea, edema, (units unknown) (unknown) (unknown) (no date) (unknown) (unknown) CARDIOVASCULAR: Regular rate and rhythm without murmurs, gallops, or rubs. (units unknown) (unknown) (unknown) (no date) (unknown) (unknown) Cannabis hyperemesis syndrome concurrent with and due to cannabis dependence (units unknown) (unknown) (unknown) (no date) (unknown) (unknown) Chief complaint: Urogenital-Female (units unknown) (unknown) (unknown) (no date) (unknown) (unknown) Clinical Impression: (units unknown) (unknown) (unknown) (no date) (unknown) (unknown) Cosign (units unknown) (unknown) (unknown) (no date) (unknown) (unknown) Course (units unknown) (unknown) (unknown) (no date) (unknown) (unknown) Cyclic vomiting syndrome (units unknown) (unknown) (unknown) (no date) (unknown) (unknown) DKA (diabetic ketoacidoses) (units unknown) (unknown) (unknown) (no date) (unknown) (unknown) : 1995 Acct:[id number] (units unknown) (unknown) (unknown) (no date) (unknown) (unknown) Date of Service: 08/11/22 (units unknown) (unknown) (unknown) (no date) (unknown) (unknown) Departure (units unknown) (unknown) (unknown) (no date) (unknown) (unknown) Diabetes mellitus, type I (units unknown) (unknown) (unknown) (no date) (unknown) (unknown) Discharge Plan (units unknown) (unknown) (unknown) (no date) (unknown) (unknown) Disposition: Discharged to home (units unknown) (unknown) (unknown) (no date) (unknown) (unknown) ED Attending Cosignature Attestation: (units unknown) (unknown) (unknown) (no date) (unknown) (unknown) ED Course: This is a 27-year-old female presents emergency department after (units unknown) (unknown) (unknown) (no date) (unknown) (unknown) ED Orders (units unknown) (unknown) (unknown) (no date) (unknown) (unknown) ENT: Nose without bleeding, purulent drainage. Throat without erythema, (units unknown) (unknown) (unknown) (no date) (unknown) (unknown) ER Physician: Franc Hutchinson P.A-C (units unknown) (unknown) (unknown) (no date) (unknown) (unknown) EXTREMITIES: No dulce a or joint tenderness. (units unknown) (unknown) (unknown) (no date) (unknown) (unknown) EYES: Pupils equal round and reactive. Extraocular motions intact. No scleral (units unknown) (unknown) (unknown) (no date) (unknown) (unknown) Emergency Report (units unknown) (unknown) (unknown) (no date) (unknown) (unknown) Esterase (units unknown) (unknown) (unknown) (no date) (unknown) (unknown) Exam Narrative: (units unknown) (unknown) (unknown) (no date) (unknown) (unknown) Exam (units unknown) (unknown) (unknown) (no date) (unknown) (unknown) Family History (units unknown) (unknown) (unknown) (no date) (unknown) (unknown) Father Healthy adult (units unknown) (unknown) (unknown) (no date) (unknown) (unknown) GASTROINTESTINAL: Abdomen soft, mild epigastric tenderness to palpation, (units unknown) (unknown) (unknown) (no date) (unknown) (unknown) GASTROINTESTINAL: Reports nausea and vomiting,, abdominal pain, denies (units unknown) (unknown) (unknown) (no date) (unknown) (unknown) GENERAL: Denies chills, fatigue, malaise, fever, sweats. (units unknown) (unknown) (unknown) (no date) (unknown) (unknown) GENERAL: Well-developed patient, in mild distress. (units unknown) (unknown) (unknown) (no date) (unknown) (unknown) : Reports dysuria, denies, frequency, incontinence, hematuria, urinary (units unknown) (unknown) (unknown) (no date) (unknown) (unknown) Gastroparesis (units unknown) (unknown) (unknown) (no date) (unknown) (unknown) General (units unknown) (unknown) (unknown) (no date) (unknown) (unknown) HEAD: Atraumatic. Normocephalic. (units unknown) (unknown) (unknown) (no date) (unknown) (unknown) HEENT: Denies sinus pain, ear pain, sore throat, difficulty swallowing, (units unknown) (unknown) (unknown) (no date) (unknown) (unknown) HPI - Female Genitourinary (units unknown) (unknown) (unknown) (no date) (unknown) (unknown) HPI Narrative: (units unknown) (unknown) (unknown) (no date) (unknown) (unknown) History of Present Illness (units unknown) (unknown) (unknown) (no date) (unknown) (unknown) History of type 1 diabetes, cyclic vomiting syndrome, gastroparesis, DKA, (units unknown) (unknown) (unknown) (no date) (unknown) (unknown) Home Medications (units unknown) (unknown) (unknown) (no date) (unknown) (unknown) Delonte Trevino MD [Primary Care Provider] (units unknown) (unknown) (unknown) (no date) (unknown) (unknown) I hope you feel better soon. (units unknown) (unknown) (unknown) (no date) (unknown) (unknown) I was immediately available in the department for consultation. Documentation (units unknown) (unknown) (unknown) (no date) (unknown) (unknown) Initial Vital Signs (units unknown) (unknown) (unknown) (no date) (unknown) (unknown) Initial Vital Signs: (units unknown) (unknown) (unknown) (no date) (unknown) (unknown) Insulin dependent diabetes mellitus (units unknown) (unknown) (unknown) (no date) (unknown) (unknown) [address] [address] (units unknown) (unknown) (unknown) (no date) (unknown) (unknown) Lab Data (units unknown) (unknown) (unknown) (no date) (unknown) (unknown) Lab Results (units unknown) (unknown) (unknown) (no date) (unknown) (unknown) Labs: (units unknown) (unknown) (unknown) (no date) (unknown) (unknown) MDM - Female Genitourinary (units unknown) (unknown) (unknown) (no date) (unknown) (unknown) MDM Narrative (units unknown) (unknown) (unknown) (no date) (unknown) (unknown) MDM (units unknown) (unknown) (unknown) (no date) (unknown) (unknown) MUSCULOSKELETAL: denies weakness, joint pain, or bony pain (units unknown) (unknown) (unknown) (no date) (unknown) (unknown) Medical History (Updated 08/12/22 @ 02:17 by COLTON Leggett) (units unknown) (unknown) (unknown) (no date) (unknown) (unknown) Medical decision making narrative: (units unknown) (unknown) (unknown) (no date) (unknown) (unknown) Medication Instructions Recorded Confirmed (units unknown) (unknown) (unknown) (no date) (unknown) (unknown) Medication Instructions Recorded (units unknown) (unknown) (unknown) (no date) (unknown) (unknown) Migraine headache with aura (units unknown) (unknown) (unknown) (no date) (unknown) (unknown) Mode of arrival: Ambulatory (units unknown) (unknown) (unknown) (no date) (unknown) (unknown) Mother Hypertension (units unknown) (unknown) (unknown) (no date) (unknown) (unknown) Myopia (units unknown) (unknown) (unknown) (no date) (unknown) (unknown) NAUSEA OR VOMITING (units unknown) (unknown) (unknown) (no date) (unknown) (unknown) NECK: Trachea midline. Non tender (units unknown) (unknown) (unknown) (no date) (unknown) (unknown) NEURO: AOx3. (units unknown) (unknown) (unknown) (no date) (unknown) (unknown) NEUROLOGIC: Denies weakness, headache, numbness, change in speech, confusion, (units unknown) (unknown) (unknown) (no date) (unknown) (unknown) Narrative (units unknown) (unknown) (unknown) (no date) (unknown) (unknown) Narrative: (units unknown) (unknown) (unknown) (no date) (unknown) (unknown) New (units unknown) (unknown) (unknown) (no date) (unknown) (unknown) No Action (units unknown) (unknown) (unknown) (no date) (unknown) (unknown) Ordered: (units unknown) (unknown) (unknown) (no date) (unknown) (unknown) Orders (units unknown) (unknown) (unknown) (no date) (unknown) (unknown) Oxygen Delivery Method Room Air (units unknown) (unknown) (unknown) (no date) (unknown) (unknown) Oxygen Delivery Method (units unknown) (unknown) (unknown) (no date) (unknown) (unknown) PSYCHIATRIC: No concerning psychosocial issues. (units unknown) (unknown) (unknown) (no date) (unknown) (unknown) Pancreatitis (units unknown) (unknown) (unknown) (no date) (unknown) (unknown) Patient Comments: (units unknown) (unknown) (unknown) (no date) (unknown) (unknown) Patient Disposition: Home (units unknown) (unknown) (unknown) (no date) (unknown) (unknown) Patient History (units unknown) (unknown) (unknown) (no date) (unknown) (unknown) Patient was seen her e yesterday for a complex UTI. History of type 1 diabetes, (units unknown) (unknown) (unknown) (no date) (unknown) (unknown) Patient: Romeo Gueta,Kaur A MR (units unknown) (unknown) (unknown) (no date) (unknown) (unknown) Point of Care Testing (units unknown) (unknown) (unknown) (no date) (unknown) (unknown) Test Results Negative (units unknown) (unknown) (unknown) (no date) (unknown) (unknown) Prescriptions: (units unknown) (unknown) (unknown) (no date) (unknown) (unknown) Previous Rx's (units unknown) (unknown) (unknown) (no date) (unknown) (unknown) Pulse Oximetry 100 99 (units unknown) (unknown) (unknown) (no date) (unknown) (unknown) Pulse Oximetry 97 (units unknown) (unknown) (unknown) (no date) (unknown) (unknown) Pulse Oximetry 99 08/11/22 13:46 (units unknown) (unknown) (unknown) (no date) (unknown) (unknown) Pulse Rate 108 H 08/11/22 13:46 (units unknown) (unknown) (unknown) (no date) (unknown) (unknown) Pulse Rate 111 H 108 H (units unknown) (unknown) (unknown) (no date) (unknown) (unknown) Pulse Rate 80 (units unknown) (unknown) (unknown) (no date) (unknown) (unknown) RESPIRATORY: Clear t o auscultation. Breath sounds equal bilaterally. No wheezes, (units unknown) (unknown) (unknown) (no date) (unknown) (unknown) RESPIRATORY: Denies dyspnea, cough, wheezing, hemoptysis, sputum. (units unknown) (unknown) (unknown) (no date) (unknown) (unknown) Referrals: (units unknown) (unknown) (unknown) (no date) (unknown) (unknown) Related Data (units unknown) (unknown) (unknown) (no date) (unknown) (unknown) Respiratory Rate 16 (units unknown) (unknown) (unknown) (no date) (unknown) (unknown) Respiratory Rate 20 (units unknown) (unknown) (unknown) (no date) (unknown) (unknown) Review of Systems (units unknown) (unknown) (unknown) (no date) (unknown) (unknown) Rx Instructions: (units unknown) (unknown) (unknown) (no date) (unknown) (unknown) SKIN: Denies rash, skin lesions, or other (units unknown) (unknown) (unknown) (no date) (unknown) (unknown) SKIN: No rash or erythema of visible areas (units unknown) (unknown) (unknown) (no date) (unknown) (unknown) See Rx Instructions .ROUTE .MEDSUPPLY Qty: 500 1RF (units unknown) (unknown) (unknown) (no date) (unknown) (unknown) Seems like these hav e helped with the nausea and I recommend you continue taking (units unknown) (unknown) (unknown) (no date) (unknown) (unknown) Shared Decision Making: Discussed plan with the patient who is comfortable with (units unknown) (unknown) (unknown) (no date) (unknown) (unknown) Signed By: (units unknown) (unknown) (unknown) (no date) (unknown) (unknown) Social Considerations: None (units unknown) (unknown) (unknown) (no date) (unknown) (unknown) Source: patient (units unknown) (unknown) (unknown) (no date) (unknown) (unknown) Stand Alone Forms: Patient Portal/API (units unknown) (unknown) (unknown) (no date) (unknown) (unknown) Stated complaint: wa s here T-1/symptoms worsening (units unknown) (unknown) (unknown) (no date) (unknown) (unknown) Status post appendectomy (units unknown) (unknown) (unknown) (no date) (unknown) (unknown) Substance Use Type: marijuana (units unknown) (unknown) (unknown) (no date) (unknown) (unknown) Surgical History (units unknown) (unknown) (unknown) (no date) (unknown) (unknown) Temperature 97.5 F L (units unknown) (unknown) (unknown) (no date) (unknown) (unknown) Temperature (units unknown) (unknown) (unknown) (no date) (unknown) (unknown) Thank you for coming to the [facility] today. Please (units unknown) (unknown) (unknown) (no date) (unknown) (unknown) This is a 27-year-ol d female presents emergency department due to an episode of (units unknown) (unknown) (unknown) (no date) (unknown) (unknown) Time Seen by Provider: 08/11/22 13:24 (units unknown) (unknown) (unknown) (no date) (unknown) (unknown) U-100 Insulin aspart) (units unknown) (unknown) (unknown) (no date) (unknown) (unknown) UNWRAP AND INSERT 1 SUPPOSITORY RECTALLY EVERY 4 TO 6 HOURS NEEDED FOR (units unknown) (unknown) (unknown) (no date) (unknown) (unknown) Ur Culture Indicated ? Specimen cultured (units unknown) (unknown) (unknown) (no date) (unknown) (unknown) Ur Squamous Epith Cells 5-10 /hpf H (0-5/HPF) (units unknown) (unknown) (unknown) (no date) (unknown) (unknown) Urinary tract infection, Vomiting (units unknown) (unknown) (unknown) (no date) (unknown) (unknown) Urine Bacteria Many (>30) H (None) (units unknown) (unknown) (unknown) (no date) (unknown) (unknown) Urine Culture Stat (units unknown) (unknown) (unknown) (no date) (unknown) (unknown) Urine Dip (units unknown) (unknown) (unknown) (no date) (unknown) (unknown) Urine Microscopic Stat (units unknown) (unknown) (unknown) (no date) (unknown) (unknown) Urine RBC 1-5/hpf (0-5/HPF) (units unknown) (unknown) (unknown) (no date) (unknown) (unknown) Urine Specific [place] 1.025 (units unknown) (unknown) (unknown) (no date) (unknown) (unknown) Urine WBC 5-10/hpf H (0-5/HPF) (units unknown) (unknown) (unknown) (no date) (unknown) (unknown) Vital Signs - 8 hr (units unknown) (unknown) (unknown) (no date) (unknown) (unknown) Vital Signs (units unknown) (unknown) (unknown) (no date) (unknown) (unknown) Vital signs: (units unknown) (unknown) (unknown) (no date) (unknown) (unknown) Was advised to take her insulin 4 units for blood sugar of 332. Patient was (units unknown) (unknown) (unknown) (no date) (unknown) (unknown) alcohol intake frequency: holidays/special occasions only (units unknown) (unknown) (unknown) (no date) (unknown) (unknown) appendectomy, pancreatitis. Was seen yesterday for intractable vomiting with (units unknown) (unknown) (unknown) (no date) (unknown) (unknown) being seen yesterday , please see record review above,. She is reporting today (units unknown) (unknown) (unknown) (no date) (unknown) (unknown) blood glucose monitor. Was advised to take her insulin 4 units for blood sugar (units unknown) (unknown) (unknown) (no date) (unknown) (unknown) burning in her abdomen similar to previously. No new symptoms. (units unknown) (unknown) (unknown) (no date) (unknown) (unknown) cyclic vomiting syndrome, gastroparesis, DKA, appendectomy, pancreatitis. Was (units unknown) (unknown) (unknown) (no date) (unknown) (unknown) diarrhea, constipation, melena. (units unknown) (unknown) (unknown) (no date) (unknown) (unknown) dizziness. (units unknown) (unknown) (unknown) (no date) (unknown) (unknown) during an episode of vomiting. She states that her nausea med to help test (units unknown) (unknown) (unknown) (no date) (unknown) (unknown) for urine glucose, ketones, occult blood, nitrites. Patient has a personal (units unknown) (unknown) (unknown) (no date) (unknown) (unknown) gastroenteritis, UTI , sick vomiting (units unknown) (unknown) (unknown) (no date) (unknown) (unknown) growing staph lugdunensis. Patient was discharged with prescriptions for (units unknown) (unknown) (unknown) (no date) (unknown) (unknown) has been reviewed. (units unknown) (unknown) (unknown) (no date) (unknown) (unknown) his the pharmacy was closed. IV prescribed the medications to a [facility] here (units unknown) (unknown) (unknown) (no date) (unknown) (unknown) icterus. No injectio n or drainage. 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 Patient's exam (units unknown) (unknown) (unknown) (no date) (unknown) (unknown) insulin aspart U-100 100 unit/mL 56 SUBCUT DAILY 08/12/22 (units unknown) (unknown) (unknown) (no date) (unknown) (unknown) insulin aspart U-100 [Novolog U-100 Insulin aspart] 100 unit/mL solution (units unknown) (unknown) (unknown) (no date) (unknown) (unknown) insulin syringes (disposable) 1 mL #500 ea 08/04/20 (units unknown) (unknown) (unknown) (no date) (unknown) (unknown) ketones, occult blood, nitrites. Patient has a personal blood glucose monitor. (units unknown) (unknown) (unknown) (no date) (unknown) (unknown) ketorolac [From Toradol] Allergy Verified 08/10/22 14:43 (units unknown) (unknown) (unknown) (no date) (unknown) (unknown) medication as well a s her antibiotics. She stated that she would not picking tech (units unknown) (unknown) (unknown) (no date) (unknown) (unknown) metoclopramide HCl 5 mg/5 mL oral 5 mg PO Q8H PRN Nausea 08/12/22 08/12/22 (units unknown) (unknown) (unknown) (no date) (unknown) (unknown) metoclopramide HCl 5 mg/5 mL solution (units unknown) (unknown) (unknown) (no date) (unknown) (unknown) mg-trimethoprim 160 mg tablet (units unknown) (unknown) (unknown) (no date) (unknown) (unknown) nausea. Patient was given ondansetron, diazepam, Dilaudid, normal saline, (units unknown) (unknown) (unknown) (no date) (unknown) (unknown) night but she would not take any this morning. I reinforced that she should (units unknown) (unknown) (unknown) (no date) (unknown) (unknown) nondistended. (units unknown) (unknown) (unknown) (no date) (unknown) (unknown) of 332. Patient was treated with ceftriaxone and Bactrim due to her most recent (units unknown) (unknown) (unknown) (no date) (unknown) (unknown) ondansetron, diazepam, Dilaudid, normal saline, thiamine, Rocephin, Reglan, (units unknown) (unknown) (unknown) (no date) (unknown) (unknown) pantoprazole, Bactrim. White count was 20. Lactate was 2.8. Repeat lab work (units unknown) (unknown) (unknown) (no date) (unknown) (unknown) per pump (units unknown) (unknown) (unknown) (no date) (unknown) (unknown) picking tech her medications that she was prescribed yesterday for her nausea (units unknown) (unknown) (unknown) (no date) (unknown) (unknown) picking tech the nausea medications and antibiotics prescribed yesterday. I have (units unknown) (unknown) (unknown) (no date) (unknown) (unknown) prescribed to her yesterday. (units unknown) (unknown) (unknown) (no date) (unknown) (unknown) prescriptions for promethazine and Bactrim. (units unknown) (unknown) (unknown) (no date) (unknown) (unknown) promethazine 12.5 mg tablet 25 mg PO BID PRN nausea and 08/12/22 08/12/22 (units unknown) (unknown) (unknown) (no date) (unknown) (unknown) promethazine 12.5 mg tablet (units unknown) (unknown) (unknown) (no date) (unknown) (unknown) promethazine 25 mg rectal 25 mg PA Q4-6H PRN Nausea And 01/27/22 08/12/22 (units unknown) (unknown) (unknown) (no date) (unknown) (unknown) promethazine [Promethegan] 25 mg suppository (units unknown) (unknown) (unknown) (no date) (unknown) (unknown) promethazine and Bactrim. (units unknown) (unknown) (unknown) (no date) (unknown) (unknown) rales, or rhonchi. (units unknown) (unknown) (unknown) (no date) (unknown) (unknown) represcribed them to the [facility] here in [place] which should be open. (units unknown) (unknown) (unknown) (no date) (unknown) (unknown) retention. (units unknown) (unknown) (unknown) (no date) (unknown) (unknown) seen yesterday for intractable vomiting with nausea. Patient was given (units unknown) (unknown) (unknown) (no date) (unknown) (unknown) seizures, incoordination. (units unknown) (unknown) (unknown) (no date) (unknown) (unknown) she woke up this morning and had episode of vomiting. She also reports some (units unknown) (unknown) (unknown) (no date) (unknown) (unknown) solution (units unknown) (unknown) (unknown) (no date) (unknown) (unknown) states that the nausea medication she took last night helped with the nausea but (units unknown) (unknown) (unknown) (no date) (unknown) (unknown) subcutaneous solutio n (Novolog (units unknown) (unknown) (unknown) (no date) (unknown) (unknown) sulfamethoxazole 800 1 tab PO Q12H 10 days #20 tabs 08/11/22 (units unknown) (unknown) (unknown) (no date) (unknown) (unknown) sulfamethoxazole-tri m ethoprim [Bactrim DS] 800-160 mg tablet (units unknown) (unknown) (unknown) (no date) (unknown) (unknown) suppository (Promethegan) Vomiting (units unknown) (unknown) (unknown) (no date) (unknown) (unknown) the plan. (units unknown) (unknown) (unknown) (no date) (unknown) (unknown) them. (units unknown) (unknown) (unknown) (no date) (unknown) (unknown) thiamine, Rocephin, Reglan, pantoprazole, Bactrim. White count was 20. Lactate (units unknown) (unknown) (unknown) (no date) (unknown) (unknown) tobacco type: vaping (units unknown) (unknown) (unknown) (no date) (unknown) (unknown) tonsillar hypertroph y or exudate. Airway patent. (units unknown) (unknown) (unknown) (no date) (unknown) (unknown) treated with ceftriaxone and Bactrim due to her most recent urine culture (units unknown) (unknown) (unknown) (no date) (unknown) (unknown) urine culture growin g staph lugdunensis. Patient was discharged with (units unknown) (unknown) (unknown) (no date) (unknown) (unknown) vomiting earlier thi s morning. Patient states that she was seen yesterday (units unknown) (unknown) (unknown) (no date) (unknown) (unknown) vomiting (units unknown) (unknown) (unknown) (no date) (unknown) (unknown) was 15 WBC. Repeat lactate was 0.9. UA was positive for urine glucose, (units unknown) (unknown) (unknown) (no date) (unknown) (unknown) was 2.8. Repeat lab work was 15 WBC. Repeat lactate was 0.9. UA was positive (units unknown) (unknown) (unknown) (no date) (unknown) (unknown) was reassuring and recommended she complete the course of antibiotics that was (units unknown) (unknown) Result panel 1630 (unknown) (no date) (unknown) (unknown) No growth. (units unknown) (unknown) Result panel 1631 (unknown) (no date) (unknown) (unknown) (no value) (units unknown) (unknown) (unknown) (no date) (unknown) (unknown) NO GROWTH AFTER 48 HOURS (units unknown) (unknown) (unknown) (no date) (unknown) (unknown) NO GROWTH AFTER 48 HOURS (units unknown) (unknown) Result panel 1632 (unknown) (no date) (unknown) (unknown) (no value) (units unknown) (unknown) (unknown) (no date) (unknown) (unknown) NO GROWTH AFTER 48 HOURS (units unknown) (unknown) (unknown) (no date) (unknown) (unknown) NO GROWTH AFTER 48 HOURS (units unknown) (unknown) Result panel 1633 (unknown) (no date) (unknown) (unknown) (no value) (units unknown) (unknown) (unknown) (no date) (unknown) (unknown) #: [id number] (units unknown) (unknown) (unknown) (no date) (unknown) (unknown) (past 8 hours): (units unknown) (unknown) (unknown) (no date) (unknown) (unknown) - last A1c 2 6.3 -reviewed endocrinology notes (units unknown) (unknown) (unknown) (no date) (unknown) (unknown) -Admit: 98.3?, BP 143/83, HR 123, R 24, O2 saturation 99% (units unknown) (unknown) (unknown) (no date) (unknown) (unknown) -BMI 22.8 (units unknown) (unknown) (unknown) (no date) (unknown) (unknown) -BMP q.4 hours, glucose checks q.2 hours-until gap closed<12 (units unknown) (unknown) (unknown) (no date) (unknown) (unknown) -BNP q.4 hours (units unknown) (unknown) (unknown) (no date) (unknown) (unknown) -ED: BP of 123/77 bu t was tachycardic HR 111, tachypneic RR 21. (units unknown) (unknown) (unknown) (no date) (unknown) (unknown) -Haldol 0.5 4 times daily-for antiemetic control, in addition to Phenergan (units unknown) (unknown) (unknown) (no date) (unknown) (unknown) -UA positive for UTI , urine culture pending, blood culture pending (units unknown) (unknown) (unknown) (no date) (unknown) (unknown) -V/SQ 1 hour x4 if stable may change to q.4 hours:? Notify for HR>120, RR>36, (units unknown) (unknown) (unknown) (no date) (unknown) (unknown) -WBC 18.1, neutrophils 14,000, lactate 2.3 patient meets SIRS severe sepsis (units unknown) (unknown) (unknown) (no date) (unknown) (unknown) -While vomiting: holding Reglan, protonix- changed to IV protonix (units unknown) (unknown) (unknown) (no date) (unknown) (unknown) -admitted under diabetic protocols, sliding scale for coverage, patient normally (units unknown) (unknown) (unknown) (no date) (unknown) (unknown) -antiemetics, pain control (units unknown) (unknown) (unknown) (no date) (unknown) (unknown) -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 Astudillo (units unknown) (unknown) (unknown) (no date) (unknown) (unknown) -continue phenergan supp (units unknown) (unknown) (unknown) (no date) (unknown) (unknown) -dietary consult ordered to evaluate and implement steps to improve caloric (units unknown) (unknown) (unknown) (no date) (unknown) (unknown) -history cannabis hyperemesis syndrome/cyclic vomiting syndrome (units unknown) (unknown) (unknown) (no date) (unknown) (unknown) -initiated for complicated sepsis UTI meropenem and vancomycin (per up-to date) (units unknown) (unknown) (unknown) (no date) (unknown) (unknown) -on admit initiated sepsis bolus 30 cc/kg per hour (units unknown) (unknown) (unknown) (no date) (unknown) (unknown) -ordered 40 mEq potassium rider (units unknown) (unknown) (unknown) (no date) (unknown) (unknown) -ordered renal ultrasound to check for hydronephrosis (units unknown) (unknown) (unknown) (no date) (unknown) (unknown) -ordered salicylate, amylase, TSH, troponin, urine osmolality, ETOH, A1C (units unknown) (unknown) (unknown) (no date) (unknown) (unknown) -patient given Rocephin in ED (units unknown) (unknown) (unknown) (no date) (unknown) (unknown) -patient's malnutrition places them at high risk for medical and surgical (units unknown) (unknown) (unknown) (no date) (unknown) (unknown) -potassium 3.3, -ordered 40 mEq potassium rider (units unknown) (unknown) (unknown) (no date) (unknown) (unknown) -potassium 3.3, bicarb 19, glucose 92, ketones 5.09?anion gap 20, not in DKA (units unknown) (unknown) (unknown) (no date) (unknown) (unknown) -potassium goal: 4-5 (units unknown) (unknown) (unknown) (no date) (unknown) (unknown) -strict I+O, notify for UOP< 50 cc/HR (units unknown) (unknown) (unknown) (no date) (unknown) (unknown) -to be followed by N S at 100 cc/HR (units unknown) (unknown) (unknown) (no date) (unknown) (unknown) -will dose Humalog per patient's personal dosing schedule. (units unknown) (unknown) (unknown) (no date) (unknown) (unknown) 00:06 00:06 00:06 (units unknown) (unknown) (unknown) (no date) (unknown) (unknown) 00:06 00:06 00:30 (units unknown) (unknown) (unknown) (no date) (unknown) (unknown) 02:15 02:15 02:15 (units unknown) (unknown) (unknown) (no date) (unknown) (unknown) 02:15 02:15 04:53 (units unknown) (unknown) (unknown) (no date) (unknown) (unknown) 08/12/22 02:15 (units unknown) (unknown) (unknown) (no date) (unknown) (unknown) 08/12/22 08/12/22 08/12/22 (units unknown) (unknown) (unknown) (no date) (unknown) (unknown) 08/12/22 04:53 (units unknown) (unknown) (unknown) (no date) (unknown) (unknown) 08/12/22 (units unknown) (unknown) (unknown) (no date) (unknown) (unknown) 1. Lactic acidosis sepsis (metabolic) without septic shock due to (units unknown) (unknown) (unknown) (no date) (unknown) (unknown) 11:40 (units unknown) (unknown) (unknown) (no date) (unknown) (unknown) 2. 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 Hypokalemia, acute, secondary to volume loss N/V, present on admission (units unknown) (unknown) (unknown) (no date) (unknown) (unknown) 4. Malnutrition, mild, acute on chronic, present on admission (units unknown) (unknown) (unknown) (no date) (unknown) (unknown) ?Code status:? DNR DNI via patient wishes documented in chart 01/2022 (units unknown) (unknown) (unknown) (no date) (unknown) (unknown) ALT 14 (units unknown) (unknown) (unknown) (no date) (unknown) (unknown) ALT 20 (units unknown) (unknown) (unknown) (no date) (unknown) (unknown) ALT (units unknown) (unknown) (unknown) (no date) (unknown) (unknown) AST 25 (units unknown) (unknown) (unknown) (no date) (unknown) (unknown) AST 31 (units unknown) (unknown) (unknown) (no date) (unknown) (unknown) AST (units unknown) (unknown) (unknown) (no date) (unknown) (unknown) Abdomen:? Soft diffuse generalized tenderness radiation around to back, negative (units unknown) (unknown) (unknown) (no date) (unknown) (unknown) Age/Sex: 27 / F (units unknown) (unknown) (unknown) (no date) (unknown) (unknown) Albumin 3.8 (units unknown) (unknown) (unknown) (no date) (unknown) (unknown) Albumin 4.7 (units unknown) (unknown) (unknown) (no date) (unknown) (unknown) Albumin (units unknown) (unknown) (unknown) (no date) (unknown) (unknown) Albumin/Globulin Ratio 1.5 (units unknown) (unknown) (unknown) (no date) (unknown) (unknown) Albumin/Globulin Ratio (units unknown) (unknown) (unknown) (no date) (unknown) (unknown) Alkaline Phosphatase 115 (units unknown) (unknown) (unknown) (no date) (unknown) (unknown) Alkaline Phosphatase 99 (units unknown) (unknown) (unknown) (no date) (unknown) (unknown) Alkaline Phosphatase (units unknown) (unknown) (unknown) (no date) (unknown) (unknown) Amylase 38 (units unknown) (unknown) (unknown) (no date) (unknown) (unknown) Amylase (units unknown) (unknown) (unknown) (no date) (unknown) (unknown) Anemia (units unknown) (unknown) (unknown) (no date) (unknown) (unknown) Assessment + Plan narrative: (units unknown) (unknown) (unknown) (no date) (unknown) (unknown) Assessment + Plan (units unknown) (unknown) (unknown) (no date) (unknown) (unknown) BUN 11 (units unknown) (unknown) (unknown) (no date) (unknown) (unknown) BUN 12 (units unknown) (unknown) (unknown) (no date) (unknown) (unknown) BUN (units unknown) (unknown) (unknown) (no date) (unknown) (unknown) BUN/Creatinine Ratio 21.4 (units unknown) (unknown) (unknown) (no date) (unknown) (unknown) BUN/Creatinine Ratio 22.0 (units unknown) (unknown) (unknown) (no date) (unknown) (unknown) BUN/Creatinine Ratio 23.5 H (units unknown) (unknown) (unknown) (no date) (unknown) (unknown) BUN/Creatinine Ratio (units unknown) (unknown) (unknown) (no date) (unknown) (unknown) Baso # (Auto) 0 (units unknown) (unknown) (unknown) (no date) (unknown) (unknown) Baso # (Auto) (units unknown) (unknown) (unknown) (no date) (unknown) (unknown) Baso % (Auto) 0.1 (units unknown) (unknown) (unknown) (no date) (unknown) (unknown) Baso % (Auto) 0.2 (units unknown) (unknown) (unknown) (no date) (unknown) (unknown) Baso % (Auto) (units unknown) (unknown) (unknown) (no date) (unknown) (unknown) Blood Pressure 94/47 L (units unknown) (unknown) (unknown) (no date) (unknown) (unknown) COVID PCR:Ordered (units unknown) (unknown) (unknown) (no date) (unknown) (unknown) Calcium 7.1 L (units unknown) (unknown) (unknown) (no date) (unknown) (unknown) Calcium 7.4 L (units unknown) (unknown) (unknown) (no date) (unknown) (unknown) Calcium 8.7 (units unknown) (unknown) (unknown) (no date) (unknown) (unknown) Calcium (units unknown) (unknown) (unknown) (no date) (unknown) (unknown) Cannabis hyperemesis syndrome concurrent with and due to cannabis dependence (units unknown) (unknown) (unknown) (no date) (unknown) (unknown) Carbon Dioxide 13 L (units unknown) (unknown) (unknown) (no date) (unknown) (unknown) Carbon Dioxide 19 L (units unknown) (unknown) (unknown) (no date) (unknown) (unknown) Carbon Dioxide 20 L (units unknown) (unknown) (unknown) (no date) (unknown) (unknown) Carbon Dioxide (units unknown) (unknown) (unknown) (no date) (unknown) (unknown) Cardio:? Tachycardic regular rate and rhythm without murmur, rubs, or gallops, (units unknown) (unknown) (unknown) (no date) (unknown) (unknown) Chest:? Breathing without nasal flaring, retractions, or labored, but is (units unknown) (unknown) (unknown) (no date) (unknown) (unknown) Chloride 104 (units unknown) (unknown) (unknown) (no date) (unknown) (unknown) Chloride 99 (units unknown) (unknown) (unknown) (no date) (unknown) (unknown) Chloride (units unknown) (unknown) (unknown) (no date) (unknown) (unknown) Creatinine 0.50 L (units unknown) (unknown) (unknown) (no date) (unknown) (unknown) Creatinine 0.51 L (units unknown) (unknown) (unknown) (no date) (unknown) (unknown) Creatinine 0.56 (units unknown) (unknown) (unknown) (no date) (unknown) (unknown) Creatinine (units unknown) (unknown) (unknown) (no date) (unknown) (unknown) Cyclic vomiting syndrome (units unknown) (unknown) (unknown) (no date) (unknown) (unknown) DKA (diabetic ketoacidoses) (units unknown) (unknown) (unknown) (no date) (unknown) (unknown) : 1995 Acct:[id number] (units unknown) (unknown) (unknown) (no date) (unknown) (unknown) DVT/VTE prophylaxis: ? Lovenox and SCDs (units unknown) (unknown) (unknown) (no date) (unknown) (unknown) Date of Service: 08/12/22 (units unknown) (unknown) (unknown) (no date) (unknown) (unknown) Diabetes mellitus, type I (units unknown) (unknown) (unknown) (no date) (unknown) (unknown) Eos # (Auto) 0 (units unknown) (unknown) (unknown) (no date) (unknown) (unknown) Eos # (Auto) (units unknown) (unknown) (unknown) (no date) (unknown) (unknown) Eos % (Auto) 0.0 L (units unknown) (unknown) (unknown) (no date) (unknown) (unknown) Eos % (Auto) (units unknown) (unknown) (unknown) (no date) (unknown) (unknown) Estimated GFR > 60 (units unknown) (unknown) (unknown) (no date) (unknown) (unknown) Estimated GFR (units unknown) (unknown) (unknown) (no date) (unknown) (unknown) Ethyl Alcohol < 10 (units unknown) (unknown) (unknown) (no date) (unknown) (unknown) Ethyl Alcohol (units unknown) (unknown) (unknown) (no date) (unknown) (unknown) Exam Narrative: (units unknown) (unknown) (unknown) (no date) (unknown) (unknown) Exam (units unknown) (unknown) (unknown) (no date) (unknown) (unknown) Family History (units unknown) (unknown) (unknown) (no date) (unknown) (unknown) Father Healthy adult (units unknown) (unknown) (unknown) (no date) (unknown) (unknown) Free T4 1.91 (units unknown) (unknown) (unknown) (no date) (unknown) (unknown) Free T4 (units unknown) (unknown) (unknown) (no date) (unknown) (unknown) Gastroparesis (units unknown) (unknown) (unknown) (no date) (unknown) (unknown) General:? Patient is a well-developed, well-nourished in mild distress shaking (units unknown) (unknown) (unknown) (no date) (unknown) (unknown) Globulin 2.5 (units unknown) (unknown) (unknown) (no date) (unknown) (unknown) Globulin 3.1 (units unknown) (unknown) (unknown) (no date) (unknown) (unknown) Globulin (units unknown) (unknown) (unknown) (no date) (unknown) (unknown) Glucose 217 H D (units unknown) (unknown) (unknown) (no date) (unknown) (unknown) Glucose 91 (units unknown) (unknown) (unknown) (no date) (unknown) (unknown) Glucose 92 (units unknown) (unknown) (unknown) (no date) (unknown) (unknown) Glucose (units unknown) (unknown) (unknown) (no date) (unknown) (unknown) HEENT:? Normocephalic, atraumatic, extraocular muscles intact, oral pharynx is (units unknown) (unknown) (unknown) (no date) (unknown) (unknown) Hct 27.4 L (units unknown) (unknown) (unknown) (no date) (unknown) (unknown) Hct 34.9 L (units unknown) (unknown) (unknown) (no date) (unknown) (unknown) Hct (units unknown) (unknown) (unknown) (no date) (unknown) (unknown) Hemoglobin A1c Cancelled (units unknown) (unknown) (unknown) (no date) (unknown) (unknown) Hemoglobin A1c (units unknown) (unknown) (unknown) (no date) (unknown) (unknown) Hgb 11.4 L (units unknown) (unknown) (unknown) (no date) (unknown) (unknown) Hgb 9.1 L (units unknown) (unknown) (unknown) (no date) (unknown) (unknown) Hgb (units unknown) (unknown) (unknown) (no date) (unknown) (unknown) Insulin dependent diabetes mellitus (units unknown) (unknown) (unknown) (no date) (unknown) (unknown) [address] [address] (units unknown) (unknown) (unknown) (no date) (unknown) (unknown) Ketones 5.09 H (units unknown) (unknown) (unknown) (no date) (unknown) (unknown) Ketones (units unknown) (unknown) (unknown) (no date) (unknown) (unknown) Laboratory Results - last 24 hr (units unknown) (unknown) (unknown) (no date) (unknown) (unknown) Labs (units unknown) (unknown) (unknown) (no date) (unknown) (unknown) Labs: (units unknown) (unknown) (unknown) (no date) (unknown) (unknown) Lactate 0.7 (units unknown) (unknown) (unknown) (no date) (unknown) (unknown) Lactate 2.3 H (units unknown) (unknown) (unknown) (no date) (unknown) (unknown) Lactate (units unknown) (unknown) (unknown) (no date) (unknown) (unknown) Lipase 24 (units unknown) (unknown) (unknown) (no date) (unknown) (unknown) Lipase (units unknown) (unknown) (unknown) (no date) (unknown) (unknown) Lungs:? Auscultation of all lung hendricks are clear without adventitious sounds, (units unknown) (unknown) (unknown) (no date) (unknown) (unknown) Lymph # (Auto) 2100 (units unknown) (unknown) (unknown) (no date) (unknown) (unknown) Lymph # (Auto) 3200 (units unknown) (unknown) (unknown) (no date) (unknown) (unknown) Lymph # (Auto) (units unknown) (unknown) (unknown) (no date) (unknown) (unknown) Lymph % (Auto) 17.3 L (units unknown) (unknown) (unknown) (no date) (unknown) (unknown) Lymph % (Auto) 17.7 L (units unknown) (unknown) (unknown) (no date) (unknown) (unknown) Lymph % (Auto) (units unknown) (unknown) (unknown) (no date) (unknown) (unknown) MAP<70, BP <90/60, B P >180/105, Temp>102 (units unknown) (unknown) (unknown) (no date) (unknown) (unknown) MCH 25.5 L (units unknown) (unknown) (unknown) (no date) (unknown) (unknown) MCH 25.6 L (units unknown) (unknown) (unknown) (no date) (unknown) (unknown) MCH (units unknown) (unknown) (unknown) (no date) (unknown) (unknown) MCHC 32.7 (units unknown) (unknown) (unknown) (no date) (unknown) (unknown) MCHC 33.1 (units unknown) (unknown) (unknown) (no date) (unknown) (unknown) MCHC (units unknown) (unknown) (unknown) (no date) (unknown) (unknown) MCV 77.4 L (units unknown) (unknown) (unknown) (no date) (unknown) (unknown) MCV 78.0 L (units unknown) (unknown) (unknown) (no date) (unknown) (unknown) MCV (units unknown) (unknown) (unknown) (no date) (unknown) (unknown) Magnesium 1.6 (units unknown) (unknown) (unknown) (no date) (unknown) (unknown) Magnesium 1.8 (units unknown) (unknown) (unknown) (no date) (unknown) (unknown) Magnesium (units unknown) (unknown) (unknown) (no date) (unknown) (unknown) Medical History (Updated 08/12/22 @ 02:17 by Gracia Smith [facility]) (units unknown) (unknown) (unknown) (no date) (unknown) (unknown) Migraine headache with aura (units unknown) (unknown) (unknown) (no date) (unknown) (unknown) O'Brien # (Auto) 600 (units unknown) (unknown) (unknown) (no date) (unknown) (unknown) O'Brien # (Auto) 900 (units unknown) (unknown) (unknown) (no date) (unknown) (unknown) O'Brien # (Auto) (units unknown) (unknown) (unknown) (no date) (unknown) (unknown) O'Brien % (Auto) 4.8 (units unknown) (unknown) (unknown) (no date) (unknown) (unknown) O'Brien % (Auto) (units unknown) (unknown) (unknown) (no date) (unknown) (unknown) Mother Hypertension (units unknown) (unknown) (unknown) (no date) (unknown) (unknown) Musculoskeletal:? Muscle strength and tone are equal within normal limits, no (units unknown) (unknown) (unknown) (no date) (unknown) (unknown) Myopia (units unknown) (unknown) (unknown) (no date) (unknown) (unknown) NT-Pro-B Natriuret Pep 609 H (units unknown) (unknown) (unknown) (no date) (unknown) (unknown) NT-Pro-B Natriuret Pep (units unknown) (unknown) (unknown) (no date) (unknown) (unknown) Narrative (units unknown) (unknown) (unknown) (no date) (unknown) (unknown) Negative for JVD (units unknown) (unknown) (unknown) (no date) (unknown) (unknown) Neuro:? Alert and orientated x3, strength is +5/5 in all extremities, sensation (units unknown) (unknown) (unknown) (no date) (unknown) (unknown) Neut # (Auto) 07084 H (units unknown) (unknown) (unknown) (no date) (unknown) (unknown) Neut # (Auto) 9500 H (units unknown) (unknown) (unknown) (no date) (unknown) (unknown) Neut # (Auto) (units unknown) (unknown) (unknown) (no date) (unknown) (unknown) Neut % (Auto) 77.4 H (units unknown) (unknown) (unknown) (no date) (unknown) (unknown) Neut % (Auto) 77.7 H (units unknown) (unknown) (unknown) (no date) (unknown) (unknown) Neut % (Auto) (units unknown) (unknown) (unknown) (no date) (unknown) (unknown) Objective (units unknown) (unknown) (unknown) (no date) (unknown) (unknown) Oxygen Delivery Method Room Air (units unknown) (unknown) (unknown) (no date) (unknown) (unknown) Oxygen Flow Rate 0 (units unknown) (unknown) (unknown) (no date) (unknown) (unknown) PFSH (units unknown) (unknown) (unknown) (no date) (unknown) (unknown) Pancreatitis (units unknown) (unknown) (unknown) (no date) (unknown) (unknown) Patient: Kaur Horton MR (units unknown) (unknown) (unknown) (no date) (unknown) (unknown) Phosphorus 3.1 (units unknown) (unknown) (unknown) (no date) (unknown) (unknown) Phosphorus (units unknown) (unknown) (unknown) (no date) (unknown) (unknown) Plt Count 234 (units unknown) (unknown) (unknown) (no date) (unknown) (unknown) Plt Count 317 (units unknown) (unknown) (unknown) (no date) (unknown) (unknown) Plt Count (units unknown) (unknown) (unknown) (no date) (unknown) (unknown) Potassium 2.8 L (units unknown) (unknown) (unknown) (no date) (unknown) (unknown) Potassium 3.3 L (units unknown) (unknown) (unknown) (no date) (unknown) (unknown) Potassium 3.4 (units unknown) (unknown) (unknown) (no date) (unknown) (unknown) Potassium (units unknown) (unknown) (unknown) (no date) (unknown) (unknown) Procalcitonin 0.19 (units unknown) (unknown) (unknown) (no date) (unknown) (unknown) Procalcitonin (units unknown) (unknown) (unknown) (no date) (unknown) (unknown) Progress Note (units unknown) (unknown) (unknown) (no date) (unknown) (unknown) Provider: Nicole Robins MD (units unknown) (unknown) (unknown) (no date) (unknown) (unknown) Psych:? Patient has a well-kept appearance, appropriate affect, mental status (units unknown) (unknown) (unknown) (no date) (unknown) (unknown) Pulse Oximetry 98 (units unknown) (unknown) (unknown) (no date) (unknown) (unknown) Pulse Rate 100 H (units unknown) (unknown) (unknown) (no date) (unknown) (unknown) RBC 3.54 L (units unknown) (unknown) (unknown) (no date) (unknown) (unknown) RBC 4.47 (units unknown) (unknown) (unknown) (no date) (unknown) (unknown) RBC (units unknown) (unknown) (unknown) (no date) (unknown) (unknown) RDW 15.5 H (units unknown) (unknown) (unknown) (no date) (unknown) (unknown) RDW 15.9 H (units unknown) (unknown) (unknown) (no date) (unknown) (unknown) RDW (units unknown) (unknown) (unknown) (no date) (unknown) (unknown) Respiratory Rate 18 (units unknown) (unknown) (unknown) (no date) (unknown) (unknown) SARS-CoV-2 (PCR) Negative (units unknown) (unknown) (unknown) (no date) (unknown) (unknown) SARS-CoV-2 (PCR) (units unknown) (unknown) (unknown) (no date) (unknown) (unknown) Salicylates < 1.0 (units unknown) (unknown) (unknown) (no date) (unknown) (unknown) Salicylates (units unknown) (unknown) (unknown) (no date) (unknown) (unknown) Serum , Sushil l Negative (units unknown) (unknown) (unknown) (no date) (unknown) (unknown) Serum , Qual (units unknown) (unknown) (unknown) (no date) (unknown) (unknown) Signed By: (units unknown) (unknown) (unknown) (no date) (unknown) (unknown) Skin:? Warm dry and intact without rashes, ulcerations or petechiae.? (units unknown) (unknown) (unknown) (no date) (unknown) (unknown) Smoking Status: Current every day smoker (units unknown) (unknown) (unknown) (no date) (unknown) (unknown) Social History (units unknown) (unknown) (unknown) (no date) (unknown) (unknown) Sodium 135 L (units unknown) (unknown) (unknown) (no date) (unknown) (unknown) Sodium 136 L (units unknown) (unknown) (unknown) (no date) (unknown) (unknown) Sodium 138 (units unknown) (unknown) (unknown) (no date) (unknown) (unknown) Sodium (units unknown) (unknown) (unknown) (no date) (unknown) (unknown) Status post appendectomy (units unknown) (unknown) (unknown) (no date) (unknown) (unknown) Surgical History (units unknown) (unknown) (unknown) (no date) (unknown) (unknown) Surrogate decision maker:? Spouse Khoa (units unknown) (unknown) (unknown) (no date) (unknown) (unknown) TSH 0.34 L (units unknown) (unknown) (unknown) (no date) (unknown) (unknown) TSH (units unknown) (unknown) (unknown) (no date) (unknown) (unknown) Temperature 98.3 F (units unknown) (unknown) (unknown) (no date) (unknown) (unknown) Total Bilirubin 0.6 (units unknown) (unknown) (unknown) (no date) (unknown) (unknown) Total Bilirubin 1.0 (units unknown) (unknown) (unknown) (no date) (unknown) (unknown) Total Bilirubin (units unknown) (unknown) (unknown) (no date) (unknown) (unknown) Total Protein 6.3 (units unknown) (unknown) (unknown) (no date) (unknown) (unknown) Total Protein 7.8 (units unknown) (unknown) (unknown) (no date) (unknown) (unknown) Total Protein (units unknown) (unknown) (unknown) (no date) (unknown) (unknown) Troponin I < 0.012 (units unknown) (unknown) (unknown) (no date) (unknown) (unknown) Troponin I (units unknown) (unknown) (unknown) (no date) (unknown) (unknown) UTI/pyelonephritis, with intractable nausea vomiting, acute, present on (units unknown) (unknown) (unknown) (no date) (unknown) (unknown) Vital Signs (units unknown) (unknown) (unknown) (no date) (unknown) (unknown) WBC 12.2 H (units unknown) (unknown) (unknown) (no date) (unknown) (unknown) WBC 18.1 H (units unknown) (unknown) (unknown) (no date) (unknown) (unknown) WBC (units unknown) (unknown) (unknown) (no date) (unknown) (unknown) [Embedded Image Not Available] (units unknown) (unknown) (unknown) (no date) (unknown) (unknown) admission (units unknown) (unknown) (unknown) (no date) (unknown) (unknown) alcohol intake: never (units unknown) (unknown) (unknown) (no date) (unknown) (unknown) alter based on cultures (units unknown) (unknown) (unknown) (no date) (unknown) (unknown) attitude thought context and judgment are appropriate for age. (units unknown) (unknown) (unknown) (no date) (unknown) (unknown) clear and mucous membranes are dry.? Neck is supple and symmetric, trachea is (units unknown) (unknown) (unknown) (no date) (unknown) (unknown) complications in relation to acute illness/chronic illness.? This increases the (units unknown) (unknown) (unknown) (no date) (unknown) (unknown) criteria, Anion Gap 20-monitor for septic shock/DKA (units unknown) (unknown) (unknown) (no date) (unknown) (unknown) deformity, crepitus, effusions, cyanosis, clubbing or edema present.? Full range (units unknown) (unknown) (unknown) (no date) (unknown) (unknown) difficulty in complexity of medical management and increases the chances poor (units unknown) (unknown) (unknown) (no date) (unknown) (unknown) for organomegaly, or masses.? Bowel sounds are present in all 4 quadrants (units unknown) (unknown) (unknown) (no date) (unknown) (unknown) gastroparesis, chronic, present on admission (units unknown) (unknown) (unknown) (no date) (unknown) (unknown) household members: spouse (units unknown) (unknown) (unknown) (no date) (unknown) (unknown) immune suppression. (units unknown) (unknown) (unknown) (no date) (unknown) (unknown) intake and nutrition. (units unknown) (unknown) (unknown) (no date) (unknown) (unknown) midline, no adenopathy, no thyroid enlargement, nontender, no masses palpated.? (units unknown) (unknown) (unknown) (no date) (unknown) (unknown) no carotid bruit, no cardiac pulsations present. (units unknown) (unknown) (unknown) (no date) (unknown) (unknown) of motion intact radial and pedal pulses are normal. (units unknown) (unknown) (unknown) (no date) (unknown) (unknown) outcomes such as mortality and morbidity as well as impaired wound healing, and (units unknown) (unknown) (unknown) (no date) (unknown) (unknown) suppositories, IV Zofran (units unknown) (unknown) (unknown) (no date) (unknown) (unknown) tachypneic (units unknown) (unknown) (unknown) (no date) (unknown) (unknown) that the pt can overcome, in no respiratory distress at this time. (units unknown) (unknown) (unknown) (no date) (unknown) (unknown) to touch intact, no gross deficits noted of cranial nerves. (units unknown) (unknown) (unknown) (no date) (unknown) (unknown) wears an insulin pum p was discontinued per hospital policy. (units unknown) (unknown) (unknown) (no date) (unknown) (unknown) wheezes, rhonchi, or rales. (units unknown) (unknown) (unknown) (no date) (unknown) (unknown) without guarding or rebound, positive CVA tenderness. (units unknown) (unknown) Result panel [id number] (unknown) (no date) (unknown) (unknown) (no value) (units unknown) (unknown) (unknown) (no date) (unknown) (unknown) #: [id number] (units unknown) (unknown) (unknown) (no date) (unknown) (unknown) (past 8 hours): (units unknown) (unknown) (unknown) (no date) (unknown) (unknown) - last A1c 2 6.3 -reviewed endocrinology notes (units unknown) (unknown) (unknown) (no date) (unknown) (unknown) -Admit: 98.3?, BP 143/83, HR 123, R 24, O2 saturation 99% (units unknown) (unknown) (unknown) (no date) (unknown) (unknown) -BMI 22.8 (units unknown) (unknown) (unknown) (no date) (unknown) (unknown) -BMP q.4 hours, glucose checks q.2 hours-until gap closed<12 (units unknown) (unknown) (unknown) (no date) (unknown) (unknown) -BNP q.4 hours (units unknown) (unknown) (unknown) (no date) (unknown) (unknown) -ED: BP of 123/77 bu t was tachycardic HR 111, tachypneic RR 21. Now heart rate (units unknown) (unknown) (unknown) (no date) (unknown) (unknown) -Haldol 0.5 4 times daily-for antiemetic control, in addition to Phenergan (units unknown) (unknown) (unknown) (no date) (unknown) (unknown) -UA positive for UTI , urine culture E coli, blood culture pending (units unknown) (unknown) (unknown) (no date) (unknown) (unknown) -V/SQ 1 hour x4 if stable may change to q.4 hours:? Notify for HR>120, RR>36, (units unknown) (unknown) (unknown) (no date) (unknown) (unknown) -WBC 18.1, neutrophils 14,000, lactate 2.3 patient meets SIRS severe sepsis (units unknown) (unknown) (unknown) (no date) (unknown) (unknown) -While vomiting: holding Reglan, protonix- changed to IV protonix (units unknown) (unknown) (unknown) (no date) (unknown) (unknown) -admitted under diabetic protocols, sliding scale for coverage, patient normally (units unknown) (unknown) (unknown) (no date) (unknown) (unknown) -antiemetics, pain control (units unknown) (unknown) (unknown) (no date) (unknown) (unknown) -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 Astudillo (units unknown) (unknown) (unknown) (no date) (unknown) (unknown) -continue phenergan supp (units unknown) (unknown) (unknown) (no date) (unknown) (unknown) -dietary consult ordered to evaluate and implement steps to improve caloric (units unknown) (unknown) (unknown) (no date) (unknown) (unknown) -history cannabis hyperemesis syndrome/cyclic vomiting syndrome (units unknown) (unknown) (unknown) (no date) (unknown) (unknown) -initiated for complicated sepsis UTI meropenem and vancomycin (per up-to date) (units unknown) (unknown) (unknown) (no date) (unknown) (unknown) -on admit initiated sepsis bolus 30 cc/kg per hour (units unknown) (unknown) (unknown) (no date) (unknown) (unknown) -ordered 40 mEq potassium rider (units unknown) (unknown) (unknown) (no date) (unknown) (unknown) -ordered renal ultrasound to check for hydronephrosis (units unknown) (unknown) (unknown) (no date) (unknown) (unknown) -ordered salicylate, amylase, TSH, troponin, urine osmolality, ETOH, A1C (units unknown) (unknown) (unknown) (no date) (unknown) (unknown) -patient given Rocephin in ED (units unknown) (unknown) (unknown) (no date) (unknown) (unknown) -patient's malnutrition places them at high risk for medical and surgical (units unknown) (unknown) (unknown) (no date) (unknown) (unknown) -potassium 3.3, -ordered 40 mEq potassium rider (units unknown) (unknown) (unknown) (no date) (unknown) (unknown) -potassium 3.3, bicarb 19, glucose 92, ketones 5.09?anion gap 20, not in DKA (units unknown) (unknown) (unknown) (no date) (unknown) (unknown) -potassium goal: 4-5 (units unknown) (unknown) (unknown) (no date) (unknown) (unknown) -strict I+O, notify for UOP< 50 cc/HR (units unknown) (unknown) (unknown) (no date) (unknown) (unknown) -to be followed by N S at 100 cc/HR (units unknown) (unknown) (unknown) (no date) (unknown) (unknown) -will dose Humalog per patient's personal dosing schedule. (units unknown) (unknown) (unknown) (no date) (unknown) (unknown) 00:06 00:06 00:06 (units unknown) (unknown) (unknown) (no date) (unknown) (unknown) 00:06 00:06 00:30 (units unknown) (unknown) (unknown) (no date) (unknown) (unknown) 02:15 02:15 02:15 (units unknown) (unknown) (unknown) (no date) (unknown) (unknown) 02:15 02:15 04:53 (units unknown) (unknown) (unknown) (no date) (unknown) (unknown) 08/12/22 02:15 (units unknown) (unknown) (unknown) (no date) (unknown) (unknown) 08/12/22 08/12/22 08/12/22 (units unknown) (unknown) (unknown) (no date) (unknown) (unknown) 08/12/22 04:53 (units unknown) (unknown) (unknown) (no date) (unknown) (unknown) 08/12/22 (units unknown) (unknown) (unknown) (no date) (unknown) (unknown) 1. Lactic acidosis sepsis (metabolic) without septic shock due to (units unknown) (unknown) (unknown) (no date) (unknown) (unknown) 100 and respiratory rate 18 blood pressure 94/47 (units unknown) (unknown) (unknown) (no date) (unknown) (unknown) 11:40 (units unknown) (unknown) (unknown) (no date) (unknown) (unknown) 2. 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 Hypokalemia, acute, secondary to volume loss N/V, present on admission (units unknown) (unknown) (unknown) (no date) (unknown) (unknown) 4. Malnutrition, mild, acute on chronic, present on admission (units unknown) (unknown) (unknown) (no date) (unknown) (unknown) ?Code status:? DNR DNI via patient wishes documented in chart 01/2022 (units unknown) (unknown) (unknown) (no date) (unknown) (unknown) ALT 14 (units unknown) (unknown) (unknown) (no date) (unknown) (unknown) ALT 20 (units unknown) (unknown) (unknown) (no date) (unknown) (unknown) ALT (units unknown) (unknown) (unknown) (no date) (unknown) (unknown) AST 25 (units unknown) (unknown) (unknown) (no date) (unknown) (unknown) AST 31 (units unknown) (unknown) (unknown) (no date) (unknown) (unknown) AST (units unknown) (unknown) (unknown) (no date) (unknown) (unknown) Abdomen:? Soft diffuse generalized minimal tenderness, negative for (units unknown) (unknown) (unknown) (no date) (unknown) (unknown) Age/Sex: 27 / F (units unknown) (unknown) (unknown) (no date) (unknown) (unknown) Albumin 3.8 (units unknown) (unknown) (unknown) (no date) (unknown) (unknown) Albumin 4.7 (units unknown) (unknown) (unknown) (no date) (unknown) (unknown) Albumin (units unknown) (unknown) (unknown) (no date) (unknown) (unknown) Albumin/Globulin Ratio 1.5 (units unknown) (unknown) (unknown) (no date) (unknown) (unknown) Albumin/Globulin Ratio (units unknown) (unknown) (unknown) (no date) (unknown) (unknown) Alkaline Phosphatase 115 (units unknown) (unknown) (unknown) (no date) (unknown) (unknown) Alkaline Phosphatase 99 (units unknown) (unknown) (unknown) (no date) (unknown) (unknown) Alkaline Phosphatase (units unknown) (unknown) (unknown) (no date) (unknown) (unknown) Amylase 38 (units unknown) (unknown) (unknown) (no date) (unknown) (unknown) Amylase (units unknown) (unknown) (unknown) (no date) (unknown) (unknown) Anemia (units unknown) (unknown) (unknown) (no date) (unknown) (unknown) Assessment + Plan narrative: (units unknown) (unknown) (unknown) (no date) (unknown) (unknown) Assessment + Plan (units unknown) (unknown) (unknown) (no date) (unknown) (unknown) BUN 11 (units unknown) (unknown) (unknown) (no date) (unknown) (unknown) BUN 12 (units unknown) (unknown) (unknown) (no date) (unknown) (unknown) BUN (units unknown) (unknown) (unknown) (no date) (unknown) (unknown) BUN/Creatinine Ratio 21.4 (units unknown) (unknown) (unknown) (no date) (unknown) (unknown) BUN/Creatinine Ratio 22.0 (units unknown) (unknown) (unknown) (no date) (unknown) (unknown) BUN/Creatinine Ratio 23.5 H (units unknown) (unknown) (unknown) (no date) (unknown) (unknown) BUN/Creatinine Ratio (units unknown) (unknown) (unknown) (no date) (unknown) (unknown) Baso # (Auto) 0 (units unknown) (unknown) (unknown) (no date) (unknown) (unknown) Baso # (Auto) (units unknown) (unknown) (unknown) (no date) (unknown) (unknown) Baso % (Auto) 0.1 (units unknown) (unknown) (unknown) (no date) (unknown) (unknown) Baso % (Auto) 0.2 (units unknown) (unknown) (unknown) (no date) (unknown) (unknown) Baso % (Auto) (units unknown) (unknown) (unknown) (no date) (unknown) (unknown) Blood Pressure 94/47 L (units unknown) (unknown) (unknown) (no date) (unknown) (unknown) COVID PCR:Ordered (units unknown) (unknown) (unknown) (no date) (unknown) (unknown) Calcium 7.1 L (units unknown) (unknown) (unknown) (no date) (unknown) (unknown) Calcium 7.4 L (units unknown) (unknown) (unknown) (no date) (unknown) (unknown) Calcium 8.7 (units unknown) (unknown) (unknown) (no date) (unknown) (unknown) Calcium (units unknown) (unknown) (unknown) (no date) (unknown) (unknown) Cannabis hyperemesis syndrome concurrent with and due to cannabis dependence (units unknown) (unknown) (unknown) (no date) (unknown) (unknown) Carbon Dioxide 13 L (units unknown) (unknown) (unknown) (no date) (unknown) (unknown) Carbon Dioxide 19 L (units unknown) (unknown) (unknown) (no date) (unknown) (unknown) Carbon Dioxide 20 L (units unknown) (unknown) (unknown) (no date) (unknown) (unknown) Carbon Dioxide (units unknown) (unknown) (unknown) (no date) (unknown) (unknown) Cardio:? regular rat e and rhythm with no extra sounds or murmurs. (units unknown) (unknown) (unknown) (no date) (unknown) (unknown) Chest:? Breathing without nasal flaring, retractions, or labored, no tachypneic (units unknown) (unknown) (unknown) (no date) (unknown) (unknown) Chloride 104 (units unknown) (unknown) (unknown) (no date) (unknown) (unknown) Chloride 99 (units unknown) (unknown) (unknown) (no date) (unknown) (unknown) Chloride (units unknown) (unknown) (unknown) (no date) (unknown) (unknown) Creatinine 0.50 L (units unknown) (unknown) (unknown) (no date) (unknown) (unknown) Creatinine 0.51 L (units unknown) (unknown) (unknown) (no date) (unknown) (unknown) Creatinine 0.56 (units unknown) (unknown) (unknown) (no date) (unknown) (unknown) Creatinine (units unknown) (unknown) (unknown) (no date) (unknown) (unknown) Cyclic vomiting syndrome (units unknown) (unknown) (unknown) (no date) (unknown) (unknown) DKA (diabetic ketoacidoses) (units unknown) (unknown) (unknown) (no date) (unknown) (unknown) : 1995 Acct:[id number] (units unknown) (unknown) (unknown) (no date) (unknown) (unknown) DVT/VTE prophylaxis: ? Lovenox and SCDs (units unknown) (unknown) (unknown) (no date) (unknown) (unknown) Date of Service: 08/12/22 (units unknown) (unknown) (unknown) (no date) (unknown) (unknown) Diabetes mellitus, type I (units unknown) (unknown) (unknown) (no date) (unknown) (unknown) Eos # (Auto) 0 (units unknown) (unknown) (unknown) (no date) (unknown) (unknown) Eos # (Auto) (units unknown) (unknown) (unknown) (no date) (unknown) (unknown) Eos % (Auto) 0.0 L (units unknown) (unknown) (unknown) (no date) (unknown) (unknown) Eos % (Auto) (units unknown) (unknown) (unknown) (no date) (unknown) (unknown) Estimated GFR > 60 (units unknown) (unknown) (unknown) (no date) (unknown) (unknown) Estimated GFR (units unknown) (unknown) (unknown) (no date) (unknown) (unknown) Ethyl Alcohol < 10 (units unknown) (unknown) (unknown) (no date) (unknown) (unknown) Ethyl Alcohol (units unknown) (unknown) (unknown) (no date) (unknown) (unknown) Exam Narrative: (units unknown) (unknown) (unknown) (no date) (unknown) (unknown) Exam (units unknown) (unknown) (unknown) (no date) (unknown) (unknown) Family History (units unknown) (unknown) (unknown) (no date) (unknown) (unknown) Father Healthy adult (units unknown) (unknown) (unknown) (no date) (unknown) (unknown) Free T4 1.91 (units unknown) (unknown) (unknown) (no date) (unknown) (unknown) Free T4 (units unknown) (unknown) (unknown) (no date) (unknown) (unknown) Gastroparesis (units unknown) (unknown) (unknown) (no date) (unknown) (unknown) General:? Patient is a well-developed, well-nourished in no acute medical (units unknown) (unknown) (unknown) (no date) (unknown) (unknown) Globulin 2.5 (units unknown) (unknown) (unknown) (no date) (unknown) (unknown) Globulin 3.1 (units unknown) (unknown) (unknown) (no date) (unknown) (unknown) Globulin (units unknown) (unknown) (unknown) (no date) (unknown) (unknown) Glucose 217 H D (units unknown) (unknown) (unknown) (no date) (unknown) (unknown) Glucose 91 (units unknown) (unknown) (unknown) (no date) (unknown) (unknown) Glucose 92 (units unknown) (unknown) (unknown) (no date) (unknown) (unknown) Glucose (units unknown) (unknown) (unknown) (no date) (unknown) (unknown) HEENT:? Normocephalic, atraumatic, extraocular muscles intact. Trachea is (units unknown) (unknown) (unknown) (no date) (unknown) (unknown) Hct 27.4 L (units unknown) (unknown) (unknown) (no date) (unknown) (unknown) Hct 34.9 L (units unknown) (unknown) (unknown) (no date) (unknown) (unknown) Hct (units unknown) (unknown) (unknown) (no date) (unknown) (unknown) Hemoglobin A1c Cancelled (units unknown) (unknown) (unknown) (no date) (unknown) (unknown) Hemoglobin A1c (units unknown) (unknown) (unknown) (no date) (unknown) (unknown) Hgb 11.4 L (units unknown) (unknown) (unknown) (no date) (unknown) (unknown) Hgb 9.1 L (units unknown) (unknown) (unknown) (no date) (unknown) (unknown) Hgb (units unknown) (unknown) (unknown) (no date) (unknown) (unknown) However drinks anything more than that, her stomach begins to churn. I (units unknown) (unknown) (unknown) (no date) (unknown) (unknown) Insulin dependent diabetes mellitus (units unknown) (unknown) (unknown) (no date) (unknown) (unknown) Interval history: (units unknown) (unknown) (unknown) (no date) (unknown) (unknown) [address] [address] (units unknown) (unknown) (unknown) (no date) (unknown) (unknown) Ketones 5.09 H (units unknown) (unknown) (unknown) (no date) (unknown) (unknown) Ketones (units unknown) (unknown) (unknown) (no date) (unknown) (unknown) Laboratory Results - last 24 hr (units unknown) (unknown) (unknown) (no date) (unknown) (unknown) Labs (units unknown) (unknown) (unknown) (no date) (unknown) (unknown) Labs: (units unknown) (unknown) (unknown) (no date) (unknown) (unknown) Lactate 0.7 (units unknown) (unknown) (unknown) (no date) (unknown) (unknown) Lactate 2.3 H (units unknown) (unknown) (unknown) (no date) (unknown) (unknown) Lactate (units unknown) (unknown) (unknown) (no date) (unknown) (unknown) Lipase 24 (units unknown) (unknown) (unknown) (no date) (unknown) (unknown) Lipase (units unknown) (unknown) (unknown) (no date) (unknown) (unknown) Lungs:? Auscultation of all lung hendricks are clear without adventitious sounds, (units unknown) (unknown) (unknown) (no date) (unknown) (unknown) Lymph # (Auto) 2100 (units unknown) (unknown) (unknown) (no date) (unknown) (unknown) Lymph # (Auto) 3200 (units unknown) (unknown) (unknown) (no date) (unknown) (unknown) Lymph # (Auto) (units unknown) (unknown) (unknown) (no date) (unknown) (unknown) Lymph % (Auto) 17.3 L (units unknown) (unknown) (unknown) (no date) (unknown) (unknown) Lymph % (Auto) 17.7 L (units unknown) (unknown) (unknown) (no date) (unknown) (unknown) Lymph % (Auto) (units unknown) (unknown) (unknown) (no date) (unknown) (unknown) MAP<70, BP <90/60, B P >180/105, Temp>102 (units unknown) (unknown) (unknown) (no date) (unknown) (unknown) MCH 25.5 L (units unknown) (unknown) (unknown) (no date) (unknown) (unknown) MCH 25.6 L (units unknown) (unknown) (unknown) (no date) (unknown) (unknown) MCH (units unknown) (unknown) (unknown) (no date) (unknown) (unknown) MCHC 32.7 (units unknown) (unknown) (unknown) (no date) (unknown) (unknown) MCHC 33.1 (units unknown) (unknown) (unknown) (no date) (unknown) (unknown) MCHC (units unknown) (unknown) (unknown) (no date) (unknown) (unknown) MCV 77.4 L (units unknown) (unknown) (unknown) (no date) (unknown) (unknown) MCV 78.0 L (units unknown) (unknown) (unknown) (no date) (unknown) (unknown) MCV (units unknown) (unknown) (unknown) (no date) (unknown) (unknown) Magnesium 1.6 (units unknown) (unknown) (unknown) (no date) (unknown) (unknown) Magnesium 1.8 (units unknown) (unknown) (unknown) (no date) (unknown) (unknown) Magnesium (units unknown) (unknown) (unknown) (no date) (unknown) (unknown) Medical History (Updated 08/12/22 @ 02:17 by Gracia Smith [facility]) (units unknown) (unknown) (unknown) (no date) (unknown) (unknown) Migraine headache with aura (units unknown) (unknown) (unknown) (no date) (unknown) (unknown) O'Brien # (Auto) 600 (units unknown) (unknown) (unknown) (no date) (unknown) (unknown) O[place]Brien # (Auto) 900 (units unknown) (unknown) (unknown) (no date) (unknown) (unknown) O'Brien # (Auto) (units unknown) (unknown) (unknown) (no date) (unknown) (unknown) O[place]Brien % (Auto) 4.8 (units unknown) (unknown) (unknown) (no date) (unknown) (unknown) O'Brien % (Auto) (units unknown) (unknown) (unknown) (no date) (unknown) (unknown) Mother Hypertension (units unknown) (unknown) (unknown) (no date) (unknown) (unknown) Musculoskeletal:? Muscle strength and tone are equal within normal limits, no (units unknown) (unknown) (unknown) (no date) (unknown) (unknown) Myopia (units unknown) (unknown) (unknown) (no date) (unknown) (unknown) NT-Pro-B Natriuret Pep 609 H (units unknown) (unknown) (unknown) (no date) (unknown) (unknown) NT-Pro-B Natriuret Pep (units unknown) (unknown) (unknown) (no date) (unknown) (unknown) Narrative (units unknown) (unknown) (unknown) (no date) (unknown) (unknown) Neuro:? Alert and orientated x3, strength is +5/5 in all extremities, sensation (units unknown) (unknown) (unknown) (no date) (unknown) (unknown) Neut # (Auto) 60520 H (units unknown) (unknown) (unknown) (no date) (unknown) (unknown) Neut # (Auto) 9500 H (units unknown) (unknown) (unknown) (no date) (unknown) (unknown) Neut # (Auto) (units unknown) (unknown) (unknown) (no date) (unknown) (unknown) Neut % (Auto) 77.4 H (units unknown) (unknown) (unknown) (no date) (unknown) (unknown) Neut % (Auto) 77.7 H (units unknown) (unknown) (unknown) (no date) (unknown) (unknown) Neut % (Auto) (units unknown) (unknown) (unknown) (no date) (unknown) (unknown) Objective (units unknown) (unknown) (unknown) (no date) (unknown) (unknown) Oxygen Delivery Method Room Air (units unknown) (unknown) (unknown) (no date) (unknown) (unknown) Oxygen Flow Rate 0 (units unknown) (unknown) (unknown) (no date) (unknown) (unknown) PFSH (units unknown) (unknown) (unknown) (no date) (unknown) (unknown) Pancreatitis (units unknown) (unknown) (unknown) (no date) (unknown) (unknown) Patient is starting to feel better. Able to tolerate some mouth fulls of water. (units unknown) (unknown) (unknown) (no date) (unknown) (unknown) Patient: Kaur Horton MR (units unknown) (unknown) (unknown) (no date) (unknown) (unknown) Phosphorus 3.1 (units unknown) (unknown) (unknown) (no date) (unknown) (unknown) Phosphorus (units unknown) (unknown) (unknown) (no date) (unknown) (unknown) Plt Count 234 (units unknown) (unknown) (unknown) (no date) (unknown) (unknown) Plt Count 317 (units unknown) (unknown) (unknown) (no date) (unknown) (unknown) Plt Count (units unknown) (unknown) (unknown) (no date) (unknown) (unknown) Potassium 2.8 L (units unknown) (unknown) (unknown) (no date) (unknown) (unknown) Potassium 3.3 L (units unknown) (unknown) (unknown) (no date) (unknown) (unknown) Potassium 3.4 (units unknown) (unknown) (unknown) (no date) (unknown) (unknown) Potassium (units unknown) (unknown) (unknown) (no date) (unknown) (unknown) Procalcitonin 0.19 (units unknown) (unknown) (unknown) (no date) (unknown) (unknown) Procalcitonin (units unknown) (unknown) (unknown) (no date) (unknown) (unknown) Progress Note (units unknown) (unknown) (unknown) (no date) (unknown) (unknown) Provider: Nicole Robins MD (units unknown) (unknown) (unknown) (no date) (unknown) (unknown) Psych:? Patient has a well-kept appearance, appropriate affect, mental status (units unknown) (unknown) (unknown) (no date) (unknown) (unknown) Pulse Oximetry 98 (units unknown) (unknown) (unknown) (no date) (unknown) (unknown) Pulse Rate 100 H (units unknown) (unknown) (unknown) (no date) (unknown) (unknown) RBC 3.54 L (units unknown) (unknown) (unknown) (no date) (unknown) (unknown) RBC 4.47 (units unknown) (unknown) (unknown) (no date) (unknown) (unknown) RBC (units unknown) (unknown) (unknown) (no date) (unknown) (unknown) RDW 15.5 H (units unknown) (unknown) (unknown) (no date) (unknown) (unknown) RDW 15.9 H (units unknown) (unknown) (unknown) (no date) (unknown) (unknown) RDW (units unknown) (unknown) (unknown) (no date) (unknown) (unknown) Respiratory Rate 18 (units unknown) (unknown) (unknown) (no date) (unknown) (unknown) SARS-CoV-2 (PCR) Negative (units unknown) (unknown) (unknown) (no date) (unknown) (unknown) SARS-CoV-2 (PCR) (units unknown) (unknown) (unknown) (no date) (unknown) (unknown) Salicylates < 1.0 (units unknown) (unknown) (unknown) (no date) (unknown) (unknown) Salicylates (units unknown) (unknown) (unknown) (no date) (unknown) (unknown) Serum , Sushil l Negative (units unknown) (unknown) (unknown) (no date) (unknown) (unknown) Serum , Qual (units unknown) (unknown) (unknown) (no date) (unknown) (unknown) Signed By: (units unknown) (unknown) (unknown) (no date) (unknown) (unknown) Skin:? Warm dry and intact without rashes, ulcerations or petechiae.? (units unknown) (unknown) (unknown) (no date) (unknown) (unknown) Smoking Status: Current every day smoker (units unknown) (unknown) (unknown) (no date) (unknown) (unknown) Social History (units unknown) (unknown) (unknown) (no date) (unknown) (unknown) Sodium 135 L (units unknown) (unknown) (unknown) (no date) (unknown) (unknown) Sodium 136 L (units unknown) (unknown) (unknown) (no date) (unknown) (unknown) Sodium 138 (units unknown) (unknown) (unknown) (no date) (unknown) (unknown) Sodium (units unknown) (unknown) (unknown) (no date) (unknown) (unknown) Status post appendectomy (units unknown) (unknown) (unknown) (no date) (unknown) (unknown) Subjective (units unknown) (unknown) (unknown) (no date) (unknown) (unknown) Surgical History (units unknown) (unknown) (unknown) (no date) (unknown) (unknown) Surrogate decision maker:? Spouse Khoa (units unknown) (unknown) (unknown) (no date) (unknown) (unknown) TSH 0.34 L (units unknown) (unknown) (unknown) (no date) (unknown) (unknown) TSH (units unknown) (unknown) (unknown) (no date) (unknown) (unknown) Temperature 98.3 F (units unknown) (unknown) (unknown) (no date) (unknown) (unknown) Total Bilirubin 0.6 (units unknown) (unknown) (unknown) (no date) (unknown) (unknown) Total Bilirubin 1.0 (units unknown) (unknown) (unknown) (no date) (unknown) (unknown) Total Bilirubin (units unknown) (unknown) (unknown) (no date) (unknown) (unknown) Total Protein 6.3 (units unknown) (unknown) (unknown) (no date) (unknown) (unknown) Total Protein 7.8 (units unknown) (unknown) (unknown) (no date) (unknown) (unknown) Total Protein (units unknown) (unknown) (unknown) (no date) (unknown) (unknown) Troponin I < 0.012 (units unknown) (unknown) (unknown) (no date) (unknown) (unknown) Troponin I (units unknown) (unknown) (unknown) (no date) (unknown) (unknown) UTI/pyelonephritis, with intractable nausea vomiting, acute, present on (units unknown) (unknown) (unknown) (no date) (unknown) (unknown) Vital Signs (units unknown) (unknown) (unknown) (no date) (unknown) (unknown) WBC 12.2 H (units unknown) (unknown) (unknown) (no date) (unknown) (unknown) WBC 18.1 H (units unknown) (unknown) (unknown) (no date) (unknown) (unknown) WBC (units unknown) (unknown) (unknown) (no date) (unknown) (unknown) [Embedded Image Not Available] (units unknown) (unknown) (unknown) (no date) (unknown) (unknown) admission (units unknown) (unknown) (unknown) (no date) (unknown) (unknown) alcohol intake: never (units unknown) (unknown) (unknown) (no date) (unknown) (unknown) alter based on cultures (units unknown) (unknown) (unknown) (no date) (unknown) (unknown) attitude thought context and judgment are appropriate for age. (units unknown) (unknown) (unknown) (no date) (unknown) (unknown) complications in relation to acute illness/chronic illness.? This increases the (units unknown) (unknown) (unknown) (no date) (unknown) (unknown) criteria, Anion Gap 20-monitor for septic shock/DKA (units unknown) (unknown) (unknown) (no date) (unknown) (unknown) deformity, crepitus, effusions, cyanosis, clubbing or edema present.? Full range (units unknown) (unknown) (unknown) (no date) (unknown) (unknown) difficulty in complexity of medical management and increases the chances poor (units unknown) (unknown) (unknown) (no date) (unknown) (unknown) discussed with her that I will give her regular doses of an anti nausea (units unknown) (unknown) (unknown) (no date) (unknown) (unknown) distress. (units unknown) (unknown) (unknown) (no date) (unknown) (unknown) gastroparesis, chronic, present on admission (units unknown) (unknown) (unknown) (no date) (unknown) (unknown) guarding or rebound, positive CVA tenderness. (units unknown) (unknown) (unknown) (no date) (unknown) (unknown) household members: spouse (units unknown) (unknown) (unknown) (no date) (unknown) (unknown) immune suppression. (units unknown) (unknown) (unknown) (no date) (unknown) (unknown) in agreement with this. (units unknown) (unknown) (unknown) (no date) (unknown) (unknown) intake and nutrition. (units unknown) (unknown) (unknown) (no date) (unknown) (unknown) medication (Haldol) to try to consistently settled the nausea feeling. She is (units unknown) (unknown) (unknown) (no date) (unknown) (unknown) midline. (units unknown) (unknown) (unknown) (no date) (unknown) (unknown) of motion intact radial and pedal pulses are normal. (units unknown) (unknown) (unknown) (no date) (unknown) (unknown) organomegaly, or masses.? Bowel sounds are present in all 4 quadrants without (units unknown) (unknown) (unknown) (no date) (unknown) (unknown) outcomes such as mortality and morbidity as well as impaired wound healing, and (units unknown) (unknown) (unknown) (no date) (unknown) (unknown) suppositories, IV Zofran (units unknown) (unknown) (unknown) (no date) (unknown) (unknown) to touch intact, no gross deficits noted of cranial nerves. (units unknown) (unknown) (unknown) (no date) (unknown) (unknown) wears an insulin pum p was discontinued per hospital policy. (units unknown) (unknown) (unknown) (no date) (unknown) (unknown) wheezes, rhonchi, or rales. (units unknown) (unknown) Result panel 1635 (unknown) (no date) (unknown) (unknown) (no value) (units unknown) (unknown) (unknown) (no date) (unknown) (unknown) #: [id number] (units unknown) (unknown) (unknown) (no date) (unknown) (unknown) (past 8 hours): (units unknown) (unknown) (unknown) (no date) (unknown) (unknown) - last A1c 2 6.3 -reviewed endocrinology notes (units unknown) (unknown) (unknown) (no date) (unknown) (unknown) -Admit: 98.3?, BP 143/83, HR 123, R 24, O2 saturation 99% (units unknown) (unknown) (unknown) (no date) (unknown) (unknown) -BMI 22.8 (units unknown) (unknown) (unknown) (no date) (unknown) (unknown) -BMP q.4 hours, glucose checks q.2 hours-until gap closed<12 (units unknown) (unknown) (unknown) (no date) (unknown) (unknown) -BNP q.4 hours (units unknown) (unknown) (unknown) (no date) (unknown) (unknown) -ED: BP of 123/77 bu t was tachycardic HR 111, tachypneic RR 21. Now heart rate (units unknown) (unknown) (unknown) (no date) (unknown) (unknown) -Haldol 0.5 schedule d as a regular dose every 4 hours (this is the most (units unknown) (unknown) (unknown) (no date) (unknown) (unknown) -UA positive for UTI , urine culture E coli with wide sensitivity, blood culture (units unknown) (unknown) (unknown) (no date) (unknown) (unknown) -V/SQ 1 hour x4 if stable may change to q.4 hours:? Notify for HR>120, RR>36, (units unknown) (unknown) (unknown) (no date) (unknown) (unknown) -WBC 18.1, neutrophils 14,000, lactate 2.3 patient meets SIRS severe sepsis (units unknown) (unknown) (unknown) (no date) (unknown) (unknown) -While vomiting: holding Reglan, protonix- changed to IV protonix (units unknown) (unknown) (unknown) (no date) (unknown) (unknown) -admitted under diabetic protocols, sliding scale for coverage, patient normally (units unknown) (unknown) (unknown) (no date) (unknown) (unknown) -antiemetics, pain control (units unknown) (unknown) (unknown) (no date) (unknown) (unknown) -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 Astudillo (units unknown) (unknown) (unknown) (no date) (unknown) (unknown) -continue phenergan supp (units unknown) (unknown) (unknown) (no date) (unknown) (unknown) -dietary consult ordered to evaluate and implement steps to improve caloric (units unknown) (unknown) (unknown) (no date) (unknown) (unknown) -history cannabis hyperemesis syndrome/cyclic vomiting syndrome (units unknown) (unknown) (unknown) (no date) (unknown) (unknown) -initiated for complicated sepsis UTI meropenem and vancomycin (per up-to date) (units unknown) (unknown) (unknown) (no date) (unknown) (unknown) -on admit initiated sepsis bolus 30 cc/kg per hour (units unknown) (unknown) (unknown) (no date) (unknown) (unknown) -ordered 40 mEq potassium rider (units unknown) (unknown) (unknown) (no date) (unknown) (unknown) -ordered renal ultrasound to check for hydronephrosis -no hydronephrosis but (units unknown) (unknown) (unknown) (no date) (unknown) (unknown) -ordered salicylate, amylase, TSH, troponin, urine osmolality, ETOH, A1C (units unknown) (unknown) (unknown) (no date) (unknown) (unknown) -patient given Rocephin in ED (units unknown) (unknown) (unknown) (no date) (unknown) (unknown) -patient's malnutrition places them at high risk for medical and surgical (units unknown) (unknown) (unknown) (no date) (unknown) (unknown) -potassium 3.3, -ordered 40 mEq potassium rider -potassium normal at 3.4 today (units unknown) (unknown) (unknown) (no date) (unknown) (unknown) -potassium 3.3, bicarb 19, glucose 92, ketones 5.09?anion gap 20, not in DKA (units unknown) (unknown) (unknown) (no date) (unknown) (unknown) -potassium goal: 4-5 (units unknown) (unknown) (unknown) (no date) (unknown) (unknown) -strict I+O, notify for UOP< 50 cc/HR (units unknown) (unknown) (unknown) (no date) (unknown) (unknown) -to be followed by N S at 100 cc/HR (units unknown) (unknown) (unknown) (no date) (unknown) (unknown) -will dose Humalog per patient's personal dosing schedule. (units unknown) (unknown) (unknown) (no date) (unknown) (unknown) 00:06 00:06 00:06 (units unknown) (unknown) (unknown) (no date) (unknown) (unknown) 00:06 00:06 00:30 (units unknown) (unknown) (unknown) (no date) (unknown) (unknown) 02:15 02:15 02:15 (units unknown) (unknown) (unknown) (no date) (unknown) (unknown) 02:15 02:15 04:53 (units unknown) (unknown) (unknown) (no date) (unknown) (unknown) 08/12/22 02:15 (units unknown) (unknown) (unknown) (no date) (unknown) (unknown) 08/12/22 08/12/22 08/12/22 (units unknown) (unknown) (unknown) (no date) (unknown) (unknown) 08/12/22 04:53 (units unknown) (unknown) (unknown) (no date) (unknown) (unknown) 08/12/22 1643 (units unknown) (unknown) (unknown) (no date) (unknown) (unknown) 08/12/22 (units unknown) (unknown) (unknown) (no date) (unknown) (unknown) 1. Lactic acidosis sepsis (metabolic) without septic shock due to (units unknown) (unknown) (unknown) (no date) (unknown) (unknown) 100 and respiratory rate 18 blood pressure 94/47 (units unknown) (unknown) (unknown) (no date) (unknown) (unknown) 11:40 (units unknown) (unknown) (unknown) (no date) (unknown) (unknown) 2. 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 Hypokalemia, acute, secondary to volume loss N/V, present on admission (units unknown) (unknown) (unknown) (no date) (unknown) (unknown) 4. Malnutrition, mild, acute on chronic, present on admission (units unknown) (unknown) (unknown) (no date) (unknown) (unknown) ?Code status:? DNR DNI via patient wishes documented in chart 01/2022 (units unknown) (unknown) (unknown) (no date) (unknown) (unknown) ALT 14 (units unknown) (unknown) (unknown) (no date) (unknown) (unknown) ALT 20 (units unknown) (unknown) (unknown) (no date) (unknown) (unknown) ALT (units unknown) (unknown) (unknown) (no date) (unknown) (unknown) AST 25 (units unknown) (unknown) (unknown) (no date) (unknown) (unknown) AST 31 (units unknown) (unknown) (unknown) (no date) (unknown) (unknown) AST (units unknown) (unknown) (unknown) (no date) (unknown) (unknown) Abdomen:? Soft diffuse generalized minimal tenderness, negative for (units unknown) (unknown) (unknown) (no date) (unknown) (unknown) Age/Sex: 27 / F (units unknown) (unknown) (unknown) (no date) (unknown) (unknown) Albumin 3.8 (units unknown) (unknown) (unknown) (no date) (unknown) (unknown) Albumin 4.7 (units unknown) (unknown) (unknown) (no date) (unknown) (unknown) Albumin (units unknown) (unknown) (unknown) (no date) (unknown) (unknown) Albumin/Globulin Ratio 1.5 (units unknown) (unknown) (unknown) (no date) (unknown) (unknown) Albumin/Globulin Ratio (units unknown) (unknown) (unknown) (no date) (unknown) (unknown) Alkaline Phosphatase 115 (units unknown) (unknown) (unknown) (no date) (unknown) (unknown) Alkaline Phosphatase 99 (units unknown) (unknown) (unknown) (no date) (unknown) (unknown) Alkaline Phosphatase (units unknown) (unknown) (unknown) (no date) (unknown) (unknown) Amylase 38 (units unknown) (unknown) (unknown) (no date) (unknown) (unknown) Amylase (units unknown) (unknown) (unknown) (no date) (unknown) (unknown) Anemia (units unknown) (unknown) (unknown) (no date) (unknown) (unknown) Assessment + Plan narrative: (units unknown) (unknown) (unknown) (no date) (unknown) (unknown) Assessment + Plan (units unknown) (unknown) (unknown) (no date) (unknown) (unknown) BUN 11 (units unknown) (unknown) (unknown) (no date) (unknown) (unknown) BUN 12 (units unknown) (unknown) (unknown) (no date) (unknown) (unknown) BUN (units unknown) (unknown) (unknown) (no date) (unknown) (unknown) BUN/Creatinine Ratio 21.4 (units unknown) (unknown) (unknown) (no date) (unknown) (unknown) BUN/Creatinine Ratio 22.0 (units unknown) (unknown) (unknown) (no date) (unknown) (unknown) BUN/Creatinine Ratio 23.5 H (units unknown) (unknown) (unknown) (no date) (unknown) (unknown) BUN/Creatinine Ratio (units unknown) (unknown) (unknown) (no date) (unknown) (unknown) Baso # (Auto) 0 (units unknown) (unknown) (unknown) (no date) (unknown) (unknown) Baso # (Auto) (units unknown) (unknown) (unknown) (no date) (unknown) (unknown) Baso % (Auto) 0.1 (units unknown) (unknown) (unknown) (no date) (unknown) (unknown) Baso % (Auto) 0.2 (units unknown) (unknown) (unknown) (no date) (unknown) (unknown) Baso % (Auto) (units unknown) (unknown) (unknown) (no date) (unknown) (unknown) Blood Pressure 94/47 L (units unknown) (unknown) (unknown) (no date) (unknown) (unknown) COVID PCR:Ordered (units unknown) (unknown) (unknown) (no date) (unknown) (unknown) Calcium 7.1 L (units unknown) (unknown) (unknown) (no date) (unknown) (unknown) Calcium 7.4 L (units unknown) (unknown) (unknown) (no date) (unknown) (unknown) Calcium 8.7 (units unknown) (unknown) (unknown) (no date) (unknown) (unknown) Calcium (units unknown) (unknown) (unknown) (no date) (unknown) (unknown) Cannabis hyperemesis syndrome concurrent with and due to cannabis dependence (units unknown) (unknown) (unknown) (no date) (unknown) (unknown) Carbon Dioxide 13 L (units unknown) (unknown) (unknown) (no date) (unknown) (unknown) Carbon Dioxide 19 L (units unknown) (unknown) (unknown) (no date) (unknown) (unknown) Carbon Dioxide 20 L (units unknown) (unknown) (unknown) (no date) (unknown) (unknown) Carbon Dioxide (units unknown) (unknown) (unknown) (no date) (unknown) (unknown) Cardio:? regular rat e and rhythm with no extra sounds or murmurs. (units unknown) (unknown) (unknown) (no date) (unknown) (unknown) Chest:? Breathing without nasal flaring, retractions, or labored, no tachypneic (units unknown) (unknown) (unknown) (no date) (unknown) (unknown) Chloride 104 (units unknown) (unknown) (unknown) (no date) (unknown) (unknown) Chloride 99 (units unknown) (unknown) (unknown) (no date) (unknown) (unknown) Chloride (units unknown) (unknown) (unknown) (no date) (unknown) (unknown) Creatinine 0.50 L (units unknown) (unknown) (unknown) (no date) (unknown) (unknown) Creatinine 0.51 L (units unknown) (unknown) (unknown) (no date) (unknown) (unknown) Creatinine 0.56 (units unknown) (unknown) (unknown) (no date) (unknown) (unknown) Creatinine (units unknown) (unknown) (unknown) (no date) (unknown) (unknown) Cyclic vomiting syndrome (units unknown) (unknown) (unknown) (no date) (unknown) (unknown) DKA (diabetic ketoacidoses) (units unknown) (unknown) (unknown) (no date) (unknown) (unknown) : 1995 Acct:[id number] (units unknown) (unknown) (unknown) (no date) (unknown) (unknown) DVT/VTE prophylaxis: ? Lovenox and SCDs (units unknown) (unknown) (unknown) (no date) (unknown) (unknown) Date of Service: 08/12/22 (units unknown) (unknown) (unknown) (no date) (unknown) (unknown) Diabetes mellitus, type I (units unknown) (unknown) (unknown) (no date) (unknown) (unknown) Eos # (Auto) 0 (units unknown) (unknown) (unknown) (no date) (unknown) (unknown) Eos # (Auto) (units unknown) (unknown) (unknown) (no date) (unknown) (unknown) Eos % (Auto) 0.0 L (units unknown) (unknown) (unknown) (no date) (unknown) (unknown) Eos % (Auto) (units unknown) (unknown) (unknown) (no date) (unknown) (unknown) Estimated GFR > 60 (units unknown) (unknown) (unknown) (no date) (unknown) (unknown) Estimated GFR (units unknown) (unknown) (unknown) (no date) (unknown) (unknown) Ethyl Alcohol < 10 (units unknown) (unknown) (unknown) (no date) (unknown) (unknown) Ethyl Alcohol (units unknown) (unknown) (unknown) (no date) (unknown) (unknown) Exam Narrative: (units unknown) (unknown) (unknown) (no date) (unknown) (unknown) Exam (units unknown) (unknown) (unknown) (no date) (unknown) (unknown) Family History (units unknown) (unknown) (unknown) (no date) (unknown) (unknown) Father Healthy adult (units unknown) (unknown) (unknown) (no date) (unknown) (unknown) Follow labs and clinically. (units unknown) (unknown) (unknown) (no date) (unknown) (unknown) Free T4 1.91 (units unknown) (unknown) (unknown) (no date) (unknown) (unknown) Free T4 (units unknown) (unknown) (unknown) (no date) (unknown) (unknown) Gastroparesis (units unknown) (unknown) (unknown) (no date) (unknown) (unknown) General:? Patient is a well-developed, well-nourished in no acute medical (units unknown) (unknown) (unknown) (no date) (unknown) (unknown) Globulin 2.5 (units unknown) (unknown) (unknown) (no date) (unknown) (unknown) Globulin 3.1 (units unknown) (unknown) (unknown) (no date) (unknown) (unknown) Globulin (units unknown) (unknown) (unknown) (no date) (unknown) (unknown) Glucose 217 H D (units unknown) (unknown) (unknown) (no date) (unknown) (unknown) Glucose 91 (units unknown) (unknown) (unknown) (no date) (unknown) (unknown) Glucose 92 (units unknown) (unknown) (unknown) (no date) (unknown) (unknown) Glucose (units unknown) (unknown) (unknown) (no date) (unknown) (unknown) HEENT:? Normocephalic, atraumatic, extraocular muscles intact. Trachea is (units unknown) (unknown) (unknown) (no date) (unknown) (unknown) Hct 27.4 L (units unknown) (unknown) (unknown) (no date) (unknown) (unknown) Hct 34.9 L (units unknown) (unknown) (unknown) (no date) (unknown) (unknown) Hct (units unknown) (unknown) (unknown) (no date) (unknown) (unknown) Hemoglobin A1c Cancelled (units unknown) (unknown) (unknown) (no date) (unknown) (unknown) Hemoglobin A1c (units unknown) (unknown) (unknown) (no date) (unknown) (unknown) Hgb 11.4 L (units unknown) (unknown) (unknown) (no date) (unknown) (unknown) Hgb 9.1 L (units unknown) (unknown) (unknown) (no date) (unknown) (unknown) Hgb (units unknown) (unknown) (unknown) (no date) (unknown) (unknown) However drinks anything more than that, her stomach begins to churn. I (units unknown) (unknown) (unknown) (no date) (unknown) (unknown) Insulin dependent diabetes mellitus (units unknown) (unknown) (unknown) (no date) (unknown) (unknown) Interval history: (units unknown) (unknown) (unknown) (no date) (unknown) (unknown) [address] [id number] (units unknown) (unknown) (unknown) (no date) (unknown) (unknown) Ketones 5.09 H (units unknown) (unknown) (unknown) (no date) (unknown) (unknown) Ketones (units unknown) (unknown) (unknown) (no date) (unknown) (unknown) Laboratory Results - last 24 hr (units unknown) (unknown) (unknown) (no date) (unknown) (unknown) Labs (units unknown) (unknown) (unknown) (no date) (unknown) (unknown) Labs: (units unknown) (unknown) (unknown) (no date) (unknown) (unknown) Lactate 0.7 (units unknown) (unknown) (unknown) (no date) (unknown) (unknown) Lactate 2.3 H (units unknown) (unknown) (unknown) (no date) (unknown) (unknown) Lactate (units unknown) (unknown) (unknown) (no date) (unknown) (unknown) Lipase 24 (units unknown) (unknown) (unknown) (no date) (unknown) (unknown) Lipase (units unknown) (unknown) (unknown) (no date) (unknown) (unknown) Lungs:? Auscultation of all lung hendricks are clear without adventitious sounds, (units unknown) (unknown) (unknown) (no date) (unknown) (unknown) Lymph # (Auto) 2100 (units unknown) (unknown) (unknown) (no date) (unknown) (unknown) Lymph # (Auto) 3200 (units unknown) (unknown) (unknown) (no date) (unknown) (unknown) Lymph # (Auto) (units unknown) (unknown) (unknown) (no date) (unknown) (unknown) Lymph % (Auto) 17.3 L (units unknown) (unknown) (unknown) (no date) (unknown) (unknown) Lymph % (Auto) 17.7 L (units unknown) (unknown) (unknown) (no date) (unknown) (unknown) Lymph % (Auto) (units unknown) (unknown) (unknown) (no date) (unknown) (unknown) MAP<70, BP <90/60, B P >180/105, Temp>102 (units unknown) (unknown) (unknown) (no date) (unknown) (unknown) MCH 25.5 L (units unknown) (unknown) (unknown) (no date) (unknown) (unknown) MCH 25.6 L (units unknown) (unknown) (unknown) (no date) (unknown) (unknown) MCH (units unknown) (unknown) (unknown) (no date) (unknown) (unknown) MCHC 32.7 (units unknown) (unknown) (unknown) (no date) (unknown) (unknown) MCHC 33.1 (units unknown) (unknown) (unknown) (no date) (unknown) (unknown) MCHC (units unknown) (unknown) (unknown) (no date) (unknown) (unknown) MCV 77.4 L (units unknown) (unknown) (unknown) (no date) (unknown) (unknown) MCV 78.0 L (units unknown) (unknown) (unknown) (no date) (unknown) (unknown) MCV (units unknown) (unknown) (unknown) (no date) (unknown) (unknown) Magnesium 1.6 (units unknown) (unknown) (unknown) (no date) (unknown) (unknown) Magnesium 1.8 (units unknown) (unknown) (unknown) (no date) (unknown) (unknown) Magnesium (units unknown) (unknown) (unknown) (no date) (unknown) (unknown) Medical History (Updated 08/12/22 @ 02:17 by Gracia Smith [facility]) (units unknown) (unknown) (unknown) (no date) (unknown) (unknown) Migraine headache with aura (units unknown) (unknown) (unknown) (no date) (unknown) (unknown) O'Brien # (Auto) 600 (units unknown) (unknown) (unknown) (no date) (unknown) (unknown) O'Brien # (Auto) 900 (units unknown) (unknown) (unknown) (no date) (unknown) (unknown) O'Brien # (Auto) (units unknown) (unknown) (unknown) (no date) (unknown) (unknown) O'Brien % (Auto) 4.8 (units unknown) (unknown) (unknown) (no date) (unknown) (unknown) O'Brien % (Auto) (units unknown) (unknown) (unknown) (no date) (unknown) (unknown) Mother Hypertension (units unknown) (unknown) (unknown) (no date) (unknown) (unknown) Musculoskeletal:? Muscle strength and tone are equal within normal limits, no (units unknown) (unknown) (unknown) (no date) (unknown) (unknown) Myopia (units unknown) (unknown) (unknown) (no date) (unknown) (unknown) NT-Pro-B Natriuret Pep 609 H (units unknown) (unknown) (unknown) (no date) (unknown) (unknown) NT-Pro-B Natriuret Pep (units unknown) (unknown) (unknown) (no date) (unknown) (unknown) Narrative (units unknown) (unknown) (unknown) (no date) (unknown) (unknown) Neuro:? Alert and orientated x3, strength is +5/5 in all extremities, sensation (units unknown) (unknown) (unknown) (no date) (unknown) (unknown) Neut # (Auto) 28877 H (units unknown) (unknown) (unknown) (no date) (unknown) (unknown) Neut # (Auto) 9500 H (units unknown) (unknown) (unknown) (no date) (unknown) (unknown) Neut # (Auto) (units unknown) (unknown) (unknown) (no date) (unknown) (unknown) Neut % (Auto) 77.4 H (units unknown) (unknown) (unknown) (no date) (unknown) (unknown) Neut % (Auto) 77.7 H (units unknown) (unknown) (unknown) (no date) (unknown) (unknown) Neut % (Auto) (units unknown) (unknown) (unknown) (no date) (unknown) (unknown) Objective (units unknown) (unknown) (unknown) (no date) (unknown) (unknown) Oxygen Delivery Method Room Air (units unknown) (unknown) (unknown) (no date) (unknown) (unknown) Oxygen Flow Rate 0 (units unknown) (unknown) (unknown) (no date) (unknown) (unknown) PFSH (units unknown) (unknown) (unknown) (no date) (unknown) (unknown) Pancreatitis (units unknown) (unknown) (unknown) (no date) (unknown) (unknown) Patient is starting to feel better. Able to tolerate some mouth fulls of water. (units unknown) (unknown) (unknown) (no date) (unknown) (unknown) Patient: Kaur Horton MR (units unknown) (unknown) (unknown) (no date) (unknown) (unknown) Phosphorus 3.1 (units unknown) (unknown) (unknown) (no date) (unknown) (unknown) Phosphorus (units unknown) (unknown) (unknown) (no date) (unknown) (unknown) Plt Count 234 (units unknown) (unknown) (unknown) (no date) (unknown) (unknown) Plt Count 317 (units unknown) (unknown) (unknown) (no date) (unknown) (unknown) Plt Count (units unknown) (unknown) (unknown) (no date) (unknown) (unknown) Potassium 2.8 L (units unknown) (unknown) (unknown) (no date) (unknown) (unknown) Potassium 3.3 L (units unknown) (unknown) (unknown) (no date) (unknown) (unknown) Potassium 3.4 (units unknown) (unknown) (unknown) (no date) (unknown) (unknown) Potassium (units unknown) (unknown) (unknown) (no date) (unknown) (unknown) Procalcitonin 0.19 (units unknown) (unknown) (unknown) (no date) (unknown) (unknown) Procalcitonin (units unknown) (unknown) (unknown) (no date) (unknown) (unknown) Progress Note (units unknown) (unknown) (unknown) (no date) (unknown) (unknown) Provider: Nicole Robins MD (units unknown) (unknown) (unknown) (no date) (unknown) (unknown) Psych:? Patient has a well-kept appearance, appropriate affect, mental status (units unknown) (unknown) (unknown) (no date) (unknown) (unknown) Pulse Oximetry 98 (units unknown) (unknown) (unknown) (no date) (unknown) (unknown) Pulse Rate 100 H (units unknown) (unknown) (unknown) (no date) (unknown) (unknown) RBC 3.54 L (units unknown) (unknown) (unknown) (no date) (unknown) (unknown) RBC 4.47 (units unknown) (unknown) (unknown) (no date) (unknown) (unknown) RBC (units unknown) (unknown) (unknown) (no date) (unknown) (unknown) RDW 15.5 H (units unknown) (unknown) (unknown) (no date) (unknown) (unknown) RDW 15.9 H (units unknown) (unknown) (unknown) (no date) (unknown) (unknown) RDW (units unknown) (unknown) (unknown) (no date) (unknown) (unknown) Respiratory Rate 18 (units unknown) (unknown) (unknown) (no date) (unknown) (unknown) SARS-CoV-2 (PCR) Negative (units unknown) (unknown) (unknown) (no date) (unknown) (unknown) SARS-CoV-2 (PCR) (units unknown) (unknown) (unknown) (no date) (unknown) (unknown) Salicylates < 1.0 (units unknown) (unknown) (unknown) (no date) (unknown) (unknown) Salicylates (units unknown) (unknown) (unknown) (no date) (unknown) (unknown) Serum , Sushil l Negative (units unknown) (unknown) (unknown) (no date) (unknown) (unknown) Serum , Qual (units unknown) (unknown) (unknown) (no date) (unknown) (unknown) Signed By:<Electronically signed by Nicole Robins MD> (units unknown) (unknown) (unknown) (no date) (unknown) (unknown) Skin:? Warm dry and intact without rashes, ulcerations or petechiae.? (units unknown) (unknown) (unknown) (no date) (unknown) (unknown) Smoking Status: Current every day smoker (units unknown) (unknown) (unknown) (no date) (unknown) (unknown) Social History (units unknown) (unknown) (unknown) (no date) (unknown) (unknown) Sodium 135 L (units unknown) (unknown) (unknown) (no date) (unknown) (unknown) Sodium 136 L (units unknown) (unknown) (unknown) (no date) (unknown) (unknown) Sodium 138 (units unknown) (unknown) (unknown) (no date) (unknown) (unknown) Sodium (units unknown) (unknown) (unknown) (no date) (unknown) (unknown) Status post appendectomy (units unknown) (unknown) (unknown) (no date) (unknown) (unknown) Subjective (units unknown) (unknown) (unknown) (no date) (unknown) (unknown) Surgical History (units unknown) (unknown) (unknown) (no date) (unknown) (unknown) Surrogate decision maker:? Spouse Khoa (units unknown) (unknown) (unknown) (no date) (unknown) (unknown) TSH 0.34 L (units unknown) (unknown) (unknown) (no date) (unknown) (unknown) TSH (units unknown) (unknown) (unknown) (no date) (unknown) (unknown) Temperature 98.3 F (units unknown) (unknown) (unknown) (no date) (unknown) (unknown) Total Bilirubin 0.6 (units unknown) (unknown) (unknown) (no date) (unknown) (unknown) Total Bilirubin 1.0 (units unknown) (unknown) (unknown) (no date) (unknown) (unknown) Total Bilirubin (units unknown) (unknown) (unknown) (no date) (unknown) (unknown) Total Protein 6.3 (units unknown) (unknown) (unknown) (no date) (unknown) (unknown) Total Protein 7.8 (units unknown) (unknown) (unknown) (no date) (unknown) (unknown) Total Protein (units unknown) (unknown) (unknown) (no date) (unknown) (unknown) Troponin I < 0.012 (units unknown) (unknown) (unknown) (no date) (unknown) (unknown) Troponin I (units unknown) (unknown) (unknown) (no date) (unknown) (unknown) UTI/pyelonephritis, with intractable nausea vomiting, acute, present on (units unknown) (unknown) (unknown) (no date) (unknown) (unknown) Vital Signs (units unknown) (unknown) (unknown) (no date) (unknown) (unknown) WBC 12.2 H (units unknown) (unknown) (unknown) (no date) (unknown) (unknown) WBC 18.1 H (units unknown) (unknown) (unknown) (no date) (unknown) (unknown) WBC (units unknown) (unknown) (unknown) (no date) (unknown) (unknown) [Embedded Image Not Available] (units unknown) (unknown) (unknown) (no date) (unknown) (unknown) admission (units unknown) (unknown) (unknown) (no date) (unknown) (unknown) alcohol intake: never (units unknown) (unknown) (unknown) (no date) (unknown) (unknown) alter based on cultures (units unknown) (unknown) (unknown) (no date) (unknown) (unknown) attitude thought context and judgment are appropriate for age. (units unknown) (unknown) (unknown) (no date) (unknown) (unknown) complications in relation to acute illness/chronic illness.? This increases the (units unknown) (unknown) (unknown) (no date) (unknown) (unknown) criteria, Anion Gap 20-monitor for septic shock/DKA (units unknown) (unknown) (unknown) (no date) (unknown) (unknown) cultures are negativ e can switch to an oral medication for the urinary tract (units unknown) (unknown) (unknown) (no date) (unknown) (unknown) deformity, crepitus, effusions, cyanosis, clubbing or edema present.? Full range (units unknown) (unknown) (unknown) (no date) (unknown) (unknown) difficulty in complexity of medical management and increases the chances poor (units unknown) (unknown) (unknown) (no date) (unknown) (unknown) discussed with her that I will give her regular doses of an anti nausea (units unknown) (unknown) (unknown) (no date) (unknown) (unknown) distress. (units unknown) (unknown) (unknown) (no date) (unknown) (unknown) effective antiemetic for cyclic vomiting), in addition to Phenergan (units unknown) (unknown) (unknown) (no date) (unknown) (unknown) gastroparesis, chronic, present on admission (units unknown) (unknown) (unknown) (no date) (unknown) (unknown) guarding or rebound, positive CVA tenderness. (units unknown) (unknown) (unknown) (no date) (unknown) (unknown) household members: spouse (units unknown) (unknown) (unknown) (no date) (unknown) (unknown) immune suppression. (units unknown) (unknown) (unknown) (no date) (unknown) (unknown) in agreement with this. (units unknown) (unknown) (unknown) (no date) (unknown) (unknown) infection (units unknown) (unknown) (unknown) (no date) (unknown) (unknown) intake and nutrition. (units unknown) (unknown) (unknown) (no date) (unknown) (unknown) medication (Haldol) to try to consistently settled the nausea feeling. She is (units unknown) (unknown) (unknown) (no date) (unknown) (unknown) midline. (units unknown) (unknown) (unknown) (no date) (unknown) (unknown) noted cholelithiasis (units unknown) (unknown) (unknown) (no date) (unknown) (unknown) of motion intact radial and pedal pulses are normal. (units unknown) (unknown) (unknown) (no date) (unknown) (unknown) organomegaly, or masses.? Bowel sounds are present in all 4 quadrants without (units unknown) (unknown) (unknown) (no date) (unknown) (unknown) outcomes such as mortality and morbidity as well as impaired wound healing, and (units unknown) (unknown) (unknown) (no date) (unknown) (unknown) still pending, continue vancomycin and meropenem until results known, if blood (units unknown) (unknown) (unknown) (no date) (unknown) (unknown) suppositories, IV Zofran as needed (units unknown) (unknown) (unknown) (no date) (unknown) (unknown) to touch intact, no gross deficits noted of cranial nerves. (units unknown) (unknown) (unknown) (no date) (unknown) (unknown) wears an insulin pum p was discontinued per hospital policy. (units unknown) (unknown) (unknown) (no date) (unknown) (unknown) wheezes, rhonchi, or rales. (units unknown) (unknown) Result panel 1636 (unknown) (no date) (unknown) (unknown) (no value) (units unknown) (unknown) (unknown) (no date) (unknown) (unknown) #: [id number] (units unknown) (unknown) (unknown) (no date) (unknown) (unknown) (past 8 hours): (units unknown) (unknown) (unknown) (no date) (unknown) (unknown) ADDENDUM (units unknown) (unknown) (unknown) (no date) (unknown) (unknown) - last A1c 2 6.3 -reviewed endocrinology notes (units unknown) (unknown) (unknown) (no date) (unknown) (unknown) -Admit: 98.3?, BP 143/83, HR 123, R 24, O2 saturation 99% (units unknown) (unknown) (unknown) (no date) (unknown) (unknown) -BMI 22.8 (units unknown) (unknown) (unknown) (no date) (unknown) (unknown) -BMP q.4 hours, glucose checks q.2 hours-until gap closed<12 (units unknown) (unknown) (unknown) (no date) (unknown) (unknown) -BNP q.4 hours (units unknown) (unknown) (unknown) (no date) (unknown) (unknown) -ED: BP of 123/77 bu t was tachycardic HR 111, tachypneic RR 21. Now heart rate (units unknown) (unknown) (unknown) (no date) (unknown) (unknown) -Haldol 0.5 schedule d as a regular dose every 4 hours (this is the most (units unknown) (unknown) (unknown) (no date) (unknown) (unknown) -UA positive for UTI , urine culture E coli with wide sensitivity, blood culture (units unknown) (unknown) (unknown) (no date) (unknown) (unknown) -V/SQ 1 hour x4 if stable may change to q.4 hours:? Notify for HR>120, RR>36, (units unknown) (unknown) (unknown) (no date) (unknown) (unknown) -WBC 18.1, neutrophils 14,000, lactate 2.3 patient meets SIRS severe sepsis (units unknown) (unknown) (unknown) (no date) (unknown) (unknown) -While vomiting: holding Reglan, protonix- changed to IV protonix (units unknown) (unknown) (unknown) (no date) (unknown) (unknown) -admitted under diabetic protocols, sliding scale for coverage, patient normally (units unknown) (unknown) (unknown) (no date) (unknown) (unknown) -antiemetics, pain control (units unknown) (unknown) (unknown) (no date) (unknown) (unknown) -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 Astudillo (units unknown) (unknown) (unknown) (no date) (unknown) (unknown) -continue phenergan supp (units unknown) (unknown) (unknown) (no date) (unknown) (unknown) -dietary consult ordered to evaluate and implement steps to improve caloric (units unknown) (unknown) (unknown) (no date) (unknown) (unknown) -history cannabis hyperemesis syndrome/cyclic vomiting syndrome (units unknown) (unknown) (unknown) (no date) (unknown) (unknown) -initiated for complicated sepsis UTI meropenem and vancomycin (per up-to date) (units unknown) (unknown) (unknown) (no date) (unknown) (unknown) -on admit initiated sepsis bolus 30 cc/kg per hour (units unknown) (unknown) (unknown) (no date) (unknown) (unknown) -ordered 40 mEq potassium rider (units unknown) (unknown) (unknown) (no date) (unknown) (unknown) -ordered renal ultrasound to check for hydronephrosis -no hydronephrosis but (units unknown) (unknown) (unknown) (no date) (unknown) (unknown) -ordered salicylate, amylase, TSH, troponin, urine osmolality, ETOH, A1C (units unknown) (unknown) (unknown) (no date) (unknown) (unknown) -patient given Rocephin in ED (units unknown) (unknown) (unknown) (no date) (unknown) (unknown) -patient's malnutrition places them at high risk for medical and surgical (units unknown) (unknown) (unknown) (no date) (unknown) (unknown) -potassium 3.3, -ordered 40 mEq potassium rider -potassium normal at 3.4 today (units unknown) (unknown) (unknown) (no date) (unknown) (unknown) -potassium 3.3, bicarb 19, glucose 92, ketones 5.09?anion gap 20, not in DKA (units unknown) (unknown) (unknown) (no date) (unknown) (unknown) -potassium goal: 4-5 (units unknown) (unknown) (unknown) (no date) (unknown) (unknown) -strict I+O, notify for UOP< 50 cc/HR (units unknown) (unknown) (unknown) (no date) (unknown) (unknown) -to be followed by N S at 100 cc/HR (units unknown) (unknown) (unknown) (no date) (unknown) (unknown) -will dose Humalog per patient's personal dosing schedule. (units unknown) (unknown) (unknown) (no date) (unknown) (unknown) 00:06 00:06 00:06 (units unknown) (unknown) (unknown) (no date) (unknown) (unknown) 00:06 00:06 00:30 (units unknown) (unknown) (unknown) (no date) (unknown) (unknown) 02:15 02:15 02:15 (units unknown) (unknown) (unknown) (no date) (unknown) (unknown) 02:15 02:15 04:53 (units unknown) (unknown) (unknown) (no date) (unknown) (unknown) 08/12/22 02:15 (units unknown) (unknown) (unknown) (no date) (unknown) (unknown) 08/12/22 08/12/22 08/12/22 (units unknown) (unknown) (unknown) (no date) (unknown) (unknown) 08/12/22 04:53 (units unknown) (unknown) (unknown) (no date) (unknown) (unknown) 08/12/22 1643 (units unknown) (unknown) (unknown) (no date) (unknown) (unknown) 08/12/22 1810 (units unknown) (unknown) (unknown) (no date) (unknown) (unknown) 08/12/22 (units unknown) (unknown) (unknown) (no date) (unknown) (unknown) 1. Lactic acidosis sepsis (metabolic) without septic shock due to (units unknown) (unknown) (unknown) (no date) (unknown) (unknown) 100 and respiratory rate 18 blood pressure 94/47 (units unknown) (unknown) (unknown) (no date) (unknown) (unknown) 11:40 (units unknown) (unknown) (unknown) (no date) (unknown) (unknown) 1810 (units unknown) (unknown) (unknown) (no date) (unknown) (unknown) 2. 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 Hypokalemia, acute, secondary to volume loss N/V, present on admission (units unknown) (unknown) (unknown) (no date) (unknown) (unknown) 4. Malnutrition, mild, acute on chronic, present on admission (units unknown) (unknown) (unknown) (no date) (unknown) (unknown) ?Code status:? DNR DNI via patient wishes documented in chart 01/2022 (units unknown) (unknown) (unknown) (no date) (unknown) (unknown) ALT 14 (units unknown) (unknown) (unknown) (no date) (unknown) (unknown) ALT 20 (units unknown) (unknown) (unknown) (no date) (unknown) (unknown) ALT (units unknown) (unknown) (unknown) (no date) (unknown) (unknown) AST 25 (units unknown) (unknown) (unknown) (no date) (unknown) (unknown) AST 31 (units unknown) (unknown) (unknown) (no date) (unknown) (unknown) AST (units unknown) (unknown) (unknown) (no date) (unknown) (unknown) Abdomen:? Soft diffuse generalized minimal tenderness, negative for (units unknown) (unknown) (unknown) (no date) (unknown) (unknown) Addendum Documented By: Nicole Robins MD (units unknown) (unknown) (unknown) (no date) (unknown) (unknown) Addendum Signed By: <Electronically signed by Nicole Perez (units unknown) (unknown) (unknown) (no date) (unknown) (unknown) Age/Sex: 27 / F (units unknown) (unknown) (unknown) (no date) (unknown) (unknown) Albumin 3.8 (units unknown) (unknown) (unknown) (no date) (unknown) (unknown) Albumin 4.7 (units unknown) (unknown) (unknown) (no date) (unknown) (unknown) Albumin (units unknown) (unknown) (unknown) (no date) (unknown) (unknown) Albumin/Globulin Ratio 1.5 (units unknown) (unknown) (unknown) (no date) (unknown) (unknown) Albumin/Globulin Ratio (units unknown) (unknown) (unknown) (no date) (unknown) (unknown) Alkaline Phosphatase 115 (units unknown) (unknown) (unknown) (no date) (unknown) (unknown) Alkaline Phosphatase 99 (units unknown) (unknown) (unknown) (no date) (unknown) (unknown) Alkaline Phosphatase (units unknown) (unknown) (unknown) (no date) (unknown) (unknown) Amylase 38 (units unknown) (unknown) (unknown) (no date) (unknown) (unknown) Amylase (units unknown) (unknown) (unknown) (no date) (unknown) (unknown) Anemia (units unknown) (unknown) (unknown) (no date) (unknown) (unknown) Assessment + Plan narrative: (units unknown) (unknown) (unknown) (no date) (unknown) (unknown) Assessment + Plan (units unknown) (unknown) (unknown) (no date) (unknown) (unknown) BUN 11 (units unknown) (unknown) (unknown) (no date) (unknown) (unknown) BUN 12 (units unknown) (unknown) (unknown) (no date) (unknown) (unknown) BUN (units unknown) (unknown) (unknown) (no date) (unknown) (unknown) BUN/Creatinine Ratio 21.4 (units unknown) (unknown) (unknown) (no date) (unknown) (unknown) BUN/Creatinine Ratio 22.0 (units unknown) (unknown) (unknown) (no date) (unknown) (unknown) BUN/Creatinine Ratio 23.5 H (units unknown) (unknown) (unknown) (no date) (unknown) (unknown) BUN/Creatinine Ratio (units unknown) (unknown) (unknown) (no date) (unknown) (unknown) Baso # (Auto) 0 (units unknown) (unknown) (unknown) (no date) (unknown) (unknown) Baso # (Auto) (units unknown) (unknown) (unknown) (no date) (unknown) (unknown) Baso % (Auto) 0.1 (units unknown) (unknown) (unknown) (no date) (unknown) (unknown) Baso % (Auto) 0.2 (units unknown) (unknown) (unknown) (no date) (unknown) (unknown) Baso % (Auto) (units unknown) (unknown) (unknown) (no date) (unknown) (unknown) Blood Pressure 94/47 L (units unknown) (unknown) (unknown) (no date) (unknown) (unknown) COVID PCR:Ordered (units unknown) (unknown) (unknown) (no date) (unknown) (unknown) Calcium 7.1 L (units unknown) (unknown) (unknown) (no date) (unknown) (unknown) Calcium 7.4 L (units unknown) (unknown) (unknown) (no date) (unknown) (unknown) Calcium 8.7 (units unknown) (unknown) (unknown) (no date) (unknown) (unknown) Calcium (units unknown) (unknown) (unknown) (no date) (unknown) (unknown) Cannabis hyperemesis syndrome concurrent with and due to cannabis dependence (units unknown) (unknown) (unknown) (no date) (unknown) (unknown) Carbon Dioxide 13 L (units unknown) (unknown) (unknown) (no date) (unknown) (unknown) Carbon Dioxide 19 L (units unknown) (unknown) (unknown) (no date) (unknown) (unknown) Carbon Dioxide 20 L (units unknown) (unknown) (unknown) (no date) (unknown) (unknown) Carbon Dioxide (units unknown) (unknown) (unknown) (no date) (unknown) (unknown) Cardio:? regular rat e and rhythm with no extra sounds or murmurs. (units unknown) (unknown) (unknown) (no date) (unknown) (unknown) Chest:? Breathing without nasal flaring, retractions, or labored, no tachypneic (units unknown) (unknown) (unknown) (no date) (unknown) (unknown) Chloride 104 (units unknown) (unknown) (unknown) (no date) (unknown) (unknown) Chloride 99 (units unknown) (unknown) (unknown) (no date) (unknown) (unknown) Chloride (units unknown) (unknown) (unknown) (no date) (unknown) (unknown) Creatinine 0.50 L (units unknown) (unknown) (unknown) (no date) (unknown) (unknown) Creatinine 0.51 L (units unknown) (unknown) (unknown) (no date) (unknown) (unknown) Creatinine 0.56 (units unknown) (unknown) (unknown) (no date) (unknown) (unknown) Creatinine (units unknown) (unknown) (unknown) (no date) (unknown) (unknown) Cyclic vomiting syndrome (units unknown) (unknown) (unknown) (no date) (unknown) (unknown) DKA (diabetic ketoacidoses) (units unknown) (unknown) (unknown) (no date) (unknown) (unknown) : 1995 Acct:[id number] (units unknown) (unknown) (unknown) (no date) (unknown) (unknown) DVT/VTE prophylaxis: ? Lovenox and SCDs (units unknown) (unknown) (unknown) (no date) (unknown) (unknown) Date of Service: 08/12/22 (units unknown) (unknown) (unknown) (no date) (unknown) (unknown) Diabetes mellitus, type I (units unknown) (unknown) (unknown) (no date) (unknown) (unknown) Eos # (Auto) 0 (units unknown) (unknown) (unknown) (no date) (unknown) (unknown) Eos # (Auto) (units unknown) (unknown) (unknown) (no date) (unknown) (unknown) Eos % (Auto) 0.0 L (units unknown) (unknown) (unknown) (no date) (unknown) (unknown) Eos % (Auto) (units unknown) (unknown) (unknown) (no date) (unknown) (unknown) Estimated GFR > 60 (units unknown) (unknown) (unknown) (no date) (unknown) (unknown) Estimated GFR (units unknown) (unknown) (unknown) (no date) (unknown) (unknown) Ethyl Alcohol < 10 (units unknown) (unknown) (unknown) (no date) (unknown) (unknown) Ethyl Alcohol (units unknown) (unknown) (unknown) (no date) (unknown) (unknown) Exam Narrative: (units unknown) (unknown) (unknown) (no date) (unknown) (unknown) Exam (units unknown) (unknown) (unknown) (no date) (unknown) (unknown) Family History (units unknown) (unknown) (unknown) (no date) (unknown) (unknown) Father Healthy adult (units unknown) (unknown) (unknown) (no date) (unknown) (unknown) Follow labs and clinically. (units unknown) (unknown) (unknown) (no date) (unknown) (unknown) Free T4 1.91 (units unknown) (unknown) (unknown) (no date) (unknown) (unknown) Free T4 (units unknown) (unknown) (unknown) (no date) (unknown) (unknown) Gastroparesis (units unknown) (unknown) (unknown) (no date) (unknown) (unknown) General:? Patient is a well-developed, well-nourished in no acute medical (units unknown) (unknown) (unknown) (no date) (unknown) (unknown) Globulin 2.5 (units unknown) (unknown) (unknown) (no date) (unknown) (unknown) Globulin 3.1 (units unknown) (unknown) (unknown) (no date) (unknown) (unknown) Globulin (units unknown) (unknown) (unknown) (no date) (unknown) (unknown) Glucose 217 H D (units unknown) (unknown) (unknown) (no date) (unknown) (unknown) Glucose 91 (units unknown) (unknown) (unknown) (no date) (unknown) (unknown) Glucose 92 (units unknown) (unknown) (unknown) (no date) (unknown) (unknown) Glucose (units unknown) (unknown) (unknown) (no date) (unknown) (unknown) HEENT:? Normocephalic, atraumatic, extraocular muscles intact. Trachea is (units unknown) (unknown) (unknown) (no date) (unknown) (unknown) Hct 27.4 L (units unknown) (unknown) (unknown) (no date) (unknown) (unknown) Hct 34.9 L (units unknown) (unknown) (unknown) (no date) (unknown) (unknown) Hct (units unknown) (unknown) (unknown) (no date) (unknown) (unknown) Hemoglobin A1c Cancelled (units unknown) (unknown) (unknown) (no date) (unknown) (unknown) Hemoglobin A1c (units unknown) (unknown) (unknown) (no date) (unknown) (unknown) Hgb 11.4 L (units unknown) (unknown) (unknown) (no date) (unknown) (unknown) Hgb 9.1 L (units unknown) (unknown) (unknown) (no date) (unknown) (unknown) Hgb (units unknown) (unknown) (unknown) (no date) (unknown) (unknown) However drinks anything more than that, her stomach begins to churn. I (units unknown) (unknown) (unknown) (no date) (unknown) (unknown) Insulin dependent diabetes mellitus (units unknown) (unknown) (unknown) (no date) (unknown) (unknown) Interval history: (units unknown) (unknown) (unknown) (no date) (unknown) (unknown) [address] [address] (units unknown) (unknown) (unknown) (no date) (unknown) (unknown) Ketones 5.09 H (units unknown) (unknown) (unknown) (no date) (unknown) (unknown) Ketones (units unknown) (unknown) (unknown) (no date) (unknown) (unknown) Laboratory Results - last 24 hr (units unknown) (unknown) (unknown) (no date) (unknown) (unknown) Labs (units unknown) (unknown) (unknown) (no date) (unknown) (unknown) Labs: (units unknown) (unknown) (unknown) (no date) (unknown) (unknown) Lactate 0.7 (units unknown) (unknown) (unknown) (no date) (unknown) (unknown) Lactate 2.3 H (units unknown) (unknown) (unknown) (no date) (unknown) (unknown) Lactate (units unknown) (unknown) (unknown) (no date) (unknown) (unknown) Lipase 24 (units unknown) (unknown) (unknown) (no date) (unknown) (unknown) Lipase (units unknown) (unknown) (unknown) (no date) (unknown) (unknown) Lungs:? Auscultation of all lung hendricks are clear without adventitious sounds, (units unknown) (unknown) (unknown) (no date) (unknown) (unknown) Lymph # (Auto) 2100 (units unknown) (unknown) (unknown) (no date) (unknown) (unknown) Lymph # (Auto) 3200 (units unknown) (unknown) (unknown) (no date) (unknown) (unknown) Lymph # (Auto) (units unknown) (unknown) (unknown) (no date) (unknown) (unknown) Lymph % (Auto) 17.3 L (units unknown) (unknown) (unknown) (no date) (unknown) (unknown) Lymph % (Auto) 17.7 L (units unknown) (unknown) (unknown) (no date) (unknown) (unknown) Lymph % (Auto) (units unknown) (unknown) (unknown) (no date) (unknown) (unknown) MAP<70, BP <90/60, B P >180/105, Temp>102 (units unknown) (unknown) (unknown) (no date) (unknown) (unknown) MCH 25.5 L (units unknown) (unknown) (unknown) (no date) (unknown) (unknown) MCH 25.6 L (units unknown) (unknown) (unknown) (no date) (unknown) (unknown) MCH (units unknown) (unknown) (unknown) (no date) (unknown) (unknown) MCHC 32.7 (units unknown) (unknown) (unknown) (no date) (unknown) (unknown) MCHC 33.1 (units unknown) (unknown) (unknown) (no date) (unknown) (unknown) MCHC (units unknown) (unknown) (unknown) (no date) (unknown) (unknown) MCV 77.4 L (units unknown) (unknown) (unknown) (no date) (unknown) (unknown) MCV 78.0 L (units unknown) (unknown) (unknown) (no date) (unknown) (unknown) MCV (units unknown) (unknown) (unknown) (no date) (unknown) (unknown) Magnesium 1.6 (units unknown) (unknown) (unknown) (no date) (unknown) (unknown) Magnesium 1.8 (units unknown) (unknown) (unknown) (no date) (unknown) (unknown) Magnesium (units unknown) (unknown) (unknown) (no date) (unknown) (unknown) Medical History (Updated 08/12/22 @ 02:17 by Gracia Smith [facility]) (units unknown) (unknown) (unknown) (no date) (unknown) (unknown) Migraine headache with aura (units unknown) (unknown) (unknown) (no date) (unknown) (unknown) O'Brien # (Auto) 600 (units unknown) (unknown) (unknown) (no date) (unknown) (unknown) O'Brien # (Auto) 900 (units unknown) (unknown) (unknown) (no date) (unknown) (unknown) O'Brien # (Auto) (units unknown) (unknown) (unknown) (no date) (unknown) (unknown) O'Brien % (Auto) 4.8 (units unknown) (unknown) (unknown) (no date) (unknown) (unknown) O'Brien % (Auto) (units unknown) (unknown) (unknown) (no date) (unknown) (unknown) Mother Hypertension (units unknown) (unknown) (unknown) (no date) (unknown) (unknown) Musculoskeletal:? Muscle strength and tone are equal within normal limits, no (units unknown) (unknown) (unknown) (no date) (unknown) (unknown) Myopia (units unknown) (unknown) (unknown) (no date) (unknown) (unknown) NT-Pro-B Natriuret Pep 609 H (units unknown) (unknown) (unknown) (no date) (unknown) (unknown) NT-Pro-B Natriuret Pep (units unknown) (unknown) (unknown) (no date) (unknown) (unknown) Narrative (units unknown) (unknown) (unknown) (no date) (unknown) (unknown) Neuro:? Alert and orientated x3, strength is +5/5 in all extremities, sensation (units unknown) (unknown) (unknown) (no date) (unknown) (unknown) Neut # (Auto) 03956 H (units unknown) (unknown) (unknown) (no date) (unknown) (unknown) Neut # (Auto) 9500 H (units unknown) (unknown) (unknown) (no date) (unknown) (unknown) Neut # (Auto) (units unknown) (unknown) (unknown) (no date) (unknown) (unknown) Neut % (Auto) 77.4 H (units unknown) (unknown) (unknown) (no date) (unknown) (unknown) Neut % (Auto) 77.7 H (units unknown) (unknown) (unknown) (no date) (unknown) (unknown) Neut % (Auto) (units unknown) (unknown) (unknown) (no date) (unknown) (unknown) Objective (units unknown) (unknown) (unknown) (no date) (unknown) (unknown) Oxygen Delivery Method Room Air (units unknown) (unknown) (unknown) (no date) (unknown) (unknown) Oxygen Flow Rate 0 (units unknown) (unknown) (unknown) (no date) (unknown) (unknown) PFSH (units unknown) (unknown) (unknown) (no date) (unknown) (unknown) Pancreatitis (units unknown) (unknown) (unknown) (no date) (unknown) (unknown) Patient is starting to feel better. Able to tolerate some mouth fulls of water. (units unknown) (unknown) (unknown) (no date) (unknown) (unknown) Patient that her cod e status be changed to full code. This was discussed with (units unknown) (unknown) (unknown) (no date) (unknown) (unknown) Patient: Kaur Horton MR (units unknown) (unknown) (unknown) (no date) (unknown) (unknown) Phosphorus 3.1 (units unknown) (unknown) (unknown) (no date) (unknown) (unknown) Phosphorus (units unknown) (unknown) (unknown) (no date) (unknown) (unknown) Plt Count 234 (units unknown) (unknown) (unknown) (no date) (unknown) (unknown) Plt Count 317 (units unknown) (unknown) (unknown) (no date) (unknown) (unknown) Plt Count (units unknown) (unknown) (unknown) (no date) (unknown) (unknown) Potassium 2.8 L (units unknown) (unknown) (unknown) (no date) (unknown) (unknown) Potassium 3.3 L (units unknown) (unknown) (unknown) (no date) (unknown) (unknown) Potassium 3.4 (units unknown) (unknown) (unknown) (no date) (unknown) (unknown) Potassium (units unknown) (unknown) (unknown) (no date) (unknown) (unknown) Procalcitonin 0.19 (units unknown) (unknown) (unknown) (no date) (unknown) (unknown) Procalcitonin (units unknown) (unknown) (unknown) (no date) (unknown) (unknown) Progress Note (units unknown) (unknown) (unknown) (no date) (unknown) (unknown) Provider: Nicole Robins MD (units unknown) (unknown) (unknown) (no date) (unknown) (unknown) Psych:? Patient has a well-kept appearance, appropriate affect, mental status (units unknown) (unknown) (unknown) (no date) (unknown) (unknown) Pulse Oximetry 98 (units unknown) (unknown) (unknown) (no date) (unknown) (unknown) Pulse Rate 100 H (units unknown) (unknown) (unknown) (no date) (unknown) (unknown) RBC 3.54 L (units unknown) (unknown) (unknown) (no date) (unknown) (unknown) RBC 4.47 (units unknown) (unknown) (unknown) (no date) (unknown) (unknown) RBC (units unknown) (unknown) (unknown) (no date) (unknown) (unknown) RDW 15.5 H (units unknown) (unknown) (unknown) (no date) (unknown) (unknown) RDW 15.9 H (units unknown) (unknown) (unknown) (no date) (unknown) (unknown) RDW (units unknown) (unknown) (unknown) (no date) (unknown) (unknown) Respiratory Rate 18 (units unknown) (unknown) (unknown) (no date) (unknown) (unknown) SARS-CoV-2 (PCR) Negative (units unknown) (unknown) (unknown) (no date) (unknown) (unknown) SARS-CoV-2 (PCR) (units unknown) (unknown) (unknown) (no date) (unknown) (unknown) Salicylates < 1.0 (units unknown) (unknown) (unknown) (no date) (unknown) (unknown) Salicylates (units unknown) (unknown) (unknown) (no date) (unknown) (unknown) Serum , Sushil l Negative (units unknown) (unknown) (unknown) (no date) (unknown) (unknown) Serum , Qual (units unknown) (unknown) (unknown) (no date) (unknown) (unknown) Signed By:<Electronically signed by Nicole Robins MD> (units unknown) (unknown) (unknown) (no date) (unknown) (unknown) Skin:? Warm dry and intact without rashes, ulcerations or petechiae.? (units unknown) (unknown) (unknown) (no date) (unknown) (unknown) Smoking Status: Current every day smoker (units unknown) (unknown) (unknown) (no date) (unknown) (unknown) Social History (units unknown) (unknown) (unknown) (no date) (unknown) (unknown) Sodium 135 L (units unknown) (unknown) (unknown) (no date) (unknown) (unknown) Sodium 136 L (units unknown) (unknown) (unknown) (no date) (unknown) (unknown) Sodium 138 (units unknown) (unknown) (unknown) (no date) (unknown) (unknown) Sodium (units unknown) (unknown) (unknown) (no date) (unknown) (unknown) Status post appendectomy (units unknown) (unknown) (unknown) (no date) (unknown) (unknown) Subjective (units unknown) (unknown) (unknown) (no date) (unknown) (unknown) Surgical History (units unknown) (unknown) (unknown) (no date) (unknown) (unknown) Surrogate decision maker:? Spouse Khoa (units unknown) (unknown) (unknown) (no date) (unknown) (unknown) TSH 0.34 L (units unknown) (unknown) (unknown) (no date) (unknown) (unknown) TSH (units unknown) (unknown) (unknown) (no date) (unknown) (unknown) Temperature 98.3 F (units unknown) (unknown) (unknown) (no date) (unknown) (unknown) Total Bilirubin 0.6 (units unknown) (unknown) (unknown) (no date) (unknown) (unknown) Total Bilirubin 1.0 (units unknown) (unknown) (unknown) (no date) (unknown) (unknown) Total Bilirubin (units unknown) (unknown) (unknown) (no date) (unknown) (unknown) Total Protein 6.3 (units unknown) (unknown) (unknown) (no date) (unknown) (unknown) Total Protein 7.8 (units unknown) (unknown) (unknown) (no date) (unknown) (unknown) Total Protein (units unknown) (unknown) (unknown) (no date) (unknown) (unknown) Troponin I < 0.012 (units unknown) (unknown) (unknown) (no date) (unknown) (unknown) Troponin I (units unknown) (unknown) (unknown) (no date) (unknown) (unknown) UTI/pyelonephritis, with intractable nausea vomiting, acute, present on (units unknown) (unknown) (unknown) (no date) (unknown) (unknown) Vital Signs (units unknown) (unknown) (unknown) (no date) (unknown) (unknown) WBC 12.2 H (units unknown) (unknown) (unknown) (no date) (unknown) (unknown) WBC 18.1 H (units unknown) (unknown) (unknown) (no date) (unknown) (unknown) WBC (units unknown) (unknown) (unknown) (no date) (unknown) (unknown) [Embedded Image Not Available] (units unknown) (unknown) (unknown) (no date) (unknown) (unknown) admission (units unknown) (unknown) (unknown) (no date) (unknown) (unknown) alcohol intake: never (units unknown) (unknown) (unknown) (no date) (unknown) (unknown) alter based on cultures (units unknown) (unknown) (unknown) (no date) (unknown) (unknown) attitude thought context and judgment are appropriate for age. (units unknown) (unknown) (unknown) (no date) (unknown) (unknown) complications in relation to acute illness/chronic illness.? This increases the (units unknown) (unknown) (unknown) (no date) (unknown) (unknown) criteria, Anion Gap 20-monitor for septic shock/DKA (units unknown) (unknown) (unknown) (no date) (unknown) (unknown) cultures are negativ e can switch to an oral medication for the urinary tract (units unknown) (unknown) (unknown) (no date) (unknown) (unknown) deformity, crepitus, effusions, cyanosis, clubbing or edema present.? Full range (units unknown) (unknown) (unknown) (no date) (unknown) (unknown) difficulty in complexity of medical management and increases the chances poor (units unknown) (unknown) (unknown) (no date) (unknown) (unknown) discussed with her that I will give her regular doses of an anti nausea (units unknown) (unknown) (unknown) (no date) (unknown) (unknown) distress. (units unknown) (unknown) (unknown) (no date) (unknown) (unknown) MD jemal> 08/12/22 (units unknown) (unknown) (unknown) (no date) (unknown) (unknown) effective antiemetic for cyclic vomiting), in addition to Phenergan (units unknown) (unknown) (unknown) (no date) (unknown) (unknown) gastroparesis, chronic, present on admission (units unknown) (unknown) (unknown) (no date) (unknown) (unknown) guarding or rebound, positive CVA tenderness. (units unknown) (unknown) (unknown) (no date) (unknown) (unknown) her. Order will be written. (units unknown) (unknown) (unknown) (no date) (unknown) (unknown) household members: spouse (units unknown) (unknown) (unknown) (no date) (unknown) (unknown) immune suppression. (units unknown) (unknown) (unknown) (no date) (unknown) (unknown) in agreement with this. (units unknown) (unknown) (unknown) (no date) (unknown) (unknown) infection (units unknown) (unknown) (unknown) (no date) (unknown) (unknown) intake and nutrition. (units unknown) (unknown) (unknown) (no date) (unknown) (unknown) medication (Haldol) to try to consistently settled the nausea feeling. She is (units unknown) (unknown) (unknown) (no date) (unknown) (unknown) midline. (units unknown) (unknown) (unknown) (no date) (unknown) (unknown) noted cholelithiasis (units unknown) (unknown) (unknown) (no date) (unknown) (unknown) of motion intact radial and pedal pulses are normal. (units unknown) (unknown) (unknown) (no date) (unknown) (unknown) organomegaly, or masses.? Bowel sounds are present in all 4 quadrants without (units unknown) (unknown) (unknown) (no date) (unknown) (unknown) outcomes such as mortality and morbidity as well as impaired wound healing, and (units unknown) (unknown) (unknown) (no date) (unknown) (unknown) still pending, continue vancomycin and meropenem until results known, if blood (units unknown) (unknown) (unknown) (no date) (unknown) (unknown) suppositories, IV Zofran as needed (units unknown) (unknown) (unknown) (no date) (unknown) (unknown) to touch intact, no gross deficits noted of cranial nerves. (units unknown) (unknown) (unknown) (no date) (unknown) (unknown) wears an insulin pum p was discontinued per hospital policy. (units unknown) (unknown) (unknown) (no date) (unknown) (unknown) wheezes, rhonchi, or rales. (units unknown) (unknown) Result panel 1637 (unknown) (no date) (unknown) (unknown) (no value) (units unknown) (unknown) (unknown) (no date) (unknown) (unknown) NO GROWTH AFTER 24 HOURS (units unknown) (unknown) Result panel 1638 (unknown) (no date) (unknown) (unknown) (no value) (units unknown) (unknown) (unknown) (no date) (unknown) (unknown) NO GROWTH AFTER 24 HOURS (units unknown) (unknown) Result panel 1639 (unknown) (no date) (unknown) (unknown) 171 mg/dl (unknown) (unknown) (no date) (unknown) (unknown) 171 mg/dl (unknown) (unknown) (no date) (unknown) (unknown) 7.6 % (unknown) (unknown) (no date) (unknown) (unknown) 7.6 % (unknown) Result panel 1640 (unknown) (no date) (unknown) (unknown) 0 /ul (unknown) (unknown) (no date) (unknown) (unknown) 0 /ul (unknown) (unknown) (no date) (unknown) (unknown) 0.0 % (unknown) (unknown) (no date) (unknown) (unknown) 0.1 % (unknown) (unknown) (no date) (unknown) (unknown) 12.9 % (unknown) (unknown) (no date) (unknown) (unknown) 1300 /ul (unknown) (unknown) (no date) (unknown) (unknown) [id number] /ul (unknown) (unknown) (no date) (unknown) (unknown) 16.5 % (unknown) (unknown) (no date) (unknown) (unknown) 16.7 x10 3/ul (unknown) (unknown) (no date) (unknown) (unknown) 2200 /ul (unknown) (unknown) (no date) (unknown) (unknown) 25.8 pg (unknown) (unknown) (no date) (unknown) (unknown) 261 x10 3/ul (unknown) (unknown) (no date) (unknown) (unknown) 29.6 % (unknown) (unknown) (no date) (unknown) (unknown) 3.71 x10 6/ul (unknown) (unknown) (no date) (unknown) (unknown) 32.4 % (unknown) (unknown) (no date) (unknown) (unknown) 7.9 % (unknown) (unknown) (no date) (unknown) (unknown) 79.1 % (unknown) (unknown) (no date) (unknown) (unknown) 79.8 fl (unknown) (unknown) (no date) (unknown) (unknown) 9.6 g/dl (unknown) Result panel 1641 (unknown) (no date) (unknown) (unknown) 1.9 mg/dl (unknown) Result panel 1642 (unknown) (no date) (unknown) (unknown) > 60 ml/min (unknown) (unknown) (no date) (unknown) (unknown) > 60 ml/min (unknown) (unknown) (no date) (unknown) (unknown) 0.4 mg/dl (unknown) (unknown) (no date) (unknown) (unknown) 0.72 mg/dl (unknown) (unknown) (no date) (unknown) (unknown) 1.5 (units unknown) (unknown) (unknown) (no date) (unknown) (unknown) 10 mg/dl (unknown) (unknown) (no date) (unknown) (unknown) 104 mmol/l (unknown) (unknown) (no date) (unknown) (unknown) 13.9 (units unknown) (unknown) (unknown) (no date) (unknown) (unknown) 131 mmol/l (unknown) (unknown) (no date) (unknown) (unknown) 167 mg/dl (unknown) (unknown) (no date) (unknown) (unknown) 167 mg/dl (unknown) (unknown) (no date) (unknown) (unknown) 2.4 g/dl (unknown) (unknown) (no date) (unknown) (unknown) 20 iu/l (unknown) (unknown) (no date) (unknown) (unknown) 25 iu/l (unknown) (unknown) (no date) (unknown) (unknown) 3.6 g/dl (unknown) (unknown) (no date) (unknown) (unknown) 3.6 mmol/l (unknown) (unknown) (no date) (unknown) (unknown) 6.0 g/dl (unknown) (unknown) (no date) (unknown) (unknown) 7.4 mg/dl (unknown) (unknown) (no date) (unknown) (unknown) 84 u/l (unknown) (unknown) (no date) (unknown) (unknown) 9 mmol/l (unknown) (unknown) (no date) (unknown) (unknown) 9 mmol/l (unknown) Result panel 1643 (unknown) (no date) (unknown) (unknown) 5.97 mmol/l (unknown) (unknown) (no date) (unknown) (unknown) 5.97 mmol/l (unknown) Result panel 1644 (unknown) (no date) (unknown) (unknown) -17.0 mmol/l (unknown) (unknown) (no date) (unknown) (unknown) 11 mmol/l (unknown) (unknown) (no date) (unknown) (unknown) 110 mmhg (unknown) (unknown) (no date) (unknown) (unknown) 21 (units unknown) (unknown) (unknown) (no date) (unknown) (unknown) 21 (units unknown) (unknown) (unknown) (no date) (unknown) (unknown) 27.0 mmhg (unknown) (unknown) (no date) (unknown) (unknown) 7.20 (units unknown) (unknown) (unknown) (no date) (unknown) (unknown) 7.20 (units unknown) (unknown) (unknown) (no date) (unknown) (unknown) 97 % (unknown) Result panel 1645 (unknown) (no date) (unknown) (unknown) 1.0 mmol/l (unknown) Result panel 1646 (unknown) (no date) (unknown) (unknown) > 60 ml/min (unknown) (unknown) (no date) (unknown) (unknown) > 60 ml/min (unknown) (unknown) (no date) (unknown) (unknown) 0.65 mg/dl (unknown) (unknown) (no date) (unknown) (unknown) 106 mmol/l (unknown) (unknown) (no date) (unknown) (unknown) 12.3 (units unknown) (unknown) (unknown) (no date) (unknown) (unknown) 132 mmol/l (unknown) (unknown) (no date) (unknown) (unknown) 3.5 mmol/l (unknown) (unknown) (no date) (unknown) (unknown) 7.7 mg/dl (unknown) (unknown) (no date) (unknown) (unknown) 8 mg/dl (unknown) (unknown) (no date) (unknown) (unknown) 9 mmol/l (unknown) (unknown) (no date) (unknown) (unknown) 9 mmol/l (unknown) (unknown) (no date) (unknown) (unknown) 95 mg/dl (unknown) (unknown) (no date) (unknown) (unknown) 95 mg/dl (unknown) Result panel 1647 (unknown) (no date) (unknown) (unknown) (no value) (units unknown) (unknown) (unknown) (no date) (unknown) (unknown) #: [id number] (units unknown) (unknown) (unknown) (no date) (unknown) (unknown) (past 8 hours): (units unknown) (unknown) (unknown) (no date) (unknown) (unknown) - last A1c 2 6.3 -reviewed endocrinology notes (units unknown) (unknown) (unknown) (no date) (unknown) (unknown) -Admit: 98.3?, BP 143/83, HR 123, R 24, O2 saturation 99% (units unknown) (unknown) (unknown) (no date) (unknown) (unknown) -BMI 22.8 (units unknown) (unknown) (unknown) (no date) (unknown) (unknown) -BMP q.4 hours, glucose checks q.2 hours-until gap closed<12 (units unknown) (unknown) (unknown) (no date) (unknown) (unknown) -BNP q.4 hours (units unknown) (unknown) (unknown) (no date) (unknown) (unknown) -ED: BP of 123/77 bu t was tachycardic HR 111, tachypneic RR 21. Now heart rate (units unknown) (unknown) (unknown) (no date) (unknown) (unknown) -Haldol 0.5 schedule d as a regular dose every 4 hours (this is the most (units unknown) (unknown) (unknown) (no date) (unknown) (unknown) -UA positive for UTI , urine culture E coli with wide sensitivity, blood culture (units unknown) (unknown) (unknown) (no date) (unknown) (unknown) -V/SQ 1 hour x4 if stable may change to q.4 hours:? Notify for HR>120, RR>36, (units unknown) (unknown) (unknown) (no date) (unknown) (unknown) -WBC 18.1, neutrophils 14,000, lactate 2.3 patient meets SIRS severe sepsis (units unknown) (unknown) (unknown) (no date) (unknown) (unknown) -While vomiting: holding Reglan, protonix- changed to IV protonix (units unknown) (unknown) (unknown) (no date) (unknown) (unknown) -admitted under diabetic protocols, sliding scale for coverage, patient normally (units unknown) (unknown) (unknown) (no date) (unknown) (unknown) -antiemetics, pain control (units unknown) (unknown) (unknown) (no date) (unknown) (unknown) -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 Astudillo (units unknown) (unknown) (unknown) (no date) (unknown) (unknown) -continue phenergan supp (units unknown) (unknown) (unknown) (no date) (unknown) (unknown) -dietary consult ordered to evaluate and implement steps to improve caloric (units unknown) (unknown) (unknown) (no date) (unknown) (unknown) -history cannabis hyperemesis syndrome/cyclic vomiting syndrome (units unknown) (unknown) (unknown) (no date) (unknown) (unknown) -initiated for complicated sepsis UTI meropenem and vancomycin (per up-to date) (units unknown) (unknown) (unknown) (no date) (unknown) (unknown) -on admit initiated sepsis bolus 30 cc/kg per hour (units unknown) (unknown) (unknown) (no date) (unknown) (unknown) -ordered 40 mEq potassium rider (units unknown) (unknown) (unknown) (no date) (unknown) (unknown) -ordered renal ultrasound to check for hydronephrosis -no hydronephrosis but (units unknown) (unknown) (unknown) (no date) (unknown) (unknown) -ordered salicylate, amylase, TSH, troponin, urine osmolality, ETOH, A1C (units unknown) (unknown) (unknown) (no date) (unknown) (unknown) -patient given Rocephin in ED (units unknown) (unknown) (unknown) (no date) (unknown) (unknown) -patient's malnutrition places them at high risk for medical and surgical (units unknown) (unknown) (unknown) (no date) (unknown) (unknown) -potassium 3.3, -ordered 40 mEq potassium rider -potassium normal at 3.4 today (units unknown) (unknown) (unknown) (no date) (unknown) (unknown) -potassium 3.3, bicarb 19, glucose 92, ketones 5.09?anion gap 20, not in DKA (units unknown) (unknown) (unknown) (no date) (unknown) (unknown) -potassium goal: 4-5 (units unknown) (unknown) (unknown) (no date) (unknown) (unknown) -strict I+O, notify for UOP< 50 cc/HR (units unknown) (unknown) (unknown) (no date) (unknown) (unknown) -to be followed by N S at 100 cc/HR (units unknown) (unknown) (unknown) (no date) (unknown) (unknown) -will dose Humalog per patient's personal dosing schedule. (units unknown) (unknown) (unknown) (no date) (unknown) (unknown) 02:15 05:07 05:07 (units unknown) (unknown) (unknown) (no date) (unknown) (unknown) 08/12/22 08/13/22 08/13/22 (units unknown) (unknown) (unknown) (no date) (unknown) (unknown) 08/13/22 08/13/22 08/13/22 (units unknown) (unknown) (unknown) (no date) (unknown) (unknown) 08/13/22 08/13/22 (units unknown) (unknown) (unknown) (no date) (unknown) (unknown) 08/13/22 05:07 (units unknown) (unknown) (unknown) (no date) (unknown) (unknown) 08/13/22 08:56 (units unknown) (unknown) (unknown) (no date) (unknown) (unknown) 08/13/22 (units unknown) (unknown) (unknown) (no date) (unknown) (unknown) 04:21 (units unknown) (unknown) (unknown) (no date) (unknown) (unknown) 05:07 05:07 06:39 (units unknown) (unknown) (unknown) (no date) (unknown) (unknown) 07:14 08:56 (units unknown) (unknown) (unknown) (no date) (unknown) (unknown) 1. Lactic acidosis sepsis (metabolic) without septic shock due to (units unknown) (unknown) (unknown) (no date) (unknown) (unknown) 100 and respiratory rate 18 blood pressure 94/47 (units unknown) (unknown) (unknown) (no date) (unknown) (unknown) 2. 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 Hypokalemia, acute, secondary to volume loss N/V, present on admission (units unknown) (unknown) (unknown) (no date) (unknown) (unknown) 4. Malnutrition, mild, acute on chronic, present on admission (units unknown) (unknown) (unknown) (no date) (unknown) (unknown) ?Code status:? DNR DNI via patient wishes documented in chart 01/2022 (units unknown) (unknown) (unknown) (no date) (unknown) (unknown) ABG Base Excess -17. 0 L (units unknown) (unknown) (unknown) (no date) (unknown) (unknown) ABG Base Excess (units unknown) (unknown) (unknown) (no date) (unknown) (unknown) ABG HCO3 11 L (units unknown) (unknown) (unknown) (no date) (unknown) (unknown) ABG HCO3 (units unknown) (unknown) (unknown) (no date) (unknown) (unknown) ABG O2 Saturation 97 (units unknown) (unknown) (unknown) (no date) (unknown) (unknown) ABG O2 Saturation (units unknown) (unknown) (unknown) (no date) (unknown) (unknown) ABG Total CO2 11 L (units unknown) (unknown) (unknown) (no date) (unknown) (unknown) ABG Total CO2 (units unknown) (unknown) (unknown) (no date) (unknown) (unknown) ABG pCO2 27.0 L (units unknown) (unknown) (unknown) (no date) (unknown) (unknown) ABG pCO2 (units unknown) (unknown) (unknown) (no date) (unknown) (unknown) ABG pH 7.20 L* (units unknown) (unknown) (unknown) (no date) (unknown) (unknown) ABG pH (units unknown) (unknown) (unknown) (no date) (unknown) (unknown) ABG pO2 110 H (units unknown) (unknown) (unknown) (no date) (unknown) (unknown) ABG pO2 (units unknown) (unknown) (unknown) (no date) (unknown) (unknown) ALT 20 (units unknown) (unknown) (unknown) (no date) (unknown) (unknown) ALT (units unknown) (unknown) (unknown) (no date) (unknown) (unknown) AST 25 (units unknown) (unknown) (unknown) (no date) (unknown) (unknown) AST (units unknown) (unknown) (unknown) (no date) (unknown) (unknown) Abdomen:? Soft diffuse generalized minimal tenderness, negative for (units unknown) (unknown) (unknown) (no date) (unknown) (unknown) Age/Sex: 27 / F (units unknown) (unknown) (unknown) (no date) (unknown) (unknown) Albumin 3.6 (units unknown) (unknown) (unknown) (no date) (unknown) (unknown) Albumin (units unknown) (unknown) (unknown) (no date) (unknown) (unknown) Albumin/Globulin Ratio 1.5 (units unknown) (unknown) (unknown) (no date) (unknown) (unknown) Albumin/Globulin Ratio (units unknown) (unknown) (unknown) (no date) (unknown) (unknown) Alkaline Phosphatase 84 (units unknown) (unknown) (unknown) (no date) (unknown) (unknown) Alkaline Phosphatase (units unknown) (unknown) (unknown) (no date) (unknown) (unknown) Anemia (units unknown) (unknown) (unknown) (no date) (unknown) (unknown) Assessment + Plan narrative: (units unknown) (unknown) (unknown) (no date) (unknown) (unknown) Assessment + Plan (units unknown) (unknown) (unknown) (no date) (unknown) (unknown) BUN 10 (units unknown) (unknown) (unknown) (no date) (unknown) (unknown) BUN 8 (units unknown) (unknown) (unknown) (no date) (unknown) (unknown) BUN (units unknown) (unknown) (unknown) (no date) (unknown) (unknown) BUN/Creatinine Ratio 12.3 (units unknown) (unknown) (unknown) (no date) (unknown) (unknown) BUN/Creatinine Ratio 13.9 (units unknown) (unknown) (unknown) (no date) (unknown) (unknown) BUN/Creatinine Ratio (units unknown) (unknown) (unknown) (no date) (unknown) (unknown) Baso # (Auto) 0 (units unknown) (unknown) (unknown) (no date) (unknown) (unknown) Baso # (Auto) (units unknown) (unknown) (unknown) (no date) (unknown) (unknown) Baso % (Auto) 0.1 (units unknown) (unknown) (unknown) (no date) (unknown) (unknown) Baso % (Auto) (units unknown) (unknown) (unknown) (no date) (unknown) (unknown) Blood Pressure 131/73 (units unknown) (unknown) (unknown) (no date) (unknown) (unknown) COVID PCR:Ordered (units unknown) (unknown) (unknown) (no date) (unknown) (unknown) Calcium 7.4 L (units unknown) (unknown) (unknown) (no date) (unknown) (unknown) Calcium 7.7 L (units unknown) (unknown) (unknown) (no date) (unknown) (unknown) Calcium (units unknown) (unknown) (unknown) (no date) (unknown) (unknown) Cannabis hyperemesis syndrome concurrent with and due to cannabis dependence (units unknown) (unknown) (unknown) (no date) (unknown) (unknown) Carbon Dioxide 9 L* (units unknown) (unknown) (unknown) (no date) (unknown) (unknown) Carbon Dioxide (units unknown) (unknown) (unknown) (no date) (unknown) (unknown) Cardio:? regular rat e and rhythm with no extra sounds or murmurs. (units unknown) (unknown) (unknown) (no date) (unknown) (unknown) Chest:? Breathing without nasal flaring, retractions, or labored, no tachypneic (units unknown) (unknown) (unknown) (no date) (unknown) (unknown) Chloride 104 (units unknown) (unknown) (unknown) (no date) (unknown) (unknown) Chloride 106 (units unknown) (unknown) (unknown) (no date) (unknown) (unknown) Chloride (units unknown) (unknown) (unknown) (no date) (unknown) (unknown) Creatinine 0.65 (units unknown) (unknown) (unknown) (no date) (unknown) (unknown) Creatinine 0.72 (units unknown) (unknown) (unknown) (no date) (unknown) (unknown) Creatinine (units unknown) (unknown) (unknown) (no date) (unknown) (unknown) Cyclic vomiting syndrome (units unknown) (unknown) (unknown) (no date) (unknown) (unknown) DKA (diabetic ketoacidoses) (units unknown) (unknown) (unknown) (no date) (unknown) (unknown) : 1995 Acct:[id number] (units unknown) (unknown) (unknown) (no date) (unknown) (unknown) DVT/VTE prophylaxis: ? Lovenox and SCDs (units unknown) (unknown) (unknown) (no date) (unknown) (unknown) Date of Service: 08/12/22 (units unknown) (unknown) (unknown) (no date) (unknown) (unknown) Diabetes mellitus, type I (units unknown) (unknown) (unknown) (no date) (unknown) (unknown) Eos # (Auto) 0 (units unknown) (unknown) (unknown) (no date) (unknown) (unknown) Eos # (Auto) (units unknown) (unknown) (unknown) (no date) (unknown) (unknown) Eos % (Auto) 0.0 L (units unknown) (unknown) (unknown) (no date) (unknown) (unknown) Eos % (Auto) (units unknown) (unknown) (unknown) (no date) (unknown) (unknown) Estim Average Glucos e 171 (units unknown) (unknown) (unknown) (no date) (unknown) (unknown) Estim Average Glucose (units unknown) (unknown) (unknown) (no date) (unknown) (unknown) Estimated GFR > 60 (units unknown) (unknown) (unknown) (no date) (unknown) (unknown) Estimated GFR (units unknown) (unknown) (unknown) (no date) (unknown) (unknown) Exam Narrative: (units unknown) (unknown) (unknown) (no date) (unknown) (unknown) Exam (units unknown) (unknown) (unknown) (no date) (unknown) (unknown) Family History (units unknown) (unknown) (unknown) (no date) (unknown) (unknown) Father Healthy adult (units unknown) (unknown) (unknown) (no date) (unknown) (unknown) FiO2 21 (units unknown) (unknown) (unknown) (no date) (unknown) (unknown) FiO2 (units unknown) (unknown) (unknown) (no date) (unknown) (unknown) Follow labs and clinically. (units unknown) (unknown) (unknown) (no date) (unknown) (unknown) Gastroparesis (units unknown) (unknown) (unknown) (no date) (unknown) (unknown) General:? Patient is a well-developed, well-nourished in no acute medical (units unknown) (unknown) (unknown) (no date) (unknown) (unknown) Globulin 2.4 (units unknown) (unknown) (unknown) (no date) (unknown) (unknown) Globulin (units unknown) (unknown) (unknown) (no date) (unknown) (unknown) Glucose 167 H (units unknown) (unknown) (unknown) (no date) (unknown) (unknown) Glucose 95 (units unknown) (unknown) (unknown) (no date) (unknown) (unknown) Glucose (units unknown) (unknown) (unknown) (no date) (unknown) (unknown) HEENT:? Normocephalic, atraumatic, extraocular muscles intact. Trachea is (units unknown) (unknown) (unknown) (no date) (unknown) (unknown) Hct 29.6 L (units unknown) (unknown) (unknown) (no date) (unknown) (unknown) Hct (units unknown) (unknown) (unknown) (no date) (unknown) (unknown) Hgb 9.6 L (units unknown) (unknown) (unknown) (no date) (unknown) (unknown) Hgb A1c (Ref Lab) 7. 6 H (units unknown) (unknown) (unknown) (no date) (unknown) (unknown) Hgb A1c (Ref Lab) (units unknown) (unknown) (unknown) (no date) (unknown) (unknown) Hgb (units unknown) (unknown) (unknown) (no date) (unknown) (unknown) Insulin dependent diabetes mellitus (units unknown) (unknown) (unknown) (no date) (unknown) (unknown) [address] [id number] (units unknown) (unknown) (unknown) (no date) (unknown) (unknown) Ketones 5.97 H (units unknown) (unknown) (unknown) (no date) (unknown) (unknown) Ketones (units unknown) (unknown) (unknown) (no date) (unknown) (unknown) Laboratory Results - last 24 hr (units unknown) (unknown) (unknown) (no date) (unknown) (unknown) Labs (units unknown) (unknown) (unknown) (no date) (unknown) (unknown) Labs: (units unknown) (unknown) (unknown) (no date) (unknown) (unknown) Lactate 1.0 (units unknown) (unknown) (unknown) (no date) (unknown) (unknown) Lactate (units unknown) (unknown) (unknown) (no date) (unknown) (unknown) Lungs:? Auscultation of all lung hendricks are clear without adventitious sounds, (units unknown) (unknown) (unknown) (no date) (unknown) (unknown) Lymph # (Auto) 2200 (units unknown) (unknown) (unknown) (no date) (unknown) (unknown) Lymph # (Auto) (units unknown) (unknown) (unknown) (no date) (unknown) (unknown) Lymph % (Auto) 12.9 L (units unknown) (unknown) (unknown) (no date) (unknown) (unknown) Lymph % (Auto) (units unknown) (unknown) (unknown) (no date) (unknown) (unknown) MAP<70, BP <90/60, B P >180/105, Temp>102 (units unknown) (unknown) (unknown) (no date) (unknown) (unknown) MCH 25.8 L (units unknown) (unknown) (unknown) (no date) (unknown) (unknown) MCH (units unknown) (unknown) (unknown) (no date) (unknown) (unknown) MCHC 32.4 (units unknown) (unknown) (unknown) (no date) (unknown) (unknown) MCHC (units unknown) (unknown) (unknown) (no date) (unknown) (unknown) MCV 79.8 L (units unknown) (unknown) (unknown) (no date) (unknown) (unknown) MCV (units unknown) (unknown) (unknown) (no date) (unknown) (unknown) Magnesium 1.9 (units unknown) (unknown) (unknown) (no date) (unknown) (unknown) Magnesium (units unknown) (unknown) (unknown) (no date) (unknown) (unknown) Medical History (Updated 08/12/22 @ 02:17 by Gracia Smith [facility]) (units unknown) (unknown) (unknown) (no date) (unknown) (unknown) Migraine headache with aura (units unknown) (unknown) (unknown) (no date) (unknown) (unknown) O'Brien # (Auto) 1300 H (units unknown) (unknown) (unknown) (no date) (unknown) (unknown) O'Brien # (Auto) (units unknown) (unknown) (unknown) (no date) (unknown) (unknown) O'Brien % (Auto) 7.9 (units unknown) (unknown) (unknown) (no date) (unknown) (unknown) O'Brien % (Auto) (units unknown) (unknown) (unknown) (no date) (unknown) (unknown) Mother Hypertension (units unknown) (unknown) (unknown) (no date) (unknown) (unknown) Musculoskeletal:? Muscle strength and tone are equal within normal limits, no (units unknown) (unknown) (unknown) (no date) (unknown) (unknown) Myopia (units unknown) (unknown) (unknown) (no date) (unknown) (unknown) Narrative (units unknown) (unknown) (unknown) (no date) (unknown) (unknown) Neuro:? Alert and orientated x3, strength is +5/5 in all extremities, sensation (units unknown) (unknown) (unknown) (no date) (unknown) (unknown) Neut # (Auto) 67027 H (units unknown) (unknown) (unknown) (no date) (unknown) (unknown) Neut # (Auto) (units unknown) (unknown) (unknown) (no date) (unknown) (unknown) Neut % (Auto) 79.1 H (units unknown) (unknown) (unknown) (no date) (unknown) (unknown) Neut % (Auto) (units unknown) (unknown) (unknown) (no date) (unknown) (unknown) Objective (units unknown) (unknown) (unknown) (no date) (unknown) (unknown) Oxygen Delivery Method Room Air (units unknown) (unknown) (unknown) (no date) (unknown) (unknown) Oxygen Flow Rate 0 (units unknown) (unknown) (unknown) (no date) (unknown) (unknown) PFSH (units unknown) (unknown) (unknown) (no date) (unknown) (unknown) Pancreatitis (units unknown) (unknown) (unknown) (no date) (unknown) (unknown) Patient: Kaur Horton MR (units unknown) (unknown) (unknown) (no date) (unknown) (unknown) Plt Count 261 (units unknown) (unknown) (unknown) (no date) (unknown) (unknown) Plt Count (units unknown) (unknown) (unknown) (no date) (unknown) (unknown) Potassium 3.5 (units unknown) (unknown) (unknown) (no date) (unknown) (unknown) Potassium 3.6 (units unknown) (unknown) (unknown) (no date) (unknown) (unknown) Potassium (units unknown) (unknown) (unknown) (no date) (unknown) (unknown) Progress Note (units unknown) (unknown) (unknown) (no date) (unknown) (unknown) Provider: Alonzo Dueñas D.O. (units unknown) (unknown) (unknown) (no date) (unknown) (unknown) Psych:? Patient has a well-kept appearance, appropriate affect, mental status (units unknown) (unknown) (unknown) (no date) (unknown) (unknown) Pulse Oximetry 99 (units unknown) (unknown) (unknown) (no date) (unknown) (unknown) Pulse Rate 107 H (units unknown) (unknown) (unknown) (no date) (unknown) (unknown) RBC 3.71 L (units unknown) (unknown) (unknown) (no date) (unknown) (unknown) RBC (units unknown) (unknown) (unknown) (no date) (unknown) (unknown) RDW 16.5 H (units unknown) (unknown) (unknown) (no date) (unknown) (unknown) RDW (units unknown) (unknown) (unknown) (no date) (unknown) (unknown) Respiratory Rate 16 (units unknown) (unknown) (unknown) (no date) (unknown) (unknown) Signed By: (units unknown) (unknown) (unknown) (no date) (unknown) (unknown) Skin:? Warm dry and intact without rashes, ulcerations or petechiae.? (units unknown) (unknown) (unknown) (no date) (unknown) (unknown) Smoking Status: Current every day smoker (units unknown) (unknown) (unknown) (no date) (unknown) (unknown) Social History (units unknown) (unknown) (unknown) (no date) (unknown) (unknown) Sodium 131 L (units unknown) (unknown) (unknown) (no date) (unknown) (unknown) Sodium 132 L (units unknown) (unknown) (unknown) (no date) (unknown) (unknown) Sodium (units unknown) (unknown) (unknown) (no date) (unknown) (unknown) Status post appendectomy (units unknown) (unknown) (unknown) (no date) (unknown) (unknown) Surgical History (units unknown) (unknown) (unknown) (no date) (unknown) (unknown) Surrogate decision maker:? Spouse Khoa (units unknown) (unknown) (unknown) (no date) (unknown) (unknown) Temperature 97.7 F (units unknown) (unknown) (unknown) (no date) (unknown) (unknown) Total Bilirubin 0.4 (units unknown) (unknown) (unknown) (no date) (unknown) (unknown) Total Bilirubin (units unknown) (unknown) (unknown) (no date) (unknown) (unknown) Total Protein 6.0 L (units unknown) (unknown) (unknown) (no date) (unknown) (unknown) Total Protein (units unknown) (unknown) (unknown) (no date) (unknown) (unknown) UTI/pyelonephritis, with intractable nausea vomiting, acute, present on (units unknown) (unknown) (unknown) (no date) (unknown) (unknown) Vital Signs (units unknown) (unknown) (unknown) (no date) (unknown) (unknown) WBC 16.7 H (units unknown) (unknown) (unknown) (no date) (unknown) (unknown) WBC (units unknown) (unknown) (unknown) (no date) (unknown) (unknown) [Embedded Image Not Available] (units unknown) (unknown) (unknown) (no date) (unknown) (unknown) admission (units unknown) (unknown) (unknown) (no date) (unknown) (unknown) alcohol intake: never (units unknown) (unknown) (unknown) (no date) (unknown) (unknown) alter based on cultures (units unknown) (unknown) (unknown) (no date) (unknown) (unknown) attitude thought context and judgment are appropriate for age. (units unknown) (unknown) (unknown) (no date) (unknown) (unknown) complications in relation to acute illness/chronic illness.? This increases the (units unknown) (unknown) (unknown) (no date) (unknown) (unknown) criteria, Anion Gap 20-monitor for septic shock/DKA (units unknown) (unknown) (unknown) (no date) (unknown) (unknown) cultures are negativ e can switch to an oral medication for the urinary tract (units unknown) (unknown) (unknown) (no date) (unknown) (unknown) deformity, crepitus, effusions, cyanosis, clubbing or edema present.? Full range (units unknown) (unknown) (unknown) (no date) (unknown) (unknown) difficulty in complexity of medical management and increases the chances poor (units unknown) (unknown) (unknown) (no date) (unknown) (unknown) distress. (units unknown) (unknown) (unknown) (no date) (unknown) (unknown) effective antiemetic for cyclic vomiting), in addition to Phenergan (units unknown) (unknown) (unknown) (no date) (unknown) (unknown) gastroparesis, chronic, present on admission (units unknown) (unknown) (unknown) (no date) (unknown) (unknown) guarding or rebound, positive CVA tenderness. (units unknown) (unknown) (unknown) (no date) (unknown) (unknown) household members: spouse (units unknown) (unknown) (unknown) (no date) (unknown) (unknown) immune suppression. (units unknown) (unknown) (unknown) (no date) (unknown) (unknown) infection (units unknown) (unknown) (unknown) (no date) (unknown) (unknown) intake and nutrition. (units unknown) (unknown) (unknown) (no date) (unknown) (unknown) midline. (units unknown) (unknown) (unknown) (no date) (unknown) (unknown) noted cholelithiasis (units unknown) (unknown) (unknown) (no date) (unknown) (unknown) of motion intact radial and pedal pulses are normal. (units unknown) (unknown) (unknown) (no date) (unknown) (unknown) organomegaly, or masses.? Bowel sounds are present in all 4 quadrants without (units unknown) (unknown) (unknown) (no date) (unknown) (unknown) outcomes such as mortality and morbidity as well as impaired wound healing, and (units unknown) (unknown) (unknown) (no date) (unknown) (unknown) still pending, continue vancomycin and meropenem until results known, if blood (units unknown) (unknown) (unknown) (no date) (unknown) (unknown) suppositories, IV Zofran as needed (units unknown) (unknown) (unknown) (no date) (unknown) (unknown) to touch intact, no gross deficits noted of cranial nerves. (units unknown) (unknown) (unknown) (no date) (unknown) (unknown) wears an insulin pum p was discontinued per hospital policy. (units unknown) (unknown) (unknown) (no date) (unknown) (unknown) wheezes, rhonchi, or rales. (units unknown) (unknown) Result panel 1648 (unknown) (no date) (unknown) (unknown) (no value) (units unknown) (unknown) (unknown) (no date) (unknown) (unknown) Very Early Growth: Culture too young for work-up reincubated (units unknown) (unknown) Result panel 1649 (unknown) (no date) (unknown) (unknown) > 60 ml/min (unknown) (unknown) (no date) (unknown) (unknown) > 60 ml/min (unknown) (unknown) (no date) (unknown) (unknown) 0.66 mg/dl (unknown) (unknown) (no date) (unknown) (unknown) 10.6 (units unknown) (unknown) (unknown) (no date) (unknown) (unknown) 104 mmol/l (unknown) (unknown) (no date) (unknown) (unknown) 11 mmol/l (unknown) (unknown) (no date) (unknown) (unknown) 132 mmol/l (unknown) (unknown) (no date) (unknown) (unknown) 152 mg/dl (unknown) (unknown) (no date) (unknown) (unknown) 152 mg/dl (unknown) (unknown) (no date) (unknown) (unknown) 3.3 mmol/l (unknown) (unknown) (no date) (unknown) (unknown) 7 mg/dl (unknown) (unknown) (no date) (unknown) (unknown) 7.2 mg/dl (unknown) Result panel 1650 (unknown) (no date) (unknown) (unknown) (no value) (units unknown) (unknown) (unknown) (no date) (unknown) (unknown) NO GROWTH AFTER 72 HOURS (units unknown) (unknown) (unknown) (no date) (unknown) (unknown) NO GROWTH AFTER 72 HOURS (units unknown) (unknown) Result panel 1651 (unknown) (no date) (unknown) (unknown) (no value) (units unknown) (unknown) (unknown) (no date) (unknown) (unknown) #: [id number] (units unknown) (unknown) (unknown) (no date) (unknown) (unknown) (past 8 hours): (units unknown) (unknown) (unknown) (no date) (unknown) (unknown) -A1c 7.6% (units unknown) (unknown) (unknown) (no date) (unknown) (unknown) -BMI 22.8 (units unknown) (unknown) (unknown) (no date) (unknown) (unknown) -BMP q.4 hours, glucose checks q.2 hours-until gap closed<12 (units unknown) (unknown) (unknown) (no date) (unknown) (unknown) -BNP q.4 hours (units unknown) (unknown) (unknown) (no date) (unknown) (unknown) -Haldol 0.5 schedule d as a regular dose every 4 hours (this is the most (units unknown) (unknown) (unknown) (no date) (unknown) (unknown) -admitted under diabetic protocols, sliding scale for coverage, patient normally (units unknown) (unknown) (unknown) (no date) (unknown) (unknown) -antiemetics, pain control (units unknown) (unknown) (unknown) (no date) (unknown) (unknown) -cultures growing E. coli so changed to rocephin 1g daily (units unknown) (unknown) (unknown) (no date) (unknown) (unknown) -dietary consult ordered to evaluate and implement steps to improve caloric (units unknown) (unknown) (unknown) (no date) (unknown) (unknown) -initiate insulin drip (units unknown) (unknown) (unknown) (no date) (unknown) (unknown) -initiated for complicated sepsis UTI meropenem and vancomycin (per up-to date) (units unknown) (unknown) (unknown) (no date) (unknown) (unknown) -last A1c 01/31/2022 6.3 -reviewed endocrinology notes (units unknown) (unknown) (unknown) (no date) (unknown) (unknown) -patient's malnutrition places them at high risk for medical and surgical (units unknown) (unknown) (unknown) (no date) (unknown) (unknown) -potassium 3.3 on admission (units unknown) (unknown) (unknown) (no date) (unknown) (unknown) -potassium goal: 4-5 (units unknown) (unknown) (unknown) (no date) (unknown) (unknown) -will dose Humalog per patient's personal dosing schedule. (units unknown) (unknown) (unknown) (no date) (unknown) (unknown) 02:15 05:07 05:07 (units unknown) (unknown) (unknown) (no date) (unknown) (unknown) 08/12/22 08/13/22 08/13/22 (units unknown) (unknown) (unknown) (no date) (unknown) (unknown) 08/13/22 08/13/22 08/13/22 (units unknown) (unknown) (unknown) (no date) (unknown) (unknown) 08/13/22 08/13/22 (units unknown) (unknown) (unknown) (no date) (unknown) (unknown) 08/13/22 05:07 (units unknown) (unknown) (unknown) (no date) (unknown) (unknown) 08/13/22 13:25 (units unknown) (unknown) (unknown) (no date) (unknown) (unknown) 08/13/22 1809 (units unknown) (unknown) (unknown) (no date) (unknown) (unknown) 08/13/22 (units unknown) (unknown) (unknown) (no date) (unknown) (unknown) 04:21 (units unknown) (unknown) (unknown) (no date) (unknown) (unknown) 05:07 05:07 06:39 (units unknown) (unknown) (unknown) (no date) (unknown) (unknown) 07:14 08:56 (units unknown) (unknown) (unknown) (no date) (unknown) (unknown) 1. Lactic acidosis sepsis (metabolic) without septic shock due to (units unknown) (unknown) (unknown) (no date) (unknown) (unknown) 2. DKA 2/2 insulin-dependent type 1 diabetic with peripheral neuropathy and (units unknown) (unknown) (unknown) (no date) (unknown) (unknown) 3. Hypokalemia, acute, secondary to volume loss N/V, present on admission (units unknown) (unknown) (unknown) (no date) (unknown) (unknown) 4. Malnutrition, mild, acute on chronic, present on admission (units unknown) (unknown) (unknown) (no date) (unknown) (unknown) ABG Base Excess -17. 0 L (units unknown) (unknown) (unknown) (no date) (unknown) (unknown) ABG Base Excess (units unknown) (unknown) (unknown) (no date) (unknown) (unknown) ABG HCO3 11 L (units unknown) (unknown) (unknown) (no date) (unknown) (unknown) ABG HCO3 (units unknown) (unknown) (unknown) (no date) (unknown) (unknown) ABG O2 Saturation 97 (units unknown) (unknown) (unknown) (no date) (unknown) (unknown) ABG O2 Saturation (units unknown) (unknown) (unknown) (no date) (unknown) (unknown) ABG Total CO2 11 L (units unknown) (unknown) (unknown) (no date) (unknown) (unknown) ABG Total CO2 (units unknown) (unknown) (unknown) (no date) (unknown) (unknown) ABG pCO2 27.0 L (units unknown) (unknown) (unknown) (no date) (unknown) (unknown) ABG pCO2 (units unknown) (unknown) (unknown) (no date) (unknown) (unknown) ABG pH 7.20 L* (units unknown) (unknown) (unknown) (no date) (unknown) (unknown) ABG pH (units unknown) (unknown) (unknown) (no date) (unknown) (unknown) ABG pO2 110 H (units unknown) (unknown) (unknown) (no date) (unknown) (unknown) ABG pO2 (units unknown) (unknown) (unknown) (no date) (unknown) (unknown) ALT 20 (units unknown) (unknown) (unknown) (no date) (unknown) (unknown) ALT (units unknown) (unknown) (unknown) (no date) (unknown) (unknown) AST 25 (units unknown) (unknown) (unknown) (no date) (unknown) (unknown) AST (units unknown) (unknown) (unknown) (no date) (unknown) (unknown) Abdomen:? Soft diffuse generalized minimal tenderness, negative for (units unknown) (unknown) (unknown) (no date) (unknown) (unknown) Age/Sex: 27 / F (units unknown) (unknown) (unknown) (no date) (unknown) (unknown) Albumin 3.6 (units unknown) (unknown) (unknown) (no date) (unknown) (unknown) Albumin (units unknown) (unknown) (unknown) (no date) (unknown) (unknown) Albumin/Globulin Ratio 1.5 (units unknown) (unknown) (unknown) (no date) (unknown) (unknown) Albumin/Globulin Ratio (units unknown) (unknown) (unknown) (no date) (unknown) (unknown) Alkaline Phosphatase 84 (units unknown) (unknown) (unknown) (no date) (unknown) (unknown) Alkaline Phosphatase (units unknown) (unknown) (unknown) (no date) (unknown) (unknown) Anemia (units unknown) (unknown) (unknown) (no date) (unknown) (unknown) Assessment + Plan narrative: (units unknown) (unknown) (unknown) (no date) (unknown) (unknown) Assessment + Plan (units unknown) (unknown) (unknown) (no date) (unknown) (unknown) BMP with bicarb of 9 and gap of 18 this AM. ABG with pH 7.2. Moved to ICU and (units unknown) (unknown) (unknown) (no date) (unknown) (unknown) BUN 10 (units unknown) (unknown) (unknown) (no date) (unknown) (unknown) BUN 8 (units unknown) (unknown) (unknown) (no date) (unknown) (unknown) BUN (units unknown) (unknown) (unknown) (no date) (unknown) (unknown) BUN/Creatinine Ratio 12.3 (units unknown) (unknown) (unknown) (no date) (unknown) (unknown) BUN/Creatinine Ratio 13.9 (units unknown) (unknown) (unknown) (no date) (unknown) (unknown) BUN/Creatinine Ratio (units unknown) (unknown) (unknown) (no date) (unknown) (unknown) Baso # (Auto) 0 (units unknown) (unknown) (unknown) (no date) (unknown) (unknown) Baso # (Auto) (units unknown) (unknown) (unknown) (no date) (unknown) (unknown) Baso % (Auto) 0.1 (units unknown) (unknown) (unknown) (no date) (unknown) (unknown) Baso % (Auto) (units unknown) (unknown) (unknown) (no date) (unknown) (unknown) Blood Pressure 131/73 (units unknown) (unknown) (unknown) (no date) (unknown) (unknown) COVID PCR:Ordered (units unknown) (unknown) (unknown) (no date) (unknown) (unknown) Calcium 7.4 L (units unknown) (unknown) (unknown) (no date) (unknown) (unknown) Calcium 7.7 L (units unknown) (unknown) (unknown) (no date) (unknown) (unknown) Calcium (units unknown) (unknown) (unknown) (no date) (unknown) (unknown) Cannabis hyperemesis syndrome concurrent with and due to cannabis dependence (units unknown) (unknown) (unknown) (no date) (unknown) (unknown) Carbon Dioxide 9 L* (units unknown) (unknown) (unknown) (no date) (unknown) (unknown) Carbon Dioxide (units unknown) (unknown) (unknown) (no date) (unknown) (unknown) Cardio:? regular rat e and rhythm with no extra sounds or murmurs. (units unknown) (unknown) (unknown) (no date) (unknown) (unknown) Chest:? Breathing without nasal flaring, retractions, or labored, no tachypneic (units unknown) (unknown) (unknown) (no date) (unknown) (unknown) Chloride 104 (units unknown) (unknown) (unknown) (no date) (unknown) (unknown) Chloride 106 (units unknown) (unknown) (unknown) (no date) (unknown) (unknown) Chloride (units unknown) (unknown) (unknown) (no date) (unknown) (unknown) Code status:? Full code (units unknown) (unknown) (unknown) (no date) (unknown) (unknown) Creatinine 0.65 (units unknown) (unknown) (unknown) (no date) (unknown) (unknown) Creatinine 0.72 (units unknown) (unknown) (unknown) (no date) (unknown) (unknown) Creatinine (units unknown) (unknown) (unknown) (no date) (unknown) (unknown) Cyclic vomiting syndrome (units unknown) (unknown) (unknown) (no date) (unknown) (unknown) DKA (diabetic ketoacidoses) (units unknown) (unknown) (unknown) (no date) (unknown) (unknown) : 1995 Acct:[id number] (units unknown) (unknown) (unknown) (no date) (unknown) (unknown) DVT/VTE prophylaxis: ? SCDs, refusing lovenox (units unknown) (unknown) (unknown) (no date) (unknown) (unknown) Date of Service: 08/13/22 (units unknown) (unknown) (unknown) (no date) (unknown) (unknown) Diabetes mellitus, type I (units unknown) (unknown) (unknown) (no date) (unknown) (unknown) Dispo: Home pending improvement in DKA and NV. 1-2 days. (units unknown) (unknown) (unknown) (no date) (unknown) (unknown) Eos # (Auto) 0 (units unknown) (unknown) (unknown) (no date) (unknown) (unknown) Eos # (Auto) (units unknown) (unknown) (unknown) (no date) (unknown) (unknown) Eos % (Auto) 0.0 L (units unknown) (unknown) (unknown) (no date) (unknown) (unknown) Eos % (Auto) (units unknown) (unknown) (unknown) (no date) (unknown) (unknown) Estim Average Glucos e 171 (units unknown) (unknown) (unknown) (no date) (unknown) (unknown) Estim Average Glucose (units unknown) (unknown) (unknown) (no date) (unknown) (unknown) Estimated GFR > 60 (units unknown) (unknown) (unknown) (no date) (unknown) (unknown) Estimated GFR (units unknown) (unknown) (unknown) (no date) (unknown) (unknown) Exam Narrative: (units unknown) (unknown) (unknown) (no date) (unknown) (unknown) Exam (units unknown) (unknown) (unknown) (no date) (unknown) (unknown) Family History (units unknown) (unknown) (unknown) (no date) (unknown) (unknown) Father Healthy adult (units unknown) (unknown) (unknown) (no date) (unknown) (unknown) FiO2 21 (units unknown) (unknown) (unknown) (no date) (unknown) (unknown) FiO2 (units unknown) (unknown) (unknown) (no date) (unknown) (unknown) Gastroparesis (units unknown) (unknown) (unknown) (no date) (unknown) (unknown) General:? Patient is a well-developed, well-nourished in no acute medical (units unknown) (unknown) (unknown) (no date) (unknown) (unknown) Globulin 2.4 (units unknown) (unknown) (unknown) (no date) (unknown) (unknown) Globulin (units unknown) (unknown) (unknown) (no date) (unknown) (unknown) Glucose 167 H (units unknown) (unknown) (unknown) (no date) (unknown) (unknown) Glucose 95 (units unknown) (unknown) (unknown) (no date) (unknown) (unknown) Glucose (units unknown) (unknown) (unknown) (no date) (unknown) (unknown) HEENT:? Normocephalic, atraumatic, extraocular muscles intact. Trachea is (units unknown) (unknown) (unknown) (no date) (unknown) (unknown) Hct 29.6 L (units unknown) (unknown) (unknown) (no date) (unknown) (unknown) Hct (units unknown) (unknown) (unknown) (no date) (unknown) (unknown) Hgb 9.6 L (units unknown) (unknown) (unknown) (no date) (unknown) (unknown) Hgb A1c (Ref Lab) 7. 6 H (units unknown) (unknown) (unknown) (no date) (unknown) (unknown) Hgb A1c (Ref Lab) (units unknown) (unknown) (unknown) (no date) (unknown) (unknown) Hgb (units unknown) (unknown) (unknown) (no date) (unknown) (unknown) Insulin dependent diabetes mellitus (units unknown) (unknown) (unknown) (no date) (unknown) (unknown) Interval history: (units unknown) (unknown) (unknown) (no date) (unknown) (unknown) [address] [id number] (units unknown) (unknown) (unknown) (no date) (unknown) (unknown) Ketones 5.97 H (units unknown) (unknown) (unknown) (no date) (unknown) (unknown) Ketones (units unknown) (unknown) (unknown) (no date) (unknown) (unknown) Laboratory Results - last 24 hr (units unknown) (unknown) (unknown) (no date) (unknown) (unknown) Labs (units unknown) (unknown) (unknown) (no date) (unknown) (unknown) Labs: (units unknown) (unknown) (unknown) (no date) (unknown) (unknown) Lactate 1.0 (units unknown) (unknown) (unknown) (no date) (unknown) (unknown) Lactate (units unknown) (unknown) (unknown) (no date) (unknown) (unknown) Lungs:? Auscultation of all lung hendricks are clear without adventitious sounds, (units unknown) (unknown) (unknown) (no date) (unknown) (unknown) Lymph # (Auto) 2200 (units unknown) (unknown) (unknown) (no date) (unknown) (unknown) Lymph # (Auto) (units unknown) (unknown) (unknown) (no date) (unknown) (unknown) Lymph % (Auto) 12.9 L (units unknown) (unknown) (unknown) (no date) (unknown) (unknown) Lymph % (Auto) (units unknown) (unknown) (unknown) (no date) (unknown) (unknown) MCH 25.8 L (units unknown) (unknown) (unknown) (no date) (unknown) (unknown) MCH (units unknown) (unknown) (unknown) (no date) (unknown) (unknown) MCHC 32.4 (units unknown) (unknown) (unknown) (no date) (unknown) (unknown) MCHC (units unknown) (unknown) (unknown) (no date) (unknown) (unknown) MCV 79.8 L (units unknown) (unknown) (unknown) (no date) (unknown) (unknown) MCV (units unknown) (unknown) (unknown) (no date) (unknown) (unknown) Magnesium 1.9 (units unknown) (unknown) (unknown) (no date) (unknown) (unknown) Magnesium (units unknown) (unknown) (unknown) (no date) (unknown) (unknown) Medical History (Updated 08/12/22 @ 02:17 by COLTON Leggett) (units unknown) (unknown) (unknown) (no date) (unknown) (unknown) Migraine headache with aura (units unknown) (unknown) (unknown) (no date) (unknown) (unknown) O'Brien # (Auto) 1300 H (units unknown) (unknown) (unknown) (no date) (unknown) (unknown) O'Brien # (Auto) (units unknown) (unknown) (unknown) (no date) (unknown) (unknown) O'Brien % (Auto) 7.9 (units unknown) (unknown) (unknown) (no date) (unknown) (unknown) O'Brien % (Auto) (units unknown) (unknown) (unknown) (no date) (unknown) (unknown) Mother Hypertension (units unknown) (unknown) (unknown) (no date) (unknown) (unknown) Musculoskeletal:? Muscle strength and tone are equal within normal limits, no (units unknown) (unknown) (unknown) (no date) (unknown) (unknown) Myopia (units unknown) (unknown) (unknown) (no date) (unknown) (unknown) Narrative (units unknown) (unknown) (unknown) (no date) (unknown) (unknown) Neuro:? Alert and orientated x3, strength is +5/5 in all extremities, sensation (units unknown) (unknown) (unknown) (no date) (unknown) (unknown) Neut # (Auto) 89084 H (units unknown) (unknown) (unknown) (no date) (unknown) (unknown) Neut # (Auto) (units unknown) (unknown) (unknown) (no date) (unknown) (unknown) Neut % (Auto) 79.1 H (units unknown) (unknown) (unknown) (no date) (unknown) (unknown) Neut % (Auto) (units unknown) (unknown) (unknown) (no date) (unknown) (unknown) Objective (units unknown) (unknown) (unknown) (no date) (unknown) (unknown) Oxygen Delivery Method Room Air (units unknown) (unknown) (unknown) (no date) (unknown) (unknown) Oxygen Flow Rate 0 (units unknown) (unknown) (unknown) (no date) (unknown) (unknown) PFSH (units unknown) (unknown) (unknown) (no date) (unknown) (unknown) Pancreatitis (units unknown) (unknown) (unknown) (no date) (unknown) (unknown) Patient: Kaur Horton MR (units unknown) (unknown) (unknown) (no date) (unknown) (unknown) Plt Count 261 (units unknown) (unknown) (unknown) (no date) (unknown) (unknown) Plt Count (units unknown) (unknown) (unknown) (no date) (unknown) (unknown) Potassium 3.5 (units unknown) (unknown) (unknown) (no date) (unknown) (unknown) Potassium 3.6 (units unknown) (unknown) (unknown) (no date) (unknown) (unknown) Potassium (units unknown) (unknown) (unknown) (no date) (unknown) (unknown) Progress Note (units unknown) (unknown) (unknown) (no date) (unknown) (unknown) Provider: Alonzo Dueñas D.O. (units unknown) (unknown) (unknown) (no date) (unknown) (unknown) Psych:? Patient has a well-kept appearance, appropriate affect, mental status (units unknown) (unknown) (unknown) (no date) (unknown) (unknown) Pulse Oximetry 99 (units unknown) (unknown) (unknown) (no date) (unknown) (unknown) Pulse Rate 107 H (units unknown) (unknown) (unknown) (no date) (unknown) (unknown) RBC 3.71 L (units unknown) (unknown) (unknown) (no date) (unknown) (unknown) RBC (units unknown) (unknown) (unknown) (no date) (unknown) (unknown) RDW 16.5 H (units unknown) (unknown) (unknown) (no date) (unknown) (unknown) RDW (units unknown) (unknown) (unknown) (no date) (unknown) (unknown) Respiratory Rate 16 (units unknown) (unknown) (unknown) (no date) (unknown) (unknown) Signed By:<Electronically signed by Alonzo Dueñas D.O.> (units unknown) (unknown) (unknown) (no date) (unknown) (unknown) Skin:? Warm dry and intact without rashes, ulcerations or petechiae.? (units unknown) (unknown) (unknown) (no date) (unknown) (unknown) Smoking Status: Current every day smoker (units unknown) (unknown) (unknown) (no date) (unknown) (unknown) Social History (units unknown) (unknown) (unknown) (no date) (unknown) (unknown) Sodium 131 L (units unknown) (unknown) (unknown) (no date) (unknown) (unknown) Sodium 132 L (units unknown) (unknown) (unknown) (no date) (unknown) (unknown) Sodium (units unknown) (unknown) (unknown) (no date) (unknown) (unknown) Status post appendectomy (units unknown) (unknown) (unknown) (no date) (unknown) (unknown) Subjective (units unknown) (unknown) (unknown) (no date) (unknown) (unknown) Surgical History (units unknown) (unknown) (unknown) (no date) (unknown) (unknown) Surrogate decision maker:? Spouse Khoa (units unknown) (unknown) (unknown) (no date) (unknown) (unknown) Temperature 97.7 F (units unknown) (unknown) (unknown) (no date) (unknown) (unknown) Total Bilirubin 0.4 (units unknown) (unknown) (unknown) (no date) (unknown) (unknown) Total Bilirubin (units unknown) (unknown) (unknown) (no date) (unknown) (unknown) Total Protein 6.0 L (units unknown) (unknown) (unknown) (no date) (unknown) (unknown) Total Protein (units unknown) (unknown) (unknown) (no date) (unknown) (unknown) UTI/pyelonephritis, with intractable nausea vomiting, acute, present on (units unknown) (unknown) (unknown) (no date) (unknown) (unknown) Vital Signs (units unknown) (unknown) (unknown) (no date) (unknown) (unknown) WBC 16.7 H (units unknown) (unknown) (unknown) (no date) (unknown) (unknown) WBC (units unknown) (unknown) (unknown) (no date) (unknown) (unknown) [Embedded Image Not Available] (units unknown) (unknown) (unknown) (no date) (unknown) (unknown) admission (units unknown) (unknown) (unknown) (no date) (unknown) (unknown) alcohol intake: never (units unknown) (unknown) (unknown) (no date) (unknown) (unknown) attitude thought context and judgment are appropriate for age. (units unknown) (unknown) (unknown) (no date) (unknown) (unknown) complications in relation to acute illness/chronic illness.? This increases the (units unknown) (unknown) (unknown) (no date) (unknown) (unknown) deformity, crepitus, effusions, cyanosis, clubbing or edema present.? Full range (units unknown) (unknown) (unknown) (no date) (unknown) (unknown) difficulty in complexity of medical management and increases the chances poor (units unknown) (unknown) (unknown) (no date) (unknown) (unknown) distress. (units unknown) (unknown) (unknown) (no date) (unknown) (unknown) effective antiemetic for cyclic vomiting), in addition to Phenergan (units unknown) (unknown) (unknown) (no date) (unknown) (unknown) gastroparesis, chronic, present on admission (units unknown) (unknown) (unknown) (no date) (unknown) (unknown) guarding or rebound, positive CVA tenderness. (units unknown) (unknown) (unknown) (no date) (unknown) (unknown) household members: spouse (units unknown) (unknown) (unknown) (no date) (unknown) (unknown) immune suppression. (units unknown) (unknown) (unknown) (no date) (unknown) (unknown) intake and nutrition. (units unknown) (unknown) (unknown) (no date) (unknown) (unknown) midline. (units unknown) (unknown) (unknown) (no date) (unknown) (unknown) of motion intact radial and pedal pulses are normal. (units unknown) (unknown) (unknown) (no date) (unknown) (unknown) organomegaly, or masses.? Bowel sounds are present in all 4 quadrants without (units unknown) (unknown) (unknown) (no date) (unknown) (unknown) outcomes such as mortality and morbidity as well as impaired wound healing, and (units unknown) (unknown) (unknown) (no date) (unknown) (unknown) put on insulin drip for DKA. Patient says her NV slowly improved and able to (units unknown) (unknown) (unknown) (no date) (unknown) (unknown) suppositories, IV Zofran and reglan as needed (units unknown) (unknown) (unknown) (no date) (unknown) (unknown) to touch intact, no gross deficits noted of cranial nerves. (units unknown) (unknown) (unknown) (no date) (unknown) (unknown) tolerate some jello today. She has no other complaints. (units unknown) (unknown) (unknown) (no date) (unknown) (unknown) wears an insulin pum p was discontinued per hospital policy. (units unknown) (unknown) (unknown) (no date) (unknown) (unknown) wheezes, rhonchi, or rales. (units unknown) (unknown) Result panel 1652 (unknown) (no date) (unknown) (unknown) > 60 ml/min (unknown) (unknown) (no date) (unknown) (unknown) > 60 ml/min (unknown) (unknown) (no date) (unknown) (unknown) 0.62 mg/dl (unknown) (unknown) (no date) (unknown) (unknown) 101 mmol/l (unknown) (unknown) (no date) (unknown) (unknown) 128 mmol/l (unknown) (unknown) (no date) (unknown) (unknown) 13 mmol/l (unknown) (unknown) (no date) (unknown) (unknown) 273 mg/dl (unknown) (unknown) (no date) (unknown) (unknown) 273 mg/dl (unknown) (unknown) (no date) (unknown) (unknown) 3.6 mmol/l (unknown) (unknown) (no date) (unknown) (unknown) 4 mg/dl (unknown) (unknown) (no date) (unknown) (unknown) 6.5 (units unknown) (unknown) (unknown) (no date) (unknown) (unknown) 7.6 mg/dl (unknown) Result panel 1653 (unknown) (no date) (unknown) (unknown) (no value) (units unknown) (unknown) (unknown) (no date) (unknown) (unknown) NO GROWTH AFTER 48 HOURS (units unknown) (unknown) Result panel 1654 (unknown) (no date) (unknown) (unknown) (no value) (units unknown) (unknown) (unknown) (no date) (unknown) (unknown) NO GROWTH AFTER 48 HOURS (units unknown) (unknown) Result panel 1655 (unknown) (no date) (unknown) (unknown) 0 /ul (unknown) (unknown) (no date) (unknown) (unknown) 0 /ul (unknown) (unknown) (no date) (unknown) (unknown) 0.0 % (unknown) (unknown) (no date) (unknown) (unknown) 0.3 % (unknown) (unknown) (no date) (unknown) (unknown) 10.3 % (unknown) (unknown) (no date) (unknown) (unknown) 16.4 % (unknown) (unknown) (no date) (unknown) (unknown) 25.6 pg (unknown) (unknown) (no date) (unknown) (unknown) 2500 /ul (unknown) (unknown) (no date) (unknown) (unknown) 264 x10 3/ul (unknown) (unknown) (no date) (unknown) (unknown) 28.3 % (unknown) (unknown) (no date) (unknown) (unknown) 3.64 x10 6/ul (unknown) (unknown) (no date) (unknown) (unknown) 31.8 % (unknown) (unknown) (no date) (unknown) (unknown) 33.0 % (unknown) (unknown) (no date) (unknown) (unknown) 4500 /ul (unknown) (unknown) (no date) (unknown) (unknown) 57.6 % (unknown) (unknown) (no date) (unknown) (unknown) 57.6 % (unknown) (unknown) (no date) (unknown) (unknown) 7.9 x10 3/ul (unknown) (unknown) (no date) (unknown) (unknown) 7.9 x10 3/ul (unknown) (unknown) (no date) (unknown) (unknown) 77.8 fl (unknown) (unknown) (no date) (unknown) (unknown) 800 /ul (unknown) (unknown) (no date) (unknown) (unknown) 9.3 g/dl (unknown) Result panel 1656 (unknown) (no date) (unknown) (unknown) > 60 ml/min (unknown) (unknown) (no date) (unknown) (unknown) > 60 ml/min (unknown) (unknown) (no date) (unknown) (unknown) 0.58 mg/dl (unknown) (unknown) (no date) (unknown) (unknown) 0.6 mg/dl (unknown) (unknown) (no date) (unknown) (unknown) 1.6 (units unknown) (unknown) (unknown) (no date) (unknown) (unknown) 101 mmol/l (unknown) (unknown) (no date) (unknown) (unknown) 110 u/l (unknown) (unknown) (no date) (unknown) (unknown) 130 mmol/l (unknown) (unknown) (no date) (unknown) (unknown) 16 mmol/l (unknown) (unknown) (no date) (unknown) (unknown) 161 mg/dl (unknown) (unknown) (no date) (unknown) (unknown) 161 mg/dl (unknown) (unknown) (no date) (unknown) (unknown) 2 mg/dl (unknown) (unknown) (no date) (unknown) (unknown) 2.4 g/dl (unknown) (unknown) (no date) (unknown) (unknown) 20 iu/l (unknown) (unknown) (no date) (unknown) (unknown) 27 iu/l (unknown) (unknown) (no date) (unknown) (unknown) 3.4 (units unknown) (unknown) (unknown) (no date) (unknown) (unknown) 3.4 mmol/l (unknown) (unknown) (no date) (unknown) (unknown) 3.8 g/dl (unknown) (unknown) (no date) (unknown) (unknown) 6.2 g/dl (unknown) (unknown) (no date) (unknown) (unknown) 7.6 mg/dl (unknown) Result panel 1657 (unknown) (no date) (unknown) (unknown) (no value) (units unknown) (unknown) (unknown) (no date) (unknown) (unknown) <10,000 cfu/ml (unknown) (unknown) (no date) (unknown) (unknown) 40,000 - 50,000 cfu/ml (unknown) (unknown) (no date) (unknown) (unknown) GARVAGGardnerella vaginalis (units unknown) (unknown) (unknown) (no date) (unknown) (unknown) No Further Workup (units unknown) (unknown) (unknown) (no date) (unknown) (unknown) YEAYeast (units unknown) (unknown) Result panel 1658 (unknown) (no date) (unknown) (unknown) > 60 ml/min (unknown) (unknown) (no date) (unknown) (unknown) > 60 ml/min (unknown) (unknown) (no date) (unknown) (unknown) 0.56 mg/dl (unknown) (unknown) (no date) (unknown) (unknown) 102 mmol/l (unknown) (unknown) (no date) (unknown) (unknown) 130 mmol/l (unknown) (unknown) (no date) (unknown) (unknown) 159 mg/dl (unknown) (unknown) (no date) (unknown) (unknown) 159 mg/dl (unknown) (unknown) (no date) (unknown) (unknown) 17 mmol/l (unknown) (unknown) (no date) (unknown) (unknown) 2 mg/dl (unknown) (unknown) (no date) (unknown) (unknown) 3.6 (units unknown) (unknown) (unknown) (no date) (unknown) (unknown) 3.7 mmol/l (unknown) (unknown) (no date) (unknown) (unknown) 7.8 mg/dl (unknown) Result panel 1659 (unknown) (no date) (unknown) (unknown) > 60 ml/min (unknown) (unknown) (no date) (unknown) (unknown) > 60 ml/min (unknown) (unknown) (no date) (unknown) (unknown) < 2 mg/dl (unknown) (unknown) (no date) (unknown) (unknown) 0.52 mg/dl (unknown) (unknown) (no date) (unknown) (unknown) 101 mmol/l (unknown) (unknown) (no date) (unknown) (unknown) 129 mmol/l (unknown) (unknown) (no date) (unknown) (unknown) 138 mg/dl (unknown) (unknown) (no date) (unknown) (unknown) 138 mg/dl (unknown) (unknown) (no date) (unknown) (unknown) 22 mmol/l (unknown) (unknown) (no date) (unknown) (unknown) 3.4 mmol/l (unknown) (unknown) (no date) (unknown) (unknown) 3.8 (units unknown) (unknown) (unknown) (no date) (unknown) (unknown) 7.3 mg/dl (unknown) Result panel 1660 (unknown) (no date) (unknown) (unknown) (no value) (units unknown) (unknown) (unknown) (no date) (unknown) (unknown) NO GROWTH AFTER 4 DAYS (units unknown) (unknown) (unknown) (no date) (unknown) (unknown) NO GROWTH AFTER 4 DAYS (units unknown) (unknown) Result panel 1661 (unknown) (no date) (unknown) (unknown) (no value) (units unknown) (unknown) (unknown) (no date) (unknown) (unknown) #: [id number] (units unknown) (unknown) (unknown) (no date) (unknown) (unknown) (past 8 hours): (units unknown) (unknown) (unknown) (no date) (unknown) (unknown) 08/13/22 08/14/22 08/14/22 (units unknown) (unknown) (unknown) (no date) (unknown) (unknown) 08/14/22 08/14/22 (units unknown) (unknown) (unknown) (no date) (unknown) (unknown) 08/14/22 04:11 (units unknown) (unknown) (unknown) (no date) (unknown) (unknown) 08/14/22 11:55 (units unknown) (unknown) (unknown) (no date) (unknown) (unknown) 08/14/22 (units unknown) (unknown) (unknown) (no date) (unknown) (unknown) 04:11 11:55 (units unknown) (unknown) (unknown) (no date) (unknown) (unknown) 14:41 (units unknown) (unknown) (unknown) (no date) (unknown) (unknown) 22:13 04:11 04:11 (units unknown) (unknown) (unknown) (no date) (unknown) (unknown) ALT 20 (units unknown) (unknown) (unknown) (no date) (unknown) (unknown) ALT (units unknown) (unknown) (unknown) (no date) (unknown) (unknown) AST 27 (units unknown) (unknown) (unknown) (no date) (unknown) (unknown) AST (units unknown) (unknown) (unknown) (no date) (unknown) (unknown) Abdomen:? Soft diffuse generalized minimal tenderness, negative for (units unknown) (unknown) (unknown) (no date) (unknown) (unknown) Age/Sex: 27 / F (units unknown) (unknown) (unknown) (no date) (unknown) (unknown) Albumin 3.8 (units unknown) (unknown) (unknown) (no date) (unknown) (unknown) Albumin (units unknown) (unknown) (unknown) (no date) (unknown) (unknown) Albumin/Globulin Ratio 1.6 (units unknown) (unknown) (unknown) (no date) (unknown) (unknown) Albumin/Globulin Ratio (units unknown) (unknown) (unknown) (no date) (unknown) (unknown) Alkaline Phosphatase 110 (units unknown) (unknown) (unknown) (no date) (unknown) (unknown) Alkaline Phosphatase (units unknown) (unknown) (unknown) (no date) (unknown) (unknown) Anemia (units unknown) (unknown) (unknown) (no date) (unknown) (unknown) BUN 2 L < 2 L (units unknown) (unknown) (unknown) (no date) (unknown) (unknown) BUN 4 L 2 L (units unknown) (unknown) (unknown) (no date) (unknown) (unknown) BUN/Creatinine Ratio 3.6 L 3.8 L (units unknown) (unknown) (unknown) (no date) (unknown) (unknown) BUN/Creatinine Ratio 6.5 3.4 L (units unknown) (unknown) (unknown) (no date) (unknown) (unknown) Baso # (Auto) 0 (units unknown) (unknown) (unknown) (no date) (unknown) (unknown) Baso # (Auto) (units unknown) (unknown) (unknown) (no date) (unknown) (unknown) Baso % (Auto) 0.3 (units unknown) (unknown) (unknown) (no date) (unknown) (unknown) Baso % (Auto) (units unknown) (unknown) (unknown) (no date) (unknown) (unknown) Blood Pressure 120/66 (units unknown) (unknown) (unknown) (no date) (unknown) (unknown) Calcium 7.6 L 7.6 L (units unknown) (unknown) (unknown) (no date) (unknown) (unknown) Calcium 7.8 L 7.3 L (units unknown) (unknown) (unknown) (no date) (unknown) (unknown) Cannabis hyperemesis syndrome concurrent with and due to cannabis dependence (units unknown) (unknown) (unknown) (no date) (unknown) (unknown) Carbon Dioxide 13 L 16 L (units unknown) (unknown) (unknown) (no date) (unknown) (unknown) Carbon Dioxide 17 L 22 (units unknown) (unknown) (unknown) (no date) (unknown) (unknown) Cardio:? regular rat e and rhythm with no extra sounds or murmurs. (units unknown) (unknown) (unknown) (no date) (unknown) (unknown) Chest:? Breathing without nasal flaring, retractions, or labored, no tachypneic (units unknown) (unknown) (unknown) (no date) (unknown) (unknown) Chloride 101 101 (units unknown) (unknown) (unknown) (no date) (unknown) (unknown) Chloride 102 101 (units unknown) (unknown) (unknown) (no date) (unknown) (unknown) Creatinine 0.56 0.52 (units unknown) (unknown) (unknown) (no date) (unknown) (unknown) Creatinine 0.62 0.58 (units unknown) (unknown) (unknown) (no date) (unknown) (unknown) Cyclic vomiting syndrome (units unknown) (unknown) (unknown) (no date) (unknown) (unknown) DKA (diabetic ketoacidoses) (units unknown) (unknown) (unknown) (no date) (unknown) (unknown) : 1995 Acct:[id number] (units unknown) (unknown) (unknown) (no date) (unknown) (unknown) Date of Service: 08/13/22 (units unknown) (unknown) (unknown) (no date) (unknown) (unknown) Diabetes mellitus, type I (units unknown) (unknown) (unknown) (no date) (unknown) (unknown) Eos # (Auto) 0 (units unknown) (unknown) (unknown) (no date) (unknown) (unknown) Eos # (Auto) (units unknown) (unknown) (unknown) (no date) (unknown) (unknown) Eos % (Auto) 0.0 L (units unknown) (unknown) (unknown) (no date) (unknown) (unknown) Eos % (Auto) (units unknown) (unknown) (unknown) (no date) (unknown) (unknown) Estimated GFR > 60 > 60 (units unknown) (unknown) (unknown) (no date) (unknown) (unknown) Exam Narrative: (units unknown) (unknown) (unknown) (no date) (unknown) (unknown) Exam (units unknown) (unknown) (unknown) (no date) (unknown) (unknown) Family History (units unknown) (unknown) (unknown) (no date) (unknown) (unknown) Father Healthy adult (units unknown) (unknown) (unknown) (no date) (unknown) (unknown) Gastroparesis (units unknown) (unknown) (unknown) (no date) (unknown) (unknown) General:? Patient is a well-developed, well-nourished in no acute medical (units unknown) (unknown) (unknown) (no date) (unknown) (unknown) Globulin 2.4 (units unknown) (unknown) (unknown) (no date) (unknown) (unknown) Globulin (units unknown) (unknown) (unknown) (no date) (unknown) (unknown) Glucose 159 H 138 H (units unknown) (unknown) (unknown) (no date) (unknown) (unknown) Glucose 273 H D 161 H D (units unknown) (unknown) (unknown) (no date) (unknown) (unknown) HEENT:? Normocephalic, atraumatic, extraocular muscles intact. Trachea is (units unknown) (unknown) (unknown) (no date) (unknown) (unknown) Hct 28.3 L (units unknown) (unknown) (unknown) (no date) (unknown) (unknown) Hct (units unknown) (unknown) (unknown) (no date) (unknown) (unknown) Hgb 9.3 L (units unknown) (unknown) (unknown) (no date) (unknown) (unknown) Hgb (units unknown) (unknown) (unknown) (no date) (unknown) (unknown) Insulin dependent diabetes mellitus (units unknown) (unknown) (unknown) (no date) (unknown) (unknown) [address] [address] (units unknown) (unknown) (unknown) (no date) (unknown) (unknown) Laboratory Results - last 24 hr (units unknown) (unknown) (unknown) (no date) (unknown) (unknown) Labs (units unknown) (unknown) (unknown) (no date) (unknown) (unknown) Labs: (units unknown) (unknown) (unknown) (no date) (unknown) (unknown) Lungs:? Auscultation of all lung hendricks are clear without adventitious sounds, (units unknown) (unknown) (unknown) (no date) (unknown) (unknown) Lymph # (Auto) 2500 (units unknown) (unknown) (unknown) (no date) (unknown) (unknown) Lymph # (Auto) (units unknown) (unknown) (unknown) (no date) (unknown) (unknown) Lymph % (Auto) 31.8 (units unknown) (unknown) (unknown) (no date) (unknown) (unknown) Lymph % (Auto) (units unknown) (unknown) (unknown) (no date) (unknown) (unknown) MCH 25.6 L (units unknown) (unknown) (unknown) (no date) (unknown) (unknown) MCH (units unknown) (unknown) (unknown) (no date) (unknown) (unknown) MCHC 33.0 (units unknown) (unknown) (unknown) (no date) (unknown) (unknown) MCHC (units unknown) (unknown) (unknown) (no date) (unknown) (unknown) MCV 77.8 L (units unknown) (unknown) (unknown) (no date) (unknown) (unknown) MCV (units unknown) (unknown) (unknown) (no date) (unknown) (unknown) Medical History (Updated 08/12/22 @ 02:17 by ROSEMARIE Leggett) (units unknown) (unknown) (unknown) (no date) (unknown) (unknown) Migraine headache with aura (units unknown) (unknown) (unknown) (no date) (unknown) (unknown) O'Brien # (Auto) 800 (units unknown) (unknown) (unknown) (no date) (unknown) (unknown) O'Brien # (Auto) (units unknown) (unknown) (unknown) (no date) (unknown) (unknown) O'Brien % (Auto) 10.3 (units unknown) (unknown) (unknown) (no date) (unknown) (unknown) O'Brien % (Auto) (units unknown) (unknown) (unknown) (no date) (unknown) (unknown) Mother Hypertension (units unknown) (unknown) (unknown) (no date) (unknown) (unknown) Musculoskeletal:? Muscle strength and tone are equal within normal limits, no (units unknown) (unknown) (unknown) (no date) (unknown) (unknown) Myopia (units unknown) (unknown) (unknown) (no date) (unknown) (unknown) Narrative (units unknown) (unknown) (unknown) (no date) (unknown) (unknown) Neuro:? Alert and orientated x3, strength is +5/5 in all extremities, sensation (units unknown) (unknown) (unknown) (no date) (unknown) (unknown) Neut # (Auto) 4500 (units unknown) (unknown) (unknown) (no date) (unknown) (unknown) Neut # (Auto) (units unknown) (unknown) (unknown) (no date) (unknown) (unknown) Neut % (Auto) 57.6 D (units unknown) (unknown) (unknown) (no date) (unknown) (unknown) Neut % (Auto) (units unknown) (unknown) (unknown) (no date) (unknown) (unknown) Objective (units unknown) (unknown) (unknown) (no date) (unknown) (unknown) Oxygen Delivery Method Room Air (units unknown) (unknown) (unknown) (no date) (unknown) (unknown) Oxygen Flow Rate 0 (units unknown) (unknown) (unknown) (no date) (unknown) (unknown) PFSH (units unknown) (unknown) (unknown) (no date) (unknown) (unknown) Pancreatitis (units unknown) (unknown) (unknown) (no date) (unknown) (unknown) Patient: Kaur Horton MR (units unknown) (unknown) (unknown) (no date) (unknown) (unknown) Plt Count 264 (units unknown) (unknown) (unknown) (no date) (unknown) (unknown) Plt Count (units unknown) (unknown) (unknown) (no date) (unknown) (unknown) Potassium 3.6 3.4 (units unknown) (unknown) (unknown) (no date) (unknown) (unknown) Potassium 3.7 3.4 (units unknown) (unknown) (unknown) (no date) (unknown) (unknown) Progress Note (units unknown) (unknown) (unknown) (no date) (unknown) (unknown) Provider: Alonzo Dueñas D.O. (units unknown) (unknown) (unknown) (no date) (unknown) (unknown) Psych:? Patient has a well-kept appearance, appropriate affect, mental status (units unknown) (unknown) (unknown) (no date) (unknown) (unknown) Pulse Oximetry 98 (units unknown) (unknown) (unknown) (no date) (unknown) (unknown) Pulse Rate 78 (units unknown) (unknown) (unknown) (no date) (unknown) (unknown) RBC 3.64 L (units unknown) (unknown) (unknown) (no date) (unknown) (unknown) RBC (units unknown) (unknown) (unknown) (no date) (unknown) (unknown) RDW 16.4 H (units unknown) (unknown) (unknown) (no date) (unknown) (unknown) RDW (units unknown) (unknown) (unknown) (no date) (unknown) (unknown) Respiratory Rate 16 (units unknown) (unknown) (unknown) (no date) (unknown) (unknown) Signed By: (units unknown) (unknown) (unknown) (no date) (unknown) (unknown) Skin:? Warm dry and intact without rashes, ulcerations or petechiae.? (units unknown) (unknown) (unknown) (no date) (unknown) (unknown) Smoking Status: Current every day smoker (units unknown) (unknown) (unknown) (no date) (unknown) (unknown) Social History (units unknown) (unknown) (unknown) (no date) (unknown) (unknown) Sodium 128 L 130 L (units unknown) (unknown) (unknown) (no date) (unknown) (unknown) Sodium 130 L 129 L (units unknown) (unknown) (unknown) (no date) (unknown) (unknown) Status post appendectomy (units unknown) (unknown) (unknown) (no date) (unknown) (unknown) Surgical History (units unknown) (unknown) (unknown) (no date) (unknown) (unknown) Temperature 97.8 F (units unknown) (unknown) (unknown) (no date) (unknown) (unknown) Total Bilirubin 0.6 (units unknown) (unknown) (unknown) (no date) (unknown) (unknown) Total Bilirubin (units unknown) (unknown) (unknown) (no date) (unknown) (unknown) Total Protein 6.2 L (units unknown) (unknown) (unknown) (no date) (unknown) (unknown) Total Protein (units unknown) (unknown) (unknown) (no date) (unknown) (unknown) Vital Signs (units unknown) (unknown) (unknown) (no date) (unknown) (unknown) WBC 7.9 D (units unknown) (unknown) (unknown) (no date) (unknown) (unknown) WBC (units unknown) (unknown) (unknown) (no date) (unknown) (unknown) [Embedded Image Not Available] (units unknown) (unknown) (unknown) (no date) (unknown) (unknown) alcohol intake: never (units unknown) (unknown) (unknown) (no date) (unknown) (unknown) attitude thought context and judgment are appropriate for age. (units unknown) (unknown) (unknown) (no date) (unknown) (unknown) deformity, crepitus, effusions, cyanosis, clubbing or edema present.? Full range (units unknown) (unknown) (unknown) (no date) (unknown) (unknown) distress. (units unknown) (unknown) (unknown) (no date) (unknown) (unknown) guarding or rebound, positive CVA tenderness. (units unknown) (unknown) (unknown) (no date) (unknown) (unknown) household members: spouse (units unknown) (unknown) (unknown) (no date) (unknown) (unknown) midline. (units unknown) (unknown) (unknown) (no date) (unknown) (unknown) of motion intact radial and pedal pulses are normal. (units unknown) (unknown) (unknown) (no date) (unknown) (unknown) organomegaly, or masses.? Bowel sounds are present in all 4 quadrants without (units unknown) (unknown) (unknown) (no date) (unknown) (unknown) to touch intact, no gross deficits noted of cranial nerves. (units unknown) (unknown) (unknown) (no date) (unknown) (unknown) wheezes, rhonchi, or rales. (units unknown) (unknown) Result panel 1662 (unknown) (no date) (unknown) (unknown) (no value) (units unknown) (unknown) (unknown) (no date) (unknown) (unknown) #: [id number] (units unknown) (unknown) (unknown) (no date) (unknown) (unknown) (past 8 hours): (units unknown) (unknown) (unknown) (no date) (unknown) (unknown) -A1c 7.6% (units unknown) (unknown) (unknown) (no date) (unknown) (unknown) -BMI 22.8 (units unknown) (unknown) (unknown) (no date) (unknown) (unknown) -BMP q.4 hours, glucose checks q.2 hours-until gap closed<12 (units unknown) (unknown) (unknown) (no date) (unknown) (unknown) -BNP q.4 hours (units unknown) (unknown) (unknown) (no date) (unknown) (unknown) -Haldol 0.5 IV PRN i n addition to Phenergan suppositories, IV Zofran and reglan (units unknown) (unknown) (unknown) (no date) (unknown) (unknown) -admitted under diabetic protocols, sliding scale for coverage, patient normally (units unknown) (unknown) (unknown) (no date) (unknown) (unknown) -antiemetics, pain control (units unknown) (unknown) (unknown) (no date) (unknown) (unknown) -cultures growing E. coli so changed to rocephin 1g daily x3 days (units unknown) (unknown) (unknown) (no date) (unknown) (unknown) -dietary consult ordered to evaluate and implement steps to improve caloric (units unknown) (unknown) (unknown) (no date) (unknown) (unknown) -initiate insulin drip (units unknown) (unknown) (unknown) (no date) (unknown) (unknown) -initiated for complicated sepsis UTI meropenem and vancomycin (per up-to date) (units unknown) (unknown) (unknown) (no date) (unknown) (unknown) -last A1c 01/31/2022 6.3 -reviewed endocrinology notes (units unknown) (unknown) (unknown) (no date) (unknown) (unknown) -patient's malnutrition places them at high risk for medical and surgical (units unknown) (unknown) (unknown) (no date) (unknown) (unknown) -potassium 3.3 on admission (units unknown) (unknown) (unknown) (no date) (unknown) (unknown) -potassium goal: 4-5 (units unknown) (unknown) (unknown) (no date) (unknown) (unknown) -will dose Humalog per patient's personal dosing schedule. (units unknown) (unknown) (unknown) (no date) (unknown) (unknown) 08/13/22 08/14/22 08/14/22 (units unknown) (unknown) (unknown) (no date) (unknown) (unknown) 08/14/22 08/14/22 (units unknown) (unknown) (unknown) (no date) (unknown) (unknown) 08/14/22 04:11 (units unknown) (unknown) (unknown) (no date) (unknown) (unknown) 08/14/22 11:55 (units unknown) (unknown) (unknown) (no date) (unknown) (unknown) 08/14/22 (units unknown) (unknown) (unknown) (no date) (unknown) (unknown) 04:11 11:55 (units unknown) (unknown) (unknown) (no date) (unknown) (unknown) 1. Lactic acidosis sepsis (metabolic) without septic shock due to (units unknown) (unknown) (unknown) (no date) (unknown) (unknown) 14:41 (units unknown) (unknown) (unknown) (no date) (unknown) (unknown) 2. DKA 2/2 insulin-dependent type 1 diabetic with peripheral neuropathy and (units unknown) (unknown) (unknown) (no date) (unknown) (unknown) 22:13 04:11 04:11 (units unknown) (unknown) (unknown) (no date) (unknown) (unknown) 3. Hypokalemia, acute, secondary to volume loss N/V, present on admission (units unknown) (unknown) (unknown) (no date) (unknown) (unknown) 4. Malnutrition, mild, acute on chronic, present on admission (units unknown) (unknown) (unknown) (no date) (unknown) (unknown) ALT 20 (units unknown) (unknown) (unknown) (no date) (unknown) (unknown) ALT (units unknown) (unknown) (unknown) (no date) (unknown) (unknown) AST 27 (units unknown) (unknown) (unknown) (no date) (unknown) (unknown) AST (units unknown) (unknown) (unknown) (no date) (unknown) (unknown) Abdomen:? Soft diffuse generalized minimal tenderness, negative for (units unknown) (unknown) (unknown) (no date) (unknown) (unknown) Age/Sex: 27 / F (units unknown) (unknown) (unknown) (no date) (unknown) (unknown) Albumin 3.8 (units unknown) (unknown) (unknown) (no date) (unknown) (unknown) Albumin (units unknown) (unknown) (unknown) (no date) (unknown) (unknown) Albumin/Globulin Ratio 1.6 (units unknown) (unknown) (unknown) (no date) (unknown) (unknown) Albumin/Globulin Ratio (units unknown) (unknown) (unknown) (no date) (unknown) (unknown) Alkaline Phosphatase 110 (units unknown) (unknown) (unknown) (no date) (unknown) (unknown) Alkaline Phosphatase (units unknown) (unknown) (unknown) (no date) (unknown) (unknown) Anemia (units unknown) (unknown) (unknown) (no date) (unknown) (unknown) Assessment + Plan narrative: (units unknown) (unknown) (unknown) (no date) (unknown) (unknown) Assessment + Plan (units unknown) (unknown) (unknown) (no date) (unknown) (unknown) BUN 2 L < 2 L (units unknown) (unknown) (unknown) (no date) (unknown) (unknown) BUN 4 L 2 L (units unknown) (unknown) (unknown) (no date) (unknown) (unknown) BUN/Creatinine Ratio 3.6 L 3.8 L (units unknown) (unknown) (unknown) (no date) (unknown) (unknown) BUN/Creatinine Ratio 6.5 3.4 L (units unknown) (unknown) (unknown) (no date) (unknown) (unknown) Baso # (Auto) 0 (units unknown) (unknown) (unknown) (no date) (unknown) (unknown) Baso # (Auto) (units unknown) (unknown) (unknown) (no date) (unknown) (unknown) Baso % (Auto) 0.3 (units unknown) (unknown) (unknown) (no date) (unknown) (unknown) Baso % (Auto) (units unknown) (unknown) (unknown) (no date) (unknown) (unknown) Blood Pressure 120/66 (units unknown) (unknown) (unknown) (no date) (unknown) (unknown) COVID PCR:Ordered (units unknown) (unknown) (unknown) (no date) (unknown) (unknown) Calcium 7.6 L 7.6 L (units unknown) (unknown) (unknown) (no date) (unknown) (unknown) Calcium 7.8 L 7.3 L (units unknown) (unknown) (unknown) (no date) (unknown) (unknown) Cannabis hyperemesis syndrome concurrent with and due to cannabis dependence (units unknown) (unknown) (unknown) (no date) (unknown) (unknown) Carbon Dioxide 13 L 16 L (units unknown) (unknown) (unknown) (no date) (unknown) (unknown) Carbon Dioxide 17 L 22 (units unknown) (unknown) (unknown) (no date) (unknown) (unknown) Cardio:? regular rat e and rhythm with no extra sounds or murmurs. (units unknown) (unknown) (unknown) (no date) (unknown) (unknown) Chest:? Breathing without nasal flaring, retractions, or labored, no tachypneic (units unknown) (unknown) (unknown) (no date) (unknown) (unknown) Chloride 101 101 (units unknown) (unknown) (unknown) (no date) (unknown) (unknown) Chloride 102 101 (units unknown) (unknown) (unknown) (no date) (unknown) (unknown) Code status:? Full code (units unknown) (unknown) (unknown) (no date) (unknown) (unknown) Creatinine 0.56 0.52 (units unknown) (unknown) (unknown) (no date) (unknown) (unknown) Creatinine 0.62 0.58 (units unknown) (unknown) (unknown) (no date) (unknown) (unknown) Cyclic vomiting syndrome (units unknown) (unknown) (unknown) (no date) (unknown) (unknown) DKA (diabetic ketoacidoses) (units unknown) (unknown) (unknown) (no date) (unknown) (unknown) : 1995 Acct:[id number] (units unknown) (unknown) (unknown) (no date) (unknown) (unknown) DVT/VTE prophylaxis: ? SCDs, refusing lovenox (units unknown) (unknown) (unknown) (no date) (unknown) (unknown) Date of Service: 08/13/22 (units unknown) (unknown) (unknown) (no date) (unknown) (unknown) Diabetes mellitus, type I (units unknown) (unknown) (unknown) (no date) (unknown) (unknown) Dispo: Home pending improvement in DKA and NV. 1-2 days. (units unknown) (unknown) (unknown) (no date) (unknown) (unknown) Eos # (Auto) 0 (units unknown) (unknown) (unknown) (no date) (unknown) (unknown) Eos # (Auto) (units unknown) (unknown) (unknown) (no date) (unknown) (unknown) Eos % (Auto) 0.0 L (units unknown) (unknown) (unknown) (no date) (unknown) (unknown) Eos % (Auto) (units unknown) (unknown) (unknown) (no date) (unknown) (unknown) Estimated GFR > 60 > 60 (units unknown) (unknown) (unknown) (no date) (unknown) (unknown) Exam Narrative: (units unknown) (unknown) (unknown) (no date) (unknown) (unknown) Exam (units unknown) (unknown) (unknown) (no date) (unknown) (unknown) Family History (units unknown) (unknown) (unknown) (no date) (unknown) (unknown) Father Healthy adult (units unknown) (unknown) (unknown) (no date) (unknown) (unknown) Gastroparesis (units unknown) (unknown) (unknown) (no date) (unknown) (unknown) General:? Patient is a well-developed, well-nourished in no acute medical (units unknown) (unknown) (unknown) (no date) (unknown) (unknown) Globulin 2.4 (units unknown) (unknown) (unknown) (no date) (unknown) (unknown) Globulin (units unknown) (unknown) (unknown) (no date) (unknown) (unknown) Glucose 159 H 138 H (units unknown) (unknown) (unknown) (no date) (unknown) (unknown) Glucose 273 H D 161 H D (units unknown) (unknown) (unknown) (no date) (unknown) (unknown) HEENT:? Normocephalic, atraumatic, extraocular muscles intact. Trachea is (units unknown) (unknown) (unknown) (no date) (unknown) (unknown) Hct 28.3 L (units unknown) (unknown) (unknown) (no date) (unknown) (unknown) Hct (units unknown) (unknown) (unknown) (no date) (unknown) (unknown) Hgb 9.3 L (units unknown) (unknown) (unknown) (no date) (unknown) (unknown) Hgb (units unknown) (unknown) (unknown) (no date) (unknown) (unknown) Insulin dependent diabetes mellitus (units unknown) (unknown) (unknown) (no date) (unknown) (unknown) Interval history: (units unknown) (unknown) (unknown) (no date) (unknown) (unknown) [address] [address] (units unknown) (unknown) (unknown) (no date) (unknown) (unknown) Laboratory Results - last 24 hr (units unknown) (unknown) (unknown) (no date) (unknown) (unknown) Labs (units unknown) (unknown) (unknown) (no date) (unknown) (unknown) Labs: (units unknown) (unknown) (unknown) (no date) (unknown) (unknown) Lungs:? Auscultation of all lung hendricks are clear without adventitious sounds, (units unknown) (unknown) (unknown) (no date) (unknown) (unknown) Lymph # (Auto) 2500 (units unknown) (unknown) (unknown) (no date) (unknown) (unknown) Lymph # (Auto) (units unknown) (unknown) (unknown) (no date) (unknown) (unknown) Lymph % (Auto) 31.8 (units unknown) (unknown) (unknown) (no date) (unknown) (unknown) Lymph % (Auto) (units unknown) (unknown) (unknown) (no date) (unknown) (unknown) MCH 25.6 L (units unknown) (unknown) (unknown) (no date) (unknown) (unknown) MCH (units unknown) (unknown) (unknown) (no date) (unknown) (unknown) MCHC 33.0 (units unknown) (unknown) (unknown) (no date) (unknown) (unknown) MCHC (units unknown) (unknown) (unknown) (no date) (unknown) (unknown) MCV 77.8 L (units unknown) (unknown) (unknown) (no date) (unknown) (unknown) MCV (units unknown) (unknown) (unknown) (no date) (unknown) (unknown) Medical History (Updated 08/12/22 @ 02:17 by Gracia Smith [facility]) (units unknown) (unknown) (unknown) (no date) (unknown) (unknown) Migraine headache with aura (units unknown) (unknown) (unknown) (no date) (unknown) (unknown) O'Brien # (Auto) 800 (units unknown) (unknown) (unknown) (no date) (unknown) (unknown) O'Brien # (Auto) (units unknown) (unknown) (unknown) (no date) (unknown) (unknown) O'Brien % (Auto) 10.3 (units unknown) (unknown) (unknown) (no date) (unknown) (unknown) O'Brien % (Auto) (units unknown) (unknown) (unknown) (no date) (unknown) (unknown) Mother Hypertension (units unknown) (unknown) (unknown) (no date) (unknown) (unknown) Musculoskeletal:? Muscle strength and tone are equal within normal limits, no (units unknown) (unknown) (unknown) (no date) (unknown) (unknown) Myopia (units unknown) (unknown) (unknown) (no date) (unknown) (unknown) NV improving slowly. Insulin drip weaned off as gap now has closed. (units unknown) (unknown) (unknown) (no date) (unknown) (unknown) Narrative (units unknown) (unknown) (unknown) (no date) (unknown) (unknown) Neuro:? Alert and orientated x3, strength is +5/5 in all extremities, sensation (units unknown) (unknown) (unknown) (no date) (unknown) (unknown) Neut # (Auto) 4500 (units unknown) (unknown) (unknown) (no date) (unknown) (unknown) Neut # (Auto) (units unknown) (unknown) (unknown) (no date) (unknown) (unknown) Neut % (Auto) 57.6 D (units unknown) (unknown) (unknown) (no date) (unknown) (unknown) Neut % (Auto) (units unknown) (unknown) (unknown) (no date) (unknown) (unknown) Objective (units unknown) (unknown) (unknown) (no date) (unknown) (unknown) Oxygen Delivery Method Room Air (units unknown) (unknown) (unknown) (no date) (unknown) (unknown) Oxygen Flow Rate 0 (units unknown) (unknown) (unknown) (no date) (unknown) (unknown) PFSH (units unknown) (unknown) (unknown) (no date) (unknown) (unknown) Pancreatitis (units unknown) (unknown) (unknown) (no date) (unknown) (unknown) Patient: Romeo MorrisKaur Parikh MR (units unknown) (unknown) (unknown) (no date) (unknown) (unknown) Plt Count 264 (units unknown) (unknown) (unknown) (no date) (unknown) (unknown) Plt Count (units unknown) (unknown) (unknown) (no date) (unknown) (unknown) Potassium 3.6 3.4 (units unknown) (unknown) (unknown) (no date) (unknown) (unknown) Potassium 3.7 3.4 (units unknown) (unknown) (unknown) (no date) (unknown) (unknown) Progress Note (units unknown) (unknown) (unknown) (no date) (unknown) (unknown) Provider: Alonzo Dueñas D.O. (units unknown) (unknown) (unknown) (no date) (unknown) (unknown) Psych:? Patient has a well-kept appearance, appropriate affect, mental status (units unknown) (unknown) (unknown) (no date) (unknown) (unknown) Pulse Oximetry 98 (units unknown) (unknown) (unknown) (no date) (unknown) (unknown) Pulse Rate 78 (units unknown) (unknown) (unknown) (no date) (unknown) (unknown) RBC 3.64 L (units unknown) (unknown) (unknown) (no date) (unknown) (unknown) RBC (units unknown) (unknown) (unknown) (no date) (unknown) (unknown) RDW 16.4 H (units unknown) (unknown) (unknown) (no date) (unknown) (unknown) RDW (units unknown) (unknown) (unknown) (no date) (unknown) (unknown) Respiratory Rate 16 (units unknown) (unknown) (unknown) (no date) (unknown) (unknown) Signed By: (units unknown) (unknown) (unknown) (no date) (unknown) (unknown) Skin:? Warm dry and intact without rashes, ulcerations or petechiae.? (units unknown) (unknown) (unknown) (no date) (unknown) (unknown) Smoking Status: Current every day smoker (units unknown) (unknown) (unknown) (no date) (unknown) (unknown) Social History (units unknown) (unknown) (unknown) (no date) (unknown) (unknown) Sodium 128 L 130 L (units unknown) (unknown) (unknown) (no date) (unknown) (unknown) Sodium 130 L 129 L (units unknown) (unknown) (unknown) (no date) (unknown) (unknown) Status post appendectomy (units unknown) (unknown) (unknown) (no date) (unknown) (unknown) Subjective (units unknown) (unknown) (unknown) (no date) (unknown) (unknown) Surgical History (units unknown) (unknown) (unknown) (no date) (unknown) (unknown) Surrogate decision maker:? Spouse Khoa (units unknown) (unknown) (unknown) (no date) (unknown) (unknown) Temperature 97.8 F (units unknown) (unknown) (unknown) (no date) (unknown) (unknown) Total Bilirubin 0.6 (units unknown) (unknown) (unknown) (no date) (unknown) (unknown) Total Bilirubin (units unknown) (unknown) (unknown) (no date) (unknown) (unknown) Total Protein 6.2 L (units unknown) (unknown) (unknown) (no date) (unknown) (unknown) Total Protein (units unknown) (unknown) (unknown) (no date) (unknown) (unknown) UTI/pyelonephritis, with intractable nausea vomiting, acute, present on (units unknown) (unknown) (unknown) (no date) (unknown) (unknown) Vital Signs (units unknown) (unknown) (unknown) (no date) (unknown) (unknown) WBC 7.9 D (units unknown) (unknown) (unknown) (no date) (unknown) (unknown) WBC (units unknown) (unknown) (unknown) (no date) (unknown) (unknown) [Embedded Image Not Available] (units unknown) (unknown) (unknown) (no date) (unknown) (unknown) admission (units unknown) (unknown) (unknown) (no date) (unknown) (unknown) alcohol intake: never (units unknown) (unknown) (unknown) (no date) (unknown) (unknown) as needed (units unknown) (unknown) (unknown) (no date) (unknown) (unknown) attitude thought context and judgment are appropriate for age. (units unknown) (unknown) (unknown) (no date) (unknown) (unknown) complications in relation to acute illness/chronic illness.? This increases the (units unknown) (unknown) (unknown) (no date) (unknown) (unknown) deformity, crepitus, effusions, cyanosis, clubbing or edema present.? Full range (units unknown) (unknown) (unknown) (no date) (unknown) (unknown) difficulty in complexity of medical management and increases the chances poor (units unknown) (unknown) (unknown) (no date) (unknown) (unknown) distress. Somnolent. (units unknown) (unknown) (unknown) (no date) (unknown) (unknown) gastroparesis, chronic, present on admission (units unknown) (unknown) (unknown) (no date) (unknown) (unknown) guarding or rebound, positive CVA tenderness. (units unknown) (unknown) (unknown) (no date) (unknown) (unknown) household members: spouse (units unknown) (unknown) (unknown) (no date) (unknown) (unknown) immune suppression. (units unknown) (unknown) (unknown) (no date) (unknown) (unknown) intake and nutrition. (units unknown) (unknown) (unknown) (no date) (unknown) (unknown) midline. (units unknown) (unknown) (unknown) (no date) (unknown) (unknown) of motion intact radial and pedal pulses are normal. (units unknown) (unknown) (unknown) (no date) (unknown) (unknown) organomegaly, or masses.? Bowel sounds are present in all 4 quadrants without (units unknown) (unknown) (unknown) (no date) (unknown) (unknown) outcomes such as mortality and morbidity as well as impaired wound healing, and (units unknown) (unknown) (unknown) (no date) (unknown) (unknown) to touch intact, no gross deficits noted of cranial nerves. (units unknown) (unknown) (unknown) (no date) (unknown) (unknown) wears an insulin pum p was discontinued per hospital policy. (units unknown) (unknown) (unknown) (no date) (unknown) (unknown) wheezes, rhonchi, or rales. (units unknown) (unknown) Result panel 1663 (unknown) (no date) (unknown) (unknown) (no value) (units unknown) (unknown) (unknown) (no date) (unknown) (unknown) #: [id number] (units unknown) (unknown) (unknown) (no date) (unknown) (unknown) (past 8 hours): (units unknown) (unknown) (unknown) (no date) (unknown) (unknown) -A1c 7.6% (units unknown) (unknown) (unknown) (no date) (unknown) (unknown) -BMI 22.8 (units unknown) (unknown) (unknown) (no date) (unknown) (unknown) -BMP on 08/13 with bicarb 9, ketones positive and pH 7.2 so started on insulin (units unknown) (unknown) (unknown) (no date) (unknown) (unknown) -BNP q.4 hours (units unknown) (unknown) (unknown) (no date) (unknown) (unknown) -Haldol 0.5 IV PRN i n addition to Phenergan suppositories, IV Zofran and reglan (units unknown) (unknown) (unknown) (no date) (unknown) (unknown) -NV now improving an d tolerating some po intake (units unknown) (unknown) (unknown) (no date) (unknown) (unknown) -admitted under diabetic protocols, sliding scale for coverage, patient normally (units unknown) (unknown) (unknown) (no date) (unknown) (unknown) -antiemetics, pain control (units unknown) (unknown) (unknown) (no date) (unknown) (unknown) -cultures growing E. coli so changed to rocephin 1g daily x3 days (units unknown) (unknown) (unknown) (no date) (unknown) (unknown) -dietary consult ordered to evaluate and implement steps to improve caloric (units unknown) (unknown) (unknown) (no date) (unknown) (unknown) -initiated for complicated sepsis UTI meropenem and vancomycin (per up-to date) (units unknown) (unknown) (unknown) (no date) (unknown) (unknown) -last A1c 01/31/2022 6.3 -reviewed endocrinology notes (units unknown) (unknown) (unknown) (no date) (unknown) (unknown) -patient's malnutrition places them at high risk for medical and surgical (units unknown) (unknown) (unknown) (no date) (unknown) (unknown) -potassium 3.3 on admission (units unknown) (unknown) (unknown) (no date) (unknown) (unknown) -potassium goal: 4-5 (units unknown) (unknown) (unknown) (no date) (unknown) (unknown) -transitioned to lantus 20u BID (units unknown) (unknown) (unknown) (no date) (unknown) (unknown) -weaned off insulin drip on 08/14 after gap closed to 6 (units unknown) (unknown) (unknown) (no date) (unknown) (unknown) 08/13/22 08/14/22 08/14/22 (units unknown) (unknown) (unknown) (no date) (unknown) (unknown) 08/14/22 08/14/22 (units unknown) (unknown) (unknown) (no date) (unknown) (unknown) 08/14/22 04:11 (units unknown) (unknown) (unknown) (no date) (unknown) (unknown) 08/14/22 11:55 (units unknown) (unknown) (unknown) (no date) (unknown) (unknown) 08/14/22 1740 (units unknown) (unknown) (unknown) (no date) (unknown) (unknown) 08/14/22 (units unknown) (unknown) (unknown) (no date) (unknown) (unknown) 04:11 11:55 (units unknown) (unknown) (unknown) (no date) (unknown) (unknown) 1. Lactic acidosis sepsis (metabolic) without septic shock due to (units unknown) (unknown) (unknown) (no date) (unknown) (unknown) 14:41 (units unknown) (unknown) (unknown) (no date) (unknown) (unknown) 2. DKA 2/2 insulin-dependent type 1 diabetic with peripheral neuropathy and (units unknown) (unknown) (unknown) (no date) (unknown) (unknown) 22:13 04:11 04:11 (units unknown) (unknown) (unknown) (no date) (unknown) (unknown) 3. Hypokalemia, acute, secondary to volume loss N/V, present on admission (units unknown) (unknown) (unknown) (no date) (unknown) (unknown) 4. Malnutrition, mild, acute on chronic, present on admission (units unknown) (unknown) (unknown) (no date) (unknown) (unknown) ALT 20 (units unknown) (unknown) (unknown) (no date) (unknown) (unknown) ALT (units unknown) (unknown) (unknown) (no date) (unknown) (unknown) AST 27 (units unknown) (unknown) (unknown) (no date) (unknown) (unknown) AST (units unknown) (unknown) (unknown) (no date) (unknown) (unknown) Abdomen:? Soft diffuse generalized minimal tenderness, negative for (units unknown) (unknown) (unknown) (no date) (unknown) (unknown) Age/Sex: 27 / F (units unknown) (unknown) (unknown) (no date) (unknown) (unknown) Albumin 3.8 (units unknown) (unknown) (unknown) (no date) (unknown) (unknown) Albumin (units unknown) (unknown) (unknown) (no date) (unknown) (unknown) Albumin/Globulin Ratio 1.6 (units unknown) (unknown) (unknown) (no date) (unknown) (unknown) Albumin/Globulin Ratio (units unknown) (unknown) (unknown) (no date) (unknown) (unknown) Alkaline Phosphatase 110 (units unknown) (unknown) (unknown) (no date) (unknown) (unknown) Alkaline Phosphatase (units unknown) (unknown) (unknown) (no date) (unknown) (unknown) Anemia (units unknown) (unknown) (unknown) (no date) (unknown) (unknown) Assessment + Plan narrative: (units unknown) (unknown) (unknown) (no date) (unknown) (unknown) Assessment + Plan (units unknown) (unknown) (unknown) (no date) (unknown) (unknown) BUN 2 L < 2 L (units unknown) (unknown) (unknown) (no date) (unknown) (unknown) BUN 4 L 2 L (units unknown) (unknown) (unknown) (no date) (unknown) (unknown) BUN/Creatinine Ratio 3.6 L 3.8 L (units unknown) (unknown) (unknown) (no date) (unknown) (unknown) BUN/Creatinine Ratio 6.5 3.4 L (units unknown) (unknown) (unknown) (no date) (unknown) (unknown) Baso # (Auto) 0 (units unknown) (unknown) (unknown) (no date) (unknown) (unknown) Baso # (Auto) (units unknown) (unknown) (unknown) (no date) (unknown) (unknown) Baso % (Auto) 0.3 (units unknown) (unknown) (unknown) (no date) (unknown) (unknown) Baso % (Auto) (units unknown) (unknown) (unknown) (no date) (unknown) (unknown) Blood Pressure 120/66 (units unknown) (unknown) (unknown) (no date) (unknown) (unknown) COVID PCR:Ordered (units unknown) (unknown) (unknown) (no date) (unknown) (unknown) Calcium 7.6 L 7.6 L (units unknown) (unknown) (unknown) (no date) (unknown) (unknown) Calcium 7.8 L 7.3 L (units unknown) (unknown) (unknown) (no date) (unknown) (unknown) Cannabis hyperemesis syndrome concurrent with and due to cannabis dependence (units unknown) (unknown) (unknown) (no date) (unknown) (unknown) Carbon Dioxide 13 L 16 L (units unknown) (unknown) (unknown) (no date) (unknown) (unknown) Carbon Dioxide 17 L 22 (units unknown) (unknown) (unknown) (no date) (unknown) (unknown) Cardio:? regular rat e and rhythm with no extra sounds or murmurs. (units unknown) (unknown) (unknown) (no date) (unknown) (unknown) Chest:? Breathing without nasal flaring, retractions, or labored, no tachypneic (units unknown) (unknown) (unknown) (no date) (unknown) (unknown) Chloride 101 101 (units unknown) (unknown) (unknown) (no date) (unknown) (unknown) Chloride 102 101 (units unknown) (unknown) (unknown) (no date) (unknown) (unknown) Code status:? Full code (units unknown) (unknown) (unknown) (no date) (unknown) (unknown) Creatinine 0.56 0.52 (units unknown) (unknown) (unknown) (no date) (unknown) (unknown) Creatinine 0.62 0.58 (units unknown) (unknown) (unknown) (no date) (unknown) (unknown) Cyclic vomiting syndrome (units unknown) (unknown) (unknown) (no date) (unknown) (unknown) DKA (diabetic ketoacidoses) (units unknown) (unknown) (unknown) (no date) (unknown) (unknown) : 1995 Acct:[id number] (units unknown) (unknown) (unknown) (no date) (unknown) (unknown) DVT/VTE prophylaxis: ? SCDs, refusing lovenox (units unknown) (unknown) (unknown) (no date) (unknown) (unknown) Date of Service: 08/13/22 (units unknown) (unknown) (unknown) (no date) (unknown) (unknown) Diabetes mellitus, type I (units unknown) (unknown) (unknown) (no date) (unknown) (unknown) Dispo: Home likely o n 08/15. (units unknown) (unknown) (unknown) (no date) (unknown) (unknown) Eos # (Auto) 0 (units unknown) (unknown) (unknown) (no date) (unknown) (unknown) Eos # (Auto) (units unknown) (unknown) (unknown) (no date) (unknown) (unknown) Eos % (Auto) 0.0 L (units unknown) (unknown) (unknown) (no date) (unknown) (unknown) Eos % (Auto) (units unknown) (unknown) (unknown) (no date) (unknown) (unknown) Estimated GFR > 60 > 60 (units unknown) (unknown) (unknown) (no date) (unknown) (unknown) Exam Narrative: (units unknown) (unknown) (unknown) (no date) (unknown) (unknown) Exam (units unknown) (unknown) (unknown) (no date) (unknown) (unknown) Family History (units unknown) (unknown) (unknown) (no date) (unknown) (unknown) Father Healthy adult (units unknown) (unknown) (unknown) (no date) (unknown) (unknown) Gastroparesis (units unknown) (unknown) (unknown) (no date) (unknown) (unknown) General:? Patient is a well-developed, well-nourished in no acute medical (units unknown) (unknown) (unknown) (no date) (unknown) (unknown) Globulin 2.4 (units unknown) (unknown) (unknown) (no date) (unknown) (unknown) Globulin (units unknown) (unknown) (unknown) (no date) (unknown) (unknown) Glucose 159 H 138 H (units unknown) (unknown) (unknown) (no date) (unknown) (unknown) Glucose 273 H D 161 H D (units unknown) (unknown) (unknown) (no date) (unknown) (unknown) HEENT:? Normocephalic, atraumatic, extraocular muscles intact. Trachea is (units unknown) (unknown) (unknown) (no date) (unknown) (unknown) Hct 28.3 L (units unknown) (unknown) (unknown) (no date) (unknown) (unknown) Hct (units unknown) (unknown) (unknown) (no date) (unknown) (unknown) Hgb 9.3 L (units unknown) (unknown) (unknown) (no date) (unknown) (unknown) Hgb (units unknown) (unknown) (unknown) (no date) (unknown) (unknown) Insulin dependent diabetes mellitus (units unknown) (unknown) (unknown) (no date) (unknown) (unknown) Interval history: (units unknown) (unknown) (unknown) (no date) (unknown) (unknown) [address] [id number] (units unknown) (unknown) (unknown) (no date) (unknown) (unknown) Laboratory Results - last 24 hr (units unknown) (unknown) (unknown) (no date) (unknown) (unknown) Labs (units unknown) (unknown) (unknown) (no date) (unknown) (unknown) Labs: (units unknown) (unknown) (unknown) (no date) (unknown) (unknown) Lungs:? Auscultation of all lung hendricks are clear without adventitious sounds, (units unknown) (unknown) (unknown) (no date) (unknown) (unknown) Lymph # (Auto) 2500 (units unknown) (unknown) (unknown) (no date) (unknown) (unknown) Lymph # (Auto) (units unknown) (unknown) (unknown) (no date) (unknown) (unknown) Lymph % (Auto) 31.8 (units unknown) (unknown) (unknown) (no date) (unknown) (unknown) Lymph % (Auto) (units unknown) (unknown) (unknown) (no date) (unknown) (unknown) MCH 25.6 L (units unknown) (unknown) (unknown) (no date) (unknown) (unknown) MCH (units unknown) (unknown) (unknown) (no date) (unknown) (unknown) MCHC 33.0 (units unknown) (unknown) (unknown) (no date) (unknown) (unknown) MCHC (units unknown) (unknown) (unknown) (no date) (unknown) (unknown) MCV 77.8 L (units unknown) (unknown) (unknown) (no date) (unknown) (unknown) MCV (units unknown) (unknown) (unknown) (no date) (unknown) (unknown) Medical History (Updated 08/12/22 @ 02:17 by OPAL Leggett-) (units unknown) (unknown) (unknown) (no date) (unknown) (unknown) Migraine headache with aura (units unknown) (unknown) (unknown) (no date) (unknown) (unknown) O'Brien # (Auto) 800 (units unknown) (unknown) (unknown) (no date) (unknown) (unknown) O[place]Brien # (Auto) (units unknown) (unknown) (unknown) (no date) (unknown) (unknown) O[place]Brien % (Auto) 10.3 (units unknown) (unknown) (unknown) (no date) (unknown) (unknown) O[place]Brien % (Auto) (units unknown) (unknown) (unknown) (no date) (unknown) (unknown) Mother Hypertension (units unknown) (unknown) (unknown) (no date) (unknown) (unknown) Musculoskeletal:? Muscle strength and tone are equal within normal limits, no (units unknown) (unknown) (unknown) (no date) (unknown) (unknown) Myopia (units unknown) (unknown) (unknown) (no date) (unknown) (unknown) NV improving slowly. Insulin drip weaned off as gap now has closed. (units unknown) (unknown) (unknown) (no date) (unknown) (unknown) Narrative (units unknown) (unknown) (unknown) (no date) (unknown) (unknown) Neuro:? Alert and orientated x3, strength is +5/5 in all extremities, sensation (units unknown) (unknown) (unknown) (no date) (unknown) (unknown) Neut # (Auto) 4500 (units unknown) (unknown) (unknown) (no date) (unknown) (unknown) Neut # (Auto) (units unknown) (unknown) (unknown) (no date) (unknown) (unknown) Neut % (Auto) 57.6 D (units unknown) (unknown) (unknown) (no date) (unknown) (unknown) Neut % (Auto) (units unknown) (unknown) (unknown) (no date) (unknown) (unknown) Objective (units unknown) (unknown) (unknown) (no date) (unknown) (unknown) Oxygen Delivery Method Room Air (units unknown) (unknown) (unknown) (no date) (unknown) (unknown) Oxygen Flow Rate 0 (units unknown) (unknown) (unknown) (no date) (unknown) (unknown) PFSH (units unknown) (unknown) (unknown) (no date) (unknown) (unknown) Pancreatitis (units unknown) (unknown) (unknown) (no date) (unknown) (unknown) Patient: Kaur Horton MR (units unknown) (unknown) (unknown) (no date) (unknown) (unknown) Plt Count 264 (units unknown) (unknown) (unknown) (no date) (unknown) (unknown) Plt Count (units unknown) (unknown) (unknown) (no date) (unknown) (unknown) Potassium 3.6 3.4 (units unknown) (unknown) (unknown) (no date) (unknown) (unknown) Potassium 3.7 3.4 (units unknown) (unknown) (unknown) (no date) (unknown) (unknown) Progress Note (units unknown) (unknown) (unknown) (no date) (unknown) (unknown) Provider: Alonzo Dueñas D.O. (units unknown) (unknown) (unknown) (no date) (unknown) (unknown) Psych:? Patient has a well-kept appearance, appropriate affect, mental status (units unknown) (unknown) (unknown) (no date) (unknown) (unknown) Pulse Oximetry 98 (units unknown) (unknown) (unknown) (no date) (unknown) (unknown) Pulse Rate 78 (units unknown) (unknown) (unknown) (no date) (unknown) (unknown) RBC 3.64 L (units unknown) (unknown) (unknown) (no date) (unknown) (unknown) RBC (units unknown) (unknown) (unknown) (no date) (unknown) (unknown) RDW 16.4 H (units unknown) (unknown) (unknown) (no date) (unknown) (unknown) RDW (units unknown) (unknown) (unknown) (no date) (unknown) (unknown) Respiratory Rate 16 (units unknown) (unknown) (unknown) (no date) (unknown) (unknown) Signed By:<Electronically signed by Alonzo Dueñas D.O.> (units unknown) (unknown) (unknown) (no date) (unknown) (unknown) Skin:? Warm dry and intact without rashes, ulcerations or petechiae.? (units unknown) (unknown) (unknown) (no date) (unknown) (unknown) Smoking Status: Current every day smoker (units unknown) (unknown) (unknown) (no date) (unknown) (unknown) Social History (units unknown) (unknown) (unknown) (no date) (unknown) (unknown) Sodium 128 L 130 L (units unknown) (unknown) (unknown) (no date) (unknown) (unknown) Sodium 130 L 129 L (units unknown) (unknown) (unknown) (no date) (unknown) (unknown) Status post appendectomy (units unknown) (unknown) (unknown) (no date) (unknown) (unknown) Subjective (units unknown) (unknown) (unknown) (no date) (unknown) (unknown) Surgical History (units unknown) (unknown) (unknown) (no date) (unknown) (unknown) Surrogate decision maker:? Spouse Khoa (units unknown) (unknown) (unknown) (no date) (unknown) (unknown) Temperature 97.8 F (units unknown) (unknown) (unknown) (no date) (unknown) (unknown) Total Bilirubin 0.6 (units unknown) (unknown) (unknown) (no date) (unknown) (unknown) Total Bilirubin (units unknown) (unknown) (unknown) (no date) (unknown) (unknown) Total Protein 6.2 L (units unknown) (unknown) (unknown) (no date) (unknown) (unknown) Total Protein (units unknown) (unknown) (unknown) (no date) (unknown) (unknown) UTI/pyelonephritis, with intractable nausea vomiting, acute, present on (units unknown) (unknown) (unknown) (no date) (unknown) (unknown) Vital Signs (units unknown) (unknown) (unknown) (no date) (unknown) (unknown) WBC 7.9 D (units unknown) (unknown) (unknown) (no date) (unknown) (unknown) WBC (units unknown) (unknown) (unknown) (no date) (unknown) (unknown) [Embedded Image Not Available] (units unknown) (unknown) (unknown) (no date) (unknown) (unknown) admission, improving (units unknown) (unknown) (unknown) (no date) (unknown) (unknown) alcohol intake: never (units unknown) (unknown) (unknown) (no date) (unknown) (unknown) as needed (units unknown) (unknown) (unknown) (no date) (unknown) (unknown) attitude thought context and judgment are appropriate for age. (units unknown) (unknown) (unknown) (no date) (unknown) (unknown) complications in relation to acute illness/chronic illness.? This increases the (units unknown) (unknown) (unknown) (no date) (unknown) (unknown) deformity, crepitus, effusions, cyanosis, clubbing or edema present.? Full range (units unknown) (unknown) (unknown) (no date) (unknown) (unknown) difficulty in complexity of medical management and increases the chances poor (units unknown) (unknown) (unknown) (no date) (unknown) (unknown) distress. Somnolent. (units unknown) (unknown) (unknown) (no date) (unknown) (unknown) drip for DKA (units unknown) (unknown) (unknown) (no date) (unknown) (unknown) gastroparesis, chronic, present on admission (units unknown) (unknown) (unknown) (no date) (unknown) (unknown) guarding or rebound, positive CVA tenderness. (units unknown) (unknown) (unknown) (no date) (unknown) (unknown) household members: spouse (units unknown) (unknown) (unknown) (no date) (unknown) (unknown) immune suppression. (units unknown) (unknown) (unknown) (no date) (unknown) (unknown) intake and nutrition. (units unknown) (unknown) (unknown) (no date) (unknown) (unknown) midline. (units unknown) (unknown) (unknown) (no date) (unknown) (unknown) of motion intact radial and pedal pulses are normal. (units unknown) (unknown) (unknown) (no date) (unknown) (unknown) organomegaly, or masses.? Bowel sounds are present in all 4 quadrants without (units unknown) (unknown) (unknown) (no date) (unknown) (unknown) outcomes such as mortality and morbidity as well as impaired wound healing, and (units unknown) (unknown) (unknown) (no date) (unknown) (unknown) to touch intact, no gross deficits noted of cranial nerves. (units unknown) (unknown) (unknown) (no date) (unknown) (unknown) wears an insulin pum p was discontinued per hospital policy. (units unknown) (unknown) (unknown) (no date) (unknown) (unknown) wheezes, rhonchi, or rales. (units unknown) (unknown) Result panel 1664 (unknown) (no date) (unknown) (unknown) (no value) (units unknown) (unknown) (unknown) (no date) (unknown) (unknown) #: [id number] (units unknown) (unknown) (unknown) (no date) (unknown) (unknown) (past 8 hours): (units unknown) (unknown) (unknown) (no date) (unknown) (unknown) ADDENDUM (units unknown) (unknown) (unknown) (no date) (unknown) (unknown) -A1c 7.6% (units unknown) (unknown) (unknown) (no date) (unknown) (unknown) -BMI 22.8 (units unknown) (unknown) (unknown) (no date) (unknown) (unknown) -BMP q.4 hours, glucose checks q.2 hours-until gap closed<12 (units unknown) (unknown) (unknown) (no date) (unknown) (unknown) -BNP q.4 hours (units unknown) (unknown) (unknown) (no date) (unknown) (unknown) -Haldol 0.5 schedule d as a regular dose every 4 hours (this is the most (units unknown) (unknown) (unknown) (no date) (unknown) (unknown) -admitted under diabetic protocols, sliding scale for coverage, patient normally (units unknown) (unknown) (unknown) (no date) (unknown) (unknown) -antiemetics, pain control (units unknown) (unknown) (unknown) (no date) (unknown) (unknown) -cultures growing E. coli so changed to rocephin 1g daily (units unknown) (unknown) (unknown) (no date) (unknown) (unknown) -dietary consult ordered to evaluate and implement steps to improve caloric (units unknown) (unknown) (unknown) (no date) (unknown) (unknown) -initiate insulin drip (units unknown) (unknown) (unknown) (no date) (unknown) (unknown) -initiated for complicated sepsis UTI meropenem and vancomycin (per up-to date) (units unknown) (unknown) (unknown) (no date) (unknown) (unknown) -last A1c 01/31/2022 6.3 -reviewed endocrinology notes (units unknown) (unknown) (unknown) (no date) (unknown) (unknown) -patient's malnutrition places them at high risk for medical and surgical (units unknown) (unknown) (unknown) (no date) (unknown) (unknown) -potassium 3.3 on admission (units unknown) (unknown) (unknown) (no date) (unknown) (unknown) -potassium goal: 4-5 (units unknown) (unknown) (unknown) (no date) (unknown) (unknown) -will dose Humalog per patient's personal dosing schedule. (units unknown) (unknown) (unknown) (no date) (unknown) (unknown) 02:15 05:07 05:07 (units unknown) (unknown) (unknown) (no date) (unknown) (unknown) 08/12/22 08/13/22 08/13/22 (units unknown) (unknown) (unknown) (no date) (unknown) (unknown) 08/13/22 08/13/22 08/13/22 (units unknown) (unknown) (unknown) (no date) (unknown) (unknown) 08/13/22 08/13/22 (units unknown) (unknown) (unknown) (no date) (unknown) (unknown) 08/13/22 05:07 (units unknown) (unknown) (unknown) (no date) (unknown) (unknown) 08/13/22 13:25 (units unknown) (unknown) (unknown) (no date) (unknown) (unknown) 08/13/22 1809 (units unknown) (unknown) (unknown) (no date) (unknown) (unknown) 08/13/22 (units unknown) (unknown) (unknown) (no date) (unknown) (unknown) 08/14/22 1856 (units unknown) (unknown) (unknown) (no date) (unknown) (unknown) 04:21 (units unknown) (unknown) (unknown) (no date) (unknown) (unknown) 05:07 05:07 06:39 (units unknown) (unknown) (unknown) (no date) (unknown) (unknown) 07:14 08:56 (units unknown) (unknown) (unknown) (no date) (unknown) (unknown) 1. Lactic acidosis sepsis (metabolic) without septic shock due to (units unknown) (unknown) (unknown) (no date) (unknown) (unknown) 2. DKA 2/2 insulin-dependent type 1 diabetic with peripheral neuropathy and (units unknown) (unknown) (unknown) (no date) (unknown) (unknown) 3. Hypokalemia, acute, secondary to volume loss N/V, present on admission (units unknown) (unknown) (unknown) (no date) (unknown) (unknown) 4. Malnutrition, mild, acute on chronic, present on admission (units unknown) (unknown) (unknown) (no date) (unknown) (unknown) ABG Base Excess -17. 0 L (units unknown) (unknown) (unknown) (no date) (unknown) (unknown) ABG Base Excess (units unknown) (unknown) (unknown) (no date) (unknown) (unknown) ABG HCO3 11 L (units unknown) (unknown) (unknown) (no date) (unknown) (unknown) ABG HCO3 (units unknown) (unknown) (unknown) (no date) (unknown) (unknown) ABG O2 Saturation 97 (units unknown) (unknown) (unknown) (no date) (unknown) (unknown) ABG O2 Saturation (units unknown) (unknown) (unknown) (no date) (unknown) (unknown) ABG Total CO2 11 L (units unknown) (unknown) (unknown) (no date) (unknown) (unknown) ABG Total CO2 (units unknown) (unknown) (unknown) (no date) (unknown) (unknown) ABG pCO2 27.0 L (units unknown) (unknown) (unknown) (no date) (unknown) (unknown) ABG pCO2 (units unknown) (unknown) (unknown) (no date) (unknown) (unknown) ABG pH 7.20 L* (units unknown) (unknown) (unknown) (no date) (unknown) (unknown) ABG pH (units unknown) (unknown) (unknown) (no date) (unknown) (unknown) ABG pO2 110 H (units unknown) (unknown) (unknown) (no date) (unknown) (unknown) ABG pO2 (units unknown) (unknown) (unknown) (no date) (unknown) (unknown) ALT 20 (units unknown) (unknown) (unknown) (no date) (unknown) (unknown) ALT (units unknown) (unknown) (unknown) (no date) (unknown) (unknown) AST 25 (units unknown) (unknown) (unknown) (no date) (unknown) (unknown) AST (units unknown) (unknown) (unknown) (no date) (unknown) (unknown) Abdomen:? Soft diffuse generalized minimal tenderness, negative for (units unknown) (unknown) (unknown) (no date) (unknown) (unknown) Addendum Documented By: Alonzo Dueñas, D.O. (units unknown) (unknown) (unknown) (no date) (unknown) (unknown) Addendum Signed By: <Electronically signed by Alonzo Dueñas, (units unknown) (unknown) (unknown) (no date) (unknown) (unknown) Age/Sex: 27 / F (units unknown) (unknown) (unknown) (no date) (unknown) (unknown) Albumin 3.6 (units unknown) (unknown) (unknown) (no date) (unknown) (unknown) Albumin (units unknown) (unknown) (unknown) (no date) (unknown) (unknown) Albumin/Globulin Ratio 1.5 (units unknown) (unknown) (unknown) (no date) (unknown) (unknown) Albumin/Globulin Ratio (units unknown) (unknown) (unknown) (no date) (unknown) (unknown) Alkaline Phosphatase 84 (units unknown) (unknown) (unknown) (no date) (unknown) (unknown) Alkaline Phosphatase (units unknown) (unknown) (unknown) (no date) (unknown) (unknown) Anemia (units unknown) (unknown) (unknown) (no date) (unknown) (unknown) Assessment + Plan narrative: (units unknown) (unknown) (unknown) (no date) (unknown) (unknown) Assessment + Plan (units unknown) (unknown) (unknown) (no date) (unknown) (unknown) BMP with bicarb of 9 and gap of 18 this AM. ABG with pH 7.2. Moved to ICU and (units unknown) (unknown) (unknown) (no date) (unknown) (unknown) BUN 10 (units unknown) (unknown) (unknown) (no date) (unknown) (unknown) BUN 8 (units unknown) (unknown) (unknown) (no date) (unknown) (unknown) BUN (units unknown) (unknown) (unknown) (no date) (unknown) (unknown) BUN/Creatinine Ratio 12.3 (units unknown) (unknown) (unknown) (no date) (unknown) (unknown) BUN/Creatinine Ratio 13.9 (units unknown) (unknown) (unknown) (no date) (unknown) (unknown) BUN/Creatinine Ratio (units unknown) (unknown) (unknown) (no date) (unknown) (unknown) Baso # (Auto) 0 (units unknown) (unknown) (unknown) (no date) (unknown) (unknown) Baso # (Auto) (units unknown) (unknown) (unknown) (no date) (unknown) (unknown) Baso % (Auto) 0.1 (units unknown) (unknown) (unknown) (no date) (unknown) (unknown) Baso % (Auto) (units unknown) (unknown) (unknown) (no date) (unknown) (unknown) Blood Pressure 131/73 (units unknown) (unknown) (unknown) (no date) (unknown) (unknown) COVID PCR:Ordered (units unknown) (unknown) (unknown) (no date) (unknown) (unknown) Calcium 7.4 L (units unknown) (unknown) (unknown) (no date) (unknown) (unknown) Calcium 7.7 L (units unknown) (unknown) (unknown) (no date) (unknown) (unknown) Calcium (units unknown) (unknown) (unknown) (no date) (unknown) (unknown) Cannabis hyperemesis syndrome concurrent with and due to cannabis dependence (units unknown) (unknown) (unknown) (no date) (unknown) (unknown) Carbon Dioxide 9 L* (units unknown) (unknown) (unknown) (no date) (unknown) (unknown) Carbon Dioxide (units unknown) (unknown) (unknown) (no date) (unknown) (unknown) Cardio:? regular rat e and rhythm with no extra sounds or murmurs. (units unknown) (unknown) (unknown) (no date) (unknown) (unknown) Chest:? Breathing without nasal flaring, retractions, or labored, no tachypneic (units unknown) (unknown) (unknown) (no date) (unknown) (unknown) Chloride 104 (units unknown) (unknown) (unknown) (no date) (unknown) (unknown) Chloride 106 (units unknown) (unknown) (unknown) (no date) (unknown) (unknown) Chloride (units unknown) (unknown) (unknown) (no date) (unknown) (unknown) Code status:? Full code (units unknown) (unknown) (unknown) (no date) (unknown) (unknown) Creatinine 0.65 (units unknown) (unknown) (unknown) (no date) (unknown) (unknown) Creatinine 0.72 (units unknown) (unknown) (unknown) (no date) (unknown) (unknown) Creatinine (units unknown) (unknown) (unknown) (no date) (unknown) (unknown) Cyclic vomiting syndrome (units unknown) (unknown) (unknown) (no date) (unknown) (unknown) D.O.> 08/14/22 1856 (units unknown) (unknown) (unknown) (no date) (unknown) (unknown) DKA (diabetic ketoacidoses) (units unknown) (unknown) (unknown) (no date) (unknown) (unknown) : 1995 Acct:[id number] (units unknown) (unknown) (unknown) (no date) (unknown) (unknown) DVT/VTE prophylaxis: ? SCDs, refusing lovenox (units unknown) (unknown) (unknown) (no date) (unknown) (unknown) Date of Service: 08/13/22 (units unknown) (unknown) (unknown) (no date) (unknown) (unknown) Diabetes mellitus, type I (units unknown) (unknown) (unknown) (no date) (unknown) (unknown) Dispo: Home pending improvement in DKA and NV. 1-2 days. (units unknown) (unknown) (unknown) (no date) (unknown) (unknown) Eos # (Auto) 0 (units unknown) (unknown) (unknown) (no date) (unknown) (unknown) Eos # (Auto) (units unknown) (unknown) (unknown) (no date) (unknown) (unknown) Eos % (Auto) 0.0 L (units unknown) (unknown) (unknown) (no date) (unknown) (unknown) Eos % (Auto) (units unknown) (unknown) (unknown) (no date) (unknown) (unknown) Estim Average Glucos e 171 (units unknown) (unknown) (unknown) (no date) (unknown) (unknown) Estim Average Glucose (units unknown) (unknown) (unknown) (no date) (unknown) (unknown) Estimated GFR > 60 (units unknown) (unknown) (unknown) (no date) (unknown) (unknown) Estimated GFR (units unknown) (unknown) (unknown) (no date) (unknown) (unknown) Exam Narrative: (units unknown) (unknown) (unknown) (no date) (unknown) (unknown) Exam (units unknown) (unknown) (unknown) (no date) (unknown) (unknown) Family History (units unknown) (unknown) (unknown) (no date) (unknown) (unknown) Father Healthy adult (units unknown) (unknown) (unknown) (no date) (unknown) (unknown) FiO2 21 (units unknown) (unknown) (unknown) (no date) (unknown) (unknown) FiO2 (units unknown) (unknown) (unknown) (no date) (unknown) (unknown) Gastroparesis (units unknown) (unknown) (unknown) (no date) (unknown) (unknown) General:? Patient is a well-developed, well-nourished in no acute medical (units unknown) (unknown) (unknown) (no date) (unknown) (unknown) Globulin 2.4 (units unknown) (unknown) (unknown) (no date) (unknown) (unknown) Globulin (units unknown) (unknown) (unknown) (no date) (unknown) (unknown) Glucose 167 H (units unknown) (unknown) (unknown) (no date) (unknown) (unknown) Glucose 95 (units unknown) (unknown) (unknown) (no date) (unknown) (unknown) Glucose (units unknown) (unknown) (unknown) (no date) (unknown) (unknown) HEENT:? Normocephalic, atraumatic, extraocular muscles intact. Trachea is (units unknown) (unknown) (unknown) (no date) (unknown) (unknown) Hct 29.6 L (units unknown) (unknown) (unknown) (no date) (unknown) (unknown) Hct (units unknown) (unknown) (unknown) (no date) (unknown) (unknown) Hgb 9.6 L (units unknown) (unknown) (unknown) (no date) (unknown) (unknown) Hgb A1c (Ref Lab) 7. 6 H (units unknown) (unknown) (unknown) (no date) (unknown) (unknown) Hgb A1c (Ref Lab) (units unknown) (unknown) (unknown) (no date) (unknown) (unknown) Hgb (units unknown) (unknown) (unknown) (no date) (unknown) (unknown) I spent a total of 3 5 minutes of critical care time on this patient's care (units unknown) (unknown) (unknown) (no date) (unknown) (unknown) Insulin dependent diabetes mellitus (units unknown) (unknown) (unknown) (no date) (unknown) (unknown) Interval history: (units unknown) (unknown) (unknown) (no date) (unknown) (unknown) [address] [address] (units unknown) (unknown) (unknown) (no date) (unknown) (unknown) Ketones 5.97 H (units unknown) (unknown) (unknown) (no date) (unknown) (unknown) Ketones (units unknown) (unknown) (unknown) (no date) (unknown) (unknown) Laboratory Results - last 24 hr (units unknown) (unknown) (unknown) (no date) (unknown) (unknown) Labs (units unknown) (unknown) (unknown) (no date) (unknown) (unknown) Labs: (units unknown) (unknown) (unknown) (no date) (unknown) (unknown) Lactate 1.0 (units unknown) (unknown) (unknown) (no date) (unknown) (unknown) Lactate (units unknown) (unknown) (unknown) (no date) (unknown) (unknown) Lungs:? Auscultation of all lung hendricks are clear without adventitious sounds, (units unknown) (unknown) (unknown) (no date) (unknown) (unknown) Lymph # (Auto) 2200 (units unknown) (unknown) (unknown) (no date) (unknown) (unknown) Lymph # (Auto) (units unknown) (unknown) (unknown) (no date) (unknown) (unknown) Lymph % (Auto) 12.9 L (units unknown) (unknown) (unknown) (no date) (unknown) (unknown) Lymph % (Auto) (units unknown) (unknown) (unknown) (no date) (unknown) (unknown) MCH 25.8 L (units unknown) (unknown) (unknown) (no date) (unknown) (unknown) MCH (units unknown) (unknown) (unknown) (no date) (unknown) (unknown) MCHC 32.4 (units unknown) (unknown) (unknown) (no date) (unknown) (unknown) MCHC (units unknown) (unknown) (unknown) (no date) (unknown) (unknown) MCV 79.8 L (units unknown) (unknown) (unknown) (no date) (unknown) (unknown) MCV (units unknown) (unknown) (unknown) (no date) (unknown) (unknown) Magnesium 1.9 (units unknown) (unknown) (unknown) (no date) (unknown) (unknown) Magnesium (units unknown) (unknown) (unknown) (no date) (unknown) (unknown) Medical History (Updated 08/12/22 @ 02:17 by Gracia Smith [facility]) (units unknown) (unknown) (unknown) (no date) (unknown) (unknown) Migraine headache with aura (units unknown) (unknown) (unknown) (no date) (unknown) (unknown) O'Brien # (Auto) 1300 H (units unknown) (unknown) (unknown) (no date) (unknown) (unknown) O'Brien # (Auto) (units unknown) (unknown) (unknown) (no date) (unknown) (unknown) O'Brien % (Auto) 7.9 (units unknown) (unknown) (unknown) (no date) (unknown) (unknown) O'Brien % (Auto) (units unknown) (unknown) (unknown) (no date) (unknown) (unknown) Mother Hypertension (units unknown) (unknown) (unknown) (no date) (unknown) (unknown) Musculoskeletal:? Muscle strength and tone are equal within normal limits, no (units unknown) (unknown) (unknown) (no date) (unknown) (unknown) Myopia (units unknown) (unknown) (unknown) (no date) (unknown) (unknown) Narrative (units unknown) (unknown) (unknown) (no date) (unknown) (unknown) Neuro:? Alert and orientated x3, strength is +5/5 in all extremities, sensation (units unknown) (unknown) (unknown) (no date) (unknown) (unknown) Neut # (Auto) 08871 H (units unknown) (unknown) (unknown) (no date) (unknown) (unknown) Neut # (Auto) (units unknown) (unknown) (unknown) (no date) (unknown) (unknown) Neut % (Auto) 79.1 H (units unknown) (unknown) (unknown) (no date) (unknown) (unknown) Neut % (Auto) (units unknown) (unknown) (unknown) (no date) (unknown) (unknown) Objective (units unknown) (unknown) (unknown) (no date) (unknown) (unknown) Oxygen Delivery Method Room Air (units unknown) (unknown) (unknown) (no date) (unknown) (unknown) Oxygen Flow Rate 0 (units unknown) (unknown) (unknown) (no date) (unknown) (unknown) PFSH (units unknown) (unknown) (unknown) (no date) (unknown) (unknown) Pancreatitis (units unknown) (unknown) (unknown) (no date) (unknown) (unknown) Patient: Kaur Horton MR (units unknown) (unknown) (unknown) (no date) (unknown) (unknown) Plt Count 261 (units unknown) (unknown) (unknown) (no date) (unknown) (unknown) Plt Count (units unknown) (unknown) (unknown) (no date) (unknown) (unknown) Potassium 3.5 (units unknown) (unknown) (unknown) (no date) (unknown) (unknown) Potassium 3.6 (units unknown) (unknown) (unknown) (no date) (unknown) (unknown) Potassium (units unknown) (unknown) (unknown) (no date) (unknown) (unknown) Progress Note (units unknown) (unknown) (unknown) (no date) (unknown) (unknown) Provider: Dueñas,Alonzo A D.O. (units unknown) (unknown) (unknown) (no date) (unknown) (unknown) Psych:? Patient has a well-kept appearance, appropriate affect, mental status (units unknown) (unknown) (unknown) (no date) (unknown) (unknown) Pulse Oximetry 99 (units unknown) (unknown) (unknown) (no date) (unknown) (unknown) Pulse Rate 107 H (units unknown) (unknown) (unknown) (no date) (unknown) (unknown) RBC 3.71 L (units unknown) (unknown) (unknown) (no date) (unknown) (unknown) RBC (units unknown) (unknown) (unknown) (no date) (unknown) (unknown) RDW 16.5 H (units unknown) (unknown) (unknown) (no date) (unknown) (unknown) RDW (units unknown) (unknown) (unknown) (no date) (unknown) (unknown) Respiratory Rate 16 (units unknown) (unknown) (unknown) (no date) (unknown) (unknown) Signed By:<Electronically signed by Alonzo Dueñas D.O.> (units unknown) (unknown) (unknown) (no date) (unknown) (unknown) Skin:? Warm dry and intact without rashes, ulcerations or petechiae.? (units unknown) (unknown) (unknown) (no date) (unknown) (unknown) Smoking Status: Current every day smoker (units unknown) (unknown) (unknown) (no date) (unknown) (unknown) Social History (units unknown) (unknown) (unknown) (no date) (unknown) (unknown) Sodium 131 L (units unknown) (unknown) (unknown) (no date) (unknown) (unknown) Sodium 132 L (units unknown) (unknown) (unknown) (no date) (unknown) (unknown) Sodium (units unknown) (unknown) (unknown) (no date) (unknown) (unknown) Status post appendectomy (units unknown) (unknown) (unknown) (no date) (unknown) (unknown) Subjective (units unknown) (unknown) (unknown) (no date) (unknown) (unknown) Surgical History (units unknown) (unknown) (unknown) (no date) (unknown) (unknown) Surrogate decision maker:? Spouse Khoa (units unknown) (unknown) (unknown) (no date) (unknown) (unknown) Temperature 97.7 F (units unknown) (unknown) (unknown) (no date) (unknown) (unknown) Total Bilirubin 0.4 (units unknown) (unknown) (unknown) (no date) (unknown) (unknown) Total Bilirubin (units unknown) (unknown) (unknown) (no date) (unknown) (unknown) Total Protein 6.0 L (units unknown) (unknown) (unknown) (no date) (unknown) (unknown) Total Protein (units unknown) (unknown) (unknown) (no date) (unknown) (unknown) UTI/pyelonephritis, with intractable nausea vomiting, acute, present on (units unknown) (unknown) (unknown) (no date) (unknown) (unknown) Vital Signs (units unknown) (unknown) (unknown) (no date) (unknown) (unknown) WBC 16.7 H (units unknown) (unknown) (unknown) (no date) (unknown) (unknown) WBC (units unknown) (unknown) (unknown) (no date) (unknown) (unknown) [Embedded Image Not Available] (units unknown) (unknown) (unknown) (no date) (unknown) (unknown) admission (units unknown) (unknown) (unknown) (no date) (unknown) (unknown) alcohol intake: never (units unknown) (unknown) (unknown) (no date) (unknown) (unknown) attitude thought context and judgment are appropriate for age. (units unknown) (unknown) (unknown) (no date) (unknown) (unknown) complications in relation to acute illness/chronic illness.? This increases the (units unknown) (unknown) (unknown) (no date) (unknown) (unknown) deformity, crepitus, effusions, cyanosis, clubbing or edema present.? Full range (units unknown) (unknown) (unknown) (no date) (unknown) (unknown) difficulty in complexity of medical management and increases the chances poor (units unknown) (unknown) (unknown) (no date) (unknown) (unknown) distress. (units unknown) (unknown) (unknown) (no date) (unknown) (unknown) effective antiemetic for cyclic vomiting), in addition to Phenergan (units unknown) (unknown) (unknown) (no date) (unknown) (unknown) gastroparesis, chronic, present on admission (units unknown) (unknown) (unknown) (no date) (unknown) (unknown) guarding or rebound, positive CVA tenderness. (units unknown) (unknown) (unknown) (no date) (unknown) (unknown) household members: spouse (units unknown) (unknown) (unknown) (no date) (unknown) (unknown) immune suppression. (units unknown) (unknown) (unknown) (no date) (unknown) (unknown) intake and nutrition. (units unknown) (unknown) (unknown) (no date) (unknown) (unknown) midline. (units unknown) (unknown) (unknown) (no date) (unknown) (unknown) of motion intact radial and pedal pulses are normal. (units unknown) (unknown) (unknown) (no date) (unknown) (unknown) organomegaly, or masses.? Bowel sounds are present in all 4 quadrants without (units unknown) (unknown) (unknown) (no date) (unknown) (unknown) outcomes such as mortality and morbidity as well as impaired wound healing, and (units unknown) (unknown) (unknown) (no date) (unknown) (unknown) put on insulin drip for DKA. Patient says her NV slowly improved and able to (units unknown) (unknown) (unknown) (no date) (unknown) (unknown) suppositories, IV Zofran and reglan as needed (units unknown) (unknown) (unknown) (no date) (unknown) (unknown) to touch intact, no gross deficits noted of cranial nerves. (units unknown) (unknown) (unknown) (no date) (unknown) (unknown) today; this time is exclusive of procedural time. (units unknown) (unknown) (unknown) (no date) (unknown) (unknown) tolerate some jello today. She has no other complaints. (units unknown) (unknown) (unknown) (no date) (unknown) (unknown) wears an insulin pum p was discontinued per hospital policy. (units unknown) (unknown) (unknown) (no date) (unknown) (unknown) wheezes, rhonchi, or rales. (units unknown) (unknown) Result panel 1665 (unknown) (no date) (unknown) (unknown) 440 mosmol/kg (unknown) (unknown) (no date) (unknown) (unknown) 440 mosmol/kg (unknown) Result panel 1666 (unknown) (no date) (unknown) (unknown) (no value) (units unknown) (unknown) (unknown) (no date) (unknown) (unknown) NO GROWTH AFTER 72 HOURS (units unknown) (unknown) Result panel 1667 (unknown) (no date) (unknown) (unknown) (no value) (units unknown) (unknown) (unknown) (no date) (unknown) (unknown) NO GROWTH AFTER 72 HOURS (units unknown) (unknown) Result panel 1668 (unknown) (no date) (unknown) (unknown) 0 /ul (unknown) (unknown) (no date) (unknown) (unknown) 0 /ul (unknown) (unknown) (no date) (unknown) (unknown) 0.0 % (unknown) (unknown) (no date) (unknown) (unknown) 0.4 % (unknown) (unknown) (no date) (unknown) (unknown) 13.4 % (unknown) (unknown) (no date) (unknown) (unknown) 16.3 % (unknown) (unknown) (no date) (unknown) (unknown) 26.1 pg (unknown) (unknown) (no date) (unknown) (unknown) 285 x10 3/ul (unknown) (unknown) (no date) (unknown) (unknown) 29.3 % (unknown) (unknown) (no date) (unknown) (unknown) 3.74 x10 6/ul (unknown) (unknown) (no date) (unknown) (unknown) 33.4 % (unknown) (unknown) (no date) (unknown) (unknown) 4100 /ul (unknown) (unknown) (no date) (unknown) (unknown) 5.3 x10 3/ul (unknown) (unknown) (no date) (unknown) (unknown) 500 /ul (unknown) (unknown) (no date) (unknown) (unknown) 700 /ul (unknown) (unknown) (no date) (unknown) (unknown) 76.7 % (unknown) (unknown) (no date) (unknown) (unknown) 78.3 fl (unknown) (unknown) (no date) (unknown) (unknown) 9.5 % (unknown) (unknown) (no date) (unknown) (unknown) 9.8 g/dl (unknown) Result panel 1669 (unknown) (no date) (unknown) (unknown) > 60 ml/min (unknown) (unknown) (no date) (unknown) (unknown) > 60 ml/min (unknown) (unknown) (no date) (unknown) (unknown) 0.67 mg/dl (unknown) (unknown) (no date) (unknown) (unknown) 12 mmol/l (unknown) (unknown) (no date) (unknown) (unknown) 130 mmol/l (unknown) (unknown) (no date) (unknown) (unknown) 3.2 mmol/l (unknown) (unknown) (no date) (unknown) (unknown) 339 mg/dl (unknown) (unknown) (no date) (unknown) (unknown) 339 mg/dl (unknown) (unknown) (no date) (unknown) (unknown) 4 mg/dl (unknown) (unknown) (no date) (unknown) (unknown) 6.0 (units unknown) (unknown) (unknown) (no date) (unknown) (unknown) 7.7 mg/dl (unknown) (unknown) (no date) (unknown) (unknown) 97 mmol/l (unknown) Result panel 1670 (unknown) (no date) (unknown) (unknown) 1.2 mmol/l (unknown) Result panel 1671 (unknown) (no date) (unknown) (unknown) (no value) (units unknown) (unknown) (unknown) (no date) (unknown) (unknown) # Chronic vomiting (units unknown) (unknown) (unknown) (no date) (unknown) (unknown) # DKA (units unknown) (unknown) (unknown) (no date) (unknown) (unknown) #: [id number] (units unknown) (unknown) (unknown) (no date) (unknown) (unknown) (past 8 hours): (units unknown) (unknown) (unknown) (no date) (unknown) (unknown) 08/12/22 08/14/22 08/14/22 (units unknown) (unknown) (unknown) (no date) (unknown) (unknown) 08/15/22 08/15/22 08/15/22 (units unknown) (unknown) (unknown) (no date) (unknown) (unknown) 08/15/22 04:24 (units unknown) (unknown) (unknown) (no date) (unknown) (unknown) 08/15/22 10:19 (units unknown) (unknown) (unknown) (no date) (unknown) (unknown) 08/15/22 (units unknown) (unknown) (unknown) (no date) (unknown) (unknown) 04: 04:24 10:00 (units unknown) (unknown) (unknown) (no date) (unknown) (unknown) 06:10 04:11 11:55 (units unknown) (unknown) (unknown) (no date) (unknown) (unknown) 07:00 (units unknown) (unknown) (unknown) (no date) (unknown) (unknown) 07:40 (units unknown) (unknown) (unknown) (no date) (unknown) (unknown) 08:00 08/15/22 (units unknown) (unknown) (unknown) (no date) (unknown) (unknown) 10:12 (units unknown) (unknown) (unknown) (no date) (unknown) (unknown) A[facility] Administration (units unknown) (unknown) (unknown) (no date) (unknown) (unknown) Acetaminophen 325 Mg Tablet PO 650 mg (units unknown) (unknown) (unknown) (no date) (unknown) (unknown) Acetaminophen 650 mg 08/12/22 01:00 08/14/22 15:44 (units unknown) (unknown) (unknown) (no date) (unknown) (unknown) Administration (units unknown) (unknown) (unknown) (no date) (unknown) (unknown) Age/Sex: 27 / F (units unknown) (unknown) (unknown) (no date) (unknown) (unknown) And Vomiting 2 [History Confirmed 08/12/22] (units unknown) (unknown) (unknown) (no date) (unknown) (unknown) Anemia (units unknown) (unknown) (unknown) (no date) (unknown) (unknown) Anxiety (units unknown) (unknown) (unknown) (no date) (unknown) (unknown) Assessment + Plan narrative: (units unknown) (unknown) (unknown) (no date) (unknown) (unknown) Assessment + Plan (units unknown) (unknown) (unknown) (no date) (unknown) (unknown) BID [facility] Administration (units unknown) (unknown) (unknown) (no date) (unknown) (unknown) BUN 2 L < 2 L (units unknown) (unknown) (unknown) (no date) (unknown) (unknown) BUN 4 L (units unknown) (unknown) (unknown) (no date) (unknown) (unknown) BUN/Creatinine Ratio 3.6 L 3.8 L (units unknown) (unknown) (unknown) (no date) (unknown) (unknown) BUN/Creatinine Ratio 6.0 (units unknown) (unknown) (unknown) (no date) (unknown) (unknown) Baso # (Auto) 0 (units unknown) (unknown) (unknown) (no date) (unknown) (unknown) Baso # (Auto) (units unknown) (unknown) (unknown) (no date) (unknown) (unknown) Baso % (Auto) 0.4 (units unknown) (unknown) (unknown) (no date) (unknown) (unknown) Baso % (Auto) (units unknown) (unknown) (unknown) (no date) (unknown) (unknown) Blood Pressure 140/88 (units unknown) (unknown) (unknown) (no date) (unknown) (unknown) CONT [facility] Administration (units unknown) (unknown) (unknown) (no date) (unknown) (unknown) Calcium 7.7 L (units unknown) (unknown) (unknown) (no date) (unknown) (unknown) Calcium 7.8 L 7.3 L (units unknown) (unknown) (unknown) (no date) (unknown) (unknown) Cannabis hyperemesis syndrome concurrent with and due to cannabis dependence (units unknown) (unknown) (unknown) (no date) (unknown) (unknown) Carbon Dioxide 12 L (units unknown) (unknown) (unknown) (no date) (unknown) (unknown) Carbon Dioxide 17 L 22 (units unknown) (unknown) (unknown) (no date) (unknown) (unknown) Ceftriaxone Sodium 1,000 mg/ 100 mls @ 200 mls/hr 08/13/22 07:00 08/15/22 (units unknown) (unknown) (unknown) (no date) (unknown) (unknown) Chief complaint: vomiting, back pain was seen earlier today (units unknown) (unknown) (unknown) (no date) (unknown) (unknown) Chloride 102 101 (units unknown) (unknown) (unknown) (no date) (unknown) (unknown) Chloride 97 L (units unknown) (unknown) (unknown) (no date) (unknown) (unknown) 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: Yes (units unknown) (unknown) (unknown) (no date) (unknown) (unknown) Consult details (units unknown) (unknown) (unknown) (no date) (unknown) (unknown) Creatinine 0.56 0.52 (units unknown) (unknown) (unknown) (no date) (unknown) (unknown) Creatinine 0.67 (units unknown) (unknown) (unknown) (no date) (unknown) (unknown) Current Medications (units unknown) (unknown) (unknown) (no date) (unknown) (unknown) Cyclic vomiting syndrome (units unknown) (unknown) (unknown) (no date) (unknown) (unknown) DAILY [facility] Administration (units unknown) (unknown) (unknown) (no date) (unknown) (unknown) DKA (diabetic ketoacidoses) (units unknown) (unknown) (unknown) (no date) (unknown) (unknown) : 1995 Acct:[id number] (units unknown) (unknown) (unknown) (no date) (unknown) (unknown) Date of Service: 08/13/22 (units unknown) (unknown) (unknown) (no date) (unknown) (unknown) Dextrose 5%-0.9% Ns IV 125 mls/hr (units unknown) (unknown) (unknown) (no date) (unknown) (unknown) Dextrose/Sodium Chloride 1,000 mls @ 125 mls/hr 08/15/22 09:45 08/15/22 10:04 (units unknown) (unknown) (unknown) (no date) (unknown) (unknown) Diabetes mellitus, type I (units unknown) (unknown) (unknown) (no date) (unknown) (unknown) Eos # (Auto) 0 (units unknown) (unknown) (unknown) (no date) (unknown) (unknown) Eos # (Auto) (units unknown) (unknown) (unknown) (no date) (unknown) (unknown) Eos % (Auto) 0.0 L (units unknown) (unknown) (unknown) (no date) (unknown) (unknown) Eos % (Auto) (units unknown) (unknown) (unknown) (no date) (unknown) (unknown) Estimated GFR > 60 > 60 (units unknown) (unknown) (unknown) (no date) (unknown) (unknown) Estimated GFR > 60 (units unknown) (unknown) (unknown) (no date) (unknown) (unknown) Exam (units unknown) (unknown) (unknown) (no date) (unknown) (unknown) Family History (units unknown) (unknown) (unknown) (no date) (unknown) (unknown) Father Healthy adult (units unknown) (unknown) (unknown) (no date) (unknown) (unknown) Fever/Mild Pain (1-3) (units unknown) (unknown) (unknown) (no date) (unknown) (unknown) Gastroparesis (units unknown) (unknown) (unknown) (no date) (unknown) (unknown) Generic Name Dose Route Start Last Admin (units unknown) (unknown) (unknown) (no date) (unknown) (unknown) Glucose 159 H 138 H (units unknown) (unknown) (unknown) (no date) (unknown) (unknown) Glucose 339 H D (units unknown) (unknown) (unknown) (no date) (unknown) (unknown) Haloperidol 0.5 mg 08/14/22 14:57 08/14/22 23:27 (units unknown) (unknown) (unknown) (no date) (unknown) (unknown) Haloperidol 5 Mg/Ml Vial IV 0.5 mg (units unknown) (unknown) (unknown) (no date) (unknown) (unknown) Hct 29.3 L (units unknown) (unknown) (unknown) (no date) (unknown) (unknown) Hct (units unknown) (unknown) (unknown) (no date) (unknown) (unknown) Hgb 9.8 L (units unknown) (unknown) (unknown) (no date) (unknown) (unknown) Hgb (units unknown) (unknown) (unknown) (no date) (unknown) (unknown) History of Present Illness (units unknown) (unknown) (unknown) (no date) (unknown) (unknown) Home Medications (units unknown) (unknown) (unknown) (no date) (unknown) (unknown) Hydroxyzine Pamoate 25 Mg Capsule PO 25 mg (units unknown) (unknown) (unknown) (no date) (unknown) (unknown) Hydroxyzine Pamoate 25 mg 08/14/22 12:26 08/15/22 09:48 (units unknown) (unknown) (unknown) (no date) (unknown) (unknown) INSULIN DRIP PREMIX 100 unit in 100 mls @ 6 mls/hr 08/15/22 09:45 08/15/22 (units unknown) (unknown) (unknown) (no date) (unknown) (unknown) Insulin Glargine 100 Unit/Ml 3ml Pen SUBCUT 20 unit (units unknown) (unknown) (unknown) (no date) (unknown) (unknown) Insulin Glargine 20 unit 08/14/22 21:00 08/15/22 08:05 (units unknown) (unknown) (unknown) (no date) (unknown) (unknown) Insulin Human Regula r 0 unit 08/15/22 08:00 08/15/22 08:07 (units unknown) (unknown) (unknown) (no date) (unknown) (unknown) Insulin Regular 100 Unit/Ml 3 Ml Vial SUBCUT 2 unit (units unknown) (unknown) (unknown) (no date) (unknown) (unknown) Insulin dependent diabetes mellitus (units unknown) (unknown) (unknown) (no date) (unknown) (unknown) [address] [id number] (units unknown) (unknown) (unknown) (no date) (unknown) (unknown) Itching (units unknown) (unknown) (unknown) (no date) (unknown) (unknown) Laboratory Results - last 24 hr (units unknown) (unknown) (unknown) (no date) (unknown) (unknown) Labs (units unknown) (unknown) (unknown) (no date) (unknown) (unknown) Labs: (units unknown) (unknown) (unknown) (no date) (unknown) (unknown) Lactate 1.2 (units unknown) (unknown) (unknown) (no date) (unknown) (unknown) Lactate (units unknown) (unknown) (unknown) (no date) (unknown) (unknown) Lorazepam 0.5 mg 08/14/22 14:57 08/14/22 23:27 (units unknown) (unknown) (unknown) (no date) (unknown) (unknown) Lorazepam 1 Mg Table t PO 0.5 mg (units unknown) (unknown) (unknown) (no date) (unknown) (unknown) Lymph # (Auto) 700 L (units unknown) (unknown) (unknown) (no date) (unknown) (unknown) Lymph # (Auto) (units unknown) (unknown) (unknown) (no date) (unknown) (unknown) Lymph % (Auto) 13.4 L (units unknown) (unknown) (unknown) (no date) (unknown) (unknown) Lymph % (Auto) (units unknown) (unknown) (unknown) (no date) (unknown) (unknown) MCH 26.1 (units unknown) (unknown) (unknown) (no date) (unknown) (unknown) MCH (units unknown) (unknown) (unknown) (no date) (unknown) (unknown) MCHC 33.4 (units unknown) (unknown) (unknown) (no date) (unknown) (unknown) MCHC (units unknown) (unknown) (unknown) (no date) (unknown) (unknown) MCV 78.3 L (units unknown) (unknown) (unknown) (no date) (unknown) (unknown) MCV (units unknown) (unknown) (unknown) (no date) (unknown) (unknown) Medical History (Updated 08/12/22 @ 02:17 by COLTON Leggett) (units unknown) (unknown) (unknown) (no date) (unknown) (unknown) Medications: (units unknown) (unknown) (unknown) (no date) (unknown) (unknown) Metoclopramide 10 Mg/2 Ml Inj IV 10 mg (units unknown) (unknown) (unknown) (no date) (unknown) (unknown) Metoclopramide HCl 1 0 mg 08/13/22 09:29 08/14/22 22:22 (units unknown) (unknown) (unknown) (no date) (unknown) (unknown) Migraine headache with aura (units unknown) (unknown) (unknown) (no date) (unknown) (unknown) O'Brien # (Auto) 500 (units unknown) (unknown) (unknown) (no date) (unknown) (unknown) O'Brien # (Auto) (units unknown) (unknown) (unknown) (no date) (unknown) (unknown) O'Brien % (Auto) 9.5 (units unknown) (unknown) (unknown) (no date) (unknown) (unknown) O'Brien % (Auto) (units unknown) (unknown) (unknown) (no date) (unknown) (unknown) Mother Hypertension (units unknown) (unknown) (unknown) (no date) (unknown) (unknown) Myopia (units unknown) (unknown) (unknown) (no date) (unknown) (unknown) Myxredlin Drip Premi x IV 6 units/hr (units unknown) (unknown) (unknown) (no date) (unknown) (unknown) Nausea And Vomiting (units unknown) (unknown) (unknown) (no date) (unknown) (unknown) Nausea (units unknown) (unknown) (unknown) (no date) (unknown) (unknown) Neut # (Auto) 4100 (units unknown) (unknown) (unknown) (no date) (unknown) (unknown) Neut # (Auto) (units unknown) (unknown) (unknown) (no date) (unknown) (unknown) Neut % (Auto) 76.7 H (units unknown) (unknown) (unknown) (no date) (unknown) (unknown) Neut % (Auto) (units unknown) (unknown) (unknown) (no date) (unknown) (unknown) Normal Saline 0.9% I V 100 mls/hr (units unknown) (unknown) (unknown) (no date) (unknown) (unknown) Objective (units unknown) (unknown) (unknown) (no date) (unknown) (unknown) Ondansetron 4 Mg/2 M l Inj IV 4 mg (units unknown) (unknown) (unknown) (no date) (unknown) (unknown) Ondansetron HCl 4 mg 08/12/22 07:47 08/15/22 03:05 (units unknown) (unknown) (unknown) (no date) (unknown) (unknown) Oxycodone HCl 5 mg 08/14/22 12:49 08/15/22 10:25 (units unknown) (unknown) (unknown) (no date) (unknown) (unknown) Oxycodone Ir 5 Mg Tablet PO 5 mg (units unknown) (unknown) (unknown) (no date) (unknown) (unknown) Oxygen Delivery Method Room Air (units unknown) (unknown) (unknown) (no date) (unknown) (unknown) Oxygen Flow Rate 0 (units unknown) (unknown) (unknown) (no date) (unknown) (unknown) PFSH (units unknown) (unknown) (unknown) (no date) (unknown) (unknown) POTASSIUM CHLORIDE I N WATER 10 meq in 100 mls @ 100 mls/hr 08/15/22 09:45 (units unknown) (unknown) (unknown) (no date) (unknown) (unknown) Pain, Moderate (4-6) (units unknown) (unknown) (unknown) (no date) (unknown) (unknown) Pancreatitis (units unknown) (unknown) (unknown) (no date) (unknown) (unknown) Pantoprazole 40 Mg Vial IV 20 mg (units unknown) (unknown) (unknown) (no date) (unknown) (unknown) Pantoprazole Sodium 20 mg 08/12/22 09:00 08/15/22 09:42 (units unknown) (unknown) (unknown) (no date) (unknown) (unknown) Patient Location: ICU (units unknown) (unknown) (unknown) (no date) (unknown) (unknown) Patient: Kaur Horton MR (units unknown) (unknown) (unknown) (no date) (unknown) (unknown) Plt Count 285 (units unknown) (unknown) (unknown) (no date) (unknown) (unknown) Plt Count (units unknown) (unknown) (unknown) (no date) (unknown) (unknown) Potassium 3.2 L (units unknown) (unknown) (unknown) (no date) (unknown) (unknown) Potassium 3.7 3.4 (units unknown) (unknown) (unknown) (no date) (unknown) (unknown) Potassium Cl 10 Meq/100 Ml Yana IV 08/15/22 13:44 100 mls/hr (units unknown) (unknown) (unknown) (no date) (unknown) (unknown) Promethazine 25 Mg Supp PA 25 mg (units unknown) (unknown) (unknown) (no date) (unknown) (unknown) Promethazine HCl 25 mg 08/12/22 00:54 08/13/22 15:23 (units unknown) (unknown) (unknown) (no date) (unknown) (unknown) Protocol (units unknown) (unknown) (unknown) (no date) (unknown) (unknown) Provider: Diana Miller (units unknown) (unknown) (unknown) (no date) (unknown) (unknown) Pulse Oximetry 100 (units unknown) (unknown) (unknown) (no date) (unknown) (unknown) Pulse Rate 80 (units unknown) (unknown) (unknown) (no date) (unknown) (unknown) Q1H [facility] Administration (units unknown) (unknown) (unknown) (no date) (unknown) (unknown) Q24H [facility] Administration (units unknown) (unknown) (unknown) (no date) (unknown) (unknown) Q4H PRN Administration (units unknown) (unknown) (unknown) (no date) (unknown) (unknown) Q4HR PRN Administration (units unknown) (unknown) (unknown) (no date) (unknown) (unknown) Q6H PRN Administration (units unknown) (unknown) (unknown) (no date) (unknown) (unknown) Q6HR PRN Administration (units unknown) (unknown) (unknown) (no date) (unknown) (unknown) RBC 3.74 L (units unknown) (unknown) (unknown) (no date) (unknown) (unknown) RBC (units unknown) (unknown) (unknown) (no date) (unknown) (unknown) RDW 16.3 H (units unknown) (unknown) (unknown) (no date) (unknown) (unknown) RDW (units unknown) (unknown) (unknown) (no date) (unknown) (unknown) Respiratory Rate 20 (units unknown) (unknown) (unknown) (no date) (unknown) (unknown) Signed By: (units unknown) (unknown) (unknown) (no date) (unknown) (unknown) Smoking Status: Current every day smoker (units unknown) (unknown) (unknown) (no date) (unknown) (unknown) Social History (units unknown) (unknown) (unknown) (no date) (unknown) (unknown) Sodium 130 L 129 L (units unknown) (unknown) (unknown) (no date) (unknown) (unknown) Sodium 130 L (units unknown) (unknown) (unknown) (no date) (unknown) (unknown) Sodium Chloride 1,00 0 mls @ 75 mls/hr 08/12/22 00:45 08/14/22 21:59 (units unknown) (unknown) (unknown) (no date) (unknown) (unknown) Sodium Chloride IV 08/16/22 06:59 200 mls/hr (units unknown) (unknown) (unknown) (no date) (unknown) (unknown) Status post appendectomy (units unknown) (unknown) (unknown) (no date) (unknown) (unknown) Surgical History (units unknown) (unknown) (unknown) (no date) (unknown) (unknown) TITRATE [facility] 6 mls/hr (units unknown) (unknown) (unknown) (no date) (unknown) (unknown) 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 (units unknown) (unknown) (unknown) (no date) (unknown) (unknown) Temperature 97.4 F L (units unknown) (unknown) (unknown) (no date) (unknown) (unknown) Trade Name Dwayne NG Reason Stop Dose Admin (units unknown) (unknown) (unknown) (no date) (unknown) (unknown) Urine Osmolality 440 (units unknown) (unknown) (unknown) (no date) (unknown) (unknown) Urine Osmolality (units unknown) (unknown) (unknown) (no date) (unknown) (unknown) Visit Medications (administered) (units unknown) (unknown) (unknown) (no date) (unknown) (unknown) Vital Signs (units unknown) (unknown) (unknown) (no date) (unknown) (unknown) WBC 5.3 (units unknown) (unknown) (unknown) (no date) (unknown) (unknown) WBC (units unknown) (unknown) (unknown) (no date) (unknown) (unknown) [Embedded Image Not Available] (units unknown) (unknown) (unknown) (no date) (unknown) (unknown) [History Confirmed 08/12/22] (units unknown) (unknown) (unknown) (no date) (unknown) (unknown) alcohol intake: never (units unknown) (unknown) (unknown) (no date) (unknown) (unknown) aspart) 56 unit SUBCUT DAILY 08/12/22 [History Confirmed 08/14/22] (units unknown) (unknown) (unknown) (no date) (unknown) (unknown) days #20 tabs 08/11/22 [Rx Confirmed 08/12/22] (units unknown) (unknown) (unknown) (no date) (unknown) (unknown) household members: spouse (units unknown) (unknown) (unknown) (no date) (unknown) (unknown) insulin aspart U-100 100 unit/mL subcutaneous solution (Novolog U-100 Insulin (units unknown) (unknown) (unknown) (no date) (unknown) (unknown) insulin syringes (disposable) 1 mL #500 ea 08/04/20 [Rx Confirmed 08/14/22] (units unknown) (unknown) (unknown) (no date) (unknown) (unknown) metoclopramide HCl 5 mg/5 mL oral solution 5 mg PO Q8H PRN Nausea 08/12/22 (units unknown) (unknown) (unknown) (no date) (unknown) (unknown) nausea or vomiting (units unknown) (unknown) (unknown) (no date) (unknown) (unknown) promethazine 12.5 mg tablet 25 mg PO BID PRN nausea and vomiting 08/12/22 (units unknown) (unknown) (unknown) (no date) (unknown) (unknown) promethazine 25 mg rectal suppository (Promethegan) 25 mg PA Q4-6H PRN Nausea (units unknown) (unknown) (unknown) (no date) (unknown) (unknown) sulfamethoxazole 800 mg-trimethoprim 160 mg tablet (Bactrim DS) 1 tab PO Q12H 10 (units unknown) (unknown) Result panel 1672 (unknown) (no date) (unknown) (unknown) (no value) (units unknown) (unknown) (unknown) (no date) (unknown) (unknown) # Chronic vomiting (units unknown) (unknown) (unknown) (no date) (unknown) (unknown) # DKA, Type 1 DM c/b gastroparesis, peripheral neuropathy (units unknown) (unknown) (unknown) (no date) (unknown) (unknown) # Hypokalemia (units unknown) (unknown) (unknown) (no date) (unknown) (unknown) # UTI (units unknown) (unknown) (unknown) (no date) (unknown) (unknown) #: [id number] (units unknown) (unknown) (unknown) (no date) (unknown) (unknown) (past 8 hours): (units unknown) (unknown) (unknown) (no date) (unknown) (unknown) - Continue insulin drip and IVFs until AGAP has closed and patient is able to (units unknown) (unknown) (unknown) (no date) (unknown) (unknown) - Continue (units unknown) (unknown) (unknown) (no date) (unknown) (unknown) - PRN antiemetics. Would monitor daily QT given medication side effects (units unknown) (unknown) (unknown) (no date) (unknown) (unknown) - Replete K, Mg (units unknown) (unknown) (unknown) (no date) (unknown) (unknown) - Restart insulin drip. Start D5NS. Q4-6H BMPs, replete aggressively. Typical (units unknown) (unknown) (unknown) (no date) (unknown) (unknown) 08/12/22 08/14/22 08/14/22 (units unknown) (unknown) (unknown) (no date) (unknown) (unknown) 08/15/22 08/15/22 08/15/22 (units unknown) (unknown) (unknown) (no date) (unknown) (unknown) 08/15/22 04:24 (units unknown) (unknown) (unknown) (no date) (unknown) (unknown) 08/15/22 10:19 (units unknown) (unknown) (unknown) (no date) (unknown) (unknown) 08/15/22 (units unknown) (unknown) (unknown) (no date) (unknown) (unknown) 04: 04:24 10:00 (units unknown) (unknown) (unknown) (no date) (unknown) (unknown) 06:10 04:11 11:55 (units unknown) (unknown) (unknown) (no date) (unknown) (unknown) 07:00 (units unknown) (unknown) (unknown) (no date) (unknown) (unknown) 07:40 (units unknown) (unknown) (unknown) (no date) (unknown) (unknown) 08:00 08/15/22 (units unknown) (unknown) (unknown) (no date) (unknown) (unknown) 10:12 (units unknown) (unknown) (unknown) (no date) (unknown) (unknown) ACHS [facility] Administration (units unknown) (unknown) (unknown) (no date) (unknown) (unknown) Acetaminophen 325 Mg Tablet PO 650 mg (units unknown) (unknown) (unknown) (no date) (unknown) (unknown) Acetaminophen 650 mg 08/12/22 01:00 08/14/22 15:44 (units unknown) (unknown) (unknown) (no date) (unknown) (unknown) Administration (units unknown) (unknown) (unknown) (no date) (unknown) (unknown) Age/Sex: 27 / F (units unknown) (unknown) (unknown) (no date) (unknown) (unknown) And Vomiting 2 [History Confirmed 08/12/22] (units unknown) (unknown) (unknown) (no date) (unknown) (unknown) Anemia (units unknown) (unknown) (unknown) (no date) (unknown) (unknown) Anxiety (units unknown) (unknown) (unknown) (no date) (unknown) (unknown) Assessment + Plan narrative: (units unknown) (unknown) (unknown) (no date) (unknown) (unknown) Assessment + Plan (units unknown) (unknown) (unknown) (no date) (unknown) (unknown) BID [facility] Administration (units unknown) (unknown) (unknown) (no date) (unknown) (unknown) BUN 2 L < 2 L (units unknown) (unknown) (unknown) (no date) (unknown) (unknown) BUN 4 L (units unknown) (unknown) (unknown) (no date) (unknown) (unknown) BUN/Creatinine Ratio 3.6 L 3.8 L (units unknown) (unknown) (unknown) (no date) (unknown) (unknown) BUN/Creatinine Ratio 6.0 (units unknown) (unknown) (unknown) (no date) (unknown) (unknown) Baso # (Auto) 0 (units unknown) (unknown) (unknown) (no date) (unknown) (unknown) Baso # (Auto) (units unknown) (unknown) (unknown) (no date) (unknown) (unknown) Baso % (Auto) 0.4 (units unknown) (unknown) (unknown) (no date) (unknown) (unknown) Baso % (Auto) (units unknown) (unknown) (unknown) (no date) (unknown) (unknown) Blood Pressure 140/88 (units unknown) (unknown) (unknown) (no date) (unknown) (unknown) CONT [facility] Administration (units unknown) (unknown) (unknown) (no date) (unknown) (unknown) Calcium 7.7 L (units unknown) (unknown) (unknown) (no date) (unknown) (unknown) Calcium 7.8 L 7.3 L (units unknown) (unknown) (unknown) (no date) (unknown) (unknown) Cannabis hyperemesis syndrome concurrent with and due to cannabis dependence (units unknown) (unknown) (unknown) (no date) (unknown) (unknown) Carbon Dioxide 12 L (units unknown) (unknown) (unknown) (no date) (unknown) (unknown) Carbon Dioxide 17 L 22 (units unknown) (unknown) (unknown) (no date) (unknown) (unknown) Ceftriaxone Sodium 1,000 mg/ 100 mls @ 200 mls/hr 08/13/22 07:00 08/15/22 (units unknown) (unknown) (unknown) (no date) (unknown) (unknown) Chief complaint: vomiting, back pain was seen earlier today (units unknown) (unknown) (unknown) (no date) (unknown) (unknown) Chloride 102 101 (units unknown) (unknown) (unknown) (no date) (unknown) (unknown) Chloride 97 L (units unknown) (unknown) (unknown) (no date) (unknown) (unknown) 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: Yes (units unknown) (unknown) (unknown) (no date) (unknown) (unknown) Consult details (units unknown) (unknown) (unknown) (no date) (unknown) (unknown) Creatinine 0.56 0.52 (units unknown) (unknown) (unknown) (no date) (unknown) (unknown) Creatinine 0.67 (units unknown) (unknown) (unknown) (no date) (unknown) (unknown) Current Medications (units unknown) (unknown) (unknown) (no date) (unknown) (unknown) Cyclic vomiting syndrome (units unknown) (unknown) (unknown) (no date) (unknown) (unknown) DAILY LETICIA Administration (units unknown) (unknown) (unknown) (no date) (unknown) (unknown) DKA (diabetic ketoacidoses) (units unknown) (unknown) (unknown) (no date) (unknown) (unknown) DKA protocol. (units unknown) (unknown) (unknown) (no date) (unknown) (unknown) : 1995 Acct:[id number] (units unknown) (unknown) (unknown) (no date) (unknown) (unknown) Date of Service: 08/13/22 (units unknown) (unknown) (unknown) (no date) (unknown) (unknown) Dextrose 5%-0.9% Ns IV 125 mls/hr (units unknown) (unknown) (unknown) (no date) (unknown) (unknown) Dextrose/Sodium Chloride 1,000 mls @ 125 mls/hr 08/15/22 09:45 08/15/22 10:04 (units unknown) (unknown) (unknown) (no date) (unknown) (unknown) Diabetes mellitus, type I (units unknown) (unknown) (unknown) (no date) (unknown) (unknown) Eos # (Auto) 0 (units unknown) (unknown) (unknown) (no date) (unknown) (unknown) Eos # (Auto) (units unknown) (unknown) (unknown) (no date) (unknown) (unknown) Eos % (Auto) 0.0 L (units unknown) (unknown) (unknown) (no date) (unknown) (unknown) Eos % (Auto) (units unknown) (unknown) (unknown) (no date) (unknown) (unknown) Estimated GFR > 60 > 60 (units unknown) (unknown) (unknown) (no date) (unknown) (unknown) Estimated GFR > 60 (units unknown) (unknown) (unknown) (no date) (unknown) (unknown) Exam (units unknown) (unknown) (unknown) (no date) (unknown) (unknown) Family History (units unknown) (unknown) (unknown) (no date) (unknown) (unknown) Father Healthy adult (units unknown) (unknown) (unknown) (no date) (unknown) (unknown) Fever/Mild Pain (1-3) (units unknown) (unknown) (unknown) (no date) (unknown) (unknown) Gastroparesis (units unknown) (unknown) (unknown) (no date) (unknown) (unknown) Generic Name Dose Route Start Last Admin (units unknown) (unknown) (unknown) (no date) (unknown) (unknown) Glucose 159 H 138 H (units unknown) (unknown) (unknown) (no date) (unknown) (unknown) Glucose 339 H D (units unknown) (unknown) (unknown) (no date) (unknown) (unknown) Haloperidol 0.5 mg 08/14/22 14:57 08/14/22 23:27 (units unknown) (unknown) (unknown) (no date) (unknown) (unknown) Haloperidol 5 Mg/Ml Vial IV 0.5 mg (units unknown) (unknown) (unknown) (no date) (unknown) (unknown) Hct 29.3 L (units unknown) (unknown) (unknown) (no date) (unknown) (unknown) Hct (units unknown) (unknown) (unknown) (no date) (unknown) (unknown) Hgb 9.8 L (units unknown) (unknown) (unknown) (no date) (unknown) (unknown) Hgb (units unknown) (unknown) (unknown) (no date) (unknown) (unknown) History of Present Illness (units unknown) (unknown) (unknown) (no date) (unknown) (unknown) Home Medications (units unknown) (unknown) (unknown) (no date) (unknown) (unknown) Hydroxyzine Pamoate 25 Mg Capsule PO 25 mg (units unknown) (unknown) (unknown) (no date) (unknown) (unknown) Hydroxyzine Pamoate 25 mg 08/14/22 12:26 08/15/22 09:48 (units unknown) (unknown) (unknown) (no date) (unknown) (unknown) INSULIN DRIP PREMIX 100 unit in 100 mls @ 6 mls/hr 08/15/22 09:45 08/15/22 (units unknown) (unknown) (unknown) (no date) (unknown) (unknown) Insulin Glargine 100 Unit/Ml 3ml Pen SUBCUT 20 unit (units unknown) (unknown) (unknown) (no date) (unknown) (unknown) Insulin Glargine 20 unit 08/14/22 21:00 08/15/22 08:05 (units unknown) (unknown) (unknown) (no date) (unknown) (unknown) Insulin Human Regula r 0 unit 08/15/22 08:00 08/15/22 08:07 (units unknown) (unknown) (unknown) (no date) (unknown) (unknown) Insulin Regular 100 Unit/Ml 3 Ml Vial SUBCUT 2 unit (units unknown) (unknown) (unknown) (no date) (unknown) (unknown) Insulin dependent diabetes mellitus (units unknown) (unknown) (unknown) (no date) (unknown) (unknown) [address] [address] (units unknown) (unknown) (unknown) (no date) (unknown) (unknown) Itching (units unknown) (unknown) (unknown) (no date) (unknown) (unknown) Laboratory Results - last 24 hr (units unknown) (unknown) (unknown) (no date) (unknown) (unknown) Labs (units unknown) (unknown) (unknown) (no date) (unknown) (unknown) Labs: (units unknown) (unknown) (unknown) (no date) (unknown) (unknown) Lactate 1.2 (units unknown) (unknown) (unknown) (no date) (unknown) (unknown) Lactate (units unknown) (unknown) (unknown) (no date) (unknown) (unknown) Lorazepam 0.5 mg 08/14/22 14:57 08/14/22 23:27 (units unknown) (unknown) (unknown) (no date) (unknown) (unknown) Lorazepam 1 Mg Table t PO 0.5 mg (units unknown) (unknown) (unknown) (no date) (unknown) (unknown) Lymph # (Auto) 700 L (units unknown) (unknown) (unknown) (no date) (unknown) (unknown) Lymph # (Auto) (units unknown) (unknown) (unknown) (no date) (unknown) (unknown) Lymph % (Auto) 13.4 L (units unknown) (unknown) (unknown) (no date) (unknown) (unknown) Lymph % (Auto) (units unknown) (unknown) (unknown) (no date) (unknown) (unknown) MCH 26.1 (units unknown) (unknown) (unknown) (no date) (unknown) (unknown) MCH (units unknown) (unknown) (unknown) (no date) (unknown) (unknown) MCHC 33.4 (units unknown) (unknown) (unknown) (no date) (unknown) (unknown) MCHC (units unknown) (unknown) (unknown) (no date) (unknown) (unknown) MCV 78.3 L (units unknown) (unknown) (unknown) (no date) (unknown) (unknown) MCV (units unknown) (unknown) (unknown) (no date) (unknown) (unknown) Medical History (Updated 08/12/22 @ 02:17 by Gracia Smith [facility]) (units unknown) (unknown) (unknown) (no date) (unknown) (unknown) Medications: (units unknown) (unknown) (unknown) (no date) (unknown) (unknown) Metoclopramide 10 Mg/2 Ml Inj IV 10 mg (units unknown) (unknown) (unknown) (no date) (unknown) (unknown) Metoclopramide HCl 1 0 mg 08/13/22 09:29 08/14/22 22:22 (units unknown) (unknown) (unknown) (no date) (unknown) (unknown) Migraine headache with aura (units unknown) (unknown) (unknown) (no date) (unknown) (unknown) O'Brien # (Auto) 500 (units unknown) (unknown) (unknown) (no date) (unknown) (unknown) O'Brien # (Auto) (units unknown) (unknown) (unknown) (no date) (unknown) (unknown) O'Brien % (Auto) 9.5 (units unknown) (unknown) (unknown) (no date) (unknown) (unknown) O'Brien % (Auto) (units unknown) (unknown) (unknown) (no date) (unknown) (unknown) Mother Hypertension (units unknown) (unknown) (unknown) (no date) (unknown) (unknown) Myopia (units unknown) (unknown) (unknown) (no date) (unknown) (unknown) Myxredlin Drip Premi x IV 6 units/hr (units unknown) (unknown) (unknown) (no date) (unknown) (unknown) Nausea And Vomiting (units unknown) (unknown) (unknown) (no date) (unknown) (unknown) Nausea (units unknown) (unknown) (unknown) (no date) (unknown) (unknown) Neut # (Auto) 4100 (units unknown) (unknown) (unknown) (no date) (unknown) (unknown) Neut # (Auto) (units unknown) (unknown) (unknown) (no date) (unknown) (unknown) Neut % (Auto) 76.7 H (units unknown) (unknown) (unknown) (no date) (unknown) (unknown) Neut % (Auto) (units unknown) (unknown) (unknown) (no date) (unknown) (unknown) Normal Saline 0.9% I V 100 mls/hr (units unknown) (unknown) (unknown) (no date) (unknown) (unknown) Objective (units unknown) (unknown) (unknown) (no date) (unknown) (unknown) Ondansetron 4 Mg/2 M l Inj IV 4 mg (units unknown) (unknown) (unknown) (no date) (unknown) (unknown) Ondansetron HCl 4 mg 08/12/22 07:47 08/15/22 03:05 (units unknown) (unknown) (unknown) (no date) (unknown) (unknown) Oxycodone HCl 5 mg 08/14/22 12:49 08/15/22 10:25 (units unknown) (unknown) (unknown) (no date) (unknown) (unknown) Oxycodone Ir 5 Mg Tablet PO 5 mg (units unknown) (unknown) (unknown) (no date) (unknown) (unknown) Oxygen Delivery Method Room Air (units unknown) (unknown) (unknown) (no date) (unknown) (unknown) Oxygen Flow Rate 0 (units unknown) (unknown) (unknown) (no date) (unknown) (unknown) PFSH (units unknown) (unknown) (unknown) (no date) (unknown) (unknown) POTASSIUM CHLORIDE I N WATER 10 meq in 100 mls @ 100 mls/hr 08/15/22 09:45 (units unknown) (unknown) (unknown) (no date) (unknown) (unknown) Pain, Moderate (4-6) (units unknown) (unknown) (unknown) (no date) (unknown) (unknown) Pancreatitis (units unknown) (unknown) (unknown) (no date) (unknown) (unknown) Pantoprazole 40 Mg Vial IV 20 mg (units unknown) (unknown) (unknown) (no date) (unknown) (unknown) Pantoprazole Sodium 20 mg 08/12/22 09:00 08/15/22 09:42 (units unknown) (unknown) (unknown) (no date) (unknown) (unknown) Patient Location: ICU (units unknown) (unknown) (unknown) (no date) (unknown) (unknown) Patient: Kaur Horton MR (units unknown) (unknown) (unknown) (no date) (unknown) (unknown) Plt Count 285 (units unknown) (unknown) (unknown) (no date) (unknown) (unknown) Plt Count (units unknown) (unknown) (unknown) (no date) (unknown) (unknown) Potassium 3.2 L (units unknown) (unknown) (unknown) (no date) (unknown) (unknown) Potassium 3.7 3.4 (units unknown) (unknown) (unknown) (no date) (unknown) (unknown) Potassium Cl 10 Meq/100 Ml Yana IV 08/15/22 13:44 100 mls/hr (units unknown) (unknown) (unknown) (no date) (unknown) (unknown) Promethazine 25 Mg Supp PA 25 mg (units unknown) (unknown) (unknown) (no date) (unknown) (unknown) Promethazine HCl 25 mg 08/12/22 00:54 08/13/22 15:23 (units unknown) (unknown) (unknown) (no date) (unknown) (unknown) Protocol (units unknown) (unknown) (unknown) (no date) (unknown) (unknown) Provider: Diana Miller (units unknown) (unknown) (unknown) (no date) (unknown) (unknown) Pulse Oximetry 100 (units unknown) (unknown) (unknown) (no date) (unknown) (unknown) Pulse Rate 80 (units unknown) (unknown) (unknown) (no date) (unknown) (unknown) Q1H LETICIA Administration (units unknown) (unknown) (unknown) (no date) (unknown) (unknown) Q24H LET[place]IA Administration (units unknown) (unknown) (unknown) (no date) (unknown) (unknown) Q4H PRN Administration (units unknown) (unknown) (unknown) (no date) (unknown) (unknown) Q4HR PRN Administration (units unknown) (unknown) (unknown) (no date) (unknown) (unknown) Q6H PRN Administration (units unknown) (unknown) (unknown) (no date) (unknown) (unknown) Q6HR PRN Administration (units unknown) (unknown) (unknown) (no date) (unknown) (unknown) RBC 3.74 L (units unknown) (unknown) (unknown) (no date) (unknown) (unknown) RBC (units unknown) (unknown) (unknown) (no date) (unknown) (unknown) RDW 16.3 H (units unknown) (unknown) (unknown) (no date) (unknown) (unknown) RDW (units unknown) (unknown) (unknown) (no date) (unknown) (unknown) Respiratory Rate 20 (units unknown) (unknown) (unknown) (no date) (unknown) (unknown) Signed By: (units unknown) (unknown) (unknown) (no date) (unknown) (unknown) Smoking Status: Current every day smoker (units unknown) (unknown) (unknown) (no date) (unknown) (unknown) Social History (units unknown) (unknown) (unknown) (no date) (unknown) (unknown) Sodium 130 L 129 L (units unknown) (unknown) (unknown) (no date) (unknown) (unknown) Sodium 130 L (units unknown) (unknown) (unknown) (no date) (unknown) (unknown) Sodium Chloride 1,00 0 mls @ 75 mls/hr 08/12/22 00:45 08/14/22 21:59 (units unknown) (unknown) (unknown) (no date) (unknown) (unknown) Sodium Chloride IV 08/16/22 06:59 200 mls/hr (units unknown) (unknown) (unknown) (no date) (unknown) (unknown) Status post appendectomy (units unknown) (unknown) (unknown) (no date) (unknown) (unknown) Surgical History (units unknown) (unknown) (unknown) (no date) (unknown) (unknown) TITRATE LET[place]IA 6 mls/hr (units unknown) (unknown) (unknown) (no date) (unknown) (unknown) 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 (units unknown) (unknown) (unknown) (no date) (unknown) (unknown) Temperature 97.4 F L (units unknown) (unknown) (unknown) (no date) (unknown) (unknown) Trade Name Dwayne [facility] Reason Stop Dose Admin (units unknown) (unknown) (unknown) (no date) (unknown) (unknown) Urine Osmolality 440 (units unknown) (unknown) (unknown) (no date) (unknown) (unknown) Urine Osmolality (units unknown) (unknown) (unknown) (no date) (unknown) (unknown) Visit Medications (administered) (units unknown) (unknown) (unknown) (no date) (unknown) (unknown) Vital Signs (units unknown) (unknown) (unknown) (no date) (unknown) (unknown) WBC 5.3 (units unknown) (unknown) (unknown) (no date) (unknown) (unknown) WBC (units unknown) (unknown) (unknown) (no date) (unknown) (unknown) [Embedded Image Not Available] (units unknown) (unknown) (unknown) (no date) (unknown) (unknown) [History Confirmed 08/12/22] (units unknown) (unknown) (unknown) (no date) (unknown) (unknown) alcohol intake: never (units unknown) (unknown) (unknown) (no date) (unknown) (unknown) aspart) 56 unit SUBCUT DAILY 08/12/22 [History Confirmed 08/14/22] (units unknown) (unknown) (unknown) (no date) (unknown) (unknown) days #20 tabs 08/11/22 [Rx Confirmed 08/12/22] (units unknown) (unknown) (unknown) (no date) (unknown) (unknown) household members: spouse (units unknown) (unknown) (unknown) (no date) (unknown) (unknown) insulin aspart U-100 100 unit/mL subcutaneous solution (Novolog U-100 Insulin (units unknown) (unknown) (unknown) (no date) (unknown) (unknown) insulin syringes (disposable) 1 mL #500 ea 08/04/20 [Rx Confirmed 08/14/22] (units unknown) (unknown) (unknown) (no date) (unknown) (unknown) metoclopramide HCl 5 mg/5 mL oral solution 5 mg PO Q8H PRN Nausea 08/12/22 (units unknown) (unknown) (unknown) (no date) (unknown) (unknown) nausea or vomiting (units unknown) (unknown) (unknown) (no date) (unknown) (unknown) promethazine 12.5 mg tablet 25 mg PO BID PRN nausea and vomiting 08/12/22 (units unknown) (unknown) (unknown) (no date) (unknown) (unknown) promethazine 25 mg rectal suppository (Promethegan) 25 mg PA Q4-6H PRN Nausea (units unknown) (unknown) (unknown) (no date) (unknown) (unknown) sulfamethoxazole 800 mg-trimethoprim 160 mg tablet (Bactrim DS) 1 tab PO Q12H 10 (units unknown) (unknown) (unknown) (no date) (unknown) (unknown) tolerate PO. (units unknown) (unknown) Result panel [id number] (unknown) (no date) (unknown) (unknown) (no value) (units unknown) (unknown) (unknown) (no date) (unknown) (unknown) # Chronic vomiting (units unknown) (unknown) (unknown) (no date) (unknown) (unknown) # DKA, Type 1 DM c/b gastroparesis, peripheral neuropathy (units unknown) (unknown) (unknown) (no date) (unknown) (unknown) # Hypokalemia (units unknown) (unknown) (unknown) (no date) (unknown) (unknown) # UTI (units unknown) (unknown) (unknown) (no date) (unknown) (unknown) #: [id number] (units unknown) (unknown) (unknown) (no date) (unknown) (unknown) (past 8 hours): (units unknown) (unknown) (unknown) (no date) (unknown) (unknown) - Continue insulin drip and IVFs until AGAP has closed and patient is able to (units unknown) (unknown) (unknown) (no date) (unknown) (unknown) - Continue (units unknown) (unknown) (unknown) (no date) (unknown) (unknown) - PRN antiemetics. Would monitor daily QT given medication side effects (units unknown) (unknown) (unknown) (no date) (unknown) (unknown) - Replete K, Mg (units unknown) (unknown) (unknown) (no date) (unknown) (unknown) - Restart insulin drip. Start D5NS. Q4-6H BMPs, replete aggressively. Typical (units unknown) (unknown) (unknown) (no date) (unknown) (unknown) 08/12/22 08/14/22 08/14/22 (units unknown) (unknown) (unknown) (no date) (unknown) (unknown) 08/15/22 08/15/22 08/15/22 (units unknown) (unknown) (unknown) (no date) (unknown) (unknown) 08/15/22 04:24 (units unknown) (unknown) (unknown) (no date) (unknown) (unknown) 08/15/22 10:19 (units unknown) (unknown) (unknown) (no date) (unknown) (unknown) 08/15/22 (units unknown) (unknown) (unknown) (no date) (unknown) (unknown) 04:24 04:24 10:00 (units unknown) (unknown) (unknown) (no date) (unknown) (unknown) 06:10 04:11 11:55 (units unknown) (unknown) (unknown) (no date) (unknown) (unknown) 07:00 (units unknown) (unknown) (unknown) (no date) (unknown) (unknown) 07:40 (units unknown) (unknown) (unknown) (no date) (unknown) (unknown) 08:00 08/15/22 (units unknown) (unknown) (unknown) (no date) (unknown) (unknown) 10:12 (units unknown) (unknown) (unknown) (no date) (unknown) (unknown) ACHS LET[place]IA Administration (units unknown) (unknown) (unknown) (no date) (unknown) (unknown) Acetaminophen 325 Mg Tablet PO 650 mg (units unknown) (unknown) (unknown) (no date) (unknown) (unknown) Acetaminophen 650 mg 08/12/22 01:00 08/14/22 15:44 (units unknown) (unknown) (unknown) (no date) (unknown) (unknown) Administration (units unknown) (unknown) (unknown) (no date) (unknown) (unknown) Age/Sex: 27 / F (units unknown) (unknown) (unknown) (no date) (unknown) (unknown) And Vomiting 2 [History Confirmed 08/12/22] (units unknown) (unknown) (unknown) (no date) (unknown) (unknown) Anemia (units unknown) (unknown) (unknown) (no date) (unknown) (unknown) Anxiety (units unknown) (unknown) (unknown) (no date) (unknown) (unknown) Assessment + Plan narrative: (units unknown) (unknown) (unknown) (no date) (unknown) (unknown) Assessment + Plan (units unknown) (unknown) (unknown) (no date) (unknown) (unknown) BID LETICIA Administration (units unknown) (unknown) (unknown) (no date) (unknown) (unknown) BUN 2 L < 2 L (units unknown) (unknown) (unknown) (no date) (unknown) (unknown) BUN 4 L (units unknown) (unknown) (unknown) (no date) (unknown) (unknown) BUN/Creatinine Ratio 3.6 L 3.8 L (units unknown) (unknown) (unknown) (no date) (unknown) (unknown) BUN/Creatinine Ratio 6.0 (units unknown) (unknown) (unknown) (no date) (unknown) (unknown) Baso # (Auto) 0 (units unknown) (unknown) (unknown) (no date) (unknown) (unknown) Baso # (Auto) (units unknown) (unknown) (unknown) (no date) (unknown) (unknown) Baso % (Auto) 0.4 (units unknown) (unknown) (unknown) (no date) (unknown) (unknown) Baso % (Auto) (units unknown) (unknown) (unknown) (no date) (unknown) (unknown) Blood Pressure 140/88 (units unknown) (unknown) (unknown) (no date) (unknown) (unknown) CONT LETICIA Administration (units unknown) (unknown) (unknown) (no date) (unknown) (unknown) Calcium 7.7 L (units unknown) (unknown) (unknown) (no date) (unknown) (unknown) Calcium 7.8 L 7.3 L (units unknown) (unknown) (unknown) (no date) (unknown) (unknown) Cannabis hyperemesis syndrome concurrent with and due to cannabis dependence (units unknown) (unknown) (unknown) (no date) (unknown) (unknown) Carbon Dioxide 12 L (units unknown) (unknown) (unknown) (no date) (unknown) (unknown) Carbon Dioxide 17 L 22 (units unknown) (unknown) (unknown) (no date) (unknown) (unknown) Ceftriaxone Sodium 1,000 mg/ 100 mls @ 200 mls/hr 08/13/22 07:00 08/15/22 (units unknown) (unknown) (unknown) (no date) (unknown) (unknown) Chief complaint: vomiting, back pain was seen earlier today (units unknown) (unknown) (unknown) (no date) (unknown) (unknown) Chloride 102 101 (units unknown) (unknown) (unknown) (no date) (unknown) (unknown) Chloride 97 L (units unknown) (unknown) (unknown) (no date) (unknown) (unknown) 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: Yes (units unknown) (unknown) (unknown) (no date) (unknown) (unknown) Consult details (units unknown) (unknown) (unknown) (no date) (unknown) (unknown) Creatinine 0.56 0.52 (units unknown) (unknown) (unknown) (no date) (unknown) (unknown) Creatinine 0.67 (units unknown) (unknown) (unknown) (no date) (unknown) (unknown) Current Medications (units unknown) (unknown) (unknown) (no date) (unknown) (unknown) Cyclic vomiting syndrome (units unknown) (unknown) (unknown) (no date) (unknown) (unknown) DAILY LET[place]IA Administration (units unknown) (unknown) (unknown) (no date) (unknown) (unknown) DKA (diabetic ketoacidoses) (units unknown) (unknown) (unknown) (no date) (unknown) (unknown) DKA protocol. (units unknown) (unknown) (unknown) (no date) (unknown) (unknown) : 1995 Acct:[id number] (units unknown) (unknown) (unknown) (no date) (unknown) (unknown) Date of Service: 08/13/22 (units unknown) (unknown) (unknown) (no date) (unknown) (unknown) Dextrose 5%-0.9% Ns IV 125 mls/hr (units unknown) (unknown) (unknown) (no date) (unknown) (unknown) Dextrose/Sodium Chloride 1,000 mls @ 125 mls/hr 08/15/22 09:45 08/15/22 10:04 (units unknown) (unknown) (unknown) (no date) (unknown) (unknown) Diabetes mellitus, type I (units unknown) (unknown) (unknown) (no date) (unknown) (unknown) Eos # (Auto) 0 (units unknown) (unknown) (unknown) (no date) (unknown) (unknown) Eos # (Auto) (units unknown) (unknown) (unknown) (no date) (unknown) (unknown) Eos % (Auto) 0.0 L (units unknown) (unknown) (unknown) (no date) (unknown) (unknown) Eos % (Auto) (units unknown) (unknown) (unknown) (no date) (unknown) (unknown) Estimated GFR > 60 > 60 (units unknown) (unknown) (unknown) (no date) (unknown) (unknown) Estimated GFR > 60 (units unknown) (unknown) (unknown) (no date) (unknown) (unknown) Exam (units unknown) (unknown) (unknown) (no date) (unknown) (unknown) Family History (units unknown) (unknown) (unknown) (no date) (unknown) (unknown) Father Healthy adult (units unknown) (unknown) (unknown) (no date) (unknown) (unknown) Fever/Mild Pain (1-3) (units unknown) (unknown) (unknown) (no date) (unknown) (unknown) Gastroparesis (units unknown) (unknown) (unknown) (no date) (unknown) (unknown) Generic Name Dose Route Start Last Admin (units unknown) (unknown) (unknown) (no date) (unknown) (unknown) Glucose 159 H 138 H (units unknown) (unknown) (unknown) (no date) (unknown) (unknown) Glucose 339 H D (units unknown) (unknown) (unknown) (no date) (unknown) (unknown) Haloperidol 0.5 mg 08/14/22 14:57 08/14/22 23:27 (units unknown) (unknown) (unknown) (no date) (unknown) (unknown) Haloperidol 5 Mg/Ml Vial IV 0.5 mg (units unknown) (unknown) (unknown) (no date) (unknown) (unknown) Hct 29.3 L (units unknown) (unknown) (unknown) (no date) (unknown) (unknown) Hct (units unknown) (unknown) (unknown) (no date) (unknown) (unknown) Hgb 9.8 L (units unknown) (unknown) (unknown) (no date) (unknown) (unknown) Hgb (units unknown) (unknown) (unknown) (no date) (unknown) (unknown) History of Present Illness (units unknown) (unknown) (unknown) (no date) (unknown) (unknown) Home Medications (units unknown) (unknown) (unknown) (no date) (unknown) (unknown) Hydroxyzine Pamoate 25 Mg Capsule PO 25 mg (units unknown) (unknown) (unknown) (no date) (unknown) (unknown) Hydroxyzine Pamoate 25 mg 08/14/22 12:26 08/15/22 09:48 (units unknown) (unknown) (unknown) (no date) (unknown) (unknown) INSULIN DRIP PREMIX 100 unit in 100 mls @ 6 mls/hr 08/15/22 09:45 08/15/22 (units unknown) (unknown) (unknown) (no date) (unknown) (unknown) Insulin Glargine 100 Unit/Ml 3ml Pen SUBCUT 20 unit (units unknown) (unknown) (unknown) (no date) (unknown) (unknown) Insulin Glargine 20 unit 08/14/22 21:00 08/15/22 08:05 (units unknown) (unknown) (unknown) (no date) (unknown) (unknown) Insulin Human Regula r 0 unit 08/15/22 08:00 08/15/22 08:07 (units unknown) (unknown) (unknown) (no date) (unknown) (unknown) Insulin Regular 100 Unit/Ml 3 Ml Vial SUBCUT 2 unit (units unknown) (unknown) (unknown) (no date) (unknown) (unknown) Insulin dependent diabetes mellitus (units unknown) (unknown) (unknown) (no date) (unknown) (unknown) [address] [address] (units unknown) (unknown) (unknown) (no date) (unknown) (unknown) Itching (units unknown) (unknown) (unknown) (no date) (unknown) (unknown) Laboratory Results - last 24 hr (units unknown) (unknown) (unknown) (no date) (unknown) (unknown) Labs (units unknown) (unknown) (unknown) (no date) (unknown) (unknown) Labs: (units unknown) (unknown) (unknown) (no date) (unknown) (unknown) Lactate 1.2 (units unknown) (unknown) (unknown) (no date) (unknown) (unknown) Lactate (units unknown) (unknown) (unknown) (no date) (unknown) (unknown) Lorazepam 0.5 mg 08/14/22 14:57 08/14/22 23:27 (units unknown) (unknown) (unknown) (no date) (unknown) (unknown) Lorazepam 1 Mg Table t PO 0.5 mg (units unknown) (unknown) (unknown) (no date) (unknown) (unknown) Lymph # (Auto) 700 L (units unknown) (unknown) (unknown) (no date) (unknown) (unknown) Lymph # (Auto) (units unknown) (unknown) (unknown) (no date) (unknown) (unknown) Lymph % (Auto) 13.4 L (units unknown) (unknown) (unknown) (no date) (unknown) (unknown) Lymph % (Auto) (units unknown) (unknown) (unknown) (no date) (unknown) (unknown) MCH 26.1 (units unknown) (unknown) (unknown) (no date) (unknown) (unknown) MCH (units unknown) (unknown) (unknown) (no date) (unknown) (unknown) MCHC 33.4 (units unknown) (unknown) (unknown) (no date) (unknown) (unknown) MCHC (units unknown) (unknown) (unknown) (no date) (unknown) (unknown) MCV 78.3 L (units unknown) (unknown) (unknown) (no date) (unknown) (unknown) MCV (units unknown) (unknown) (unknown) (no date) (unknown) (unknown) Medical History (Updated 08/12/22 @ 02:17 by COLTON Leggett) (units unknown) (unknown) (unknown) (no date) (unknown) (unknown) Medications: (units unknown) (unknown) (unknown) (no date) (unknown) (unknown) Metoclopramide 10 Mg/2 Ml Inj IV 10 mg (units unknown) (unknown) (unknown) (no date) (unknown) (unknown) Metoclopramide HCl 1 0 mg 08/13/22 09:29 08/14/22 22:22 (units unknown) (unknown) (unknown) (no date) (unknown) (unknown) Migraine headache with aura (units unknown) (unknown) (unknown) (no date) (unknown) (unknown) O'Brien # (Auto) 500 (units unknown) (unknown) (unknown) (no date) (unknown) (unknown) O'Brien # (Auto) (units unknown) (unknown) (unknown) (no date) (unknown) (unknown) O'Brien % (Auto) 9.5 (units unknown) (unknown) (unknown) (no date) (unknown) (unknown) O'Brien % (Auto) (units unknown) (unknown) (unknown) (no date) (unknown) (unknown) Mother Hypertension (units unknown) (unknown) (unknown) (no date) (unknown) (unknown) Myopia (units unknown) (unknown) (unknown) (no date) (unknown) (unknown) Myxredlin Drip Premi x IV 6 units/hr (units unknown) (unknown) (unknown) (no date) (unknown) (unknown) Narrative: (units unknown) (unknown) (unknown) (no date) (unknown) (unknown) Nausea And Vomiting (units unknown) (unknown) (unknown) (no date) (unknown) (unknown) Nausea (units unknown) (unknown) (unknown) (no date) (unknown) (unknown) Neut # (Auto) 4100 (units unknown) (unknown) (unknown) (no date) (unknown) (unknown) Neut # (Auto) (units unknown) (unknown) (unknown) (no date) (unknown) (unknown) Neut % (Auto) 76.7 H (units unknown) (unknown) (unknown) (no date) (unknown) (unknown) Neut % (Auto) (units unknown) (unknown) (unknown) (no date) (unknown) (unknown) Normal Saline 0.9% I V 100 mls/hr (units unknown) (unknown) (unknown) (no date) (unknown) (unknown) Objective (units unknown) (unknown) (unknown) (no date) (unknown) (unknown) Ondansetron 4 Mg/2 M l Inj IV 4 mg (units unknown) (unknown) (unknown) (no date) (unknown) (unknown) Ondansetron HCl 4 mg 08/12/22 07:47 08/15/22 03:05 (units unknown) (unknown) (unknown) (no date) (unknown) (unknown) Other participants/roles: RN (units unknown) (unknown) (unknown) (no date) (unknown) (unknown) Oxycodone HCl 5 mg 08/14/22 12:49 08/15/22 10:25 (units unknown) (unknown) (unknown) (no date) (unknown) (unknown) Oxycodone Ir 5 Mg Tablet PO 5 mg (units unknown) (unknown) (unknown) (no date) (unknown) (unknown) Oxygen Delivery Method Room Air (units unknown) (unknown) (unknown) (no date) (unknown) (unknown) Oxygen Flow Rate 0 (units unknown) (unknown) (unknown) (no date) (unknown) (unknown) PFSH (units unknown) (unknown) (unknown) (no date) (unknown) (unknown) PO intake, continued intermittent vomiting. Per RN, patient drinking some (units unknown) (unknown) (unknown) (no date) (unknown) (unknown) POTASSIUM CHLORIDE I N WATER 10 meq in 100 mls @ 100 mls/hr 08/15/22 09:45 (units unknown) (unknown) (unknown) (no date) (unknown) (unknown) Pain, Moderate (4-6) (units unknown) (unknown) (unknown) (no date) (unknown) (unknown) Pancreatitis (units unknown) (unknown) (unknown) (no date) (unknown) (unknown) Pantoprazole 40 Mg Vial IV 20 mg (units unknown) (unknown) (unknown) (no date) (unknown) (unknown) Pantoprazole Sodium 20 mg 08/12/22 09:00 08/15/22 09:42 (units unknown) (unknown) (unknown) (no date) (unknown) (unknown) Patient Location: ICU (units unknown) (unknown) (unknown) (no date) (unknown) (unknown) Patient is a 27F wit h a PMH of Type 1 Diabetes c/b Gastroparesis + Peripheral (units unknown) (unknown) (unknown) (no date) (unknown) (unknown) Patient: Kaur Horton MR (units unknown) (unknown) (unknown) (no date) (unknown) (unknown) Plt Count 285 (units unknown) (unknown) (unknown) (no date) (unknown) (unknown) Plt Count (units unknown) (unknown) (unknown) (no date) (unknown) (unknown) Potassium 3.2 L (units unknown) (unknown) (unknown) (no date) (unknown) (unknown) Potassium 3.7 3.4 (units unknown) (unknown) (unknown) (no date) (unknown) (unknown) Potassium Cl 10 Meq/100 Ml Yana IV 08/15/22 13:44 100 mls/hr (units unknown) (unknown) (unknown) (no date) (unknown) (unknown) Promethazine 25 Mg Supp PA 25 mg (units unknown) (unknown) (unknown) (no date) (unknown) (unknown) Promethazine HCl 25 mg 08/12/22 00:54 08/13/22 15:23 (units unknown) (unknown) (unknown) (no date) (unknown) (unknown) Protocol (units unknown) (unknown) (unknown) (no date) (unknown) (unknown) Provider: Diana Miller (units unknown) (unknown) (unknown) (no date) (unknown) (unknown) Pulse Oximetry 100 (units unknown) (unknown) (unknown) (no date) (unknown) (unknown) Pulse Rate 80 (units unknown) (unknown) (unknown) (no date) (unknown) (unknown) Q1H LETICIA Administration (units unknown) (unknown) (unknown) (no date) (unknown) (unknown) Q24H LETICIA Administration (units unknown) (unknown) (unknown) (no date) (unknown) (unknown) Q4H PRN Administration (units unknown) (unknown) (unknown) (no date) (unknown) (unknown) Q4HR PRN Administration (units unknown) (unknown) (unknown) (no date) (unknown) (unknown) Q6H PRN Administration (units unknown) (unknown) (unknown) (no date) (unknown) (unknown) Q6HR PRN Administration (units unknown) (unknown) (unknown) (no date) (unknown) (unknown) RBC 3.74 L (units unknown) (unknown) (unknown) (no date) (unknown) (unknown) RBC (units unknown) (unknown) (unknown) (no date) (unknown) (unknown) RDW 16.3 H (units unknown) (unknown) (unknown) (no date) (unknown) (unknown) RDW (units unknown) (unknown) (unknown) (no date) (unknown) (unknown) Respiratory Rate 20 (units unknown) (unknown) (unknown) (no date) (unknown) (unknown) Signed By: (units unknown) (unknown) (unknown) (no date) (unknown) (unknown) Smoking Status: Current every day smoker (units unknown) (unknown) (unknown) (no date) (unknown) (unknown) Social History (units unknown) (unknown) (unknown) (no date) (unknown) (unknown) Sodium 130 L 129 L (units unknown) (unknown) (unknown) (no date) (unknown) (unknown) Sodium 130 L (units unknown) (unknown) (unknown) (no date) (unknown) (unknown) Sodium Chloride 1,00 0 mls @ 75 mls/hr 08/12/22 00:45 08/14/22 21:59 (units unknown) (unknown) (unknown) (no date) (unknown) (unknown) Sodium Chloride IV 08/16/22 06:59 200 mls/hr (units unknown) (unknown) (unknown) (no date) (unknown) (unknown) Status post appendectomy (units unknown) (unknown) (unknown) (no date) (unknown) (unknown) Surgical History (units unknown) (unknown) (unknown) (no date) (unknown) (unknown) TITRATE LETICIA 6 mls/hr (units unknown) (unknown) (unknown) (no date) (unknown) (unknown) 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 (units unknown) (unknown) (unknown) (no date) (unknown) (unknown) Temperature 97.4 F L (units unknown) (unknown) (unknown) (no date) (unknown) (unknown) Trade Name Dwayne PRN Reason Stop Dose Admin (units unknown) (unknown) (unknown) (no date) (unknown) (unknown) Urine Osmolality 440 (units unknown) (unknown) (unknown) (no date) (unknown) (unknown) Urine Osmolality (units unknown) (unknown) (unknown) (no date) (unknown) (unknown) Visit Medications (administered) (units unknown) (unknown) (unknown) (no date) (unknown) (unknown) Vital Signs (units unknown) (unknown) (unknown) (no date) (unknown) (unknown) WBC 5.3 (units unknown) (unknown) (unknown) (no date) (unknown) (unknown) WBC (units unknown) (unknown) (unknown) (no date) (unknown) (unknown) [Embedded Image Not Available] (units unknown) (unknown) (unknown) (no date) (unknown) (unknown) [History Confirmed 08/12/22] (units unknown) (unknown) (unknown) (no date) (unknown) (unknown) alcohol intake: never (units unknown) (unknown) (unknown) (no date) (unknown) (unknown) aspart) 56 unit SUBCUT DAILY 08/12/22 [History Confirmed 08/14/22] (units unknown) (unknown) (unknown) (no date) (unknown) (unknown) days #20 tabs 08/11/22 [Rx Confirmed 08/12/22] (units unknown) (unknown) (unknown) (no date) (unknown) (unknown) gatoride prior to BG checks. (units unknown) (unknown) (unknown) (no date) (unknown) (unknown) household members: spouse (units unknown) (unknown) (unknown) (no date) (unknown) (unknown) insulin aspart U-100 100 unit/mL subcutaneous solution (Novolog U-100 Insulin (units unknown) (unknown) (unknown) (no date) (unknown) (unknown) insulin syringes (disposable) 1 mL #500 ea 08/04/20 [Rx Confirmed 08/14/22] (units unknown) (unknown) (unknown) (no date) (unknown) (unknown) metoclopramide HCl 5 mg/5 mL oral solution 5 mg PO Q8H PRN Nausea 08/12/22 (units unknown) (unknown) (unknown) (no date) (unknown) (unknown) nausea or vomiting (units unknown) (unknown) (unknown) (no date) (unknown) (unknown) neuropathy, marijuan a daily use, cannabis hyperemesis syndrome, cyclic vomiting (units unknown) (unknown) (unknown) (no date) (unknown) (unknown) patient with new AGA P to 21 and bicarb has fallen. BG in 100s-300s range. Poor (units unknown) (unknown) (unknown) (no date) (unknown) (unknown) patients DKA was thought to of resolved (AGAP closed) and patient was (units unknown) (unknown) (unknown) (no date) (unknown) (unknown) promethazine 12.5 mg tablet 25 mg PO BID PRN nausea and vomiting 08/12/22 (units unknown) (unknown) (unknown) (no date) (unknown) (unknown) promethazine 25 mg rectal suppository (Promethegan) 25 mg PA Q4-6H PRN Nausea (units unknown) (unknown) (unknown) (no date) (unknown) (unknown) sulfamethoxazole 800 mg-trimethoprim 160 mg tablet (Bactrim DS) 1 tab PO Q12H 10 (units unknown) (unknown) (unknown) (no date) (unknown) (unknown) syndrome, GERD, and migraines, who was admitted with DKA, UTI. Yesterday, (units unknown) (unknown) (unknown) (no date) (unknown) (unknown) tolerate PO. (units unknown) (unknown) (unknown) (no date) (unknown) (unknown) transitioned off insulin drip to long-acting. However, on this mornings labs (units unknown) (unknown) Result panel [id number] (unknown) (no date) (unknown) (unknown) (no value) (units unknown) (unknown) (unknown) (no date) (unknown) (unknown) # Chronic vomiting (units unknown) (unknown) (unknown) (no date) (unknown) (unknown) # DKA, Type 1 DM c/b gastroparesis, peripheral neuropathy (units unknown) (unknown) (unknown) (no date) (unknown) (unknown) # Hypokalemia (units unknown) (unknown) (unknown) (no date) (unknown) (unknown) # UTI (units unknown) (unknown) (unknown) (no date) (unknown) (unknown) #: [id number] (units unknown) (unknown) (unknown) (no date) (unknown) (unknown) (past 8 hours): (units unknown) (unknown) (unknown) (no date) (unknown) (unknown) - Continue insulin drip and IVFs until AGAP has closed and patient is able to (units unknown) (unknown) (unknown) (no date) (unknown) (unknown) - Continue (units unknown) (unknown) (unknown) (no date) (unknown) (unknown) - PRN antiemetics. Would monitor daily QT given medication side effects (units unknown) (unknown) (unknown) (no date) (unknown) (unknown) - Replete K, Mg (units unknown) (unknown) (unknown) (no date) (unknown) (unknown) - Restart insulin drip. Start D5NS. Q4-6H BMPs, replete aggressively. Typical (units unknown) (unknown) (unknown) (no date) (unknown) (unknown) 08/12/22 08/14/22 08/14/22 (units unknown) (unknown) (unknown) (no date) (unknown) (unknown) 08/15/22 08/15/22 08/15/22 (units unknown) (unknown) (unknown) (no date) (unknown) (unknown) 08/15/22 04:24 (units unknown) (unknown) (unknown) (no date) (unknown) (unknown) 08/15/22 10:19 (units unknown) (unknown) (unknown) (no date) (unknown) (unknown) 08/15/22 (units unknown) (unknown) (unknown) (no date) (unknown) (unknown) 04: 04:24 10:00 (units unknown) (unknown) (unknown) (no date) (unknown) (unknown) 06:10 04:11 11:55 (units unknown) (unknown) (unknown) (no date) (unknown) (unknown) 07:00 (units unknown) (unknown) (unknown) (no date) (unknown) (unknown) 07:40 (units unknown) (unknown) (unknown) (no date) (unknown) (unknown) 08:00 08/15/22 (units unknown) (unknown) (unknown) (no date) (unknown) (unknown) 10:12 (units unknown) (unknown) (unknown) (no date) (unknown) (unknown) ACHS LETICIA Administration (units unknown) (unknown) (unknown) (no date) (unknown) (unknown) Acetaminophen 325 Mg Tablet PO 650 mg (units unknown) (unknown) (unknown) (no date) (unknown) (unknown) Acetaminophen 650 mg 08/12/22 01:00 08/14/22 15:44 (units unknown) (unknown) (unknown) (no date) (unknown) (unknown) Administration (units unknown) (unknown) (unknown) (no date) (unknown) (unknown) Age/Sex: 27 / F (units unknown) (unknown) (unknown) (no date) (unknown) (unknown) And Vomiting 2 [History Confirmed 08/12/22] (units unknown) (unknown) (unknown) (no date) (unknown) (unknown) Anemia (units unknown) (unknown) (unknown) (no date) (unknown) (unknown) Anxiety (units unknown) (unknown) (unknown) (no date) (unknown) (unknown) Assessment + Plan narrative: (units unknown) (unknown) (unknown) (no date) (unknown) (unknown) Assessment + Plan (units unknown) (unknown) (unknown) (no date) (unknown) (unknown) BID LETICIA Administration (units unknown) (unknown) (unknown) (no date) (unknown) (unknown) BUN 2 L < 2 L (units unknown) (unknown) (unknown) (no date) (unknown) (unknown) BUN 4 L (units unknown) (unknown) (unknown) (no date) (unknown) (unknown) BUN/Creatinine Ratio 3.6 L 3.8 L (units unknown) (unknown) (unknown) (no date) (unknown) (unknown) BUN/Creatinine Ratio 6.0 (units unknown) (unknown) (unknown) (no date) (unknown) (unknown) Baso # (Auto) 0 (units unknown) (unknown) (unknown) (no date) (unknown) (unknown) Baso # (Auto) (units unknown) (unknown) (unknown) (no date) (unknown) (unknown) Baso % (Auto) 0.4 (units unknown) (unknown) (unknown) (no date) (unknown) (unknown) Baso % (Auto) (units unknown) (unknown) (unknown) (no date) (unknown) (unknown) Blood Pressure 140/88 (units unknown) (unknown) (unknown) (no date) (unknown) (unknown) CONT LETICIA Administration (units unknown) (unknown) (unknown) (no date) (unknown) (unknown) Calcium 7.7 L (units unknown) (unknown) (unknown) (no date) (unknown) (unknown) Calcium 7.8 L 7.3 L (units unknown) (unknown) (unknown) (no date) (unknown) (unknown) Cannabis hyperemesis syndrome concurrent with and due to cannabis dependence (units unknown) (unknown) (unknown) (no date) (unknown) (unknown) Carbon Dioxide 12 L (units unknown) (unknown) (unknown) (no date) (unknown) (unknown) Carbon Dioxide 17 L 22 (units unknown) (unknown) (unknown) (no date) (unknown) (unknown) Ceftriaxone Sodium 1,000 mg/ 100 mls @ 200 mls/hr 08/13/22 07:00 08/15/22 (units unknown) (unknown) (unknown) (no date) (unknown) (unknown) Chief complaint: vomiting, back pain was seen earlier today (units unknown) (unknown) (unknown) (no date) (unknown) (unknown) Chloride 102 101 (units unknown) (unknown) (unknown) (no date) (unknown) (unknown) Chloride 97 L (units unknown) (unknown) (unknown) (no date) (unknown) (unknown) 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: Yes (units unknown) (unknown) (unknown) (no date) (unknown) (unknown) Consult details (units unknown) (unknown) (unknown) (no date) (unknown) (unknown) Creatinine 0.56 0.52 (units unknown) (unknown) (unknown) (no date) (unknown) (unknown) Creatinine 0.67 (units unknown) (unknown) (unknown) (no date) (unknown) (unknown) Current Medications (units unknown) (unknown) (unknown) (no date) (unknown) (unknown) Cyclic vomiting syndrome (units unknown) (unknown) (unknown) (no date) (unknown) (unknown) DAILY LETICIA Administration (units unknown) (unknown) (unknown) (no date) (unknown) (unknown) DKA (diabetic ketoacidoses) (units unknown) (unknown) (unknown) (no date) (unknown) (unknown) DKA protocol. (units unknown) (unknown) (unknown) (no date) (unknown) (unknown) : 1995 Acct:[id number] (units unknown) (unknown) (unknown) (no date) (unknown) (unknown) Date of Service: 08/13/22 (units unknown) (unknown) (unknown) (no date) (unknown) (unknown) Dextrose 5%-0.9% Ns IV 125 mls/hr (units unknown) (unknown) (unknown) (no date) (unknown) (unknown) Dextrose/Sodium Chloride 1,000 mls @ 125 mls/hr 08/15/22 09:45 08/15/22 10:04 (units unknown) (unknown) (unknown) (no date) (unknown) (unknown) Diabetes mellitus, type I (units unknown) (unknown) (unknown) (no date) (unknown) (unknown) Eos # (Auto) 0 (units unknown) (unknown) (unknown) (no date) (unknown) (unknown) Eos # (Auto) (units unknown) (unknown) (unknown) (no date) (unknown) (unknown) Eos % (Auto) 0.0 L (units unknown) (unknown) (unknown) (no date) (unknown) (unknown) Eos % (Auto) (units unknown) (unknown) (unknown) (no date) (unknown) (unknown) Estimated GFR > 60 > 60 (units unknown) (unknown) (unknown) (no date) (unknown) (unknown) Estimated GFR > 60 (units unknown) (unknown) (unknown) (no date) (unknown) (unknown) Exam (units unknown) (unknown) (unknown) (no date) (unknown) (unknown) Family History (units unknown) (unknown) (unknown) (no date) (unknown) (unknown) Father Healthy adult (units unknown) (unknown) (unknown) (no date) (unknown) (unknown) Fever/Mild Pain (1-3) (units unknown) (unknown) (unknown) (no date) (unknown) (unknown) Gastroparesis (units unknown) (unknown) (unknown) (no date) (unknown) (unknown) Generic Name Dose Route Start Last Admin (units unknown) (unknown) (unknown) (no date) (unknown) (unknown) Glucose 159 H 138 H (units unknown) (unknown) (unknown) (no date) (unknown) (unknown) Glucose 339 H D (units unknown) (unknown) (unknown) (no date) (unknown) (unknown) Haloperidol 0.5 mg 08/14/22 14:57 08/14/22 23:27 (units unknown) (unknown) (unknown) (no date) (unknown) (unknown) Haloperidol 5 Mg/Ml Vial IV 0.5 mg (units unknown) (unknown) (unknown) (no date) (unknown) (unknown) Hct 29.3 L (units unknown) (unknown) (unknown) (no date) (unknown) (unknown) Hct (units unknown) (unknown) (unknown) (no date) (unknown) (unknown) Hgb 9.8 L (units unknown) (unknown) (unknown) (no date) (unknown) (unknown) Hgb (units unknown) (unknown) (unknown) (no date) (unknown) (unknown) History of Present Illness (units unknown) (unknown) (unknown) (no date) (unknown) (unknown) Home Medications (units unknown) (unknown) (unknown) (no date) (unknown) (unknown) Hydroxyzine Pamoate 25 Mg Capsule PO 25 mg (units unknown) (unknown) (unknown) (no date) (unknown) (unknown) Hydroxyzine Pamoate 25 mg 08/14/22 12:26 08/15/22 09:48 (units unknown) (unknown) (unknown) (no date) (unknown) (unknown) INSULIN DRIP PREMIX 100 unit in 100 mls @ 6 mls/hr 08/15/22 09:45 08/15/22 (units unknown) (unknown) (unknown) (no date) (unknown) (unknown) Insulin Glargine 100 Unit/Ml 3ml Pen SUBCUT 20 unit (units unknown) (unknown) (unknown) (no date) (unknown) (unknown) Insulin Glargine 20 unit 08/14/22 21:00 08/15/22 08:05 (units unknown) (unknown) (unknown) (no date) (unknown) (unknown) Insulin Human Regula r 0 unit 08/15/22 08:00 08/15/22 08:07 (units unknown) (unknown) (unknown) (no date) (unknown) (unknown) Insulin Regular 100 Unit/Ml 3 Ml Vial SUBCUT 2 unit (units unknown) (unknown) (unknown) (no date) (unknown) (unknown) Insulin dependent diabetes mellitus (units unknown) (unknown) (unknown) (no date) (unknown) (unknown) [address] [id number] (units unknown) (unknown) (unknown) (no date) (unknown) (unknown) Itching (units unknown) (unknown) (unknown) (no date) (unknown) (unknown) Laboratory Results - last 24 hr (units unknown) (unknown) (unknown) (no date) (unknown) (unknown) Labs (units unknown) (unknown) (unknown) (no date) (unknown) (unknown) Labs: (units unknown) (unknown) (unknown) (no date) (unknown) (unknown) Lactate 1.2 (units unknown) (unknown) (unknown) (no date) (unknown) (unknown) Lactate (units unknown) (unknown) (unknown) (no date) (unknown) (unknown) Lorazepam 0.5 mg 08/14/22 14:57 08/14/22 23:27 (units unknown) (unknown) (unknown) (no date) (unknown) (unknown) Lorazepam 1 Mg Table t PO 0.5 mg (units unknown) (unknown) (unknown) (no date) (unknown) (unknown) Lymph # (Auto) 700 L (units unknown) (unknown) (unknown) (no date) (unknown) (unknown) Lymph # (Auto) (units unknown) (unknown) (unknown) (no date) (unknown) (unknown) Lymph % (Auto) 13.4 L (units unknown) (unknown) (unknown) (no date) (unknown) (unknown) Lymph % (Auto) (units unknown) (unknown) (unknown) (no date) (unknown) (unknown) MCH 26.1 (units unknown) (unknown) (unknown) (no date) (unknown) (unknown) MCH (units unknown) (unknown) (unknown) (no date) (unknown) (unknown) MCHC 33.4 (units unknown) (unknown) (unknown) (no date) (unknown) (unknown) MCHC (units unknown) (unknown) (unknown) (no date) (unknown) (unknown) MCV 78.3 L (units unknown) (unknown) (unknown) (no date) (unknown) (unknown) MCV (units unknown) (unknown) (unknown) (no date) (unknown) (unknown) Medical History (Updated 08/12/22 @ 02:17 by Gracia Smith [facility]) (units unknown) (unknown) (unknown) (no date) (unknown) (unknown) Medications: (units unknown) (unknown) (unknown) (no date) (unknown) (unknown) Metoclopramide 10 Mg/2 Ml Inj IV 10 mg (units unknown) (unknown) (unknown) (no date) (unknown) (unknown) Metoclopramide HCl 1 0 mg 08/13/22 09:29 08/14/22 22:22 (units unknown) (unknown) (unknown) (no date) (unknown) (unknown) Migraine headache with aura (units unknown) (unknown) (unknown) (no date) (unknown) (unknown) O'Brien # (Auto) 500 (units unknown) (unknown) (unknown) (no date) (unknown) (unknown) O'Brien # (Auto) (units unknown) (unknown) (unknown) (no date) (unknown) (unknown) O'Brien % (Auto) 9.5 (units unknown) (unknown) (unknown) (no date) (unknown) (unknown) O'Brien % (Auto) (units unknown) (unknown) (unknown) (no date) (unknown) (unknown) Mother Hypertension (units unknown) (unknown) (unknown) (no date) (unknown) (unknown) Myopia (units unknown) (unknown) (unknown) (no date) (unknown) (unknown) Myxredlin Drip Premi x IV 6 units/hr (units unknown) (unknown) (unknown) (no date) (unknown) (unknown) Narrative: (units unknown) (unknown) (unknown) (no date) (unknown) (unknown) Nausea And Vomiting (units unknown) (unknown) (unknown) (no date) (unknown) (unknown) Nausea (units unknown) (unknown) (unknown) (no date) (unknown) (unknown) Neut # (Auto) 4100 (units unknown) (unknown) (unknown) (no date) (unknown) (unknown) Neut # (Auto) (units unknown) (unknown) (unknown) (no date) (unknown) (unknown) Neut % (Auto) 76.7 H (units unknown) (unknown) (unknown) (no date) (unknown) (unknown) Neut % (Auto) (units unknown) (unknown) (unknown) (no date) (unknown) (unknown) Normal Saline 0.9% I V 100 mls/hr (units unknown) (unknown) (unknown) (no date) (unknown) (unknown) Objective (units unknown) (unknown) (unknown) (no date) (unknown) (unknown) Ondansetron 4 Mg/2 M l Inj IV 4 mg (units unknown) (unknown) (unknown) (no date) (unknown) (unknown) Ondansetron HCl 4 mg 08/12/22 07:47 08/15/22 03:05 (units unknown) (unknown) (unknown) (no date) (unknown) (unknown) Other participants/roles: RN (units unknown) (unknown) (unknown) (no date) (unknown) (unknown) Oxycodone HCl 5 mg 08/14/22 12:49 08/15/22 10:25 (units unknown) (unknown) (unknown) (no date) (unknown) (unknown) Oxycodone Ir 5 Mg Tablet PO 5 mg (units unknown) (unknown) (unknown) (no date) (unknown) (unknown) Oxygen Delivery Method Room Air (units unknown) (unknown) (unknown) (no date) (unknown) (unknown) Oxygen Flow Rate 0 (units unknown) (unknown) (unknown) (no date) (unknown) (unknown) PFSH (units unknown) (unknown) (unknown) (no date) (unknown) (unknown) PO intake, continued intermittent vomiting. Per RN, patient drinking some (units unknown) (unknown) (unknown) (no date) (unknown) (unknown) POTASSIUM CHLORIDE I N WATER 10 meq in 100 mls @ 100 mls/hr 08/15/22 09:45 (units unknown) (unknown) (unknown) (no date) (unknown) (unknown) Pain, Moderate (4-6) (units unknown) (unknown) (unknown) (no date) (unknown) (unknown) Pancreatitis (units unknown) (unknown) (unknown) (no date) (unknown) (unknown) Pantoprazole 40 Mg Vial IV 20 mg (units unknown) (unknown) (unknown) (no date) (unknown) (unknown) Pantoprazole Sodium 20 mg 08/12/22 09:00 08/15/22 09:42 (units unknown) (unknown) (unknown) (no date) (unknown) (unknown) Patient Location: ICU (units unknown) (unknown) (unknown) (no date) (unknown) (unknown) Patient is a 27F wit h a PMH of Type 1 Diabetes c/b Gastroparesis + Peripheral (units unknown) (unknown) (unknown) (no date) (unknown) (unknown) Patient: Kaur Horton MR (units unknown) (unknown) (unknown) (no date) (unknown) (unknown) Plt Count 285 (units unknown) (unknown) (unknown) (no date) (unknown) (unknown) Plt Count (units unknown) (unknown) (unknown) (no date) (unknown) (unknown) Potassium 3.2 L (units unknown) (unknown) (unknown) (no date) (unknown) (unknown) Potassium 3.7 3.4 (units unknown) (unknown) (unknown) (no date) (unknown) (unknown) Potassium Cl 10 Meq/100 Ml Yana IV 08/15/22 13:44 100 mls/hr (units unknown) (unknown) (unknown) (no date) (unknown) (unknown) Promethazine 25 Mg Supp PA 25 mg (units unknown) (unknown) (unknown) (no date) (unknown) (unknown) Promethazine HCl 25 mg 08/12/22 00:54 04/25/23 15:23 (units unknown) (unknown) (unknown) (no date) (unknown) (unknown) Protocol (units unknown) (unknown) (unknown) (no date) (unknown) (unknown) Provider location (State): [place] (units unknown) (unknown) (unknown) (no date) (unknown) (unknown) Provider: Diana Miller (units unknown) (unknown) (unknown) (no date) (unknown) (unknown) Pulse Oximetry 100 (units unknown) (unknown) (unknown) (no date) (unknown) (unknown) Pulse Rate 80 (units unknown) (unknown) (unknown) (no date) (unknown) (unknown) Q1H LET[place]IA Administration (units unknown) (unknown) (unknown) (no date) (unknown) (unknown) Q24H LETICIA Administration (units unknown) (unknown) (unknown) (no date) (unknown) (unknown) Q4H PRN Administration (units unknown) (unknown) (unknown) (no date) (unknown) (unknown) Q4HR PRN Administration (units unknown) (unknown) (unknown) (no date) (unknown) (unknown) Q6H PRN Administration (units unknown) (unknown) (unknown) (no date) (unknown) (unknown) Q6HR PRN Administration (units unknown) (unknown) (unknown) (no date) (unknown) (unknown) RBC 3.74 L (units unknown) (unknown) (unknown) (no date) (unknown) (unknown) RBC (units unknown) (unknown) (unknown) (no date) (unknown) (unknown) RDW 16.3 H (units unknown) (unknown) (unknown) (no date) (unknown) (unknown) RDW (units unknown) (unknown) (unknown) (no date) (unknown) (unknown) Respiratory Rate 20 (units unknown) (unknown) (unknown) (no date) (unknown) (unknown) Signed By: (units unknown) (unknown) (unknown) (no date) (unknown) (unknown) Smoking Status: Current every day smoker (units unknown) (unknown) (unknown) (no date) (unknown) (unknown) Social History (units unknown) (unknown) (unknown) (no date) (unknown) (unknown) Sodium 130 L 129 L (units unknown) (unknown) (unknown) (no date) (unknown) (unknown) Sodium 130 L (units unknown) (unknown) (unknown) (no date) (unknown) (unknown) Sodium Chloride 1,00 0 mls @ 75 mls/hr 08/12/22 00:45 08/14/22 21:59 (units unknown) (unknown) (unknown) (no date) (unknown) (unknown) Sodium Chloride IV 08/16/22 06:59 200 mls/hr (units unknown) (unknown) (unknown) (no date) (unknown) (unknown) Status post appendectomy (units unknown) (unknown) (unknown) (no date) (unknown) (unknown) Surgical History (units unknown) (unknown) (unknown) (no date) (unknown) (unknown) TITRATE LET[place]IA 6 mls/hr (units unknown) (unknown) (unknown) (no date) (unknown) (unknown) 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 (units unknown) (unknown) (unknown) (no date) (unknown) (unknown) Temperature 97.4 F L (units unknown) (unknown) (unknown) (no date) (unknown) (unknown) Trade Name Dwayne PRN Reason Stop Dose Admin (units unknown) (unknown) (unknown) (no date) (unknown) (unknown) Urine Osmolality 440 (units unknown) (unknown) (unknown) (no date) (unknown) (unknown) Urine Osmolality (units unknown) (unknown) (unknown) (no date) (unknown) (unknown) Visit Medications (administered) (units unknown) (unknown) (unknown) (no date) (unknown) (unknown) Vital Signs (units unknown) (unknown) (unknown) (no date) (unknown) (unknown) WBC 5.3 (units unknown) (unknown) (unknown) (no date) (unknown) (unknown) WBC (units unknown) (unknown) (unknown) (no date) (unknown) (unknown) [Embedded Image Not Available] (units unknown) (unknown) (unknown) (no date) (unknown) (unknown) [History Confirmed 08/12/22] (units unknown) (unknown) (unknown) (no date) (unknown) (unknown) alcohol intake: never (units unknown) (unknown) (unknown) (no date) (unknown) (unknown) aspart) 56 unit SUBCUT DAILY 08/12/22 [History Confirmed 08/14/22] (units unknown) (unknown) (unknown) (no date) (unknown) (unknown) days #20 tabs 08/11/22 [Rx Confirmed 08/12/22] (units unknown) (unknown) (unknown) (no date) (unknown) (unknown) gatoride prior to BG checks. (units unknown) (unknown) (unknown) (no date) (unknown) (unknown) household members: spouse (units unknown) (unknown) (unknown) (no date) (unknown) (unknown) insulin aspart U-100 100 unit/mL subcutaneous solution (Novolog U-100 Insulin (units unknown) (unknown) (unknown) (no date) (unknown) (unknown) insulin syringes (disposable) 1 mL #500 ea 08/04/20 [Rx Confirmed 08/14/22] (units unknown) (unknown) (unknown) (no date) (unknown) (unknown) metoclopramide HCl 5 mg/5 mL oral solution 5 mg PO Q8H PRN Nausea 08/12/22 (units unknown) (unknown) (unknown) (no date) (unknown) (unknown) nausea or vomiting (units unknown) (unknown) (unknown) (no date) (unknown) (unknown) neuropathy, marijuan a daily use, cannabis hyperemesis syndrome, cyclic vomiting (units unknown) (unknown) (unknown) (no date) (unknown) (unknown) patient with new AGA P to 21 and bicarb has fallen. BG in 100s-300s range. Poor (units unknown) (unknown) (unknown) (no date) (unknown) (unknown) patients DKA was thought to of resolved (AGAP closed) and patient was (units unknown) (unknown) (unknown) (no date) (unknown) (unknown) promethazine 12.5 mg tablet 25 mg PO BID PRN nausea and vomiting 08/12/22 (units unknown) (unknown) (unknown) (no date) (unknown) (unknown) promethazine 25 mg rectal suppository (Promethegan) 25 mg PA Q4-6H PRN Nausea (units unknown) (unknown) (unknown) (no date) (unknown) (unknown) sulfamethoxazole 800 mg-trimethoprim 160 mg tablet (Bactrim DS) 1 tab PO Q12H 10 (units unknown) (unknown) (unknown) (no date) (unknown) (unknown) syndrome, GERD, and migraines, who was admitted with DKA, UTI. Yesterday, (units unknown) (unknown) (unknown) (no date) (unknown) (unknown) tolerate PO. (units unknown) (unknown) (unknown) (no date) (unknown) (unknown) transitioned off insulin drip to long-acting. However, on this mornings labs (units unknown) (unknown) Result panel [id number] (unknown) (no date) (unknown) (unknown) (no value) (units unknown) (unknown) (unknown) (no date) (unknown) (unknown) # Chronic vomiting (units unknown) (unknown) (unknown) (no date) (unknown) (unknown) # DKA, Type 1 DM c/b gastroparesis, peripheral neuropathy (units unknown) (unknown) (unknown) (no date) (unknown) (unknown) # Hypokalemia (units unknown) (unknown) (unknown) (no date) (unknown) (unknown) # UTI (units unknown) (unknown) (unknown) (no date) (unknown) (unknown) #: [id number] (units unknown) (unknown) (unknown) (no date) (unknown) (unknown) (past 8 hours): (units unknown) (unknown) (unknown) (no date) (unknown) (unknown) - Continue Cetriaxon e to complete a course (units unknown) (unknown) (unknown) (no date) (unknown) (unknown) - Continue insulin drip and IVFs until AGA has closed and patient is able to (units unknown) (unknown) (unknown) (no date) (unknown) (unknown) - PRN antiemetics. Would monitor daily QT given medication side effects (units unknown) (unknown) (unknown) (no date) (unknown) (unknown) - Q4H BMPs, replete aggressively. Daily Mg, Phos (units unknown) (unknown) (unknown) (no date) (unknown) (unknown) - Replete K, Mg now then start drip (units unknown) (unknown) (unknown) (no date) (unknown) (unknown) - Restart insulin drip. Start D5NS. (units unknown) (unknown) (unknown) (no date) (unknown) (unknown) 08/12/22 08/14/22 08/14/22 (units unknown) (unknown) (unknown) (no date) (unknown) (unknown) 08/15/22 08/15/22 08/15/22 (units unknown) (unknown) (unknown) (no date) (unknown) (unknown) 08/15/22 04:24 (units unknown) (unknown) (unknown) (no date) (unknown) (unknown) 08/15/22 10:19 (units unknown) (unknown) (unknown) (no date) (unknown) (unknown) 08/15/22 (units unknown) (unknown) (unknown) (no date) (unknown) (unknown) 04: 04:24 10:00 (units unknown) (unknown) (unknown) (no date) (unknown) (unknown) 06:10 04:11 11:55 (units unknown) (unknown) (unknown) (no date) (unknown) (unknown) 07:00 (units unknown) (unknown) (unknown) (no date) (unknown) (unknown) 07:40 (units unknown) (unknown) (unknown) (no date) (unknown) (unknown) 08:00 08/15/22 (units unknown) (unknown) (unknown) (no date) (unknown) (unknown) 10:12 (units unknown) (unknown) (unknown) (no date) (unknown) (unknown) ACHS [facility] Administration (units unknown) (unknown) (unknown) (no date) (unknown) (unknown) Acetaminophen 325 Mg Tablet PO 650 mg (units unknown) (unknown) (unknown) (no date) (unknown) (unknown) Acetaminophen 650 mg 08/12/22 01:00 08/14/22 15:44 (units unknown) (unknown) (unknown) (no date) (unknown) (unknown) Administration (units unknown) (unknown) (unknown) (no date) (unknown) (unknown) Age/Sex: 27 / F (units unknown) (unknown) (unknown) (no date) (unknown) (unknown) And Vomiting 2 [History Confirmed 08/12/22] (units unknown) (unknown) (unknown) (no date) (unknown) (unknown) Anemia (units unknown) (unknown) (unknown) (no date) (unknown) (unknown) Anxiety (units unknown) (unknown) (unknown) (no date) (unknown) (unknown) Assessment + Plan narrative: (units unknown) (unknown) (unknown) (no date) (unknown) (unknown) Assessment + Plan (units unknown) (unknown) (unknown) (no date) (unknown) (unknown) BID LET[place]IA Administration (units unknown) (unknown) (unknown) (no date) (unknown) (unknown) BUN 2 L < 2 L (units unknown) (unknown) (unknown) (no date) (unknown) (unknown) BUN 4 L (units unknown) (unknown) (unknown) (no date) (unknown) (unknown) BUN/Creatinine Ratio 3.6 L 3.8 L (units unknown) (unknown) (unknown) (no date) (unknown) (unknown) BUN/Creatinine Ratio 6.0 (units unknown) (unknown) (unknown) (no date) (unknown) (unknown) Baso # (Auto) 0 (units unknown) (unknown) (unknown) (no date) (unknown) (unknown) Baso # (Auto) (units unknown) (unknown) (unknown) (no date) (unknown) (unknown) Baso % (Auto) 0.4 (units unknown) (unknown) (unknown) (no date) (unknown) (unknown) Baso % (Auto) (units unknown) (unknown) (unknown) (no date) (unknown) (unknown) Blood Pressure 140/88 (units unknown) (unknown) (unknown) (no date) (unknown) (unknown) CONT LET[place]IA Administration (units unknown) (unknown) (unknown) (no date) (unknown) (unknown) Calcium 7.7 L (units unknown) (unknown) (unknown) (no date) (unknown) (unknown) Calcium 7.8 L 7.3 L (units unknown) (unknown) (unknown) (no date) (unknown) (unknown) Cannabis hyperemesis syndrome concurrent with and due to cannabis dependence (units unknown) (unknown) (unknown) (no date) (unknown) (unknown) Carbon Dioxide 12 L (units unknown) (unknown) (unknown) (no date) (unknown) (unknown) Carbon Dioxide 17 L 22 (units unknown) (unknown) (unknown) (no date) (unknown) (unknown) Ceftriaxone Sodium 1,000 mg/ 100 mls @ 200 mls/hr 08/13/22 07:00 08/15/22 (units unknown) (unknown) (unknown) (no date) (unknown) (unknown) Chief complaint: vomiting, back pain was seen earlier today (units unknown) (unknown) (unknown) (no date) (unknown) (unknown) Chloride 102 101 (units unknown) (unknown) (unknown) (no date) (unknown) (unknown) Chloride 97 L (units unknown) (unknown) (unknown) (no date) (unknown) (unknown) 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: Yes (units unknown) (unknown) (unknown) (no date) (unknown) (unknown) Consult details (units unknown) (unknown) (unknown) (no date) (unknown) (unknown) Creatinine 0.56 0.52 (units unknown) (unknown) (unknown) (no date) (unknown) (unknown) Creatinine 0.67 (units unknown) (unknown) (unknown) (no date) (unknown) (unknown) Current Medications (units unknown) (unknown) (unknown) (no date) (unknown) (unknown) Cyclic vomiting syndrome (units unknown) (unknown) (unknown) (no date) (unknown) (unknown) DAILY LETICIA Administration (units unknown) (unknown) (unknown) (no date) (unknown) (unknown) DKA (diabetic ketoacidoses) (units unknown) (unknown) (unknown) (no date) (unknown) (unknown) : 1995 Acct:[id number] (units unknown) (unknown) (unknown) (no date) (unknown) (unknown) Date of Service: 08/13/22 (units unknown) (unknown) (unknown) (no date) (unknown) (unknown) Dextrose 5%-0.9% Ns IV 125 mls/hr (units unknown) (unknown) (unknown) (no date) (unknown) (unknown) Dextrose/Sodium Chloride 1,000 mls @ 125 mls/hr 08/15/22 09:45 08/15/22 10:04 (units unknown) (unknown) (unknown) (no date) (unknown) (unknown) Diabetes mellitus, type I (units unknown) (unknown) (unknown) (no date) (unknown) (unknown) Eos # (Auto) 0 (units unknown) (unknown) (unknown) (no date) (unknown) (unknown) Eos # (Auto) (units unknown) (unknown) (unknown) (no date) (unknown) (unknown) Eos % (Auto) 0.0 L (units unknown) (unknown) (unknown) (no date) (unknown) (unknown) Eos % (Auto) (units unknown) (unknown) (unknown) (no date) (unknown) (unknown) Estimated GFR > 60 > 60 (units unknown) (unknown) (unknown) (no date) (unknown) (unknown) Estimated GFR > 60 (units unknown) (unknown) (unknown) (no date) (unknown) (unknown) Exam Narrative: (units unknown) (unknown) (unknown) (no date) (unknown) (unknown) Exam (units unknown) (unknown) (unknown) (no date) (unknown) (unknown) Family History (units unknown) (unknown) (unknown) (no date) (unknown) (unknown) Father Healthy adult (units unknown) (unknown) (unknown) (no date) (unknown) (unknown) Fever/Mild Pain (1-3) (units unknown) (unknown) (unknown) (no date) (unknown) (unknown) Gastroparesis (units unknown) (unknown) (unknown) (no date) (unknown) (unknown) Generic Name Dose Route Start Last Admin (units unknown) (unknown) (unknown) (no date) (unknown) (unknown) Glucose 159 H 138 H (units unknown) (unknown) (unknown) (no date) (unknown) (unknown) Glucose 339 H D (units unknown) (unknown) (unknown) (no date) (unknown) (unknown) Haloperidol 0.5 mg 08/14/22 14:57 08/14/22 23:27 (units unknown) (unknown) (unknown) (no date) (unknown) (unknown) Haloperidol 5 Mg/Ml Vial IV 0.5 mg (units unknown) (unknown) (unknown) (no date) (unknown) (unknown) Hct 29.3 L (units unknown) (unknown) (unknown) (no date) (unknown) (unknown) Hct (units unknown) (unknown) (unknown) (no date) (unknown) (unknown) Hgb 9.8 L (units unknown) (unknown) (unknown) (no date) (unknown) (unknown) Hgb (units unknown) (unknown) (unknown) (no date) (unknown) (unknown) History of Present Illness (units unknown) (unknown) (unknown) (no date) (unknown) (unknown) Home Medications (units unknown) (unknown) (unknown) (no date) (unknown) (unknown) Hydroxyzine Pamoate 25 Mg Capsule PO 25 mg (units unknown) (unknown) (unknown) (no date) (unknown) (unknown) Hydroxyzine Pamoate 25 mg 08/14/22 12:26 08/15/22 09:48 (units unknown) (unknown) (unknown) (no date) (unknown) (unknown) IF CAMERA ACTIVATED, patient seen via real-time interactive audiovisual (units unknown) (unknown) (unknown) (no date) (unknown) (unknown) INSULIN DRIP PREMIX 100 unit in 100 mls @ 6 mls/hr 08/15/22 09:45 08/15/22 (units unknown) (unknown) (unknown) (no date) (unknown) (unknown) Insulin Glargine 100 Unit/Ml 3ml Pen SUBCUT 20 unit (units unknown) (unknown) (unknown) (no date) (unknown) (unknown) Insulin Glargine 20 unit 08/14/22 21:00 08/15/22 08:05 (units unknown) (unknown) (unknown) (no date) (unknown) (unknown) Insulin Human Regula r 0 unit 08/15/22 08:00 08/15/22 08:07 (units unknown) (unknown) (unknown) (no date) (unknown) (unknown) Insulin Regular 100 Unit/Ml 3 Ml Vial SUBCUT 2 unit (units unknown) (unknown) (unknown) (no date) (unknown) (unknown) Insulin dependent diabetes mellitus (units unknown) (unknown) (unknown) (no date) (unknown) (unknown) [address] [address] (units unknown) (unknown) (unknown) (no date) (unknown) (unknown) Itching (units unknown) (unknown) (unknown) (no date) (unknown) (unknown) Laboratory Results - last 24 hr (units unknown) (unknown) (unknown) (no date) (unknown) (unknown) Labs (units unknown) (unknown) (unknown) (no date) (unknown) (unknown) Labs: (units unknown) (unknown) (unknown) (no date) (unknown) (unknown) Lactate 1.2 (units unknown) (unknown) (unknown) (no date) (unknown) (unknown) Lactate (units unknown) (unknown) (unknown) (no date) (unknown) (unknown) Lorazepam 0.5 mg 08/14/22 14:57 08/14/22 23:27 (units unknown) (unknown) (unknown) (no date) (unknown) (unknown) Lorazepam 1 Mg Table t PO 0.5 mg (units unknown) (unknown) (unknown) (no date) (unknown) (unknown) Lymph # (Auto) 700 L (units unknown) (unknown) (unknown) (no date) (unknown) (unknown) Lymph # (Auto) (units unknown) (unknown) (unknown) (no date) (unknown) (unknown) Lymph % (Auto) 13.4 L (units unknown) (unknown) (unknown) (no date) (unknown) (unknown) Lymph % (Auto) (units unknown) (unknown) (unknown) (no date) (unknown) (unknown) MCH 26.1 (units unknown) (unknown) (unknown) (no date) (unknown) (unknown) MCH (units unknown) (unknown) (unknown) (no date) (unknown) (unknown) MCHC 33.4 (units unknown) (unknown) (unknown) (no date) (unknown) (unknown) MCHC (units unknown) (unknown) (unknown) (no date) (unknown) (unknown) MCV 78.3 L (units unknown) (unknown) (unknown) (no date) (unknown) (unknown) MCV (units unknown) (unknown) (unknown) (no date) (unknown) (unknown) Medical History (Updated 08/12/22 @ 02:17 by Gracia Smith [facility]) (units unknown) (unknown) (unknown) (no date) (unknown) (unknown) Medications: (units unknown) (unknown) (unknown) (no date) (unknown) (unknown) Metoclopramide 10 Mg/2 Ml Inj IV 10 mg (units unknown) (unknown) (unknown) (no date) (unknown) (unknown) Metoclopramide HCl 1 0 mg 08/13/22 09:29 08/14/22 22:22 (units unknown) (unknown) (unknown) (no date) (unknown) (unknown) Migraine headache with aura (units unknown) (unknown) (unknown) (no date) (unknown) (unknown) O'Brien # (Auto) 500 (units unknown) (unknown) (unknown) (no date) (unknown) (unknown) O'Brien # (Auto) (units unknown) (unknown) (unknown) (no date) (unknown) (unknown) O'Brien % (Auto) 9.5 (units unknown) (unknown) (unknown) (no date) (unknown) (unknown) O'Brien % (Auto) (units unknown) (unknown) (unknown) (no date) (unknown) (unknown) Mother Hypertension (units unknown) (unknown) (unknown) (no date) (unknown) (unknown) Myopia (units unknown) (unknown) (unknown) (no date) (unknown) (unknown) Myxredlin Drip Premi x IV 6 units/hr (units unknown) (unknown) (unknown) (no date) (unknown) (unknown) Narrative (units unknown) (unknown) (unknown) (no date) (unknown) (unknown) Narrative: (units unknown) (unknown) (unknown) (no date) (unknown) (unknown) Nausea And Vomiting (units unknown) (unknown) (unknown) (no date) (unknown) (unknown) Nausea (units unknown) (unknown) (unknown) (no date) (unknown) (unknown) Neut # (Auto) 4100 (units unknown) (unknown) (unknown) (no date) (unknown) (unknown) Neut # (Auto) (units unknown) (unknown) (unknown) (no date) (unknown) (unknown) Neut % (Auto) 76.7 H (units unknown) (unknown) (unknown) (no date) (unknown) (unknown) Neut % (Auto) (units unknown) (unknown) (unknown) (no date) (unknown) (unknown) Normal Saline 0.9% I V 100 mls/hr (units unknown) (unknown) (unknown) (no date) (unknown) (unknown) Objective (units unknown) (unknown) (unknown) (no date) (unknown) (unknown) Ondansetron 4 Mg/2 M l Inj IV 4 mg (units unknown) (unknown) (unknown) (no date) (unknown) (unknown) Ondansetron HCl 4 mg 08/12/22 07:47 08/15/22 03:05 (units unknown) (unknown) (unknown) (no date) (unknown) (unknown) Other participants/roles: RN (units unknown) (unknown) (unknown) (no date) (unknown) (unknown) Oxycodone HCl 5 mg 08/14/22 12:49 08/15/22 10:25 (units unknown) (unknown) (unknown) (no date) (unknown) (unknown) Oxycodone Ir 5 Mg Tablet PO 5 mg (units unknown) (unknown) (unknown) (no date) (unknown) (unknown) Oxygen Delivery Method Room Air (units unknown) (unknown) (unknown) (no date) (unknown) (unknown) Oxygen Flow Rate 0 (units unknown) (unknown) (unknown) (no date) (unknown) (unknown) PFSH (units unknown) (unknown) (unknown) (no date) (unknown) (unknown) PO intake, continued intermittent vomiting. Per RN, patient drinking some (units unknown) (unknown) (unknown) (no date) (unknown) (unknown) POTASSIUM CHLORIDE I N WATER 10 meq in 100 mls @ 100 mls/hr 08/15/22 09:45 (units unknown) (unknown) (unknown) (no date) (unknown) (unknown) Pain, Moderate (4-6) (units unknown) (unknown) (unknown) (no date) (unknown) (unknown) Pancreatitis (units unknown) (unknown) (unknown) (no date) (unknown) (unknown) Pantoprazole 40 Mg Vial IV 20 mg (units unknown) (unknown) (unknown) (no date) (unknown) (unknown) Pantoprazole Sodium 20 mg 08/12/22 09:00 08/15/22 09:42 (units unknown) (unknown) (unknown) (no date) (unknown) (unknown) Patient Location: ICU (units unknown) (unknown) (unknown) (no date) (unknown) (unknown) Patient is a 27F wit h a PMH of Type 1 Diabetes c/b Gastroparesis + Peripheral (units unknown) (unknown) (unknown) (no date) (unknown) (unknown) Patient reports she feels tired and nauseated. (units unknown) (unknown) (unknown) (no date) (unknown) (unknown) Patient: Kaur Horton MR (units unknown) (unknown) (unknown) (no date) (unknown) (unknown) Plt Count 285 (units unknown) (unknown) (unknown) (no date) (unknown) (unknown) Plt Count (units unknown) (unknown) (unknown) (no date) (unknown) (unknown) Potassium 3.2 L (units unknown) (unknown) (unknown) (no date) (unknown) (unknown) Potassium 3.7 3.4 (units unknown) (unknown) (unknown) (no date) (unknown) (unknown) Potassium Cl 10 Meq/100 Ml Yana IV 08/15/22 13:44 100 mls/hr (units unknown) (unknown) (unknown) (no date) (unknown) (unknown) Promethazine 25 Mg Supp PA 25 mg (units unknown) (unknown) (unknown) (no date) (unknown) (unknown) Promethazine HCl 25 mg 08/12/22 00:54 08/13/22 15:23 (units unknown) (unknown) (unknown) (no date) (unknown) (unknown) Protocol (units unknown) (unknown) (unknown) (no date) (unknown) (unknown) Provider location (State): [place] (units unknown) (unknown) (unknown) (no date) (unknown) (unknown) Provider: Diana Miller (units unknown) (unknown) (unknown) (no date) (unknown) (unknown) Pulse Oximetry 100 (units unknown) (unknown) (unknown) (no date) (unknown) (unknown) Pulse Rate 80 (units unknown) (unknown) (unknown) (no date) (unknown) (unknown) Q1H LET[place]IA Administration (units unknown) (unknown) (unknown) (no date) (unknown) (unknown) Q24H LET[place]IA Administration (units unknown) (unknown) (unknown) (no date) (unknown) (unknown) Q4H PRN Administration (units unknown) (unknown) (unknown) (no date) (unknown) (unknown) Q4HR PRN Administration (units unknown) (unknown) (unknown) (no date) (unknown) (unknown) Q6H PRN Administration (units unknown) (unknown) (unknown) (no date) (unknown) (unknown) Q6HR PRN Administration (units unknown) (unknown) (unknown) (no date) (unknown) (unknown) RBC 3.74 L (units unknown) (unknown) (unknown) (no date) (unknown) (unknown) RBC (units unknown) (unknown) (unknown) (no date) (unknown) (unknown) RDW 16.3 H (units unknown) (unknown) (unknown) (no date) (unknown) (unknown) RDW (units unknown) (unknown) (unknown) (no date) (unknown) (unknown) Respiratory Rate 20 (units unknown) (unknown) (unknown) (no date) (unknown) (unknown) Signed By: (units unknown) (unknown) (unknown) (no date) (unknown) (unknown) Smoking Status: Current every day smoker (units unknown) (unknown) (unknown) (no date) (unknown) (unknown) Social History (units unknown) (unknown) (unknown) (no date) (unknown) (unknown) Sodium 130 L 129 L (units unknown) (unknown) (unknown) (no date) (unknown) (unknown) Sodium 130 L (units unknown) (unknown) (unknown) (no date) (unknown) (unknown) Sodium Chloride 1,00 0 mls @ 75 mls/hr 08/12/22 00:45 08/14/22 21:59 (units unknown) (unknown) (unknown) (no date) (unknown) (unknown) Sodium Chloride IV 08/16/22 06:59 200 mls/hr (units unknown) (unknown) (unknown) (no date) (unknown) (unknown) Status post appendectomy (units unknown) (unknown) (unknown) (no date) (unknown) (unknown) Surgical History (units unknown) (unknown) (unknown) (no date) (unknown) (unknown) TITRATE LETICIA 6 mls/hr (units unknown) (unknown) (unknown) (no date) (unknown) (unknown) 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 (units unknown) (unknown) (unknown) (no date) (unknown) (unknown) Temperature 97.4 F L (units unknown) (unknown) (unknown) (no date) (unknown) (unknown) Trade Name Dwayne PRN Reason Stop Dose Admin (units unknown) (unknown) (unknown) (no date) (unknown) (unknown) Urine Osmolality 440 (units unknown) (unknown) (unknown) (no date) (unknown) (unknown) Urine Osmolality (units unknown) (unknown) (unknown) (no date) (unknown) (unknown) VS are WNL. Awake an d conversant. (units unknown) (unknown) (unknown) (no date) (unknown) (unknown) Visit Medications (administered) (units unknown) (unknown) (unknown) (no date) (unknown) (unknown) Vital Signs (units unknown) (unknown) (unknown) (no date) (unknown) (unknown) WBC 5.3 (units unknown) (unknown) (unknown) (no date) (unknown) (unknown) WBC (units unknown) (unknown) (unknown) (no date) (unknown) (unknown) [Embedded Image Not Available] (units unknown) (unknown) (unknown) (no date) (unknown) (unknown) [History Confirmed 08/12/22] (units unknown) (unknown) (unknown) (no date) (unknown) (unknown) alcohol intake: never (units unknown) (unknown) (unknown) (no date) (unknown) (unknown) aspart) 56 unit SUBCUT DAILY 08/12/22 [History Confirmed 08/14/22] (units unknown) (unknown) (unknown) (no date) (unknown) (unknown) communication: Camer a activated (units unknown) (unknown) (unknown) (no date) (unknown) (unknown) days #20 tabs 04/23/23 [Rx Confirmed 08/12/22] (units unknown) (unknown) (unknown) (no date) (unknown) (unknown) gatoride prior to BG checks. (units unknown) (unknown) (unknown) (no date) (unknown) (unknown) household members: spouse (units unknown) (unknown) (unknown) (no date) (unknown) (unknown) insulin aspart U-100 100 unit/mL subcutaneous solution (Novolog U-100 Insulin (units unknown) (unknown) (unknown) (no date) (unknown) (unknown) insulin syringes (disposable) 1 mL #500 ea 08/04/20 [Rx Confirmed 08/14/22] (units unknown) (unknown) (unknown) (no date) (unknown) (unknown) metoclopramide HCl 5 mg/5 mL oral solution 5 mg PO Q8H PRN Nausea 08/12/22 (units unknown) (unknown) (unknown) (no date) (unknown) (unknown) nausea or vomiting (units unknown) (unknown) (unknown) (no date) (unknown) (unknown) neuropathy, marijuan a daily use, cannabis hyperemesis syndrome, cyclic vomiting (units unknown) (unknown) (unknown) (no date) (unknown) (unknown) patient with new AGA P to 21 and bicarb has fallen. BG in 100s-300s range. Poor (units unknown) (unknown) (unknown) (no date) (unknown) (unknown) patients DKA was thought to of resolved (AGAP closed) and patient was (units unknown) (unknown) (unknown) (no date) (unknown) (unknown) promethazine 12.5 mg tablet 25 mg PO BID PRN nausea and vomiting 08/12/22 (units unknown) (unknown) (unknown) (no date) (unknown) (unknown) promethazine 25 mg rectal suppository (Promethegan) 25 mg PA Q4-6H PRN Nausea (units unknown) (unknown) (unknown) (no date) (unknown) (unknown) sulfamethoxazole 800 mg-trimethoprim 160 mg tablet (Bactrim DS) 1 tab PO Q12H 10 (units unknown) (unknown) (unknown) (no date) (unknown) (unknown) syndrome, GERD, and migraines, who was admitted with DKA, UTI. Yesterday, (units unknown) (unknown) (unknown) (no date) (unknown) (unknown) tolerate PO. (units unknown) (unknown) (unknown) (no date) (unknown) (unknown) transitioned off insulin drip to long-acting. However, on this mornings labs (units unknown) (unknown) Result panel [id number] (unknown) (no date) (unknown) (unknown) (no value) (units unknown) (unknown) (unknown) (no date) (unknown) (unknown) # Chronic vomiting (units unknown) (unknown) (unknown) (no date) (unknown) (unknown) # DKA, Type 1 DM c/b gastroparesis, peripheral neuropathy (units unknown) (unknown) (unknown) (no date) (unknown) (unknown) # Hypokalemia (units unknown) (unknown) (unknown) (no date) (unknown) (unknown) # UTI (units unknown) (unknown) (unknown) (no date) (unknown) (unknown) #: [id number] (units unknown) (unknown) (unknown) (no date) (unknown) (unknown) (past 8 hours): (units unknown) (unknown) (unknown) (no date) (unknown) (unknown) - Continue Cetriaxon e to complete a course (units unknown) (unknown) (unknown) (no date) (unknown) (unknown) - Continue insulin drip and IVFs until AGAP has closed and patient is able to (units unknown) (unknown) (unknown) (no date) (unknown) (unknown) - PRN antiemetics. Would monitor daily QT given medication side effects (units unknown) (unknown) (unknown) (no date) (unknown) (unknown) - Q4H BMPs, replete aggressively. Daily Mg, Phos (units unknown) (unknown) (unknown) (no date) (unknown) (unknown) - Replete K, Mg now then start insulin drip (units unknown) (unknown) (unknown) (no date) (unknown) (unknown) - Restart insulin drip. Start D5NS given recent BG < 250. (units unknown) (unknown) (unknown) (no date) (unknown) (unknown) 08/12/22 08/14/22 08/14/22 (units unknown) (unknown) (unknown) (no date) (unknown) (unknown) 08/15/22 08/15/22 08/15/22 (units unknown) (unknown) (unknown) (no date) (unknown) (unknown) 08/15/22 04:24 (units unknown) (unknown) (unknown) (no date) (unknown) (unknown) 08/15/22 10:19 (units unknown) (unknown) (unknown) (no date) (unknown) (unknown) 08/15/22 1127 (units unknown) (unknown) (unknown) (no date) (unknown) (unknown) 08/15/22 (units unknown) (unknown) (unknown) (no date) (unknown) (unknown) 04:24 04:24 10:00 (units unknown) (unknown) (unknown) (no date) (unknown) (unknown) 06:10 04:11 11:55 (units unknown) (unknown) (unknown) (no date) (unknown) (unknown) 07:00 (units unknown) (unknown) (unknown) (no date) (unknown) (unknown) 07:40 (units unknown) (unknown) (unknown) (no date) (unknown) (unknown) 08:00 08/15/22 (units unknown) (unknown) (unknown) (no date) (unknown) (unknown) 10:12 (units unknown) (unknown) (unknown) (no date) (unknown) (unknown) ACHS LETICIA Administration (units unknown) (unknown) (unknown) (no date) (unknown) (unknown) Acetaminophen 325 Mg Tablet PO 650 mg (units unknown) (unknown) (unknown) (no date) (unknown) (unknown) Acetaminophen 650 mg 08/12/22 01:00 08/14/22 15:44 (units unknown) (unknown) (unknown) (no date) (unknown) (unknown) Administration (units unknown) (unknown) (unknown) (no date) (unknown) (unknown) Age/Sex: 27 / F (units unknown) (unknown) (unknown) (no date) (unknown) (unknown) And Vomiting 2 [History Confirmed 08/12/22] (units unknown) (unknown) (unknown) (no date) (unknown) (unknown) Anemia (units unknown) (unknown) (unknown) (no date) (unknown) (unknown) Anxiety (units unknown) (unknown) (unknown) (no date) (unknown) (unknown) Assessment + Plan narrative: (units unknown) (unknown) (unknown) (no date) (unknown) (unknown) Assessment + Plan (units unknown) (unknown) (unknown) (no date) (unknown) (unknown) BID LETICIA Administration (units unknown) (unknown) (unknown) (no date) (unknown) (unknown) BUN 2 L < 2 L (units unknown) (unknown) (unknown) (no date) (unknown) (unknown) BUN 4 L (units unknown) (unknown) (unknown) (no date) (unknown) (unknown) BUN/Creatinine Ratio 3.6 L 3.8 L (units unknown) (unknown) (unknown) (no date) (unknown) (unknown) BUN/Creatinine Ratio 6.0 (units unknown) (unknown) (unknown) (no date) (unknown) (unknown) Baso # (Auto) 0 (units unknown) (unknown) (unknown) (no date) (unknown) (unknown) Baso # (Auto) (units unknown) (unknown) (unknown) (no date) (unknown) (unknown) Baso % (Auto) 0.4 (units unknown) (unknown) (unknown) (no date) (unknown) (unknown) Baso % (Auto) (units unknown) (unknown) (unknown) (no date) (unknown) (unknown) Blood Pressure 140/88 (units unknown) (unknown) (unknown) (no date) (unknown) (unknown) CONT LETICIA Administration (units unknown) (unknown) (unknown) (no date) (unknown) (unknown) Calcium 7.7 L (units unknown) (unknown) (unknown) (no date) (unknown) (unknown) Calcium 7.8 L 7.3 L (units unknown) (unknown) (unknown) (no date) (unknown) (unknown) Cannabis hyperemesis syndrome concurrent with and due to cannabis dependence (units unknown) (unknown) (unknown) (no date) (unknown) (unknown) Carbon Dioxide 12 L (units unknown) (unknown) (unknown) (no date) (unknown) (unknown) Carbon Dioxide 17 L 22 (units unknown) (unknown) (unknown) (no date) (unknown) (unknown) Ceftriaxone Sodium 1,000 mg/ 100 mls @ 200 mls/hr 08/13/22 07:00 08/15/22 (units unknown) (unknown) (unknown) (no date) (unknown) (unknown) Chief complaint: vomiting, back pain was seen earlier today (units unknown) (unknown) (unknown) (no date) (unknown) (unknown) Chloride 102 101 (units unknown) (unknown) (unknown) (no date) (unknown) (unknown) Chloride 97 L (units unknown) (unknown) (unknown) (no date) (unknown) (unknown) 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: Yes (units unknown) (unknown) (unknown) (no date) (unknown) (unknown) Consult details (units unknown) (unknown) (unknown) (no date) (unknown) (unknown) Creatinine 0.56 0.52 (units unknown) (unknown) (unknown) (no date) (unknown) (unknown) Creatinine 0.67 (units unknown) (unknown) (unknown) (no date) (unknown) (unknown) Current Medications (units unknown) (unknown) (unknown) (no date) (unknown) (unknown) Cyclic vomiting syndrome (units unknown) (unknown) (unknown) (no date) (unknown) (unknown) DAILY LETICIA Administration (units unknown) (unknown) (unknown) (no date) (unknown) (unknown) DKA (diabetic ketoacidoses) (units unknown) (unknown) (unknown) (no date) (unknown) (unknown) : 1995 Acct:[id number] (units unknown) (unknown) (unknown) (no date) (unknown) (unknown) Date of Service: 08/13/22 (units unknown) (unknown) (unknown) (no date) (unknown) (unknown) Dextrose 5%-0.9% Ns IV 125 mls/hr (units unknown) (unknown) (unknown) (no date) (unknown) (unknown) Dextrose/Sodium Chloride 1,000 mls @ 125 mls/hr 08/15/22 09:45 08/15/22 10:04 (units unknown) (unknown) (unknown) (no date) (unknown) (unknown) Diabetes mellitus, type I (units unknown) (unknown) (unknown) (no date) (unknown) (unknown) Eos # (Auto) 0 (units unknown) (unknown) (unknown) (no date) (unknown) (unknown) Eos # (Auto) (units unknown) (unknown) (unknown) (no date) (unknown) (unknown) Eos % (Auto) 0.0 L (units unknown) (unknown) (unknown) (no date) (unknown) (unknown) Eos % (Auto) (units unknown) (unknown) (unknown) (no date) (unknown) (unknown) Estimated GFR > 60 > 60 (units unknown) (unknown) (unknown) (no date) (unknown) (unknown) Estimated GFR > 60 (units unknown) (unknown) (unknown) (no date) (unknown) (unknown) Exam Narrative: (units unknown) (unknown) (unknown) (no date) (unknown) (unknown) Exam (units unknown) (unknown) (unknown) (no date) (unknown) (unknown) Family History (units unknown) (unknown) (unknown) (no date) (unknown) (unknown) Father Healthy adult (units unknown) (unknown) (unknown) (no date) (unknown) (unknown) Fever/Mild Pain (1-3) (units unknown) (unknown) (unknown) (no date) (unknown) (unknown) Gastroparesis (units unknown) (unknown) (unknown) (no date) (unknown) (unknown) Generic Name Dose Route Start Last Admin (units unknown) (unknown) (unknown) (no date) (unknown) (unknown) Glucose 159 H 138 H (units unknown) (unknown) (unknown) (no date) (unknown) (unknown) Glucose 339 H D (units unknown) (unknown) (unknown) (no date) (unknown) (unknown) Haloperidol 0.5 mg 08/14/22 14:57 08/14/22 23:27 (units unknown) (unknown) (unknown) (no date) (unknown) (unknown) Haloperidol 5 Mg/Ml Vial IV 0.5 mg (units unknown) (unknown) (unknown) (no date) (unknown) (unknown) Hct 29.3 L (units unknown) (unknown) (unknown) (no date) (unknown) (unknown) Hct (units unknown) (unknown) (unknown) (no date) (unknown) (unknown) Hgb 9.8 L (units unknown) (unknown) (unknown) (no date) (unknown) (unknown) Hgb (units unknown) (unknown) (unknown) (no date) (unknown) (unknown) History of Present Illness (units unknown) (unknown) (unknown) (no date) (unknown) (unknown) Home Medications (units unknown) (unknown) (unknown) (no date) (unknown) (unknown) Hydroxyzine Pamoate 25 Mg Capsule PO 25 mg (units unknown) (unknown) (unknown) (no date) (unknown) (unknown) Hydroxyzine Pamoate 25 mg 08/14/22 12:26 08/15/22 09:48 (units unknown) (unknown) (unknown) (no date) (unknown) (unknown) IF CAMERA ACTIVATED, patient seen via real-time interactive audiovisual (units unknown) (unknown) (unknown) (no date) (unknown) (unknown) INSULIN DRIP PREMIX 100 unit in 100 mls @ 6 mls/hr 08/15/22 09:45 08/15/22 (units unknown) (unknown) (unknown) (no date) (unknown) (unknown) Insulin Glargine 100 Unit/Ml 3ml Pen SUBCUT 20 unit (units unknown) (unknown) (unknown) (no date) (unknown) (unknown) Insulin Glargine 20 unit 08/14/22 21:00 08/15/22 08:05 (units unknown) (unknown) (unknown) (no date) (unknown) (unknown) Insulin Human Regula r 0 unit 08/15/22 08:00 08/15/22 08:07 (units unknown) (unknown) (unknown) (no date) (unknown) (unknown) Insulin Regular 100 Unit/Ml 3 Ml Vial SUBCUT 2 unit (units unknown) (unknown) (unknown) (no date) (unknown) (unknown) Insulin dependent diabetes mellitus (units unknown) (unknown) (unknown) (no date) (unknown) (unknown) [address] [address] (units unknown) (unknown) (unknown) (no date) (unknown) (unknown) Itching (units unknown) (unknown) (unknown) (no date) (unknown) (unknown) Laboratory Results - last 24 hr (units unknown) (unknown) (unknown) (no date) (unknown) (unknown) Labs (units unknown) (unknown) (unknown) (no date) (unknown) (unknown) Labs: (units unknown) (unknown) (unknown) (no date) (unknown) (unknown) Lactate 1.2 (units unknown) (unknown) (unknown) (no date) (unknown) (unknown) Lactate (units unknown) (unknown) (unknown) (no date) (unknown) (unknown) Lorazepam 0.5 mg 08/14/22 14:57 08/14/22 23:27 (units unknown) (unknown) (unknown) (no date) (unknown) (unknown) Lorazepam 1 Mg Table t PO 0.5 mg (units unknown) (unknown) (unknown) (no date) (unknown) (unknown) Lymph # (Auto) 700 L (units unknown) (unknown) (unknown) (no date) (unknown) (unknown) Lymph # (Auto) (units unknown) (unknown) (unknown) (no date) (unknown) (unknown) Lymph % (Auto) 13.4 L (units unknown) (unknown) (unknown) (no date) (unknown) (unknown) Lymph % (Auto) (units unknown) (unknown) (unknown) (no date) (unknown) (unknown) MCH 26.1 (units unknown) (unknown) (unknown) (no date) (unknown) (unknown) MCH (units unknown) (unknown) (unknown) (no date) (unknown) (unknown) MCHC 33.4 (units unknown) (unknown) (unknown) (no date) (unknown) (unknown) MCHC (units unknown) (unknown) (unknown) (no date) (unknown) (unknown) MCV 78.3 L (units unknown) (unknown) (unknown) (no date) (unknown) (unknown) MCV (units unknown) (unknown) (unknown) (no date) (unknown) (unknown) Medical History (Updated 08/12/22 @ 02:17 by Gracia Smith [facility]) (units unknown) (unknown) (unknown) (no date) (unknown) (unknown) Medications: (units unknown) (unknown) (unknown) (no date) (unknown) (unknown) Metoclopramide 10 Mg/2 Ml Inj IV 10 mg (units unknown) (unknown) (unknown) (no date) (unknown) (unknown) Metoclopramide HCl 1 0 mg 08/13/22 09:29 08/14/22 22:22 (units unknown) (unknown) (unknown) (no date) (unknown) (unknown) Migraine headache with aura (units unknown) (unknown) (unknown) (no date) (unknown) (unknown) O'Brien # (Auto) 500 (units unknown) (unknown) (unknown) (no date) (unknown) (unknown) O'Brien # (Auto) (units unknown) (unknown) (unknown) (no date) (unknown) (unknown) O'Brien % (Auto) 9.5 (units unknown) (unknown) (unknown) (no date) (unknown) (unknown) O'Brien % (Auto) (units unknown) (unknown) (unknown) (no date) (unknown) (unknown) Mother Hypertension (units unknown) (unknown) (unknown) (no date) (unknown) (unknown) Myopia (units unknown) (unknown) (unknown) (no date) (unknown) (unknown) Myxredlin Drip Premi x IV 6 units/hr (units unknown) (unknown) (unknown) (no date) (unknown) (unknown) Narrative (units unknown) (unknown) (unknown) (no date) (unknown) (unknown) Narrative: (units unknown) (unknown) (unknown) (no date) (unknown) (unknown) Nausea And Vomiting (units unknown) (unknown) (unknown) (no date) (unknown) (unknown) Nausea (units unknown) (unknown) (unknown) (no date) (unknown) (unknown) Neut # (Auto) 4100 (units unknown) (unknown) (unknown) (no date) (unknown) (unknown) Neut # (Auto) (units unknown) (unknown) (unknown) (no date) (unknown) (unknown) Neut % (Auto) 76.7 H (units unknown) (unknown) (unknown) (no date) (unknown) (unknown) Neut % (Auto) (units unknown) (unknown) (unknown) (no date) (unknown) (unknown) Normal Saline 0.9% I V 100 mls/hr (units unknown) (unknown) (unknown) (no date) (unknown) (unknown) Objective (units unknown) (unknown) (unknown) (no date) (unknown) (unknown) Ondansetron 4 Mg/2 M l Inj IV 4 mg (units unknown) (unknown) (unknown) (no date) (unknown) (unknown) Ondansetron HCl 4 mg 08/12/22 07:47 08/15/22 03:05 (units unknown) (unknown) (unknown) (no date) (unknown) (unknown) Other participants/roles: RN (units unknown) (unknown) (unknown) (no date) (unknown) (unknown) Oxycodone HCl 5 mg 08/14/22 12:49 08/15/22 10:25 (units unknown) (unknown) (unknown) (no date) (unknown) (unknown) Oxycodone Ir 5 Mg Tablet PO 5 mg (units unknown) (unknown) (unknown) (no date) (unknown) (unknown) Oxygen Delivery Method Room Air (units unknown) (unknown) (unknown) (no date) (unknown) (unknown) Oxygen Flow Rate 0 (units unknown) (unknown) (unknown) (no date) (unknown) (unknown) PFSH (units unknown) (unknown) (unknown) (no date) (unknown) (unknown) PO intake, continued intermittent vomiting. Per RN, patient drinking some (units unknown) (unknown) (unknown) (no date) (unknown) (unknown) POTASSIUM CHLORIDE I N WATER 10 meq in 100 mls @ 100 mls/hr 08/15/22 09:45 (units unknown) (unknown) (unknown) (no date) (unknown) (unknown) Pain, Moderate (4-6) (units unknown) (unknown) (unknown) (no date) (unknown) (unknown) Pancreatitis (units unknown) (unknown) (unknown) (no date) (unknown) (unknown) Pantoprazole 40 Mg Vial IV 20 mg (units unknown) (unknown) (unknown) (no date) (unknown) (unknown) Pantoprazole Sodium 20 mg 08/12/22 09:00 08/15/22 09:42 (units unknown) (unknown) (unknown) (no date) (unknown) (unknown) Patient Location: ICU (units unknown) (unknown) (unknown) (no date) (unknown) (unknown) Patient is a 27F wit h a PMH of Type 1 Diabetes c/b Gastroparesis + Peripheral (units unknown) (unknown) (unknown) (no date) (unknown) (unknown) Patient reports she feels tired and nauseated. (units unknown) (unknown) (unknown) (no date) (unknown) (unknown) Patient: Kaur Horton MR (units unknown) (unknown) (unknown) (no date) (unknown) (unknown) Plt Count 285 (units unknown) (unknown) (unknown) (no date) (unknown) (unknown) Plt Count (units unknown) (unknown) (unknown) (no date) (unknown) (unknown) Potassium 3.2 L (units unknown) (unknown) (unknown) (no date) (unknown) (unknown) Potassium 3.7 3.4 (units unknown) (unknown) (unknown) (no date) (unknown) (unknown) Potassium Cl 10 Meq/100 Ml Yana IV 08/15/22 13:44 100 mls/hr (units unknown) (unknown) (unknown) (no date) (unknown) (unknown) Promethazine 25 Mg Supp PA 25 mg (units unknown) (unknown) (unknown) (no date) (unknown) (unknown) Promethazine HCl 25 mg 08/12/22 00:54 08/13/22 15:23 (units unknown) (unknown) (unknown) (no date) (unknown) (unknown) Protocol (units unknown) (unknown) (unknown) (no date) (unknown) (unknown) Provider location (State): [place] (units unknown) (unknown) (unknown) (no date) (unknown) (unknown) Provider: Diana Miller (units unknown) (unknown) (unknown) (no date) (unknown) (unknown) Pulse Oximetry 100 (units unknown) (unknown) (unknown) (no date) (unknown) (unknown) Pulse Rate 80 (units unknown) (unknown) (unknown) (no date) (unknown) (unknown) Q1H LETICIA Administration (units unknown) (unknown) (unknown) (no date) (unknown) (unknown) Q24H LETICIA Administration (units unknown) (unknown) (unknown) (no date) (unknown) (unknown) Q4H PRN Administration (units unknown) (unknown) (unknown) (no date) (unknown) (unknown) Q4HR PRN Administration (units unknown) (unknown) (unknown) (no date) (unknown) (unknown) Q6H PRN Administration (units unknown) (unknown) (unknown) (no date) (unknown) (unknown) Q6HR PRN Administration (units unknown) (unknown) (unknown) (no date) (unknown) (unknown) RBC 3.74 L (units unknown) (unknown) (unknown) (no date) (unknown) (unknown) RBC (units unknown) (unknown) (unknown) (no date) (unknown) (unknown) RDW 16.3 H (units unknown) (unknown) (unknown) (no date) (unknown) (unknown) RDW (units unknown) (unknown) (unknown) (no date) (unknown) (unknown) Respiratory Rate 20 (units unknown) (unknown) (unknown) (no date) (unknown) (unknown) Signed By:<Electronically signed by Diana Miller> (units unknown) (unknown) (unknown) (no date) (unknown) (unknown) Smoking Status: Current every day smoker (units unknown) (unknown) (unknown) (no date) (unknown) (unknown) Social History (units unknown) (unknown) (unknown) (no date) (unknown) (unknown) Sodium 130 L 129 L (units unknown) (unknown) (unknown) (no date) (unknown) (unknown) Sodium 130 L (units unknown) (unknown) (unknown) (no date) (unknown) (unknown) Sodium Chloride 1,00 0 mls @ 75 mls/hr 08/12/22 00:45 08/14/22 21:59 (units unknown) (unknown) (unknown) (no date) (unknown) (unknown) Sodium Chloride IV 08/16/22 06:59 200 mls/hr (units unknown) (unknown) (unknown) (no date) (unknown) (unknown) Status post appendectomy (units unknown) (unknown) (unknown) (no date) (unknown) (unknown) Surgical History (units unknown) (unknown) (unknown) (no date) (unknown) (unknown) TITRATE LETICIA 6 mls/hr (units unknown) (unknown) (unknown) (no date) (unknown) (unknown) 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 (units unknown) (unknown) (unknown) (no date) (unknown) (unknown) Temperature 97.4 F L (units unknown) (unknown) (unknown) (no date) (unknown) (unknown) Trade Name Dwayne PRN Reason Stop Dose Admin (units unknown) (unknown) (unknown) (no date) (unknown) (unknown) Urine Osmolality 440 (units unknown) (unknown) (unknown) (no date) (unknown) (unknown) Urine Osmolality (units unknown) (unknown) (unknown) (no date) (unknown) (unknown) VS are WNL. Awake an d conversant. (units unknown) (unknown) (unknown) (no date) (unknown) (unknown) Visit Medications (administered) (units unknown) (unknown) (unknown) (no date) (unknown) (unknown) Vital Signs (units unknown) (unknown) (unknown) (no date) (unknown) (unknown) WBC 5.3 (units unknown) (unknown) (unknown) (no date) (unknown) (unknown) WBC (units unknown) (unknown) (unknown) (no date) (unknown) (unknown) [Embedded Image Not Available] (units unknown) (unknown) (unknown) (no date) (unknown) (unknown) [History Confirmed 08/12/22] (units unknown) (unknown) (unknown) (no date) (unknown) (unknown) alcohol intake: never (units unknown) (unknown) (unknown) (no date) (unknown) (unknown) aspart) 56 unit SUBCUT DAILY 08/12/22 [History Confirmed 08/14/22] (units unknown) (unknown) (unknown) (no date) (unknown) (unknown) communication: Camer a activated (units unknown) (unknown) (unknown) (no date) (unknown) (unknown) days #20 tabs 08/11/22 [Rx Confirmed 08/12/22] (units unknown) (unknown) (unknown) (no date) (unknown) (unknown) gatoride prior to BG checks. (units unknown) (unknown) (unknown) (no date) (unknown) (unknown) household members: spouse (units unknown) (unknown) (unknown) (no date) (unknown) (unknown) insulin aspart U-100 100 unit/mL subcutaneous solution (Novolog U-100 Insulin (units unknown) (unknown) (unknown) (no date) (unknown) (unknown) insulin syringes (disposable) 1 mL #500 ea 08/04/20 [Rx Confirmed 08/14/22] (units unknown) (unknown) (unknown) (no date) (unknown) (unknown) metoclopramide HCl 5 mg/5 mL oral solution 5 mg PO Q8H PRN Nausea 08/12/22 (units unknown) (unknown) (unknown) (no date) (unknown) (unknown) nausea or vomiting (units unknown) (unknown) (unknown) (no date) (unknown) (unknown) neuropathy, marijuan a daily use, cannabis hyperemesis syndrome, cyclic vomiting (units unknown) (unknown) (unknown) (no date) (unknown) (unknown) patient with new AGA P to 21 and bicarb has fallen. BG in 100s-300s range. Poor (units unknown) (unknown) (unknown) (no date) (unknown) (unknown) patients DKA was thought to of resolved (AGAP closed) and patient was (units unknown) (unknown) (unknown) (no date) (unknown) (unknown) promethazine 12.5 mg tablet 25 mg PO BID PRN nausea and vomiting 08/12/22 (units unknown) (unknown) (unknown) (no date) (unknown) (unknown) promethazine 25 mg rectal suppository (Promethegan) 25 mg PA Q4-6H PRN Nausea (units unknown) (unknown) (unknown) (no date) (unknown) (unknown) sulfamethoxazole 800 mg-trimethoprim 160 mg tablet (Bactrim DS) 1 tab PO Q12H 10 (units unknown) (unknown) (unknown) (no date) (unknown) (unknown) syndrome, GERD, and migraines, who was admitted with DKA, UTI. Yesterday, (units unknown) (unknown) (unknown) (no date) (unknown) (unknown) tolerate PO. (units unknown) (unknown) (unknown) (no date) (unknown) (unknown) transitioned off insulin drip to long-acting. However, on this mornings labs (units unknown) (unknown) Result panel 1677 (unknown) (no date) (unknown) (unknown) > 60 ml/min (unknown) (unknown) (no date) (unknown) (unknown) > 60 ml/min (unknown) (unknown) (no date) (unknown) (unknown) 0.52 mg/dl (unknown) (unknown) (no date) (unknown) (unknown) 1.0 mg/dl (unknown) (unknown) (no date) (unknown) (unknown) 1.0 mg/dl (unknown) (unknown) (no date) (unknown) (unknown) 1.7 mg/dl (unknown) (unknown) (no date) (unknown) (unknown) 134 mmol/l (unknown) (unknown) (no date) (unknown) (unknown) 2 mg/dl (unknown) (unknown) (no date) (unknown) (unknown) 27 mmol/l (unknown) (unknown) (no date) (unknown) (unknown) 3.0 mmol/l (unknown) (unknown) (no date) (unknown) (unknown) 3.8 (units unknown) (unknown) (unknown) (no date) (unknown) (unknown) 7.8 mg/dl (unknown) (unknown) (no date) (unknown) (unknown) 95 mg/dl (unknown) (unknown) (no date) (unknown) (unknown) 95 mg/dl (unknown) (unknown) (no date) (unknown) (unknown) 99 mmol/l (unknown) Result panel 1678 (unknown) (no date) (unknown) (unknown) 1.0 mg/dl (unknown) (unknown) (no date) (unknown) (unknown) 1.0 mg/dl (unknown) (unknown) (no date) (unknown) (unknown) 1.7 mg/dl (unknown) Result panel 1679 (unknown) (no date) (unknown) (unknown) (no value) (units unknown) (unknown) (unknown) (no date) (unknown) (unknown) #: [id number] (units unknown) (unknown) (unknown) (no date) (unknown) (unknown) (past 8 hours): (units unknown) (unknown) (unknown) (no date) (unknown) (unknown) -A1c 7.6% (units unknown) (unknown) (unknown) (no date) (unknown) (unknown) -BMI 22.8 (units unknown) (unknown) (unknown) (no date) (unknown) (unknown) -BMP on 08/13 with bicarb 9, ketones positive and pH 7.2 so started on insulin (units unknown) (unknown) (unknown) (no date) (unknown) (unknown) -BNP q.4 hours (units unknown) (unknown) (unknown) (no date) (unknown) (unknown) -Haldol 0.5 IV PRN i n addition to Phenergan suppositories, IV Zofran and reglan (units unknown) (unknown) (unknown) (no date) (unknown) (unknown) -admitted under diabetic protocols, sliding scale for coverage, patient normally (units unknown) (unknown) (unknown) (no date) (unknown) (unknown) -antiemetics, pain control (units unknown) (unknown) (unknown) (no date) (unknown) (unknown) -cultures growing E. coli so changed to rocephin 1g daily x3 days (units unknown) (unknown) (unknown) (no date) (unknown) (unknown) -dietary consult ordered to evaluate and implement steps to improve caloric (units unknown) (unknown) (unknown) (no date) (unknown) (unknown) -initiated for complicated sepsis UTI meropenem and vancomycin (per up-to date) (units unknown) (unknown) (unknown) (no date) (unknown) (unknown) -last A1c 01/31/2022 6.3 -reviewed endocrinology notes (units unknown) (unknown) (unknown) (no date) (unknown) (unknown) -monitor QT (units unknown) (unknown) (unknown) (no date) (unknown) (unknown) -now back on insulin drip to close gap, will wean off when patient tolerating po (units unknown) (unknown) (unknown) (no date) (unknown) (unknown) -patient's malnutrition places them at high risk for medical and surgical (units unknown) (unknown) (unknown) (no date) (unknown) (unknown) -potassium 3.3 on admission (units unknown) (unknown) (unknown) (no date) (unknown) (unknown) -potassium goal: 4-5 (units unknown) (unknown) (unknown) (no date) (unknown) (unknown) -still having troubl e with NV (units unknown) (unknown) (unknown) (no date) (unknown) (unknown) -transitioned to lantus 20u BID, but gap went back up to 21 (units unknown) (unknown) (unknown) (no date) (unknown) (unknown) -weaned off insulin drip on 08/14 after gap closed to 6 (units unknown) (unknown) (unknown) (no date) (unknown) (unknown) 08/12/22 08/15/22 08/15/22 (units unknown) (unknown) (unknown) (no date) (unknown) (unknown) 08/15/22 08/15/22 08/15/22 (units unknown) (unknown) (unknown) (no date) (unknown) (unknown) 08/15/22 04:24 (units unknown) (unknown) (unknown) (no date) (unknown) (unknown) 08/15/22 11:45 (units unknown) (unknown) (unknown) (no date) (unknown) (unknown) 08/15/22 1436 (units unknown) (unknown) (unknown) (no date) (unknown) (unknown) 08/15/22 (units unknown) (unknown) (unknown) (no date) (unknown) (unknown) 06:10 04:24 04:24 (units unknown) (unknown) (unknown) (no date) (unknown) (unknown) 07:00 (units unknown) (unknown) (unknown) (no date) (unknown) (unknown) 08:00 08/15/22 (units unknown) (unknown) (unknown) (no date) (unknown) (unknown) 1. Lactic acidosis sepsis (metabolic) without septic shock due to (units unknown) (unknown) (unknown) (no date) (unknown) (unknown) 10:00 11:45 11:45 (units unknown) (unknown) (unknown) (no date) (unknown) (unknown) 2. DKA 2/2 insulin-dependent type 1 diabetic with peripheral neuropathy and (units unknown) (unknown) (unknown) (no date) (unknown) (unknown) 3. Hypokalemia, acute, secondary to volume loss N/V, present on admission (units unknown) (unknown) (unknown) (no date) (unknown) (unknown) 4. Malnutrition, mild, acute on chronic, present on admission (units unknown) (unknown) (unknown) (no date) (unknown) (unknown) Abdomen:? Soft diffuse generalized minimal tenderness, negative for (units unknown) (unknown) (unknown) (no date) (unknown) (unknown) Age/Sex: 27 / F (units unknown) (unknown) (unknown) (no date) (unknown) (unknown) Anemia (units unknown) (unknown) (unknown) (no date) (unknown) (unknown) Assessment + Plan narrative: (units unknown) (unknown) (unknown) (no date) (unknown) (unknown) Assessment + Plan (units unknown) (unknown) (unknown) (no date) (unknown) (unknown) BUN 2 L (units unknown) (unknown) (unknown) (no date) (unknown) (unknown) BUN 4 L (units unknown) (unknown) (unknown) (no date) (unknown) (unknown) BUN/Creatinine Ratio 3.8 L (units unknown) (unknown) (unknown) (no date) (unknown) (unknown) BUN/Creatinine Ratio 6.0 (units unknown) (unknown) (unknown) (no date) (unknown) (unknown) Baso # (Auto) 0 (units unknown) (unknown) (unknown) (no date) (unknown) (unknown) Baso # (Auto) (units unknown) (unknown) (unknown) (no date) (unknown) (unknown) Baso % (Auto) 0.4 (units unknown) (unknown) (unknown) (no date) (unknown) (unknown) Baso % (Auto) (units unknown) (unknown) (unknown) (no date) (unknown) (unknown) Blood Pressure 140/88 (units unknown) (unknown) (unknown) (no date) (unknown) (unknown) COVID PCR:Ordered (units unknown) (unknown) (unknown) (no date) (unknown) (unknown) Calcium 7.7 L (units unknown) (unknown) (unknown) (no date) (unknown) (unknown) Calcium 7.8 L (units unknown) (unknown) (unknown) (no date) (unknown) (unknown) Cannabis hyperemesis syndrome concurrent with and due to cannabis dependence (units unknown) (unknown) (unknown) (no date) (unknown) (unknown) Carbon Dioxide 12 L (units unknown) (unknown) (unknown) (no date) (unknown) (unknown) Carbon Dioxide 27 (units unknown) (unknown) (unknown) (no date) (unknown) (unknown) Cardio:? regular rat e and rhythm with no extra sounds or murmurs. (units unknown) (unknown) (unknown) (no date) (unknown) (unknown) Chest:? Breathing without nasal flaring, retractions, or labored, no tachypneic (units unknown) (unknown) (unknown) (no date) (unknown) (unknown) Chloride 97 L (units unknown) (unknown) (unknown) (no date) (unknown) (unknown) Chloride 99 (units unknown) (unknown) (unknown) (no date) (unknown) (unknown) Code status:? Full code (units unknown) (unknown) (unknown) (no date) (unknown) (unknown) Creatinine 0.52 (units unknown) (unknown) (unknown) (no date) (unknown) (unknown) Creatinine 0.67 (units unknown) (unknown) (unknown) (no date) (unknown) (unknown) Cyclic vomiting syndrome (units unknown) (unknown) (unknown) (no date) (unknown) (unknown) DKA (diabetic ketoacidoses) (units unknown) (unknown) (unknown) (no date) (unknown) (unknown) : 1995 Acct:[id number] (units unknown) (unknown) (unknown) (no date) (unknown) (unknown) DVT/VTE prophylaxis: ? SCDs, refusing lovenox (units unknown) (unknown) (unknown) (no date) (unknown) (unknown) Date of Service: 08/13/22 (units unknown) (unknown) (unknown) (no date) (unknown) (unknown) Diabetes mellitus, type I (units unknown) (unknown) (unknown) (no date) (unknown) (unknown) Dispo: Home pending improvement in po intake. (units unknown) (unknown) (unknown) (no date) (unknown) (unknown) Eos # (Auto) 0 (units unknown) (unknown) (unknown) (no date) (unknown) (unknown) Eos # (Auto) (units unknown) (unknown) (unknown) (no date) (unknown) (unknown) Eos % (Auto) 0.0 L (units unknown) (unknown) (unknown) (no date) (unknown) (unknown) Eos % (Auto) (units unknown) (unknown) (unknown) (no date) (unknown) (unknown) Estimated GFR > 60 (units unknown) (unknown) (unknown) (no date) (unknown) (unknown) Exam Narrative: (units unknown) (unknown) (unknown) (no date) (unknown) (unknown) Exam (units unknown) (unknown) (unknown) (no date) (unknown) (unknown) Family History (units unknown) (unknown) (unknown) (no date) (unknown) (unknown) Father Healthy adult (units unknown) (unknown) (unknown) (no date) (unknown) (unknown) Gastroparesis (units unknown) (unknown) (unknown) (no date) (unknown) (unknown) General:? Patient is a well-developed, well-nourished in no acute medical (units unknown) (unknown) (unknown) (no date) (unknown) (unknown) Glucose 339 H D (units unknown) (unknown) (unknown) (no date) (unknown) (unknown) Glucose 95 D (units unknown) (unknown) (unknown) (no date) (unknown) (unknown) HEENT:? Normocephalic, atraumatic, extraocular muscles intact. Trachea is (units unknown) (unknown) (unknown) (no date) (unknown) (unknown) Hct 29.3 L (units unknown) (unknown) (unknown) (no date) (unknown) (unknown) Hct (units unknown) (unknown) (unknown) (no date) (unknown) (unknown) Hgb 9.8 L (units unknown) (unknown) (unknown) (no date) (unknown) (unknown) Hgb (units unknown) (unknown) (unknown) (no date) (unknown) (unknown) I spent a total of 3 5 minutes of critical care time on this patient's care (units unknown) (unknown) (unknown) (no date) (unknown) (unknown) Insulin dependent diabetes mellitus (units unknown) (unknown) (unknown) (no date) (unknown) (unknown) Interval history: (units unknown) (unknown) (unknown) (no date) (unknown) (unknown) [address] [address] (units unknown) (unknown) (unknown) (no date) (unknown) (unknown) Laboratory Results - last 24 hr (units unknown) (unknown) (unknown) (no date) (unknown) (unknown) Labs (units unknown) (unknown) (unknown) (no date) (unknown) (unknown) Labs: (units unknown) (unknown) (unknown) (no date) (unknown) (unknown) Lactate 1.2 (units unknown) (unknown) (unknown) (no date) (unknown) (unknown) Lactate (units unknown) (unknown) (unknown) (no date) (unknown) (unknown) Lungs:? Auscultation of all lung hendricks are clear without adventitious sounds, (units unknown) (unknown) (unknown) (no date) (unknown) (unknown) Lymph # (Auto) 700 L (units unknown) (unknown) (unknown) (no date) (unknown) (unknown) Lymph # (Auto) (units unknown) (unknown) (unknown) (no date) (unknown) (unknown) Lymph % (Auto) 13.4 L (units unknown) (unknown) (unknown) (no date) (unknown) (unknown) Lymph % (Auto) (units unknown) (unknown) (unknown) (no date) (unknown) (unknown) MCH 26.1 (units unknown) (unknown) (unknown) (no date) (unknown) (unknown) MCH (units unknown) (unknown) (unknown) (no date) (unknown) (unknown) MCHC 33.4 (units unknown) (unknown) (unknown) (no date) (unknown) (unknown) MCHC (units unknown) (unknown) (unknown) (no date) (unknown) (unknown) MCV 78.3 L (units unknown) (unknown) (unknown) (no date) (unknown) (unknown) MCV (units unknown) (unknown) (unknown) (no date) (unknown) (unknown) Magnesium 1.7 (units unknown) (unknown) (unknown) (no date) (unknown) (unknown) Magnesium (units unknown) (unknown) (unknown) (no date) (unknown) (unknown) Medical History (Updated 08/12/22 @ 02:17 [facility] (units unknown) (unknown) (unknown) (no date) (unknown) (unknown) Migraine headache with aura (units unknown) (unknown) (unknown) (no date) (unknown) (unknown) O'Brien # (Auto) 500 (units unknown) (unknown) (unknown) (no date) (unknown) (unknown) O'Brien # (Auto) (units unknown) (unknown) (unknown) (no date) (unknown) (unknown) O'Brien % (Auto) 9.5 (units unknown) (unknown) (unknown) (no date) (unknown) (unknown) O'Brien % (Auto) (units unknown) (unknown) (unknown) (no date) (unknown) (unknown) Mother Hypertension (units unknown) (unknown) (unknown) (no date) (unknown) (unknown) Musculoskeletal:? Muscle strength and tone are equal within normal limits, no (units unknown) (unknown) (unknown) (no date) (unknown) (unknown) Myopia (units unknown) (unknown) (unknown) (no date) (unknown) (unknown) Narrative (units unknown) (unknown) (unknown) (no date) (unknown) (unknown) Neuro:? Alert and orientated x3, strength is +5/5 in all extremities, sensation (units unknown) (unknown) (unknown) (no date) (unknown) (unknown) Neut # (Auto) 4100 (units unknown) (unknown) (unknown) (no date) (unknown) (unknown) Neut # (Auto) (units unknown) (unknown) (unknown) (no date) (unknown) (unknown) Neut % (Auto) 76.7 H (units unknown) (unknown) (unknown) (no date) (unknown) (unknown) Neut % (Auto) (units unknown) (unknown) (unknown) (no date) (unknown) (unknown) Objective (units unknown) (unknown) (unknown) (no date) (unknown) (unknown) Oxygen Delivery Method Room Air (units unknown) (unknown) (unknown) (no date) (unknown) (unknown) Oxygen Flow Rate 0 (units unknown) (unknown) (unknown) (no date) (unknown) (unknown) PFSH (units unknown) (unknown) (unknown) (no date) (unknown) (unknown) Pancreatitis (units unknown) (unknown) (unknown) (no date) (unknown) (unknown) Patient vomited her dinner up last night. Anion gap now back up to 21. (units unknown) (unknown) (unknown) (no date) (unknown) (unknown) Patient: Kaur Horton MR (units unknown) (unknown) (unknown) (no date) (unknown) (unknown) Phosphorus 1.0 L* D (units unknown) (unknown) (unknown) (no date) (unknown) (unknown) Phosphorus (units unknown) (unknown) (unknown) (no date) (unknown) (unknown) Plt Count 285 (units unknown) (unknown) (unknown) (no date) (unknown) (unknown) Plt Count (units unknown) (unknown) (unknown) (no date) (unknown) (unknown) Potassium 3.0 L (units unknown) (unknown) (unknown) (no date) (unknown) (unknown) Potassium 3.2 L (units unknown) (unknown) (unknown) (no date) (unknown) (unknown) Progress Note (units unknown) (unknown) (unknown) (no date) (unknown) (unknown) Provider: Alonzo Dueñas D.O. (units unknown) (unknown) (unknown) (no date) (unknown) (unknown) Psych:? Patient has a well-kept appearance, appropriate affect, mental status (units unknown) (unknown) (unknown) (no date) (unknown) (unknown) Pulse Oximetry 100 (units unknown) (unknown) (unknown) (no date) (unknown) (unknown) Pulse Rate 80 (units unknown) (unknown) (unknown) (no date) (unknown) (unknown) RBC 3.74 L (units unknown) (unknown) (unknown) (no date) (unknown) (unknown) RBC (units unknown) (unknown) (unknown) (no date) (unknown) (unknown) RDW 16.3 H (units unknown) (unknown) (unknown) (no date) (unknown) (unknown) RDW (units unknown) (unknown) (unknown) (no date) (unknown) (unknown) Respiratory Rate 20 (units unknown) (unknown) (unknown) (no date) (unknown) (unknown) Signed By:<Electronically signed by Alonzo Dueñas D.O.> (units unknown) (unknown) (unknown) (no date) (unknown) (unknown) Skin:? Warm dry and intact without rashes, ulcerations or petechiae.? (units unknown) (unknown) (unknown) (no date) (unknown) (unknown) Smoking Status: Current every day smoker (units unknown) (unknown) (unknown) (no date) (unknown) (unknown) Social History (units unknown) (unknown) (unknown) (no date) (unknown) (unknown) Sodium 130 L (units unknown) (unknown) (unknown) (no date) (unknown) (unknown) Sodium 134 L (units unknown) (unknown) (unknown) (no date) (unknown) (unknown) Status post appendectomy (units unknown) (unknown) (unknown) (no date) (unknown) (unknown) Subjective (units unknown) (unknown) (unknown) (no date) (unknown) (unknown) Surgical History (units unknown) (unknown) (unknown) (no date) (unknown) (unknown) Surrogate decision maker:? Spouse Khoa (units unknown) (unknown) (unknown) (no date) (unknown) (unknown) Temperature 97.4 F L (units unknown) (unknown) (unknown) (no date) (unknown) (unknown) UTI/pyelonephritis, with intractable nausea vomiting, acute, present on (units unknown) (unknown) (unknown) (no date) (unknown) (unknown) Urine Osmolality 440 (units unknown) (unknown) (unknown) (no date) (unknown) (unknown) Urine Osmolality (units unknown) (unknown) (unknown) (no date) (unknown) (unknown) Vital Signs (units unknown) (unknown) (unknown) (no date) (unknown) (unknown) WBC 5.3 (units unknown) (unknown) (unknown) (no date) (unknown) (unknown) WBC (units unknown) (unknown) (unknown) (no date) (unknown) (unknown) [Embedded Image Not Available] (units unknown) (unknown) (unknown) (no date) (unknown) (unknown) admission, improving (units unknown) (unknown) (unknown) (no date) (unknown) (unknown) alcohol intake: never (units unknown) (unknown) (unknown) (no date) (unknown) (unknown) as needed (units unknown) (unknown) (unknown) (no date) (unknown) (unknown) attitude thought context and judgment are appropriate for age. (units unknown) (unknown) (unknown) (no date) (unknown) (unknown) complications in relation to acute illness/chronic illness.? This increases the (units unknown) (unknown) (unknown) (no date) (unknown) (unknown) deformity, crepitus, effusions, cyanosis, clubbing or edema present.? Full range (units unknown) (unknown) (unknown) (no date) (unknown) (unknown) difficulty in complexity of medical management and increases the chances poor (units unknown) (unknown) (unknown) (no date) (unknown) (unknown) distress. Somnolent. (units unknown) (unknown) (unknown) (no date) (unknown) (unknown) drip for DKA (units unknown) (unknown) (unknown) (no date) (unknown) (unknown) gastroparesis, chronic, present on admission (units unknown) (unknown) (unknown) (no date) (unknown) (unknown) guarding or rebound, positive CVA tenderness. (units unknown) (unknown) (unknown) (no date) (unknown) (unknown) household members: spouse (units unknown) (unknown) (unknown) (no date) (unknown) (unknown) immune suppression. (units unknown) (unknown) (unknown) (no date) (unknown) (unknown) intake and nutrition. (units unknown) (unknown) (unknown) (no date) (unknown) (unknown) intake (units unknown) (unknown) (unknown) (no date) (unknown) (unknown) midline. (units unknown) (unknown) (unknown) (no date) (unknown) (unknown) of motion intact radial and pedal pulses are normal. (units unknown) (unknown) (unknown) (no date) (unknown) (unknown) organomegaly, or masses.? Bowel sounds are present in all 4 quadrants without (units unknown) (unknown) (unknown) (no date) (unknown) (unknown) outcomes such as mortality and morbidity as well as impaired wound healing, and (units unknown) (unknown) (unknown) (no date) (unknown) (unknown) to touch intact, no gross deficits noted of cranial nerves. (units unknown) (unknown) (unknown) (no date) (unknown) (unknown) today; this time is exclusive of procedural time. (units unknown) (unknown) (unknown) (no date) (unknown) (unknown) wears an insulin pum p was discontinued per hospital policy. (units unknown) (unknown) (unknown) (no date) (unknown) (unknown) wheezes, rhonchi, or rales. (units unknown) (unknown) Result panel 1680 (unknown) (no date) (unknown) (unknown) (no value) (units unknown) (unknown) (unknown) (no date) (unknown) (unknown) NO GROWTH AFTER 5 DAYS (units unknown) (unknown) (unknown) (no date) (unknown) (unknown) NO GROWTH AFTER 5 DAYS (units unknown) (unknown) Result panel 1681 (unknown) (no date) (unknown) (unknown) > 60 ml/min (unknown) (unknown) (no date) (unknown) (unknown) > 60 ml/min (unknown) (unknown) (no date) (unknown) (unknown) < 2 mg/dl (unknown) (unknown) (no date) (unknown) (unknown) < 2 mg/dl (unknown) (unknown) (no date) (unknown) (unknown) 0.50 mg/dl (unknown) (unknown) (no date) (unknown) (unknown) 100 mmol/l (unknown) (unknown) (no date) (unknown) (unknown) 133 mmol/l (unknown) (unknown) (no date) (unknown) (unknown) 2.9 mmol/l (unknown) (unknown) (no date) (unknown) (unknown) 26 mmol/l (unknown) (unknown) (no date) (unknown) (unknown) 4.0 (units unknown) (unknown) (unknown) (no date) (unknown) (unknown) 7.6 mg/dl (unknown) (unknown) (no date) (unknown) (unknown) 83 mg/dl (unknown) (unknown) (no date) (unknown) (unknown) 83 mg/dl (unknown) Result panel 1682 (unknown) (no date) (unknown) (unknown) (no value) (units unknown) (unknown) (unknown) (no date) (unknown) (unknown) #: [id number] (units unknown) (unknown) (unknown) (no date) (unknown) (unknown) 08/15/22 1643 (units unknown) (unknown) (unknown) (no date) (unknown) (unknown) :: (units unknown) (unknown) (unknown) (no date) (unknown) (unknown) Age/Sex: 27 / F (units unknown) (unknown) (unknown) (no date) (unknown) (unknown) : 1995 Acct:[id number] (units unknown) (unknown) (unknown) (no date) (unknown) (unknown) Date of Service: 08/13/22 (units unknown) (unknown) (unknown) (no date) (unknown) (unknown) ICU Multidisciplinar y Rounds (units unknown) (unknown) (unknown) (no date) (unknown) (unknown) [address] [address] (units unknown) (unknown) (unknown) (no date) (unknown) (unknown) Note: (units unknown) (unknown) (unknown) (no date) (unknown) (unknown) Patient: Kaur Horton MR (units unknown) (unknown) (unknown) (no date) (unknown) (unknown) Provider: Socrates Bhagat MD (units unknown) (unknown) (unknown) (no date) (unknown) (unknown) Pt BS <100, Bicarb and AG normal, stopped isnulin drip, start ISS medium (units unknown) (unknown) (unknown) (no date) (unknown) (unknown) Q2h x2 then Q4h for tonight, BMP Q8H. Discussed the plan with RN. (units unknown) (unknown) (unknown) (no date) (unknown) (unknown) Signed By:<Electronically signed by Socrates Bhagat MD> (units unknown) (unknown) (unknown) (no date) (unknown) (unknown) This patient was see n via real time interactive two-way audiovisual (units unknown) (unknown) (unknown) (no date) (unknown) (unknown) depending on her BS/ PO intake, switched the fluid to LR at 100 ml/hr, BS check (units unknown) (unknown) (unknown) (no date) (unknown) (unknown) strength, pt already received lantus in Am, will need another dose in am (units unknown) (unknown) (unknown) (no date) (unknown) (unknown) telecommunication. (units unknown) (unknown) Result panel 1683 (unknown) (no date) (unknown) (unknown) (no value) (units unknown) (unknown) (unknown) (no date) (unknown) (unknown) NO GROWTH AFTER 4 DAYS (units unknown) (unknown) Result panel 1684 (unknown) (no date) (unknown) (unknown) (no value) (units unknown) (unknown) (unknown) (no date) (unknown) (unknown) NO GROWTH AFTER 4 DAYS (units unknown) (unknown) Result panel 1685 (unknown) (no date) (unknown) (unknown) > 60 ml/min (unknown) (unknown) (no date) (unknown) (unknown) > 60 ml/min (unknown) (unknown) (no date) (unknown) (unknown) < 2 mg/dl (unknown) (unknown) (no date) (unknown) (unknown) 0.44 mg/dl (unknown) (unknown) (no date) (unknown) (unknown) 1.2 mg/dl (unknown) (unknown) (no date) (unknown) (unknown) 134 mmol/l (unknown) (unknown) (no date) (unknown) (unknown) 28 mmol/l (unknown) (unknown) (no date) (unknown) (unknown) 3.4 mmol/l (unknown) (unknown) (no date) (unknown) (unknown) 4.5 (units unknown) (unknown) (unknown) (no date) (unknown) (unknown) 7.9 mg/dl (unknown) (unknown) (no date) (unknown) (unknown) 96 mg/dl (unknown) (unknown) (no date) (unknown) (unknown) 96 mg/dl (unknown) (unknown) (no date) (unknown) (unknown) 99 mmol/l (unknown) Result panel 1686 (unknown) (no date) (unknown) (unknown) 0 /ul (unknown) (unknown) (no date) (unknown) (unknown) 0 /ul (unknown) (unknown) (no date) (unknown) (unknown) 0.0 % (unknown) (unknown) (no date) (unknown) (unknown) 0.6 % (unknown) (unknown) (no date) (unknown) (unknown) 11.7 % (unknown) (unknown) (no date) (unknown) (unknown) 16.5 % (unknown) (unknown) (no date) (unknown) (unknown) 2200 /ul (unknown) (unknown) (no date) (unknown) (unknown) 26.1 pg (unknown) (unknown) (no date) (unknown) (unknown) 27.0 % (unknown) (unknown) (no date) (unknown) (unknown) 275 x10 3/ul (unknown) (unknown) (no date) (unknown) (unknown) 3.50 x10 6/ul (unknown) (unknown) (no date) (unknown) (unknown) 32.3 % (unknown) (unknown) (no date) (unknown) (unknown) 32.3 % (unknown) (unknown) (no date) (unknown) (unknown) 33.8 % (unknown) (unknown) (no date) (unknown) (unknown) 3800 /ul (unknown) (unknown) (no date) (unknown) (unknown) 55.4 % (unknown) (unknown) (no date) (unknown) (unknown) 55.4 % (unknown) (unknown) (no date) (unknown) (unknown) 6.8 x10 3/ul (unknown) (unknown) (no date) (unknown) (unknown) 77.4 fl (unknown) (unknown) (no date) (unknown) (unknown) 800 /ul (unknown) (unknown) (no date) (unknown) (unknown) 9.1 g/dl (unknown) Result panel 1687 (unknown) (no date) (unknown) (unknown) > 60 ml/min (unknown) (unknown) (no date) (unknown) (unknown) > 60 ml/min (unknown) (unknown) (no date) (unknown) (unknown) < 2 mg/dl (unknown) (unknown) (no date) (unknown) (unknown) 0.41 mg/dl (unknown) (unknown) (no date) (unknown) (unknown) 131 mmol/l (unknown) (unknown) (no date) (unknown) (unknown) 145 mg/dl (unknown) (unknown) (no date) (unknown) (unknown) 145 mg/dl (unknown) (unknown) (no date) (unknown) (unknown) 27 mmol/l (unknown) (unknown) (no date) (unknown) (unknown) 3.7 mmol/l (unknown) (unknown) (no date) (unknown) (unknown) 4.9 (units unknown) (unknown) (unknown) (no date) (unknown) (unknown) 8.0 mg/dl (unknown) (unknown) (no date) (unknown) (unknown) 98 mmol/l (unknown) Result panel 1688 (unknown) (no date) (unknown) (unknown) (no value) (units unknown) (unknown) (unknown) (no date) (unknown) (unknown) #: [id number] (units unknown) (unknown) (unknown) (no date) (unknown) (unknown) (1) Nausea and vomiting: (units unknown) (unknown) (unknown) (no date) (unknown) (unknown) (past 8 hours): (units unknown) (unknown) (unknown) (no date) (unknown) (unknown) -A1c 7.6% (units unknown) (unknown) (unknown) (no date) (unknown) (unknown) -BMI 22.8 (units unknown) (unknown) (unknown) (no date) (unknown) (unknown) -BMP on 08/13 with bicarb 9, ketones positive and pH 7.2 so started on insulin (units unknown) (unknown) (unknown) (no date) (unknown) (unknown) -BNP q.4 hours (units unknown) (unknown) (unknown) (no date) (unknown) (unknown) -Haldol 0.5 IV PRN i n addition to Phenergan suppositories, IV Zofran and reglan (units unknown) (unknown) (unknown) (no date) (unknown) (unknown) -admitted under diabetic protocols, sliding scale for coverage, patient normally (units unknown) (unknown) (unknown) (no date) (unknown) (unknown) -antiemetics, pain control (units unknown) (unknown) (unknown) (no date) (unknown) (unknown) -cultures growing E. coli so changed to rocephin 1g daily x3 days (units unknown) (unknown) (unknown) (no date) (unknown) (unknown) -dietary consult ordered to evaluate and implement steps to improve caloric (units unknown) (unknown) (unknown) (no date) (unknown) (unknown) -initiated for complicated sepsis UTI meropenem and vancomycin (per up-to date) (units unknown) (unknown) (unknown) (no date) (unknown) (unknown) -last A1c 01/31/2022 6.3 -reviewed endocrinology notes (units unknown) (unknown) (unknown) (no date) (unknown) (unknown) -monitor QT (units unknown) (unknown) (unknown) (no date) (unknown) (unknown) -now back on insulin drip to close gap, will wean off when patient tolerating po (units unknown) (unknown) (unknown) (no date) (unknown) (unknown) -patient's malnutrition places them at high risk for medical and surgical (units unknown) (unknown) (unknown) (no date) (unknown) (unknown) -potassium 3.3 on admission (units unknown) (unknown) (unknown) (no date) (unknown) (unknown) -potassium goal: 4-5 (units unknown) (unknown) (unknown) (no date) (unknown) (unknown) -still having troubl e with NV (units unknown) (unknown) (unknown) (no date) (unknown) (unknown) -transitioned to lantus 20u BID, but gap went back up to 21 (units unknown) (unknown) (unknown) (no date) (unknown) (unknown) -weaned off insulin drip on 08/14 after gap closed to 6 (units unknown) (unknown) (unknown) (no date) (unknown) (unknown) 02:24 02:24 06:26 (units unknown) (unknown) (unknown) (no date) (unknown) (unknown) 08/15/22 08/15/22 08/15/22 (units unknown) (unknown) (unknown) (no date) (unknown) (unknown) 08/16/22 08/16/22 08/16/22 (units unknown) (unknown) (unknown) (no date) (unknown) (unknown) 08/16/22 06:26 (units unknown) (unknown) (unknown) (no date) (unknown) (unknown) 08/16/22 1212 (units unknown) (unknown) (unknown) (no date) (unknown) (unknown) 08/16/22 (units unknown) (unknown) (unknown) (no date) (unknown) (unknown) 06:26 (units unknown) (unknown) (unknown) (no date) (unknown) (unknown) 08:14 08/16/22 (units unknown) (unknown) (unknown) (no date) (unknown) (unknown) 08:47 (units unknown) (unknown) (unknown) (no date) (unknown) (unknown) 1. Lactic acidosis sepsis (metabolic) without septic shock due to (units unknown) (unknown) (unknown) (no date) (unknown) (unknown) 11:45 11:45 15:30 (units unknown) (unknown) (unknown) (no date) (unknown) (unknown) 2. DKA 2/2 insulin-dependent type 1 diabetic with peripheral neuropathy and (units unknown) (unknown) (unknown) (no date) (unknown) (unknown) 3. Hypokalemia, acute, secondary to volume loss N/V, present on admission (units unknown) (unknown) (unknown) (no date) (unknown) (unknown) 4. Malnutrition, mild, acute on chronic, present on admission (units unknown) (unknown) (unknown) (no date) (unknown) (unknown) [facility] Administration (units unknown) (unknown) (unknown) (no date) (unknown) (unknown) ALSO OFF THE INSULIN DRIP AND WILL DO SUGARS AC AND HS AND CONT LANTUS 20 UNITS (units unknown) (unknown) (unknown) (no date) (unknown) (unknown) AN INSULUN PUMP WHIC H IS OFF PER PROTOCOL. WILL ALSO START PT ON IV ZOFRAN (units unknown) (unknown) (unknown) (no date) (unknown) (unknown) AND IV REGLAN AND NORVASC FOR ELEVATED BP OF 153 SYTOLIV AND CLONIDONE PRN (units unknown) (unknown) (unknown) (no date) (unknown) (unknown) AND REGULAR INSULIN AND LAST SUGARS ARE 145 AND 96, PT HAS LABILE DM1 AND USES (units unknown) (unknown) (unknown) (no date) (unknown) (unknown) Acetaminophen 325 Mg Tablet PO 650 mg (units unknown) (unknown) (unknown) (no date) (unknown) (unknown) Acetaminophen 650 mg 08/12/22 01:00 08/14/22 15:44 (units unknown) (unknown) (unknown) (no date) (unknown) (unknown) Age/Sex: 27 / F (units unknown) (unknown) (unknown) (no date) (unknown) (unknown) Amlodipine 5 Mg Tablet PO 10 mg (units unknown) (unknown) (unknown) (no date) (unknown) (unknown) Amlodipine Besylate 10 mg 08/16/22 10:00 08/16/22 10:12 (units unknown) (unknown) (unknown) (no date) (unknown) (unknown) And Vomiting #12 ea 08/16/22 [Rx] (units unknown) (unknown) (unknown) (no date) (unknown) (unknown) Anxiety (units unknown) (unknown) (unknown) (no date) (unknown) (unknown) Assessment + Plan narrative: (units unknown) (unknown) (unknown) (no date) (unknown) (unknown) Assessment + Plan (units unknown) (unknown) (unknown) (no date) (unknown) (unknown) Assessment and plan (units unknown) (unknown) (unknown) (no date) (unknown) (unknown) BID [facility] Administration (units unknown) (unknown) (unknown) (no date) (unknown) (unknown) BUN < 2 L (units unknown) (unknown) (unknown) (no date) (unknown) (unknown) BUN 2 L < 2 L (units unknown) (unknown) (unknown) (no date) (unknown) (unknown) BUN/Creatinine Ratio 3.8 L 4.0 L (units unknown) (unknown) (unknown) (no date) (unknown) (unknown) BUN/Creatinine Ratio 4.5 L (units unknown) (unknown) (unknown) (no date) (unknown) (unknown) BUN/Creatinine Ratio 4.9 L (units unknown) (unknown) (unknown) (no date) (unknown) (unknown) Baso # (Auto) 0 (units unknown) (unknown) (unknown) (no date) (unknown) (unknown) Baso # (Auto) (units unknown) (unknown) (unknown) (no date) (unknown) (unknown) Baso % (Auto) 0.6 (units unknown) (unknown) (unknown) (no date) (unknown) (unknown) Baso % (Auto) (units unknown) (unknown) (unknown) (no date) (unknown) (unknown) Blood Pressure 117/81 (units unknown) (unknown) (unknown) (no date) (unknown) (unknown) CONT [facility] Administration (units unknown) (unknown) (unknown) (no date) (unknown) (unknown) CONT [place] (units unknown) (unknown) (unknown) (no date) (unknown) (unknown) COVID PCR:Ordered (units unknown) (unknown) (unknown) (no date) (unknown) (unknown) Calcium 7.8 L 7.6 L (units unknown) (unknown) (unknown) (no date) (unknown) (unknown) Calcium 7.9 L (units unknown) (unknown) (unknown) (no date) (unknown) (unknown) Calcium 8.0 L (units unknown) (unknown) (unknown) (no date) (unknown) (unknown) Cannabis hyperemesis syndrome concurrent with and due to cannabis dependence (units unknown) (unknown) (unknown) (no date) (unknown) (unknown) Carbon Dioxide 27 26 (units unknown) (unknown) (unknown) (no date) (unknown) (unknown) Carbon Dioxide 27 (units unknown) (unknown) (unknown) (no date) (unknown) (unknown) Carbon Dioxide 28 (units unknown) (unknown) (unknown) (no date) (unknown) (unknown) Chloride 98 (units unknown) (unknown) (unknown) (no date) (unknown) (unknown) Chloride 99 100 (units unknown) (unknown) (unknown) (no date) (unknown) (unknown) Chloride 99 (units unknown) (unknown) (unknown) (no date) (unknown) (unknown) Code status:? 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: Yes (units unknown) (unknown) (unknown) (no date) (unknown) (unknown) Creatinine 0.41 L (units unknown) (unknown) (unknown) (no date) (unknown) (unknown) Creatinine 0.44 L (units unknown) (unknown) (unknown) (no date) (unknown) (unknown) Creatinine 0.52 0.50 L (units unknown) (unknown) (unknown) (no date) (unknown) (unknown) Current Medications (units unknown) (unknown) (unknown) (no date) (unknown) (unknown) Cyclic vomiting syndrome (units unknown) (unknown) (unknown) (no date) (unknown) (unknown) D10w IV Not Given (units unknown) (unknown) (unknown) (no date) (unknown) (unknown) DAILY [facility] Administration (units unknown) (unknown) (unknown) (no date) (unknown) (unknown) DKA (diabetic ketoacidoses) (units unknown) (unknown) (unknown) (no date) (unknown) (unknown) : 1995 Acct:[id number] (units unknown) (unknown) (unknown) (no date) (unknown) (unknown) DVT/VTE prophylaxis: ? SCDs, refusing lovenox (units unknown) (unknown) (unknown) (no date) (unknown) (unknown) Date of Service: 08/13/22 (units unknown) (unknown) (unknown) (no date) (unknown) (unknown) Dextrose 1,000 mls @ 116.8 mls/hr 08/15/22 16:00 08/15/22 16:23 (units unknown) (unknown) (unknown) (no date) (unknown) (unknown) Dextrose 25 gm 08/14/22 17:36 08/15/22 17:12 (units unknown) (unknown) (unknown) (no date) (unknown) (unknown) Dextrose 50 % In Water 25 Gm/50 Ml Syringe IV 25 gm (units unknown) (unknown) (unknown) (no date) (unknown) (unknown) Diabetes mellitus, type I (units unknown) (unknown) (unknown) (no date) (unknown) (unknown) Discontinued Reason: Duplicate order 1 tab PO BID 10 days 20 tabs 0RF (units unknown) (unknown) (unknown) (no date) (unknown) (unknown) Discontinued Reason: Duplicate order 12.5 mg PO BID PRN 14 tabs 0RF (units unknown) (unknown) (unknown) (no date) (unknown) (unknown) Discontinued Reason: Patient no longer taking 40 mg PO BID 30 tabs 0RF (units unknown) (unknown) (unknown) (no date) (unknown) (unknown) Discontinued Reason: Patient no longer taking take 1 tab at onset of (units unknown) (unknown) (unknown) (no date) (unknown) (unknown) Discontinued Reason: Provider's Order 1 tab PO Q12H 10 days 20 tabs 0RF (units unknown) (unknown) (unknown) (no date) (unknown) (unknown) Discontinued (units unknown) (unknown) (unknown) (no date) (unknown) (unknown) Dispo: Home pending improvement in po intake. (units unknown) (unknown) (unknown) (no date) (unknown) (unknown) Eos # (Auto) 0 (units unknown) (unknown) (unknown) (no date) (unknown) (unknown) Eos # (Auto) (units unknown) (unknown) (unknown) (no date) (unknown) (unknown) Eos % (Auto) 0.0 L (units unknown) (unknown) (unknown) (no date) (unknown) (unknown) Eos % (Auto) (units unknown) (unknown) (unknown) (no date) (unknown) (unknown) Estimated GFR > 60 > 60 (units unknown) (unknown) (unknown) (no date) (unknown) (unknown) Estimated GFR > 60 (units unknown) (unknown) (unknown) (no date) (unknown) (unknown) Exam Narrative: (units unknown) (unknown) (unknown) (no date) (unknown) (unknown) Exam (units unknown) (unknown) (unknown) (no date) (unknown) (unknown) Family History? (units unknown) (unknown) (unknown) (no date) (unknown) (unknown) Fever/Mild Pain (1-3) (units unknown) (unknown) (unknown) (no date) (unknown) (unknown) Gastroparesis (units unknown) (unknown) (unknown) (no date) (unknown) (unknown) Generic Name Dose Route Start Last Admin (units unknown) (unknown) (unknown) (no date) (unknown) (unknown) Glucose 145 H (units unknown) (unknown) (unknown) (no date) (unknown) (unknown) Glucose 95 D 83 (units unknown) (unknown) (unknown) (no date) (unknown) (unknown) Glucose 96 (units unknown) (unknown) (unknown) (no date) (unknown) (unknown) Haloperidol 0.5 mg 08/14/22 14:57 08/14/22 23:27 (units unknown) (unknown) (unknown) (no date) (unknown) (unknown) Haloperidol 5 Mg/Ml Vial IV 0.5 mg (units unknown) (unknown) (unknown) (no date) (unknown) (unknown) Hct 27.0 L (units unknown) (unknown) (unknown) (no date) (unknown) (unknown) Hct (units unknown) (unknown) (unknown) (no date) (unknown) (unknown) Healthy adult (units unknown) (unknown) (unknown) (no date) (unknown) (unknown) Hgb 9.1 L (units unknown) (unknown) (unknown) (no date) (unknown) (unknown) Hgb (units unknown) (unknown) (unknown) (no date) (unknown) (unknown) Home Medications (units unknown) (unknown) (unknown) (no date) (unknown) (unknown) Hydromorphone 0.5 Mg Inj IV 0.5 mg (units unknown) (unknown) (unknown) (no date) (unknown) (unknown) Hydromorphone HCl 0. 5 mg 08/15/22 16:15 08/16/22 08:32 (units unknown) (unknown) (unknown) (no date) (unknown) (unknown) Hydroxyzine Pamoate 25 Mg Capsule PO 25 mg (units unknown) (unknown) (unknown) (no date) (unknown) (unknown) Hydroxyzine Pamoate 25 mg 08/14/22 12:26 08/15/22 09:48 (units unknown) (unknown) (unknown) (no date) (unknown) (unknown) HypertensionFather (units unknown) (unknown) (unknown) (no date) (unknown) (unknown) Hypoglycemia (units unknown) (unknown) (unknown) (no date) (unknown) (unknown) I spent a total of 3 5 minutes of critical care time on this patient's care (units unknown) (unknown) (unknown) (no date) (unknown) (unknown) IF CAMERA ACTIVATED, patient seen via real-time interactive audiovisual (units unknown) (unknown) (unknown) (no date) (unknown) (unknown) Insulin Glargine 100 Unit/Ml 3ml Pen SUBCUT 20 unit (units unknown) (unknown) (unknown) (no date) (unknown) (unknown) Insulin Glargine 20 unit 08/14/22 21:00 08/16/22 09:10 (units unknown) (unknown) (unknown) (no date) (unknown) (unknown) Insulin Human Regula r 0 unit 08/15/22 16:45 08/16/22 08:21 (units unknown) (unknown) (unknown) (no date) (unknown) (unknown) Insulin Regular 100 Unit/Ml 3 Ml Vial SUBCUT 1 unit (units unknown) (unknown) (unknown) (no date) (unknown) (unknown) Insulin dependent diabetes mellitus (units unknown) (unknown) (unknown) (no date) (unknown) (unknown) Interval history: (units unknown) (unknown) (unknown) (no date) (unknown) (unknown) [address] [address] (units unknown) (unknown) (unknown) (no date) (unknown) (unknown) Itching (units unknown) (unknown) (unknown) (no date) (unknown) (unknown) LOOKS COMFORTABLE WITH NO ACUTE ISSUES (units unknown) (unknown) (unknown) (no date) (unknown) (unknown) Laboratory Results - last 24 hr (units unknown) (unknown) (unknown) (no date) (unknown) (unknown) Labs (units unknown) (unknown) (unknown) (no date) (unknown) (unknown) Labs: (units unknown) (unknown) (unknown) (no date) (unknown) (unknown) Lactated Ringer's 1,000 mls @ 100 mls/hr 08/15/22 16:15 08/16/22 02:08 (units unknown) (unknown) (unknown) (no date) (unknown) (unknown) Lactated Ringers IV 100 mls/hr (units unknown) (unknown) (unknown) (no date) (unknown) (unknown) Lorazepam 0.5 mg 08/15/22 14:35 08/16/22 07:55 (units unknown) (unknown) (unknown) (no date) (unknown) (unknown) Lorazepam 2 Mg/Ml In j IV 0.5 mg (units unknown) (unknown) (unknown) (no date) (unknown) (unknown) Lymph # (Auto) 3800 (units unknown) (unknown) (unknown) (no date) (unknown) (unknown) Lymph # (Auto) (units unknown) (unknown) (unknown) (no date) (unknown) (unknown) Lymph % (Auto) 55.4 H D (units unknown) (unknown) (unknown) (no date) (unknown) (unknown) Lymph % (Auto) (units unknown) (unknown) (unknown) (no date) (unknown) (unknown) MCH 26.1 (units unknown) (unknown) (unknown) (no date) (unknown) (unknown) MCH (units unknown) (unknown) (unknown) (no date) (unknown) (unknown) MCHC 33.8 (units unknown) (unknown) (unknown) (no date) (unknown) (unknown) MCHC (units unknown) (unknown) (unknown) (no date) (unknown) (unknown) MCV 77.4 L (units unknown) (unknown) (unknown) (no date) (unknown) (unknown) MCV (units unknown) (unknown) (unknown) (no date) (unknown) (unknown) Magnesium 1.7 (units unknown) (unknown) (unknown) (no date) (unknown) (unknown) Magnesium (units unknown) (unknown) (unknown) (no date) (unknown) (unknown) Medications: (units unknown) (unknown) (unknown) (no date) (unknown) (unknown) Metoclopramide 10 Mg/2 Ml Inj IV 08/17/22 04:01 10 mg (units unknown) (unknown) (unknown) (no date) (unknown) (unknown) Metoclopramide 10 Mg/2 Ml Inj IV 10 mg (units unknown) (unknown) (unknown) (no date) (unknown) (unknown) Metoclopramide HCl 1 0 mg 08/13/22 09:29 08/14/22 22:22 (units unknown) (unknown) (unknown) (no date) (unknown) (unknown) Metoclopramide HCl 1 0 mg 08/16/22 10:00 08/16/22 10:15 (units unknown) (unknown) (unknown) (no date) (unknown) (unknown) Migraine headache with aura (units unknown) (unknown) (unknown) (no date) (unknown) (unknown) O[place]Brien # (Auto) 800 (units unknown) (unknown) (unknown) (no date) (unknown) (unknown) O[place]Brien # (Auto) (units unknown) (unknown) (unknown) (no date) (unknown) (unknown) O[place]Brien % (Auto) 11.7 (units unknown) (unknown) (unknown) (no date) (unknown) (unknown) O[place]Brien % (Auto) (units unknown) (unknown) (unknown) (no date) (unknown) (unknown) Mother (units unknown) (unknown) (unknown) (no date) (unknown) (unknown) Myopia (units unknown) (unknown) (unknown) (no date) (unknown) (unknown) NAUSEA AND VOMITING. 473 mL 0RF (units unknown) (unknown) (unknown) (no date) (unknown) (unknown) Narrative (units unknown) (unknown) (unknown) (no date) (unknown) (unknown) Nausea And Vomiting (units unknown) (unknown) (unknown) (no date) (unknown) (unknown) Nausea (units unknown) (unknown) (unknown) (no date) (unknown) (unknown) Neut # (Auto) 2200 (units unknown) (unknown) (unknown) (no date) (unknown) (unknown) Neut # (Auto) (units unknown) (unknown) (unknown) (no date) (unknown) (unknown) Neut % (Auto) 32.3 L D (units unknown) (unknown) (unknown) (no date) (unknown) (unknown) Neut % (Auto) (units unknown) (unknown) (unknown) (no date) (unknown) (unknown) New (units unknown) (unknown) (unknown) (no date) (unknown) (unknown) Objective (units unknown) (unknown) (unknown) (no date) (unknown) (unknown) Ondansetron 4 Mg/2 M l Inj IV 4 mg (units unknown) (unknown) (unknown) (no date) (unknown) (unknown) Ondansetron HCl 4 mg 08/12/22 07:47 08/15/22 03:05 (units unknown) (unknown) (unknown) (no date) (unknown) (unknown) Other participants/roles: MD (units unknown) (unknown) (unknown) (no date) (unknown) (unknown) Oxycodone HCl 5 mg 08/14/22 12:49 08/15/22 15:17 (units unknown) (unknown) (unknown) (no date) (unknown) (unknown) Oxycodone Ir 5 Mg Tablet PO 5 mg (units unknown) (unknown) (unknown) (no date) (unknown) (unknown) Oxygen Delivery Method Room Air (units unknown) (unknown) (unknown) (no date) (unknown) (unknown) Oxygen Flow Rate 0 (units unknown) (unknown) (unknown) (no date) (unknown) (unknown) PO 60 tabs 0RF (units unknown) (unknown) (unknown) (no date) (unknown) (unknown) PRN PRN Administration (units unknown) (unknown) (unknown) (no date) (unknown) (unknown) PT IS COMFORTABLW WITH NO ACUTE ISSUES AND REQUIRING IV DIALUDID FOR PAIN AND (units unknown) (unknown) (unknown) (no date) (unknown) (unknown) Pain, Moderate (4-6) (units unknown) (unknown) (unknown) (no date) (unknown) (unknown) Pancreatitis (units unknown) (unknown) (unknown) (no date) (unknown) (unknown) Pantoprazole 40 Mg Vial IV 20 mg (units unknown) (unknown) (unknown) (no date) (unknown) (unknown) Pantoprazole Sodium 20 mg 08/12/22 09:00 08/16/22 09:13 (units unknown) (unknown) (unknown) (no date) (unknown) (unknown) Patient Location: ICU (units unknown) (unknown) (unknown) (no date) (unknown) (unknown) Patient: Kaur Horton MR (units unknown) (unknown) (unknown) (no date) (unknown) (unknown) Phosphorus 1.0 L* D (units unknown) (unknown) (unknown) (no date) (unknown) (unknown) Phosphorus 1.2 L (units unknown) (unknown) (unknown) (no date) (unknown) (unknown) Phosphorus (units unknown) (unknown) (unknown) (no date) (unknown) (unknown) Plan (units unknown) (unknown) (unknown) (no date) (unknown) (unknown) Plt Count 275 (units unknown) (unknown) (unknown) (no date) (unknown) (unknown) Plt Count (units unknown) (unknown) (unknown) (no date) (unknown) (unknown) Potassium 3.0 L 2.9 L (units unknown) (unknown) (unknown) (no date) (unknown) (unknown) Potassium 3.4 (units unknown) (unknown) (unknown) (no date) (unknown) (unknown) Potassium 3.7 (units unknown) (unknown) (unknown) (no date) (unknown) (unknown) Potassium Phos/Sodiu m Phos 2 each 08/16/22 03:15 08/16/22 09:21 (units unknown) (unknown) (unknown) (no date) (unknown) (unknown) Promethazine 25 Mg Supp PA 25 mg (units unknown) (unknown) (unknown) (no date) (unknown) (unknown) Promethazine HCl 25 mg 08/12/22 00:54 08/13/22 15:23 (units unknown) (unknown) (unknown) (no date) (unknown) (unknown) Protocol (units unknown) (unknown) (unknown) (no date) (unknown) (unknown) Provider location (State): [place] (units unknown) (unknown) (unknown) (no date) (unknown) (unknown) Provider: Michael Pierce (units unknown) (unknown) (unknown) (no date) (unknown) (unknown) Pulse Oximetry 99 (units unknown) (unknown) (unknown) (no date) (unknown) (unknown) Pulse Rate 79 (units unknown) (unknown) (unknown) (no date) (unknown) (unknown) Q4H PRN Administration (units unknown) (unknown) (unknown) (no date) (unknown) (unknown) Q4H [facility] Administration (units unknown) (unknown) (unknown) (no date) (unknown) (unknown) Q4HR PRN Administration (units unknown) (unknown) (unknown) (no date) (unknown) (unknown) Q6H PRN Administration (units unknown) (unknown) (unknown) (no date) (unknown) (unknown) Q6H [place] Administration (units unknown) (unknown) (unknown) (no date) (unknown) (unknown) Q6HR PRN Administration (units unknown) (unknown) (unknown) (no date) (unknown) (unknown) Qualifiers: (units unknown) (unknown) (unknown) (no date) (unknown) (unknown) RBC 3.50 L (units unknown) (unknown) (unknown) (no date) (unknown) (unknown) RBC (units unknown) (unknown) (unknown) (no date) (unknown) (unknown) RDW 16.5 H (units unknown) (unknown) (unknown) (no date) (unknown) (unknown) RDW (units unknown) (unknown) (unknown) (no date) (unknown) (unknown) RECORDS AND DISCUSSION WITH BEDSIDE NURSE WAS MORE THAN 30 MINUTES (units unknown) (unknown) (unknown) (no date) (unknown) (unknown) Respiratory Rate 20 (units unknown) (unknown) (unknown) (no date) (unknown) (unknown) Signed By:<Electronically signed by Michael Pierce> (units unknown) (unknown) (unknown) (no date) (unknown) (unknown) Smoking Status:? Current every day smoker (units unknown) (unknown) (unknown) (no date) (unknown) (unknown) Social History? (units unknown) (unknown) (unknown) (no date) (unknown) (unknown) Sodium 131 L (units unknown) (unknown) (unknown) (no date) (unknown) (unknown) Sodium 134 L 133 L (units unknown) (unknown) (unknown) (no date) (unknown) (unknown) Sodium 134 L (units unknown) (unknown) (unknown) (no date) (unknown) (unknown) Sodium,Potassium Phosphates Packet PO 08/16/22 15:16 2 each (units unknown) (unknown) (unknown) (no date) (unknown) (unknown) Status post appendectomy (units unknown) (unknown) (unknown) (no date) (unknown) (unknown) Status: Acute (units unknown) (unknown) (unknown) (no date) (unknown) (unknown) Subjective (units unknown) (unknown) (unknown) (no date) (unknown) (unknown) Surgical History? (units unknown) (unknown) (unknown) (no date) (unknown) (unknown) Surrogate decision maker:? Spouse Khoa (units unknown) (unknown) (unknown) (no date) (unknown) (unknown) TELE ICU TIME INCLUDING MULTIDISCIPLINARY ROUNDS AND REVIEWS OF LABS AND (units unknown) (unknown) (unknown) (no date) (unknown) (unknown) 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 Progress Note (units unknown) (unknown) (unknown) (no date) (unknown) (unknown) Temperature 98.9 F (units unknown) (unknown) (unknown) (no date) (unknown) (unknown) Trade Name Dwayne PRN Reason Stop Dose Admin (units unknown) (unknown) (unknown) (no date) (unknown) (unknown) UTI/pyelonephritis, with intractable nausea vomiting, acute, present on (units unknown) (unknown) (unknown) (no date) (unknown) (unknown) Visit Medications (administered) (units unknown) (unknown) (unknown) (no date) (unknown) (unknown) Vital Signs (units unknown) (unknown) (unknown) (no date) (unknown) (unknown) Vomiting type: unspecified Qualified Code(s): R11.2 - Nausea with (units unknown) (unknown) (unknown) (no date) (unknown) (unknown) WBC 6.8 (units unknown) (unknown) (unknown) (no date) (unknown) (unknown) WBC (units unknown) (unknown) (unknown) (no date) (unknown) (unknown) [Embedded Image Not Available] (units unknown) (unknown) (unknown) (no date) (unknown) (unknown) [History Confirmed 08/12/22] (units unknown) (unknown) (unknown) (no date) (unknown) (unknown) admission, improving (units unknown) (unknown) (unknown) (no date) (unknown) (unknown) alcohol intake:? never (units unknown) (unknown) (unknown) (no date) (unknown) (unknown) as needed (units unknown) (unknown) (unknown) (no date) (unknown) (unknown) aspart) 56 unit SUBCUT DAILY 08/12/22 [History Confirmed 08/14/22] (units unknown) (unknown) (unknown) (no date) (unknown) (unknown) communication: Camer a activated (units unknown) (unknown) (unknown) (no date) (unknown) (unknown) complications in relation to acute illness/chronic illness.? This increases the (units unknown) (unknown) (unknown) (no date) (unknown) (unknown) difficulty in complexity of medical management and increases the chances poor (units unknown) (unknown) (unknown) (no date) (unknown) (unknown) drip for DKA (units unknown) (unknown) (unknown) (no date) (unknown) (unknown) gastroparesis, chronic, present on admission (units unknown) (unknown) (unknown) (no date) (unknown) (unknown) headache; if no relief may repeat 1 tab after at least 2 hrs; max = 3 tabs/24 hr (units unknown) (unknown) (unknown) (no date) (unknown) (unknown) household members:? spouse (units unknown) (unknown) (unknown) (no date) (unknown) (unknown) immune suppression. (units unknown) (unknown) (unknown) (no date) (unknown) (unknown) insulin aspart U-100 1 sliding scale dose SUBCUT USEASDIRECTD 10 mL 3RF (units unknown) (unknown) (unknown) (no date) (unknown) (unknown) insulin aspart U-100 100 unit/mL subcutaneous solution (Novolog U-100 Insulin (units unknown) (unknown) (unknown) (no date) (unknown) (unknown) insulin syringes (disposable) 1 mL #500 ea 08/04/20 [Rx Confirmed 08/14/22] (units unknown) (unknown) (unknown) (no date) (unknown) (unknown) intake and nutrition. (units unknown) (unknown) (unknown) (no date) (unknown) (unknown) intake (units unknown) (unknown) (unknown) (no date) (unknown) (unknown) lorazepam (Ativan) 1 mg PO TID PRN 4 tabs 0RF anxiety (units unknown) (unknown) (unknown) (no date) (unknown) (unknown) lorazepam 1 mg table t (Ativan) 1 mg PO TID PRN anxiety #4 tabs 08/16/22 [Rx] (units unknown) (unknown) (unknown) (no date) (unknown) (unknown) metoclopramide HCl 5 mg/5 mL oral solution 5 mg PO Q8H PRN Nausea 08/12/22 (units unknown) (unknown) (unknown) (no date) (unknown) (unknown) metoclopramide HCl TAKE 10 MG (10ML) BY MOUTH EVERY 6 HOURS NEEDED FOR (units unknown) (unknown) (unknown) (no date) (unknown) (unknown) nausea or vomiting (units unknown) (unknown) (unknown) (no date) (unknown) (unknown) outcomes such as mortality and morbidity as well as impaired wound healing, and (units unknown) (unknown) (unknown) (no date) (unknown) (unknown) pantoprazole (units unknown) (unknown) (unknown) (no date) (unknown) (unknown) promethazine (Promethegan) 25 mg PA Q4-6H PRN 12 ea 0RF Nausea And Vomiting (units unknown) (unknown) (unknown) (no date) (unknown) (unknown) promethazine 12.5 mg PO BID PRN 14 tabs 0RF nausea and vomiting (units unknown) (unknown) (unknown) (no date) (unknown) (unknown) promethazine 12.5 mg tablet 25 mg PO BID PRN nausea and vomiting 08/12/22 (units unknown) (unknown) (unknown) (no date) (unknown) (unknown) promethazine 25 mg rectal suppository (Promethegan) 25 mg PA Q4-6H PRN Nausea (units unknown) (unknown) (unknown) (no date) (unknown) (unknown) promethazine (units unknown) (unknown) (unknown) (no date) (unknown) (unknown) rizatriptan (units unknown) (unknown) (unknown) (no date) (unknown) (unknown) sedation (units unknown) (unknown) (unknown) (no date) (unknown) (unknown) sulfamethoxazole-tri m ethoprim 800-160 mg (units unknown) (unknown) (unknown) (no date) (unknown) (unknown) today; this time is exclusive of procedural time. (units unknown) (unknown) (unknown) (no date) (unknown) (unknown) vomiting, unspecified (units unknown) (unknown) (unknown) (no date) (unknown) (unknown) wears an insulin pum p was discontinued per hospital policy. (units unknown) (unknown) Result panel [id number] (unknown) (no date) (unknown) (unknown) (no value) (units unknown) (unknown) (unknown) (no date) (unknown) (unknown) #: [id number] (units unknown) (unknown) (unknown) (no date) (unknown) (unknown) (DME) insulin syringes (disposable) 1 mL syringe (units unknown) (unknown) (unknown) (no date) (unknown) (unknown) (past 8 hours): (units unknown) (unknown) (unknown) (no date) (unknown) (unknown) Discharges patien t from system. (units unknown) (unknown) (unknown) (no date) (unknown) (unknown) 02:24 02:24 06:26 (units unknown) (unknown) (unknown) (no date) (unknown) (unknown) 08/12/22 00:49 (units unknown) (unknown) (unknown) (no date) (unknown) (unknown) 08/12/22 01:19 (units unknown) (unknown) (unknown) (no date) (unknown) (unknown) 08/13/22 07:45 (units unknown) (unknown) (unknown) (no date) (unknown) (unknown) 08/15/22 08:40 (units unknown) (unknown) (unknown) (no date) (unknown) (unknown) 08/16/22 08/16/22 08/16/22 (units unknown) (unknown) (unknown) (no date) (unknown) (unknown) 08/16/22 06:26 (units unknown) (unknown) (unknown) (no date) (unknown) (unknown) 08/16/22 (units unknown) (unknown) (unknown) (no date) (unknown) (unknown) 06:26 (units unknown) (unknown) (unknown) (no date) (unknown) (unknown) 1 mg PO TID PRN (Reason: anxiety) Qty: 4 0RF (units unknown) (unknown) (unknown) (no date) (unknown) (unknown) 1 tab PO Q12H 10 Day s Qty: 20 0RF (units unknown) (unknown) (unknown) (no date) (unknown) (unknown) 25 mg PO BID PRN (Reason: nausea and vomiting) (units unknown) (unknown) (unknown) (no date) (unknown) (unknown) 25 mg PA Q4-6H PRN (Reason: Nausea And Vomiting) Qty: 12 0RF (units unknown) (unknown) (unknown) (no date) (unknown) (unknown) 5 mg PO Q8H PRN (Reason: Nausea) (units unknown) (unknown) (unknown) (no date) (unknown) (unknown) 56 unit SUBCUT DAILY (units unknown) (unknown) (unknown) (no date) (unknown) (unknown) Abdomen:? Soft diffuse generalized minimal tenderness, negative for (units unknown) (unknown) (unknown) (no date) (unknown) (unknown) Age/Sex: 27 / F (units unknown) (unknown) (unknown) (no date) (unknown) (unknown) Anemia (units unknown) (unknown) (unknown) (no date) (unknown) (unknown) As directed for use with insulin injections (units unknown) (unknown) (unknown) (no date) (unknown) (unknown) At the time of admit patient's vitals temp 98.3?, BP 143/83, HR 123, R 24, O2 (units unknown) (unknown) (unknown) (no date) (unknown) (unknown) BUN < 2 L (units unknown) (unknown) (unknown) (no date) (unknown) (unknown) BUN/Creatinine Ratio 4.5 L (units unknown) (unknown) (unknown) (no date) (unknown) (unknown) BUN/Creatinine Ratio 4.9 L (units unknown) (unknown) (unknown) (no date) (unknown) (unknown) Baso # (Auto) 0 (units unknown) (unknown) (unknown) (no date) (unknown) (unknown) Baso # (Auto) (units unknown) (unknown) (unknown) (no date) (unknown) (unknown) Baso % (Auto) 0.6 (units unknown) (unknown) (unknown) (no date) (unknown) (unknown) Baso % (Auto) (units unknown) (unknown) (unknown) (no date) (unknown) (unknown) Calcium 7.9 L (units unknown) (unknown) (unknown) (no date) (unknown) (unknown) Calcium 8.0 L (units unknown) (unknown) (unknown) (no date) (unknown) (unknown) Cannabis hyperemesis syndrome concurrent with and due to cannabis dependence (units unknown) (unknown) (unknown) (no date) (unknown) (unknown) Carbon Dioxide 27 (units unknown) (unknown) (unknown) (no date) (unknown) (unknown) Carbon Dioxide 28 (units unknown) (unknown) (unknown) (no date) (unknown) (unknown) Cardio:? regular rat e and rhythm with no extra sounds or murmurs. (units unknown) (unknown) (unknown) (no date) (unknown) (unknown) Chest:? Breathing without nasal flaring, retractions, or labored, no tachypneic (units unknown) (unknown) (unknown) (no date) (unknown) (unknown) Chief complaint: vomiting, back pain was seen earlier today (units unknown) (unknown) (unknown) (no date) (unknown) (unknown) Chloride 98 (units unknown) (unknown) (unknown) (no date) (unknown) (unknown) Chloride 99 (units unknown) (unknown) (unknown) (no date) (unknown) (unknown) Comment: (units unknown) (unknown) (unknown) (no date) (unknown) (unknown) Consult to Dietitian , Adult Routine (units unknown) (unknown) (unknown) (no date) (unknown) (unknown) Consult to Dietitian , Adult Urgent (units unknown) (unknown) (unknown) (no date) (unknown) (unknown) 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 (units unknown) (unknown) (unknown) (no date) (unknown) (unknown) Consulting Provider: Rachel Tele-intensivists (units unknown) (unknown) (unknown) (no date) (unknown) (unknown) Consults: (units unknown) (unknown) (unknown) (no date) (unknown) (unknown) Continued (units unknown) (unknown) (unknown) (no date) (unknown) (unknown) Creatinine 0.41 L (units unknown) (unknown) (unknown) (no date) (unknown) (unknown) Creatinine 0.44 L (units unknown) (unknown) (unknown) (no date) (unknown) (unknown) Cyclic vomiting syndrome (units unknown) (unknown) (unknown) (no date) (unknown) (unknown) DKA (diabetic ketoacidoses) (units unknown) (unknown) (unknown) (no date) (unknown) (unknown) : 1995 Acct:[id number] (units unknown) (unknown) (unknown) (no date) (unknown) (unknown) Date Patient Seen: 08/12/22 (units unknown) (unknown) (unknown) (no date) (unknown) (unknown) Date of Service: 08/13/22 (units unknown) (unknown) (unknown) (no date) (unknown) (unknown) Date of admission: (units unknown) (unknown) (unknown) (no date) (unknown) (unknown) Diabetes mellitus, type I (units unknown) (unknown) (unknown) (no date) (unknown) (unknown) Discharge Data (units unknown) (unknown) (unknown) (no date) (unknown) (unknown) Discharge Date/Time: 08/16/22 12:30 (units unknown) (unknown) (unknown) (no date) (unknown) (unknown) Discharge Date: 08/16/22 (units unknown) (unknown) (unknown) (no date) (unknown) (unknown) Discharge Plan (units unknown) (unknown) (unknown) (no date) (unknown) (unknown) Discharge Providers (units unknown) (unknown) (unknown) (no date) (unknown) (unknown) Discharge Summary (units unknown) (unknown) (unknown) (no date) (unknown) (unknown) Discharge orders + Medications (units unknown) (unknown) (unknown) (no date) (unknown) (unknown) Discharge provider: (units unknown) (unknown) (unknown) (no date) (unknown) (unknown) Discontinued (units unknown) (unknown) (unknown) (no date) (unknown) (unknown) Eos # (Auto) 0 (units unknown) (unknown) (unknown) (no date) (unknown) (unknown) Eos # (Auto) (units unknown) (unknown) (unknown) (no date) (unknown) (unknown) Eos % (Auto) 0.0 L (units unknown) (unknown) (unknown) (no date) (unknown) (unknown) Eos % (Auto) (units unknown) (unknown) (unknown) (no date) (unknown) (unknown) Estimated GFR > 60 (units unknown) (unknown) (unknown) (no date) (unknown) (unknown) Exam Narrative: (units unknown) (unknown) (unknown) (no date) (unknown) (unknown) Exam (units unknown) (unknown) (unknown) (no date) (unknown) (unknown) Family History (units unknown) (unknown) (unknown) (no date) (unknown) (unknown) Father Healthy adult (units unknown) (unknown) (unknown) (no date) (unknown) (unknown) Follow up/Referrals: (units unknown) (unknown) (unknown) (no date) (unknown) (unknown) Gastroparesis (units unknown) (unknown) (unknown) (no date) (unknown) (unknown) General:? Patient is a well-developed, well-nourished in no acute medical (units unknown) (unknown) (unknown) (no date) (unknown) (unknown) Glucose 145 H (units unknown) (unknown) (unknown) (no date) (unknown) (unknown) Glucose 96 (units unknown) (unknown) (unknown) (no date) (unknown) (unknown) HEENT:? Normocephalic, atraumatic, extraocular muscles intact. Trachea is (units unknown) (unknown) (unknown) (no date) (unknown) (unknown) Hct 27.0 L (units unknown) (unknown) (unknown) (no date) (unknown) (unknown) Hct (units unknown) (unknown) (unknown) (no date) (unknown) (unknown) Hgb 9.1 L (units unknown) (unknown) (unknown) (no date) (unknown) (unknown) Hgb (units unknown) (unknown) (unknown) (no date) (unknown) (unknown) History of Present Illness (units unknown) (unknown) (unknown) (no date) (unknown) (unknown) Delonte Trevino MD [Primary Care Provider] - 2 Weeks (units unknown) (unknown) (unknown) (no date) (unknown) (unknown) Insulin dependent diabetes mellitus (units unknown) (unknown) (unknown) (no date) (unknown) (unknown) [address] [address] (units unknown) (unknown) (unknown) (no date) (unknown) (unknown) Kaur Morris is 27-year-old female daily smoker (vaping), hx of marijuana daily (units unknown) (unknown) (unknown) (no date) (unknown) (unknown) Laboratory Results - last 24 hr (units unknown) (unknown) (unknown) (no date) (unknown) (unknown) Labs (units unknown) (unknown) (unknown) (no date) (unknown) (unknown) Labs: (units unknown) (unknown) (unknown) (no date) (unknown) (unknown) Lungs:? Auscultation of all lung hendricks are clear without adventitious sounds, (units unknown) (unknown) (unknown) (no date) (unknown) (unknown) Lymph # (Auto) 3800 (units unknown) (unknown) (unknown) (no date) (unknown) (unknown) Lymph # (Auto) (units unknown) (unknown) (unknown) (no date) (unknown) (unknown) Lymph % (Auto) 55.4 H D (units unknown) (unknown) (unknown) (no date) (unknown) (unknown) Lymph % (Auto) (units unknown) (unknown) (unknown) (no date) (unknown) (unknown) MCH 26.1 (units unknown) (unknown) (unknown) (no date) (unknown) (unknown) MCH (units unknown) (unknown) (unknown) (no date) (unknown) (unknown) MCHC 33.8 (units unknown) (unknown) (unknown) (no date) (unknown) (unknown) MCHC (units unknown) (unknown) (unknown) (no date) (unknown) (unknown) MCV 77.4 L (units unknown) (unknown) (unknown) (no date) (unknown) (unknown) MCV (units unknown) (unknown) (unknown) (no date) (unknown) (unknown) Alonzo Dueñas, DO (units unknown) (unknown) (unknown) (no date) (unknown) (unknown) Medical History (Updated 08/12/22 @ 02:17 by COLTON Leggett) (units unknown) (unknown) (unknown) (no date) (unknown) (unknown) Migraine headache with aura (units unknown) (unknown) (unknown) (no date) (unknown) (unknown) O'Brien # (Auto) 800 (units unknown) (unknown) (unknown) (no date) (unknown) (unknown) O'Brien # (Auto) (units unknown) (unknown) (unknown) (no date) (unknown) (unknown) O'Brien % (Auto) 11.7 (units unknown) (unknown) (unknown) (no date) (unknown) (unknown) O'Brien % (Auto) (units unknown) (unknown) (unknown) (no date) (unknown) (unknown) Mother Hypertension (units unknown) (unknown) (unknown) (no date) (unknown) (unknown) Musculoskeletal:? Muscle strength and tone are equal within normal limits, no (units unknown) (unknown) (unknown) (no date) (unknown) (unknown) Myopia (units unknown) (unknown) (unknown) (no date) (unknown) (unknown) Narrative (units unknown) (unknown) (unknown) (no date) (unknown) (unknown) Narrative: (units unknown) (unknown) (unknown) (no date) (unknown) (unknown) Neuro:? Alert and orientated x3, strength is +5/5 in all extremities, sensation (units unknown) (unknown) (unknown) (no date) (unknown) (unknown) Neut # (Auto) 2200 (units unknown) (unknown) (unknown) (no date) (unknown) (unknown) Neut # (Auto) (units unknown) (unknown) (unknown) (no date) (unknown) (unknown) Neut % (Auto) 32.3 L D (units unknown) (unknown) (unknown) (no date) (unknown) (unknown) Neut % (Auto) (units unknown) (unknown) (unknown) (no date) (unknown) (unknown) New (units unknown) (unknown) (unknown) (no date) (unknown) (unknown) Objective (units unknown) (unknown) (unknown) (no date) (unknown) (unknown) On admit patient denies chest pain, shortness in breath, headache, changes in (units unknown) (unknown) (unknown) (no date) (unknown) (unknown) Oxygen Delivery Method Room Air (units unknown) (unknown) (unknown) (no date) (unknown) (unknown) Oxygen Flow Rate 0 (units unknown) (unknown) (unknown) (no date) (unknown) (unknown) PFSH (units unknown) (unknown) (unknown) (no date) (unknown) (unknown) Pancreatitis (units unknown) (unknown) (unknown) (no date) (unknown) (unknown) Patient Disposition: Home (units unknown) (unknown) (unknown) (no date) (unknown) (unknown) Patient's urine was positive for UTI and urine cultures were collected yesterday (units unknown) (unknown) (unknown) (no date) (unknown) (unknown) Patient: Kaur Horton MR (units unknown) (unknown) (unknown) (no date) (unknown) (unknown) Phosphorus 1.2 L (units unknown) (unknown) (unknown) (no date) (unknown) (unknown) Phosphorus (units unknown) (unknown) (unknown) (no date) (unknown) (unknown) Plt Count 275 (units unknown) (unknown) (unknown) (no date) (unknown) (unknown) Plt Count (units unknown) (unknown) (unknown) (no date) (unknown) (unknown) Potassium 3.4 (units unknown) (unknown) (unknown) (no date) (unknown) (unknown) Potassium 3.7 (units unknown) (unknown) (unknown) (no date) (unknown) (unknown) Prescriptions: (units unknown) (unknown) (unknown) (no date) (unknown) (unknown) Primary Care Provider: Delonte Trevino (units unknown) (unknown) (unknown) (no date) (unknown) (unknown) Primary care physician: (units unknown) (unknown) (unknown) (no date) (unknown) (unknown) Provider (units unknown) (unknown) (unknown) (no date) (unknown) (unknown) Provider: Alonzo Dueñas D.O. (units unknown) (unknown) (unknown) (no date) (unknown) (unknown) Psych:? Patient has a well-kept appearance, appropriate affect, mental status (units unknown) (unknown) (unknown) (no date) (unknown) (unknown) RBC 3.50 L (units unknown) (unknown) (unknown) (no date) (unknown) (unknown) RBC (units unknown) (unknown) (unknown) (no date) (unknown) (unknown) RDW 16.5 H (units unknown) (unknown) (unknown) (no date) (unknown) (unknown) RDW (units unknown) (unknown) (unknown) (no date) (unknown) (unknown) Reason For Exam: DM type1, BMI 23 (units unknown) (unknown) (unknown) (no date) (unknown) (unknown) Reason For Exam: MNA score = 11 (units unknown) (unknown) (unknown) (no date) (unknown) (unknown) 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 Warm dry and intact without rashes, ulcerations or petechiae.? (units unknown) (unknown) (unknown) (no date) (unknown) (unknown) Smoking Status: Current every day smoker (units unknown) (unknown) (unknown) (no date) (unknown) (unknown) Social History (units unknown) (unknown) (unknown) (no date) (unknown) (unknown) Sodium 131 L (units unknown) (unknown) (unknown) (no date) (unknown) (unknown) Sodium 134 L (units unknown) (unknown) (unknown) (no date) (unknown) (unknown) Stand Alone Forms: Patient Portal/API, Stroke Signs + Symptoms, Work/Release (units unknown) (unknown) (unknown) (no date) (unknown) (unknown) Status post appendectomy (units unknown) (unknown) (unknown) (no date) (unknown) (unknown) Delonte Trevino MD (units unknown) (unknown) (unknown) (no date) (unknown) (unknown) Summary (units unknown) (unknown) (unknown) (no date) (unknown) (unknown) Surgical History (units unknown) (unknown) (unknown) (no date) (unknown) (unknown) Time Patient Seen: 01:17 (units unknown) (unknown) (unknown) (no date) (unknown) (unknown) Time Spent with Patient (units unknown) (unknown) (unknown) (no date) (unknown) (unknown) Time spent: Greater than 30 minutes (units unknown) (unknown) (unknown) (no date) (unknown) (unknown) Visit Report/Discharge Packet (units unknown) (unknown) (unknown) (no date) (unknown) (unknown) Vital Signs (units unknown) (unknown) (unknown) (no date) (unknown) (unknown) WBC 6.8 (units unknown) (unknown) (unknown) (no date) (unknown) (unknown) WBC (units unknown) (unknown) (unknown) (no date) (unknown) (unknown) [Embedded Image Not Available] (units unknown) (unknown) (unknown) (no date) (unknown) (unknown) admitted for lactic acidosis sepsis without shock, due to UTI/pyelonephritis. (units unknown) (unknown) (unknown) (no date) (unknown) (unknown) alcohol intake: never (units unknown) (unknown) (unknown) (no date) (unknown) (unknown) antibiotics was unable to keep them down and failed oral challenge in ED. (units unknown) (unknown) (unknown) (no date) (unknown) (unknown) antibiotics/antiemet i cs was unable to fill them as the pharmacies were closed (units unknown) (unknown) (unknown) (no date) (unknown) (unknown) attitude thought context and judgment are appropriate for age. (units unknown) (unknown) (unknown) (no date) (unknown) (unknown) constipation, incontinence, melena, rashes, recent changes to medication, (units unknown) (unknown) (unknown) (no date) (unknown) (unknown) deformity, crepitus, effusions, cyanosis, clubbing or edema present.? Full range (units unknown) (unknown) (unknown) (no date) (unknown) (unknown) distress. Somnolent. (units unknown) (unknown) (unknown) (no date) (unknown) (unknown) exposure to illness, abdominal pain, nausea, vomiting, urinary (units unknown) (unknown) (unknown) (no date) (unknown) (unknown) from ED, blood cultures obtained tonight-pending. COVID not ordered. Patient (units unknown) (unknown) (unknown) (no date) (unknown) (unknown) guarding or rebound, positive CVA tenderness. (units unknown) (unknown) (unknown) (no date) (unknown) (unknown) household members: spouse (units unknown) (unknown) (unknown) (no date) (unknown) (unknown) illness, injury, or trauma. (units unknown) (unknown) (unknown) (no date) (unknown) (unknown) incontinence/retenti o n, dysuria, frequency, urgency, hematuria, bowel changes, (units unknown) (unknown) (unknown) (no date) (unknown) (unknown) insulin aspart U-100 [Novolog U-100 Insulin aspart] 100 unit/mL solution (units unknown) (unknown) (unknown) (no date) (unknown) (unknown) lorazepam [Ativan] 1 mg tablet (units unknown) (unknown) (unknown) (no date) (unknown) (unknown) meets SIRS severe sepsis criteria, H+H 11.4/34.9, MCV 78, MCH 25.5. Hypokalemia (units unknown) (unknown) (unknown) (no date) (unknown) (unknown) metoclopramide HCl 5 mg/5 mL solution (units unknown) (unknown) (unknown) (no date) (unknown) (unknown) midline. (units unknown) (unknown) (unknown) (no date) (unknown) (unknown) of motion intact radial and pedal pulses are normal. (units unknown) (unknown) (unknown) (no date) (unknown) (unknown) organomegaly, or masses.? Bowel sounds are present in all 4 quadrants without (units unknown) (unknown) (unknown) (no date) (unknown) (unknown) patient in ED had a BP of 123/77 but was tachycardic HR 111, tachypneic RR 21. (units unknown) (unknown) (unknown) (no date) (unknown) (unknown) per pump (units unknown) (unknown) (unknown) (no date) (unknown) (unknown) potassium 3.3, bicar b 19, glucose 92, ketones 5.09, anion gap 20, not in DKA (units unknown) (unknown) (unknown) (no date) (unknown) (unknown) promethazine 12.5 mg tablet (units unknown) (unknown) (unknown) (no date) (unknown) (unknown) promethazine [Promethegan] 25 mg suppository (units unknown) (unknown) (unknown) (no date) (unknown) (unknown) return to the ED thi s morning was treated once again discharged home returned (units unknown) (unknown) (unknown) (no date) (unknown) (unknown) saturation 99% on room air WBC 18.1, neutrophils 14,000, lactate 2.3 patient (units unknown) (unknown) (unknown) (no date) (unknown) (unknown) sulfamethoxazole-tri m ethoprim [Bactrim DS] 800-160 mg tablet (units unknown) (unknown) (unknown) (no date) (unknown) (unknown) the ED yesterday for nausea vomiting with UTI, was given prescription for (units unknown) (unknown) (unknown) (no date) (unknown) (unknown) this evening with intractable nausea and vomiting after picking up her (units unknown) (unknown) (unknown) (no date) (unknown) (unknown) to touch intact, no gross deficits noted of cranial nerves. (units unknown) (unknown) (unknown) (no date) (unknown) (unknown) type 1 diabetes, wit h peripheral neuropathy and gastroparesis who presented to (units unknown) (unknown) (unknown) (no date) (unknown) (unknown) use, cannabis hyperemesis syndrome, cyclic vomiting syndrome, GERD, migraines, (units unknown) (unknown) (unknown) (no date) (unknown) (unknown) vision, difficulty swallowing, speech impairment, numbness, tingling, difficulty (units unknown) (unknown) (unknown) (no date) (unknown) (unknown) wheezes, rhonchi, or rales. (units unknown) (unknown) (unknown) (no date) (unknown) (unknown) with ambulation, recent falls, head injury, LOC, fever, chills, cough, recent (units unknown) (unknown) Result panel 1690 (unknown) (no date) (unknown) (unknown) (no value) (units unknown) (unknown) (unknown) (no date) (unknown) (unknown) NO GROWTH AFTER 5 DAYS (units unknown) (unknown) Result panel 1691 (unknown) (no date) (unknown) (unknown) (no value) (units unknown) (unknown) (unknown) (no date) (unknown) (unknown) NO GROWTH AFTER 5 DAYS (units unknown) (unknown) Result panel 1692 (unknown) (no date) (unknown) (unknown) (no value) (units unknown) (unknown) (unknown) (no date) (unknown) (unknown) #: [id number] (units unknown) (unknown) (unknown) (no date) (unknown) (unknown) (DME) insulin syringes (disposable) 1 mL syringe (units unknown) (unknown) (unknown) (no date) (unknown) (unknown) (past 8 hours): (units unknown) (unknown) (unknown) (no date) (unknown) (unknown) Discharges patien t from system. (units unknown) (unknown) (unknown) (no date) (unknown) (unknown) -A1c 7.6% (units unknown) (unknown) (unknown) (no date) (unknown) (unknown) -BMI 22.8 (units unknown) (unknown) (unknown) (no date) (unknown) (unknown) -BMP on 08/13 with bicarb 9, ketones positive and pH 7.2 so started on insulin (units unknown) (unknown) (unknown) (no date) (unknown) (unknown) -BNP q.4 hours (units unknown) (unknown) (unknown) (no date) (unknown) (unknown) -Haldol 0.5 IV PRN i n addition to Phenergan suppositories, IV Zofran and reglan (units unknown) (unknown) (unknown) (no date) (unknown) (unknown) -QT 438 (units unknown) (unknown) (unknown) (no date) (unknown) (unknown) -admitted under diabetic protocols, sliding scale for coverage, patient normally (units unknown) (unknown) (unknown) (no date) (unknown) (unknown) -antiemetics, pain control (units unknown) (unknown) (unknown) (no date) (unknown) (unknown) -cultures growing E. coli so changed to rocephin 1g daily x3 days (units unknown) (unknown) (unknown) (no date) (unknown) (unknown) -dietary consult ordered to evaluate and implement steps to improve caloric (units unknown) (unknown) (unknown) (no date) (unknown) (unknown) -initiated for complicated sepsis UTI meropenem and vancomycin (per up-to date) (units unknown) (unknown) (unknown) (no date) (unknown) (unknown) -last A1c 01/31/2022 6.3 -reviewed endocrinology notes (units unknown) (unknown) (unknown) (no date) (unknown) (unknown) -now back on insulin drip to close gap, will wean off when patient tolerating po (units unknown) (unknown) (unknown) (no date) (unknown) (unknown) -patient's malnutrition places them at high risk for medical and surgical (units unknown) (unknown) (unknown) (no date) (unknown) (unknown) -potassium 3.3 on admission (units unknown) (unknown) (unknown) (no date) (unknown) (unknown) -potassium goal: 4-5 (units unknown) (unknown) (unknown) (no date) (unknown) (unknown) -still having troubl e with NV (units unknown) (unknown) (unknown) (no date) (unknown) (unknown) -transitioned to lantus 20u BID, but gap went back up to 21 (units unknown) (unknown) (unknown) (no date) (unknown) (unknown) -weaned off insulin drip on 08/14 after gap closed to 6 (units unknown) (unknown) (unknown) (no date) (unknown) (unknown) 02:24 02:24 06:26 (units unknown) (unknown) (unknown) (no date) (unknown) (unknown) 08/12/22 00:49 (units unknown) (unknown) (unknown) (no date) (unknown) (unknown) 08/12/22 01:19 (units unknown) (unknown) (unknown) (no date) (unknown) (unknown) 08/13/22 07:45 (units unknown) (unknown) (unknown) (no date) (unknown) (unknown) 08/15/22 08:40 (units unknown) (unknown) (unknown) (no date) (unknown) (unknown) 08/16/22 08/16/22 08/16/22 (units unknown) (unknown) (unknown) (no date) (unknown) (unknown) 08/16/22 06:26 (units unknown) (unknown) (unknown) (no date) (unknown) (unknown) 08/16/22 (units unknown) (unknown) (unknown) (no date) (unknown) (unknown) 06:26 (units unknown) (unknown) (unknown) (no date) (unknown) (unknown) 1 mg PO TID PRN (Reason: anxiety) Qty: 4 0RF (units unknown) (unknown) (unknown) (no date) (unknown) (unknown) 1 tab PO Q12H 10 Day s Qty: 20 0RF (units unknown) (unknown) (unknown) (no date) (unknown) (unknown) 1. Lactic acidosis sepsis (metabolic) without septic shock due to (units unknown) (unknown) (unknown) (no date) (unknown) (unknown) 2. DKA 2/2 insulin-dependent type 1 diabetic with peripheral neuropathy and (units unknown) (unknown) (unknown) (no date) (unknown) (unknown) 25 mg PO BID PRN (Reason: nausea and vomiting) (units unknown) (unknown) (unknown) (no date) (unknown) (unknown) 25 mg PA Q4-6H PRN (Reason: Nausea And Vomiting) Qty: 12 0RF (units unknown) (unknown) (unknown) (no date) (unknown) (unknown) 3. Hypokalemia, acute, secondary to volume loss N/V, present on admission (units unknown) (unknown) (unknown) (no date) (unknown) (unknown) 4. Malnutrition, mild, acute on chronic, present on admission (units unknown) (unknown) (unknown) (no date) (unknown) (unknown) 5 mg PO Q8H PRN (Reason: Nausea) (units unknown) (unknown) (unknown) (no date) (unknown) (unknown) 56 unit SUBCUT DAILY (units unknown) (unknown) (unknown) (no date) (unknown) (unknown) Abdomen:? Soft diffuse generalized minimal tenderness, negative for (units unknown) (unknown) (unknown) (no date) (unknown) (unknown) Age/Sex: 27 / F (units unknown) (unknown) (unknown) (no date) (unknown) (unknown) Anemia (units unknown) (unknown) (unknown) (no date) (unknown) (unknown) As directed for use with insulin injections (units unknown) (unknown) (unknown) (no date) (unknown) (unknown) At the time of admit patient's vitals temp 98.3?, BP 143/83, HR 123, R 24, O2 (units unknown) (unknown) (unknown) (no date) (unknown) (unknown) BUN < 2 L (units unknown) (unknown) (unknown) (no date) (unknown) (unknown) BUN/Creatinine Ratio 4.5 L (units unknown) (unknown) (unknown) (no date) (unknown) (unknown) BUN/Creatinine Ratio 4.9 L (units unknown) (unknown) (unknown) (no date) (unknown) (unknown) Baso # (Auto) 0 (units unknown) (unknown) (unknown) (no date) (unknown) (unknown) Baso # (Auto) (units unknown) (unknown) (unknown) (no date) (unknown) (unknown) Baso % (Auto) 0.6 (units unknown) (unknown) (unknown) (no date) (unknown) (unknown) Baso % (Auto) (units unknown) (unknown) (unknown) (no date) (unknown) (unknown) Calcium 7.9 L (units unknown) (unknown) (unknown) (no date) (unknown) (unknown) Calcium 8.0 L (units unknown) (unknown) (unknown) (no date) (unknown) (unknown) Cannabis hyperemesis syndrome concurrent with and due to cannabis dependence (units unknown) (unknown) (unknown) (no date) (unknown) (unknown) Carbon Dioxide 27 (units unknown) (unknown) (unknown) (no date) (unknown) (unknown) Carbon Dioxide 28 (units unknown) (unknown) (unknown) (no date) (unknown) (unknown) Cardio:? regular rat e and rhythm with no extra sounds or murmurs. (units unknown) (unknown) (unknown) (no date) (unknown) (unknown) Chest:? Breathing without nasal flaring, retractions, or labored, no tachypneic (units unknown) (unknown) (unknown) (no date) (unknown) (unknown) Chief complaint: vomiting, back pain was seen earlier today (units unknown) (unknown) (unknown) (no date) (unknown) (unknown) Chloride 98 (units unknown) (unknown) (unknown) (no date) (unknown) (unknown) Chloride 99 (units unknown) (unknown) (unknown) (no date) (unknown) (unknown) Comment: (units unknown) (unknown) (unknown) (no date) (unknown) (unknown) Consult to Dietitian , Adult Routine (units unknown) (unknown) (unknown) (no date) (unknown) (unknown) Consult to Dietitian , Adult Urgent (units unknown) (unknown) (unknown) (no date) (unknown) (unknown) 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 (units unknown) (unknown) (unknown) (no date) (unknown) (unknown) Consulting Provider: Rachel [employer]ens[employer] (units unknown) (unknown) (unknown) (no date) (unknown) (unknown) Consults: (units unknown) (unknown) (unknown) (no date) (unknown) (unknown) Continued (units unknown) (unknown) (unknown) (no date) (unknown) (unknown) Creatinine 0.41 L (units unknown) (unknown) (unknown) (no date) (unknown) (unknown) Creatinine 0.44 L (units unknown) (unknown) (unknown) (no date) (unknown) (unknown) Cyclic vomiting syndrome (units unknown) (unknown) (unknown) (no date) (unknown) (unknown) DKA (diabetic ketoacidoses) (units unknown) (unknown) (unknown) (no date) (unknown) (unknown) : 1995 Acct:[id number] (units unknown) (unknown) (unknown) (no date) (unknown) (unknown) Date Patient Seen: 08/12/22 (units unknown) (unknown) (unknown) (no date) (unknown) (unknown) Date of Service: 08/13/22 (units unknown) (unknown) (unknown) (no date) (unknown) (unknown) Date of admission: (units unknown) (unknown) (unknown) (no date) (unknown) (unknown) Diabetes mellitus, type I (units unknown) (unknown) (unknown) (no date) (unknown) (unknown) Discharge Data (units unknown) (unknown) (unknown) (no date) (unknown) (unknown) Discharge Date/Time: 08/16/22 12:30 (units unknown) (unknown) (unknown) (no date) (unknown) (unknown) Discharge Date: 08/16/22 (units unknown) (unknown) (unknown) (no date) (unknown) (unknown) Discharge Diagnosis: (units unknown) (unknown) (unknown) (no date) (unknown) (unknown) Discharge Plan (units unknown) (unknown) (unknown) (no date) (unknown) (unknown) Discharge Providers (units unknown) (unknown) (unknown) (no date) (unknown) (unknown) Discharge Summary (units unknown) (unknown) (unknown) (no date) (unknown) (unknown) Discharge orders + Medications (units unknown) (unknown) (unknown) (no date) (unknown) (unknown) Discharge provider: (units unknown) (unknown) (unknown) (no date) (unknown) (unknown) Discontinued (units unknown) (unknown) (unknown) (no date) (unknown) (unknown) Eos # (Auto) 0 (units unknown) (unknown) (unknown) (no date) (unknown) (unknown) Eos # (Auto) (units unknown) (unknown) (unknown) (no date) (unknown) (unknown) Eos % (Auto) 0.0 L (units unknown) (unknown) (unknown) (no date) (unknown) (unknown) Eos % (Auto) (units unknown) (unknown) (unknown) (no date) (unknown) (unknown) Estimated GFR > 60 (units unknown) (unknown) (unknown) (no date) (unknown) (unknown) Exam Narrative: (units unknown) (unknown) (unknown) (no date) (unknown) (unknown) Exam (units unknown) (unknown) (unknown) (no date) (unknown) (unknown) Family History (units unknown) (unknown) (unknown) (no date) (unknown) (unknown) Father Healthy adult (units unknown) (unknown) (unknown) (no date) (unknown) (unknown) Follow up/Referrals: (units unknown) (unknown) (unknown) (no date) (unknown) (unknown) Gastroparesis (units unknown) (unknown) (unknown) (no date) (unknown) (unknown) General:? Patient is a well-developed, well-nourished in no acute medical (units unknown) (unknown) (unknown) (no date) (unknown) (unknown) Glucose 145 H (units unknown) (unknown) (unknown) (no date) (unknown) (unknown) Glucose 96 (units unknown) (unknown) (unknown) (no date) (unknown) (unknown) HEENT:? Normocephalic, atraumatic, extraocular muscles intact. Trachea is (units unknown) (unknown) (unknown) (no date) (unknown) (unknown) Hct 27.0 L (units unknown) (unknown) (unknown) (no date) (unknown) (unknown) Hct (units unknown) (unknown) (unknown) (no date) (unknown) (unknown) Hgb 9.1 L (units unknown) (unknown) (unknown) (no date) (unknown) (unknown) Hgb (units unknown) (unknown) (unknown) (no date) (unknown) (unknown) History of Present Illness (units unknown) (unknown) (unknown) (no date) (unknown) (unknown) Delonte Trevino MD [Primary Care Provider] - 2 Weeks (units unknown) (unknown) (unknown) (no date) (unknown) (unknown) Hospital Course (units unknown) (unknown) (unknown) (no date) (unknown) (unknown) Insulin dependent diabetes mellitus (units unknown) (unknown) (unknown) (no date) (unknown) (unknown) [address] [address] (units unknown) (unknown) (unknown) (no date) (unknown) (unknown) Kaur Morris is 27-year-old female daily smoker (vaping), hx of marijuana daily (units unknown) (unknown) (unknown) (no date) (unknown) (unknown) Laboratory Results - last 24 hr (units unknown) (unknown) (unknown) (no date) (unknown) (unknown) Labs (units unknown) (unknown) (unknown) (no date) (unknown) (unknown) Labs: (units unknown) (unknown) (unknown) (no date) (unknown) (unknown) Lungs:? Auscultation of all lung hendricks are clear without adventitious sounds, (units unknown) (unknown) (unknown) (no date) (unknown) (unknown) Lymph # (Auto) 3800 (units unknown) (unknown) (unknown) (no date) (unknown) (unknown) Lymph # (Auto) (units unknown) (unknown) (unknown) (no date) (unknown) (unknown) Lymph % (Auto) 55.4 H D (units unknown) (unknown) (unknown) (no date) (unknown) (unknown) Lymph % (Auto) (units unknown) (unknown) (unknown) (no date) (unknown) (unknown) MCH 26.1 (units unknown) (unknown) (unknown) (no date) (unknown) (unknown) MCH (units unknown) (unknown) (unknown) (no date) (unknown) (unknown) MCHC 33.8 (units unknown) (unknown) (unknown) (no date) (unknown) (unknown) MCHC (units unknown) (unknown) (unknown) (no date) (unknown) (unknown) MCV 77.4 L (units unknown) (unknown) (unknown) (no date) (unknown) (unknown) MCV (units unknown) (unknown) (unknown) (no date) (unknown) (unknown) Alonzo Parikh Leana, DO (units unknown) (unknown) (unknown) (no date) (unknown) (unknown) Medical History (Updated 08/12/22 @ 02:17 by Gracia Smith, [facility]) (units unknown) (unknown) (unknown) (no date) (unknown) (unknown) Migraine headache with aura (units unknown) (unknown) (unknown) (no date) (unknown) (unknown) O'Brien # (Auto) 800 (units unknown) (unknown) (unknown) (no date) (unknown) (unknown) O'Brien # (Auto) (units unknown) (unknown) (unknown) (no date) (unknown) (unknown) O'Brien % (Auto) 11.7 (units unknown) (unknown) (unknown) (no date) (unknown) (unknown) O'Brien % (Auto) (units unknown) (unknown) (unknown) (no date) (unknown) (unknown) Mother Hypertension (units unknown) (unknown) (unknown) (no date) (unknown) (unknown) Musculoskeletal:? Muscle strength and tone are equal within normal limits, no (units unknown) (unknown) (unknown) (no date) (unknown) (unknown) Myopia (units unknown) (unknown) (unknown) (no date) (unknown) (unknown) Narrative (units unknown) (unknown) (unknown) (no date) (unknown) (unknown) Narrative: (units unknown) (unknown) (unknown) (no date) (unknown) (unknown) Neuro:? Alert and orientated x3, strength is +5/5 in all extremities, sensation (units unknown) (unknown) (unknown) (no date) (unknown) (unknown) Neut # (Auto) 2200 (units unknown) (unknown) (unknown) (no date) (unknown) (unknown) Neut # (Auto) (units unknown) (unknown) (unknown) (no date) (unknown) (unknown) Neut % (Auto) 32.3 L D (units unknown) (unknown) (unknown) (no date) (unknown) (unknown) Neut % (Auto) (units unknown) (unknown) (unknown) (no date) (unknown) (unknown) New (units unknown) (unknown) (unknown) (no date) (unknown) (unknown) Objective (units unknown) (unknown) (unknown) (no date) (unknown) (unknown) On admit patient denies chest pain, shortness in breath, headache, changes in (units unknown) (unknown) (unknown) (no date) (unknown) (unknown) Oxygen Delivery Method Room Air (units unknown) (unknown) (unknown) (no date) (unknown) (unknown) Oxygen Flow Rate 0 (units unknown) (unknown) (unknown) (no date) (unknown) (unknown) PFSH (units unknown) (unknown) (unknown) (no date) (unknown) (unknown) Pancreatitis (units unknown) (unknown) (unknown) (no date) (unknown) (unknown) Patient Disposition: Home (units unknown) (unknown) (unknown) (no date) (unknown) (unknown) Patient's urine was positive for UTI and urine cultures were collected yesterday (units unknown) (unknown) (unknown) (no date) (unknown) (unknown) Patient: Kaur Horton MR (units unknown) (unknown) (unknown) (no date) (unknown) (unknown) Phosphorus 1.2 L (units unknown) (unknown) (unknown) (no date) (unknown) (unknown) Phosphorus (units unknown) (unknown) (unknown) (no date) (unknown) (unknown) Plt Count 275 (units unknown) (unknown) (unknown) (no date) (unknown) (unknown) Plt Count (units unknown) (unknown) (unknown) (no date) (unknown) (unknown) Potassium 3.4 (units unknown) (unknown) (unknown) (no date) (unknown) (unknown) Potassium 3.7 (units unknown) (unknown) (unknown) (no date) (unknown) (unknown) Prescriptions: (units unknown) (unknown) (unknown) (no date) (unknown) (unknown) Primary Care Provider: Delonte Trevino (units unknown) (unknown) (unknown) (no date) (unknown) (unknown) Primary care physician: (units unknown) (unknown) (unknown) (no date) (unknown) (unknown) Provider (units unknown) (unknown) (unknown) (no date) (unknown) (unknown) Provider: Alonzo Dueñas D.O. (units unknown) (unknown) (unknown) (no date) (unknown) (unknown) Psych:? Patient has a well-kept appearance, appropriate affect, mental status (units unknown) (unknown) (unknown) (no date) (unknown) (unknown) RBC 3.50 L (units unknown) (unknown) (unknown) (no date) (unknown) (unknown) RBC (units unknown) (unknown) (unknown) (no date) (unknown) (unknown) RDW 16.5 H (units unknown) (unknown) (unknown) (no date) (unknown) (unknown) RDW (units unknown) (unknown) (unknown) (no date) (unknown) (unknown) Reason For Exam: DM type1, BMI 23 (units unknown) (unknown) (unknown) (no date) (unknown) (unknown) Reason For Exam: MNA score = 11 (units unknown) (unknown) (unknown) (no date) (unknown) (unknown) 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 Warm dry and intact without rashes, ulcerations or petechiae.? (units unknown) (unknown) (unknown) (no date) (unknown) (unknown) Smoking Status: Current every day smoker (units unknown) (unknown) (unknown) (no date) (unknown) (unknown) Social History (units unknown) (unknown) (unknown) (no date) (unknown) (unknown) Sodium 131 L (units unknown) (unknown) (unknown) (no date) (unknown) (unknown) Sodium 134 L (units unknown) (unknown) (unknown) (no date) (unknown) (unknown) Stand Alone Forms: Patient Portal/API, Stroke Signs + Symptoms, Work/Release (units unknown) (unknown) (unknown) (no date) (unknown) (unknown) Status post appendectomy (units unknown) (unknown) (unknown) (no date) (unknown) (unknown) Delonte Trevino MD (units unknown) (unknown) (unknown) (no date) (unknown) (unknown) Summary (units unknown) (unknown) (unknown) (no date) (unknown) (unknown) Surgical History (units unknown) (unknown) (unknown) (no date) (unknown) (unknown) Time Patient Seen: 01:17 (units unknown) (unknown) (unknown) (no date) (unknown) (unknown) Time Spent with Patient (units unknown) (unknown) (unknown) (no date) (unknown) (unknown) Time spent: Greater than 30 minutes (units unknown) (unknown) (unknown) (no date) (unknown) (unknown) UTI/pyelonephritis, with intractable nausea vomiting, acute, present on (units unknown) (unknown) (unknown) (no date) (unknown) (unknown) Visit Report/Discharge Packet (units unknown) (unknown) (unknown) (no date) (unknown) (unknown) Vital Signs (units unknown) (unknown) (unknown) (no date) (unknown) (unknown) WBC 6.8 (units unknown) (unknown) (unknown) (no date) (unknown) (unknown) WBC (units unknown) (unknown) (unknown) (no date) (unknown) (unknown) [Embedded Image Not Available] (units unknown) (unknown) (unknown) (no date) (unknown) (unknown) admission, improving (units unknown) (unknown) (unknown) (no date) (unknown) (unknown) admitted for lactic acidosis sepsis without shock, due to UTI/pyelonephritis. (units unknown) (unknown) (unknown) (no date) (unknown) (unknown) alcohol intake: never (units unknown) (unknown) (unknown) (no date) (unknown) (unknown) antibiotics was unable to keep them down and failed oral challenge in ED. (units unknown) (unknown) (unknown) (no date) (unknown) (unknown) antibiotics/antiemet i cs was unable to fill them as the pharmacies were closed (units unknown) (unknown) (unknown) (no date) (unknown) (unknown) as needed (units unknown) (unknown) (unknown) (no date) (unknown) (unknown) attitude thought context and judgment are appropriate for age. (units unknown) (unknown) (unknown) (no date) (unknown) (unknown) complications in relation to acute illness/chronic illness.? This increases the (units unknown) (unknown) (unknown) (no date) (unknown) (unknown) constipation, incontinence, melena, rashes, recent changes to medication, (units unknown) (unknown) (unknown) (no date) (unknown) (unknown) deformity, crepitus, effusions, cyanosis, clubbing or edema present.? Full range (units unknown) (unknown) (unknown) (no date) (unknown) (unknown) difficulty in complexity of medical management and increases the chances poor (units unknown) (unknown) (unknown) (no date) (unknown) (unknown) distress. Somnolent. (units unknown) (unknown) (unknown) (no date) (unknown) (unknown) drip for DKA (units unknown) (unknown) (unknown) (no date) (unknown) (unknown) exposure to illness, abdominal pain, nausea, vomiting, urinary (units unknown) (unknown) (unknown) (no date) (unknown) (unknown) from ED, blood cultures obtained tonight-pending. COVID not ordered. Patient (units unknown) (unknown) (unknown) (no date) (unknown) (unknown) gastroparesis, chronic, present on admission (units unknown) (unknown) (unknown) (no date) (unknown) (unknown) guarding or rebound, positive CVA tenderness. (units unknown) (unknown) (unknown) (no date) (unknown) (unknown) household members: spouse (units unknown) (unknown) (unknown) (no date) (unknown) (unknown) illness, injury, or trauma. (units unknown) (unknown) (unknown) (no date) (unknown) (unknown) immune suppression. (units unknown) (unknown) (unknown) (no date) (unknown) (unknown) incontinence/retenti o n, dysuria, frequency, urgency, hematuria, bowel changes, (units unknown) (unknown) (unknown) (no date) (unknown) (unknown) insulin aspart U-100 [Novolog U-100 Insulin aspart] 100 unit/mL solution (units unknown) (unknown) (unknown) (no date) (unknown) (unknown) intake and nutrition. (units unknown) (unknown) (unknown) (no date) (unknown) (unknown) intake (units unknown) (unknown) (unknown) (no date) (unknown) (unknown) lorazepam [Ativan] 1 mg tablet (units unknown) (unknown) (unknown) (no date) (unknown) (unknown) meets SIRS severe sepsis criteria, H+H 11.4/34.9, MCV 78, MCH 25.5. Hypokalemia (units unknown) (unknown) (unknown) (no date) (unknown) (unknown) metoclopramide HCl 5 mg/5 mL solution (units unknown) (unknown) (unknown) (no date) (unknown) (unknown) midline. (units unknown) (unknown) (unknown) (no date) (unknown) (unknown) of motion intact radial and pedal pulses are normal. (units unknown) (unknown) (unknown) (no date) (unknown) (unknown) organomegaly, or masses.? Bowel sounds are present in all 4 quadrants without (units unknown) (unknown) (unknown) (no date) (unknown) (unknown) outcomes such as mortality and morbidity as well as impaired wound healing, and (units unknown) (unknown) (unknown) (no date) (unknown) (unknown) patient in ED had a BP of 123/77 but was tachycardic HR 111, tachypneic RR 21. (units unknown) (unknown) (unknown) (no date) (unknown) (unknown) per pump (units unknown) (unknown) (unknown) (no date) (unknown) (unknown) potassium 3.3, bicar b 19, glucose 92, ketones 5.09, anion gap 20, not in DKA (units unknown) (unknown) (unknown) (no date) (unknown) (unknown) promethazine 12.5 mg tablet (units unknown) (unknown) (unknown) (no date) (unknown) (unknown) promethazine [Promethegan] 25 mg suppository (units unknown) (unknown) (unknown) (no date) (unknown) (unknown) return to the ED thi s morning was treated once again discharged home returned (units unknown) (unknown) (unknown) (no date) (unknown) (unknown) saturation 99% on room air WBC 18.1, neutrophils 14,000, lactate 2.3 patient (units unknown) (unknown) (unknown) (no date) (unknown) (unknown) sulfamethoxazole-tri m ethoprim [Bactrim DS] 800-160 mg tablet (units unknown) (unknown) (unknown) (no date) (unknown) (unknown) the ED yesterday for nausea vomiting with UTI, was given prescription for (units unknown) (unknown) (unknown) (no date) (unknown) (unknown) this evening with intractable nausea and vomiting after picking up her (units unknown) (unknown) (unknown) (no date) (unknown) (unknown) to touch intact, no gross deficits noted of cranial nerves. (units unknown) (unknown) (unknown) (no date) (unknown) (unknown) type 1 diabetes, wit h peripheral neuropathy and gastroparesis who presented to (units unknown) (unknown) (unknown) (no date) (unknown) (unknown) use, cannabis hyperemesis syndrome, cyclic vomiting syndrome, GERD, migraines, (units unknown) (unknown) (unknown) (no date) (unknown) (unknown) vision, difficulty swallowing, speech impairment, numbness, tingling, difficulty (units unknown) (unknown) (unknown) (no date) (unknown) (unknown) wears an insulin pum p was discontinued per hospital policy. (units unknown) (unknown) (unknown) (no date) (unknown) (unknown) wheezes, rhonchi, or rales. (units unknown) (unknown) (unknown) (no date) (unknown) (unknown) with ambulation, recent falls, head injury, LOC, fever, chills, cough, recent (units unknown) (unknown) Result panel [id number] (unknown) (no date) (unknown) (unknown) (no value) (units unknown) (unknown) (unknown) (no date) (unknown) (unknown) #: [id number] (units unknown) (unknown) (unknown) (no date) (unknown) (unknown) (DME) insulin syringes (disposable) 1 mL syringe (units unknown) (unknown) (unknown) (no date) (unknown) (unknown) (past 8 hours): (units unknown) (unknown) (unknown) (no date) (unknown) (unknown) Discharges patien t from system. (units unknown) (unknown) (unknown) (no date) (unknown) (unknown) -A1c 7.6% (units unknown) (unknown) (unknown) (no date) (unknown) (unknown) -BMI 22.8 (units unknown) (unknown) (unknown) (no date) (unknown) (unknown) -BMP on 08/13 with bicarb 9, ketones positive and pH 7.2 so started on insulin (units unknown) (unknown) (unknown) (no date) (unknown) (unknown) -BNP q.4 hours (units unknown) (unknown) (unknown) (no date) (unknown) (unknown) -Haldol 0.5 IV PRN i n addition to Phenergan suppositories, IV Zofran and reglan (units unknown) (unknown) (unknown) (no date) (unknown) (unknown) -QT 438 (units unknown) (unknown) (unknown) (no date) (unknown) (unknown) -admitted under diabetic protocols, sliding scale for coverage, patient normally (units unknown) (unknown) (unknown) (no date) (unknown) (unknown) -antiemetics, pain control (units unknown) (unknown) (unknown) (no date) (unknown) (unknown) -cultures growing E. coli so changed to rocephin 1g daily x3 days (units unknown) (unknown) (unknown) (no date) (unknown) (unknown) -dietary consult ordered to evaluate and implement steps to improve caloric (units unknown) (unknown) (unknown) (no date) (unknown) (unknown) -gap closed and patient on (units unknown) (unknown) (unknown) (no date) (unknown) (unknown) -initiated for complicated sepsis UTI meropenem and vancomycin (per up-to date) (units unknown) (unknown) (unknown) (no date) (unknown) (unknown) -last A1c 01/31/2022 6.3 -reviewed endocrinology notes (units unknown) (unknown) (unknown) (no date) (unknown) (unknown) -patient NV improved and patient asking for phenergan suppository script at (units unknown) (unknown) (unknown) (no date) (unknown) (unknown) -patient's malnutrition places them at high risk for medical and surgical (units unknown) (unknown) (unknown) (no date) (unknown) (unknown) -potassium 3.3 on admission (units unknown) (unknown) (unknown) (no date) (unknown) (unknown) -potassium goal: 4-5 (units unknown) (unknown) (unknown) (no date) (unknown) (unknown) -transitioned to lantus 20u BID, but gap went back up to 21 requiring restarting (units unknown) (unknown) (unknown) (no date) (unknown) (unknown) -weaned off insulin drip on 08/14 after gap closed to 6 (units unknown) (unknown) (unknown) (no date) (unknown) (unknown) 02:24 02:24 06:26 (units unknown) (unknown) (unknown) (no date) (unknown) (unknown) 08/12/22 00:49 (units unknown) (unknown) (unknown) (no date) (unknown) (unknown) 08/12/22 01:19 (units unknown) (unknown) (unknown) (no date) (unknown) (unknown) 08/13/22 07:45 (units unknown) (unknown) (unknown) (no date) (unknown) (unknown) 08/15/22 08:40 (units unknown) (unknown) (unknown) (no date) (unknown) (unknown) 08/16/22 08/16/22 08/16/22 (units unknown) (unknown) (unknown) (no date) (unknown) (unknown) 08/16/22 06:26 (units unknown) (unknown) (unknown) (no date) (unknown) (unknown) 08/16/22 (units unknown) (unknown) (unknown) (no date) (unknown) (unknown) 06:26 (units unknown) (unknown) (unknown) (no date) (unknown) (unknown) 1 mg PO TID PRN (Reason: anxiety) Qty: 4 0RF (units unknown) (unknown) (unknown) (no date) (unknown) (unknown) 1 tab PO Q12H 10 Day s Qty: 20 0RF (units unknown) (unknown) (unknown) (no date) (unknown) (unknown) 1. Lactic acidosis sepsis (metabolic) without septic shock due to UTI, with (units unknown) (unknown) (unknown) (no date) (unknown) (unknown) 2. DKA 2/2 insulin-dependent type 1 diabetic with peripheral neuropathy and (units unknown) (unknown) (unknown) (no date) (unknown) (unknown) 25 mg PO BID PRN (Reason: nausea and vomiting) (units unknown) (unknown) (unknown) (no date) (unknown) (unknown) 25 mg PA Q4-6H PRN (Reason: Nausea And Vomiting) Qty: 12 0RF (units unknown) (unknown) (unknown) (no date) (unknown) (unknown) 3. Hypokalemia, acute, secondary to volume loss N/V, present on admission (units unknown) (unknown) (unknown) (no date) (unknown) (unknown) 4. Malnutrition, mild, acute on chronic, present on admission (units unknown) (unknown) (unknown) (no date) (unknown) (unknown) 5 mg PO Q8H PRN (Reason: Nausea) (units unknown) (unknown) (unknown) (no date) (unknown) (unknown) 56 unit SUBCUT DAILY (units unknown) (unknown) (unknown) (no date) (unknown) (unknown) Abdomen:? Soft diffuse generalized minimal tenderness, negative for (units unknown) (unknown) (unknown) (no date) (unknown) (unknown) Age/Sex: 27 / F (units unknown) (unknown) (unknown) (no date) (unknown) (unknown) Anemia (units unknown) (unknown) (unknown) (no date) (unknown) (unknown) As directed for use with insulin injections (units unknown) (unknown) (unknown) (no date) (unknown) (unknown) At the time of admit patient's vitals temp 98.3?, BP 143/83, HR 123, R 24, O2 (units unknown) (unknown) (unknown) (no date) (unknown) (unknown) BUN < 2 L (units unknown) (unknown) (unknown) (no date) (unknown) (unknown) BUN/Creatinine Ratio 4.5 L (units unknown) (unknown) (unknown) (no date) (unknown) (unknown) BUN/Creatinine Ratio 4.9 L (units unknown) (unknown) (unknown) (no date) (unknown) (unknown) Baso # (Auto) 0 (units unknown) (unknown) (unknown) (no date) (unknown) (unknown) Baso # (Auto) (units unknown) (unknown) (unknown) (no date) (unknown) (unknown) Baso % (Auto) 0.6 (units unknown) (unknown) (unknown) (no date) (unknown) (unknown) Baso % (Auto) (units unknown) (unknown) (unknown) (no date) (unknown) (unknown) Calcium 7.9 L (units unknown) (unknown) (unknown) (no date) (unknown) (unknown) Calcium 8.0 L (units unknown) (unknown) (unknown) (no date) (unknown) (unknown) Cannabis hyperemesis syndrome concurrent with and due to cannabis dependence (units unknown) (unknown) (unknown) (no date) (unknown) (unknown) Carbon Dioxide 27 (units unknown) (unknown) (unknown) (no date) (unknown) (unknown) Carbon Dioxide 28 (units unknown) (unknown) (unknown) (no date) (unknown) (unknown) Cardio:? regular rat e and rhythm with no extra sounds or murmurs. (units unknown) (unknown) (unknown) (no date) (unknown) (unknown) Chest:? Breathing without nasal flaring, retractions, or labored, no tachypneic (units unknown) (unknown) (unknown) (no date) (unknown) (unknown) Chief complaint: vomiting, back pain was seen earlier today (units unknown) (unknown) (unknown) (no date) (unknown) (unknown) Chloride 98 (units unknown) (unknown) (unknown) (no date) (unknown) (unknown) Chloride 99 (units unknown) (unknown) (unknown) (no date) (unknown) (unknown) Comment: (units unknown) (unknown) (unknown) (no date) (unknown) (unknown) Consult to Dietitian , Adult Routine (units unknown) (unknown) (unknown) (no date) (unknown) (unknown) Consult to Dietitian , Adult Urgent (units unknown) (unknown) (unknown) (no date) (unknown) (unknown) 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 (units unknown) (unknown) (unknown) (no date) (unknown) (unknown) Consulting Provider: Rachel [employer]ens[employer] (units unknown) (unknown) (unknown) (no date) (unknown) (unknown) Consults: (units unknown) (unknown) (unknown) (no date) (unknown) (unknown) Continued (units unknown) (unknown) (unknown) (no date) (unknown) (unknown) Creatinine 0.41 L (units unknown) (unknown) (unknown) (no date) (unknown) (unknown) Creatinine 0.44 L (units unknown) (unknown) (unknown) (no date) (unknown) (unknown) Cyclic vomiting syndrome (units unknown) (unknown) (unknown) (no date) (unknown) (unknown) DKA (diabetic ketoacidoses) (units unknown) (unknown) (unknown) (no date) (unknown) (unknown) : 1995 Acct:[id number] (units unknown) (unknown) (unknown) (no date) (unknown) (unknown) Date Patient Seen: 08/12/22 (units unknown) (unknown) (unknown) (no date) (unknown) (unknown) Date of Service: 08/13/22 (units unknown) (unknown) (unknown) (no date) (unknown) (unknown) Date of admission: (units unknown) (unknown) (unknown) (no date) (unknown) (unknown) Diabetes mellitus, type I (units unknown) (unknown) (unknown) (no date) (unknown) (unknown) Discharge Data (units unknown) (unknown) (unknown) (no date) (unknown) (unknown) Discharge Date/Time: 08/16/22 12:30 (units unknown) (unknown) (unknown) (no date) (unknown) (unknown) Discharge Date: 08/16/22 (units unknown) (unknown) (unknown) (no date) (unknown) (unknown) Discharge Diagnosis: (units unknown) (unknown) (unknown) (no date) (unknown) (unknown) Discharge Plan (units unknown) (unknown) (unknown) (no date) (unknown) (unknown) Discharge Providers (units unknown) (unknown) (unknown) (no date) (unknown) (unknown) Discharge Summary (units unknown) (unknown) (unknown) (no date) (unknown) (unknown) Discharge orders + Medications (units unknown) (unknown) (unknown) (no date) (unknown) (unknown) Discharge provider: (units unknown) (unknown) (unknown) (no date) (unknown) (unknown) Discontinued (units unknown) (unknown) (unknown) (no date) (unknown) (unknown) Eos # (Auto) 0 (units unknown) (unknown) (unknown) (no date) (unknown) (unknown) Eos # (Auto) (units unknown) (unknown) (unknown) (no date) (unknown) (unknown) Eos % (Auto) 0.0 L (units unknown) (unknown) (unknown) (no date) (unknown) (unknown) Eos % (Auto) (units unknown) (unknown) (unknown) (no date) (unknown) (unknown) Estimated GFR > 60 (units unknown) (unknown) (unknown) (no date) (unknown) (unknown) Exam Narrative: (units unknown) (unknown) (unknown) (no date) (unknown) (unknown) Exam (units unknown) (unknown) (unknown) (no date) (unknown) (unknown) Family History (units unknown) (unknown) (unknown) (no date) (unknown) (unknown) Father Healthy adult (units unknown) (unknown) (unknown) (no date) (unknown) (unknown) Follow up/Referrals: (units unknown) (unknown) (unknown) (no date) (unknown) (unknown) Gastroparesis (units unknown) (unknown) (unknown) (no date) (unknown) (unknown) General:? Patient is a well-developed, well-nourished in no acute medical (units unknown) (unknown) (unknown) (no date) (unknown) (unknown) Glucose 145 H (units unknown) (unknown) (unknown) (no date) (unknown) (unknown) Glucose 96 (units unknown) (unknown) (unknown) (no date) (unknown) (unknown) HEENT:? Normocephalic, atraumatic, extraocular muscles intact. Trachea is (units unknown) (unknown) (unknown) (no date) (unknown) (unknown) Hct 27.0 L (units unknown) (unknown) (unknown) (no date) (unknown) (unknown) Hct (units unknown) (unknown) (unknown) (no date) (unknown) (unknown) Hgb 9.1 L (units unknown) (unknown) (unknown) (no date) (unknown) (unknown) Hgb (units unknown) (unknown) (unknown) (no date) (unknown) (unknown) History of Present Illness (units unknown) (unknown) (unknown) (no date) (unknown) (unknown) Delonte Trevino MD [Primary Care Provider] - 2 Weeks (units unknown) (unknown) (unknown) (no date) (unknown) (unknown) Hospital Course (units unknown) (unknown) (unknown) (no date) (unknown) (unknown) Insulin dependent diabetes mellitus (units unknown) (unknown) (unknown) (no date) (unknown) (unknown) [address] [address] (units unknown) (unknown) (unknown) (no date) (unknown) (unknown) Kaur Morris is 27-year-old female daily smoker (vaping), hx of marijuana daily (units unknown) (unknown) (unknown) (no date) (unknown) (unknown) Laboratory Results - last 24 hr (units unknown) (unknown) (unknown) (no date) (unknown) (unknown) Labs (units unknown) (unknown) (unknown) (no date) (unknown) (unknown) Labs: (units unknown) (unknown) (unknown) (no date) (unknown) (unknown) Lungs:? Auscultation of all lung hendricks are clear without adventitious sounds, (units unknown) (unknown) (unknown) (no date) (unknown) (unknown) Lymph # (Auto) 3800 (units unknown) (unknown) (unknown) (no date) (unknown) (unknown) Lymph # (Auto) (units unknown) (unknown) (unknown) (no date) (unknown) (unknown) Lymph % (Auto) 55.4 H D (units unknown) (unknown) (unknown) (no date) (unknown) (unknown) Lymph % (Auto) (units unknown) (unknown) (unknown) (no date) (unknown) (unknown) MCH 26.1 (units unknown) (unknown) (unknown) (no date) (unknown) (unknown) MCH (units unknown) (unknown) (unknown) (no date) (unknown) (unknown) MCHC 33.8 (units unknown) (unknown) (unknown) (no date) (unknown) (unknown) MCHC (units unknown) (unknown) (unknown) (no date) (unknown) (unknown) MCV 77.4 L (units unknown) (unknown) (unknown) (no date) (unknown) (unknown) MCV (units unknown) (unknown) (unknown) (no date) (unknown) (unknown) Alonzo Dueñas, DO (units unknown) (unknown) (unknown) (no date) (unknown) (unknown) Medical History (Updated 08/12/22 @ 02:17 [facility] (units unknown) (unknown) (unknown) (no date) (unknown) (unknown) Migraine headache with aura (units unknown) (unknown) (unknown) (no date) (unknown) (unknown) O'Brien # (Auto) 800 (units unknown) (unknown) (unknown) (no date) (unknown) (unknown) O'Brien # (Auto) (units unknown) (unknown) (unknown) (no date) (unknown) (unknown) O'Brien % (Auto) 11.7 (units unknown) (unknown) (unknown) (no date) (unknown) (unknown) O'Brien % (Auto) (units unknown) (unknown) (unknown) (no date) (unknown) (unknown) Mother Hypertension (units unknown) (unknown) (unknown) (no date) (unknown) (unknown) Musculoskeletal:? Muscle strength and tone are equal within normal limits, no (units unknown) (unknown) (unknown) (no date) (unknown) (unknown) Myopia (units unknown) (unknown) (unknown) (no date) (unknown) (unknown) Narrative (units unknown) (unknown) (unknown) (no date) (unknown) (unknown) Narrative: (units unknown) (unknown) (unknown) (no date) (unknown) (unknown) Neuro:? Alert and orientated x3, strength is +5/5 in all extremities, sensation (units unknown) (unknown) (unknown) (no date) (unknown) (unknown) Neut # (Auto) 2200 (units unknown) (unknown) (unknown) (no date) (unknown) (unknown) Neut # (Auto) (units unknown) (unknown) (unknown) (no date) (unknown) (unknown) Neut % (Auto) 32.3 L D (units unknown) (unknown) (unknown) (no date) (unknown) (unknown) Neut % (Auto) (units unknown) (unknown) (unknown) (no date) (unknown) (unknown) New (units unknown) (unknown) (unknown) (no date) (unknown) (unknown) Objective (units unknown) (unknown) (unknown) (no date) (unknown) (unknown) On admit patient denies chest pain, shortness in breath, headache, changes in (units unknown) (unknown) (unknown) (no date) (unknown) (unknown) Oxygen Delivery Method Room Air (units unknown) (unknown) (unknown) (no date) (unknown) (unknown) Oxygen Flow Rate 0 (units unknown) (unknown) (unknown) (no date) (unknown) (unknown) PFSH (units unknown) (unknown) (unknown) (no date) (unknown) (unknown) Pancreatitis (units unknown) (unknown) (unknown) (no date) (unknown) (unknown) Patient Disposition: Home (units unknown) (unknown) (unknown) (no date) (unknown) (unknown) Patient's urine was positive for UTI and urine cultures were collected yesterday (units unknown) (unknown) (unknown) (no date) (unknown) (unknown) Patient: Kaur Horton MR (units unknown) (unknown) (unknown) (no date) (unknown) (unknown) Phosphorus 1.2 L (units unknown) (unknown) (unknown) (no date) (unknown) (unknown) Phosphorus (units unknown) (unknown) (unknown) (no date) (unknown) (unknown) Plt Count 275 (units unknown) (unknown) (unknown) (no date) (unknown) (unknown) Plt Count (units unknown) (unknown) (unknown) (no date) (unknown) (unknown) Potassium 3.4 (units unknown) (unknown) (unknown) (no date) (unknown) (unknown) Potassium 3.7 (units unknown) (unknown) (unknown) (no date) (unknown) (unknown) Prescriptions: (units unknown) (unknown) (unknown) (no date) (unknown) (unknown) Primary Care Provider: Delonte Trevino (units unknown) (unknown) (unknown) (no date) (unknown) (unknown) Primary care physician: (units unknown) (unknown) (unknown) (no date) (unknown) (unknown) Provider (units unknown) (unknown) (unknown) (no date) (unknown) (unknown) Provider: Alonzo Dueñas D.O. (units unknown) (unknown) (unknown) (no date) (unknown) (unknown) Psych:? Patient has a well-kept appearance, appropriate affect, mental status (units unknown) (unknown) (unknown) (no date) (unknown) (unknown) RBC 3.50 L (units unknown) (unknown) (unknown) (no date) (unknown) (unknown) RBC (units unknown) (unknown) (unknown) (no date) (unknown) (unknown) RDW 16.5 H (units unknown) (unknown) (unknown) (no date) (unknown) (unknown) RDW (units unknown) (unknown) (unknown) (no date) (unknown) (unknown) Reason For Exam: DM type1, BMI 23 (units unknown) (unknown) (unknown) (no date) (unknown) (unknown) Reason For Exam: MNA score = 11 (units unknown) (unknown) (unknown) (no date) (unknown) (unknown) 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 Warm dry and intact without rashes, ulcerations or petechiae.? (units unknown) (unknown) (unknown) (no date) (unknown) (unknown) Smoking Status: Current every day smoker (units unknown) (unknown) (unknown) (no date) (unknown) (unknown) Social History (units unknown) (unknown) (unknown) (no date) (unknown) (unknown) Sodium 131 L (units unknown) (unknown) (unknown) (no date) (unknown) (unknown) Sodium 134 L (units unknown) (unknown) (unknown) (no date) (unknown) (unknown) Stand Alone Forms: Patient Portal/API, Stroke Signs + Symptoms, Work/Release (units unknown) (unknown) (unknown) (no date) (unknown) (unknown) Status post appendectomy (units unknown) (unknown) (unknown) (no date) (unknown) (unknown) Delonte Trevino MD (units unknown) (unknown) (unknown) (no date) (unknown) (unknown) Summary (units unknown) (unknown) (unknown) (no date) (unknown) (unknown) Surgical History (units unknown) (unknown) (unknown) (no date) (unknown) (unknown) Time Patient Seen: 01:17 (units unknown) (unknown) (unknown) (no date) (unknown) (unknown) Time Spent with Patient (units unknown) (unknown) (unknown) (no date) (unknown) (unknown) Time spent: Greater than 30 minutes (units unknown) (unknown) (unknown) (no date) (unknown) (unknown) Visit Report/Discharge Packet (units unknown) (unknown) (unknown) (no date) (unknown) (unknown) Vital Signs (units unknown) (unknown) (unknown) (no date) (unknown) (unknown) WBC 6.8 (units unknown) (unknown) (unknown) (no date) (unknown) (unknown) WBC (units unknown) (unknown) (unknown) (no date) (unknown) (unknown) [Embedded Image Not Available] (units unknown) (unknown) (unknown) (no date) (unknown) (unknown) admitted for lactic acidosis sepsis without shock, due to UTI/pyelonephritis. (units unknown) (unknown) (unknown) (no date) (unknown) (unknown) alcohol intake: never (units unknown) (unknown) (unknown) (no date) (unknown) (unknown) antibiotics was unable to keep them down and failed oral challenge in ED. (units unknown) (unknown) (unknown) (no date) (unknown) (unknown) antibiotics/antiemet i cs was unable to fill them as the pharmacies were closed (units unknown) (unknown) (unknown) (no date) (unknown) (unknown) as needed (units unknown) (unknown) (unknown) (no date) (unknown) (unknown) attitude thought context and judgment are appropriate for age. (units unknown) (unknown) (unknown) (no date) (unknown) (unknown) complications in relation to acute illness/chronic illness.? This increases the (units unknown) (unknown) (unknown) (no date) (unknown) (unknown) constipation, incontinence, melena, rashes, recent changes to medication, (units unknown) (unknown) (unknown) (no date) (unknown) (unknown) deformity, crepitus, effusions, cyanosis, clubbing or edema present.? Full range (units unknown) (unknown) (unknown) (no date) (unknown) (unknown) difficulty in complexity of medical management and increases the chances poor (units unknown) (unknown) (unknown) (no date) (unknown) (unknown) discharge, she has plenty of zofran at home (units unknown) (unknown) (unknown) (no date) (unknown) (unknown) distress. Somnolent. (units unknown) (unknown) (unknown) (no date) (unknown) (unknown) drip for DKA (units unknown) (unknown) (unknown) (no date) (unknown) (unknown) exposure to illness, abdominal pain, nausea, vomiting, urinary (units unknown) (unknown) (unknown) (no date) (unknown) (unknown) from ED, blood cultures obtained tonight-pending. COVID not ordered. Patient (units unknown) (unknown) (unknown) (no date) (unknown) (unknown) gastroparesis, chronic, present on admission (units unknown) (unknown) (unknown) (no date) (unknown) (unknown) guarding or rebound, positive CVA tenderness. (units unknown) (unknown) (unknown) (no date) (unknown) (unknown) household members: spouse (units unknown) (unknown) (unknown) (no date) (unknown) (unknown) illness, injury, or trauma. (units unknown) (unknown) (unknown) (no date) (unknown) (unknown) immune suppression. (units unknown) (unknown) (unknown) (no date) (unknown) (unknown) incontinence/retenti o n, dysuria, frequency, urgency, hematuria, bowel changes, (units unknown) (unknown) (unknown) (no date) (unknown) (unknown) insulin aspart U-100 [Novolog U-100 Insulin aspart] 100 unit/mL solution (units unknown) (unknown) (unknown) (no date) (unknown) (unknown) intake and nutrition. (units unknown) (unknown) (unknown) (no date) (unknown) (unknown) intractable nausea vomiting, acute, present on admission, improving (units unknown) (unknown) (unknown) (no date) (unknown) (unknown) lorazepam [Ativan] 1 mg tablet (units unknown) (unknown) (unknown) (no date) (unknown) (unknown) meets SIRS severe sepsis criteria, H+H 11.4/34.9, MCV 78, MCH 25.5. Hypokalemia (units unknown) (unknown) (unknown) (no date) (unknown) (unknown) metoclopramide HCl 5 mg/5 mL solution (units unknown) (unknown) (unknown) (no date) (unknown) (unknown) midline. (units unknown) (unknown) (unknown) (no date) (unknown) (unknown) of insulin drip (units unknown) (unknown) (unknown) (no date) (unknown) (unknown) of motion intact radial and pedal pulses are normal. (units unknown) (unknown) (unknown) (no date) (unknown) (unknown) organomegaly, or masses.? Bowel sounds are present in all 4 quadrants without (units unknown) (unknown) (unknown) (no date) (unknown) (unknown) outcomes such as mortality and morbidity as well as impaired wound healing, and (units unknown) (unknown) (unknown) (no date) (unknown) (unknown) patient in ED had a BP of 123/77 but was tachycardic HR 111, tachypneic RR 21. (units unknown) (unknown) (unknown) (no date) (unknown) (unknown) per pump (units unknown) (unknown) (unknown) (no date) (unknown) (unknown) potassium 3.3, bicar b 19, glucose 92, ketones 5.09, anion gap 20, not in DKA (units unknown) (unknown) (unknown) (no date) (unknown) (unknown) promethazine 12.5 mg tablet (units unknown) (unknown) (unknown) (no date) (unknown) (unknown) promethazine [Promethegan] 25 mg suppository (units unknown) (unknown) (unknown) (no date) (unknown) (unknown) return to the ED thi s morning was treated once again discharged home returned (units unknown) (unknown) (unknown) (no date) (unknown) (unknown) saturation 99% on room air WBC 18.1, neutrophils 14,000, lactate 2.3 patient (units unknown) (unknown) (unknown) (no date) (unknown) (unknown) sulfamethoxazole-tri m ethoprim [Bactrim DS] 800-160 mg tablet (units unknown) (unknown) (unknown) (no date) (unknown) (unknown) the ED yesterday for nausea vomiting with UTI, was given prescription for (units unknown) (unknown) (unknown) (no date) (unknown) (unknown) this evening with intractable nausea and vomiting after picking up her (units unknown) (unknown) (unknown) (no date) (unknown) (unknown) to touch intact, no gross deficits noted of cranial nerves. (units unknown) (unknown) (unknown) (no date) (unknown) (unknown) type 1 diabetes, wit h peripheral neuropathy and gastroparesis who presented to (units unknown) (unknown) (unknown) (no date) (unknown) (unknown) use, cannabis hyperemesis syndrome, cyclic vomiting syndrome, GERD, migraines, (units unknown) (unknown) (unknown) (no date) (unknown) (unknown) vision, difficulty swallowing, speech impairment, numbness, tingling, difficulty (units unknown) (unknown) (unknown) (no date) (unknown) (unknown) wears an insulin pum p was discontinued per hospital policy. (units unknown) (unknown) (unknown) (no date) (unknown) (unknown) wheezes, rhonchi, or rales. (units unknown) (unknown) (unknown) (no date) (unknown) (unknown) with ambulation, recent falls, head injury, LOC, fever, chills, cough, recent (units unknown) (unknown) Result panel [id number] (unknown) (no date) (unknown) (unknown) (no value) (units unknown) (unknown) (unknown) (no date) (unknown) (unknown) #: [id number] (units unknown) (unknown) (unknown) (no date) (unknown) (unknown) (DME) insulin syringes (disposable) 1 mL syringe (units unknown) (unknown) (unknown) (no date) (unknown) (unknown) (past 8 hours): (units unknown) (unknown) (unknown) (no date) (unknown) (unknown) Discharges patien t from system. (units unknown) (unknown) (unknown) (no date) (unknown) (unknown) -A1c 7.6% (units unknown) (unknown) (unknown) (no date) (unknown) (unknown) -BMI 22.8 (units unknown) (unknown) (unknown) (no date) (unknown) (unknown) -BMP on 08/13 with bicarb 9, ketones positive and pH 7.2 so started on insulin (units unknown) (unknown) (unknown) (no date) (unknown) (unknown) -BNP q.4 hours (units unknown) (unknown) (unknown) (no date) (unknown) (unknown) -Haldol 0.5 IV PRN i n addition to Phenergan suppositories, IV Zofran and reglan (units unknown) (unknown) (unknown) (no date) (unknown) (unknown) -QT 438 (units unknown) (unknown) (unknown) (no date) (unknown) (unknown) -admitted under diabetic protocols, sliding scale for coverage, patient normally (units unknown) (unknown) (unknown) (no date) (unknown) (unknown) -antiemetics, pain control (units unknown) (unknown) (unknown) (no date) (unknown) (unknown) -cultures growing E. coli so changed to rocephin 1g daily x3 days (units unknown) (unknown) (unknown) (no date) (unknown) (unknown) -dietary consult ordered to evaluate and implement steps to improve caloric (units unknown) (unknown) (unknown) (no date) (unknown) (unknown) -gap closed and patient on lantus and now out of DKA (units unknown) (unknown) (unknown) (no date) (unknown) (unknown) -initiated for complicated sepsis UTI meropenem and vancomycin (per up-to date) (units unknown) (unknown) (unknown) (no date) (unknown) (unknown) -last A1c 01/31/2022 6.3 -reviewed endocrinology notes (units unknown) (unknown) (unknown) (no date) (unknown) (unknown) -patient NV improved and patient asking for phenergan suppository script at (units unknown) (unknown) (unknown) (no date) (unknown) (unknown) -patient restarted home insulin pump on discharge (units unknown) (unknown) (unknown) (no date) (unknown) (unknown) -patient's malnutrition places them at high risk for medical and surgical (units unknown) (unknown) (unknown) (no date) (unknown) (unknown) -potassium 3.3 on admission (units unknown) (unknown) (unknown) (no date) (unknown) (unknown) -potassium goal: 4-5 (units unknown) (unknown) (unknown) (no date) (unknown) (unknown) -transitioned to lantus 20u BID, but gap went back up to 21 requiring restarting (units unknown) (unknown) (unknown) (no date) (unknown) (unknown) -weaned off insulin drip on 08/14 after gap closed to 6 (units unknown) (unknown) (unknown) (no date) (unknown) (unknown) 02:24 02:24 06:26 (units unknown) (unknown) (unknown) (no date) (unknown) (unknown) 08/12/22 00:49 (units unknown) (unknown) (unknown) (no date) (unknown) (unknown) 08/12/22 01:19 (units unknown) (unknown) (unknown) (no date) (unknown) (unknown) 08/13/22 07:45 (units unknown) (unknown) (unknown) (no date) (unknown) (unknown) 08/15/22 08:40 (units unknown) (unknown) (unknown) (no date) (unknown) (unknown) 08/16/22 08/16/22 08/16/22 (units unknown) (unknown) (unknown) (no date) (unknown) (unknown) 08/16/22 06:26 (units unknown) (unknown) (unknown) (no date) (unknown) (unknown) 08/16/22 (units unknown) (unknown) (unknown) (no date) (unknown) (unknown) 08/17/22 0754 (units unknown) (unknown) (unknown) (no date) (unknown) (unknown) 06:26 (units unknown) (unknown) (unknown) (no date) (unknown) (unknown) 1 mg PO TID PRN (Reason: anxiety) Qty: 4 0RF (units unknown) (unknown) (unknown) (no date) (unknown) (unknown) 1 tab PO Q12H 10 Day s Qty: 20 0RF (units unknown) (unknown) (unknown) (no date) (unknown) (unknown) 1. Intractable NV secondary to gastroparesis and UTI, acute, present on (units unknown) (unknown) (unknown) (no date) (unknown) (unknown) 2. DKA 2/2 insulin-dependent type 1 diabetic with peripheral neuropathy and (units unknown) (unknown) (unknown) (no date) (unknown) (unknown) 25 mg PO BID PRN (Reason: nausea and vomiting) (units unknown) (unknown) (unknown) (no date) (unknown) (unknown) 25 mg PA Q4-6H PRN (Reason: Nausea And Vomiting) Qty: 12 0RF (units unknown) (unknown) (unknown) (no date) (unknown) (unknown) 3. Hypokalemia, acute, secondary to volume loss N/V, present on admission (units unknown) (unknown) (unknown) (no date) (unknown) (unknown) 4. Malnutrition, mild, acute on chronic, present on admission (units unknown) (unknown) (unknown) (no date) (unknown) (unknown) 5 mg PO Q8H PRN (Reason: Nausea) (units unknown) (unknown) (unknown) (no date) (unknown) (unknown) 56 unit SUBCUT DAILY (units unknown) (unknown) (unknown) (no date) (unknown) (unknown) Abdomen:? Soft diffuse generalized minimal tenderness, negative for (units unknown) (unknown) (unknown) (no date) (unknown) (unknown) Age/Sex: 27 / F (units unknown) (unknown) (unknown) (no date) (unknown) (unknown) Anemia (units unknown) (unknown) (unknown) (no date) (unknown) (unknown) As directed for use with insulin injections (units unknown) (unknown) (unknown) (no date) (unknown) (unknown) At the time of admit patient's vitals temp 98.3?, BP 143/83, HR 123, R 24, O2 (units unknown) (unknown) (unknown) (no date) (unknown) (unknown) BUN < 2 L (units unknown) (unknown) (unknown) (no date) (unknown) (unknown) BUN/Creatinine Ratio 4.5 L (units unknown) (unknown) (unknown) (no date) (unknown) (unknown) BUN/Creatinine Ratio 4.9 L (units unknown) (unknown) (unknown) (no date) (unknown) (unknown) Baso # (Auto) 0 (units unknown) (unknown) (unknown) (no date) (unknown) (unknown) Baso # (Auto) (units unknown) (unknown) (unknown) (no date) (unknown) (unknown) Baso % (Auto) 0.6 (units unknown) (unknown) (unknown) (no date) (unknown) (unknown) Baso % (Auto) (units unknown) (unknown) (unknown) (no date) (unknown) (unknown) Calcium 7.9 L (units unknown) (unknown) (unknown) (no date) (unknown) (unknown) Calcium 8.0 L (units unknown) (unknown) (unknown) (no date) (unknown) (unknown) Cannabis hyperemesis syndrome concurrent with and due to cannabis dependence (units unknown) (unknown) (unknown) (no date) (unknown) (unknown) Carbon Dioxide 27 (units unknown) (unknown) (unknown) (no date) (unknown) (unknown) Carbon Dioxide 28 (units unknown) (unknown) (unknown) (no date) (unknown) (unknown) Cardio:? regular rat e and rhythm with no extra sounds or murmurs. (units unknown) (unknown) (unknown) (no date) (unknown) (unknown) Chest:? Breathing without nasal flaring, retractions, or labored, no tachypneic (units unknown) (unknown) (unknown) (no date) (unknown) (unknown) Chief complaint: vomiting, back pain was seen earlier today (units unknown) (unknown) (unknown) (no date) (unknown) (unknown) Chloride 98 (units unknown) (unknown) (unknown) (no date) (unknown) (unknown) Chloride 99 (units unknown) (unknown) (unknown) (no date) (unknown) (unknown) Comment: (units unknown) (unknown) (unknown) (no date) (unknown) (unknown) Consult to Dietitian , Adult Routine (units unknown) (unknown) (unknown) (no date) (unknown) (unknown) Consult to Dietitian , Adult Urgent (units unknown) (unknown) (unknown) (no date) (unknown) (unknown) 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 (units unknown) (unknown) (unknown) (no date) (unknown) (unknown) Consulting Provider: Rachel [employer] (units unknown) (unknown) (unknown) (no date) (unknown) (unknown) Consults: (units unknown) (unknown) (unknown) (no date) (unknown) (unknown) Continued (units unknown) (unknown) (unknown) (no date) (unknown) (unknown) Creatinine 0.41 L (units unknown) (unknown) (unknown) (no date) (unknown) (unknown) Creatinine 0.44 L (units unknown) (unknown) (unknown) (no date) (unknown) (unknown) Cyclic vomiting syndrome (units unknown) (unknown) (unknown) (no date) (unknown) (unknown) DKA (diabetic ketoacidoses) (units unknown) (unknown) (unknown) (no date) (unknown) (unknown) : 1995 Acct:[id number] (units unknown) (unknown) (unknown) (no date) (unknown) (unknown) Date Patient Seen: 08/12/22 (units unknown) (unknown) (unknown) (no date) (unknown) (unknown) Date of Service: 08/13/22 (units unknown) (unknown) (unknown) (no date) (unknown) (unknown) Date of admission: (units unknown) (unknown) (unknown) (no date) (unknown) (unknown) Diabetes mellitus, type I (units unknown) (unknown) (unknown) (no date) (unknown) (unknown) Discharge Data (units unknown) (unknown) (unknown) (no date) (unknown) (unknown) Discharge Date/Time: 08/16/22 12:30 (units unknown) (unknown) (unknown) (no date) (unknown) (unknown) Discharge Date: 08/16/22 (units unknown) (unknown) (unknown) (no date) (unknown) (unknown) Discharge Diagnosis: (units unknown) (unknown) (unknown) (no date) (unknown) (unknown) Discharge Plan (units unknown) (unknown) (unknown) (no date) (unknown) (unknown) Discharge Providers (units unknown) (unknown) (unknown) (no date) (unknown) (unknown) Discharge Summary (units unknown) (unknown) (unknown) (no date) (unknown) (unknown) Discharge orders + Medications (units unknown) (unknown) (unknown) (no date) (unknown) (unknown) Discharge provider: (units unknown) (unknown) (unknown) (no date) (unknown) (unknown) Discontinued (units unknown) (unknown) (unknown) (no date) (unknown) (unknown) Eos # (Auto) 0 (units unknown) (unknown) (unknown) (no date) (unknown) (unknown) Eos # (Auto) (units unknown) (unknown) (unknown) (no date) (unknown) (unknown) Eos % (Auto) 0.0 L (units unknown) (unknown) (unknown) (no date) (unknown) (unknown) Eos % (Auto) (units unknown) (unknown) (unknown) (no date) (unknown) (unknown) Estimated GFR > 60 (units unknown) (unknown) (unknown) (no date) (unknown) (unknown) Exam Narrative: (units unknown) (unknown) (unknown) (no date) (unknown) (unknown) Exam (units unknown) (unknown) (unknown) (no date) (unknown) (unknown) Family History (units unknown) (unknown) (unknown) (no date) (unknown) (unknown) Father Healthy adult (units unknown) (unknown) (unknown) (no date) (unknown) (unknown) Follow up/Referrals: (units unknown) (unknown) (unknown) (no date) (unknown) (unknown) Gastroparesis (units unknown) (unknown) (unknown) (no date) (unknown) (unknown) General:? Patient is a well-developed, well-nourished in no acute medical (units unknown) (unknown) (unknown) (no date) (unknown) (unknown) Glucose 145 H (units unknown) (unknown) (unknown) (no date) (unknown) (unknown) Glucose 96 (units unknown) (unknown) (unknown) (no date) (unknown) (unknown) HEENT:? Normocephalic, atraumatic, extraocular muscles intact. Trachea is (units unknown) (unknown) (unknown) (no date) (unknown) (unknown) Hct 27.0 L (units unknown) (unknown) (unknown) (no date) (unknown) (unknown) Hct (units unknown) (unknown) (unknown) (no date) (unknown) (unknown) Hgb 9.1 L (units unknown) (unknown) (unknown) (no date) (unknown) (unknown) Hgb (units unknown) (unknown) (unknown) (no date) (unknown) (unknown) History of Present Illness (units unknown) (unknown) (unknown) (no date) (unknown) (unknown) Delonte Trevino MD [Primary Care Provider] - 2 Weeks (units unknown) (unknown) (unknown) (no date) (unknown) (unknown) Hospital Course (units unknown) (unknown) (unknown) (no date) (unknown) (unknown) Insulin dependent diabetes mellitus (units unknown) (unknown) (unknown) (no date) (unknown) (unknown) [address] [address] (units unknown) (unknown) (unknown) (no date) (unknown) (unknown) Kaur Morris is 27-year-old female daily smoker (vaping), hx of marijuana daily (units unknown) (unknown) (unknown) (no date) (unknown) (unknown) Laboratory Results - last 24 hr (units unknown) (unknown) (unknown) (no date) (unknown) (unknown) Labs (units unknown) (unknown) (unknown) (no date) (unknown) (unknown) Labs: (units unknown) (unknown) (unknown) (no date) (unknown) (unknown) Lungs:? Auscultation of all lung hendricks are clear without adventitious sounds, (units unknown) (unknown) (unknown) (no date) (unknown) (unknown) Lymph # (Auto) 3800 (units unknown) (unknown) (unknown) (no date) (unknown) (unknown) Lymph # (Auto) (units unknown) (unknown) (unknown) (no date) (unknown) (unknown) Lymph % (Auto) 55.4 H D (units unknown) (unknown) (unknown) (no date) (unknown) (unknown) Lymph % (Auto) (units unknown) (unknown) (unknown) (no date) (unknown) (unknown) MCH 26.1 (units unknown) (unknown) (unknown) (no date) (unknown) (unknown) MCH (units unknown) (unknown) (unknown) (no date) (unknown) (unknown) MCHC 33.8 (units unknown) (unknown) (unknown) (no date) (unknown) (unknown) MCHC (units unknown) (unknown) (unknown) (no date) (unknown) (unknown) MCV 77.4 L (units unknown) (unknown) (unknown) (no date) (unknown) (unknown) MCV (units unknown) (unknown) (unknown) (no date) (unknown) (unknown) Alonzo Dueñas, DO (units unknown) (unknown) (unknown) (no date) (unknown) (unknown) Medical History (Updated 08/12/22 @ 02:17 by Gracia Smith, [facility]) (units unknown) (unknown) (unknown) (no date) (unknown) (unknown) Migraine headache with aura (units unknown) (unknown) (unknown) (no date) (unknown) (unknown) O'Brien # (Auto) 800 (units unknown) (unknown) (unknown) (no date) (unknown) (unknown) O'Brien # (Auto) (units unknown) (unknown) (unknown) (no date) (unknown) (unknown) O'Brien % (Auto) 11.7 (units unknown) (unknown) (unknown) (no date) (unknown) (unknown) O'Brien % (Auto) (units unknown) (unknown) (unknown) (no date) (unknown) (unknown) Mother Hypertension (units unknown) (unknown) (unknown) (no date) (unknown) (unknown) Musculoskeletal:? Muscle strength and tone are equal within normal limits, no (units unknown) (unknown) (unknown) (no date) (unknown) (unknown) Myopia (units unknown) (unknown) (unknown) (no date) (unknown) (unknown) Narrative (units unknown) (unknown) (unknown) (no date) (unknown) (unknown) Narrative: (units unknown) (unknown) (unknown) (no date) (unknown) (unknown) Neuro:? Alert and orientated x3, strength is +5/5 in all extremities, sensation (units unknown) (unknown) (unknown) (no date) (unknown) (unknown) Neut # (Auto) 2200 (units unknown) (unknown) (unknown) (no date) (unknown) (unknown) Neut # (Auto) (units unknown) (unknown) (unknown) (no date) (unknown) (unknown) Neut % (Auto) 32.3 L D (units unknown) (unknown) (unknown) (no date) (unknown) (unknown) Neut % (Auto) (units unknown) (unknown) (unknown) (no date) (unknown) (unknown) New (units unknown) (unknown) (unknown) (no date) (unknown) (unknown) Objective (units unknown) (unknown) (unknown) (no date) (unknown) (unknown) On admit patient denies chest pain, shortness in breath, headache, changes in (units unknown) (unknown) (unknown) (no date) (unknown) (unknown) Oxygen Delivery Method Room Air (units unknown) (unknown) (unknown) (no date) (unknown) (unknown) Oxygen Flow Rate 0 (units unknown) (unknown) (unknown) (no date) (unknown) (unknown) PFSH (units unknown) (unknown) (unknown) (no date) (unknown) (unknown) Pancreatitis (units unknown) (unknown) (unknown) (no date) (unknown) (unknown) Patient Disposition: Home (units unknown) (unknown) (unknown) (no date) (unknown) (unknown) Patient's urine was positive for UTI and urine cultures were collected yesterday (units unknown) (unknown) (unknown) (no date) (unknown) (unknown) Patient: Kaur Horton MR (units unknown) (unknown) (unknown) (no date) (unknown) (unknown) Phosphorus 1.2 L (units unknown) (unknown) (unknown) (no date) (unknown) (unknown) Phosphorus (units unknown) (unknown) (unknown) (no date) (unknown) (unknown) Plt Count 275 (units unknown) (unknown) (unknown) (no date) (unknown) (unknown) Plt Count (units unknown) (unknown) (unknown) (no date) (unknown) (unknown) Potassium 3.4 (units unknown) (unknown) (unknown) (no date) (unknown) (unknown) Potassium 3.7 (units unknown) (unknown) (unknown) (no date) (unknown) (unknown) Prescriptions: (units unknown) (unknown) (unknown) (no date) (unknown) (unknown) Primary Care Provider: Delonte Trevino (units unknown) (unknown) (unknown) (no date) (unknown) (unknown) Primary care physician: (units unknown) (unknown) (unknown) (no date) (unknown) (unknown) Provider (units unknown) (unknown) (unknown) (no date) (unknown) (unknown) Provider: Alonzo Dueñas D.O. (units unknown) (unknown) (unknown) (no date) (unknown) (unknown) Psych:? Patient has a well-kept appearance, appropriate affect, mental status (units unknown) (unknown) (unknown) (no date) (unknown) (unknown) RBC 3.50 L (units unknown) (unknown) (unknown) (no date) (unknown) (unknown) RBC (units unknown) (unknown) (unknown) (no date) (unknown) (unknown) RDW 16.5 H (units unknown) (unknown) (unknown) (no date) (unknown) (unknown) RDW (units unknown) (unknown) (unknown) (no date) (unknown) (unknown) Reason For Exam: DM type1, BMI 23 (units unknown) (unknown) (unknown) (no date) (unknown) (unknown) Reason For Exam: MNA score = 11 (units unknown) (unknown) (unknown) (no date) (unknown) (unknown) 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 Warm dry and intact without rashes, ulcerations or petechiae.? (units unknown) (unknown) (unknown) (no date) (unknown) (unknown) Smoking Status: Current every day smoker (units unknown) (unknown) (unknown) (no date) (unknown) (unknown) Social History (units unknown) (unknown) (unknown) (no date) (unknown) (unknown) Sodium 131 L (units unknown) (unknown) (unknown) (no date) (unknown) (unknown) Sodium 134 L (units unknown) (unknown) (unknown) (no date) (unknown) (unknown) Stand Alone Forms: Patient Portal/API, Stroke Signs + Symptoms, Work/Release (units unknown) (unknown) (unknown) (no date) (unknown) (unknown) Status post appendectomy (units unknown) (unknown) (unknown) (no date) (unknown) (unknown) Delonte Trevino MD (units unknown) (unknown) (unknown) (no date) (unknown) (unknown) Summary (units unknown) (unknown) (unknown) (no date) (unknown) (unknown) Surgical History (units unknown) (unknown) (unknown) (no date) (unknown) (unknown) Time Patient Seen: 01:17 (units unknown) (unknown) (unknown) (no date) (unknown) (unknown) Time Spent with Patient (units unknown) (unknown) (unknown) (no date) (unknown) (unknown) Time spent: Greater than 30 minutes (units unknown) (unknown) (unknown) (no date) (unknown) (unknown) Visit Report/Discharge Packet (units unknown) (unknown) (unknown) (no date) (unknown) (unknown) Vital Signs (units unknown) (unknown) (unknown) (no date) (unknown) (unknown) WBC 6.8 (units unknown) (unknown) (unknown) (no date) (unknown) (unknown) WBC (units unknown) (unknown) (unknown) (no date) (unknown) (unknown) [Embedded Image Not Available] (units unknown) (unknown) (unknown) (no date) (unknown) (unknown) admission, improving (units unknown) (unknown) (unknown) (no date) (unknown) (unknown) admitted for lactic acidosis sepsis without shock, due to UTI/pyelonephritis. (units unknown) (unknown) (unknown) (no date) (unknown) (unknown) alcohol intake: never (units unknown) (unknown) (unknown) (no date) (unknown) (unknown) antibiotics was unable to keep them down and failed oral challenge in ED. (units unknown) (unknown) (unknown) (no date) (unknown) (unknown) antibiotics/antiemet i cs was unable to fill them as the pharmacies were closed (units unknown) (unknown) (unknown) (no date) (unknown) (unknown) as needed (units unknown) (unknown) (unknown) (no date) (unknown) (unknown) attitude thought context and judgment are appropriate for age. (units unknown) (unknown) (unknown) (no date) (unknown) (unknown) complications in relation to acute illness/chronic illness.? This increases the (units unknown) (unknown) (unknown) (no date) (unknown) (unknown) constipation, incontinence, melena, rashes, recent changes to medication, (units unknown) (unknown) (unknown) (no date) (unknown) (unknown) deformity, crepitus, effusions, cyanosis, clubbing or edema present.? Full range (units unknown) (unknown) (unknown) (no date) (unknown) (unknown) difficulty in complexity of medical management and increases the chances poor (units unknown) (unknown) (unknown) (no date) (unknown) (unknown) discharge, she has plenty of zofran at home (units unknown) (unknown) (unknown) (no date) (unknown) (unknown) distress. Somnolent. (units unknown) (unknown) (unknown) (no date) (unknown) (unknown) drip for DKA (units unknown) (unknown) (unknown) (no date) (unknown) (unknown) exposure to illness, abdominal pain, nausea, vomiting, urinary (units unknown) (unknown) (unknown) (no date) (unknown) (unknown) from ED, blood cultures obtained tonight-pending. COVID not ordered. Patient (units unknown) (unknown) (unknown) (no date) (unknown) (unknown) gastroparesis, chronic, present on admission (units unknown) (unknown) (unknown) (no date) (unknown) (unknown) guarding or rebound, positive CVA tenderness. (units unknown) (unknown) (unknown) (no date) (unknown) (unknown) household members: spouse (units unknown) (unknown) (unknown) (no date) (unknown) (unknown) illness, injury, or trauma. (units unknown) (unknown) (unknown) (no date) (unknown) (unknown) immune suppression. (units unknown) (unknown) (unknown) (no date) (unknown) (unknown) incontinence/retenti o n, dysuria, frequency, urgency, hematuria, bowel changes, (units unknown) (unknown) (unknown) (no date) (unknown) (unknown) insulin aspart U-100 [Novolog U-100 Insulin aspart] 100 unit/mL solution (units unknown) (unknown) (unknown) (no date) (unknown) (unknown) intake and nutrition. (units unknown) (unknown) (unknown) (no date) (unknown) (unknown) lorazepam [Ativan] 1 mg tablet (units unknown) (unknown) (unknown) (no date) (unknown) (unknown) meets SIRS severe sepsis criteria, H+H 11.4/34.9, MCV 78, MCH 25.5. Hypokalemia (units unknown) (unknown) (unknown) (no date) (unknown) (unknown) metoclopramide HCl 5 mg/5 mL solution (units unknown) (unknown) (unknown) (no date) (unknown) (unknown) midline. (units unknown) (unknown) (unknown) (no date) (unknown) (unknown) of insulin drip (units unknown) (unknown) (unknown) (no date) (unknown) (unknown) of motion intact radial and pedal pulses are normal. (units unknown) (unknown) (unknown) (no date) (unknown) (unknown) organomegaly, or masses.? Bowel sounds are present in all 4 quadrants without (units unknown) (unknown) (unknown) (no date) (unknown) (unknown) outcomes such as mortality and morbidity as well as impaired wound healing, and (units unknown) (unknown) (unknown) (no date) (unknown) (unknown) patient in ED had a BP of 123/77 but was tachycardic HR 111, tachypneic RR 21. (units unknown) (unknown) (unknown) (no date) (unknown) (unknown) per pump (units unknown) (unknown) (unknown) (no date) (unknown) (unknown) potassium 3.3, bicar b 19, glucose 92, ketones 5.09, anion gap 20, not in DKA (units unknown) (unknown) (unknown) (no date) (unknown) (unknown) promethazine 12.5 mg tablet (units unknown) (unknown) (unknown) (no date) (unknown) (unknown) promethazine [Promethegan] 25 mg suppository (units unknown) (unknown) (unknown) (no date) (unknown) (unknown) return to the ED thi s morning was treated once again discharged home returned (units unknown) (unknown) (unknown) (no date) (unknown) (unknown) saturation 99% on room air WBC 18.1, neutrophils 14,000, lactate 2.3 patient (units unknown) (unknown) (unknown) (no date) (unknown) (unknown) sulfamethoxazole-tri m ethoprim [Bactrim DS] 800-160 mg tablet (units unknown) (unknown) (unknown) (no date) (unknown) (unknown) the ED yesterday for nausea vomiting with UTI, was given prescription for (units unknown) (unknown) (unknown) (no date) (unknown) (unknown) this evening with intractable nausea and vomiting after picking up her (units unknown) (unknown) (unknown) (no date) (unknown) (unknown) to touch intact, no gross deficits noted of cranial nerves. (units unknown) (unknown) (unknown) (no date) (unknown) (unknown) type 1 diabetes, wit h peripheral neuropathy and gastroparesis who presented to (units unknown) (unknown) (unknown) (no date) (unknown) (unknown) use, cannabis hyperemesis syndrome, cyclic vomiting syndrome, GERD, migraines, (units unknown) (unknown) (unknown) (no date) (unknown) (unknown) vision, difficulty swallowing, speech impairment, numbness, tingling, difficulty (units unknown) (unknown) (unknown) (no date) (unknown) (unknown) wears an insulin pum p was discontinued per hospital policy. (units unknown) (unknown) (unknown) (no date) (unknown) (unknown) wheezes, rhonchi, or rales. (units unknown) (unknown) (unknown) (no date) (unknown) (unknown) with ambulation, recent falls, head injury, LOC, fever, chills, cough, recent (units unknown) (unknown) Result panel 1695 (unknown) (no date) (unknown) (unknown) (no value) (units unknown) (unknown) (unknown) (no date) (unknown) (unknown) 09/10/22 (units unknown) (unknown) (unknown) (no date) (unknown) (unknown) [address] [place] [address] (units unknown) (unknown) (unknown) (no date) (unknown) (unknown) Accession Number: [id number] (units unknown) (unknown) (unknown) (no date) (unknown) (unknown) Age/Sex: 27 / F Date of Service: (units unknown) (unknown) (unknown) (no date) (unknown) (unknown) [place] [address] (units unknown) (unknown) (unknown) (no date) (unknown) (unknown) Approved by: Martha Mosley M.D. on 09/10/2022 at 17:11 (units unknown) (unknown) (unknown) (no date) (unknown) (unknown) Bones and chest wall : No suspicious bony lesions. Overlying soft tissues (units unknown) (unknown) (unknown) (no date) (unknown) (unknown) COMPARISON: [facility], CR, XR CHEST 1 VIEW, 09/08/2022, 9:29. (units unknown) (unknown) (unknown) (no date) (unknown) (unknown) : 1995 Acct:[id number] (units unknown) (unknown) (unknown) (no date) (unknown) (unknown) Dictated by: Martha Mosley M.D. on 09/10/2022 at 17:08 (units unknown) (unknown) (unknown) (no date) (unknown) (unknown) FINDINGS: (units unknown) (unknown) (unknown) (no date) (unknown) (unknown) [facility], CR, XR CHEST 1V, 06/27/2021, 3:44. (units unknown) (unknown) (unknown) (no date) (unknown) (unknown) IMPRESSION: No acute cardiopulmonary disease. (units unknown) (unknown) (unknown) (no date) (unknown) (unknown) INDICATIONS: suspected sepsis (units unknown) (unknown) (unknown) (no date) (unknown) (unknown) [facility] (units unknown) (unknown) (unknown) (no date) (unknown) (unknown) [place] (units unknown) (unknown) (unknown) (no date) (unknown) (unknown) Loc: ED (units unknown) (unknown) (unknown) (no date) (unknown) (unknown) Lungs and pleura: Lungs are clear. No pleural effusions or pneumothorax. (units unknown) (unknown) (unknown) (no date) (unknown) (unknown) Mediastinum: Mediastinal contours appear normal. Heart size is normal. (units unknown) (unknown) (unknown) (no date) (unknown) (unknown) Ordering Provider: Lois Szymanski D.O. (units unknown) (unknown) (unknown) (no date) (unknown) (unknown) PROCEDURE: XR CHEST 1V (units unknown) (unknown) (unknown) (no date) (unknown) (unknown) Patient: Kaur Horton (units unknown) (unknown) (unknown) (no date) (unknown) (unknown) Procedure: XR chest 1V (units unknown) (unknown) (unknown) (no date) (unknown) (unknown) R#: [id number] (units unknown) (unknown) (unknown) (no date) (unknown) (unknown) Signed (units unknown) (unknown) (unknown) (no date) (unknown) (unknown) Surgical changes and devices: None. (units unknown) (unknown) (unknown) (no date) (unknown) (unknown) TECHNIQUE: One view of the chest was acquired. (units unknown) (unknown) (unknown) (no date) (unknown) (unknown) XRay Report (units unknown) (unknown) (unknown) (no date) (unknown) (unknown) appear (units unknown) (unknown) (unknown) (no date) (unknown) (unknown) unremarkable. (units unknown) (unknown) Result panel 1696 (unknown) (no date) (unknown) (unknown) 0 /ul (unknown) (unknown) (no date) (unknown) (unknown) 0 /ul (unknown) (unknown) (no date) (unknown) (unknown) 0.1 % (unknown) (unknown) (no date) (unknown) (unknown) 0.2 % (unknown) (unknown) (no date) (unknown) (unknown) 10.9 g/dl (unknown) (unknown) (no date) (unknown) (unknown) 11.0 % (unknown) (unknown) (no date) (unknown) (unknown) 12.5 x10 3/ul (unknown) (unknown) (no date) (unknown) (unknown) 1200 /ul (unknown) (unknown) (no date) (unknown) (unknown) 1400 /ul (unknown) (unknown) (no date) (unknown) (unknown) 17.1 % (unknown) (unknown) (no date) (unknown) (unknown) 26.2 pg (unknown) (unknown) (no date) (unknown) (unknown) 312 x10 3/ul (unknown) (unknown) (no date) (unknown) (unknown) 32.9 % (unknown) (unknown) (no date) (unknown) (unknown) 33.1 % (unknown) (unknown) (no date) (unknown) (unknown) 4.16 x10 6/ul (unknown) (unknown) (no date) (unknown) (unknown) 79.2 % (unknown) (unknown) (no date) (unknown) (unknown) 79.7 fl (unknown) (unknown) (no date) (unknown) (unknown) 9.5 % (unknown) (unknown) (no date) (unknown) (unknown) 9900 /ul (unknown) Result panel 1697 (unknown) (no date) (unknown) (unknown) 1.2 (units unknown) (unknown) (unknown) (no date) (unknown) (unknown) 13.6 seconds (unknown) Result panel 1698 (unknown) (no date) (unknown) (unknown) 1.2 (units unknown) (unknown) (unknown) (no date) (unknown) (unknown) 13.6 seconds (unknown) (unknown) (no date) (unknown) (unknown) 19 seconds (unknown) (unknown) (no date) (unknown) (unknown) 19 seconds (unknown) Result panel 1699 (unknown) (no date) (unknown) (unknown) > 60 ml/min (unknown) (unknown) (no date) (unknown) (unknown) > 60 ml/min (unknown) (unknown) (no date) (unknown) (unknown) 0.6 mg/dl (unknown) (unknown) (no date) (unknown) (unknown) 1.01 mg/dl (unknown) (unknown) (no date) (unknown) (unknown) 1.6 (units unknown) (unknown) (unknown) (no date) (unknown) (unknown) 10.9 (units unknown) (unknown) (unknown) (no date) (unknown) (unknown) 11 mg/dl (unknown) (unknown) (no date) (unknown) (unknown) 133 mmol/l (unknown) (unknown) (no date) (unknown) (unknown) 16 u/l (unknown) (unknown) (no date) (unknown) (unknown) 2.9 g/dl (unknown) (unknown) (no date) (unknown) (unknown) 210 mg/dl (unknown) (unknown) (no date) (unknown) (unknown) 210 mg/dl (unknown) (unknown) (no date) (unknown) (unknown) 23 iu/l (unknown) (unknown) (no date) (unknown) (unknown) 23 mmol/l (unknown) (unknown) (no date) (unknown) (unknown) 3.2 mmol/l (unknown) (unknown) (no date) (unknown) (unknown) 33 iu/l (unknown) (unknown) (no date) (unknown) (unknown) 4.5 g/dl (unknown) (unknown) (no date) (unknown) (unknown) 7.4 g/dl (unknown) (unknown) (no date) (unknown) (unknown) 8.7 mg/dl (unknown) (unknown) (no date) (unknown) (unknown) 93 mmol/l (unknown) (unknown) (no date) (unknown) (unknown) 97 u/l (unknown) Result panel 1700 (unknown) (no date) (unknown) (unknown) 1.1 mmol/l (unknown) Result panel 1701 (unknown) (no date) (unknown) (unknown) > 60 ml/min (unknown) (unknown) (no date) (unknown) (unknown) > 60 ml/min (unknown) (unknown) (no date) (unknown) (unknown) 0.14 ng/ml (unknown) (unknown) (no date) (unknown) (unknown) 0.14 ng/ml (unknown) (unknown) (no date) (unknown) (unknown) 0.6 mg/dl (unknown) (unknown) (no date) (unknown) (unknown) 1.01 mg/dl (unknown) (unknown) (no date) (unknown) (unknown) 1.6 (units unknown) (unknown) (unknown) (no date) (unknown) (unknown) 10.9 (units unknown) (unknown) (unknown) (no date) (unknown) (unknown) 11 mg/dl (unknown) (unknown) (no date) (unknown) (unknown) 133 mmol/l (unknown) (unknown) (no date) (unknown) (unknown) 16 u/l (unknown) (unknown) (no date) (unknown) (unknown) 2.9 g/dl (unknown) (unknown) (no date) (unknown) (unknown) 210 mg/dl (unknown) (unknown) (no date) (unknown) (unknown) 210 mg/dl (unknown) (unknown) (no date) (unknown) (unknown) 23 iu/l (unknown) (unknown) (no date) (unknown) (unknown) 23 mmol/l (unknown) (unknown) (no date) (unknown) (unknown) 3.2 mmol/l (unknown) (unknown) (no date) (unknown) (unknown) 33 iu/l (unknown) (unknown) (no date) (unknown) (unknown) 4.5 g/dl (unknown) (unknown) (no date) (unknown) (unknown) 7.4 g/dl (unknown) (unknown) (no date) (unknown) (unknown) 8.7 mg/dl (unknown) (unknown) (no date) (unknown) (unknown) 93 mmol/l (unknown) (unknown) (no date) (unknown) (unknown) 97 u/l (unknown) Result panel 1702 (unknown) (no date) (unknown) (unknown) (no value) (units unknown) (unknown) (unknown) (no date) (unknown) (unknown) #: [id number] (units unknown) (unknown) (unknown) (no date) (unknown) (unknown) (DME) insulin syringes (disposable) 1 mL syringe (units unknown) (unknown) (unknown) (no date) (unknown) (unknown) 09/10/22 09/10/22 09/10/22 Range/Units (units unknown) (unknown) (unknown) (no date) (unknown) (unknown) 09/10/22 16:25 (units unknown) (unknown) (unknown) (no date) (unknown) (unknown) 09/10/22 16:33 (units unknown) (unknown) (unknown) (no date) (unknown) (unknown) 09/10/22 16:56 (units unknown) (unknown) (unknown) (no date) (unknown) (unknown) 09/10/22 Range/Units (units unknown) (unknown) (unknown) (no date) (unknown) (unknown) 09/10/22 (units unknown) (unknown) (unknown) (no date) (unknown) (unknown) 1 mg PO TID PRN (Reason: anxiety) Qty: 4 0RF (units unknown) (unknown) (unknown) (no date) (unknown) (unknown) 16:07 (units unknown) (unknown) (unknown) (no date) (unknown) (unknown) 16:25 16:25 16:25 (units unknown) (unknown) (unknown) (no date) (unknown) (unknown) 16:25 (units unknown) (unknown) (unknown) (no date) (unknown) (unknown) 25 mg PO BID PRN (Reason: nausea and vomiting) (units unknown) (unknown) (unknown) (no date) (unknown) (unknown) 25 mg PA Q4-6H PRN (Reason: Nausea And Vomiting) Qty: 12 0RF (units unknown) (unknown) (unknown) (no date) (unknown) (unknown) 5 mg PO Q8H PRN (Reason: Nausea) (units unknown) (unknown) (unknown) (no date) (unknown) (unknown) 56 unit SUBCUT DAILY (units unknown) (unknown) (unknown) (no date) (unknown) (unknown) ALT (<35) IU/L (units unknown) (unknown) (unknown) (no date) (unknown) (unknown) ALT 33 (<35) IU/L (units unknown) (unknown) (unknown) (no date) (unknown) (unknown) APTT (26-36) SECONDS (units unknown) (unknown) (unknown) (no date) (unknown) (unknown) APTT 19 L (26-36) SECONDS (units unknown) (unknown) (unknown) (no date) (unknown) (unknown) AST (14-36) IU/L (units unknown) (unknown) (unknown) (no date) (unknown) (unknown) AST 23 (14-36) IU/L (units unknown) (unknown) (unknown) (no date) (unknown) (unknown) Age/Sex: 27 / F (units unknown) (unknown) (unknown) (no date) (unknown) (unknown) Albumin (3.5-5.0) g/dL (units unknown) (unknown) (unknown) (no date) (unknown) (unknown) Albumin 4.5 (3.5-5.0 ) g/dL (units unknown) (unknown) (unknown) (no date) (unknown) (unknown) Albumin/Globulin Ratio (1.0-2.8) (units unknown) (unknown) (unknown) (no date) (unknown) (unknown) Albumin/Globulin Ratio 1.6 (1.0-2.8) (units unknown) (unknown) (unknown) (no date) (unknown) (unknown) Alkaline Phosphatase (38-126) U/L (units unknown) (unknown) (unknown) (no date) (unknown) (unknown) Alkaline Phosphatase 97 (38-126) U/L (units unknown) (unknown) (unknown) (no date) (unknown) (unknown) Allergies (units unknown) (unknown) (unknown) (no date) (unknown) (unknown) Allergy/AdvReac Type Severity Reaction Status Date / Time (units unknown) (unknown) (unknown) (no date) (unknown) (unknown) Anemia (units unknown) (unknown) (unknown) (no date) (unknown) (unknown) As directed for use with insulin injections (units unknown) (unknown) (unknown) (no date) (unknown) (unknown) BUN (7-17) mg/dL (units unknown) (unknown) (unknown) (no date) (unknown) (unknown) BUN 11 (7-17) mg/dL (units unknown) (unknown) (unknown) (no date) (unknown) (unknown) BUN/Creatinine Ratio (6-22) (units unknown) (unknown) (unknown) (no date) (unknown) (unknown) BUN/Creatinine Ratio 10.9 (6-22) (units unknown) (unknown) (unknown) (no date) (unknown) (unknown) Baso # (Auto) (0-100 ) /uL (units unknown) (unknown) (unknown) (no date) (unknown) (unknown) Baso # (Auto) 0 (0-100) /uL (units unknown) (unknown) (unknown) (no date) (unknown) (unknown) Baso % (Auto) (0-2) % (units unknown) (unknown) (unknown) (no date) (unknown) (unknown) Baso % (Auto) 0.2 (0-2) % (units unknown) (unknown) (unknown) (no date) (unknown) (unknown) Blood Culture Stat (units unknown) (unknown) (unknown) (no date) (unknown) (unknown) Blood Pressure 131/8 2 09/10/22 16:07 (units unknown) (unknown) (unknown) (no date) (unknown) (unknown) Blood Pressure 131/82 (units unknown) (unknown) (unknown) (no date) (unknown) (unknown) COVID19 -Nasal RAPID Stat (units unknown) (unknown) (unknown) (no date) (unknown) (unknown) Calcium (8.4-10.2) mg/dL (units unknown) (unknown) (unknown) (no date) (unknown) (unknown) Calcium 8.7 (8.4-10.2) mg/dL (units unknown) (unknown) (unknown) (no date) (unknown) (unknown) Cannabis hyperemesis syndrome concurrent with and due to cannabis dependence (units unknown) (unknown) (unknown) (no date) (unknown) (unknown) Carbon Dioxide (22-32) mmol/L (units unknown) (unknown) (unknown) (no date) (unknown) (unknown) Carbon Dioxide 23 (22-32) mmol/L (units unknown) (unknown) (unknown) (no date) (unknown) (unknown) Chief complaint: Diabetic Problem (units unknown) (unknown) (unknown) (no date) (unknown) (unknown) Chloride (98-107) mmol/L (units unknown) (unknown) (unknown) (no date) (unknown) (unknown) Chloride 93 L (98-107) mmol/L (units unknown) (unknown) (unknown) (no date) (unknown) (unknown) Complete Blood Count AUTO DIFF Stat (units unknown) (unknown) (unknown) (no date) (unknown) (unknown) Comprehensive Metabolic Panel Stat (units unknown) (unknown) (unknown) (no date) (unknown) (unknown) Course (units unknown) (unknown) (unknown) (no date) (unknown) (unknown) Creatinine (0.52-1.04) mg/dL (units unknown) (unknown) (unknown) (no date) (unknown) (unknown) Creatinine 1.01 (0.52-1.04) mg/dL (units unknown) (unknown) (unknown) (no date) (unknown) (unknown) Cyclic vomiting syndrome (units unknown) (unknown) (unknown) (no date) (unknown) (unknown) DKA (diabetic ketoacidoses) (units unknown) (unknown) (unknown) (no date) (unknown) (unknown) : 1995 Acct:[id number] (units unknown) (unknown) (unknown) (no date) (unknown) (unknown) Date of Service: 09/10/22 (units unknown) (unknown) (unknown) (no date) (unknown) (unknown) Departure (units unknown) (unknown) (unknown) (no date) (unknown) (unknown) Diabetes mellitus, type I (units unknown) (unknown) (unknown) (no date) (unknown) (unknown) Discharge Plan (units unknown) (unknown) (unknown) (no date) (unknown) (unknown) Discontinued Medications (units unknown) (unknown) (unknown) (no date) (unknown) (unknown) Documented By: AT (units unknown) (unknown) (unknown) (no date) (unknown) (unknown) ED Orders (units unknown) (unknown) (unknown) (no date) (unknown) (unknown) EKG-12 Lead Stat (units unknown) (unknown) (unknown) (no date) (unknown) (unknown) ER Physician: Lois Szymanski D.O. (units unknown) (unknown) (unknown) (no date) (unknown) (unknown) Emergency Report (units unknown) (unknown) (unknown) (no date) (unknown) (unknown) Eos # (Auto) (0-450) /uL (units unknown) (unknown) (unknown) (no date) (unknown) (unknown) Eos # (Auto) 0 (0-450) /uL (units unknown) (unknown) (unknown) (no date) (unknown) (unknown) Eos % (Auto) (2-4) % (units unknown) (unknown) (unknown) (no date) (unknown) (unknown) Eos % (Auto) 0.1 L (2-4) % (units unknown) (unknown) (unknown) (no date) (unknown) (unknown) Estimated GFR > 60 (>60) mL/min (units unknown) (unknown) (unknown) (no date) (unknown) (unknown) Estimated GFR (>60) mL/min (units unknown) (unknown) (unknown) (no date) (unknown) (unknown) Exam (units unknown) (unknown) (unknown) (no date) (unknown) (unknown) Family History (units unknown) (unknown) (unknown) (no date) (unknown) (unknown) Father Healthy adult (units unknown) (unknown) (unknown) (no date) (unknown) (unknown) Gastroparesis (units unknown) (unknown) (unknown) (no date) (unknown) (unknown) General (units unknown) (unknown) (unknown) (no date) (unknown) (unknown) Globulin (1.7-4.1) g/dL (units unknown) (unknown) (unknown) (no date) (unknown) (unknown) Globulin 2.9 (1.7-4.1) g/dL (units unknown) (unknown) (unknown) (no date) (unknown) (unknown) Glucose (70-100) mg/dL (units unknown) (unknown) (unknown) (no date) (unknown) (unknown) Glucose 210 H (70-100) mg/dL (units unknown) (unknown) (unknown) (no date) (unknown) (unknown) Glucose POC 214 (units unknown) (unknown) (unknown) (no date) (unknown) (unknown) HPI - General Adult (units unknown) (unknown) (unknown) (no date) (unknown) (unknown) Hct (36-46) % (units unknown) (unknown) (unknown) (no date) (unknown) (unknown) Hct 33.1 L (36-46) % (units unknown) (unknown) (unknown) (no date) (unknown) (unknown) Hgb (12.0-16.0) g/dL (units unknown) (unknown) (unknown) (no date) (unknown) (unknown) Hgb 10.9 L (12.0-16.0) g/dL (units unknown) (unknown) (unknown) (no date) (unknown) (unknown) Home Medications (units unknown) (unknown) (unknown) (no date) (unknown) (unknown) Delonte Trevino MD [Primary Care Provider] (units unknown) (unknown) (unknown) (no date) (unknown) (unknown) INR (0.9-1.3) (units unknown) (unknown) (unknown) (no date) (unknown) (unknown) INR 1.2 (0.9-1.3) (units unknown) (unknown) (unknown) (no date) (unknown) (unknown) Initial Vital Signs (units unknown) (unknown) (unknown) (no date) (unknown) (unknown) Initial Vital Signs: (units unknown) (unknown) (unknown) (no date) (unknown) (unknown) Insulin dependent diabetes mellitus (units unknown) (unknown) (unknown) (no date) (unknown) (unknown) [address] [address] (units unknown) (unknown) (unknown) (no date) (unknown) (unknown) Lab Data (units unknown) (unknown) (unknown) (no date) (unknown) (unknown) Lab Results (units unknown) (unknown) (unknown) (no date) (unknown) (unknown) Labs: (units unknown) (unknown) (unknown) (no date) (unknown) (unknown) Lactate (0.7-2.1) mmol/L (units unknown) (unknown) (unknown) (no date) (unknown) (unknown) Lactate (Lactic Acid ) Stat (units unknown) (unknown) (unknown) (no date) (unknown) (unknown) Lactate 1.1 (0.7-2.1 ) mmol/L (units unknown) (unknown) (unknown) (no date) (unknown) (unknown) Last Admin: 09/10/22 16:41 Dose: 1,000 mls/hr (units unknown) (unknown) (unknown) (no date) (unknown) (unknown) Last Admin: 09/10/22 16:41 Dose: 4 mg (units unknown) (unknown) (unknown) (no date) (unknown) (unknown) Lipase (23-300) U/L (units unknown) (unknown) (unknown) (no date) (unknown) (unknown) Lipase 16 L (23-300) U/L (units unknown) (unknown) (unknown) (no date) (unknown) (unknown) Lipase Stat (units unknown) (unknown) (unknown) (no date) (unknown) (unknown) Lymph # (Auto) (2250-3955) /uL (units unknown) (unknown) (unknown) (no date) (unknown) (unknown) Lymph # (Auto) 1400 (5279-3082) /uL (units unknown) (unknown) (unknown) (no date) (unknown) (unknown) Lymph % (Auto) (25-40) % (units unknown) (unknown) (unknown) (no date) (unknown) (unknown) Lymph % (Auto) 11.0 L (25-40) % (units unknown) (unknown) (unknown) (no date) (unknown) (unknown) MCH (26-34) PG (units unknown) (unknown) (unknown) (no date) (unknown) (unknown) MCH 26.2 (26-34) PG (units unknown) (unknown) (unknown) (no date) (unknown) (unknown) MCHC (30-36) % (units unknown) (unknown) (unknown) (no date) (unknown) (unknown) MCHC 32.9 (30-36) % (units unknown) (unknown) (unknown) (no date) (unknown) (unknown) MCV (80-100) fL (units unknown) (unknown) (unknown) (no date) (unknown) (unknown) MCV 79.7 L (80-100) fL (units unknown) (unknown) (unknown) (no date) (unknown) (unknown) Medical Decision Making (units unknown) (unknown) (unknown) (no date) (unknown) (unknown) Medical History (Updated 08/25/22 @ 00:01 by ) (units unknown) (unknown) (unknown) (no date) (unknown) (unknown) Medication Instructions Recorded Confirmed (units unknown) (unknown) (unknown) (no date) (unknown) (unknown) Medication Instructions Recorded (units unknown) (unknown) (unknown) (no date) (unknown) (unknown) Migraine headache with aura (units unknown) (unknown) (unknown) (no date) (unknown) (unknown) Mode of arrival: Ambulatory (units unknown) (unknown) (unknown) (no date) (unknown) (unknown) O'Brien # (Auto) (0-900 ) /uL (units unknown) (unknown) (unknown) (no date) (unknown) (unknown) O'Brien # (Auto) 1200 H (0-900) /uL (units unknown) (unknown) (unknown) (no date) (unknown) (unknown) O'Brien % (Auto) (3-14) % (units unknown) (unknown) (unknown) (no date) (unknown) (unknown) O'Brien % (Auto) 9.5 (3-14) % (units unknown) (unknown) (unknown) (no date) (unknown) (unknown) Mother Hypertension (units unknown) (unknown) (unknown) (no date) (unknown) (unknown) Myopia (units unknown) (unknown) (unknown) (no date) (unknown) (unknown) Neut # (Auto) (4729-1857) /uL (units unknown) (unknown) (unknown) (no date) (unknown) (unknown) Neut # (Auto) 9900 H (2573-9022) /uL (units unknown) (unknown) (unknown) (no date) (unknown) (unknown) Neut % (Auto) (50-75 ) % (units unknown) (unknown) (unknown) (no date) (unknown) (unknown) Neut % (Auto) 79.2 H (50-75) % (units unknown) (unknown) (unknown) (no date) (unknown) (unknown) No Action (units unknown) (unknown) (unknown) (no date) (unknown) (unknown) Ondansetron HCl (Ondansetron 4 Mg Odt) 4 mg SL NOW PRN (units unknown) (unknown) (unknown) (no date) (unknown) (unknown) Ondansetron HCl (Ondansetron 4 Mg/2 Ml Inj) 4 mg IV NOW PRN (units unknown) (unknown) (unknown) (no date) (unknown) (unknown) Ordered: (units unknown) (unknown) (unknown) (no date) (unknown) (unknown) Orders (units unknown) (unknown) (unknown) (no date) (unknown) (unknown) Oxygen Delivery Method Room Air 09/10/22 16:07 (units unknown) (unknown) (unknown) (no date) (unknown) (unknown) Oxygen Delivery Method Room Air (units unknown) (unknown) (unknown) (no date) (unknown) (unknown) PRN Reason: Nausea And Vomiting (units unknown) (unknown) (unknown) (no date) (unknown) (unknown) PT (10.1-12.7) SECONDS (units unknown) (unknown) (unknown) (no date) (unknown) (unknown) PT 13.6 H (10.1-12.7 ) SECONDS (units unknown) (unknown) (unknown) (no date) (unknown) (unknown) PTT Partial Thromboplastin Sonny Stat (units unknown) (unknown) (unknown) (no date) (unknown) (unknown) Pancreatitis (units unknown) (unknown) (unknown) (no date) (unknown) (unknown) Patient History (units unknown) (unknown) (unknown) (no date) (unknown) (unknown) Patient: Kaur Horton MR (units unknown) (unknown) (unknown) (no date) (unknown) (unknown) Plt Count (150-400) X103/uL (units unknown) (unknown) (unknown) (no date) (unknown) (unknown) Plt Count 312 (150-400) X103/uL (units unknown) (unknown) (unknown) (no date) (unknown) (unknown) Point of Care Testing (units unknown) (unknown) (unknown) (no date) (unknown) (unknown) Point of care testing: (units unknown) (unknown) (unknown) (no date) (unknown) (unknown) Potassium (3.4-5.1) mmol/L (units unknown) (unknown) (unknown) (no date) (unknown) (unknown) Potassium 3.2 L (3.4-5.1) mmol/L (units unknown) (unknown) (unknown) (no date) (unknown) (unknown) Prescriptions: (units unknown) (unknown) (unknown) (no date) (unknown) (unknown) Previous Rx's (units unknown) (unknown) (unknown) (no date) (unknown) (unknown) Procalcitonin (<0.5) ng/mL (units unknown) (unknown) (unknown) (no date) (unknown) (unknown) Procalcitonin 0.14 (<0.5) ng/mL (units unknown) (unknown) (unknown) (no date) (unknown) (unknown) Procalcitonin Stat (units unknown) (unknown) (unknown) (no date) (unknown) (unknown) Prothrombin Time INR Stat (units unknown) (unknown) (unknown) (no date) (unknown) (unknown) Pulse Oximetry 100 09/10/22 16:07 (units unknown) (unknown) (unknown) (no date) (unknown) (unknown) Pulse Oximetry 100 (units unknown) (unknown) (unknown) (no date) (unknown) (unknown) Pulse Rate 112 H 09/10/22 16:07 (units unknown) (unknown) (unknown) (no date) (unknown) (unknown) Pulse Rate 112 H (units unknown) (unknown) (unknown) (no date) (unknown) (unknown) RBC (4.0-5.2) X106/uL (units unknown) (unknown) (unknown) (no date) (unknown) (unknown) RBC 4.16 (4.0-5.2) X106/uL (units unknown) (unknown) (unknown) (no date) (unknown) (unknown) RDW (11.6-14.8) % (units unknown) (unknown) (unknown) (no date) (unknown) (unknown) RDW 17.1 H (11.6-14.8) % (units unknown) (unknown) (unknown) (no date) (unknown) (unknown) RT Consult Eval and Treat NOW (units unknown) (unknown) (unknown) (no date) (unknown) (unknown) Referrals: (units unknown) (unknown) (unknown) (no date) (unknown) (unknown) Related Data (units unknown) (unknown) (unknown) (no date) (unknown) (unknown) Respiratory Rate 24 09/10/22 16:07 (units unknown) (unknown) (unknown) (no date) (unknown) (unknown) Respiratory Rate 24 (units unknown) (unknown) (unknown) (no date) (unknown) (unknown) Rx Instructions: (units unknown) (unknown) (unknown) (no date) (unknown) (unknown) See Rx Instructions .ROUTE .MEDSUPPLY Qty: 500 1RF (units unknown) (unknown) (unknown) (no date) (unknown) (unknown) Signed By: (units unknown) (unknown) (unknown) (no date) (unknown) (unknown) Smoking Status: Current every day smoker (units unknown) (unknown) (unknown) (no date) (unknown) (unknown) Social History (units unknown) (unknown) (unknown) (no date) (unknown) (unknown) Sodium (137-145) mmol/L (units unknown) (unknown) (unknown) (no date) (unknown) (unknown) Sodium 133 L (137-145) mmol/L (units unknown) (unknown) (unknown) (no date) (unknown) (unknown) Sodium Chloride (Normal Saline 0.9%) 1,000 mls @ 1,000 mls/hr IV BOLUS ONE (units unknown) (unknown) (unknown) (no date) (unknown) (unknown) Source: patient (units unknown) (unknown) (unknown) (no date) (unknown) (unknown) Stated complaint: thinks DKA (units unknown) (unknown) (unknown) (no date) (unknown) (unknown) Status post appendectomy (units unknown) (unknown) (unknown) (no date) (unknown) (unknown) Stop: 09/10/22 17:32 (units unknown) (unknown) (unknown) (no date) (unknown) (unknown) Substance Use Type: marijuana (units unknown) (unknown) (unknown) (no date) (unknown) (unknown) Surgical History (units unknown) (unknown) (unknown) (no date) (unknown) (unknown) Temperature 98.1 F 09/10/22 16:07 (units unknown) (unknown) (unknown) (no date) (unknown) (unknown) Temperature 98.1 F (units unknown) (unknown) (unknown) (no date) (unknown) (unknown) Time Seen by Provider: 09/10/22 16:39 (units unknown) (unknown) (unknown) (no date) (unknown) (unknown) Total Bilirubin (0.2-1.3) mg/dL (units unknown) (unknown) (unknown) (no date) (unknown) (unknown) Total Bilirubin 0.6 (0.2-1.3) mg/dL (units unknown) (unknown) (unknown) (no date) (unknown) (unknown) Total Protein (6.3-8.2) g/dL (units unknown) (unknown) (unknown) (no date) (unknown) (unknown) Total Protein 7.4 (6.3-8.2) g/dL (units unknown) (unknown) (unknown) (no date) (unknown) (unknown) U-100 Insulin aspart) (units unknown) (unknown) (unknown) (no date) (unknown) (unknown) Vital Signs - 8 hr (units unknown) (unknown) (unknown) (no date) (unknown) (unknown) Vital Signs (units unknown) (unknown) (unknown) (no date) (unknown) (unknown) Vital signs: (units unknown) (unknown) (unknown) (no date) (unknown) (unknown) WBC (4.5-11.0) X103/uL (units unknown) (unknown) (unknown) (no date) (unknown) (unknown) WBC 12.5 H (4.5-11.0 ) X103/uL (units unknown) (unknown) (unknown) (no date) (unknown) (unknown) XR chest 1V Stat (units unknown) (unknown) (unknown) (no date) (unknown) (unknown) [Embedded Image Not Available] (units unknown) (unknown) (unknown) (no date) (unknown) (unknown) alcohol intake frequency: holidays/special occasions only (units unknown) (unknown) (unknown) (no date) (unknown) (unknown) alcohol intake: never (units unknown) (unknown) (unknown) (no date) (unknown) (unknown) household members: spouse (units unknown) (unknown) (unknown) (no date) (unknown) (unknown) insulin aspart U-100 100 unit/mL 56 unit SUBCUT DAILY 08/12/22 08/14/22 (units unknown) (unknown) (unknown) (no date) (unknown) (unknown) insulin aspart U-100 [Novolog U-100 Insulin aspart] 100 unit/mL solution (units unknown) (unknown) (unknown) (no date) (unknown) (unknown) insulin syringes (disposable) 1 mL #500 ea 08/04/20 (units unknown) (unknown) (unknown) (no date) (unknown) (unknown) ketorolac [From Toradol] Allergy Verified 08/10/22 14:43 (units unknown) (unknown) (unknown) (no date) (unknown) (unknown) lorazepam 1 mg table t (Ativan) 1 mg PO TID PRN anxiety #4 tabs 08/16/22 (units unknown) (unknown) (unknown) (no date) (unknown) (unknown) lorazepam [Ativan] 1 mg tablet (units unknown) (unknown) (unknown) (no date) (unknown) (unknown) metoclopramide HCl 5 mg/5 mL oral 5 mg PO Q8H PRN Nausea 08/12/22 08/12/22 (units unknown) (unknown) (unknown) (no date) (unknown) (unknown) metoclopramide HCl 5 mg/5 mL solution (units unknown) (unknown) (unknown) (no date) (unknown) (unknown) per pump (units unknown) (unknown) (unknown) (no date) (unknown) (unknown) promethazine 12.5 mg tablet 25 mg PO BID PRN nausea and 08/12/22 08/12/22 (units unknown) (unknown) (unknown) (no date) (unknown) (unknown) promethazine 12.5 mg tablet (units unknown) (unknown) (unknown) (no date) (unknown) (unknown) promethazine 25 mg rectal 25 mg PA Q4-6H PRN Nausea And 08/16/22 (units unknown) (unknown) (unknown) (no date) (unknown) (unknown) promethazine [Promethegan] 25 mg suppository (units unknown) (unknown) (unknown) (no date) (unknown) (unknown) solution (units unknown) (unknown) (unknown) (no date) (unknown) (unknown) subcutaneous solutio n (Novolog (units unknown) (unknown) (unknown) (no date) (unknown) (unknown) suppository (Promethegan) Vomiting #12 ea (units unknown) (unknown) (unknown) (no date) (unknown) (unknown) tobacco type: vaping (units unknown) (unknown) (unknown) (no date) (unknown) (unknown) vomiting (units unknown) (unknown) Result panel 1703 (unknown) (no date) (unknown) (unknown) (no value) (units unknown) (unknown) (unknown) (no date) (unknown) (unknown) #: [id number] (units unknown) (unknown) (unknown) (no date) (unknown) (unknown) (DME) insulin syringes (disposable) 1 mL syringe (units unknown) (unknown) (unknown) (no date) (unknown) (unknown) 09/10/22 09/10/22 09/10/22 Range/Units (units unknown) (unknown) (unknown) (no date) (unknown) (unknown) 09/10/22 16:25 (units unknown) (unknown) (unknown) (no date) (unknown) (unknown) 09/10/22 16:33 (units unknown) (unknown) (unknown) (no date) (unknown) (unknown) 09/10/22 16:56 (units unknown) (unknown) (unknown) (no date) (unknown) (unknown) 09/10/22 17:38 (units unknown) (unknown) (unknown) (no date) (unknown) (unknown) 09/10/22 Range/Units (units unknown) (unknown) (unknown) (no date) (unknown) (unknown) 09/10/22 (units unknown) (unknown) (unknown) (no date) (unknown) (unknown) 1 mg PO TID PRN (Reason: anxiety) Qty: 4 0RF (units unknown) (unknown) (unknown) (no date) (unknown) (unknown) [address] (units unknown) (unknown) (unknown) (no date) (unknown) (unknown) 16:07 (units unknown) (unknown) (unknown) (no date) (unknown) (unknown) 16:25 16:25 16:25 (units unknown) (unknown) (unknown) (no date) (unknown) (unknown) 16:25 (units unknown) (unknown) (unknown) (no date) (unknown) (unknown) 25 mg PO BID PRN (Reason: nausea and vomiting) (units unknown) (unknown) (unknown) (no date) (unknown) (unknown) 25 mg PA Q4-6H PRN (Reason: Nausea And Vomiting) Qty: 12 0RF (units unknown) (unknown) (unknown) (no date) (unknown) (unknown) 5 mg PO Q8H PRN (Reason: Nausea) (units unknown) (unknown) (unknown) (no date) (unknown) (unknown) 56 unit SUBCUT DAILY (units unknown) (unknown) (unknown) (no date) (unknown) (unknown) ? (units unknown) (unknown) (unknown) (no date) (unknown) (unknown) ALT (<35) IU/L (units unknown) (unknown) (unknown) (no date) (unknown) (unknown) ALT 33 (<35) IU/L (units unknown) (unknown) (unknown) (no date) (unknown) (unknown) APTT (26-36) SECONDS (units unknown) (unknown) (unknown) (no date) (unknown) (unknown) APTT 19 L (26-36) SECONDS (units unknown) (unknown) (unknown) (no date) (unknown) (unknown) AST (14-36) IU/L (units unknown) (unknown) (unknown) (no date) (unknown) (unknown) AST 23 (14-36) IU/L (units unknown) (unknown) (unknown) (no date) (unknown) (unknown) Accession Number: [id number] ?? (units unknown) (unknown) (unknown) (no date) (unknown) (unknown) Acct:[id number] (units unknown) (unknown) (unknown) (no date) (unknown) (unknown) Age/Sex: 27 / F (units unknown) (unknown) (unknown) (no date) (unknown) (unknown) Albumin (3.5-5.0) g/dL (units unknown) (unknown) (unknown) (no date) (unknown) (unknown) Albumin 4.5 (3.5-5.0 ) g/dL (units unknown) (unknown) (unknown) (no date) (unknown) (unknown) Albumin/Globulin Ratio (1.0-2.8) (units unknown) (unknown) (unknown) (no date) (unknown) (unknown) Albumin/Globulin Ratio 1.6 (1.0-2.8) (units unknown) (unknown) (unknown) (no date) (unknown) (unknown) Alkaline Phosphatase (38-126) U/L (units unknown) (unknown) (unknown) (no date) (unknown) (unknown) Alkaline Phosphatase 97 (38-126) U/L (units unknown) (unknown) (unknown) (no date) (unknown) (unknown) Allergies (units unknown) (unknown) (unknown) (no date) (unknown) (unknown) Allergy/AdvReac Type Severity Reaction Status Date / Time (units unknown) (unknown) (unknown) (no date) (unknown) (unknown) [place] [address] (units unknown) (unknown) (unknown) (no date) (unknown) (unknown) Anemia (units unknown) (unknown) (unknown) (no date) (unknown) (unknown) Approved by: Martha Mosley M.D. on 09/10/2022 at 17:11?? (units unknown) (unknown) (unknown) (no date) (unknown) (unknown) As directed for use with insulin injections (units unknown) (unknown) (unknown) (no date) (unknown) (unknown) Attestation: I personally reviewed and interpreted this ECG as follows: (units unknown) (unknown) (unknown) (no date) (unknown) (unknown) BUN (7-17) mg/dL (units unknown) (unknown) (unknown) (no date) (unknown) (unknown) BUN 11 (7-17) mg/dL (units unknown) (unknown) (unknown) (no date) (unknown) (unknown) BUN/Creatinine Ratio (6-22) (units unknown) (unknown) (unknown) (no date) (unknown) (unknown) BUN/Creatinine Ratio 10.9 (6-22) (units unknown) (unknown) (unknown) (no date) (unknown) (unknown) Baso # (Auto) (0-100 ) /uL (units unknown) (unknown) (unknown) (no date) (unknown) (unknown) Baso # (Auto) 0 (0-100) /uL (units unknown) (unknown) (unknown) (no date) (unknown) (unknown) Baso % (Auto) (0-2) % (units unknown) (unknown) (unknown) (no date) (unknown) (unknown) Baso % (Auto) 0.2 (0-2) % (units unknown) (unknown) (unknown) (no date) (unknown) (unknown) Blood Culture Stat (units unknown) (unknown) (unknown) (no date) (unknown) (unknown) Blood Pressure 131/8 2 09/10/22 16:07 (units unknown) (unknown) (unknown) (no date) (unknown) (unknown) Blood Pressure 131/82 (units unknown) (unknown) (unknown) (no date) (unknown) (unknown) Bones and chest wall:? No suspicious bony lesions.? Overlying soft tissues (units unknown) (unknown) (unknown) (no date) (unknown) (unknown) COMPARISON:? [facility], CR, XR CHEST 1 VIEW, 09/08/2022, 9:29.? (units unknown) (unknown) (unknown) (no date) (unknown) (unknown) COVID19 -Nasal RAPID Stat (units unknown) (unknown) (unknown) (no date) (unknown) (unknown) Calcium (8.4-10.2) mg/dL (units unknown) (unknown) (unknown) (no date) (unknown) (unknown) Calcium 8.7 (8.4-10.2) mg/dL (units unknown) (unknown) (unknown) (no date) (unknown) (unknown) Cannabis hyperemesis syndrome concurrent with and due to cannabis dependence (units unknown) (unknown) (unknown) (no date) (unknown) (unknown) Carbon Dioxide (22-32) mmol/L (units unknown) (unknown) (unknown) (no date) (unknown) (unknown) Carbon Dioxide 23 (22-32) mmol/L (units unknown) (unknown) (unknown) (no date) (unknown) (unknown) Chest x-ray: (units unknown) (unknown) (unknown) (no date) (unknown) (unknown) Chief complaint: Diabetic Problem (units unknown) (unknown) (unknown) (no date) (unknown) (unknown) Chloride (98-107) mmol/L (units unknown) (unknown) (unknown) (no date) (unknown) (unknown) Chloride 93 L (98-107) mmol/L (units unknown) (unknown) (unknown) (no date) (unknown) (unknown) Complete Blood Count AUTO DIFF Stat (units unknown) (unknown) (unknown) (no date) (unknown) (unknown) Comprehensive Metabolic Panel Stat (units unknown) (unknown) (unknown) (no date) (unknown) (unknown) Course (units unknown) (unknown) (unknown) (no date) (unknown) (unknown) Creatinine (0.52-1.04) mg/dL (units unknown) (unknown) (unknown) (no date) (unknown) (unknown) Creatinine 1.01 (0.52-1.04) mg/dL (units unknown) (unknown) (unknown) (no date) (unknown) (unknown) Cyclic vomiting syndrome (units unknown) (unknown) (unknown) (no date) (unknown) (unknown) DKA (diabetic ketoacidoses) (units unknown) (unknown) (unknown) (no date) (unknown) (unknown) : 1995 Acct:[id number] (units unknown) (unknown) (unknown) (no date) (unknown) (unknown) : 1995 (units unknown) (unknown) (unknown) (no date) (unknown) (unknown) Date of Service: 09/10/22 (units unknown) (unknown) (unknown) (no date) (unknown) (unknown) Departure (units unknown) (unknown) (unknown) (no date) (unknown) (unknown) Diabetes mellitus, type I (units unknown) (unknown) (unknown) (no date) (unknown) (unknown) Dictated by: Martha Mosley M.D. on 09/10/2022 at 17:08 ? ? (units unknown) (unknown) (unknown) (no date) (unknown) (unknown) Discharge Plan (units unknown) (unknown) (unknown) (no date) (unknown) (unknown) Discontinued Medications (units unknown) (unknown) (unknown) (no date) (unknown) (unknown) Documented By: AT (units unknown) (unknown) (unknown) (no date) (unknown) (unknown) ECG Data (units unknown) (unknown) (unknown) (no date) (unknown) (unknown) ED Orders (units unknown) (unknown) (unknown) (no date) (unknown) (unknown) EKG-12 Lead Stat (units unknown) (unknown) (unknown) (no date) (unknown) (unknown) ER Physician: Lois Szymanski D.O. (units unknown) (unknown) (unknown) (no date) (unknown) (unknown) Emergency Report (units unknown) (unknown) (unknown) (no date) (unknown) (unknown) Eos # (Auto) (0-450) /uL (units unknown) (unknown) (unknown) (no date) (unknown) (unknown) Eos # (Auto) 0 (0-450) /uL (units unknown) (unknown) (unknown) (no date) (unknown) (unknown) Eos % (Auto) (2-4) % (units unknown) (unknown) (unknown) (no date) (unknown) (unknown) Eos % (Auto) 0.1 L (2-4) % (units unknown) (unknown) (unknown) (no date) (unknown) (unknown) Estimated GFR > 60 (>60) mL/min (units unknown) (unknown) (unknown) (no date) (unknown) (unknown) Estimated GFR (>60) mL/min (units unknown) (unknown) (unknown) (no date) (unknown) (unknown) Exam (units unknown) (unknown) (unknown) (no date) (unknown) (unknown) FINDINGS:? (units unknown) (unknown) (unknown) (no date) (unknown) (unknown) Family History (units unknown) (unknown) (unknown) (no date) (unknown) (unknown) Father Healthy adult (units unknown) (unknown) (unknown) (no date) (unknown) (unknown) Gastroparesis (units unknown) (unknown) (unknown) (no date) (unknown) (unknown) General (units unknown) (unknown) (unknown) (no date) (unknown) (unknown) Globulin (1.7-4.1) g/dL (units unknown) (unknown) (unknown) (no date) (unknown) (unknown) Globulin 2.9 (1.7-4.1) g/dL (units unknown) (unknown) (unknown) (no date) (unknown) (unknown) Glucose (70-100) mg/dL (units unknown) (unknown) (unknown) (no date) (unknown) (unknown) Glucose 210 H (70-100) mg/dL (units unknown) (unknown) (unknown) (no date) (unknown) (unknown) Glucose POC 214 (units unknown) (unknown) (unknown) (no date) (unknown) (unknown) HPI - General Adult (units unknown) (unknown) (unknown) (no date) (unknown) (unknown) Hct (36-46) % (units unknown) (unknown) (unknown) (no date) (unknown) (unknown) Hct 33.1 L (36-46) % (units unknown) (unknown) (unknown) (no date) (unknown) (unknown) Hgb (12.0-16.0) g/dL (units unknown) (unknown) (unknown) (no date) (unknown) (unknown) Hgb 10.9 L (12.0-16.0) g/dL (units unknown) (unknown) (unknown) (no date) (unknown) (unknown) Home Medications (units unknown) (unknown) (unknown) (no date) (unknown) (unknown) Delonte Trevino MD [Primary Care Provider] (units unknown) (unknown) (unknown) (no date) (unknown) (unknown) Hospital, CR, XR CHEST 1V, 06/27/2021, 3:44. (units unknown) (unknown) (unknown) (no date) (unknown) (unknown) IMPRESSION:? No acut e cardiopulmonary disease. (units unknown) (unknown) (unknown) (no date) (unknown) (unknown) INDICATIONS:? suspected sepsis (units unknown) (unknown) (unknown) (no date) (unknown) (unknown) INR (0.9-1.3) (units unknown) (unknown) (unknown) (no date) (unknown) (unknown) INR 1.2 (0.9-1.3) (units unknown) (unknown) (unknown) (no date) (unknown) (unknown) Imaging Data (units unknown) (unknown) (unknown) (no date) (unknown) (unknown) Initial Vital Signs (units unknown) (unknown) (unknown) (no date) (unknown) (unknown) Initial Vital Signs: (units unknown) (unknown) (unknown) (no date) (unknown) (unknown) Insulin dependent diabetes mellitus (units unknown) (unknown) (unknown) (no date) (unknown) (unknown) Interpretation: (units unknown) (unknown) (unknown) (no date) (unknown) (unknown) [address] [address] (units unknown) (unknown) (unknown) (no date) (unknown) (unknown) [facility] (units unknown) (unknown) (unknown) (no date) (unknown) (unknown) [place] (units unknown) (unknown) (unknown) (no date) (unknown) (unknown) Lab Data (units unknown) (unknown) (unknown) (no date) (unknown) (unknown) Lab Results (units unknown) (unknown) (unknown) (no date) (unknown) (unknown) Labs: (units unknown) (unknown) (unknown) (no date) (unknown) (unknown) Lactate (0.7-2.1) mmol/L (units unknown) (unknown) (unknown) (no date) (unknown) (unknown) Lactate (Lactic Acid ) Stat (units unknown) (unknown) (unknown) (no date) (unknown) (unknown) Lactate 1.1 (0.7-2.1 ) mmol/L (units unknown) (unknown) (unknown) (no date) (unknown) (unknown) Last Admin: 09/10/22 16:41 Dose: 1,000 mls/hr (units unknown) (unknown) (unknown) (no date) (unknown) (unknown) Last Admin: 09/10/22 16:41 Dose: 4 mg (units unknown) (unknown) (unknown) (no date) (unknown) (unknown) Limitations: no limitations (units unknown) (unknown) (unknown) (no date) (unknown) (unknown) Lipase (23-300) U/L (units unknown) (unknown) (unknown) (no date) (unknown) (unknown) Lipase 16 L (23-300) U/L (units unknown) (unknown) (unknown) (no date) (unknown) (unknown) Lipase Stat (units unknown) (unknown) (unknown) (no date) (unknown) (unknown) Loc: ED (units unknown) (unknown) (unknown) (no date) (unknown) (unknown) Lungs and pleura:? Lungs are clear.? No pleural effusions or pneumothorax.? (units unknown) (unknown) (unknown) (no date) (unknown) (unknown) Lymph # (Auto) (5520-8596) /uL (units unknown) (unknown) (unknown) (no date) (unknown) (unknown) Lymph # (Auto) 1400 (4537-7837) /uL (units unknown) (unknown) (unknown) (no date) (unknown) (unknown) Lymph % (Auto) (25-40) % (units unknown) (unknown) (unknown) (no date) (unknown) (unknown) Lymph % (Auto) 11.0 L (25-40) % (units unknown) (unknown) (unknown) (no date) (unknown) (unknown) MCH (26-34) PG (units unknown) (unknown) (unknown) (no date) (unknown) (unknown) MCH 26.2 (26-34) PG (units unknown) (unknown) (unknown) (no date) (unknown) (unknown) MCHC (30-36) % (units unknown) (unknown) (unknown) (no date) (unknown) (unknown) MCHC 32.9 (30-36) % (units unknown) (unknown) (unknown) (no date) (unknown) (unknown) MCV (80-100) fL (units unknown) (unknown) (unknown) (no date) (unknown) (unknown) MCV 79.7 L (80-100) fL (units unknown) (unknown) (unknown) (no date) (unknown) (unknown) MR#: [id number] (units unknown) (unknown) (unknown) (no date) (unknown) (unknown) Mediastinum:? Mediastinal contours appear normal.? Heart size is normal.? (units unknown) (unknown) (unknown) (no date) (unknown) (unknown) Medical Decision Making (units unknown) (unknown) (unknown) (no date) (unknown) (unknown) Medical History (units unknown) (unknown) (unknown) (no date) (unknown) (unknown) Medication Instructions Recorded Confirmed (units unknown) (unknown) (unknown) (no date) (unknown) (unknown) Medication Instructions Recorded (units unknown) (unknown) (unknown) (no date) (unknown) (unknown) Migraine headache with aura (units unknown) (unknown) (unknown) (no date) (unknown) (unknown) Mode of arrival: Ambulatory (units unknown) (unknown) (unknown) (no date) (unknown) (unknown) O'Brien # (Auto) (0-900 ) /uL (units unknown) (unknown) (unknown) (no date) (unknown) (unknown) O'Brien # (Auto) 1200 H (0-900) /uL (units unknown) (unknown) (unknown) (no date) (unknown) (unknown) O'Brien % (Auto) (3-14) % (units unknown) (unknown) (unknown) (no date) (unknown) (unknown) O'Brien % (Auto) 9.5 (3-14) % (units unknown) (unknown) (unknown) (no date) (unknown) (unknown) Mother Hypertension (units unknown) (unknown) (unknown) (no date) (unknown) (unknown) Myopia (units unknown) (unknown) (unknown) (no date) (unknown) (unknown) Neut # (Auto) (2143-8591) /uL (units unknown) (unknown) (unknown) (no date) (unknown) (unknown) Neut # (Auto) 9900 H (4790-0984) /uL (units unknown) (unknown) (unknown) (no date) (unknown) (unknown) Neut % (Auto) (50-75 ) % (units unknown) (unknown) (unknown) (no date) (unknown) (unknown) Neut % (Auto) 79.2 H (50-75) % (units unknown) (unknown) (unknown) (no date) (unknown) (unknown) No Action (units unknown) (unknown) (unknown) (no date) (unknown) (unknown) Ondansetron HCl (Ondansetron 4 Mg Odt) 4 mg SL NOW PRN (units unknown) (unknown) (unknown) (no date) (unknown) (unknown) Ondansetron HCl (Ondansetron 4 Mg/2 Ml Inj) 4 mg IV NOW PRN (units unknown) (unknown) (unknown) (no date) (unknown) (unknown) Ordered: (units unknown) (unknown) (unknown) (no date) (unknown) (unknown) Ordering Provider: Lois Szymanski D.O. (units unknown) (unknown) (unknown) (no date) (unknown) (unknown) Orders (units unknown) (unknown) (unknown) (no date) (unknown) (unknown) Oxygen Delivery Method Room Air 09/10/22 16:07 (units unknown) (unknown) (unknown) (no date) (unknown) (unknown) Oxygen Delivery Method Room Air (units unknown) (unknown) (unknown) (no date) (unknown) (unknown) PRN Reason: Nausea And Vomiting (units unknown) (unknown) (unknown) (no date) (unknown) (unknown) PROCEDURE:? XR CHEST 1V (units unknown) (unknown) (unknown) (no date) (unknown) (unknown) PT (10.1-12.7) SECONDS (units unknown) (unknown) (unknown) (no date) (unknown) (unknown) PT 13.6 H (10.1-12.7 ) SECONDS (units unknown) (unknown) (unknown) (no date) (unknown) (unknown) PTT Partial Thromboplastin Sonny Stat (units unknown) (unknown) (unknown) (no date) (unknown) (unknown) Pancreatitis (units unknown) (unknown) (unknown) (no date) (unknown) (unknown) Patient History (units unknown) (unknown) (unknown) (no date) (unknown) (unknown) Patient: Kaur Horton MR (units unknown) (unknown) (unknown) (no date) (unknown) (unknown) Patient: Kaur Horton (units unknown) (unknown) (unknown) (no date) (unknown) (unknown) Plt Count (150-400) X103/uL (units unknown) (unknown) (unknown) (no date) (unknown) (unknown) Plt Count 312 (150-400) X103/uL (units unknown) (unknown) (unknown) (no date) (unknown) (unknown) Point of Care Testing (units unknown) (unknown) (unknown) (no date) (unknown) (unknown) Point of care testing: (units unknown) (unknown) (unknown) (no date) (unknown) (unknown) Potassium (3.4-5.1) mmol/L (units unknown) (unknown) (unknown) (no date) (unknown) (unknown) Potassium 3.2 L (3.4-5.1) mmol/L (units unknown) (unknown) (unknown) (no date) (unknown) (unknown) Prescriptions: (units unknown) (unknown) (unknown) (no date) (unknown) (unknown) Previous Rx's (units unknown) (unknown) (unknown) (no date) (unknown) (unknown) Prior ECG tracings: available for review (units unknown) (unknown) (unknown) (no date) (unknown) (unknown) Procalcitonin (<0.5) ng/mL (units unknown) (unknown) (unknown) (no date) (unknown) (unknown) Procalcitonin 0.14 (<0.5) ng/mL (units unknown) (unknown) (unknown) (no date) (unknown) (unknown) Procalcitonin Stat (units unknown) (unknown) (unknown) (no date) (unknown) (unknown) Procedure: XR chest 1V (units unknown) (unknown) (unknown) (no date) (unknown) (unknown) Prothrombin Time INR Stat (units unknown) (unknown) (unknown) (no date) (unknown) (unknown) Pulse Oximetry 100 09/10/22 16:07 (units unknown) (unknown) (unknown) (no date) (unknown) (unknown) Pulse Oximetry 100 (units unknown) (unknown) (unknown) (no date) (unknown) (unknown) Pulse Rate 112 H 09/10/22 16:07 (units unknown) (unknown) (unknown) (no date) (unknown) (unknown) Pulse Rate 112 H (units unknown) (unknown) (unknown) (no date) (unknown) (unknown) RBC (4.0-5.2) X106/uL (units unknown) (unknown) (unknown) (no date) (unknown) (unknown) RBC 4.16 (4.0-5.2) X106/uL (units unknown) (unknown) (unknown) (no date) (unknown) (unknown) RDW (11.6-14.8) % (units unknown) (unknown) (unknown) (no date) (unknown) (unknown) RDW 17.1 H (11.6-14.8) % (units unknown) (unknown) (unknown) (no date) (unknown) (unknown) ROS Unobtainable: Al l systems reviewed + are unremarkable except as noted in HPI (units unknown) (unknown) (unknown) (no date) (unknown) (unknown) RT Consult Eval and Treat NOW (units unknown) (unknown) (unknown) (no date) (unknown) (unknown) Radiologist's Impression: (units unknown) (unknown) (unknown) (no date) (unknown) (unknown) Referrals: (units unknown) (unknown) (unknown) (no date) (unknown) (unknown) Related Data (units unknown) (unknown) (unknown) (no date) (unknown) (unknown) Respiratory Rate 24 09/10/22 16:07 (units unknown) (unknown) (unknown) (no date) (unknown) (unknown) Respiratory Rate 24 (units unknown) (unknown) (unknown) (no date) (unknown) (unknown) Review of Systems (units unknown) (unknown) (unknown) (no date) (unknown) (unknown) Rx Instructions: (units unknown) (unknown) (unknown) (no date) (unknown) (unknown) See Rx Instructions .ROUTE .MEDSUPPLY Qty: 500 1RF (units unknown) (unknown) (unknown) (no date) (unknown) (unknown) Signed By: (units unknown) (unknown) (unknown) (no date) (unknown) (unknown) Signed (units unknown) (unknown) (unknown) (no date) (unknown) (unknown) Sinus rhythm, rate o f 94 PA 144 QRS 80 QTC of 427. No acute changes. (units unknown) (unknown) (unknown) (no date) (unknown) (unknown) Smoking Status: Current every day smoker (units unknown) (unknown) (unknown) (no date) (unknown) (unknown) Social History (units unknown) (unknown) (unknown) (no date) (unknown) (unknown) Sodium (137-145) mmol/L (units unknown) (unknown) (unknown) (no date) (unknown) (unknown) Sodium 133 L (137-145) mmol/L (units unknown) (unknown) (unknown) (no date) (unknown) (unknown) Sodium Chloride (Normal Saline 0.9%) 1,000 mls @ 1,000 mls/hr IV BOLUS ONE (units unknown) (unknown) (unknown) (no date) (unknown) (unknown) Source: patient, RN notes reviewed and old records reviewed (units unknown) (unknown) (unknown) (no date) (unknown) (unknown) Stated complaint: thinks DKA (units unknown) (unknown) (unknown) (no date) (unknown) (unknown) Status post appendectomy (units unknown) (unknown) (unknown) (no date) (unknown) (unknown) Stop: 09/10/22 17:32 (units unknown) (unknown) (unknown) (no date) (unknown) (unknown) Substance Use Type: marijuana (units unknown) (unknown) (unknown) (no date) (unknown) (unknown) Surgical History (units unknown) (unknown) (unknown) (no date) (unknown) (unknown) Surgical changes and devices:? None.? (units unknown) (unknown) (unknown) (no date) (unknown) (unknown) TECHNIQUE:? One view of the chest was acquired.? (units unknown) (unknown) (unknown) (no date) (unknown) (unknown) Temperature 98.1 F 09/10/22 16:07 (units unknown) (unknown) (unknown) (no date) (unknown) (unknown) Temperature 98.1 F (units unknown) (unknown) (unknown) (no date) (unknown) (unknown) Time Seen by Provider: 09/10/22 16:39 (units unknown) (unknown) (unknown) (no date) (unknown) (unknown) Total Bilirubin (0.2-1.3) mg/dL (units unknown) (unknown) (unknown) (no date) (unknown) (unknown) Total Bilirubin 0.6 (0.2-1.3) mg/dL (units unknown) (unknown) (unknown) (no date) (unknown) (unknown) Total Protein (6.3-8.2) g/dL (units unknown) (unknown) (unknown) (no date) (unknown) (unknown) Total Protein 7.4 (6.3-8.2) g/dL (units unknown) (unknown) (unknown) (no date) (unknown) (unknown) U-100 Insulin aspart) (units unknown) (unknown) (unknown) (no date) (unknown) (unknown) Urine Drug Screen, Rapid Stat (units unknown) (unknown) (unknown) (no date) (unknown) (unknown) Vital Signs - 8 hr (units unknown) (unknown) (unknown) (no date) (unknown) (unknown) Vital Signs (units unknown) (unknown) (unknown) (no date) (unknown) (unknown) Vital signs: (units unknown) (unknown) (unknown) (no date) (unknown) (unknown) WBC (4.5-11.0) X103/uL (units unknown) (unknown) (unknown) (no date) (unknown) (unknown) WBC 12.5 H (4.5-11.0 ) X103/uL (units unknown) (unknown) (unknown) (no date) (unknown) (unknown) XR chest 1V Stat (units unknown) (unknown) (unknown) (no date) (unknown) (unknown) XRay Report (units unknown) (unknown) (unknown) (no date) (unknown) (unknown) [Embedded Image Not Available] (units unknown) (unknown) (unknown) (no date) (unknown) (unknown) alcohol intake frequency: holidays/special occasions only (units unknown) (unknown) (unknown) (no date) (unknown) (unknown) alcohol intake: never (units unknown) (unknown) (unknown) (no date) (unknown) (unknown) and below (units unknown) (unknown) (unknown) (no date) (unknown) (unknown) appear (units unknown) (unknown) (unknown) (no date) (unknown) (unknown) household members: spouse (units unknown) (unknown) (unknown) (no date) (unknown) (unknown) insulin aspart U-100 100 unit/mL 56 unit SUBCUT DAILY 08/12/22 08/14/22 (units unknown) (unknown) (unknown) (no date) (unknown) (unknown) insulin aspart U-100 [Novolog U-100 Insulin aspart] 100 unit/mL solution (units unknown) (unknown) (unknown) (no date) (unknown) (unknown) insulin syringes (disposable) 1 mL #500 ea 08/04/20 (units unknown) (unknown) (unknown) (no date) (unknown) (unknown) ketorolac [From Toradol] Allergy Verified 08/10/22 14:43 (units unknown) (unknown) (unknown) (no date) (unknown) (unknown) lorazepam 1 mg table t (Ativan) 1 mg PO TID PRN anxiety #4 tabs 08/16/22 (units unknown) (unknown) (unknown) (no date) (unknown) (unknown) lorazepam [Ativan] 1 mg tablet (units unknown) (unknown) (unknown) (no date) (unknown) (unknown) metoclopramide HCl 5 mg/5 mL oral 5 mg PO Q8H PRN Nausea 08/12/22 08/12/22 (units unknown) (unknown) (unknown) (no date) (unknown) (unknown) metoclopramide HCl 5 mg/5 mL solution (units unknown) (unknown) (unknown) (no date) (unknown) (unknown) per pump (units unknown) (unknown) (unknown) (no date) (unknown) (unknown) promethazine 12.5 mg tablet 25 mg PO BID PRN nausea and 08/12/22 08/12/22 (units unknown) (unknown) (unknown) (no date) (unknown) (unknown) promethazine 12.5 mg tablet (units unknown) (unknown) (unknown) (no date) (unknown) (unknown) promethazine 25 mg rectal 25 mg PA Q4-6H PRN Nausea And 08/16/22 (units unknown) (unknown) (unknown) (no date) (unknown) (unknown) promethazine [Promethegan] 25 mg suppository (units unknown) (unknown) (unknown) (no date) (unknown) (unknown) solution (units unknown) (unknown) (unknown) (no date) (unknown) (unknown) subcutaneous solutio n (Novolog (units unknown) (unknown) (unknown) (no date) (unknown) (unknown) suppository (Promethegan) Vomiting #12 ea (units unknown) (unknown) (unknown) (no date) (unknown) (unknown) tobacco type: vaping (units unknown) (unknown) (unknown) (no date) (unknown) (unknown) unremarkable.? (units unknown) (unknown) (unknown) (no date) (unknown) (unknown) vomiting (units unknown) (unknown) Result panel 1704 (unknown) (no date) (unknown) (unknown) (no value) (units unknown) (unknown) (unknown) (no date) (unknown) (unknown) #: [id number] (units unknown) (unknown) (unknown) (no date) (unknown) (unknown) (DME) insulin syringes (disposable) 1 mL syringe (units unknown) (unknown) (unknown) (no date) (unknown) (unknown) 09/10/22 09/10/22 09/10/22 Range/Units (units unknown) (unknown) (unknown) (no date) (unknown) (unknown) 09/10/22 16:25 (units unknown) (unknown) (unknown) (no date) (unknown) (unknown) 09/10/22 16:33 (units unknown) (unknown) (unknown) (no date) (unknown) (unknown) 09/10/22 16:56 (units unknown) (unknown) (unknown) (no date) (unknown) (unknown) 09/10/22 17:38 (units unknown) (unknown) (unknown) (no date) (unknown) (unknown) 09/10/22 Range/Units (units unknown) (unknown) (unknown) (no date) (unknown) (unknown) 09/10/22 (units unknown) (unknown) (unknown) (no date) (unknown) (unknown) 1 mg PO TID PRN (Reason: anxiety) Qty: 4 0RF (units unknown) (unknown) (unknown) (no date) (unknown) (unknown) [address] (units unknown) (unknown) (unknown) (no date) (unknown) (unknown) 16:07 (units unknown) (unknown) (unknown) (no date) (unknown) (unknown) 16:25 16:25 16:25 (units unknown) (unknown) (unknown) (no date) (unknown) (unknown) 16:25 (units unknown) (unknown) (unknown) (no date) (unknown) (unknown) 25 mg PO BID PRN (Reason: nausea and vomiting) (units unknown) (unknown) (unknown) (no date) (unknown) (unknown) 25 mg PA Q4-6H PRN (Reason: Nausea And Vomiting) Qty: 12 0RF (units unknown) (unknown) (unknown) (no date) (unknown) (unknown) 5 mg PO Q8H PRN (Reason: Nausea) (units unknown) (unknown) (unknown) (no date) (unknown) (unknown) 56 unit SUBCUT DAILY (units unknown) (unknown) (unknown) (no date) (unknown) (unknown) ? (units unknown) (unknown) (unknown) (no date) (unknown) (unknown) ALT (<35) IU/L (units unknown) (unknown) (unknown) (no date) (unknown) (unknown) ALT 33 (<35) IU/L (units unknown) (unknown) (unknown) (no date) (unknown) (unknown) APTT (26-36) SECONDS (units unknown) (unknown) (unknown) (no date) (unknown) (unknown) APTT 19 L (26-36) SECONDS (units unknown) (unknown) (unknown) (no date) (unknown) (unknown) AST (14-36) IU/L (units unknown) (unknown) (unknown) (no date) (unknown) (unknown) AST 23 (14-36) IU/L (units unknown) (unknown) (unknown) (no date) (unknown) (unknown) Accession Number: [id number] ?? (units unknown) (unknown) (unknown) (no date) (unknown) (unknown) Acct:[id number] (units unknown) (unknown) (unknown) (no date) (unknown) (unknown) Age/Sex: 27 / F (units unknown) (unknown) (unknown) (no date) (unknown) (unknown) Albumin (3.5-5.0) g/dL (units unknown) (unknown) (unknown) (no date) (unknown) (unknown) Albumin 4.5 (3.5-5.0 ) g/dL (units unknown) (unknown) (unknown) (no date) (unknown) (unknown) Albumin/Globulin Ratio (1.0-2.8) (units unknown) (unknown) (unknown) (no date) (unknown) (unknown) Albumin/Globulin Ratio 1.6 (1.0-2.8) (units unknown) (unknown) (unknown) (no date) (unknown) (unknown) Alkaline Phosphatase (38-126) U/L (units unknown) (unknown) (unknown) (no date) (unknown) (unknown) Alkaline Phosphatase 97 (38-126) U/L (units unknown) (unknown) (unknown) (no date) (unknown) (unknown) Allergies (units unknown) (unknown) (unknown) (no date) (unknown) (unknown) Allergy/AdvReac Type Severity Reaction Status Date / Time (units unknown) (unknown) (unknown) (no date) (unknown) (unknown) [place] [address] (units unknown) (unknown) (unknown) (no date) (unknown) (unknown) Anemia (units unknown) (unknown) (unknown) (no date) (unknown) (unknown) Approved by: Martha Mosley M.D. on 09/10/2022 at 17:11?? (units unknown) (unknown) (unknown) (no date) (unknown) (unknown) As directed for use with insulin injections (units unknown) (unknown) (unknown) (no date) (unknown) (unknown) Attestation: I personally reviewed and interpreted this ECG as follows: (units unknown) (unknown) (unknown) (no date) (unknown) (unknown) BUN (7-17) mg/dL (units unknown) (unknown) (unknown) (no date) (unknown) (unknown) BUN 11 (7-17) mg/dL (units unknown) (unknown) (unknown) (no date) (unknown) (unknown) BUN/Creatinine Ratio (6-22) (units unknown) (unknown) (unknown) (no date) (unknown) (unknown) BUN/Creatinine Ratio 10.9 (6-22) (units unknown) (unknown) (unknown) (no date) (unknown) (unknown) Baso # (Auto) (0-100 ) /uL (units unknown) (unknown) (unknown) (no date) (unknown) (unknown) Baso # (Auto) 0 (0-100) /uL (units unknown) (unknown) (unknown) (no date) (unknown) (unknown) Baso % (Auto) (0-2) % (units unknown) (unknown) (unknown) (no date) (unknown) (unknown) Baso % (Auto) 0.2 (0-2) % (units unknown) (unknown) (unknown) (no date) (unknown) (unknown) Blood Culture Stat (units unknown) (unknown) (unknown) (no date) (unknown) (unknown) Blood Pressure 131/8 2 09/10/22 16:07 (units unknown) (unknown) (unknown) (no date) (unknown) (unknown) Blood Pressure 131/82 (units unknown) (unknown) (unknown) (no date) (unknown) (unknown) Bones and chest wall:? No suspicious bony lesions.? Overlying soft tissues (units unknown) (unknown) (unknown) (no date) (unknown) (unknown) COMPARISON:? [facility], CR, XR CHEST 1 VIEW, 09/08/2022, 9:29.? (units unknown) (unknown) (unknown) (no date) (unknown) (unknown) COVID19 -Nasal RAPID Stat (units unknown) (unknown) (unknown) (no date) (unknown) (unknown) Calcium (8.4-10.2) mg/dL (units unknown) (unknown) (unknown) (no date) (unknown) (unknown) Calcium 8.7 (8.4-10.2) mg/dL (units unknown) (unknown) (unknown) (no date) (unknown) (unknown) Cannabis hyperemesis syndrome concurrent with and due to cannabis dependence (units unknown) (unknown) (unknown) (no date) (unknown) (unknown) Carbon Dioxide (22-32) mmol/L (units unknown) (unknown) (unknown) (no date) (unknown) (unknown) Carbon Dioxide 23 (22-32) mmol/L (units unknown) (unknown) (unknown) (no date) (unknown) (unknown) Chest x-ray: (units unknown) (unknown) (unknown) (no date) (unknown) (unknown) Chief complaint: Diabetic Problem (units unknown) (unknown) (unknown) (no date) (unknown) (unknown) Chloride (98-107) mmol/L (units unknown) (unknown) (unknown) (no date) (unknown) (unknown) Chloride 93 L (98-107) mmol/L (units unknown) (unknown) (unknown) (no date) (unknown) (unknown) Complete Blood Count AUTO DIFF Stat (units unknown) (unknown) (unknown) (no date) (unknown) (unknown) Comprehensive Metabolic Panel Stat (units unknown) (unknown) (unknown) (no date) (unknown) (unknown) Course (units unknown) (unknown) (unknown) (no date) (unknown) (unknown) Creatinine (0.52-1.04) mg/dL (units unknown) (unknown) (unknown) (no date) (unknown) (unknown) Creatinine 1.01 (0.52-1.04) mg/dL (units unknown) (unknown) (unknown) (no date) (unknown) (unknown) Cyclic vomiting syndrome (units unknown) (unknown) (unknown) (no date) (unknown) (unknown) DKA (diabetic ketoacidoses) (units unknown) (unknown) (unknown) (no date) (unknown) (unknown) : 1995 Acct:[id number] (units unknown) (unknown) (unknown) (no date) (unknown) (unknown) : 1995 (units unknown) (unknown) (unknown) (no date) (unknown) (unknown) Date of Service: 09/10/22 (units unknown) (unknown) (unknown) (no date) (unknown) (unknown) Departure (units unknown) (unknown) (unknown) (no date) (unknown) (unknown) Diabetes mellitus, type I (units unknown) (unknown) (unknown) (no date) (unknown) (unknown) Dictated by: Martha Mosley M.D. on 09/10/2022 at 17:08 ? ? (units unknown) (unknown) (unknown) (no date) (unknown) (unknown) Discharge Plan (units unknown) (unknown) (unknown) (no date) (unknown) (unknown) Discontinued Medications (units unknown) (unknown) (unknown) (no date) (unknown) (unknown) Documented By: AT (units unknown) (unknown) (unknown) (no date) (unknown) (unknown) ECG Data (units unknown) (unknown) (unknown) (no date) (unknown) (unknown) ED Orders (units unknown) (unknown) (unknown) (no date) (unknown) (unknown) EKG-12 Lead Stat (units unknown) (unknown) (unknown) (no date) (unknown) (unknown) ER Physician: Lois Szymanski D.O. (units unknown) (unknown) (unknown) (no date) (unknown) (unknown) Emergency Report (units unknown) (unknown) (unknown) (no date) (unknown) (unknown) Eos # (Auto) (0-450) /uL (units unknown) (unknown) (unknown) (no date) (unknown) (unknown) Eos # (Auto) 0 (0-450) /uL (units unknown) (unknown) (unknown) (no date) (unknown) (unknown) Eos % (Auto) (2-4) % (units unknown) (unknown) (unknown) (no date) (unknown) (unknown) Eos % (Auto) 0.1 L (2-4) % (units unknown) (unknown) (unknown) (no date) (unknown) (unknown) Estimated GFR > 60 (>60) mL/min (units unknown) (unknown) (unknown) (no date) (unknown) (unknown) Estimated GFR (>60) mL/min (units unknown) (unknown) (unknown) (no date) (unknown) (unknown) Exam (units unknown) (unknown) (unknown) (no date) (unknown) (unknown) FINDINGS:? (units unknown) (unknown) (unknown) (no date) (unknown) (unknown) Family History (units unknown) (unknown) (unknown) (no date) (unknown) (unknown) Father Healthy adult (units unknown) (unknown) (unknown) (no date) (unknown) (unknown) Gastroparesis (units unknown) (unknown) (unknown) (no date) (unknown) (unknown) General (units unknown) (unknown) (unknown) (no date) (unknown) (unknown) Globulin (1.7-4.1) g/dL (units unknown) (unknown) (unknown) (no date) (unknown) (unknown) Globulin 2.9 (1.7-4.1) g/dL (units unknown) (unknown) (unknown) (no date) (unknown) (unknown) Glucose (70-100) mg/dL (units unknown) (unknown) (unknown) (no date) (unknown) (unknown) Glucose 210 H (70-100) mg/dL (units unknown) (unknown) (unknown) (no date) (unknown) (unknown) Glucose POC 214 (units unknown) (unknown) (unknown) (no date) (unknown) (unknown) HPI - General Adult (units unknown) (unknown) (unknown) (no date) (unknown) (unknown) Haloperidol (Haloperidol 5 Mg/Ml Vial) 5 mg IV NOW ONE (units unknown) (unknown) (unknown) (no date) (unknown) (unknown) Hct (36-46) % (units unknown) (unknown) (unknown) (no date) (unknown) (unknown) Hct 33.1 L (36-46) % (units unknown) (unknown) (unknown) (no date) (unknown) (unknown) Hgb (12.0-16.0) g/dL (units unknown) (unknown) (unknown) (no date) (unknown) (unknown) Hgb 10.9 L (12.0-16.0) g/dL (units unknown) (unknown) (unknown) (no date) (unknown) (unknown) Home Medications (units unknown) (unknown) (unknown) (no date) (unknown) (unknown) Delonte Trevino MD [Primary Care Provider] (units unknown) (unknown) (unknown) (no date) (unknown) (unknown) Hospital, CR, XR CHEST 1V, 06/27/2021, 3:44. (units unknown) (unknown) (unknown) (no date) (unknown) (unknown) IMPRESSION:? No acut e cardiopulmonary disease. (units unknown) (unknown) (unknown) (no date) (unknown) (unknown) INDICATIONS:? suspected sepsis (units unknown) (unknown) (unknown) (no date) (unknown) (unknown) INR (0.9-1.3) (units unknown) (unknown) (unknown) (no date) (unknown) (unknown) INR 1.2 (0.9-1.3) (units unknown) (unknown) (unknown) (no date) (unknown) (unknown) Imaging Data (units unknown) (unknown) (unknown) (no date) (unknown) (unknown) Initial Vital Signs (units unknown) (unknown) (unknown) (no date) (unknown) (unknown) Initial Vital Signs: (units unknown) (unknown) (unknown) (no date) (unknown) (unknown) Insulin dependent diabetes mellitus (units unknown) (unknown) (unknown) (no date) (unknown) (unknown) Interpretation: (units unknown) (unknown) (unknown) (no date) (unknown) (unknown) [address] [address] (units unknown) (unknown) (unknown) (no date) (unknown) (unknown) [facility] (units unknown) (unknown) (unknown) (no date) (unknown) (unknown) [place] (units unknown) (unknown) (unknown) (no date) (unknown) (unknown) Lab Data (units unknown) (unknown) (unknown) (no date) (unknown) (unknown) Lab Results (units unknown) (unknown) (unknown) (no date) (unknown) (unknown) Labs: (units unknown) (unknown) (unknown) (no date) (unknown) (unknown) Lactate (0.7-2.1) mmol/L (units unknown) (unknown) (unknown) (no date) (unknown) (unknown) Lactate (Lactic Acid ) Stat (units unknown) (unknown) (unknown) (no date) (unknown) (unknown) Lactate 1.1 (0.7-2.1 ) mmol/L (units unknown) (unknown) (unknown) (no date) (unknown) (unknown) Last Admin: 09/10/22 16:41 Dose: 1,000 mls/hr (units unknown) (unknown) (unknown) (no date) (unknown) (unknown) Last Admin: 09/10/22 16:41 Dose: 4 mg (units unknown) (unknown) (unknown) (no date) (unknown) (unknown) Limitations: no limitations (units unknown) (unknown) (unknown) (no date) (unknown) (unknown) Lipase (23-300) U/L (units unknown) (unknown) (unknown) (no date) (unknown) (unknown) Lipase 16 L (23-300) U/L (units unknown) (unknown) (unknown) (no date) (unknown) (unknown) Lipase Stat (units unknown) (unknown) (unknown) (no date) (unknown) (unknown) Loc: ED (units unknown) (unknown) (unknown) (no date) (unknown) (unknown) Lungs and pleura:? Lungs are clear.? No pleural effusions or pneumothorax.? (units unknown) (unknown) (unknown) (no date) (unknown) (unknown) Lymph # (Auto) (5761-1353) /uL (units unknown) (unknown) (unknown) (no date) (unknown) (unknown) Lymph # (Auto) 1400 (7170-7562) /uL (units unknown) (unknown) (unknown) (no date) (unknown) (unknown) Lymph % (Auto) (25-40) % (units unknown) (unknown) (unknown) (no date) (unknown) (unknown) Lymph % (Auto) 11.0 L (25-40) % (units unknown) (unknown) (unknown) (no date) (unknown) (unknown) MCH (26-34) PG (units unknown) (unknown) (unknown) (no date) (unknown) (unknown) MCH 26.2 (26-34) PG (units unknown) (unknown) (unknown) (no date) (unknown) (unknown) MCHC (30-36) % (units unknown) (unknown) (unknown) (no date) (unknown) (unknown) MCHC 32.9 (30-36) % (units unknown) (unknown) (unknown) (no date) (unknown) (unknown) MCV (80-100) fL (units unknown) (unknown) (unknown) (no date) (unknown) (unknown) MCV 79.7 L (80-100) fL (units unknown) (unknown) (unknown) (no date) (unknown) (unknown) MR#: [id number] (units unknown) (unknown) (unknown) (no date) (unknown) (unknown) Mediastinum:? Mediastinal contours appear normal.? Heart size is normal.? (units unknown) (unknown) (unknown) (no date) (unknown) (unknown) Medical Decision Making (units unknown) (unknown) (unknown) (no date) (unknown) (unknown) Medical History (units unknown) (unknown) (unknown) (no date) (unknown) (unknown) Medication Instructions Recorded Confirmed (units unknown) (unknown) (unknown) (no date) (unknown) (unknown) Medication Instructions Recorded (units unknown) (unknown) (unknown) (no date) (unknown) (unknown) Migraine headache with aura (units unknown) (unknown) (unknown) (no date) (unknown) (unknown) Mode of arrival: Ambulatory (units unknown) (unknown) (unknown) (no date) (unknown) (unknown) O'Brien # (Auto) (0-900 ) /uL (units unknown) (unknown) (unknown) (no date) (unknown) (unknown) O'Brien # (Auto) 1200 H (0-900) /uL (units unknown) (unknown) (unknown) (no date) (unknown) (unknown) O'Brien % (Auto) (3-14) % (units unknown) (unknown) (unknown) (no date) (unknown) (unknown) O'Brien % (Auto) 9.5 (3-14) % (units unknown) (unknown) (unknown) (no date) (unknown) (unknown) Mother Hypertension (units unknown) (unknown) (unknown) (no date) (unknown) (unknown) Myopia (units unknown) (unknown) (unknown) (no date) (unknown) (unknown) Neut # (Auto) (1871-2997) /uL (units unknown) (unknown) (unknown) (no date) (unknown) (unknown) Neut # (Auto) 9900 H (5482-8484) /uL (units unknown) (unknown) (unknown) (no date) (unknown) (unknown) Neut % (Auto) (50-75 ) % (units unknown) (unknown) (unknown) (no date) (unknown) (unknown) Neut % (Auto) 79.2 H (50-75) % (units unknown) (unknown) (unknown) (no date) (unknown) (unknown) No Action (units unknown) (unknown) (unknown) (no date) (unknown) (unknown) Ondansetron HCl (Ondansetron 4 Mg Odt) 4 mg SL NOW PRN (units unknown) (unknown) (unknown) (no date) (unknown) (unknown) Ondansetron HCl (Ondansetron 4 Mg/2 Ml Inj) 4 mg IV NOW PRN (units unknown) (unknown) (unknown) (no date) (unknown) (unknown) Ordered: (units unknown) (unknown) (unknown) (no date) (unknown) (unknown) Ordering Provider: Lois Szymanski D.O. (units unknown) (unknown) (unknown) (no date) (unknown) (unknown) Orders (units unknown) (unknown) (unknown) (no date) (unknown) (unknown) Oxygen Delivery Method Room Air 09/10/22 16:07 (units unknown) (unknown) (unknown) (no date) (unknown) (unknown) Oxygen Delivery Method Room Air (units unknown) (unknown) (unknown) (no date) (unknown) (unknown) PRN Reason: Nausea And Vomiting (units unknown) (unknown) (unknown) (no date) (unknown) (unknown) PROCEDURE:? XR CHEST 1V (units unknown) (unknown) (unknown) (no date) (unknown) (unknown) PT (10.1-12.7) SECONDS (units unknown) (unknown) (unknown) (no date) (unknown) (unknown) PT 13.6 H (10.1-12.7 ) SECONDS (units unknown) (unknown) (unknown) (no date) (unknown) (unknown) PTT Partial Thromboplastin Sonny Stat (units unknown) (unknown) (unknown) (no date) (unknown) (unknown) Pancreatitis (units unknown) (unknown) (unknown) (no date) (unknown) (unknown) Patient History (units unknown) (unknown) (unknown) (no date) (unknown) (unknown) Patient: Kaur Horton MR (units unknown) (unknown) (unknown) (no date) (unknown) (unknown) Patient: Kaur Horton (units unknown) (unknown) (unknown) (no date) (unknown) (unknown) Plt Count (150-400) X103/uL (units unknown) (unknown) (unknown) (no date) (unknown) (unknown) Plt Count 312 (150-400) X103/uL (units unknown) (unknown) (unknown) (no date) (unknown) (unknown) Point of Care Testing (units unknown) (unknown) (unknown) (no date) (unknown) (unknown) Point of care testing: (units unknown) (unknown) (unknown) (no date) (unknown) (unknown) Potassium (3.4-5.1) mmol/L (units unknown) (unknown) (unknown) (no date) (unknown) (unknown) Potassium 3.2 L (3.4-5.1) mmol/L (units unknown) (unknown) (unknown) (no date) (unknown) (unknown) Prescriptions: (units unknown) (unknown) (unknown) (no date) (unknown) (unknown) Previous Rx's (units unknown) (unknown) (unknown) (no date) (unknown) (unknown) Prior ECG tracings: available for review (units unknown) (unknown) (unknown) (no date) (unknown) (unknown) Procalcitonin (<0.5) ng/mL (units unknown) (unknown) (unknown) (no date) (unknown) (unknown) Procalcitonin 0.14 (<0.5) ng/mL (units unknown) (unknown) (unknown) (no date) (unknown) (unknown) Procalcitonin Stat (units unknown) (unknown) (unknown) (no date) (unknown) (unknown) Procedure: XR chest 1V (units unknown) (unknown) (unknown) (no date) (unknown) (unknown) Prothrombin Time INR Stat (units unknown) (unknown) (unknown) (no date) (unknown) (unknown) Pulse Oximetry 100 09/10/22 16:07 (units unknown) (unknown) (unknown) (no date) (unknown) (unknown) Pulse Oximetry 100 (units unknown) (unknown) (unknown) (no date) (unknown) (unknown) Pulse Rate 112 H 09/10/22 16:07 (units unknown) (unknown) (unknown) (no date) (unknown) (unknown) Pulse Rate 112 H (units unknown) (unknown) (unknown) (no date) (unknown) (unknown) RBC (4.0-5.2) X106/uL (units unknown) (unknown) (unknown) (no date) (unknown) (unknown) RBC 4.16 (4.0-5.2) X106/uL (units unknown) (unknown) (unknown) (no date) (unknown) (unknown) RDW (11.6-14.8) % (units unknown) (unknown) (unknown) (no date) (unknown) (unknown) RDW 17.1 H (11.6-14.8) % (units unknown) (unknown) (unknown) (no date) (unknown) (unknown) ROS Unobtainable: Al l systems reviewed + are unremarkable except as noted in HPI (units unknown) (unknown) (unknown) (no date) (unknown) (unknown) RT Consult Eval and Treat NOW (units unknown) (unknown) (unknown) (no date) (unknown) (unknown) Radiologist's Impression: (units unknown) (unknown) (unknown) (no date) (unknown) (unknown) Referrals: (units unknown) (unknown) (unknown) (no date) (unknown) (unknown) Related Data (units unknown) (unknown) (unknown) (no date) (unknown) (unknown) Respiratory Rate 24 09/10/22 16:07 (units unknown) (unknown) (unknown) (no date) (unknown) (unknown) Respiratory Rate 24 (units unknown) (unknown) (unknown) (no date) (unknown) (unknown) Review of Systems (units unknown) (unknown) (unknown) (no date) (unknown) (unknown) Rx Instructions: (units unknown) (unknown) (unknown) (no date) (unknown) (unknown) See Rx Instructions .ROUTE .MEDSUPPLY Qty: 500 1RF (units unknown) (unknown) (unknown) (no date) (unknown) (unknown) Signed By: (units unknown) (unknown) (unknown) (no date) (unknown) (unknown) Signed (units unknown) (unknown) (unknown) (no date) (unknown) (unknown) Sinus rhythm, rate o f 94 PA 144 QRS 80 QTC of 427. No acute changes. (units unknown) (unknown) (unknown) (no date) (unknown) (unknown) Smoking Status: Current every day smoker (units unknown) (unknown) (unknown) (no date) (unknown) (unknown) Social History (units unknown) (unknown) (unknown) (no date) (unknown) (unknown) Sodium (137-145) mmol/L (units unknown) (unknown) (unknown) (no date) (unknown) (unknown) Sodium 133 L (137-145) mmol/L (units unknown) (unknown) (unknown) (no date) (unknown) (unknown) Sodium Chloride (Normal Saline 0.9%) 1,000 mls @ 1,000 mls/hr IV BOLUS ONE (units unknown) (unknown) (unknown) (no date) (unknown) (unknown) Source: patient, RN notes reviewed and old records reviewed (units unknown) (unknown) (unknown) (no date) (unknown) (unknown) Stated complaint: thinks DKA (units unknown) (unknown) (unknown) (no date) (unknown) (unknown) Status post appendectomy (units unknown) (unknown) (unknown) (no date) (unknown) (unknown) Stop: 09/10/22 17:32 (units unknown) (unknown) (unknown) (no date) (unknown) (unknown) Stop: 09/10/22 17:49 (units unknown) (unknown) (unknown) (no date) (unknown) (unknown) Stop: 09/10/22 18:47 (units unknown) (unknown) (unknown) (no date) (unknown) (unknown) Substance Use Type: marijuana (units unknown) (unknown) (unknown) (no date) (unknown) (unknown) Surgical History (units unknown) (unknown) (unknown) (no date) (unknown) (unknown) Surgical changes and devices:? None.? (units unknown) (unknown) (unknown) (no date) (unknown) (unknown) TECHNIQUE:? One view of the chest was acquired.? (units unknown) (unknown) (unknown) (no date) (unknown) (unknown) Temperature 98.1 F 09/10/22 16:07 (units unknown) (unknown) (unknown) (no date) (unknown) (unknown) Temperature 98.1 F (units unknown) (unknown) (unknown) (no date) (unknown) (unknown) Time Seen by Provider: 09/10/22 16:39 (units unknown) (unknown) (unknown) (no date) (unknown) (unknown) Total Bilirubin (0.2-1.3) mg/dL (units unknown) (unknown) (unknown) (no date) (unknown) (unknown) Total Bilirubin 0.6 (0.2-1.3) mg/dL (units unknown) (unknown) (unknown) (no date) (unknown) (unknown) Total Protein (6.3-8.2) g/dL (units unknown) (unknown) (unknown) (no date) (unknown) (unknown) Total Protein 7.4 (6.3-8.2) g/dL (units unknown) (unknown) (unknown) (no date) (unknown) (unknown) U-100 Insulin aspart) (units unknown) (unknown) (unknown) (no date) (unknown) (unknown) Urine Drug Screen, Rapid Stat (units unknown) (unknown) (unknown) (no date) (unknown) (unknown) Vital Signs - 8 hr (units unknown) (unknown) (unknown) (no date) (unknown) (unknown) Vital Signs (units unknown) (unknown) (unknown) (no date) (unknown) (unknown) Vital signs: (units unknown) (unknown) (unknown) (no date) (unknown) (unknown) WBC (4.5-11.0) X103/uL (units unknown) (unknown) (unknown) (no date) (unknown) (unknown) WBC 12.5 H (4.5-11.0 ) X103/uL (units unknown) (unknown) (unknown) (no date) (unknown) (unknown) XR chest 1V Stat (units unknown) (unknown) (unknown) (no date) (unknown) (unknown) XRay Report (units unknown) (unknown) (unknown) (no date) (unknown) (unknown) [Embedded Image Not Available] (units unknown) (unknown) (unknown) (no date) (unknown) (unknown) alcohol intake frequency: holidays/special occasions only (units unknown) (unknown) (unknown) (no date) (unknown) (unknown) alcohol intake: never (units unknown) (unknown) (unknown) (no date) (unknown) (unknown) and below (units unknown) (unknown) (unknown) (no date) (unknown) (unknown) appear (units unknown) (unknown) (unknown) (no date) (unknown) (unknown) household members: spouse (units unknown) (unknown) (unknown) (no date) (unknown) (unknown) insulin aspart U-100 100 unit/mL 56 unit SUBCUT DAILY 08/12/22 08/14/22 (units unknown) (unknown) (unknown) (no date) (unknown) (unknown) insulin aspart U-100 [Novolog U-100 Insulin aspart] 100 unit/mL solution (units unknown) (unknown) (unknown) (no date) (unknown) (unknown) insulin syringes (disposable) 1 mL #500 ea 08/04/20 (units unknown) (unknown) (unknown) (no date) (unknown) (unknown) ketorolac [From Toradol] Allergy Verified 08/10/22 14:43 (units unknown) (unknown) (unknown) (no date) (unknown) (unknown) lorazepam 1 mg table t (Ativan) 1 mg PO TID PRN anxiety #4 tabs 08/16/22 (units unknown) (unknown) (unknown) (no date) (unknown) (unknown) lorazepam [Ativan] 1 mg tablet (units unknown) (unknown) (unknown) (no date) (unknown) (unknown) metoclopramide HCl 5 mg/5 mL oral 5 mg PO Q8H PRN Nausea 08/12/22 08/12/22 (units unknown) (unknown) (unknown) (no date) (unknown) (unknown) metoclopramide HCl 5 mg/5 mL solution (units unknown) (unknown) (unknown) (no date) (unknown) (unknown) per pump (units unknown) (unknown) (unknown) (no date) (unknown) (unknown) promethazine 12.5 mg tablet 25 mg PO BID PRN nausea and 08/12/22 08/12/22 (units unknown) (unknown) (unknown) (no date) (unknown) (unknown) promethazine 12.5 mg tablet (units unknown) (unknown) (unknown) (no date) (unknown) (unknown) promethazine 25 mg rectal 25 mg PA Q4-6H PRN Nausea And 08/16/22 (units unknown) (unknown) (unknown) (no date) (unknown) (unknown) promethazine [Promethegan] 25 mg suppository (units unknown) (unknown) (unknown) (no date) (unknown) (unknown) solution (units unknown) (unknown) (unknown) (no date) (unknown) (unknown) subcutaneous solutio n (Novolog (units unknown) (unknown) (unknown) (no date) (unknown) (unknown) suppository (Promethegan) Vomiting #12 ea (units unknown) (unknown) (unknown) (no date) (unknown) (unknown) tobacco type: vaping (units unknown) (unknown) (unknown) (no date) (unknown) (unknown) unremarkable.? (units unknown) (unknown) (unknown) (no date) (unknown) (unknown) vomiting (units unknown) (unknown) Result panel 1705 (unknown) (no date) (unknown) (unknown) (no value) (units unknown) (unknown) (unknown) (no date) (unknown) (unknown) #: [id number] (units unknown) (unknown) (unknown) (no date) (unknown) (unknown) (DME) insulin syringes (disposable) 1 mL syringe (units unknown) (unknown) (unknown) (no date) (unknown) (unknown) 09/10/22 09/10/22 09/10/22 Range/Units (units unknown) (unknown) (unknown) (no date) (unknown) (unknown) 09/10/22 16:25 (units unknown) (unknown) (unknown) (no date) (unknown) (unknown) 09/10/22 16:33 (units unknown) (unknown) (unknown) (no date) (unknown) (unknown) 09/10/22 16:56 (units unknown) (unknown) (unknown) (no date) (unknown) (unknown) 09/10/22 17:38 (units unknown) (unknown) (unknown) (no date) (unknown) (unknown) 09/10/22 17:50 (units unknown) (unknown) (unknown) (no date) (unknown) (unknown) 09/10/22 Range/Units (units unknown) (unknown) (unknown) (no date) (unknown) (unknown) 09/10/22 (units unknown) (unknown) (unknown) (no date) (unknown) (unknown) 1 mg PO TID PRN (Reason: anxiety) Qty: 4 0RF (units unknown) (unknown) (unknown) (no date) (unknown) (unknown) [facility] (units unknown) (unknown) (unknown) (no date) (unknown) (unknown) 16:07 (units unknown) (unknown) (unknown) (no date) (unknown) (unknown) 16:25 16:25 16:25 (units unknown) (unknown) (unknown) (no date) (unknown) (unknown) 16:25 (units unknown) (unknown) (unknown) (no date) (unknown) (unknown) 25 mg PO BID PRN (Reason: nausea and vomiting) (units unknown) (unknown) (unknown) (no date) (unknown) (unknown) 25 mg PA Q4-6H PRN (Reason: Nausea And Vomiting) Qty: 12 0RF (units unknown) (unknown) (unknown) (no date) (unknown) (unknown) 5 mg PO Q8H PRN (Reason: Nausea) (units unknown) (unknown) (unknown) (no date) (unknown) (unknown) 56 unit SUBCUT DAILY (units unknown) (unknown) (unknown) (no date) (unknown) (unknown) ? (units unknown) (unknown) (unknown) (no date) (unknown) (unknown) ABDOMEN: Soft, nontender. Normoactive bowel sounds all 4 quadrants. No (units unknown) (unknown) (unknown) (no date) (unknown) (unknown) ALT (<35) IU/L (units unknown) (unknown) (unknown) (no date) (unknown) (unknown) ALT 33 (<35) IU/L (units unknown) (unknown) (unknown) (no date) (unknown) (unknown) APTT (26-36) SECONDS (units unknown) (unknown) (unknown) (no date) (unknown) (unknown) APTT 19 L (26-36) SECONDS (units unknown) (unknown) (unknown) (no date) (unknown) (unknown) AST (14-36) IU/L (units unknown) (unknown) (unknown) (no date) (unknown) (unknown) AST 23 (14-36) IU/L (units unknown) (unknown) (unknown) (no date) (unknown) (unknown) Accession Number: [id number] ?? (units unknown) (unknown) (unknown) (no date) (unknown) (unknown) Acct:[id number] (units unknown) (unknown) (unknown) (no date) (unknown) (unknown) Age/Sex: 27 / F (units unknown) (unknown) (unknown) (no date) (unknown) (unknown) Albumin (3.5-5.0) g/dL (units unknown) (unknown) (unknown) (no date) (unknown) (unknown) Albumin 4.5 (3.5-5.0 ) g/dL (units unknown) (unknown) (unknown) (no date) (unknown) (unknown) Albumin/Globulin Ratio (1.0-2.8) (units unknown) (unknown) (unknown) (no date) (unknown) (unknown) Albumin/Globulin Ratio 1.6 (1.0-2.8) (units unknown) (unknown) (unknown) (no date) (unknown) (unknown) Alkaline Phosphatase (38-126) U/L (units unknown) (unknown) (unknown) (no date) (unknown) (unknown) Alkaline Phosphatase 97 (38-126) U/L (units unknown) (unknown) (unknown) (no date) (unknown) (unknown) Allergies (units unknown) (unknown) (unknown) (no date) (unknown) (unknown) Allergy/AdvReac Type Severity Reaction Status Date / Time (units unknown) (unknown) (unknown) (no date) (unknown) (unknown) [place] [address] (units unknown) (unknown) (unknown) (no date) (unknown) (unknown) Anemia (units unknown) (unknown) (unknown) (no date) (unknown) (unknown) Approved by: Martha Mosley M.D. on 09/10/2022 at 17:11?? (units unknown) (unknown) (unknown) (no date) (unknown) (unknown) As directed for use with insulin injections (units unknown) (unknown) (unknown) (no date) (unknown) (unknown) Attestation: I personally reviewed and interpreted this ECG as follows: (units unknown) (unknown) (unknown) (no date) (unknown) (unknown) BUN (7-17) mg/dL (units unknown) (unknown) (unknown) (no date) (unknown) (unknown) BUN 11 (7-17) mg/dL (units unknown) (unknown) (unknown) (no date) (unknown) (unknown) BUN/Creatinine Ratio (6-22) (units unknown) (unknown) (unknown) (no date) (unknown) (unknown) BUN/Creatinine Ratio 10.9 (6-22) (units unknown) (unknown) (unknown) (no date) (unknown) (unknown) Baso # (Auto) (0-100 ) /uL (units unknown) (unknown) (unknown) (no date) (unknown) (unknown) Baso # (Auto) 0 (0-100) /uL (units unknown) (unknown) (unknown) (no date) (unknown) (unknown) Baso % (Auto) (0-2) % (units unknown) (unknown) (unknown) (no date) (unknown) (unknown) Baso % (Auto) 0.2 (0-2) % (units unknown) (unknown) (unknown) (no date) (unknown) (unknown) Blood Culture Stat (units unknown) (unknown) (unknown) (no date) (unknown) (unknown) Blood Pressure 131/8 2 09/10/22 16:07 (units unknown) (unknown) (unknown) (no date) (unknown) (unknown) Blood Pressure 131/82 (units unknown) (unknown) (unknown) (no date) (unknown) (unknown) Bones and chest wall:? No suspicious bony lesions.? Overlying soft tissues (units unknown) (unknown) (unknown) (no date) (unknown) (unknown) CARDIOVASCULAR: Regular rate and rhythm without murmurs, rubs or gallops. (units unknown) (unknown) (unknown) (no date) (unknown) (unknown) COMPARISON:? [facility], CR, XR CHEST 1 VIEW, 09/08/2022, 9:29.? (units unknown) (unknown) (unknown) (no date) (unknown) (unknown) COVID19 -Nasal RAPID Stat (units unknown) (unknown) (unknown) (no date) (unknown) (unknown) Calcium (8.4-10.2) mg/dL (units unknown) (unknown) (unknown) (no date) (unknown) (unknown) Calcium 8.7 (8.4-10.2) mg/dL (units unknown) (unknown) (unknown) (no date) (unknown) (unknown) Cannabis hyperemesis syndrome concurrent with and due to cannabis dependence (units unknown) (unknown) (unknown) (no date) (unknown) (unknown) Carbon Dioxide (22-32) mmol/L (units unknown) (unknown) (unknown) (no date) (unknown) (unknown) Carbon Dioxide 23 (22-32) mmol/L (units unknown) (unknown) (unknown) (no date) (unknown) (unknown) Chest x-ray: (units unknown) (unknown) (unknown) (no date) (unknown) (unknown) Chief complaint: Diabetic Problem (units unknown) (unknown) (unknown) (no date) (unknown) (unknown) Chloride (98-107) mmol/L (units unknown) (unknown) (unknown) (no date) (unknown) (unknown) Chloride 93 L (98-107) mmol/L (units unknown) (unknown) (unknown) (no date) (unknown) (unknown) Complete Blood Count AUTO DIFF Stat (units unknown) (unknown) (unknown) (no date) (unknown) (unknown) Comprehensive Metabolic Panel Stat (units unknown) (unknown) (unknown) (no date) (unknown) (unknown) Course (units unknown) (unknown) (unknown) (no date) (unknown) (unknown) Creatinine (0.52-1.04) mg/dL (units unknown) (unknown) (unknown) (no date) (unknown) (unknown) Creatinine 1.01 (0.52-1.04) mg/dL (units unknown) (unknown) (unknown) (no date) (unknown) (unknown) Cyclic vomiting syndrome (units unknown) (unknown) (unknown) (no date) (unknown) (unknown) DKA (diabetic ketoacidoses) (units unknown) (unknown) (unknown) (no date) (unknown) (unknown) : 1995 Acct:[id number] (units unknown) (unknown) (unknown) (no date) (unknown) (unknown) : 1995 (units unknown) (unknown) (unknown) (no date) (unknown) (unknown) Date of Service: 09/10/22 (units unknown) (unknown) (unknown) (no date) (unknown) (unknown) Departure (units unknown) (unknown) (unknown) (no date) (unknown) (unknown) Diabetes mellitus, type I (units unknown) (unknown) (unknown) (no date) (unknown) (unknown) Dictated by: Martha Mosley M.D. on 09/10/2022 at 17:08 ? ? (units unknown) (unknown) (unknown) (no date) (unknown) (unknown) Diphenhydramine HCl (Diphenhydramine 50 Mg/Ml Vial) 50 mg IV NOW ONE (units unknown) (unknown) (unknown) (no date) (unknown) (unknown) Discharge Plan (units unknown) (unknown) (unknown) (no date) (unknown) (unknown) Discontinued Medications (units unknown) (unknown) (unknown) (no date) (unknown) (unknown) Documented By: AT (units unknown) (unknown) (unknown) (no date) (unknown) (unknown) ECG Data (units unknown) (unknown) (unknown) (no date) (unknown) (unknown) ED Orders (units unknown) (unknown) (unknown) (no date) (unknown) (unknown) EKG-12 Lead Stat (units unknown) (unknown) (unknown) (no date) (unknown) (unknown) ER Physician: Lois Szymanski D.O. (units unknown) (unknown) (unknown) (no date) (unknown) (unknown) EXTREMITIES: Normal range of motion, no clubbing or edema. Neurovascularly (units unknown) (unknown) (unknown) (no date) (unknown) (unknown) Emergency Report (units unknown) (unknown) (unknown) (no date) (unknown) (unknown) Eos # (Auto) (0-450) /uL (units unknown) (unknown) (unknown) (no date) (unknown) (unknown) Eos # (Auto) 0 (0-450) /uL (units unknown) (unknown) (unknown) (no date) (unknown) (unknown) Eos % (Auto) (2-4) % (units unknown) (unknown) (unknown) (no date) (unknown) (unknown) Eos % (Auto) 0.1 L (2-4) % (units unknown) (unknown) (unknown) (no date) (unknown) (unknown) Estimated GFR > 60 (>60) mL/min (units unknown) (unknown) (unknown) (no date) (unknown) (unknown) Estimated GFR (>60) mL/min (units unknown) (unknown) (unknown) (no date) (unknown) (unknown) Exam Narrative: (units unknown) (unknown) (unknown) (no date) (unknown) (unknown) Exam (units unknown) (unknown) (unknown) (no date) (unknown) (unknown) FINDINGS:? (units unknown) (unknown) (unknown) (no date) (unknown) (unknown) Family History (units unknown) (unknown) (unknown) (no date) (unknown) (unknown) Father Healthy adult (units unknown) (unknown) (unknown) (no date) (unknown) (unknown) GENERAL: Alert and oriented x three, female in moderate distress. Patient is (units unknown) (unknown) (unknown) (no date) (unknown) (unknown) : No CVA tenderness (units unknown) (unknown) (unknown) (no date) (unknown) (unknown) Gastroparesis (units unknown) (unknown) (unknown) (no date) (unknown) (unknown) General (units unknown) (unknown) (unknown) (no date) (unknown) (unknown) Globulin (1.7-4.1) g/dL (units unknown) (unknown) (unknown) (no date) (unknown) (unknown) Globulin 2.9 (1.7-4.1) g/dL (units unknown) (unknown) (unknown) (no date) (unknown) (unknown) Glucose (70-100) mg/dL (units unknown) (unknown) (unknown) (no date) (unknown) (unknown) Glucose 210 H (70-100) mg/dL (units unknown) (unknown) (unknown) (no date) (unknown) (unknown) Glucose POC 214 (units unknown) (unknown) (unknown) (no date) (unknown) (unknown) HEENT: Head normocephalic, atraumatic, EOMI, pupils reactive, face symmetric, (units unknown) (unknown) (unknown) (no date) (unknown) (unknown) HPI - General Adult (units unknown) (unknown) (unknown) (no date) (unknown) (unknown) HPI narrative: (units unknown) (unknown) (unknown) (no date) (unknown) (unknown) Haloperidol (Haloperidol 5 Mg/Ml Vial) 5 mg IV NOW ONE (units unknown) (unknown) (unknown) (no date) (unknown) (unknown) Hct (36-46) % (units unknown) (unknown) (unknown) (no date) (unknown) (unknown) Hct 33.1 L (36-46) % (units unknown) (unknown) (unknown) (no date) (unknown) (unknown) Hgb (12.0-16.0) g/dL (units unknown) (unknown) (unknown) (no date) (unknown) (unknown) Hgb 10.9 L (12.0-16.0) g/dL (units unknown) (unknown) (unknown) (no date) (unknown) (unknown) History of Present Illness (units unknown) (unknown) (unknown) (no date) (unknown) (unknown) Home Medications (units unknown) (unknown) (unknown) (no date) (unknown) (unknown) Delonte Trevino MD [Primary Care Provider] (units unknown) (unknown) (unknown) (no date) (unknown) (unknown) Hospital, CR, XR CHEST 1V, 06/27/2021, 3:44. (units unknown) (unknown) (unknown) (no date) (unknown) (unknown) IMPRESSION:? No acut e cardiopulmonary disease. (units unknown) (unknown) (unknown) (no date) (unknown) (unknown) INDICATIONS:? suspected sepsis (units unknown) (unknown) (unknown) (no date) (unknown) (unknown) INR (0.9-1.3) (units unknown) (unknown) (unknown) (no date) (unknown) (unknown) INR 1.2 (0.9-1.3) (units unknown) (unknown) (unknown) (no date) (unknown) (unknown) Imaging Data (units unknown) (unknown) (unknown) (no date) (unknown) (unknown) Initial Vital Signs (units unknown) (unknown) (unknown) (no date) (unknown) (unknown) Initial Vital Signs: (units unknown) (unknown) (unknown) (no date) (unknown) (unknown) Insulin dependent diabetes mellitus (units unknown) (unknown) (unknown) (no date) (unknown) (unknown) Interpretation: (units unknown) (unknown) (unknown) (no date) (unknown) (unknown) [address] [address] (units unknown) (unknown) (unknown) (no date) (unknown) (unknown) [facility] (units unknown) (unknown) (unknown) (no date) (unknown) (unknown) [place] (units unknown) (unknown) (unknown) (no date) (unknown) (unknown) Lab Data (units unknown) (unknown) (unknown) (no date) (unknown) (unknown) Lab Results (units unknown) (unknown) (unknown) (no date) (unknown) (unknown) Labs: (units unknown) (unknown) (unknown) (no date) (unknown) (unknown) Lactate (0.7-2.1) mmol/L (units unknown) (unknown) (unknown) (no date) (unknown) (unknown) Lactate (Lactic Acid ) Stat (units unknown) (unknown) (unknown) (no date) (unknown) (unknown) Lactate 1.1 (0.7-2.1 ) mmol/L (units unknown) (unknown) (unknown) (no date) (unknown) (unknown) Last Admin: 09/10/22 16:41 Dose: 1,000 mls/hr (units unknown) (unknown) (unknown) (no date) (unknown) (unknown) Last Admin: 09/10/22 16:41 Dose: 4 mg (units unknown) (unknown) (unknown) (no date) (unknown) (unknown) Limitations: no limitations (units unknown) (unknown) (unknown) (no date) (unknown) (unknown) Lipase (23-300) U/L (units unknown) (unknown) (unknown) (no date) (unknown) (unknown) Lipase 16 L (23-300) U/L (units unknown) (unknown) (unknown) (no date) (unknown) (unknown) Lipase Stat (units unknown) (unknown) (unknown) (no date) (unknown) (unknown) Loc: ED (units unknown) (unknown) (unknown) (no date) (unknown) (unknown) Lungs and pleura:? Lungs are clear.? No pleural effusions or pneumothorax.? (units unknown) (unknown) (unknown) (no date) (unknown) (unknown) Lymph # (Auto) (1482-4210) /uL (units unknown) (unknown) (unknown) (no date) (unknown) (unknown) Lymph # (Auto) 1400 (1065-4407) /uL (units unknown) (unknown) (unknown) (no date) (unknown) (unknown) Lymph % (Auto) (25-40) % (units unknown) (unknown) (unknown) (no date) (unknown) (unknown) Lymph % (Auto) 11.0 L (25-40) % (units unknown) (unknown) (unknown) (no date) (unknown) (unknown) MCH (26-34) PG (units unknown) (unknown) (unknown) (no date) (unknown) (unknown) MCH 26.2 (26-34) PG (units unknown) (unknown) (unknown) (no date) (unknown) (unknown) MCHC (30-36) % (units unknown) (unknown) (unknown) (no date) (unknown) (unknown) MCHC 32.9 (30-36) % (units unknown) (unknown) (unknown) (no date) (unknown) (unknown) MCV (80-100) fL (units unknown) (unknown) (unknown) (no date) (unknown) (unknown) MCV 79.7 L (80-100) fL (units unknown) (unknown) (unknown) (no date) (unknown) (unknown) MR#: [id number] (units unknown) (unknown) (unknown) (no date) (unknown) (unknown) Mediastinum:? Mediastinal contours appear normal.? Heart size is normal.? (units unknown) (unknown) (unknown) (no date) (unknown) (unknown) Medical Decision Making (units unknown) (unknown) (unknown) (no date) (unknown) (unknown) Medical History (units unknown) (unknown) (unknown) (no date) (unknown) (unknown) Medication Instructions Recorded Confirmed (units unknown) (unknown) (unknown) (no date) (unknown) (unknown) Medication Instructions Recorded (units unknown) (unknown) (unknown) (no date) (unknown) (unknown) Migraine headache with aura (units unknown) (unknown) (unknown) (no date) (unknown) (unknown) Mode of arrival: Ambulatory (units unknown) (unknown) (unknown) (no date) (unknown) (unknown) O'Brien # (Auto) (0-900 ) /uL (units unknown) (unknown) (unknown) (no date) (unknown) (unknown) O'Brien # (Auto) 1200 H (0-900) /uL (units unknown) (unknown) (unknown) (no date) (unknown) (unknown) O'Brien % (Auto) (3-14) % (units unknown) (unknown) (unknown) (no date) (unknown) (unknown) O'Brien % (Auto) 9.5 (3-14) % (units unknown) (unknown) (unknown) (no date) (unknown) (unknown) Mother Hypertension (units unknown) (unknown) (unknown) (no date) (unknown) (unknown) Myopia (units unknown) (unknown) (unknown) (no date) (unknown) (unknown) NECK: Supple, full range of motion (units unknown) (unknown) (unknown) (no date) (unknown) (unknown) NEUROLOGICAL: Crania l nerves II through XII grossly intact. Moving all (units unknown) (unknown) (unknown) (no date) (unknown) (unknown) Narrative (units unknown) (unknown) (unknown) (no date) (unknown) (unknown) Neut # (Auto) (2440-6341) /uL (units unknown) (unknown) (unknown) (no date) (unknown) (unknown) Neut # (Auto) 9900 H (5259-1817) /uL (units unknown) (unknown) (unknown) (no date) (unknown) (unknown) Neut % (Auto) (50-75 ) % (units unknown) (unknown) (unknown) (no date) (unknown) (unknown) Neut % (Auto) 79.2 H (50-75) % (units unknown) (unknown) (unknown) (no date) (unknown) (unknown) No Action (units unknown) (unknown) (unknown) (no date) (unknown) (unknown) Ondansetron HCl (Ondansetron 4 Mg Odt) 4 mg SL NOW PRN (units unknown) (unknown) (unknown) (no date) (unknown) (unknown) Ondansetron HCl (Ondansetron 4 Mg/2 Ml Inj) 4 mg IV NOW PRN (units unknown) (unknown) (unknown) (no date) (unknown) (unknown) Ordered: (units unknown) (unknown) (unknown) (no date) (unknown) (unknown) Ordering Provider: Lois Szymanski D.O. (units unknown) (unknown) (unknown) (no date) (unknown) (unknown) Orders (units unknown) (unknown) (unknown) (no date) (unknown) (unknown) Oxygen Delivery Method Room Air 09/10/22 16:07 (units unknown) (unknown) (unknown) (no date) (unknown) (unknown) Oxygen Delivery Method Room Air (units unknown) (unknown) (unknown) (no date) (unknown) (unknown) PRN Reason: Nausea And Vomiting (units unknown) (unknown) (unknown) (no date) (unknown) (unknown) PROCEDURE:? XR CHEST 1V (units unknown) (unknown) (unknown) (no date) (unknown) (unknown) PT (10.1-12.7) SECONDS (units unknown) (unknown) (unknown) (no date) (unknown) (unknown) PT 13.6 H (10.1-12.7 ) SECONDS (units unknown) (unknown) (unknown) (no date) (unknown) (unknown) PTT Partial Thromboplastin Sonny Stat (units unknown) (unknown) (unknown) (no date) (unknown) (unknown) Pancreatitis (units unknown) (unknown) (unknown) (no date) (unknown) (unknown) Patient History (units unknown) (unknown) (unknown) (no date) (unknown) (unknown) Patient: Kaur Horton MR (units unknown) (unknown) (unknown) (no date) (unknown) (unknown) Patient: Kaur Horton (units unknown) (unknown) (unknown) (no date) (unknown) (unknown) Plt Count (150-400) X103/uL (units unknown) (unknown) (unknown) (no date) (unknown) (unknown) Plt Count 312 (150-400) X103/uL (units unknown) (unknown) (unknown) (no date) (unknown) (unknown) Point of Care Testing (units unknown) (unknown) (unknown) (no date) (unknown) (unknown) Point of care testing: (units unknown) (unknown) (unknown) (no date) (unknown) (unknown) Potassium (3.4-5.1) mmol/L (units unknown) (unknown) (unknown) (no date) (unknown) (unknown) Potassium 3.2 L (3.4-5.1) mmol/L (units unknown) (unknown) (unknown) (no date) (unknown) (unknown) Prescriptions: (units unknown) (unknown) (unknown) (no date) (unknown) (unknown) Previous Rx's (units unknown) (unknown) (unknown) (no date) (unknown) (unknown) Prior ECG tracings: available for review (units unknown) (unknown) (unknown) (no date) (unknown) (unknown) Procalcitonin (<0.5) ng/mL (units unknown) (unknown) (unknown) (no date) (unknown) (unknown) Procalcitonin 0.14 (<0.5) ng/mL (units unknown) (unknown) (unknown) (no date) (unknown) (unknown) Procalcitonin Stat (units unknown) (unknown) (unknown) (no date) (unknown) (unknown) Procedure: XR chest 1V (units unknown) (unknown) (unknown) (no date) (unknown) (unknown) Prothrombin Time INR Stat (units unknown) (unknown) (unknown) (no date) (unknown) (unknown) Pulse Oximetry 100 09/10/22 16:07 (units unknown) (unknown) (unknown) (no date) (unknown) (unknown) Pulse Oximetry 100 (units unknown) (unknown) (unknown) (no date) (unknown) (unknown) Pulse Rate 112 H 09/10/22 16:07 (units unknown) (unknown) (unknown) (no date) (unknown) (unknown) Pulse Rate 112 H (units unknown) (unknown) (unknown) (no date) (unknown) (unknown) RBC (4.0-5.2) X106/uL (units unknown) (unknown) (unknown) (no date) (unknown) (unknown) RBC 4.16 (4.0-5.2) X106/uL (units unknown) (unknown) (unknown) (no date) (unknown) (unknown) RDW (11.6-14.8) % (units unknown) (unknown) (unknown) (no date) (unknown) (unknown) RDW 17.1 H (11.6-14.8) % (units unknown) (unknown) (unknown) (no date) (unknown) (unknown) RESPIRATORY: Breath sounds equal bilaterally, no wheezes rales or rhonchi. (units unknown) (unknown) (unknown) (no date) (unknown) (unknown) ROS Unobtainable: Al l systems reviewed + are unremarkable except as noted in HPI (units unknown) (unknown) (unknown) (no date) (unknown) (unknown) RT Consult Eval and Treat NOW (units unknown) (unknown) (unknown) (no date) (unknown) (unknown) Radiologist's Impression: (units unknown) (unknown) (unknown) (no date) (unknown) (unknown) Referrals: (units unknown) (unknown) (unknown) (no date) (unknown) (unknown) Related Data (units unknown) (unknown) (unknown) (no date) (unknown) (unknown) Respiratory Rate 24 09/10/22 16:07 (units unknown) (unknown) (unknown) (no date) (unknown) (unknown) Respiratory Rate 24 (units unknown) (unknown) (unknown) (no date) (unknown) (unknown) Review of Systems (units unknown) (unknown) (unknown) (no date) (unknown) (unknown) Rx Instructions: (units unknown) (unknown) (unknown) (no date) (unknown) (unknown) SKIN: Warm, dry, no petechiae, no rashes or lesions. (units unknown) (unknown) (unknown) (no date) (unknown) (unknown) See Rx Instructions .ROUTE .MEDSUPPLY Qty: 500 1RF (units unknown) (unknown) (unknown) (no date) (unknown) (unknown) She does use THC occasionally. Denies other illicit. Jared Trevino is her (units unknown) (unknown) (unknown) (no date) (unknown) (unknown) Signed By: (units unknown) (unknown) (unknown) (no date) (unknown) (unknown) Signed (units unknown) (unknown) (unknown) (no date) (unknown) (unknown) Sinus rhythm, rate o f 94 PA 144 QRS 80 QTC of 427. No acute changes. (units unknown) (unknown) (unknown) (no date) (unknown) (unknown) Smoking Status: Current every day smoker (units unknown) (unknown) (unknown) (no date) (unknown) (unknown) Social History (units unknown) (unknown) (unknown) (no date) (unknown) (unknown) Sodium (137-145) mmol/L (units unknown) (unknown) (unknown) (no date) (unknown) (unknown) Sodium 133 L (137-145) mmol/L (units unknown) (unknown) (unknown) (no date) (unknown) (unknown) Sodium Chloride (Normal Saline 0.9%) 1,000 mls @ 1,000 mls/hr IV BOLUS ONE (units unknown) (unknown) (unknown) (no date) (unknown) (unknown) Source: patient, RN notes reviewed and old records reviewed (units unknown) (unknown) (unknown) (no date) (unknown) (unknown) Stated complaint: thinks DKA (units unknown) (unknown) (unknown) (no date) (unknown) (unknown) Status post appendectomy (units unknown) (unknown) (unknown) (no date) (unknown) (unknown) Stop: 09/10/22 17:32 (units unknown) (unknown) (unknown) (no date) (unknown) (unknown) Stop: 09/10/22 17:49 (units unknown) (unknown) (unknown) (no date) (unknown) (unknown) Stop: 09/10/22 17:51 (units unknown) (unknown) (unknown) (no date) (unknown) (unknown) Stop: 09/10/22 18:47 (units unknown) (unknown) (unknown) (no date) (unknown) (unknown) Substance Use Type: marijuana (units unknown) (unknown) (unknown) (no date) (unknown) (unknown) Surgical History (units unknown) (unknown) (unknown) (no date) (unknown) (unknown) Surgical changes and devices:? None.? (units unknown) (unknown) (unknown) (no date) (unknown) (unknown) TECHNIQUE:? One view of the chest was acquired.? (units unknown) (unknown) (unknown) (no date) (unknown) (unknown) Temperature 98.1 F 09/10/22 16:07 (units unknown) (unknown) (unknown) (no date) (unknown) (unknown) Temperature 98.1 F (units unknown) (unknown) (unknown) (no date) (unknown) (unknown) This is a 27-year-ol d female type 1 insulin-dependent diabetic history of cyclic (units unknown) (unknown) (unknown) (no date) (unknown) (unknown) Time Seen by Provider: 09/10/22 16:39 (units unknown) (unknown) (unknown) (no date) (unknown) (unknown) Total Bilirubin (0.2-1.3) mg/dL (units unknown) (unknown) (unknown) (no date) (unknown) (unknown) Total Bilirubin 0.6 (0.2-1.3) mg/dL (units unknown) (unknown) (unknown) (no date) (unknown) (unknown) Total Protein (6.3-8.2) g/dL (units unknown) (unknown) (unknown) (no date) (unknown) (unknown) Total Protein 7.4 (6.3-8.2) g/dL (units unknown) (unknown) (unknown) (no date) (unknown) (unknown) Troponin + CK Cardia c Panel Stat (units unknown) (unknown) (unknown) (no date) (unknown) (unknown) U-100 Insulin aspart) (units unknown) (unknown) (unknown) (no date) (unknown) (unknown) Urine Drug Screen, Rapid Stat (units unknown) (unknown) (unknown) (no date) (unknown) (unknown) Vital Signs - 8 hr (units unknown) (unknown) (unknown) (no date) (unknown) (unknown) Vital Signs (units unknown) (unknown) (unknown) (no date) (unknown) (unknown) Vital signs: (units unknown) (unknown) (unknown) (no date) (unknown) (unknown) WBC (4.5-11.0) X103/uL (units unknown) (unknown) (unknown) (no date) (unknown) (unknown) WBC 12.5 H (4.5-11.0 ) X103/uL (units unknown) (unknown) (unknown) (no date) (unknown) (unknown) XR chest 1V Stat (units unknown) (unknown) (unknown) (no date) (unknown) (unknown) XRay Report (units unknown) (unknown) (unknown) (no date) (unknown) (unknown) [Embedded Image Not Available] (units unknown) (unknown) (unknown) (no date) (unknown) (unknown) alcohol intake frequency: holidays/special occasions only (units unknown) (unknown) (unknown) (no date) (unknown) (unknown) alcohol intake: never (units unknown) (unknown) (unknown) (no date) (unknown) (unknown) and below (units unknown) (unknown) (unknown) (no date) (unknown) (unknown) appear (units unknown) (unknown) (unknown) (no date) (unknown) (unknown) back on she is been using insulin sliding scale and states that she is continued (units unknown) (unknown) (unknown) (no date) (unknown) (unknown) complains of some lower back pain. She states she hurts all over. She states (units unknown) (unknown) (unknown) (no date) (unknown) (unknown) complaint of feeling unwell since Friday, patient states she knocked her pump (units unknown) (unknown) (unknown) (no date) (unknown) (unknown) extremities (units unknown) (unknown) (unknown) (no date) (unknown) (unknown) fevers or chills. Sh e does complain of some substernal chest pain, she (units unknown) (unknown) (unknown) (no date) (unknown) (unknown) guarding or rebound, rigidity, no mass (units unknown) (unknown) (unknown) (no date) (unknown) (unknown) household members: spouse (units unknown) (unknown) (unknown) (no date) (unknown) (unknown) insulin aspart U-100 100 unit/mL 56 unit SUBCUT DAILY 08/12/22 08/14/22 (units unknown) (unknown) (unknown) (no date) (unknown) (unknown) insulin aspart U-100 [Novolog U-100 Insulin aspart] 100 unit/mL solution (units unknown) (unknown) (unknown) (no date) (unknown) (unknown) insulin syringes (disposable) 1 mL #500 ea 08/04/20 (units unknown) (unknown) (unknown) (no date) (unknown) (unknown) intact (units unknown) (unknown) (unknown) (no date) (unknown) (unknown) ketorolac [From Toradol] Allergy Verified 08/10/22 14:43 (units unknown) (unknown) (unknown) (no date) (unknown) (unknown) lorazepam 1 mg table t (Ativan) 1 mg PO TID PRN anxiety #4 tabs 08/16/22 (units unknown) (unknown) (unknown) (no date) (unknown) (unknown) lorazepam [Ativan] 1 mg tablet (units unknown) (unknown) (unknown) (no date) (unknown) (unknown) metoclopramide HCl 5 mg/5 mL oral 5 mg PO Q8H PRN Nausea 08/12/22 08/12/22 (units unknown) (unknown) (unknown) (no date) (unknown) (unknown) metoclopramide HCl 5 mg/5 mL solution (units unknown) (unknown) (unknown) (no date) (unknown) (unknown) metoclopramide for gastroparesis. Patient states no new surgeries. She states (units unknown) (unknown) (unknown) (no date) (unknown) (unknown) moist mucous membranes (units unknown) (unknown) (unknown) (no date) (unknown) (unknown) not diaphoretic. There is slightly pale. (units unknown) (unknown) (unknown) (no date) (unknown) (unknown) off several days ago and was feeling unwell enough that she has not placed it (units unknown) (unknown) (unknown) (no date) (unknown) (unknown) or frequency. No new swelling in her extremities. She states she is on (units unknown) (unknown) (unknown) (no date) (unknown) (unknown) per pump (units unknown) (unknown) (unknown) (no date) (unknown) (unknown) primary care. (units unknown) (unknown) (unknown) (no date) (unknown) (unknown) promethazine 12.5 mg tablet 25 mg PO BID PRN nausea and 08/12/22 08/12/22 (units unknown) (unknown) (unknown) (no date) (unknown) (unknown) promethazine 12.5 mg tablet (units unknown) (unknown) (unknown) (no date) (unknown) (unknown) promethazine 25 mg rectal 25 mg PA Q4-6H PRN Nausea And 08/16/22 (units unknown) (unknown) (unknown) (no date) (unknown) (unknown) promethazine [Promethegan] 25 mg suppository (units unknown) (unknown) (unknown) (no date) (unknown) (unknown) sent home with oral medications and then had reoccurrence at home. She denies (units unknown) (unknown) (unknown) (no date) (unknown) (unknown) she is allergic to Toradol. She states she vapes tobacco, she denies alcohol. (units unknown) (unknown) (unknown) (no date) (unknown) (unknown) she is been stooling regularly, no black or bloody stools. No dysuria, urgency (units unknown) (unknown) (unknown) (no date) (unknown) (unknown) solution (units unknown) (unknown) (unknown) (no date) (unknown) (unknown) subcutaneous solutio n (Novolog (units unknown) (unknown) (unknown) (no date) (unknown) (unknown) suppository (Promethegan) Vomiting #12 ea (units unknown) (unknown) (unknown) (no date) (unknown) (unknown) to feel unwell and was having elevated sugars. Patient states she has had (units unknown) (unknown) (unknown) (no date) (unknown) (unknown) tobacco type: vaping (units unknown) (unknown) (unknown) (no date) (unknown) (unknown) unremarkable.? (units unknown) (unknown) (unknown) (no date) (unknown) (unknown) vomiting and cannabi s hyperemesis and gastroparesis. Patient presents with (units unknown) (unknown) (unknown) (no date) (unknown) (unknown) vomiting intermittently since Friday she was in the hospital had improvement was (units unknown) (unknown) (unknown) (no date) (unknown) (unknown) vomiting (units unknown) (unknown) Result panel 1706 (unknown) (no date) (unknown) (unknown) (no value) (units unknown) (unknown) (unknown) (no date) (unknown) (unknown) #: [id number] (units unknown) (unknown) (unknown) (no date) (unknown) (unknown) (DME) insulin syringes (disposable) 1 mL syringe (units unknown) (unknown) (unknown) (no date) (unknown) (unknown) 09/10/22 09/10/22 09/10/22 Range/Units (units unknown) (unknown) (unknown) (no date) (unknown) (unknown) 09/10/22 16:25 (units unknown) (unknown) (unknown) (no date) (unknown) (unknown) 09/10/22 16:33 (units unknown) (unknown) (unknown) (no date) (unknown) (unknown) 09/10/22 16:56 (units unknown) (unknown) (unknown) (no date) (unknown) (unknown) 09/10/22 17:38 (units unknown) (unknown) (unknown) (no date) (unknown) (unknown) 09/10/22 17:50 (units unknown) (unknown) (unknown) (no date) (unknown) (unknown) 09/10/22 Range/Units (units unknown) (unknown) (unknown) (no date) (unknown) (unknown) 09/10/22 (units unknown) (unknown) (unknown) (no date) (unknown) (unknown) 1 mg PO TID PRN (Reason: anxiety) Qty: 4 0RF (units unknown) (unknown) (unknown) (no date) (unknown) (unknown) [address] (units unknown) (unknown) (unknown) (no date) (unknown) (unknown) 16:07 (units unknown) (unknown) (unknown) (no date) (unknown) (unknown) 16:25 16:25 16:25 (units unknown) (unknown) (unknown) (no date) (unknown) (unknown) 16:25 (units unknown) (unknown) (unknown) (no date) (unknown) (unknown) 210, bicarb is 23, she does have an anion gap of 15. Patient's hemoglobin is 10 (units unknown) (unknown) (unknown) (no date) (unknown) (unknown) 25 mg PO BID PRN (Reason: nausea and vomiting) (units unknown) (unknown) (unknown) (no date) (unknown) (unknown) 25 mg PA Q4-6H PRN (Reason: Nausea And Vomiting) Qty: 12 0RF (units unknown) (unknown) (unknown) (no date) (unknown) (unknown) 5 mg PO Q8H PRN (Reason: Nausea) (units unknown) (unknown) (unknown) (no date) (unknown) (unknown) 56 unit SUBCUT DAILY (units unknown) (unknown) (unknown) (no date) (unknown) (unknown) ? (units unknown) (unknown) (unknown) (no date) (unknown) (unknown) ABDOMEN: Soft, nontender. Nondistended. Normoactive bowel sounds all 4 (units unknown) (unknown) (unknown) (no date) (unknown) (unknown) ALT (<35) IU/L (units unknown) (unknown) (unknown) (no date) (unknown) (unknown) ALT 33 (<35) IU/L (units unknown) (unknown) (unknown) (no date) (unknown) (unknown) APTT (26-36) SECONDS (units unknown) (unknown) (unknown) (no date) (unknown) (unknown) APTT 19 L (26-36) SECONDS (units unknown) (unknown) (unknown) (no date) (unknown) (unknown) AST (14-36) IU/L (units unknown) (unknown) (unknown) (no date) (unknown) (unknown) AST 23 (14-36) IU/L (units unknown) (unknown) (unknown) (no date) (unknown) (unknown) Accession Number: [id number] ?? (units unknown) (unknown) (unknown) (no date) (unknown) (unknown) Acct:[id number] (units unknown) (unknown) (unknown) (no date) (unknown) (unknown) Age/Sex: 27 / F (units unknown) (unknown) (unknown) (no date) (unknown) (unknown) Albumin (3.5-5.0) g/dL (units unknown) (unknown) (unknown) (no date) (unknown) (unknown) Albumin 4.5 (3.5-5.0 ) g/dL (units unknown) (unknown) (unknown) (no date) (unknown) (unknown) Albumin/Globulin Ratio (1.0-2.8) (units unknown) (unknown) (unknown) (no date) (unknown) (unknown) Albumin/Globulin Ratio 1.6 (1.0-2.8) (units unknown) (unknown) (unknown) (no date) (unknown) (unknown) Alkaline Phosphatase (38-126) U/L (units unknown) (unknown) (unknown) (no date) (unknown) (unknown) Alkaline Phosphatase 97 (38-126) U/L (units unknown) (unknown) (unknown) (no date) (unknown) (unknown) Allergies (units unknown) (unknown) (unknown) (no date) (unknown) (unknown) Allergy/AdvReac Type Severity Reaction Status Date / Time (units unknown) (unknown) (unknown) (no date) (unknown) (unknown) [place] [address] (units unknown) (unknown) (unknown) (no date) (unknown) (unknown) Anemia (units unknown) (unknown) (unknown) (no date) (unknown) (unknown) Approved by: Martha Mosley M.D. on 09/10/2022 at 17:11?? (units unknown) (unknown) (unknown) (no date) (unknown) (unknown) As directed for use with insulin injections (units unknown) (unknown) (unknown) (no date) (unknown) (unknown) Attestation: I personally reviewed and interpreted this ECG as follows: (units unknown) (unknown) (unknown) (no date) (unknown) (unknown) BUN (7-17) mg/dL (units unknown) (unknown) (unknown) (no date) (unknown) (unknown) BUN 11 (7-17) mg/dL (units unknown) (unknown) (unknown) (no date) (unknown) (unknown) BUN/Creatinine Ratio (6-22) (units unknown) (unknown) (unknown) (no date) (unknown) (unknown) BUN/Creatinine Ratio 10.9 (6-22) (units unknown) (unknown) (unknown) (no date) (unknown) (unknown) Baso # (Auto) (0-100 ) /uL (units unknown) (unknown) (unknown) (no date) (unknown) (unknown) Baso # (Auto) 0 (0-100) /uL (units unknown) (unknown) (unknown) (no date) (unknown) (unknown) Baso % (Auto) (0-2) % (units unknown) (unknown) (unknown) (no date) (unknown) (unknown) Baso % (Auto) 0.2 (0-2) % (units unknown) (unknown) (unknown) (no date) (unknown) (unknown) Blood Culture Stat (units unknown) (unknown) (unknown) (no date) (unknown) (unknown) Blood Pressure 131/8 2 09/10/22 16:07 (units unknown) (unknown) (unknown) (no date) (unknown) (unknown) Blood Pressure 131/82 (units unknown) (unknown) (unknown) (no date) (unknown) (unknown) Bones and chest wall:? No suspicious bony lesions.? Overlying soft tissues (units unknown) (unknown) (unknown) (no date) (unknown) (unknown) CARDIOVASCULAR: Regular rate and rhythm without murmurs, rubs or gallops. No (units unknown) (unknown) (unknown) (no date) (unknown) (unknown) COMPARISON:? [facility], CR, XR CHEST 1 VIEW, 09/08/2022, 9:29.? (units unknown) (unknown) (unknown) (no date) (unknown) (unknown) COVID19 -Nasal RAPID Stat (units unknown) (unknown) (unknown) (no date) (unknown) (unknown) Calcium (8.4-10.2) mg/dL (units unknown) (unknown) (unknown) (no date) (unknown) (unknown) Calcium 8.7 (8.4-10.2) mg/dL (units unknown) (unknown) (unknown) (no date) (unknown) (unknown) Cannabis hyperemesis syndrome concurrent with and due to cannabis dependence (units unknown) (unknown) (unknown) (no date) (unknown) (unknown) Carbon Dioxide (22-32) mmol/L (units unknown) (unknown) (unknown) (no date) (unknown) (unknown) Carbon Dioxide 23 (22-32) mmol/L (units unknown) (unknown) (unknown) (no date) (unknown) (unknown) Chest x-ray: (units unknown) (unknown) (unknown) (no date) (unknown) (unknown) Chief complaint: Diabetic Problem (units unknown) (unknown) (unknown) (no date) (unknown) (unknown) Chloride (98-107) mmol/L (units unknown) (unknown) (unknown) (no date) (unknown) (unknown) Chloride 93 L (98-107) mmol/L (units unknown) (unknown) (unknown) (no date) (unknown) (unknown) Clinical Impression: (units unknown) (unknown) (unknown) (no date) (unknown) (unknown) Complete Blood Count AUTO DIFF Stat (units unknown) (unknown) (unknown) (no date) (unknown) (unknown) Comprehensive Metabolic Panel Stat (units unknown) (unknown) (unknown) (no date) (unknown) (unknown) Course (units unknown) (unknown) (unknown) (no date) (unknown) (unknown) Creatinine (0.52-1.04) mg/dL (units unknown) (unknown) (unknown) (no date) (unknown) (unknown) Creatinine 1.01 (0.52-1.04) mg/dL (units unknown) (unknown) (unknown) (no date) (unknown) (unknown) Cyclic vomiting syndrome (units unknown) (unknown) (unknown) (no date) (unknown) (unknown) DKA (diabetic ketoacidoses) (units unknown) (unknown) (unknown) (no date) (unknown) (unknown) : 1995 Acct:[id number] (units unknown) (unknown) (unknown) (no date) (unknown) (unknown) : 1995 (units unknown) (unknown) (unknown) (no date) (unknown) (unknown) Date of Service: 09/10/22 (units unknown) (unknown) (unknown) (no date) (unknown) (unknown) Departure (units unknown) (unknown) (unknown) (no date) (unknown) (unknown) Diabetes mellitus, type I (units unknown) (unknown) (unknown) (no date) (unknown) (unknown) Dictated by: Martha Mosley M.D. on 09/10/2022 at 17:08 ? ? (units unknown) (unknown) (unknown) (no date) (unknown) (unknown) Diphenhydramine HCl (Diphenhydramine 50 Mg/Ml Vial) 50 mg IV NOW ONE (units unknown) (unknown) (unknown) (no date) (unknown) (unknown) Discharge Plan (units unknown) (unknown) (unknown) (no date) (unknown) (unknown) Discontinued Medications (units unknown) (unknown) (unknown) (no date) (unknown) (unknown) Documented By: AT (units unknown) (unknown) (unknown) (no date) (unknown) (unknown) ECG Data (units unknown) (unknown) (unknown) (no date) (unknown) (unknown) ED Orders (units unknown) (unknown) (unknown) (no date) (unknown) (unknown) EKG-12 Lead Stat (units unknown) (unknown) (unknown) (no date) (unknown) (unknown) ER Physician: Lois Szymanski D.O. (units unknown) (unknown) (unknown) (no date) (unknown) (unknown) EXTREMITIES: Normal range of motion, no clubbing or edema. Neurovascularly (units unknown) (unknown) (unknown) (no date) (unknown) (unknown) Emergency Report (units unknown) (unknown) (unknown) (no date) (unknown) (unknown) Eos # (Auto) (0-450) /uL (units unknown) (unknown) (unknown) (no date) (unknown) (unknown) Eos # (Auto) 0 (0-450) /uL (units unknown) (unknown) (unknown) (no date) (unknown) (unknown) Eos % (Auto) (2-4) % (units unknown) (unknown) (unknown) (no date) (unknown) (unknown) Eos % (Auto) 0.1 L (2-4) % (units unknown) (unknown) (unknown) (no date) (unknown) (unknown) Estimated GFR > 60 (>60) mL/min (units unknown) (unknown) (unknown) (no date) (unknown) (unknown) Estimated GFR (>60) mL/min (units unknown) (unknown) (unknown) (no date) (unknown) (unknown) Exam Narrative: (units unknown) (unknown) (unknown) (no date) (unknown) (unknown) Exam (units unknown) (unknown) (unknown) (no date) (unknown) (unknown) FINDINGS:? (units unknown) (unknown) (unknown) (no date) (unknown) (unknown) Family History (units unknown) (unknown) (unknown) (no date) (unknown) (unknown) Father Healthy adult (units unknown) (unknown) (unknown) (no date) (unknown) (unknown) GENERAL: Alert and oriented x three, female in moderate distress. Patient is (units unknown) (unknown) (unknown) (no date) (unknown) (unknown) : No CVA tenderness (units unknown) (unknown) (unknown) (no date) (unknown) (unknown) Gastroparesis (units unknown) (unknown) (unknown) (no date) (unknown) (unknown) General (units unknown) (unknown) (unknown) (no date) (unknown) (unknown) Globulin (1.7-4.1) g/dL (units unknown) (unknown) (unknown) (no date) (unknown) (unknown) Globulin 2.9 (1.7-4.1) g/dL (units unknown) (unknown) (unknown) (no date) (unknown) (unknown) Glucose (70-100) mg/dL (units unknown) (unknown) (unknown) (no date) (unknown) (unknown) Glucose 210 H (70-100) mg/dL (units unknown) (unknown) (unknown) (no date) (unknown) (unknown) Glucose POC 214 (units unknown) (unknown) (unknown) (no date) (unknown) (unknown) HEENT: Head normocephalic, atraumatic, EOMI, pupils reactive, face symmetric, (units unknown) (unknown) (unknown) (no date) (unknown) (unknown) HPI - General Adult (units unknown) (unknown) (unknown) (no date) (unknown) (unknown) HPI narrative: (units unknown) (unknown) (unknown) (no date) (unknown) (unknown) Haloperidol (Haloperidol 5 Mg/Ml Vial) 5 mg IV NOW ONE (units unknown) (unknown) (unknown) (no date) (unknown) (unknown) Hct (36-46) % (units unknown) (unknown) (unknown) (no date) (unknown) (unknown) Hct 33.1 L (36-46) % (units unknown) (unknown) (unknown) (no date) (unknown) (unknown) Hgb (12.0-16.0) g/dL (units unknown) (unknown) (unknown) (no date) (unknown) (unknown) Hgb 10.9 L (12.0-16.0) g/dL (units unknown) (unknown) (unknown) (no date) (unknown) (unknown) History of Present Illness (units unknown) (unknown) (unknown) (no date) (unknown) (unknown) Home Medications (units unknown) (unknown) (unknown) (no date) (unknown) (unknown) Delonte Trevino MD [Primary Care Provider] (units unknown) (unknown) (unknown) (no date) (unknown) (unknown) Hospital, CR, XR CHEST 1V, 06/27/2021, 3:44. (units unknown) (unknown) (unknown) (no date) (unknown) (unknown) IMPRESSION:? No acut e cardiopulmonary disease. (units unknown) (unknown) (unknown) (no date) (unknown) (unknown) INDICATIONS:? suspected sepsis (units unknown) (unknown) (unknown) (no date) (unknown) (unknown) INR (0.9-1.3) (units unknown) (unknown) (unknown) (no date) (unknown) (unknown) INR 1.2 (0.9-1.3) (units unknown) (unknown) (unknown) (no date) (unknown) (unknown) Imaging Data (units unknown) (unknown) (unknown) (no date) (unknown) (unknown) Initial Vital Signs (units unknown) (unknown) (unknown) (no date) (unknown) (unknown) Initial Vital Signs: (units unknown) (unknown) (unknown) (no date) (unknown) (unknown) Insulin dependent diabetes mellitus (units unknown) (unknown) (unknown) (no date) (unknown) (unknown) Interpretation: (units unknown) (unknown) (unknown) (no date) (unknown) (unknown) [address] [address] (units unknown) (unknown) (unknown) (no date) (unknown) (unknown) [facility] (units unknown) (unknown) (unknown) (no date) (unknown) (unknown) [place] (units unknown) (unknown) (unknown) (no date) (unknown) (unknown) JVD. No swelling bilateral lower extremities. (units unknown) (unknown) (unknown) (no date) (unknown) (unknown) Lab Data (units unknown) (unknown) (unknown) (no date) (unknown) (unknown) Lab Results (units unknown) (unknown) (unknown) (no date) (unknown) (unknown) Labs: (units unknown) (unknown) (unknown) (no date) (unknown) (unknown) Lactate (0.7-2.1) mmol/L (units unknown) (unknown) (unknown) (no date) (unknown) (unknown) Lactate (Lactic Acid ) Stat (units unknown) (unknown) (unknown) (no date) (unknown) (unknown) Lactate 1.1 (0.7-2.1 ) mmol/L (units unknown) (unknown) (unknown) (no date) (unknown) (unknown) Last Admin: 09/10/22 16:41 Dose: 1,000 mls/hr (units unknown) (unknown) (unknown) (no date) (unknown) (unknown) Last Admin: 09/10/22 16:41 Dose: 4 mg (units unknown) (unknown) (unknown) (no date) (unknown) (unknown) Limitations: no limitations (units unknown) (unknown) (unknown) (no date) (unknown) (unknown) Lipase (23-300) U/L (units unknown) (unknown) (unknown) (no date) (unknown) (unknown) Lipase 16 L (23-300) U/L (units unknown) (unknown) (unknown) (no date) (unknown) (unknown) Lipase Stat (units unknown) (unknown) (unknown) (no date) (unknown) (unknown) Loc: ED (units unknown) (unknown) (unknown) (no date) (unknown) (unknown) Lungs and pleura:? Lungs are clear.? No pleural effusions or pneumothorax.? (units unknown) (unknown) (unknown) (no date) (unknown) (unknown) Lymph # (Auto) (5208-9516) /uL (units unknown) (unknown) (unknown) (no date) (unknown) (unknown) Lymph # (Auto) 1400 (3764-3385) /uL (units unknown) (unknown) (unknown) (no date) (unknown) (unknown) Lymph % (Auto) (25-40) % (units unknown) (unknown) (unknown) (no date) (unknown) (unknown) Lymph % (Auto) 11.0 L (25-40) % (units unknown) (unknown) (unknown) (no date) (unknown) (unknown) MCH (26-34) PG (units unknown) (unknown) (unknown) (no date) (unknown) (unknown) MCH 26.2 (26-34) PG (units unknown) (unknown) (unknown) (no date) (unknown) (unknown) MCHC (30-36) % (units unknown) (unknown) (unknown) (no date) (unknown) (unknown) MCHC 32.9 (30-36) % (units unknown) (unknown) (unknown) (no date) (unknown) (unknown) MCV (80-100) fL (units unknown) (unknown) (unknown) (no date) (unknown) (unknown) MCV 79.7 L (80-100) fL (units unknown) (unknown) (unknown) (no date) (unknown) (unknown) MDM Narrative (units unknown) (unknown) (unknown) (no date) (unknown) (unknown) MR#: [id number] (units unknown) (unknown) (unknown) (no date) (unknown) (unknown) Mediastinum:? Mediastinal contours appear normal.? Heart size is normal.? (units unknown) (unknown) (unknown) (no date) (unknown) (unknown) Medical Decision Making (units unknown) (unknown) (unknown) (no date) (unknown) (unknown) Medical History (units unknown) (unknown) (unknown) (no date) (unknown) (unknown) Medical decision making narrative: (units unknown) (unknown) (unknown) (no date) (unknown) (unknown) Medication Instructions Recorded Confirmed (units unknown) (unknown) (unknown) (no date) (unknown) (unknown) Medication Instructions Recorded (units unknown) (unknown) (unknown) (no date) (unknown) (unknown) Migraine headache with aura (units unknown) (unknown) (unknown) (no date) (unknown) (unknown) Mode of arrival: Ambulatory (units unknown) (unknown) (unknown) (no date) (unknown) (unknown) O'Brien # (Auto) (0-900 ) /uL (units unknown) (unknown) (unknown) (no date) (unknown) (unknown) O'Brien # (Auto) 1200 H (0-900) /uL (units unknown) (unknown) (unknown) (no date) (unknown) (unknown) O'Brien % (Auto) (3-14) % (units unknown) (unknown) (unknown) (no date) (unknown) (unknown) O'Brien % (Auto) 9.5 (3-14) % (units unknown) (unknown) (unknown) (no date) (unknown) (unknown) Mother Hypertension (units unknown) (unknown) (unknown) (no date) (unknown) (unknown) Myopia (units unknown) (unknown) (unknown) (no date) (unknown) (unknown) NECK: Supple, full range of motion (units unknown) (unknown) (unknown) (no date) (unknown) (unknown) NEUROLOGICAL: Crania l nerves II through XII grossly intact. Moving all (units unknown) (unknown) (unknown) (no date) (unknown) (unknown) Narrative (units unknown) (unknown) (unknown) (no date) (unknown) (unknown) Neut # (Auto) (0107-7550) /uL (units unknown) (unknown) (unknown) (no date) (unknown) (unknown) Neut # (Auto) 9900 H (4958-0212) /uL (units unknown) (unknown) (unknown) (no date) (unknown) (unknown) Neut % (Auto) (50-75 ) % (units unknown) (unknown) (unknown) (no date) (unknown) (unknown) Neut % (Auto) 79.2 H (50-75) % (units unknown) (unknown) (unknown) (no date) (unknown) (unknown) No Action (units unknown) (unknown) (unknown) (no date) (unknown) (unknown) Ondansetron HCl (Ondansetron 4 Mg Odt) 4 mg SL NOW PRN (units unknown) (unknown) (unknown) (no date) (unknown) (unknown) Ondansetron HCl (Ondansetron 4 Mg/2 Ml Inj) 4 mg IV NOW PRN (units unknown) (unknown) (unknown) (no date) (unknown) (unknown) Ordered: (units unknown) (unknown) (unknown) (no date) (unknown) (unknown) Ordering Provider: Lois Szymanski D.O. (units unknown) (unknown) (unknown) (no date) (unknown) (unknown) Orders (units unknown) (unknown) (unknown) (no date) (unknown) (unknown) Oxygen Delivery Method Room Air 09/10/22 16:07 (units unknown) (unknown) (unknown) (no date) (unknown) (unknown) Oxygen Delivery Method Room Air (units unknown) (unknown) (unknown) (no date) (unknown) (unknown) PRN Reason: Nausea And Vomiting (units unknown) (unknown) (unknown) (no date) (unknown) (unknown) PROCEDURE:? XR CHEST 1V (units unknown) (unknown) (unknown) (no date) (unknown) (unknown) PT (10.1-12.7) SECONDS (units unknown) (unknown) (unknown) (no date) (unknown) (unknown) PT 13.6 H (10.1-12.7 ) SECONDS (units unknown) (unknown) (unknown) (no date) (unknown) (unknown) PTT Partial Thromboplastin Sonny Stat (units unknown) (unknown) (unknown) (no date) (unknown) (unknown) Pancreatitis (units unknown) (unknown) (unknown) (no date) (unknown) (unknown) Patient History (units unknown) (unknown) (unknown) (no date) (unknown) (unknown) Patient received a L fluids and Zofran here in the department still feeling (units unknown) (unknown) (unknown) (no date) (unknown) (unknown) Patient signed out t o Dr. Krause while awaiting rest of workup for final (units unknown) (unknown) (unknown) (no date) (unknown) (unknown) Patient: Kaur Horton MR (units unknown) (unknown) (unknown) (no date) (unknown) (unknown) Patient: Kaur oHrton (units unknown) (unknown) (unknown) (no date) (unknown) (unknown) Pending urine for , UDS and evaluation for infection. (units unknown) (unknown) (unknown) (no date) (unknown) (unknown) Plt Count (150-400) X103/uL (units unknown) (unknown) (unknown) (no date) (unknown) (unknown) Plt Count 312 (150-400) X103/uL (units unknown) (unknown) (unknown) (no date) (unknown) (unknown) Point of Care Testing (units unknown) (unknown) (unknown) (no date) (unknown) (unknown) Point of care testing: (units unknown) (unknown) (unknown) (no date) (unknown) (unknown) Potassium (3.4-5.1) mmol/L (units unknown) (unknown) (unknown) (no date) (unknown) (unknown) Potassium 3.2 L (3.4-5.1) mmol/L (units unknown) (unknown) (unknown) (no date) (unknown) (unknown) Prescriptions: (units unknown) (unknown) (unknown) (no date) (unknown) (unknown) Previous Rx's (units unknown) (unknown) (unknown) (no date) (unknown) (unknown) Prior ECG tracings: available for review (units unknown) (unknown) (unknown) (no date) (unknown) (unknown) Procalcitonin (<0.5) ng/mL (units unknown) (unknown) (unknown) (no date) (unknown) (unknown) Procalcitonin 0.14 (<0.5) ng/mL (units unknown) (unknown) (unknown) (no date) (unknown) (unknown) Procalcitonin Stat (units unknown) (unknown) (unknown) (no date) (unknown) (unknown) Procedure: XR chest 1V (units unknown) (unknown) (unknown) (no date) (unknown) (unknown) Prothrombin Time INR Stat (units unknown) (unknown) (unknown) (no date) (unknown) (unknown) Pulse Oximetry 100 09/10/22 16:07 (units unknown) (unknown) (unknown) (no date) (unknown) (unknown) Pulse Oximetry 100 (units unknown) (unknown) (unknown) (no date) (unknown) (unknown) Pulse Rate 112 H 09/10/22 16:07 (units unknown) (unknown) (unknown) (no date) (unknown) (unknown) Pulse Rate 112 H (units unknown) (unknown) (unknown) (no date) (unknown) (unknown) RBC (4.0-5.2) X106/uL (units unknown) (unknown) (unknown) (no date) (unknown) (unknown) RBC 4.16 (4.0-5.2) X106/uL (units unknown) (unknown) (unknown) (no date) (unknown) (unknown) RDW (11.6-14.8) % (units unknown) (unknown) (unknown) (no date) (unknown) (unknown) RDW 17.1 H (11.6-14.8) % (units unknown) (unknown) (unknown) (no date) (unknown) (unknown) RESPIRATORY: Breath sounds equal bilaterally, no wheezes rales or rhonchi. No (units unknown) (unknown) (unknown) (no date) (unknown) (unknown) ROS Unobtainable: Al l systems reviewed + are unremarkable except as noted in HPI (units unknown) (unknown) (unknown) (no date) (unknown) (unknown) RT Consult Eval and Treat NOW (units unknown) (unknown) (unknown) (no date) (unknown) (unknown) Radiologist's Impression: (units unknown) (unknown) (unknown) (no date) (unknown) (unknown) Referrals: (units unknown) (unknown) (unknown) (no date) (unknown) (unknown) Related Data (units unknown) (unknown) (unknown) (no date) (unknown) (unknown) Respiratory Rate 24 09/10/22 16:07 (units unknown) (unknown) (unknown) (no date) (unknown) (unknown) Respiratory Rate 24 (units unknown) (unknown) (unknown) (no date) (unknown) (unknown) Review of Systems (units unknown) (unknown) (unknown) (no date) (unknown) (unknown) Rx Instructions: (units unknown) (unknown) (unknown) (no date) (unknown) (unknown) SKIN: Warm, dry, no petechiae, no rashes or lesions. (units unknown) (unknown) (unknown) (no date) (unknown) (unknown) See Rx Instructions .ROUTE .MEDSUPPLY Qty: 500 1RF (units unknown) (unknown) (unknown) (no date) (unknown) (unknown) She does use THC occasionally. Denies other illicit. Jared Trevino is her (units unknown) (unknown) (unknown) (no date) (unknown) (unknown) She is been complaining of chest pain, no dynamic changes on EKG but troponin (units unknown) (unknown) (unknown) (no date) (unknown) (unknown) Signed By: (units unknown) (unknown) (unknown) (no date) (unknown) (unknown) Signed (units unknown) (unknown) (unknown) (no date) (unknown) (unknown) Sinus rhythm, rate o f 94 PA 144 QRS 80 QTC of 427. No new ST elevation (units unknown) (unknown) (unknown) (no date) (unknown) (unknown) Smoking Status: Current every day smoker (units unknown) (unknown) (unknown) (no date) (unknown) (unknown) Social History (units unknown) (unknown) (unknown) (no date) (unknown) (unknown) Sodium (137-145) mmol/L (units unknown) (unknown) (unknown) (no date) (unknown) (unknown) Sodium 133 L (137-145) mmol/L (units unknown) (unknown) (unknown) (no date) (unknown) (unknown) Sodium Chloride (Normal Saline 0.9%) 1,000 mls @ 1,000 mls/hr IV BOLUS ONE (units unknown) (unknown) (unknown) (no date) (unknown) (unknown) Source: patient, RN notes reviewed and old records reviewed (units unknown) (unknown) (unknown) (no date) (unknown) (unknown) Stated complaint: thinks DKA (units unknown) (unknown) (unknown) (no date) (unknown) (unknown) Status post appendectomy (units unknown) (unknown) (unknown) (no date) (unknown) (unknown) Stop: 09/10/22 17:32 (units unknown) (unknown) (unknown) (no date) (unknown) (unknown) Stop: 09/10/22 17:49 (units unknown) (unknown) (unknown) (no date) (unknown) (unknown) Stop: 09/10/22 17:51 (units unknown) (unknown) (unknown) (no date) (unknown) (unknown) Stop: 09/10/22 18:47 (units unknown) (unknown) (unknown) (no date) (unknown) (unknown) Substance Use Type: marijuana (units unknown) (unknown) (unknown) (no date) (unknown) (unknown) Surgical History (units unknown) (unknown) (unknown) (no date) (unknown) (unknown) Surgical changes and devices:? None.? (units unknown) (unknown) (unknown) (no date) (unknown) (unknown) TECHNIQUE:? One view of the chest was acquired.? (units unknown) (unknown) (unknown) (no date) (unknown) (unknown) Temperature 98.1 F 09/10/22 16:07 (units unknown) (unknown) (unknown) (no date) (unknown) (unknown) Temperature 98.1 F (units unknown) (unknown) (unknown) (no date) (unknown) (unknown) This is a 27-year-ol d female type 1 insulin-dependent diabetic history of cyclic (units unknown) (unknown) (unknown) (no date) (unknown) (unknown) This is a 27-year-ol d female with known insulin-dependent diabetes who is pumped (units unknown) (unknown) (unknown) (no date) (unknown) (unknown) Time Seen by Provider: 09/10/22 16:39 (units unknown) (unknown) (unknown) (no date) (unknown) (unknown) Total Bilirubin (0.2-1.3) mg/dL (units unknown) (unknown) (unknown) (no date) (unknown) (unknown) Total Bilirubin 0.6 (0.2-1.3) mg/dL (units unknown) (unknown) (unknown) (no date) (unknown) (unknown) Total Protein (6.3-8.2) g/dL (units unknown) (unknown) (unknown) (no date) (unknown) (unknown) Total Protein 7.4 (6.3-8.2) g/dL (units unknown) (unknown) (unknown) (no date) (unknown) (unknown) Troponin + CK Cardia c Panel Stat (units unknown) (unknown) (unknown) (no date) (unknown) (unknown) U-100 Insulin aspart) (units unknown) (unknown) (unknown) (no date) (unknown) (unknown) Urine Drug Screen, Rapid Stat (units unknown) (unknown) (unknown) (no date) (unknown) (unknown) Vital Signs - 8 hr (units unknown) (unknown) (unknown) (no date) (unknown) (unknown) Vital Signs (units unknown) (unknown) (unknown) (no date) (unknown) (unknown) Vital signs: (units unknown) (unknown) (unknown) (no date) (unknown) (unknown) Vomiting (units unknown) (unknown) (unknown) (no date) (unknown) (unknown) WBC (4.5-11.0) X103/uL (units unknown) (unknown) (unknown) (no date) (unknown) (unknown) WBC 12.5 H (4.5-11.0 ) X103/uL (units unknown) (unknown) (unknown) (no date) (unknown) (unknown) XR chest 1V Stat (units unknown) (unknown) (unknown) (no date) (unknown) (unknown) XRay Report (units unknown) (unknown) (unknown) (no date) (unknown) (unknown) [Embedded Image Not Available] (units unknown) (unknown) (unknown) (no date) (unknown) (unknown) alcohol intake frequency: holidays/special occasions only (units unknown) (unknown) (unknown) (no date) (unknown) (unknown) alcohol intake: never (units unknown) (unknown) (unknown) (no date) (unknown) (unknown) and D-dimer were included as she is had recent hospitalizations. (units unknown) (unknown) (unknown) (no date) (unknown) (unknown) and below (units unknown) (unknown) (unknown) (no date) (unknown) (unknown) appear (units unknown) (unknown) (unknown) (no date) (unknown) (unknown) appreciated. Patient has prior from 08/15/2022 and multiples prior to this. (units unknown) (unknown) (unknown) (no date) (unknown) (unknown) back on she is been using insulin sliding scale and states that she is continued (units unknown) (unknown) (unknown) (no date) (unknown) (unknown) complains of some lower back pain. She states she hurts all over. She states (units unknown) (unknown) (unknown) (no date) (unknown) (unknown) complaint of feeling unwell since Friday, patient states she knocked her pump (units unknown) (unknown) (unknown) (no date) (unknown) (unknown) disposition. (units unknown) (unknown) (unknown) (no date) (unknown) (unknown) extremities (units unknown) (unknown) (unknown) (no date) (unknown) (unknown) fevers or chills. Sh e does complain of some substernal chest pain, she (units unknown) (unknown) (unknown) (no date) (unknown) (unknown) gastroparesis and DKA. She does not appear to be in DKA today. Does not appear (units unknown) (unknown) (unknown) (no date) (unknown) (unknown) had admissions for UTIs with intractable emesis in combination with (units unknown) (unknown) (unknown) (no date) (unknown) (unknown) household members: spouse (units unknown) (unknown) (unknown) (no date) (unknown) (unknown) insulin aspart U-100 100 unit/mL 56 unit SUBCUT DAILY 08/12/22 08/14/22 (units unknown) (unknown) (unknown) (no date) (unknown) (unknown) insulin aspart U-100 [Novolog U-100 Insulin aspart] 100 unit/mL solution (units unknown) (unknown) (unknown) (no date) (unknown) (unknown) insulin syringes (disposable) 1 mL #500 ea 08/04/20 (units unknown) (unknown) (unknown) (no date) (unknown) (unknown) intact (units unknown) (unknown) (unknown) (no date) (unknown) (unknown) ketorolac [From Toradol] Allergy Verified 08/10/22 14:43 (units unknown) (unknown) (unknown) (no date) (unknown) (unknown) lorazepam 1 mg table t (Ativan) 1 mg PO TID PRN anxiety #4 tabs 08/16/22 (units unknown) (unknown) (unknown) (no date) (unknown) (unknown) lorazepam [Ativan] 1 mg tablet (units unknown) (unknown) (unknown) (no date) (unknown) (unknown) metoclopramide HCl 5 mg/5 mL oral 5 mg PO Q8H PRN Nausea 08/12/22 08/12/22 (units unknown) (unknown) (unknown) (no date) (unknown) (unknown) metoclopramide HCl 5 mg/5 mL solution (units unknown) (unknown) (unknown) (no date) (unknown) (unknown) metoclopramide for gastroparesis. Patient states no new surgeries. She states (units unknown) (unknown) (unknown) (no date) (unknown) (unknown) moist mucous membranes (units unknown) (unknown) (unknown) (no date) (unknown) (unknown) not diaphoretic. There is slightly pale. (units unknown) (unknown) (unknown) (no date) (unknown) (unknown) off several days ago and was feeling unwell enough that she has not placed it (units unknown) (unknown) (unknown) (no date) (unknown) (unknown) or frequency. No new swelling in her extremities. She states she is on (units unknown) (unknown) (unknown) (no date) (unknown) (unknown) per pump (units unknown) (unknown) (unknown) (no date) (unknown) (unknown) primary care. (units unknown) (unknown) (unknown) (no date) (unknown) (unknown) promethazine 12.5 mg tablet 25 mg PO BID PRN nausea and 08/12/22 08/12/22 (units unknown) (unknown) (unknown) (no date) (unknown) (unknown) promethazine 12.5 mg tablet (units unknown) (unknown) (unknown) (no date) (unknown) (unknown) promethazine 25 mg rectal 25 mg PA Q4-6H PRN Nausea And 08/16/22 (units unknown) (unknown) (unknown) (no date) (unknown) (unknown) promethazine [Promethegan] 25 mg suppository (units unknown) (unknown) (unknown) (no date) (unknown) (unknown) quadrants. No guarding or rebound, rigidity, no mass (units unknown) (unknown) (unknown) (no date) (unknown) (unknown) quite nauseated but not active vomiting, patient does not have prolonged QT come (units unknown) (unknown) (unknown) (no date) (unknown) (unknown) sent home with oral medications and then had reoccurrence at home. She denies (units unknown) (unknown) (unknown) (no date) (unknown) (unknown) she is allergic to Toradol. She states she vapes tobacco, she denies alcohol. (units unknown) (unknown) (unknown) (no date) (unknown) (unknown) she is been stooling regularly, no black or bloody stools. No dysuria, urgency (units unknown) (unknown) (unknown) (no date) (unknown) (unknown) solution (units unknown) (unknown) (unknown) (no date) (unknown) (unknown) some hemoconcentration. LFTs are negative, pro callus negative. Patient has (units unknown) (unknown) (unknown) (no date) (unknown) (unknown) subcutaneous solutio n (Novolog (units unknown) (unknown) (unknown) (no date) (unknown) (unknown) suppository (Promethegan) Vomiting #12 ea (units unknown) (unknown) (unknown) (no date) (unknown) (unknown) tachypnea. No accessory muscle use. (units unknown) (unknown) (unknown) (no date) (unknown) (unknown) than 2, and creatinine is 1.01 she is been 0.41 2.5 to typically. Likely has (units unknown) (unknown) (unknown) (no date) (unknown) (unknown) than replacing it. She does not appear to be in DKA at this time, glucose is (units unknown) (unknown) (unknown) (no date) (unknown) (unknown) this appears consistent with priors. BUN is 11 usually quite low even less (units unknown) (unknown) (unknown) (no date) (unknown) (unknown) to be in hyperosmola r state. (units unknown) (unknown) (unknown) (no date) (unknown) (unknown) to feel unwell and was having elevated sugars. Patient states she has had (units unknown) (unknown) (unknown) (no date) (unknown) (unknown) tobacco type: vaping (units unknown) (unknown) (unknown) (no date) (unknown) (unknown) unremarkable.? (units unknown) (unknown) (unknown) (no date) (unknown) (unknown) vomiting and cannabi s hyperemesis and gastroparesis. Patient presents with (units unknown) (unknown) (unknown) (no date) (unknown) (unknown) vomiting intermittently since Friday she was in the hospital had improvement was (units unknown) (unknown) (unknown) (no date) (unknown) (unknown) vomiting (units unknown) (unknown) (unknown) (no date) (unknown) (unknown) was given Haldol, Benadryl additional 1L fluid. (units unknown) (unknown) (unknown) (no date) (unknown) (unknown) was knocked off several days ago she has been using insulin injections rather (units unknown) (unknown) Result panel 1707 (unknown) (no date) (unknown) (unknown) 715 ng/ml (unknown) (unknown) (no date) (unknown) (unknown) 715 ng/ml (unknown) Result panel 1708 (unknown) (no date) (unknown) (unknown) (no value) (units unknown) (unknown) (unknown) (no date) (unknown) (unknown) 09/10/22 (units unknown) (unknown) (unknown) (no date) (unknown) (unknown) 1. No evidence for pulmonary embolism. (units unknown) (unknown) (unknown) (no date) (unknown) (unknown) [address] [place] [address] (units unknown) (unknown) (unknown) (no date) (unknown) (unknown) 2. Small hiatal hernia. There is mild concentric thickening of the distal (units unknown) (unknown) (unknown) (no date) (unknown) (unknown) 3. Distended stomach with gastric wall thickening consistent with gastritis. (units unknown) (unknown) (unknown) (no date) (unknown) (unknown) 4. Hepatic steatosis. (units unknown) (unknown) (unknown) (no date) (unknown) (unknown) Abdomen: Stomach is distended with an air-fluid level. There is mild gastric (units unknown) (unknown) (unknown) (no date) (unknown) (unknown) Accession Number: [id number] (units unknown) (unknown) (unknown) (no date) (unknown) (unknown) After the administration of intravenous contrast, 2 mm thick sections acquired (units unknown) (unknown) (unknown) (no date) (unknown) (unknown) Age/Sex: 27 / F Date of Service: (units unknown) (unknown) (unknown) (no date) (unknown) (unknown) [place] [address] (units unknown) (unknown) (unknown) (no date) (unknown) (unknown) Approved by: Martha Mosley M.D. on 09/10/2022 at 19:33 (units unknown) (unknown) (unknown) (no date) (unknown) (unknown) Bones and chest wall : No suspicious bony lesions. Ribs and thoracic spine (units unknown) (unknown) (unknown) (no date) (unknown) (unknown) COMPARISON: [facility], CT, CT ABDOMEN PELVIS W CON, 10/06/2021, 8:52. (units unknown) (unknown) (unknown) (no date) (unknown) (unknown) CT Scan Report (units unknown) (unknown) (unknown) (no date) (unknown) (unknown) : 1995 Acct:[id number] (units unknown) (unknown) (unknown) (no date) (unknown) (unknown) Dictated by: Martha Mosley M.D. on 09/10/2022 at 19:28 (units unknown) (unknown) (unknown) (no date) (unknown) (unknown) FINDINGS: (units unknown) (unknown) (unknown) (no date) (unknown) (unknown) For radiation dose reduction, the following was used: automated exposure (units unknown) (unknown) (unknown) (no date) (unknown) (unknown) Hospital, CR, XR CHEST 1V, 09/10/2022, 16:47. (units unknown) (unknown) (unknown) (no date) (unknown) (unknown) IMPRESSION: (units unknown) (unknown) (unknown) (no date) (unknown) (unknown) INDICATIONS: chest pain, elevated dimer, acute on chronic vomiting. (units unknown) (unknown) (unknown) (no date) (unknown) (unknown) Image quality: Excellent. (units unknown) (unknown) (unknown) (no date) (unknown) (unknown) [facility] (units unknown) (unknown) (unknown) (no date) (unknown) (unknown) [place] (units unknown) (unknown) (unknown) (no date) (unknown) (unknown) Loc: ED (units unknown) (unknown) (unknown) (no date) (unknown) (unknown) Lungs and pleura: Left basilar atelectasis. Lungs are other clear. No pleural (units unknown) (unknown) (unknown) (no date) (unknown) (unknown) Mediastinum: Heart size is normal, without pericardial effusion. Thoracic (units unknown) (unknown) (unknown) (no date) (unknown) (unknown) Mild concentric thickening at the gastroesophageal junction. (units unknown) (unknown) (unknown) (no date) (unknown) (unknown) Ordering Provider: Lois Szymanski D.O. (units unknown) (unknown) (unknown) (no date) (unknown) (unknown) PROCEDURE: CT ANGIO CHEST PE PROTOCOL (units unknown) (unknown) (unknown) (no date) (unknown) (unknown) Patient: Kaur Horton (units unknown) (unknown) (unknown) (no date) (unknown) (unknown) Procedure: CT angio chest PE protocol (units unknown) (unknown) (unknown) (no date) (unknown) (unknown) Pulmonary arteries: Pulmonary arteries are normal in size, and demonstrate no (units unknown) (unknown) (unknown) (no date) (unknown) (unknown) R#: [id number] (units unknown) (unknown) (unknown) (no date) (unknown) (unknown) Signed (units unknown) (unknown) (unknown) (no date) (unknown) (unknown) TECHNIQUE: (units unknown) (unknown) (unknown) (no date) (unknown) (unknown) adenopathy. (units unknown) (unknown) (unknown) (no date) (unknown) (unknown) adjustment of mA and/or kV according to patient size. (units unknown) (unknown) (unknown) (no date) (unknown) (unknown) aorta is (units unknown) (unknown) (unknown) (no date) (unknown) (unknown) appear intact (units unknown) (unknown) (unknown) (no date) (unknown) (unknown) control, (units unknown) (unknown) (unknown) (no date) (unknown) (unknown) effusions or pneumothorax. Central and peripheral airways are patent. (units unknown) (unknown) (unknown) (no date) (unknown) (unknown) esophagus (units unknown) (unknown) (unknown) (no date) (unknown) (unknown) from the (units unknown) (unknown) (unknown) (no date) (unknown) (unknown) hiatal hernia. (units unknown) (unknown) (unknown) (no date) (unknown) (unknown) intensity (units unknown) (unknown) (unknown) (no date) (unknown) (unknown) intraluminal filling defects to suggest central pulmonary embolism. (units unknown) (unknown) (unknown) (no date) (unknown) (unknown) normal in caliber an d enhancement. Esophagus is normal in caliber. Small (units unknown) (unknown) (unknown) (no date) (unknown) (unknown) projection (MIP) coronal and sagittal reformats were then acquired through the (units unknown) (unknown) (unknown) (no date) (unknown) (unknown) pulmonary apices to the posterior costophrenic angles. 3-dimensional maximum (units unknown) (unknown) (unknown) (no date) (unknown) (unknown) suggesting esophagitis. (units unknown) (unknown) (unknown) (no date) (unknown) (unknown) thickening. Hepatic steatosis (units unknown) (unknown) (unknown) (no date) (unknown) (unknown) thorax. (units unknown) (unknown) (unknown) (no date) (unknown) (unknown) throughout. Thyroid gland is normal. No axillary or supraclavicular (units unknown) (unknown) (unknown) (no date) (unknown) (unknown) wall (units unknown) (unknown) Result panel 1709 (unknown) (no date) (unknown) (unknown) (no value) (units unknown) (unknown) (unknown) (no date) (unknown) (unknown) #: [id number] (units unknown) (unknown) (unknown) (no date) (unknown) (unknown) (DME) insulin syringes (disposable) 1 mL syringe (units unknown) (unknown) (unknown) (no date) (unknown) (unknown) 09/10/22 09/10/22 09/10/22 Range/Units (units unknown) (unknown) (unknown) (no date) (unknown) (unknown) 09/10/22 16:25 (units unknown) (unknown) (unknown) (no date) (unknown) (unknown) 09/10/22 16:33 (units unknown) (unknown) (unknown) (no date) (unknown) (unknown) 09/10/22 16:56 (units unknown) (unknown) (unknown) (no date) (unknown) (unknown) 09/10/22 17:38 (units unknown) (unknown) (unknown) (no date) (unknown) (unknown) 09/10/22 17:50 (units unknown) (unknown) (unknown) (no date) (unknown) (unknown) 09/10/22 Range/Units (units unknown) (unknown) (unknown) (no date) (unknown) (unknown) 09/10/22 (units unknown) (unknown) (unknown) (no date) (unknown) (unknown) 1 mg PO TID PRN (Reason: anxiety) Qty: 4 0RF (units unknown) (unknown) (unknown) (no date) (unknown) (unknown) [address] (units unknown) (unknown) (unknown) (no date) (unknown) (unknown) 16:07 (units unknown) (unknown) (unknown) (no date) (unknown) (unknown) 16:25 16:25 16:25 (units unknown) (unknown) (unknown) (no date) (unknown) (unknown) 16:25 (units unknown) (unknown) (unknown) (no date) (unknown) (unknown) 210, bicarb is 23, she does have an anion gap of 15. Patient's hemoglobin is 10 (units unknown) (unknown) (unknown) (no date) (unknown) (unknown) 25 mg PO BID PRN (Reason: nausea and vomiting) (units unknown) (unknown) (unknown) (no date) (unknown) (unknown) 25 mg PA Q4-6H PRN (Reason: Nausea And Vomiting) Qty: 12 0RF (units unknown) (unknown) (unknown) (no date) (unknown) (unknown) 5 mg PO Q8H PRN (Reason: Nausea) (units unknown) (unknown) (unknown) (no date) (unknown) (unknown) 56 unit SUBCUT DAILY (units unknown) (unknown) (unknown) (no date) (unknown) (unknown) ? (units unknown) (unknown) (unknown) (no date) (unknown) (unknown) ABDOMEN: Soft, nontender. Nondistended. Normoactive bowel sounds all 4 (units unknown) (unknown) (unknown) (no date) (unknown) (unknown) ALT (<35) IU/L (units unknown) (unknown) (unknown) (no date) (unknown) (unknown) ALT 33 (<35) IU/L (units unknown) (unknown) (unknown) (no date) (unknown) (unknown) APTT (26-36) SECONDS (units unknown) (unknown) (unknown) (no date) (unknown) (unknown) APTT 19 L (26-36) SECONDS (units unknown) (unknown) (unknown) (no date) (unknown) (unknown) AST (14-36) IU/L (units unknown) (unknown) (unknown) (no date) (unknown) (unknown) AST 23 (14-36) IU/L (units unknown) (unknown) (unknown) (no date) (unknown) (unknown) Accession Number: [id number] ?? (units unknown) (unknown) (unknown) (no date) (unknown) (unknown) Acct:[id number] (units unknown) (unknown) (unknown) (no date) (unknown) (unknown) Age/Sex: 27 / F (units unknown) (unknown) (unknown) (no date) (unknown) (unknown) Albumin (3.5-5.0) g/dL (units unknown) (unknown) (unknown) (no date) (unknown) (unknown) Albumin 4.5 (3.5-5.0 ) g/dL (units unknown) (unknown) (unknown) (no date) (unknown) (unknown) Albumin/Globulin Ratio (1.0-2.8) (units unknown) (unknown) (unknown) (no date) (unknown) (unknown) Albumin/Globulin Ratio 1.6 (1.0-2.8) (units unknown) (unknown) (unknown) (no date) (unknown) (unknown) Alkaline Phosphatase (38-126) U/L (units unknown) (unknown) (unknown) (no date) (unknown) (unknown) Alkaline Phosphatase 97 (38-126) U/L (units unknown) (unknown) (unknown) (no date) (unknown) (unknown) Allergies (units unknown) (unknown) (unknown) (no date) (unknown) (unknown) Allergy/AdvReac Type Severity Reaction Status Date / Time (units unknown) (unknown) (unknown) (no date) (unknown) (unknown) [place] [address] (units unknown) (unknown) (unknown) (no date) (unknown) (unknown) Anemia (units unknown) (unknown) (unknown) (no date) (unknown) (unknown) Approved by: Martha Mosley M.D. on 09/10/2022 at 17:11?? (units unknown) (unknown) (unknown) (no date) (unknown) (unknown) As directed for use with insulin injections (units unknown) (unknown) (unknown) (no date) (unknown) (unknown) Attestation: I personally reviewed and interpreted this ECG as follows: (units unknown) (unknown) (unknown) (no date) (unknown) (unknown) BUN (7-17) mg/dL (units unknown) (unknown) (unknown) (no date) (unknown) (unknown) BUN 11 (7-17) mg/dL (units unknown) (unknown) (unknown) (no date) (unknown) (unknown) BUN/Creatinine Ratio (6-22) (units unknown) (unknown) (unknown) (no date) (unknown) (unknown) BUN/Creatinine Ratio 10.9 (6-22) (units unknown) (unknown) (unknown) (no date) (unknown) (unknown) Baso # (Auto) (0-100 ) /uL (units unknown) (unknown) (unknown) (no date) (unknown) (unknown) Baso # (Auto) 0 (0-100) /uL (units unknown) (unknown) (unknown) (no date) (unknown) (unknown) Baso % (Auto) (0-2) % (units unknown) (unknown) (unknown) (no date) (unknown) (unknown) Baso % (Auto) 0.2 (0-2) % (units unknown) (unknown) (unknown) (no date) (unknown) (unknown) Blood Culture Stat (units unknown) (unknown) (unknown) (no date) (unknown) (unknown) Blood Pressure 131/8 2 09/10/22 16:07 (units unknown) (unknown) (unknown) (no date) (unknown) (unknown) Blood Pressure 131/82 (units unknown) (unknown) (unknown) (no date) (unknown) (unknown) Bones and chest wall:? No suspicious bony lesions.? Overlying soft tissues (units unknown) (unknown) (unknown) (no date) (unknown) (unknown) CARDIOVASCULAR: Regular rate and rhythm without murmurs, rubs or gallops. No (units unknown) (unknown) (unknown) (no date) (unknown) (unknown) COMPARISON:? [facility], CR, XR CHEST 1 VIEW, 09/08/2022, 9:29.? (units unknown) (unknown) (unknown) (no date) (unknown) (unknown) COVID19 -Nasal RAPID Stat (units unknown) (unknown) (unknown) (no date) (unknown) (unknown) Calcium (8.4-10.2) mg/dL (units unknown) (unknown) (unknown) (no date) (unknown) (unknown) Calcium 8.7 (8.4-10.2) mg/dL (units unknown) (unknown) (unknown) (no date) (unknown) (unknown) Cannabis hyperemesis syndrome concurrent with and due to cannabis dependence (units unknown) (unknown) (unknown) (no date) (unknown) (unknown) Carbon Dioxide (22-32) mmol/L (units unknown) (unknown) (unknown) (no date) (unknown) (unknown) Carbon Dioxide 23 (22-32) mmol/L (units unknown) (unknown) (unknown) (no date) (unknown) (unknown) Chest x-ray: (units unknown) (unknown) (unknown) (no date) (unknown) (unknown) Chief complaint: Diabetic Problem (units unknown) (unknown) (unknown) (no date) (unknown) (unknown) Chloride (98-107) mmol/L (units unknown) (unknown) (unknown) (no date) (unknown) (unknown) Chloride 93 L (98-107) mmol/L (units unknown) (unknown) (unknown) (no date) (unknown) (unknown) Clinical Impression: (units unknown) (unknown) (unknown) (no date) (unknown) (unknown) Complete Blood Count AUTO DIFF Stat (units unknown) (unknown) (unknown) (no date) (unknown) (unknown) Comprehensive Metabolic Panel Stat (units unknown) (unknown) (unknown) (no date) (unknown) (unknown) Course (units unknown) (unknown) (unknown) (no date) (unknown) (unknown) Creatinine (0.52-1.04) mg/dL (units unknown) (unknown) (unknown) (no date) (unknown) (unknown) Creatinine 1.01 (0.52-1.04) mg/dL (units unknown) (unknown) (unknown) (no date) (unknown) (unknown) Cyclic vomiting syndrome (units unknown) (unknown) (unknown) (no date) (unknown) (unknown) DKA (diabetic ketoacidoses) (units unknown) (unknown) (unknown) (no date) (unknown) (unknown) : 1995 Acct:[id number] (units unknown) (unknown) (unknown) (no date) (unknown) (unknown) : 1995 (units unknown) (unknown) (unknown) (no date) (unknown) (unknown) Date of Service: 09/10/22 (units unknown) (unknown) (unknown) (no date) (unknown) (unknown) Departure (units unknown) (unknown) (unknown) (no date) (unknown) (unknown) Diabetes mellitus, type I (units unknown) (unknown) (unknown) (no date) (unknown) (unknown) Dictated by: Martha Mosley M.D. on 09/10/2022 at 17:08 ? ? (units unknown) (unknown) (unknown) (no date) (unknown) (unknown) Diphenhydramine HCl (Diphenhydramine 50 Mg/Ml Vial) 50 mg IV NOW ONE (units unknown) (unknown) (unknown) (no date) (unknown) (unknown) Discharge Plan (units unknown) (unknown) (unknown) (no date) (unknown) (unknown) Discontinued Medications (units unknown) (unknown) (unknown) (no date) (unknown) (unknown) Documented By: AT (units unknown) (unknown) (unknown) (no date) (unknown) (unknown) ECG Data (units unknown) (unknown) (unknown) (no date) (unknown) (unknown) ED Orders (units unknown) (unknown) (unknown) (no date) (unknown) (unknown) EKG-12 Lead Stat (units unknown) (unknown) (unknown) (no date) (unknown) (unknown) ER Physician: Demetrius Krause D.O. (units unknown) (unknown) (unknown) (no date) (unknown) (unknown) EXTREMITIES: Normal range of motion, no clubbing or edema. Neurovascularly (units unknown) (unknown) (unknown) (no date) (unknown) (unknown) Emergency Report (units unknown) (unknown) (unknown) (no date) (unknown) (unknown) Eos # (Auto) (0-450) /uL (units unknown) (unknown) (unknown) (no date) (unknown) (unknown) Eos # (Auto) 0 (0-450) /uL (units unknown) (unknown) (unknown) (no date) (unknown) (unknown) Eos % (Auto) (2-4) % (units unknown) (unknown) (unknown) (no date) (unknown) (unknown) Eos % (Auto) 0.1 L (2-4) % (units unknown) (unknown) (unknown) (no date) (unknown) (unknown) Estimated GFR > 60 (>60) mL/min (units unknown) (unknown) (unknown) (no date) (unknown) (unknown) Estimated GFR (>60) mL/min (units unknown) (unknown) (unknown) (no date) (unknown) (unknown) Exam Narrative: (units unknown) (unknown) (unknown) (no date) (unknown) (unknown) Exam (units unknown) (unknown) (unknown) (no date) (unknown) (unknown) FINDINGS:? (units unknown) (unknown) (unknown) (no date) (unknown) (unknown) Family History (units unknown) (unknown) (unknown) (no date) (unknown) (unknown) Father Healthy adult (units unknown) (unknown) (unknown) (no date) (unknown) (unknown) GENERAL: Alert and oriented x three, female in moderate distress. Patient is (units unknown) (unknown) (unknown) (no date) (unknown) (unknown) : No CVA tenderness (units unknown) (unknown) (unknown) (no date) (unknown) (unknown) Gastroparesis (units unknown) (unknown) (unknown) (no date) (unknown) (unknown) General (units unknown) (unknown) (unknown) (no date) (unknown) (unknown) Globulin (1.7-4.1) g/dL (units unknown) (unknown) (unknown) (no date) (unknown) (unknown) Globulin 2.9 (1.7-4.1) g/dL (units unknown) (unknown) (unknown) (no date) (unknown) (unknown) Glucose (70-100) mg/dL (units unknown) (unknown) (unknown) (no date) (unknown) (unknown) Glucose 210 H (70-100) mg/dL (units unknown) (unknown) (unknown) (no date) (unknown) (unknown) Glucose POC 214 (units unknown) (unknown) (unknown) (no date) (unknown) (unknown) HEENT: Head normocephalic, atraumatic, EOMI, pupils reactive, face symmetric, (units unknown) (unknown) (unknown) (no date) (unknown) (unknown) HPI - General Adult (units unknown) (unknown) (unknown) (no date) (unknown) (unknown) HPI narrative: (units unknown) (unknown) (unknown) (no date) (unknown) (unknown) Haloperidol (Haloperidol 5 Mg/Ml Vial) 5 mg IV NOW ONE (units unknown) (unknown) (unknown) (no date) (unknown) (unknown) Hct (36-46) % (units unknown) (unknown) (unknown) (no date) (unknown) (unknown) Hct 33.1 L (36-46) % (units unknown) (unknown) (unknown) (no date) (unknown) (unknown) Hgb (12.0-16.0) g/dL (units unknown) (unknown) (unknown) (no date) (unknown) (unknown) Hgb 10.9 L (12.0-16.0) g/dL (units unknown) (unknown) (unknown) (no date) (unknown) (unknown) History of Present Illness (units unknown) (unknown) (unknown) (no date) (unknown) (unknown) Home Medications (units unknown) (unknown) (unknown) (no date) (unknown) (unknown) Delonte Trevino MD [Primary Care Provider] (units unknown) (unknown) (unknown) (no date) (unknown) (unknown) Hospital, CR, XR CHEST 1V, 06/27/2021, 3:44. (units unknown) (unknown) (unknown) (no date) (unknown) (unknown) IMPRESSION:? No acut e cardiopulmonary disease. (units unknown) (unknown) (unknown) (no date) (unknown) (unknown) INDICATIONS:? suspected sepsis (units unknown) (unknown) (unknown) (no date) (unknown) (unknown) INR (0.9-1.3) (units unknown) (unknown) (unknown) (no date) (unknown) (unknown) INR 1.2 (0.9-1.3) (units unknown) (unknown) (unknown) (no date) (unknown) (unknown) Imaging Data (units unknown) (unknown) (unknown) (no date) (unknown) (unknown) Initial Vital Signs (units unknown) (unknown) (unknown) (no date) (unknown) (unknown) Initial Vital Signs: (units unknown) (unknown) (unknown) (no date) (unknown) (unknown) Insulin dependent diabetes mellitus (units unknown) (unknown) (unknown) (no date) (unknown) (unknown) Interpretation: (units unknown) (unknown) (unknown) (no date) (unknown) (unknown) [address] [address] (units unknown) (unknown) (unknown) (no date) (unknown) (unknown) [facility] (units unknown) (unknown) (unknown) (no date) (unknown) (unknown) [place] (units unknown) (unknown) (unknown) (no date) (unknown) (unknown) JVD. No swelling bilateral lower extremities. (units unknown) (unknown) (unknown) (no date) (unknown) (unknown) Lab Data (units unknown) (unknown) (unknown) (no date) (unknown) (unknown) Lab Results (units unknown) (unknown) (unknown) (no date) (unknown) (unknown) Labs: (units unknown) (unknown) (unknown) (no date) (unknown) (unknown) Lactate (0.7-2.1) mmol/L (units unknown) (unknown) (unknown) (no date) (unknown) (unknown) Lactate (Lactic Acid ) Stat (units unknown) (unknown) (unknown) (no date) (unknown) (unknown) Lactate 1.1 (0.7-2.1 ) mmol/L (units unknown) (unknown) (unknown) (no date) (unknown) (unknown) Last Admin: 09/10/22 16:41 Dose: 1,000 mls/hr (units unknown) (unknown) (unknown) (no date) (unknown) (unknown) Last Admin: 09/10/22 16:41 Dose: 4 mg (units unknown) (unknown) (unknown) (no date) (unknown) (unknown) Limitations: no limitations (units unknown) (unknown) (unknown) (no date) (unknown) (unknown) Lipase (23-300) U/L (units unknown) (unknown) (unknown) (no date) (unknown) (unknown) Lipase 16 L (23-300) U/L (units unknown) (unknown) (unknown) (no date) (unknown) (unknown) Lipase Stat (units unknown) (unknown) (unknown) (no date) (unknown) (unknown) Loc: ED (units unknown) (unknown) (unknown) (no date) (unknown) (unknown) Lungs and pleura:? Lungs are clear.? No pleural effusions or pneumothorax.? (units unknown) (unknown) (unknown) (no date) (unknown) (unknown) Lymph # (Auto) (0637-8582) /uL (units unknown) (unknown) (unknown) (no date) (unknown) (unknown) Lymph # (Auto) 1400 (7957-2318) /uL (units unknown) (unknown) (unknown) (no date) (unknown) (unknown) Lymph % (Auto) (25-40) % (units unknown) (unknown) (unknown) (no date) (unknown) (unknown) Lymph % (Auto) 11.0 L (25-40) % (units unknown) (unknown) (unknown) (no date) (unknown) (unknown) MCH (26-34) PG (units unknown) (unknown) (unknown) (no date) (unknown) (unknown) MCH 26.2 (26-34) PG (units unknown) (unknown) (unknown) (no date) (unknown) (unknown) MCHC (30-36) % (units unknown) (unknown) (unknown) (no date) (unknown) (unknown) MCHC 32.9 (30-36) % (units unknown) (unknown) (unknown) (no date) (unknown) (unknown) MCV (80-100) fL (units unknown) (unknown) (unknown) (no date) (unknown) (unknown) MCV 79.7 L (80-100) fL (units unknown) (unknown) (unknown) (no date) (unknown) (unknown) MDM Narrative (units unknown) (unknown) (unknown) (no date) (unknown) (unknown) MR#: [id number] (units unknown) (unknown) (unknown) (no date) (unknown) (unknown) Mediastinum:? Mediastinal contours appear normal.? Heart size is normal.? (units unknown) (unknown) (unknown) (no date) (unknown) (unknown) Medical Decision Making (units unknown) (unknown) (unknown) (no date) (unknown) (unknown) Medical History (units unknown) (unknown) (unknown) (no date) (unknown) (unknown) Medical decision making narrative: (units unknown) (unknown) (unknown) (no date) (unknown) (unknown) Medication Instructions Recorded Confirmed (units unknown) (unknown) (unknown) (no date) (unknown) (unknown) Medication Instructions Recorded (units unknown) (unknown) (unknown) (no date) (unknown) (unknown) Migraine headache with aura (units unknown) (unknown) (unknown) (no date) (unknown) (unknown) Mode of arrival: Ambulatory (units unknown) (unknown) (unknown) (no date) (unknown) (unknown) O'Brien # (Auto) (0-900 ) /uL (units unknown) (unknown) (unknown) (no date) (unknown) (unknown) O'Brien # (Auto) 1200 H (0-900) /uL (units unknown) (unknown) (unknown) (no date) (unknown) (unknown) O'Brien % (Auto) (3-14) % (units unknown) (unknown) (unknown) (no date) (unknown) (unknown) O'Brien % (Auto) 9.5 (3-14) % (units unknown) (unknown) (unknown) (no date) (unknown) (unknown) Mother Hypertension (units unknown) (unknown) (unknown) (no date) (unknown) (unknown) Myopia (units unknown) (unknown) (unknown) (no date) (unknown) (unknown) NECK: Supple, full range of motion (units unknown) (unknown) (unknown) (no date) (unknown) (unknown) NEUROLOGICAL: Crania l nerves II through XII grossly intact. Moving all (units unknown) (unknown) (unknown) (no date) (unknown) (unknown) Narrative (units unknown) (unknown) (unknown) (no date) (unknown) (unknown) Neut # (Auto) (2122-1131) /uL (units unknown) (unknown) (unknown) (no date) (unknown) (unknown) Neut # (Auto) 9900 H (0195-5988) /uL (units unknown) (unknown) (unknown) (no date) (unknown) (unknown) Neut % (Auto) (50-75 ) % (units unknown) (unknown) (unknown) (no date) (unknown) (unknown) Neut % (Auto) 79.2 H (50-75) % (units unknown) (unknown) (unknown) (no date) (unknown) (unknown) No Action (units unknown) (unknown) (unknown) (no date) (unknown) (unknown) Ondansetron HCl (Ondansetron 4 Mg Odt) 4 mg SL NOW PRN (units unknown) (unknown) (unknown) (no date) (unknown) (unknown) Ondansetron HCl (Ondansetron 4 Mg/2 Ml Inj) 4 mg IV NOW PRN (units unknown) (unknown) (unknown) (no date) (unknown) (unknown) Ordered: (units unknown) (unknown) (unknown) (no date) (unknown) (unknown) Ordering Provider: Lois Szymanski D.O. (units unknown) (unknown) (unknown) (no date) (unknown) (unknown) Orders (units unknown) (unknown) (unknown) (no date) (unknown) (unknown) Oxygen Delivery Method Room Air 09/10/22 16:07 (units unknown) (unknown) (unknown) (no date) (unknown) (unknown) Oxygen Delivery Method Room Air (units unknown) (unknown) (unknown) (no date) (unknown) (unknown) PRN Reason: Nausea And Vomiting (units unknown) (unknown) (unknown) (no date) (unknown) (unknown) PROCEDURE:? XR CHEST 1V (units unknown) (unknown) (unknown) (no date) (unknown) (unknown) PT (10.1-12.7) SECONDS (units unknown) (unknown) (unknown) (no date) (unknown) (unknown) PT 13.6 H (10.1-12.7 ) SECONDS (units unknown) (unknown) (unknown) (no date) (unknown) (unknown) PTT Partial Thromboplastin Sonny Stat (units unknown) (unknown) (unknown) (no date) (unknown) (unknown) Pancreatitis (units unknown) (unknown) (unknown) (no date) (unknown) (unknown) Patient History (units unknown) (unknown) (unknown) (no date) (unknown) (unknown) Patient received a L fluids and Zofran here in the department still feeling (units unknown) (unknown) (unknown) (no date) (unknown) (unknown) Patient signed out t o Dr. Lanker while awaiting rest of workup for final (units unknown) (unknown) (unknown) (no date) (unknown) (unknown) Patient: Kaur Horton MR (units unknown) (unknown) (unknown) (no date) (unknown) (unknown) Patient: Kaur Horton (units unknown) (unknown) (unknown) (no date) (unknown) (unknown) Pending urine for , UDS and evaluation for infection. (units unknown) (unknown) (unknown) (no date) (unknown) (unknown) Plt Count (150-400) X103/uL (units unknown) (unknown) (unknown) (no date) (unknown) (unknown) Plt Count 312 (150-400) X103/uL (units unknown) (unknown) (unknown) (no date) (unknown) (unknown) Point of Care Testing (units unknown) (unknown) (unknown) (no date) (unknown) (unknown) Point of care testing: (units unknown) (unknown) (unknown) (no date) (unknown) (unknown) Potassium (3.4-5.1) mmol/L (units unknown) (unknown) (unknown) (no date) (unknown) (unknown) Potassium 3.2 L (3.4-5.1) mmol/L (units unknown) (unknown) (unknown) (no date) (unknown) (unknown) Prescriptions: (units unknown) (unknown) (unknown) (no date) (unknown) (unknown) Previous Rx's (units unknown) (unknown) (unknown) (no date) (unknown) (unknown) Prior ECG tracings: available for review (units unknown) (unknown) (unknown) (no date) (unknown) (unknown) Procalcitonin (<0.5) ng/mL (units unknown) (unknown) (unknown) (no date) (unknown) (unknown) Procalcitonin 0.14 (<0.5) ng/mL (units unknown) (unknown) (unknown) (no date) (unknown) (unknown) Procalcitonin Stat (units unknown) (unknown) (unknown) (no date) (unknown) (unknown) Procedure: XR chest 1V (units unknown) (unknown) (unknown) (no date) (unknown) (unknown) Prothrombin Time INR Stat (units unknown) (unknown) (unknown) (no date) (unknown) (unknown) Pulse Oximetry 100 09/10/22 16:07 (units unknown) (unknown) (unknown) (no date) (unknown) (unknown) Pulse Oximetry 100 (units unknown) (unknown) (unknown) (no date) (unknown) (unknown) Pulse Rate 112 H 09/10/22 16:07 (units unknown) (unknown) (unknown) (no date) (unknown) (unknown) Pulse Rate 112 H (units unknown) (unknown) (unknown) (no date) (unknown) (unknown) RBC (4.0-5.2) X106/uL (units unknown) (unknown) (unknown) (no date) (unknown) (unknown) RBC 4.16 (4.0-5.2) X106/uL (units unknown) (unknown) (unknown) (no date) (unknown) (unknown) RDW (11.6-14.8) % (units unknown) (unknown) (unknown) (no date) (unknown) (unknown) RDW 17.1 H (11.6-14.8) % (units unknown) (unknown) (unknown) (no date) (unknown) (unknown) RESPIRATORY: Breath sounds equal bilaterally, no wheezes rales or rhonchi. No (units unknown) (unknown) (unknown) (no date) (unknown) (unknown) ROS Unobtainable: Al l systems reviewed + are unremarkable except as noted in HPI (units unknown) (unknown) (unknown) (no date) (unknown) (unknown) RT Consult Eval and Treat NOW (units unknown) (unknown) (unknown) (no date) (unknown) (unknown) Radiologist's Impression: (units unknown) (unknown) (unknown) (no date) (unknown) (unknown) Referrals: (units unknown) (unknown) (unknown) (no date) (unknown) (unknown) Related Data (units unknown) (unknown) (unknown) (no date) (unknown) (unknown) Respiratory Rate 24 09/10/22 16:07 (units unknown) (unknown) (unknown) (no date) (unknown) (unknown) Respiratory Rate 24 (units unknown) (unknown) (unknown) (no date) (unknown) (unknown) Review of Systems (units unknown) (unknown) (unknown) (no date) (unknown) (unknown) Rx Instructions: (units unknown) (unknown) (unknown) (no date) (unknown) (unknown) SKIN: Warm, dry, no petechiae, no rashes or lesions. (units unknown) (unknown) (unknown) (no date) (unknown) (unknown) See Rx Instructions .ROUTE .MEDSUPPLY Qty: 500 1RF (units unknown) (unknown) (unknown) (no date) (unknown) (unknown) She does use THC occasionally. Denies other illicit. Jared Trevino is her (units unknown) (unknown) (unknown) (no date) (unknown) (unknown) She is been complaining of chest pain, no dynamic changes on EKG but troponin (units unknown) (unknown) (unknown) (no date) (unknown) (unknown) Signed By: (units unknown) (unknown) (unknown) (no date) (unknown) (unknown) Signed (units unknown) (unknown) (unknown) (no date) (unknown) (unknown) Sinus rhythm, rate o f 94 PA 144 QRS 80 QTC of 427. No new ST elevation (units unknown) (unknown) (unknown) (no date) (unknown) (unknown) Smoking Status: Current every day smoker (units unknown) (unknown) (unknown) (no date) (unknown) (unknown) Social History (units unknown) (unknown) (unknown) (no date) (unknown) (unknown) Sodium (137-145) mmol/L (units unknown) (unknown) (unknown) (no date) (unknown) (unknown) Sodium 133 L (137-145) mmol/L (units unknown) (unknown) (unknown) (no date) (unknown) (unknown) Sodium Chloride (Normal Saline 0.9%) 1,000 mls @ 1,000 mls/hr IV BOLUS ONE (units unknown) (unknown) (unknown) (no date) (unknown) (unknown) Source: patient, RN notes reviewed and old records reviewed (units unknown) (unknown) (unknown) (no date) (unknown) (unknown) Stated complaint: thinks DKA (units unknown) (unknown) (unknown) (no date) (unknown) (unknown) Status post appendectomy (units unknown) (unknown) (unknown) (no date) (unknown) (unknown) Stop: 09/10/22 17:32 (units unknown) (unknown) (unknown) (no date) (unknown) (unknown) Stop: 09/10/22 17:49 (units unknown) (unknown) (unknown) (no date) (unknown) (unknown) Stop: 09/10/22 17:51 (units unknown) (unknown) (unknown) (no date) (unknown) (unknown) Stop: 09/10/22 18:47 (units unknown) (unknown) (unknown) (no date) (unknown) (unknown) Substance Use Type: marijuana (units unknown) (unknown) (unknown) (no date) (unknown) (unknown) Surgical History (units unknown) (unknown) (unknown) (no date) (unknown) (unknown) Surgical changes and devices:? None.? (units unknown) (unknown) (unknown) (no date) (unknown) (unknown) TECHNIQUE:? One view of the chest was acquired.? (units unknown) (unknown) (unknown) (no date) (unknown) (unknown) Temperature 98.1 F 09/10/22 16:07 (units unknown) (unknown) (unknown) (no date) (unknown) (unknown) Temperature 98.1 F (units unknown) (unknown) (unknown) (no date) (unknown) (unknown) This is a 27-year-ol d female type 1 insulin-dependent diabetic history of cyclic (units unknown) (unknown) (unknown) (no date) (unknown) (unknown) This is a 27-year-ol d female with known insulin-dependent diabetes who is pumped (units unknown) (unknown) (unknown) (no date) (unknown) (unknown) Time Seen by Provider: 09/10/22 16:39 (units unknown) (unknown) (unknown) (no date) (unknown) (unknown) Total Bilirubin (0.2-1.3) mg/dL (units unknown) (unknown) (unknown) (no date) (unknown) (unknown) Total Bilirubin 0.6 (0.2-1.3) mg/dL (units unknown) (unknown) (unknown) (no date) (unknown) (unknown) Total Protein (6.3-8.2) g/dL (units unknown) (unknown) (unknown) (no date) (unknown) (unknown) Total Protein 7.4 (6.3-8.2) g/dL (units unknown) (unknown) (unknown) (no date) (unknown) (unknown) Troponin + CK Cardia c Panel Stat (units unknown) (unknown) (unknown) (no date) (unknown) (unknown) U-100 Insulin aspart) (units unknown) (unknown) (unknown) (no date) (unknown) (unknown) Urine Drug Screen, Rapid Stat (units unknown) (unknown) (unknown) (no date) (unknown) (unknown) Vital Signs - 8 hr (units unknown) (unknown) (unknown) (no date) (unknown) (unknown) Vital Signs (units unknown) (unknown) (unknown) (no date) (unknown) (unknown) Vital signs: (units unknown) (unknown) (unknown) (no date) (unknown) (unknown) Vomiting (units unknown) (unknown) (unknown) (no date) (unknown) (unknown) WBC (4.5-11.0) X103/uL (units unknown) (unknown) (unknown) (no date) (unknown) (unknown) WBC 12.5 H (4.5-11.0 ) X103/uL (units unknown) (unknown) (unknown) (no date) (unknown) (unknown) XR chest 1V Stat (units unknown) (unknown) (unknown) (no date) (unknown) (unknown) XRay Report (units unknown) (unknown) (unknown) (no date) (unknown) (unknown) [Embedded Image Not Available] (units unknown) (unknown) (unknown) (no date) (unknown) (unknown) alcohol intake frequency: holidays/special occasions only (units unknown) (unknown) (unknown) (no date) (unknown) (unknown) alcohol intake: never (units unknown) (unknown) (unknown) (no date) (unknown) (unknown) and D-dimer were included as she is had recent hospitalizations. (units unknown) (unknown) (unknown) (no date) (unknown) (unknown) and below (units unknown) (unknown) (unknown) (no date) (unknown) (unknown) appear (units unknown) (unknown) (unknown) (no date) (unknown) (unknown) appreciated. Patient has prior from 08/15/2022 and multiples prior to this. (units unknown) (unknown) (unknown) (no date) (unknown) (unknown) back on she is been using insulin sliding scale and states that she is continued (units unknown) (unknown) (unknown) (no date) (unknown) (unknown) complains of some lower back pain. She states she hurts all over. She states (units unknown) (unknown) (unknown) (no date) (unknown) (unknown) complaint of feeling unwell since Friday, patient states she knocked her pump (units unknown) (unknown) (unknown) (no date) (unknown) (unknown) disposition. (units unknown) (unknown) (unknown) (no date) (unknown) (unknown) extremities (units unknown) (unknown) (unknown) (no date) (unknown) (unknown) fevers or chills. Sh e does complain of some substernal chest pain, she (units unknown) (unknown) (unknown) (no date) (unknown) (unknown) gastroparesis and DKA. She does not appear to be in DKA today. Does not appear (units unknown) (unknown) (unknown) (no date) (unknown) (unknown) had admissions for UTIs with intractable emesis in combination with (units unknown) (unknown) (unknown) (no date) (unknown) (unknown) household members: spouse (units unknown) (unknown) (unknown) (no date) (unknown) (unknown) insulin aspart U-100 100 unit/mL 56 unit SUBCUT DAILY 08/12/22 08/14/22 (units unknown) (unknown) (unknown) (no date) (unknown) (unknown) insulin aspart U-100 [Novolog U-100 Insulin aspart] 100 unit/mL solution (units unknown) (unknown) (unknown) (no date) (unknown) (unknown) insulin syringes (disposable) 1 mL #500 ea 08/04/20 (units unknown) (unknown) (unknown) (no date) (unknown) (unknown) intact (units unknown) (unknown) (unknown) (no date) (unknown) (unknown) ketorolac [From Toradol] Allergy Verified 08/10/22 14:43 (units unknown) (unknown) (unknown) (no date) (unknown) (unknown) lorazepam 1 mg table t (Ativan) 1 mg PO TID PRN anxiety #4 tabs 08/16/22 (units unknown) (unknown) (unknown) (no date) (unknown) (unknown) lorazepam [Ativan] 1 mg tablet (units unknown) (unknown) (unknown) (no date) (unknown) (unknown) metoclopramide HCl 5 mg/5 mL oral 5 mg PO Q8H PRN Nausea 08/12/22 08/12/22 (units unknown) (unknown) (unknown) (no date) (unknown) (unknown) metoclopramide HCl 5 mg/5 mL solution (units unknown) (unknown) (unknown) (no date) (unknown) (unknown) metoclopramide for gastroparesis. Patient states no new surgeries. She states (units unknown) (unknown) (unknown) (no date) (unknown) (unknown) moist mucous membranes (units unknown) (unknown) (unknown) (no date) (unknown) (unknown) not diaphoretic. There is slightly pale. (units unknown) (unknown) (unknown) (no date) (unknown) (unknown) off several days ago and was feeling unwell enough that she has not placed it (units unknown) (unknown) (unknown) (no date) (unknown) (unknown) or frequency. No new swelling in her extremities. She states she is on (units unknown) (unknown) (unknown) (no date) (unknown) (unknown) per pump (units unknown) (unknown) (unknown) (no date) (unknown) (unknown) primary care. (units unknown) (unknown) (unknown) (no date) (unknown) (unknown) promethazine 12.5 mg tablet 25 mg PO BID PRN nausea and 08/12/22 08/12/22 (units unknown) (unknown) (unknown) (no date) (unknown) (unknown) promethazine 12.5 mg tablet (units unknown) (unknown) (unknown) (no date) (unknown) (unknown) promethazine 25 mg rectal 25 mg PA Q4-6H PRN Nausea And 08/16/22 (units unknown) (unknown) (unknown) (no date) (unknown) (unknown) promethazine [Promethegan] 25 mg suppository (units unknown) (unknown) (unknown) (no date) (unknown) (unknown) quadrants. No guarding or rebound, rigidity, no mass (units unknown) (unknown) (unknown) (no date) (unknown) (unknown) quite nauseated but not active vomiting, patient does not have prolonged QT come (units unknown) (unknown) (unknown) (no date) (unknown) (unknown) sent home with oral medications and then had reoccurrence at home. She denies (units unknown) (unknown) (unknown) (no date) (unknown) (unknown) she is allergic to Toradol. She states she vapes tobacco, she denies alcohol. (units unknown) (unknown) (unknown) (no date) (unknown) (unknown) she is been stooling regularly, no black or bloody stools. No dysuria, urgency (units unknown) (unknown) (unknown) (no date) (unknown) (unknown) solution (units unknown) (unknown) (unknown) (no date) (unknown) (unknown) some hemoconcentration. LFTs are negative, pro callus negative. Patient has (units unknown) (unknown) (unknown) (no date) (unknown) (unknown) subcutaneous solutio n (Novolog (units unknown) (unknown) (unknown) (no date) (unknown) (unknown) suppository (Promethegan) Vomiting #12 ea (units unknown) (unknown) (unknown) (no date) (unknown) (unknown) tachypnea. No accessory muscle use. (units unknown) (unknown) (unknown) (no date) (unknown) (unknown) than 2, and creatinine is 1.01 she is been 0.41 2.5 to typically. Likely has (units unknown) (unknown) (unknown) (no date) (unknown) (unknown) than replacing it. She does not appear to be in DKA at this time, glucose is (units unknown) (unknown) (unknown) (no date) (unknown) (unknown) this appears consistent with priors. BUN is 11 usually quite low even less (units unknown) (unknown) (unknown) (no date) (unknown) (unknown) to be in hyperosmola r state. (units unknown) (unknown) (unknown) (no date) (unknown) (unknown) to feel unwell and was having elevated sugars. Patient states she has had (units unknown) (unknown) (unknown) (no date) (unknown) (unknown) tobacco type: vaping (units unknown) (unknown) (unknown) (no date) (unknown) (unknown) unremarkable.? (units unknown) (unknown) (unknown) (no date) (unknown) (unknown) vomiting and cannabi s hyperemesis and gastroparesis. Patient presents with (units unknown) (unknown) (unknown) (no date) (unknown) (unknown) vomiting intermittently since Friday she was in the hospital had improvement was (units unknown) (unknown) (unknown) (no date) (unknown) (unknown) vomiting (units unknown) (unknown) (unknown) (no date) (unknown) (unknown) was given Haldol, Benadryl additional 1L fluid. (units unknown) (unknown) (unknown) (no date) (unknown) (unknown) was knocked off several days ago she has been using insulin injections rather (units unknown) (unknown) Result panel 1710 (unknown) (no date) (unknown) (unknown) < 0.012 ng/ml (unknown) (unknown) (no date) (unknown) (unknown) < 0.012 ng/ml (unknown) (unknown) (no date) (unknown) (unknown) 43 u/l (unknown) (unknown) (no date) (unknown) (unknown) Test not performed % (unknown) (unknown) (no date) (unknown) (unknown) Test not performed % (unknown) (unknown) (no date) (unknown) (unknown) Test not performed ng/ml (unknown) (unknown) (no date) (unknown) (unknown) Test not performed ng/ml (unknown) Result panel 1711 (unknown) (no date) (unknown) (unknown) Negative (units unknown) (unknown) Result panel 1712 (unknown) (no date) (unknown) (unknown) Negative (units unknown) (unknown) (unknown) (no date) (unknown) (unknown) Negative (units unknown) (unknown) Result panel 1713 (unknown) (no date) (unknown) (unknown) Negative (units unknown) (unknown) (unknown) (no date) (unknown) (unknown) Normal (units unknown) (unknown) (unknown) (no date) (unknown) (unknown) Positive (units unknown) (unknown) Result panel 1714 (unknown) (no date) (unknown) (unknown) (no value) (units unknown) (unknown) (unknown) (no date) (unknown) (unknown) NO GROWTH AFTER 24 HOURS (units unknown) (unknown) (unknown) (no date) (unknown) (unknown) NO GROWTH AFTER 24 HOURS (units unknown) (unknown) Result panel 1715 (unknown) (no date) (unknown) (unknown) (no value) (units unknown) (unknown) (unknown) (no date) (unknown) (unknown) NO GROWTH AFTER 48 HOURS (units unknown) (unknown) (unknown) (no date) (unknown) (unknown) NO GROWTH AFTER 48 HOURS (units unknown) (unknown) Result panel 1716 (unknown) (no date) (unknown) (unknown) (no value) (units unknown) (unknown) (unknown) (no date) (unknown) (unknown) NO GROWTH AFTER 48 HOURS (units unknown) (unknown) (unknown) (no date) (unknown) (unknown) NO GROWTH AFTER 48 HOURS (units unknown) (unknown) Result panel 1717 (unknown) (no date) (unknown) (unknown) (no value) (units unknown) (unknown) (unknown) (no date) (unknown) (unknown) NO GROWTH AFTER 72 HOURS (units unknown) (unknown) (unknown) (no date) (unknown) (unknown) NO GROWTH AFTER 72 HOURS (units unknown) (unknown) Result panel 1718 (unknown) (no date) (unknown) (unknown) (no value) (units unknown) (unknown) (unknown) (no date) (unknown) (unknown) NO GROWTH AFTER 4 DAYS (units unknown) (unknown) (unknown) (no date) (unknown) (unknown) NO GROWTH AFTER 4 DAYS (units unknown) (unknown) Result panel 1719 (unknown) (no date) (unknown) (unknown) (no value) (units unknown) (unknown) (unknown) (no date) (unknown) (unknown) NO GROWTH AFTER 5 DAYS (units unknown) (unknown) (unknown) (no date) (unknown) (unknown) NO GROWTH AFTER 5 DAYS (units unknown) (unknown) Social History date description facility 2022-08-10 00:00 Smokes tobacco daily (finding) [facility] 2022-08-11 00:00 [facility] [facility] 2022-08-12 00:00 Smokes tobacco daily (finding) [facility] 2022-09-10 00:00 Smokes tobacco daily (finding) [facility] Vital Signs date measurement value units 2022-08-10 00:00 BMI 23.0 kg/m2 2022-08-10 00:00 BP_diastolic 58 mmHg 2022-08-10 00:00 BP_systolic 94 mmHg 2022-08-10 00:00 heart_rate 74 /min 2022-08-10 00:00 height_metric 160.02 cm 2022-08-10 00:00 height_standard 63 in 2022-08-10 00:00 o2_saturation 100 % 2022-08-10 00:00 respiration_rate 15 /min 2022-08-10 00:00 temperature_metric 36.61 C 2022-08-10 00:00 temperature_standard 97.9 F 2022-08-10 00:00 weight_metric 58.96 kg 2022-08-10 00:00 weight_standard 129.98 lb 2022-08-11 00:00 BMI 23.0 kg/m2 2022-08-11 00:00 BMI 23.9 kg/m2 2022-08-11 00:00 BP_diastolic 54 mmHg 2022-08-11 00:00 BP_diastolic 83 mmHg 2022-08-11 00:00 BP_systolic 143 mmHg 2022-08-11 00:00 BP_systolic 95 mmHg 2022-08-11 00:00 heart_rate 80 /min 2022-08-11 00:00 height_metric 160.02 cm 2022-08-11 00:00 height_standard 63 in 2022-08-11 00:00 o2_saturation 97 % 2022-08-11 00:00 respiration_rate 16 /min 2022-08-11 00:00 temperature_metric 36.39 C 2022-08-11 00:00 temperature_metric 36.83 C 2022-08-11 00:00 temperature_standard 97.5 F 2022-08-11 00:00 temperature_standard 98.3 F 2022-08-11 00:00 weight_metric 58.96 kg 2022-08-11 00:00 weight_metric 61.23 kg 2022-08-11 00:00 weight_standard 129.98 lb 2022-08-11 00:00 weight_standard 134.99 lb 2022-08-12 00:00 heart_rate 85 /min 2022-08-12 00:00 height_metric 160.02 cm 2022-08-12 00:00 height_standard 63 in 2022-08-12 00:00 o2_saturation 98 % 2022-08-12 00:00 respiration_rate 16 /min 2022-08-12 00:00 weight_metric 58.4 kg 2022-08-12 00:00 weight_standard 128.75 lb 2022-08-16 00:00 BP_diastolic 81 mmHg 2022-08-16 00:00 BP_systolic 117 mmHg 2022-08-16 00:00 heart_rate 79 /min 2022-08-16 00:00 o2_saturation 99 % 2022-08-16 00:00 respiration_rate 20 /min 2022-08-16 00:00 temperature_metric 37.17 C 2022-08-16 00:00 temperature_standard 98.9 F 2022-09-10 00:00 BMI 23.0 kg/m2 2022-09-10 00:00 BP_diastolic 55 mmHg 2022-09-10 00:00 BP_systolic 94 mmHg 2022-09-10 00:00 heart_rate 116 /min 2022-09-10 00:00 height_metric 160.02 cm 2022-09-10 00:00 height_standard 63 in 2022-09-10 00:00 o2_saturation 100 % 2022-09-10 00:00 respiration_rate 18 /min 2022-09-10 00:00 temperature_metric 36.94 C 2022-09-10 00:00 temperature_standard 98.5 F 2022-09-10 00:00 weight_metric 58.96 kg 2022-09-10 00:00 weight_standard 129.98 lb
[2022-09-15 20:22] LABS: BASOPHILS # (AUTO) 0.1 10^3/uL (0.0-0.1); BASOPHILS % (AUTO) 0.7 %; EOSINOPHILS % (AUTO) 0.1 %; HCT - HEMATOCRIT 36.1 % (37.0-47.0); HGB - HEMOGLOBIN 12.1 g/dL (12.0-16.0); LYMPHOCYTES # (AUTO) 1.9 10^3/uL (1.5-3.5); LYMPHOCYTES % (AUTO) 28.8 %; MEAN CORPUSCULAR HEMOGLOBIN 25.8 pg (27.0-31.0); MEAN CORPUSCULAR HGB CONC 33.5 g/dL (32.0-36.0); MEAN PLATELET VOLUME 8.5 fL (7.9-10.8); MONOCYTES # (AUTO) 0.9 10^3/uL (0.0-1.0); MONOCYTES % (AUTO) 12.9 %; NEUTROPHILS # (AUTO) 3.9 10^3/uL (1.5-6.6); NEUTROPHILS % (AUTO) 57.2 %; PLT - PLATELET COUNT 345 10^3/uL (130-450); RED BLOOD COUNT 4.69 10^6/uL (4.20-5.40); VBG HCO3 28.3 mmol/L (23-28); VBG PH 7.467 (7.31-7.41); VBG PO2 52.5 mmHg (25-47); WHITE BLOOD COUNT 6.7 x10^3/uL (4.8-10.8)
[2022-09-15 20:23] LABS: VBG BASE EXCESS 4.3 mmol/L (-2 - +2); VBG OXYGEN SATURATION 89.5 % (60-80); VBG TOTAL CO2 29.5 mmol/L (24-29)
[2022-09-15] MEDS ORDERED: MORPHINE 10 MG/ML VIAL IVP STA (20:40)
[2022-09-15 20:51] LABS: KETONES, SERUM (ACETEST) SMALL (NEGATIVE)
[2022-09-15 20:59] LABS: BUN - BLOOD UREA NITROGEN < 5 mg/dL (6-20); CALCIUM 8.6 mg/dL (8.5-10.3); CARBON DIOXIDE - CO2 30 mmol/L (21-32); CHLORIDE 87 mmol/L (101-111); CREATININE 0.6 mg/dL (0.4-1.0); GFR - MDRD 119 (>89); GLUCOSE 123 mg/dL (70-100); MAGNESIUM 1.8 mg/dL (1.7-2.8); PHOSPHORUS 2.6 mg/dL (2.5-4.6); SODIUM 132 mmol/L (135-145)
[2022-09-15 21:01] LABS: POTASSIUM 2.1 mmol/L (3.5-5.0)
[2022-09-15] MEDS ORDERED: POTASSIUM CHLOR 10 MEQ/100 ML 10 MEQ/100 ML BAG IV ONE (21:02)
[2022-09-15] MEDS ORDERED: POTASSIUM BICARB 25 MEQ TABLET PO STA (21:02)
[2022-09-15 21:16] LABS: BILIRUBIN,URINE NEGATIVE (NEGATIVE); GLUCOSE, URINE (UA) NEGATIVE (NEGATIVE); KETONES,URINE (UA) >=80 mg/dL (NEGATIVE); LEUKOCYTE ESTERASE, URINE NEGATIVE (NEGATIVE); NITRITE,URINE NEGATIVE (NEGATIVE); OCCULT BLOOD,URINE NEGATIVE (NEGATIVE); PH,URINE 6.5 PH (5.0-7.5); PROTEIN,URINE NEGATIVE (NEGATIVE); UROBILINOGEN,URINE 0.2 (NORMAL) E.U./dL (NORMAL)
[2022-09-15 21:19] LABS: CLARITY,URINE CLEAR (CLEAR); HCG UR QUAL NEGATIVE
--- NOTE | 2022-09-15 21:27 | HISTORY & PHYSICAL EXAMINATION ---
Chief Complaint - Chief Complaint Chief Complaint: Nausea/vomiting History of Present Illness - Admitted From Admitted From:: ER - History Obtained From Records Reviewed: Yes History obtained from: Patient, staff, chart Exam Limitations: H&P was conducted via video remotely, using Access Cart. - History of Present Illness HPI Comment/Other: Patient is in [place]. Physician is in [place]. SHEET METAL SUPERINTENDENT Mehran Pyle is at bedside. 27 yo F with PMH of DM type 1 with Gastropathy and Peripheral Neuropathy on insulin pump, Marijuana use, and multiple admissions for intractable/cyclical N/V and DKA presented to the ER with c/o 4 day h/o nausea/vomiting, abdo pain. Pt used Marijuana on . Later that day, she began to have epigastric pain and nausea/vomiting. Her BS went up to 370s, so she went to [facility]. She was not in DKA and her BS improved in the ER, so she was discharged home. At home, she has continued to have nausea/vomiting, non-bloody and abdo pain. She has been dry-heaving. Abdo pain is epigastric with radiation to her back, intermittent, sharp then dull, nagging pain. Pt has not been able to keep down PO fluids or food x 4 days. Her last BM was 3 days ago: normal. No urinary symptoms. No F/C. No CP/SOB/cough. Her BS have been <150s since . Pt has not used Marijuana since ; she uses Marijuana regularly to help increase her appetite, as she generally has no desire to eat. She has D/W her GI and they have considered prescribing appetite stimulants, but have not done so. Pt has been referred for consideration of Gastric Pacemaker surgery for her Gastroparesis; her first appt is scheduled for December 2022. In the ER, pH 7.467, Na 132, K 2.1, Glc 123, CO2 30. Pt was given IVF, Zofran in the ER. History - Past Medical History Cardiovascular: reports: None Respiratory: reports: None Neuro: reports: Peripheral neuropathy Endocrine/Autoimmune: reports: Type 1 diabetes GI: reports: Other SALES AND SERVICE AGENT: reports: Other : reports: None HEENT: reports: None Psych: reports: Anxiety Musculoskeletal: reports: None Derm: reports: None MRSA Hx?: No - Past Surgical History General: reports: Appendectomy - Family & Social History Family History: Mother: Alive and Well, Father: Alive and Well Family History Comment/Other: Dad is 50 and has no major medical illnesses. Mom is 48 and has no major medical illnesses. Her great grandmother on her father's side had type 2 diabetes. 2 sisters and 1 brother who are healthy without any medical illnesses. No children Living Situation: With spouse/s.o. Social History Notes: She is from [place]. She a man who is in the [employer] and he is stationed here on the [place]. She worked in [employer] when she worked in [place]. 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 Rarely drinks alcohol. No history of substance abuse. No history of tobacco abuse. She occasionally uses marijuana. Has no history of cocaine, heroin, LSD, speed - Substance History Use: Uses substance without health or social issues: Cannabis - POLST Patient has POLST: No POLST Status: Full Code Meds/Allgy - Home Medications Home Medications: Ambulatory Orders Medication Instructions Recorded Confirmed Insulin Lispro [Humalog] 45 - 56 units SUBQ DAILY 08/12/20 03/05/21 Rizatriptan Benzoate [Rizatriptan] 10 mg PO DAILY PRN 12/18/20 03/05/21 Ondansetron Odt [Zofran Odt] 4 mg TL Q6H PRN #10 tablet 03/02/21 03/05/21 Sucralfate [Carafate] 1 gm PO ACHS #60 tablet 03/02/21 03/05/21 Metoclopramide [Reglan] 10 mg PO BID PRN 03/05/21 03/05/21 Sulfamethox/Trimeth 800/160 1 tab PO BID #6 tablet 03/05/21 [Bactrim Ds] Cefdinir 300 mg PO BID #20 cap 03/29/21 Ondansetron Odt [Zofran] 4 mg TL Q6H PRN #10 tablet 03/29/21 Promethazine Supp [Phenergan Supp] 25 mg DE Q6HR PRN #14 supp 03/29/21 LORazepam [Ativan] 1 mg PO BID PRN #8 tablet 11/02/21 Ondansetron Odt [Zofran] 4 mg TL Q6H PRN #10 tablet 11/02/21 Promethazine Supp [Phenergan Supp] 25 mg DE Q6H PRN #5 supp 11/02/21 - Allergies Allergies/Adverse Reactions: Allergies Allergy/AdvReac Type Severity Reaction Status Date / Time ketorolac [From Toradol] Allergy Rash Verified 01/26/22 07:10 Milk Containing Products Allergy Unknown Verified 01/26/22 07:10 (Dairy) [Milk Containing Products] Review of Systems - All Other Systems All Other Systems: reports: Reviewed and negative Exam - Vital Signs Reviewed Vital Signs: Yes Vital Signs: Vital Signs x48h Temp Pulse Resp BP Pulse Ox 09/15/22 18:28 36.2 C L 88 18 129/88 H 100 - Physical Exam General Appearance: positive: No acute distress, Alert Eyes Bilateral: positive: PERRL, No scleral icterus ENT: positive: Dry mucous membranes Respiratory: positive: Other (Access cart stethoscope not working; per ER Provider: CTA B/L) Cardiovascular: positive: Other (Access cart stethoscope not working; per ER Provider: RRR, no murmurs) Abdomen: positive: Other (per ER Provider: non-distended, NT, Soft) Extremities: positive: Full ROM, No pedal edema Neurologic/Psychiatric: positive: Oriented x3, CN's nml (2-12), Mood/affect nml Conclusion/Plan - Problem List (1) Hypokalemia Conclusion/Plan: DM type 1 with Gastropathy and P. Neuropathy on insulin pump Marijuana use H/o multiple admissions for intractable/cyclical N/V and DKA Intractable/Cyclical N/V Epigastric pain with radiation to back; h/o GERD -pH 7.467, Na 132, K 2.1, Glc 123, CO2 30; not in DKA -Pt was given IVF, Zofran, K in the ER. -admit to Obs -continue IVF, anti-emetics, K supplementation -clear liquid diet; advance as tolerated -continue home medications: Reglan, Insulin pump -pt uses Marijuana regularly to help increase her appetite -counseled on Marijuana cessation - consult -D/W pt RE: appetite stimulants and pt would like to try this; Remeron ordered -Protonix ordered -Pt has been referred for consideration of Gastric Pacemaker surgery for her Gastroparesis; her first appt is scheduled for December 2022. -accuchecks, SS Insulin, Hypoglycemic protocol -check Hgba1c VTE Prophylaxis: Lovenox Code Status: Full Code ~Dorinda Davis MD Hospitalist - Lab Results Fish Bones: 09/15/22 20:16 09/15/22 20:40
[2022-09-15] MEDS ORDERED: ACETAMINOPHEN 325 MG TABLET PO PRN (21:41)
[2022-09-15] MEDS ORDERED: SODIUM CHLORIDE FLUSH 0.9% 10 ML SYRINGE IVP PRN (21:41)
[2022-09-15] MEDS ORDERED: PROCHLORPERAZINE 10 MG/2 ML VIAL IVP PRN (21:41)
[2022-09-15] MEDS ORDERED: ONDANSETRON ODT 4 MG TABLET TL PRN (21:41)
[2022-09-15] MEDS ORDERED: RIZATRIPTAN BENZOATE 10 MG PO PRN (21:45)
[2022-09-15] MEDS ORDERED: PROMETHAZINE 25 MG SUPP PR PRN (21:45)
[2022-09-15] MEDS ORDERED: LORazepam 1 MG TABLET PO PRN (21:45)
[2022-09-15] MEDS ORDERED: METOCLOPRAMIDE 10 MG TABLET PO PRN (21:45)
[2022-09-15] MEDS ORDERED: SUCRALFATE 1 GM PO SCH (22:00)
[2022-09-15 22:08] LABS: ESTIMATED AVERAGE GLUCOSE 146 mg/dL (70-100); HEMOGLOBIN A1c% 6.7 % (4.27-6.07)
[2022-09-16] MEDS: POTASSIUM CHLOR 10 MEQ/100 ML 10 MEQ/100 ML BAG IV SCH ×8 (00:48→22:40)
[2022-09-16 02:01] LABS: MUDS CUTOFF CONCENTRATIONS CUTOFF CONC BELOW:
[2022-09-16 02:14] LABS: AMPHETAMINE SCREEN,URINE NEGATIVE (NEGATIVE); BARBITURATE SCREEN,UR NEGATIVE (NEGATIVE); BENZODIAZEPINES SCREEN, URINE NEGATIVE (NEGATIVE); COCAINE SCREEN URINE NEGATIVE (NEGATIVE); METHADONE SCREEN, URINE NEGATIVE (NEGATIVE); METHAMPHETAMINES SCREEN, URINE NEGATIVE (NEGATIVE); OPIATE SCREEN, URINE POSITIVE (NEGATIVE); OXYCODONE SCREEN, URINE NEGATIVE (NEGATIVE); PROPOXYPHENE SCREEN, URINE NEGATIVE (NEGATIVE); THC CANNABINOID SCREEN, URINE POSITIVE (NEGATIVE); TRICYCLIC ANTIDEPRESSANT,URINE NEGATIVE (NEGATIVE)
[2022-09-16] MEDS: SODIUM CHLORIDE FLUSH 0.9% 10 ML SYRINGE IVP SCH ×4 (03:10→23:34)
[2022-09-16 05:31] LABS: BASOPHILS % (AUTO) 0.5 %; EOSINOPHILS % (AUTO) 0.3 %; HCT - HEMATOCRIT 34.7 % (37.0-47.0); HGB - HEMOGLOBIN 11.8 g/dL (12.0-16.0); LYMPHOCYTES # (AUTO) 2.2 10^3/uL (1.5-3.5); LYMPHOCYTES % (AUTO) 35.4 %; MEAN CORPUSCULAR HEMOGLOBIN 26.3 pg (27.0-31.0); MEAN CORPUSCULAR VOLUME 77.5 fL (81.0-99.0); MEAN PLATELET VOLUME 8.4 fL (7.9-10.8); MONOCYTES # (AUTO) 0.8 10^3/uL (0.0-1.0); MONOCYTES % (AUTO) 13.7 %; NEUTROPHILS % (AUTO) 49.8 %; PLT - PLATELET COUNT 311 10^3/uL (130-450); RED BLOOD COUNT 4.48 10^6/uL (4.20-5.40); RED CELL DISTRIBUTION WIDTH 14.8 % (12.0-15.0); WHITE BLOOD COUNT 6.1 x10^3/uL (4.8-10.8)
[2022-09-16 05:50] LABS: BUN - BLOOD UREA NITROGEN < 5 mg/dL (6-20); CALCIUM 8.3 mg/dL (8.5-10.3); CARBON DIOXIDE - CO2 29 mmol/L (21-32); CHLORIDE 93 mmol/L (101-111); CREATININE 0.5 mg/dL (0.4-1.0); GFR - MDRD 147 (>89); GLUCOSE 99 mg/dL (70-100); POTASSIUM 2.6 mmol/L (3.5-5.0); SODIUM 133 mmol/L (135-145)
[2022-09-16] MEDS: LACTATED RINGERS 1,000 ML IV SCH ×2 (06:55→17:46)
[2022-09-16] MEDS ORDERED: PANTOPRAZOLE 40 MG TABLET PO SCH (07:00)
[2022-09-16] MEDS ORDERED: SUCRALFATE 1 GM/10 ML UDC PO SCH (07:00)
[2022-09-16] MEDS: ENOXAPARIN 40 MG/0.4 ML SYRINGE SUBQ SCH (08:55)
[2022-09-16] MEDS ORDERED: NON FORMULARY MED (Insulin Lispro 100 UNIT/ML Ml) SUBQ SCH (09:00)
[2022-09-16] MEDS: INSULIN LISPRO 300 UNIT/3 ML PEN SUBQ SCH ×4 (09:18→22:17)
[2022-09-16] MEDS: METOCLOPRAMIDE 10 MG/2 ML VIAL IVP SCH ×3 (11:16→23:33)
[2022-09-16] MEDS: LIDOCAINE PATCH 5% TOP PRN (11:20)
--- NOTE | 2022-09-16 11:52 | PHARMACY PROGRESS NOTE ---
- Best Possible Medication History Admit Date and Time: 09/16/22 0858 Processed by: Pharmacy Medication History completed: Yes Patient Interview: Completed Secondary Source(s): Pharmacy records, Insurance records As the person ultimately responsible for medication therapy, providers are able to order a medication from an existing home medication list in [facility] via the "Reconcile Routine" prior to Confirmation of that medication by production support developer. Such practice is discouraged except when the physician, in their clinical judgment, deems that a medical need exists for a medication without regard to previous use.
[2022-09-16] MEDS: INSULIN LISPRO 100 UNIT/1 ML 10 ML MDV SUBQ SCH (12:03)
[2022-09-16] MEDS: LORazepam 2 MG/ML VIAL IVP SCH ×2 (12:12→20:39)
--- NOTE | 2022-09-16 14:22 | PROVIDER PROGRESS NOTE ---
Assessment/Plan - Problem List (1) Hypokalemia Assessment/Plan: This is likely from potassium losses in vomiting and also inadequate intake. She has been given potassium replacements. All labs were reviewed. Her admission potassium of 2 has only increased to 2.6 today. Plan: Since she is still retching and vomiting, she is not ready for discharge and has need for more potassium replacement, I will admit this patient to inpatient status from observation status Recheck her potassium this afternoon. Continue to replace potassium with IV K riders (2) Ventr bigeminy Telemetry strip was reviewed, brought to me by RN. It shows ventricular bigeminy. This is likely caused by her persistently low potassium level Plan: We will replace her low K Continue to monitor on telemetry Will also check her Mg (3) Intractable N/V This is probably a combination of her diabetic gastroparesis and having recently used marijuana, despite having been recommended in the past that she not use this. Labs showed a pH 7.467, Na 132, K 2.1, Gluc 123, CO2 30; so she was not in DKA Plan: Cont a clear liquid diet order; advance eventually as tolerated Will make the ED Reglan IV not p.o. and make it scheduled We will continue to give as needed IV Zofran and as needed IV Compazine, straddling the doses We will continue to give IV fluids We will continue the empiric Protonix Pt has been referred for consideration of Gastric Pacemaker surgery for her Gastroparesis; her first appt is scheduled for December 2022. 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 She claims she uses it to increase her appetite. The admitting doctor then offered her Remeron which she has agreed to try unfortunately she is not keeping anything down so the Remeron has to be on hold (6) LBP I will order lidocaine patch - Current Meds Current Meds: Current Medications Generic Name Dose Route Start Last Admin Trade Name Freq PRN Reason Stop Dose Admin Enoxaparin Sodium 40 mg 09/16/22 09:00 09/16/22 08:55 Enoxaparin 40 Mg/0.4 Ml Syringe SUBQ 40 mg DAILY LETICIA Administration Lactated Ringer's 1,000 mls @ 100 mls/hr 09/15/22 22:00 09/16/22 06:55 Lr IV 100 mls/hr .Q10H LETICIA Administration Insulin Human Lispro 1 - 5 unit 09/16/22 08:00 09/16/22 12:02 Insulin Lispro 300 Unit/3 Ml Pen SUBQ Not Given 0800,1200,1700,2100 [facility] Protocol Insulin Human Lispro 45 - 56 unit 09/16/22 12:00 09/16/22 12:03 Insulin Lispro 100 Unit/1 Ml 10 Ml Mdv SUBQ Not Given DAILY LETICIA Lidocaine 1 patch 09/16/22 11:04 09/16/22 11:20 Lidocaine Patch 5% TOP 1 patch DAILY PRN Administration Moderate Pain (Level 4-6) Lorazepam 0.5 mg 09/16/22 12:00 09/16/22 12:12 Lorazepam 2 Mg/Ml Vial IVP 0.5 mg BID LETICIA Administration Metoclopramide HCl 5 mg 09/16/22 12:00 09/16/22 11:16 Metoclopramide 10 Mg/2 Ml Vial IVP 5 mg Q6HR LETICIA Administration Prochlorperazine Edisylate 10 mg 09/15/22 21:41 09/16/22 13:53 Prochlorperazine 10 Mg/2 Ml Vial IVP 10 mg Q6HR PRN Administration Nausea / Vomiting Sodium Chloride 10 ml 09/16/22 01:00 09/16/22 08:09 Sodium Chloride Flush 0.9% 10 Ml Syringe IVP Not Given 0100,0900,1700 LETICIA - Lab Result Fish Bone Diagrams: 09/16/22 05:16 09/17/22 05:48 - Additional Planning My Orders: My Active Orders 09/16/22 11:04 Lidocaine Patch 5% [Lidoderm Patch] 1 patch TOP DAILY PRN 09/16/22 12:00 LORazepam INJ [Ativan Inj (Vial)] 0.5 mg IVP BID Metoclopramide Inj [Reglan Inj] 5 mg IVP Q6HR 09/16/22 14:00 Potassium Chlor 10 Meq/100 ml [Potassium Chloride] 10 meq in 100 ml IV Q1H 09/17/22 07:00 Pantoprazole [Protonix] 40 mg IV QDAC Subjective - Subjective Patient Reports: Nausea Nursing Reports: Vomitting (She vomited 4 times in an hour this morning while being interviewed by pharmacist) Objective Vital Signs: Vital Signs - 24 hr 09/15/22 09/15/22 09/15/22 18:28 20:34 22:22 Temperature 36.2 C L 37.0 C Heart Rate 88 86 Heart Rate [ 74 Monitoring electrodes] Respiratory 18 13 16 Rate Blood Pressure 129/88 H 130/79 Blood Pressure 118/83 H [Right Brachial artery] O2 Saturation 100 100 100 09/16/22 09/16/22 09/16/22 02:48 05:24 08:14 Temperature 36.3 C L 36.6 C 35.9 C L Heart Rate Heart Rate [ 96 107 H 62 Monitoring electrodes] Respiratory 17 18 16 Rate Blood Pressure Blood Pressure 129/87 H 143/94 H 127/76 [Right Brachial artery] O2 Saturation 100 100 100 09/16/22 12:19 Temperature 36.4 C L Heart Rate Heart Rate [ 80 Monitoring electrodes] Respiratory 16 Rate Blood Pressure Blood Pressure 125/76 [Right Brachial artery] O2 Saturation 100 Oxygen O2 Source Room air I&O (Last 24 Hrs): Intake and Output Totals x24h 09/14/22 09/15/22 09/16/22 23:59 23:59 23:59 Intake Total 1100 2800 Output Total 800 Balance 1100 2000 General: Moderate distress HEENT: Mucous membr. moist/pink Neck: Supple Neuro: Alert Cardiovascular: Regular rate Respiratory: No respiratory distress Abdomen: Other (No guarding or rebound, diminished bowel sound) Extremities: No clubbing, No edema - Results Results: Laboratory Results WBC 6.1 x10^3/uL (4.8-10.8) 09/16/22 05:16 RBC 4.48 10^6/uL (4.20-5.40) 09/16/22 05:16 Hgb 11.8 g/dL (12.0-16.0) L 09/16/22 05:16 Hct 34.7 % (37.0-47.0) L 09/16/22 05:16 MCV 77.5 fL (81.0-99.0) L 09/16/22 05:16 MCH 26.3 pg (27.0-31.0) L 09/16/22 05:16 MCHC 34.0 g/dL (32.0-36.0) 09/16/22 05:16 RDW 14.8 % (12.0-15.0) 09/16/22 05:16 Plt Count 311 10^3/uL (130-450) 09/16/22 05:16 MPV 8.4 fL (7.9-10.8) 09/16/22 05:16 Neut # (Auto) 3.0 10^3/uL (1.5-6.6) 09/16/22 05:16 Lymph # (Auto) 2.2 10^3/uL (1.5-3.5) 09/16/22 05:16 [place] # (Auto) 0.8 10^3/uL (0.0-1.0) 09/16/22 05:16 Eos # (Auto) 0.0 10^3/uL (0.0-0.7) 09/16/22 05:16 Baso # (Auto) 0.0 10^3/uL (0.0-0.1) 09/16/22 05:16 Absolute Nucleated RBC 0.00 x10^3/uL 09/16/22 05:16 Nucleated RBC % 0.0 /100WBC 09/16/22 05:16 VBG pH 7.467 (7.31-7.41) H 09/15/22 20:16 VBG pCO2 40.0 mmHg (41-51) L 09/15/22 20:16 VBG pO2 52.5 mmHg (25-47) H 09/15/22 20:16 VBG HCO3 28.3 mmol/L (23-28) H 09/15/22 20:16 VBG Total CO2 29.5 mmol/L (24-29) H 09/15/22 20:16 VBG O2 Saturation 89.5 % (60-80) H 09/15/22 20:16 VBG Base Excess 4.3 mmol/L (-2 - +2) H 09/15/22 20:16 Sodium 133 mmol/L (135-145) L 09/16/22 05:16 Potassium 2.6 mmol/L (3.5-5.0) L 09/16/22 11:47 Chloride 93 mmol/L (101-111) L 09/16/22 05:16 Carbon Dioxide 29 mmol/L (21-32) 09/16/22 05:16 Anion Gap 11.0 (6-13) 09/16/22 05:16 BUN < 5 mg/dL (6-20) L 09/16/22 05:16 Creatinine 0.5 mg/dL (0.4-1.0) 09/16/22 05:16 Estimated GFR (MDRD) 147 (>89) 09/16/22 05:16 Glucose 99 mg/dL (70-100) 09/16/22 05:16 POC Whole Bld Glucose 97 mg/dL (70 - 100) 09/16/22 11:14 Estimat Average Glucose 146 mg/dL (70-100) H 09/15/22 20:16 Hemoglobin A1c % 6.7 % (4.27-6.07) H 09/15/22 20:16 Calcium 8.3 mg/dL (8.5-10.3) L 09/16/22 05:16 Phosphorus 2.6 mg/dL (2.5-4.6) 09/15/22 20:40 Magnesium 1.8 mg/dL (1.7-2.8) 09/15/22 20:40 Urine Color YELLOW 09/15/22 21:09 Urine Clarity CLEAR (CLEAR) 09/15/22 21:09 Urine pH 6.5 PH (5.0-7.5) 09/15/22 21:09 Ur Specific [place] <=1.005 (1.002-1.030) 09/15/22 21:09 Urine Protein NEGATIVE mg/dL (NEGATIVE) 09/15/22 21:09 Urine Glucose (UA) NEGATIVE mg/dL (NEGATIVE) 09/15/22 21:09 Urine Ketones >=80 mg/dL (NEGATIVE) H 09/15/22 21:09 Urine Occult Blood NEGATIVE (NEGATIVE) 09/15/22 21:09 Urine Nitrite NEGATIVE (NEGATIVE) 09/15/22 21:09 Urine Bilirubin NEGATIVE (NEGATIVE) 09/15/22 21:09 Urine Urobilinogen 0.2 (NORMAL) E.U./dL (NORMAL) 09/15/22 21:09 Ur Leukocyte Esterase NEGATIVE (NEGATIVE) 09/15/22 21:09 Ur Microscopic Review NOT INDICATED 09/15/22 21:09 Urine Culture Comments NOT INDICATED 09/15/22 21:09 Urine HCG, Qual NEGATIVE 09/15/22 21:09 Urine Opiates Screen POSITIVE (NEGATIVE) H 09/15/22 21:09 Ur Oxycodone Screen NEGATIVE (NEGATIVE) 09/15/22 21:09 Urine Methadone Screen NEGATIVE (NEGATIVE) 09/15/22 21:09 Ur Propoxyphene Screen NEGATIVE (NEGATIVE) 09/15/22 21:09 Ur Barbiturates Screen NEGATIVE (NEGATIVE) 09/15/22 21:09 Ur Tricyclics Screen NEGATIVE (NEGATIVE) 09/15/22 21:09 Ur Phencyclidine Scrn NEGATIVE (NEGATIVE) 09/15/22 21:09 Ur Amphetamine Screen NEGATIVE (NEGATIVE) 09/15/22 21:09 U Methamphetamines Scrn NEGATIVE (NEGATIVE) 09/15/22 21:09 U Benzodiazepines Scrn NEGATIVE (NEGATIVE) 09/15/22 21:09 Urine Cocaine Screen NEGATIVE (NEGATIVE) 09/15/22 21:09 U Cannabinoids Screen POSITIVE (NEGATIVE) H 09/15/22 21:09 Serum Ketones SMALL (NEGATIVE) H 09/15/22 20:40
[2022-09-16] MEDS ORDERED: DEXTROSE 40% GEL 37.5 GM TUBE PO ONE ×2 (18:08)
[2022-09-16] MEDS ORDERED: DEXTROSE 50% ABBOJECT 25 GM/50 ML SYRINGE IVP ONE (18:08)
[2022-09-16] MEDS ORDERED: DEXTROSE 5% 1,000 ML IV SCH (19:00)
[2022-09-16] MEDS ORDERED: MIRTAZAPINE 15 MG TABLET PO SCH (21:00)
[2022-09-17] MEDS ORDERED: diphenhydrAMINE 25 MG CAPSULE PO PRN (02:56)
--- NOTE | 2022-09-17 03:09 | PROVIDER PROGRESS NOTE ---
Immersion Metal Cleaner Note - Immersion Metal Cleaner Note Immersion Metal Cleaner Note: per rn - "27F full code admitted for Nausea/vomiting. Patient currently complaining of itchiness on Telemetry leads, states has had itchiness allergic reactions to them before. Tolerating PO clear liquid well with no nausea. Patient is requesting Benadryl if possible to assist with itchiness since telemetry needs to stay on for now." benadryl 25 mg po daily prn itching in setting of above ordered
[2022-09-17] MEDS: LACTATED RINGERS 1,000 ML IV SCH ×3 (03:24→14:32)
[2022-09-17 06:04] LABS: BUN - BLOOD UREA NITROGEN < 5 mg/dL (6-20); CALCIUM 8.5 mg/dL (8.5-10.3); CARBON DIOXIDE - CO2 33 mmol/L (21-32); CHLORIDE 94 mmol/L (101-111); CREATININE 0.5 mg/dL (0.4-1.0); GFR - MDRD 147 (>89); GLUCOSE 137 mg/dL (70-100); SODIUM 136 mmol/L (135-145)
[2022-09-17 06:05] LABS: POTASSIUM 2.5 mmol/L (3.5-5.0)
[2022-09-17] MEDS: PANTOPRAZOLE 40 MG VIAL IV SCH (06:32)
[2022-09-17] MEDS: METOCLOPRAMIDE 10 MG/2 ML VIAL IVP SCH ×4 (06:33→23:26)
[2022-09-17] MEDS: POTASSIUM CHLOR 10 MEQ/100 ML 10 MEQ/100 ML BAG IV SCH ×6 (06:33→19:47)
[2022-09-17] MEDS: INSULIN LISPRO 300 UNIT/3 ML PEN SUBQ SCH ×2 (08:37→11:26)
[2022-09-17] MEDS: LORazepam 2 MG/ML VIAL IVP SCH ×2 (08:39→22:20)
[2022-09-17] MEDS: INSULIN LISPRO 100 UNIT/1 ML 10 ML MDV SUBQ SCH (08:40)
[2022-09-17] MEDS: SODIUM CHLORIDE FLUSH 0.9% 10 ML SYRINGE IVP SCH ×3 (08:41→23:28)
[2022-09-17] MEDS: ENOXAPARIN 40 MG/0.4 ML SYRINGE SUBQ SCH (08:41)
--- NOTE | 2022-09-17 12:17 | PROVIDER PROGRESS NOTE ---
Subjective - Prog Note Date Prog Note Date: 09/17/22 Prog Note Time: 14:00 - Subjective Pt reports feeling: Improved Subjective: Pt reports feeling better. She believes she is well enough to go home and care for herself. She is eager to return home to her pets. Today she ate 100% of her breakfast. She asked for seconds of broth and jello. She requested to upgrade from a liquid diet. She ate 75% of her mashed potato lunch. She is now requesting more solid food. Pt states she has been ambulating around the room and to the bathroom without any difficulty. She endorses fatigue. She denies general pain, abdominal pain, nausea, vomit, diarrhea, weakness, chest pain, palpitations, peripheral neuropathy. Current Medications - Current Medications Current Medications: Active Medications Diphenhydramine HCl (Diphenhydramine 25 Mg Capsule) 25 mg PO DAILY PRN PRN Reason: ITCHING Last Admin: 09/17/22 03:12 Dose: 25 mg Enoxaparin Sodium (Enoxaparin 40 Mg/0.4 Ml Syringe) 40 mg SUBQ DAILY COUNTS INCLUDE 234 BEDS AT THE [facility] Last Admin: 09/17/22 08:41 Dose: Not Given Lactated Ringer's (Lr) 1,000 mls @ 100 mls/hr IV .Q10H COUNTS INCLUDE 234 BEDS AT THE [facility] Last Admin: 09/17/22 03:24 Dose: 100 mls/hr Potassium Chloride (Potassium Chloride) 10 meq in 100 mls @ 100 mls/hr IV Q1H COUNTS INCLUDE 234 BEDS AT THE [facility]; Protocol Stop: 09/17/22 12:59 Last Admin: 09/17/22 11:33 Dose: 50 mls/hr Insulin Human Lispro (Insulin Lispro 300 Unit/3 Ml Pen) 1 - 5 unit SUBQ 0800,1200,1700,2100 COUNTS INCLUDE 234 BEDS AT THE [facility]; Protocol Last Admin: 09/17/22 11:26 Dose: 3.89 unit Insulin Human Lispro (Insulin Lispro 100 Unit/1 Ml 10 Ml Mdv) 45 - 56 unit SUBQ DAILY COUNTS INCLUDE 234 BEDS AT THE [facility] Last Admin: 09/17/22 08:40 Dose: Not Given Lidocaine (Lidocaine Patch 5%) 1 patch TOP DAILY PRN PRN Reason: Moderate Pain (Level 4-6) Last Admin: 09/16/22 11:20 Dose: 1 patch Lorazepam (Lorazepam 2 Mg/Ml Vial) 0.5 mg IVP BID COUNTS INCLUDE 234 BEDS AT THE [facility] Last Admin: 09/17/22 08:39 Dose: 0.5 mg Metoclopramide HCl (Metoclopramide 10 Mg/2 Ml Vial) 5 mg IVP Q6HR COUNTS INCLUDE 234 BEDS AT THE [facility] Last Admin: 09/17/22 11:26 Dose: 5 mg Mirtazapine (Mirtazapine 15 Mg Tablet) 15 mg PO QPM COUNTS INCLUDE 234 BEDS AT THE [facility] Ondansetron HCl (Ondansetron 4 Mg/2 Ml Vial) 4 mg IVP Q6HR PRN PRN Reason: Nausea / Vomiting Pantoprazole Sodium (Pantoprazole 40 Mg Vial) 40 mg IV QDAC COUNTS INCLUDE 234 BEDS AT THE [facility] Last Admin: 09/17/22 06:32 Dose: 40 mg Prochlorperazine Edisylate (Prochlorperazine 10 Mg/2 Ml Vial) 10 mg IVP Q6HR PRN PRN Reason: Nausea / Vomiting Last Admin: 09/16/22 13:53 Dose: 10 mg Promethazine HCl (Promethazine 25 Mg Supp) 25 mg [place] Q6H PRN PRN Reason: Nausea / Vomiting Sodium Chloride (Sodium Chloride Flush 0.9% 10 Ml Syringe) 10 ml IVP PRN PRN PRN Reason: NEEDED PER PROVIDER ORDERS Sodium Chloride (Sodium Chloride Flush 0.9% 10 Ml Syringe) 10 ml IVP 0100,0900,1700 COUNTS INCLUDE 234 BEDS AT THE [facility] Last Admin: 09/17/22 08:41 Dose: 10 ml Insulin Lispro [Humalog] 52 - 56 units SUBQ DAILY 08/12/20 Metoclopramide [Reglan] 5 mg PO 1-2XD 09/16/22 Objective - Vital Signs/Intake & Output Vital Signs: Vital Signs x48h Temp Pulse Resp BP Pulse Ox 09/17/22 11:12 36.4 C L 92 20 124/85 H 100 09/17/22 07:25 36.6 C 77 18 123/83 H 100 09/17/22 04:17 36.8 C 82 20 125/85 H 100 Intake & Output: Intake & Output 09/14/22 09/15/22 09/16/22 09/17/22 23:59 23:59 23:59 23:59 Intake Total 1100 6085.000 3033.333 Output Total 1100 Balance 1100 4985.000 3033.333 - Objective General Appearance: positive: No acute distress Eyes Bilateral: positive: Normal inspection, EOMI ENT: positive: ENT inspection nml, No signs of dehydration Neck: positive: Nml inspection, No JVD, Trachea midline Respiratory: positive: Chest non-tender, No respiratory distress, Breath sounds nml Cardiovascular: positive: Regular rate & rhythm, No murmur, No gallop Peripheral Pulses: 2+ Radial (R), 2+ Radial (L) Abdomen: positive: Non-tender, No organomegaly, Nml bowel sounds, No distention Back: positive: Nml inspection Skin: positive: Color nml, No rash, Warm Extremities: positive: Non-tender, Full ROM, Nml appearance Neurologic/Psychiatric: positive: Oriented x3, CN's nml (2-12), Motor nml, Sensation nml - Lab Results Fish Bones: 09/16/22 05:16 09/17/22 14:20 Other Labs: Lab Results x24hrs 09/17/22 09/17/22 09/17/22 Range/Units 11:01 07:21 05:48 Sodium (135-145) mmol/L Potassium (3.5-5.0) mmol/L Chloride (101-111) mmol/L Carbon Dioxide (21-32) mmol/L Anion Gap (6-13) BUN (6-20) mg/dL Creatinine (0.4-1.0) mg/dL Estimated GFR (MDRD) (>89) Glucose (70-100) mg/dL POC Whole Bld Glucose 279 H 134 H (70 - 100) mg/dL Calcium (8.5-10.3) mg/dL Magnesium 1.8 (1.7-2.8) mg/dL 09/17/22 09/16/22 09/16/22 Range/Units 05:48 21:05 17:07 Sodium 136 (135-145) mmol/L Potassium 2.5 L* (3.5-5.0) mmol/L Chloride 94 L (101-111) mmol/L Carbon Dioxide 33 H (21-32) mmol/L Anion Gap 9.0 (6-13) BUN < 5 L (6-20) mg/dL Creatinine 0.5 (0.4-1.0) mg/dL Estimated GFR (MDRD) 147 (>89) Glucose 137 H (70-100) mg/dL POC Whole Bld Glucose 110 H 106 H (70 - 100) mg/dL Calcium 8.5 (8.5-10.3) mg/dL Magnesium (1.7-2.8) mg/dL - Diagnostic Imaging Diagnostic Imaging Results: positive: Final report reviewed ABX Reporting Has patient been on IV antibiotics over the past 48 hours?: No Sepsis Event Note (H) - Evaluation Current Stage of Sepsis: Ruled out Assessment/Plan - Problem List (1) Hypokalemia Impression: This is likely from potassium losses in vomiting and also inadequate intake. She has been given potassium replacements. All labs were reviewed. Her admission potassium of 2 has only increased to 2.6. 09/17: Potassium level increased from 2.5 this morning to 2.9 this afternoon. Her retching and vomiting have resolved. Pt expressed that she does not want to stay another night. It was explained to her that her potassium is not yet replenished, and she must be able to hydrate and feed herself w/o vomiting before discharge. Plan: Recheck potassium at 9 pm tonight. Continue IV K-rider. Pt will likely discharge tomorrow after breakfast. (2) Ventricular bigeminy Impression: Telemetry strip was reviewed, brought to me by RN. It shows ventricular bigeminy. This is likely caused by her persistently low potassium level. 09/17: Last night pt complained of itchiness from the leads on her skin. She was given Benadryl for relief. Plan: Discontinue telemetry. Her potassium is being aggressively replenished, and therefore monitoring is no longer necessary as she should be improving. Benadryl PRN is the itching persists. (3) Intractable nausea and vomiting Impression: This is probably a combination of her diabetic gastroparesis and having recently used marijuana, despite having been recommended in the past that she not use this. Labs showed a pH 7.467, Na 132, K 2.1, Gluc 123, CO2 30; so she was not in DKA 09/17: Pt report feeling much better today. She is not experiencing any n/v. She is tolerating reglan and zofran well. She reports feeling hunger overnight, and this morning asked for seconds of her breakfast (broth and jello). She tried pureed lunch today, which was tolerated well. She would like more solid foods for lunch. Nursing reported pt has had 3000+ cc of water. Plan: Advance to mechanical soft diet and monitor tolerance Start Reglan IV, scheduled Continue PRN IV Zofran and IV Compazine Promote oral intake of other liquids (chicken broth, juice, electrolyte drinks) IV fluids were changed from lactated ringers 100 cc to normal saline 60 cc Continue the empiric Protonix Pt has been referred for consideration of Gastric Pacemaker surgery for her Gastroparesis; her first appt is scheduled for December 2022. (4) Type 1 diabetes mellitus with diabetic gastropathy Impression: 09/17: Blood sugars today were 134 and 279 prior to meals. She denies abdominal discomfort, neuropathy, or hypoglycemic symptoms. Plan: Accuchecks, SS Insulin, Hypoglycemic protocol We will continue her IV pump but also give sliding scale insulin for additional coverage (5) Marijuana use Impression: It has been recommended in the past that she not use this. She claims she uses it to increase her appetite. The admitting doctor then offered her Remeron which she has agreed to try unfortunately she is not keeping anything down so the Remeron has to be on hold. 09/17: Her vomiting episodes have ceased. PLAN: Start remeron for appetite. Glaze Grinder pt on ceasing marijuana use, as it causes cyclic vomiting. She expressed understanding. (6) Anxiety Impression: Pt is on a scheduled ativan. On a separate admission, pt had increased anxiety because she did not want to here. She was observed to be crying in her room. PLAN: Give ativan 0.5 mg PO once. Reassure patient about her situation. (7) Low back pain Impression: 09/17: Pt reports no pain today.
[2022-09-17 14:57] LABS: MAGNESIUM 1.7 mg/dL (1.7-2.8); POTASSIUM 2.9 mmol/L (3.5-5.0)
[2022-09-17] MEDS: ONDANSETRON 4 MG/2 ML VIAL IVP PRN ×2 (15:00→22:37)
[2022-09-17] MEDS: SODIUM CHLORIDE 0.9% 1,000 ML IV SCH (16:11)
[2022-09-17] MEDS ORDERED: LORazepam 0.5 MG TABLET PO STA (17:05)
[2022-09-17] MEDS ORDERED: POTASSIUM CHLOR 10 MEQ/100 ML 10 MEQ/100 ML BAG IV SCH (19:00)
[2022-09-17] MEDS: MIRTAZAPINE 15 MG TABLET PO SCH (22:20)
[2022-09-17] MEDS: ACETAMINOPHEN 325 MG TABLET PO PRN (23:39)
[2022-09-18] MEDS: ONDANSETRON 4 MG/2 ML VIAL IVP PRN (04:46)
[2022-09-18] MEDS: ACETAMINOPHEN 325 MG TABLET PO PRN ×2 (04:51→15:41)
[2022-09-18] MEDS: METOCLOPRAMIDE 10 MG/2 ML VIAL IVP SCH ×4 (05:23→23:44)
[2022-09-18 05:40] LABS: HCT - HEMATOCRIT 37.1 % (37.0-47.0); HGB - HEMOGLOBIN 12.2 g/dL (12.0-16.0); MEAN CORPUSCULAR HEMOGLOBIN 25.8 pg (27.0-31.0); MEAN CORPUSCULAR HGB CONC 32.9 g/dL (32.0-36.0); MEAN CORPUSCULAR VOLUME 78.4 fL (81.0-99.0); MEAN PLATELET VOLUME 8.5 fL (7.9-10.8); RED BLOOD COUNT 4.73 10^6/uL (4.20-5.40); RED CELL DISTRIBUTION WIDTH 15.2 % (12.0-15.0); WHITE BLOOD COUNT 7.4 x10^3/uL (4.8-10.8)
[2022-09-18 06:02] LABS: % IRON SATURATION 5 % (20-50); ALBUMIN 4.1 g/dL (3.2-5.5); ALBUMIN/GLOBULIN RATIO 1.6 (1.0-2.2); ALKALINE PHOSPHATASE 71 IU/L (42-121); ALT ALANINE AMINOTRANSFERASE 55 IU/L (10-60); AST ASPARTATE AMINOTRANSFERASE 45 IU/L (10-42); BILIRUBIN,TOTAL 0.7 mg/dL (0.2-1.0); BUN - BLOOD UREA NITROGEN < 5 mg/dL (6-20); CALCIUM 8.9 mg/dL (8.5-10.3); CARBON DIOXIDE - CO2 32 mmol/L (21-32); CHLORIDE 95 mmol/L (101-111); CREATININE 0.7 mg/dL (0.4-1.0); GFR - MDRD 100 (>89); GLUCOSE 168 mg/dL (70-100); IRON 19 ug/dL (28-170); MAGNESIUM 1.8 mg/dL (1.7-2.8); POTASSIUM 2.7 mmol/L (3.5-5.0); SODIUM 135 mmol/L (135-145); TOTAL IRON BINDING CAPACITY 365 ug/dL (250-450); TOTAL PROTEIN 6.6 g/dL (6.7-8.2); TRANSFERRIN 261 mg/dL (192-382)
[2022-09-18] MEDS: PANTOPRAZOLE 40 MG VIAL IV SCH (06:43)
[2022-09-18] MEDS: LIDOCAINE PATCH 5% TOP PRN (07:37)
[2022-09-18 08:02] LABS: VBG BASE EXCESS 8.2 mmol/L (-2 - +2); VBG HCO3 32.4 mmol/L (23-28); VBG PCO2 43.3 mmHg (41-51); VBG PH 7.492 (7.31-7.41); VBG PO2 24.7 mmHg (25-47); VBG TOTAL CO2 33.7 mmol/L (24-29)
--- NOTE | 2022-09-18 08:12 | PROVIDER PROGRESS NOTE ---
Subjective - Prog Note Date Prog Note Date: 09/18/22 Prog Note Time: 08:11 - Subjective Pt reports feeling: Improved Subjective: Patient had 2 episodes of vomiting at 0400 and 0430 am. She was given zofran by RN. This morning she reports feeling better. She states the nausea is positional, such that when she sits up in bed she feels nauseas. Today she has her on speaker phone, and they are asking whether she can be discharged home. They are concerned about their pets at home, who were previously watched by her sister, but now she is not available for a few days. They would like to switch to PO potassium in order to be discharged today. I explained to them that there is a new concern for DKA, and that we have ordered new labs for this. She also needs potassium replacement since her levels are still very low. Pt shares she has been monitoring her insulin pump, and even changed to a new infusion set and dexacom. She confirms verbally understanding, but is still hopeful she can be sent home today. Current Medications - Current Medications Current Medications: Active Medications Acetaminophen (Acetaminophen 325 Mg Tablet) 650 mg PO Q4HR PRN PRN Reason: Pain or Fever > 38C (100.4F) Last Admin: 09/18/22 04:51 Dose: 650 mg Diphenhydramine HCl (Diphenhydramine 25 Mg Capsule) 25 mg PO DAILY PRN PRN Reason: ITCHING Last Admin: 09/17/22 03:12 Dose: 25 mg Enoxaparin Sodium (Enoxaparin 40 Mg/0.4 Ml Syringe) 40 mg SUBQ DAILY [facility] Last Admin: 09/17/22 08:41 Dose: Not Given Sodium Chloride (Normal Saline 0.9%) 1,000 mls @ 60 mls/hr IV .[id number] [facility]IC[facility] Last Admin: 09/17/22 16:11 Dose: 60 mls/hr Potassium Chloride (Potassium Chloride) 10 meq in 100 mls @ 100 mls/hr IV Q1H [facility] Stop: 09/18/22 13:59 Insulin Human Lispro (Insulin Lispro 100 Unit/1 Ml 10 Ml Mdv) 45 - 56 unit SUBQ DAILY [facility] Last Admin: 09/17/22 08:40 Dose: Not Given Lidocaine (Lidocaine Patch 5%) 1 patch TOP DAILY PRN PRN Reason: Moderate Pain (Level 4-6) Last Admin: 09/18/22 07:37 Dose: 1 patch Lorazepam (Lorazepam 2 Mg/Ml Vial) 0.5 mg IVP BID [facility] Last Admin: 09/17/22 22:20 Dose: 0.5 mg Metoclopramide HCl (Metoclopramide 10 Mg/2 Ml Vial) 5 mg IVP Q6HR [facility] Last Admin: 09/18/22 05:23 Dose: 5 mg Mirtazapine (Mirtazapine 15 Mg Tablet) 15 mg PO QPM [facility] Last Admin: 09/17/22 22:20 Dose: 15 mg Ondansetron HCl (Ondansetron 4 Mg/2 Ml Vial) 4 mg IVP Q6HR PRN PRN Reason: Nausea / Vomiting Last Admin: 09/18/22 04:46 Dose: 4 mg Pantoprazole Sodium (Pantoprazole 40 Mg Vial) 40 mg IV QDAC [facility] Last Admin: 09/18/22 06:43 Dose: 40 mg Prochlorperazine Edisylate (Prochlorperazine 10 Mg/2 Ml Vial) 10 mg IVP Q6HR PRN PRN Reason: Nausea / Vomiting Last Admin: 09/16/22 13:53 Dose: 10 mg Promethazine HCl (Promethazine 25 Mg Supp) 25 mg [place] Q6H PRN PRN Reason: Nausea / Vomiting Sodium Chloride (Sodium Chloride Flush 0.9% 10 Ml Syringe) 10 ml IVP PRN PRN PRN Reason: NEEDED PER PROVIDER ORDERS Sodium Chloride (Sodium Chloride Flush 0.9% 10 Ml Syringe) 10 ml IVP 0100,0900,1700 [facility] Last Admin: 09/17/22 23:28 Dose: 10 ml Insulin Lispro [Humalog] 52 - 56 units SUBQ DAILY 08/12/20 Metoclopramide [Reglan] 5 mg PO 1-2XD 09/16/22 Objective - Vital Signs/Intake & Output Vital Signs: Vital Signs x48h Temp Pulse Resp BP Pulse Ox 09/18/22 04:18 36.7 C 93 17 114/80 100 Intake & Output: Intake & Output 09/15/22 09/16/22 09/17/22 09/18/22 23:59 23:59 23:59 23:59 Intake Total 1100 6085.000 7466.000 1500 Output Total 1100 650 Balance 1100 4985.000 7466.000 850 - Objective General Appearance: positive: No acute distress, Alert Eyes Bilateral: positive: Normal inspection, EOMI ENT: positive: ENT inspection nml Neck: positive: Nml inspection, Trachea midline. negative: Stiff neck Respiratory: positive: Chest non-tender, No respiratory distress, Breath sounds nml Cardiovascular: positive: Regular rate & rhythm, No murmur, No gallop Abdomen: positive: Non-tender, No organomegaly, Nml bowel sounds, No distention Back: positive: Nml inspection Skin: positive: Color nml, Warm Extremities: positive: Non-tender, Full ROM Neurologic/Psychiatric: positive: Oriented x3, CN's nml (2-12), Motor nml, Sensation nml, Mood/affect nml - Lab Results Fish Bones: 09/18/22 05:24 09/18/22 05:24 Other Labs: Lab Results x24hrs 09/18/22 09/18/22 09/18/22 Range/Units 07:49 05:24 05:24 WBC 7.4 (4.8-10.8) x10^3/uL RBC 4.73 (4.20-5.40) 10^6/uL Hgb 12.2 (12.0-16.0) g/dL Hct 37.1 (37.0-47.0) % MCV 78.4 L (81.0-99.0) fL MCH 25.8 L (27.0-31.0) pg MCHC 32.9 (32.0-36.0) g/dL RDW 15.2 H (12.0-15.0) % Plt Count 327 (130-450) 10^3/uL MPV 8.5 (7.9-10.8) fL VBG pH 7.492 H (7.31-7.41) VBG pCO2 43.3 (41-51) mmHg VBG pO2 24.7 L (25-47) mmHg VBG HCO3 32.4 H (23-28) mmol/L VBG Total CO2 33.7 H (24-29) mmol/L VBG O2 Saturation 55.0 L (60-80) % VBG Base Excess 8.2 H (-2 - +2) mmol/L Sodium 135 (135-145) mmol/L Potassium 2.7 L (3.5-5.0) mmol/L Chloride 95 L (101-111) mmol/L Carbon Dioxide 32 (21-32) mmol/L Anion Gap 8.0 (6-13) BUN < 5 L (6-20) mg/dL Creatinine 0.7 (0.4-1.0) mg/dL Estimated GFR (MDRD) 100 (>89) Glucose 168 H (70-100) mg/dL POC Whole Bld Glucose (70 - 100) mg/dL Calcium 8.9 (8.5-10.3) mg/dL Magnesium 1.8 (1.7-2.8) mg/dL Iron 19 L (28-170) ug/dL TIBC 365 (250-450) ug/dL % Saturation 5 L (20-50) % Transferrin 261 (192-382) mg/dL Total Bilirubin 0.7 (0.2-1.0) mg/dL AST 45 H (10-42) IU/L ALT 55 (10-60) IU/L Alkaline Phosphatase 71 (42-121) IU/L Total Protein 6.6 L (6.7-8.2) g/dL Albumin 4.1 (3.2-5.5) g/dL Globulin 2.5 (2.1-4.2) g/dL Albumin/Globulin Ratio 1.6 (1.0-2.2) 09/17/22 09/17/22 09/17/22 Range/Units 16:13 14:20 11:01 WBC (4.8-10.8) x10^3/uL RBC (4.20-5.40) 10^6/uL Hgb (12.0-16.0) g/dL Hct (37.0-47.0) % MCV (81.0-99.0) fL MCH (27.0-31.0) pg MCHC (32.0-36.0) g/dL RDW (12.0-15.0) % Plt Count (130-450) 10^3/uL MPV (7.9-10.8) fL VBG pH (7.31-7.41) VBG pCO2 (41-51) mmHg VBG pO2 (25-47) mmHg VBG HCO3 (23-28) mmol/L VBG Total CO2 (24-29) mmol/L VBG O2 Saturation (60-80) % VBG Base Excess (-2 - +2) mmol/L Sodium (135-145) mmol/L Potassium 2.9 L (3.5-5.0) mmol/L Chloride (101-111) mmol/L Carbon Dioxide (21-32) mmol/L Anion Gap (6-13) BUN (6-20) mg/dL Creatinine (0.4-1.0) mg/dL Estimated GFR (MDRD) (>89) Glucose (70-100) mg/dL POC Whole Bld Glucose 185 H 279 H (70 - 100) mg/dL Calcium (8.5-10.3) mg/dL Magnesium 1.7 (1.7-2.8) mg/dL Iron (28-170) ug/dL TIBC (250-450) ug/dL % Saturation (20-50) % Transferrin (192-382) mg/dL Total Bilirubin (0.2-1.0) mg/dL AST (10-42) IU/L ALT (10-60) IU/L Alkaline Phosphatase (42-121) IU/L Total Protein (6.7-8.2) g/dL Albumin (3.2-5.5) g/dL Globulin (2.1-4.2) g/dL Albumin/Globulin Ratio (1.0-2.2) 09/17/23 Range/Units 05:48 WBC (4.8-10.8) x10^3/uL RBC (4.20-5.40) 10^6/uL Hgb (12.0-16.0) g/dL Hct (37.0-47.0) % MCV (81.0-99.0) fL MCH (27.0-31.0) pg MCHC (32.0-36.0) g/dL RDW (12.0-15.0) % Plt Count (130-450) 10^3/uL MPV (7.9-10.8) fL VBG pH (7.31-7.41) VBG pCO2 (41-51) mmHg VBG pO2 (25-47) mmHg VBG HCO3 (23-28) mmol/L VBG Total CO2 (24-29) mmol/L VBG O2 Saturation (60-80) % VBG Base Excess (-2 - +2) mmol/L Sodium (135-145) mmol/L Potassium (3.5-5.0) mmol/L Chloride (101-111) mmol/L Carbon Dioxide (21-32) mmol/L Anion Gap (6-13) BUN (6-20) mg/dL Creatinine (0.4-1.0) mg/dL Estimated GFR (MDRD) (>89) Glucose (70-100) mg/dL POC Whole Bld Glucose (70 - 100) mg/dL Calcium (8.5-10.3) mg/dL Magnesium 1.8 (1.7-2.8) mg/dL Iron (28-170) ug/dL TIBC (250-450) ug/dL % Saturation (20-50) % Transferrin (192-382) mg/dL Total Bilirubin (0.2-1.0) mg/dL AST (10-42) IU/L ALT (10-60) IU/L Alkaline Phosphatase (42-121) IU/L Total Protein (6.7-8.2) g/dL Albumin (3.2-5.5) g/dL Globulin (2.1-4.2) g/dL Albumin/Globulin Ratio (1.0-2.2) ABX Reporting Has patient been on IV antibiotics over the past 48 hours?: No Sepsis Event Note (H) - Evaluation Current Stage of Sepsis: Ruled out Assessment/Plan - Problem List (1) Hypokalemia Impression: This is likely from potassium losses in vomiting and also inadequate intake. She has been given potassium replacements. All labs were reviewed. Her admission potassium of 2 has only increased to 2.6. 09/17: Potassium level increased from 2.5 this morning to 2.9 this afternoon. Her retching and vomiting have resolved. Pt expressed that she does not want to stay another night. It was explained to her that her potassium is not yet replenished, and she must be able to hydrate and feed herself w/o vomiting before discharge. 09/18: New vomit episodes today at 0400 and 0430 am. Her potassium levels actually decreased from 2.9 to 2.7, likely due to the vomiting. Plan: Continue IV K-riders x 5. Recheck potassium later today. (2) Intractable nausea and vomiting Impression: This is probably a combination of her diabetic gastroparesis and having recently used marijuana, despite having been recommended in the past that she not use this. Labs showed a pH 7.467, Na 132, K 2.1, Gluc 123, CO2 30; so she was not in DKA 09/17: Pt report feeling much better today. She is not experiencing any n/v. She is tolerating reglan and zofran well. She reports feeling hunger overnight, and this morning asked for seconds of her breakfast (broth and jello). She tried pureed lunch today, which was tolerated well. She would like more solid foods for lunch. Nursing reported pt has had 3000+ cc of water. 09/18: 2 episodes of vomiting today at 0400 and 0430 am. She was given zofran. She states that her nausea comes on when she sits up in bed. Plan: Deescalate diet, going back to clear liquids diet again Will request recommendations from nutrition regarding her protein intake, since this is likely DKA. Continue Reglan IV, scheduled Continue PRN IV Zofran and IV Compazine Promote oral intake of other liquids (chicken broth, juice, electrolyte drinks) IV fluids were changed from lactated ringers 100 cc to normal saline 60 cc Continue the empiric Protonix Pt has been referred for consideration of Gastric Pacemaker surgery for her Gastroparesis; her first appt is scheduled for December 2022. (3) Ketosis Impression: Today there was suspicion of DKA due to her vomit episodes. Serum ketones are present. VBG were drawn. pH is 7.49, CO2 43.3, O2 24.7, HCO3 32.4. Her glucose is 168. It is safe to rule out DKA. PLAN: Will request recommendations from nutrition regarding her protein intake, since this is likely DKA. (4) Type 1 diabetes mellitus with diabetic gastropathy Impression: 09/17: Blood sugars today were 134 and 279 prior to meals. She denies abdominal discomfort, neuropathy, or hypoglycemic symptoms. 09/18: Blood sugar this morning was 168. She has an insulin pump that aut omatically checks blood glucose and administers insulin based on this. Plan: We will continue her own IV pump, treating her own glucose monitoring. Discontinue SS Insulin and accuchecks. Nurses will monitor glucose levels through her pump. (5) Marijuana use Impression: It has been recommended in the past that she not use this. She claims she uses it to increase her appetite. The admitting doctor then offered her Remeron which she has agreed to try unfortunately she is not keeping anything down so the Remeron has to be on hold. 09/17: Her vomiting episodes have ceased. 09/18: Continue with same plan. PLAN: Continue remeron for appetite. 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 She expressed understanding. (6) Anxiety Impression: Pt is on a scheduled ativan. On a separate admission, pt had increased anxiety because she did not want to here. She was observed to be crying in her room. 09/18: She is very concerned about her pets at home, since there is no one available to care for them for the next few days. I reassured pt that she can go home as soon as her n/v is under control, she can hydrate/feed herself w/o n/v, and her potassium increases significantly. PLAN: Provide reassurance for pt. Consider repeating ativan 0.5 mg. (7) Ventricular bigeminy Impression: Telemetry strip was reviewed, brought to me by RN. It shows ventricular bigeminy. This is likely caused by her persistently low potassium level. 09/17: Last night pt complained of itchiness from the leads on her skin. She was given Benadryl for relief. 09/18: Telemetry was discontinued yesterday. Her potassium is being aggressively replenished, and therefore monitoring is no longer necessary as she should be improving. (8) Low back pain Impression: 09/17: Pt reports no pain today. 09/18: Pt had a new lidocaine patch placed this morning. She denies pain. PLAN: Continue lidocaine patch prn.
[2022-09-18] MEDS: INSULIN LISPRO 100 UNIT/1 ML 10 ML MDV SUBQ SCH (09:12)
[2022-09-18] MEDS: ENOXAPARIN 40 MG/0.4 ML SYRINGE SUBQ SCH (09:12)
[2022-09-18] MEDS: LORazepam 2 MG/ML VIAL IVP SCH ×2 (09:13→21:22)
[2022-09-18] MEDS: SODIUM CHLORIDE FLUSH 0.9% 10 ML SYRINGE IVP SCH ×3 (09:14→23:48)
[2022-09-18] MEDS: POTASSIUM CHLOR 10 MEQ/100 ML 10 MEQ/100 ML BAG IV SCH ×5 (10:29→15:41)
[2022-09-18] MEDS: SODIUM CHLORIDE 0.9% 1,000 ML IV SCH (12:22)
[2022-09-18] MEDS ORDERED: MAGNESIUM SULFATE 1 GM in SODIUM CHLORIDE 0.9% 50 ML IV ONE (18:06)
[2022-09-18] MEDS ORDERED: MAGNESIUM SULFATE 2 GRAM 2 GM/50 ML BAG IV ONE (19:00)
[2022-09-18] MEDS ORDERED: NS W/40 MEQ KCL 1,000 ML IV ONE (19:00)
[2022-09-18] MEDS ORDERED: POTASSIUM CHLOR 10 MEQ/100 ML 10 MEQ/100 ML BAG IV SCH (19:00)
[2022-09-18] MEDS: POTASSIUM CHLORIDE 20 MEQ/15 ML UDC PO SCH (19:16)
[2022-09-18] MEDS: MIRTAZAPINE 15 MG TABLET PO SCH (21:22)
[2022-09-19] MEDS: METOCLOPRAMIDE 10 MG/2 ML VIAL IVP SCH (05:31)
[2022-09-19 05:32] LABS: HCT - HEMATOCRIT 37.1 % (37.0-47.0); MEAN CORPUSCULAR HGB CONC 32.3 g/dL (32.0-36.0); MEAN CORPUSCULAR VOLUME 80.3 fL (81.0-99.0); MEAN PLATELET VOLUME 8.5 fL (7.9-10.8); RED BLOOD COUNT 4.62 10^6/uL (4.20-5.40); RED CELL DISTRIBUTION WIDTH 15.7 % (12.0-15.0); WHITE BLOOD COUNT 6.6 x10^3/uL (4.8-10.8)
[2022-09-19 05:44] LABS: BUN - BLOOD UREA NITROGEN < 5 mg/dL (6-20); CALCIUM 8.8 mg/dL (8.5-10.3); CARBON DIOXIDE - CO2 27 mmol/L (21-32); CHLORIDE 103 mmol/L (101-111); CREATININE 0.5 mg/dL (0.4-1.0); GFR - MDRD 147 (>89); GLUCOSE 83 mg/dL (70-100); POTASSIUM 3.6 mmol/L (3.5-5.0); SODIUM 139 mmol/L (135-145)
[2022-09-19] MEDS: PANTOPRAZOLE 40 MG VIAL IV SCH (06:14)
[2022-09-19 07:27] VITALS: BP 113/79
[2022-09-19] MEDS ORDERED: MAGNESIUM OXIDE 400 MG TABLET PO SCH (08:00)
[2022-09-19] MEDS: ENOXAPARIN 40 MG/0.4 ML SYRINGE SUBQ SCH (09:04)
[2022-09-19] MEDS: POTASSIUM CHLORIDE 20 MEQ/15 ML UDC PO SCH (09:04)
[2022-09-19] MEDS: INSULIN LISPRO 100 UNIT/1 ML 10 ML MDV SUBQ SCH (09:05)
[2022-09-19] MEDS: SODIUM CHLORIDE FLUSH 0.9% 10 ML SYRINGE IVP SCH (09:09)
[2022-09-19] MEDS ORDERED: ONDANSETRON ODT 4 MG TABLET TL PRN (09:12)
--- NOTE | 2022-09-19 09:17 | Discharge Plan ---
Discharge Plan Problem Reviewed?: Yes Disposition: Home, Self Care Condition: Fair Prescriptions: Ondansetron Odt [Zofran Odt] 4 mg TL Q4HR PRN #60 tab PRN Reason: Nausea / Vomiting Potassium Bicarbonate [K-Effervescent] 25 meq PO BID #60 tablet Lidocaine Patch 5% [Lidoderm Patch] 1 patch TOP DAILY PRN #30 patch PRN Reason: Moderate Pain (Level 4-6) Iron Polysaccharide Complex [Novaferrum] 250 mg PO DAILY #1 ea Metoclopramide [Reglan] 5 mg PO TID #90 tab Mirtazapine [Remeron] 15 mg PO QPM #30 tab Diet: Diabetic (Eat a pured or soft diet, or what ever you can tolerate. I recommend you take a Reglan tablet and a trans-lingual Zofran 20 minutes before each meal to prevent nausea and help propel the food along, from your stomach.) Activity Restrictions: Activity as Tolerated Shower Restrictions: No Driving Restrictions: No Instruction Topics: Ondansetron oral dissolving tablet Health Concerns: You were hospitalized to manage severely low Potassium levels, which was caused by you having vomiting. The vomiting was caused by your gastroparesis and from your marijuana use. You needed many days of IV potassium replacement, indicating you were that severely and dangerously depleted in potassium. You are being discharged home with a new prescription for daily oral Potassium. In order to prevent recurrence of your incessant vomiting, causing such low Potassium levels, STOP USING MARIJUANA. You are being discharged today and advised to slowly advance your diet. A new prescription to stimulate your appetite, Remeron to take every evening, has been. Keep drinking clear liquids to stay hydrated. Eat pured foods then soft foods and avoid spicy and hard to digest foods. Your iron levels are dseverely low due to your poor nutrition, so you are being discharged home with a new prescription for daily oral Iron. I am prescribing for you to take Zofran translingual, which helps manage nausea. I am also prescribing Reglan tablets for you to take on a scheduled basis to help the nausea by propelling your food from your stomach into the intestines (since diabetic gastroparesis causes the food to not empty into your intestines). I recommend you take a trans-lingual Zofran and a tablet of Reglan 20 to 30 minutes before each meal. This way, hopefully the food that you eat will be able to stay in your intestines without being vomited, to give your body protein and nutrition. Please also consider drinking high-protein supplement drinks. All new medications have been electronically sent to the [facility] pharmacy in [place]. Please pick these up before you make your trip to [place] today! You may resume all your other pre-hospital medications and diabetic management. Plan of Treatment: As above. Care Goals: Improvement in symptoms and stabilization are the goals. Assessment: This instruction sheet is provided for you as a reminder. Additional Instructions or Follow Up instructions: If you have new or worsening symptoms, call your diabetic specialist, or go to an ER. No Smoking: If you smoke, Please STOP! Call for help. Follow-up with: CARL CLARKE MD [Primary Care Provider] -
--- NOTE | 2022-09-19 09:20 | DISCHARGE SUMMARY ---
Discharge Summary Admit Date: 09/15/22 Discharge Date: 09/19/22 Discharging Provider: Hali Walker MD Primary Care Provider: Delonte Trevino MD Code Status: Attempt Resuscitation Condition at Discharge: Fair Discharge Disposition: Home, Self Care - DIAGNOSES Discharge Diagnoses with Status of Each Condition: Hypokalemia Intractable nausea and vomit Ketosis Type 1 DM with diabetic gastropathy Marijuana use Anxiety Ventricular bigeminy Low back pain - HPI History of Present Illness: 27 yo F with PMH of DM type 1 with Gastropathy and Peripheral Neuropathy on insulin pump, Marijuana use, and multiple admissions for intractable/cyclical N/V and DKA presented to the ER with c/o 4 day h/o nausea/vomiting, abdominal pain. Pt used Marijuana on 09/12. Later that day, she began to experience epigastric pain and nausea/vomiting. Her BS went up to 370s, so she went to [facility]. She was not in DKA and her BS improved in the ER, so she was discharged home. At home, she continued to have nausea/vomiting, and abdominal pain. She was dry-heaving. Abdominal pain was epigastric with radiation to her back, intermittent, sharp then dull, nagging pain. Pt was not able to keep down PO fluids or food x 4 days prior to her ED visit. No urinary symptoms. No F/C. No CP/SOB/cough. Her BS have been <150s since 09/12. She uses Marijuana regularly to help increase her appetite, as she generally has no de sire to eat. Her GI specialist and her have considered prescribing appetite stimulants, but have not done so. She was found to be hypokalemic and was admitted to the med/surg unit. - HOSPITAL COURSE Hospital Course: (1) Hypokalemia The patient's cyclic vomiting and likely inadequate intake have lead to a hypokalemic state. She was started on K-riders on admission, where her level was at 2. Her levels increased slowly, and dropped on one occasion, likely due to vomiting. She expressed wanting to leave, but was advised that her potassium was still too low to be safely discharged. Several bags of K-riders, oral potassium supplements, and 1 magnesium bag were given on 09/18. Her levels today have increased to a normal level of 3.6. Potassium supplement have been sent to her pharmacy. She is to follow up with her PCP. (2) Intractable nausea and vomiting Her symptoms were likely a combination of her diabetic gastroparesis and having recently used marijuana. She was started on zofran, reglan, and protonix. She re ported improvement of her symptoms throughout her stay, but she continued to have episodes of n/v. She was advised to have oral intake of liquids other than water, such as chicken broth, juice, and electrolyte drinks. IV fluids were changed from lactated ringers 100 cc to normal saline 60 cc. Her diet was escalated to pureed and mechanical soft. She had vomiting episodes that night. Her diet was deescalated to liquids. There were no episodes overnight. This morning she tolerated a pureed diet, and a soft sandwich. She is able to go home today, and was instructed to take zofran and reglan 20 minutes prior to her meals. Pt has been referred for consideration of Gastric Pacemaker surgery for her Gastroparesis; her first appt is scheduled for December 2022. (3) Ketosis There was suspicion of DKA due to her vomit episodes. Workup demonstrated serum ketones were present. VBG were drawn: pH 7.49, CO2 43.3, O2 24.7, HCO3 32.4. Her glucose was 168. With these values, DKA was ruled out. Her ketosis was likely starvation ketosis, as she was vomiting for several days and was also on a clear liquids diet. The ketosis should subside as she begins to receive more nutrients now that she is no longer vomiting. (4) Type 1 diabetes mellitus with diabetic gastropathy Pt has a history of T1DM, with gastropathy and neuropathy. She denied peripheral paresthesias throughout her stay. Initially she was started on bedside glucose checks and sliding scale insulin. However, she has an insulin pump that automatically checks blood glucose and administers insulin based on this. The SS and accuchecks were discontinued. Her glucose was monitored through her pump. (5) Marijuana abuse She claims the marijuana increases her appetite. However, she experiences cyclic vomiting as a side effect. Pt has been advised several times before to cease cannabis use. The admitting doctor offered Remeron as an alterative for appetite stimulation. Due to her nausea and vomiting, Remeron was on hold for a couple days. It was started on 09/17. She continued on this medication throughout her stay and tolerated it well. A prescription for Remeron was sent to her pharmacy. She was counseled once again on the importance of not smoking cannabis. (6) Iron deficiency anemia The pt was noted to have low iron of 19 on 09/18. Advised pt to take the prescribed supplements, and follow up with her PCP for further evaluation. (7) Anxiety Pt is on a scheduled Ativan. On a separate admission, pt had increased anxiety because she did not want to inpatient. She was observed to be crying in her room. She expressed concern about her pets at home, since there is no one available to care for them for the next few days. Pt was reassured by explaining that she can go home as soon as her n/v is under control, she can hydrate/feed herself w/o n/v, and her potassium increases significantly. She is to follow up with her PCP if the anxiety continued after discharge. (8) Low back pain She reported back pain on 09/16 and was given a lidocaine patch for relief. She had patches throughout her stay, and reported no pain. She will be prescribed patches for home. (9) Ventricular bigeminy Pt had an episode of tachycardia and was placed on telemetry. The strip showed ventricular bigeminy on 09/16. This was likely caused by her persistently low potassium level. However, the lead patches caused itching and were discontinued. The pt was given Benadryl for itching. Since the potassium was being aggressively replenished, monitoring was deemed no longer necessary. - ALLERGIES Allergies/Adverse Reactions: Allergies Allergy/AdvReac Type Severity Reaction Status Date / Time ketorolac [From Toradol] Allergy Rash Verified 01/26/22 07:10 Milk Containing Products Allergy Unknown Verified 01/26/22 07:10 (Dairy) [Milk Containing Products] - MEDICATIONS Home Medications: Ambulatory Orders Medication Instructions Recorded Confirmed Insulin Lispro [Humalog] 52 - 56 units SUBQ DAILY 08/12/20 09/16/22 Iron Polysaccharide Complex 250 mg PO DAILY #1 ea 09/19/22 [Novaferrum] Lidocaine Patch 5% [Lidoderm Patch] 1 patch TOP DAILY PRN #30 patch 09/19/22 Metoclopramide [Reglan] 5 mg PO TID #90 tab 09/19/22 Mirtazapine [Remeron] 15 mg PO QPM #30 tab 09/19/22 Ondansetron Odt [Zofran Odt] 4 mg TL Q4HR PRN #60 tab 09/19/22 Potassium Bicarbonate 25 meq PO BID #60 tablet 09/19/22 [K-Effervescent] - PHYSICAL EXAM AT DISCHARGE General Appearance: positive: No acute distress, Alert Eyes Bilateral: positive: Normal inspection ENT: positive: ENT inspection nml Neck: positive: Nml inspection, Trachea midline Respiratory: positive: Chest non-tender, No respiratory distress, Breath sounds nml Cardiovascular: positive: Regular rate & rhythm, No murmur, No gallop Peripheral Pulses: positive: 2+ Abdomen: positive: Non-tender, Nml bowel sounds, No distention Back: positive: Nml inspection Skin: positive: Color nml, No rash, Warm Extremities: positive: Non-tender, Full ROM, Nml appearance Neurologic/Psychiatric: positive: Oriented x3, CN's nml (2-12), Motor nml, Sensation nml, Mood/affect nml - LABS Result Diagrams: 09/19/22 05:17 09/19/22 05:17 - DIAGNOSTIC IMAGING Diagnostic Imaging Results: Final report reviewed - SEPSIS Current Stage of Sepsis: Ruled out
[2022-09-19] MEDS: LORazepam 2 MG/ML VIAL IVP SCH (10:12)
[2022-09-19] MEDS ORDERED: ONDANSETRON ODT 4 MG TABLET TL SCH (10:13)
== END 2022-09-19 11:25 | disposition home or self-care (01) | DRG 641 ==
LOC: ED 18:23 → MS2 21:42 → OBSVTOIN 09-16 08:58
PROVIDERS: ADMIT Internal Medicine; ATTEND Internal Medicine
DX: E87.6 Hypokalemia (principal); E10.43 Type 1 diabetes mellitus with diabetic autonomic (poly)neuropathy; K31.84 Gastroparesis; E10.42 Type 1 diabetes mellitus with diabetic polyneuropathy; Z79.4 Long term (current) use of insulin; Z96.41 Presence of insulin pump (external) (internal); R11.2 Nausea with vomiting, unspecified; E88.89 Other specified metabolic disorders; F12.10 Cannabis abuse, uncomplicated; D50.9 Iron deficiency anemia, unspecified; F41.9 Anxiety disorder, unspecified; M54.50 Low back pain, unspecified; R00.8 Other abnormalities of heart beat; R00.0 Tachycardia, unspecified; K21.9 Gastro-esophageal reflux disease without esophagitis; L29.9 Pruritus, unspecified
CPT/HCPCS: 36415; 80048; 80053; 80306; 81003; 81025; 82009; 82803; 83036; 83540; 83735; 84100; 84132; 84466; 85025; 85027; 96361; 96365; 96366; 96375; 99281; 99285; A9270; G0378; J1650; J2060; J2765; J7120; J8498; Q0162; 81001; 87086

== ENCOUNTER 2023-02-17 04:23 | Emergency (ER) | payer OTHER ==
--- NOTE | 2023-02-17 04:33 | ED Physician Documentation ---
PD HPI NVD - Stated complaint Stated Complaint: NAUSEA,VOMIT, BACK PX - Chief complaint Chief Complaint: Back Pain - History obtained from History obtained from: Patient - Additonal information Additional information: HPI from patient. Patient c/o nausea, vomiting, and diffuse abdominal pain. Symptoms started at approximately 10 PM tonight while at home, at rest. She has had many similar previous episodes, often attributed to diabetic gastroparesis. This is her 13th ED visit over past 12 months to 3 different EDs. She was evaluated twice in [facility] ED earlier this month, one of the two visits resulted in inpatient stay. No ameliorating factors. The n/v and pain are exacerbated with any PO intake including sips of liquids. Review of Systems Constitutional: reports: Sweats. denies: Fever, Chills Cardiac: reports: Reviewed and negative Respiratory: reports: Reviewed and negative GI: reports: Abdominal Pain, Nausea, Vomiting. 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, Other HEENT: None Psych: Anxiety, Panic attacks Musculoskeletal: None Derm: None - Past Surgical History Past Surgical History: Yes General: Appendectomy - Present Medications Home Medications: Ambulatory Orders Medication Instructions Recorded Confirmed Insulin Lispro [Humalog] 52 - 56 units SUBQ DAILY 08/12/20 02/17/23 Metoclopramide [Reglan] 5 mg PO TID #90 tab 09/19/22 02/17/23 Mirtazapine [Remeron] 15 mg PO QPM #30 tab 09/19/22 02/17/23 - Allergies Allergies/Adverse Reactions: Allergies Allergy/AdvReac Type Severity Reaction Status Date / Time ketorolac [From Toradol] Allergy Rash Verified 02/17/23 04:28 Milk Containing Products Allergy Unknown Verified 02/17/23 04:28 (Dairy) [Milk Containing Products] - Social History Does the pt smoke?: No Smoking Status: Never smoker Does the pt drink ETOH?: No Does the pt have substance abuse?: Yes - Immunizations Immunizations are current?: Yes - POLST Patient has POLST: No POLST Status: Full Code PD ED PE NORMAL - Vitals Vital signs reviewed: Yes - General General: Alert and oriented X 3, Well developed/nourished, Other (appears uncomfortable, shaking at times and writhing in bed other times during H+P. she is pale and diaphoretic) - HEENT HEENT: Other (pasty mucous membranes) - Neck Neck: Supple, no meningeal sign - Cardiac Cardiac: RRR, No murmur - Respiratory Respiratory: No respiratory distress, Clear bilaterally - Abdomen Abdomen: Normal bowel sounds, Soft, Non tender, Non distended - Back Back: No CVA TTP - Derm Derm: Other (pale, diaphoretic) Results - Vitals Vitals: Oxygen O2 Source Room air - Labs Labs: Laboratory Tests 02/17/23 02/17/23 02/17/23 04:52 05:50 05:50 WBC 11.8 H RBC 4.08 L Hgb 10.5 L Hct 33.0 L MCV 80.9 L MCH 25.7 L MCHC 31.8 L RDW 15.0 Plt Count 385 MPV 8.8 Neut # (Auto) 9.9 H Lymph # (Auto) 1.2 L [place] # (Auto) 0.6 Eos # (Auto) 0.0 Baso # (Auto) 0.1 Absolute Nucleated RBC 0.00 Nucleated RBC % 0.0 VBG pH 7.265 L VBG pCO2 51.1 H VBG pO2 36.1 VBG HCO3 22.7 L VBG Total CO2 24.2 VBG O2 Saturation 65.7 VBG Base Excess -4.5 L Sodium Potassium Chloride Carbon Dioxide Anion Gap BUN Creatinine Estimated GFR (MDRD) Glucose POC Whole Bld Glucose 218 H Calcium Total Bilirubin AST ALT Alkaline Phosphatase Total Protein Albumin Globulin Albumin/Globulin Ratio Lipase Serum Ketones 02/17/23 02/17/23 05:50 05:50 WBC RBC Hgb Hct MCV MCH MCHC RDW Plt Count MPV Neut # (Auto) Lymph # (Auto) [place] # (Auto) Eos # (Auto) Baso # (Auto) Absolute Nucleated RBC Nucleated RBC % VBG pH VBG pCO2 VBG pO2 VBG HCO3 VBG Total CO2 VBG O2 Saturation VBG Base Excess Sodium 141 Potassium 3.8 Chloride 105 Carbon Dioxide 27 Anion Gap 9.0 BUN 23 H Creatinine 0.7 Estimated GFR (MDRD) 100 Glucose 213 H POC Whole Bld Glucose Calcium 9.1 Total Bilirubin 0.7 AST 29 ALT 30 Alkaline Phosphatase 84 Total Protein 7.1 Albumin 4.5 Globulin 2.6 Albumin/Globulin Ratio 1.7 Lipase < 10 L Serum Ketones NEGATIVE PD Medical Decision Making - ED course Complexity details: reviewed old records, reviewed results, re-evaluated p atient, considered differential, d/w patient ED course: IV established and she is given 0.5mg lorazepam IV, 2.5mg droperidol IV, 1mg IV dilaudid, and 1 liter NS IV. Her blood test results are reassuring with negative serum ketones, blood glucose 218 on finger stick, 213 on BMP. Slightly elevated BUN:creatinine ratio (23:0.7), likely representing mild dehydration. Minimal leukocytosis (11.8 wbc). pH is 7.27 on VBG. Thus no evidence of DKA On reevaluation after fluids and medication as noted, above, she is asleep. Requires verbal with gentle tactile to awaken. I reviewed results with her, discussed return precautions, advised her to follow up with PCP (to call to arrange for next available appointment). Departure - Departure Disposition: 01 Home, Self Care Clinical Impression: Type 1 diabetes mellitus with diabetic gastropathy Condition: Good Instructions: ED Abdominal Pain Female Non-Specific Abdominal Pain Comments: There were no concerning nor diagnostic findings on tonight's tests. Your blood sugars were in the mid/lower 200s, and a blood test for ketones was negative: This strongly suggests against diabetic ketoacidosis (DKA). Your potassium level was normal (it has been dangerously low in the past, but not tonight). At this point, it is safe and appropriate to discharge you home. Contact your primary care provider's office this morning to arrange for next available appoi ntment for follow-up/reevaluation. Forms: PCP List Discharge Date/Time: 02/17/23 06:49
[2023-02-17 04:48] VITALS: O2SAT 100
[2023-02-17] MEDS: SODIUM CHLORIDE 0.9% 1,000 ML IV STA (04:50)
[2023-02-17] MEDS: HYDROmorphone 1 MG/ML CARPUJECT IVP STA (05:12)
[2023-02-17] MEDS: DROPERIDOL 5 MG/2 ML VIAL IVP STA (05:13)
[2023-02-17] MEDS: LORazepam 2 MG/ML VIAL IVP STA (05:19)
[2023-02-17 06:04] LABS: BASOPHILS # (AUTO) 0.1 10^3/uL (0.0-0.1); BASOPHILS % (AUTO) 0.4 %; HGB - HEMOGLOBIN 10.5 g/dL (12.0-16.0); LYMPHOCYTES # (AUTO) 1.2 10^3/uL (1.5-3.5); LYMPHOCYTES % (AUTO) 10.3 %; MEAN CORPUSCULAR HEMOGLOBIN 25.7 pg (27.0-31.0); MEAN CORPUSCULAR HGB CONC 31.8 g/dL (32.0-36.0); MEAN CORPUSCULAR VOLUME 80.9 fL (81.0-99.0); MEAN PLATELET VOLUME 8.8 fL (7.9-10.8); MONOCYTES # (AUTO) 0.6 10^3/uL (0.0-1.0); MONOCYTES % (AUTO) 4.9 %; NEUTROPHILS # (AUTO) 9.9 10^3/uL (1.5-6.6); NEUTROPHILS % (AUTO) 84.1 %; PLT - PLATELET COUNT 385 10^3/uL (130-450); RED BLOOD COUNT 4.08 10^6/uL (4.20-5.40); WHITE BLOOD COUNT 11.8 x10^3/uL (4.8-10.8)
[2023-02-17 06:12] LABS: VBG PCO2 51.1 mmHg (41-51); VBG PH 7.265 (7.31-7.41); VBG PO2 36.1 mmHg (25-47)
[2023-02-17 06:13] LABS: VBG BASE EXCESS -4.5 mmol/L (-2 - +2); VBG HCO3 22.7 mmol/L (23-28); VBG OXYGEN SATURATION 65.7 % (60-80); VBG TOTAL CO2 24.2 mmol/L (24-29)
[2023-02-17 06:16] LABS: ALBUMIN 4.5 g/dL (3.2-5.5); ALBUMIN/GLOBULIN RATIO 1.7 (1.0-2.2); ALKALINE PHOSPHATASE 84 IU/L (42-121); ALT ALANINE AMINOTRANSFERASE 30 IU/L (10-60); AST ASPARTATE AMINOTRANSFERASE 29 IU/L (10-42); BILIRUBIN,TOTAL 0.7 mg/dL (0.2-1.0); BUN - BLOOD UREA NITROGEN 23 mg/dL (6-20); CALCIUM 9.1 mg/dL (8.5-10.3); CARBON DIOXIDE - CO2 27 mmol/L (21-32); CHLORIDE 105 mmol/L (101-111); CREATININE 0.7 mg/dL (0.6-1.3); GFR - MDRD 100 (>89); GLUCOSE 213 mg/dL (74-104); POTASSIUM 3.8 mmol/L (3.5-4.5); SODIUM 141 mmol/L (135-145); TOTAL PROTEIN 7.1 g/dL (6.4-8.9)
[2023-02-17 06:27] LABS: LIPASE < 10 U/L (11-82)
[2023-02-17 06:54] VITALS: BP 123/83
== END 2023-02-17 06:49 | disposition home or self-care (01) ==
LOC: ED 04:23
DX: E10.42 Type 1 diabetes mellitus with diabetic polyneuropathy (principal); K31.89 Other diseases of stomach and duodenum; Z79.899 Other long term (current) drug therapy
CPT/HCPCS: 36415; 80053; 82009; 82803; 83690; 85025; 96374; 96375; 99283

== ENCOUNTER 2023-03-29 04:41 | Emergency (ER) | payer OTHER ==
[2023-03-29] MEDS ORDERED: DROPERIDOL 5 MG/2 ML VIAL IVP STA ×2 (05:03→06:56)
[2023-03-29] MEDS ORDERED: SODIUM CHLORIDE 0.9% 1,000 ML IV STA (05:03)
[2023-03-29] MEDS ORDERED: METOCLOPRAMIDE 10 MG/2 ML VIAL IVP STA (05:03)
[2023-03-29 05:45] LABS: BILIRUBIN,URINE NEGATIVE (NEGATIVE); GLUCOSE, URINE (UA) 250 mg/dL (NEGATIVE); KETONES,URINE (UA) NEGATIVE (NEGATIVE); LEUKOCYTE ESTERASE, URINE TRACE (NEGATIVE); NITRITE,URINE POSITIVE (NEGATIVE); OCCULT BLOOD,URINE NEGATIVE (NEGATIVE); PROTEIN,URINE NEGATIVE (NEGATIVE); UROBILINOGEN,URINE 0.2 (NORMAL) E.U./dL (NORMAL)
[2023-03-29 05:59] LABS: CLARITY,URINE CLOUDY (CLEAR); HCG UR QUAL NEGATIVE
[2023-03-29 06:00] LABS: BACTERIA,URINE Many /HPF (None Seen); SQUAMOUS EPITHELIAL CELL,UR FEW Squamous (<= Few)
[2023-03-29 06:06] LABS: BASOPHILS # (AUTO) 0.1 10^3/uL (0.0-0.1); BASOPHILS % (AUTO) 0.8 %; EOSINOPHILS # (AUTO) 0.1 10^3/uL (0.0-0.7); EOSINOPHILS % (AUTO) 1.3 %; HCT - HEMATOCRIT 38.6 % (37.0-47.0); HGB - HEMOGLOBIN 11.8 g/dL (12.0-16.0); LYMPHOCYTES # (AUTO) 3.2 10^3/uL (1.5-3.5); LYMPHOCYTES % (AUTO) 51.4 %; MEAN CORPUSCULAR HEMOGLOBIN 25.5 pg (27.0-31.0); MEAN CORPUSCULAR HGB CONC 30.6 g/dL (32.0-36.0); MEAN CORPUSCULAR VOLUME 83.4 fL (81.0-99.0); MEAN PLATELET VOLUME 9.1 fL (7.9-10.8); MONOCYTES # (AUTO) 0.7 10^3/uL (0.0-1.0); MONOCYTES % (AUTO) 10.8 %; NEUTROPHILS # (AUTO) 2.2 10^3/uL (1.5-6.6); NEUTROPHILS % (AUTO) 35.5 %; PLT - PLATELET COUNT 387 10^3/uL (130-450); RED BLOOD COUNT 4.63 10^6/uL (4.20-5.40); RED CELL DISTRIBUTION WIDTH 15.3 % (12.0-15.0); WHITE BLOOD COUNT 6.3 x10^3/uL (4.8-10.8)
--- NOTE | 2023-03-29 06:30 | ED Physician Documentation ---
PD HPI ABD PAIN - Stated complaint Stated Complaint: ABD PX/BACK PX/ NAUSEA - Chief complaint Chief Complaint: Abd Pain - History obtained from History obtained from: Patient - Treatment prior to arrival Treatment prior to arrival: 27-year-old female with history of type 1 diabetes, gastroparesis with frequent flares presents by private vehicle from home for nausea, vomiting, midepigastric abdominal pain similar to previous flareups of her gastroparesis. She states that she has been taking her home Reglan but she still has pain and severe nausea. She has been monitoring her glucose with her home pump and states that her glucoses have been well-controlled over the last several days. Review of Systems Constitutional: denies: Fever, Chills Cardiac: denies: Chest pain / pressure, Palpitations Respiratory: denies: Dyspnea, Cough GI: reports: Abdominal Pain, Nausea, Vomiting. 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, Other HEENT: None Psych: Anxiety, Panic attacks Musculoskeletal: None Derm: None Other Past Medical History: Gastroparesis - Past Surgical History Past Surgical History: Yes General: Appendectomy - Present Medications Home Medications: Ambulatory Orders Medication Instructions Recorded Confirmed Insulin Lispro [Humalog] 52 - 56 units SUBQ DAILY 08/12/20 03/29/23 Metoclopramide [Reglan] 5 mg PO TID #90 tab 09/19/22 03/29/23 Mirtazapine [Remeron] 15 mg PO QPM #30 tab 09/19/22 03/29/23 - Allergies Allergies/Adverse Reactions: Allergies Allergy/AdvReac Type Severity Reaction Status Date / Time ketorolac [From Toradol] Allergy Rash Verified 03/29/23 05:35 Milk Containing Products Allergy Unknown Verified 03/29/23 05:35 (Dairy) [Milk Containing Products] - Social History Does the pt smoke?: No Smoking Status: Never smoker Does the pt drink ETOH?: No Does the pt have substance abuse?: Yes - Immunizations Immunizations are current?: Yes - POLST Patient has POLST: No POLST Status: Full Code PD ED PE NORMAL - Vitals Vital signs reviewed: Yes - General General: Alert and oriented X 3, Well developed/nourished, Other (appears to be in some discomfort, nontoxic) - HEENT HEENT: Atraumatic - Neck Neck: Supple, no meningeal sign - Cardiac Cardiac: Other (tachycardia, regular rhythm) - Respiratory Respiratory: No respiratory distress, Clear bilaterally - Abdomen Abdomen: Soft, Non distended - Back Back: No CVA TTP - Derm Derm: Normal color, Warm and dry, No rash - Extremities Extremities: No deformity, No tenderness to palpate, Normal ROM s pain, No edema - Neuro Neuro: Alert and oriented X 3, sawmill hand 2-12 intact, No motor deficit, Normal speech - Psych Psych: Normal mood, Normal affect Results - Vitals Vitals: Oxygen O2 Source Room air - Labs Labs: Microbiology 03/29/23 05:19 Urine Culture - Preliminary Urine,Clean Catch Laboratory Tests 03/29/23 03/29/23 03/29/23 05:19 05:23 05:23 WBC 6.3 RBC 4.63 Hgb 11.8 L Hct 38.6 MCV 83.4 MCH 25.5 L MCHC 30.6 L RDW 15.3 H Plt Count 387 MPV 9.1 Neut # (Auto) 2.2 Lymph # (Auto) 3.2 [place] # (Auto) 0.7 Eos # (Auto) 0.1 Baso # (Auto) 0.1 Absolute Nucleated RBC 0.00 Nucleated RBC % 0.0 Sodium 141 Potassium 3.8 Chloride 105 Carbon Dioxide 28 Anion Gap 8.0 BUN 18 Creatinine 0.8 Estimated GFR (MDRD) 85 L Glucose 95 Calcium 9.6 Total Bilirubin 0.4 AST 20 ALT 12 Alkaline Phosphatase 88 Total Protein 7.4 Albumin 4.6 Globulin 2.8 Albumin/Globulin Ratio 1.6 Lipase 14 Urine Color YELLOW Urine Clarity CLOUDY Urine pH 6.0 Ur Specific [place] 1.020 Urine Protein NEGATIVE Urine Glucose (UA) 250 H Urine Ketones NEGATIVE Urine Occult Blood NEGATIVE Urine Nitrite POSITIVE H Urine Bilirubin NEGATIVE Urine Urobilinogen 0.2 (NORMAL) Ur Leukocyte Esterase TRACE H Urine RBC 6-10 H Urine WBC 6-10 H Ur Squamous Epith Cells FEW Squamous Urine Bacteria Many H Ur Microscopic Review INDICATED Urine Culture Comments INDICATED Urine HCG, Qual NEGATIVE PD Medical Decision Making - ED course Complexity details: reviewed old records, reviewed results, re-evaluated patient, considered differential, d/w patient ED course: Slightly uncomfortable but nontoxic-appearing patient presenting with gastroparesis flareup. Record review shows that patient has had numerous ED visits for previous in the last year. Abdomen is soft, sugars appear to be well-controlled over the last several days, low suspicion for DKA. Will order IV fluids, antiemetics, droperidol Laboratory work is reviewed, there do not appear to be any significant acute abnormalities present. Patient is often found to be hypokalemic, however today potassium is 3.8. Anion gap is not elevated. Patient reassessed, she is still complaining of pain despite Reglan and droperidol. Ideally would like to avoid narcotics in patient with gastroparesis, however patient does historically seem to improve with morphine or Dilaudid. Will give additional droperidol and 1 dose of morphine. Care of patient signed to Dr. Gusman Departure - Departure Disposition: 01 Home, Self Care Clinical Impression: Intractable nausea and vomiting, Type 1 diabetes mellitus with diabetic gastropathy Condition: Stable Instructions: ED Diabetic Gastroparesis Follow-Up: CARL CLARKE MD [Physician No Access] - Comments: Kaur, today we administered Reglan, zofran, inapsine, morphine, dilaudid, ativan and saline. We were able to stabilize your vital signs but not control your symptoms. The recommendation is to try your medications at home as previously and if you worsen return for further treatment and potential admission. Discharge Date/Time: 03/29/23 12:43
[2023-03-29 06:44] LABS: ALBUMIN 4.6 g/dL (3.2-5.5); ALBUMIN/GLOBULIN RATIO 1.6 (1.0-2.2); BILIRUBIN,TOTAL 0.4 mg/dL (0.2-1.0); CALCIUM 9.6 mg/dL (8.5-10.3); CREATININE 0.8 mg/dL (0.6-1.3); POTASSIUM 3.8 mmol/L (3.5-4.5); TOTAL PROTEIN 7.4 g/dL (6.4-8.9)
[2023-03-29] MEDS ORDERED: MORPHINE 2 MG/ML CARPUJECT IVP STA (06:56)
[2023-03-29] MEDS ORDERED: DEXTROSE 10% 1,000 ML IV STA (09:09)
[2023-03-29] MEDS ORDERED: LORazepam 2 MG/ML VIAL IVP STA (10:29)
[2023-03-29] MEDS ORDERED: ONDANSETRON 4 MG/2 ML VIAL IVP STA (10:30)
[2023-03-29 11:41] VITALS: BP 133/71; O2SAT 100
--- NOTE | 2023-03-29 11:57 | ED Physician Documentation ---
ED Addendum - Addendum Addendum: 03/29/23 11:53 Kaur Morris is a 27-year-old type I diabetic with a history of gastroparesis who has multiple emergency department visits to multiple emergency departments for treatment of her gastroparesis. She has a number of admissions. She has been admitted here in September of this year and she has been admitted at [facility] and [facility] as well. Today she is treated with a combination of Reglan Inapsine saline morphine Zofran and Ativan. We were able to demonstrate that she was not in DKA, we were able to stabilize her vital signs but we were not able to control her symptoms entirely. I asked our hospitalist to admit the patient for further care. At that time the patient did not meet criteria for admission to the hospital. I discussed with this with the patient she would prefer to try to go home rather than attempt a food challenge. At conclusion of therapy her vital signs are normal. She continues to complain of pain and nausea. Impression: Diabetic gastroparesis Plan: Treated in the ED, discharged to home, has zofran and reglan at home, will return for failure. 03/29/23 11:57 03/29/23 11:58
--- NOTE | 2023-03-31 17:08 | ED Physician Documentation ---
ED Addendum - Addendum Addendum: 03/31/23 17:08 Urine culture reviewed. I called patient. She still feeling a little ill and like a prescription for sucralfate. She did not have urinary symptoms per se, but given that she is a poorly controlled and brittle diabetic seems reasonable to treat her for bacteriuria even if asymptomatic. As such I also sent a prescription for Macrobid 100 mg p.o. twice daily #10 to the [facility] pharmacy along with sucralfate 1 g p.o. 4 times daily #60
== END 2023-03-29 12:43 | disposition home or self-care (01) ==
LOC: ED 04:41
DX: E10.43 Type 1 diabetes mellitus with diabetic autonomic (poly)neuropathy (principal); K31.84 Gastroparesis; R11.2 Nausea with vomiting, unspecified; R82.71 Bacteriuria; Z79.899 Other long term (current) drug therapy
CPT/HCPCS: 36415; 80053; 81001; 81003; 81025; 83690; 85025; 87077; 87086; 93005; 96374; 96375; 96376; 99284

== ENCOUNTER 2023-04-24 12:22 | Emergency (ER) | payer OTHER ==
--- NOTE | 2023-04-24 12:36 | ED Physician Documentation ---
PD HPI NVD - Stated complaint Stated Complaint: N/V/BACK PX - Chief complaint Chief Complaint: Abd Pain - History obtained from History obtained from: Patient - History of Present Illness Timing - onset: How many weeks ago (2) Timing - duration: Weeks (2) Timing - details: Gradual onset, Still present (Noted onset of some nausea with occasional vomiting over the last 2 weeks. Intermittent right or left back pain. She has had considerable increase in the left flank pain the last 2 days. Unrelieved by ibuprofen.), Waxing and waning Associated symptoms: Other (bilateral flank pains and nausea/vomiting. No abd pain per se.). No: Fever, Abdominal pain Contributing factors: No: Sick contact, Bad food Improved by: No: Eating, Vomiting Worsened by: No: Eating, Moving (feels better to tremor her back muscles.) Similar symptoms before: Has not had sx before Recently seen: Not recently seen Review of Systems Constitutional: denies: Fever, Chills Nose: denies: Rhinorrhea / runny nose, Congestion Throat: denies: Sore throat Respiratory: denies: Cough GI: reports: Nausea, Vomiting. 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 HEENT: None Psych: Anxiety, Panic attacks Musculoskeletal: None Derm: None - Past Surgical History Past Surgical History: Yes General: Appendectomy - Present Medications Home Medications: Ambulatory Orders Medication Instructions Recorded Confirmed Insulin Lispro [Humalog] 52 - 56 units SUBQ DAILY 08/12/20 03/29/23 Metoclopramide [Reglan] 5 mg PO TID #90 tab 09/19/22 03/29/23 Mirtazapine [Remeron] 15 mg PO QPM #30 tab 09/19/22 03/29/23 Nitrofurantoin [Macrobid] 1 cap PO BID #10 cap 03/31/23 Sucralfate [Carafate] 1 gm PO ACHS #60 tablet 03/31/23 - Allergies Allergies/Adverse Reactions: Allergies Allergy/AdvReac Type Severity Reaction Status Date / Time ketorolac [From Toradol] Allergy Rash Verified 04/24/23 12:25 Milk Containing Products Allergy Unknown Verified 04/24/23 12:25 (Dairy) [Milk Containing Products] - Social History Does the pt smoke?: No Smoking Status: Never smoker Does the pt drink ETOH?: No Does the pt have substance abuse?: Yes - Immunizations Immunizations are current?: Yes - POLST Patient has POLST: No POLST Status: Full Code PD ED PE NORMAL - Vitals Vital signs reviewed: Yes - General General: Alert and oriented X 3, Well developed/nourished, Other (Appears in considerable discomfort and is actually tremoring on the bed as she states that makes her back pain feel better to be distracted.) - Cardiac Cardiac: No murmur. No: RRR (rapid heart rate, regular. ) - Respiratory Respiratory: No respiratory distress, Clear bilaterally - Abdomen Abdomen: Soft, Non tender - Back Back: No spinal TTP, Other - Derm Derm: Normal color, Warm and dry - Extremities Extremities: No edema, No calf tenderness / cord - Neuro Neuro: Alert and oriented X 3, No motor deficit, Normal speech Results - Vitals Vitals: Vital Signs - 24 hr 04/24/23 04/24/23 04/24/23 12:26 13:16 15:00 Temperature 36.6 C Heart Rate 130 H 110 H 102 H Respiratory 18 15 20 Rate Blood Pressure 170/90 H 127/86 H 129/73 O2 Saturation 98 95 100 04/24/23 04/24/23 04/24/23 15:15 17:00 18:34 Temperature Heart Rate 105 H 94 86 Respiratory 18 18 16 Rate Blood Pressure 118/76 128/112 H 109/72 O2 Saturation 100 100 100 Oxygen O2 Source Room air - Labs Labs: Laboratory Tests 04/24/23 04/24/23 04/24/23 13:00 13:00 13:00 WBC 8.6 RBC 5.43 H Hgb 13.9 Hct 42.6 MCV 78.5 L MCH 25.6 L MCHC 32.6 RDW 14.7 Plt Count 382 MPV 9.4 Neut # (Auto) 6.1 Lymph # (Auto) 1.9 Blaine # (Auto) 0.6 Eos # (Auto) 0.0 Baso # (Auto) 0.0 Absolute Nucleated RBC 0.00 Nucleated RBC % 0.0 Sodium 134 L Potassium 3.6 Chloride 92 L Carbon Dioxide 19 L Anion Gap 23.0 H BUN 22 H Creatinine 1.5 H Estimated GFR (MDRD) 41 L Glucose 156 H Calcium 10.0 Total Bilirubin 1.3 H AST 19 ALT 10 Alkaline Phosphatase 106 Total Protein 8.7 Albumin 5.2 Globulin 3.5 Albumin/Globulin Ratio 1.5 Lipase < 10 L Serum HCG, Qual NEGATIVE Urine Color Urine Clarity Urine pH Ur Specific [place] Urine Protein Urine Glucose (UA) Urine Ketones Urine Occult Blood Urine Nitrite Urine Bilirubin Urine Urobilinogen Ur Leukocyte Esterase Ur Microscopic Review Urine Culture Comments 04/24/23 15:45 WBC RBC Hgb Hct MCV MCH MCHC RDW Plt Count MPV Neut # (Auto) Lymph # (Auto) Blaine # (Auto) Eos # (Auto) Baso # (Auto) Absolute Nucleated RBC Nucleated RBC % Sodium Potassium Chloride Carbon Dioxide Anion Gap BUN Creatinine Estimated GFR (MDRD) Glucose Calcium Total Bilirubin AST ALT Alkaline Phosphatase Total Protein Albumin Globulin Albumin/Globulin Ratio Lipase Serum HCG, Qual Urine Color YELLOW Urine Clarity CLEAR Urine pH 5.5 Ur Specific [place] 1.015 Urine Protein TRACE Urine Glucose (UA) NEGATIVE Urine Ketones >=80 H Urine Occult Blood TRACE-INTA Urine Nitrite NEGATIVE Urine Bilirubin NEGATIVE Urine Urobilinogen 0.2 (NORMAL) Ur Leukocyte Esterase NEGATIVE Ur Microscopic Review NOT INDICATED Urine Culture Comments NOT INDICATED PD Medical Decision Making - ED course Complexity details: reviewed results (initial labs and UA are okay. Getting CT scan at time of shift change. ), considered differential (nasuea and some back pain for 2 weeks, increased a lot today. Consider UTI/ Pyelo, ureterolithiasis, pinched nerve, among other things. ), d/w patient Departure - Departure Disposition: 01 Home, Self Care Clinical Impression: Gastroparesis diabeticorum Condition: Good Comments: You were seen today for an apparent attack of your gastroparesis related to long-term diabetes. Follow-up with your order clerk and return if worse. Continue current medications. Forms: PCP List Discharge Date/Time: 04/24/23 18:36
[2023-04-24] MEDS ORDERED: ONDANSETRON 4 MG/2 ML VIAL IVP STA (12:45)
[2023-04-24] MEDS ORDERED: HYDROmorphone 1 MG/ML CARPUJECT IVP STA ×2 (12:45→14:00)
[2023-04-24] MEDS ORDERED: SODIUM CHLORIDE 0.9% 1,000 ML IV STA ×2 (12:45→14:00)
[2023-04-24 13:21] LABS: BASOPHILS % (AUTO) 0.5 %; HCT - HEMATOCRIT 42.6 % (37.0-47.0); HGB - HEMOGLOBIN 13.9 g/dL (12.0-16.0); LYMPHOCYTES # (AUTO) 1.9 10^3/uL (1.5-3.5); MEAN CORPUSCULAR HEMOGLOBIN 25.6 pg (27.0-31.0); MEAN CORPUSCULAR HGB CONC 32.6 g/dL (32.0-36.0); MEAN CORPUSCULAR VOLUME 78.5 fL (81.0-99.0); MEAN PLATELET VOLUME 9.4 fL (7.9-10.8); MONOCYTES # (AUTO) 0.6 10^3/uL (0.0-1.0); MONOCYTES % (AUTO) 7.3 %; NEUTROPHILS # (AUTO) 6.1 10^3/uL (1.5-6.6); NEUTROPHILS % (AUTO) 70.1 %; PLT - PLATELET COUNT 382 10^3/uL (130-450); RED BLOOD COUNT 5.43 10^6/uL (4.20-5.40); RED CELL DISTRIBUTION WIDTH 14.7 % (12.0-15.0); WHITE BLOOD COUNT 8.6 x10^3/uL (4.8-10.8)
[2023-04-24 13:58] LABS: ALBUMIN 5.2 g/dL (3.2-5.5)
[2023-04-24 13:59] LABS: ALBUMIN/GLOBULIN RATIO 1.5 (1.0-2.2); ALKALINE PHOSPHATASE 106 IU/L (42-121); ALT ALANINE AMINOTRANSFERASE 10 IU/L (10-60); AST ASPARTATE AMINOTRANSFERASE 19 IU/L (10-42); BILIRUBIN,TOTAL 1.3 mg/dL (0.2-1.0); BUN - BLOOD UREA NITROGEN 22 mg/dL (6-20); CARBON DIOXIDE - CO2 19 mmol/L (21-32); CHLORIDE 92 mmol/L (101-111); CREATININE 1.5 mg/dL (0.6-1.3); GFR - MDRD 41 (>89); GLUCOSE 156 mg/dL (74-104); LIPASE < 10 U/L (11-82); POTASSIUM 3.6 mmol/L (3.5-4.5); SODIUM 134 mmol/L (135-145); TOTAL PROTEIN 8.7 g/dL (6.4-8.9)
[2023-04-24 14:11] LABS: HCG,QUALITATIVE BLOOD NEGATIVE
[2023-04-24] MEDS ORDERED: iohexoL-300 100 ML VIAL IVP ONE (15:28)
--- NOTE | 2023-04-24 16:04 | CT Report ---
PROCEDURE: Abdomen/Pelvis W INDICATIONS: left flank pain for a week, nausea CONTRAST: 100ml omni 300 TECHNIQUE: After the administration of intravenous contrast, a CT scan of the abdomen and pelvis was performed. Images were recorded and evaluated at appropriate window settings. Reformats: coronal and sagittal. F or radiation dose reduction, the following was used: automated exposure control, adjustment of mA and /or kV according to patient size. COMPARISON: 08/12/2020 FINDINGS: Image quality: Excellent. Lung bases and heart: Unremarkable. Liver: No solid mass. Gallbladder and biliary tree: Is within normal limits Spleen: No splenomegaly. Pancreas: No pancreatic ductal dilation. Adrenals: No adrenal nodule. Kidneys and ureters: No hydronephrosis. No renal cystic lesion which requires follow up. No solid mas s. Bowel and peritoneum: Moderate gastric distention. Small bowel and colon are nondistended. Appendix i s not seen. No evidence of appendicitis. Lymph nodes: No central or retroperitoneal adenopathy. Vessels: No infrarenal aortic aneurysm. PELVIS Reproductive organs: Intrauterine device is present. Bladder: No abnormal wall thickening, accounting for underdistention. Pelvic lymph nodes: No pelvic adenopathy by size criteria. Bones: No aggressive osseous abnormality. Other: No significant ventral or inguinal hernia. IMPRESSION: 1. Gastric distention, which may indicate gastric outlet obstruction. Endoscopy is recommended for fu rther assessment. 2. Appendix is not seen. No evidence of appendicitis. Reviewed by: Samir Rowell MD on 04/24/2023 4:03 PM PST Approved by: Samir Rowell MD on 04/24/2023 4:03 PM PST Station ID: [id number]
[2023-04-24 16:09] LABS: GLUCOSE, URINE (UA) NEGATIVE (NEGATIVE); KETONES,URINE (UA) >=80 mg/dL (NEGATIVE); LEUKOCYTE ESTERASE, URINE NEGATIVE (NEGATIVE); NITRITE,URINE NEGATIVE (NEGATIVE); OCCULT BLOOD,URINE TRACE-INTA (NEGATIVE); PH,URINE 5.5 PH (5.0-7.5); PROTEIN,URINE TRACE mg/dL (NEGATIVE); UROBILINOGEN,URINE 0.2 (NORMAL) E.U./dL (NORMAL)
[2023-04-24 16:13] LABS: BILIRUBIN,URINE NEGATIVE (NEGATIVE); CLARITY,URINE CLEAR (CLEAR); ICTOTEST,URINE NEGATIVE
--- NOTE | 2023-04-24 16:20 | ED Physician Documentation ---
ED Addendum - Addendum Addendum: 04/24/23 16:20 27-year-old woman signed out to me by Dr. Marquez at 3 PM shift change. Briefly she has a history of diabetic gastroparesis and presented with abdominal and back pain with vomiting. She is doing better now. Labs reviewed, unremarkable CBC, CMP notable for prerenal azotemia and mild acidosis consistent with dehydration. Urinalysis with ketosis but no infection. Dr. Marquez had ordered a 6 contrast-enhanced CT which is interpreted independently by me and the final read reviewed. Shows gastric distention. This is not surprising given her history and she has already seen GI and is being worked up for possible gastric pacemaker placement for her gastroparesis. She is feeling better now so will trial oral fluids. 04/24/23 18:18 She had a bit of a relapse with her symptoms after some oral fluids and was medicated again with IV droperidol and Reglan and on reevaluation at this time is doing much better and requested discharge. She declined any prescription medications. Disposition: Discharged home Condition: Stable Diagnosis: 1. Abdominal pain 2. Type 1 diabetes 3. Gastroparesis
[2023-04-24] MEDS ORDERED: METOCLOPRAMIDE 10 MG/2 ML VIAL IVP STA (16:44)
[2023-04-24] MEDS ORDERED: DROPERIDOL 5 MG/2 ML VIAL IVP STA (16:44)
[2023-04-24 17:54] VITALS: O2SAT 100
[2023-04-24 18:40] VITALS: BP 109/72
== END 2023-04-24 18:36 | disposition home or self-care (01) ==
LOC: ED 12:22
DX: K31.89 Other diseases of stomach and duodenum (principal); E10.43 Type 1 diabetes mellitus with diabetic autonomic (poly)neuropathy; K31.84 Gastroparesis; E88.89 Other specified metabolic disorders; Z79.4 Long term (current) use of insulin
CPT/HCPCS: 36415; 74177; 80053; 81003; 83690; 84703; 85025; 96374; 96375; 96376; 99284; J1170; J2765; Q9967; 81001; 87086

== ENCOUNTER 2023-05-24 09:32 | Emergency (ER) | payer OTHER ==
--- NOTE | 2023-05-24 09:55 | ED Physician Documentation ---
PD HPI NVD - Stated complaint Stated Complaint: VOMITING/ABD/BACK PX - Chief complaint Chief Complaint: Abd Pain - History obtained from History obtained from: Patient - History of Present Illness Timing - onset: How many days ago (N/V and cramping abd pain for 2 days. Came to ED but was improving some and there was wait so went home, and improved enough with a shower and PO Reglan to sleep most of night. Symptoms worse again this morning.) Timing - duration: Days Timing - details: Gradual onset, Still present, Waxing and waning Associated symptoms: Abdominal pain, Loss of appetite. No: Fever, Hematemesis, Near syncope / syncope Contributing factors: Diabetes, Other (does have regular cannibis use but she states believes is not the cause.). No: Sick contact, Bad food Improved by: Other (distracting herself by bouncing up and down slightly, does help.). No: Vomiting Worsened by: Eating Similar symptoms before: No diagnosis (presumed gastroparesis as has had normal scans/imaging/labs on several visits in the past.) Recently seen: Emergency Dept Review of Systems Constitutional: denies: Fever, Chills Nose: denies: Rhinorrhea / runny nose, Congestion Throat: denies: Sore throat Respiratory: denies: Cough GI: reports: Abdominal Pain, Nausea, Vomiting. 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 HEENT: None Psych: Anxiety, Panic attacks Musculoskeletal: None Derm: None - Past Surgical History Past Surgical History: Yes General: Appendectomy - Present Medications Home Medications: Ambulatory Orders Medication Instructions Recorded Confirmed Insulin Lispro [Humalog] 52 - 56 units SUBQ DAILY 08/12/20 05/24/23 Metoclopramide [Reglan] 5 mg PO TID #90 tab 09/19/22 05/24/23 Famotidine [Pepcid] 20 mg PO DAILY #30 tablet 05/24/23 Omeprazole Magnesium 20 mg PO DAILY 05/24/23 05/24/23 Ondansetron Odt [Zofran] 4 mg TL Q6H PRN #20 tablet 05/24/23 - Allergies Allergies/Adverse Reactions: Allergies Allergy/AdvReac Type Severity Reaction Status Date / Time ketorolac [From Toradol] Allergy Rash Verified 05/24/23 19:00 Milk Containing Products Allergy Unknown Verified 05/24/23 19:00 (Dairy) [Milk Containing Products] - Social History Does the pt smoke?: No Smoking Status: Never smoker Does the pt drink ETOH?: No Does the pt have substance abuse?: Yes Substance Use and Type: Marijuana - Immunizations Immunizations are current?: Yes - POLST Patient has POLST: No POLST Status: Full Code PD ED PE NORMAL - Vitals Vital signs reviewed: Yes - General General: Alert and oriented X 3, Well developed/nourished, Other (very anxious and is shaking and bouncing herself as distraction/response to anxiety. She is aware purposely doing, as makes herself feel better. ) - HEENT HEENT: Pharynx benign - Neck Neck: Supple, no meningeal sign, No adenopathy - Cardiac Cardiac: No murmur, No rub. No: RRR (tachycardic but regular) - Respiratory Respiratory: No respiratory distress, Clear bilaterally - Abdomen Abdomen: Normal bowel sounds, Soft, Non distended, No organomegaly, Other (tender central abd to epigastric area with some guarding but no percussion tenderness. Lower abd not tender. ) - Female Female : Deferred - Rectal Rectal: Deferred - Back Back: No CVA TTP - Derm Derm: Normal color, Warm and dry - Neuro Neuro: Alert and oriented X 3, No motor deficit, No sensory deficit, Normal speech Eye Opening: Spontaneous Motor: Obeys Commands Verbal: Oriented GCS Score: 15 Results - Vitals Vitals: Vital Signs - 24 hr 05/24/23 05/24/23 05/24/23 09:41 11:53 13:29 Temperature 36 C L 36.6 C Heart Rate 103 H 56 L 69 Respiratory 22 20 Rate Blood Pressure 126/69 92/54 L 123/61 O2 Saturation 99 100 99 Oxygen O2 Source Room air - Labs Labs: Laboratory Tests 05/24/23 05/24/23 10:16 10:16 WBC 6.0 RBC 4.38 Hgb 11.1 L Hct 36.7 L MCV 83.8 MCH 25.3 L MCHC 30.2 L RDW 15.1 H Plt Count 398 MPV 8.7 Neut # (Auto) 3.3 Lymph # (Auto) 2.0 Daniels # (Auto) 0.5 Eos # (Auto) 0.1 Baso # (Auto) 0.0 Absolute Nucleated RBC 0.00 Nucleated RBC % 0.0 Sodium 141 Potassium 3.6 Chloride 106 Carbon Dioxide 27 Anion Gap 8.0 BUN 13 Creatinine 0.6 Estimated GFR (MDRD) 119 Glucose 138 H Calcium 9.1 Magnesium 1.7 Total Bilirubin 0.6 AST 21 ALT 13 Alkaline Phosphatase 83 Total Protein 6.9 Albumin 4.3 Globulin 2.6 Albumin/Globulin Ratio 1.7 Lipase < 10 L PD Medical Decision Making - ED course Complexity details: reviewed results (CBC and electrolytes are in normal ranges. ), re-evaluated patient (Has improved well with fluids, Inapsine and valium to help nausea and anxiety/muscle relaxant. Allergy to Toradol. She is taking sips of fluids and had slept couple of hours here in ED without vomiting, so seems improved for trying to go home. ), considered differential (has had similar with Dx of gastroparesis. However does get very anxious with the episodes so consider hyperemesis related to other causes, such as cannibis, which she states uses regularly. ), d/w patient Departure - Departure Disposition: 01 Home, Self Care Clinical Impression: Abdominal pain, Nausea and vomiting Condition: Stable Record reviewed to determine appropriate education?: Yes Instructions: ED Nausea Vomiting Follow-Up: CARL CLARKE MD [Primary Care Provider] - Prescriptions: Famotidine [Pepcid] 20 mg PO DAILY #30 tablet Ondansetron Odt [Zofran] 4 mg TL Q6H PRN #20 tablet PRN Reason: Nausea / Vomiting Comments: Small frequent fluids today and bland food today. Add Famotidine daily for acid reduction ongoing. Nausea meds as needed (Zofran ODT, Reglan or suppository). Follow up PMD for further treatment plans. Forms: PCP List Discharge Date/Time: 05/24/23 13:29
[2023-05-24] MEDS: DROPERIDOL 5 MG/2 ML VIAL IVP STA (10:08)
[2023-05-24] MEDS: SODIUM CHLORIDE 0.9% 1,000 ML IV STA (10:08)
[2023-05-24] MEDS: HYDROmorphone 0.5 MG/0.5 ML SYRINGE IVP STA (10:08)
[2023-05-24 10:27] LABS: BASOPHILS % (AUTO) 0.7 %; EOSINOPHILS # (AUTO) 0.1 10^3/uL (0.0-0.7); EOSINOPHILS % (AUTO) 1.3 %; HCT - HEMATOCRIT 36.7 % (37.0-47.0); HGB - HEMOGLOBIN 11.1 g/dL (12.0-16.0); LYMPHOCYTES % (AUTO) 33.7 %; MEAN CORPUSCULAR HEMOGLOBIN 25.3 pg (27.0-31.0); MEAN CORPUSCULAR HGB CONC 30.2 g/dL (32.0-36.0); MEAN CORPUSCULAR VOLUME 83.8 fL (81.0-99.0); MEAN PLATELET VOLUME 8.7 fL (7.9-10.8); MONOCYTES # (AUTO) 0.5 10^3/uL (0.0-1.0); MONOCYTES % (AUTO) 9.1 %; NEUTROPHILS # (AUTO) 3.3 10^3/uL (1.5-6.6); PLT - PLATELET COUNT 398 10^3/uL (130-450); RED BLOOD COUNT 4.38 10^6/uL (4.20-5.40); RED CELL DISTRIBUTION WIDTH 15.1 % (12.0-15.0)
[2023-05-24 10:51] LABS: ALBUMIN 4.3 g/dL (3.2-5.5); ALBUMIN/GLOBULIN RATIO 1.7 (1.0-2.2); ALKALINE PHOSPHATASE 83 IU/L (42-121); ALT ALANINE AMINOTRANSFERASE 13 IU/L (10-60); AST ASPARTATE AMINOTRANSFERASE 21 IU/L (10-42); BILIRUBIN,TOTAL 0.6 mg/dL (0.2-1.0); BUN - BLOOD UREA NITROGEN 13 mg/dL (6-20); CALCIUM 9.1 mg/dL (8.5-10.3); CARBON DIOXIDE - CO2 27 mmol/L (21-32); CHLORIDE 106 mmol/L (101-111); CREATININE 0.6 mg/dL (0.6-1.3); GFR - MDRD 119 (>89); GLUCOSE 138 mg/dL (74-104); LIPASE < 10 U/L (11-82); MAGNESIUM 1.7 mg/dL (1.7-2.3); POTASSIUM 3.6 mmol/L (3.5-4.5); SODIUM 141 mmol/L (135-145); TOTAL PROTEIN 6.9 g/dL (6.4-8.9)
[2023-05-24 13:33] VITALS: BP 123/61; O2SAT 99
== END 2023-05-24 13:29 | disposition home or self-care (01) ==
LOC: ED 09:32
DX: R11.2 Nausea with vomiting, unspecified (principal); R10.9 Unspecified abdominal pain; E11.9 Type 2 diabetes mellitus without complications; Z79.4 Long term (current) use of insulin
CPT/HCPCS: 36415; 80053; 83690; 83735; 85025; 96374; 99283

== ENCOUNTER 2023-05-24 18:37 | Emergency (ER) | payer OTHER ==
[2023-05-24] MEDS: LORazepam 2 MG/ML VIAL IM STA (19:38)
--- NOTE | 2023-05-24 19:48 | ED Physician Documentation ---
History of Present Illness - Stated complaint Stated Complaint: CHEST PX,NAUSEA - Chief complaint Chief Complaint: Cardiac - History obtained from History obtained from: Patient, Family - History of Present Illness Timing: Today Pain level max: 8 Pain level now: 8 - Additonal information Additional information: Patient is a 27-year-old female who presents to the emergency department complaint of abdominal pain, nausea and vomiting today. She is a diabetic on an insulin pump. She states that she had some chest pain today as well. No fevers. No chills. Denies any possibility of . Was seen here earlier for same. She states she did not feel any better when she left. Patient had a panic attack during her blood draw and I was called to the bedside. Review of Systems Constitutional: denies: Fever, Chills Nose: denies: Rhinorrhea / runny nose, Congestion Throat: denies: Sore throat Cardiac: denies: Chest pain / pressure, Palpitations Respiratory: denies: Dyspnea, Cough GI: reports: Abdominal Pain (Diffuse, crampy), Nausea, Vomiting, Hematemesis, Bloody / black stool. 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: None Psych: Anxiety, Panic attacks Musculoskeletal: None Derm: None - Past Surgical History Past Surgical History: Yes General: Appendectomy - Present Medications Home Medications: Ambulatory Orders Medication Instructions Recorded Confirmed Insulin Lispro [Humalog] 52 - 56 units SUBQ DAILY 08/12/20 05/24/23 Metoclopramide [Reglan] 5 mg PO TID #90 tab 09/19/22 05/24/23 Famotidine [Pepcid] 20 mg PO DAILY #30 tablet 05/24/23 Omeprazole Magnesium 20 mg PO DAILY 05/24/23 05/24/23 Ondansetron Odt [Zofran] 4 mg TL Q6H PRN #20 tablet 05/24/23 - Allergies Allergies/Adverse Reactions: Allergies Allergy/AdvReac Type Severity Reaction Status Date / Time ketorolac [From Toradol] Allergy Rash Verified 05/24/23 19:00 Milk Containing Products Allergy Unknown Verified 05/24/23 19:00 (Dairy) [Milk Containing Products] - Social History Does the pt smoke?: No Smoking Status: Never smoker Does the pt drink ETOH?: No Does the pt have substance abuse?: Yes - Immunizations Immunizations are current?: Yes - POLST Patient has POLST: No POLST Status: Full Code PD ED PE NORMAL - Vitals Vital signs reviewed: Yes - General General: Alert and oriented X 3, No acute distress - HEENT HEENT: Moist mucous membranes - Neck Neck: Supple, no meningeal sign - Cardiac Cardiac: RRR, Strong equal pulses - Respiratory Respiratory: No respiratory distress, Clear bilaterally - Abdomen Abdomen: Soft, Non tender, Non distended - Derm Derm: Warm and dry - Extremities Extremities: No edema, No calf tenderness / cord - Neuro Neuro: Alert and oriented X 3 - Psych Psych: Normal mood, Normal affect Results - Vitals Vitals: Vital Signs - 24 hr 05/24/23 18:57 Temperature 36.6 C Heart Rate 117 H Respiratory 20 Rate Blood Pressure 123/79 O2 Saturation 100 Oxygen O2 Source Room air - EKG (time done) 2023 EKG releavant findings:: EKG personally interpreted by author of this note. Relevant findings are: Rate: Rate (enter#) (94) Rhythm: NSR Parker: Normal Intervals: Normal [place] QRS: Normal Ischemia: Normal ST segments - Labs Labs: Laboratory Tests 05/24/23 05/24/23 05/24/23 20:00 20:00 20:00 WBC 9.4 RBC 4.18 L Hgb 10.7 L Hct 35.3 L MCV 84.4 MCH 25.6 L MCHC 30.3 L RDW 15.0 Plt Count 408 MPV 8.8 Neut # (Auto) 8.0 H Lymph # (Auto) 1.0 L Rab[place] # (Auto) 0.4 Eos # (Auto) 0.0 Baso # (Auto) 0.0 Absolute Nucleated RBC 0.00 Nucleated RBC % 0.0 VBG pH 7.347 VBG pCO2 42.2 VBG pO2 150.7 H VBG HCO3 22.6 L VBG Total CO2 23.9 L VBG O2 Saturation 98.3 H VBG Base Excess -2.9 L Sodium 141 Potassium 3.3 L Chloride 104 Carbon Dioxide 22 Anion Gap 15.0 H BUN 13 Creatinine 0.6 Estimated GFR (MDRD) 119 Glucose 220 H POC Whole Bld Glucose Calcium 9.3 Total Bilirubin 0.7 AST 23 ALT 14 Alkaline Phosphatase 82 Total Protein 7.0 Albumin 4.4 Globulin 2.6 Albumin/Globulin Ratio 1.7 Lipase < 10 L Serum HCG, Qual Serum Ketones NEGATIVE 05/24/23 05/24/23 20:00 20:41 WBC RBC Hgb Hct MCV MCH MCHC RDW Plt Count MPV Neut # (Auto) Lymph # (Auto) [place] # (Auto) Eos # (Auto) Baso # (Auto) Absolute Nucleated RBC Nucleated RBC % VBG pH VBG pCO2 VBG pO2 VBG HCO3 VBG Total CO2 VBG O2 Saturation VBG Base Excess Sodium Potassium Chloride Carbon Dioxide Anion Gap BUN Creatinine Estimated GFR (MDRD) Glucose POC Whole Bld Glucose 225 H Calcium Total Bilirubin AST ALT Alkaline Phosphatase Total Protein Albumin Globulin Albumin/Globulin Ratio Lipase Serum HCG, Qual NEGATIVE Serum Ketones PD Medical Decision Making - ED course Complexity details: reviewed results, re-evaluated patient, considered differential, d/w patient ED course: Patient is well-appearing, nontoxic. Afebrile. Nausea and vomiting improved. Pain improved with a dose of Dilaudid, still complaining of abdominal pain, given this is her second visit today for this, we will order a CT scan. Assuming the patient can tolerate p.o., feels improved and CT does not show any acute abnormalities, she likely can be discharged home with medication. Not in DKA at this time. Patient is signed out to Dr. Sanderson. This document was made in part using voice recognition software. While efforts are made to proofread this document, sound alike and grammatical errors may occur. Departure - Departure Clinical Impression: Vomiting Qualifiers: Vomiting type: unspecified Nausea presence: with nausea Qualified Code(s): R11.2 - Nausea with vomiting, unspecified Diabetes Qualifiers: Diabetes mellitus type: type 1 Diabetes mellitus complication status: without complication Qualified Code(s): E10.9 - Type 1 diabetes mellitus without complications Condition: Stable Forms: PCP List
[2023-05-24] MEDS: SODIUM CHLORIDE 0.9% 1,000 ML IV STA ×2 (20:04→23:30)
[2023-05-24 20:09] LABS: BASOPHILS % (AUTO) 0.4 %; EOSINOPHILS % (AUTO) 0.1 %; HCT - HEMATOCRIT 35.3 % (37.0-47.0); HGB - HEMOGLOBIN 10.7 g/dL (12.0-16.0); LYMPHOCYTES % (AUTO) 10.3 %; MEAN CORPUSCULAR HEMOGLOBIN 25.6 pg (27.0-31.0); MEAN CORPUSCULAR HGB CONC 30.3 g/dL (32.0-36.0); MEAN CORPUSCULAR VOLUME 84.4 fL (81.0-99.0); MEAN PLATELET VOLUME 8.8 fL (7.9-10.8); MONOCYTES # (AUTO) 0.4 10^3/uL (0.0-1.0); MONOCYTES % (AUTO) 4.1 %; NEUTROPHILS % (AUTO) 84.8 %; PLT - PLATELET COUNT 408 10^3/uL (130-450); RED BLOOD COUNT 4.18 10^6/uL (4.20-5.40); WHITE BLOOD COUNT 9.4 x10^3/uL (4.8-10.8)
[2023-05-24 20:13] LABS: VBG BASE EXCESS -2.9 mmol/L (-2 - +2); VBG HCO3 22.6 mmol/L (23-28); VBG OXYGEN SATURATION 98.3 % (60-80); VBG PCO2 42.2 mmHg (41-51); VBG PH 7.347 (7.31-7.41); VBG PO2 150.7 mmHg (25-47); VBG TOTAL CO2 23.9 mmol/L (24-29)
[2023-05-24] MEDS: HYDROmorphone 1 MG/ML CARPUJECT IVP STA (20:24)
[2023-05-24 20:25] LABS: ALBUMIN 4.4 g/dL (3.2-5.5); ALBUMIN/GLOBULIN RATIO 1.7 (1.0-2.2); ALKALINE PHOSPHATASE 82 IU/L (42-121); ALT ALANINE AMINOTRANSFERASE 14 IU/L (10-60); AST ASPARTATE AMINOTRANSFERASE 23 IU/L (10-42); BILIRUBIN,TOTAL 0.7 mg/dL (0.2-1.0); BUN - BLOOD UREA NITROGEN 13 mg/dL (6-20); CALCIUM 9.3 mg/dL (8.5-10.3); CARBON DIOXIDE - CO2 22 mmol/L (21-32); CHLORIDE 104 mmol/L (101-111); CREATININE 0.6 mg/dL (0.6-1.3); GFR - MDRD 119 (>89); GLUCOSE 220 mg/dL (74-104); LIPASE < 10 U/L (11-82); POTASSIUM 3.3 mmol/L (3.5-4.5); SODIUM 141 mmol/L (135-145)
[2023-05-24 20:39] LABS: KETONES, SERUM (ACETEST) NEGATIVE (NEGATIVE)
[2023-05-24] MEDS ORDERED: iohexoL-300 100 ML VIAL ONE (21:14)
[2023-05-24 21:25] LABS: HCG,QUALITATIVE BLOOD NEGATIVE
[2023-05-24] MEDS: iohexoL-300 100 ML VIAL IVP ONE (23:13)
[2023-05-24 23:26] LABS: BILIRUBIN,URINE NEGATIVE (NEGATIVE); GLUCOSE, URINE (UA) >=1000 mg/dL (NEGATIVE); KETONES,URINE (UA) 40 mg/dL (NEGATIVE); LEUKOCYTE ESTERASE, URINE NEGATIVE (NEGATIVE); NITRITE,URINE NEGATIVE (NEGATIVE); OCCULT BLOOD,URINE NEGATIVE (NEGATIVE); PROTEIN,URINE NEGATIVE (NEGATIVE); UROBILINOGEN,URINE 0.2 (NORMAL) E.U./dL (NORMAL)
[2023-05-24 23:27] LABS: CLARITY,URINE CLEAR (CLEAR)
[2023-05-24 23:28] LABS: HCG UR QUAL NEGATIVE
--- NOTE | 2023-05-24 23:35 | CT Report ---
PROCEDURE: CT abdomen pelvis with contrast INDICATIONS: diffuse abd pain, vomiting TECHNIQUE: Helical axial CT of the abdomen and pelvis was obtained after intravenous contrast adminis tration and reformatted in multiple planes. Radiation dose reduction was achieved using automated exp osure control or adjustment of mA and/or kV according to patient size. COMPARISON: 04/24/2023 FINDINGS: Lower thorax: The lung bases are clear. Heart size normal. No hiatal hernia. Liver: Normal in size and attenuation. No contour deformity present. Biliary system: No calcified cholelithiasis or pericholecystic inflammation. No evidence of bile du ct dilatation. Pancreas: Unremarkable without mass or inflammation evident. Spleen: Normal in size and density. Adrenals: Normal morphology and density. Reproductive system: Unremarkable as visualized. Intrauterine device in good position Urinary system: Normal renal size and attenuation. No renal calculi, hydronephrosis, or solid mass p resent. Urinary bladder unremarkable. Gastrointestinal system: The bowel appears unremarkable with no evidence of bowel obstruction or inf lammation. The stomach appears unremarkable. Appendix: Appendectomy Peritoneal spaces: No mesenteric or retroperitoneal adenopathy. No free air. No free fluid. Vasculature: The IVC, aorta and iliac vasculature are unremarkable. Abdominal wall: Abdominal wall is intact without evidence of ventral or inguinal hernias. Musculoskeletal: Normal bone mineralization. No acute fractures. IMPRESSION: Unremarkable CT of the abdomen and pelvis Reviewed by: Asher Smith MD on 05/24/2023 10:33 PM [place] Approved by: Asher Smith MD on 05/24/2023 10:33 PM [place] Station ID: [id number]
[2023-05-25] MEDS: DROPERIDOL 5 MG/2 ML VIAL IVP STA (00:29)
--- NOTE | 2023-05-25 01:08 | ED Physician Documentation ---
ED Addendum - Addendum Addendum: 05/25/23 01:36 CT negative for acute findings. Requesting discharge paperwork to go home. She states that she has plenty of antinausea medications. ED return precautions discussed.
[2023-05-25] MEDS: oxyCODONE 5 MG TABLET PO STA (01:21)
[2023-05-25 01:47] VITALS: BP 121/52; O2SAT 97
== END 2023-05-25 01:45 | disposition home or self-care (01) ==
LOC: ED 18:37
DX: R11.2 Nausea with vomiting, unspecified (principal); R07.9 Chest pain, unspecified; E11.9 Type 2 diabetes mellitus without complications; Z96.41 Presence of insulin pump (external) (internal); Z79.4 Long term (current) use of insulin; R10.9 Unspecified abdominal pain
CPT/HCPCS: 36415; 74177; 80053; 81003; 81025; 82009; 82803; 83690; 83735; 84703; 85025; 93005; 96374; 96375; 99283; 99284; A9270; J1170; J2060; Q9967; 81001; 87086

== ENCOUNTER 2023-07-13 08:57 | Emergency (ER) | payer OTHER ==
[2023-07-13 09:36] LABS: ABG PCO2 32 mmHg (34-45); ABG PH 7.43 (7.35-7.45); ABG PO2 98 mmHg (80-100)
[2023-07-13 09:37] LABS: ABG BASE EXCESS -2.6 mmol/L (-2.0-3.0); ABG HCO3 20.7 mmol/L (22.0-26.0); ABG OXYGEN SATURATION 98 % (94-98); ABG TCO2 21.7 MMOL/L (21.0-29.0); ALLEN TEST POSITIVE
[2023-07-13] MEDS: DROPERIDOL 5 MG/2 ML VIAL IVP STA (09:44)
[2023-07-13] MEDS: SODIUM CHLORIDE 0.9% 1,000 ML IV STA (09:53)
--- NOTE | 2023-07-13 09:59 | ED Physician Documentation ---
PD HPI NVD - Stated complaint Stated Complaint: ABD/BACK PX - Chief complaint Chief Complaint: Abd Pain - History obtained from History obtained from: Patient - Additonal information Additional information: The patient comes to the emergency department chief complaint of flareup of her diabetic gastroparesis. She states has been going on for about a week and she just does not feel like she can handle it at home anymore. She is not keeping anything down, including liquids. She states that she usually tries to blow over at home on its own but has not been going away. She states her blood sugars have actually been Reasonably good and that she does not feels that she is in DKA. The patient denies any features of this bout that are new or different, and states that this episode feels similar to her prior episodes of gastroparesis flareup. She has some mild upper abdominal pain which is usual. No other complaints at this time. 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 HEENT: None Psych: Anxiety, Panic attacks Musculoskeletal: None Derm: None - Past Surgical History Past Surgical History: Yes General: Appendectomy - Present Medications Home Medications: Ambulatory Orders Medication Instructions Recorded Confirmed Insulin Lispro [Humalog] 52 - 56 units SUBQ DAILY 08/12/20 07/13/23 Metoclopramide [Reglan] 5 mg PO TID #90 tab 09/19/22 07/13/23 Famotidine [Pepcid] 20 mg PO DAILY #30 tablet 05/24/23 07/13/23 Omeprazole Magnesium 20 mg PO DAILY 05/24/23 07/13/23 Ondansetron Odt [Zofran] 4 mg TL Q6H PRN #20 tablet 05/24/23 07/13/23 - Allergies Allergies/Adverse Reactions: Allergies Allergy/AdvReac Type Severity Reaction Status Date / Time ketorolac [From Toradol] Allergy Rash Verified 07/13/23 09:10 Milk Containing Products Allergy Unknown Verified 07/13/23 09:10 (Dairy) [Milk Containing Products] - Social History Does the pt smoke?: No Smoking Status: Never smoker Does the pt drink ETOH?: No Does the pt have substance abuse?: Yes - Immunizations Immunizations are current?: Yes - POLST Patient has POLST: No POLST Status: Full Code PD ED PE NORMAL - Vitals Vital signs reviewed: Yes - General General: Alert and oriented X 3, Other (The patient is not in distress but appears uncomfortable.) - HEENT HEENT: Atraumatic, EOMI, Moist mucous membranes - Neck Neck: Supple, no meningeal sign - Cardiac Cardiac: No murmur, Other (Regular rhythm, tachycardic rate.) - Respiratory Respiratory: No respiratory distress, Clear bilaterally, Other (No Kussmaul respirations.) - Abdomen Abdomen: Soft, Non tender, Non distended - Derm Derm: Normal color, Warm and dry, No rash - Extremities Extremities: No deformity, No edema - Neuro Neuro: Other (Alert, appropriate, grossly intact.) - Psych Psych: Normal mood, Normal affect Results - Vitals Vitals: Vital Signs - 24 hr 07/13/23 07/13/23 09:08 11:10 Temperature 36.2 C L Heart Rate 139 H 90 Respiratory 20 14 Rate Blood Pressure 116/91 H 98/54 L O2 Saturation 99 98 Oxygen O2 Source Room air - Labs Labs: Laboratory Tests 07/13/23 07/13/23 07/13/23 09:29 09:45 09:45 WBC 11.9 H RBC 5.28 Hgb 13.6 Hct 41.4 MCV 78.4 L MCH 25.8 L MCHC 32.9 RDW 14.3 Plt Count 310 MPV 9.2 Neut # (Auto) 9.4 H Lymph # (Auto) 1.7 Chambers # (Auto) 0.8 Eos # (Auto) 0.0 Baso # (Auto) 0.1 Absolute Nucleated RBC 0.00 Nucleated RBC % 0.0 Bld Gas Analysis Time 0934 Sample Site RIGHT RADIAL ABG pH 7.43 ABG pCO2 32 L ABG pO2 98 ABG HCO3 20.7 L ABG Total CO2 21.7 ABG O2 Saturation 98 ABG Base Excess -2.6 L Omar Test POSITIVE Room Air YES Sodium 131 L Potassium 3.5 Chloride 87 L Carbon Dioxide 25 Anion Gap 19.0 H BUN 28 H Creatinine 1.2 Estimated GFR (MDRD) 53 L Glucose 196 H Calcium 10.2 Total Bilirubin 1.6 H AST 15 ALT 9 L Alkaline Phosphatase 93 Total Protein 8.1 Albumin 5.0 Globulin 3.1 Albumin/Globulin Ratio 1.6 Lipase < 10 L Serum Ketones MODERATE H PD Medical Decision Making - ED course Complexity details: reviewed old records, reviewed results, re-evaluated patient, considered differential, d/w patient, d/w family ED course: The patient was treated with droperidol and a liter of IV fluid. She did report relief of nausea with the droperidol. ABG showed a normal pH at 7.43. The patient's anion gap was normal and She had moderate ketones. I felt the patient was stable for discharge home. She is feeling much better after fluids and droperidol. We discussed the usual indications for follow-up and return. Departure - Departure Disposition: 01 Home, Self Care Clinical Impression: Gastroparesis due to DM Condition: Stable Instructions: ED Diabetic Gastroparesis Comments: Overall, your labs look fairly good today and you are not in DKA. Your blood sugar was 196 here. You have been treated with a liter of IV fluid and some IV antinausea medicine. Please be sure to drink plenty of water at home and take your Zofran as needed. Please follow-up with your primary doctor as needed. Forms: PCP List Discharge Date/Time: 07/13/23 11:53
[2023-07-13 10:04] LABS: BASOPHILS # (AUTO) 0.1 10^3/uL (0.0-0.1); BASOPHILS % (AUTO) 0.4 %; HCT - HEMATOCRIT 41.4 % (37.0-47.0); HGB - HEMOGLOBIN 13.6 g/dL (12.0-16.0); KETONES, SERUM (ACETEST) MODERATE (NEGATIVE); LYMPHOCYTES # (AUTO) 1.7 10^3/uL (1.5-3.5); MEAN CORPUSCULAR HEMOGLOBIN 25.8 pg (27.0-31.0); MEAN CORPUSCULAR HGB CONC 32.9 g/dL (32.0-36.0); MEAN CORPUSCULAR VOLUME 78.4 fL (81.0-99.0); MEAN PLATELET VOLUME 9.2 fL (7.9-10.8); MONOCYTES # (AUTO) 0.8 10^3/uL (0.0-1.0); MONOCYTES % (AUTO) 6.3 %; NEUTROPHILS # (AUTO) 9.4 10^3/uL (1.5-6.6); PLT - PLATELET COUNT 310 10^3/uL (130-450); RED BLOOD COUNT 5.28 10^6/uL (4.20-5.40); RED CELL DISTRIBUTION WIDTH 14.3 % (12.0-15.0); WHITE BLOOD COUNT 11.9 x10^3/uL (4.8-10.8)
[2023-07-13 10:16] LABS: LIPASE < 10 U/L (11-82)
[2023-07-13 10:17] LABS: ALBUMIN/GLOBULIN RATIO 1.6 (1.0-2.2); ALKALINE PHOSPHATASE 93 IU/L (42-121); ALT ALANINE AMINOTRANSFERASE 9 IU/L (10-60); AST ASPARTATE AMINOTRANSFERASE 15 IU/L (10-42); BILIRUBIN,TOTAL 1.6 mg/dL (0.2-1.0); BUN - BLOOD UREA NITROGEN 28 mg/dL (6-20); CALCIUM 10.2 mg/dL (8.5-10.3); CARBON DIOXIDE - CO2 25 mmol/L (21-32); CHLORIDE 87 mmol/L (101-111); CREATININE 1.2 mg/dL (0.6-1.3); GFR - MDRD 53 (>89); GLUCOSE 196 mg/dL (74-104); POTASSIUM 3.5 mmol/L (3.5-4.5); SODIUM 131 mmol/L (135-145); TOTAL PROTEIN 8.1 g/dL (6.4-8.9)
[2023-07-13 11:37] VITALS: BP 98/54; O2SAT 98
== END 2023-07-13 11:53 | disposition home or self-care (01) ==
LOC: ED 08:57
DX: E10.43 Type 1 diabetes mellitus with diabetic autonomic (poly)neuropathy (principal)
CPT/HCPCS: 36415; 36600; 80053; 82009; 82803; 83690; 85025; 96374; 99284

== ENCOUNTER 2023-08-16 09:42 | Emergency (ER) | payer OTHER ==
[2023-08-16 10:57] LABS: BASOPHILS # (AUTO) 0.1 10^3/uL (0.0-0.1); BASOPHILS % (AUTO) 0.4 %; EOSINOPHILS % (AUTO) 0.1 %; HCT - HEMATOCRIT 36.3 % (37.0-47.0); HGB - HEMOGLOBIN 11.8 g/dL (12.0-16.0); LYMPHOCYTES # (AUTO) 1.7 10^3/uL (1.5-3.5); LYMPHOCYTES % (AUTO) 9.9 %; MEAN CORPUSCULAR HEMOGLOBIN 26.9 pg (27.0-31.0); MEAN CORPUSCULAR HGB CONC 32.5 g/dL (32.0-36.0); MEAN CORPUSCULAR VOLUME 82.7 fL (81.0-99.0); MEAN PLATELET VOLUME 9.1 fL (7.9-10.8); MONOCYTES # (AUTO) 0.8 10^3/uL (0.0-1.0); MONOCYTES % (AUTO) 4.8 %; NEUTROPHILS # (AUTO) 14.7 10^3/uL (1.5-6.6); NEUTROPHILS % (AUTO) 84.5 %; PLT - PLATELET COUNT 391 10^3/uL (130-450); RED BLOOD COUNT 4.39 10^6/uL (4.20-5.40); RED CELL DISTRIBUTION WIDTH 16.2 % (12.0-15.0); WHITE BLOOD COUNT 17.4 x10^3/uL (4.8-10.8)
[2023-08-16 11:06] LABS: VBG HCO3 20.9 mmol/L (23-28); VBG PCO2 37.8 mmHg (41-51); VBG PH 7.361 (7.31-7.41); VBG TOTAL CO2 22.1 mmol/L (24-29)
[2023-08-16 11:07] LABS: VBG OXYGEN SATURATION 96.5 % (60-80)
[2023-08-16 11:11] LABS: KETONES, SERUM (ACETEST) SMALL (NEGATIVE)
[2023-08-16 11:30] LABS: ALBUMIN 4.7 g/dL (3.2-5.5); ALBUMIN/GLOBULIN RATIO 1.8 (1.0-2.2); ALKALINE PHOSPHATASE 104 IU/L (42-121); ALT ALANINE AMINOTRANSFERASE 12 IU/L (10-60); AST ASPARTATE AMINOTRANSFERASE 14 IU/L (10-42); BILIRUBIN,TOTAL 0.7 mg/dL (0.2-1.0); BUN - BLOOD UREA NITROGEN 26 mg/dL (6-20); CALCIUM 9.9 mg/dL (8.5-10.3); CARBON DIOXIDE - CO2 21 mmol/L (21-32); CHLORIDE 100 mmol/L (101-111); CREATININE 0.8 mg/dL (0.6-1.3); GFR - MDRD 85 (>89); GLUCOSE 196 mg/dL (74-104); LIPASE < 10 U/L (11-82); POTASSIUM 3.6 mmol/L (3.5-4.5); SODIUM 142 mmol/L (135-145); TOTAL PROTEIN 7.3 g/dL (6.4-8.9)
[2023-08-16] MEDS: DROPERIDOL 5 MG/2 ML VIAL IVP STA (11:43)
[2023-08-16] MEDS: ONDANSETRON 4 MG/2 ML VIAL IVP STA (11:44)
[2023-08-16] MEDS: SODIUM CHLORIDE 0.9% 1,000 ML IV STA ×2 (11:44→12:58)
[2023-08-16] MEDS: HYDROmorphone 0.5 MG/0.5 ML SYRINGE IVP STA (12:25)
[2023-08-16 12:26] VITALS: O2SAT 100
[2023-08-16] MEDS: METOCLOPRAMIDE 10 MG/2 ML VIAL IVP STA (12:35)
[2023-08-16 13:06] LABS: BILIRUBIN,URINE SMALL (NEGATIVE); GLUCOSE, URINE (UA) 500 mg/dL (NEGATIVE); KETONES,URINE (UA) >=80 mg/dL (NEGATIVE); LEUKOCYTE ESTERASE, URINE NEGATIVE (NEGATIVE); NITRITE,URINE NEGATIVE (NEGATIVE); OCCULT BLOOD,URINE NEGATIVE (NEGATIVE); PROTEIN,URINE TRACE mg/dL (NEGATIVE); UROBILINOGEN,URINE 0.2 (NORMAL) E.U./dL (NORMAL)
[2023-08-16 13:09] LABS: CLARITY,URINE CLEAR (CLEAR); HCG UR QUAL NEGATIVE
[2023-08-16] MEDS ORDERED: iohexoL-300 100 ML VIAL ONE (13:25)
[2023-08-16] MEDS: HYDROmorphone 1 MG/ML CARPUJECT IVP STA (13:55)
--- NOTE | 2023-08-16 14:21 | CT Report ---
PROCEDURE: Abdomen/Pelvis W INDICATIONS: diffuse abd pain / WBC 17 CONTRAST: 100ml omni 300 TECHNIQUE: After the administration of intravenous contrast, a CT scan of the abdomen and pelvis was performed. Images were recorded and evaluated at appropriate window settings. Reformats: coronal and sagittal. F or radiation dose reduction, the following was used: automated exposure control, adjustment of mA and /or kV according to patient size. COMPARISON: 05/24/2023, 04/24/2023 FINDINGS: Image quality: Diagnostic. Lower chest: Unremarkable. Liver: No solid mass. Gallbladder and biliary tree: Within normal limits. Spleen: No splenomegaly. An accessory splenule is incidentally noted along the hilum of the primary spleen. Pancreas: No pancreatic ductal dilation. Adrenals: No adrenal nodule. Kidneys and ureters: No hydronephrosis. No renal cystic lesion which requires follow up. No solid mas s. Stomach, bowel and peritoneum: Scattered areas of moderate wall thickening can be seen involving the colon. No dilated loops of small bowel are seen. No bowel distension. No pathologic free fluid. Postoperative change of the right lower quadrant can b e seen. Prior appendectomy is suspected. Lymph nodes: No central or retroperitoneal adenopathy. Vessels: No infrarenal aortic aneurysm. PELVIS Reproductive organs: The uterus demonstrates an unremarkable appearance for age. No adnexal masses ar e seen. An IUD is seen at the expected location. Bladder: No abnormal wall thickening, accounting for underdistention. Pelvic lymph nodes: No pelvic adenopathy by size criteria. Bones: No aggressive osseous abnormality. Other: No significant ventral or inguinal hernia. IMPRESSION: Scattered areas of moderate wall thickening can be seen involving the colon. Colitis is suspected. Pl ease correlate with potential infectious and inflammatory causes of colitis. Additional findings: Accessory splenule Apparent prior appendectomy IUD Reviewed by: Andrei Wilson MD on 08/16/2023 1:19 PM ROSENDO Approved by: Andrei Wilson MD on 08/16/2023 1:19 PM ROSENDO Station ID: [id number]
--- NOTE | 2023-08-16 14:43 | ED Physician Documentation ---
PD HPI ABD PAIN - Stated complaint Stated Complaint: BACK PX, NAUSEA - Chief complaint Chief Complaint: Back Pain - History obtained from History obtained from: Patient - Additional information Additional information: Patient is a 28-year-old female with a history of diabetes, gastroparesis, cannabis use presenting for evaluation of nausea, vomiting, abdominal and back pain that has been present since . She has Reglan at home which has not relieved her symptoms. She has had prior episodes similar to this and is awaiting GI evaluation at the [facility] at the end of August. D enies concerns for . Denies blood in emesis. Denies fever, chest pain or shortness of air. 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: Other : None, Other HEENT: None Psych: Anxiety, Panic attacks Musculoskeletal: None Derm: None - Past Surgical History Past Surgical History: Yes General: Appendectomy - Present Medications Home Medications: Ambulatory Orders Medication Instructions Recorded Confirmed Insulin Lispro [Humalog] 52 - 56 units SUBQ DAILY 08/12/20 07/13/23 Metoclopramide [Reglan] 5 mg PO TID #90 tab 09/19/22 07/13/23 Famotidine [Pepcid] 20 mg PO DAILY #30 tablet 05/24/23 07/13/23 Omeprazole Magnesium 20 mg PO DAILY 05/24/23 07/13/23 Ondansetron Odt [Zofran] 4 mg TL Q6H PRN #20 tablet 05/24/23 07/13/23 - Allergies Allergies/Adverse Reactions: Allergies Allergy/AdvReac Type Severity Reaction Status Date / Time ketorolac [From Toradol] Allergy Rash Verified 08/16/23 09:52 Milk Containing Products Allergy Unknown Verified 08/16/23 09:52 (Dairy) [Milk Containing Products] - Social History Does the pt smoke?: No Smoking Status: Never smoker Does the pt drink ETOH?: No Does the pt have substance abuse?: No - Immunizations Immunizations are current?: Yes - POLST Patient has POLST: No POLST Status: Full Code PD ED PE NORMAL - General General: Alert and oriented X 3, Well developed/nourished, Other (Distress, uncomfortable appearing, moving around frequently in the bed and vomiting clear emesis) - HEENT HEENT: Atraumatic - Neck Neck: Supple, no meningeal sign - Cardiac Cardiac: RRR, Strong equal pulses - Respiratory Respiratory: No respiratory distress, Clear bilaterally - Abdomen Abdomen: Normal bowel sounds, Soft, Non distended, Other (Mild generalized abdominal tenderness) - Derm Derm: Warm and dry - Neuro Neuro: Normal speech Results - Vitals Vitals: Vital Signs - 24 hr 08/16/23 08/16/23 08/16/23 09:50 11:45 12:21 Temperature 36.7 C Heart Rate 130 H 90 94 Respiratory 16 18 16 Rate Blood Pressure 152/116 H 111/57 L 104/54 L O2 Saturation 99 98 100 08/16/23 14:49 Temperature 36.5 C Heart Rate 88 Respiratory 16 Rate Blood Pressure 106/60 O2 Saturation 100 Oxygen O2 Source Room air - Labs Labs: Laboratory Tests 08/16/23 08/16/23 08/16/23 10:49 10:49 10:49 WBC 17.4 H RBC 4.39 Hgb 11.8 L Hct 36.3 L MCV 82.7 MCH 26.9 L MCHC 32.5 RDW 16.2 H Plt Count 391 MPV 9.1 Neut # (Auto) 14.7 H Lymph # (Auto) 1.7 Harvey # (Auto) 0.8 Eos # (Auto) 0.0 Baso # (Auto) 0.1 Absolute Nucleated RBC 0.00 Nucleated RBC % 0.0 VBG pH 7.361 VBG pCO2 37.8 L VBG pO2 85.0 H VBG HCO3 20.9 L VBG Total CO2 22.1 L VBG O2 Saturation 96.5 H VBG Base Excess -4.0 L Sodium 142 Potassium 3.6 Chloride 100 L Carbon Dioxide 21 Anion Gap 21.0 H BUN 26 H Creatinine 0.8 Estimated GFR (MDRD) 85 L Glucose 196 H Calcium 9.9 Total Bilirubin 0.7 AST 14 ALT 12 Alkaline Phosphatase 104 Total Protein 7.3 Albumin 4.7 Globulin 2.6 Albumin/Globulin Ratio 1.8 Lipase < 10 L Urine Color Urine Clarity Urine pH Ur Specific [place] Urine Protein Urine Glucose (UA) Urine Ketones Urine Occult Blood Urine Nitrite Urine Bilirubin Urine Urobilinogen Ur Leukocyte Esterase Ur Microscopic Review Urine Culture Comments Urine HCG, Qual Serum Ketones SMALL H 08/16/23 12:58 WBC RBC Hgb Hct MCV MCH MCHC RDW Plt Count MPV Neut # (Auto) Lymph # (Auto) Harvey # (Auto) Eos # (Auto) Baso # (Auto) Absolute Nucleated RBC Nucleated RBC % VBG pH VBG pCO2 VBG pO2 VBG HCO3 VBG Total CO2 VBG O2 Saturation VBG Base Excess Sodium Potassium Chloride Carbon Dioxide Anion Gap BUN Creatinine Estimated GFR (MDRD) Glucose Calcium Total Bilirubin AST ALT Alkaline Phosphatase Total Protein Albumin Globulin Albumin/Globulin Ratio Lipase Urine Color DARK YELLOW Urine Clarity CLEAR Urine pH 6.0 Ur Specific [place] 1.025 Urine Protein TRACE Urine Glucose (UA) 500 H Urine Ketones >=80 H Urine Occult Blood NEGATIVE Urine Nitrite NEGATIVE Urine Bilirubin SMALL H Urine Urobilinogen 0.2 (NORMAL) Ur Leukocyte Esterase NEGATIVE Ur Microscopic Review NOT INDICATED Urine Culture Comments NOT INDICATED Urine HCG, Qual NEGATIVE Serum Ketones PD Medical Decision Making - ED course Complexity details: reviewed results, re-evaluated patient, d/w patient, d/w family ED course: Patient is a 28-year-old female with a history of gastroparesis, cannabis use, diabetes presenting for abdominal pain, back pain, nausea and vomiting. She states this feels similar to prior episodes. Initially uncomfortable appearing so IV was established and labs were checked including CBC, chemistries, urinalysis, venous blood gas and serum ketones. Significant for white count of 17, Elevated anion gap, small serum ketones. Does not appear to be in DKA with normal pH on venous blood gas. Patient was given IV fluids and droperidol with some improvement in symptoms but still reporting pain so was additionally given IV Dilaudid and Reglan with continued improvement. Given need for repeated do ses of medications to help control her symptoms and elevated white count I did feel it prudent to obtain imaging. A CT scan of the abdomen pelvis was obtained without Possible findings of colitis.No diarrhea.At this time patient's symptoms are better controlled and she feels comfortable with plan for discharge with continued treatment with medication she has at home as well as close outpatient follow-up. She is advised on return precautions. His spouse is at the bedside and also in agreement with plan. Departure - Departure Disposition: Home, Self Care Clinical Impression: Abdominal pain, Nausea and vomiting, Gastroparesis diabeticorum, Leukocytosis Condition: Stable Instructions: ED Abdominal Pain Female Non-Specific Abdominal Pain, ED Nausea Vomiting Comments: I would recommend a bland diet today and primarily sticking with liquids to make sure you can stay hydrated. Use your Reglan at home as needed for nausea and vomiting. Please continue to have close follow-up with your welfare eligibility worker as well as your primary care doctor. I would also recommend avoiding cannabis use as this may be exacerbating your condition. Return to the ER with any worsening. Discharge Date/Time: 08/16/23 14:51
[2023-08-16 14:56] VITALS: BP 106/60
[2023-08-16] MEDS: iohexoL-300 100 ML VIAL IVP ONE (15:51)
== END 2023-08-16 14:51 | disposition home or self-care (01) ==
LOC: ED 09:42
DX: E10.43 Type 1 diabetes mellitus with diabetic autonomic (poly)neuropathy (principal); K31.84 Gastroparesis; D72.829 Elevated white blood cell count, unspecified; Z79.4 Long term (current) use of insulin
CPT/HCPCS: 36415; 74177; 80053; 81003; 81025; 82009; 82803; 83690; 85025; 96374; 96375; 96376; 99284; 99285; J1170; J2765; Q9967; 81001; 87086